=== PATIENT | female | born 1945 | race Caucasian/White ===

== ENCOUNTER 2016-12-02 01:38 | Inpatient (IN) | payer OTHER ==
[2016-12-02] VITALS (12 sets, daily range): BP systolic 99–146; BP diastolic 64–80; PULSE 65–83; TEMP 36.7–36.8; O2SAT 93–99; BMI 38.0
[~2016-12-02] VITALS: Ht 167.6 cm; Wt 106.8 kg
[~2016-12-02 01:38] MED LIST: ALBU0.08 INH; ALBUAER2 INH; AMIT25TA19 PO; CLOT10TR2 MT; CYCL-259 PO; DIGO0.122 PO; MECL1TAB42 PO; OMEP20TA PO; OXGN; OXYC1TAB3 PO; OXYC40TA34 PO; PRED-301 PO; SYN150 PO; VTMD PO; [UNRECOGNIZED DRUG - CODE] PO
[2016-12-02 02:56] LABS: BASO % 0.1 %; BASO ABS # 0.02 K/uL (0-0.2); COMPLETE YES; EOS % 0.9 %; HEMATOCRIT 40.4 % (37-47); IG% 0.3 %; LYMPH % 11.2 %; LYMPH ABS # 1.56 K/uL (1.2-3.4); MEAN CELL VOLUME 89.2 fL (80-100); MEAN CORPUSCULAR HEMOGLOBIN 29.1 pg (25-34); MEAN CORPUSCULAR HGB CONC 32.7 g/dl (32-36); MEAN PLATELET VOLUME 10.1 fL (7.4-10.4); MONO % 10.7 %; NEUT % 76.8 %; PLATELET COUNT 189 K/uL (130-400); RED BLOOD COUNT 4.53 M/uL (4.2-5.4); WHITE BLOOD COUNT 13.96 K/uL (4.8-10.8)
[2016-12-02 03:02] LABS: ALT/SGPT 38 U/L (12-78); AST/SGOT 28 U/L (15-37); BLOOD UREA NITROGEN 19 mg/dl (7-18); BUN/CREATININE RATIO 11.1 (10-20); CALCIUM 9.2 mg/dl (8.5-10.1); CARBON DIOXIDE 31 mmol/L (21-32); CHLORIDE 94 mmol/L (98-107); GLUCOSE 163 mg/dl (70-99); POTASSIUM 4.7 mmol/L (3.5-5.1); SODIUM 134 mmol/L (136-145)
[2016-12-02 03:07] LABS: ALKALINE PHOSPHATASE 76 U/L (45-117)
[2016-12-02 03:37] LABS: MANUAL MICROSCOPIC REQUIRED? YES; URINE APPEARANCE CLEAR (CLEAR); URINE BILIRUBIN NEG (NEG); URINE COLOR YELLOW; URINE NITRITE NEG (NEG); URINE SPECIFIC GRAVITY 1.025 (1.000-1.030); UROBILINOGEN NEG (NEG)
[2016-12-02 03:40] LABS: REVIEW REQ? NO
[2016-12-02 03:52] LABS: URINE WBC >30 /hpf (0-5)
[2016-12-02 03:53] LABS: URINE BACTERIA 4+ (NEG); ZZUR CULT IF INDIC CLEAN CATCH YES
[2016-12-02] MEDS ORDERED: CEFTRIAXONE SOD INJ 1 GM ADDVIAL IV STA (04:12)
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
[2016-12-02] MEDS ORDERED: GLUCOSE 10 TABS/TUBE PO PRN (05:00)
[2016-12-02] MEDS ORDERED: ACETAMINOPHEN 325 MG TAB PO PRN (05:00)
[2016-12-02] MEDS ORDERED: ONDANSETRON INJ 2 MG/ML 2 ML VIAL IV PRN (05:00)
[2016-12-02] MEDS ORDERED: DEXTROSE 50% 50 ML SYR IV PRN (05:00)
[2016-12-02] MEDS ORDERED: GLUCAGON FOR INJ 1 MG VIAL SQ PRN (05:00)
[2016-12-02] MEDS ORDERED: MAGNESIUM HYDROXIDE SUSP 30 ML UDC PO PRN (05:00)
[2016-12-02] MEDS ORDERED: ALUMINUM/MAGNESIUM/SIMETH (MAALOX MAX) 30 ML UDC PO PRN (05:00)
[2016-12-02] MEDS ORDERED: GLUCOSE 40% GEL 15 GM TUBE PO PRN (05:00)
[2016-12-02] MEDS ORDERED: OXYCODONE HCL IR 5 MG TAB (IMMEDIATE RELEASE) PO PRN ×2 (05:15→05:45)
[2016-12-02] MEDS ORDERED: MECLIZINE HCL 12.5 MG TAB PO PRN (05:15)
[2016-12-02] MEDS ORDERED: ALBUTEROL HFA 8 GM INHALER INH PRN (05:15)
[2016-12-02] MEDS: LEVOTHYROXINE 175 MCG TAB PO SCH (06:45)
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
[2016-12-02] MEDS: ALBUTEROL 0.083% NEBU SOLN 3 ML VIAL INH SCH ×4 (07:46→19:50)
[2016-12-02] MEDS: SODIUM CHLORIDE 0.9% 1000ML 1,000 ML IV SCH ×2 (07:52→16:44)
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
[2016-12-02] MEDS: CYCLOBENZAPRINE HCL 10 MG TAB PO SCH ×2 (08:53→20:19)
[2016-12-02] MEDS: PANTOprazole SOD 40 MG TAB PO SCH ×2 (08:53→20:19)
[2016-12-02] MEDS: OXYCODONE HCL 20 MG TABCR (OXYCONTIN) PO SCH ×3 (08:54→20:19)
[2016-12-02] MEDS ORDERED: CHROMIUM PICOLINATE PO SCH (09:00)
[2016-12-02] MEDS ORDERED: LEVOTHYROXINE 150 MCG TAB PO SCH (09:00)
[2016-12-02] MEDS: INSULIN HUMAN REGULAR SC SCH ×4 (09:06→20:31)
[2016-12-02] MEDS: POLYETHYLENE (MIRALAX) 17 GM PACK PO PRN (09:09)
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
[2016-12-02] MEDS: DIGOXIN 0.125 MG TAB PO SCH ×2 (16:46→16:51)
[2016-12-02] MEDS: PHENAZOPYRIDINE HCL 200 MG TAB PO PRN (20:18)
[2016-12-02] MEDS: AMITRIPTYLINE HCL 25 MG TAB PO SCH (20:19)
[2016-12-02] MEDS: CARVEDILOL 3.125 MG TAB PO SCH (20:25)
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
[2016-12-03] VITALS (9 sets, daily range): BP systolic 116–154; BP diastolic 49–82; PULSE 61–78; TEMP 36.6–36.9; O2SAT 93–98
[2016-12-03] MEDS: SODIUM CHLORIDE 0.9% 1000ML 1,000 ML IV SCH ×3 (02:34→22:46)
[2016-12-03] MEDS: PHENAZOPYRIDINE HCL 200 MG TAB PO PRN ×2 (03:10→11:44)
[2016-12-03 03:40] LABS: MANUAL MICROSCOPIC REQUIRED? YES; URINE APPEARANCE CLEAR (CLEAR); URINE BILIRUBIN NEG (NEG); URINE COLOR YELLOW; URINE NITRITE POS (NEG); URINE SPECIFIC GRAVITY <= 1.005 (1.000-1.030); UROBILINOGEN NEG (NEG)
[2016-12-03 03:41] LABS: REVIEW REQ? NO
[2016-12-03 03:50] LABS: URINE BACTERIA 1+ (NEG); URINE RBC 0-4 /hpf (0-4); URINE WBC >30 /hpf (0-5)
[2016-12-03 03:52] LABS: ZZURINE CULT IF INDIC CATH YES
[2016-12-03 05:49] LABS: HEMATOCRIT 32.9 % (37-47); MEAN CELL VOLUME 91.4 fL (80-100); MEAN CORPUSCULAR HEMOGLOBIN 28.9 pg (25-34); MEAN CORPUSCULAR HGB CONC 31.6 g/dl (32-36); MEAN PLATELET VOLUME 9.9 fL (7.4-10.4); PLATELET COUNT 135 K/uL (130-400)
[2016-12-03 06:07] LABS: BUN/CREATININE RATIO 12.1 (10-20); CALCIUM 8.5 mg/dl (8.5-10.1); CREATININE 1.2 mg/dl (0.60-1.20); POTASSIUM 4.4 mmol/L (3.5-5.1)
[2016-12-03] MEDS: CEFTRIAXONE SOD INJ 1 GM in DEXTROSE 5% ADD-VANTAGE 50ML 50 ML IV SCH (06:14)
[2016-12-03] MEDS: LEVOTHYROXINE 175 MCG TAB PO SCH (06:14)
[2016-12-03] MEDS: ALBUTEROL 0.083% NEBU SOLN 3 ML VIAL INH SCH ×4 (07:32→20:29)
[2016-12-03] MEDS: INSULIN HUMAN REGULAR SC SCH ×4 (09:28→20:57)
[2016-12-03] MEDS: PANTOprazole SOD 40 MG TAB PO SCH ×2 (09:29→20:55)
[2016-12-03] MEDS: CYCLOBENZAPRINE HCL 10 MG TAB PO SCH ×2 (09:29→20:57)
[2016-12-03] MEDS: OXYCODONE HCL 20 MG TABCR (OXYCONTIN) PO SCH ×3 (09:34→20:55)
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
[2016-12-03] MEDS: DIGOXIN 0.125 MG TAB PO SCH (16:12)
[2016-12-03] MEDS: POLYETHYLENE (MIRALAX) 17 GM PACK PO PRN (20:54)
[2016-12-03] MEDS: CARVEDILOL 3.125 MG TAB PO SCH (20:56)
[2016-12-03] MEDS: AMITRIPTYLINE HCL 25 MG TAB PO SCH (20:57)
[2016-12-04] VITALS (7 sets, daily range): BP systolic 103–146; BP diastolic 49–75; PULSE 61–76; TEMP 36.5–36.7; O2SAT 93–98; Ht 167.6 cm; Wt 106.8 kg
[2016-12-04 05:43] LABS: HEMATOCRIT 33.2 % (37-47); MEAN CELL VOLUME 92.7 fL (80-100); MEAN CORPUSCULAR HEMOGLOBIN 29.1 pg (25-34); MEAN CORPUSCULAR HGB CONC 31.3 g/dl (32-36); MEAN PLATELET VOLUME 9.9 fL (7.4-10.4); PLATELET COUNT 128 K/uL (130-400); RED BLOOD COUNT 3.58 M/uL (4.2-5.4); WHITE BLOOD COUNT 3.99 K/uL (4.8-10.8)
[2016-12-04] MEDS: CEFTRIAXONE SOD INJ 1 GM in DEXTROSE 5% ADD-VANTAGE 50ML 50 ML IV SCH (05:53)
[2016-12-04] MEDS: LEVOTHYROXINE 175 MCG TAB PO SCH (05:53)
[2016-12-04 06:14] LABS: BUN/CREATININE RATIO 12.5 (10-20); CALCIUM 8.6 mg/dl (8.5-10.1); MAGNESIUM 1.7 mg/dl (1.8-2.4); POTASSIUM 4.5 mmol/L (3.5-5.1)
[2016-12-04] MEDS: ALBUTEROL 0.083% NEBU SOLN 3 ML VIAL INH SCH ×4 (07:18→19:21)
[2016-12-04] MEDS: SODIUM CHLORIDE 0.9% 1000ML 1,000 ML IV SCH (08:42)
[2016-12-04] MEDS: CYCLOBENZAPRINE HCL 10 MG TAB PO SCH ×2 (08:43→21:06)
[2016-12-04] MEDS: OXYCODONE HCL 20 MG TABCR (OXYCONTIN) PO SCH ×3 (08:43→21:06)
[2016-12-04] MEDS: INSULIN HUMAN REGULAR SC SCH ×4 (08:45→21:00)
[2016-12-04] MEDS: PANTOprazole SOD 40 MG TAB PO SCH ×2 (10:27→21:07)
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
[2016-12-04] MEDS ORDERED: MAGNESIUM OXIDE 400 MG TAB PO ONE (14:30)
[2016-12-04] MEDS: LEVOFLOXACIN / D5W 500 MG in PREMIXED IN D5W 100 ML IV SCH (14:32)
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
[2016-12-04] MEDS: DIGOXIN 0.125 MG TAB PO SCH (17:42)
[2016-12-04] MEDS: AMITRIPTYLINE HCL 25 MG TAB PO SCH (21:05)
[2016-12-04] MEDS: CARVEDILOL 3.125 MG TAB PO SCH (21:06)
[2016-12-04] MEDS: MAGNESIUM OXIDE 400 MG TAB PO SCH (21:10)
[2016-12-05] MEDS: LEVOTHYROXINE 175 MCG TAB PO SCH (06:15)
[2016-12-05 06:20] LABS: HEMATOCRIT 34.2 % (37-47); MEAN CELL VOLUME 91.4 fL (80-100); MEAN CORPUSCULAR HEMOGLOBIN 29.1 pg (25-34); MEAN CORPUSCULAR HGB CONC 31.9 g/dl (32-36); MEAN PLATELET VOLUME 10.1 fL (7.4-10.4); PLATELET COUNT 152 K/uL (130-400); RED BLOOD COUNT 3.74 M/uL (4.2-5.4); WHITE BLOOD COUNT 3.66 K/uL (4.8-10.8)
[2016-12-05 07:10] LABS: CALCIUM 8.7 mg/dl (8.5-10.1); CREATININE 0.98 mg/dl (0.60-1.20); MAGNESIUM 1.6 mg/dl (1.8-2.4); POTASSIUM 3.9 mmol/L (3.5-5.1)
[2016-12-05 07:26] VITALS: PULSE 71; O2SAT 94
[2016-12-05] MEDS: ALBUTEROL 0.083% NEBU SOLN 3 ML VIAL INH SCH ×4 (07:26→19:53)
[2016-12-05 08:15] VITALS: BP 125/74; PULSE 76; TEMP 35.3; O2SAT 96
[2016-12-05] MEDS: PANTOprazole SOD 40 MG TAB PO SCH ×2 (08:22→21:04)
[2016-12-05] MEDS: MAGNESIUM OXIDE 400 MG TAB PO SCH ×2 (08:22→21:04)
[2016-12-05] MEDS: CYCLOBENZAPRINE HCL 10 MG TAB PO SCH ×2 (08:22→21:04)
[2016-12-05] MEDS: OXYCODONE HCL 20 MG TABCR (OXYCONTIN) PO SCH ×3 (08:23→21:02)
[2016-12-05] MEDS: INSULIN HUMAN REGULAR SC SCH ×4 (08:25→20:55)
[2016-12-05] MEDS ORDERED: MAGNESIUM SULFATE 1GM / D5W 1 GM in PREMIXED IN D5W 100 ML IV ONE (12:00)
[2016-12-05] MEDS: LEVOFLOXACIN / D5W 500 MG in PREMIXED IN D5W 100 ML IV SCH (14:08)
[2016-12-05 15:46] VITALS: BP 112/66; PULSE 81; TEMP 36.4; O2SAT 91
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
[2016-12-05] MEDS: NYSTATIN SUSP 500,000 U/5 ML UDC PO SCH ×2 (17:31→21:04)
[2016-12-05 19:53] VITALS: PULSE 80; O2SAT 94
[2016-12-05] MEDS: SPIRONOLACTONE 25 MG TAB PO SCH (21:04)
[2016-12-05] MEDS: AMITRIPTYLINE HCL 25 MG TAB PO SCH (21:05)
[2016-12-05] MEDS: CARVEDILOL 3.125 MG TAB PO SCH (21:05)
[2016-12-06 00:07] VITALS: BP 155/85; PULSE 85; TEMP 36.6; O2SAT 95
[2016-12-06] MEDS: LEVOTHYROXINE 175 MCG TAB PO SCH (06:23)
[2016-12-06 07:30] LABS: HEMATOCRIT 34.2 % (37-47); MEAN CELL VOLUME 90.7 fL (80-100); MEAN CORPUSCULAR HEMOGLOBIN 28.9 pg (25-34); MEAN CORPUSCULAR HGB CONC 31.9 g/dl (32-36); MEAN PLATELET VOLUME 9.5 fL (7.4-10.4); PLATELET COUNT 162 K/uL (130-400); RED BLOOD COUNT 3.77 M/uL (4.2-5.4); WHITE BLOOD COUNT 3.54 K/uL (4.8-10.8)
[2016-12-06 07:49] VITALS: BP 111/60; PULSE 72; TEMP 36.6; O2SAT 94
[2016-12-06 07:50] VITALS: PULSE 75; O2SAT 94
[2016-12-06] MEDS: ALBUTEROL 0.083% NEBU SOLN 3 ML VIAL INH SCH ×3 (07:50→15:27)
[2016-12-06 08:02] LABS: BUN/CREATININE RATIO 14.3 (10-20); CREATININE 0.92 mg/dl (0.60-1.20); MAGNESIUM 1.8 mg/dl (1.8-2.4); POTASSIUM 3.9 mmol/L (3.5-5.1)
[2016-12-06] MEDS: CYCLOBENZAPRINE HCL 10 MG TAB PO SCH ×2 (08:38→21:11)
[2016-12-06] MEDS: MAGNESIUM OXIDE 400 MG TAB PO SCH ×2 (08:38→21:11)
[2016-12-06] MEDS: OXYCODONE HCL 20 MG TABCR (OXYCONTIN) PO SCH ×3 (08:38→21:12)
[2016-12-06] MEDS: NYSTATIN SUSP 500,000 U/5 ML UDC PO SCH ×4 (08:39→21:00)
[2016-12-06] MEDS: PANTOprazole SOD 40 MG TAB PO SCH ×2 (08:39→21:11)
[2016-12-06] MEDS: SPIRONOLACTONE 25 MG TAB PO SCH ×2 (08:39→21:11)
[2016-12-06] MEDS: INSULIN HUMAN REGULAR SC SCH ×4 (08:40→21:00)
[2016-12-06] MEDS ORDERED: LEVOFLOXACIN 500 MG TAB PO SCH (11:00)
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
[2016-12-06] MEDS ORDERED: LVQ500 PO ×2 (14:47→15:00)
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
[2016-12-06 16:55] VITALS: BP 111/60; PULSE 75; TEMP 36.6; O2SAT 94
[2016-12-06 20:02] VITALS: BP 116/75; PULSE 68; TEMP 36.7; O2SAT 97
[2016-12-06] MEDS: AMITRIPTYLINE HCL 25 MG TAB PO SCH (21:11)
[2016-12-06] MEDS: CARVEDILOL 3.125 MG TAB PO SCH (21:11)
[2017-02-14] MEDS ORDERED: PRMVC TOP (05:02)
[2017-02-14] MEDS ORDERED: MAGN400T6 PO (05:09)
[2017-02-14] MEDS ORDERED: OXYC60TA8 PO (05:12)
[2017-02-14] MEDS ORDERED: SPIR25TA PO (05:20)
[2017-02-14] MEDS ORDERED: METF500T PO (05:28)
[2017-02-14] MEDS ORDERED: OXYC-164 PO (16:35)
[2017-02-14] MEDS ORDERED: LEVO175T PO (16:35)
[2017-02-14] MEDS ORDERED: CARV3.122 PO (16:35)
[2017-02-14] MEDS ORDERED: FRS/40 PO (16:35)
[2017-02-14] MEDS ORDERED: POTA10CA28 PO (16:35)
== END 2016-12-06 22:00 | disposition home or self-care (01) | DRG 690 ==
LOC: ENRESERVDT → ENRESERVTM → C.EDB 01:39 → C.MED 04:53
PROVIDERS: ADMIT Hospitalist; ATTEND Internal Medicine
DX: N39.0 Urinary tract infection, site not specified (principal); N17.9 Acute kidney failure, unspecified; E87.1 Hypo-osmolality and hyponatremia; B37.0 Candidal stomatitis; J44.9 Chronic obstructive pulmonary disease, unspecified; M19.90 Unspecified osteoarthritis, unspecified site; I12.9 Hypertensive chronic kidney disease with stage 1 through stage 4 chronic kidney disease, or unspecified chronic kidney disease; E03.9 Hypothyroidism, unspecified; D72.829 Elevated white blood cell count, unspecified; Z88.6 Allergy status to analgesic agent; Z91.041 Radiographic dye allergy status; Z88.0 Allergy status to penicillin; Z88.2 Allergy status to sulfonamides; Z91.048 Other nonmedicinal substance allergy status; Z88.5 Allergy status to narcotic agent; Z99.81 Dependence on supplemental oxygen; Z79.84 Long term (current) use of oral hypoglycemic drugs; F41.9 Anxiety disorder, unspecified; R30.0 Dysuria; R35.0 Frequency of micturition; R32 Unspecified urinary incontinence; N81.4 Uterovaginal prolapse, unspecified; E11.9 Type 2 diabetes mellitus without complications; B96.5 Pseudomonas (aeruginosa) (mallei) (pseudomallei) as the cause of diseases classified elsewhere; E11.22 Type 2 diabetes mellitus with diabetic chronic kidney disease; N18.3 Chronic kidney disease, stage 3 (moderate); N81.10 Cystocele, unspecified; S80.11XA Contusion of right lower leg, initial encounter; V47.5XXA Car driver injured in collision with fixed or stationary object in traffic accident, initial encounter; Y92.410 Unspecified street and highway as the place of occurrence of the external cause

== ENCOUNTER 2017-01-04 18:14 | Observation (INO) | payer OTHER ==
[~2017-01-04] VITALS: Ht 167.6 cm; Wt 100.0 kg
[~2017-01-04 18:14] MED LIST changes: -AMIT25TA19 PO; -DIGO0.122 PO; +LVQ500 PO; -OMEP20TA PO; -OXYC1TAB3 PO; -OXYC40TA34 PO; -PRED-301 PO; -SYN150 PO; -[UNRECOGNIZED DRUG - CODE] PO
[2017-01-04] MEDS ORDERED: SODIUM CHLORIDE 0.9% 1000ML 1,000 ML IV STA (19:58)
[2017-01-04] MEDS ORDERED: SODIUM CHLORIDE 0.9% 1000ML 1,000 ML IV ONE (19:58)
[2017-01-04] MEDS ORDERED: ONDANSETRON INJ 2 MG/ML 2 ML VIAL IV STA (19:58)
--- NOTE | 2017-01-04 20:05 | EMERGENCY ROOM VISIT NOTE ---
History Report prepared by Gómez: Naa Ruiz Under the Supervision of: Dr. Joon Rojas M.D. First contact with patient: 19:53 Chief Complaint: VOMITING Stated Complaint: ALLERGRIC REACTION Nursing Triage Summary: Pt placed on keflex on Saturday Pt c/o vomiting and dizzy History of Present Illness The patient is a 71 year old female who presents to the Emergency Room with complaints of worsening vomiting and dizziness with onset six days ago. The patient has a history of a cystocele and has had persistent UTIs. Six days ago, the patient was placed on Keflex. Starting three days ago, she has been vomiting and has been dizzy and incontinent of urine. The patient stopped the antibiotic three days ago. Yesterday, the patient started to feel better. She was prescribed another antibiotic, Macrobid, and started to feel ill again. She has back pain. She denies diarrhea, fevers, a rash, chest pain. Additionally, the patient wears oxygen at all times. Source of History: patient, family Onset: six days ago Position: abdomen Quality: other (vomiting and dizziness) Timing: worsening Associated Symptoms: No chest pain, No diarrhea, No fevers, No rash Note: She has been dizzy and incontinent of urine. Review of Systems See HPI for pertinent positives & negatives. A total of 10 systems reviewed and were otherwise negative. Past Medical & Surgical Medical Problems: (1) Abdominal pain (2) Asthma (3) COPD (chronic obstructive pulmonary disease) Old medical records were reviewed. Nurse's notes were reviewed and I agree with. Family History Diabetes mellitus FH: heart disease FHx: cancer Social History Smoking Status: Never Smoker Drug Use: none Marital Status: Occupation Status: retired Current/Historical Medications Scheduled Albuterol (Ventolin), 2 PUFFS INH QID PRN Albuterol Soln (Proventil 0.083% 2.5MG/3ML), 2.5 MG INH QID Carvedilol (Coreg), 2 TAB PO HS Clotrimazole (Mycelex), 10 MG MT 5XD Cyclobenzaprine Hcl (Flexeril), 10 MG PO BID Ergocalciferol (Vitamin D), 1 TAB PO 2XWK Estrogens, Conjugated (Premarin), 1 APPLN TOP 3XWK Levofloxacin (Levofloxacin), 500 MG PO DAILY@11 Levothyroxine Sodium (Synthroid), 1 TAB PO DAILY Magnesium Oxide (Mag-Ox), 400 MG PO DAILY Meclizine Hcl (Meclizine Hcl), 25 PO TID Metformin Hcl (Glucophage), 500 MG PO BID Ondasetron Odt (Zofran Odt), 4 MG SL Q6H Oxycodone Hcl (Oxycontin), 60 MG PO Q12 Oxygen (Oxygen), 2 LITERS NA CONTINOUS Potassium Chloride (Micro-K Ext Rel), 10 MEQ PO DAILY Spironolactone (Aldactone), 25 MG PO BID Scheduled PRN Furosemide (Lasix), 40 MG PO DAILY PRN for edema Oxycodone Hcl (Oxycodone Hcl), 1 TAB PO Q4H PRN for Pain Allergies Coded Allergies: Aspartame (Verified Allergy, Intermediate, ???, 11/16/15) Ipratropium (Verified Allergy, Mild, SHORTNESS OF BREATH, 11/16/15) Povidone (Verified Allergy, Mild, BLISTER WITH TAPE, 11/16/15) Aspirin (Verified Allergy, Unknown, 11/16/15) Chlorhexidine (Verified Allergy, Unknown, 11/16/15) Iodinated Contrast Media (Verified Allergy, Unknown, -, 11/16/15) Meperidine (Verified Allergy, Unknown, 11/16/15) Morphine (Verified Allergy, Unknown, 11/16/15) NSAIDs (Verified Allergy, Unknown, -, 11/16/15) Penicillins (Verified Allergy, Unknown, 11/16/15) Sulfa Drugs (Verified Allergy, Unknown, 11/16/15) Adhesives (Verified Adverse Reaction, Mild, BLISTERS WITH TAPE, 11/16/15) Physical Exam Vital Signs Date Time Temp Pulse Resp B/P Pulse Ox O2 Delivery O2 Flow Rate FiO2 01/05/17 02:38 77 20 118/57 97 Nasal Cannula 4.0 01/05/17 01:42 71 20 120/51 97 Nasal Cannula 4.0 01/04/17 23:57 72 20 125/70 99 Nasal Cannula 4.0 01/04/17 22:27 74 20 101/57 96 01/04/17 20:55 78 20 117/70 96 01/04/17 18:34 37.4 97 18 119/60 91 Nasal Cannula 3.0 Physical Exam General: Non ill appearing older female in no acute distress. HEENT: Normal cephalic atraumatic. Pupils are equal round and reactive to light. Sclerae anicteric. Extraocular movements are intact. Oropharynx is pink with moist mucous membranes. No swelling of the mouth lips or tongue. Neck: Supple with a midline trachea. No meningeal signs or stiffness, no JVD or bruits. No Stridor. Chest: Clear to auscultation bilaterally. No wheezes or rhonchi. No increased work of breathing. Heart: regular rate and rhythm. Abdomen: Soft nontender, nondistended without rebound guarding or rigidity. Extremities: No cyanosis clubbing or edema. No calf tenderness or assymetry Spine/Back. Non tender to palpation. No CVA tenderness Skin: Good turgor without rashes. Neurologic exam: Cranial nerves two through 12 are intact. Motor and sensation are intact and symmetrical throughout. Medical Decision & Procedures ER Provider Diagnostic Interpretation: X-ray results as stated below per interpretation by me and the radiologist. CT results as stated below per my review and radiologist interpretation: CHEST ONE VIEW PORTABLE CLINICAL HISTORY: CHEST PAIN dyspnea COMPARISON STUDY: 12/02/2016 FINDINGS: Chronic left perihilar fibrotic scarring. Chronic interstitial change medial right base. Baseline emphysematous change. IMPRESSION: Emphysematous and chronic fibrotic change. No acute process. Electronically signed by: Massimo Petit M.D. 01/04/2017 8:25 PM Dictated Date/Time: 01/04/2017 8:[address] Abdomen and Pelvis: Comparison CT a/p 12/02/2016 No evidence of bowel obstruction. No free air. No morphologic evidence of cirrhosis. Circumferential bladder wall thickening, slight asymmetric anteriorly with pericystic fat stranding. Correlate for cystitis. Recommend cystoscopy or imaging follow-up to exclude underlying lesion. Colonic diverticulosis without evidence of diverticulitis. Appendix is not seen. No right lower quadrant inflammatory changes to suggest appendicitis. Hepatic steatosis. Gallbladder is surgically absent. Fatty atrophy of the pancreas. Small hiatal hernia. Radiologist: Gulshan Palmer MD. Laboratory Results 01/04/17 20:30 Red Blood Count 4.38, Mean Corpuscular Volume 86.5, Mean Corpuscular Hemoglobin 28.8, Mean Corpuscular Hemoglobin Concent 33.2, Mean Platelet Volume 10.5, Neutrophils (%) (Auto) 89.3, Lymphocytes (%) (Auto) 1.9, Monocytes (%) (Auto) 8.5, Eosinophils (%) (Auto) 0.1, Basophils (%) (Auto) 0.0, Neutrophils # (Auto) 9.45, Lymphocytes # (Auto) 0.20, Monocytes # (Auto) 0.90, Eosinophils # (Auto) 0.01, Basophils # (Auto) 0.00 01/04/17 20:30 Test 01/04/17 18:38 01/04/17 20:30 01/04/17 20:37 01/04/17 21:53 Bedside Glucose 196 mg/dl (70-90) White Blood Count 10.58 K/uL (4.8-10.8) Red Blood Count 4.38 M/uL (4.2-5.4) Hemoglobin 12.6 g/dL (12.0-16.0) Hematocrit 37.9 % (37-47) Mean Corpuscular Volume 86.5 fL (80-100) Mean Corpuscular Hemoglobin 28.8 pg (25-34) Mean Corpuscular Hemoglobin Concent 33.2 g/dl (32-36) Platelet Count 129 K/uL (130-400) Mean Platelet Volume 10.5 fL (7.4-10.4) Neutrophils (%) (Auto) 89.3 % Lymphocytes (%) (Auto) 1.9 % Monocytes (%) (Auto) 8.5 % Eosinophils (%) (Auto) 0.1 % Basophils (%) (Auto) 0.0 % Neutrophils # (Auto) 9.45 K/uL (1.4-6.5) Lymphocytes # (Auto) 0.20 K/uL (1.2-3.4) Monocytes # (Auto) 0.90 K/uL (0.11-0.59) Eosinophils # (Auto) 0.01 K/uL (0-0.5) Basophils # (Auto) 0.00 K/uL (0-0.2) RDW Standard Deviation 40.9 fL (36.4-46.3) RDW Coefficient of Variation 12.8 % (11.5-14.5) Immature Granulocyte % (Auto) 0.2 % Immature Granulocyte # (Auto) 0.02 K/uL (0.00-0.02) Anion Gap 9.0 mmol/L (3-11) Estimated GFR () 53.4 Estimated GFR (Non- 46.1 BUN/Creatinine Ratio 13.5 (10-20) Calcium Level 9.2 mg/dl (8.5-10.1) Magnesium Level 1.5 mg/dl (1.8-2.4) Total Bilirubin 0.7 mg/dl (0.2-1) Direct Bilirubin 0.2 mg/dl (0-0.2) Aspartate Amino Transf (AST/SGOT) 315 U/L (15-37) Alanine Aminotransferase (ALT/SGPT) 225 U/L (12-78) Alkaline Phosphatase 141 U/L (45-117) Total Creatine Kinase 34 U/L (26-192) Creatine Kinase MB 0.5 ng/ml (0.5-3.6) Creatine Kinase MB Ratio 1.5 (0-3.0) Total Protein 7.0 gm/dl (6.4-8.2) Albumin 3.4 gm/dl (3.4-5.0) Lipase 56 U/L (73-393) Bedside Troponin I 0.000 ng/ml (0-0.045) Urine Color DK YELLOW Urine Appearance CLEAR (CLEAR) Urine pH 5.5 (4.5-7.5) Urine Specific [place] 1.017 (1.000-1.030) Urine Protein NEG (NEG) Urine Glucose (UA) NEG (NEG) Urine Ketones NEG (NEG) Urine Occult Blood NEG (NEG) Urine Nitrite NEG (NEG) Urine Bilirubin NEG (NEG) Urine Urobilinogen NEG (NEG) Urine Leukocyte Esterase NEG (NEG) Laboratory studies as stated above per my review. Medications Administered Medications (Trade) Dose Ordered Sig/John Route Start Time Stop Time Status Last Admin Dose Admin Sodium Chloride 1,000 ml @ 999 mls/hr Q1H1M STAT IV 01/04/17 19:58 01/04/17 20:58 DC 01/04/17 19:58 999 MLS/HR Sodium Chloride (Nss 1000ml) 1,000 ml @ 150 mls/hr Q6H40M ONCE IV 01/04/17 19:58 01/05/17 02:37 DC 01/04/17 19:58 150 MLS/HR Ondansetron HCl (Zofran Inj) 4 mg NOW STAT IV 01/04/17 19:58 01/04/17 20:04 DC 01/04/17 19:58 4 MG ECG Indication: vomiting Rate (beats per minute): 83 Rhythm: normal sinus Findings: no acute ischemic change, left axis deviation, no ectopy Comparison ECG Date: 11/27/2016 Change: no significant change ED Course 1955: Past medical records reviewed. The patient was evaluated in room C7, and a complete history and physical examination were performed. 1957: Zofran 4 mg IV, Sodium Chloride 1000 ml @ 150 mls/hr IV, Sodium Chloride 1000 ml @ 999 mls/hr IV 2306: I reevaluated the patient; her LFTs are mildly elevated. A CT will be obtained. 0003: Zofran 4 mg IV 0010: Upon reevaluation, the patient is doing well. I discussed the results and treatment plan with the patient. She verbalized agreement of the treatment plan. The patient is ready for discharge. 0015: Zofran 1 homepack PO 0044: I reevaluated the patient. She states she feels nauseated when she walks and feels too ill to go home. 0050: I discussed the case with Dr. Strauss ([facility]); he will further evaluate the patient. Medical Decision Differentials include, but are not limited to; dehydration, UTI, medication side effect, pneumonia, electrolyte or metabolic abnormality, acute coronary syndrome. This patient comes in as described above. She was placed room C7. She is here for treatment and evaluation of nausea. She may have some urinary symptoms as well. She's been treated for UTI and they've switched her with antibiotics. She has nausea and vomiting which she relates to the antibiotics. IV access established, EKG was obtained. Chest x-ray multiple blood tests was obtained. Chest x-ray does not suggest congestive heart failure, pneumonia or pneumothorax. EKG does not suggest acute coronary syndrome or arrhythmia. Troponin is not elevated. She's had no white count or fever to suggest infection. She's no significant electrolyte or metabolic abnormalities. Her LFTs are mildly elevated . I did a CT of her abdomen and there is no acute findings to explain her symptoms. She does have some irritation of her bladder potentially although her urinalysis thus far looks negative. She was hydrated with IV normal saline and was given IV Zofran. She was feeling better until she got up she felt nauseated and have some cramps in her bladder. She does not feel she can go home. I have consulted Dr. Richardson who saw the patient ER will admit her for further treatment and evaluation Consults Time Called: 47 Consulting Physician: Dr. Strauss ([facility]) Returned Call: 49 I discussed the case with Dr. Strauss ([facility]); he will further evaluate the patient. Impression Primary Impression: Vomiting Additional Impression: Bladder spasm Scribe Attestation The scribe's documentation has been prepared under my direction and personally reviewed by me in its entirety. I confirm that the note above accurately reflects all work, treatment, procedures, and medical decision making performed by me. Departure Information Dispostion Being Evaluated By Hospitalist Prescriptions Ondasetron Odt (ZOFRAN ODT) 4 Mg Tab 4 MG SL Q6H for Nausea, #14 TAB Prov: Joon Rojas M.D. 01/05/17 Referrals No Doctor, Assigned (PCP) Patient Instructions [facility] Problem Qualifiers
--- NOTE | 2017-01-04 20:26 | DIAGNOSTIC IMAGING REPORT ---
CHEST ONE VIEW PORTABLE CLINICAL HISTORY: CHEST PAIN dyspnea COMPARISON STUDY: 12/02/2016 FINDINGS: Chronic left perihilar fibrotic scarring. Chronic interstitial change medial right base. Baseline emphysematous change. IMPRESSION: Emphysematous and chronic fibrotic change. No acute process. Electronically signed by: Massimo Petit M.D. 01/04/2017 8:25 PM Dictated Date/Time: 01/04/2017 8:23 PM
[2017-01-04 20:43] LABS: COMPLETE YES; EOS % 0.1 %; HEMATOCRIT 37.9 % (37-47); IG% 0.2 %; LYMPH % 1.9 %; MEAN CELL VOLUME 86.5 fL (80-100); MEAN CORPUSCULAR HEMOGLOBIN 28.8 pg (25-34); MEAN CORPUSCULAR HGB CONC 33.2 g/dl (32-36); MEAN PLATELET VOLUME 10.5 fL (7.4-10.4); MONO % 8.5 %; NEUT % 89.3 %; PLATELET COUNT 129 K/uL (130-400); RED BLOOD COUNT 4.38 M/uL (4.2-5.4); WHITE BLOOD COUNT 10.58 K/uL (4.8-10.8)
[2017-01-04 21:11] LABS: ALT/SGPT 225 U/L (12-78); BLOOD UREA NITROGEN 16 mg/dl (7-18); BUN/CREATININE RATIO 13.5 (10-20); CALCIUM 9.2 mg/dl (8.5-10.1); CARBON DIOXIDE 30 mmol/L (21-32); CHLORIDE 96 mmol/L (98-107); GLUCOSE 195 mg/dl (70-99); POTASSIUM 4.1 mmol/L (3.5-5.1); SODIUM 135 mmol/L (136-145)
[2017-01-04 21:16] LABS: ALKALINE PHOSPHATASE 141 U/L (45-117); AST/SGOT 315 U/L (15-37); CKMB/CK RATIO 1.5 (0-3.0)
[2017-01-04 22:11] LABS: URINE APPEARANCE CLEAR (CLEAR); URINE BILIRUBIN NEG (NEG); URINE COLOR DK YELLOW; URINE NITRITE NEG (NEG); URINE PH 5.5 (4.5-7.5); URINE SPECIFIC GRAVITY 1.017 (1.000-1.030); UROBILINOGEN NEG (NEG)
[2017-01-04 22:17] LABS: MANUAL MICROSCOPIC REQUIRED? NO; REVIEW REQ? NO
[2017-01-05] MEDS ORDERED: ONDANSETRON INJ 2 MG/ML 2 ML VIAL IV STA (00:03)
[2017-01-05] MEDS ORDERED: ONDA4TAB10 SL (00:12)
[2017-01-05] MEDS ORDERED: ONDANSETRON HOME PACK 4MG OD TAB PO ONE (00:15)
[2017-01-05] MEDS ORDERED: TRAMADOL HCL 50 MG TAB PO SCH (01:43)
[2017-01-05] MEDS ORDERED: TRAMADOL HCL 50 MG TAB PO PRN (01:45)
[2017-01-05] MEDS ORDERED: IV FLUIDS COMPLETED PRN (02:00)
[2017-01-05] MEDS ORDERED: CARVEDILOL 3.125 MG TAB PO SCH ×2 (02:06→21:00)
[2017-01-05] MEDS ORDERED: HYDROmorphone INJ 0.5 MG/0.5 ML SYR IV PRN (02:15)
[2017-01-05] MEDS ORDERED: DEXTROSE 50% 50 ML SYR IV PRN (02:15)
[2017-01-05] MEDS ORDERED: GLUCAGON FOR INJ 1 MG VIAL SQ PRN (02:15)
[2017-01-05] MEDS ORDERED: SODIUM CHLORIDE 0.9% 1000ML 1,000 ML IV ONE (02:15)
[2017-01-05] MEDS ORDERED: PROMETHAZINE HCL INJ 12.5 MG in SODIUM CHLORIDE 0.9% 50ML 50 ML IV PRN (02:15)
[2017-01-05] MEDS ORDERED: ACETAMINOPHEN 325 MG TAB PO PRN (02:15)
[2017-01-05] MEDS ORDERED: MECLIZINE HCL 12.5 MG TAB PO PRN (02:15)
[2017-01-05] MEDS ORDERED: LORAZEPAM 2 MG/ML 1 ML VIAL IV PRN (02:15)
[2017-01-05] MEDS ORDERED: GLUCOSE 40% GEL 15 GM TUBE PO PRN (02:15)
[2017-01-05] MEDS ORDERED: LEVALBUTEROL/IPRATROPIUM NEB INH PRN (02:15)
[2017-01-05] MEDS ORDERED: ONDANSETRON INJ 2 MG/ML 2 ML VIAL IV PRN (02:15)
[2017-01-05] MEDS ORDERED: OXYCODONE HCL IR 5 MG TAB (IMMEDIATE RELEASE) PO PRN (02:15)
[2017-01-05] MEDS ORDERED: GLUCOSE 10 TABS/TUBE PO PRN (02:15)
[2017-01-05] MEDS ORDERED: POLYETHYLENE (MIRALAX) 17 GM PACK PO PRN (02:30)
[2017-01-05] MEDS ORDERED: MAGNESIUM SULFATE 1GM / D5W 1 GM BAG IV SCH (02:45)
[2017-01-05] MEDS ORDERED: LEVALBUTEROL/IPRATROPIUM NEB INH SCH (03:00)
[2017-01-05 03:13] VITALS: BP 126/76; PULSE 73; TEMP 36.8; O2SAT 100
[2017-01-05] MEDS: LEVALBUTEROL 1.25MG/3ML NEB INH SCH ×3 (03:30→14:04)
[2017-01-05] MEDS ORDERED: POLYETHYLENE (MIRALAX) 17 GM PACK PO SCH (03:37)
[2017-01-05] MEDS ORDERED: DOCUSATE SODIUM/SENNA 50/8.6MG TAB PO ONE (03:37)
[2017-01-05] MEDS ORDERED: LORAZEPAM INJ 0.5 MG in SYRINGE 0.75 ML IV PRN (03:45)
[2017-01-05] MEDS ORDERED: LEVALBUTEROL 1.25MG/3ML NEB INH PRN (03:45)
[2017-01-05] MEDS ORDERED: INSULIN ASPART 100 UNITS/ML 3 ML PEN SC ONE (04:00)
[2017-01-05] MEDS: MAGNESIUM SULFATE 1GM / D5W 1 GM in PREMIXED IN D5W 100 ML IV SCH ×2 (04:44→05:49)
[2017-01-05] MEDS: LEVOTHYROXINE 175 MCG TAB PO SCH (05:52)
--- NOTE | 2017-01-05 06:11 | DIAGNOSTIC IMAGING REPORT ---
ABDOMEN AND PELVIS CT WITHOUT CONTRAST CT DOSE: 867.37 mGy.cm HISTORY: Pain eval for liver disease, bowel obit TECHNIQUE: Multiaxial CT images of the abdomen and pelvis were performed without contrast. COMPARISON STUDY: 12/02/2016 FINDINGS: Lung bases are clear. Fatty infiltration of liver. Prior cholecystectomy. Kidneys negative for calcification or obstruction. Fatty infiltration of pancreas. Nonobstructive bowel pattern. Nonvisualization of the appendix. No evidence for right lower quadrant inflammatory process. Mild bladder wall thickening. No free fluid within the pelvic cul-de-sac. IMPRESSION: Prior cholecystectomy. Fatty infiltration of liver. Mild bladder wall thickening. Nonobstructive bowel pattern. Electronically signed by: Massimo Petit M.D. 01/05/2017 6:09 AM Dictated Date/Time: 01/05/2017 6:07 AM
[2017-01-05] MEDS: INSULIN ASPART 100 UNITS/ML 3 ML PEN SC SCH ×4 (06:30→20:48)
[2017-01-05 07:10] LABS: BASO % 0.2 %; BASO ABS # 0.01 K/uL (0-0.2); COMPLETE YES; EOS % 2.2 %; HEMATOCRIT 33.2 % (37-47); IG% 0.2 %; LYMPH % 10.5 %; LYMPH ABS # 0.58 K/uL (1.2-3.4); MEAN CELL VOLUME 87.4 fL (80-100); MEAN CORPUSCULAR HEMOGLOBIN 28.2 pg (25-34); MEAN CORPUSCULAR HGB CONC 32.2 g/dl (32-36); MONO % 13.4 %; NEUT % 73.5 %; PLATELET COUNT 102 K/uL (130-400); WHITE BLOOD COUNT 5.52 K/uL (4.8-10.8)
[2017-01-05 07:29] VITALS: BP_SYST 111; BP_SYST 126; BP_DIAS 67; BP_DIAS 76; PULSE 59; PULSE 73; TEMP 36.5; TEMP 36.8; O2SAT 98; Ht 167.6 cm; Wt 100.0 kg
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
[2017-01-05 07:41] LABS: ALT/SGPT 158 U/L (12-78); AST/SGOT 155 U/L (15-37); BLOOD UREA NITROGEN 17 mg/dl (7-18); BUN/CREATININE RATIO 18.2 (10-20); CALCIUM 8.3 mg/dl (8.5-10.1); CARBON DIOXIDE 34 mmol/L (21-32); CHLORIDE 98 mmol/L (98-107); CREATININE 0.94 mg/dl (0.60-1.20); GLUCOSE 114 mg/dl (70-99); MAGNESIUM 2.4 mg/dl (1.8-2.4); POTASSIUM 3.7 mmol/L (3.5-5.1); SODIUM 138 mmol/L (136-145)
[2017-01-05 07:44] LABS: ALKALINE PHOSPHATASE 100 U/L (45-117)
[2017-01-05 08:00] VITALS: O2SAT 98
[2017-01-05] MEDS: NITROFURANTOIN MONOHYDRATE 100 MG CAP PO SCH ×2 (08:40→20:52)
[2017-01-05] MEDS: ONDANSETRON INJ 2 MG/ML 2 ML VIAL IV SCH ×2 (08:41→20:57)
[2017-01-05] MEDS: OXYCODONE HCL 20 MG TABCR (OXYCONTIN) PO SCH ×2 (08:46→20:51)
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
[2017-01-05] MEDS: CYCLOBENZAPRINE HCL 10 MG TAB PO PRN (15:54)
[2017-01-05 15:59] VITALS: BP 129/61; PULSE 66; TEMP 36.5; O2SAT 95
[2017-01-05] MEDS ORDERED: ALBUTEROL 0.083% NEBU SOLN 3 ML VIAL INH PRN (18:15)
--- NOTE | 2017-01-05 18:20 | Progress Note ---
Medicine Progress Note Date & Time of Visit: Jan 05, 2017 at 18:17. Subjective patient states she feels improved today compared to yesterday no abdominal pain, nausea, fever/chills no chest pain, dyspnea, palpitations, dizziness no other symptoms Objective Last 8 Hrs Date Time Temp Pulse Resp B/P Pulse Ox O2 Delivery O2 Flow Rate FiO2 01/05/17 15:59 36.5 66 20 129/61 95 Nasal Cannula 2.0 Physical Exam: General- oriented x 3, not in distress Head- atraumatic Eyes- EOMI, anicteric ENT- oropharynx clear Neck- supple, no JVD, no adenopathy Lungs- clear breath sounds bilaterally Heart- normal rate, regular rhythm; no murmurs Abdomen- normal bowel sounds, soft, nontender Extremities- no pretibial edema, no calf tenderness; peripheral pulses intact Neuro- alert, oriented x 3; no gross deficits Skin- warm & dry Laboratory Results: Last 24 Hours Test 01/04/17 18:38 01/04/17 19:58 01/04/17 20:30 01/04/17 20:37 Bedside Glucose 196 mg/dl Creatine Kinase MB Ratio 1.5 White Blood Count 10.58 K/uL Red Blood Count 4.38 M/uL Hemoglobin 12.6 g/dL Hematocrit 37.9 % Mean Corpuscular Volume 86.5 fL Mean Corpuscular Hemoglobin 28.8 pg Mean Corpuscular Hemoglobin Concent 33.2 g/dl Platelet Count 129 K/uL Mean Platelet Volume 10.5 fL Neutrophils (%) (Auto) 89.3 % Lymphocytes (%) (Auto) 1.9 % Monocytes (%) (Auto) 8.5 % Eosinophils (%) (Auto) 0.1 % Basophils (%) (Auto) 0.0 % Neutrophils # (Auto) 9.45 K/uL Lymphocytes # (Auto) 0.20 K/uL Monocytes # (Auto) 0.90 K/uL Eosinophils # (Auto) 0.01 K/uL Basophils # (Auto) 0.00 K/uL RDW Standard Deviation 40.9 fL RDW Coefficient of Variation 12.8 % Immature Granulocyte % (Auto) 0.2 % Immature Granulocyte # (Auto) 0.02 K/uL Sodium Level 135 mmol/L Potassium Level 4.1 mmol/L Chloride Level 96 mmol/L Carbon Dioxide Level 30 mmol/L Anion Gap 9.0 mmol/L Blood Urea Nitrogen 16 mg/dl Creatinine 1.20 mg/dl Estimated GFR () 53.4 Estimated GFR (Non- 46.1 BUN/Creatinine Ratio 13.5 Random Glucose 195 mg/dl Calcium Level 9.2 mg/dl Magnesium Level 1.5 mg/dl Total Bilirubin 0.7 mg/dl Direct Bilirubin 0.2 mg/dl Aspartate Amino Transf (AST/SGOT) 315 U/L Alanine Aminotransferase (ALT/SGPT) 225 U/L Alkaline Phosphatase 141 U/L Total Creatine Kinase 34 U/L Creatine Kinase MB 0.5 ng/ml Total Protein 7.0 gm/dl Albumin 3.4 gm/dl Lipase 56 U/L Bedside Troponin I 0.000 ng/ml Test 01/04/17 21:53 01/05/17 05:06 01/05/17 06:37 01/05/17 12:28 Urine Color DK YELLOW Urine Appearance CLEAR Urine pH 5.5 Urine Specific [place] 1.017 Urine Protein NEG Urine Glucose (UA) NEG Urine Ketones NEG Urine Occult Blood NEG Urine Nitrite NEG Urine Bilirubin NEG Urine Urobilinogen NEG Urine Leukocyte Esterase NEG Bedside Glucose 105 mg/dl 160 mg/dl White Blood Count 5.52 K/uL Red Blood Count 3.80 M/uL Hemoglobin 10.7 g/dL Hematocrit 33.2 % Mean Corpuscular Volume 87.4 fL Mean Corpuscular Hemoglobin 28.2 pg Mean Corpuscular Hemoglobin Concent 32.2 g/dl Platelet Count 102 K/uL Mean Platelet Volume 10.0 fL Neutrophils (%) (Auto) 73.5 % Lymphocytes (%) (Auto) 10.5 % Monocytes (%) (Auto) 13.4 % Eosinophils (%) (Auto) 2.2 % Basophils (%) (Auto) 0.2 % Neutrophils # (Auto) 4.06 K/uL Lymphocytes # (Auto) 0.58 K/uL Monocytes # (Auto) 0.74 K/uL Eosinophils # (Auto) 0.12 K/uL Basophils # (Auto) 0.01 K/uL RDW Standard Deviation 42.2 fL RDW Coefficient of Variation 13.0 % Immature Granulocyte % (Auto) 0.2 % Immature Granulocyte # (Auto) 0.01 K/uL Sodium Level 138 mmol/L Potassium Level 3.7 mmol/L Chloride Level 98 mmol/L Carbon Dioxide Level 34 mmol/L Anion Gap 6.0 mmol/L Blood Urea Nitrogen 17 mg/dl Creatinine 0.94 mg/dl Estimated GFR () 71.7 Estimated GFR (Non- 61.9 BUN/Creatinine Ratio 18.2 Random Glucose 114 mg/dl Calcium Level 8.3 mg/dl Magnesium Level 2.4 mg/dl Total Bilirubin 0.7 mg/dl Aspartate Amino Transf (AST/SGOT) 155 U/L Alanine Aminotransferase (ALT/SGPT) 158 U/L Alkaline Phosphatase 100 U/L Total Protein 5.9 gm/dl Albumin 2.9 gm/dl Globulin 3.0 gm/dl Albumin/Globulin Ratio 1.0 Test 01/05/17 16:27 Bedside Glucose 131 mg/dl Date/Time Source Procedure Growth Status 01/04/17 21:53 Urine,Catheterized Urine Culture - Preliminary NO GROWTH - LESS THAN 1,000 COLONIES/... Resulted Assessment & Plan ASSESSMENT: 1. Right-sided abdominal pain, abn LFTs ? secondary to emesis sx from urinary tract infection - CT abdomen: IMPRESSION: Prior cholecystectomy. Fatty infiltration of liver. Mild bladder wall thickening. Nonobstructive bowel pattern. - improving LFTs - monitor 2. bladder spasms 2 to complicated UTI ongoing treatment (E. coli sensitive to Macrodantin) hx cystocele - Urology consulted appreciate the recommendations - ff up urine cultures continue Macrodantin 3. hypertension, stable - continue medications 4. chronic pain narcotics 5. DM2, on oral meds, well controlled as of recent outpx HgA1c. 6. thrombocytopenia secondary to illness - monitor 7. chronic pain on narcotics 8. narcotic induced constipation DVT prophylaxis SCDS, RE thrombocytopenia. Full code. Disposition possible d/c home tomorrow Current Inpatient Medications: Current Inpatient Medications Medications (Trade) Dose Ordered Sig/John Route Start Time Stop Time Status Last Admin Dose Admin Miscellaneous (Iv Fluids Completed) 1 ea PRN PRN N/A 01/05/17 02:00 01/05/18 01:59 Acetaminophen (Tylenol Tab) 325 mg Q6H PRN PO 01/05/17 02:15 02/04/17 02:14 01/05/17 03:53 325 MG Insulin Aspart (novoLOG ASPART) SLIDING SCALE If C... ACHS SC 01/05/17 06:30 02/04/17 06:59 Glucose (Glucose 40% Gel) 15-30 GRAMS 15 GRAMS... UD PRN PO 01/05/17 02:15 02/04/17 02:14 Glucose (Glucose Chew Tab) 4-8 Tablets 4 Tabl... UD PRN PO 01/05/17 02:15 02/04/17 02:14 Dextrose (Dextrose 50% 50ML Syringe) 25-50ML OF 50% DW IV FOR... UD PRN IV 01/05/17 02:15 02/04/17 02:14 Glucagon (Glucagon Inj) 1 mg UD PRN SQ 01/05/17 02:15 02/04/17 02:14 Carvedilol (Coreg Tab) 6.25 mg HS PO 01/05/17 21:00 02/04/17 20:59 Cyclobenzaprine HCl (Flexeril Tab) 10 mg BID PRN PO 01/05/17 02:15 02/04/17 02:14 01/05/17 15:54 10 MG Levothyroxine Sodium (Synthroid Tab) 175 mcg DAILYBB PO 01/05/17 06:30 02/04/17 08:59 01/05/17 05:52 175 MCG Meclizine HCl (Antivert Tab) 12.5 mg TID PRN PO 01/05/17 02:15 02/04/17 02:14 Oxycodone HCl (Oxycontin Tab) 60 mg Q12 PO 01/05/17 09:00 01/19/17 08:59 01/05/17 08:46 60 MG Hydromorphone HCl (Dilaudid Inj) 0.5 mg Q6H PRN IV 01/05/17 02:15 01/19/17 02:14 Ondansetron HCl (Zofran Inj) 4 mg Q12H IV 01/05/17 09:00 01/06/17 08:59 Ondansetron HCl 4 mg 4 mg Q6H PRN IV 01/05/17 02:15 02/04/17 02:14 Promethazine HCl/ Sodium Chloride (Phenergan Inj/ Nss 50ml) 50.5 ml @ 204 mls/hr Q6H PRN IV 01/05/17 02:15 02/04/17 02:14 Lorazepam (Ativan Inj) 0.5 mg Q4H PRN IV 01/05/17 02:15 02/04/17 02:14 Oxycodone HCl (Roxicodone Immediate Rel Tab) pain not relieved ... Q4H PRN PO 01/05/17 02:15 01/19/17 02:14 Nitrofurantoin Macrocrystals (Macrobid Cap) 100 mg BID PO 01/05/17 09:00 01/15/17 08:59 01/05/17 08:40 100 MG Senna/Docusate Sodium (Senokot S Tab) 1 tab BID PO 01/05/17 21:00 02/04/17 20:59 Polyethylene 17 gm 17 gm DAILY PRN PO 01/05/17 02:30 02/04/17 02:29 Lorazepam/Syringe (Ativan Inj/ Syringe) 1 ml @ 1 mls/min Q4H PRN IV 01/05/17 03:45 02/04/17 03:44 Levalbuterol (Xopenex 1.25MG/ 3ML Neb) 1.25 mg Q6R INH 01/05/17 03:00 02/04/17 02:59 Levalbuterol (Xopenex 1.25MG/ 3ML Neb) 1.25 mg Q4H PRN INH 01/05/17 03:45 02/04/17 03:44
[2017-01-05] MEDS: DOCUSATE SODIUM/SENNA 50/8.6MG TAB PO SCH (20:52)
[2017-01-05 20:54] VITALS: BP 100/51; PULSE 72
[2017-01-05 23:11] VITALS: BP 109/62; PULSE 67; TEMP 36.4; O2SAT 92
[2017-01-06] VITALS: O2SAT 93
[2017-01-06] MEDS: CYCLOBENZAPRINE HCL 10 MG TAB PO PRN (04:15)
[2017-01-06] MEDS: LEVOTHYROXINE 175 MCG TAB PO SCH (06:27)
[2017-01-06] MEDS: INSULIN ASPART 100 UNITS/ML 3 ML PEN SC SCH ×2 (06:30→12:13)
[2017-01-06] MEDS: DOCUSATE SODIUM/SENNA 50/8.6MG TAB PO SCH (08:12)
[2017-01-06] MEDS: OXYCODONE HCL 20 MG TABCR (OXYCONTIN) PO SCH (08:12)
[2017-01-06] MEDS: NITROFURANTOIN MONOHYDRATE 100 MG CAP PO SCH (08:12)
[2017-01-06 08:15] LABS: ALB/GLOB RATIO 0.9 (0.9-2); BUN/CREATININE RATIO 11.6 (10-20); CALCIUM 8.4 mg/dl (8.5-10.1); CREATININE 0.88 mg/dl (0.60-1.20); POTASSIUM 3.7 mmol/L (3.5-5.1)
[2017-01-06 08:17] VITALS: BP 92/50; PULSE 65; TEMP 36.6; O2SAT 95
[2017-01-06 13:31] LABS: HEMATOCRIT 33.9 % (37-47); MEAN CELL VOLUME 89.9 fL (80-100); MEAN CORPUSCULAR HEMOGLOBIN 28.9 pg (25-34); RED BLOOD COUNT 3.77 M/uL (4.2-5.4); WHITE BLOOD COUNT 4.47 K/uL (4.8-10.8)
--- NOTE | 2017-01-06 13:34 | Progress Note ---
Medicine Progress Note Date & Time of Visit: Jan 06, 2017 at 13:27. Subjective states she feels much better today no bladder spasms or abdominal pain no chest pain, dyspnea, palpitations, dizziness no fever/chills states she is ready and would like to be discharged today Objective Last 8 Hrs Date Time Temp Pulse Resp B/P Pulse Ox O2 Delivery O2 Flow Rate FiO2 01/06/17 09:15 Room Air 01/06/17 08:17 36.6 65 20 92/50 95 Physical Exam: General- oriented x 3, not in distress Eyes- anicteric Neck- supple, no JVD Lungs- clear breath sounds bilaterally, no rales/wheezes Heart- normal rate, regular rhythm; no murmurs Abdomen- normal bowel sounds, soft, nontender Extremities- no pretibial edema, no calf tenderness Neuro- alert, oriented x 3; no gross deficits Skin- warm & dry Laboratory Results: Last 24 Hours Test 01/05/17 16:27 01/05/17 20:04 01/06/17 07:10 01/06/17 07:31 Bedside Glucose 131 mg/dl 156 mg/dl 93 mg/dl Sodium Level 138 mmol/L Potassium Level 3.7 mmol/L Chloride Level 100 mmol/L Carbon Dioxide Level 34 mmol/L Anion Gap 4.0 mmol/L Blood Urea Nitrogen 10 mg/dl Creatinine 0.88 mg/dl Est Creatinine Clear Calc Drug Dose 72.0 ml/min Estimated GFR () 77.7 Estimated GFR (Non- 67.0 BUN/Creatinine Ratio 11.6 Random Glucose 100 mg/dl Calcium Level 8.4 mg/dl Total Bilirubin 0.5 mg/dl Aspartate Amino Transf (AST/SGOT) 103 U/L Alanine Aminotransferase (ALT/SGPT) 130 U/L Alkaline Phosphatase 91 U/L Total Protein 5.8 gm/dl Albumin 2.8 gm/dl Globulin 3.0 gm/dl Albumin/Globulin Ratio 0.9 Test 01/06/17 11:26 01/06/17 12:53 Bedside Glucose 184 mg/dl 194 mg/dl Assessment & Plan 1. Right-sided abdominal pain, Abnormal LFTs ? secondary to emesis sx from urinary tract infection - CT abdomen: Prior cholecystectomy. Fatty infiltration of liver. Mild bladder wall thickening. Nonobstructive bowel pattern. - improving LFTs: AST 315--> 103 ALT 225--> 130 - abdominal pain resolved monitor LFTs as outpatient 2. Bladder spasms 2 to complicated UTI ongoing treatment (E. coli sensitive to Macrodantin) history of cystocele - Urology consulted, Dr. Perez bob catheter per patient preference ff up with [facility] Rain for further management of cystocele patient prefers to d/c Bob for now PRN Flexeril - urine culture: negative finish course of Macrodantin as previously prescribed 3. Hypertension, stable - continue medications DM2, on oral meds, well controlled as of recent outpx HgA1c. Thrombocytopenia secondary to illness - monitor. Disposition d/c home ff up with PCP in 3-5 days Current Inpatient Medications: Current Inpatient Medications Medications (Trade) Dose Ordered Sig/John Route Start Time Stop Time Status Last Admin Dose Admin Miscellaneous (Iv Fluids Completed) 1 ea PRN PRN N/A 01/05/17 02:00 01/05/18 01:59 Acetaminophen (Tylenol Tab) 325 mg Q6H PRN PO 01/05/17 02:15 02/04/17 02:14 01/05/17 03:53 325 MG Insulin Aspart (novoLOG ASPART) SLIDING SCALE If C... ACHS SC 01/05/17 06:30 02/04/17 06:59 01/06/17 12:13 1 UNITS Glucose (Glucose 40% Gel) 15-30 GRAMS 15 GRAMS... UD PRN PO 01/05/17 02:15 02/04/17 02:14 Glucose (Glucose Chew Tab) 4-8 Tablets 4 Tabl... UD PRN PO 01/05/17 02:15 02/04/17 02:14 Dextrose (Dextrose 50% 50ML Syringe) 25-50ML OF 50% DW IV FOR... UD PRN IV 01/05/17 02:15 02/04/17 02:14 Glucagon (Glucagon Inj) 1 mg UD PRN SQ 01/05/17 02:15 02/04/17 02:14 Carvedilol (Coreg Tab) 6.25 mg HS PO 01/05/17 21:00 02/04/17 20:59 01/05/17 20:56 6.25 MG Cyclobenzaprine HCl (Flexeril Tab) 10 mg BID PRN PO 01/05/17 02:15 02/04/17 02:14 01/06/17 04:15 10 MG Levothyroxine Sodium (Synthroid Tab) 175 mcg DAILYBB PO 01/05/17 06:30 02/04/17 08:59 01/06/17 06:27 175 MCG Meclizine HCl (Antivert Tab) 12.5 mg TID PRN PO 01/05/17 02:15 02/04/17 02:14 Oxycodone HCl (Oxycontin Tab) 60 mg Q12 PO 01/05/17 09:00 01/19/17 08:59 01/06/17 08:12 60 MG Hydromorphone HCl (Dilaudid Inj) 0.5 mg Q6H PRN IV 01/05/17 02:15 01/19/17 02:14 Ondansetron HCl 4 mg 4 mg Q6H PRN IV 01/05/17 02:15 02/04/17 02:14 Promethazine HCl/ Sodium Chloride (Phenergan Inj/ Nss 50ml) 50.5 ml @ 204 mls/hr Q6H PRN IV 01/05/17 02:15 02/04/17 02:14 Lorazepam (Ativan Inj) 0.5 mg Q4H PRN IV 01/05/17 02:15 02/04/17 02:14 Oxycodone HCl (Roxicodone Immediate Rel Tab) pain not relieved ... Q4H PRN PO 01/05/17 02:15 01/19/17 02:14 Nitrofurantoin Macrocrystals (Macrobid Cap) 100 mg BID PO 01/05/17 09:00 01/15/17 08:59 01/06/17 08:12 100 MG Senna/Docusate Sodium (Senokot S Tab) 1 tab BID PO 01/05/17 21:00 02/04/17 20:59 01/06/17 08:12 1 TAB Polyethylene 17 gm 17 gm DAILY PRN PO 01/05/17 02:30 02/04/17 02:29 Lorazepam/Syringe (Ativan Inj/ Syringe) 1 ml @ 1 mls/min Q4H PRN IV 01/05/17 03:45 02/04/17 03:44 Albuterol Sulfate (Ventolin 0.083% 2.5MG/3ML Neb) 2.5 mg Q4H PRN INH 01/05/17 18:15 02/04/17 18:14
[2017-01-06 13:40] LABS: MEAN CORPUSCULAR HGB CONC 32.2 g/dl (32-36)
[2017-01-06] MEDS ORDERED: CYCL10TA6 PO (13:41)
[2017-01-06] MEDS ORDERED: MECL1TAB42 PO (13:41)
--- NOTE | 2017-01-06 13:44 | Discharge Instructions ---
Discharge Instructions Date of Service Jan 06, 2017. Admission Reason for Admission: Abdominal Pain Discharge Discharge Diagnosis / Problem: ABDOMINAL PAIN FROM BLADDER SPASMS Discharge Goals Goal(s): Diagnostic testing, Therapeutic intervention Activity Recommendations Activity Limitations: resume your previous activity Driving or Machine Use: NO DRIVING WHILE TAKING FLEXERIL, OXYCONTIN, OXYCODONE . Instructions / Follow-Up Instructions / Follow-Up PLEASE REVIEW YOUR NEW MEDICATION LIST AND FOLLOW INSTRUCTIONS CAREFULLY. FINISH COURSE OF ANTIBIOTIC- MACRODANTIN PRESCRIBED PREVIOUSLY. CALL PRIMARY CARE PHYSICIAN OR UROLOGIST WITH RETURN OF SYMPTOMS. FOLLOW UP WITH DR. ROBERTS ON Saturday01/10/17 AT 10:50AM. FOLLOW UP WITH UROLOGIST SCHEDULED. Current Hospital Diet Patient's current hospital diet: Diabetes Type 2 Diet, AHA Diet (Heart Healthy) Discharge Diet Recommended Diet: AHA Diet (Heart Healthy), Diabetes Type 2 Diet Pending Studies Studies pending at discharge: no Medical Emergencies . Who to Call and When: Medical Emergencies: If at any time you feel your situation is an emergency, please call 911 immediately. . Non-Emergent Contact Non-Emergency issues call your: Primary Care Provider Call Non-Emergent contact if: you have a fever, your pain is not controlled, you have any medication questions . Past History Medical & Surgical History: (1) Urinary tract infection (2) Pancreatitis (3) COPD exacerbation (4) Abdominal pain (5) Vomiting (6) Bladder spasm (7) COPD with acute exacerbation (8) COPD (chronic obstructive pulmonary disease) (9) Asthma . "Provider Documentation" section prepared by Masood Rushing. VTE Core Measure Inpt VTE Proph given/why not?: SCD's [place] Drug Monitoring Program Search Results: patient reviewed within database, no issues identified
[2017-01-06 13:57] VITALS: BP 92/50; PULSE 65; TEMP 36.6; O2SAT 95
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
[2017-01-06 14:05] LABS: MEAN PLATELET VOLUME 11.2 fL (7.4-10.4); PLATELET COUNT 91 K/uL (130-400)
[2017-01-06 14:06] LABS: BASO % 0.2 %; BASO ABS # 0.01 K/uL (0-0.2); COMPLETE YES; EOS % 3.8 %; IG% 0.2 %; LYMPH % 8.3 %; LYMPH ABS # 0.37 K/uL (1.2-3.4); MONO % 8.5 %; PLT ESTIMATE DECREASED
[2017-02-14] MEDS ORDERED: PRMVC TOP (05:02)
[2017-02-14] MEDS ORDERED: MAGN400T6 PO (05:09)
[2017-02-14] MEDS ORDERED: OXYC60TA8 PO (05:12)
[2017-02-14] MEDS ORDERED: SPIR25TA PO (05:20)
[2017-02-14] MEDS ORDERED: METF500T PO (05:28)
[2017-02-14] MEDS ORDERED: LEVO175T PO (16:35)
[2017-02-14] MEDS ORDERED: OXYC-164 PO (16:35)
[2017-02-14] MEDS ORDERED: POTA10CA28 PO (16:35)
[2017-02-14] MEDS ORDERED: CARV3.122 PO (16:35)
[2017-02-14] MEDS ORDERED: FRS/40 PO (16:35)
== END 2017-01-06 14:25 | disposition home or self-care (01) ==
LOC: ENRESERVTM → ENRESERVDT → C.EDB 18:15 → C.MS2W 01-05 01:34
PROVIDERS: ADMIT Internal Medicine; ATTEND Internal Medicine
DX: N39.0 Urinary tract infection, site not specified (principal); B96.20 Unspecified Escherichia coli [E. coli] as the cause of diseases classified elsewhere; R33.9 Retention of urine, unspecified; N81.89 Other female genital prolapse; N81.10 Cystocele, unspecified; D69.6 Thrombocytopenia, unspecified; J44.9 Chronic obstructive pulmonary disease, unspecified; K58.9 Irritable bowel syndrome, unspecified; I10 Essential (primary) hypertension; E11.9 Type 2 diabetes mellitus without complications; Z99.81 Dependence on supplemental oxygen; Z88.2 Allergy status to sulfonamides; Z90.49 Acquired absence of other specified parts of digestive tract; Z79.82 Long term (current) use of aspirin; Z83.3 Family history of diabetes mellitus; Z82.49 Family history of ischemic heart disease and other diseases of the circulatory system

== ENCOUNTER 2017-02-14 18:50 | Emergency (ER) | payer OTHER ==
[~2017-02-14 18:50] MED LIST changes: +CARV3.122 PO; -CYCL-259 PO; +CYCL10TA6 PO; +FRS/40 PO; +LEVO175T PO; -LVQ500 PO; +MAGN400T6 PO; +METF500T PO; +ONDA4TAB10 SL; +OXYC-164 PO; +OXYC60TA8 PO; +POTA10CA28 PO; +PRMVC TOP; +SPIR25TA PO
[2017-02-14 18:56] VITALS: TEMP 36.9; Ht 165.1 cm
--- NOTE | 2017-02-14 19:21 | EMERGENCY ROOM VISIT NOTE ---
History Report prepared by Gómez: Kelin Austin Under the Supervision of: Dr. Jack Haywood D.O. First contact with patient: 19:16 Chief Complaint: URINARY SYMPTOMS Stated Complaint: SEVERE BLADDER SPASMS,PAIN,CLOUDY URINE Nursing Triage Summary: Patient reports urinary symptoms, bladder spasms, pain and burning. Patient took oxycodone and spasm pills 1 hour ago. History of Present Illness The patient is a 72 year old female who presents to the Emergency Room with complaints of worsening lower abdominal pain beginning yesterday. The patient states that she has a history of cystitis and says that she has been experiencing frequent bladder and kidney infections as a result. She notes bladder spasms and burning with urination. The patient also states she has been urinating less frequently than normal. She has a history of urinary tract infections. The patient is experiencing nausea. The patient denies fever or vomiting. She wears oxygen at home. Source of History: patient Onset: yesterday Position: abdomen (lower) Timing: worsening Associated Symptoms: + nausea, + urinary symptoms, No fevers Review of Systems See HPI for pertinent positives & negatives. A total of 10 systems reviewed and were otherwise negative. Past Medical & Surgical Medical Problems: (1) Abdominal pain (2) Asthma (3) COPD (chronic obstructive pulmonary disease) Family History Diabetes mellitus FH: heart disease FHx: cancer Social History Smoking Status: Never Smoker Smokeless Tobacco Use: No Alcohol Use: none Drug Use: none Marital Status: Occupation Status: retired Current/Historical Medications Scheduled Carvedilol (Coreg), 2 TAB PO HS Estrogens, Conjugated (Premarin), 1 APPLN TOP 3XWK Levofloxacin (Levaquin), 750 MG PO DAILY Levothyroxine Sodium (Synthroid), 1 TAB PO DAILY Magnesium Oxide (Mag-Ox), 400 MG PO DAILY Metformin Hcl (Glucophage), 500 MG PO BID Ondasetron Odt (Zofran Odt), 4 MG SL Q6H Oxycodone Hcl (Oxycontin), 60 MG PO Q12 Potassium Chloride (Micro-K Ext Rel), 10 MEQ PO DAILY Scheduled PRN Albuterol Hfa (Ventolin Hfa), 2 PUFFS INH Q6H PRN for SOB/Wheezing Albuterol Sulf (Proventil 0.083% 2.5MG/3ML), 2.5 MG INH Q4 PRN for SOB/Wheezing Cyclobenzaprine Hcl (Flexeril), 1 TAB PO BID PRN for back spasms Furosemide (Lasix), 40 MG PO DAILY PRN for edema Hyoscyamine Sulfate (Levsin), 0.125 MG PO Q4 PRN for ABD CRAMPING Meclizine Hcl (Meclizine Hcl), 25 MG PO TID PRN for Dizziness or Vertigo Oxycodone Hcl (Oxycodone Hcl), 1 TAB PO Q4H PRN for Pain Spironolactone (Aldactone), 25 MG PO BID PRN for EDEMA Allergies Coded Allergies: Aspartame (Verified Allergy, Intermediate, ???, 11/16/15) Ipratropium (Verified Allergy, Mild, SHORTNESS OF BREATH, 11/16/15) Povidone (Verified Allergy, Mild, BLISTER WITH TAPE, 11/16/15) Aspirin (Verified Allergy, Unknown, 11/16/15) Chlorhexidine (Verified Allergy, Unknown, 11/16/15) Iodinated Contrast Media (Verified Allergy, Unknown, -, 11/16/15) Meperidine (Verified Allergy, Unknown, 11/16/15) Morphine (Verified Allergy, Unknown, 11/16/15) NSAIDs (Verified Allergy, Unknown, -, 11/16/15) Penicillins (Verified Allergy, Unknown, 11/16/15) Sulfa Drugs (Verified Allergy, Unknown, 11/16/15) Adhesives (Verified Adverse Reaction, Mild, BLISTERS WITH TAPE, 11/16/15) Physical Exam Vital Signs Date Time Temp Pulse Resp B/P Pulse Ox O2 Delivery O2 Flow Rate FiO2 02/14/17 18:56 36.9 83 20 142/86 94 Nasal Cannula 3.0 Physical Exam GENERAL: Patient is awake, alert, and in no acute distress. Patient is resting comfortably and showing no signs of anxiety EYES: The conjunctivae are clear. The pupils are round and reactive. EARS, NOSE, MOUTH AND THROAT: The nose is without any evidence of any deformity. Mucous membranes are moist tongue is midline NECK: The neck is nontender and supple. RESPIRATORY: Normal respiratory effort is noted there is no evidence of wheezing rhonchi or rales CARDIOVASCULAR: Regular rate and rhythm noted there no murmurs rubs or gallops normal S1 normal S2 GASTROINTESTINAL: The abdomen is mildly distended but soft. Suprapubic tenderness to palpation. No guarding or rigidity. BACK: No midline tenderness or or step-off noted range of motion in flexion extension as well as rotation no signs of muscle spasm noted MUSCULOSKELETAL/EXTREMITIES: There is no evidence of gross deformity full range of motion is noted in the hips and shoulders SKIN: There is no obvious evidence of any rash. There are no petechiae, pallor or cyanosis noted. NEUROLOGIC: Patient is awake alert and oriented x3 Medical Decision & Procedures Laboratory Results Test 02/14/17 19:49 Urine Color ORANGE Urine Appearance TURBID (CLEAR) Urine pH 5.5 (4.5-7.5) Urine Specific [place] 1.029 (1.000-1.030) Urine Protein 3+ (NEG) Urine Glucose (UA) NEG (NEG) Urine Ketones NEG (NEG) Urine Occult Blood 3+ (NEG) Urine Nitrite NEG (NEG) Urine Bilirubin NEG (NEG) Urine Urobilinogen NEG (NEG) Urine Leukocyte Esterase LARGE (NEG) Urine WBC (Auto) >30 /hpf (0-5) Urine RBC (Auto) >30 /hpf (0-4) Urine Hyaline Casts (Auto) 10-30 /lpf (0-5) Urine Epithelial Cells (Auto) 10-20 /lpf (0-5) Urine Bacteria (Auto) 4+ (NEG) Urine Pathogenic Casts /lpf (0) Urine Yeast (Auto) PRESENT (NONE PRSENT) Laboratory results per my review. ED Course 1917: The patient was evaluated in room C9. A complete history and physical examination were performed. 2032: Levaquin Tab 750 mg PO. 2103: Upon reevaluation, the patient is hemodynamically stab;e. I discussed the results and treatment plan with the patient. She verbalized agreement of the treatment plan. She was discharged home. Medical Decision Differential diagnosis: Etiologies such as appendicitis, diverticulitis, PUD, biliary pathology, UTI, pancreatitis, obstruction, mesenteric ischemia, aortic pathology, infections, inflammatory bowel disease, renal colic, as well as others were entertained. Nursing notes reviewed. Patient's previous records from [facility] were reviewed. The patient is a 72-year-old female who has a history of prolapsed bladder who presented to the emergency department for an evaluation of dysuria and frequency. The patient states that she's had frequent urinary tract infections in the past. She cannot use a pessary it did not work with her in the past. She has not had any scheduled treatment for this cystocele this time. The patient had a cath specimen which was consistent with urinary tract infection and some hemorrhagic cystitis. She was started on Levaquin in the emergency department. I discussed the patient's laboratory results with her. She was encouraged to continue drinking plenty clear liquids and continue all medications as prescribed. She was also encouraged to follow-up with her primary care physician as soon as possible. The patient was also encouraged to continue using Tylenol as directed for pain and follow-up with her primary care physician. Otherwise she was encouraged to return to the emergency department immediately if symptoms change worsen or the need arises. Impression Primary Impression: Cystitis Additional Impression: UTI (urinary tract infection) Scribe Attestation The scribe's documentation has been prepared under my direction and personally reviewed by me in its entirety. I confirm that the note above accurately reflects all work, treatment, procedures, and medical decision making performed by me. Departure Information Dispostion Home / Self-Care Prescriptions Levofloxacin (Levaquin) 750 Mg Tab 750 MG PO DAILY, #5 TAB Prov: Jack Haywood, DO 02/14/17 Referrals Mendez Swann M.D.(LINDSAY) (PCP) Forms HOME CARE DOCUMENTATION FORM, IMPORTANT VISIT INFORMATION Patient Instructions My [facility], Urinary Tract Infecs Women Additional Instructions Drink plenty of clear liquids. Continue all medications as prescribed. Follow- up with your family this week but return to the emergency department immediately if symptoms change worsen or the need arises. Problem Qualifiers
[2017-02-14] MEDS ORDERED: VNTHFA/IN INH (19:55)
[2017-02-14] MEDS ORDERED: ALBINS/ INH (19:55)
[2017-02-14] MEDS ORDERED: HYOS0.1255 PO (19:55)
[2017-02-14 20:28] LABS: URINE APPEARANCE TURBID (CLEAR); URINE BILIRUBIN NEG (NEG); URINE COLOR ORANGE; URINE NITRITE NEG (NEG); URINE PH 5.5 (4.5-7.5); URINE SPECIFIC GRAVITY 1.029 (1.000-1.030); UROBILINOGEN NEG (NEG); ZZURINE CULT IF INDIC CATH YES
[2017-02-14 20:29] LABS: MANUAL MICROSCOPIC REQUIRED? NO; REVIEW REQ? YES
[2017-02-14] MEDS ORDERED: LEVOFLOXACIN 250 MG TAB PO STA (20:33)
[2017-02-14] MEDS ORDERED: LEVO1TAB35 PO (20:59)
[2017-02-14 22:20] VITALS: BP 138/87; PULSE 88; O2SAT 94
== END 2017-02-14 22:00 | disposition home or self-care (01) ==
LOC: C.EDB 18:51 → C.EDC 22:00
DX: N30.90 Cystitis, unspecified without hematuria (principal); Z87.440 Personal history of urinary (tract) infections; J45.909 Unspecified asthma, uncomplicated; J44.9 Chronic obstructive pulmonary disease, unspecified; Z83.3 Family history of diabetes mellitus; Z82.49 Family history of ischemic heart disease and other diseases of the circulatory system; Z80.9 Family history of malignant neoplasm, unspecified; Z79.899 Other long term (current) drug therapy

== ENCOUNTER 2017-04-26 13:59 | Emergency (ER) | payer OTHER ==
[~2017-04-26 13:59] MED LIST changes: +ALBINS/ INH; -ALBU0.08 INH; -ALBUAER2 INH; -CLOT10TR2 MT; +HYOS0.1255 PO; +LEVO1TAB35 PO; -OXGN; +VNTHFA/IN INH; -VTMD PO
[2017-04-26 14:08] VITALS: Ht 167.6 cm
[2017-04-26 14:54] LABS: BASO % 0.4 %; BASO ABS # 0.02 K/uL (0-0.2); COMPLETE YES; EOS % 3.8 %; HEMATOCRIT 40.2 % (37-47); IG% 0.2 %; LYMPH % 30.8 %; LYMPH ABS # 1.39 K/uL (1.2-3.4); MEAN CELL VOLUME 87.6 fL (80-100); MEAN CORPUSCULAR HEMOGLOBIN 28.5 pg (25-34); MEAN CORPUSCULAR HGB CONC 32.6 g/dl (32-36); MEAN PLATELET VOLUME 9.8 fL (7.4-10.4); MONO % 11.9 %; NEUT % 52.9 %; PLATELET COUNT 166 K/uL (130-400); RED BLOOD COUNT 4.59 M/uL (4.2-5.4); WHITE BLOOD COUNT 4.52 K/uL (4.8-10.8)
--- NOTE | 2017-04-26 14:56 | EMERGENCY ROOM VISIT NOTE ---
History Report prepared by Gómez: Kelin Austin Under the Supervision of: Dr. Joon Rojas M.D. First contact with patient: 14:43 Chief Complaint: CARDIAC ASSESSMENT Stated Complaint: LOW BLOOD PRESSURE,CHEST PAIN Nursing Triage Summary: pt reports she was placed on cardieveil for hypertension after med she was on brovana. pt reports she has been waking at night . today had chest pain at 1145. did not radiate. pt also reports she has been getting more sob . normally can walk from car to house without o2 can no longer do that. 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 pt reports sx are now better History of Present Illness The patient is a 72 year old female who presents to the Emergency Room with complaints of multiple episodes of hypotension beginning a few days ago. The patient states that she has been waking up in the middle of the night with a low blood pressure. She states that by mid morning she begins to feel better. During these episodes the patient is experiencing dizziness, fatigue and weakness. She notes that today the symptoms have not resolved. Today she called [facility] to schedule PCP appointment and while on the phone had an episode of mild chest pain. She notes the pain resolved quickly. The patient denies bloody or black stools. She has COPD and wears oxygen at home. 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 Review of Systems See HPI for pertinent positives & negatives. A total of 10 systems reviewed and were otherwise negative. Past Medical & Surgical Medical Problems: (1) Abdominal pain (2) Asthma (3) COPD (chronic obstructive pulmonary disease) Old medical records were reviewed. Nurse's notes were reviewed and I agree with. Family History Diabetes mellitus FH: heart disease FHx: cancer Social History Smoking Status: Never Smoker Alcohol Use: none Drug Use: none Marital Status: Occupation Status: retired Current/Historical Medications Scheduled Carvedilol (Coreg), 2 TAB PO HS Estrogens, Conjugated (Premarin), 1 APPLN TOP 3XWK Levothyroxine Sodium (Synthroid), 1 TAB PO DAILY Magnesium Oxide (Mag-Ox), 400 MG PO DAILY Metformin Hcl (Glucophage), 500 MG PO BID Ondasetron Odt (Zofran Odt), 4 MG SL Q6H Oxycodone Hcl (Oxycontin), 60 MG PO Q12 Potassium Chloride (Micro-K Ext Rel), 10 MEQ PO DAILY Scheduled PRN Albuterol Hfa (Ventolin Hfa), 2 PUFFS INH Q6H PRN for SOB/Wheezing Albuterol Sulf (Proventil 0.083% 2.5MG/3ML), 2.5 MG INH Q4 PRN for SOB/Wheezing Cyclobenzaprine Hcl (Flexeril), 1 TAB PO BID PRN for back spasms Furosemide (Lasix), 40 MG PO DAILY PRN for edema Hyoscyamine Sulfate (Levsin), 0.125 MG PO Q4 PRN for ABD CRAMPING Meclizine Hcl (Meclizine Hcl), 25 MG PO TID PRN for Dizziness or Vertigo Oxycodone Hcl (Oxycodone Hcl), 1 TAB PO Q4H PRN for Pain Spironolactone (Aldactone), 25 MG PO BID PRN for EDEMA Allergies Coded Allergies: Arformoterol (Unverified Allergy, Severe, TACHYCARDIA, 04/26/17) Aspartame (Verified Allergy, Intermediate, ???, 04/26/17) Ipratropium (Verified Allergy, Mild, SHORTNESS OF BREATH, 04/26/17) Povidone (Verified Allergy, Mild, BLISTER WITH TAPE, 04/26/17) Aspirin (Verified Allergy, Unknown, 04/26/17) Chlorhexidine (Verified Allergy, Unknown, 04/26/17) Iodinated Contrast Media (Verified Allergy, Unknown, -, 04/26/17) Meperidine (Verified Allergy, Unknown, 04/26/17) Morphine (Verified Allergy, Unknown, 04/26/17) NSAIDs (Verified Allergy, Unknown, -, 04/26/17) Penicillins (Verified Allergy, Unknown, 04/26/17) Sulfa Drugs (Verified Allergy, Unknown, 04/26/17) Adhesives (Verified Adverse Reaction, Mild, BLISTERS WITH TAPE, 04/26/17) Physical Exam Vital Signs Date Time Temp Pulse Resp B/P (MAP) Pulse Ox O2 Delivery O2 Flow Rate FiO2 04/26/17 16:41 36.8 59 13 125/65 100 04/26/17 16:09 59 13 100 04/26/17 16:04 59 13 100 04/26/17 16:01 125/65 04/26/17 15:59 63 14 100 04/26/17 15:54 59 12 100 04/26/17 15:49 61 12 98 04/26/17 15:44 63 14 97 04/26/17 15:39 66 15 96 04/26/17 15:34 70 16 95 04/26/17 15:31 123/62 04/26/17 15:29 65 13 96 04/26/17 15:25 122/69 04/26/17 15:25 68 16 122/69 98 Nasal Cannula 3.0 04/26/17 15:24 61 14 98 04/26/17 15:19 69 22 95 04/26/17 15:14 71 15 95 04/26/17 15:09 75 21 04/26/17 15:04 72 15 04/26/17 15:02 96 Nasal Cannula 3.0 04/26/17 15:01 127/65 04/26/17 14:59 72 14 04/26/17 14:54 73 14 04/26/17 14:49 75 19 04/26/17 14:44 73 21 04/26/17 14:39 74 15 04/26/17 14:34 76 16 97 04/26/17 14:31 130/75 04/26/17 14:29 97 Nasal Cannula 3.0 04/26/17 14:29 69 14 97 04/26/17 14:29 73 04/26/17 14:23 133/89 04/26/17 14:08 36.8 79 20 144/88 94 Room Air Physical Exam General: Well developed well nourished non ill in no acute distress older female , wearing baseline oxygen nasal canula. Normal speech HEENT: Normal cephalic atraumatic. Pupils are equal round and reactive to light. Extraocular movements are intact. Oropharynx is pink with moist mucous membranes. No swelling of the mouth lips or tongue. Neck: Supple with a midline trachea. No meningeal signs or stiffness, no JVD or bruits. No Stridor. Chest: Clear to auscultation bilaterally. No wheezes or rhonchi. No increased work of breathing. Heart: regular rate and rhythm. Abdomen: Soft nontender, nondistended without rebound guarding or rigidity. Extremities: No cyanosis clubbing or edema. No calf tenderness or assymetry Spine/Back. Non tender to palpation. No CVA tenderness Skin: Good turgor without rashes. Neurologic exam: Cranial nerves two through 12 are intact. Motor and sensation are intact and symmetrical throughout. Medical Decision & Procedures ER Provider Diagnostic Interpretation: X-ray results as stated below per interpretation by me and the radiologist: CHEST ONE VIEW PORTABLE CLINICAL HISTORY: Atypical chest pain COMPARISON STUDY: 01/04/2017 FINDINGS: The heart is borderline enlarged. There is no failure. There is no lobar consolidation. There is radiographic evidence of emphysema. There are stable areas of chronic interstitial scarring. [ IMPRESSION: Emphysema and chronic interstitial scarring. No acute findings. Electronically signed by: Edwin Licona M.D. 04/26/2017 3:02 PM Dictated Date/Time: 04/26/2017 3:02 PM Laboratory Results 04/26/17 14:25 Red Blood Count 4.59, Mean Corpuscular Volume 87.6, Mean Corpuscular Hemoglobin 28.5, Mean Corpuscular Hemoglobin Concent 32.6, Mean Platelet Volume 9.8, Neutrophils (%) (Auto) 52.9, Lymphocytes (%) (Auto) 30.8, Monocytes (%) (Auto) 11.9, Eosinophils (%) (Auto) 3.8, Basophils (%) (Auto) 0.4, Neutrophils # (Auto ) 2.39, Lymphocytes # (Auto) 1.39, Monocytes # (Auto) 0.54, Eosinophils # (Auto ) 0.17, Basophils # (Auto) 0.02 04/26/17 14:25 Test 04/26/17 14:25 04/26/17 14:58 White Blood Count 4.52 K/uL (4.8-10.8) Red Blood Count 4.59 M/uL (4.2-5.4) Hemoglobin 13.1 g/dL (12.0-16.0) Hematocrit 40.2 % (37-47) Mean Corpuscular Volume 87.6 fL (80-100) Mean Corpuscular Hemoglobin 28.5 pg (25-34) Mean Corpuscular Hemoglobin Concent 32.6 g/dl (32-36) Platelet Count 166 K/uL (130-400) Mean Platelet Volume 9.8 fL (7.4-10.4) Neutrophils (%) (Auto) 52.9 % Lymphocytes (%) (Auto) 30.8 % Monocytes (%) (Auto) 11.9 % Eosinophils (%) (Auto) 3.8 % Basophils (%) (Auto) 0.4 % Neutrophils # (Auto) 2.39 K/uL (1.4-6.5) Lymphocytes # (Auto) 1.39 K/uL (1.2-3.4) Monocytes # (Auto) 0.54 K/uL (0.11-0.59) Eosinophils # (Auto) 0.17 K/uL (0-0.5) Basophils # (Auto) 0.02 K/uL (0-0.2) RDW Standard Deviation 44.9 fL (36.4-46.3) RDW Coefficient of Variation 14.0 % (11.5-14.5) Immature Granulocyte % (Auto) 0.2 % Immature Granulocyte # (Auto) 0.01 K/uL (0.00-0.02) Anion Gap 3.0 mmol/L (3-11) Estimated GFR () 69.4 Estimated GFR (Non- 59.9 BUN/Creatinine Ratio 10.5 (10-20) Calcium Level 9.3 mg/dl (8.5-10.1) Total Bilirubin 0.3 mg/dl (0.2-1) Direct Bilirubin 0.1 mg/dl (0-0.2) Aspartate Amino Transf (AST/SGOT) 20 U/L (15-37) Alanine Aminotransferase (ALT/SGPT) 28 U/L (12-78) Alkaline Phosphatase 71 U/L (45-117) Total Creatine Kinase 52 U/L (26-192) Creatine Kinase MB 1.1 ng/ml (0.5-3.6) Creatine Kinase MB Ratio 2.1 (0-3.0) Total Protein 7.1 gm/dl (6.4-8.2) Albumin 3.5 gm/dl (3.4-5.0) Lipase 63 U/L (73-393) Thyroid Stimulating Hormone (TSH) 0.897 uIu/ml (0.300-4.500) Bedside Troponin I < 0.030 ng/ml (0-0.045) NT-Qll-L-Type Natriuretic Peptide 319 pg/ml (0-900) Laboratory studies as stated above per my review. ECG Indication: other (hypotensive) Rate (beats per minute): 68 Rhythm: normal sinus Findings: no acute ischemic change, left axis deviation, other (poor R wave progression) Change: no significant change (from January 04, 2017) ED Course 1443: Past medical records reviewed. The patient was evaluated in room B11, and a complete history and physical examination were performed. 1629: I spoke with the patient and she is feeling much better. 1645: Upon reevaluation, the patient is hemodynamically stable. I discussed the results and treatment plan with the patient. She verbalized agreement of the treatment plan. The patient was discharged home. Medical Decision Differentials include, but are not limited to; acute coronary syndrome, arrhythmia, GERD, COPD, CHF, electrolyte or metabolic abnormalities. Medication Reconciliation: I attest that I have personally reviewed the patient' s current medication list. Blood pressure Screening: Patient was found to have normal blood pressure on screening and does not require follow-up. This patient comes in as described above. She is asymptomatic at present. She says over the last several weeks she has episodes where she wakes up and feels her blood pressure is low in the low 100 range. She said today she had some vague chest pain that lasted less than a couple minutes. She feels better at present. She has had some stress with her at home and she cares him and and is ill with pneumonia. She's had no fever or chills or cough. IV access established EKG and multiple blood testing was obtained. Chest x-ray does not suggest congestive heart failure, pneumonia, or pneumothorax. EKG does not suggest acute coronary syndrome or significant arrhythmia. She has no acute electrolyte or metabolic abnormalities. Her cardiac enzymes are not elevated. I talked to her at length. I told her we could admit her to rule out cardiac disease, she declines and just wants to go home. She has an appointment with her third rail installer on Saturday. I think this is reasonable. Her symptoms would be atypical for cardiac disease at this point. She may need adjustment on her medications chronically related to her blood pressure. She was happy with the plan will be discharged to home. Impression Primary Impression: Chest pain, precordial Scribe Attestation The scribe's documentation has been prepared under my direction and personally reviewed by me in its entirety. I confirm that the note above accurately reflects all work, treatment, procedures, and medical decision making performed by me. Departure Information Dispostion Home / Self-Care Referrals Mendez Swann M.D.(LINDSAY) (PCP) Forms IMPORTANT VISIT INFORMATION Patient Instructions My [facility] Additional Instructions Rest Drink plenty of fluids Return if: worsening of symptoms, shortness of breath, lightheadedness or dizziness, chest pain, any new problems or concerns Follow-up with your third rail installer on Saturday for recheck.
[2017-04-26 15:02] VITALS: O2SAT 96
--- NOTE | 2017-04-26 15:04 | DIAGNOSTIC IMAGING REPORT ---
CHEST ONE VIEW PORTABLE CLINICAL HISTORY: Atypical chest pain COMPARISON STUDY: 01/04/2017 FINDINGS: The heart is borderline enlarged. There is no failure. There is no lobar consolidation. There is radiographic evidence of emphysema. There are stable areas of chronic interstitial scarring. [ IMPRESSION: Emphysema and chronic interstitial scarring. No acute findings. Electronically signed by: Edwin Licona M.D. 04/26/2017 3:02 PM Dictated Date/Time: 04/26/2017 3:02 PM
[2017-04-26 15:12] LABS: BLOOD UREA NITROGEN 10 mg/dl (7-18); BUN/CREATININE RATIO 10.5 (10-20); CALCIUM 9.3 mg/dl (8.5-10.1); CARBON DIOXIDE 37 mmol/L (21-32); CHLORIDE 97 mmol/L (98-107); CREATININE 0.96 mg/dl (0.60-1.20); GLUCOSE 129 mg/dl (70-99); POTASSIUM 3.6 mmol/L (3.5-5.1); SODIUM 137 mmol/L (136-145)
[2017-04-26 15:17] LABS: POINT OF CARE PRO-BNP 319 pg/ml (0-900); POINT OF CARE TROPONIN I < 0.030 ng/ml (0-0.045)
[2017-04-26 15:28] LABS: CKMB/CK RATIO 2.1 (0-3.0); THYROID STIMULATING HORMONE 0.897 uIu/ml (0.300-4.500)
[2017-04-26 16:41] VITALS: BP 125/65; PULSE 59; TEMP 36.8; O2SAT 100
== END 2017-04-26 16:42 | disposition home or self-care (01) ==
LOC: C.EDB 14:03
DX: R07.2 Precordial pain (principal); I95.9 Hypotension, unspecified; I10 Essential (primary) hypertension; J44.9 Chronic obstructive pulmonary disease, unspecified; J45.909 Unspecified asthma, uncomplicated; Z99.81 Dependence on supplemental oxygen

== ENCOUNTER 2019-07-19 18:08 | Inpatient (IN) ==
[2019-07-19 19:23] LABS: Hematocrit (blood only) 41.6 % (37-47); Hemoglobin 13.9 g/dL (12.0-16.0); Immature Granulocytes # (auto) 0.06 K/uL (0.00-0.02); Immature Granulocytes % (auto) 0.7 %; Lymphocytes # (auto) 1.81 K/uL (1.2-3.4); Lymphocytes % (auto) 22.5 %; Mean Corpuscular Hemoglobin 30.3 pg (25-34); Mean Corpuscular Hgb Conc 33.4 g/dL (32-36); Mean Corpuscular Volume 90.8 fL (80-100); Mean Platelet Volume 10.6 fL (7.4-10.4); Monocytes # (auto) 0.88 K/uL (0.11-0.59); Monocytes % (auto) 10.9 %; Neutrophils % (auto) 65.9 %; Platelet Count 135 K/uL (130-400); RDW Standard Deviation 46.3 fL (36.4-46.3); Red Blood Count 4.58 M/uL (4.2-5.4); White Blood Count 8.05 K/uL (4.8-10.8)
[2019-07-19 19:31] LABS: Alanine Aminotransferase 35 U/L (12-78); Albumin Level 3.3 gm/dl (3.4-5.0); Aspartate Aminotransferase 18 U/L (15-37); BUN Creatinine Ratio 20.1 (10-20); Blood Urea Nitrogen 32 mg/dl (7-18); Calcium 9.3 mg/dl (8.5-10.1); Carbon Dioxide 31 mmol/L (21-32); Chloride 93 mmol/L (98-107); Est GFR (African American) 37.8; Est GFR (Non-African American) 32.6; Glucose 270 mg/dl (70-99); Magnesium 1.9 mg/dl (1.8-2.4); Potassium 3.9 mmol/L (3.5-5.1); Sodium 131 mmol/L (136-145)
[2019-07-19 19:36] LABS: INR 0.9 (0.9-1.1); Prothrombin Time 9.7 Seconds (9.0-12.0)
[2019-07-19 19:42] LABS: Alkaline Phosphatase 60 U/L (45-117); Bilirubin,Total 0.5 mg/dl (0.2-1); Creatine Kinase 36 U/L (26-192); Globulin 3.3 gm/dl (2.5-4.0); Total Protein 6.6 gm/dl (6.4-8.2); Troponin I < 0.015 ng/ml (0-0.045)
[2019-07-19 20:06] LABS: Appearance Urine Clear (Clear); Bacteria Urine Automated Negative (Negative); Blood Urine Negative (Negative); Color Urine Dark Yellow; Epithelial Cell Urine Auto >30 /lpf (0-5); Glucose Urine UA 2+ (Negative); Ketones Urine Trace (Negative); Leukocyte Esterase Urine Negative (Negative); Nitrite Urine Negative (Negative); Protein Urine Trace (Negative); RBC Urine Automated 0-4 /hpf (0-4); Specific Gravity Urine 1.027 (1.000-1.030); Urobilinogen Urine Negative (Negative)
[2019-07-19 20:12] LABS: Bilirubin Urine Negative (Negative); Ictotest Urine Negative (Negative)
--- NOTE | 2019-07-19 20:12 | XRay Report ---
SINGLE VIEW CHEST CLINICAL HISTORY: Generalized weakness. FINDINGS: An AP, portable, upright chest radiograph is compared to study dated 07/09/2019 and correlat ed with chest CT dated 12/02/2016. The examination is degraded by portable technique and apical lordot ic positioning. The heart is top normal for projection. The mediastinal contour is within normal limi ts. The lungs appear hyperinflated. Numerous foci of parenchymal scarring are again seen bilaterally. No airspace consolidation or large pleural effusion is identified. No pneumothorax is seen. The skel etal structures are osteopenic. The bony thorax is grossly intact. IMPRESSION: Chronic parenchymal changes as above with no acute cardiopulmonary abnormality. Electronically signed by: Erick Bourgeois M.D. 07/19/2019 8:10 PM
[2019-07-19 20:21] LABS: Renal Epithelial Cells Urine 0-5 /lpf (0-5)
[2019-07-19] MEDS ORDERED: LEVALBUTEROL HCL 0.63 MG/3 ML NEB NEB STA (21:13)
[2019-07-19] MEDS ORDERED: methylPREDNISolone 125 MG/2 ML VIAL IV STA (21:13)
[2019-07-19] MEDS ORDERED: LACTATED RINGER'S 1,000 ML IV ONE (21:34)
[2019-07-19] MEDS ORDERED: MAGNESIUM SULFATE / D5W 1 GM/100 ML BAG IV ONE (21:35)
[2019-07-19] MEDS ORDERED: methylPREDNISolone 40 MG in SYRINGE 0 ML IV STA (21:36)
[2019-07-19] MEDS ORDERED: SODIUM CHLORIDE 0.9% 1000ML 1,000 ML IV ONE (21:41)
--- NOTE | 2019-07-19 22:27 | History & Physical Report ---
Date of Service July 19, 2019 Assessment & Plan (1) SOB (shortness of breath): w generalized weakness symptoms Anxiety contributory to symptoms transient hypoxemia chronic respiratory failure secondary to COPD on home O2 No signs of COPD exacerbation for now chronic diastolic heart failure, EF 57% TTE 2018, patient on the dry side ARF secondary to clinical dehydration hx cor pulmonale as per records, ZEYAD (CPAP intolerance) HTN, orthostasis noted at home SBP 90s at the ER intermittently PAF, NSR on Xarelto DM2 on oral medications, reasonable control as of recent outpatient hemoglobin A1c of 7.5 last June 2019 PCU Supplemental O2 Baseline ABG Baseline UA, monitor creatinine response to IV fluids, hold spironolactone, Lasix until creatinine at baseline Cardiology consult RE : Orthostasis, palpitations Basal insulin, ISS BG goal 140-180, carb count coverage PT OT eval DVT prophylaxis. Xarelto Full code History of Present Illness Chief Complaint: Generalized weakness, S OB Primary Care Provider: Mendez Swann MD History obtained from patient and records. Medical history significant for chronic respiratory failure secondary to COPD on home O2, chronic diastolic heart failure, EF 57% TTE 2019, cor pulmonale as per records, ZEYAD (CPAP intolerance), HTN, PAF on Xarelto, DM2 on oral medications , chronic pain on narcotics, history of recurrent cystitis/cystocele, history of pancreatitis as per records, IBS, constipation predominant. Recent confinement July 2018 for respiratory failure secondary to COPD exacerbation. Last few weeks patient noted irregular heartbeat symptoms, increased generalized weakness with some shortness of breath on exertion. No fluid retention. BP low on standing up as per patient. Patient denies cough, wheezing symptoms, chest pain. Patient thinks she is dehydrated. Fair appetite, denies depression. O2 sats transiently in the 80s at the ER. Patient received neb treatment. 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 Allergies Allergy/AdvReac Type Severity Reaction Status Date / Time arformoterol Allergy Severe TACHYCARDIA Unverified 07/19/19 19:20 aspirin Allergy Severe HIVES, SOB Verified 07/19/19 19:20 ciprofloxacin Allergy Severe Unknown Verified 07/19/19 19:20 clarithromycin [From Biaxin] Allergy Severe Unknown Verified 07/19/19 19:20 egg Allergy Severe Unknown Verified 07/19/19 19:20 Iodinated Contrast Media Allergy Severe "CAUSED Verified 07/19/19 19:20 ASTHMA ATTACK" metaproterenol [From Alupent] Allergy Severe Unknown Verified 07/19/19 19:20 metformin [From Riomet] Allergy Severe Unknown Verified 07/19/19 19:20 milk Allergy Severe Unknown Verified 07/19/19 19:20 NSAIDS (Non-Steroidal Allergy Severe Hives Verified 07/19/19 19:20 Anti-Inflamma Penicillins Allergy Severe SOB, HIVES Verified 07/19/19 19:20 pioglitazone [From Actos] Allergy Severe Unknown Verified 07/19/19 19:20 Sulfa (Sulfonamide Allergy Severe Anaphylaxis Verified 07/19/19 19:20 Antibiotics) tiotropium Allergy Severe Unknown Verified 07/19/19 19:20 [From Spiriva with HandiHaler] wheat Allergy Severe Unknown Verified 07/19/19 19:20 aspartame Allergy Intermediate HIVES, Verified 07/19/19 19:20 ITCHY chlorhexidine Allergy Intermediate BLISTERY Verified 07/19/19 19:20 RASH ipratropium Allergy Mild SHORTNESS Verified 07/19/19 19:20 OF BREATH povidone Allergy Mild BLISTER Verified 07/19/19 19:20 WITH TAPE fish derived Allergy Unknown Unknown Verified 07/19/19 19:20 meperidine AdvReac Intermediate Gastrointestinal Verified 07/19/19 19:20 Upset morphine AdvReac Intermediate Gastrointestinal Verified 07/19/19 19:20 Upset adhesive AdvReac Mild BLISTERS Verified 07/19/19 19:20 WITH TAPE Home Medications Home Medications Medication Instructions Recorded Confirmed Type Premarin 1 applic TOPICAL MOWEFR 07/24/18 07/19/19 History albuterol sulfate 2.5 mg INHALATION Q4 PRN 07/24/18 07/19/19 History cyclobenzaprine 5 - 10 mg PO BID PRN 07/24/18 07/19/19 History furosemide [Lasix] 20 mg PO DAILY PRN 07/24/18 07/19/19 History meclizine 25 mg PO TID PRN 07/24/18 07/19/19 History oxycodone 10 mg PO Q4 PRN 07/24/18 07/19/19 History oxycodone [OxyContin] 60 mg PO Q12H 07/24/18 07/19/19 History potassium chloride 10 meq PO DAILY PRN 07/24/18 07/19/19 History spironolactone 12.5 - 25 mg PO DAILY PRN 07/24/18 07/19/19 History benzonatate 100 mg capsule 100 mg PO TID #1 cap 06/08/19 07/19/19 History magnesium oxide 400 mg (241.3 mg 400 mg PO BID tab 06/08/19 07/19/19 History magnesium) tablet multivitamin with iron tablet 1 tab PO DAILY 06/08/19 07/19/19 History albuterol sulfate HFA 90 2 puff INHALATION Q6H PRN #3 06/17/19 07/19/19 Rx mcg/actuation aerosol inhaler inhaler levothyroxine 150 mcg capsule 150 mcg PO DAILY 06/17/19 07/19/19 History sotalol 80 mg tablet 80 mg PO BID 07/08/19 07/19/19 History hydrocortisone acetate 1 applic TOPICAL BID PRN 07/19/19 07/19/19 History metformin [Glucophage XR] 500 mg PO DAILY 07/19/19 07/19/19 History nystatin 5 ml PO QID 07/19/19 07/19/19 History rivaroxaban [Xarelto] 20 mg PO DAILY 07/19/19 07/19/19 History Past Med/Surg History Medical History Atrial fibrillation with rapid ventricular response (Acute) COPD (chronic obstructive pulmonary disease) (Chronic) Asthma (Chronic) CKD (chronic kidney disease), stage III (Chronic) Chronic respiratory failure with hypoxia, on home O2 therapy (Chronic) 3 l via NC at baseline Cor pulmonale (Chronic) Diabetes mellitus type 2, controlled (Chronic) Diverticulosis of colon (Chronic) Dyslipidemia (Chronic) Hypothyroidism (Chronic) Irritable bowel syndrome (Chronic) Osteoarthritis (Chronic) Surgical History Status post appendectomy (Chronic) Status post cataract extraction (Chronic) Status post cholecystectomy (Chronic) Status post hysterectomy (Chronic) H/O knee surgery Family History Father Asthma Lung cancer Mother Diabetes Heart disease Brother Colon cancer Daughter Diabetes Brother Stroke Social History Preferred Language: Luxembourger Communication Ability: Effective [employer] Required: No Beliefs That Will Affect Care: None marital status: Current Living Situation: Family Current Living Situation Comment: Lives with son Other Information That Helps Us Care for You: No Feels Safe at Home: Yes Safety Concerns: Feels Safe At This Time Smoking Status: Never smoker Do You Dip or Chew Tobacco: No ; Second Hand Exposure: No ; Tobacco Cessation Education Requested by Patient: No Hx Alcohol Use: No Hx Substance Use: No Review of Systems Review of Systems: As per HPI, all 10 systems reviewed, all other ROS negative Physical Exam Physical Exam: GENERAL: uncomfortable, anxious, obese, no respiratory distress SKIN: Normal color, warm HEENT: [place] palpebral conjunctivae, no ptosis, dry buccal mucosa, nasal cannula in place NECK : Supple, short neck, no tenderness CHEST : Decreased breath sounds, no tenderness HEART : RRR, no obvious murmurs ABDOMEN: Some distention, nontender EXTREMITIES : minimal LE swelling, no LE tenderness, no other conspicuous deformities noted NEUROLOGIC : Coherent, no facial asymmetry, no other gross focality Results & Data Vital Signs (Past 12 Hours) Vital Signs Temp Pulse Pulse Pulse Resp Resp BP 07/19/19 21:32 80 16 07/19/19 20:42 66 28 H 07/19/19 20:31 66 17 07/19/19 20:30 66 17 07/19/19 20:00 66 17 95/63 L 07/19/19 19:32 70 14 112/72 07/19/19 19:30 71 15 07/19/19 19:00 71 16 07/19/19 18:37 07/19/19 18:30 75 24 07/19/19 18:28 70 15 07/19/19 18:26 73 19 101/75 07/19/19 18:13 36.9 C 72 20 94/53 L Pulse Ox Pulse Ox 07/19/19 21:32 98 07/19/19 20:42 87 L 07/19/19 20:31 99 07/19/19 20:30 98 07/19/19 20:00 96 07/19/19 19:32 97 07/19/19 19:30 97 07/19/19 19:00 98 07/19/19 18:37 97 07/19/19 18:30 98 07/19/19 18:28 99 07/19/19 18:26 99 07/19/19 18:13 95 Laboratory Results Laboratory Results WBC 8.05 K/uL (4.8-10.8) 07/19/19 18:52 RBC 4.58 M/uL (4.2-5.4) 07/19/19 18:52 Hgb 13.9 g/dL (12.0-16.0) 07/19/19 18:52 Hct 41.6 % (37-47) 07/19/19 18:52 MCV 90.8 fL (80-100) 07/19/19 18:52 MCH 30.3 pg (25-34) 07/19/19 18:52 MCHC 33.4 g/dL (32-36) 07/19/19 18:52 RDW Std Deviation 46.3 fL (36.4-46.3) 07/19/19 18:52 RDW Coeff of [place] 14.0 % (11.5-14.5) 07/19/19 18:52 Plt Count 135 K/uL (130-400) 07/19/19 18:52 MPV 10.6 fL (7.4-10.4) H 07/19/19 18:52 Immature Gran % (Auto) 0.7 % 07/19/19 18:52 Neut % (Auto) 65.9 % 07/19/19 18:52 Lymph % (Auto) 22.5 % 07/19/19 18:52 [place] % (Auto) 10.9 % 07/19/19 18:52 Eos % (Auto) 0.0 % 07/19/19 18:52 Baso % (Auto) 0.0 % 07/19/19 18:52 Immature Gran # (Auto) 0.06 K/uL (0.00-0.02) H 07/19/19 18:52 Neut # (Auto) 5.30 K/uL (1.4-6.5) 07/19/19 18:52 Lymph # (Auto) 1.81 K/uL (1.2-3.4) 07/19/19 18:52 [place] # (Auto) 0.88 K/uL (0.11-0.59) H 07/19/19 18:52 Eos # (Auto) 0.00 K/uL (0-0.5) 07/19/19 18:52 Baso # (Auto) 0.00 K/uL (0-0.2) 07/19/19 18:52 PT 9.7 Seconds (9.0-12.0) 07/19/19 18:52 INR 0.9 (0.9-1.1) 07/19/19 18:52 Sodium 131 mmol/L (136-145) L 07/19/19 18:52 Potassium 3.9 mmol/L (3.5-5.1) 07/19/19 18:52 Chloride 93 mmol/L (98-107) L 07/19/19 18:52 Carbon Dioxide 31 mmol/L (21-32) 07/19/19 18:52 Anion Gap 7.0 (3-11) 07/19/19 18:52 BUN 32 mg/dl (7-18) H 07/19/19 18:52 Creatinine 1.57 mg/dl (0.6-1.2) H 07/19/19 18:52 Est Cr Clr Drug Dosing Not Reportable 07/19/19 18:52 Est GFR ( Amer) 37.8 07/19/19 18:52 Est GFR (Non-Af Amer) 32.6 07/19/19 18:52 BUN/Creatinine Ratio 20.1 (10-20) H 07/19/19 18:52 Glucose 270 mg/dl (70-99) H 07/19/19 18:52 Calcium 9.3 mg/dl (8.5-10.1) 07/19/19 18:52 Magnesium 1.9 mg/dl (1.8-2.4) 07/19/19 18:52 Total Bilirubin 0.5 mg/dl (0.2-1) 07/19/19 18:52 AST 18 U/L (15-37) 07/19/19 18:52 ALT 35 U/L (12-78) 07/19/19 18:52 Alkaline Phosphatase 60 U/L (45-117) 07/19/19 18:52 Total Creatine Kinase 36 U/L (26-192) 07/19/19 18:52 Troponin I < 0.015 ng/ml (0-0.045) 07/19/19 18:52 Total Protein 6.6 gm/dl (6.4-8.2) 07/19/19 18:52 Albumin 3.3 gm/dl (3.4-5.0) L 07/19/19 18:52 Globulin 3.3 gm/dl (2.5-4.0) 07/19/19 18:52 Albumin/Globulin Ratio 1.0 (0.9-2) 07/19/19 18:52 TSH 1.750 uIu/ml (0.300-4.500) 07/19/19 18:52 Urine Color Dark Yellow 07/19/19 19:40 Urine Appearance Clear (Clear) 07/19/19 19:40 Urine pH 5.0 (4.5-7.5) 07/19/19 19:40 Ur Specific Steen 1.027 (1.000-1.030) 07/19/19 19:40 Urine Protein Trace (Negative) H 07/19/19 19:40 Urine Glucose (UA) 2+ (Negative) H 07/19/19 19:40 Urine Ketones Trace (Negative) H 07/19/19 19:40 Urine Blood Negative (Negative) 07/19/19 19:40 Urine Nitrite Negative (Negative) 07/19/19 19:40 Urine Bilirubin Negative (Negative) 07/19/19 19:40 Urine Urobilinogen Negative (Negative) 07/19/19 19:40 Ur Leukocyte Esterase Negative (Negative) 07/19/19 19:40 Urine WBC (Auto) 1-5 /hpf (0-5) 07/19/19 19:40 Urine RBC (Auto) 0-4 /hpf (0-4) 07/19/19 19:40 U Hyaline Cast (Auto) 10-30 /lpf (0-5) H 07/19/19 19:40 U Epithel Cells (Auto) >30 /lpf (0-5) H 07/19/19 19:40 Urine Bacteria (Auto) Negative (Negative) 07/19/19 19:40 Ur Renal Epithelial Cell 0-5 /lpf (0-5) 07/19/19 19:40 Diagnostic Findings Chest x-ray : Chronic parenchymal changes as above with no acute cardiopulmonary abnormality. EKG as per my interpretation : Rate 80, NSR, normal axis, right bundle branch block, T wave flattening inferior leads, PVCs
[2019-07-19] MEDS ORDERED: POTASSIUM CHLORIDE 20 MEQ TABCR PO STA (22:45)
[2019-07-19] MEDS ORDERED: POTASSIUM CHLORIDE 10 MEQ TABCR PO ONE (22:56)
--- NOTE | 2019-07-19 23:07 | Emergency Department Note ---
Entered by Jeanne Pina acting as a scribe for ED Provider Note CHIEF COMPLAINT: Arrhythmia HISTORY OF PRESENT ILLNESS: The patient is a 74 year old female who presents to the Emergency Room with complaints of arrhythmia that began about 2 weeks ago. The patient states she has been experiencing SOB and generalized muscle weakness. At the patient's last PCP visit on the her D-dimer was normal, creatinine was 1.4, potassium was 5, WBC count was 9.9, and glucose was 313. The patient mentioned that she wears oxygen at home. Pt denies LOC, headache, fevers, chills, diaphoresis, visual changes, neck pain, chest pain, back pain, melena, hematochezia, urinary symptoms, numbness, weakness, lymphadenopathy, rash, or other complaints. REVIEW OF SYSTEMS: See HPI for pertinent positives and negatives. A total of ten systems were reviewed and were otherwise negative. PMHx/PSHx: COPD, Diabetes, Hysterectomy, Oophorectomy, Appendectomy, and Cholecystectomy. SOCIAL HISTORY: Patient lives at home. PHYSICAL EXAM: GENERAL: Awake, alert, well-appearing, in no distress HENT: Normocephalic, atraumatic. Oropharynx unremarkable. EYES: PERRL. Normal conjunctiva. Sclera non-icteric. NECK: Inspection normal. Non-tender. Supple. No nuchal rigidity. FROM. No masses. RESPIRATORY: Clear to auscultation. No wheezes. No rales. Normal respiratory effort. CARDIAC: Normal rate. Normal rhythm. No murmurs. No rubs. Extremities warm and well perfused. Pulses equal. No JVD. GI: Soft, non-distended. No tenderness to palpation. No rebound or guarding. No masses. RECTAL: Deferred. MUSCULOSKELETAL: Atraumatic. Generalized muscle tenderness. The back is symmetrical on inspection without obvious abnormality. No joint edema. LOWER EXTREMITIES: Calves are equal size bilaterally and non-tender. No edema. No discoloration. NEURO: Normal sensorium. No sensory or motor deficits noted. SKIN: No rash or jaundice noted. EMERGENCY DEPARTMENT COURSE: 1834: Past medical records reviewed. The patient was evaluated in room B08, and a complete history and physical examination were performed. 2103: I reevaluated the patient and she failed her ambulatory trial. 2150: I spoke to Dr. Oconer about the alvaro's case and he will accept the p atient for further evaluation. MEDICAL DECISION MAKING: Prior records/ancillary studies reviewed. Triage Nursing notes reviewed and agree them. Additional history obtained from the family. The patient's history was concerning for shortness of breath. Differential diagnosis: Etiologies such as pneumonia, COPD, reactive airway disease, CHF, cardiac is chemia, pulmonary embolism, pneumothorax, musculoskeletal, infections, gastrointestinal, as well as others were entertained. Physical examination: As above. ER treatment provided: Xopenex nebulizer Solu-Medrol IV Supplemental oxygen Diagnostic interpretation by me: The electrocardiogram was negative for pathologic change. The labs revealed an unremarkable CBC and chemistry panel except for hyperglycemia. Troponin negative. Imaging studies: Chest x-ray negative for acute process. Patient's laboratory studies do not show any significant abnormalities however she is very weak and cannot ambulate well. She desaturates very quickly and becomes very dyspneic with very short distances. Nursing ambulated the patient and within 50 feet she was significantly dyspneic, generally weak, could not go on, and was hypoxic. Further management in the hospital will be necessary. Consultation: A consultation was placed with the hospitalist. The case was discussed and diagnostics were reviewed. The patient was evaluated in the ER for further treatment. IMPRESSION: SOB, Weakness, Hypoxia, and COPD PLAN: Admitted to Dr. Strauss The scribe's documentation has been prepared under my direction and personally reviewed by me in its entirety. I confirm that the note above accurately reflects all work, treatment, procedures, and medical decision making performed by me. Impression & Plan SOB (shortness of breath), COPD (chronic obstructive pulmonary disease), Hypoxia, Weakness Past Med/Surg History Medical History Atrial fibrillation with rapid ventricular response (Acute) COPD (chronic obstructive pulmonary disease) (Chronic) Asthma (Chronic) CKD (chronic kidney disease), stage III (Chronic) Chronic respiratory failure with hypoxia, on home O2 therapy (Chronic) 3 l via NC at baseline Cor pulmonale (Chronic) Diabetes mellitus type 2, controlled (Chronic) Diverticulosis of colon (Chronic) Dyslipidemia (Chronic) Hypothyroidism (Chronic) Irritable bowel syndrome (Chronic) Osteoarthritis (Chronic) Surgical History Status post appendectomy (Chronic) Status post cataract extraction (Chronic) Status post cholecystectomy (Chronic) Status post hysterectomy (Chronic) H/O knee surgery Family History Father Asthma Lung cancer Mother Diabetes Heart disease Brother Colon cancer Daughter Diabetes Brother Stroke Social History Preferred Language: [place] Communication Ability: Effective Parcel Wrapper Required: No Beliefs That Will Affect Care: None marital status: Current Living Situation: Spouse Feels Safe at Home: Yes Smoking Status: Never smoker Hx Alcohol Use: No Hx Substance Use: No Results & Data Vital Signs Vital Signs - 24 hr 07/19/19 18:13 07/19/19 18:26 07/19/19 18:28 Temperature 36.9 C Temperature Source Oral Sepsis Recent Fever Within 48 Hours No Sepsis New/Unexplained Change in Mental Status No Sepsis Action Taken by Nursing No Action Required Pulse Rate 72 73 70 Pulse Rate [Exercises] Pulse Rate [Left Apical] Pulse Rate [Right Finger] Pulse Rate from SpO2 Sensor 73 71 Pulse Rhythm [Left Apical] Pulse Strength [Left Apical] Respiratory Rate 20 19 15 Respiratory Rate [Exercises] Respiratory Effort / Characteristics Respiratory Depth Respiratory Pattern Blood Pressure 94/53 L 101/75 Blood Pressure [Left Arm] Blood Pressure Mean 66 83 Blood Pressure Mean [Left Arm] Blood Pressure Position [Left Arm] Pulse Oximetry 95 99 99 Pulse Oximetry [Exercises] Oxygen Delivery Method Nasal Cannula Oxygen Flow Rate 2 07/19/19 18:30 07/19/19 18:37 07/19/19 19:00 Temperature Temperature Source Sepsis Recent Fever Within 48 Hours Sepsis New/Unexplained Change in Mental Status Sepsis Action Taken by Nursing Pulse Rate 75 71 Pulse Rate [Exercises] Pulse Rate [Left Apical] Pulse Rate [Right Finger] Pulse Rate from SpO2 Sensor 71 71 Pulse Rhythm [Left Apical] Pulse Strength [Left Apical] Respiratory Rate 24 16 Respiratory Rate [Exercises] Respiratory Effort / Characteristics Respiratory Depth Respiratory Pattern Blood Pressure Blood Pressure [Left Arm] Blood Pressure Mean Blood Pressure Mean [Left Arm] Blood Pressure Position [Left Arm] Pulse Oximetry 98 97 98 Pulse Oximetry [Exercises] Oxygen Delivery Method Nasal Cannula Oxygen Flow Rate 3 07/19/19 19:30 07/19/19 19:32 07/19/19 20:00 Temperature Temperature Source Sepsis Recent Fever Within 48 Hours Sepsis New/Unexplained Change in Mental Status Sepsis Action Taken by Nursing Pulse Rate 71 70 66 Pulse Rate [Exercises] Pulse Rate [Left Apical] Pulse Rate [Right Finger] Pulse Rate from SpO2 Sensor 70 70 66 Pulse Rhythm [Left Apical] Pulse Strength [Left Apical] Respiratory Rate 15 14 17 Respiratory Rate [Exercises] Respiratory Effort / Characteristics Respiratory Depth Respiratory Pattern Blood Pressure 112/72 95/63 L Blood Pressure [Left Arm] Blood Pressure Mean 85 73 Blood Pressure Mean [Left Arm] Blood Pressure Position [Left Arm] Pulse Oximetry 97 97 96 Pulse Oximetry [Exercises] Oxygen Delivery Method Oxygen Flow Rate 07/19/19 20:30 07/19/19 20:31 07/19/19 20:42 Temperature Temperature Source Sepsis Recent Fever Within 48 Hours Sepsis New/Unexplained Change in Mental Status Sepsis Action Taken by Nursing Pulse Rate 66 66 Pulse Rate [Exercises] 66 Pulse Rate [Left Apical] Pulse Rate [Right Finger] Pulse Rate from SpO2 Sensor 66 67 Pulse Rhythm [Left Apical] Pulse Strength [Left Apical] Respiratory Rate 17 17 Respiratory Rate [Exercises] 28 H Respiratory Effort / Characteristics Respiratory Depth Respiratory Pattern Blood Pressure Blood Pressure [Left Arm] Blood Pressure Mean 72 Blood Pressure Mean [Left Arm] Blood Pressure Position [Left Arm] Pulse Oximetry 98 99 Pulse Oximetry [Exercises] 87 L Oxygen Delivery Method Nasal Cannula Oxygen Flow Rate 3 07/19/19 21:32 07/19/19 22:00 07/19/19 22:55 Temperature Temperature Source Sepsis Recent Fever Within 48 Hours Sepsis New/Unexplained Change in Mental Status Sepsis Action Taken by Nursing Pulse Rate Pulse Rate [Exercises] Pulse Rate [Left Apical] 73 Pulse Rate [Right Finger] 80 Pulse Rate from SpO2 Sensor Pulse Rhythm [Left Apical] Regular Pulse Strength [Left Apical] Normal Respiratory Rate 16 23 Respiratory Rate [Exercises] Respiratory Effort / Characteristics Non-Labored Non-Labored Spontaneous SOB on Exertion Respiratory Depth Normal Respiratory Pattern Regular Blood Pressure Blood Pressure [Left Arm] 132/76 Blood Pressure Mean Blood Pressure Mean [Left Arm] 94 Blood Pressure Position [Left Arm] Lying Pulse Oximetry 98 98 Pulse Oximetry [Exercises] Oxygen Delivery Method Nasal Cannula Nasal Cannula Nasal Cannula Oxygen Flow Rate 3.5 3 3 Home Medications Current Medication List: was personally reviewed by me Laboratory Data Attestation: I reviewed the patient's lab results. Result diagrams: 07/19/19 18:52 09/29/19 18:52 Lab Results 07/19/19 07/19/19 07/19/19 Range/Units 18:52 18:52 18:52 WBC 8.05 (4.8-10.8) K/uL RBC 4.58 (4.2-5.4) M/uL Hgb 13.9 (12.0-16.0) g/dL Hct 41.6 (37-47) % MCV 90.8 (80-100) fL MCH 30.3 (25-34) pg MCHC 33.4 (32-36) g/dL RDW Std Deviation 46.3 (36.4-46.3) fL RDW Coeff of [place] 14.0 (11.5-14.5) % Plt Count 135 (130-400) K/uL MPV 10.6 H (7.4-10.4) fL Immature Gran % (Auto) 0.7 % Neut % (Auto) 65.9 % Lymph % (Auto) 22.5 % Miner % (Auto) 10.9 % Eos % (Auto) 0.0 % Baso % (Auto) 0.0 % Immature Gran # (Auto) 0.06 H (0.00-0.02) K/uL Neut # (Auto) 5.30 (1.4-6.5) K/uL Lymph # (Auto) 1.81 (1.2-3.4) K/uL Miner # (Auto) 0.88 H (0.11-0.59) K/uL Eos # (Auto) 0.00 (0-0.5) K/uL Baso # (Auto) 0.00 (0-0.2) K/uL PT 9.7 (9.0-12.0) Seconds INR 0.9 (0.9-1.1) Sodium 131 L (136-145) mmol/L Potassium 3.9 (3.5-5.1) mmol/L Chloride 93 L (98-107) mmol/L Carbon Dioxide 31 (21-32) mmol/L Anion Gap 7.0 (3-11) BUN 32 H (7-18) mg/dl Creatinine 1.57 H (0.6-1.2) mg/dl Est Cr Clr Drug Dosing Not Reportable Est GFR ( Amer) 37.8 Est GFR (Non-Af Amer) 32.6 BUN/Creatinine Ratio 20.1 H (10-20) Glucose 270 H (70-99) mg/dl Calcium 9.3 (8.5-10.1) mg/dl Magnesium 1.9 (1.8-2.4) mg/dl Total Bilirubin 0.5 (0.2-1) mg/dl AST 18 (15-37) U/L ALT 35 (12-78) U/L Alkaline Phosphatase 60 (45-117) U/L Total Creatine Kinase 36 (26-192) U/L Troponin I < 0.015 (0-0.045) ng/ml Total Protein 6.6 (6.4-8.2) gm/dl Albumin 3.3 L (3.4-5.0) gm/dl Globulin 3.3 (2.5-4.0) gm/dl Albumin/Globulin Ratio 1.0 (0.9-2) TSH 1.750 (0.300-4.500) uIu/ml Urine Color Urine Appearance (Clear) Urine pH (4.5-7.5) Ur Specific [place] (1.000-1.030) Urine Protein (Negative) Urine Glucose (UA) (Negative) Urine Ketones (Negative) Urine Blood (Negative) Urine Nitrite (Negative) Urine Bilirubin (Negative) Urine Urobilinogen (Negative) Ur Leukocyte Esterase (Negative) Urine WBC (Auto) (0-5) /hpf Urine RBC (Auto) (0-4) /hpf U Hyaline Cast (Auto) (0-5) /lpf U Epithel Cells (Auto) (0-5) /lpf Urine Bacteria (Auto) (Negative) Ur Renal Epithelial Cell (0-5) /lpf 07/19/19 Range/Units 19:40 WBC (4.8-10.8) K/uL RBC (4.2-5.4) M/uL Hgb (12.0-16.0) g/dL Hct (37-47) % MCV (80-100) fL MCH (25-34) pg MCHC (32-36) g/dL RDW Std Deviation (36.4-46.3) fL RDW Coeff of Lawrence (11.5-14.5) % Plt Count (130-400) K/uL MPV (7.4-10.4) fL Immature Gran % (Auto) % Neut % (Auto) % Lymph % (Auto) % Miner % (Auto) % Eos % (Auto) % Baso % (Auto) % Immature Gran # (Auto) (0.00-0.02) K/uL Neut # (Auto) (1.4-6.5) K/uL Lymph # (Auto) (1.2-3.4) K/uL Miner # (Auto) (0.11-0.59) K/uL Eos # (Auto) (0-0.5) K/uL Baso # (Auto) (0-0.2) K/uL PT (9.0-12.0) Seconds INR (0.9-1.1) Sodium (136-145) mmol/L Potassium (3.5-5.1) mmol/L Chloride (98-107) mmol/L Carbon Dioxide (21-32) mmol/L Anion Gap (3-11) BUN (7-18) mg/dl Creatinine (0.6-1.2) mg/dl Est Cr Clr Drug Dosing Est GFR ( Amer) Est GFR (Non-Af Amer) BUN/Creatinine Ratio (10-20) Glucose (70-99) mg/dl Calcium (8.5-10.1) mg/dl Magnesium (1.8-2.4) mg/dl Total Bilirubin (0.2-1) mg/dl AST (15-37) U/L ALT (12-78) U/L Alkaline Phosphatase (45-117) U/L Total Creatine Kinase (26-192) U/L Troponin I (0-0.045) ng/ml Total Protein (6.4-8.2) gm/dl Albumin (3.4-5.0) gm/dl Globulin (2.5-4.0) gm/dl Albumin/Globulin Ratio (0.9-2) TSH (0.300-4.500) uIu/ml Urine Color Dark Yellow Urine Appearance Clear (Clear) Urine pH 5.0 (4.5-7.5) Ur Specific [place] 1.027 (1.000-1.030) Urine Protein Trace H (Negative) Urine Glucose (UA) 2+ H (Negative) Urine Ketones Trace H (Negative) Urine Blood Negative (Negative) Urine Nitrite Negative (Negative) Urine Bilirubin Negative (Negative) Urine Urobilinogen Negative (Negative) Ur Leukocyte Esterase Negative (Negative) Urine WBC (Auto) 1-5 (0-5) /hpf Urine RBC (Auto) 0-4 (0-4) /hpf U Hyaline Cast (Auto) 10-30 H (0-5) /lpf U Epithel Cells (Auto) >30 H (0-5) /lpf Urine Bacteria (Auto) Negative (Negative) Ur Renal Epithelial Cell 0-5 (0-5) /lpf Administered Medications Discontinued Medications Lactated Ringer's (Lr) 1,000 mls @ 500 mls/hr IV .Q2H ONE Stop: 07/19/19 23:33 Last Admin: 07/19/19 22:20 Dose: Not Given Documented by: [id number] Magnesium Sulfate/Dextrose (Magnesium Sulfate / D5w) 1 gm in 100 mls @ 100 mls/hr IV ONE ONE Stop: 07/19/19 22:34 Last Admin: 07/19/19 22:18 Dose: 100 mls/hr Documented by: [id number] Sodium Chloride (Nss 1000ml) 1,000 mls @ 999 mls/hr IV .Q1H1M ONE Stop: 07/19/19 22:41 Last Admin: 07/19/19 22:18 Dose: 999 mls/hr Documented by: [id number] Levalbuterol HCl (Xopenex 0.63 Mg/3 Ml Neb) 0.63 mg NEB NOW STA Stop: 07/19/19 21:14 Last Admin: 07/19/19 21:32 Dose: 0.63 mg Documented by: [id number] Methylprednisolone (Solumedrol) 125 mg IV NOW STA Stop: 07/19/19 21:14 Last Admin: 07/19/19 22:19 Dose: Not Given Documented by: [id number] Methylprednisolone (Solumedrol) 40 mg IV NOW STA Stop: 07/19/19 21:45 Last Admin: 07/19/19 22:19 Dose: Not Given Documented by: [id number] Potassium Chloride (Klor-Con M10) Confirm Administered Dose 20 meq PO .STK-MED ONE Stop: 07/19/19 22:57 Last Admin: 07/19/19 22:57 Dose: 20 meq Documented by: [id number] Imaging Data Radiologist's Impression: Radiology results as stated below per my review and the radiologist's interpretation: SINGLE VIEW CHEST CLINICAL HISTORY: Generalized weakness. FINDINGS: An AP, portable, upright chest radiograph is compared to study dated 07/09/2019 and correlated with chest CT dated 12/02/2016. The examination is degraded by portable technique and apical lordotic positioning. The heart is top normal for projection. The mediastinal contour is within normal limits. The lungs appear hyperinflated. Numerous foci of parenchymal scarring are again seen bilaterally. No airspace consolidation or large pleural effusion is identified. No pneumothorax is seen. The skeletal structures are osteopenic. The bony thorax is grossly intact. IMPRESSION: Chronic parenchymal changes as above with no acute cardiopulmonary abnormality. Electronically signed by: Erick Bourgeois M.D. 07/19/2019 8:10 PM ECG Data Attestation: I personally reviewed and interpreted this ECG as follows: Indication: other (Arrhythmia) Rate (beats per minute): 77 Rhythm: sinus rhythm Findings: + other (Normal QRS); no PAC, no ST depression and no ST elevation Blood Pressure Blood Pressure Findings: Low blood pressure Blood Pressure Disposition: Referred to patients primary care provider Discharge Plan Visit Data Chief Complaint: Arrhythmia/Palpitations Stated Complaint: IRREGULAR HEART BEAT, HYPOTENSION, NAUSEA, WEAK ED Provider: Can Reyes Discharge Problem: SOB (shortness of breath), COPD (chronic obstructive pulmonary disease), Hypoxia, Weakness Discharge Instructions Interventions: ED Discharge Assessment Last Done: 07/19/19 22:55 Forms Stand Alone Forms: My [facility] Prescriptions Prescriptions: No Action sotalol [Betapace] 80 mg tablet 80 mg PO BID RF: 0 magnesium oxide [MagOx] 400 mg (241.3 mg magnesium) tablet 400 mg PO BID RF: 0 multivitamin with iron tablet 1 tab PO DAILY RF: 0 benzonatate [Tessalon Perles] 100 mg capsule 100 mg PO TID Qty: 1 RF: 0 levothyroxine 150 mcg capsule 150 mcg PO DAILY RF: 0 albuterol sulfate [Ventolin HFA] 90 mcg/actuation HFA aerosol inhaler 2 puff INHALATION Q6H PRN (Reason: Shortness Of Breath Or Wheezing) Qty: 3 RF: 1 cyclobenzaprine 10 mg Tablet 5 - 10 mg PO BID PRN (Reason: Muscle Spasm) RF: 0 furosemide [Lasix] 40 mg Tablet 20 mg PO DAILY PRN (Reason: Fluid Retention) RF: 0 albuterol sulfate 2.5 mg /3 mL (0.083 %) Solution For Nebulization 2.5 mg INHALATION Q4 PRN (Reason: Shortness Of Breath Or Wheezing) RF: 0 potassium chloride 10 mEq Tablet Extended Release 10 meq PO DAILY PRN (Reason: Other) RF: 0 spironolactone 25 mg Tablet 12.5 - 25 mg PO DAILY PRN (Reason: Fluid Retention) RF: 0 meclizine 25 mg Tablet 25 mg PO TID PRN (Reason: Dizziness) RF: 0 Premarin 0.625 mg/gram Cream 1 applic Topical MOWEFR RF: 0 oxycodone 10 mg Tablet 10 mg PO Q4 PRN (Reason: Pain) RF: 0 oxycodone [OxyContin] 60 mg Tablet Extended Release 12hr 60 mg PO Q12H RF: 0 nystatin 100,000 unit/mL suspension 5 ml PO QID RF: 0 metformin [Glucophage XR] 500 mg tablet extended release 24 hr 500 mg PO DAILY RF: 0 Xarelto 20 mg tablet 20 mg PO DAILY RF: 0 hydrocortisone acetate 1 % Cream 1 applic TOPICAL BID PRN (Reason: HEMMORIODS) RF: 0 Referrals Referrals: Mendez Swann MD [Primary Care Provider] - Discharge Problem: COPD (chronic obstructive pulmonary disease) Qualifiers: COPD type: unspecified COPD Qualified Code(s): J44.9 - Chronic obstructive pulmonary disease, unspecified The scribe's documentation has been prepared under my direction and personally reviewed by me in its entirety. I confirm that the note above accurately reflects all work, treatment, procedures, and medical decision making performed by me.
[2019-07-19 23:16] LABS: Influenza A virus by PCR Neg for Influ A (Neg); Influenza B virus by PCR Neg for Influ B (Neg)
[2019-07-19] MEDS ORDERED: XOPENEX/ATROVENT 1.25mg/0.5MG NEB COMBO NEB PRN (23:40)
[2019-07-19] MEDS ORDERED: DEXTROSE 50% 50 ML SYRINGE IV PRN (23:40)
[2019-07-19] MEDS ORDERED: GLUCOSE 10 TABS/TUBE PO PRN (23:40)
[2019-07-19] MEDS ORDERED: GLUCAGON FOR INJ 1 MG VIAL SQ PRN (23:40)
[2019-07-19] MEDS ORDERED: GLUCOSE 40% GEL 15 GM TUBE PO PRN (23:40)
[2019-07-19] MEDS ORDERED: CARBOHYDRATES FOR HYPOGLYCEMIA PO PRN (23:40)
[2019-07-19] MEDS ORDERED: NITROGLYCERIN SL 0.4 MG/TAB TAB SL PRN (23:40)
[2019-07-19] MEDS ORDERED: MECLIZINE HCL 25 MG TAB PO PRN (23:40)
[2019-07-20] MEDS ORDERED: NSS + 20MEQ KCL 20 MEQ/1,000 ML BAG IV ONE
[2019-07-20 00:14] LABS: iSTAT Allen Test Pass; iSTAT Arterial Blood Gas HCO3 31 meg/L (19-24); iSTAT Arterial Blood Gas pCO2 46 mmHg (35-46); iSTAT Arterial Blood Gas pH 7.43 (7.35-7.45); iSTAT Arterial Blood Gas pO2 116 mmHg (80-95); iSTAT Carbon Dioxide 32 mEq/l (24-31); iSTAT Site R Brachial
[2019-07-20] MEDS: INSULIN GLARGINE SOLOSTAR 100 UNITS/ML 3 ML PEN SQ SCH ×4 (00:44→20:54)
[2019-07-20] MEDS: OXYCODONE HCL 40 MG TABCR (OXYCONTIN) PO SCH ×3 (00:44→20:53)
[2019-07-20] MEDS: OXYCODONE HCL 20 MG TABCR (OXYCONTIN) PO SCH ×4 (00:44→07:51)
[2019-07-20] MEDS: INSULIN ASPART 100 UNITS/ML 3 ML PEN SC SCH ×5 (00:47→20:56)
[2019-07-20] MEDS: LEVOTHYROXINE SODIUM 150 MCG TABLET PO SCH (06:10)
[2019-07-20 07:17] LABS: Eosinophils # (auto) 0.04 K/uL (0-0.5); Eosinophils % (auto) 0.5 %; Hematocrit (blood only) 37.8 % (37-47); Hemoglobin 12.6 g/dL (12.0-16.0); Immature Granulocytes # (auto) 0.06 K/uL (0.00-0.02); Immature Granulocytes % (auto) 0.8 %; Lymphocytes % (auto) 28.1 %; Mean Corpuscular Hemoglobin 30.2 pg (25-34); Mean Corpuscular Hgb Conc 33.3 g/dL (32-36); Mean Corpuscular Volume 90.6 fL (80-100); Mean Platelet Volume 10.5 fL (7.4-10.4); Monocytes # (auto) 0.86 K/uL (0.11-0.59); Monocytes % (auto) 11.5 %; Neutrophils # (auto) 4.41 K/uL (1.4-6.5); Neutrophils % (auto) 59.1 %; Platelet Count 132 K/uL (130-400); RDW Coefficient of Variation 14.2 % (11.5-14.5); RDW Standard Deviation 46.8 fL (36.4-46.3); Red Blood Count 4.17 M/uL (4.2-5.4); White Blood Count 7.47 K/uL (4.8-10.8)
[2019-07-20] MEDS: RIVAROXABAN 20 MG TAB PO SCH (07:45)
[2019-07-20] MEDS: SOTALOL HCL 80 MG TAB PO SCH ×2 (07:45→10:24)
[2019-07-20] MEDS: CEROVITE ADV FORMULA TAB PO SCH (07:45)
[2019-07-20] MEDS: BENZONATATE 100 MG CAPSULE PO SCH ×3 (07:45→20:53)
[2019-07-20 07:52] LABS: BUN Creatinine Ratio 21.8 (10-20); Calcium 8.9 mg/dl (8.5-10.1); Creatinine Clr Calc Pharmacy 54.7 ml/min; Est GFR (African American) 51.8; Est GFR (Non-African American) 44.7; Potassium 4.1 mmol/L (3.5-5.1)
--- NOTE | 2019-07-20 09:54 | Hospitalist Progress Note ---
Date of Service July 20, 2019 Assessment & Plan (1) SOB (shortness of breath): w generalized weakness symptoms Anxiety contributory to symptoms transient hypoxemia chronic respiratory failure secondary to COPD on home O2 No signs of COPD exacerbation for now chronic diastolic heart failure, EF 57% TTE 2018, patient on the dry side ARF secondary to clinical dehydration hx cor pulmonale as per records, ZEYAD (CPAP intolerance) HTN, orthostasis noted at home SBP 90s at the ER intermittently PAF, NSR on Xarelto DM2 on oral medications, reasonable control as of recent outpatient hemoglobin A1c of 7.5 last June 2019 PCU Supplemental O2 Baseline ABG Baseline UA, monitor creatinine response to IV fluids, hold spironolactone, Lasix until creatinine at baseline Cardiology consult RE : Orthostasis, palpitations Basal insulin, ISS BG goal 140-180, carb count coverage PT OT eval DVT prophylaxis. Xarelto Full code (2) Weakness: LIKELY MULTIFACTORIAL SECONDARY TO DEHYDRATION Hold Lasix, gentle IV fluids FROM SOTALOL? Addition to Tikosyn, per cardiology recommendation FROM OXYCODONE? Lower dose from 60 to 40 mg twice daily and then taper ORTHOSTATIC HYPOTENSION Reported in H&P Gentle IV fluids Monitor blood pressure May need cortisol stimulation test if persistent TSH within normal limits ACUTE RENAL FAILURE Baseline creatinine 1.08, presented with 1.5, IV fluids given Creatinine now 1.2, monitor COPD, chronic hypoxic respiratory failure At baseline Obstructive sleep apnea Continue BiPAP Chronic CHF diastolic type Patient on the dry side, Lasix held Paroxysmal atrial fibrillation on Xarelto Sotalol changed to Tikosyn, continue Xarelto Diabetes type 2 Continue insulin sliding scale Hypertension Stable monitor Chronic pain syndrome Oxycodone will be reduced in light of weakness, orthostatic hypotension Monitor DVT prophylaxis Already on Xarelto Disposition Lives with family at home Will need PT and OT evaluation Subjective 74-year-old female with history of chronic respiratory failure and COPD on home O2, Sleep apnea, CHF diastolic type, paroxysmal atrial fibrillation on Xarelto, diabetes, hypertension, chronic pain Presenting with weakness times few days Seen sitting up in bed, comfortable, on 2 L nasal cannula which is her baseline States she feels improved compared to yesterday Main symptom is weakness x2 weeks Denies changes with breathing, no cough, no sputum, no fevers or chills No active chest pain, dizziness, nausea, abdominal pain Denies other symptoms Review of Systems Review of Systems: All systems reviewed & are unremarkable except as noted in HPI & below Physical Exam Physical Exam: General- oriented x 3, not in distress, speaks in sentences with no effort or accessory muscle use Head- atraumatic Eyes- PERRL, EOMI, anicteric ENT- oropharynx clear Neck- supple, no JVD, no adenopathy, no thyromegaly; carotids +2/2, no bruits appreciated Lungs- clear to auscultation bilaterally, no rales/wheezes Heart- normal rate, regular rhythm; no murmur, no gallop, no rub appreciated Abdomen- normal bowel sounds, nondistended, soft, nontender, no masses or hepatosplenomegaly Extremities-trace pretibial edema, no calf tenderness; peripheral pulses intact Neuro- alert, oriented x 3; CN 2-12 grossly intact; motor 5/5 bilaterally;sensation 100% on all extremities; no other gross focal neurologic deficits Skin- warm & dry Results & Data Vital Signs (Past 12 Hours) Vital Signs Temp Pulse Pulse Pulse Resp BP Pulse Ox 07/20/19 07:41 71 07/20/19 07:08 36.9 C 73 18 108/55 L 98 07/20/19 03:50 36.9 C 66 0 L 16 146/70 H 94 07/19/19 23:43 36.7 C 74 74 20 133/80 99 07/19/19 22:00 73 23 132/76 98
[2019-07-20] MEDS: PROMETHAZINE HCL 12.5 MG in SODIUM CHLORIDE 0.9% 50 ML IV PRN (10:19)
--- NOTE | 2019-07-20 10:32 | Cardiology Consultation ---
Date of Consultation July 20, 2019 Assessment & Plan (1) Paroxysmal atrial fibrillation: Patient currently on sotalol though feels multiple exacerbations and complaints may be in part for relationship to the use of this medication. This may well be as patient's pulmonary status is chronically marginal and issues required chronic and intermittent corticosteroids. Plan as patient is currently hospitalized. Will use opportunity to change antiarrhythmic therapy. Will discontinue sotalol, begin Tikosyn in 24 hours. Patient will require 48 to 72 hours monitoring after Tikosyn initiated Agree with current plans holding furosemide and spironolactone given mild orthostasis. Continue anticoagulation with Xarelto May need assessment for adrenal insufficiency if orthostasis persists (2) COPD (chronic obstructive pulmonary disease): Severe, continue bronchodilators oxygen and nocturnal ventilatory supplementation (3) Hypoxia: History of Present Illness Reason for Consultation: Paroxysmal atrial fibrillation palpitations orthostasis Requesting Physician: Dr. Masood Rushing Attending Physician: Masood Rushing MD History of Present Illness Patient is a very complex 74-year-old female with underlying cardiac issues and medical issues as below 1. Paroxysmal atrial fibrillation. Rhythm control with Sotalol. 2. Severe chronic obstructive lung disease, asthmatic lung disease, O2 dependent. 3. Sleep apnea, PAP intolerant. 4. Type 2 diabetes mellitus. 5. Chronic sinus tachycardia. 6. Stage III chronic kidney disease 7. History of past pancreatitis 8. Dyslipidemia. 9. Hypothyroidism Patient presents on referral noting complaints of worsening wheezing and cough has been treated multiple times for COPD exacerbations recently per patient with high-dose corticosteroids. The last several weeks she is noted marked fatigue especially with any type of activity or exertion. Stress testing in March was negative for ischemia. Notes orthostasis on standing occasional sensation of palpitations feel symptoms of progressively worsened sotalol but gone. Denies unexplained fevers or infections. Notes no bleeding difficulties. Notes no signs of fluid retention or edema. Appetite's been fair. Has been taking medications as prescribed. Notes bleeding issues have been improved (easy bruising) since switch from Eliquis to Xarelto. Currently in sinus with atrial and ventricular ectopy no atrial fibrillation observed Allergies Allergy/AdvReac Type Severity Reaction Status Date / Time arformoterol Allergy Severe TACHYCARDIA Unverified 07/19/19 19:20 aspirin Allergy Severe HIVES, SOB Verified 07/19/19 19:20 ciprofloxacin Allergy Severe Unknown Verified 07/19/19 19:20 clarithromycin [From Biaxin] Allergy Severe Unknown Verified 07/19/19 19:20 egg Allergy Severe Unknown Verified 07/19/19 19:20 Iodinated Contrast Media Allergy Severe "CAUSED Verified 07/19/19 19:20 ASTHMA ATTACK" metaproterenol [From Alupent] Allergy Severe Unknown Verified 07/19/19 19:20 metformin [From Riomet] Allergy Severe Unknown Verified 07/19/19 19:20 milk Allergy Severe Unknown Verified 07/19/19 19:20 NSAIDS (Non-Steroidal Allergy Severe Hives Verified 07/19/19 19:20 Anti-Inflamma Penicillins Allergy Severe SOB, HIVES Verified 07/19/19 19:20 pioglitazone [From Actos] Allergy Severe Unknown Verified 07/19/19 19:20 Sulfa (Sulfonamide Allergy Severe Anaphylaxis Verified 07/19/19 19:20 Antibiotics) tiotropium Allergy Severe Unknown Verified 07/19/19 19:20 [From Spiriva with HandiHaler] wheat Allergy Severe Unknown Verified 07/19/19 19:20 aspartame Allergy Intermediate HIVES, Verified 07/19/19 19:20 ITCHY chlorhexidine Allergy Intermediate BLISTERY Verified 07/19/19 19:20 RASH ipratropium Allergy Mild SHORTNESS Verified 07/19/19 19:20 OF BREATH povidone Allergy Mild BLISTER Verified 07/19/19 19:20 WITH TAPE fish derived Allergy Unknown Unknown Verified 07/19/19 19:20 meperidine AdvReac Intermediate Gastrointestinal Verified 07/19/19 19:20 Upset morphine AdvReac Intermediate Gastrointestinal Verified 07/19/19 19:20 Upset adhesive AdvReac Mild BLISTERS Verified 07/19/19 19:20 WITH TAPE Home Medications Home Medications Medication Instructions Recorded Confirmed Type Premarin 1 applic TOPICAL MOWEFR 07/24/18 07/19/19 History albuterol sulfate 2.5 mg INHALATION Q4 PRN 07/24/18 07/19/19 History cyclobenzaprine 5 - 10 mg PO BID PRN 07/24/18 07/19/19 History furosemide [Lasix] 20 mg PO DAILY PRN 07/24/18 07/19/19 History meclizine 25 mg PO TID PRN 07/24/18 07/19/19 History oxycodone 10 mg PO Q4 PRN 07/24/18 07/19/19 History oxycodone [OxyContin] 60 mg PO Q12H 07/24/18 07/19/19 History potassium chloride 10 meq PO DAILY PRN 07/24/18 07/19/19 History spironolactone 12.5 - 25 mg PO DAILY PRN 07/24/18 07/19/19 History benzonatate 100 mg capsule 100 mg PO TID #1 cap 06/08/19 07/19/19 History magnesium oxide 400 mg (241.3 mg 400 mg PO BID tab 06/08/19 07/19/19 History magnesium) tablet multivitamin with iron tablet 1 tab PO DAILY 06/08/19 07/19/19 History albuterol sulfate HFA 90 2 puff INHALATION Q6H PRN #3 06/17/19 07/19/19 Rx mcg/actuation aerosol inhaler inhaler levothyroxine 150 mcg capsule 150 mcg PO DAILY 06/17/19 07/19/19 History sotalol 80 mg tablet 80 mg PO BID 07/08/19 07/19/19 History hydrocortisone acetate 1 applic TOPICAL BID PRN 07/19/19 07/19/19 History metformin [Glucophage XR] 500 mg PO DAILY 07/19/19 07/19/19 History nystatin 5 ml PO QID 07/19/19 07/19/19 History rivaroxaban [Xarelto] 20 mg PO DAILY 07/19/19 07/19/19 History Patient History Medical History Atrial fibrillation with rapid ventricular response (Acute) COPD (chronic obstructive pulmonary disease) (Chronic) Asthma (Chronic) CKD (chronic kidney disease), stage III (Chronic) Chronic respiratory failure with hypoxia, on home O2 therapy (Chronic) 3 l via NC at baseline Cor pulmonale (Chronic) Diabetes mellitus type 2, controlled (Chronic) Diverticulosis of colon (Chronic) Dyslipidemia (Chronic) Hypothyroidism (Chronic) Irritable bowel syndrome (Chronic) Osteoarthritis (Chronic) Surgical History Status post appendectomy (Chronic) Status post cataract extraction (Chronic) Status post cholecystectomy (Chronic) Status post hysterectomy (Chronic) H/O knee surgery Family History Father Asthma Lung cancer Mother Diabetes Heart disease Brother Colon cancer Daughter Diabetes Brother Stroke Social History Preferred Language: Nigerian Communication Ability: Effective Roving Winder Required: No Beliefs That Will Affect Care: None marital status: Current Living Situation: Family Current Living Situation Comment: Lives with son Other Information That Helps Us Care for You: No Feels Safe at Home: Yes Safety Concerns: Feels Safe At This Time Smoking Status: Never smoker Do You Dip or Chew Tobacco: No ; Second Hand Exposure: No ; Tobacco Cessation Education Requested by Patient: No Hx Alcohol Use: No Hx Substance Use: No Review of Systems Review of Systems: All systems reviewed & are unremarkable except as noted in HPI & below Physical Exam Constitutional: + ill appearing, + obese and + cushingoid Eyes: PERRL, conjunctivae normal, anicteric sclerae ENMT: external ear and nose normal, oropharynx normal Neck: trachea midline, no thyromegaly Respiratory: Auscultation: + diminished lung sounds and + wheezes Cardiovascular: Rate/Rhythm: regular rate and regular rhythm Heart Sounds: normal S1 and normal S2; no gallop and no murmur Palpation: normal PMI Vessels: normal carotid upstroke and radial pulses present; no JVD and no carotid bruit Extremities: no edema Gastrointestinal (Abdomen): normal bowel sounds, soft, nontender, no hepatosplenomegaly Musculoskeletal: no cyanosis or clubbing, extremities motor strength 5/5 Skin: no rashes, warm and dry Neurologic: PERRL, EOMI, accommodation nl, no face palsy, no dysarthria Psychiatric: A+Ox3, euthymic affect Results & Data Vital Signs (Past 12 Hours) Vital Signs Temp Pulse Pulse Pulse Resp BP Pulse Ox 07/20/19 07:41 71 07/20/19 07:08 36.9 C 73 18 108/55 L 98 07/20/19 03:50 36.9 C 66 0 L 16 146/70 H 94 07/19/19 23:43 36.7 C 74 74 20 133/80 99 Laboratory Results Laboratory Results - last 24 hr 07/19/19 07/19/19 07/19/19 18:52 18:52 18:52 WBC 8.05 RBC 4.58 Hgb 13.9 Hct 41.6 MCV 90.8 MCH 30.3 MCHC 33.4 RDW Std Deviation 46.3 RDW Coeff of [place] 14.0 Plt Count 135 MPV 10.6 H Immature Gran % (Auto) 0.7 Neut % (Auto) 65.9 Lymph % (Auto) 22.5 [place] % (Auto) 10.9 Eos % (Auto) 0.0 Baso % (Auto) 0.0 Immature Gran # (Auto) 0.06 H Neut # (Auto) 5.30 Lymph # (Auto) 1.81 [place] # (Auto) 0.88 H Eos # (Auto) 0.00 Baso # (Auto) 0.00 PT 9.7 INR 0.9 Sample Site POC pH POC pCO2 POC pO2 POC HCO3 POC Total CO2 POC Base Excess POC ABG O2 Sat Rory Test O2 Delivery Device Sodium 131 L Potassium 3.9 Chloride 93 L Carbon Dioxide 31 Anion Gap 7.0 BUN 32 H Creatinine 1.57 H Est Cr Clr Drug Dosing Not Reportable Est GFR ( Amer) 37.8 Est GFR (Non-Af Amer) 32.6 BUN/Creatinine Ratio 20.1 H Glucose 270 H POC Glucose Lactate Calcium 9.3 Magnesium 1.9 Total Bilirubin 0.5 AST 18 ALT 35 Alkaline Phosphatase 60 Total Creatine Kinase 36 Troponin I < 0.015 Total Protein 6.6 Albumin 3.3 L Globulin 3.3 Albumin/Globulin Ratio 1.0 TSH 1.750 Urine Color Urine Appearance Urine pH Ur Specific [place] Urine Protein Urine Glucose (UA) Urine Ketones Urine Blood Urine Nitrite Urine Bilirubin Urine Urobilinogen Ur Leukocyte Esterase Urine WBC (Auto) Urine RBC (Auto) U Hyaline Cast (Auto) U Epithel Cells (Auto) Urine Bacteria (Auto) Ur Renal Epithelial Cell Influenza Type A (PCR) Influenza Type B (PCR) 07/19/19 07/19/19 07/19/19 19:40 22:00 23:42 WBC RBC Hgb Hct MCV MCH MCHC RDW Std Deviation RDW Coeff of [place] Plt Count MPV Immature Gran % (Auto) Neut % (Auto) Lymph % (Auto) [place] % (Auto) Eos % (Auto) Baso % (Auto) Immature Gran # (Auto) Neut # (Auto) Lymph # (Auto) [place] # (Auto) Eos # (Auto) Baso # (Auto) PT INR Sample Site POC pH POC pCO2 POC pO2 POC HCO3 POC Total CO2 POC Base Excess POC ABG O2 Sat Rory Test O2 Delivery Device Sodium Potassium Chloride Carbon Dioxide Anion Gap BUN Creatinine Est Cr Clr Drug Dosing Est GFR ( Amer) Est GFR (Non-Af Amer) BUN/Creatinine Ratio Glucose POC Glucose Lactate 2.1 H* Calcium Magnesium Total Bilirubin AST ALT Alkaline Phosphatase Total Creatine Kinase Troponin I Total Protein Albumin Globulin Albumin/Globulin Ratio TSH Urine Color Dark Yellow Urine Appearance Clear Urine pH 5.0 Ur Specific [place] 1.027 Urine Protein Trace H Urine Glucose (UA) 2+ H Urine Ketones Trace H Urine Blood Negative Urine Nitrite Negative Urine Bilirubin Negative Urine Urobilinogen Negative Ur Leukocyte Esterase Negative Urine WBC (Auto) 1-5 Urine RBC (Auto) 0-4 U Hyaline Cast (Auto) 10-30 H U Epithel Cells (Auto) >30 H Urine Bacteria (Auto) Negative Ur Renal Epithelial Cell 0-5 Influenza Type A (PCR) Neg for Influ A Influenza Type B (PCR) Neg for Influ B 07/20/19 07/20/19 07/20/19 00:02 00:39 07:03 WBC 7.47 RBC 4.17 L Hgb 12.6 Hct 37.8 MCV 90.6 MCH 30.2 MCHC 33.3 RDW Std Deviation 46.8 H RDW Coeff of [place] 14.2 Plt Count 132 MPV 10.5 H Immature Gran % (Auto) 0.8 Neut % (Auto) 59.1 Lymph % (Auto) 28.1 [place] % (Auto) 11.5 Eos % (Auto) 0.5 Baso % (Auto) 0.0 Immature Gran # (Auto) 0.06 H Neut # (Auto) 4.41 Lymph # (Auto) 2.10 [place] # (Auto) 0.86 H Eos # (Auto) 0.04 Baso # (Auto) 0.00 PT INR Sample Site R Brachial POC pH 7.43 POC pCO2 46 POC pO2 116 H POC HCO3 31 H POC Total CO2 32 H POC Base Excess 6.0 H POC ABG O2 Sat 99.0 H Rory Test Pass O2 Delivery Device Cannula Sodium Potassium Chloride Carbon Dioxide Anion Gap BUN Creatinine Est Cr Clr Drug Dosing Est GFR ( Amer) Est GFR (Non-Af Amer) BUN/Creatinine Ratio Glucose POC Glucose 215 H Lactate Calcium Magnesium Total Bilirubin AST ALT Alkaline Phosphatase Total Creatine Kinase Troponin I Total Protein Albumin Globulin Albumin/Globulin Ratio TSH Urine Color Urine Appearance Urine pH Ur Specific [place] Urine Protein Urine Glucose (UA) Urine Ketones Urine Blood Urine Nitrite Urine Bilirubin Urine Urobilinogen Ur Leukocyte Esterase Urine WBC (Auto) Urine RBC (Auto) U Hyaline Cast (Auto) U Epithel Cells (Auto) Urine Bacteria (Auto) Ur Renal Epithelial Cell Influenza Type A (PCR) Influenza Type B (PCR) 07/20/19 07/20/19 07/20/19 07:03 07:07 07:32 WBC RBC Hgb Hct MCV MCH MCHC RDW Std Deviation RDW Coeff of [place] Plt Count MPV Immature Gran % (Auto) Neut % (Auto) Lymph % (Auto) [place] % (Auto) Eos % (Auto) Baso % (Auto) Immature Gran # (Auto) Neut # (Auto) Lymph # (Auto) [place] # (Auto) Eos # (Auto) Baso # (Auto) PT INR Sample Site POC pH POC pCO2 POC pO2 POC HCO3 POC Total CO2 POC Base Excess POC ABG O2 Sat Rory Test O2 Delivery Device Sodium 134 L Potassium 4.1 Chloride 98 Carbon Dioxide 31 Anion Gap 6.0 BUN 26 H Creatinine 1.21 H D Est Cr Clr Drug Dosing 54.7 Est GFR ( Amer) 51.8 Est GFR (Non-Af Amer) 44.7 BUN/Creatinine Ratio 21.8 H Glucose 145 H POC Glucose 150 H Lactate 1.2 Calcium 8.9 Magnesium Total Bilirubin AST ALT Alkaline Phosphatase Total Creatine Kinase Troponin I Total Protein Albumin Globulin Albumin/Globulin Ratio TSH Urine Color Urine Appearance Urine pH Ur Specific [place] Urine Protein Urine Glucose (UA) Urine Ketones Urine Blood Urine Nitrite Urine Bilirubin Urine Urobilinogen Ur Leukocyte Esterase Urine WBC (Auto) Urine RBC (Auto) U Hyaline Cast (Auto) U Epithel Cells (Auto) Urine Bacteria (Auto) Ur Renal Epithelial Cell Influenza Type A (PCR) Influenza Type B (PCR) Diagnostic Findings Lexiscan stress test 04/09/2019 Gated SPECT imaging reveals normal myocardial thickening and wall motion. The left ventricular ejection fraction was calculated to be 68%. Lexiscan nuclear cardiac stress test negative for ischemia. Echocardiogram 03/08/2019 Compared to last available study, there has been no interval change. Normal LV chamber size with mild concentric LVH. Normal LV systolic function without regional wall motion abnormality. Calculated LV ejection Fraction = 64% (bi-plane method of discs). Grade II diastolic dysfunction. Mild aortic valve sclerosis without stenosis. (1) COPD (chronic obstructive pulmonary disease) COPD type: unspecified COPD Qualified Code(s): J44.9 - Chronic obstructive pulmonary disease, unspecified
[2019-07-20] MEDS: LEVALBUTEROL HCL 1.25 MG/3 ML NEB NEB PRN ×2 (10:48→22:58)
[2019-07-20] MEDS: PHENAZOPYRIDINE HCL 100 MG TAB PO PRN (13:46)
[2019-07-20] MEDS: OXYCODONE HCL IR 5 MG TAB (IMMEDIATE RELEASE) PO PRN (22:45)
[2019-07-21] MEDS: PROMETHAZINE HCL 12.5 MG in SODIUM CHLORIDE 0.9% 50 ML IV PRN (00:07)
[2019-07-21] MEDS: LEVOTHYROXINE SODIUM 150 MCG TABLET PO SCH (06:04)
[2019-07-21] MEDS: CEROVITE ADV FORMULA TAB PO SCH (07:46)
[2019-07-21] MEDS: BENZONATATE 100 MG CAPSULE PO SCH ×2 (07:47→15:19)
[2019-07-21] MEDS: RIVAROXABAN 20 MG TAB PO SCH (07:47)
[2019-07-21] MEDS: OXYCODONE HCL 40 MG TABCR (OXYCONTIN) PO SCH ×2 (07:49→20:59)
[2019-07-21] MEDS: INSULIN GLARGINE SOLOSTAR 100 UNITS/ML 3 ML PEN SQ SCH ×2 (07:52→21:00)
[2019-07-21] MEDS: INSULIN ASPART 100 UNITS/ML 3 ML PEN SC SCH ×4 (07:52→20:59)
[2019-07-21] MEDS ORDERED: METOPROLOL SUCC 50MG EXT REL TAB PO STA (08:51)
--- NOTE | 2019-07-21 08:56 | Cardiology Progress Note ---
Date of Service July 21, 2019 Assessment & Plan (1) Paroxysmal atrial fibrillation: Patient continues to be anticoagulated with Xarelto Heart rates trending higher with short runs of atrial tachycardia now that sotalol is been held Plan: Initiate Tikosyn 500 mcg p.o. twice daily after renal function electrolytes checked this morning. Single dose of metoprolol succinate 12.5 mill grams p.o. to be given this morning to control heart rate, while antiarrhythmic therapy begins. EKG is ordered for 2 hours after each dose of Tikosyn, will follow QTC Patient to be maintained on telemetry at all times (2) COPD (chronic obstructive pulmonary disease): Severe, continue bronchodilators oxygen and nocturnal ventilatory supplementation (3) Hypoxia: Subjective Patient seen and examined, chart, medications, telemetry reviewed. Feels somewhat better this morning less nauseated and weak. No fevers or chills. Telemetry reveals sinus and sinus tachycardia as well as short runs of atrial tachycardia. Denies chest pain or worsening shortness of breath. Physical Exam Constitutional: + ill appearing, + obese and + cushingoid Eyes: PERRL, conjunctivae normal, anicteric sclerae ENMT: external ear and nose normal, oropharynx normal Neck: trachea midline, no thyromegaly Respiratory: Auscultation: + diminished lung sounds and + wheezes Cardiovascular: Rate/Rhythm: regular rate and regular rhythm Heart Sounds: normal S1 and normal S2; no gallop and no murmur Palpation: normal PMI Vessels: normal carotid upstroke and radial pulses present; no JVD and no carotid bruit Extremities: + edema (Trace) Gastrointestinal (Abdomen): normal bowel sounds, soft, nontender, no hepatosplenomegaly Musculoskeletal: no cyanosis or clubbing, extremities motor strength 5/5 Skin: no rashes, warm and dry Neurologic: PERRL, EOMI, accommodation nl, no face palsy, no dysarthria Psychiatric: A+Ox3, euthymic affect Results & Data Vital Signs (Past 12 Hours) Vital Signs Temp Pulse Pulse Pulse Resp BP Pulse Ox 07/21/19 07:48 37.2 C 107 H 18 99/81 L 96 07/21/19 07:42 98 H 07/21/19 03:45 36.7 C 71 22 125/61 95 07/21/19 00:29 36.9 C 72 20 115/62 96 07/20/19 23:40 07/20/19 22:58 78 17 96 Pulse Ox 07/21/19 07:48 07/21/19 07:42 07/21/19 03:45 07/21/19 00:29 07/20/19 23:40 95 07/20/19 22:58 Laboratory Results Laboratory Results - last 24 hr 07/20/19 07/20/19 07/20/19 11:34 16:31 17:51 POC Glucose 185 H 154 H 247 H 07/20/19 07/21/19 20:45 07:27 POC Glucose 200 H 113 H (1) COPD (chronic obstructive pulmonary disease) COPD type: unspecified COPD Qualified Code(s): J44.9 - Chronic obstructive pulmonary disease, unspecified
[2019-07-21] MEDS ORDERED: METOPROLOL SUCC 25MG EXT REL TAB PO STA (09:01)
[2019-07-21] MEDS ORDERED: Nursing to Pharmacy Communication ONE (09:07)
[2019-07-21] MEDS: DOFETILIDE 125 MCG CAPSULE PO SCH ×2 (09:14→21:00)
[2019-07-21] MEDS: ALBUTEROL HFA 8 GM INHALER INH PRN ×2 (09:47→14:08)
[2019-07-21 10:11] LABS: BUN Creatinine Ratio 12.2 (10-20); Calcium 8.4 mg/dl (8.5-10.1); Creatinine Clr Calc Pharmacy 55.8 ml/min; Est GFR (African American) 53.4; Potassium 4.4 mmol/L (3.5-5.1)
--- NOTE | 2019-07-21 12:11 | Hospitalist Progress Note ---
Date of Service July 21, 2019 Assessment & Plan (1) Weakness: LIKELY MULTIFACTORIAL Improving SECONDARY TO DEHYDRATION Gentle IV fluids given, holding Lasix for now FROM SOTALOL? Sotalol discontinued, transitioned to Tikosyn today Monitor closely FROM OXYCODONE? Lower dose from 60 to 40 mg twice daily and then taper ORTHOSTATIC HYPOTENSION Reported in H&P Gentle IV fluids given Monitor blood pressure TSH within normal limits ACUTE RENAL FAILURE Baseline creatinine 1.08, presented with 1.5, IV fluids given Creatinine now 1.2, monitor COPD, chronic hypoxic respiratory failure At baseline Obstructive sleep apnea Continue BiPAP Chronic CHF diastolic type Patient on the dry side, Lasix being held at this time Paroxysmal atrial fibrillation on Xarelto Sotalol changed to Tikosyn, continue Xarelto Diabetes type 2 Continue insulin sliding scale Hypertension Monitor Chronic pain syndrome Oxycodone reduced in light of weakness, orthostatic hypotension Monitor Morbid obesity Counseling DVT prophylaxis Already on Xarelto Disposition Lives with family at home Will need PT and OT evaluation Subjective Follow-up for weakness Seen resting in bed, comfortable, baseline 3 L of nasal cannula, not in distress States she feels improved today compared to yesterday Less weak, ambulated to the commode with no dizziness, chest pain, shortness of breath Denies other symptoms Review of Systems Review of Systems: All systems reviewed & are unremarkable except as noted in HPI & below Physical Exam Physical Exam: General- oriented x 3, not in distress, speaks in sentences with no effort or accessory muscle use Eyes- anicteric Neck- no JVD Lungs-diminished but clear breath sounds bilaterally, no crackles, no wheezing Heart- normal rate, regular rhythm; no murmurs Abdomen- normal bowel sounds, nondistended, soft, nontender Extremities-trace pretibial edema, no calf tenderness Neuro- alert, oriented x 3; no gross focal neurologic deficits Skin- warm & dry Results & Data Vital Signs (Past 12 Hours) Vital Signs Temp Pulse Pulse Pulse Resp BP Pulse Ox 07/21/19 07:48 37.2 C 107 H 18 99/81 L 96 07/21/19 07:42 98 H 07/21/19 03:45 36.7 C 71 22 125/61 95 07/21/19 00:29 36.9 C 72 20 115/62 96
[2019-07-21] MEDS: PHENAZOPYRIDINE HCL 100 MG TAB PO PRN ×2 (16:07→21:01)
[2019-07-21] MEDS ORDERED: BENZONATATE 100 MG CAPSULE PO PRN (17:05)
[2019-07-21] MEDS ORDERED: FUROSEMIDE 20 MG TAB PO ONE (18:12)
[2019-07-22] MEDS: LEVOTHYROXINE SODIUM 150 MCG TABLET PO SCH (05:44)
[2019-07-22] MEDS: INSULIN ASPART 100 UNITS/ML 3 ML PEN SC SCH ×4 (08:20→20:38)
[2019-07-22] MEDS: INSULIN GLARGINE SOLOSTAR 100 UNITS/ML 3 ML PEN SQ SCH ×2 (08:20→20:37)
[2019-07-22] MEDS: OXYCODONE HCL 40 MG TABCR (OXYCONTIN) PO SCH ×2 (09:08→20:42)
[2019-07-22] MEDS: CEROVITE ADV FORMULA TAB PO SCH (09:09)
[2019-07-22] MEDS: RIVAROXABAN 20 MG TAB PO SCH (09:09)
--- NOTE | 2019-07-22 09:58 | Cardiology Progress Note ---
Date of Service July 22, 2019 Assessment & Plan (1) Paroxysmal atrial fibrillation: Patient continues to be anticoagulated with Xarelto Tikosyn initiated however QT corrected has been prolonged in the setting of sinus tachycardia Plan: Hold Tikosyn today add metoprolol succinate 12.5 mill grams twice daily. Consider restart Tikosyn later today or in a.m. at lower dosing Assess renal function in a.m. (2) COPD (chronic obstructive pulmonary disease): Severe, continue bronchodilators oxygen and nocturnal ventilatory supplementation (3) Hypoxia: Subjective Patient seen and examined, chart, medications, telemetry reviewed. Patient feels stronger since hospitalization. Predominant change being discontinuation of sotalol Tikosyn has resulted in some QT prolongation. No dizziness/syncope or near syncope no chest pains Physical Exam Constitutional: + ill appearing, + obese and + cushingoid Eyes: PERRL, conjunctivae normal, anicteric sclerae ENMT: external ear and nose normal, oropharynx normal Neck: trachea midline, no thyromegaly Respiratory: Auscultation: + diminished lung sounds and + wheezes Cardiovascular: Rate/Rhythm: regular rate and regular rhythm Heart Sounds: normal S1 and normal S2; no gallop and no murmur Palpation: normal PMI Vessels: normal carotid upstroke and radial pulses present; no JVD and no carotid bruit Extremities: + edema (Trace) Gastrointestinal (Abdomen): normal bowel sounds, soft, nontender, no hepatosplenomegaly Musculoskeletal: no cyanosis or clubbing, extremities motor strength 5/5 Skin: no rashes, warm and dry Neurologic: PERRL, EOMI, accommodation nl, no face palsy, no dysarthria Psychiatric: A+Ox3, euthymic affect Results & Data Vital Signs (Past 12 Hours) Vital Signs Temp Pulse Pulse Pulse Resp BP Pulse Ox 07/22/19 08:00 89 07/22/19 07:00 36.8 C 88 20 107/42 L 99 07/22/19 03:09 36.8 C 89 20 154/68 H 97 07/21/19 23:44 36.8 C 88 24 149/78 H 97 (1) COPD (chronic obstructive pulmonary disease) COPD type: unspecified COPD Qualified Code(s): J44.9 - Chronic obstructive pulmonary disease, unspecified
[2019-07-22] MEDS ORDERED: METOPROLOL SUCC 25MG EXT REL TAB PO SCH (10:00)
[2019-07-22 11:12] LABS: BUN Creatinine Ratio 7.7 (10-20); Calcium 7.8 mg/dl (8.5-10.1); Creatinine Clr Calc Pharmacy 55.4 ml/min; Est GFR (African American) 51.8; Est GFR (Non-African American) 44.7; Potassium 3.5 mmol/L (3.5-5.1)
[2019-07-22] MEDS: METOPROLOL SUCC 25MG EXT REL TAB PO SCH ×2 (15:19→20:39)
[2019-07-22] MEDS: ACETAMINOPHEN 325 MG TAB PO PRN (15:23)
[2019-07-22] MEDS: MAGNESIUM HYDROXIDE SUSP 30 ML UDC PO PRN (16:48)
--- NOTE | 2019-07-22 18:14 | Hospitalist Progress Note ---
Date of Service July 22, 2019 Assessment & Plan (1) Weakness: LIKELY MULTIFACTORIAL Improving SECONDARY TO DEHYDRATION Gentle IV fluids given, Lasix as needed for now FROM SOTALOL? Sotalol discontinued, transitioned to Tikosyn and metoprolol today QT prolonged, Tikosyn being titrated Monitor closely FROM OXYCODONE? Lower dose from 60 to 40 mg twice daily and then taper ORTHOSTATIC HYPOTENSION Reported in H&P Gentle IV fluids given Monitor blood pressure TSH within normal limits ACUTE RENAL FAILURE Baseline creatinine 1.08, presented with 1.5, IV fluids given Creatinine now 1.2, monitor CONSTIPATION Associated with rectal prolapse Noted to have some bleeding on her pad today Patient currently on Xarelto will order GI evaluation Senokot-S daily, PRN milk of magnesia COPD, chronic hypoxic respiratory failure At baseline Obstructive sleep apnea Continue BiPAP Chronic CHF diastolic type Patient on the dry side, Lasix being held at this time Paroxysmal atrial fibrillation on Xarelto Sotalol changed to Tikosyn, continue Xarelto Diabetes type 2 Continue insulin sliding scale Hypertension Monitor Chronic pain syndrome Oxycodone reduced in light of weakness, orthostatic hypotension Monitor Morbid obesity Counseling DVT prophylaxis Already on Xarelto Disposition Lives with family at home PT and OT evaluation Subjective Follow-up for weakness Seen resting in bed, comfortable, not in distress States this afternoon she felt flushed, associated with palpitations Sinus tachycardia monitor, resolved Denies changes with breathing, denies dyspnea or cough No dizziness with standing today Review of Systems Review of Systems: All systems reviewed & are unremarkable except as noted in HPI & below Physical Exam Physical Exam: General- oriented x 3, not in distress, speaks in sentences with no effort or accessory muscle use Eyes- anicteric Neck- no JVD Lungs- clear breath sounds, no crackles, no wheezing bilaterally Heart- normal rate, regular rhythm; no murmurs Abdomen- normal bowel sounds, nondistended, soft, nontender Extremities- no pretibial edema, no calf tenderness Neuro- alert, oriented x 3; no gross focal neurologic deficits Skin- warm & dry Results & Data Vital Signs (Past 12 Hours) Vital Signs Temp Pulse Pulse Pulse Resp BP Pulse Ox 07/22/19 15:06 36.9 C 100 H 16 127/97 97 07/22/19 11:27 36.8 C 86 18 101/59 L 98 07/22/19 08:00 89 07/22/19 07:00 36.8 C 88 20 107/42 L 99 Laboratory Results Laboratory Results - last 24 hr 07/21/19 07/22/19 07/22/19 20:30 07:17 10:41 Sodium 133 L Potassium 3.5 D Chloride 96 L Carbon Dioxide 30 Anion Gap 7.0 BUN 9 D Creatinine 1.21 H Est Cr Clr Drug Dosing 55.4 Est GFR ( Amer) 51.8 Est GFR (Non-Af Amer) 44.7 BUN/Creatinine Ratio 7.7 L Glucose 207 H POC Glucose 159 H 123 H Calcium 7.8 L 07/22/19 07/22/19 11:25 15:02 Sodium Potassium Chloride Carbon Dioxide Anion Gap BUN Creatinine Est Cr Clr Drug Dosing Est GFR ( Amer) Est GFR (Non-Af Amer) BUN/Creatinine Ratio Glucose POC Glucose 187 H 227 H Calcium
[2019-07-22] MEDS: OXYCODONE HCL IR 5 MG TAB (IMMEDIATE RELEASE) PO PRN (18:18)
[2019-07-22] MEDS: PHENAZOPYRIDINE HCL 100 MG TAB PO PRN (18:40)
[2019-07-23] MEDS: ACETAMINOPHEN 325 MG TAB PO PRN (01:08)
[2019-07-23] MEDS: LEVOTHYROXINE SODIUM 150 MCG TABLET PO SCH (05:43)
[2019-07-23 07:23] LABS: BUN Creatinine Ratio 7.5 (10-20); Calcium 7.9 mg/dl (8.5-10.1); Creatinine Clr Calc Pharmacy 64.5 ml/min; Est GFR (African American) 62.2; Est GFR (Non-African American) 53.6; Potassium 3.5 mmol/L (3.5-5.1)
--- NOTE | 2019-07-23 08:16 | Gastrointestinal Consultation ---
Date of Consultation July 23, 2019 Assessment & Plan (1) Bleeding hemorrhoids: Ms. Lissette Fierro is a 74 yr old female with bleeding internal and external hemorrhoids and rectal prolapse who is managing her symptoms by using Miralax and dulcolax regularly to avoid constipation. She does not have significant anemia from the hemorrhoidal bleeding. I reviewed her OP records and see that she is also overdue for colonoscopy for hx of adenomatous polyps. Plan: 1. I will place OP colorectal surgery referral for hemorrhoids and anorectal prolapse. Will also order OP surveillance colonoscopy for hx of polyps. 2. Continue daily Miralax/Dulcolax to affect one soft stool/day. 3. One dose of Relistor here today as hospitalization seems to have worsened constipation. 4. Regarding LLQ tenderness, this is chronic, functional pain and should improve back to baseline when she returns to regular daily stooling pattern. 5. Will check KUB to r/o impaction and excessively high fecal load. Attg add: I interviewed and examined pt, reviewed chart and labs. Pt with rectal bleeding, rectal prolapse. Hgb stable. Likely perianal bleeding - follow hgb, ok to resume anticoag, rx constipation, outpt cscopy. Present on Admission?: Yes History of Present Illness Reason for Consultation: Rectal Prolapse Requesting Physician: Dr. Rushing Attending Physician: Maeve Robin MD History of Present Illness Ms. Lissette Fierro is a 74 yr old female pt of Dr. Swann with a hx of chronic respiratory failure secondary to COPD on home O2, chronic diastolic heart failure, EF 57%, ZEYAD (CPAP intolerance), HTN, PAF on Xarelto, DM2,chronic pain on narcotics, recurrent cystitis, cystocele, pancreatitis, IBS-C. The pt presented for SOB and was admitted on 07/19 for COPD, ARF, CHF. GI is consulted for rectal prolapse. The pt saw OP GI several yrs ago for this same issue but at that time was not interested in referral to colorectal surgery. Since then, however, symptoms are worse (worse prolapse, more bleeding, more anal discomfort/itching/pressure) and she is interested in pursuing treatment. She has been taking laxatives regularly and usually passes a soft BM every day. She has chronic LLQ cramping discomfort, worse prior to defecation and tender to touch. In the past two days, during this hospitalization, she hasn't passed a BM and has had increased LLQ cramping discomfort. On defecation, she has had some bright red blood in the toilet bowl. I was able to examine her as she stool from toileting and saw blood dripping from large hemorrhoids as well as a moderate rectal prolapse. Allergies Allergy/AdvReac Type Severity Reaction Status Date / Time arformoterol Allergy Severe TACHYCARDIA Unverified 07/19/19 19:20 aspirin Allergy Severe HIVES, SOB Verified 07/19/19 19:20 ciprofloxacin Allergy Severe Unknown Verified 07/19/19 19:20 clarithromycin [From Biaxin] Allergy Severe Unknown Verified 07/19/19 19:20 egg Allergy Severe Unknown Verified 07/19/19 19:20 Iodinated Contrast Media Allergy Severe "CAUSED Verified 07/19/19 19:20 ASTHMA ATTACK" metaproterenol [From Alupent] Allergy Severe Unknown Verified 07/19/19 19:20 metformin [From Riomet] Allergy Severe Unknown Verified 07/19/19 19:20 milk Allergy Severe Unknown Verified 07/19/19 19:20 NSAIDS (Non-Steroidal Allergy Severe Hives Verified 07/19/19 19:20 Anti-Inflamma Penicillins Allergy Severe SOB, HIVES Verified 07/19/19 19:20 pioglitazone [From Actos] Allergy Severe Unknown Verified 07/19/19 19:20 Sulfa (Sulfonamide Allergy Severe Anaphylaxis Verified 07/19/19 19:20 Antibiotics) tiotropium Allergy Severe Unknown Verified 07/19/19 19:20 [From Spiriva with HandiHaler] wheat Allergy Severe Unknown Verified 07/19/19 19:20 aspartame Allergy Intermediate HIVES, Verified 07/19/19 19:20 ITCHY chlorhexidine Allergy Intermediate BLISTERY Verified 07/19/19 19:20 RASH ipratropium Allergy Mild SHORTNESS Verified 07/19/19 19:20 OF BREATH povidone Allergy Mild BLISTER Verified 07/19/19 19:20 WITH TAPE fish derived Allergy Unknown Unknown Verified 07/19/19 19:20 meperidine AdvReac Intermediate Gastrointestinal Verified 07/19/19 19:20 Upset morphine AdvReac Intermediate Gastrointestinal Verified 07/19/19 19:20 Upset adhesive AdvReac Mild BLISTERS Verified 07/19/19 19:20 WITH TAPE Home Medications Home Medications Medication Instructions Recorded Confirmed Type Premarin 1 applic TOPICAL MOWEFR 07/24/18 07/19/19 History albuterol sulfate 2.5 mg INHALATION Q4 PRN 07/24/18 07/19/19 History cyclobenzaprine 5 - 10 mg PO BID PRN 07/24/18 07/19/19 History furosemide [Lasix] 20 mg PO DAILY PRN 07/24/18 07/19/19 History meclizine 25 mg PO TID PRN 07/24/18 07/19/19 History oxycodone 10 mg PO Q4 PRN 07/24/18 07/19/19 History oxycodone [OxyContin] 60 mg PO Q12H 07/24/18 07/19/19 History potassium chloride 10 meq PO DAILY PRN 07/24/18 07/19/19 History spironolactone 12.5 - 25 mg PO DAILY PRN 07/24/18 07/19/19 History benzonatate 100 mg capsule 100 mg PO TID #1 cap 06/08/19 07/19/19 History magnesium oxide 400 mg (241.3 mg 400 mg PO BID tab 06/08/19 07/19/19 History magnesium) tablet multivitamin with iron tablet 1 tab PO DAILY 06/08/19 07/19/19 History albuterol sulfate HFA 90 2 puff INHALATION Q6H PRN #3 06/17/19 07/19/19 Rx mcg/actuation aerosol inhaler inhaler levothyroxine 150 mcg capsule 150 mcg PO DAILY 06/17/19 07/19/19 History sotalol 80 mg tablet 80 mg PO BID 07/08/19 07/19/19 History hydrocortisone acetate 1 applic TOPICAL BID PRN 07/19/19 07/19/19 History metformin [Glucophage XR] 500 mg PO DAILY 07/19/19 07/19/19 History nystatin 5 ml PO QID 07/19/19 07/19/19 History rivaroxaban [Xarelto] 20 mg PO DAILY 07/19/19 07/19/19 History Patient History Medical History Atrial fibrillation with rapid ventricular response (Acute) COPD (chronic obstructive pulmonary disease) (Chronic) Asthma (Chronic) CKD (chronic kidney disease), stage III (Chronic) Chronic respiratory failure with hypoxia, on home O2 therapy (Chronic) 3 l via NC at baseline Cor pulmonale (Chronic) Diabetes mellitus type 2, controlled (Chronic) Diverticulosis of colon (Chronic) Dyslipidemia (Chronic) Hypothyroidism (Chronic) Irritable bowel syndrome (Chronic) Osteoarthritis (Chronic) Surgical History Status post appendectomy (Chronic) Status post cataract extraction (Chronic) Status post cholecystectomy (Chronic) Status post hysterectomy (Chronic) H/O knee surgery Family History Father Asthma Lung cancer Mother Diabetes Heart disease Brother Colon cancer Daughter Diabetes Brother Stroke Social History Preferred Language: Pashto Communication Ability: Effective Arabic Translator Required: No Beliefs That Will Affect Care: None marital status: Current Living Situation: Family Current Living Situation Comment: Lives with son Other Information That Helps Us Care for You: No Feels Safe at Home: Yes Safety Concerns: Feels Safe At This Time Smoking Status: Never smoker Do You Dip or Chew Tobacco: No ; Second Hand Exposure: No ; Tobacco Cessation Education Requested by Patient: No Hx Alcohol Use: No Hx Substance Use: No Review of Systems Review of Systems: ROS: Gen: Denies weakness, fevers, weight loss Eyes: No eye redness, or pain, no recent vision changes Resp: + chronic SOB, improved since hospitalization; no cough Cardio: No palpitations/irregular beats, no chest pain GI: + LLQ cramping and tenderness, no nausea/vomiting : Denies pain on urination Skin: No jaundice, itching or new rashes Physical Exam Constitutional: WD/WN, vitals as above + obese Eyes: PERRL, conjunctivae normal, anicteric sclerae ENMT: external ear and nose normal, oropharynx normal Neck: trachea midline, no thyromegaly Respiratory: normal respiratory effort, lungs clear to auscultation (though diminished at the bases) Pt wearing O2 by NC at 2L/min. Cardiovascular: Rate/Rhythm: regular rate and regular rhythm Extremities: + edema (mild bilat lower leg) Gastrointestinal (Abdomen): Inspection/Auscultation: abdomen normal to inspection and normal bowel sounds; abdomen not distended Percussion/Palpati on: + abdomen tender (mildly tender in the LLQ) and abdomen soft; no guarding Skin: no rashes, warm and dry normal turgor Neurologic: PERRL, EOMI, accommodation nl, no face palsy, no dysarthria Psychiatric: A+Ox3, euthymic affect Lymphatic: no cervical or axillary lymphadenopathy Results & Data Vital Signs (Past 12 Hours) Vital Signs Temp Pulse Pulse Resp BP Pulse Ox 07/23/19 08:02 36.9 C 18 103/60 96 07/23/19 04:15 90 07/23/19 04:08 36.4 C L 120 H 20 94/66 L 98 07/23/19 00:47 113 H 07/23/19 00:37 36.9 C 97 Laboratory Results Na 137, K 3.5, BUN 8, Cr 1.04, Glucose 112 Diagnostic Findings CXR 07/19/19: Chronic parenchymal changes as above with no acute cardiopulmonary abnormality.
[2019-07-23] MEDS: INSULIN ASPART 100 UNITS/ML 3 ML PEN SC SCH ×4 (08:19→20:39)
[2019-07-23] MEDS: INSULIN GLARGINE SOLOSTAR 100 UNITS/ML 3 ML PEN SQ SCH ×2 (08:19→20:37)
[2019-07-23] MEDS: MAGNESIUM HYDROXIDE SUSP 30 ML UDC PO PRN (08:20)
[2019-07-23] MEDS: RIVAROXABAN 20 MG TAB PO SCH (08:20)
[2019-07-23] MEDS: CEROVITE ADV FORMULA TAB PO SCH (08:20)
[2019-07-23] MEDS: DOCUSATE SODIUM/SENNA 50/8.6MG TAB PO SCH (08:20)
[2019-07-23] MEDS: OXYCODONE HCL 40 MG TABCR (OXYCONTIN) PO SCH ×2 (08:23→20:31)
[2019-07-23] MEDS: METOPROLOL SUCC 25MG EXT REL TAB PO SCH ×4 (09:08→20:33)
[2019-07-23] MEDS ORDERED: DOFETILIDE 125 MCG CAPSULE PO SCH (10:30)
[2019-07-23] MEDS ORDERED: METHYLNALTREXONE BROMIDE 12 MG/0.6 ML VIAL SQ ONE (10:45)
[2019-07-23] MEDS ORDERED: POTASSIUM CHLORIDE 20 MEQ TABCR PO STA (11:18)
--- NOTE | 2019-07-23 11:20 | Cardiology Progress Note ---
Date of Service July 23, 2019 Assessment & Plan (1) Paroxysmal atrial fibrillation: Patient continues to be anticoagulated with Xarelto Tikosyn initiated however QT corrected has been prolonged in the setting of sinus tachycardia Plan: Hold Tikosyn today add metoprolol succinate 12.5 mill grams twice daily. Consider restart Tikosyn later today or in a.m. at lower dosing Assess renal function in a.m. (2) COPD (chronic obstructive pulmonary disease): Severe, continue bronchodilators oxygen and nocturnal ventilatory supplementation (3) Hypoxia: Subjective Patient seen and examined, chart, medications, telemetry reviewed. Patient feels stronger since hospitalization. Predominant change being discontinuation of sotalol QT interval's have returned to baseline. Telemetry reveals short runs of atrial tachycardia with patient symptomatic feeling sensed palpitations with events. Physical Exam Constitutional: + ill appearing, + obese and + cushingoid Eyes: PERRL, conjunctivae normal, anicteric sclerae ENMT: external ear and nose normal, oropharynx normal Neck: trachea midline, no thyromegaly Respiratory: Auscultation: + diminished lung sounds and + wheezes Cardiovascular: Rate/Rhythm: regular rate and regular rhythm Heart Sounds: normal S1 and normal S2; no gallop and no murmur Palpation: normal PMI Vessels: normal carotid upstroke and radial pulses present; no JVD and no carotid bruit Extremities: + edema (Trace) Gastrointestinal (Abdomen): normal bowel sounds, soft, nontender, no hepatosplenomegaly Musculoskeletal: no cyanosis or clubbing, extremities motor strength 5/5 Skin: no rashes, warm and dry Neurologic: PERRL, EOMI, accommodation nl, no face palsy, no dysarthria Psychiatric: A+Ox3, euthymic affect Results & Data Vital Signs (Past 12 Hours) Vital Signs Temp Pulse Pulse Resp BP Pulse Ox 07/23/19 10:56 87 07/23/19 08:02 36.9 C 18 103/60 96 07/23/19 04:15 90 07/23/19 04:08 36.4 C L 120 H 20 94/66 L 98 07/23/19 00:47 113 H 07/23/19 00:37 36.9 C 97 Laboratory Results Laboratory Results - last 24 hr 07/22/19 07/22/19 07/22/19 11:25 15:02 20:34 Sodium Potassium Chloride Carbon Dioxide Anion Gap BUN Creatinine Est Cr Clr Drug Dosing Est GFR ( Amer) Est GFR (Non-Af Amer) BUN/Creatinine Ratio Glucose POC Glucose 187 H 227 H 143 H Calcium 07/23/19 07/23/19 06:40 08:01 Sodium 137 Potassium 3.5 Chloride 98 Carbon Dioxide 33 H Anion Gap 6.0 BUN 8 Creatinine 1.04 Est Cr Clr Drug Dosing 64.5 Est GFR ( Amer) 62.2 Est GFR (Non-Af Amer) 53.6 BUN/Creatinine Ratio 7.5 L Glucose 112 H POC Glucose 116 H Calcium 7.9 L (1) COPD (chronic obstructive pulmonary disease) COPD type: unspecified COPD Qualified Code(s): J44.9 - Chronic obstructive pulmonary disease, unspecified
--- NOTE | 2019-07-23 11:24 | Cardiology Progress Note ---
Date of Service July 23, 2019 Assessment & Plan (1) Paroxysmal atrial fibrillation: Patient continues to be anticoagulated with Xarelto Tikosyn initially at higher dosing resolving QT prolongation now returning to baseline after holding dose Telemetry demonstrates increased atrial tachycardia Increase Toprol-XL to 12.5 mill grams 3 times per day with an additional dose now. Supplement potassium with 40 mEQ today given potassium level of 3.5 Restart Tikosyn at 250 mcg twice daily Patient definitely feels improved off sotalol (2) COPD (chronic obstructive pulmonary disease): Severe, continue bronchodilators oxygen and nocturnal ventilatory supplementation (3) Hypoxia: Subjective Patient seen and examined, chart, medications, telemetry reviewed. Patient feels stronger since hospitalization. Predominant change being discontinuation of sotalol QT interval's have returned to baseline. Telemetry reveals short runs of atrial tachycardia with patient symptomatic feeling sensed palpitations with events. Physical Exam Constitutional: + ill appearing, + obese and + cushingoid Eyes: PERRL, conjunctivae normal, anicteric sclerae ENMT: external ear and nose normal, oropharynx normal Neck: trachea midline, no thyromegaly Respiratory: Auscultation: + diminished lung sounds and + wheezes Cardiovascular: Rate/Rhythm: regular rate and regular rhythm Heart Sounds: normal S1 and normal S2; no gallop and no murmur Palpation: normal PMI Vessels: normal carotid upstroke and radial pulses present; no JVD and no carotid bruit Extremities: + edema (Trace) Gastrointestinal (Abdomen): normal bowel sounds, soft, nontender, no hepatosplenomegaly Musculoskeletal: no cyanosis or clubbing, extremities motor strength 5/5 Skin: no rashes, warm and dry Neurologic: PERRL, EOMI, accommodation nl, no face palsy, no dysarthria Psychiatric: A+Ox3, euthymic affect Results & Data Vital Signs (Past 12 Hours) Vital Signs Temp Pulse Pulse Resp BP Pulse Ox 07/23/19 10:56 87 07/23/19 08:02 36.9 C 18 103/60 96 07/23/19 04:15 90 07/23/19 04:08 36.4 C L 120 H 20 94/66 L 98 07/23/19 00:47 113 H 07/23/19 00:37 36.9 C 97 (1) COPD (chronic obstructive pulmonary disease) COPD type: unspecified COPD Qualified Code(s): J44.9 - Chronic obstructive pulmonary disease, unspecified
--- NOTE | 2019-07-23 16:06 | Hospitalist Progress Note ---
Date of Service July 23, 2019 Assessment & Plan (1) Weakness: PAROXYSMAL AFIB appreciate input from cardiology medication changed to Tikosyn 250 mcg BID ( sotatol d/yue ) Toprol XL dose adjusted Patient continues to be anticoagulated with Xarelto ACUTE RENAL FAILURE resolved after IV hydration cont to monitor BMP Baseline creatinine 1.08, CONSTIPATION had bowel movement today ordered Relistor SC by GI team Associated with rectal prolapse appreciate input from GI Senokot-S daily, PRN milk of magnesia COPD, chronic hypoxic respiratory failure At baseline Obstructive sleep apnea Continue BiPAP Chronic CHF diastolic type resume Lasix follow vol status Diabetes type 2 Continue insulin sliding scale Hypertension Monitor Morbid obesity Counseling DVT prophylaxis Already on Xarelto Disposition Lives with family at home PT and OT evaluation Subjective feels much better now does not have any nasal or throat congestion no feeling of palpitation , no SOB or orthopnea feels her leg swellings has improved Physical Exam Constitutional: + obese; no acute distress Eyes: PERRL, conjunctivae normal, anicteric sclerae ENMT: external ear and nose normal, oropharynx normal Neck: normal visual inspection Respiratory: normal respiratory effort; no respiratory distress, no labored breathing and no cough Cardiovascular: Rate/Rhythm: regular rate; + abnormal rhythm Extremities: + edema (+ 1 bilat ) Gastrointestinal (Abdomen): normal bowel sounds, soft, nontender, no hepatospl enomegaly Musculoskeletal: no cyanosis or clubbing, extremities motor strength 5/5 Skin: multiple skin tear Neurologic: PERRL, EOMI, accommodation nl, no face palsy, no dysarthria Psychiatric: A+Ox3, euthymic affect Results & Data Vital Signs (Past 12 Hours) Vital Signs Temp Pulse Pulse Resp BP Pulse Ox 07/23/19 15:00 74 07/23/19 12:00 36.8 C 99 07/23/19 10:56 87 07/23/19 08:02 36.9 C 18 103/60 96 07/23/19 04:15 90 07/23/19 04:08 36.4 C L 120 H 20 94/66 L 98
[2019-07-23] MEDS ORDERED: FUROSEMIDE 40 MG TAB PO PRN (16:38)
[2019-07-23] MEDS ORDERED: POTASSIUM CHLORIDE 10 MEQ TABCR PO PRN (16:38)
[2019-07-23] MEDS ORDERED: FLEXERIL HOME PACK 10 MG VIAL PO PRN (16:38)
[2019-07-23] MEDS ORDERED: CYCLOBENZAPRINE HCL 5 MG TAB PO PRN (17:18)
[2019-07-23] MEDS ORDERED: HYDROCORTISONE 1% CRM 30 GM TUBE EXT PRN (17:24)
[2019-07-23] MEDS: NYSTATIN SUSP 500,000 U/5 ML UDC PO SCH ×2 (17:34→20:33)
[2019-07-23] MEDS: FUROSEMIDE 20 MG TAB PO SCH (18:02)
[2019-07-23] MEDS: MAGNESIUM OXIDE 400 MG TAB PO SCH (20:32)
[2019-07-23] MEDS: DOFETILIDE 125 MCG CAPSULE PO SCH (20:34)
[2019-07-24] MEDS: ACETAMINOPHEN 325 MG TAB PO PRN (00:45)
[2019-07-24] MEDS: LEVOTHYROXINE SODIUM 150 MCG TABLET PO SCH (05:54)
[2019-07-24 06:59] LABS: BUN Creatinine Ratio 7.6 (10-20); Calcium 8.3 mg/dl (8.5-10.1); Creatinine Clr Calc Pharmacy 68.1 ml/min; Est GFR (Non-African American) 56.9; Potassium 4.3 mmol/L (3.5-5.1)
[2019-07-24] MEDS: INSULIN GLARGINE SOLOSTAR 100 UNITS/ML 3 ML PEN SQ SCH ×2 (08:17→22:11)
[2019-07-24] MEDS: INSULIN ASPART 100 UNITS/ML 3 ML PEN SC SCH ×4 (08:17→22:12)
[2019-07-24] MEDS: RIVAROXABAN 20 MG TAB PO SCH (08:24)
[2019-07-24] MEDS: METOPROLOL SUCC 25MG EXT REL TAB PO SCH ×3 (08:25→22:13)
[2019-07-24] MEDS: DOCUSATE SODIUM/SENNA 50/8.6MG TAB PO SCH ×2 (08:26→22:14)
[2019-07-24] MEDS: NYSTATIN SUSP 500,000 U/5 ML UDC PO SCH ×4 (08:26→22:12)
[2019-07-24] MEDS: CEROVITE ADV FORMULA TAB PO SCH (08:26)
[2019-07-24] MEDS: POTASSIUM CHLORIDE 10 MEQ TABCR PO SCH (08:27)
[2019-07-24] MEDS: FUROSEMIDE 20 MG TAB PO SCH (08:27)
[2019-07-24] MEDS: MAGNESIUM OXIDE 400 MG TAB PO SCH ×2 (08:27→22:11)
[2019-07-24] MEDS: OXYCODONE HCL 40 MG TABCR (OXYCONTIN) PO SCH ×2 (08:32→22:18)
[2019-07-24] MEDS: DOFETILIDE 125 MCG CAPSULE PO SCH ×2 (09:07→22:11)
--- NOTE | 2019-07-24 11:01 | Cardiology Progress Note ---
Date of Service July 24, 2019 Assessment & Plan (1) Paroxysmal atrial fibrillation: Patient continues to be anticoagulated with Xarelto Tikosyn restarted at 250 mcg twice per day. Serial EKGs ordered Patient previously intolerant of sotalol. Amiodarone poor choice in this patient with significant underlying reactive airway disease and lung disease. If Tikosyn unable to be tolerated will likely need to proceed to AV junction ablation with pacemaker insertion Discussed with patient (2) COPD (chronic obstructive pulmonary disease): Severe, continue bronchodilators oxygen and nocturnal ventilatory supplementation (3) Hypoxia: Subjective Patient seen and examined, chart, medications, telemetry reviewed. Continues to states she feels better off sotalol. Less tight less respiratory complaints. Telemetry demonstrates short runs of atrial tachycardia. Has tolerated first 2 doses of reduced dose Tikosyn Physical Exam Constitutional: WD/WN, vitals as above + cushingoid Eyes: PERRL, conjunctivae normal, anicteric sclerae ENMT: external ear and nose normal, oropharynx normal Neck: trachea midline, no thyromegaly Respiratory: no respiratory distress Auscultation: + diminished lung sounds; no wheezes and no bronchovesicular breath sounds Cardiovascular: Rate/Rhythm: regular rate and regular rhythm Heart Sounds: normal S1 and normal S2; no gallop and no murmur Palpation: normal PMI Vessels: normal carotid upstroke and radial pulses present; no JVD and no carotid bruit Extremities: no edema Gastrointestinal (Abdomen): normal bowel sounds, soft, nontender, no hepatosplenomegaly Musculoskeletal: no cyanosis or clubbing, extremities motor strength 5/5 Skin: no rashes, warm and dry Neurologic: PERRL, EOMI, accommodation nl, no face palsy, no dysarthria Psychiatric: A+Ox3, euthymic affect Results & Data Vital Signs (Past 12 Hours) Vital Signs Temp Pulse Pulse Pulse Resp BP Pulse Ox 07/24/19 08:00 74 07/24/19 07:39 37.0 C 79 22 129/65 100 07/24/19 04:18 36.5 C 77 16 117/65 99 07/24/19 00:12 37.1 C 98 07/24/19 00:00 70 Laboratory Results Laboratory Results - last 24 hr 07/23/19 07/23/19 07/23/19 11:40 16:29 20:18 Sodium Potassium Chloride Carbon Dioxide Anion Gap BUN Creatinine Est Cr Clr Drug Dosing Est GFR ( Amer) Est GFR (Non-Af Amer) BUN/Creatinine Ratio Glucose POC Glucose 197 H 159 H 147 H Calcium 07/24/19 07/24/19 05:51 07:36 Sodium 136 Potassium 4.3 D Chloride 99 Carbon Dioxide 35 H Anion Gap 2.0 L BUN 8 Creatinine 0.99 Est Cr Clr Drug Dosing 68.1 Est GFR ( Amer) 66.0 Est GFR (Non-Af Amer) 56.9 BUN/Creatinine Ratio 7.6 L Glucose 102 H POC Glucose 103 H Calcium 8.3 L (1) COPD (chronic obstructive pulmonary disease) COPD type: unspecified COPD Qualified Code(s): J44.9 - Chronic obstructive pulmonary disease, unspecified
--- NOTE | 2019-07-24 15:29 | Hospitalist Progress Note ---
Date of Service July 24, 2019 Assessment & Plan (1) Weakness: Lower GI bleed/acute bout blood loss anemia Had multiple episode of painless bright red blood per rectum,(history of chronic hematochezia secondary to internal hemorrhoids, rectal vault prolapse) Patient was evaluated by [facility] surgery in [place], found to be a poor surgical candidate Treatment with pessary did not work in past She did not had any episode of overt bleeding yesterday, H&H showed mild drop of hemoglobin/acute blood loss anemia from 1210 Repeat H&H in a.m. Remains high risk for rectal surgery conservative approach would be appropriate Refer Anusol suppository, Hold anticoagulation /Xarelto Avoid constipation continue bowel regimen PAROXYSMAL AFIB appreciate input from cardiology medication changed to Tikosyn 250 mcg BID ( sotatol d/yue ) Toprol XL dose adjusted anticoagulated with Xarelto kept on hold secondary to lower GI bleed/gross hematochezia ACUTE RENAL FAILURE Resolved, renal function at baseline cont to monitor BMP Baseline creatinine 1.08, CONSTIPATION ordered Relistor SC by GI team Developed bright red blood per rectum, history of internal hemorrhoids associated with rectal prolapse appreciate input from GI Senokot-S daily, PRN milk of magnesia Increase bowel regimen to prevent constipation, ordered MiraLAX twice daily COPD, chronic hypoxic respiratory failure At baseline Obstructive sleep apnea Continue BiPAP Chronic CHF diastolic type resume Lasix follow vol status Diabetes type 2 Continue insulin sliding scale Hypertension Monitor Morbid obesity Counseling DVT prophylaxis SCD and teds, avoid anticoagulation secondary to lower GI bleed Disposition Lives with family at home PT and OT evaluation Subjective Patient developed gross bright red blood per rectum, multiple episodes Having painless large GI bleed, History of rectal prolapse, with internal hemorrhoids, possible bleeding from the hemorrhoids while on anticoagulation with Xarelto Ordered anticoagulation to be kept on hold Patient will need surgical consultation for hemorrhoidectomy, as given paroxysmal A. fib needs long-term anticoagulation General surgery consulted, case discussed with on-call surgery Dr. CARTAGENA Patient needs colorectal surgery evaluation given chronic rectal prolapse Recommends transfer patient to tertiary care at [facility] in [place] under the colorectal surgical service At present patient denies of any pain or discomfort, vitals remained stable, Stat H & H shows mild drop in hemoglobin 1210 With no hemodynamic compromise Remains high risk for any surgical procedure, will continue conservative approach, no plan to transfer for tertiary care for colorectal surgery Ordered for Anusol suppository, Hold Xarelto ~until lower GI bleed is completely resolved Ordered for bowel regimen to prevent constipation Plan of care discussed with Dr. Law-recommendation as above Patient will be continued to monitor in telemetry, Physical Exam Constitutional: + obese; no acute distress Eyes: PERRL, conjunctivae normal, anicteric sclerae ENMT: external ear and nose normal, oropharynx normal Neck: normal visual inspection Respiratory: normal respiratory effort; no respiratory distress, no labored breathing and no cough Cardiovascular: Rate/Rhythm: regular rate; + abnormal rhythm Extremities: + edema (+ 1 bilat ) Gastrointestinal (Abdomen): normal bowel sounds, soft, nontender, no hepatosplenomegaly Musculoskeletal: no cyanosis or clubbing, extremities motor strength 5/5 Neurologic: PERRL, EOMI, accommodation nl, no face palsy, no dysarthria Psychiatric: A+Ox3, euthymic affect Results & Data Vital Signs (Past 12 Hours) Vital Signs Temp Pulse Pulse Pulse Resp BP Pulse Ox 07/24/19 13:10 36.8 C 84 22 136/86 98 07/24/19 08:00 74 07/24/19 07:39 37.0 C 79 22 129/65 100 07/24/19 04:18 36.5 C 77 16 117/65 99
[2019-07-24] MEDS ORDERED: HYDROCORTISONE ACETATE 25 MG SUPP PR SCH (15:38)
[2019-07-24 16:05] LABS: Hematocrit (blood only) 32.6 % (37-47); Hemoglobin 10.8 g/dL (12.0-16.0)
[2019-07-24] MEDS: HYDROCORTISONE 1% CRM 30 GM TUBE EXT SCH (22:09)
[2019-07-24] MEDS: POLYETHYLENE (MIRALAX) 17 GM PACK PO SCH (22:11)
[2019-07-24] MEDS: LEVALBUTEROL HCL 1.25 MG/3 ML NEB NEB PRN (23:38)
[2019-07-25] MEDS: LEVOTHYROXINE SODIUM 150 MCG TABLET PO SCH (05:43)
[2019-07-25 06:28] LABS: Hematocrit (blood only) 31.5 % (37-47); Hemoglobin 10.2 g/dL (12.0-16.0); Mean Corpuscular Hemoglobin 30.2 pg (25-34); Mean Corpuscular Hgb Conc 32.4 g/dL (32-36); Mean Corpuscular Volume 93.2 fL (80-100); Mean Platelet Volume 9.8 fL (7.4-10.4); Platelet Count 124 K/uL (130-400); RDW Coefficient of Variation 14.6 % (11.5-14.5); RDW Standard Deviation 49.8 fL (36.4-46.3); Red Blood Count 3.38 M/uL (4.2-5.4); White Blood Count 3.84 K/uL (4.8-10.8)
[2019-07-25] MEDS: METOPROLOL SUCC 25MG EXT REL TAB PO SCH ×3 (08:48→20:50)
[2019-07-25] MEDS: POTASSIUM CHLORIDE 10 MEQ TABCR PO SCH (08:49)
[2019-07-25] MEDS: CEROVITE ADV FORMULA TAB PO SCH (08:49)
[2019-07-25] MEDS: DOFETILIDE 125 MCG CAPSULE PO SCH ×2 (08:49→20:51)
[2019-07-25] MEDS: NYSTATIN SUSP 500,000 U/5 ML UDC PO SCH ×4 (08:50→20:58)
[2019-07-25] MEDS: FUROSEMIDE 20 MG TAB PO SCH (08:50)
[2019-07-25] MEDS: POLYETHYLENE (MIRALAX) 17 GM PACK PO SCH ×2 (08:50→20:50)
[2019-07-25] MEDS: MAGNESIUM OXIDE 400 MG TAB PO SCH ×2 (08:51→20:50)
[2019-07-25] MEDS: INSULIN GLARGINE SOLOSTAR 100 UNITS/ML 3 ML PEN SQ SCH ×2 (08:52→20:54)
[2019-07-25] MEDS: INSULIN ASPART 100 UNITS/ML 3 ML PEN SC SCH ×4 (08:53→20:55)
[2019-07-25] MEDS: HYDROCORTISONE 1% CRM 30 GM TUBE EXT SCH ×2 (08:54→21:48)
[2019-07-25] MEDS ORDERED: HYDROCORTISONE ACETATE 25 MG SUPP PR SCH (09:00)
[2019-07-25] MEDS: bisacodyL 5 MG TABEC PO SCH (09:02)
[2019-07-25] MEDS: OXYCODONE HCL 40 MG TABCR (OXYCONTIN) PO SCH ×2 (09:02→20:52)
--- NOTE | 2019-07-25 09:16 | Surgery Consultation ---
Date of Consultation July 25, 2019 Reason for Consultation: Rectal Prolapse Requesting Physician: Dr. Rushing Attending Physician: Maeve Robin MD History of Present Illness Ms. Lissette Fierro is a 74 yr old female pt of Dr. Swann with a hx of chronic respiratory failure secondary to COPD on home O2, chronic diastolic heart failure, EF 57%, ZEYAD (CPAP intolerance), HTN, PAF on Xarelto, DM2,chronic pain on narcotics, recurrent cystitis, cystocele, pancreatitis, IBS-C. The pt presented for SOB and was admitted on 07/19 for COPD, ARF, CHF. GI is consulted for rectal prolapse. The pt saw OP GI several yrs ago for this same issue but at that time was not interested in referral to colorectal surgery. Since then, however, symptoms are worse (worse prolapse, more bleeding, more anal discomfort/itching/pressure) and she is interested in pursuing treatment. She has been taking laxatives regularly and usually passes a soft BM every day. She has chronic LLQ cramping discomfort, worse prior to defecation and tender to touch. In the past two days, during this hospitalization, she hasn't passed a BM and has had increased LLQ cramping discomfort. On defecation, she has had some bright red blood in the toilet bowl. I was able to examine her as she stool from toileting and saw blood dripping from large hemorrhoids as well as a moderate rectal prolapse. I got a call for consult rectal prolapse with rectal bleeding, I reviewed pt's chart , labs with pt, now pt has no active rectal bleeding, pt denies abdominal pain, no dizziness, H/H stable, Assessment & Plan (1) Bleeding hemorrhoids: pt is a 74 year-old female who is consulted for bleeding hemorrhoid with rectal prolapse, now pt has no active rectal bleeding, no rectal pain, IMP: rectal prolapse, external hemorrhoid with II degree internal hemorrhoid, no active bleeding, Plan, agree with treatment plan, recommend: pt should follow up [facility] colorectal surgeon at [facility] out-patient base once pt is discharged, . pt agree with the plan, I answered all questions, History of Present Illness Attending Physician: Maeve Robin MD Allergies Allergy/AdvReac Type Severity Reaction Status Date / Time arformoterol Allergy Severe TACHYCARDIA Unverified 07/19/19 19:20 aspirin Allergy Severe HIVES, SOB Verified 07/19/19 19:20 ciprofloxacin Allergy Severe Unknown Verified 07/19/19 19:20 clarithromycin [From Biaxin] Allergy Severe Unknown Verified 07/19/19 19:20 egg Allergy Severe Unknown Verified 07/19/19 19:20 Iodinated Contrast Media Allergy Severe "CAUSED Verified 07/19/19 19:20 ASTHMA ATTACK" metaproterenol [From Alupent] Allergy Severe Unknown Verified 07/19/19 19:20 metformin [From Riomet] Allergy Severe Unknown Verified 07/19/19 19:20 milk Allergy Severe Unknown Verified 07/19/19 19:20 NSAIDS (Non-Steroidal Allergy Severe Hives Verified 07/19/19 19:20 Anti-Inflamma Penicillins Allergy Severe SOB, HIVES Verified 07/19/19 19:20 pioglitazone [From Actos] Allergy Severe Unknown Verified 07/19/19 19:20 Sulfa (Sulfonamide Allergy Severe Anaphylaxis Verified 07/19/19 19:20 Antibiotics) tiotropium Allergy Severe Unknown Verified 07/19/19 19:20 [From Spiriva with HandiHaler] wheat Allergy Severe Unknown Verified 07/19/19 19:20 aspartame Allergy Intermediate HIVES, Verified 07/19/19 19:20 ITCHY chlorhexidine Allergy Intermediate BLISTERY Verified 07/19/19 19:20 RASH ipratropium Allergy Mild SHORTNESS Verified 07/19/19 19:20 OF BREATH povidone Allergy Mild BLISTER Verified 07/19/19 19:20 WITH TAPE fish derived Allergy Unknown Unknown Verified 07/19/19 19:20 meperidine AdvReac Intermediate Gastrointestinal Verified 07/19/19 19:20 Upset morphine AdvReac Intermediate Gastrointestinal Verified 07/19/19 19:20 Upset adhesive AdvReac Mild BLISTERS Verified 07/19/19 19:20 WITH TAPE Home Medications Home Medications Medication Instructions Recorded Confirmed Type Premarin 1 applic TOPICAL MOWEFR 07/24/18 07/19/19 History albuterol sulfate 2.5 mg INHALATION Q4 PRN 07/24/18 07/19/19 History cyclobenzaprine 5 - 10 mg PO BID PRN 07/24/18 07/19/19 History furosemide [Lasix] 20 mg PO DAILY PRN 07/24/18 07/19/19 History meclizine 25 mg PO TID PRN 07/24/18 07/19/19 History oxycodone 10 mg PO Q4 PRN 07/24/18 07/19/19 History oxycodone [OxyContin] 60 mg PO Q12H 07/24/18 07/19/19 History potassium chloride 10 meq PO DAILY PRN 07/24/18 07/19/19 History spironolactone 12.5 - 25 mg PO DAILY PRN 07/24/18 07/19/19 History benzonatate 100 mg capsule 100 mg PO TID #1 cap 06/08/19 07/19/19 History magnesium oxide 400 mg (241.3 mg 400 mg PO BID tab 06/08/19 07/19/19 History magnesium) tablet multivitamin with iron tablet 1 tab PO DAILY 06/08/19 07/19/19 History albuterol sulfate HFA 90 2 puff INHALATION Q6H PRN #3 06/17/19 07/19/19 Rx mcg/actuation aerosol inhaler inhaler levothyroxine 150 mcg capsule 150 mcg PO DAILY 06/17/19 07/19/19 History sotalol 80 mg tablet 80 mg PO BID 07/08/19 07/19/19 History hydrocortisone acetate 1 applic TOPICAL BID PRN 07/19/19 07/19/19 History metformin [Glucophage XR] 500 mg PO DAILY 07/19/19 07/19/19 History nystatin 5 ml PO QID 07/19/19 07/19/19 History rivaroxaban [Xarelto] 20 mg PO DAILY 07/19/19 07/19/19 History Patient History Medical History Atrial fibrillation with rapid ventricular response (Acute) COPD (chronic obstructive pulmonary disease) (Chronic) Asthma (Chronic) CKD (chronic kidney disease), stage III (Chronic) Chronic respiratory failure with hypoxia, on home O2 therapy (Chronic) 3 l via NC at baseline Cor pulmonale (Chronic) Diabetes mellitus type 2, controlled (Chronic) Diverticulosis of colon (Chronic) Dyslipidemia (Chronic) Hypothyroidism (Chronic) Irritable bowel syndrome (Chronic) Osteoarthritis (Chronic) Surgical History Status post appendectomy (Chronic) Status post cataract extraction (Chronic) Status post cholecystectomy (Chronic) Status post hysterectomy (Chronic) H/O knee surgery Family History Father Asthma Lung cancer Mother Diabetes Heart disease Brother Colon cancer Daughter Diabetes Brother Stroke Social History Preferred Language: Lithuanian Communication Ability: Effective Medical Clinic Manager Required: No Beliefs That Will Affect Care: None marital status: Current Living Situation: Family Current Living Situation Comment: Lives with son Other Information That Helps Us Care for You: No Feels Safe at Home: Yes Safety Concerns: Feels Safe At This Time Smoking Status: Never smoker Do You Dip or Chew Tobacco: No ; Second Hand Exposure: No ; Tobacco Cessation Education Requested by Patient: No Hx Alcohol Use: No Hx Substance Use: No Review of Systems Constitutional: as per Subjective / HPI Ear, Nose, Mouth, Throat: as per Subjective / HPI Respiratory: as per Subjective / HPI COPD Cardiovascular: Additional Comments: A-fib Gastrointestinal: as per Subjective / HPI rectal prolapse, hemorrhoid Genitourinary: as per Subjective / HPI Integumentary: as per Subjective / HPI Neurologic: as per Subjective / HPI Psychiatric: as per Subjective / HPI Endocrine: as per Subjective / HPI Hematologic / Lymphatic: as per Subjective / HPI Physical Exam Constitutional: WD/WN, vitals as above well developed and well nourished ENMT: external ear and nose normal, oropharynx normal Neck: trachea midline, no thyromegaly Respiratory: normal respiratory effort, lungs clear to auscultation normal respiratory effort Cardiovascular: RRR, no murmur, no edema Heart Sounds: normal S1 and normal S2 Gastrointestinal (Abdomen): normal bowel sounds, soft, nontender, no hepatosplenomegaly rectal exam: mild rectal prolapse , external hemorrhoid, II degree internal hemorrhoid, no active bleeding now, Musculoskeletal: no cyanosis or clubbing, extremities motor strength 5/5 Skin: no rashes, warm and dry Neurologic: patellar DTR's 2+ bilat, sensation intact Psychiatric: Orientation: alert and oriented x 3 Results & Data Vital Signs (Past 12 Hours) Vital Signs Temp Pulse Pulse Pulse Resp BP Pulse Ox 07/25/19 07:11 36.7 C 80 22 97 07/25/19 04:00 36.7 C 81 108/61 95 07/25/19 00:17 36.9 C 07/25/19 00:00 85 07/24/19 23:38 76 16 99 Laboratory Results Abnormal lab results 07/24/19 07/24/19 07/24/19 Range/Units 11:50 11:53 12:10 WBC (4.8-10.8) K/uL RBC (4.2-5.4) M/uL Hgb (12.0-16.0) g/dL Hct (37-47) % RDW Std Deviation (36.4-46.3) fL RDW Coeff of Lawrence (11.5-14.5) % Plt Count (130-400) K/uL POC Glucose 308 H* 228 H 230 H (70-99) 07/24/19 07/24/19 07/25/19 Range/Units 15:36 16:38 05:39 WBC 3.84 L (4.8-10.8) K/uL RBC 3.38 L (4.2-5.4) M/uL Hgb 10.8 L 10.2 L (12.0-16.0) g/dL Hct 32.6 L 31.5 L (37-47) % RDW Std Deviation 49.8 H (36.4-46.3) fL RDW Coeff of Lawrence 14.6 H (11.5-14.5) % Plt Count 124 L (130-400) K/uL POC Glucose 182 H (70-99) 07/25/19 Range/Units 07:15 WBC (4.8-10.8) K/uL RBC (4.2-5.4) M/uL Hgb (12.0-16.0) g/dL Hct (37-47) % RDW Std Deviation (36.4-46.3) fL RDW Coeff of Lawrence (11.5-14.5) % Plt Count (130-400) K/uL POC Glucose 101 H (70-99)
[2019-07-25] MEDS: ACETAMINOPHEN 325 MG TAB PO PRN (10:14)
--- NOTE | 2019-07-25 10:55 | Cardiology Progress Note ---
Date of Service July 25, 2019 Assessment & Plan (1) Paroxysmal atrial fibrillation: Tolerating Tikosyn and metoprolol succinate so far. Notes symptomatic improvement since discontinuing sotalol. Will require at least an additional 24 hours telemetry and serial EKGs Transient rectal bleeding last night currently better. Will hold Xarelto today resume tomorrow Gradually increase activity (2) COPD (chronic obstructive pulmonary disease): Severe, continue bronchodilators oxygen and nocturnal ventilatory supplementation (3) Hypoxia: Subjective Patient seen and examined, chart, medications, telemetry reviewed. Patient has noted had rectal bleeding last night in association with prior hemorrhoids and rectal prolapse. Patient had similar event with Eliquis in the past symptoms have subsided. Telemetry reveals good control of arrhythmias current EKGs reflect good tolerance of Tikosyn so far Physical Exam Constitutional: WD/WN, vitals as above + ill appearing, + obese and + cushingoid Eyes: PERRL, conjunctivae normal, anicteric sclerae ENMT: external ear and nose normal, oropharynx normal Neck: trachea midline, no thyromegaly Respiratory: no respiratory distress Auscultation: + diminished lung sounds; no wheezes and no bronchovesicular breath sounds Cardiovascular: Rate/Rhythm: regular rate and regular rhythm Heart Sounds: normal S1 and normal S2; no gallop and no murmur Palpation: normal PMI Vessels: normal carotid upstroke and radial pulses present; no JVD and no carotid bruit Extremities: no edema Gastrointestinal (Abdomen): normal bowel sounds, soft, nontender, no hepatosplenomegaly Musculoskeletal: no cyanosis or clubbing, extremities motor strength 5/5 Skin: no rashes, warm and dry Neurologic: PERRL, EOMI, accommodation nl, no face palsy, no dysarthria Psychiatric: A+Ox3, euthymic affect Results & Data Vital Signs (Past 12 Hours) Vital Signs Temp Pulse Pulse Pulse Resp BP Pulse Ox 07/25/19 07:11 36.7 C 80 22 97 07/25/19 04:00 36.7 C 81 108/61 95 07/25/19 00:17 36.9 C 07/25/19 00:00 85 07/24/19 23:38 76 16 99 Laboratory Results Laboratory Results - last 24 hr 07/24/19 07/24/19 07/24/19 11:50 11:53 12:10 WBC RBC Hgb Hct MCV MCH MCHC RDW Std Deviation RDW Coeff of Lawrence Plt Count MPV POC Glucose 308 H* 228 H 230 H 07/24/19 07/24/19 07/24/19 15:36 16:38 20:58 WBC RBC Hgb 10.8 L Hct 32.6 L MCV MCH MCHC RDW Std Deviation RDW Coeff of Lawrence Plt Count MPV POC Glucose 182 H 88 07/25/19 07/25/19 05:39 07:15 WBC 3.84 L RBC 3.38 L Hgb 10.2 L Hct 31.5 L MCV 93.2 MCH 30.2 MCHC 32.4 RDW Std Deviation 49.8 H RDW Coeff of Lawrence 14.6 H Plt Count 124 L MPV 9.8 POC Glucose 101 H (1) COPD (chronic obstructive pulmonary disease) COPD type: unspecified COPD Qualified Code(s): J44.9 - Chronic obstructive pulmonary disease, unspecified
[2019-07-25] MEDS ORDERED: PHARMACY GLYCEMIC MGMT CONSULT PRN (13:25)
[2019-07-25] MEDS: HYDROCORTISONE ACETATE 25 MG SUPP PR SCH ×2 (13:43→21:49)
--- NOTE | 2019-07-25 14:19 | Pharmacy Report ---
Glycemic Control Consultation - Date of Service July 25, 2019 - Scope Scope: Glycemic Pharmacist consulted by Dr Robin on 07/25/19 for glycemic control and to write orders per [facility] inpatient glycemic control protocol - Objective Weight: 119.7 kg Accuchecks BSG (last 24hrs): 07/24/19 07/24/19 07/25/19 16:38 20:58 07:15 POC Glucose 182 H 88 101 H 07/25/19 11:19 POC Glucose 209 H - Recent Pertinent Medications Outpatient Anti-diabetic Regimen: * Metformin The patient is currently receiving: * Basal insulin: Lantus 5 units every 12 hours * Correctional Insulin: Novolog Correction per scale ACHS Goal Range: Low 140 mg/dL - High 180 mg/dL Correction Factor: 25 mg/dL/unit * Prandial insulin: Per carb ratio of 1 unit per 15 grams CHO consumed * Oral Agents: - Assessment & Plan Assessment & Plan: ASSESSMENT: * 74yo T2DM female with unknown degree of outpatient control. No A1c in record. Will order per protocol. Pt did not receive any blood products for GI bleed. However, will have to interpret results cautiously secondary to anemia/blood loss. * Pt is maintained on metformin as an outpatient which was held on admission. Low dose SQ basal bolus insulin regimen initiated per provider. * Pt has been receiving ~24 units of insulin per day with near-adequate control * 10 units of basal insulin * 14 units of bolus insulin * AM fasting BSGs are in goal range indicating adequate basal insulin ordered * Post-prandial BSGs are high only when previous BSG was below 140mg/dl. This is because CHO coverage is being "subtracted" off when BSG below the ordered goal range (140-180mg/dl). Current orders are adequate, however, goal range needs adjusted to prevent rebound hyperglycemia. PLAN FOR INPATIENT GLYCEMIC CONTROL: * Holding outpatient oral diabetes medications * Basal insulin * Lantus 5 units SQ BID * Bolus insulin: lower goal range * NovoLog per scale ACHS or Q6hrs while NPO * Goal Range: Low 100 mg/dL - High 160 mg/dL * Correction Factor: 25 mg/dL/unit * Nutritional / Prandial insulin per carb ratio of 1 unit per 15 grams CHO consumed * Please note that the plan above was derived based on current level of insulin resistance and hospital stress. These recommendations are appropriate for inpatient admission only. Plan of care upon discharge will need to be reassessed to avoid potential outpatient hypo/hyperglycemia. Thank you.
--- NOTE | 2019-07-25 14:36 | Hospitalist Progress Note ---
Date of Service July 25, 2019 Assessment & Plan (1) Weakness: Lower GI bleed/acute bout blood loss anemia Improved, related to internal hemorrhoids, rectal prolapse Had multiple episode of painless bright red blood per rectum,(history of chronic hematochezia secondary to internal hemorrhoids, rectal vault prolapse) Patient was evaluated by [employer] surgery in [place], found to be a poor surgical candidate Treatment with pessary did not work in past Continue Anusol/steroid suppository 3 times daily H&H has been stable Remains high risk for rectal surgery conservative approach would be appropriate Continue Anusol suppository, Improvement of lower GI bleed plan to resume Xarelto possible tomorrow appreciate cardiology eval Avoid constipation continue bowel regimen PAROXYSMAL AFIB appreciate input from cardiology medication changed to Tikosyn 250 mcg BID ( sotatol d/yue ) Toprol XL dose adjusted anticoagulated with Xarelto kept on hold secondary to lower GI bleed/gross hematochezia Plan to resume Xarelto tomorrow ACUTE RENAL FAILURE Resolved, renal function at baseline cont to monitor BMP Baseline creatinine 1.08, CONSTIPATION ordered Relistor SC by GI team Developed bright red blood per rectum, history of internal hemorrhoids associated with rectal prolapse appreciate input from GI Senokot-S daily, PRN milk of magnesia Increase bowel regimen to prevent constipation, ordered MiraLAX twice daily COPD, chronic hypoxic respiratory failure At baseline Obstructive sleep apnea Continue BiPAP Chronic CHF diastolic type Continue Lasix follow vol status Diabetes type 2 Continue insulin sliding scale Hypertension Monitor Morbid obesity Counseling DVT prophylaxis SCD and teds, avoid anticoagulation secondary to lower GI bleed Disposition Lives with family at home PT and OT evaluation Subjective Rectal bleeding has improved, has minimum amount of bright bright red blood per rectum with bowel movement today No spontaneous bleed, Patient appears to be comfortable, no fever or chills, Complaint chest pain discomfort, sitting up on chair Tolerating Tikosyn well Physical Exam Constitutional: + obese; no acute distress Eyes: PERRL, conjunctivae normal, anicteric sclerae ENMT: external ear and nose normal, oropharynx normal Neck: normal visual inspection Respiratory: normal respiratory effort; no respiratory distress, no labored breathing and no cough Cardiovascular: Rate/Rhythm: regular rate; + abnormal rhythm Extremities: + edema (+ 1 bilat ) Gastrointestinal (Abdomen): normal bowel sounds, soft, nontender, no hepatosplenomegaly Musculoskeletal: no cyanosis or clubbing, extremities motor strength 5/5 Neurologic: PERRL, EOMI, accommodation nl, no face palsy, no dysarthria Psychiatric: A+Ox3, euthymic affect Results & Data Vital Signs (Past 12 Hours) Vital Signs Temp Pulse Pulse Pulse Resp BP Pulse Ox 07/25/19 12:12 36.9 C 97 H 19 104/73 98 07/25/19 11:10 87 07/25/19 07:11 36.7 C 80 22 97 07/25/19 04:00 36.7 C 81 108/61 95
[2019-07-25] MEDS: DOCUSATE SODIUM/SENNA 50/8.6MG TAB PO SCH (20:50)
[2019-07-26] MEDS: LEVOTHYROXINE SODIUM 150 MCG TABLET PO SCH (05:54)
[2019-07-26 06:12] LABS: Hemoglobin 9.3 g/dL (12.0-16.0); Mean Corpuscular Hemoglobin 29.9 pg (25-34); Mean Corpuscular Hgb Conc 32.1 g/dL (32-36); Mean Corpuscular Volume 93.2 fL (80-100); Mean Platelet Volume 9.4 fL (7.4-10.4); Platelet Count 113 K/uL (130-400); RDW Coefficient of Variation 14.7 % (11.5-14.5); RDW Standard Deviation 49.6 fL (36.4-46.3); Red Blood Count 3.11 M/uL (4.2-5.4); White Blood Count 2.96 K/uL (4.8-10.8)
--- NOTE | 2019-07-26 08:26 | Surgery Progress Note ---
Date of Service doing better, no rectal bleeding, July 26, 2019 Assessment & Plan (1) Bleeding hemorrhoids: pt is a 74 year-old female who is consulted for bleeding hemorrhoid with rectal prolapse, now pt has no active rectal bleeding, no rectal pain, IMP: rectal prolapse, external hemorrhoid with II degree internal hemorrhoid, no active bleeding, Plan, agree with treatment plan, recommend: pt should follow up [facility] colorectal surgeon at [facility] out-patient base once pt is discharged, . pt agree with the plan, I answered all questions, 07/26/2019 8:25am. doing better, no rectal bleeding, sign off today, please call with questions, Thanks, Subjective Rectal bleeding has improved, has minimum amount of bright bright red blood per rectum with bowel movement today No spontaneous bleed, Patient appears to be comfortable, no fever or chills, Complaint chest pain discomfort, sitting up on chair Tolerating Tikosyn well Physical Exam Constitutional: WD/WN, vitals as above well developed and well nourished Neck: trachea midline, no thyromegaly Respiratory: normal respiratory effort, lungs clear to auscultation Gastrointestinal (Abdomen): Percussion/Palpation: abdomen soft Skin: no rashes, warm and dry Neurologic: awake Psychiatric: Orientation: alert and oriented x 3 Results & Data Vital Signs (Past 12 Hours) Vital Signs Temp Pulse Pulse Resp BP BP Pulse Ox 07/26/19 07:25 82 07/26/19 04:38 36.8 C 97 H 19 97/46 L 99 07/25/19 23:12 37.1 C 84 20 120/98 95 Laboratory Results Abnormal lab results 07/25/19 07/25/19 07/25/19 Range/Units 11:19 16:24 20:17 WBC (4.8-10.8) K/uL RBC (4.2-5.4) M/uL Hgb (12.0-16.0) g/dL Hct (37-47) % RDW Std Deviation (36.4-46.3) fL RDW Coeff of Lawrence (11.5-14.5) % Plt Count (130-400) K/uL POC Glucose 209 H 201 H 191 H (70-99) 07/26/19 07/26/19 Range/Units 05:48 07:33 WBC 2.96 L (4.8-10.8) K/uL RBC 3.11 L (4.2-5.4) M/uL Hgb 9.3 L (12.0-16.0) g/dL Hct 29.0 L (37-47) % RDW Std Deviation 49.6 H (36.4-46.3) fL RDW Coeff of Lawrence 14.7 H (11.5-14.5) % Plt Count 113 L (130-400) K/uL POC Glucose 118 H (70-99)
[2019-07-26] MEDS: INSULIN ASPART 100 UNITS/ML 3 ML PEN SC SCH ×5 (08:33→20:59)
[2019-07-26] MEDS: HYDROCORTISONE 1% CRM 30 GM TUBE EXT SCH ×2 (08:42→20:58)
[2019-07-26] MEDS: METOPROLOL SUCC 25MG EXT REL TAB PO SCH ×2 (08:44→20:55)
[2019-07-26] MEDS ORDERED: PREMARIN VAG CRM 14 APPLN/30 GM TUBE PV ONE (08:45)
[2019-07-26] MEDS: FUROSEMIDE 20 MG TAB PO SCH (08:47)
[2019-07-26] MEDS: MAGNESIUM OXIDE 400 MG TAB PO SCH ×2 (08:48→20:54)
[2019-07-26] MEDS: CEROVITE ADV FORMULA TAB PO SCH (08:48)
[2019-07-26] MEDS: POTASSIUM CHLORIDE 10 MEQ TABCR PO SCH (08:49)
[2019-07-26] MEDS: NYSTATIN SUSP 500,000 U/5 ML UDC PO SCH ×4 (08:50→19:46)
[2019-07-26] MEDS: POLYETHYLENE (MIRALAX) 17 GM PACK PO SCH ×2 (08:50→19:47)
[2019-07-26] MEDS: DOFETILIDE 125 MCG CAPSULE PO SCH ×2 (08:51→20:55)
[2019-07-26] MEDS: bisacodyL 5 MG TABEC PO SCH (08:55)
[2019-07-26] MEDS: OXYCODONE HCL 40 MG TABCR (OXYCONTIN) PO SCH ×2 (08:55→20:57)
[2019-07-26] MEDS ORDERED: INSULIN GLARGINE SOLOSTAR 100 UNITS/ML 3 ML PEN SQ SCH (09:00)
[2019-07-26] MEDS: METHYLNALTREXONE BROMIDE 12 MG/0.6 ML VIAL SQ SCH (09:29)
[2019-07-26] MEDS: HYDROCORTISONE ACETATE 25 MG SUPP PR SCH ×2 (09:29→20:55)
--- NOTE | 2019-07-26 09:39 | Pharmacy Report ---
Pharmacy Glycemic Short Note 2 - Date of Service July 26, 2019 - Glycemic Short BSG Results (Last 24 hours): 07/25/19 07/25/19 07/25/19 11:19 16:24 20:17 POC Glucose 209 H 201 H 191 H 07/26/19 07:33 POC Glucose 118 H Outpatient Anti-diabetic Regimen: * Metformin The patient is currently receiving: * Basal insulin: Lantus 5 units every 12 hours * Correctional Insulin: Novolog Correction per scale ACHS Goal Range: Low 100 mg/dL - High 160 mg/dL Correction Factor: 25 mg/dL/unit * Prandial insulin: Per carb ratio of 1 unit per 15 grams CHO consumed ASSESSMENT: * 74yo T2DM female with unknown degree of outpatient control. No A1c in record. Ordered per protocol. Pt did not receive any blood products for GI bleed. However, will have to interpret results cautiously secondary to anemia/blood loss. * Pt is maintained on metformin as an outpatient which was held on admission. Low dose SQ basal bolus insulin regimen initiated per provider. * Pt has been receiving ~24 units of insulin per day with near-adequate control * 10 units of basal insulin * 14 units of bolus insulin * AM fasting BSGs are in goal range indicating adequate basal insulin ordered * Lowered goal range yesterday to help improve post-prandial BSGs. CHO coverage was being "subtracted" off when BSG below the ordered goal range (140- 180mg/dl). However, BSGs still increase throughout the day. * Will increase AM dose of basal insulin since ~ 4 units of correctional insulin given throughout the day. * Pre-lunch BSG tends to be the highest, therefore will increase AM CHO ratio PLAN FOR INPATIENT GLYCEMIC CONTROL: * Holding outpatient oral diabetes medications * Basal insulin: increase AM dose * Lantus 8 units SQ AM + 5 units SQ PM * Bolus insulin: tighten CHO ratio * NovoLog per scale ACHS or Q6hrs while NPO * Goal Range: Low 100 mg/dL - High 160 mg/dL * Correction Factor: 25 mg/dL/unit * Nutritional / Prandial insulin per carb ratio of 1 unit per 10 grams CHO consumed for breakfast & 1 unit per 12 grams CHO consumed all other meals
--- NOTE | 2019-07-26 11:15 | Cardiology Progress Note ---
Date of Service July 26, 2019 Assessment & Plan (1) Paroxysmal atrial fibrillation: On Tikosyn and Toprol. QT mildly prolonged will need to follow closely Resume Xarelto today (2) COPD (chronic obstructive pulmonary disease): Severe, continue bronchodilators oxygen and nocturnal ventilatory supplementation (3) Hypoxia: Subjective Patient seen and examined, chart, medications, telemetry reviewed. Note chest pains or discomfort no dizziness or lightness continues to express she feels better off sotalol. Transient atrial tachycardia last night but rhythms trending trending towards better control. QT corrected this morning mildly elevated at 503 Physical Exam Constitutional: WD/WN, vitals as above + ill appearing, + obese and + cushingoid Eyes: PERRL, conjunctivae normal, anicteric sclerae ENMT: external ear and nose normal, oropharynx normal Neck: trachea midline, no thyromegaly Respiratory: no respiratory distress Auscultation: + diminished lung soun ds; no wheezes and no bronchovesicular breath sounds Cardiovascular: Rate/Rhythm: regular rate and regular rhythm Heart Sounds: normal S1 and normal S2; no gallop and no murmur Palpation: normal PMI Vessels: normal carotid upstroke and radial pulses present; no JVD and no carotid bruit Extremities: no edema Gastrointestinal (Abdomen): normal bowel sounds, soft, nontender, no hepato splenomegaly Musculoskeletal: no cyanosis or clubbing, extremities motor strength 5/5 Skin: no rashes, warm and dry Neurologic: PERRL, EOMI, accommodation nl, no face palsy, no dysarthria Psychiatric: A+Ox3, euthymic affect Results & Data Vital Signs (Past 12 Hours) Vital Signs Temp Pulse Pulse Pulse Resp BP BP 07/26/19 08:00 37 C 83 22 116/73 07/26/19 07:25 82 07/26/19 04:38 36.8 C 97 H 19 97/46 L Pulse Ox 07/26/19 08:00 96 07/26/19 07:25 07/26/19 04:38 99 Laboratory Results Laboratory Results - last 24 hr 07/25/19 07/25/19 07/25/19 11:19 16:24 20:17 WBC RBC Hgb Hct MCV MCH MCHC RDW Std Deviation RDW Coeff of Lawrence Plt Count MPV POC Glucose 209 H 201 H 191 H Estimat Average Glucose Hemoglobin A1c 07/26/19 07/26/19 07/26/19 05:48 05:48 07:33 WBC 2.96 L RBC 3.11 L Hgb 9.3 L Hct 29.0 L MCV 93.2 MCH 29.9 MCHC 32.1 RDW Std Deviation 49.6 H RDW Coeff of Lawrence 14.7 H Plt Count 113 L MPV 9.4 POC Glucose 118 H Estimat Average Glucose Pending Hemoglobin A1c Pending (1) COPD (chronic obstructive pulmonary disease) COPD type: unspecified COPD Qualified Code(s): J44.9 - Chronic obstructive pulmonary disease, unspecified
[2019-07-26 12:08] LABS: BUN Creatinine Ratio 7.7 (10-20); Calcium 8.7 mg/dl (8.5-10.1); Creatinine Clr Calc Pharmacy 65.9 ml/min; Est GFR (African American) 63.6; Est GFR (Non-African American) 54.9; Potassium 3.8 mmol/L (3.5-5.1)
[2019-07-26] MEDS: ACETAMINOPHEN 325 MG TAB PO PRN ×2 (12:41→23:14)
--- NOTE | 2019-07-26 18:09 | Hospitalist Progress Note ---
Date of Service July 26, 2019 Assessment & Plan (1) Weakness: Lower GI bleed/acute blood loss anemia No further episode of cross platelet blood per rectum for last 24 hours drop in hemoglobin noted: 10.29 .3 Patient remains asymptomatic Lower GI bleed hematochezia related to internal hemorrhoids, rectal prolapse Had multiple episode of painless bright red blood per rectum 2 days back,(history of chronic hematochezia secondary to internal hemorrhoids, rectal vault prolapse) Patient was evaluated by [facility] surgery in [place], found to be a poor surgical candidate Treatment with pessary did not work in past Abdomen improved after Anusol/steroid suppository continue twice daily, Patient input from surgery Recommends outpatient follow-up with colorectal surgery when discharge Continue to monitor H&H Resume Xarelto today Avoid constipation continue bowel regimen PAROXYSMAL AFIB appreciate input from cardiology medication changed to Tikosyn 250 mcg BID ( sotatol d/yue ) Toprol XL dose adjusted QTC noted to be prolonged 503 Continue to monitor on telemetry, daily EKG Cardiology following closely Resume anticoagulation with Xarelto ACUTE RENAL FAILURE Resolved, renal function at baseline cont to monitor BMP Baseline creatinine 1.08, CONSTIPATION Ordered for Relistor subcu-did not had any bowel movement for 2 days Developed bright red blood per rectum, history of internal hemorrhoids associated with rectal prolapse appreciate input from GI /was given 1 dose of subcu Relistor with good result/bowel movement Senokot-S daily, PRN milk of magnesia Increase bowel regimen to prevent constipation, ordered MiraLAX twice daily COPD, chronic hypoxic respiratory failure At baseline Obstructive sleep apnea Continue BiPAP Chronic CHF diastolic type Continue Lasix volume status stable Diabetes type 2 Continue insulin sliding scale Home medications: Metformin/Glucophage Exar 500 mg daily-has been kept on hold, will be resumed on discharge Hypertension BP remains stable Patient is continued with metoprolol succinate 25 mg twice daily, on Lasix 20 mg daily Morbid obesity Counseling DVT prophylaxis Xarelto resumed Disposition Lives with family at home PT and OT evaluation Plan to discharge home when medically stable Subjective No further episode of bleeding per rectum, patient reports she did not had any bowel movement since yesterday No complaint of palpitation, no dizzy spell or lightheadedness, no dyspnea on exertion or shortness of breath Denies of any abdominal pain no nausea vomiting QT corrected this morning mildly elevated at 503 Physical Exam Constitutional: + obese; no acute distress Eyes: PERRL, conjunctivae normal, anicteric sclerae ENMT: external ear and nose normal, oropharynx normal Neck: normal visual inspection Respiratory: normal respiratory effort; no respiratory distress, no labored breathing and no cough Cardiovascular: Rate/Rhythm: regular rate; + abnormal rhythm Extremities: + edema (+ 1 bilat ) Gastrointestinal (Abdomen): normal bowel sounds, soft, nontender, no hepatosplenomegaly Musculoskeletal: no cyanosis or clubbing, extremities motor strength 5/5 Neurologic: PERRL, EOMI, accommodation nl, no face palsy, no dysarthria Psychiatric: A+Ox3, euthymic affect Results & Data Vital Signs (Past 12 Hours) Vital Signs Temp Pulse Pulse Resp BP Pulse Ox 07/26/19 18:00 88 07/26/19 15:43 36.9 C 85 19 116/87 98 07/26/19 11:36 37.0 C 89 22 114/67 97 07/26/19 08:00 37 C 83 22 116/73 96 07/26/19 07:25 82
[2019-07-26] MEDS: DOCUSATE SODIUM/SENNA 50/8.6MG TAB PO SCH (19:47)
[2019-07-26] MEDS: RIVAROXABAN 20 MG TAB PO SCH (20:54)
[2019-07-26] MEDS: INSULIN GLARGINE SOLOSTAR 100 UNITS/ML 3 ML PEN SQ SCH (21:00)
[2019-07-27] MEDS: LEVOTHYROXINE SODIUM 150 MCG TABLET PO SCH (05:52)
[2019-07-27 05:54] LABS: Hematocrit (blood only) 29.1 % (37-47); Hemoglobin 9.6 g/dL (12.0-16.0); Mean Corpuscular Hemoglobin 31.1 pg (25-34); Mean Corpuscular Volume 94.2 fL (80-100); Platelet Count 105 K/uL (130-400); RDW Coefficient of Variation 14.9 % (11.5-14.5); RDW Standard Deviation 50.5 fL (36.4-46.3); Red Blood Count 3.09 M/uL (4.2-5.4); White Blood Count 3.26 K/uL (4.8-10.8)
[2019-07-27] MEDS: ALBUTEROL HFA 8 GM INHALER INH PRN (05:54)
[2019-07-27 06:33] LABS: Estimated Average Glucose 197 mg/dl; Hemoglobin A1C 8.5 % (4.5-5.6)
[2019-07-27] MEDS ORDERED: INSULIN ASPART 100 UNITS/ML 3 ML PEN SC SCH (07:30)
[2019-07-27] MEDS ORDERED: INSULIN GLARGINE SOLOSTAR 100 UNITS/ML 3 ML PEN SQ SCH (09:00)
[2019-07-27] MEDS: INSULIN ASPART 100 UNITS/ML 3 ML PEN SC SCH ×4 (09:49→21:11)
[2019-07-27] MEDS: POTASSIUM CHLORIDE 10 MEQ TABCR PO SCH (09:50)
[2019-07-27] MEDS: CEROVITE ADV FORMULA TAB PO SCH ×2 (09:50→10:00)
[2019-07-27] MEDS: HYDROCORTISONE ACETATE 25 MG SUPP PR SCH ×2 (09:50→20:04)
[2019-07-27] MEDS: FUROSEMIDE 20 MG TAB PO SCH (09:51)
[2019-07-27] MEDS: MAGNESIUM OXIDE 400 MG TAB PO SCH ×2 (09:53→21:03)
[2019-07-27] MEDS: HYDROCORTISONE 1% CRM 30 GM TUBE EXT SCH ×2 (09:54→20:04)
[2019-07-27] MEDS: NYSTATIN SUSP 500,000 U/5 ML UDC PO SCH ×3 (09:54→17:18)
[2019-07-27] MEDS: POLYETHYLENE (MIRALAX) 17 GM PACK PO SCH ×2 (09:55→21:01)
[2019-07-27] MEDS: PREMARIN VAG CRM 14 APPLN/30 GM TUBE PV SCH (09:55)
[2019-07-27] MEDS: OXYCODONE HCL 40 MG TABCR (OXYCONTIN) PO SCH ×2 (09:58→21:06)
[2019-07-27] MEDS: bisacodyL 5 MG TABEC PO SCH (09:58)
[2019-07-27] MEDS: METOPROLOL SUCC 25MG EXT REL TAB PO SCH ×2 (10:05→21:02)
--- NOTE | 2019-07-27 10:15 | Cardiology Progress Note ---
Date of Service July 27, 2019 Assessment & Plan (1) Paroxysmal atrial fibrillation: On Tikosyn and Toprol. QT within reasonable limits at this time we will continue current dosing Tikosyn 250 mcg twice per day and Toprol 25 mill grams twice per day Resume Xarelto Will resume spironolactone 12.5 mill grams p.o. daily Can use furosemide on a as needed basis no current indication (2) COPD (chronic obstructive pulmonary disease): Severe, continue bronchodilators oxygen and nocturnal ventilatory supplementation (3) Hypoxia: Subjective No complaints overnight. No chest pains or discomfort no dizziness or lightheadedness. Mildly wheezy this morning after ambulatory to the bathroom. No edema no further bleeding has resumed Xarelto QT corrected last evening 462 Physical Exam Constitutional: WD/WN, vitals as above + ill appearing, + obese and + cushingoid Eyes: PERRL, conjunctivae normal, anicteric sclerae ENMT: external ear and nose normal, oropharynx normal Neck: trachea midline, no thyromegaly Respiratory: no respiratory distress Auscultation: + diminished lung sounds and + wheezes (Few); no bronchovesicular breath sounds Cardiovascular: Rate/Rhythm: regular rate and regular rhythm Heart Sounds: normal S1 and normal S2; no gallop and no murmur Palpation: normal PMI Vessels: normal carotid upstroke and radial pulses present; no JVD and no carotid bruit Extremities: no edema Gastrointestinal (Abdomen): normal bowel sounds, soft, nontender, no hepatosplenomegaly Musculoskeletal: no cyanosis or clubbing, extremities motor strength 5/5 Skin: no rashes, warm and dry Neurologic: PERRL, EOMI, accommodation nl, no face palsy, no dysarthria Psychiatric: A+Ox3, euthymic affect Results & Data Vital Signs (Past 12 Hours) Vital Signs Temp Pulse Pulse Resp BP BP Pulse Ox 07/27/19 06:30 36.9 C 77 20 164/84 H 99 07/27/19 04:00 36.6 C 74 19 101/63 98 07/27/19 00:00 37.0 C 78 18 110/53 L 99 Laboratory Results Laboratory Results - last 24 hr 07/26/19 07/26/19 07/26/19 05:48 11:25 11:27 WBC RBC Hgb Hct MCV MCH MCHC RDW Std Deviation RDW Coeff of Lawrence Plt Count MPV Sodium 136 Potassium 3.8 Chloride 97 L Carbon Dioxide 34 H Anion Gap 5.0 BUN 8 Creatinine 1.02 Est Cr Clr Drug Dosing 65.9 Est GFR ( Amer) 63.6 Est GFR (Non-Af Amer) 54.9 BUN/Creatinine Ratio 7.7 L Glucose 55 L POC Glucose 67 L* Estimat Average Glucose 197 Hemoglobin A1c 8.5 H Calcium 8.7 07/26/19 07/26/19 07/26/19 11:28 16:10 20:13 WBC RBC Hgb Hct MCV MCH MCHC RDW Std Deviation RDW Coeff of Lawrence Plt Count MPV Sodium Potassium Chloride Carbon Dioxide Anion Gap BUN Creatinine Est Cr Clr Drug Dosing Est GFR ( Amer) Est GFR (Non-Af Amer) BUN/Creatinine Ratio Glucose POC Glucose 70 119 H 74 Estimat Average Glucose Hemoglobin A1c Calcium 07/27/19 07/27/19 05:42 07:21 WBC 3.26 L RBC 3.09 L Hgb 9.6 L Hct 29.1 L MCV 94.2 MCH 31.1 MCHC 33.0 RDW Std Deviation 50.5 H RDW Coeff of Lawrence 14.9 H Plt Count 105 L MPV 9.0 Sodium Potassium Chloride Carbon Dioxide Anion Gap BUN Creatinine Est Cr Clr Drug Dosing Est GFR ( Amer) Est GFR (Non-Af Amer) BUN/Creatinine Ratio Glucose POC Glucose 88 Estimat Average Glucose Hemoglobin A1c Calcium (1) COPD (chronic obstructive pulmonary disease) COPD type: unspecified COPD Qualified Code(s): J44.9 - Chronic obstructive pulmonary disease, unspecified
[2019-07-27] MEDS ORDERED: DOFETILIDE 125 MCG CAPSULE PO ONE (10:30)
[2019-07-27] MEDS: SPIRONOLACTONE 25 MG TAB PO SCH (10:59)
--- NOTE | 2019-07-27 17:47 | Hospitalist Progress Note ---
Date of Service July 27, 2019 Assessment & Plan (1) Weakness: Lower GI bleed/acute blood loss anemia Has no bleeding per rectum for some time Has been stable 9.3/9.6 Patient remains asymptomatic Lower GI bleed hematochezia related to internal hemorrhoids, rectal prolapse , Symptoms improved after per rectal Anusol suppository twice daily Surgery consulted, appreciate input, patient will need outpatient colorectal surgery Recommends outpatient follow-up with colorectal surgery when discharge Continue to monitor H&H Anticoagulation, Xarelto resumed Avoid constipation continue bowel regimen PAROXYSMAL AFIB appreciate input from cardiology medication changed to Tikosyn 250 mcg BID ( sotatol d/yue ) Toprol XL dose adjusted Continue to monitor on telemetry, daily EKG Cardiology following closely Resumed anticoagulation with Xarelto ACUTE RENAL FAILURE Resolved, renal function at baseline cont to monitor BMP Baseline creatinine 1.08, CONSTIPATION Ordered for Relistor subcu-did not had any bowel movement for 2 days Developed bright red blood per rectum, history of internal hemorrhoids associated with rectal prolapse appreciate input from GI /was given 1 dose of subcu Relistor with good result/bowel movement Senokot-S daily, PRN milk of magnesia Increase bowel regimen to prevent constipation, ordered MiraLAX twice daily COPD, chronic hypoxic respiratory failure At baseline Obstructive sleep apnea Continue BiPAP Chronic CHF diastolic type Continue Lasix volume status stable Diabetes type 2 Continue insulin sliding scale Home medications: Metformin/Glucophage Exar 500 mg daily-has been kept on hold, will be resumed on discharge Hypertension BP remains stable Patient is continued with metoprolol succinate 25 mg twice daily, on Lasix 20 mg daily Morbid obesity Counseling DVT prophylaxis Xarelto resumed Disposition Lives with family at home PT and OT evaluation Plan to discharge home when medically stable Subjective No complaint of chest pain, shortness of breath no palpitation no dizzy spell or lightheadedness No further episode of bright red blood per rectum, Fever or chills, Physical Exam Constitutional: + obese; no acute distress Eyes: PERRL, conjunctivae normal, anicteric sclerae ENMT: external ear and nose normal, oropharynx normal Neck: normal visual inspection Respiratory: normal respiratory effort; no respiratory distress, no labored breathing and no cough Cardiovascular: Rate/Rhythm: regular rate; + abnormal rhythm Extremities: + edema (+ 1 bilat ) Gastrointestinal (Abdomen): normal bowel sounds, soft, nontender, no hepatosplenomegaly Musculoskeletal: no cyanosis or clubbing, extremities motor strength 5/5 Neurologic: PERRL, EOMI, accommodation nl, no face palsy, no dysarthria Psychiatric: A+Ox3, euthymic affect Results & Data Vital Signs (Past 12 Hours) Vital Signs Temp Pulse Pulse Pulse Resp BP BP 07/27/19 15:14 36.8 C 88 20 111/74 07/27/19 11:25 36.8 C 77 20 113/59 L 07/27/19 10:39 76 07/27/19 06:30 36.9 C 77 20 164/84 H Pulse Ox 07/27/19 15:14 95 07/27/19 11:25 98 07/27/19 10:39 07/27/19 06:30 99
[2019-07-27] MEDS: DOFETILIDE 125 MCG CAPSULE PO SCH (21:02)
[2019-07-27] MEDS: RIVAROXABAN 20 MG TAB PO SCH (21:02)
[2019-07-27] MEDS: DOCUSATE SODIUM/SENNA 50/8.6MG TAB PO SCH (21:03)
[2019-07-27] MEDS: INSULIN GLARGINE SOLOSTAR 100 UNITS/ML 3 ML PEN SQ SCH (21:10)
[2019-07-27] MEDS ORDERED: bisacodyL 10 MG SUPP PR STA (21:47)
[2019-07-27 22:36] LABS: Appearance Urine Turbid (Clear); Bacteria Urine Automated 2+ (Negative); Bilirubin Urine Negative (Negative); Blood Urine 1+ (Negative); Color Urine Yellow; Epithelial Cell Urine Auto >30 /lpf (0-5); Glucose Urine UA Negative (Negative); Ketones Urine Negative (Negative); Leukocyte Esterase Urine 3+ (Negative); Nitrite Urine Positive (Negative); Specific Gravity Urine 1.014 (1.000-1.030); Urobilinogen Urine Negative (Negative); WBC Urine Automated >30 /hpf (0-5); pH Urine 8.5 (4.5-7.5)
[2019-07-27 22:44] LABS: Protein Urine 1+ (Negative); Sulfosalicylic Acid Urine Positive (Negative)
[2019-07-27 22:46] LABS: Triple Phosphate Crystal Urine Present (None Prsent)
[2019-07-27 22:47] LABS: RBC Urine Automated 0-4 /hpf (0-4)
[2019-07-27] MEDS ORDERED: AZTREONAM CONSULT ACTIVE PRN (23:06)
[2019-07-27] MEDS: AZTREONAM 1,000 MG in DEXTROSE 5% 100 ML IV SCH (23:28)
[2019-07-28] MEDS: ACETAMINOPHEN 325 MG TAB PO PRN (02:29)
[2019-07-28] MEDS: LEVOTHYROXINE SODIUM 150 MCG TABLET PO SCH (05:21)
[2019-07-28] MEDS: SPIRONOLACTONE 25 MG TAB PO SCH (07:49)
[2019-07-28] MEDS: AZTREONAM 1,000 MG in DEXTROSE 5% 100 ML IV SCH ×3 (07:49→23:35)
[2019-07-28] MEDS: HYDROCORTISONE 1% CRM 30 GM TUBE EXT SCH ×2 (07:51→20:51)
[2019-07-28] MEDS: HYDROCORTISONE ACETATE 25 MG SUPP PR SCH ×2 (07:51→20:47)
[2019-07-28] MEDS: POTASSIUM CHLORIDE 10 MEQ TABCR PO SCH (07:51)
[2019-07-28] MEDS: MAGNESIUM OXIDE 400 MG TAB PO SCH ×2 (07:52→20:53)
[2019-07-28] MEDS: FUROSEMIDE 20 MG TAB PO SCH (07:52)
[2019-07-28] MEDS: DOFETILIDE 125 MCG CAPSULE PO SCH ×2 (07:53→20:53)
[2019-07-28] MEDS: POLYETHYLENE (MIRALAX) 17 GM PACK PO SCH (07:53)
[2019-07-28] MEDS: CEROVITE ADV FORMULA TAB PO SCH (07:53)
[2019-07-28] MEDS: METHYLNALTREXONE BROMIDE 12 MG/0.6 ML VIAL SQ SCH (07:54)
[2019-07-28] MEDS: METOPROLOL SUCC 25MG EXT REL TAB PO SCH ×2 (07:54→20:52)
[2019-07-28] MEDS: INSULIN ASPART 100 UNITS/ML 3 ML PEN SC SCH ×4 (07:59→20:48)
[2019-07-28] MEDS: bisacodyL 5 MG TABEC PO SCH (08:12)
[2019-07-28] MEDS: OXYCODONE HCL 40 MG TABCR (OXYCONTIN) PO SCH ×2 (08:12→20:59)
[2019-07-28] MEDS ORDERED: INSULIN GLARGINE SOLOSTAR 100 UNITS/ML 3 ML PEN SQ SCH (09:00)
--- NOTE | 2019-07-28 09:01 | Pharmacy Report ---
Pharmacy Glycemic Short Note 2 - Date of Service July 28, 2019 - Glycemic Short BSG Results (Last 24 hours): 07/27/19 07/27/19 07/27/19 11:25 16:04 20:26 POC Glucose 155 H 179 H 135 H 07/28/19 07:26 POC Glucose 121 H Outpatient Anti-diabetic Regimen: * Metformin The patient is currently receiving: * Basal insulin: Lantus 6 units qam; 5 units qpm * Correctional Insulin: Novolog Correction per scale ACHS Goal Range: Low 100 mg/dL - High 160 mg/dL Correction Factor: 25 mg/dL/unit for breakfast, 35 mg/dL/unit all other meals * Prandial insulin: Per carb ratio of 1 unit per 12 grams CHO consumed for breakfast, 1 unit per 15 grams CHO consumed for all other meals ASSESSMENT: * 74yo T2DM female with unknown degree of outpatient control. A1C 8.5% GI bleed. Will have to interpret results cautiously secondary to anemia/blood loss for GI bleed. * Patient relatively well controlled yesterday. Dinner BSG somewhat elevated. Will adjust novolog scale and morning lantus dose slightly * Patient received 23 units of insulin yesterday. PLAN FOR INPATIENT GLYCEMIC CONTROL: * Holding outpatient oral diabetes medications * Basal insulin: increase AM dose * Lantus 7 units SQ AM + 5 units SQ PM * Bolus insulin: tighten CHO ratio * NovoLog per scale ACHS or Q6hrs while NPO * Goal Range: Low 100 mg/dL - High 160 mg/dL * Correction Factor: 25 mg/dL/unit for breakfast 35 mg/dL/unit all other meals * Nutritional / Prandial insulin per carb ratio of 1 unit per 12 grams CHO consumed for breakfast & 1 unit per 14 grams CHO consumed all other meals
[2019-07-28 10:50] LABS: Creatinine Clr Calc Pharmacy 63.5 ml/min; Est GFR (African American) 60.8; Est GFR (Non-African American) 52.4
--- NOTE | 2019-07-28 11:39 | Cardiology Progress Note ---
Date of Service July 28, 2019 Assessment & Plan (1) Paroxysmal atrial fibrillation: On Tikosyn and Toprol. QT within reasonable limits at this time we will continue current dosing Tikosyn 250 mcg twice per day and Toprol 25 mill grams twice per day Resume Xarelto Will resume spironolactone 12.5 mill grams p.o. daily. Resume furosemide 20 mill grams 3 days/week (2) COPD (chronic obstructive pulmonary disease): Severe, continue bronchodilators oxygen and nocturnal ventilatory supplementation (3) Hypoxia: Subjective Patient seen and examined, chart, medications, telemetry reviewed. No cardiac issues overnight no arrhythmias on telemetry. Dyspneic with exertion as per baseline. Physical Exam Constitutional: WD/WN, vitals as above + obese and + cushingoid Eyes: PERRL, conjunctivae normal, anicteric sclerae ENMT: external ear and nose normal, oropharynx normal Neck: trachea midline, no thyromegaly Respiratory: no respiratory distress Auscultation: + diminished lung sounds and + wheezes (Few); no bronchovesicular breath sounds Cardiovascular: Rate/Rhythm: regular rate and regular rhythm Heart Sounds: normal S1 and normal S2; no gallop and no murmur Palpation: normal PMI Vessels: normal carotid upstroke and radial pulses present; no JVD and no carotid bruit Extremities: no edema Gastrointestinal (Abdomen): normal bowel sounds, soft, nontender, no hepatosplenomegaly Musculoskeletal: no cyanosis or clubbing, extremities motor strength 5/5 Skin: no rashes, warm and dry Neurologic: PERRL, EOMI, accommodation nl, no face palsy, no dysarthria Psychiatric: A+Ox3, euthymic affect Results & Data Vital Signs (Past 12 Hours) Vital Signs Temp Pulse Pulse Pulse Resp BP Pulse Ox 07/28/19 08:00 95 H 07/28/19 07:42 36.7 C 99 H 17 143/82 H 99 07/28/19 03:45 36.9 C 82 20 104/51 L 97 07/28/19 00:00 37.6 C H 86 21 101/56 L 98 (1) COPD (chronic obstructive pulmonary disease) COPD type: unspecified COPD Qualified Code(s): J44.9 - Chronic obstructive pulmonary disease, unspecified
[2019-07-28] MEDS ORDERED: bisacodyL 10 MG SUPP PR PRN (14:06)
[2019-07-28] MEDS ORDERED: DOCUSATE SODIUM/SENNA 50/8.6MG TAB PO PRN (14:07)
[2019-07-28] MEDS ORDERED: bisacodyL 5 MG TABEC PO PRN (14:07)
[2019-07-28 16:11] LABS: Hematocrit (blood only) 30.9 % (37-47)
--- NOTE | 2019-07-28 16:53 | Hospitalist Progress Note ---
Date of Service July 28, 2019 Assessment & Plan (1) Weakness: Lower GI bleed/acute blood loss anemia Intermittent painless bright red bleeding per rectum secondary to rectal prolapse, internal hemorrhoids Repeat H&H ordered for this afternoon: Shows stable hemoglobin 10 Continue per rectal Anusol suppository twice daily Surgery consulted, appreciate input, patient will need outpatient colorectal surgery Recommends outpatient follow-up with colorectal surgery when discharge Anticoagulation, Xarelto resumed Avoid constipation continue bowel regimen UTI Resolved burning sensation with urination/increased frequency Urine noted to be grossly positive, turbid, positive nitrite positive leukocyte esterase, with bacteria Urine culture ordered: Growing Proteus, sensitivity pending Patient is started on IV Azactam(allergy to penicillin/quinolones should be avoided for QTC prolongation/allergy to sulfa) Follow sensitivity Patient has baseline chronic urinary retention secondary to bladder prolapse Need to discuss with ID for recommendation and duration of antibiotic treatment for UTI PAROXYSMAL AFIB appreciate input from cardiology medication changed to Tikosyn 250 mcg BID ( sotatol d/yue ) Toprol XL dose adjusted to 5 mg twice daily Xarelto for stroke prophylaxis Outpatient follow-up with cardiology Dr. Law ACUTE RENAL FAILURE Resolved, renal function at baseline cont to monitor BMP Baseline creatinine 1.08, CONSTIPATION appreciate input from GI /was given 1 dose of subcu Relistor with good result/bowel movement And will be seen by GI team outpatient may need sigmoidoscopy for internal hemorrhoids, referral to colorectal surgery Continue bowel regimen to prevent constipation COPD, chronic hypoxic respiratory failure At baseline Obstructive sleep apnea Continue BiPAP Chronic CHF diastolic type Volume status is stable Resumed Aldactone 12.5 mg daily Lasix 20 mg 3 days a week appreciate input from cardiology Diabetes type 2 Continue insulin sliding scale Home medications: Metformin/Glucophage Exar 500 mg daily-has been kept on hold, will be resumed on discharge Hypertension BP remains stable Patient is continued with metoprolol succinate 25 mg twice daily, Morbid obesity Counseling DVT prophylaxis Xarelto resumed Disposition Lives with family at home PT and OT evaluation Possible discharge home with home health home PT tomorrow Subjective Patient reports of noticing blood with bowel movement, Pain or discomfort, Denies of any shortness of breath, palpitation no dizzy spell or lightheadedness Heart rate has been stable Appreciate input from cardiology Recommends continue Tikosyn to 50 mcg twice daily(sotalol discontinued) Beta-daphne dose adjusted Toprol-XL 25 mg twice daily Commenced to resume Aldactone 12.5 mg daily Lasix dose adjusted to 20 mg 3 days a week Physical Exam Constitutional: + obese; no acute distress Eyes: PERRL, conjunctivae normal, anicteric sclerae ENMT: external ear and nose normal, oropharynx normal Neck: normal visual inspection Respiratory: normal respiratory effort; no respiratory distress, no labored breathing and no cough Cardiovascular: Rate/Rhythm: regular rate; + abnormal rhythm Extremities: + edema (+ 1 bilat ) Gastrointestinal (Abdomen): normal bowel sounds, soft, nontender, no hepatosplenomegaly Musculoskeletal: no cyanosis or clubbing, extremities motor strength 5/5 Neurologic: PERRL, EOMI, accommodation nl, no face palsy, no dysarthria Psychiatric: A+Ox3, euthymic affect Results & Data Vital Signs (Past 12 Hours) Vital Signs Temp Pulse Pulse Pulse Resp BP Pulse Ox 07/28/19 14:44 102 H 07/28/19 11:25 36.8 C 91 H 18 114/60 98 07/28/19 08:00 95 H 07/28/19 07:42 36.7 C 99 H 17 143/82 H 99
[2019-07-28] MEDS: ALBUTEROL HFA 8 GM INHALER INH PRN (20:46)
[2019-07-28] MEDS: INSULIN GLARGINE SOLOSTAR 100 UNITS/ML 3 ML PEN SQ SCH (20:48)
[2019-07-28] MEDS: RIVAROXABAN 20 MG TAB PO SCH (20:52)
[2019-07-29] MEDS: ACETAMINOPHEN 325 MG TAB PO PRN (00:45)
[2019-07-29] MEDS: LEVOTHYROXINE SODIUM 150 MCG TABLET PO SCH (06:00)
[2019-07-29] MEDS: ALBUTEROL HFA 8 GM INHALER INH PRN (06:00)
[2019-07-29] MEDS: SPIRONOLACTONE 25 MG TAB PO SCH (08:50)
[2019-07-29] MEDS: METOPROLOL SUCC 25MG EXT REL TAB PO SCH ×2 (08:50→20:10)
[2019-07-29] MEDS: POTASSIUM CHLORIDE 10 MEQ TABCR PO SCH (08:51)
[2019-07-29] MEDS: MAGNESIUM OXIDE 400 MG TAB PO SCH ×2 (08:51→20:10)
[2019-07-29] MEDS: DOFETILIDE 125 MCG CAPSULE PO SCH ×2 (08:52→20:10)
[2019-07-29] MEDS: HYDROCORTISONE ACETATE 25 MG SUPP PR SCH ×2 (08:53→20:11)
[2019-07-29] MEDS: CEROVITE ADV FORMULA TAB PO SCH (08:53)
[2019-07-29] MEDS: HYDROCORTISONE 1% CRM 30 GM TUBE EXT SCH ×2 (08:53→20:11)
[2019-07-29] MEDS: FUROSEMIDE 20 MG TAB PO SCH (08:54)
[2019-07-29] MEDS: POLYETHYLENE (MIRALAX) 17 GM PACK PO SCH ×2 (08:54→16:29)
[2019-07-29] MEDS: INSULIN ASPART 100 UNITS/ML 3 ML PEN SC SCH ×4 (09:09→20:13)
[2019-07-29] MEDS: AZTREONAM 1,000 MG in DEXTROSE 5% 100 ML IV SCH (09:24)
[2019-07-29] MEDS: PREMARIN VAG CRM 14 APPLN/30 GM TUBE PV SCH (09:26)
[2019-07-29] MEDS: OXYCODONE HCL 40 MG TABCR (OXYCONTIN) PO SCH ×2 (09:36→20:27)
[2019-07-29] MEDS: INSULIN GLARGINE SOLOSTAR 100 UNITS/ML 3 ML PEN SC SCH ×2 (09:44→20:12)
--- NOTE | 2019-07-29 11:15 | Hospitalist Progress Note ---
Date of Service July 29, 2019 Assessment & Plan (1) Weakness: Lower GI bleed/acute blood loss anemia per Dr. Robin notes: Intermittent painless bright red bleeding per rectum secondary to rectal prolapse, internal hemorrhoids stable hemoglobin 10 Continue per rectal Anusol suppository twice daily Surgery consulted, appreciate input, patient will need outpatient colorectal surgery Recommends outpatient follow-up with colorectal surgery when discharge Anticoagulation, Xarelto resumed Avoid constipation continue bowel regimen UTI per Dr. Robin notes: Resolved burning sensation with urination/increased frequency Urine noted to be grossly positive, turbid, positive nitrite positive leukocyte esterase, with bacteria Urine culture ordered: Growing Proteus, pansensitive Transition from Azactam to cefdinir p.o., monitor overnight Will need at least 7 days of antibiotic therapy Patient has baseline chronic urinary retention secondary to bladder prolapse PAROXYSMAL AFIB per Dr. Robin notes: appreciate input from cardiology medication changed to Tikosyn 250 mcg BID ( sotatol d/yue ) Toprol XL dose adjusted to 5 mg twice daily Xarelto for stroke prophylaxis Outpatient follow-up with cardiology Dr. aLw per Dr. Robin notes: ACUTE RENAL FAILURE Resolved, renal function at baseline cont to monitor BMP Baseline creatinine 1.08, CONSTIPATION appreciate input from GI /was given 1 dose of subcu Relistor with good result/bowel movement And will be seen by GI team outpatient may need sigmoidoscopy for internal hemorrhoids, referral to colorectal surgery Continue bowel regimen to prevent constipation COPD, chronic hypoxic respiratory failure At baseline Obstructive sleep apnea Continue BiPAP Chronic CHF diastolic type Volume status is stable Resumed Aldactone 12.5 mg daily Lasix 20 mg 3 days a week appreciate input from cardiology Diabetes type 2 Continue insulin sliding scale Home medications: Metformin/Glucophage Exar 500 mg daily-has been kept on hold, will be resumed on discharge Hypertension BP remains stable Patient is continued with metoprolol succinate 25 mg twice daily, Morbid obesity Counseling DVT prophylaxis Xarelto resumed Disposition Lives with family at home PT and OT evaluation Possible discharge home with home health home PT tomorrow Subjective Follow-up for weakness, UTI Seen resting in bed, watching TV, no distress, comfortable She feels improved overall Denies chest pain, palpitations, shortness of breath, dizziness, nausea vomiting Patient is ambulating no problems Denies urinary symptoms, flank pain, abdominal pain No other symptoms Review of Systems Review of Systems: All systems reviewed & are unremarkable except as noted in HPI & below Physical Exam Physical Exam: General- oriented x 3, not in distress, speaks in sentences with no effort or accessory muscle use Eyes- anicteric Neck- no JVD Lungs- clear breath sounds bilaterally, no rales/wheezes Heart- normal rate, regular rhythm; no murmurs Abdomen- normal bowel sounds, nondistended, soft, nontender Extremities- no pretibial edema, no calf tenderness Neuro- alert, oriented x 3; no gross focal neurologic deficits Skin- warm & dry Results & Data Vital Signs (Past 12 Hours) Vital Signs Temp Pulse Pulse Pulse Resp BP BP 07/29/19 07:30 36.6 C 78 19 132/68 07/29/19 07:23 71 07/29/19 03:08 36.6 C 79 19 127/73 07/29/19 00:00 36.5 C 83 20 125/75 07/28/19 23:46 94 H Pulse Ox 07/29/19 07:30 98 07/29/19 07:23 07/29/19 03:08 99 07/29/19 00:00 97 07/28/19 23:46 Laboratory Results Laboratory Results - last 24 hr 07/28/19 07/29/19 07/29/19 20:46 08:05 11:32 Sodium 135 L Potassium 4.6 Chloride 97 L Carbon Dioxide 34 H Anion Gap 4.0 BUN 10 Creatinine 0.91 Est Cr Clr Drug Dosing 73.8 Est GFR ( Amer) 73.1 Est GFR (Non-Af Amer) 63.0 BUN/Creatinine Ratio 11.0 Glucose 123 H POC Glucose 143 H 101 H Calcium 9.4 Magnesium 2.0 07/29/19 07/29/19 11:55 16:35 Sodium Potassium Chloride Carbon Dioxide Anion Gap BUN Creatinine Est Cr Clr Drug Dosing Est GFR ( Amer) Est GFR (Non-Af Amer) BUN/Creatinine Ratio Glucose POC Glucose 123 H 159 H Calcium Magnesium
[2019-07-29] MEDS: CEFDINIR 300 MG CAP PO SCH ×2 (11:28→20:10)
--- NOTE | 2019-07-29 11:31 | Pharmacy Report ---
Pharmacy Glycemic Short Note 2 - Date of Service July 29, 2019 - Glycemic Short BSG Results (Last 24 hours): 07/28/19 07/28/19 07/29/19 16:17 20:46 08:05 POC Glucose 148 H 143 H 101 H Outpatient Anti-diabetic Regimen: * Metformin The patient is currently receiving: * Basal insulin: Lantus 7 units qam; 5 units qpm * Correctional Insulin: Novolog Correction per scale ACHS Goal Range: Low 100 mg/dL - High 160 mg/dL Correction Factor: 25 mg/dL/unit for breakfast, 35 mg/dL/unit all other meals * Prandial insulin: Per carb ratio of 1 unit per 12 grams CHO consumed for breakfast, 1 unit per 15 grams CHO consumed for all other meals ASSESSMENT: * 74yo T2DM female with unknown degree of outpatient control. A1C 8.5% GI bleed. Will have to interpret results cautiously secondary to anemia/blood loss for GI bleed. * BSG's well controlled yesterday ranging 102-148 mg/dL * Will make a very slight adjustment to Lantus parameters to provide decrease BSG < 100 mg/dL as AM fasting BSG decreased slightly from 121 mg/dL yesterday to 101 mg/dL today. Total of 12 units will still be administered (same as yesterday) assuming AM and HS BSG's are not below 100 mg/dL * OK to adjust goal range down PLAN FOR INPATIENT GLYCEMIC CONTROL: * Hold outpatient metformin * Basal insulin - Lantus BID based on BSG * 4 units for BSG less than 100 mg/dL * 6 units for BSG 100 mg/dL or greater * Bolus insulin: tighten CHO ratio * NovoLog per scale ACHS or Q6hrs while NPO * Goal Range: Low 110 mg/dL - High 150 mg/dL * Correction Factor: 25 mg/dL/unit for breakfast, 35 mg/dL/unit all other meals * Nutritional / Prandial insulin per carb ratio of 1 unit per 12 grams CHO consumed for breakfast & 1 unit per 14 grams CHO consumed all other meals
[2019-07-29 12:12] LABS: Calcium 9.4 mg/dl (8.5-10.1); Creatinine Clr Calc Pharmacy 73.8 ml/min; Est GFR (African American) 73.1; Potassium 4.6 mmol/L (3.5-5.1)
[2019-07-29] MEDS: LEVALBUTEROL HCL 1.25 MG/3 ML NEB NEB PRN (15:39)
[2019-07-29] MEDS: RIVAROXABAN 20 MG TAB PO SCH (20:11)
[2019-07-29] MEDS: OXYCODONE HCL IR 5 MG TAB (IMMEDIATE RELEASE) PO PRN (20:19)
[2019-07-30] MEDS: ACETAMINOPHEN 325 MG TAB PO PRN (03:37)
[2019-07-30] MEDS: ALBUTEROL HFA 8 GM INHALER INH PRN ×2 (03:44→10:52)
[2019-07-30] MEDS: LEVOTHYROXINE SODIUM 150 MCG TABLET PO SCH (06:02)
[2019-07-30 06:49] LABS: BUN Creatinine Ratio 11.6 (10-20); Calcium 8.8 mg/dl (8.5-10.1); Creatinine Clr Calc Pharmacy 64.7 ml/min; Est GFR (African American) 62.2; Est GFR (Non-African American) 53.6; Magnesium 1.9 mg/dl (1.8-2.4)
[2019-07-30] MEDS: OXYCODONE HCL IR 5 MG TAB (IMMEDIATE RELEASE) PO PRN (06:49)
[2019-07-30] MEDS: CEFDINIR 300 MG CAP PO SCH (08:06)
[2019-07-30] MEDS: CEROVITE ADV FORMULA TAB PO SCH (08:06)
[2019-07-30] MEDS: METOPROLOL SUCC 25MG EXT REL TAB PO SCH (08:06)
[2019-07-30] MEDS: POTASSIUM CHLORIDE 10 MEQ TABCR PO SCH (08:07)
[2019-07-30] MEDS: DOFETILIDE 125 MCG CAPSULE PO SCH (08:07)
[2019-07-30] MEDS: HYDROCORTISONE ACETATE 25 MG SUPP PR SCH (08:07)
[2019-07-30] MEDS: HYDROCORTISONE 1% CRM 30 GM TUBE EXT SCH (08:08)
[2019-07-30] MEDS: POLYETHYLENE (MIRALAX) 17 GM PACK PO SCH (08:09)
[2019-07-30] MEDS: MAGNESIUM OXIDE 400 MG TAB PO SCH (08:09)
[2019-07-30] MEDS: SPIRONOLACTONE 25 MG TAB PO SCH (08:09)
[2019-07-30] MEDS: INSULIN ASPART 100 UNITS/ML 3 ML PEN SC SCH ×3 (08:10→17:21)
[2019-07-30] MEDS: INSULIN GLARGINE SOLOSTAR 100 UNITS/ML 3 ML PEN SC SCH (08:11)
[2019-07-30] MEDS: OXYCODONE HCL 40 MG TABCR (OXYCONTIN) PO SCH (08:17)
[2019-07-30] MEDS ORDERED: FUROSEMIDE 20 MG TAB PO SCH (09:00)
[2019-07-30] MEDS: LEVALBUTEROL HCL 1.25 MG/3 ML NEB NEB PRN (10:46)
--- NOTE | 2019-07-30 15:00 | Discharge Summary ---
Date of Service July 30, 2019 Admission HPI Per Admitting Provider History obtained from patient and records. Medical history significant for chronic respiratory failure secondary to COPD on home O2, chronic diastolic heart failure, EF 57% TTE 2018, cor pulmonale as per records, ZEYAD (CPAP intolerance), HTN, PAF on Xarelto, DM2 on oral medications , chronic pain on narcotics, history of recurrent cystitis/cystocele, history of pancreatitis as per records, IBS, constipation predominant. Recent confinement July 2018 for respiratory failure secondary to COPD exacerbation. Last few weeks patient noted irregular heartbeat symptoms, increased generalized weakness with some shortness of breath on exertion. No fluid retention. BP low on standing up as per patient. Patient denies cough, wheezing symptoms, chest pain. Patient thinks she is dehydrated. Fair appetite, denies depression. O2 sats transiently in the 80s at the ER. Patient received neb treatment. 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 Discharge Data Allergies Allergy/AdvReac Type Severity Reaction Status Date / Time arformoterol Allergy Severe TACHYCARDIA Unverified 07/19/19 19:20 aspirin Allergy Severe HIVES, SOB Verified 07/19/19 19:20 ciprofloxacin Allergy Severe Unknown Verified 07/19/19 19:20 clarithromycin [From Biaxin] Allergy Severe Unknown Verified 07/19/19 19:20 egg Allergy Severe Unknown Verified 07/19/19 19:20 Iodinated Contrast Media Allergy Severe "CAUSED Verified 07/19/19 19:20 ASTHMA ATTACK" metaproterenol [From Alupent] Allergy Severe Unknown Verified 07/19/19 19:20 metformin [From Riomet] Allergy Severe Unknown Verified 07/19/19 19:20 milk Allergy Severe Unknown Verified 07/19/19 19:20 NSAIDS (Non-Steroidal Allergy Severe Hives Verified 07/19/19 19:20 Anti-Inflamma Penicillins Allergy Severe SOB, HIVES Verified 07/29/19 10:06 pioglitazone [From Actos] Allergy Severe Unknown Verified 07/19/19 19:20 Sulfa (Sulfonamide Allergy Severe Anaphylaxis Verified 07/19/19 19:20 Antibiotics) tiotropium Allergy Severe Unknown Verified 07/19/19 19:20 [From Spiriva with HandiHaler] wheat Allergy Severe Unknown Verified 07/19/19 19:20 aspartame Allergy Intermediate HIVES, Verified 07/19/19 19:20 ITCHY chlorhexidine Allergy Intermediate BLISTERY Verified 07/19/19 19:20 RASH ipratropium Allergy Mild SHORTNESS Verified 07/19/19 19:20 OF BREATH povidone Allergy Mild BLISTER Verified 07/19/19 19:20 WITH TAPE fish derived Allergy Unknown Unknown Verified 07/19/19 19:20 meperidine AdvReac Intermediate Gastrointestinal Verified 07/19/19 19:20 Upset morphine AdvReac Intermediate Gastrointestinal Verified 07/19/19 19:20 Upset adhesive AdvReac Mild BLISTERS Verified 07/19/19 19:20 WITH TAPE Consultations 07/19/19 21:30 ED Decision to Admit Stat 07/20/19 06:55 Consult Cardiology Routine 07/22/19 18:00 Consult Gastroenterology Routine 07/24/19 14:38 Consult General Surgery Routine Discharge Plan Discharge Items Patient Disposition: Home - Home Health Services Reason For Visit: RESP FAILURE Discharge Diagnosis: WEAKNESS, LIKELY FROM SOTALOL Activity: As commented below Activity Comment: Activity as tolerated, no heavy exertion until reevaluated by primary care physician Lifting: Wait until after follow-up appointment Exercise/Sports: Wait until after follow-up appointment Driving/Machine Use: No driving until re-evaluated and allowed by primary care physician Non-emergency contact: Primary Care Provider Call non-emergency contact if: you have any medication questions, your symptoms worsen and you have a fever Follow-up/Referrals: Kacey Carpenter [Physician] - Zaid Law MD [Physician] - Mendez Swann MD [Primary Care Provider] - 08/03/19 12:55 pm Diet: Heart Healthy Addtl Attending Provider Instructions: Please review your new medication list and follow instructions carefully. Follow-up with Dr. Swann as outlined above. Follow-up with Dr. Law and Dr. Carpenter in 1 to 2 weeks. Call primary care physician or return to the ER immediately if with worsening of symptoms. Call your Primary Care doctor if any of the following symptoms or problems start or get worse: Shortness of breath or difficulty breathing Wake up at night short of breath Chest pain Cough Swelling of your hands, feet, or legs More fatigued or tired with your normal activity Palpitations - sudden fast heart beats WEIGHT Weigh yourself every morning after using the bathroom. Use the same scale. Wear the same amount of clothing. Write your weight down on a chart. Call your Primary Care doctor if you gain more than 2-3 pounds in 1-2 days. MEDICATIONS Use this discharge instruction sheet for medication instructions. Take your medications at the time your doctor ordered. Do not skip a dose of your medicines. If you miss a dose of medicine, take it as soon as possible, but DO NOT DOUBLE A DOSE. Read your medicine information when you get home. Know all of the side effects of your medicine. If in doubt, ask your pharmacist Call your Primary Care doctor's office if you have any side effects. Be sure all of your doctors know what medicine and herbs you take (including cold, flu, and herbal medicine). Take the following with you to your follow-up doctor appointments: Weight Chart Medication List List of questions Do not drink excessive alcohol, beer or wine. Who to Call and When: Call 911 or go to the Emergency Room if: If at any time you feel your situation is an emergency You have tightness or pain in your chest that does not go away with rest or Nitroglycerin You are very short of breath even with rest. Pending Studies at Discharge: No Stand-Alone Forms: [facility] Medications and DC Order Prescriptions: New dofetilide [Tikosyn] 125 mcg Capsule 250 mcg PO BID 30 Days Qty: 120 RF: 0 metoprolol succinate 25 mg Tablet Extended Release 24 Hr 25 mg PO BID 30 Days Qty: 60 RF: 3 hydrocortisone acetate [Anucort-HC] 25 mg Suppository 25 mg VT BID 30 Days Qty: 60 RF: 0 furosemide 20 mg Tablet 20 mg PO TuThSa@0900 30 Days Qty: 12 RF: 2 potassium chloride [Klor-Con M10] 10 mEq Tablet,Er Particles/Crystals 10 meq PO DAILY 30 Days Qty: 30 RF: 2 polyethylene glycol 3350 [Miralax] 17 gram Powder In Packet 17 g PO DAILY 30 Days Qty: 30 RF: 2 metformin [Glucophage XR] 500 mg tablet extended release 24 hr 500 mg PO DAILY 30 Days Qty: 30 RF: 2 sennosides-docusate sodium [Senokot-S] 8.6-50 mg Tablet 2 tab PO HS 30 Days Qty: 0 RF: 0 Continued magnesium oxide [MagOx] 400 mg (241.3 mg magnesium) tablet 400 mg PO BID RF: 0 multivitamin with iron tablet 1 tab PO DAILY RF: 0 benzonatate [Tessalon Perles] 100 mg capsule 100 mg PO TID Qty: 1 RF: 0 levothyroxine 150 mcg capsule 150 mcg PO DAILY RF: 0 albuterol sulfate [Ventolin HFA] 90 mcg/actuation HFA aerosol inhaler 2 puff INHALATION Q6H PRN (Reason: Shortness Of Breath Or Wheezing) Qty: 3 RF: 1 cyclobenzaprine 10 mg Tablet 5 - 10 mg PO BID PRN (Reason: Muscle Spasm) RF: 0 albuterol sulfate 2.5 mg /3 mL (0.083 %) Solution For Nebulization 2.5 mg INHALATION Q4 PRN (Reason: Shortness Of Breath Or Wheezing) RF: 0 meclizine 25 mg Tablet 25 mg PO TID PRN (Reason: Dizziness) RF: 0 Premarin 0.625 mg/gram Cream 1 applic Topical MOWEFR RF: 0 oxycodone 10 mg Tablet 10 mg PO Q4 PRN (Reason: Pain) RF: 0 nystatin 100,000 unit/mL suspension 5 ml PO QID RF: 0 Xarelto 20 mg tablet 20 mg PO DAILY RF: 0 hydrocortisone acetate 1 % Cream 1 applic TOPICAL BID PRN (Reason: HEMMORIODS) RF: 0 Changed spironolactone 25 mg Tablet 12.5 mg PO DAILY Qty: 0 RF: 0 oxycodone [OxyContin] 60 mg Tablet Extended Release 12hr 30 mg PO Q12H Qty: 0 RF: 0 Discontinued sotalol [Betapace] 80 mg tablet 80 mg PO BID RF: 0 furosemide [Lasix] 40 mg Tablet 20 mg PO DAILY PRN (Reason: Fluid Retention) RF: 0 potassium chloride 10 mEq Tablet Extended Release 10 meq PO DAILY PRN (Reason: Other) RF: 0 Discharge Orders: Discharge Order (Routine); Ordered 07/30/19 Ordered By: Masood Rushing Admission Data Admit Date/Time: 07/19/19 22:30 Attending Provider: Masood Rushing Admit Provider: Jose R Strauss Primary Care Provider: Mendez Swann. Other Providers: Masood Rushing ; Jose R Strauss ; Selvin Turner ; Kacey Carpenter ; Massimo Cantu ; Millicent Enamorado ; Selvin Whitten ; Cinthya Ariza ; eNel Garces ; Clarence Car ; Lexi Gonzalez ; Christian Villegas ; Brynn Pavon ; Morgan Cox Jr ; Tawana Pappas ; Syeda Lebron ; Maeve Robin. ; Hospice[facility]Family
--- NOTE | 2019-07-30 19:40 | Hospitalist Progress Note ---
Date of Service delayed entry date of service as noted below July 30, 2019 Assessment & Plan (1) Weakness: Lower GI bleed/acute blood loss anemia per Dr. Robin notes: Intermittent painless bright red bleeding per rectum secondary to rectal prolapse, internal hemorrhoids stable hemoglobin 10 Continue per rectal Anusol suppository twice daily Surgery consulted, appreciate input, patient will need outpatient colorectal surgery Recommends outpatient follow-up with colorectal surgery when discharge Anticoagulation, Xarelto resumed Avoid constipation continue bowel regimen UTI per Dr. Robin notes: Resolved burning sensation with urination/increased frequency Urine noted to be grossly positive, turbid, positive nitrite positive leukocyte esterase, with bacteria Urine culture ordered: Growing Proteus, pansensitive Transitioned from Azactam to cefdinir p.o., reported mild dyspnea patient already received 4 days of antibiotic course which is sufficient for uncomplicated UTI PAROXYSMAL AFIB per Dr. Robin notes: appreciate input from cardiology medication changed to Tikosyn 250 mcg BID ( sotatol d/yue ) Toprol XL dose adjusted to 5 mg twice daily Xarelto for stroke prophylaxis -- patient tolerated medication changes well Outpatient follow-up with cardiology Dr. Law per Dr. Robin notes: ACUTE RENAL FAILURE Resolved, renal function at baseline cont to monitor BMP Baseline creatinine 1.08, CONSTIPATION appreciate input from GI /was given 1 dose of subcu Relistor with good result/bowel movement And will be seen by GI team outpatient may need sigmoidoscopy for internal hemorrhoids, referral to colorectal surgery Continue bowel regimen to prevent constipation COPD, chronic hypoxic respiratory failure At baseline Obstructive sleep apnea Continue BiPAP Chronic CHF diastolic type Volume status is stable Resumed Aldactone 12.5 mg daily Lasix 20 mg 3 days a week appreciate input from cardiology Diabetes type 2 Continue insulin sliding scale Home medications: Metformin/Glucophage Exar 500 mg daily-has been kept on hold, will be resumed on discharge Hypertension BP remains stable Patient is continued with metoprolol succinate 25 mg twice daily, Morbid obesity Counseling DVT prophylaxis Xarelto resumed Disposition Lives with family at home PT and OT evaluation discharge home with [place] health [facility] discussed with patient in detail and at length all questions answered she is agreeable, comfortable, understanding with the plan of care Subjective ff up for weakness seen resting in bed, comfortable watching TV states she feels much better overall reports mild dyspnea after taking Cefdinir, no rashes/pruritus/tongue swelling denies other symptoms states she is ready and would like to be discharged Review of Systems Review of Systems: All systems reviewed & are unremarkable except as noted in HPI & below Physical Exam Physical Exam: General- oriented x 3, not in distress, speaks in sentences with no effort or accessory muscle use Eyes- anicteric Neck- no JVD Lungs- clear breath sounds bilaterally, no rales/wheezes Heart- normal rate, regular rhythm; no murmurs Abdomen- normal bowel sounds, nondistended, soft, nontender Extremities- no pretibial edema, no calf tenderness Neuro- alert, oriented x 3; no gross focal neurologic deficits Skin- warm & dry Results & Data Vital Signs (Past 12 Hours) Vital Signs Temp Pulse Pulse Resp BP BP Pulse Ox 07/30/19 15:11 36.8 C 89 72 18 99/58 L 120/63 94 07/30/19 15:00 36.8 C 89 18 120/63 94 07/30/19 11:00 36.7 C 72 16 115/63 98
--- NOTE | 2019-08-02 19:49 | Discharge Summary ---
Date of Service August 02, 2019 Admission HPI Per Admitting Provider GENERAL: uncomfortable, anxious, obese, no respiratory distress SKIN: Normal color, warm HEENT: Pacific palpebral conjunctivae, no ptosis, dry buccal mucosa, nasal cannula in place NECK : Supple, short neck, no tenderness CHEST : Decreased breath sounds, no tenderness HEART : RRR, no obvious murmurs ABDOMEN: Some distention, nontender EXTREMITIES : minimal LE swelling, no LE tenderness, no other conspicuous de formities noted NEUROLOGIC : Coherent, no facial asymmetry, no other gross focality Admission Exam Per Admitting Provider GENERAL: uncomfortable, anxious, obese, no respiratory distress SKIN: Normal color, warm HEENT: [place] palpebral conjunctivae, no ptosis, dry buccal mucosa, nasal cannula in place NECK : Supple, short neck, no tenderness CHEST : Decreased breath sounds, no tenderness HEART : RRR, no obvious murmurs ABDOMEN: Some distention, nontender EXTREMITIES : minimal LE swelling, no LE tenderness, no other conspicuous deformities noted NEUROLOGIC : Coherent, no facial asymmetry, no other gross focality Principal Diagnosis Weakness, likely secondary to sotalol, UTI Discharge Exam General- oriented x 3, not in distress, speaks in sentences with no effort or accessory muscle use Eyes- anicteric Neck- no JVD Lungs- clear breath sounds bilaterally, no rales/wheezes Heart- normal rate, regular rhythm; no murmurs Abdomen- normal bowel sounds, nondistended, soft, nontender Extremities- no pretibial edema, no calf tenderness Neuro- alert, oriented x 3; no gross focal neurologic deficits Skin- warm & dry Discharge Data Allergies Allergy/AdvReac Type Severity Reaction Status Date / Time arformoterol Allergy Severe TACHYCARDIA Unverified 07/19/19 19:20 aspirin Allergy Severe HIVES, SOB Verified 07/19/19 19:20 ciprofloxacin Allergy Severe Unknown Verified 07/19/19 19:20 clarithromycin [From Biaxin] Allergy Severe Unknown Verified 07/19/19 19:20 egg Allergy Severe Unknown Verified 07/19/19 19:20 Iodinated Contrast Media Allergy Severe "CAUSED Verified 07/19/19 19:20 ASTHMA ATTACK" metaproterenol [From Alupent] Allergy Severe Unknown Verified 07/19/19 19:20 metformin [From Riomet] Allergy Severe Unknown Verified 07/19/19 19:20 milk Allergy Severe Unknown Verified 07/19/19 19:20 NSAIDS (Non-Steroidal Allergy Severe Hives Verified 07/19/19 19:20 Anti-Inflamma Penicillins Allergy Severe SOB, HIVES Verified 07/29/19 10:06 pioglitazone [From Actos] Allergy Severe Unknown Verified 07/19/19 19:20 Sulfa (Sulfonamide Allergy Severe Anaphylaxis Verified 07/19/19 19:20 Antibiotics) tiotropium Allergy Severe Unknown Verified 07/19/19 19:20 [From Spiriva with HandiHaler] wheat Allergy Severe Unknown Verified 07/19/19 19:20 aspartame Allergy Intermediate HIVES, Verified 07/19/19 19:20 ITCHY chlorhexidine Allergy Intermediate BLISTERY Verified 07/19/19 19:20 RASH ipratropium Allergy Mild SHORTNESS Verified 07/19/19 19:20 OF BREATH povidone Allergy Mild BLISTER Verified 07/19/19 19:20 WITH TAPE fish derived Allergy Unknown Unknown Verified 07/19/19 19:20 meperidine AdvReac Intermediate Gastrointestinal Verified 07/19/19 19:20 Upset morphine AdvReac Intermediate Gastrointestinal Verified 07/19/19 19:20 Upset adhesive AdvReac Mild BLISTERS Verified 07/19/19 19:20 WITH TAPE Consultations 07/19/19 21:30 ED Decision to Admit Stat 07/20/19 06:55 Consult Cardiology Routine 07/22/19 18:00 Consult Gastroenterology Routine 07/24/19 14:38 Consult General Surgery Routine SINGLE VIEW CHEST CLINICAL HISTORY: Generalized weakness. FINDINGS: An AP, portable, upright chest radiograph is compared to study dated 07/09/2019 and correlated with chest CT dated 12/02/2016. The examination is degraded by portable technique and apical lordotic positioning. The heart is top normal for projection. The mediastinal contour is within normal limits. The lungs appear hyperinflated. Numerous foci of parenchymal scarring are again seen bilaterally. No airspace consolidation or large pleural effusion is identified. No pneumothorax is seen. The skeletal structures are osteopenic. The bony thorax is grossly intact. IMPRESSION: Chronic parenchymal changes as above with no acute cardiopulmonary abnormality. Hospital Course (1) Weakness: PAROXYSMAL A [facility] Dressing Room Porter consulted, felt this is mainly from sotalol Changed to Tikosyn 250 mg twice a day Also added Toprol XL ,dose adjusted to 25 mg twice daily Continue on Xarelto for stroke prophylaxis -- patient tolerated medication changes well Weakness significantly improved Outpatient follow-up with cardiology Dr. Law Lower GI bleed/Acute blood loss anemia While Admitted, patient had intermittent painless bright red bleeding per rectum secondary to rectal prolapse, internal hemorrhoids Hemoglobin stable around 10 GI consulted Given rectal Anusol suppository twice daily Surgery consulted, patient will need outpatient colorectal surgery referral Recommends outpatient follow-up with colorectal surgery Anticoagulation with Xarelto resumed, no recurrence of hematochezia Avoid constipation UTI While admitted, patient reported burning sensation with urination/increased frequency Urine culture ordered: (+) Proteus, pansensitive Transitioned from Azactam to cefdinir p.o patient already received 4 days of antibiotic course which is sufficient for uncomplicated UTI CONSTIPATION appreciate input from GI /was given 1 dose of subcu Relistor with good result/ bowel movement Follow-up with GI service as an outpatient, may need sigmoidoscopy for internal hemorrhoids, referral to colorectal surgery ACUTE RENAL FAILURE Resolved, renal function at baseline cont to monitor BMP COPD, chronic hypoxic respiratory failure At baseline Obstructive sleep apnea Continue BiPAP Chronic CHF diastolic type Volume status is stable Resumed Aldactone 12.5 mg daily Lasix 20 mg 3 days a week Diabetes type 2 resume Metformin/Glucophage Exar 500 mg daily Hypertension BPstable Continue metoprolol succinate 25 mg twice daily Morbid obesity Counseling Disposition discharge home with home health [facility] Follow-up with PCP as outlined in discharge instructions plan of care discussed with patient in detail and at length all questions answered she is agreeable, comfortable, understanding with the plan of care Total Time Total Time Spent Total Time Spent (In Minutes): 45 minutes Discharge Plan Discharge Items Patient Disposition: Home - Home Health Services Reason For Visit: RESP FAILURE Discharge Diagnosis: WEAKNESS, LIKELY FROM SOTALOL Activity: As commented below Activity Comment: Activity as tolerated, no heavy exertion until reevaluated by primary care physician Lifting: Wait until after follow-up appointment Exercise/Sports: Wait until after follow-up appointment Driving/Machine Use: No driving until re-evaluated and allowed by primary care physician Non-emergency contact: Primary Care Provider Call non-emergency contact if: you have any medication questions, your symptoms worsen and you have a fever Follow-up/Referrals: Kacey Carpenter [Physician] - Zaid Law MD [Physician] - Mendez Swann MD [Primary Care Provider] - 08/03/19 12:55 pm Diet: Heart Healthy Addtl Attending Provider Instructions: Please review your new medication list and follow instructions carefully. Follow-up with Dr. Swann as outlined above. Follow-up with Dr. Law and Dr. Carpenter in 1 to 2 weeks. Call primary care physician or return to the ER immediately if with worsening of symptoms. Call your Primary Care doctor if any of the following symptoms or problems start or get worse: Shortness of breath or difficulty breathing Wake up at night short of breath Chest pain Cough Swelling of your hands, feet, or legs More fatigued or tired with your normal activity Palpitations - sudden fast heart beats WEIGHT Weigh yourself every morning after using the bathroom. Use the same scale. Wear the same amount of clothing. Write your weight down on a chart. Call your Primary Care doctor if you gain more than 2-3 pounds in 1-2 days. MEDICATIONS Use this discharge instruction sheet for medication instructions. Take your medications at the time your doctor ordered. Do not skip a dose of your medicines. If you miss a dose of medicine, take it as soon as possible, but DO NOT DOUBLE A DOSE. Read your medicine information when you get home. Know all of the side effects of your medicine. If in doubt, ask your pharmacist Call your Primary Care doctor's office if you have any side effects. Be sure all of your doctors know what medicine and herbs you take (including cold, flu, and herbal medicine). Take the following with you to your follow-up doctor appointments: Weight Chart Medication List List of questions Do not drink excessive alcohol, beer or wine. Who to Call and When: Call 911 or go to the Emergency Room if: If at any time you feel your situation is an emergency You have tightness or pain in your chest that does not go away with rest or Nitroglycerin You are very short of breath even with rest. Pending Studies at Discharge: No Stand-Alone Forms: My [facility] Medications and DC Order Prescriptions: New dofetilide [Tikosyn] 125 mcg Capsule 250 mcg PO BID 30 Days Qty: 120 RF: 0 metoprolol succinate 25 mg Tablet Extended Release 24 Hr 25 mg PO BID 30 Days Qty: 60 RF: 3 sennosides-docusate sodium [Senokot-S] 8.6-50 mg Tablet 2 tab PO HS 30 Days Qty: 0 RF: 0 hydrocortisone acetate [Anucort-HC] 25 mg Suppository 25 mg WI BID 30 Days Qty: 60 RF: 0 furosemide 20 mg Tablet 20 mg PO TuThSa@0900 30 Days Qty: 12 RF: 2 potassium chloride [Klor-Con M10] 10 mEq Tablet,Er Particles/Crystals 10 meq PO DAILY 30 Days Qty: 30 RF: 2 polyethylene glycol 3350 [Miralax] 17 gram Powder In Packet 17 g PO DAILY 30 Days Qty: 30 RF: 2 metformin [Glucophage XR] 500 mg tablet extended release 24 hr 500 mg PO DAILY 30 Days Qty: 30 RF: 2 Continued magnesium oxide [MagOx] 400 mg (241.3 mg magnesium) tablet 400 mg PO BID RF: 0 multivitamin with iron tablet 1 tab PO DAILY RF: 0 benzonatate [Tessalon Perles] 100 mg capsule 100 mg PO TID Qty: 1 RF: 0 levothyroxine 150 mcg capsule 150 mcg PO DAILY RF: 0 albuterol sulfate [Ventolin HFA] 90 mcg/actuation HFA aerosol inhaler 2 puff INHALATION Q6H PRN (Reason: Shortness Of Breath Or Wheezing) Qty: 3 RF: 1 cyclobenzaprine 10 mg Tablet 5 - 10 mg PO BID PRN (Reason: Muscle Spasm) RF: 0 albuterol sulfate 2.5 mg /3 mL (0.083 %) Solution For Nebulization 2.5 mg INHALATION Q4 PRN (Reason: Shortness Of Breath Or Wheezing) RF: 0 meclizine 25 mg Tablet 25 mg PO TID PRN (Reason: Dizziness) RF: 0 Premarin 0.625 mg/gram Cream 1 applic Topical MOWEFR RF: 0 oxycodone 10 mg Tablet 10 mg PO Q4 PRN (Reason: Pain) RF: 0 nystatin 100,000 unit/mL suspension 5 ml PO QID RF: 0 Xarelto 20 mg tablet 20 mg PO DAILY RF: 0 hydrocortisone acetate 1 % Cream 1 applic TOPICAL BID PRN (Reason: HEMMORIODS) RF: 0 Changed spironolactone 25 mg Tablet 12.5 mg PO DAILY Qty: 0 RF: 0 oxycodone [OxyContin] 60 mg Tablet Extended Release 12hr 30 mg PO Q12H Qty: 0 RF: 0 Discontinued sotalol [Betapace] 80 mg tablet 80 mg PO BID RF: 0 furosemide [Lasix] 40 mg Tablet 20 mg PO DAILY PRN (Reason: Fluid Retention) RF: 0 potassium chloride 10 mEq Tablet Extended Release 10 meq PO DAILY PRN (Reason: Other) RF: 0 Discharge Orders: Discharge Order (Routine); Ordered 07/30/19 Ordered By: Masood Rushing Admission Data Admit Date/Time: 07/19/19 22:30 Attending Provider: Masood Rushing Admit Provider: Jose R Strauss Primary Care Provider: Mendez Swann Other Providers: Masood Rushing ; Jose R Strauss ; Selvin Turner ; Kacey Carpenter ; Massimo Cantu ; Millicent Enamorado ; Selvin Whitten ; Cinthya Ariza ; Neel Garces ; Clarence Car ; Lexi Gonzalez ; Christian Villegas ; Brynn Pavon ; Morgan Cox Jr ; Tawana Pappas ; Syeda Lebron ; Maeve Robin ; Hospice,Family Other Interventions: Discharge Summary Assessment (RN) Last Done: 07/30/19 15:11 DC Date/Time DO NOT enter until pt leaves facility: 07/30/19 17:50
== END 2019-07-30 17:50 | disposition home health service (06) | DRG 683 ==
LOC: ED 18:08 → 2E 22:30 → SUATTDRO 22:30 → 2E 22:55 → 2N 07-28 15:40

== ENCOUNTER 2019-08-04 14:26 | Inpatient (IN) ==
--- NOTE | 2019-08-04 15:40 | XRay Report ---
XR chest 1V portable CLINICAL HISTORY: weakness COMPARISON STUDY: Chest radiograph July 19, 2019. FINDINGS: Lung volumes are normal. There is no pneumothorax or pleural effusion. Cardiomediastinal si lhouette is stable. There is mild enlargement of the cardiac silhouette. Opacity along the left heart border favors epicardial fat pad or atelectasis. There is left upper lobe scarring. No evidence for pulmonary edema. Appearance of the chest is unchanged. IMPRESSION: No acute cardiopulmonary findings. No change in appearance of the chest. Electronically signed by: Pascual Santoro M.D. 08/04/2019 3:39 PM
[2019-08-04 16:19] LABS: Basophils # (auto) 0.01 K/uL (0-0.2); Basophils % (auto) 0.3 %; Eosinophils # (auto) 0.06 K/uL (0-0.5); Eosinophils % (auto) 1.6 %; Hematocrit (blood only) 30.3 % (37-47); Hemoglobin 9.8 g/dL (12.0-16.0); Immature Granulocytes # (auto) 0.01 K/uL (0.00-0.02); Immature Granulocytes % (auto) 0.3 %; Lymphocytes # (auto) 0.77 K/uL (1.2-3.4); Lymphocytes % (auto) 20.6 %; Mean Corpuscular Hemoglobin 30.6 pg (25-34); Mean Corpuscular Hgb Conc 32.3 g/dL (32-36); Mean Corpuscular Volume 94.7 fL (80-100); Mean Platelet Volume 8.7 fL (7.4-10.4); Monocytes # (auto) 0.51 K/uL (0.11-0.59); Monocytes % (auto) 13.7 %; Neutrophils # (auto) 2.37 K/uL (1.4-6.5); Neutrophils % (auto) 63.5 %; Platelet Count 227 K/uL (130-400); White Blood Count 3.73 K/uL (4.8-10.8)
[2019-08-04 16:29] LABS: INR 1.1 (0.9-1.1); Prothrombin Time 11.5 Seconds (9.0-12.0)
[2019-08-04 16:38] LABS: Alanine Aminotransferase 17 U/L (12-78); Albumin Level 2.6 gm/dl (3.4-5.0); Aspartate Aminotransferase 10 U/L (15-37); BUN Creatinine Ratio 10.6 (10-20); Blood Urea Nitrogen 14 mg/dl (7-18); Calcium 8.7 mg/dl (8.5-10.1); Carbon Dioxide 34 mmol/L (21-32); Chloride 96 mmol/L (98-107); Est GFR (African American) 45.8; Est GFR (Non-African American) 39.5; Glucose 124 mg/dl (70-99); Magnesium 1.5 mg/dl (1.8-2.4); Potassium 4.3 mmol/L (3.5-5.1); Sodium 134 mmol/L (136-145)
[2019-08-04 16:48] LABS: Albumin Globulin Ratio 0.7 (0.9-2); Alkaline Phosphatase 61 U/L (45-117); Bilirubin,Total 0.3 mg/dl (0.2-1); Globulin 3.7 gm/dl (2.5-4.0); Phosphorus 3.7 mg/dl (2.5-4.9); Thyroid Stimulating Hormone 0.913 uIu/ml (0.300-4.500); Total Protein 6.3 gm/dl (6.4-8.2); Troponin I < 0.015 ng/ml (0-0.045)
[2019-08-04] MEDS ORDERED: FUROSEMIDE 20 MG in SYRINGE 0 ML IV ONE (17:08)
[2019-08-04] MEDS ORDERED: FUROSEMIDE 40 MG/4 ML VIAL IV ONE (18:11)
--- NOTE | 2019-08-04 19:13 | History & Physical Report ---
Date of Service August 04, 2019 Assessment & Plan (1) Dyspnea on exertion: (2) Palpitations: (3) Paroxysmal atrial fibrillation: -Admit to [facility] with telemetry -Patient presenting with dyspnea on exertion and palpitations; recent admission to [facility] 07/19 through 07/30 for generalized weakness, symptoms felt to be secondary to sotalol and therefore medications were changed to Tikosyn and metoprolol -In the ED, patient has remained in NSR; labs show mild hypomagnesemia but otherwise unremarkable -Continue to monitor in telemetry -Symptoms may be due to deconditioning from recent prolonged admission; rehab was offered however patient declined -Cardiology consult for any possible recommendations; patient was to be seen in cardiology clinic tomorrow -Anticoagulated on Xarelto, will continue -PT/OT, case management evaluations (4) Chronic diastolic CHF (congestive heart failure): (5) Cor pulmonale, chronic: -Patient appears euvolemic on exam however does have mild elevation in creatinine -Diuretics reduced during recent admission due to weakness/dizziness -will hold diuretics for now pending a.m. labs (6) CKD (chronic kidney disease), stage III: -Baseline creatinine ~1.0 -Up to 1.3 today -Hold morning diuretics pending a.m. labs (7) DM type 2 (diabetes mellitus, type 2): -Hgb A1c 8.5 07/2019 -Hold oral agents and utilize NovoLog per protocol while hospitalized (8) COPD (chronic obstructive pulmonary disease): -No signs of acute exacerbation, no wheezing on exam (9) Hypothyroidism: -Continue levothyroxine (10) DVT prophylaxis: -Anticoagulated on Xarelto History of Present Illness Chief Complaint: Palpitations, shortness of breath Primary Care Provider: Mendez Swann MD 74-year-old female who presents the ED for evaluation of palpitations and shortness of breath. Patient recently admitted to [facility] 07/19 through 07/30 for generalized weakness and paroxysmal atrial for ablation. Symptoms were felt to be secondary to sotalol use. Patient was evaluated by cardiology and patient was started on Tikosyn and metoprolol was added. Diuretics were also reduced. Patient reports that since returning home, she is having shortness of breath and palpitations with minimal exertion. She has a home heart rate monitor and pulse ox. Reports occasional readings of oxygen saturations in the 80s and heart rates in the 110s and irregular. Patient denies chest pain. Reports weights have been stable. She denies any lower extremity edema or orthopnea. She reports lightheadedness and dizziness however denies any syncopal event. Reports her appetite has been poor however denies nausea, vomiting, diarrhea, abdominal pain. No fevers or chills. She denies any urinary symptoms. Of note, patient reports that she was not able to participate in therapy while admitted due to medication she was receiving and testing being completed. She was offered rehab at discharge however patient declined. In the ED, patient's work-up is unremarkable. She has remained in NSR. She does not appear to be volume overloaded. When patient was ambulated, she became short of breath unable to speak in full sentences with minimal exertion. She was given Lasix 20 mg IV. Allergies Allergy/AdvReac Type Severity Reaction Status Date / Time arformoterol Allergy Severe TACHYCARDIA Unverified 08/04/19 16:35 aspirin Allergy Severe HIVES, SOB Verified 08/04/19 16:35 ciprofloxacin Allergy Severe Unknown Verified 08/04/19 16:35 clarithromycin [From Biaxin] Allergy Severe Unknown Verified 08/04/19 16:35 egg Allergy Severe Unknown Verified 08/04/19 16:35 Iodinated Contrast Media Allergy Severe "CAUSED Verified 08/04/19 16:35 ASTHMA ATTACK" metaproterenol [From Alupent] Allergy Severe Unknown Verified 08/04/19 16:35 metformin [From Riomet] Allergy Severe Unknown Verified 08/04/19 16:35 milk Allergy Severe Unknown Verified 08/04/19 16:35 NSAIDS (Non-Steroidal Allergy Severe Hives Verified 08/04/19 16:35 Anti-Inflamma Penicillins Allergy Severe SOB, HIVES Verified 08/04/19 16:35 pioglitazone [From Actos] Allergy Severe Unknown Verified 08/04/19 16:35 Sulfa (Sulfonamide Allergy Severe Anaphylaxis Verified 08/04/19 16:35 Antibiotics) tiotropium Allergy Severe Unknown Verified 08/04/19 16:35 [From Spiriva with HandiHaler] wheat Allergy Severe Unknown Verified 08/04/19 16:35 aspartame Allergy Intermediate HIVES, Verified 08/04/19 16:35 ITCHY chlorhexidine Allergy Intermediate BLISTERY Verified 08/04/19 16:35 RASH ipratropium Allergy Mild SHORTNESS Verified 08/04/19 16:35 OF BREATH povidone Allergy Mild BLISTER Verified 08/04/19 16:35 WITH TAPE fish derived Allergy Unknown Unknown Verified 08/04/19 16:35 meperidine AdvReac Intermediate Gastrointestinal Verified 08/04/19 16:35 Upset morphine AdvReac Intermediate Gastrointestinal Verified 08/04/19 16:35 Upset adhesive AdvReac Mild BLISTERS Verified 08/04/19 16:35 WITH TAPE Home Medications Home Medications Medication Instructions Recorded Confirmed Type Premarin 1 applic TOPICAL [id number] 07/24/18 08/04/19 History albuterol sulfate 2.5 mg INHALATION Q4H PRN 07/24/18 08/04/19 History cyclobenzaprine 5 - 10 mg PO BID PRN 07/24/18 08/04/19 History meclizine 25 mg PO TID PRN 07/24/18 08/04/19 History oxycodone 10 mg PO Q4H PRN 07/24/18 08/04/19 History albuterol sulfate HFA 90 2 puff INHALATION Q6H PRN #3 06/17/19 08/04/19 Rx mcg/actuation aerosol inhaler inhaler levothyroxine 150 mcg capsule 150 mcg PO QAM 06/17/19 08/04/19 History Xarelto 20 mg PO QPM 07/19/19 08/04/19 History hydrocortisone acetate 1 applic TOPICAL BID PRN 07/19/19 08/04/19 History dofetilide [Tikosyn] 250 mcg PO BID 30 Days #120 cap 07/28/19 08/04/19 Rx metoprolol succinate 25 mg PO BID 30 Days #60 tab 07/28/19 08/04/19 Rx sennosides-docusate sodium 2 tab PO HS 30 Days #0 tab 07/28/19 08/04/19 Rx [Senokot-S] furosemide 20 mg PO TuThSa@0900 30 Days #12 07/30/19 08/04/19 Rx tab oxycodone [OxyContin] 30 mg PO Q12H #0 tab 07/30/19 08/04/19 Rx docusate sodium [Colace] 100 mg PO DAILY 08/04/19 08/04/19 History hydrocortisone acetate [Anucort-HC] 25 mg IN BID PRN 08/04/19 08/04/19 History magnesium sulfate 200 mg PO BID 08/04/19 08/04/19 History metformin [Glucophage XR] 500 mg PO QAM 08/04/19 08/04/19 History potassium chloride [Klor-Con M10] 10 meq PO QAM 08/04/19 08/04/19 History spironolactone 12.5 mg PO HS 08/04/19 08/04/19 History Past Med/Surg History Medical History Chronic diastolic CHF (congestive heart failure) (Chronic) History of hysterectomy (Chronic) History of TIA (transient ischemic attack) (Chronic) Chronic anticoagulation (Chronic) Cor pulmonale, chronic (Chronic) ZEYAD (obstructive sleep apnea) (Chronic) Dyslipidemia (Chronic) Hypothyroidism (Chronic) CKD (chronic kidney disease), stage III (Chronic) Chronic respiratory failure with hypoxia (Chronic) DM type 2 (diabetes mellitus, type 2) (Chronic) COPD (chronic obstructive pulmonary disease) (Chronic) Paroxysmal atrial fibrillation (Chronic) Asthma (Chronic) Surgical History History of cholecystectomy (Chronic) History of cataract surgery (Chronic) History of appendectomy (Chronic) H/O arthroscopic knee surgery (Chronic) Family History Father Asthma Lung cancer Mother Diabetes Heart disease Brother Colon cancer Daughter Diabetes Brother Stroke Social History Preferred Language: [place] Communication Ability: Effective Musculoskeletal Physiotherapist Required: No Beliefs That Will Affect Care: None marital status: Current Living Situation: Family Current Living Situation Comment: lives with son Feels Safe at Home: Yes Safety Concerns: Feels Safe At This Time Smoking Status: Never smoker Second Hand Exposure: No ; Hx Alcohol Use: No Hx Substance Use: No Review of Systems Review of Systems: ROS per HPI, all other systems reviewed and negative Physical Exam Constitutional: WD/WN, vitals as above + obese Eyes: PERRL, conjunctivae normal, anicteric sclerae ENMT: external ear and nose normal, oropharynx normal Respiratory: normal respiratory effort, lungs clear to auscultation Cardiovascular: Rate/Rhythm: regular rate and regular rhythm Vessels: normal peripheral pulses Extremities: + edema (Trace edema BLE) Gastrointestinal (Abdomen): normal bowel sounds, soft, nontender, no hepatosplenomegaly Musculoskeletal: no cyanosis or clubbing, extremities motor strength 5/5 Skin: no rashes, warm and dry Neurologic: PERRL, EOMI, accommodation nl, no face palsy, no dysarthria Psychiatric: A+Ox3, euthymic affect Results & Data Vital Signs (Past 12 Hours) Vital Signs Temp Pulse Resp BP Pulse Ox 08/04/19 18:30 75 23 99 08/04/19 18:00 73 19 100 08/04/19 17:30 80 19 99 08/04/19 17:01 75 20 99 08/04/19 16:58 75 18 111/73 100 08/04/19 15:19 98 08/04/19 14:32 36.6 C 77 22 130/72 98 Laboratory Results Short CBC 08/04/19 Range/Units 15:59 WBC 3.73 L (4.8-10.8) K/uL Hgb 9.8 L (12.0-16.0) g/dL Hct 30.3 L (37-47) % Plt Count 227 (130-400) K/uL BMP 08/04/19 15:59 Sodium 134 L Potassium 4.3 Chloride 96 L Carbon Dioxide 34 H BUN 14 Creatinine 1.34 H Glucose 124 H Calcium 8.7 Cardiac Enzymes 08/04/19 Range/Units 15:59 Troponin I < 0.015 (0-0.045) ng/ml Liver Function 08/04/19 Range/Units 15:59 Total Bilirubin 0.3 (0.2-1) mg/dl AST 10 L (15-37) U/L ALT 17 (12-78) U/L Alkaline Phosphatase 61 (45-117) U/L Albumin 2.6 L (3.4-5.0) gm/dl Diagnostic Findings CXR IMPRESSION: No acute cardiopulmonary findings. No change in appearance of the chest. Code Status & VTE Plan Code Status Patient is a full code as per my discussion with him. VTE Prophylaxis Plan VTE Prophylaxis will be ordered: Yes Supervising Physician Co-Signing Physician Notes HISTORY: Record reviewed. Patient interviewed and examined. Care coordinated with ESTELA Aguillon. Please refer to her documentation for patient's history. Briefly, 74-year-old female with history of paroxysmal atrial fibrillation, CHF, COPD, CKD, and other problems. Recently hospitalized and cardiovascular medications were adjusted. Discharge to home on dofetilide, metoprolol succinate, and rivaroxaban for atrial fibrillation as well as furosemide 20 mg 3 times a week for CHF. Since returning home, she has been experiencing dyspnea and fatigue with minimal exertion. Experiencing palpitations, but no anginal symptoms. No fever or cough. Weight has been stable. EXAM: General- no distress Lungs- clear to auscultation; no respiratory distress Cardiovascular- RRR; no murmur appreciated; no gallop appreciated; neck veins difficult to assess; 1+ pretibial edema Abdomen- + bowel sounds, soft, nontender Extremities- no cyanosis; no calf tenderness Neuro- alert, oriented Skin- warm & dry DATA: Hemoglobin 9.8, white count 3730, platelet count 227,000. INR 1.1. Sodium 134, potassium 4.3, chloride 96, CO2 34, BUN 14, creatinine 1.34, glucose 124, magnesium 1.5, TSH 0.913. Other lab studies as noted. Chest x-ray reviewed by the undersigned and formally interpreted by Radiology. Cardiomegaly. No infiltrates, effusions, CHF. EKG performed at 1459 reviewed and demonstrated normal sinus rhythm at 80/ minute, incomplete right bundle branch block, no acute ST or T wave abnormalities. QTc = 474 msec. ASSESSMENT AND PLAN: Exertional dyspnea and fatigue. History of paroxysmal atrial fibrillation, CHF, COPD. Recent adjustment of cardiovascular medications. Does not appear to be volume overloaded. Experiencing palpitations with exertion. Monitor for arrhythmias. Consult Cardiology for reassessment of cardiac status and further recommendations. Poor functional status. PT/OT evaluations. Patient is not interested in skilled care or inpatient rehab. 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 Home health services for both should be optimized. Please refer to MIRYAM Dye's documentation for discussion of other issues. (1) COPD (chronic obstructive pulmonary disease) COPD type: unspecified COPD Qualified Code(s): J44.9 - Chronic obstructive pulmonary disease, unspecified
[2019-08-04] MEDS ORDERED: GLUCAGON FOR INJ 1 MG VIAL SQ PRN (20:15)
[2019-08-04] MEDS ORDERED: GLUCOSE 10 TABS/TUBE PO PRN (20:15)
[2019-08-04] MEDS ORDERED: CARBOHYDRATES FOR HYPOGLYCEMIA PO PRN (20:15)
[2019-08-04] MEDS ORDERED: DEXTROSE 50% 50 ML SYRINGE IV PRN (20:15)
[2019-08-04] MEDS ORDERED: GLUCOSE 40% GEL 15 GM TUBE PO PRN (20:15)
[2019-08-04] MEDS ORDERED: PROMETHAZINE HCL 12.5 MG in SODIUM CHLORIDE 0.9% 50 ML IV ONE (20:30)
--- NOTE | 2019-08-04 20:34 | Emergency Department Note ---
Entered by Ximena Flaherty acting as a scribe for Abdoulaye Lockwood MD History of Present Illness General Chief complaint: Arrhythmia/Palpitations Stated complaint: IRREGULAR HEARTBEAT, SOB WITH MOVEMENT Time Seen by Provider: 08/04/19 14:38 Source: patient Limitations: no limitations History of Present Illness Onset (ago): day(s) 5 Location: chest Pain Consistency: + other (worsening) Quality: + other (SOB) Associated symptoms: + loss of appetite and + nausea/vomiting; no cough and no fever/chills The patient is a 74 white female w/ PMHx COPD, SOB, hypoxia, DVT, and asthma who presents to the ED w/ CC of SOB beginning 5 days ago. She reports that she was discharged from this hospital on after admission for breathing difficulties and irregular heartbeat. The patient notes that she saw Dr. Swann today for increasing SOB and dyspnea, and she was referred here. She notes that the SOB has been worsening over the past 5 days. The patient reports that exertion worsens the SOB. The patient complains of nausea and decrease appetite. She denies any weight gain, increase in salt intake, lower extremity swelling, fever/chills, cough, and chest pain. The patient states that she was recently put on metoprolol and Tikosyn. She notes that she wears 3 L of oxygen NC at baseline. The patient denies any tobacco use. Home Medications Home Medications Medication Instructions Recorded Confirmed Type Premarin 1 applic TOPICAL [id number] 07/24/18 08/04/19 History albuterol sulfate 2.5 mg INHALATION Q4H PRN 07/24/18 08/04/19 History cyclobenzaprine 5 - 10 mg PO BID PRN 07/24/18 08/04/19 History meclizine 25 mg PO TID PRN 07/24/18 08/04/19 History oxycodone 10 mg PO Q4H PRN 07/24/18 08/04/19 History albuterol sulfate HFA 90 2 puff INHALATION Q6H PRN #3 06/17/19 08/04/19 Rx mcg/actuation aerosol inhaler inhaler levothyroxine 150 mcg capsule 150 mcg PO QAM 06/17/19 08/04/19 History Xarelto 20 mg PO QPM 07/19/19 08/04/19 History hydrocortisone acetate 1 applic TOPICAL BID PRN 07/19/19 08/04/19 History dofetilide [Tikosyn] 250 mcg PO BID 30 Days #120 cap 07/28/19 08/04/19 Rx metoprolol succinate 25 mg PO BID 30 Days #60 tab 07/28/19 08/04/19 Rx sennosides-docusate sodium 2 tab PO HS 30 Days #0 tab 07/28/19 08/04/19 Rx [Senokot-S] furosemide 20 mg PO TuThSa@0900 30 Days #12 07/30/19 08/04/19 Rx tab oxycodone [OxyContin] 30 mg PO Q12H #0 tab 07/30/19 08/04/19 Rx docusate sodium [Colace] 100 mg PO DAILY 08/04/19 08/04/19 History hydrocortisone acetate [Anucort-HC] 25 mg TX BID PRN 08/04/19 08/04/19 History magnesium sulfate 200 mg PO BID 08/04/19 08/04/19 History metformin [Glucophage XR] 500 mg PO QAM 08/04/19 08/04/19 History potassium chloride [Klor-Con M10] 10 meq PO QAM 08/04/19 08/04/19 History spironolactone 12.5 mg PO HS 08/04/19 08/04/19 History Allergies Allergy/AdvReac Type Severity Reaction Status Date / Time arformoterol Allergy Severe TACHYCARDIA Unverified 08/04/19 16:35 aspirin Allergy Severe HIVES, SOB Verified 08/04/19 16:35 ciprofloxacin Allergy Severe Unknown Verified 08/04/19 16:35 clarithromycin [From Biaxin] Allergy Severe Unknown Verified 08/04/19 16:35 egg Allergy Severe Unknown Verified 08/04/19 16:35 Iodinated Contrast Media Allergy Severe "CAUSED Verified 08/04/19 16:35 ASTHMA ATTACK" metaproterenol [From Alupent] Allergy Severe Unknown Verified 08/04/19 16:35 metformin [From Riomet] Allergy Severe Unknown Verified 08/04/19 16:35 milk Allergy Severe Unknown Verified 08/04/19 16:35 NSAIDS (Non-Steroidal Allergy Severe Hives Verified 08/04/19 16:35 Anti-Inflamma Penicillins Allergy Severe SOB, HIVES Verified 08/04/19 16:35 pioglitazone [From Actos] Allergy Severe Unknown Verified 08/04/19 16:35 Sulfa (Sulfonamide Allergy Severe Anaphylaxis Verified 08/04/19 16:35 Antibiotics) tiotropium Allergy Severe Unknown Verified 08/04/19 16:35 [From Spiriva with HandiHaler] wheat Allergy Severe Unknown Verified 08/04/19 16:35 aspartame Allergy Intermediate HIVES, Verified 08/04/19 16:35 ITCHY chlorhexidine Allergy Intermediate BLISTERY Verified 08/04/19 16:35 RASH ipratropium Allergy Mild SHORTNESS Verified 08/04/19 16:35 OF BREATH povidone Allergy Mild BLISTER Verified 08/04/19 16:35 WITH TAPE fish derived Allergy Unknown Unknown Verified 08/04/19 16:35 meperidine AdvReac Intermediate Gastrointestinal Verified 08/04/19 16:35 Upset morphine AdvReac Intermediate Gastrointestinal Verified 08/04/19 16:35 Upset adhesive AdvReac Mild BLISTERS Verified 08/04/19 16:35 WITH TAPE Past Med/Surg History Medical History Chronic diastolic CHF (congestive heart failure) (Chronic) History of hysterectomy (Chronic) History of TIA (transient ischemic attack) (Chronic) Chronic anticoagulation (Chronic) Cor pulmonale, chronic (Chronic) ZEYAD (obstructive sleep apnea) (Chronic) Dyslipidemia (Chronic) Hypothyroidism (Chronic) CKD (chronic kidney disease), stage III (Chronic) Chronic respiratory failure with hypoxia (Chronic) DM type 2 (diabetes mellitus, type 2) (Chronic) COPD (chronic obstructive pulmonary disease) (Chronic) Paroxysmal atrial fibrillation (Chronic) Asthma (Chronic) Surgical History History of cholecystectomy (Chronic) History of cataract surgery (Chronic) History of appendectomy (Chronic) H/O arthroscopic knee surgery (Chronic) Family History Father Asthma Lung cancer Mother Diabetes Heart disease Brother Colon cancer Daughter Diabetes Brother Stroke Social History Preferred Language: Mongolian Communication Ability: Effective Interactive Video Technician Required: No Beliefs That Will Affect Care: None marital status: Current Living Situation: Family Current Living Situation Comment: Lives with son Feels Safe at Home: Yes Smoking Status: Never smoker Second Hand Exposure: No ; Hx Alcohol Use: No Hx Substance Use: No Review of Systems See HPI for pertinent positives & negatives. and A total of 10 systems reviewed and were otherwise negative Physical Exam Vital Signs Vital Signs - 24 hr 08/04/19 14:32 08/04/19 15:19 08/04/19 16:58 Temperature 36.6 C Temperature Source Oral Sepsis Recent Fever Within 48 Hours No Sepsis New/Unexplained Change in Mental Status No Sepsis Action Taken by Nursing No Action Required Pulse Rate 77 75 Pulse Rate from SpO2 Sensor 76 Respiratory Rate 22 18 Respiratory Effort / Characteristics Non-Labored Respiratory Depth Normal Blood Pressure 130/72 111/73 Blood Pressure Mean 91 85 Pulse Oximetry 98 98 100 Oxygen Delivery Method Nasal Cannula Nasal Cannula Oxygen Flow Rate 3 3 08/04/19 17:01 08/04/19 17:30 08/04/19 18:00 Temperature Temperature Source Sepsis Recent Fever Within 48 Hours Sepsis New/Unexplained Change in Mental Status Sepsis Action Taken by Nursing Pulse Rate 75 80 73 Pulse Rate from SpO2 Sensor 74 81 73 Respiratory Rate 20 19 19 Respiratory Effort / Characteristics Respiratory Depth Blood Pressure Blood Pressure Mean Pulse Oximetry 99 99 100 Oxygen Delivery Method Oxygen Flow Rate GENERAL: Mild distress. NC in place. EYE EXAM: Normal conjunctiva. PERRL, no anisocoria and EOM's grossly intact w/o pain. OROPHARYNX: Moist mucous membranes. Grossly normal dentition. NECK: Supple, no nuchal rigidity, no adenopathy, non-tender. No signs of meningismus. LUNGS: Bibasilar crackles. Mild tachypnea. HEART: NSR, no MRG. ABDOMEN: Abdomen soft, non-tender, normo-active bowel sounds, no masses, no rebound or guarding. BACK: No CVA TTP. SKIN: No rashes and no bruising. UPPER EXTREMITIES: Upper extremities are grossly normal. LOWER EXTREMITIES: No pitting edema. No calf pain. Negative Homans sign. NEURO EXAM: A&O x3, cranial nerves II-XII grossly intact, normal speech, moves all 4 extremities on command w/o issue. Course 1453: The patient was evaluated in room C09. A complete history and physical exam was performed. 1602: I reevaluated the patient. 0: I spoke with SARA Aguillon, about the patients case. She will further evaluate the patient with Dr. Ralph, [facility] hospitalist. Administered Medications Discontinued Medications Furosemide (Lasix) Confirm Administered Dose 40 mg IV .STK-MED ONE Stop: 08/04/19 18:12 Last Admin: 08/04/19 18:13 Dose: Not Given [place]: [id number] Furosemide 20 mg/ Syringe 2 mls @ 4 mls/min IV ONE ONE Stop: 08/04/19 17:09 Last Admin: 08/04/19 18:13 Dose: 4 mls/min Documented by: [id number] Medical Decision Making Differential Diagnosis Etiologies such as infections, reactive airway disease, COPD, pneumonia, pleural effusion, pulmonary edema, ARDS, pneumothorax, CHF, cardiac ischemia, cardiac tamponade, dysrhythmia, anemia, pulmonary embolism, musculoskeletal, gastrointestinal process, as well as others were entertained. Medical Records Attestation: I reviewed the patient's medical records. Home Medications Current Medication List: was personally reviewed by me Laboratory Data Attestation: I reviewed the patient's lab results. Result diagrams: 08/04/19 15:59 08/04/19 15:59 Lab Results 08/04/19 08/04/19 08/04/19 Range/Units 15:59 15:59 15:59 WBC 3.73 L (4.8-10.8) K/uL RBC 3.20 L (4.2-5.4) M/uL Hgb 9.8 L (12.0-16.0) g/dL Hct 30.3 L (37-47) % MCV 94.7 (80-100) fL MCH 30.6 (25-34) pg MCHC 32.3 (32-36) g/dL RDW Std Deviation 52.0 H (36.4-46.3) fL RDW Coeff of Lawrence 15.0 H (11.5-14.5) % Plt Count 227 (130-400) K/uL MPV 8.7 (7.4-10.4) fL Immature Gran % (Auto) 0.3 % Neut % (Auto) 63.5 % Lymph % (Auto) 20.6 % Russell % (Auto) 13.7 % Eos % (Auto) 1.6 % Baso % (Auto) 0.3 % Immature Gran # (Auto) 0.01 (0.00-0.02) K/uL Neut # (Auto) 2.37 (1.4-6.5) K/uL Lymph # (Auto) 0.77 L (1.2-3.4) K/uL Russell # (Auto) 0.51 (0.11-0.59) K/uL Eos # (Auto) 0.06 (0-0.5) K/uL Baso # (Auto) 0.01 (0-0.2) K/uL PT 11.5 (9.0-12.0) Seconds INR 1.1 (0.9-1.1) Sodium 134 L (136-145) mmol/L Potassium 4.3 (3.5-5.1) mmol/L Chloride 96 L (98-107) mmol/L Carbon Dioxide 34 H (21-32) mmol/L Anion Gap 4.0 (3-11) BUN 14 (7-18) mg/dl Creatinine 1.34 H (0.6-1.2) mg/dl Est Cr Clr Drug Dosing Not Reportable Est GFR ( Amer) 45.8 Est GFR (Non-Af Amer) 39.5 BUN/Creatinine Ratio 10.6 (10-20) Glucose 124 H (70-99) mg/dl Calcium 8.7 (8.5-10.1) mg/dl Phosphorus 3.7 (2.5-4.9) mg/dl Magnesium 1.5 L (1.8-2.4) mg/dl Total Bilirubin 0.3 (0.2-1) mg/dl AST 10 L (15-37) U/L ALT 17 (12-78) U/L Alkaline Phosphatase 61 (45-117) U/L Troponin I < 0.015 (0-0.045) ng/ml Total Protein 6.3 L (6.4-8.2) gm/dl Albumin 2.6 L (3.4-5.0) gm/dl Globulin 3.7 (2.5-4.0) gm/dl Albumin/Globulin Ratio 0.7 L (0.9-2) TSH 0.913 (0.300-4.500) uIu/ml Imaging Data Radiologist's Impression: Radiology results as stated below per my review and the radiologist's interpretation: XR chest 1V portable CLINICAL HISTORY: weakness COMPARISON STUDY: Chest radiograph July 19, 2019. FINDINGS: Lung volumes are normal. There is no pneumothorax or pleural effusion. Cardiomediastinal silhouette is stable. There is mild enlargement of the cardiac silhouette. Opacity along the left heart border favors epicardial fat pad or atelectasis. There is left upper lobe scarring. No evidence for pulmonary edema. Appearance of the chest is unchanged. IMPRESSION: No acute cardiopulmonary findings. No change in appearance of the chest. Electronically signed by: Pascual Santoro M.D. 08/04/2019 3:39 PM ECG Data Attestation: I personally reviewed and interpreted this ECG as follows: Indication: SOB/dyspnea Rate (beats per minute): 79 Rhythm: sinus rhythm Findings: + other (normal interval, normal axis, incomplete RBBB, borderline prolonged QT) Blood Pressure Blood Pressure Findings: Elevated blood pressure Blood Pressure Disposition: further management by hospitalist LUZ Narrative The patient is a 74 white female w/ PMHx COPD, SOB, hypoxia, DVT, and asthma who presents to the ED w/ CC of SOB beginning 5 days ago. Patient was seen and evaluated the bedside. The patient was complaining of increasing dyspnea on exertion and associated palpitations. The patient did have a recent admission for which she was taken off of sotalol started on metoprolol anticus and. The patient denies any changes in weights or lower extremity swelling. The patient does have a known history of COPD as well as CHF. The patient denies any increase in salt in the diet. The patient is fairly clear breath sounds and does not appear necessarily to be volume overloaded. The patient does state that her palpitations occur every time that she is walking. Patient states she is been compliant with her medications. Patient did have blood work completed which shows chronic but stable anemia. Patient's chest x-ray appears unchanged from prior. Patient is currently in sinus. The patient is anticoagulated. The patient does have a slightly elevated creatinine. The patient does have a slightly low magnesium. Patient's troponin is undetectable. I did speak the on-call hospitalist and I did discuss with the ed case manager as well as the patient about the possibility of placement in rehab but do not believe the patient would be a good candidate and the patient would not be able to be evaluated by T PT or OT given the time of day. Patient was admitted to the medicine service. Impression & Plan BALBUENA (dyspnea on exertion), COPD (chronic obstructive pulmonary disease), Anemia, Leukopenia, Hypomagnesemia Discharge Plan Visit Data *Final* Discharge Date/Time: 08/04/19 18:54 Chief Complaint: Arrhythmia/Palpitations Stated Complaint: IRREGULAR HEARTBEAT, SOB WITH MOVEMENT ED Provider: Abdoulaye Lockwood Discharge Problem: BALBUENA (dyspnea on exertion), COPD (chronic obstructive pulmonary disease), Anemia, Leukopenia, Hypomagnesemia Patient Disposition: Admitted As Inpatient Discharge Instructions Interventions: ED Discharge Assessment Last Done: 08/04/19 18:54 Discharge Problem: COPD (chronic obstructive pulmonary disease) Qualifiers: COPD type: unspecified COPD Qualified Code(s): J44.9 - Chronic obstructive pulmonary disease, unspecified Anemia Qualifiers: Anemia type: unspecified type Qualified Code(s): D64.9 - Anemia, unspecified Leukopenia Qualifiers: Leukopenia type: unspecified Qualified Code(s): D72.819 - Decreased white blood cell count, unspecified The scribe's documentation has been prepared under my direction and personally reviewed by me in its entirety. I confirm that the note above accurately reflects all work, treatment, procedures, and medical decision making performed by me.
[2019-08-04] MEDS: METOPROLOL SUCC 25MG EXT REL TAB PO SCH (21:04)
[2019-08-04] MEDS: OXYCODONE HCL 15 MG TABCR (OXYCONTIN) PO SCH (21:11)
[2019-08-04] MEDS: DOFETILIDE 125 MCG CAPSULE PO SCH (21:11)
[2019-08-04] MEDS: MAGNESIUM OXIDE 400 MG TAB PO SCH (21:12)
[2019-08-04] MEDS: DOCUSATE SODIUM/SENNA 50/8.6MG TAB PO SCH (21:13)
[2019-08-04] MEDS: RIVAROXABAN 20 MG TAB PO SCH (21:13)
[2019-08-04] MEDS: MAGNESIUM SULFATE / D5W 1 GM/100 ML BAG IV SCH ×2 (21:22→22:42)
[2019-08-04] MEDS: INSULIN ASPART 100 UNITS/ML 3 ML PEN SC SCH (21:26)
[2019-08-05] MEDS: OXYCODONE HCL IR 5 MG TAB (IMMEDIATE RELEASE) PO PRN ×2 (00:37→15:45)
[2019-08-05] MEDS: ALBUTEROL 0.083% NEBU SOLN 3 ML VIAL INH PRN ×2 (02:14→16:01)
[2019-08-05] MEDS ORDERED: FLEXERIL HOME PACK 10 MG VIAL PO PRN (05:11)
[2019-08-05] MEDS: LEVOTHYROXINE SODIUM 150 MCG TABLET PO SCH (05:53)
[2019-08-05 06:14] LABS: Hematocrit (blood only) 28.8 % (37-47); Hemoglobin 9.3 g/dL (12.0-16.0); Mean Corpuscular Hemoglobin 30.3 pg (25-34); Mean Corpuscular Hgb Conc 32.3 g/dL (32-36); Mean Corpuscular Volume 93.8 fL (80-100); Mean Platelet Volume 8.5 fL (7.4-10.4); Platelet Count 213 K/uL (130-400); RDW Standard Deviation 51.3 fL (36.4-46.3); Red Blood Count 3.07 M/uL (4.2-5.4); White Blood Count 3.72 K/uL (4.8-10.8)
[2019-08-05 06:51] LABS: BUN Creatinine Ratio 12.7 (10-20); Calcium 8.9 mg/dl (8.5-10.1); Creatinine Clr Calc Pharmacy 69.2 ml/min; Est GFR (African American) 67.6; Est GFR (Non-African American) 58.3; Magnesium 1.9 mg/dl (1.8-2.4); Potassium 3.5 mmol/L (3.5-5.1)
[2019-08-05] MEDS: DOCUSATE SODIUM 100 MG CAP PO SCH (08:22)
[2019-08-05] MEDS: METOPROLOL SUCC 25MG EXT REL TAB PO SCH ×2 (08:22→19:55)
[2019-08-05] MEDS: MAGNESIUM OXIDE 400 MG TAB PO SCH ×2 (08:22→19:56)
[2019-08-05] MEDS: DOFETILIDE 125 MCG CAPSULE PO SCH ×2 (08:22→19:55)
[2019-08-05] MEDS: INSULIN ASPART 100 UNITS/ML 3 ML PEN SC SCH ×5 (08:25→20:40)
[2019-08-05] MEDS: OXYCODONE HCL 15 MG TABCR (OXYCONTIN) PO SCH ×2 (08:30→19:53)
--- NOTE | 2019-08-05 11:47 | Hospitalist Progress Note ---
Date of Service August 05, 2019 Assessment & Plan (1) Dyspnea on exertion: Presented with dyspnea on exertion, No evidence of cardiac decompensation, volume status stable Chronic advanced COPD on home O2 No evidence of COPD exacerbation, no hypoxia, no wheeze or cough Patient's presenting symptoms possibly likely secondary to deconditioning, recent prolonged hospital stay, Order for PT OT (2) Palpitations: No further symptoms, remains in sinus with rate controlled with Tikosyn Patient input from cardiology No further cardiac work-up needed, Okay to discontinue telemetry (3) Paroxysmal atrial fibrillation: - -Patient presenting with dyspnea on exertion and palpitations; recent admission No evidence of arrhythmia or tachycardia noted cont on Tikosyn and metoprolol -Symptoms may be due to deconditioning from recent prolonged admission; rehab was offered however patient declined -Cardiology consult appreciated, no change in medication needed -Anticoagulated on Xarelto, continued -PT/OT evaluation requested (4) Chronic diastolic CHF (congestive heart failure): Patient remains euvolemic, Continue outpatient diuretic regimen (5) Cor pulmonale, chronic: -Patient appears euvolemic on exam Outpatient diuretics: Aldactone 12.5 mg at bedtime/Lasix 20 mg x3 a week resumed (6) CKD (chronic kidney disease), stage III: -Baseline creatinine ~1.0 -Presented with acute renal failure: Creatinine 1.3 Diuretics was kept on hold on admission Acute renal failure/ATN resolved, creatinine 0.8 with normal volume status Aldactone 12.5 mg at bedtime resumed, Resumed Lasix 20 mg x3 a week - (7) DM type 2 (diabetes mellitus, type 2): -Hgb A1c 8.5 07/2019 -Hold oral agents and utilize NovoLog per protocol while hospitalized (8) COPD (chronic obstructive pulmonary disease): -No signs of acute exacerbation, no wheezing on exam (9) Hypothyroidism: -Continue levothyroxine (10) DVT prophylaxis: -Anticoagulated on Xarelto Disposition: PT OT evaluation requested Social service consulted for discharge planning Patient will benefit with rehab Subjective No complaint of orthopnea, no cough, no chest pain or palpitation No fever or chills Physical Exam Constitutional: + obese; no acute distress Eyes: PERRL, conjunctivae normal, anicteric sclerae ENMT: external ear and nose normal, oropharynx normal Neck: trachea midline, no thyromegaly Respiratory: no cough Auscultation: + diminished lung sounds; no wheezes Cardiovascular: Rate/Rhythm: regular rate and regular rhythm Gastrointestinal (Abdomen): Inspection/Auscultation: + abdomen distended and normal bowel sounds Percussion/Palpation: abdomen soft; abdomen nontender and no ascites Musculoskeletal: Head/Neck/Chest: normocephalic and head atraumatic Extremities: + abnormal strength (Generalized weakness) Neurologic: PERRL, EOMI, accommodation nl, no face palsy, no dysarthria Results & Data Vital Signs (Past 12 Hours) Vital Signs Temp Pulse Pulse Resp BP Pulse Ox 08/05/19 07:55 92 H 08/05/19 07:18 36.7 C 99 H 20 115/69 93 08/05/19 04:21 36.8 C 87 20 107/55 L 97 08/05/19 02:14 98 H 16 95 08/05/19 00:00 83 (1) COPD (chronic obstructive pulmonary disease) COPD type: unspecified COPD Qualified Code(s): J44.9 - Chronic obstructive pulmonary disease, unspecified
[2019-08-05] MEDS ORDERED: HYDROCORTISONE ACETATE 25 MG SUPP PR PRN (11:48)
[2019-08-05] MEDS: ACETAMINOPHEN 325 MG TAB PO PRN (12:29)
--- NOTE | 2019-08-05 12:47 | Cardiology Consultation ---
Date of Consultation August 05, 2019 Assessment & Plan (1) BALBUENA (dyspnea on exertion): The patient has remained in normal sinus rhythm and there are no objective findings of ischemia. I do not see any cardiac component to her dyspnea. She was counseled at great length that this is most likely due to deconditioning, morbid obesity, recent prolonged hospital stay, refusal of physical therapy and baseline in active lifestyle. No further cardiac testing or intervention is necessary at this time. She is to be maintained on her current doses of Tikosyn, metoprolol and Xarelto Okay to discharge the patient to home or to the medical floor from a cardiac standpoint. Would greatly encourage rehab (2) Palpitations: Due to cardiac awareness Rare PACs possibility No further medical treatment is necessary (3) Paroxysmal atrial fibrillation: Has remained in sinus we will continue current medications (4) Chronic diastolic CHF (congestive heart failure): She does not examine his volume overloaded and she will be maintained on her outpatient medical regimen History of Present Illness Reason for Consultation: sob Attending Physician: Maeve Robin MD History of Present Illness Mrs. Fierro is a 74-year-old woman who usually follows with Dr. Zaid Law of her cardiology practice. She presents to [facility] on 08/05/2019 after she was only discharged on 08/02/2019. She presented with complaints of increasing shortness of breath. She notes that since discharge she went home and attempted to take care of her demented as she normally does. She is been pushing him in a wheelchair, cooking and cleaning around the house and she notices with activity she feels more short of breath. She did have some concerns about her outpatient medications specifically citing that metoprolol has given her back spasms in the past. However she did discuss this with her primary community education coordinator and was excepting on continuing the metoprolol. She is been in normal sinus rhythm since discharge and she is been tolerating her Tikosyn and metoprolol well. Prior to discharge she declined outpatient physical therapy which had been deemed medically necessary. Allergies Allergy/AdvReac Type Severity Reaction Status Date / Time arformoterol Allergy Severe TACHYCARDIA Unverified 08/04/19 16:35 aspirin Allergy Severe HIVES, SOB Verified 08/04/19 16:35 ciprofloxacin Allergy Severe Unknown Verified 08/04/19 16:35 clarithromycin [From Biaxin] Allergy Severe Unknown Verified 08/04/19 16:35 egg Allergy Severe Unknown Verified 08/04/19 16:35 Iodinated Contrast Media Allergy Severe "CAUSED Verified 08/04/19 16:35 ASTHMA ATTACK" metaproterenol [From Alupent] Allergy Severe Unknown Verified 08/04/19 16:35 metformin [From Riomet] Allergy Severe Unknown Verified 08/04/19 16:35 milk Allergy Severe Unknown Verified 08/04/19 16:35 NSAIDS (Non-Steroidal Allergy Severe Hives Verified 08/04/19 16:35 Anti-Inflamma Penicillins Allergy Severe SOB, HIVES Verified 08/04/19 16:35 pioglitazone [From Actos] Allergy Severe Unknown Verified 08/04/19 16:35 Sulfa (Sulfonamide Allergy Severe Anaphylaxis Verified 08/04/19 16:35 Antibiotics) tiotropium Allergy Severe Unknown Verified 08/04/19 16:35 [From Spiriva with HandiHaler] wheat Allergy Severe Unknown Verified 08/04/19 16:35 aspartame Allergy Intermediate HIVES, Verified 08/04/19 16:35 ITCHY chlorhexidine Allergy Intermediate BLISTERY Verified 08/04/19 16:35 RASH ipratropium Allergy Mild SHORTNESS Verified 08/04/19 16:35 OF BREATH povidone Allergy Mild BLISTER Verified 08/04/19 16:35 WITH TAPE fish derived Allergy Unknown Unknown Verified 08/04/19 16:35 meperidine AdvReac Intermediate Gastrointestinal Verified 08/04/19 16:35 Upset morphine AdvReac Intermediate Gastrointestinal Verified 08/04/19 16:35 Upset adhesive AdvReac Mild BLISTERS Verified 08/04/19 16:35 WITH TAPE Home Medications Home Medications Medication Instructions Recorded Confirmed Type Premarin 1 applic TOPICAL [id number] 07/24/18 08/04/19 History albuterol sulfate 2.5 mg INHALATION Q4H PRN 07/24/18 08/04/19 History cyclobenzaprine 5 - 10 mg PO BID PRN 07/24/18 08/04/19 History meclizine 25 mg PO TID PRN 07/24/18 08/04/19 History oxycodone 10 mg PO Q4H PRN 07/24/18 08/04/19 History albuterol sulfate HFA 90 2 puff INHALATION Q6H PRN #3 06/17/19 08/04/19 Rx mcg/actuation aerosol inhaler inhaler levothyroxine 150 mcg capsule 150 mcg PO QAM 06/17/19 08/04/19 History Xarelto 20 mg PO QPM 07/19/19 08/04/19 History hydrocortisone acetate 1 applic TOPICAL BID PRN 07/19/19 08/04/19 History dofetilide [Tikosyn] 250 mcg PO BID 30 Days #120 cap 07/28/19 08/04/19 Rx metoprolol succinate 25 mg PO BID 30 Days #60 tab 07/28/19 08/04/19 Rx sennosides-docusate sodium 2 tab PO HS 30 Days #0 tab 07/28/19 08/04/19 Rx [Senokot-S] furosemide 20 mg PO TuThSa@0900 30 Days #12 07/30/19 08/04/19 Rx tab oxycodone [OxyContin] 30 mg PO Q12H #0 tab 07/30/19 08/04/19 Rx docusate sodium [Colace] 100 mg PO DAILY 08/04/19 08/04/19 History hydrocortisone acetate [Anucort-HC] [address] BID PRN 08/04/19 08/04/19 History magnesium sulfate 200 mg PO BID 08/04/19 08/04/19 History metformin [Glucophage XR] 500 mg PO QAM 08/04/19 08/04/19 History potassium chloride [Klor-Con M10] 10 meq PO QAM 08/04/19 08/04/19 History spironolactone 12.5 mg PO HS 08/04/19 08/04/19 History Patient History Medical History Chronic diastolic CHF (congestive heart failure) (Chronic) History of hysterectomy (Chronic) History of TIA (transient ischemic attack) (Chronic) Chronic anticoagulation (Chronic) Cor pulmonale, chronic (Chronic) ZEYAD (obstructive sleep apnea) (Chronic) Dyslipidemia (Chronic) Hypothyroidism (Chronic) CKD (chronic kidney disease), stage III (Chronic) Chronic respiratory failure with hypoxia (Chronic) DM type 2 (diabetes mellitus, type 2) (Chronic) COPD (chronic obstructive pulmonary disease) (Chronic) Paroxysmal atrial fibrillation (Chronic) Asthma (Chronic) Surgical History History of cholecystectomy (Chronic) History of cataract surgery (Chronic) History of appendectomy (Chronic) H/O arthroscopic knee surgery (Chronic) Family History Father Asthma Lung cancer Mother Diabetes Heart disease Brother Colon cancer Daughter Diabetes Brother Stroke Social History Preferred Language: [place] 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 No acute distress. HEENT: Normocephalic, atraumatic. Pupils equal, round and reactive to light and accommodation. Extraocular muscles are intact. Anicteric sclera. Moist mucous membranes. Neck: No JVD. No bruit. Cardiovascular: Regular. Positive S-4. Normal S-1 and S-2. No S-3. No murmurs or rubs. Pulmonary: Poor air movement but clear to auscultation B/L. No rales, rhonchi or wheezing Abdomen: Bowel sounds x 4, soft. No rebound, guarding or tenderness. No organomegaly. Extremities: No clubbing, cyanosis or edema. +2 pedal pulses bilaterally. Skin: Warm and dry. Results & Data Vital Signs (Past 12 Hours) Vital Signs Temp Pulse Pulse Resp BP Pulse Ox 08/05/19 12:13 36.7 C 82 17 120/72 97 08/05/19 07:55 92 H 08/05/19 07:18 36.7 C 99 H 20 115/69 93 08/05/19 04:21 36.8 C 87 20 107/55 L 97 08/05/19 02:14 98 H 16 95
[2019-08-05] MEDS: PREMARIN VAG CRM 14 APPLN/30 GM TUBE PV SCH (14:18)
[2019-08-05] MEDS: SPIRONOLACTONE 25 MG TAB PO SCH (19:53)
[2019-08-05] MEDS: RIVAROXABAN 20 MG TAB PO SCH (19:54)
[2019-08-05] MEDS: DOCUSATE SODIUM/SENNA 50/8.6MG TAB PO SCH (19:56)
[2019-08-06] MEDS: ACETAMINOPHEN 325 MG TAB PO PRN ×2 (01:51→23:46)
[2019-08-06] MEDS: LEVOTHYROXINE SODIUM 150 MCG TABLET PO SCH (06:01)
[2019-08-06] MEDS: ALBUTEROL 0.083% NEBU SOLN 3 ML VIAL INH PRN (07:28)
[2019-08-06] MEDS: MAGNESIUM OXIDE 400 MG TAB PO SCH ×2 (08:19→20:28)
[2019-08-06] MEDS: FUROSEMIDE 20 MG TAB PO SCH (08:20)
[2019-08-06] MEDS: DOFETILIDE 125 MCG CAPSULE PO SCH ×2 (08:20→20:30)
[2019-08-06] MEDS: METOPROLOL SUCC 25MG EXT REL TAB PO SCH ×2 (08:20→20:32)
[2019-08-06] MEDS: DOCUSATE SODIUM 100 MG CAP PO SCH (08:21)
[2019-08-06] MEDS: INSULIN ASPART 100 UNITS/ML 3 ML PEN SC SCH ×4 (08:23→20:33)
[2019-08-06] MEDS: OXYCODONE HCL 15 MG TABCR (OXYCONTIN) PO SCH ×2 (08:27→20:40)
[2019-08-06 10:48] LABS: Hematocrit (blood only) 31.5 % (37-47); Hemoglobin 10.2 g/dL (12.0-16.0)
[2019-08-06] MEDS: OXYCODONE HCL IR 5 MG TAB (IMMEDIATE RELEASE) PO PRN (11:22)
--- NOTE | 2019-08-06 11:39 | Hospitalist Progress Note ---
Date of Service August 06, 2019 Assessment & Plan (1) Dyspnea on exertion: Presented with dyspnea on exertion, No evidence of cardiac decompensation, volume status stable Chronic advanced COPD on home O2 No evidence of COPD exacerbation, no hypoxia, no wheeze or cough Patient's presenting symptoms possibly likely secondary to deconditioning, recent prolonged hospital stay, PT OT evaluation requested, appreciate input During physical therapy patient's overall endurance noted to be very poor resulting in shortness of breath/dyspnea on exertion Recommends short-term rehab Referral made to skilled facility at [facility] (2) Palpitations: She reports of subjective feeling of palpitation, acid with increased dyspnea on exertion, No further symptoms, remains in sinus with rate controlled with Tikosyn/arrhythmia noted in telemetry Patient input from cardiology No further cardiac work-up needed, (3) Paroxysmal atrial fibrillation: - She remains in sinus rhythm with rate controlled with Tikosyn and metoprolol Appreciate cardiology inputs, -Symptoms may be due to deconditioning from recent prolonged admission; rehab was offered however patient declined -Cardiology consult appreciated, no change in medication needed -Anticoagulated on Xarelto, continued -PT/OT evaluation requested: Recommend short-term rehab (4) Chronic diastolic CHF (congestive heart failure): Patient remains euvolemic, Continue outpatient diuretic regimen (5) Cor pulmonale, chronic: -Patient appears euvolemic on exam Outpatient diuretics: Aldactone 12.5 mg at bedtime/Lasix 20 mg x3 a week resumed (6) CKD (chronic kidney disease), stage III: -Baseline creatinine ~1.0 -Presented with acute renal failure: Creatinine 1.3 Diuretics was kept on hold on admission Acute renal failure/ATN resolved, creatinine 0.8 with normal volume status Aldactone 12.5 mg at bedtime resumed, Resumed Lasix 20 mg x3 a week - (7) DM type 2 (diabetes mellitus, type 2): -Hgb A1c 8.5 07/2019 -Hold oral agents and utilize NovoLog per protocol while hospitalized (8) COPD (chronic obstructive pulmonary disease): -No signs of acute exacerbation, no wheezing on exam Anemia History of chronic anemia with intermittent lower GI bleed secondary to internal hemorrhoids, rectal prolapse H&H remained stable Patient will need outpatient follow-up with colorectal surgery (9) Hypothyroidism: -Continue levothyroxine (10) DVT prophylaxis: -Anticoagulated on Xarelto Disposition: PT OT evaluation requested appreciate input Social service consulted for discharge planning Patient will benefit with rehab referral [facility] Subjective Patient reports of feeling a little bit better than before, Walked with physical therapy for approximately 100 feet, had to stop multiple times due to dyspnea on exertion, No palpitation, no chest pain, no cough No fever or chills, Feels energy has improved a little better but still off from baseline Review of Systems Review of Systems: All systems reviewed & are unremarkable except as noted in HPI & below Physical Exam Constitutional: + obese; no acute distress Eyes: PERRL, conjunctivae normal, anicteric sclerae ENMT: external ear and nose normal, oropharynx normal Neck: trachea midline, no thyromegaly Respiratory: no cough Auscultation: + diminished lung sounds; no wheezes Cardiovascular: Rate/Rhythm: regular rate and regular rhythm Gastrointestinal (Abdomen): Inspection/Auscultation: + abdomen distended and normal bowel sounds Percussion/Palpation: abdomen soft; abdomen nontender and no ascites Musculoskeletal: Head/Neck/Chest: normocephalic and head atraumatic Extremities: + abnormal strength (Generalized weakness) Neurologic: PERRL, EOMI, accommodation nl, no face palsy, no dysarthria Results & Data Vital Signs (Past 12 Hours) Vital Signs Pulse Resp BP Pulse Ox 08/06/19 07:28 78 18 98 08/06/19 07:00 78 18 126/78 97 (1) COPD (chronic obstructive pulmonary disease) COPD type: unspecified COPD Qualified Code(s): J44.9 - Chronic obstructive pulmonary disease, unspecified
[2019-08-06] MEDS ORDERED: LEVALBUTEROL TARTRATE 15 GM HFA.AER.AD INH PRN (14:54)
[2019-08-06] MEDS: SPIRONOLACTONE 25 MG TAB PO SCH (20:28)
[2019-08-06] MEDS: RIVAROXABAN 20 MG TAB PO SCH (20:30)
[2019-08-06] MEDS: DOCUSATE SODIUM/SENNA 50/8.6MG TAB PO SCH (20:30)
[2019-08-07] MEDS: LEVOTHYROXINE SODIUM 150 MCG TABLET PO SCH (06:32)
[2019-08-07] MEDS: ACETAMINOPHEN 325 MG TAB PO PRN (06:32)
[2019-08-07] MEDS: OXYCODONE HCL 15 MG TABCR (OXYCONTIN) PO SCH ×2 (07:49→21:21)
[2019-08-07] MEDS: METOPROLOL SUCC 25MG EXT REL TAB PO SCH ×2 (07:50→21:22)
[2019-08-07] MEDS: MAGNESIUM OXIDE 400 MG TAB PO SCH ×2 (07:50→21:24)
[2019-08-07] MEDS: DOFETILIDE 125 MCG CAPSULE PO SCH ×2 (07:53→21:24)
[2019-08-07] MEDS: DOCUSATE SODIUM 100 MG CAP PO SCH (07:54)
[2019-08-07] MEDS: PREMARIN VAG CRM 14 APPLN/30 GM TUBE PV SCH (07:54)
[2019-08-07] MEDS: INSULIN ASPART 100 UNITS/ML 3 ML PEN SC SCH ×4 (08:18→21:26)
[2019-08-07] MEDS: OXYCODONE HCL IR 5 MG TAB (IMMEDIATE RELEASE) PO PRN (16:02)
--- NOTE | 2019-08-07 17:32 | Hospitalist Progress Note ---
Date of Service August 07, 2019 Assessment & Plan (1) Dyspnea on exertion: Symptoms gradually improving Presented with dyspnea on exertion, No evidence of cardiac decompensation, volume status stable Chronic advanced COPD on home O2 No evidence of COPD exacerbation, no hypoxia, no wheeze or cough Patient's presenting symptoms possibly likely secondary to deconditioning, recent prolonged hospital stay, PT OT evaluation requested, appreciate input During physical therapy patient's overall endurance noted to be very poor resulting in shortness of breath/dyspnea on exertion Recommends short-term rehab Referral made to skilled facility at [facility]-does not have any beds available Discussed with patient, very reluctant to go to skilled rehab, feels her overall energy and endurance has improved since admission, prefers to return home with home health home PT (2) Palpitations: She reports of subjective feeling of palpitation, acid with increased dyspnea on exertion, No further symptoms, remains in sinus with rate controlled with Tikosyn/arrhythmia noted in telemetry Patient input from cardiology No further cardiac work-up needed, (3) Paroxysmal atrial fibrillation: - She remains in sinus rhythm with rate controlled with Tikosyn and metoprolol Appreciate cardiology inputs, -Symptoms may be due to deconditioning from recent prolonged admission; rehab was offered however patient declined -Cardiology consult appreciated, no change in medication needed -Anticoagulated on Xarelto, continued -PT/OT evaluation requested: Recommend short-term rehab She is still reluctant to go to short-term rehab, Was to see how she feels over the weekend, Prefers to return back home with home health home PT on early next week (4) Chronic diastolic CHF (congestive heart failure): Patient remains euvolemic, Continue outpatient diuretic regimen (5) Cor pulmonale, chronic: -Patient appears euvolemic on exam Outpatient diuretics: Aldactone 12.5 mg at bedtime/Lasix 20 mg x3 a week resumed (6) CKD (chronic kidney disease), stage III: -Baseline creatinine ~1.0 -Presented with acute renal failure: Creatinine 1.3 Diuretics was kept on hold on admission Acute renal failure/ATN resolved, creatinine 0.8 with normal volume status Aldactone 12.5 mg at bedtime resumed, Resumed Lasix 20 mg x3 a week - (7) DM type 2 (diabetes mellitus, type 2): -Hgb A1c 8.5 07/2019 -Hold oral agents and utilize NovoLog per protocol while hospitalized (8) COPD (chronic obstructive pulmonary disease): -No signs of acute exacerbation, no wheezing on exam Anemia History of chronic anemia with intermittent lower GI bleed secondary to internal hemorrhoids, rectal prolapse H&H remained stable Patient will need outpatient follow-up with colorectal surgery (9) Hypothyroidism: -Continue levothyroxine (10) DVT prophylaxis: -Anticoagulated on Xarelto Disposition: PT OT evaluation requested appreciate input Social service consulted for discharge planning Patient still considering returning home with home health home PT, Continue PT OT while inpatient, patient is encouraged to be out of bed, ambulate as tolerated to increase endurance Subjective Patient found sitting on chair, reports of feeling a little bit better, minimum shortness of breath, dyspnea on exertion Does not have any cough no palpitation no fever chills Physical Exam Constitutional: + obese; no acute distress Eyes: PERRL, conjunctivae normal, anicteric sclerae ENMT: external ear and nose normal, oropharynx normal Neck: trachea midline, no thyromegaly Respiratory: no cough Auscultation: + diminished lung sounds; no wheezes Cardiovascular: Rate/Rhythm: regular rate and regular rhythm Gastrointestinal (Abdomen): Inspection/Auscultation: + abdomen distended and normal bowel sounds Percussion/Palpation: abdomen soft; abdomen nontender and no ascites Musculoskeletal: Head/Neck/Chest: normocephalic and head atraumatic Extremities: + abnormal strength (Generalized weakness) Neurologic: PERRL, EOMI, accommodation nl, no face palsy, no dysarthria Results & Data Vital Signs (Past 12 Hours) Vital Signs Temp Pulse Resp BP Pulse Ox 08/07/19 15:12 36.8 C 80 18 122/78 98 08/07/19 07:35 36.8 C 68 16 98/61 L 99 (1) COPD (chronic obstructive pulmonary disease) COPD type: unspecified COPD Qualified Code(s): J44.9 - Chronic obstructive pulmonary disease, unspecified
[2019-08-07] MEDS: DOCUSATE SODIUM/SENNA 50/8.6MG TAB PO SCH (21:23)
[2019-08-07] MEDS: RIVAROXABAN 20 MG TAB PO SCH (21:24)
[2019-08-07] MEDS: SPIRONOLACTONE 25 MG TAB PO SCH (21:25)
[2019-08-08] MEDS: LEVOTHYROXINE SODIUM 150 MCG TABLET PO SCH (05:45)
[2019-08-08] MEDS: OXYCODONE HCL IR 5 MG TAB (IMMEDIATE RELEASE) PO PRN (06:01)
[2019-08-08] MEDS: INSULIN ASPART 100 UNITS/ML 3 ML PEN SC SCH ×4 (08:33→21:46)
[2019-08-08] MEDS: METOPROLOL SUCC 25MG EXT REL TAB PO SCH ×2 (08:34→21:49)
[2019-08-08] MEDS: DOCUSATE SODIUM 100 MG CAP PO SCH (08:34)
[2019-08-08] MEDS: DOFETILIDE 125 MCG CAPSULE PO SCH ×2 (08:34→21:48)
[2019-08-08] MEDS: MAGNESIUM OXIDE 400 MG TAB PO SCH ×2 (08:34→21:48)
[2019-08-08] MEDS: OXYCODONE HCL 15 MG TABCR (OXYCONTIN) PO SCH ×2 (08:34→21:45)
[2019-08-08] MEDS: FUROSEMIDE 20 MG TAB PO SCH (08:34)
[2019-08-08] MEDS: ALBUTEROL 0.083% NEBU SOLN 3 ML VIAL INH PRN (13:11)
[2019-08-08] MEDS: ACETAMINOPHEN 325 MG TAB PO PRN (14:18)
--- NOTE | 2019-08-08 15:37 | Hospitalist Progress Note ---
Date of Service August 08, 2019 Assessment & Plan (1) Dyspnea on exertion: Symptoms continues to improve Patient does not want to go to rehab, Wants to return back to home possibly early next week as her generalized weakness improves Presented with dyspnea on exertion, No evidence of cardiac decompensation, volume status stable Chronic advanced COPD on home O2 No evidence of COPD exacerbation, no hypoxia, no wheeze or cough Patient's presenting symptoms possibly likely secondary to deconditioning, recent prolonged hospital stay, PT OT evaluation requested, appreciate input During physical therapy patient's overall endurance noted to be very poor resulting in shortness of breath/dyspnea on exertion Recommends short-term rehab Referral made to skilled facility at [facility]-does not have any beds available Discussed with patient, very reluctant to go to skilled rehab, feels her overall energy and endurance has improved since admission, prefers to return home with home health home PT (2) Palpitations: She reports of subjective feeling of palpitation, acid with increased dyspnea on exertion, No further symptoms, remains in sinus with rate controlled with Tikosyn/arrhythmia noted in telemetry Patient input from cardiology No further cardiac work-up needed, (3) Paroxysmal atrial fibrillation: - She remains in sinus rhythm with rate controlled with Tikosyn and metoprolol Appreciate cardiology inputs, -Symptoms may be due to deconditioning from recent prolonged admission; rehab was offered however patient declined -Cardiology consult appreciated, no change in medication needed -Anticoagulated on Xarelto, continued -PT/OT evaluation requested: Recommend short-term rehab She is still reluctant to go to short-term rehab, Was to see how she feels over the weekend, Prefers to return back home with home health home PT on early next week (4) Chronic diastolic CHF (congestive heart failure): Patient remains euvolemic, Continue outpatient diuretic regimen (5) Cor pulmonale, chronic: -Patient appears euvolemic on exam Outpatient diuretics: Aldactone 12.5 mg at bedtime/Lasix 20 mg x3 a week resumed (6) CKD (chronic kidney disease), stage III: -Baseline creatinine ~1.0 -Presented with acute renal failure: Creatinine 1.3 Diuretics was kept on hold on admission Acute renal failure/ATN resolved, creatinine 0.8 with normal volume status Aldactone 12.5 mg at bedtime resumed, Resumed Lasix 20 mg x3 a week - (7) DM type 2 (diabetes mellitus, type 2): -Hgb A1c 8.5 07/2019 -Hold oral agents and utilize NovoLog per protocol while hospitalized (8) COPD (chronic obstructive pulmonary disease): -No signs of acute exacerbation, no wheezing on exam Anemia History of chronic anemia with intermittent lower GI bleed secondary to internal hemorrhoids, rectal prolapse H&H remained stable Patient will need outpatient follow-up with colorectal surgery (9) Hypothyroidism: -Continue levothyroxine (10) DVT prophylaxis: -Anticoagulated on Xarelto Disposition: PT OT evaluation requested appreciate input Social service consulted for discharge planning Patient still considering returning home with home health home PT, Continue PT OT while inpatient, patient is encouraged to be out of bed, ambulate as tolerated to increase endurance Subjective Does not have any new complaint, no cough, no shortness of breath at rest Complains of intermittent dyspnea on exertion, which has been improving grad ually, No cough no fever or chills, no increased lower extremity edema Physical Exam Constitutional: + obese; no acute distress Eyes: PERRL, conjunctivae normal, anicteric sclerae ENMT: external ear and nose normal, oropharynx normal Neck: trachea midline, no thyromegaly Respiratory: no cough Auscultation: + diminished lung sounds; no wheezes Cardiovascular: Rate/Rhythm: regular rate and regular rhythm Gastrointestinal (Abdomen): Inspection/Auscultation: + abdomen distended and normal bowel sounds Percussion/Palpation: abdomen soft; abdomen nontender and no ascites Musculoskeletal: Head/Neck/Chest: normocephalic and head atraumatic Extremities: + abnormal strength (Generalized weakness) Neurologic: PERRL, EOMI, accommodation nl, no face palsy, no dysarthria Results & Data Vital Signs (Past 12 Hours) Vital Signs Temp Pulse Resp BP Pulse Ox 08/08/19 13:13 78 18 98 08/08/19 07:44 36.6 C 84 16 102/61 98 (1) COPD (chronic obstructive pulmonary disease) COPD type: unspecified COPD Qualified Code(s): J44.9 - Chronic obstructive pulmonary disease, unspecified
[2019-08-08] MEDS: POLYETHYLENE (MIRALAX) 17 GM PACK PO PRN (21:45)
[2019-08-08] MEDS: SPIRONOLACTONE 25 MG TAB PO SCH (21:47)
[2019-08-08] MEDS: RIVAROXABAN 20 MG TAB PO SCH (21:47)
[2019-08-08] MEDS: DOCUSATE SODIUM/SENNA 50/8.6MG TAB PO SCH (21:48)
[2019-08-09] MEDS: LEVOTHYROXINE SODIUM 150 MCG TABLET PO SCH (05:49)
[2019-08-09] MEDS: OXYCODONE HCL IR 5 MG TAB (IMMEDIATE RELEASE) PO PRN ×2 (05:51→22:34)
[2019-08-09] MEDS: MAGNESIUM OXIDE 400 MG TAB PO SCH ×2 (08:18→21:04)
[2019-08-09] MEDS: DOFETILIDE 125 MCG CAPSULE PO SCH ×2 (08:18→21:04)
[2019-08-09] MEDS: METOPROLOL SUCC 25MG EXT REL TAB PO SCH ×2 (08:18→21:06)
[2019-08-09] MEDS: DOCUSATE SODIUM 100 MG CAP PO SCH (08:19)
[2019-08-09] MEDS: OXYCODONE HCL 15 MG TABCR (OXYCONTIN) PO SCH ×2 (08:21→21:00)
[2019-08-09] MEDS: INSULIN ASPART 100 UNITS/ML 3 ML PEN SC SCH ×4 (08:22→21:05)
--- NOTE | 2019-08-09 16:17 | Hospitalist Progress Note ---
Date of Service August 09, 2019 Assessment & Plan (1) Dyspnea on exertion: Clinically appears to be much improved over the weekend, has minimum shortness of breath, improvement of the knee, able to do her ADLs, with minimum assistance from the nursing With PT OT evaluation will be done tomorrow If patient's functional status improved to approximate baseline, plan to discharge home with home health home PT Symptoms continues to improve Patient does not want to go to rehab, Wants to return back to home possibly early next week as her generalized weakness improves Presented with dyspnea on exertion, No evidence of cardiac decompensation, volume status stable Chronic advanced COPD on home O2 No evidence of COPD exacerbation, no hypoxia, no wheeze or cough Patient's presenting symptoms possibly likely secondary to deconditioning, recent prolonged hospital stay, PT OT evaluation requested, appreciate input During physical therapy patient's overall endurance noted to be very poor resulting in shortness of breath/dyspnea on exertion Recommends short-term rehab Referral made to skilled facility at [facility]-does not have any beds available Discussed with patient, very reluctant to go to skilled rehab, feels her overall energy and endurance has improved since admission, prefers to return home with home health home PT (2) Palpitations: She reports of subjective feeling of palpitation, acid with increased dyspnea on exertion, No further symptoms, remains in sinus with rate controlled with Tikosyn/arrhythmia noted in telemetry Audiology consulted, appreciate input No further cardiac work-up needed, (3) Paroxysmal atrial fibrillation: - She remains in sinus rhythm with rate controlled with Tikosyn and metoprolol Appreciate cardiology inputs, -Symptoms may be due to deconditioning from recent prolonged admission; rehab was offered however patient declined -Cardiology consult appreciated, no change in medication needed -Anticoagulated on Xarelto, continued -PT/OT evaluation requested: Recommend short-term rehab She is still reluctant to go to short-term rehab, Was to see how she feels over the weekend, Prefers to return back home with home health home PT on early next week (4) Chronic diastolic CHF (congestive heart failure): Patient remains euvolemic, Continue outpatient diuretic regimen (5) Cor pulmonale, chronic: -Patient appears euvolemic on exam Outpatient diuretics: Aldactone 12.5 mg at bedtime/Lasix 20 mg x3 a week resumed (6) CKD (chronic kidney disease), stage III: -Baseline creatinine ~1.0 -Presented with acute renal failure: Creatinine 1.3 Diuretics was kept on hold on admission Acute renal failure/ATN resolved, creatinine 0.8 with normal volume status Aldactone 12.5 mg at bedtime resumed, Resumed Lasix 20 mg x3 a week - (7) DM type 2 (diabetes mellitus, type 2): -Hgb A1c 8.5 07/2019 -Hold oral agents and utilize NovoLog per protocol while hospitalized (8) COPD (chronic obstructive pulmonary disease): -No signs of acute exacerbation, no wheezing on exam Anemia History of chronic anemia with intermittent lower GI bleed secondary to internal hemorrhoids, rectal prolapse H&H remained stable Patient will need outpatient follow-up with colorectal surgery (9) Hypothyroidism: -Continue levothyroxine (10) DVT prophylaxis: -Anticoagulated on Xarelto Disposition: Clinically much improved, with an increased exercise tolerance, able to ambulate today with minimum dyspnea on exertion Patient is the primary caregiver for her , who has profound disability secondary to advanced dementia, CVA Will follow PT OT evaluation tomorrow morning if patient's mobility is back to her baseline, plan to discharge home with home health home PT Patient is already active with [facility] at home Subjective Has minimum shortness of breath, dyspnea on exertion has markedly improved, able to walk to the bathroom without getting short of breath, no cough no fever or chills, no lower extremity edema, looking forward to be discharged home tomorrow Physical Exam Constitutional: + obese; no acute distress Eyes: PERRL, conjunctivae normal, anicteric sclerae ENMT: external ear and nose normal, oropharynx normal Neck: trachea midline, no thyromegaly Respiratory: no cough Auscultation: + diminished lung sounds; no wheezes Cardiovascular: Rate/Rhythm: regular rate and regular rhythm Gastrointestinal (Abdomen): Inspection/Auscultation: + abdomen distended and normal bowel sounds Percussion/Palpation: abdomen soft; abdomen nontender and no ascites Musculoskeletal: Head/Neck/Chest: normocephalic and head atraumatic Extremities: + abnormal strength (Generalized weakness) Neurologic: PERRL, EOMI, accommodation nl, no face palsy, no dysarthria Results & Data Vital Signs (Past 12 Hours) Vital Signs Temp Pulse Resp BP Pulse Ox 08/09/19 15:47 36.7 C 76 18 122/70 95 08/09/19 11:21 36.7 C 74 16 101/56 L 95 (1) COPD (chronic obstructive pulmonary disease) COPD type: unspecified COPD Qualified Code(s): J44.9 - Chronic obstructive pulmonary disease, unspecified
[2019-08-09] MEDS: SPIRONOLACTONE 25 MG TAB PO SCH (21:02)
[2019-08-09] MEDS: RIVAROXABAN 20 MG TAB PO SCH (21:03)
[2019-08-09] MEDS: DOCUSATE SODIUM/SENNA 50/8.6MG TAB PO SCH (21:06)
[2019-08-09] MEDS: CYCLOBENZAPRINE HCL 5 MG TAB PO PRN (21:31)
[2019-08-10] MEDS: OXYCODONE HCL IR 5 MG TAB (IMMEDIATE RELEASE) PO PRN ×2 (06:28→14:09)
[2019-08-10] MEDS: LEVOTHYROXINE SODIUM 150 MCG TABLET PO SCH (06:29)
[2019-08-10] MEDS: OXYCODONE HCL 15 MG TABCR (OXYCONTIN) PO SCH ×2 (08:27→21:01)
[2019-08-10] MEDS: DOCUSATE SODIUM 100 MG CAP PO SCH (08:27)
[2019-08-10] MEDS: MAGNESIUM OXIDE 400 MG TAB PO SCH ×2 (08:28→20:56)
[2019-08-10] MEDS: METOPROLOL SUCC 25MG EXT REL TAB PO SCH ×2 (08:28→20:57)
[2019-08-10] MEDS: DOFETILIDE 125 MCG CAPSULE PO SCH ×2 (08:28→20:56)
[2019-08-10] MEDS: INSULIN ASPART 100 UNITS/ML 3 ML PEN SC SCH ×4 (08:35→21:02)
[2019-08-10] MEDS: PREMARIN VAG CRM 14 APPLN/30 GM TUBE PV SCH (08:35)
[2019-08-10] MEDS: ALBUTEROL 0.083% NEBU SOLN 3 ML VIAL INH PRN ×3 (09:55→22:43)
[2019-08-10] MEDS: CYCLOBENZAPRINE HCL 5 MG TAB PO PRN (11:13)
[2019-08-10] MEDS ORDERED: POTASSIUM CHLORIDE 10 MEQ TABCR PO STA (17:03)
[2019-08-10 17:52] LABS: BUN Creatinine Ratio 9.3 (10-20); Calcium 8.9 mg/dl (8.5-10.1); Creatinine Clr Calc Pharmacy 52.1 ml/min; Est GFR (African American) 47.9; Est GFR (Non-African American) 41.3; Potassium 4.2 mmol/L (3.5-5.1)
[2019-08-10] MEDS: RIVAROXABAN 20 MG TAB PO SCH (20:55)
[2019-08-10] MEDS: DOCUSATE SODIUM/SENNA 50/8.6MG TAB PO SCH (20:57)
[2019-08-11] MEDS: LEVOTHYROXINE SODIUM 150 MCG TABLET PO SCH (06:25)
[2019-08-11 07:54] LABS: BUN Creatinine Ratio 11.2 (10-20); Calcium 8.7 mg/dl (8.5-10.1); Creatinine Clr Calc Pharmacy 69.2 ml/min; Est GFR (African American) 67.6; Est GFR (Non-African American) 58.3; Potassium 4.3 mmol/L (3.5-5.1)
[2019-08-11] MEDS: INSULIN ASPART 100 UNITS/ML 3 ML PEN SC SCH ×4 (08:37→20:26)
[2019-08-11] MEDS: DOCUSATE SODIUM 100 MG CAP PO SCH (08:45)
[2019-08-11] MEDS: OXYCODONE HCL 15 MG TABCR (OXYCONTIN) PO SCH ×2 (08:46→20:09)
[2019-08-11] MEDS: MAGNESIUM OXIDE 400 MG TAB PO SCH ×2 (08:46→20:02)
[2019-08-11] MEDS: POTASSIUM CHLORIDE 10 MEQ TABCR PO SCH (08:46)
[2019-08-11] MEDS: METOPROLOL SUCC 25MG EXT REL TAB PO SCH ×2 (08:47→20:01)
[2019-08-11] MEDS: DOFETILIDE 125 MCG CAPSULE PO SCH ×2 (08:47→20:01)
[2019-08-11] MEDS ORDERED: predniSONE 20 MG TAB PO SCH (10:00)
[2019-08-11] MEDS: OXYCODONE HCL IR 5 MG TAB (IMMEDIATE RELEASE) PO PRN (14:11)
[2019-08-11] MEDS: DOCUSATE SODIUM/SENNA 50/8.6MG TAB PO SCH (20:00)
[2019-08-11] MEDS: RIVAROXABAN 20 MG TAB PO SCH (20:01)
--- NOTE | 2019-08-11 20:16 | Hospitalist Progress Note ---
Date of Service August 10, 2019 Assessment & Plan (1) Dyspnea on exertion: Clinically appears to be much improved over the weekend, has minimum shortness of breath, improvement of the knee, able to do her ADLs, with minimum assistance from the nursing With PT OT evaluation will be done tomorrow If patient's functional status improved to approximate baseline, plan to discharge home with home health home PT Symptoms continues to improve Patient does not want to go to rehab, Wants to return back to home possibly early next week as her generalized weakness improves Presented with dyspnea on exertion, No evidence of cardiac decompensation, volume status stable Chronic advanced COPD on home O2 No evidence of COPD exacerbation, no hypoxia, no wheeze or cough Patient's presenting symptoms possibly likely secondary to deconditioning, recent prolonged hospital stay, PT OT evaluation requested, appreciate input During physical therapy patient's overall endurance noted to be very poor resulting in shortness of breath/dyspnea on exertion Recommends short-term rehab Referral made to skilled facility at [facility]-does not have any beds available Discussed with patient, very reluctant to go to skilled rehab, feels her overall energy and endurance has improved since admission, prefers to return home with home health home PT (2) Palpitations: She reports of subjective feeling of palpitation, acid with increased dyspnea on exertion, No further symptoms, remains in sinus with rate controlled with Tikosyn/arrhythmia noted in telemetry Audiology consulted, appreciate input No further cardiac work-up needed, (3) Paroxysmal atrial fibrillation: - She remains in sinus rhythm with rate controlled with Tikosyn and metoprolol Appreciate cardiology inputs, -Symptoms may be due to deconditioning from recent prolonged admission; rehab was offered however patient declined -Cardiology consult appreciated, no change in medication needed -Anticoagulated on Xarelto, continued -PT/OT evaluation requested: Recommend short-term rehab She is still reluctant to go to short-term rehab, Was to see how she feels over the weekend, Prefers to return back home with home health home PT on early next week (4) Chronic diastolic CHF (congestive heart failure): Patient remains euvolemic, Continue outpatient diuretic regimen (5) Cor pulmonale, chronic: -Patient appears euvolemic on exam Outpatient diuretics: Aldactone 12.5 mg at bedtime/Lasix 20 mg x3 a week resumed (6) CKD (chronic kidney disease), stage III: -Baseline creatinine ~1.0 -Presented with acute renal failure: Creatinine 1.3 Diuretics was kept on hold on admission Acute renal failure/ATN resolved, creatinine 0.8 with normal volume status Aldactone 12.5 mg at bedtime resumed, Resumed Lasix 20 mg x3 a week - (7) DM type 2 (diabetes mellitus, type 2): -Hgb A1c 8.5 07/2019 -Hold oral agents and utilize NovoLog per protocol while hospitalized (8) COPD (chronic obstructive pulmonary disease): -No signs of acute exacerbation, no wheezing on exam Anemia History of chronic anemia with intermittent lower GI bleed secondary to internal hemorrhoids, rectal prolapse H&H remained stable Patient will need outpatient follow-up with colorectal surgery (9) Hypothyroidism: -Continue levothyroxine (10) DVT prophylaxis: -Anticoagulated on Xarelto Disposition: Clinically much improved, with an increased exercise tolerance, able to ambulate today with minimum dyspnea on exertion Patient is the primary caregiver for her , who has profound disability secondary to advanced dementia, CVA PT/OT eval appreciated pt improved enough to return home with Home PT Home Health -arrangeded already Patient is already active with [facility] at home Discharge home tomorrow 08/12/19 Subjective improvement of SOB minimum BALBUENA feels more tired and weak today does not feel well enough to be discharged home willing for early afternoon discharge home tomorrow Physical Exam Constitutional: + obese; no acute distress Eyes: PERRL, conjunctivae normal, anicteric sclerae ENMT: external ear and nose normal, oropharynx normal Neck: trachea midline, no thyromegaly Respiratory: no cough Auscultation: + diminished lung sounds; no wheezes Cardiovascular: Rate/Rhythm: regular rate and regular rhythm Gastrointestinal (Abdomen): Inspection/Auscultation: + abdomen distended and normal bowel sounds Percussion/Palpation: abdomen soft; abdomen nontender and no ascites Musculoskeletal: Head/Neck/Chest: normocephalic and head atraumatic Extremities: + abnormal strength (Generalized weakness) Neurologic: PERRL, EOMI, accommodation nl, no face palsy, no dysarthria Results & Data Vital Signs (Past 12 Hours) Vital Signs Temp Pulse Resp BP Pulse Ox 08/11/19 15:00 36.6 C 78 20 116/79 98 (1) COPD (chronic obstructive pulmonary disease) COPD type: unspecified COPD Qualified Code(s): J44.9 - Chronic obstructive p ulmonary disease, unspecified
[2019-08-12] MEDS: ACETAMINOPHEN 325 MG TAB PO PRN (01:28)
[2019-08-12] MEDS: LEVOTHYROXINE SODIUM 150 MCG TABLET PO SCH (06:16)
[2019-08-12] MEDS: OXYCODONE HCL IR 5 MG TAB (IMMEDIATE RELEASE) PO PRN ×2 (06:30→19:24)
[2019-08-12] MEDS: DOFETILIDE 125 MCG CAPSULE PO SCH ×2 (08:03→21:28)
[2019-08-12] MEDS: METOPROLOL SUCC 25MG EXT REL TAB PO SCH ×2 (08:03→21:29)
[2019-08-12] MEDS: DOCUSATE SODIUM 100 MG CAP PO SCH (08:04)
[2019-08-12] MEDS: MAGNESIUM OXIDE 400 MG TAB PO SCH ×2 (08:04→21:23)
[2019-08-12] MEDS: POTASSIUM CHLORIDE 10 MEQ TABCR PO SCH (08:04)
[2019-08-12] MEDS: PREMARIN VAG CRM 14 APPLN/30 GM TUBE PV SCH (08:04)
[2019-08-12] MEDS: INSULIN ASPART 100 UNITS/ML 3 ML PEN SC SCH ×4 (08:06→21:26)
[2019-08-12] MEDS: OXYCODONE HCL 15 MG TABCR (OXYCONTIN) PO SCH ×2 (08:15→21:27)
--- NOTE | 2019-08-12 09:11 | Hospitalist Progress Note ---
Date of Service August 12, 2019 Assessment & Plan (1) Dyspnea on exertion: per Dr. Robin notes: Clinically appears to be much improved over the weekend, has minimum shortness of breath, improvement of the knee, able to do her ADLs, with minimum assistance from the nursing With PT OT evaluation will be done tomorrow If patient's functional status improved to approximate baseline, plan to discharge home with home health home PT Symptoms continues to improve Patient does not want to go to rehab, Wants to return back to home possibly early next week as her generalized weakness improves Presented with dyspnea on exertion, No evidence of cardiac decompensation, volume status stable Chronic advanced COPD on home O2 No evidence of COPD exacerbation, no hypoxia, no wheeze or cough Patient's presenting symptoms possibly likely secondary to deconditioning, recent prolonged hospital stay, PT OT evaluation requested, appreciate input During physical therapy patient's overall endurance noted to be very poor resulting in shortness of breath/dyspnea on exertion Recommends short-term rehab Referral made to skilled facility at [facility]-does not have any beds available Discussed with patient, very reluctant to go to skilled rehab, feels her overall energy and endurance has improved since admission, prefers to return home with home health home PT -- (+) edema today Lasix 40mg IV ordered monitor response (2) Palpitations: per Dr. Robin notes: She reports of subjective feeling of palpitation, acid with increased dyspnea on exertion, resolved in sinus with rate controlled with Tikosyn/arrhythmia noted in telemetry (3) Paroxysmal atrial fibrillation: per Dr. Robin notes: She remains in sinus rhythm with rate controlled with Tikosyn and metoprolol Appreciate cardiology inputs, -Symptoms may be due to deconditioning from recent prolonged admission; rehab was offered however patient declined -Cardiology consult appreciated, no change in medication needed -Anticoagulated on Xarelto, continued -PT/OT evaluation requested: Recommend short-term rehab Prefers to return back home with home health home PT on early next week (4) Chronic diastolic CHF (congestive heart failure): management per #1 (5) Cor pulmonale, chronic: management per #1 may need to be on Lasix 20mg 4xweek + daily Spironolactone (6) CKD (chronic kidney disease), stage III: -per Dr. Lobito notes: Baseline creatinine ~1.0 -Presented with acute renal failure: Creatinine 1.3 Diuretics was kept on hold on admission Acute renal failure/ATN resolved, creatinine 0.8 with normal volume status Aldactone 12.5 mg at bedtime resumed, Resumed Lasix 20 mg x3 a week - (7) DM type 2 (diabetes mellitus, type 2): -Hgb A1c 8.5 07/2019 -Hold oral agents and utilize NovoLog per protocol while hospitalized (8) COPD (chronic obstructive pulmonary disease): -No signs of acute exacerbation, no wheezing on exam Anemia History of chronic anemia with intermittent lower GI bleed secondary to internal hemorrhoids, rectal prolapse H&H remained stable Patient will need outpatient follow-up with colorectal surgery (9) Hypothyroidism: -Continue levothyroxine (10) DVT prophylaxis: -Anticoagulated on Xarelto Disposition: Clinically much improved, with an increased exercise tolerance, able to ambulate today with minimum dyspnea on exertion Patient is the primary caregiver for her , who has profound disability secondary to advanced dementia, CVA PT/OT eval appreciated pt improved enough to return home with Home PT Home Health -arrangeded already Patient is already active with [facility] at home Discharge home tomorrow 08/12/19 Subjective ff up for weakness seen in AM, states she feels fine overall denies symptoms would like to see how she does after taking a walk at noon, patient reports she feels like she is getting "swollen" weight up to 123kg from 120 Lasix 40mg IV ordered no other symptoms Review of Systems Review of Systems: All systems reviewed & are unremarkable except as noted in HPI & below Physical Exam Physical Exam: General- oriented x 3, not in distress, speaks in sentences with no effort or accessory muscle use Head- atraumatic Eyes- PERRL, EOMI, anicteric ENT- oropharynx clear Neck- supple, no JVD, no adenopathy, no thyromegaly; carotids +2/2, no bruits ap preciated Lungs- clear to auscultation bilaterally, no rales/wheezes Heart- normal rate, regular rhythm; no murmur, no gallop, no rub appreciated Abdomen- normal bowel sounds, nondistended, soft, nontender, no masses or hepatosplenomegaly Extremities-(+) mild lower leg edema Neuro- alert, oriented x 3; CN 2-12 grossly intact; motor 5/5 bilaterally;sensation 100% on all extremities; no other gross focal neurologic deficits Skin- warm & dry Results & Data Vital Signs (Past 12 Hours) Vital Signs Temp Pulse Resp BP Pulse Ox 08/12/19 08:17 36.4 C L 86 20 99/55 L 96 08/12/19 00:00 36.3 C L 84 20 121/74 92 Laboratory Results Laboratory Results - last 24 hr 08/11/19 08/12/19 08/12/19 20:18 08:00 11:38 POC Glucose 151 H 128 H 112 H 08/12/19 17:07 POC Glucose 100 H (1) COPD (chronic obstructive pulmonary disease) COPD type: unspecified COPD Qualified Code(s): J44.9 - Chronic obstructive pulmonary disease, unspecified
[2019-08-12] MEDS ORDERED: FUROSEMIDE 20 MG TAB PO STA (12:59)
[2019-08-12] MEDS ORDERED: FUROSEMIDE 40 MG in SYRINGE 0 ML IV ONE (14:00)
[2019-08-12] MEDS: DOCUSATE SODIUM/SENNA 50/8.6MG TAB PO SCH (21:27)
[2019-08-12] MEDS: RIVAROXABAN 20 MG TAB PO SCH (21:30)
[2019-08-13] MEDS: ACETAMINOPHEN 325 MG TAB PO PRN (02:25)
[2019-08-13] MEDS: LEVOTHYROXINE SODIUM 150 MCG TABLET PO SCH (06:31)
[2019-08-13] MEDS: DOFETILIDE 125 MCG CAPSULE PO SCH ×2 (08:52→21:17)
[2019-08-13] MEDS: METOPROLOL SUCC 25MG EXT REL TAB PO SCH ×2 (08:52→21:18)
[2019-08-13] MEDS: MAGNESIUM OXIDE 400 MG TAB PO SCH ×2 (08:52→21:16)
[2019-08-13] MEDS: FUROSEMIDE 20 MG TAB PO SCH (08:52)
[2019-08-13] MEDS: POTASSIUM CHLORIDE 10 MEQ TABCR PO SCH (08:53)
[2019-08-13] MEDS: DOCUSATE SODIUM 100 MG CAP PO SCH (08:53)
[2019-08-13] MEDS: INSULIN ASPART 100 UNITS/ML 3 ML PEN SC SCH ×4 (09:03→21:38)
--- NOTE | 2019-08-13 09:09 | Hospitalist Progress Note ---
Date of Service August 13, 2019 Assessment & Plan (1) Bleeding hemorrhoids: history of bleeding internal and external hemorrhoids and rectal prolapse on Xarelto not constipated check H&H evaluated by GI last admission, will request for re-evaluation (2) Dyspnea on exertion: per Dr. Robin notes: Clinically appears to be much improved over the weekend, has minimum shortness of breath, improvement of the knee, able to do her ADLs, with minimum assistance from the nursing With PT OT evaluation will be done tomorrow If patient's functional status improved to approximate baseline, plan to discharge home with home health home PT Symptoms continues to improve Patient does not want to go to rehab, Wants to return back to home possibly early next week as her generalized weakness improves Presented with dyspnea on exertion, No evidence of cardiac decompensation, volume status stable Chronic advanced COPD on home O2 No evidence of COPD exacerbation, no hypoxia, no wheeze or cough Patient's presenting symptoms possibly likely secondary to deconditioning, recent prolonged hospital stay, PT OT evaluation requested, appreciate input During physical therapy patient's overall endurance noted to be very poor resulting in shortness of breath/dyspnea on exertion Recommends short-term rehab Referral made to skilled facility at [facility]-does not have any beds available Discussed with patient, very reluctant to go to skilled rehab, feels her overall energy and endurance has improved since admission, prefers to return home with home health home PT 08/12 -- (+) edema today Lasix 40mg IV ordered monitor response 08/13 -- edema improved continue usual Lasix 20mg po monitor (3) Palpitations: per Dr. Robin notes: She reports of subjective feeling of palpitation, acid with increased dyspnea on exertion, resolved in sinus with rate controlled with Tikosyn/arrhythmia noted in telemetry (4) Paroxysmal atrial fibrillation: per Dr. Robin notes: She remains in sinus rhythm with rate controlled with Tikosyn and metoprolol Appreciate cardiology inputs, -Symptoms may be due to deconditioning from recent prolonged admission; rehab was offered however patient declined -Cardiology consult appreciated, no change in medication needed -Anticoagulated on Xarelto, continued -PT/OT evaluation requested: Recommend short-term rehab Prefers to return back home with home health home PT on early next week (5) Chronic diastolic CHF (congestive heart failure): management per #1 (6) Cor pulmonale, chronic: management per #1 may need to be on Lasix 20mg 4xweek + daily Spironolactone (7) CKD (chronic kidney disease), stage III: -per Dr. Robin notes: Baseline creatinine ~1.0 -Presented with acute renal failure: Creatinine 1.3 Diuretics was kept on hold on admission Acute renal failure/ATN resolved, creatinine 0.8 with normal volume status Aldactone 12.5 mg at bedtime resumed, Resumed Lasix 20 mg x3 a week - (8) DM type 2 (diabetes mellitus, type 2): -Hgb A1c 8.5 07/2019 -Hold oral agents and utilize NovoLog per protocol while hospitalized (9) COPD (chronic obstructive pulmonary disease): -No signs of acute exacerbation, no wheezing on exam Anemia History of chronic anemia with intermittent lower GI bleed secondary to internal hemorrhoids, rectal prolapse H&H remained stable Patient will need outpatient follow-up with colorectal surgery (10) Hypothyroidism: -Continue levothyroxine (11) DVT prophylaxis: -Anticoagulated on Xarelto Disposition: patient prefers to go home with home health services Subjective ff up weakness, CHF patient had profuse rectal bleed with BM today seemed to have resolved after placement of pads on the rectal area denies chest pain, dyspnea, dizziness, palpitations no other symptoms Review of Systems Review of Systems: All systems reviewed & are unremarkable except as noted in HPI & below Physical Exam Physical Exam: General- oriented x 3, not in distress, speaks in sentences with no effort or accessory muscle use Eyes- anicteric Neck- no JVD Lungs- clear breath sounds bilaterally, no rales/wheezes Heart- normal rate, regular rhythm; no murmurs Abdomen- normal bowel sounds, nondistended, soft, nontender Rectal- (+)external hemorrhoids, no active bleeding noted Extremities-trace pretibial edema, no calf tenderness Neuro- alert, oriented x 3; no gross focal neurologic deficits Skin- warm & dry Results & Data Vital Signs (Past 12 Hours) Vital Signs Temp Pulse Resp BP Pulse Ox 08/13/19 09:00 36.7 C 70 18 130/79 95 08/13/19 07:51 36.7 C 72 20 103/64 96 08/12/19 23:03 36.8 C 112 H 18 96/57 L 95 (1) COPD (chronic obstructive pulmonary disease) COPD type: unspecified COPD Qualified Code(s): J44.9 - Chronic obstructive pulmonary disease, unspecified
[2019-08-13] MEDS: OXYCODONE HCL 15 MG TABCR (OXYCONTIN) PO SCH ×2 (09:12→21:17)
[2019-08-13 09:28] LABS: Basophils # (auto) 0.05 K/uL (0-0.2); Basophils % (auto) 1.2 %; Eosinophils # (auto) 0.15 K/uL (0-0.5); Eosinophils % (auto) 3.5 %; Hematocrit (blood only) 30.7 % (37-47); Hemoglobin 9.8 g/dL (12.0-16.0); Immature Granulocytes # (auto) 0.02 K/uL (0.00-0.02); Immature Granulocytes % (auto) 0.5 %; Lymphocytes # (auto) 1.32 K/uL (1.2-3.4); Lymphocytes % (auto) 30.4 %; Mean Corpuscular Hemoglobin 30.3 pg (25-34); Mean Platelet Volume 8.9 fL (7.4-10.4); Monocytes # (auto) 0.64 K/uL (0.11-0.59); Monocytes % (auto) 14.7 %; Neutrophils # (auto) 2.16 K/uL (1.4-6.5); Neutrophils % (auto) 49.7 %; Platelet Count 225 K/uL (130-400); RDW Coefficient of Variation 14.8 % (11.5-14.5); RDW Standard Deviation 51.3 fL (36.4-46.3); Red Blood Count 3.23 M/uL (4.2-5.4); White Blood Count 4.34 K/uL (4.8-10.8)
[2019-08-13 09:43] LABS: Mean Corpuscular Hgb Conc 31.9 g/dL (32-36)
[2019-08-13] MEDS ORDERED: HYDROCORTISONE ACETATE 25 MG SUPP PR PRN (13:27)
--- NOTE | 2019-08-13 13:30 | Gastrointestinal Consultation ---
Date of Consultation August 13, 2019 Assessment & Plan (1) Rectal bleeding: (2) Rectal prolapse: Pt is a 74 y/o female seen for BRBPR on setting of Xarelto use for Afib. She had similar episode of rectal bleeding a few weeks back, evaluated by our GI team and suspected bleeding related to ext/int hemorrhoids, rectal prolapse. H/H stable. On my exam today she does have rectal prolapse but no stigmata of bleeding, I cannot appreciate int hemorrhoids or masses on my exam, also no signs of residual blood/clot. There were brown specks of stools. - Monitor H/H - Continue stool softeners/laxatives to prevent constipation - May continue TUCKS wipes, or use soft moist cloth to clean rectal area prn. - Sitz bath if having hemorrhoidal bleeding - May try again Hydrocortisone 25mg IN cream BID prn hemorrhoidal bleed; she cannot retain suppository well - Upon DC she should have f/u colonoscopy (last colonoscopy in 2004, brother w hx of colon ca) and Colorectal Surgery appt - GI to sign off; pls recall prn Supervising Physician Co-Signing Physician Notes Pt seen and examined with ESTELA Martinez. Her note reflects my exam and findings. I agree with her impression and plan. Most c/w outlet bleeding from hemorrhoids. Consider out patient colonoscopy in future once stable from cardiac perspective. Jason Osborn M.D. History of Present Illness Reason for Consultation: Rectal bleeding on Xarelto Requesting Physician: Dr. Masood Rushing Attending Physician: Dr. Jason Osborn History of Present Illness Pt is a 74 y/o female currently seen for rectal bleeding. She is currently admitted for BALBUENA, progressive weakness suspect due to deconditioning given recent prolonged hospitalization. She is on Xarelto for Afib. A few weeks ago had just been seen by our GI group (ESTELA Edmond & Dr. Kacey Carpenter) for rectal bleeding suspected to be secondary to int/ext hemorrhoids & rectal prolapse. She was recommended to avoid constipation and had been on Colace, Senokot and Miralax. She denies straining or having hard stools recently. She did however went to the bathroom this morning to urinate and after reducing her bladder prolapse, she noticed large amt of BRBPR. She denies any rectal pain, itching, abd pain, n/v symptoms. She recalled a few weeks ago when she had similar symptoms, the amount bleeding was less. She was at that time given steroid based suppository and cream which she felt had helped but unfortunately she found it hard to administer and retain suppository. Also she didn't get Rx for steroid cream upon discharge. She was recommended to have f/u colonoscopy as last one was done >10 yrs ago and brother w hx of colon ca. Was also referred to Colorectal surgery to discuss possible hemorrhoid resection. She declined both colonoscopy and Colorectal Surgery appt as she was dealing w cardiopulmonary issues. Blood ct stable w/o significant drop in H/H. No abd imaging in this admission. Allergies Allergy/AdvReac Type Severity Reaction Status Date / Time arformoterol Allergy Severe TACHYCARDIA Unverified 08/04/19 16:35 aspirin Allergy Severe HIVES, SOB Verified 08/04/19 16:35 ciprofloxacin Allergy Severe Unknown Verified 08/04/19 16:35 clarithromycin [From Biaxin] Allergy Severe Unknown Verified 08/04/19 16:35 Iodinated Contrast Media Allergy Severe "CAUSED Verified 08/04/19 16:35 ASTHMA ATTACK" metaproterenol [From Alupent] Allergy Severe Unknown Verified 08/04/19 16:35 metformin [From Riomet] Allergy Severe Unknown Verified 08/04/19 16:35 NSAIDS (Non-Steroidal Allergy Severe Hives Verified 08/04/19 16:35 Anti-Inflamma Penicillins Allergy Severe SOB, HIVES Verified 08/04/19 16:35 pioglitazone [From Actos] Allergy Severe Unknown Verified 08/04/19 16:35 Sulfa (Sulfonamide Allergy Severe Anaphylaxis Verified 08/04/19 16:35 Antibiotics) tiotropium Allergy Severe Unknown Verified 08/04/19 16:35 [From Spiriva with HandiHaler] aspartame Allergy Intermediate HIVES, Verified 08/04/19 16:35 ITCHY chlorhexidine Allergy Intermediate BLISTERY Verified 08/04/19 16:35 RASH ipratropium Allergy Mild SHORTNESS Verified 08/04/19 16:35 OF BREATH povidone Allergy Mild BLISTER Verified 08/04/19 16:35 WITH TAPE fish derived Allergy Unknown Unknown Verified 08/04/19 16:35 meperidine AdvReac Intermediate Gastrointestinal Verified 08/04/19 16:35 Upset morphine AdvReac Intermediate Gastrointestinal Verified 08/04/19 16:35 Upset adhesive AdvReac Mild BLISTERS Verified 08/04/19 16:35 WITH TAPE Home Medications Home Medications Medication Instructions Recorded Confirmed Type Premarin 1 applic TOPICAL [id number] 07/24/18 08/04/19 History albuterol sulfate 2.5 mg INHALATION Q4H PRN 07/24/18 08/04/19 History cyclobenzaprine 5 - 10 mg PO BID PRN 07/24/18 08/04/19 History meclizine 25 mg PO TID PRN 07/24/18 08/04/19 History oxycodone 10 mg PO Q4H PRN 07/24/18 08/04/19 History albuterol sulfate HFA 90 2 puff INHALATION Q6H PRN #3 06/17/19 08/04/19 Rx mcg/actuation aerosol inhaler inhaler levothyroxine 150 mcg capsule 150 mcg PO QAM 06/17/19 08/04/19 History Xarelto 20 mg PO QPM 07/19/19 08/04/19 History hydrocortisone acetate 1 applic TOPICAL BID PRN 07/19/19 08/04/19 History dofetilide [Tikosyn] 250 mcg PO BID 30 Days #120 cap 07/28/19 08/04/19 Rx metoprolol succinate 25 mg PO BID 30 Days #60 tab 07/28/19 08/04/19 Rx sennosides-docusate sodium 2 tab PO HS 30 Days #0 tab 07/28/19 08/04/19 Rx [Senokot-S] furosemide 20 mg PO TuThSa@0900 30 Days #12 07/30/19 08/04/19 Rx tab oxycodone [OxyContin] 30 mg PO Q12H #0 tab 07/30/19 08/04/19 Rx docusate sodium [Colace] 100 mg PO DAILY 08/04/19 08/04/19 History hydrocortisone acetate [Anucort-HC] 25 mg IN BID PRN 08/04/19 08/04/19 History magnesium sulfate 200 mg PO BID 08/04/19 08/04/19 History metformin [Glucophage XR] 500 mg PO QAM 08/04/19 08/04/19 History potassium chloride [Klor-Con M10] 10 meq PO QAM 08/04/19 08/04/19 History spironolactone 12.5 mg PO HS 08/04/19 08/04/19 History Patient History Medical History Chronic diastolic CHF (congestive heart failure) (Chronic) History of hysterectomy (Chronic) History of TIA (transient ischemic attack) (Chronic) Chronic anticoagulation (Chronic) Cor pulmonale, chronic (Chronic) ZEYAD (obstructive sleep apnea) (Chronic) Dyslipidemia (Chronic) Hypothyroidism (Chronic) CKD (chronic kidney disease), stage III (Chronic) Chronic respiratory failure with hypoxia (Chronic) DM type 2 (diabetes mellitus, type 2) (Chronic) COPD (chronic obstructive pulmonary disease) (Chronic) Paroxysmal atrial fibrillation (Chronic) Asthma (Chronic) Surgical History History of cholecystectomy (Chronic) History of cataract surgery (Chronic) History of appendectomy (Chronic) H/O arthroscopic knee surgery (Chronic) Family History Father Asthma Lung cancer Mother Diabetes Heart disease Brother Colon cancer Daughter Diabetes Brother Stroke Social History Preferred Language: Filipino Communication Ability: Effective Sludge Filtration Attendant Required: No Beliefs That Will Affect Care: None marital status: Current Living Situation: Family Current Living Situation Comment: lives with son Feels Safe at Home: Yes Safety Concerns: Feels Safe At This Time Smoking Status: Never smoker Second Hand Exposure: No ; Hx Alcohol Use: No Hx Substance Use: No Review of Systems Review of Systems: All systems reviewed & are unremarkable except as noted in HPI & below Physical Exam Constitutional: + obese, well groomed and cooperative Eyes: PERRL, conjunctivae normal, anicteric sclerae ENMT: external ear and nose normal, oropharynx normal Respiratory: no respiratory distress and does not use accessory muscles Auscultation: + diminished lung sounds Cardiovascular: RRR, no murmur, no edema Gastrointestinal (Abdomen): normal bowel sounds, soft, nontender, no hepatosplenomegaly Rectal prolapse noted. I cannot appreciate rectal masses or int hemorrhoids on exam. Specks of light brown stools on my gloved finger after internal exam done, no signs of blood or clots. Skin: no rashes, warm and dry no jaundice Psychiatric: A+Ox3, euthymic affect Results & Data Vital Signs (Past 12 Hours) Vital Signs Temp Pulse Resp BP Pulse Ox 08/13/19 09:00 36.7 C 70 18 130/79 95 08/13/19 07:51 36.7 C 72 20 103/64 96
[2019-08-13 15:04] LABS: Basophils # (auto) 0.03 K/uL (0-0.2); Basophils % (auto) 0.6 %; Eosinophils # (auto) 0.11 K/uL (0-0.5); Eosinophils % (auto) 2.3 %; Hematocrit (blood only) 34.1 % (37-47); Hemoglobin 10.4 g/dL (12.0-16.0); Immature Granulocytes # (auto) 0.01 K/uL (0.00-0.02); Immature Granulocytes % (auto) 0.2 %; Lymphocytes % (auto) 27.3 %; Mean Corpuscular Hemoglobin 29.2 pg (25-34); Mean Corpuscular Hgb Conc 30.5 g/dL (32-36); Mean Corpuscular Volume 95.8 fL (80-100); Mean Platelet Volume 9.4 fL (7.4-10.4); Monocytes # (auto) 0.61 K/uL (0.11-0.59); Monocytes % (auto) 12.8 %; Neutrophils % (auto) 56.8 %; Platelet Count 264 K/uL (130-400); RDW Coefficient of Variation 14.8 % (11.5-14.5); Red Blood Count 3.56 M/uL (4.2-5.4); White Blood Count 4.76 K/uL (4.8-10.8)
[2019-08-13] MEDS: OXYCODONE HCL IR 5 MG TAB (IMMEDIATE RELEASE) PO PRN (19:01)
[2019-08-13] MEDS: DOCUSATE SODIUM/SENNA 50/8.6MG TAB PO SCH (21:17)
[2019-08-13] MEDS: RIVAROXABAN 20 MG TAB PO SCH (21:22)
--- NOTE | 2019-08-13 21:40 | Hospitalist Progress Note ---
Date of Service August 10, 2019 LATE ENTRY PT WAS SEEN ON 08/10/2019 AT APPROX 5PM Assessment & Plan (1) Dyspnea on exertion: Clinically appears to be much improved over the weekend, has minimum shortness of breath, able to do her ADLs, If patient's functional status improved to approximate baseline, plan to discharge home with home health home PT Patient does not want to go to rehab, Wants to return back to home possibly early next week as her generalized weakness improves Presented with dyspnea on exertion, No evidence of cardiac decompensation, volume status stable Chronic advanced COPD on home O2 No evidence of COPD exacerbation, no hypoxia, no wheeze or cough Patient's presenting symptoms possibly likely secondary to deconditioning, recent prolonged hospital stay, PT OT evaluation requested, appreciate input During physical therapy patient's overall endurance noted to be very poor resulting in shortness of breath/dyspnea on exertion Recommends short-term rehab Referral made to skilled facility at [facility]-does not have any beds available Discussed with patient, very reluctant to go to skilled rehab, feels her overall energy and endurance has improved since admission, prefers to return home with home health home PT (2) Palpitations: on admission She reports of subjective feeling of palpitation, possibly for due to deconditioning symptom has resolved remains in sinus with rate controlled with Tikosyn no arrhythmia noted in telemetry Telemetry D/yue (3) Paroxysmal atrial fibrillation: hx of paroxysmal Afib intolerant of sotalol in past was changed to Tykosin in last admission She remains in sinus rhythm with rate controlled with Tikosyn and metoprolol Appreciate cardiology inputs, -Symptoms may be due to deconditioning from recent prolonged admission; rehab was offered however patient declined -Cardiology consult appreciated, no change in medication needed -Anticoagulated on Xarelto, continued -PT/OT evaluation requested: Recommend short-term rehab Prefers to return back home with home health home PT on early next week (4) Chronic diastolic CHF (congestive heart failure): vol status remains stable cont Lasix and Aldactone (5) Cor pulmonale, chronic: due to severe COPD leading to Pulm HTN on home 02 , respiratory status improved to baseline cont on Lasix 20mg 4xweek + daily Spironolactone (6) CKD (chronic kidney disease), stage III: Baseline creatinine ~1.0 -Presented with acute renal failure: Creatinine 1.3 Diuretics was kept on hold on admission Acute renal failure/ATN resolved, creatinine 0.8 with normal volume status Aldactone 12.5 mg at bedtime resumed, Resumed Lasix 20 mg x3 a week - (7) DM type 2 (diabetes mellitus, type 2): -Hgb A1c 8.5 07/2019 -Hold oral agents and utilize NovoLog per protocol while hospitalized (8) COPD (chronic obstructive pulmonary disease): -No signs of acute exacerbation, no wheezing on exam Anemia History of chronic anemia with intermittent lower GI bleed secondary to internal hemorrhoids, rectal prolapse H&H remained stable Patient will need outpatient follow-up with colorectal surgery( Rectal Prolapse ) (9) Hypothyroidism: -Continue levothyroxine (10) DVT prophylaxis: -Anticoagulated on Xarelto Disposition: patient prefers to go home with home health services Subjective LATE ENTRY ;PATIENT WAS SEEN ON 08/10/19 AT APPROX 5 PM has been sitting on chair most part of the day minimum BALBUENA improvement of SOB , no cough feels that if she continues to do well planning to be discharged home tomorrow Physical Exam Constitutional: + obese; no acute distress Eyes: PERRL, conjunctivae normal, anicteric sclerae ENMT: external ear and nose normal, oropharynx normal Neck: trachea midline, no thyromegaly Respiratory: no cough Auscultation: + diminished lung sounds; no wheezes Cardiovascular: Rate/Rhythm: regular rate and regular rhythm Gastrointestinal (Abdomen): Inspection/Auscultation: + abdomen distended and normal bowel sounds Percussion/Palpation: abdomen soft; abdomen nontender and no ascites Musculoskeletal: Head/Neck/Chest: normocephalic and head atraumatic Extremities: + abnormal strength (Generalized weakness) Neurologic: PERRL, EOMI, accommodation nl, no face palsy, no dysarthria Results & Data Vital Signs (Past 12 Hours) Vital Signs Temp Pulse Resp BP Pulse Ox (1) COPD (chronic obstructive pulmonary disease) COPD type: unspecified COPD Qualified Code(s): J44.9 - Chronic obstructive pulmonary disease, unspecified
[2019-08-14] MEDS: ACETAMINOPHEN 325 MG TAB PO PRN (02:48)
[2019-08-14] MEDS: LEVOTHYROXINE SODIUM 150 MCG TABLET PO SCH (05:44)
[2019-08-14] MEDS: OXYCODONE HCL 15 MG TABCR (OXYCONTIN) PO SCH ×2 (08:25→21:08)
[2019-08-14] MEDS: METOPROLOL SUCC 25MG EXT REL TAB PO SCH ×2 (08:26→21:08)
[2019-08-14] MEDS: DOCUSATE SODIUM 100 MG CAP PO SCH (08:26)
[2019-08-14] MEDS: INSULIN ASPART 100 UNITS/ML 3 ML PEN SC SCH ×4 (08:26→21:08)
[2019-08-14] MEDS: DOFETILIDE 125 MCG CAPSULE PO SCH ×2 (08:27→21:08)
[2019-08-14] MEDS: POLYETHYLENE (MIRALAX) 17 GM PACK PO SCH (08:27)
[2019-08-14] MEDS: MAGNESIUM OXIDE 400 MG TAB PO SCH ×2 (08:27→21:07)
[2019-08-14] MEDS: POTASSIUM CHLORIDE 10 MEQ TABCR PO SCH (08:27)
[2019-08-14] MEDS: PREMARIN VAG CRM 14 APPLN/30 GM TUBE PV SCH (08:28)
[2019-08-14 09:12] LABS: Hematocrit (blood only) 32.8 % (37-47)
--- NOTE | 2019-08-14 15:02 | XRay Report ---
XR chest 1V portable HISTORY: wheezing COMPARISON: Chest 08/04/2019. FINDINGS: A few linear scarlike densities within the left lung remain unchanged. No new focal lung co nsolidations to suggest pneumonia. No evidence for pulmonary edema. The heart remains mildly enlarged . No pleural effusions. No pneumothorax. Slight prominence of the interstitial markings which may be chronic. IMPRESSION: No significant change compared to the prior study. No acute process. Electronically signed by: Ted Mccullough M.D. 08/14/2019 3:01 PM
[2019-08-14 15:05] LABS: BUN Creatinine Ratio 9.1 (10-20); Calcium 9.1 mg/dl (8.5-10.1); Creatinine Clr Calc Pharmacy 56.7 ml/min; Est GFR (African American) 52.3; Est GFR (Non-African American) 45.1; Potassium 3.9 mmol/L (3.5-5.1)
--- NOTE | 2019-08-14 19:35 | Hospitalist Progress Note ---
Date of Service delayed entry date of service as noted below August 14, 2019 Assessment & Plan (1) Dyspnea on exertion: per Dr. Robin notes: Presented with dyspnea on exertion, No evidence of cardiac decompensation, volume status stable Chronic advanced COPD on home O2 No evidence of COPD exacerbation, no hypoxia, no wheeze or cough Patient's presenting symptoms possibly likely secondary to deconditioning, recent prolonged hospital stay, PT OT evaluation requested, appreciate input During physical therapy patient's overall endurance noted to be very poor resulting in shortness of breath/dyspnea on exertion Recommends short-term rehab Referral made to skilled facility at [facility]-does not have any beds available Discussed with patient, very reluctant to go to skilled rehab, feels her overall energy and endurance has improved since admission, prefers to return home with home health home PT -- (+) wheeze, edema, weight gain today management noted below (2) Palpitations: on admission She reports of subjective feeling of palpitation, possibly for due to deconditioning symptom has resolved remains in sinus with rate controlled with Tikosyn no arrhythmia noted in telemetry Telemetry D/yue (3) Paroxysmal atrial fibrillation: hx of paroxysmal Afib intolerant of sotalol in past was changed to Tykosin in last admission She remains in sinus rhythm with rate controlled with Tikosyn and metoprolol Appreciate cardiology inputs, -Symptoms may be due to deconditioning from recent prolonged admission; rehab was offered however patient declined -Cardiology consult appreciated, no change in medication needed -Anticoagulated on Xarelto, continued (4) Chronic diastolic CHF (congestive heart failure): (+) volume overload Lasix 20mg IV Aldactone will need to increase PO Lasix (5) Cor pulmonale, chronic: due to severe COPD leading to Pulm HTN on home 02 , respiratory status improved to baseline management as per #1 (6) CKD (chronic kidney disease), stage III: Baseline creatinine ~1.0 -Presented with acute renal failure: Creatinine 1.3 Diuretics was kept on hold on admission Acute renal failure/ATN resolved, creatinine 0.8 with normal volume status --- monitor while on diuretics (7) DM type 2 (diabetes mellitus, type 2): -Hgb A1c 8.5 07/2019 -Hold oral agents and utilize NovoLog per protocol while hospitalized (8) COPD (chronic obstructive pulmonary disease): -No signs of acute exacerbation, no wheezing on exam Anemia History of chronic anemia with intermittent lower GI bleed secondary to internal hemorrhoids, rectal prolapse H&H remained stable Patient will need outpatient follow-up with colorectal surgery( Rectal Prolapse ) -- (+) rectal bleed recurrence resolved Hg stable -- monitor (9) Hypothyroidism: -Continue levothyroxine (10) DVT prophylaxis: -Anticoagulated on Xarelto Disposition: patient prefers to go home with home health services Subjective ff up for weakness, CHF seen resting in bed, comfortable reports dyspnea on exertion, wheezing after ambulation with PT no chest pain no rectal bleed no other symptoms Review of Systems Review of Systems: All systems reviewed & are unremarkable except as noted in HPI & below Physical Exam Physical Exam: General- oriented x 3, not in distress, speaks in sentences with no effort or accessory muscle use Eyes- anicteric Neck- no JVD Lungs- (+) faint wheeze biltareally Heart- normal rate, regular rhythm; no murmurs Abdomen- normal bowel sounds, nondistended, soft, nontender Extremities-(+) mild pretibial edema, no calf tenderness Neuro- alert, oriented x 3; no gross focal neurologic deficits Skin- warm & dry Results & Data Vital Signs (Past 12 Hours) Vital Signs Temp Pulse Resp BP Pulse Ox 08/14/19 16:02 36.9 C 76 20 121/74 97 08/14/19 08:01 36.8 C 77 16 123/77 99 Laboratory Results noted and reviewed (1) COPD (chronic obstructive pulmonary disease) COPD type: unspecified COPD Qualified Code(s): J44.9 - Chronic obstructive pulmonary disease, unspecified
[2019-08-14] MEDS: FUROSEMIDE 20 MG in SYRINGE 0 ML IV ONE ×2 (19:52→21:00)
[2019-08-14] MEDS: SPIRONOLACTONE 25 MG TAB PO SCH (21:07)
[2019-08-14] MEDS: RIVAROXABAN 20 MG TAB PO SCH (21:08)
[2019-08-14] MEDS: DOCUSATE SODIUM/SENNA 50/8.6MG TAB PO SCH (21:08)
[2019-08-14] MEDS: OXYCODONE HCL IR 5 MG TAB (IMMEDIATE RELEASE) PO PRN (21:37)
[2019-08-15] MEDS: LEVOTHYROXINE SODIUM 150 MCG TABLET PO SCH (06:07)
[2019-08-15] MEDS: OXYCODONE HCL 15 MG TABCR (OXYCONTIN) PO SCH ×2 (07:54→20:47)
[2019-08-15] MEDS: DOCUSATE SODIUM 100 MG CAP PO SCH (07:55)
[2019-08-15] MEDS: MAGNESIUM OXIDE 400 MG TAB PO SCH ×2 (07:55→20:49)
[2019-08-15] MEDS: DOFETILIDE 125 MCG CAPSULE PO SCH ×2 (07:55→20:49)
[2019-08-15] MEDS: POTASSIUM CHLORIDE 10 MEQ TABCR PO SCH (07:55)
[2019-08-15] MEDS: POLYETHYLENE (MIRALAX) 17 GM PACK PO SCH (07:55)
[2019-08-15] MEDS: METOPROLOL SUCC 25MG EXT REL TAB PO SCH ×2 (07:55→20:48)
[2019-08-15] MEDS: FUROSEMIDE 20 MG TAB PO SCH (07:55)
[2019-08-15 08:26] LABS: BUN Creatinine Ratio 10.5 (10-20); Calcium 8.7 mg/dl (8.5-10.1); Creatinine Clr Calc Pharmacy 76.4 ml/min; Est GFR (Non-African American) 64.7; Magnesium 1.6 mg/dl (1.8-2.4); Potassium 3.6 mmol/L (3.5-5.1)
[2019-08-15] MEDS: INSULIN ASPART 100 UNITS/ML 3 ML PEN SC SCH ×4 (08:32→20:50)
[2019-08-15] MEDS: OXYCODONE HCL IR 5 MG TAB (IMMEDIATE RELEASE) PO PRN ×2 (08:35→19:44)
[2019-08-15] MEDS: ACETAMINOPHEN 325 MG TAB PO PRN (13:54)
[2019-08-15] MEDS ORDERED: HYDROCORTISONE HC 2.5% CRM 30GM TUBE EXT PRN ×2 (15:11→15:23)
--- NOTE | 2019-08-15 16:00 | Hospitalist Progress Note ---
Date of Service August 15, 2019 Assessment & Plan (1) Dyspnea on exertion: per Dr. Robin notes: Presented with dyspnea on exertion, No evidence of cardiac decompensation, volume status stable Chronic advanced COPD on home O2 No evidence of COPD exacerbation, no hypoxia, no wheeze or cough Patient's presenting symptoms possibly likely secondary to deconditioning, recent prolonged hospital stay, PT OT evaluation requested, appreciate input During physical therapy patient's overall endurance noted to be very poor resulting in shortness of breath/dyspnea on exertion Recommends short-term rehab Referral made to skilled facility at [facility]-does not have any beds available Discussed with patient, very reluctant to go to skilled rehab, feels her overall energy and endurance has improved since admission, prefers to return home with home health home PT -- (+) wheeze, edema, weight gain today management noted below (2) Chronic diastolic CHF (congestive heart failure): (+) volume overload noted this weekend on Lasix 20mg po 3x/week, continue Lasix 20mg IV Day 2 continue usual daily Aldactone will need to increase PO Lasix 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 consult 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 (3) Palpitations: on admission She reports of subjective feeling of palpitation, possibly for due to deconditioning symptom has resolved remains in sinus with rate controlled with Tikosyn no arrhythmia noted in telemetry Telemetry D/yue (4) Paroxysmal atrial fibrillation: hx of paroxysmal Afib intolerant of sotalol in past was changed to Tykosin in last admission She remains in sinus rhythm with rate controlled with Tikosyn and metoprolol Appreciate cardiology inputs, -Symptoms may be due to deconditioning from recent prolonged admission; rehab was offered however patient declined -Cardiology consult appreciated, no change in medication needed -Anticoagulated on Xarelto, continued (5) Cor pulmonale, chronic: due to severe COPD leading to Pulm HTN on home 02 , respiratory status improved to baseline management as per #1 (6) CKD (chronic kidney disease), stage III: Baseline creatinine ~1.0 -Presented with acute renal failure: Creatinine 1.3 Diuretics was kept on hold on admission Acute renal failure/ATN resolved, creatinine 0.8 with normal volume status --- monitor while on diuretics (7) DM type 2 (diabetes mellitus, type 2): -Hgb A1c 8.5 07/2019 -Hold oral agents and utilize NovoLog per protocol while hospitalized (8) COPD (chronic obstructive pulmonary disease): -No signs of acute exacerbation, no wheezing on exam Anemia History of chronic anemia with intermittent lower GI bleed secondary to internal hemorrhoids, rectal prolapse H&H remained stable Patient will need outpatient follow-up with colorectal surgery( Rectal Prolapse ) -- (+) rectal bleed recurrence resolved Hg stable -- Proctozone ordered (9) Hypothyroidism: -Continue levothyroxine DVT prophylaxis on Xarelot Disposition anticipate d/c home with home health services when medically stable (10) DVT prophylaxis: -Anticoagulated on Xarelto Disposition: patient prefers to go home with home health services Subjective ff up for CHF, rectal bleed seen resting in bed, comfortable still has mild dyspnea on exertion less than yesterday no chest pain (+) mild rectal bleed from hemorrhoids no other symptoms Review of Systems Review of Systems: All systems reviewed & are unremarkable except as noted in HPI & below Physical Exam Physical Exam: General- oriented x 3, not in distress, speaks in sentences wi th no effort or accessory muscle use Eyes- anicteric Neck- no JVD Lungs- (+) very faint wheezing bilaterally Heart- normal rate, regular rhythm; no murmurs Abdomen- normal bowel sounds, nondistended, soft, nontender Extremities- no pretibial edema, no calf tenderness Neuro- alert, oriented x 3; no gross focal neurologic deficits Skin- warm & dry Results & Data Vital Signs (Past 12 Hours) Vital Signs Temp Pulse Resp BP Pulse Ox 08/15/19 14:57 36.9 C 73 20 119/53 L 97 08/15/19 07:10 36.5 C 81 19 101/60 98 (1) COPD (chronic obstructive pulmonary disease) COPD type: unspecified COPD Qualified Code(s): J44.9 - Chronic obstructive pulmonary disease, unspecified
[2019-08-15] MEDS ORDERED: POTASSIUM CHLORIDE 20 MEQ TABCR PO ONE (16:30)
[2019-08-15] MEDS ORDERED: FUROSEMIDE 40 MG in SYRINGE 0 ML IV ONE (16:30)
[2019-08-15] MEDS: DOCUSATE SODIUM/SENNA 50/8.6MG TAB PO SCH (20:49)
[2019-08-15] MEDS: RIVAROXABAN 20 MG TAB PO SCH (20:50)
[2019-08-15] MEDS: SPIRONOLACTONE 25 MG TAB PO SCH (20:50)
[2019-08-16] MEDS: LEVOTHYROXINE SODIUM 150 MCG TABLET PO SCH (06:04)
[2019-08-16] MEDS: POLYETHYLENE (MIRALAX) 17 GM PACK PO SCH (08:21)
[2019-08-16] MEDS: INSULIN ASPART 100 UNITS/ML 3 ML PEN SC SCH ×4 (08:21→20:25)
[2019-08-16] MEDS: DOCUSATE SODIUM 100 MG CAP PO SCH (08:22)
[2019-08-16] MEDS: OXYCODONE HCL 15 MG TABCR (OXYCONTIN) PO SCH ×2 (08:22→20:25)
[2019-08-16] MEDS: METOPROLOL SUCC 25MG EXT REL TAB PO SCH ×2 (08:22→20:31)
[2019-08-16] MEDS: MAGNESIUM OXIDE 400 MG TAB PO SCH ×2 (08:22→20:31)
[2019-08-16] MEDS: POTASSIUM CHLORIDE 10 MEQ TABCR PO SCH (08:22)
[2019-08-16] MEDS: DOFETILIDE 125 MCG CAPSULE PO SCH ×2 (08:22→20:30)
--- NOTE | 2019-08-16 10:32 | Hospitalist Progress Note ---
Date of Service August 16, 2019 Assessment & Plan (1) Dyspnea on exertion: per Dr. Robin notes: Presented with dyspnea on exertion, No evidence of cardiac decompensation, volume status stable Chronic advanced COPD on home O2 No evidence of COPD exacerbation, no hypoxia, no wheeze or cough Patient's presenting symptoms possibly likely secondary to deconditioning, recent prolonged hospital stay, PT OT evaluation requested, appreciate input During physical therapy patient's overall endurance noted to be very poor resulting in shortness of breath/dyspnea on exertion Recommends short-term rehab Referral made to skilled facility at [facility]-does not have any beds available Discussed with patient, very reluctant to go to skilled rehab, feels her overall energy and endurance has improved since admission, prefers to return home with home health home PT --Wheezing resolved management noted below (2) Chronic diastolic CHF (congestive heart failure): (+) volume overload noted this weekend on Lasix 20mg po 3x/week, 2 days of Lasix 20 mg IV --Discussed with Dr. Burgess Recommend to increase Lasix 20 mg p.o. to daily, continue spironolactone 12.5 mg p.o. daily continue usual daily Aldactone Monitor (3) Palpitations: on admission She reports of subjective feeling of palpitation, possibly for due to deconditioning symptom has resolved remains in sinus with rate controlled with Tikosyn no arrhythmia noted in telemetry Telemetry D/yue (4) Paroxysmal atrial fibrillation: hx of paroxysmal Afib intolerant of sotalol in past was changed to Tykosin in last admission She remains in sinus rhythm with rate controlled with Tikosyn and metoprolol Appreciate cardiology inputs, -Symptoms may be due to deconditioning from recent prolonged admission; rehab was offered however patient declined -Cardiology consult appreciated, no change in medication needed -Anticoagulated on Xarelto, continued (5) Cor pulmonale, chronic: due to severe COPD leading to Pulm HTN on home 02 , respiratory status improved to baseline management as per #1 (6) CKD (chronic kidney disease), stage III: Baseline creatinine ~1.0 -Presented with acute renal failure: Creatinine 1.3 Diuretics was kept on hold on admission Acute renal failure/ATN resolved, creatinine 0.8 with normal volume status --- monitor while on diuretics (7) DM type 2 (diabetes mellitus, type 2): -Hgb A1c 8.5 07/2019 -Hold oral agents and utilize NovoLog per protocol while hospitalized (8) COPD (chronic obstructive pulmonary disease): -No signs of acute exacerbation, no wheezing on exam Anemia History of chronic anemia with intermittent lower GI bleed secondary to internal hemorrhoids, rectal prolapse H&H remained stable Patient will need outpatient follow-up with colorectal surgery( Rectal Prolapse ) -- (+) rectal bleed recurrence resolved Hg stable -- Proctozone ordered (9) Hypothyroidism: -Continue levothyroxine DVT prophylaxis on Xarelto Disposition anticipate d/c home with home health services when medically stable Subjective Follow-up for CHF Seen resting in bed, comfortable, not in distress States she feels improved today compared to yesterday, dyspnea resolving No rectal bleeding No other symptoms Review of Systems Review of Systems: All systems reviewed & are unremarkable except as noted in HPI & below Physical Exam Physical Exam: General- oriented x 3, not in distress, speaks in sentences with no effort or accessory muscle use Eyes- anicteric Neck- no JVD Lungs- clear breath sounds bilaterally, no wheezing Heart- normal rate, regular rhythm; no murmurs Abdomen- normal bowel sounds, nondistended, soft, nontender Extremities-trace pretibial edema, no calf tenderness Neuro- alert, oriented x 3; no gross focal neurologic deficits Skin- warm & dry Results & Data Vital Signs (Past 12 Hours) Vital Signs Temp Pulse Resp BP Pulse Ox 08/16/19 07:25 36.8 C 78 20 107/61 96 08/15/19 23:54 36.8 C 74 20 96/51 L 97 (1) COPD (chronic obstructive pulmonary disease) COPD type: unspecified COPD Qualified Code(s): J44.9 - Chronic obstructive pulmonary disease, unspecified
[2019-08-16 11:27] LABS: BUN Creatinine Ratio 9.6 (10-20); Creatinine Clr Calc Pharmacy 68.9 ml/min; Est GFR (African American) 66.8; Est GFR (Non-African American) 57.6
[2019-08-16] MEDS: FUROSEMIDE 20 MG TAB PO SCH (12:04)
[2019-08-16] MEDS: POLYETHYLENE (MIRALAX) 17 GM PACK PO PRN (19:12)
[2019-08-16] MEDS: SPIRONOLACTONE 25 MG TAB PO SCH (20:30)
[2019-08-16] MEDS: RIVAROXABAN 20 MG TAB PO SCH (20:30)
[2019-08-16] MEDS: DOCUSATE SODIUM/SENNA 50/8.6MG TAB PO SCH (20:31)
[2019-08-16] MEDS: OXYCODONE HCL IR 5 MG TAB (IMMEDIATE RELEASE) PO PRN (21:44)
[2019-08-16] MEDS: CYCLOBENZAPRINE HCL 5 MG TAB PO PRN (21:57)
[2019-08-17] MEDS: LEVOTHYROXINE SODIUM 150 MCG TABLET PO SCH (05:42)
[2019-08-17] MEDS: ACETAMINOPHEN 325 MG TAB PO PRN (05:42)
[2019-08-17] MEDS: PREMARIN VAG CRM 14 APPLN/30 GM TUBE PV SCH (08:16)
[2019-08-17] MEDS: INSULIN ASPART 100 UNITS/ML 3 ML PEN SC SCH ×2 (08:16→12:11)
[2019-08-17] MEDS: DOCUSATE SODIUM 100 MG CAP PO SCH (08:17)
[2019-08-17] MEDS: METOPROLOL SUCC 25MG EXT REL TAB PO SCH (08:17)
[2019-08-17] MEDS: MAGNESIUM OXIDE 400 MG TAB PO SCH (08:17)
[2019-08-17] MEDS: DOFETILIDE 125 MCG CAPSULE PO SCH (08:17)
[2019-08-17] MEDS: OXYCODONE HCL 15 MG TABCR (OXYCONTIN) PO SCH (08:17)
[2019-08-17] MEDS: FUROSEMIDE 20 MG TAB PO SCH (08:18)
[2019-08-17] MEDS: POTASSIUM CHLORIDE 10 MEQ TABCR PO SCH (08:20)
[2019-08-17] MEDS: POLYETHYLENE (MIRALAX) 17 GM PACK PO SCH (08:54)
--- NOTE | 2019-08-17 10:09 | Hospitalist Progress Note ---
Date of Service August 17, 2019 Assessment & Plan (1) Dyspnea on exertion: per Dr. Robin notes: Presented with dyspnea on exertion, No evidence of cardiac decompensation, volume status stable Chronic advanced COPD on home O2 No evidence of COPD exacerbation, no hypoxia, no wheeze or cough Patient's presenting symptoms possibly likely secondary to deconditioning, recent prolonged hospital stay, PT OT evaluation requested During physical therapy patient's overall endurance noted to be very poor resulting in shortness of breath/dyspnea on exertion Recommends short-term rehab Referral made to skilled facility at [facility]-does not have any beds available Discussed with patient, very reluctant to go to skilled rehab, feels her overall energy and endurance has improved since admission, prefers to return home with home health home PT -- discharge to home with home health services (2) Chronic diastolic CHF (congestive heart failure): (+) volume overload noted during latter part of patient's admission on Lasix 20mg po 3x/week, Spironolactone daily -- given 2 days of Lasix 20 mg IV --Discussed with Dr. Burgess- Studio Model Recommend to increase Lasix 20 mg p.o. to daily, continue spironolactone 12.5 mg p.o. daily continue usual daily Aldactone -- repeat BMP on ff up with PCP this week Cardiology to arrange early ff up with Cardiology Clinic for re-evaluation (3) Palpitations: on admission She reports of subjective feeling of palpitation, possibly for due to deconditioning symptom has resolved remains in sinus with rate controlled with Tikosyn no arrhythmia noted in telemetry (4) Paroxysmal atrial fibrillation: hx of paroxysmal Afib intolerant of sotalol in past was changed to Tykosin during last admission She remains in sinus rhythm with rate controlled with Tikosyn and metoprolol -Cardiology consult appreciated, no change in medication needed -Anticoagulated on Xarelto, continued (5) Cor pulmonale, chronic: due to severe COPD leading to Pulm HTN on home 02 , respiratory status improved to baseline management as per #1 (6) CKD (chronic kidney disease), stage III: Baseline creatinine ~1.0 -Presented with acute renal failure: Creatinine 1.3 Acute renal failure/ATN resolved, creatinine 0.8 with normal volume status --- monitor while on diuretics Discussed with Dr. Jenifer- Studio Model Recommend to increase Lasix 20 mg p.o. to daily, continue spironolactone 12.5 mg p.o. daily continue usual daily Aldactone -- repeat BMP on ff up with PCP this week (7) DM type 2 (diabetes mellitus, type 2): -Hgb A1c 8.5 07/2019 -continue home regimen for now ff up with PCP closely (8) COPD (chronic obstructive pulmonary disease): -No signs of acute exacerbation, no wheezing on exam Anemia History of chronic anemia with intermittent lower GI bleed secondary to internal hemorrhoids, rectal prolapse H&H remained stable Patient will need outpatient follow-up with colorectal surgery( Rectal Prolapse ) -- (+) rectal bleed recurrence, secondary to hemorrhoids resolved Hg stable -- GI consulted: recommend Proctozone BID PRN (9) Hypothyroidism: -Continue levothyroxine DVT prophylaxis on Xarelto Disposition d/c home with home health services FOLLOW UP WITH PCP OUTLINED IN D/C INSTRUCTION FOLLOW UP WITH RETAIL STOCKER SCHEDULED FOLLOW UP WITH PATIENT CARE REPRESENTATIVE IN 2 WEEKS Subjective ff up for weakness, CHF seen resting in bed, comfortable states she feels better overall denies shortness of breath no rectal bleeding was constipated yesterday, (+) BMs today denies abdominal pain denies other symptoms states she is ready for discharge today Review of Systems Review of Systems: All systems reviewed & are unremarkable except as noted in HPI & below Physical Exam Physical Exam: General- oriented x 3, not in distress, speaks in sentences with no effort or accessory muscle use Eyes- anicteric Neck- no JVD Lungs- clear breath sounds bilaterally, NO WHEEZING, NO RALES Heart- normal rate, regular rhythm; no murmurs Abdomen- normal bowel sounds, nondistended, soft, nontender Extremities- no lower leg/pedal edema, no calf tenderness Neuro- alert, oriented x 3; no gross focal neurologic deficits Skin- warm & dry Results & Data Vital Signs (Past 12 Hours) Vital Signs Temp Pulse Resp BP BP Pulse Ox 08/17/19 07:30 36.7 C 76 20 99/48 L 97 08/16/19 23:45 36.9 C 54 L 18 109/55 L 95 (1) COPD (chronic obstructive pulmonary disease) COPD type: unspecified COPD Qualified Code(s): J44.9 - Chronic obstructive pulmonary disease, unspecified
--- NOTE | 2019-08-17 10:31 | Discharge Summary ---
Date of Service August 17, 2019 Admission HPI Per Admitting Provider 74-year-old female who presents the ED for evaluation of palpitations and shortness of breath. Patient recently admitted to [facility] 07/19 through 07/30 for generalized weakness and paroxysmal atrial for ablation. Symptoms were felt to be secondary to sotalol use. Patient was evaluated by cardiology and patient was started on Tikosyn and metoprolol was added. Diuretics were also reduced. Patient reports that since returning home, she is having shortness of breath and palpitations with minimal exertion. She has a home heart rate monitor and pulse ox. Reports occasional readings of oxygen saturations in the 80s and heart rates in the 110s and irregular. Patient denies chest pain. Reports weights have been stable. She denies any lower extremity edema or orthopnea. She reports lightheadedness and dizziness however denies any syncopal event. Reports her appetite has been poor however denies nausea, vomiting, diarrhea, abdominal pain. No fevers or chills. She denies any urinary symptoms. Of note, patient reports that she was not able to participate in therapy while admitted due to medication she was receiving and testing being completed. She was offered rehab at discharge however patient declined. In the ED, patient's work-up is unremarkable. She has remained in NSR. She does not appear to be volume overloaded. When patient was ambulated, she became short of breath unable to speak in full sentences with minimal exertion. She was given Lasix 20 mg IV. Admission Exam Per Admitting Provider Constitutional: WD/WN, vitals as above + obese Eyes: PERRL, conjunctivae normal, anicteric sclerae ENMT: external ear and nose normal, oropharynx normal Respiratory: normal respiratory effort, lungs clear to auscultation Cardiovascular: Rate/Rhythm: regular rate and regular rhythm Vessels: normal peripheral pulses Extremities: + edema (Trace edema BLE) Gastrointestinal (Abdomen): normal bowel sounds, soft, nontender, no hepatosplenomegaly Musculoskeletal: no cyanosis or clubbing, extremities motor strength 5/5 Skin: no rashes, warm and dry Neurologic: PERRL, EOMI, accommodation nl, no face palsy, no dysarthria Psychiatric: A+Ox3, euthymic affect Principal Diagnosis DECONDITIONING FROM RECENT ADMISSION; CHRONIC DIASTOLIC CONGESTIVE HEART FAILURE; BLEEDING HEMORRHOIDS Discharge Exam General- oriented x 3, not in distress, speaks in sentences with no effort or accessory muscle use Eyes- anicteric Neck- no JVD Lungs- clear breath sounds bilaterally, NO WHEEZING, NO RALES Heart- normal rate, regular rhythm; no murmurs Abdomen- normal bowel sounds, nondistended, soft, nontender Extremities- no lower leg/pedal edema, no calf tenderness Neuro- alert, oriented x 3; no gross focal neurologic deficits Skin- warm & dry Discharge Data Allergies Allergy/AdvReac Type Severity Reaction Status Date / Time arformoterol Allergy Severe TACHYCARDIA Unverified 08/04/19 16:35 aspirin Allergy Severe HIVES, SOB Verified 08/04/19 16:35 ciprofloxacin Allergy Severe Unknown Verified 08/04/19 16:35 clarithromycin [From Biaxin] Allergy Severe Unknown Verified 08/04/19 16:35 Iodinated Contrast Media Allergy Severe "CAUSED Verified 08/04/19 16:35 ASTHMA ATTACK" metaproterenol [From Alupent] Allergy Severe Unknown Verified 08/04/19 16:35 metformin [From Riomet] Allergy Severe Unknown Verified 08/04/19 16:35 NSAIDS (Non-Steroidal Allergy Severe Hives Verified 08/04/19 16:35 Anti-Inflamma Penicillins Allergy Severe SOB, HIVES Verified 08/04/19 16:35 pioglitazone [From Actos] Allergy Severe Unknown Verified 08/04/19 16:35 Sulfa (Sulfonamide Allergy Severe Anaphylaxis Verified 08/04/19 16:35 Antibiotics) tiotropium Allergy Severe Unknown Verified 08/04/19 16:35 [From Spiriva with HandiHaler] aspartame Allergy Intermediate HIVES, Verified 08/04/19 16:35 ITCHY chlorhexidine Allergy Intermediate BLISTERY Verified 08/04/19 16:35 RASH ipratropium Allergy Mild SHORTNESS Verified 08/04/19 16:35 OF BREATH povidone Allergy Mild BLISTER Verified 08/04/19 16:35 WITH TAPE fish derived Allergy Unknown Unknown Verified 08/04/19 16:35 meperidine AdvReac Intermediate Gastrointestinal Verified 08/04/19 16:35 Upset morphine AdvReac Intermediate Gastrointestinal Verified 08/04/19 16:35 Upset adhesive AdvReac Mild BLISTERS Verified 08/04/19 16:35 WITH TAPE Consultations 08/04/19 17:46 ED Decision to Admit Stat 08/04/19 20:15 Consult Cardiology Routine Consult Case Management - Discharge Planning Routine 08/13/19 09:15 Consult Gastroenterology Routine Hospital Course (1) Dyspnea on exertion: SECONDARY TO DECONDITIONING per Dr. Robin notes: Presented with dyspnea on exertion, No evidence of cardiac decompensation, volume status stable Chronic advanced COPD on home O2 No evidence of COPD exacerbation, no hypoxia, no wheeze or cough Patient's presenting symptoms possibly likely secondary to deconditioning, recent prolonged hospital stay, PT OT evaluation requested During physical therapy patient's overall endurance noted to be very poor resulting in shortness of breath/dyspnea on exertion Recommends short-term rehab Referral made to skilled facility at [facility]-does not have any beds available Discussed with patient, very reluctant to go to skilled rehab, feels her overall energy and endurance has improved since admission, prefers to return home with home health home PT -- discharge to home with home health services (2) Chronic diastolic CHF (congestive heart failure): during recent admission earlier this month, diuretics increased to:Lasix 20mg po 3x/week, Spironolactone daily (+) volume overload noted during latter part of patient's admission -- given 2 days of Lasix 20 mg IV --Discussed with Dr. Burgess- Water Purifier Recommend to increase Lasix 20 mg p.o. to daily, continue spironolactone 12.5 mg p.o. daily -- repeat BMP on ff up with PCP this week Cardiology to arrange early ff up with Cardiology Clinic for re-evaluation (3) Bleeding hemorrhoids: Bleeding Hemorrhoids History of chronic anemia with intermittent lower GI bleed secondary to internal hemorrhoids, rectal prolapse -- (+) rectal bleed recurrence, secondary to hemorrhoids resolved Hg stable~10 -- GI consulted: recommend Proctozone BID PRN per GI: - Continue stool softeners/laxatives to prevent constipation - May continue TUCKS wipes, or use soft moist cloth to clean rectal area prn. - Sitz bath if having hemorrhoidal bleeding - May try again Hydrocortisone 25mg ID cream BID prn hemorrhoidal bleed; she cannot retain suppository well - Upon DC she should have f/u colonoscopy (last colonoscopy in 2004, brother w hx of colon ca) and Colorectal Surgery appt (4) Palpitations: reports of subjective feeling of palpitations symptom has resolved remains in sinus with rate controlled with Tikosyn no arrhythmia noted in telemetry (5) Paroxysmal atrial fibrillation: hx of paroxysmal Afib intolerant of sotalol in past was changed to Tykosin during recent admission She remains in sinus rhythm with rate controlled with Tikosyn and metoprolol -Anticoagulated on Xarelto -Cardiology consulted: no change in medication regimen recommended (6) Cor pulmonale, chronic: due to severe COPD leading to Pulm HTN on home 02 , respiratory status improved to baseline management as per #1 (7) CKD (chronic kidney disease), stage III: Baseline creatinine ~1.0 -Presented with acute renal failure: Creatinine 1.3 Acute renal failure/ATN resolved, creatinine 0.8 with normal volume status Discussed with Dr. Burgess- Water Purifier Recommend to increase Lasix 20 mg p.o. to daily, continue spironolactone 12.5 mg p.o. daily continue usual daily Aldactone -- repeat BMP on ff up with PCP this week (8) DM type 2 (diabetes mellitus, type 2): -Hgb A1c 8.5 07/2019 -continue home regimen for now ff up with PCP closely (9) COPD (chronic obstructive pulmonary disease): -No signs of acute exacerbation, no wheezing on exam (10) Hypothyroidism: -Continue levothyroxine Disposition d/c home with home health services FOLLOW UP WITH PCP OUTLINED IN D/C INSTRUCTIONS FOLLOW UP WITH SUPPLY PERSON SCHEDULED FOLLOW UP WITH GLASS CUTTER HELPER IN 2 WEEKS Total Time Total Time Spent Total Time Spent (In Minutes): 60 minutes Discharge Plan Discharge Items Patient Disposition: Home - Home Health Services Reason For Visit: [place],PALPITATIONS Discharge Diagnosis: AMBULATORY DYSFUNCTION CHRONIC CONGESTIVE HEART FAILURE WITH DIASTOLIC DYSFUNCTION BLEEDING HEMORRHOIDS Activity: As commented below Activity Comment: CONTINUE PHYSICAL THERAPY AT HOME, NO HEAVY EXERTION Lifting: Wait until after follow-up appointment Exercise/Sports: Wait until after follow-up appointment Driving/Machine Use: NO DRIVING Non-emergency contact: Primary Care Provider and Water Purifier Call non-emergency contact if: you have any medication questions, your symptoms worsen and you have a fever Diet: Carb Consistent or DM2 and Heart Healthy Addtl Attending Provider Instructions: YOUR MEDICATION CHANGES: INCREASE LASIX 20MG FROM 3X A WEEK TO DAILY PROCTOZONE CREAM TWICE A DAY NEEDED FOR RECTAL BLEEDING - Continue stool softeners/laxatives to prevent constipation - May continue TUCKS wipes, or use soft moist cloth to clean rectal area prn. - Sitz bath if having hemorrhoidal bleeding FOLLOW UP WITH PRIMARY CARE PHYSICIAN DR. GWENDOLYN KRUSE (ASSOCIATE OF DR. ROBERTS) ON TUESDAY AUGUST 20, 2019 AT 11:45AM. FOLLOW UP WITH [facility] IN 1 WEEK. THE CLINIC WILL BE CALLING YOU FOR THE APPOINTMENT. PLEASE CALL THEIR OFFICE IF YOU HAVE NOT RECEIVED A CALL FROM THEM IN 1-2 DAYS. FOLLOW UP WITH [facility] GLASS CUTTER HELPER IN 2-3 WEEKS. YOU WILL NEED TO SCHEDULED FOR A COLONOSCOPY. PLEASE CALL THEIR OFFICE FOR AN APPOINTMENT. INCREASE FIBER IN YOUR DAILY DIET- FRUITS, VEGETABLES. Call your Primary Care doctor if any of the following symptoms or problems start or get worse: Shortness of breath or difficulty breathing Wake up at night short of breath Chest pain Cough Swelling of your hands, feet, or legs More fatigued or tired with your normal activity Palpitations - sudden fast heart beats WEIGHT Weigh yourself every morning after using the bathroom. Use the same scale. Wear the same amount of clothing. Write your weight down on a chart. Call your Primary Care doctor if you gain more than 2-3 pounds in 1-2 days. MEDICATIONS Use this discharge instruction sheet for medication instructions. Take your medications at the time your doctor ordered. Do not skip a dose of your medicines. If you miss a dose of medicine, take it as soon as possible, but DO NOT DOUBLE A DOSE. Read your medicine information when you get home. Know all of the side effects of your medicine. If in doubt, ask your pharmacist Call your Primary Care doctor's office if you have any side effects. Be sure all of your doctors know what medicine and herbs you take (including cold, flu, and herbal medicine). Take the following with you to your follow-up doctor appointments: Weight Chart Medication List List of questions Do not drink excessive alcohol, beer or wine.. Who to Call and When: Call 911 or go to the Emergency Room if: If at any time you feel your situation is an emergency You have tightness or pain in your chest that does not go away with rest or Nitroglycerin You are very short of breath even with rest. CALL PRIMARY CARE PHYSICIAN OR RETURN TO THE ER IMMEDIATELY IF WITH RECURRENCE/WORSENING OF SYMPTOMS. Pending Studies at Discharge: Yes Studies:: YOU NEED TO HAVE REPEAT BLOODWORK- BASIC METABOLIC PROFILE- ON FOLLOW UP WITH YOUR PRIMARY CARE PHYSICIAN THIS WEEK. YOU NEED TO BE SCHEDULED FOR A COLONOSCOPY- PLEASE CALL THE GASTROENTEROLOGY CLINIC (CONTACT INFO NOTED ABOVE). YOU NEED TO BE REFERRED TO A COLORECTAL SURGEON. PRIMARY CARE PHYSICIAN/GI SPECIALIST CAN ARRANGE THIS. Stand-Alone Forms: [facility] Medications and DC Order Prescriptions: New hydrocortisone [Proctosol HC] 2.5 % Cream With Perineal Applicator 1 applic EXT BID PRN (Reason: hemorrhoids) Qty: 30 RF: 2 magnesium oxide 400 mg (241.3 mg magnesium) Tablet 400 mg PO BID 30 Days Qty: 60 RF: 2 furosemide 20 mg Tablet 20 mg PO DAILY 30 Days Qty: 30 RF: 2 Continued levothyroxine 150 mcg capsule 150 mcg PO QAM RF: 0 albuterol sulfate [Ventolin HFA] 90 mcg/actuation HFA aerosol inhaler 2 puff INHALATION Q6H PRN (Reason: Shortness Of Breath Or Wheezing) Qty: 3 RF: 1 docusate sodium [Colace] 100 mg Capsule 100 mg PO DAILY RF: 0 spironolactone 25 mg tablet 12.5 mg PO HS RF: 0 metformin [Glucophage XR] 500 mg tablet extended release 24 hr 500 mg PO QAM RF: 0 potassium chloride [Klor-Con M10] 10 mEq tablet,ER particles/crystals 10 meq PO QAM RF: 0 cyclobenzaprine 10 mg Tablet 5 - 10 mg PO BID PRN (Reason: Muscle Spasm) RF: 0 albuterol sulfate 2.5 mg /3 mL (0.083 %) Solution For Nebulization 2.5 mg INHALATION Q4H PRN (Reason: Shortness Of Breath Or Wheezing) RF: 0 meclizine 25 mg Tablet 25 mg PO TID PRN (Reason: Dizziness) RF: 0 Premarin 0.625 mg/gram Cream 1 applic Topical 3XWK RF: 0 oxycodone 10 mg Tablet 10 mg PO Q4H PRN (Reason: Pain) RF: 0 Xarelto 20 mg tablet 20 mg PO QPM RF: 0 dofetilide [Tikosyn] 125 mcg Capsule 250 mcg PO BID 30 Days Qty: 120 RF: 0 metoprolol succinate 25 mg Tablet Extended Release 24 Hr 25 mg PO BID 30 Days Qty: 60 RF: 3 sennosides-docusate sodium [Senokot-S] 8.6-50 mg Tablet 2 tab PO HS 30 Days Qty: 0 RF: 0 oxycodone [OxyContin] 60 mg Tablet Extended Release 12hr 30 mg PO Q12H Qty: 0 RF: 0 Discontinued magnesium sulfate 100 mg Capsule 200 mg PO BID RF: 0 hydrocortisone acetate [Anucort-HC] 25 mg suppository 25 mg ID BID PRN (Reason: Hemorrhoids) RF: 0 hydrocortisone acetate 1 % Cream 1 applic TOPICAL BID PRN (Reason: Hemorrhoids) RF: 0 Discharge Orders: Discharge Order (Routine); Ordered 08/17/19 Ordered By: Masood Rushing Admission Data Admit Date/Time: 08/05/19 18:15 Attending Provider: Masood Rushing Admit Provider: Can Ralph Primary Care Provider: Mendez Roberts Other Providers: Can Ralph ; Beto Giordano ; Maeve Robin ; [facility] ; Jason Osborn
[2019-08-17] MEDS: OXYCODONE HCL IR 5 MG TAB (IMMEDIATE RELEASE) PO PRN (13:55)
[2019-08-17] MEDS: CYCLOBENZAPRINE HCL 5 MG TAB PO PRN (15:59)
== END 2019-08-17 16:09 | disposition home health service (06) | DRG 204 ==
LOC: 2N 14:26 → ED 14:26 → SUATTDRO 18:25 → 2N 18:54 → SUATTDRO 08-05 18:15

== ENCOUNTER 2020-07-22 11:55 | Observation (INO) ==
[2020-07-22] MEDS ORDERED: SODIUM CHLORIDE 0.9% 1000ML 1,000 ML IV SCH (12:30)
[2020-07-22] MEDS ORDERED: SODIUM CHLORIDE 0.9% 500 ML IV SCH (12:30)
[2020-07-22 13:04] LABS: Eosinophils # (auto) 0.05 K/uL (0-0.5); Eosinophils % (auto) 0.5 %; Hemoglobin 12.9 g/dL (12.0-16.0); Immature Granulocytes # (auto) 0.05 K/uL (0.00-0.02); Immature Granulocytes % (auto) 0.5 %; Lymphocytes # (auto) 1.32 K/uL (1.2-3.4); Mean Corpuscular Hemoglobin 28.4 pg (25-34); Mean Corpuscular Hgb Conc 32.3 g/dL (32-36); Mean Corpuscular Volume 87.9 fL (80-100); Mean Platelet Volume 10.7 fL (7.4-10.4); Monocytes # (auto) 0.88 K/uL (0.11-0.59); Monocytes % (auto) 8.6 %; Neutrophils # (auto) 7.89 K/uL (1.4-6.5); Neutrophils % (auto) 77.4 %; Platelet Count 148 K/uL (130-400); RDW Coefficient of Variation 13.8 % (11.5-14.5); RDW Standard Deviation 44.4 fL (36.4-46.3); Red Blood Count 4.55 M/uL (4.2-5.4); White Blood Count 10.19 K/uL (4.8-10.8)
--- NOTE | 2020-07-22 13:17 | CT Scan Report ---
CT SCAN OF THE ABDOMEN AND PELVIS WITHOUT CONTRAST CLINICAL HISTORY: urinary symptoms, lower abd pain COMPARISON STUDY: 01/04/2017 TECHNIQUE: CT scan of the abdomen and pelvis was performed from the lung bases to the proximal femurs . Images are reviewed in the axial, sagittal, and coronal planes. IV contrast was not administered fo r this examination. A dose lowering technique was utilized adhering to the principles of ALARA. CT DOSE: 1811.32 mGy.cm FINDINGS: Lower chest: There are left lower lobe and lingular atelectatic changes. There is a small hiatal katerina ia Liver: The unenhanced liver is normal in size, contour, and attenuation. There is no intrahepatic brissa iary ductal dilatation. Gallbladder: Surgically absent Spleen: Normal in size and attenuation. Pancreas: There is fatty atrophy the pancreas. No suspicious masses are visualized. There is no ducta l dilatation. Adrenal glands: Unremarkable. Kidneys: No renal, ureteral, or bladder calculi are visualized. Bowel: There are no transition zones to indicate bowel obstruction. There are scattered colonic diver ticula present. There is no evidence of acute diverticulitis. By history the appendix is surgically a bsent. Peritoneum: There is no intraperitoneal free air or abdominal ascites. There is a tiny fat-containing umbilical hernia. Vasculature: The abdominal aorta is normal in course and caliber. Adenopathy: There is no pathologic adenopathy by size criteria. Pelvic viscera: The uterus is surgically absent. There is an indwelling Matos catheter. There is blad delmar wall thickening. Skeletal structures: Degenerative changes are present within the lumbar spine. There is lumbar spinal stenosis. No destructive lesions are visualized. IMPRESSION: 1. No evidence of bowel obstruction. No evidence of free air 2. No renal, ureteral, or bladder calculi identified. 3. Indwelling Maots catheter with bladder wall thickening ACT 112: Negative or not required by law. Electronically signed by: Edwin Licona M.D. 07/22/2020 1:15 PM
[2020-07-22 13:25] LABS: Appearance Urine Turbid (Clear); Bacteria Urine Automated 4+ (Negative); Bilirubin Urine Negative (Negative); Blood Urine 2+ (Negative); Color Urine Dark Yellow; Epithelial Cell Urine Auto >30 /lpf (0-5); Glucose Urine UA Negative (Negative); Ketones Urine Negative (Negative); Leukocyte Esterase Urine 3+ (Negative); Nitrite Urine Negative (Negative); Specific Gravity Urine 1.017 (1.000-1.030); Urobilinogen Urine Negative (Negative); WBC Urine Automated >30 /hpf (0-5)
[2020-07-22 13:31] LABS: Alanine Aminotransferase 24 U/L (12-78); Albumin Globulin Ratio 0.8 (0.9-2); Albumin Level 3.1 gm/dl (3.4-5.0); Alkaline Phosphatase 61 U/L (45-117); Aspartate Aminotransferase 12 U/L (15-37); BUN Creatinine Ratio 16.5 (10-20); Bilirubin,Total 0.7 mg/dl (0.2-1); Blood Urea Nitrogen 26 mg/dl (7-18); Calcium 9.3 mg/dl (8.5-10.1); Carbon Dioxide 33 mmol/L (21-32); Chloride 90 mmol/L (98-107); Creatinine Clr Calc Pharmacy 43.7 ml/min; Est GFR (African American) 37.5; Est GFR (Non-African American) 32.4; Globulin 3.7 gm/dl (2.5-4.0); Magnesium 2.1 mg/dl (1.8-2.4); Potassium 3.7 mmol/L (3.5-5.1); Sodium 130 mmol/L (136-145); Thyroid Stimulating Hormone 0.739 uIu/ml (0.300-4.500); Total Protein 6.8 gm/dl (6.4-8.2); Troponin I < 0.015 ng/ml (0-0.045)
[2020-07-22 13:35] LABS: Glucose 307 mg/dl (70-99)
[2020-07-22 13:40] LABS: Protein Urine 3+ (Negative); Sulfosalicylic Acid Urine Positive (Negative)
[2020-07-22 14:02] LABS: Beta-Hydroxybutyrate 1.27 mg/dl (0.2-2.81)
--- NOTE | 2020-07-22 14:13 | XRay Report ---
XR chest 1V portable CLINICAL HISTORY: weakness COMPARISON STUDY: 08/14/2019 FINDINGS: The heart is mildly enlarged. There is radiographic evidence of emphysema. There is stable left basilar atelectasis/scarring. There is no acute parenchymal consolidation. A left upper lung zon e density is felt to represent a summation with vascular markings and left second costochondral junct ion.[ IMPRESSION: 1. Mild cardiomegaly 2. Emphysema 3. Stable left basilar atelectasis/scarring 4. No acute findings ACT 112: Negative or not required by law. Electronically signed by: Edwin Licona M.D. 07/22/2020 2:11 PM
--- NOTE | 2020-07-22 14:18 | Emergency Department Note ---
Impression & Plan UTI (urinary tract infection), Weakness, STACY (acute kidney injury), Acute hyponatremia, Acute hyperglycemia ED Provider Note INFORMANT: Patient ED PROVIDER(S): Can Reyes MD CHIEF COMPLAINT: Weakness PLAN: Disposition: Admitted Condition: Good MEDICAL DECISION MAKING: Patient presented treatment for complaint of weakness and urinary symptoms. This is concerning for possible UTI. The patient had a Matos catheter placed. Urinalysis and blood work were obtained. The patient was found to have an unr emarkable CBC. She had mild hyponatremia and hyperglycemia on chemistry panel. Her troponin was negative. Her creatinine was mildly elevated at 1.57 but compared to prior this is significantly elevated concerning for acute kidney injury. CT imaging was performed. Her bladder appeared to be thickened. No other acute process was noted. The patient's urinalysis is very concerning for infection. ECG was performed and this showed a normal sinus rhythm at 71 bpm without any evidence of acute ischemia. I discussed the patient's UTI with the ED pharmacist. On record review it indicated that the patient should tolerate cephalosporins but has had a pseudomonal UTI in the past. Cefepime was chosen and this was administered. [facility] and the patient will be admitted by Dr. Garcia. Triage Nursing notes reviewed and agree them. Additional history obtained from family. Prior medical records reviewed regarding prior infections as noted above. Vital Signs: reviewed and remarkable for no significant abnormalities Differential diagnosis: Infection, dehydration, metabolic abnormality, hypo/hyperglycemia, electrolyte disturbance, anemia, hypoxia, cardiac sources, intracerebral event, toxicologic, neurologic, as well as other pathologies. Diagnostics interpreted by me: ECG: Twelve-lead ECG reveals normal sinus rhythm at 71 bpm. There is a nonspecific ST change present. no elevation or depression. Normal axis and QRS. Cardiac Monitoring: Cardiac monitoring ordered by me: The patient was placed on continuous cardiac monitoring and observed. It revealed a normal sinus rhythm at 78 beats per minute without ectopy or evidence of dysrhythmia. Imaging studies: CT scan as noted above. Thickened bladder wall. Matos present. No acute process otherwise. [facility] HPI: The patient is a 75 year old female who presents to the Emergency Room with complaints of weakness. This started over the last several days to approximately 1 week and is worsening. Patient states she cannot get out of bed as she is so weak. She is concerned about UTI. The patient also notes the following associated symptoms, dysuria and frequency. The patient has found no relieving factors. Current pain is rated as 4/10. Pt denies LOC, headache, fevers, chills, diaphoresis, visual changes, neck pain, chest pain, breathing difficulties, nausea, vomiting, back pain, melena, hematochezia, numbness, weakness, lymphadenopathy, rash, or other complaints. ROS: See above HPI for pertinent positives & negatives. A total of 10 systems reviewed and were otherwise negative. PAST MEDICAL HISTORY:See Below, UTI, DJD, TIA, diabetes, COPD PAST SURGICAL HISTORY:See Below, hysterectomy FAMILY HISTORY:See Below SOCIAL HISTORY:See Below, retired, lives with family. HOME MEDICATIONS:See Below ALLERGIES:See Below VITALS:See Below PHYSICAL EXAMINATION: GENERAL: Awake, alert, tired-appearing, in no distress HENT: Normocephalic, atraumatic. Oropharynx unremarkable. EYES: Normal conjunctiva. Sclera non-icteric. NECK: Inspection normal. Non-tender. Supple. No nuchal rigidity. FROM. No masses. RESPIRATORY: Clear to auscultation. No wheezes. No rales. Normal respiratory effort. CARDIAC: Normal rate. Normal rhythm. No murmurs. No rubs. Extremities warm and well perfused. Pulses equal. No JVD. GI: Soft, non-distended. Suprapubic tenderness to palpation. No rebound or guarding. No masses. RECTAL: Deferred. MUSCULOSKELETAL: Atraumatic. Chest examination reveals no tenderness. The back is symmetrical on inspection without obvious abnormality. There is no CVA tenderness to palpation. No joint edema. LOWER EXTREMITIES: Calves are equal size bilaterally and non-tender. 1+ edema. No discoloration. NEURO: Normal sensorium. No sensory or motor deficits noted. SKIN: No rash or jaundice noted. Can Reyes MD Past Med/Surg History Medical History Asthma Chronic anticoagulation Chronic diastolic CHF (congestive heart failure) Chronic respiratory failure with hypoxia CKD (chronic kidney disease), stage III COPD (chronic obstructive pulmonary disease) Cor pulmonale, chronic DM type 2 (diabetes mellitus, type 2) Dyslipidemia History of TIA (transient ischemic attack) Hypothyroidism ZEYAD (obstructive sleep apnea) Paroxysmal atrial fibrillation Surgical History H/O arthroscopic knee surgery History of appendectomy History of cataract surgery History of cholecystectomy History of hysterectomy Family History Father Asthma Lung cancer Mother Diabetes Heart disease Brother Colon cancer Daughter Diabetes Brother Stroke Social History Smoking Status: Former smoker Second Hand Exposure: No; Hx Alcohol Use: No Hx Substance Use: No Preferred Language: Luxembourgish Communication Ability: Effective Egg Buyer Required: No Beliefs That Will Affect Care: None marital status: Current Living Situation: Family Current Living Situation Comment: lives with son Feels Safe at Home: Yes Assistive Devices: Oxygen - Continuous Allergies Allergies Allergy/AdvReac Type Severity Reaction Status Date / Time arformoterol Allergy Severe TACHYCARDIA Verified 07/22/20 15:21 aspirin Allergy Severe HIVES, SOB Verified 07/22/20 15:21 ciprofloxacin Allergy Severe Unknown Verified 07/22/20 15:21 clarithromycin [From Biaxin] Allergy Severe Unknown Verified 07/22/20 15:21 Iodinated Contrast Media Allergy Severe "CAUSED Verified 07/22/20 15:21 ASTHMA ATTACK" metaproterenol [From Alupent] Allergy Severe Unknown Verified 07/22/20 15:21 metformin [From Riomet] Allergy Severe Unknown Verified 07/22/20 15:21 NSAIDS (Non-Steroidal Allergy Severe Hives Verified 07/22/20 15:21 Anti-Inflamma Penicillins Allergy Severe SOB, HIVES Verified 07/22/20 15:21 pioglitazone [From Actos] Allergy Severe Unknown Verified 07/22/20 15:21 sotalol Allergy Severe increased Verified 07/22/20 15:21 breathing problems Sulfa (Sulfonamide Allergy Severe Anaphylaxis Verified 07/22/20 15:21 Antibiotics) tiotropium Allergy Severe Unknown Verified 07/22/20 15:21 [From Spiriva with HandiHaler] aspartame Allergy Intermediate HIVES, Verified 07/22/20 15:21 ITCHY chlorhexidine Allergy Intermediate BLISTERY Verified 07/22/20 15:21 RASH ipratropium Allergy Mild SHORTNESS Verified 07/22/20 15:21 OF BREATH povidone Allergy Mild BLISTER Verified 07/22/20 15:21 WITH TAPE fish derived Allergy Unknown Unknown Verified 07/22/20 15:21 meperidine AdvReac Intermediate Gastrointestinal Verified 07/22/20 15:21 Upset morphine AdvReac Intermediate Gastrointestinal Verified 07/22/20 15:21 Upset adhesive AdvReac Mild BLISTERS Verified 07/22/20 15:21 WITH TAPE Home Meds Home Medications Medication Instructions Recorded Confirmed Premarin 1 applic TOPICAL [id number] 07/24/18 07/22/20 meclizine 25 mg PO TID PRN 07/24/18 07/22/20 oxycodone 10 mg PO Q4H PRN 07/24/18 07/22/20 levothyroxine 150 mcg capsule 150 mcg PO QAM 06/17/19 07/22/20 Xarelto 20 mg PO QPM 07/19/19 07/22/20 metformin [Glucophage XR] 500 mg PO QAM 08/04/19 07/22/20 potassium chloride [Klor-Con M10] 10 meq PO QAM 08/04/19 07/22/20 spironolactone 12.5 mg PO HS 08/04/19 07/22/20 baclofen 10 mg tablet 5 mg PO BID PRN tab 08/28/19 07/22/20 dofetilide 125 mcg capsule 250 mcg PO Q12H cap 08/28/19 07/22/20 sennosides 8.6 mg-docusate sodium 1 tabcap PO BID PRN 08/28/19 07/22/20 50 mg tablet carvedilol 3.125 mg tablet 6.25 mg PO BID 09/16/19 07/22/20 furosemide 20 mg tablet 20 mg PO QAM 07/14/20 07/22/20 Zinc Tablets 1 tab PO QDL 07/22/20 07/22/20 cholecalciferol (vitamin D3) 25 mcg PO QDL 07/22/20 07/22/20 [Vitamin D3] docusate sodium [Colace] 100 mg PO UD 07/22/20 07/22/20 inulin-sorbitol 1 tab PO UD 07/22/20 07/22/20 multivitamin [One A Day Vitamin] 1 tab PO QDL 07/22/20 07/22/20 Previous Rx's Medication Instructions Recorded oxycodone [OxyContin] 30 mg PO Q12H #0 tab 07/30/19 hydrocortisone [Proctosol HC] 1 applic EXT BID PRN #30 gm 08/17/19 albuterol sulfate 90 mcg/actuation 2 puff INHALATION Q6H PRN #3 07/01/20 aerosol inhaler inhaler albuterol sulfate 2.5 mg INHALATION Q4H PRN #180 ml 07/14/20 Results & Data (ED) Vital Signs Vital Signs - 24 hr 07/22/20 11:49 07/22/20 15:05 07/22/20 15:07 Temperature 37.0 C Temperature Source Oral Pulse Rate 78 Pulse Rate [Finger] 81 Pulse Rhythm Regular Pulse Strength Normal Respiratory Rate 15 20 Respiratory Depth Normal Blood Pressure 154/62 H Blood Pressure [Right Arm] 114/76 Blood Pressure Mean 92 Blood Pressure Mean [Right Arm] 88 Blood Pressure Position Lying Pulse Oximetry 98 100 100 Oxygen Delivery Method Nasal Cannula Nasal Cannula Nasal Cannula Oxygen Flow Rate 3 3 3 Sepsis Recent Fever Within 48 Hours No Sepsis New/Unexplained Change in Mental Status N/A Sepsis Action Taken by Nursing No Action Required 07/22/20 15:52 Temperature Temperature Source Pulse Rate Pulse Rate [Finger] 80 Pulse Rhythm Pulse Strength Respiratory Rate 18 Respiratory Depth Blood Pressure Blood Pressure [Right Arm] 105/74 Blood Pressure Mean Blood Pressure Mean [Right Arm] 84 Blood Pressure Position Pulse Oximetry 99 Oxygen Delivery Method Room Air Oxygen Flow Rate Sepsis Recent Fever Within 48 Hours Sepsis New/Unexplained Change in Mental Status Sepsis Action Taken by Nursing Laboratory Data Result diagrams: 07/22/20 12:41 07/22/20 12:41 Lab Results 07/22/20 07/22/20 07/22/20 Range/Units 12:41 12:41 13:12 WBC 10.19 (4.8-10.8) K/uL RBC 4.55 (4.2-5.4) M/uL Hgb 12.9 (12.0-16.0) g/dL Hct 40.0 (37-47) % MCV 87.9 (80-100) fL MCH 28.4 (25-34) pg MCHC 32.3 (32-36) g/dL RDW Std Deviation 44.4 (36.4-46.3) fL RDW Coeff of [place] 13.8 (11.5-14.5) % Plt Count 148 (130-400) K/uL MPV 10.7 H (7.4-10.4) fL Immature Gran % (Auto) 0.5 % Neut % (Auto) 77.4 % Lymph % (Auto) 13.0 % [place] % (Auto) 8.6 % Eos % (Auto) 0.5 % Baso % (Auto) 0.0 % Neut # (Auto) 7.89 H (1.4-6.5) K/uL Lymph # (Auto) 1.32 (1.2-3.4) K/uL [place] # (Auto) 0.88 H (0.11-0.59) K/uL Eos # (Auto) 0.05 (0-0.5) K/uL Baso # (Auto) 0.00 (0-0.2) K/uL Immature Gran # (Auto) 0.05 H (0.00-0.02) K/uL Sodium 130 L (136-145) mmol/L Potassium 3.7 (3.5-5.1) mmol/L Chloride 90 L (98-107) mmol/L Carbon Dioxide 33 H (21-32) mmol/L Anion Gap 7.0 (3-11) BUN 26 H (7-18) mg/dl Creatinine 1.57 H (0.6-1.2) mg/dl Est Cr Clr Drug Dosing 43.7 ml/min Est GFR ( Amer) 37.5 Est GFR (Non-Af Amer) 32.4 BUN/Creatinine Ratio 16.5 (10-20) Glucose 307 H* (70-99) mg/dl POC Glucose (70-99) mg/dl Calcium 9.3 (8.5-10.1) mg/dl Magnesium 2.1 (1.8-2.4) mg/dl Total Bilirubin 0.7 (0.2-1) mg/dl AST 12 L (15-37) U/L ALT 24 (12-78) U/L Alkaline Phosphatase 61 (45-117) U/L Troponin I < 0.015 (0-0.045) ng/ml Total Protein 6.8 (6.4-8.2) gm/dl Albumin 3.1 L (3.4-5.0) gm/dl Globulin 3.7 (2.5-4.0) gm/dl Albumin/Globulin Ratio 0.8 L (0.9-2) Beta-Hydroxybutyric Acd 1.27 (0.2-2.81) mg/dl TSH 0.739 (0.300-4.500) uIu/ml Urine Color Dark Yellow Urine Appearance Turbid A (Clear) Urine pH 8.0 H (4.5-7.5) Ur Specific [place] 1.017 (1.000-1.030) Urine Protein 3+ H (Negative) Urine Glucose (UA) Negative (Negative) Urine Ketones Negative (Negative) Urine Blood 2+ H (Negative) Urine Nitrite Negative (Negative) Urine Bilirubin Negative (Negative) Urine Urobilinogen Negative (Negative) Ur Leukocyte Esterase 3+ H (Negative) Urine WBC (Auto) >30 H (0-5) /hpf Urine RBC (Auto) 10-30 H (0-4) /hpf U Hyaline Cast (Auto) 1-5 (0-5) /lpf U Epithel Cells (Auto) >30 H (0-5) /lpf Urine Bacteria (Auto) 4+ H (Negative) Urine Yeast Not Reportable 07/22/20 Range/Units 14:38 WBC (4.8-10.8) K/uL RBC (4.2-5.4) M/uL Hgb (12.0-16.0) g/dL Hct (37-47) % MCV (80-100) fL MCH (25-34) pg MCHC (32-36) g/dL RDW Std Deviation (36.4-46.3) fL RDW Coeff of [place] (11.5-14.5) % Plt Count (130-400) K/uL MPV (7.4-10.4) fL Immature Gran % (Auto) % Neut % (Auto) % Lymph % (Auto) % [place] % (Auto) % Eos % (Auto) % Baso % (Auto) % Neut # (Auto) (1.4-6.5) K/uL Lymph # (Auto) (1.2-3.4) K/uL [place] # (Auto) (0.11-0.59) K/uL Eos # (Auto) (0-0.5) K/uL Baso # (Auto) (0-0.2) K/uL Immature Gran # (Auto) (0.00-0.02) K/uL Sodium (136-145) mmol/L Potassium (3.5-5.1) mmol/L Chloride (98-107) mmol/L Carbon Dioxide (21-32) mmol/L Anion Gap (3-11) BUN (7-18) mg/dl Creatinine (0.6-1.2) mg/dl Est Cr Clr Drug Dosing ml/min Est GFR ( Amer) Est GFR (Non-Af Amer) BUN/Creatinine Ratio (10-20) Glucose (70-99) mg/dl POC Glucose 286 H (70-99) mg/dl Calcium (8.5-10.1) mg/dl Magnesium (1.8-2.4) mg/dl Total Bilirubin (0.2-1) mg/dl AST (15-37) U/L ALT (12-78) U/L Alkaline Phosphatase (45-117) U/L Troponin I (0-0.045) ng/ml Total Protein (6.4-8.2) gm/dl Albumin (3.4-5.0) gm/dl Globulin (2.5-4.0) gm/dl Albumin/Globulin Ratio (0.9-2) Beta-Hydroxybutyric Acd (0.2-2.81) mg/dl TSH (0.300-4.500) uIu/ml Urine Color Urine Appearance (Clear) Urine pH (4.5-7.5) Ur Specific [place] (1.000-1.030) Urine Protein (Negative) Urine Glucose (UA) (Negative) Urine Ketones (Negative) Urine Blood (Negative) Urine Nitrite (Negative) Urine Bilirubin (Negative) Urine Urobilinogen (Negative) Ur Leukocyte Esterase (Negative) Urine WBC (Auto) (0-5) /hpf Urine RBC (Auto) (0-4) /hpf U Hyaline Cast (Auto) (0-5) /lpf U Epithel Cells (Auto) (0-5) /lpf Urine Bacteria (Auto) (Negative) Urine Yeast Administered Medications Discontinued Medications Sodium Chloride (Nss) 500 mls @ 999 mls/hr IV .[id number] Stop: 07/22/20 13:00 Last Infusion: 07/22/20 13:34 Dose: 0 mls/hr Documented by: [id number] Admin: 07/22/20 13:02 Dose: 999 mls/hr Documented by: [id number] Cefepime HCl (Maxipime) 20 mls @ 5 mls/min IV NOW STA Stop: 07/22/20 14:28 Last Admin: 07/22/20 15:49 Dose: 5 mls/min Documented by: [id number] Insulin Human Regular (Novolin-R Insulin Per Unit Charge) 10 units IV NOW STA Stop: 07/22/20 14:52 Last Admin: 07/22/20 15:49 Dose: 10 units Documented by: [id number] Cosigned by: [id number] Discharge Plan Visit Data Chief Complaint: Illness Stated Complaint: General Illness ED Provider: Can Reyes Discharge Problem: UTI (urinary tract infection), Weakness, STACY (acute kidney injury), Acute hyponatremia, Acute hyperglycemia Discharge Instructions Interventions: ED Discharge Assessment Last Done: 07/22/20 15:57
[2020-07-22] MEDS ORDERED: CEFEPIME 20 ML IV STA (14:25)
[2020-07-22] MEDS ORDERED: NovoLIN-R INSULIN PER UNIT CHARGE IV STA (14:51)
--- NOTE | 2020-07-22 15:11 | History & Physical Report ---
Date of Service July 22, 2020 Assessment & Plan (1) UTI (urinary tract infection): This is a 75-year-old female who has significant past medical history of COPD with chronic respiratory failure on 3 L of O2, cor pulmonale, PAF anticoagulated on Xarelto, morbid obesity, T2DM, CKD stage III, HLD, hypothyroidism, ZEYAD intolerant to CPAP, history of TIA who presents to ED secondary to weakness in her feeling x1 week. Pt w/ complaints of prolapsed bladder, urinary incontinence, and UTI sx Admit to med/tele 2/ to UTI Bob placed in ED - eval daily and remove as soon as able continue IV cefepime, await urine and blood cultures gentled IVF 75cc/hr NSS +20meq KCL x 1 L consult PT/OT (2) Chronic respiratory failure with hypoxia: (3) COPD (chronic obstructive pulmonary disease): Chronic respiratory failure with hypoxia and hypercarbia secondary to COPD, cor pulmonale, CHF and possible OHS Continue O2 supplementation Continue albuterol nebulizer treatment (4) Paroxysmal atrial fibrillation: Rate and rhythm controlled on Tikosyn and Coreg Continue Xarelto, patient admits to not taking every day secondary to bleeding, last dose 07/21/2020 (5) DM type 2 (diabetes mellitus, type 2): With hyperglycemia, admitting glucose 307, repeat 286 Give IV regular insulin 10 units x 1 now Lantus/NovoLog per protocol Consult glycemic pharmacy, appreciate their input (6) CKD (chronic kidney disease), stage III: Baseline creatinine 1.2-1.5 BUN/creatinine 26 and 1.57 She does appear dehydrated and reports poor oral intake received 500 mL IVF in ED, start IVF 75cc/hr NSS +20meq KCL x 1 L re eval renal fxn in a.m., avoid nephrotoxic agents (7) Chronic diastolic CHF (congestive heart failure): Euvolemic, actually on dry side Continue Coreg Hold Lasix and potassium until volume status reevaluate in a.m. Continue cautiously with gentle IVF (8) Hypothyroidism: Continue levothyroxine TSH 0.739 (9) Ambulatory dysfunction: consult PT/OT given multiple chronic comorbidities question pt ability to be cared for at home case management consulted (10) Morbid obesity: BMI 48.2 encourage lifestyle and diet modifications (11) Chronic pain syndrome: 2/2 to Osteoarthritis and morbid obesity on Oxycontin 30mg Q12hr and and oxycodone 10mg q4h prn confirmed via PDMP (12) DVT prophylaxis: Xarelto Disposition: admit to med tele Follow up: PCP Dr. Swann upon discharge Pt was seen and examined in collaboration with Dr. Garcia, please see addendum History of Present Illness Chief Complaint: Weakness and ill feeling x 1 week. Primary Care Provider: Mendez Swann MD This is a 75-year-old female who has significant past medical history of COPD with chronic respiratory failure on 3 L of O2, cor pulmonale, PAF anticoagulated on Xarelto, morbid obesity, T2DM, CKD stage III, HLD, hypothyroidism, ZEYAD intolerant to CPAP, history of TIA who presents to ED secondary to weakness in her feeling x1 week. She elicits approximately 2 weeks ago she was very busy visiting her secondary to him being hospitalized. The ultimate result of her not taking care of herself. For the past week she admits to weakness, fatigue, ill feeling, increased pain, suprapubic abdominal pain, dysuria, increased urgency and frequency with urination. She does suffer from a prolapsed bladder which is been causing her increased incontinence. She is chronically short of breath, but denies any worsening. She complains of feeling chilled but denies any documented fever, sweats, chest pain, cough, hemoptysis, emesis, hematuria, melena, medication. Her last BM was approximately 1 week ago. She does admit to taking docusate. She has not been taking her medications as prescribed due to not feeling well. She lives at home with her who is also not well. He has had difficulty ambulating requiring assist device. She has had poor appetite over the past week and has not been eating or drinking well. In ED she was hemodynamically stable. Her CBC was generally unremarkable. CMP revealed sodium 130, but corrected 135, hyperglycemia 307, BUN 27, creatinine 1.57, CO2 33. UA concerning for infection with +3 leukocyte esterase and +4 bacteria. She did have significant epithelial cells questioning specimen. She received IV cefepime, 500 of IVF. Allergies Allergy/AdvReac Type Severity Reaction Status Date / Time arformoterol Allergy Severe TACHYCARDIA Verified 07/22/20 15:21 aspirin Allergy Severe HIVES, SOB Verified 07/22/20 15:21 ciprofloxacin Allergy Severe Unknown Verified 07/22/20 15:21 clarithromycin [From Biaxin] Allergy Severe Unknown Verified 07/22/20 15:21 Iodinated Contrast Media Allergy Severe "CAUSED Verified 07/22/20 15:21 ASTHMA ATTACK" metaproterenol [From Alupent] Allergy Severe Unknown Verified 07/22/20 15:21 metformin [From Riomet] Allergy Severe Unknown Verified 07/22/20 15:21 NSAIDS (Non-Steroidal Allergy Severe Hives Verified 07/22/20 15:21 Anti-Inflamma Penicillins Allergy Severe SOB, HIVES Verified 07/22/20 15:21 pioglitazone [From Actos] Allergy Severe Unknown Verified 07/22/20 15:21 sotalol Allergy Severe increased Verified 07/22/20 15:21 breathing problems Sulfa (Sulfonamide Allergy Severe Anaphylaxis Verified 07/22/20 15:21 Antibiotics) tiotropium Allergy Severe Unknown Verified 07/22/20 15:21 [From Spiriva with HandiHaler] aspartame Allergy Intermediate HIVES, Verified 07/22/20 15:21 ITCHY chlorhexidine Allergy Intermediate BLISTERY Verified 07/22/20 15:21 RASH ipratropium Allergy Mild SHORTNESS Verified 07/22/20 15:21 OF BREATH povidone Allergy Mild BLISTER Verified 07/22/20 15:21 WITH TAPE fish derived Allergy Unknown Unknown Verified 07/22/20 15:21 meperidine AdvReac Intermediate Gastrointestinal Verified 07/22/20 15:21 Upset morphine AdvReac Intermediate Gastrointestinal Verified 07/22/20 15:21 Upset adhesive AdvReac Mild BLISTERS Verified 07/22/20 15:21 WITH TAPE Home Medications Home Medications Medication Instructions Recorded Confirmed Type Premarin 1 applic TOPICAL [id number] 07/24/18 07/22/20 History meclizine 25 mg PO TID PRN 07/24/18 07/22/20 History oxycodone 10 mg PO Q4H PRN 07/24/18 07/22/20 History levothyroxine 150 mcg capsule 150 mcg PO QAM 06/17/19 07/22/20 History Xarelto 20 mg PO QPM 07/19/19 07/22/20 History oxycodone [OxyContin] 30 mg PO Q12H #0 tab 07/30/19 07/22/20 Rx metformin [Glucophage XR] 500 mg PO QAM 08/04/19 07/22/20 History potassium chloride [Klor-Con M10] 10 meq PO QAM 08/04/19 07/22/20 History spironolactone 12.5 mg PO HS 08/04/19 07/22/20 History hydrocortisone [Proctosol HC] 1 applic EXT BID PRN #30 gm 08/17/19 07/22/20 Rx baclofen 10 mg tablet 5 mg PO BID PRN tab 08/28/19 07/22/20 History dofetilide 125 mcg capsule 250 mcg PO Q12H cap 08/28/19 07/22/20 History sennosides 8.6 mg-docusate sodium 1 tabcap PO BID PRN 08/28/19 07/22/20 History 50 mg tablet carvedilol 3.125 mg tablet 6.25 mg PO BID 09/16/19 07/22/20 History albuterol sulfate 90 mcg/actuation 2 puff INHALATION Q6H PRN #3 07/01/20 07/22/20 Rx aerosol inhaler inhaler albuterol sulfate 2.5 mg INHALATION Q4H PRN #180 ml 07/14/20 07/22/20 Rx furosemide 20 mg tablet 20 mg PO QAM 07/14/20 07/22/20 History Zinc Tablets 1 tab PO QDL 07/22/20 07/22/20 History cholecalciferol (vitamin D3) 25 mcg PO QDL 07/22/20 07/22/20 History [Vitamin D3] docusate sodium [Colace] 100 mg PO UD 07/22/20 07/22/20 History inulin-sorbitol 1 tab PO UD 07/22/20 07/22/20 History multivitamin [One A Day Vitamin] 1 tab PO QDL 07/22/20 07/22/20 History Past Med/Surg History Medical History Asthma Chronic anticoagulation Chronic diastolic CHF (congestive heart failure) Chronic respiratory failure with hypoxia CKD (chronic kidney disease), stage III COPD (chronic obstructive pulmonary disease) Cor pulmonale, chronic DM type 2 (diabetes mellitus, type 2) Dyslipidemia History of TIA (transient ischemic attack) Hypothyroidism ZEYAD (obstructive sleep apnea) Paroxysmal atrial fibrillation Surgical History H/O arthroscopic knee surgery History of appendectomy History of cataract surgery History of cholecystectomy History of hysterectomy Family History Father Asthma Lung cancer Mother Diabetes Heart disease Brother Colon cancer Daughter Diabetes Brother Stroke Social History Smoking Status: Former smoker Second Hand Exposure: No; Hx Alcohol Use: No Hx Substance Use: No Preferred Language: [place]an Communication Ability: Effective Corporate Associate Attorney Required: No Beliefs That Will Affect Care: None marital status: Current Living Situation: Family Current Living Situation Comment: lives with son Feels Safe at Home: Yes Assistive Devices: Oxygen - Continuous Review of Systems Review of Systems: All systems reviewed & are unremarkable except as noted in HPI & below Physical Exam Physical Exam: Constitutional: Morbidly Obese, F, lying in bed, vitals as above, NAD, conversing easily Head: Normocephalic, Atraumatic Eyes: PERRL, conjunctivae normal, anicteric sclerae ENMT: external ear and nose normal, oropharynx normal Neck: trachea midline, no thyromegaly normal visual inspection dry mucous membranes Respiratory: diminished breath sounds 2/2 to body habitus, normal respiratory effort, lungs clear to auscultation, no wheeze, rales, rhonchi. Normal insp/exp effort, no accessory muscle use Cardiovascular: RRR, no murmur, trace edema Vessels: no JVD or carotid bruit Chest: normal inspection of chest Abdomen: obese Abd, normal bowel sounds, soft, nontender, no hepatosplenomegaly appreciated Musculoskeletal: no cyanosis or clubbing, extremities motor strength 5/5 Skin: no rashes, warm and dry normal turgor Neurologic: PERRL, EOMI, accommodation nl, no face palsy, no dysarthria CN's II-XI intact bilaterally and moves all extremities Psychiatric: A+Ox3, flat affect : +bob yellow urine Results & Data Results & Data ([facility]) Vital Signs (Past 12 Hours) Vital Signs Temp Pulse Resp BP Pulse Ox 07/22/20 11:49 37.0 C 78 15 154/62 H 98 Laboratory Results Short CBC 07/22/20 07/22/20 Range/Units 12:41 12:41 WBC 10.19 (4.8-10.8) K/uL Hgb 12.9 (12.0-16.0) g/dL Hct 40.0 (37-47) % Plt Count 148 (130-400) K/uL Carbon Dioxide 33 H (21-32) mmol/L TSH 0.739 (0.300-4.500) uIu/ml BMP 07/22/20 12:41 Sodium 130 L Potassium 3.7 Chloride 90 L Carbon Dioxide 33 H BUN 26 H Creatinine 1.57 H Glucose 307 H* Calcium 9.3 Cardiac Enzymes 07/22/20 Range/Units 12:41 Troponin I < 0.015 (0-0.045) ng/ml Liver Function 07/22/20 Range/Units 12:41 Total Bilirubin 0.7 (0.2-1) mg/dl AST 12 L (15-37) U/L ALT 24 (12-78) U/L Alkaline Phosphatase 61 (45-117) U/L Albumin 3.1 L (3.4-5.0) gm/dl Urine 07/22/20 Range/Units 13:12 Urine Color Dark Yellow Urine Appearance Turbid A (Clear) Urine pH 8.0 H (4.5-7.5) Ur Specific [place] 1.017 (1.000-1.030) Urine Protein 3+ H (Negative) Urine Glucose (UA) Negative (Negative) Diagnostic Findings CXR: IMPRESSION: 1. Mild cardiomegaly 2. Emphysema 3. Stable left basilar atelectasis/scarring 4. No acute findings CT abd/pelvis: IMPRESSION: 1. No evidence of bowel obstruction. No evidence of free air 2. No renal, ureteral, or bladder calculi identified. 3. Indwelling Bob catheter with bladder wall thickening Medications Administered Discontinued Medications Sodium Chloride (Nss) 500 mls @ 999 mls/hr IV .Q31M YELITZA Stop: 07/22/20 13:00 Last Infusion: 07/22/20 13:34 Dose: 0 mls/hr Documented by: [id number] Admin: 07/22/20 13:02 Dose: 999 mls/hr Documented by: [id number] ECG Rate (beats per minute): 71 Rhythm: normal sinus Additional Comments: t wave inversion v3-4 no chest pain Code Status & VTE Plan Code Status Conditional Code She does not want mechanical ventilation VTE Prophylaxis Plan VTE Prophylaxis will be ordered: No Supervising Physician Co-Signing Physician Notes I, Charles Garcia, have seen and examined the MAGEN MARTINEZ and also discussed the plans with physician recruitment assistant On physical exam General: no acute distress Heart: regular rate Lungs: clear to auscultation bilaterally, no wheezing, on nasal cannula oxygen Abdomen: soft, truncal obesity Neuro: no facial droop, speaks in full sentences : has bob Assessment and Plan -patient being admitted for urinary tract infection and urinary incontinence. Continue bob for now. Continue empiric IV cefepime, follow the urine cultures -monitor the renal function -patient also expressed lot of difficulty getting around in her house and transferring to commode. A lot of this is related to chronic respiratory failure and obesity. Will need PT/OT evaluations and case management consult for possible placement if needed base on PT/OT assessments -Other chronic medical problems and plans include continuing supplementary oxygen for chronic respiratory failure with hypoxia. Patient reports not being able to tolerate CPAP at night for obstructive sleep apnea -Hyperglycemia on admission, given IV insulin, hold the home dose metformin, seek pharmacy glycemic control consult -continue the home dose Xarelto and cardiovascular medications for paroxysmal atrial fibrillation, re-assess Lasix use in 07/23/2020 -Conditional Code: Declines intubation. Allows for CPR or Cardiac Defibrillation -agree with other assessment and plans as documented by physician recruitment assistant -My colleague Dr. Obrien will be the hospitalist attending starting on 07/23/2020 (1) COPD (chronic obstructive pulmonary disease) COPD type: unspecified COPD Qualified Code(s): J44.9 - Chronic obstructive pulmonary disease, unspecified
[2020-07-22] MEDS ORDERED: MAGNESIUM HYDROXIDE SUSP 30 ML UDC PO PRN (16:38)
[2020-07-22] MEDS ORDERED: CEFEPIME CONSULT ACTIVE PRN (16:38)
[2020-07-22] MEDS ORDERED: DEXTROSE 50% 50 ML SYRINGE IV PRN (16:38)
[2020-07-22] MEDS ORDERED: GLUCOSE 40% GEL 15 GM TUBE PO PRN (16:38)
[2020-07-22] MEDS ORDERED: GLUCOSE 10 TABS/TUBE PO PRN (16:38)
[2020-07-22] MEDS ORDERED: ALUMINUM/MAGNESIUM SUSP 30 ML UDC PO PRN (16:38)
[2020-07-22] MEDS ORDERED: POLYETHYLENE (MIRALAX) 17 GM PACK PO PRN (16:38)
[2020-07-22] MEDS ORDERED: GLUCAGON FOR INJ 1 MG VIAL SQ PRN (16:38)
[2020-07-22] MEDS ORDERED: CARBOHYDRATES FOR HYPOGLYCEMIA PO PRN (16:38)
[2020-07-22] MEDS ORDERED: PHARMACY GLYCEMIC MGMT CONSULT PRN (16:45)
[2020-07-22] MEDS ORDERED: NSS + 20MEQ KCL 20 MEQ/1,000 ML BAG IV SCH (17:00)
[2020-07-22] MEDS: OXYCODONE HCL IR 5 MG TAB (IMMEDIATE RELEASE) PO PRN (17:10)
[2020-07-22] MEDS: INSULIN ASPART 100 UNITS/ML 3 ML PEN SC SCH ×2 (17:48→21:14)
--- NOTE | 2020-07-22 20:30 | Pharmacy Report ---
Glycemic Control Consultation - Date of Service July 22, 2020 - Scope Scope: Glycemic Pharmacist consulted for glycemic control and to write orders per [facility] inpatient glycemic control protocol. - Objective Weight: 131.5 kg Accuchecks BSG (last 24hrs): 07/22/20 07/22/20 07/22/20 12:41 14:38 16:52 Glucose 307 H* POC Glucose 286 H 87 07/22/20 19:47 Glucose POC Glucose 196 H Laboratory Data (last 24hrs): 07/22/20 12:41 Potassium 3.7 Carbon Dioxide 33 H Anion Gap 7.0 Creatinine 1.57 H Est Cr Clr Drug Dosing 43.7 Beta-Hydroxybutyric Acd 1.27 - Recent Pertinent Medications Outpatient Anti-diabetic Regimen: * Metformin 500 mg PO daily * A1c = 8.5 % (07/26/19) * Reordered for tomorrow - Assessment & Plan Assessment & Plan: ASSESSMENT: * NELSON is a 75 year old female who presents with weakness and urinary symptoms * Currently receiving cefepime for treatment of UTI * BSG on presentation of 307 mg/dL -> received 10 unit IV regular insulin bolus in the ED * BSG rechecks this afternoon/evening of 286, 87, and 196 mg/dL * Will order one-time Lantus with adjusted-body weight-based Novolog * NSS + 20 mEq KCL infusing at 75 mL/hr PLAN FOR INPATIENT GLYCEMIC CONTROL: * Holding outpatient oral diabetes medications * Basal insulin * Lantus 15 units SQ x 1 (~0.11 unit/kg) * Reassess basal insulin in the AM * Bolus insulin * NovoLog per scale ACHS or Q6hrs while NPO * Goal Range: Low 110 mg/dL - High 140 mg/dL * Correction Factor: 25 mg/dL/unit * Nutritional / Prandial insulin per carb ratio of 1 unit per 8 grams CHO consumed * 0200 check overnight with same parameters * Please note that the plan above was derived based on current level of insulin resistance and hospital stress. These recommendations are appropriate for inpatient admission only. Plan of care upon discharge will need to be reassessed to avoid potential outpatient hypo/hyperglycemia. Thank you.
[2020-07-22] MEDS: OXYCODONE HCL 20 MG TABCR (OXYCONTIN) PO SCH (20:58)
[2020-07-22] MEDS: RIVAROXABAN 15 MG TAB PO SCH (20:58)
[2020-07-22] MEDS: OXYCODONE HCL 10 MG TABCR (OXYCONTIN) PO SCH (20:58)
[2020-07-22] MEDS ORDERED: INSULIN GLARGINE SOLOSTAR 100 UNITS/ML 3 ML PEN SC ONE ×2 (21:00)
[2020-07-22] MEDS ORDERED: OXYCODONE HCL 20 MG TABCR (OXYCONTIN) PO SCH (21:00)
[2020-07-22] MEDS: carvediloL 6.25 MG TAB PO SCH ×2 (21:01→21:07)
[2020-07-22] MEDS: SPIRONOLACTONE 12.5 MG TAB PO SCH (21:01)
[2020-07-22] MEDS: DOCUSATE SODIUM/SENNA 50/8.6MG TAB PO SCH (21:03)
[2020-07-22] MEDS: DOFETILIDE 125 MCG CAPSULE PO SCH (21:04)
[2020-07-22] MEDS: ALBUTEROL HFA 8 GM INHALER INH PRN (21:12)
[2020-07-22] MEDS: ONDANSETRON INJ 2 MG/ML 2 ML VIAL IV PRN (21:38)
[2020-07-22] MEDS ORDERED: FAMOTIDINE 20 MG in SYRINGE 3 ML IV STA (21:52)
[2020-07-22] MEDS ORDERED: MICONAZOLE NITRATE POWDER 43 GM EXT PRN (22:48)
--- NOTE | 2020-07-22 23:10 | Electrocardiogram Report ---
Test Reason : Blood Pressure : / mmHG Vent. Rate : 071 BPM Atrial Rate : 071 BPM P-R Int : 164 ms QRS Dur : 082 ms QT Int : 414 ms P-R-T Axes : 092 029 024 degrees QTc Int : 449 ms Normal sinus rhythm Nonspecific T wave abnormality Abnormal ECG When compared with ECG of 04-AUG-2019 14:59, T wave inversion more evident in Anterior leads Confirmed by Yvan Loving ([id number]) on 07/22/2020 11:09:55 PM Referred By: REFERRED SELF Confirmed By:Yvan Loving
[2020-07-23] MEDS ORDERED: PROMETHAZINE HCL 12.5 MG in SODIUM CHLORIDE 0.9% 50 ML IV STA (01:45)
[2020-07-23] MEDS ORDERED: INSULIN ASPART 100 UNITS/ML 3 ML PEN SC SCH (02:00)
[2020-07-23] MEDS: CEFEPIME 2,000 MG in SYRINGE 0 ML IV SCH ×2 (02:25→16:07)
[2020-07-23] MEDS: LEVOTHYROXINE SODIUM 150 MCG TABLET PO SCH (06:07)
[2020-07-23] MEDS: carvediloL 6.25 MG TAB PO SCH ×2 (07:59→20:53)
[2020-07-23] MEDS: OXYCODONE HCL 10 MG TABCR (OXYCONTIN) PO SCH ×2 (07:59→20:52)
[2020-07-23] MEDS: DOFETILIDE 125 MCG CAPSULE PO SCH ×2 (07:59→20:54)
[2020-07-23] MEDS: INSULIN ASPART 100 UNITS/ML 3 ML PEN SC SCH ×4 (07:59→20:56)
[2020-07-23] MEDS: OXYCODONE HCL 20 MG TABCR (OXYCONTIN) PO SCH ×2 (07:59→20:52)
[2020-07-23] MEDS: DOCUSATE SODIUM/SENNA 50/8.6MG TAB PO SCH ×2 (07:59→20:54)
[2020-07-23 08:01] LABS: Hematocrit (blood only) 36.5 % (37-47); Hemoglobin 11.6 g/dL (12.0-16.0); Mean Corpuscular Hgb Conc 31.8 g/dL (32-36); Mean Platelet Volume 10.5 fL (7.4-10.4); Platelet Count 118 K/uL (130-400); RDW Coefficient of Variation 13.9 % (11.5-14.5); RDW Standard Deviation 44.9 fL (36.4-46.3); Red Blood Count 4.15 M/uL (4.2-5.4); White Blood Count 6.68 K/uL (4.8-10.8)
[2020-07-23 08:04] LABS: Estimated Average Glucose 212 mg/dl
[2020-07-23 08:31] LABS: BUN Creatinine Ratio 19.9 (10-20); Calcium 8.6 mg/dl (8.5-10.1); Creatinine Clr Calc Pharmacy 54.7 ml/min; Est GFR (African American) 49.4; Est GFR (Non-African American) 42.6
[2020-07-23] MEDS ORDERED: INSULIN GLARGINE SOLOSTAR 100 UNITS/ML 3 ML PEN SC SCH (09:00)
[2020-07-23] MEDS ORDERED: METHYLNALTREXONE BROMIDE 12 MG/0.6 ML VIAL SQ ONE (09:30)
--- NOTE | 2020-07-23 09:51 | Hospitalist Progress Note ---
Date of Service July 23, 2020 Assessment & Plan (1) UTI (urinary tract infection): 75-year-old female who has significant past medical history of COPD with chronic respiratory failure on 3 L of O2, cor pulmonale, PAF anticoagulated on Xarelto, morbid obesity, T2DM, CKD stage III, HLD, hypothyroidism, ZEYAD intolerant to CPAP, history of TIA who presents to ED secondary to weakness in her feeling x1 week, urinary incontinence, dysuria, frequency, abd pain Urine culture growing GNR Blood cultures in lab Continue iv ceftriaxone and follow sensitivities Plan to remove bob as soon as possible (2) Chronic respiratory failure with hypoxia: (3) COPD (chronic obstructive pulmonary disease): Chronic respiratory failure with hypoxia and hypercarbia secondary to COPD, cor pulmonale, CHF and possible OHS. Reported she is intolerant to CPAP Continue O2 supplementation Continue albuterol nebulizer treatment (4) Paroxysmal atrial fibrillation: Rate and rhythm controlled on Dofetilide and Coreg Xarelto held yesterday due to epistaxis. This has resolved Based on renal function (CrCl), will resume xarelto at 15mg qPM and monitor (5) DM type 2 (diabetes mellitus, type 2): With hyperglycemia, admitting glucose 307, repeat 286 Got IV regular insulin 10 units on admission Blood glucose currently controlled with Lantus/NovoLog per protocol Holding home metformin (6) CKD (chronic kidney disease), stage III: Baseline creatinine 1.2-1.5 BUN/creatinine 26 and 1.57 on admission Was reported to appear dehydrated and reported poor oral intake on admission Got some IVF on admission. Cr is 1.25 today Avoid nephrotoxins and monitor Encourage po intake (7) Chronic diastolic CHF (congestive heart failure): Currently euvolemic Continue Coreg Continue to hold Lasix and potassium for today (8) Hypothyroidism: Continue levothyroxine TSH 0.739 (9) Ambulatory dysfunction: Patient reports she occasionally ambulates with walker PT/OT eval (10) Morbid obesity: BMI 48.2 Encourage lifestyle and diet modifications (11) Chronic pain syndrome: 2/2 to Osteoarthritis and morbid obesity on Oxycontin 30mg Q12hr and and oxycodone 10mg q4h prn Constipation reported since last week and hypoactive bowel sounds on exam Get XR abd This is likely opioid related. Patient reported she had received relistor in the past for constipation Will give one dose Continue bowel regimen (12) DVT prophylaxis: Xarelto Admission and Anticipated Discharge Date Admission Date: July 23, 2020 Subjective Patient seen and examined. Reported nausea and vomiting yesterday. Stated emesis was greenish with some blood tinge which she believed was from nose bleeds she had yesterday. Still complaining of abdominal/suprapubic pain, burning in nature. Denied any fevers, chills Epistaxis has resolved yesterday Reports constipation since last week Denied any cough, chest pain. No change in chronic SOB Still fatigued. Physical Exam Constitutional: + well hydrated and + obese; no acute distress Eyes: PERRL, conjunctivae normal, anicteric sclerae ENMT: external ear and nose normal, oropharynx normal Respiratory: no respiratory distress Auscultation: + diminished lung sounds (Likely due to body habitus); no crackles On nasal oxygen 3l/min Cardiovascular: Rate/Rhythm: regular rate and regular rhythm Extremities: no pedal edema S1 S2 Gastrointestinal (Abdomen): Inspection/Auscultation: abdomen normal to inspection; abdomen not distended Percussion/Palpation: abdomen soft; abdomen nontender and no guarding Hypoactive bowel sounds Musculoskeletal: no cyanosis or clubbing, extremities motor strength 5/5 Neurologic: PERRL, EOMI, accommodation nl, no face palsy, no dysarthria Psychiatric: A+Ox3, euthymic affect Results & Data Results & Data ([facility]) Vital Signs (Past 12 Hours) Vital Signs Temp Pulse Pulse Resp BP Pulse Ox 07/23/20 09:00 72 07/23/20 07:29 36.7 C 77 18 134/79 97 07/23/20 02:44 36.6 C 67 16 134/73 98 07/22/20 23:50 83 07/22/20 23:38 37.0 C 83 18 137/72 97 Laboratory Results Laboratory Results - last 24 hr 07/22/20 07/22/20 07/22/20 12:41 12:41 13:12 WBC 10.19 RBC 4.55 Hgb 12.9 Hct 40.0 MCV 87.9 MCH 28.4 MCHC 32.3 RDW Std Deviation 44.4 RDW Coeff of [place] 13.8 Plt Count 148 MPV 10.7 H Immature Gran % (Auto) 0.5 Neut % (Auto) 77.4 Lymph % (Auto) 13.0 [place] % (Auto) 8.6 Eos % (Auto) 0.5 Baso % (Auto) 0.0 Neut # (Auto) 7.89 H Lymph # (Auto) 1.32 [place] # (Auto) 0.88 H Eos # (Auto) 0.05 Baso # (Auto) 0.00 Immature Gran # (Auto) 0.05 H Sodium 130 L Potassium 3.7 Chloride 90 L Carbon Dioxide 33 H Anion Gap 7.0 BUN 26 H Creatinine 1.57 H Est Cr Clr Drug Dosing 43.7 Est GFR ( Amer) 37.5 Est GFR (Non-Af Amer) 32.4 BUN/Creatinine Ratio 16.5 Glucose 307 H* POC Glucose Estimat Average Glucose Hemoglobin A1c Calcium 9.3 Magnesium 2.1 Total Bilirubin 0.7 AST 12 L ALT 24 Alkaline Phosphatase 61 Troponin I < 0.015 Total Protein 6.8 Albumin 3.1 L Globulin 3.7 Albumin/Globulin Ratio 0.8 L Beta-Hydroxybutyric Acd 1.27 TSH 0.739 Urine Color Dark Yellow Urine Appearance Turbid A Urine pH 8.0 H Ur Specific [place] 1.017 Urine Protein 3+ H Urine Glucose (UA) Negative Urine Ketones Negative Urine Blood 2+ H Urine Nitrite Negative Urine Bilirubin Negative Urine Urobilinogen Negative Ur Leukocyte Esterase 3+ H Urine WBC (Auto) >30 H Urine RBC (Auto) 10-30 H U Hyaline Cast (Auto) 1-5 U Epithel Cells (Auto) >30 H Urine Bacteria (Auto) 4+ H Urine Yeast Not Reportable 07/22/20 07/22/20 07/22/20 14:38 16:52 19:47 WBC RBC Hgb Hct MCV MCH MCHC RDW Std Deviation RDW Coeff of [place] Plt Count MPV Immature Gran % (Auto) Neut % (Auto) Lymph % (Auto) [place] % (Auto) Eos % (Auto) Baso % (Auto) Neut # (Auto) Lymph # (Auto) [place] # (Auto) Eos # (Auto) Baso # (Auto) Immature Gran # (Auto) Sodium Potassium Chloride Carbon Dioxide Anion Gap BUN Creatinine Est Cr Clr Drug Dosing Est GFR ( Amer) Est GFR (Non-Af Amer) BUN/Creatinine Ratio Glucose POC Glucose 286 H 87 196 H Estimat Average Glucose Hemoglobin A1c Calcium Magnesium Total Bilirubin AST ALT Alkaline Phosphatase Troponin I Total Protein Albumin Globulin Albumin/Globulin Ratio Beta-Hydroxybutyric Acd TSH Urine Color Urine Appearance Urine pH Ur Specific [place] Urine Protein Urine Glucose (UA) Urine Ketones Urine Blood Urine Nitrite Urine Bilirubin Urine Urobilinogen Ur Leukocyte Esterase Urine WBC (Auto) Urine RBC (Auto) U Hyaline Cast (Auto) U Epithel Cells (Auto) Urine Bacteria (Auto) Urine Yeast 07/23/20 07/23/20 07/23/20 01:44 07:40 07:40 WBC 6.68 RBC 4.15 L Hgb 11.6 L Hct 36.5 L MCV 88.0 MCH 28.0 MCHC 31.8 L RDW Std Deviation 44.9 RDW Coeff of Lawrence 13.9 Plt Count 118 L MPV 10.5 H Immature Gran % (Auto) Neut % (Auto) Lymph % (Auto) [place] % (Auto) Eos % (Auto) Baso % (Auto) Neut # (Auto) Lymph # (Auto) [place] # (Auto) Eos # (Auto) Baso # (Auto) Immature Gran # (Auto) Sodium 136 Potassium 4.0 Chloride 98 Carbon Dioxide 33 H Anion Gap 5.0 BUN 25 H Creatinine 1.25 H D Est Cr Clr Drug Dosing 54.7 Est GFR ( Amer) 49.4 Est GFR (Non-Af Amer) 42.6 BUN/Creatinine Ratio 19.9 Glucose 119 H POC Glucose 148 H Estimat Average Glucose Hemoglobin A1c Calcium 8.6 Magnesium Total Bilirubin AST ALT Alkaline Phosphatase Troponin I Total Protein Albumin Globulin Albumin/Globulin Ratio Beta-Hydroxybutyric Acd TSH Urine Color Urine Appearance Urine pH Ur Specific [place] Urine Protein Urine Glucose (UA) Urine Ketones Urine Blood Urine Nitrite Urine Bilirubin Urine Urobilinogen Ur Leukocyte Esterase Urine WBC (Auto) Urine RBC (Auto) U Hyaline Cast (Auto) U Epithel Cells (Auto) Urine Bacteria (Auto) Urine Yeast 07/23/20 07/23/20 07:40 07:43 WBC RBC Hgb Hct MCV MCH MCHC RDW Std Deviation RDW Coeff of [place] Plt Count MPV Immature Gran % (Auto) Neut % (Auto) Lymph % (Auto) [place] % (Auto) Eos % (Auto) Baso % (Auto) Neut # (Auto) Lymph # (Auto) [place] # (Auto) Eos # (Auto) Baso # (Auto) Immature Gran # (Auto) Sodium Potassium Chloride Carbon Dioxide Anion Gap BUN Creatinine Est Cr Clr Drug Dosing Est GFR ( Amer) Est GFR (Non-Af Amer) BUN/Creatinine Ratio Glucose POC Glucose 148 H Estimat Average Glucose 212 Hemoglobin A1c 9.0 H Calcium Magnesium Total Bilirubin AST ALT Alkaline Phosphatase Troponin I Total Protein Albumin Globulin Albumin/Globulin Ratio Beta-Hydroxybutyric Acd TSH Urine Color Urine Appearance Urine pH Ur Specific [place] Urine Protein Urine Glucose (UA) Urine Ketones Urine Blood Urine Nitrite Urine Bilirubin Urine Urobilinogen Ur Leukocyte Esterase Urine WBC (Auto) Urine RBC (Auto) U Hyaline Cast (Auto) U Epithel Cells (Auto) Urine Bacteria (Auto) Urine Yeast (1) COPD (chronic obstructive pulmonary disease) COPD type: unspecified COPD Qualified Code(s): J44.9 - Chronic obstructive pulmonary disease, unspecified
--- NOTE | 2020-07-23 10:34 | XRay Report ---
ABDOMEN 2 VIEWS HISTORY: Constipation COMPARISON: Abdomen and pelvis CT 07/22/2020. FINDINGS: There is no pneumoperitoneum or pneumatosis. The bowel gas pattern is unremarkable. No evid ence for bowel obstruction. No renal or ureteral calculi. Prior cholecystectomy. Small to moderate am ount of well-formed stool within the colon. IMPRESSION: 1. No evidence for bowel obstruction. 2. Small to moderate amount of well-formed stool within the colon. ACT 112: Negative or not required by law. Electronically signed by: Ted Mccullough M.D. 07/23/2020 10:33 AM
[2020-07-23] MEDS: MULTIVITAMIN TAB PO SCH (11:24)
[2020-07-23] MEDS: CHOLECALCIFEROL 1,000 UNITS 25 MCG TAB PO SCH (11:25)
[2020-07-23] MEDS: ZINC SULFATE 220 MG CAPSULE PO SCH (11:25)
[2020-07-23] MEDS: ALBUTEROL HFA 8 GM INHALER INH PRN ×2 (11:47→22:16)
[2020-07-23] MEDS: OXYCODONE HCL IR 5 MG TAB (IMMEDIATE RELEASE) PO PRN ×2 (12:32→18:31)
[2020-07-23] MEDS: ONDANSETRON INJ 2 MG/ML 2 ML VIAL IV PRN (12:34)
--- NOTE | 2020-07-23 14:46 | Pharmacy Report ---
Pharmacy Glycemic Short Note 2 - Date of Service July 23, 2020 - Glycemic Short BSG Results (Last 24 hours): 07/22/20 07/22/20 07/22/20 14:38 16:52 19:47 Glucose POC Glucose 286 H 87 196 H 07/23/20 07/23/20 07/23/20 01:44 07:40 07:43 Glucose 119 H POC Glucose 148 H 148 H 07/23/20 11:30 Glucose POC Glucose 164 H OUTPATIENT ANTIDIABETIC REGIMEN: * Metformin 500 mg PO daily * A1c = 9 % 07/23/20 ASSESSMENT: * MH is a 75 year old female who presented with weakness and urinary symptoms * Pt is maintained on oral antidiabetic agents as an outpatient. These were held for admission and patient started on weight based SQ basal + bolus insulin * Fasting BSG of 148 mg/dL is slightly above goal. Continue to titrate basal insulin. Will change to dose per scale. * Novolog parameters seem adequate at this point. Will continue. PLAN FOR INPATIENT GLYCEMIC CONTROL: * Holding outpatient oral diabetes medications * Basal insulin * Lantus 15 units SQ this AM, then 10-15 units per scale BID: * 10 units for BSG 180 mg/dL or less * 15 units for BSG > 180 mg/dL * Bolus insulin - no change * NovoLog per scale ACHS or Q6hrs while NPO * Goal Range: Low 110 mg/dL - High 140 mg/dL * Correction Factor: 25 mg/dL/unit * Nutritional / Prandial insulin per carb ratio of 1 unit per 8 grams CHO consumed Thank you.
[2020-07-23] MEDS: RIVAROXABAN 15 MG TAB PO SCH (14:56)
[2020-07-23] MEDS: SPIRONOLACTONE 12.5 MG TAB PO SCH (20:53)
[2020-07-23] MEDS: INSULIN GLARGINE SOLOSTAR 100 UNITS/ML 3 ML PEN SC SCH (20:56)
[2020-07-24] MEDS: CEFEPIME 2,000 MG in SYRINGE 0 ML IV SCH (02:27)
[2020-07-24] MEDS: ACETAMINOPHEN 325 MG TAB PO PRN (04:43)
[2020-07-24 05:52] LABS: Hematocrit (blood only) 33.4 % (37-47); Hemoglobin 10.9 g/dL (12.0-16.0); Mean Corpuscular Hemoglobin 28.6 pg (25-34); Mean Corpuscular Hgb Conc 32.6 g/dL (32-36); Mean Corpuscular Volume 87.7 fL (80-100); Mean Platelet Volume 10.4 fL (7.4-10.4); Platelet Count 106 K/uL (130-400); RDW Coefficient of Variation 13.8 % (11.5-14.5); RDW Standard Deviation 44.4 fL (36.4-46.3); Red Blood Count 3.81 M/uL (4.2-5.4); White Blood Count 5.97 K/uL (4.8-10.8)
[2020-07-24] MEDS: LEVOTHYROXINE SODIUM 150 MCG TABLET PO SCH (06:07)
[2020-07-24 06:18] LABS: BUN Creatinine Ratio 18.9 (10-20); Calcium 8.2 mg/dl (8.5-10.1); Creatinine Clr Calc Pharmacy 59.9 ml/min; Est GFR (African American) 55.8; Est GFR (Non-African American) 48.2; Potassium 3.6 mmol/L (3.5-5.1)
--- NOTE | 2020-07-24 08:20 | Hospitalist Progress Note ---
Date of Service July 24, 2020 Assessment & Plan (1) UTI (urinary tract infection): 75-year-old female who has significant past medical history of COPD with chronic respiratory failure on 3 L of O2, cor pulmonale, PAF anticoagulated on Xarelto, morbid obesity, T2DM, CKD stage III, HLD, hypothyroidism, ZEYAD intolerant to CPAP, history of TIA who presents to ED secondary to weakness in her feeling x1 week, urinary incontinence, dysuria, frequency, abd pain Urine culture growing Proteus Initial blood culture growing GPC in clusters in 1 bottle. Will repeat. This is likely contaminant Currently on iv cefepime and follow sensitivities. May deescalate to po later today or tomorrow morning depending on sensitivities, clinical response and blood culture results Remove bob (2) Chronic respiratory failure with hypoxia: (3) COPD (chronic obstructive pulmonary disease): Chronic respiratory failure with hypoxia and hypercarbia secondary to COPD, cor pulmonale, CHF and possible OHS. Reported she is intolerant to CPAP Continue O2 supplementation Continue albuterol nebulizer treatment (4) Paroxysmal atrial fibrillation: Rate and rhythm controlled on Dofetilide and Coreg Xarelto held on admission due to epistaxis. This has resolved Based on renal function (CrCl), Resume xarelto at 15mg qPM and monitor (5) DM type 2 (diabetes mellitus, type 2): With hyperglycemia, admitting glucose 307, repeat 286 Got IV regular insulin 10 units on admission Blood glucose currently controlled with Lantus/NovoLog per protocol Holding home metformin (6) CKD (chronic kidney disease), stage III: Baseline creatinine 1.2-1.5 BUN/creatinine 26 and 1.57 on admission Was reported to appear dehydrated and reported poor oral intake on admission Got some IVF on admission. Cr is 1.13 today Avoid nephrotoxins and monitor Encourage po intake (7) Chronic diastolic CHF (congestive heart failure): Currently euvolemic Continue Coreg Resume home Lasix (8) Hypothyroidism: Continue levothyroxine TSH 0.739 (9) Ambulatory dysfunction: Patient reports she occasionally ambulates with walker PT/OT eval (10) Morbid obesity: BMI 48.2 Encourage lifestyle and diet modifications (11) Chronic pain syndrome: 2/2 to Osteoarthritis and morbid obesity on Oxycontin 30mg Q12hr and and oxycodone 10mg q4h prn Constipation Likely opioid related Resolved with relistor Continue bowel regimen (12) DVT prophylaxis: Xarelto Admission and Anticipated Discharge Date Admission Date: July 23, 2020 Subjective Patient seen and examined Reports she is beginning to feel better. Reports abd pain resolved. Stated fatigue is improving Constipation resolved. Started moving her bowels yesterday after relistor Denied any fevers, chills No epistaxis Physical Exam Constitutional: + well hydrated and + obese; no acute distress Eyes: PERRL, conjunctivae normal, anicteric sclerae ENMT: external ear and nose normal, oropharynx normal Respiratory: no respiratory distress Auscultation: + diminished lung sounds (Likely due to body habitus); no crackles Cardiovascular: Rate/Rhythm: regular rate and regular rhythm Extremities: no pedal edema Gastrointestinal (Abdomen): Inspection/Auscultation: abdomen normal to inspection; abdomen not distended Percussion/Palpation: abdomen soft; abdomen nontender and no guarding Musculoskeletal: no cyanosis or clubbing, extremities motor strength 5/5 Neurologic: PERRL, EOMI, accommodation nl, no face palsy, no dysarthria Psychiatric: A+Ox3, euthymic affect Genitourinary: Bob in place Results & Data Results & Data ([facility]) Vital Signs (Past 12 Hours) Vital Signs Temp Pulse Pulse Resp BP Pulse Ox 07/24/20 06:44 36.6 C 63 18 117/68 98 07/24/20 03:33 36.5 C 72 18 150/68 H 100 07/23/20 23:32 78 07/23/20 23:12 36.7 C 74 18 136/70 97 07/23/20 22:17 79 18 99 Laboratory Results Laboratory Results - last 24 hr 07/23/20 07/23/20 07/23/20 11:30 16:29 20:13 WBC RBC Hgb Hct MCV MCH MCHC RDW Std Deviation RDW Coeff of [place] Plt Count MPV Sodium Potassium Chloride Carbon Dioxide Anion Gap BUN Creatinine Est Cr Clr Drug Dosing Est GFR ( Amer) Est GFR (Non-Af Amer) BUN/Creatinine Ratio Glucose POC Glucose 164 H 135 H 186 H Calcium 07/24/20 07/24/20 07/24/20 05:31 05:31 07:18 WBC 5.97 RBC 3.81 L Hgb 10.9 L Hct 33.4 L MCV 87.7 MCH 28.6 MCHC 32.6 RDW Std Deviation 44.4 RDW Coeff of [place] 13.8 Plt Count 106 L MPV 10.4 Sodium 133 L Potassium 3.6 Chloride 97 L Carbon Dioxide 32 Anion Gap 4.0 BUN 21 H Creatinine 1.13 Est Cr Clr Drug Dosing 59.9 Est GFR ( Amer) 55.8 Est GFR (Non-Af Amer) 48.2 BUN/Creatinine Ratio 18.9 Glucose 128 H POC Glucose 123 H Calcium 8.2 L (1) COPD (chronic obstructive pulmonary disease) COPD type: unspecified COPD Qualified Code(s): J44.9 - Chronic obstructive pulmonary disease, unspecified
[2020-07-24] MEDS: DOFETILIDE 125 MCG CAPSULE PO SCH ×2 (08:42→20:52)
[2020-07-24] MEDS: DOCUSATE SODIUM/SENNA 50/8.6MG TAB PO SCH ×2 (08:42→20:52)
[2020-07-24] MEDS: carvediloL 6.25 MG TAB PO SCH ×2 (08:42→20:52)
[2020-07-24] MEDS: OXYCODONE HCL 10 MG TABCR (OXYCONTIN) PO SCH ×3 (08:42→23:18)
[2020-07-24] MEDS: OXYCODONE HCL 20 MG TABCR (OXYCONTIN) PO SCH ×3 (08:42→23:18)
[2020-07-24] MEDS: INSULIN ASPART 100 UNITS/ML 3 ML PEN SC SCH ×4 (08:43→20:52)
[2020-07-24] MEDS: INSULIN GLARGINE SOLOSTAR 100 UNITS/ML 3 ML PEN SC SCH ×2 (08:43→20:56)
[2020-07-24] MEDS: ALBUTEROL 0.083% NEBU SOLN 3 ML VIAL INH PRN ×2 (10:02→14:13)
[2020-07-24] MEDS: CHOLECALCIFEROL 1,000 UNITS 25 MCG TAB PO SCH (11:58)
[2020-07-24] MEDS: ZINC SULFATE 220 MG CAPSULE PO SCH (11:58)
[2020-07-24] MEDS: MULTIVITAMIN TAB PO SCH (11:58)
--- NOTE | 2020-07-24 14:07 | Pharmacy Report ---
Pharmacy Glycemic Short Note 2 - Date of Service July 24, 2020 - Glycemic Short BSG Results (Last 24 hours): 07/23/20 07/23/20 07/24/20 16:29 20:13 05:31 Glucose 128 H POC Glucose 135 H 186 H 07/24/20 07/24/20 07:18 11:44 Glucose POC Glucose 123 H 231 H OUTPATIENT ANTIDIABETIC REGIMEN: * Metformin 500 mg PO daily * A1c = 9 % 07/23/20 ASSESSMENT: 07/24: * Pt received 47 units of insulin yesterday * 30 units of basal * 17 units of bolus * BSGs: 148, 164, 135, 186 mg/dL * Fasting BSG of 123 mg/dL is at goal. Continue current Lantus order. * Post prandial BSGs are acceptable but fluctuating. Will slightly tighten carb coverage. 07/23: * MH is a 75 year old female who presented with weakness and urinary symptoms * Pt is maintained on oral antidiabetic agents as an outpatient. These were held for admission and patient started on weight based SQ basal + bolus insulin * Fasting BSG of 148 mg/dL is slightly above goal. Continue to titrate basal insulin. Will change to dose per scale. * Novolog parameters seem adequate at this point. Will continue. PLAN FOR INPATIENT GLYCEMIC CONTROL: * Holding outpatient oral diabetes medications * Basal insulin * Lantus 10-15 units per scale BID: * 10 units for BSG 140 mg/dL or less * 15 units for BSG > 140 mg/dL * Bolus insulin * NovoLog per scale ACHS or Q6hrs while NPO * Goal Range: Low 110 mg/dL - High 140 mg/dL * Correction Factor: 25 mg/dL/unit * Nutritional / Prandial insulin per carb ratio of 1 unit per 7 grams CHO consumed Thank you.
[2020-07-24] MEDS: RIVAROXABAN 15 MG TAB PO SCH (17:12)
[2020-07-24] MEDS: CEFDINIR 300 MG CAP PO SCH (20:52)
[2020-07-24] MEDS: SPIRONOLACTONE 12.5 MG TAB PO SCH (20:52)
[2020-07-25] MEDS: ALBUTEROL HFA 8 GM INHALER INH PRN (00:18)
[2020-07-25] MEDS: ACETAMINOPHEN 325 MG TAB PO PRN (02:57)
[2020-07-25] MEDS: LEVOTHYROXINE SODIUM 150 MCG TABLET PO SCH (06:09)
[2020-07-25] MEDS: ALBUTEROL 0.083% NEBU SOLN 3 ML VIAL INH PRN ×2 (07:23→19:14)
[2020-07-25 07:33] LABS: Hemoglobin 11.6 g/dL (12.0-16.0); Mean Corpuscular Hemoglobin 28.2 pg (25-34); Mean Corpuscular Hgb Conc 32.2 g/dL (32-36); Mean Corpuscular Volume 87.4 fL (80-100); Mean Platelet Volume 10.3 fL (7.4-10.4); Platelet Count 121 K/uL (130-400); RDW Coefficient of Variation 13.9 % (11.5-14.5); RDW Standard Deviation 44.1 fL (36.4-46.3); Red Blood Count 4.12 M/uL (4.2-5.4); White Blood Count 5.47 K/uL (4.8-10.8)
[2020-07-25 07:59] LABS: Calcium 8.6 mg/dl (8.5-10.1); Creatinine Clr Calc Pharmacy 55.7 ml/min; Est GFR (African American) 50.9; Est GFR (Non-African American) 43.9; Potassium 3.5 mmol/L (3.5-5.1)
[2020-07-25] MEDS: CEFDINIR 300 MG CAP PO SCH ×2 (08:58→20:55)
[2020-07-25] MEDS: carvediloL 6.25 MG TAB PO SCH ×2 (08:58→20:55)
[2020-07-25] MEDS: FUROSEMIDE 20 MG TAB PO SCH (08:59)
[2020-07-25] MEDS: DOFETILIDE 125 MCG CAPSULE PO SCH ×2 (08:59→20:56)
[2020-07-25] MEDS: DOCUSATE SODIUM/SENNA 50/8.6MG TAB PO SCH ×2 (09:00→20:56)
[2020-07-25] MEDS: OXYCODONE HCL 20 MG TABCR (OXYCONTIN) PO SCH ×2 (09:00→20:55)
[2020-07-25] MEDS: OXYCODONE HCL 10 MG TABCR (OXYCONTIN) PO SCH ×2 (09:00→20:55)
[2020-07-25] MEDS: INSULIN ASPART 100 UNITS/ML 3 ML PEN SC SCH ×4 (09:02→20:56)
[2020-07-25] MEDS: INSULIN GLARGINE SOLOSTAR 100 UNITS/ML 3 ML PEN SC SCH ×2 (09:04→20:56)
--- NOTE | 2020-07-25 09:33 | Hospitalist Progress Note ---
Date of Service July 25, 2020 Assessment & Plan (1) UTI (urinary tract infection): 75-year-old female who has significant past medical history of COPD with chronic respiratory failure on 3 L of O2, cor pulmonale, PAF anticoagulated on Xarelto, morbid obesity, T2DM, CKD stage III, HLD, hypothyroidism, ZEYAD intolerant to CPAP, history of TIA who presents to ED secondary to weakness in her feeling x1 week, urinary incontinence, dysuria, frequency, abd pain Urine culture grew Proteus Initial blood culture growing CONS in 1 bottle. Likely contaminant Was initially on cefepime, now deescalated to cefdinir Pyridium for bladder spasm (2) Chronic respiratory failure with hypoxia: (3) COPD (chronic obstructive pulmonary disease): Chronic respiratory failure with hypoxia and hypercarbia secondary to COPD, cor pulmonale, CHF and possible OHS. Reported she is intolerant to CPAP Continue O2 supplementation Continue albuterol nebulizer treatment (4) Paroxysmal atrial fibrillation: Rate and rhythm controlled on Dofetilide and Coreg Xarelto held on admission due to epistaxis. This has resolved Based on renal function (CrCl), xarelto resumed at 15mg qPM (5) DM type 2 (diabetes mellitus, type 2): With hyperglycemia, admitting glucose 307, repeat 286 Got IV regular insulin 10 units on admission Blood glucose currently controlled with Lantus/NovoLog per protocol Holding home metformin A1c is 9 (6) CKD (chronic kidney disease), stage III: Baseline creatinine 1.2-1.5 BUN/creatinine 26 and 1.57 on admission Was reported to appear dehydrated and reported poor oral intake on admission Got some IVF on admission. Cr is 1.22 today Avoid nephrotoxins and monitor Encourage po intake (7) Chronic diastolic CHF (congestive heart failure): Currently euvolemic Continue Coreg Continue Lasix (8) Hypothyroidism: Continue levothyroxine TSH 0.739 (9) Ambulatory dysfunction: Patient reports she occasionally ambulates with walker PT/OT eval (10) Morbid obesity: BMI 48.2 Encourage lifestyle and diet modifications (11) Chronic pain syndrome: 2/2 to Osteoarthritis and morbid obesity on Oxycontin 30mg Q12hr and and oxycodone 10mg q4h prn Constipation Likely opioid related Resolved with relistor Continue bowel regimen (12) DVT prophylaxis: Xarelto Disposition: PT/OT recommend SNF Patient interested in SNF (except for [facility] for personal reasons) Will be discharged as soon as placement is done Admission and Anticipated Discharge Date Admission Date: July 23, 2020 Subjective Patient seen and examined. Reports occasional bladder spasms which she ascribed to her prolapse after urinating. Denied any fevers, chills, nausea, vomiting, abd pain Passing flatus. Had BM two days ago Denied any chest pain, palpitations Physical Exam Constitutional: + well hydrated and + obese; no acute distress Eyes: PERRL, conjunctivae normal, anicteric sclerae ENMT: external ear and nose normal, oropharynx normal Respiratory: no respiratory distress Auscultation: + diminished lung sounds (Likely due to body habitus); no crackles Cardiovascular: Rate/Rhythm: regular rate and regular rhythm Extremities: no pedal edema S1 S2 Gastrointestinal (Abdomen): Inspection/Auscultation: abdomen normal to inspection; abdomen not distended Percussion/Palpation: abdomen soft; abdomen nontender and no guarding Musculoskeletal: no cyanosis or clubbing, extremities motor strength 5/5 Neurologic: PERRL, EOMI, accommodation nl, no face palsy, no dysarthria Psychiatric: A+Ox3, euthymic affect Results & Data Results & Data ([facility]) Vital Signs (Past 12 Hours) Vital Signs Temp Pulse Pulse Resp BP Pulse Ox 07/25/20 07:23 68 18 98 07/25/20 07:16 37.0 C 70 69 18 127/74 97 07/25/20 03:20 36.4 C L 77 18 116/70 97 07/25/20 00:37 67 07/25/20 00:18 69 20 98 07/24/20 22:02 37.2 C 75 18 105/55 L 98 Laboratory Results Laboratory Results - last 24 hr 07/24/20 07/24/20 07/24/20 11:44 15:23 15:41 WBC RBC Hgb Hct MCV MCH MCHC RDW Std Deviation RDW Coeff of [place] Plt Count MPV Sodium Potassium Chloride Carbon Dioxide Anion Gap BUN Creatinine Est Cr Clr Drug Dosing Est GFR ( Amer) Est GFR (Non-Af Amer) BUN/Creatinine Ratio Glucose POC Glucose 231 H 60 L* 92 Calcium 07/24/20 07/24/20 07/25/20 16:41 20:26 00:29 WBC RBC Hgb Hct MCV MCH MCHC RDW Std Deviation RDW Coeff of [place] Plt Count MPV Sodium Potassium Chloride Carbon Dioxide Anion Gap BUN Creatinine Est Cr Clr Drug Dosing Est GFR ( Amer) Est GFR (Non-Af Amer) BUN/Creatinine Ratio Glucose POC Glucose 105 H 180 H 81 Calcium 07/25/20 07/25/20 07/25/20 07:07 07:07 07:28 WBC 5.47 RBC 4.12 L Hgb 11.6 L Hct 36.0 L MCV 87.4 MCH 28.2 MCHC 32.2 RDW Std Deviation 44.1 RDW Coeff of [place] 13.9 Plt Count 121 L MPV 10.3 Sodium 133 L Potassium 3.5 Chloride 96 L Carbon Dioxide 32 Anion Gap 5.0 BUN 17 Creatinine 1.22 H Est Cr Clr Drug Dosing 55.7 Est GFR ( Amer) 50.9 Est GFR (Non-Af Amer) 43.9 BUN/Creatinine Ratio 14.0 Glucose 82 POC Glucose 111 H Calcium 8.6 (1) COPD (chronic obstructive pulmonary disease) COPD type: unspecified COPD Qualified Code(s): J44.9 - Chronic obstructive pulmonary disease, unspecified
--- NOTE | 2020-07-25 11:02 | Pharmacy Report ---
Pharmacy Glycemic Short Note 2 - Date of Service July 25, 2020 - Glycemic Short BSG Results (Last 24 hours): OUTPATIENT ANTIDIABETIC REGIMEN: * Metformin 500 mg PO daily * A1c = 9 % 07/23/20 ASSESSMENT: 07/25: * Lissette received 46 units of insulin yesterday * 25 units of basal * 21 units of bolus * BSGs: 830-747-20-180 mg/dL * Patient had a hypoglycemic event last evening when she reported feeling shakiness and requested her BSG to be checked. It was 60 mg/dL and required treatment with 15 gm of carbohydrates. Repeats were 92 mg/dL and 105 mg/dL. * Fasting BSG of 111 mg/dL is at goal this morning. Given worsening SCr and hypoglycemia, will reduce basal dose today by 20%. * Will reduce carb ratio slightly to prevent further hypoglycemia. 07/24: * Pt received 47 units of insulin yesterday * 30 units of basal * 17 units of bolus * BSGs: 148, 164, 135, 186 mg/dL * Fasting BSG of 123 mg/dL is at goal. Continue current Lantus order. * Post prandial BSGs are acceptable but fluctuating. Will slightly tighten carb coverage. 07/23: * MH is a 75 year old female who presented with weakness and urinary symptoms * Pt is maintained on oral antidiabetic agents as an outpatient. These were held for admission and patient started on weight based SQ basal + bolus insulin * Fasting BSG of 148 mg/dL is slightly above goal. Continue to titrate basal insulin. Will change to dose per scale. * Novolog parameters seem adequate at this point. Will continue. PLAN FOR INPATIENT GLYCEMIC CONTROL: * Holding outpatient oral diabetes medications * Basal insulin - decreased by 20% * Lantus 10 units SC BID * Bolus insulin - loosened CR * NovoLog per scale ACHS or Q6hrs while NPO * Goal Range: Low 110 mg/dL - High 140 mg/dL * Correction Factor: 25 mg/dL/unit * Nutritional / Prandial insulin per carb ratio of 1 unit per 8 grams CHO consumed Thank you.
[2020-07-25] MEDS: ZINC SULFATE 220 MG CAPSULE PO SCH (12:30)
[2020-07-25] MEDS: CHOLECALCIFEROL 1,000 UNITS 25 MCG TAB PO SCH (12:30)
[2020-07-25] MEDS: MULTIVITAMIN TAB PO SCH (12:30)
[2020-07-25] MEDS: RIVAROXABAN 15 MG TAB PO SCH (15:48)
[2020-07-25] MEDS: SPIRONOLACTONE 12.5 MG TAB PO SCH (20:55)
[2020-07-26] MEDS: ALBUTEROL HFA 8 GM INHALER INH PRN (03:13)
[2020-07-26] MEDS: PHENAZOPYRIDINE HCL 100 MG TAB PO PRN ×3 (03:49→15:34)
[2020-07-26] MEDS: LEVOTHYROXINE SODIUM 150 MCG TABLET PO SCH (05:57)
[2020-07-26] MEDS: ALBUTEROL 0.083% NEBU SOLN 3 ML VIAL INH PRN (08:16)
[2020-07-26] MEDS: INSULIN ASPART 100 UNITS/ML 3 ML PEN SC SCH ×4 (08:36→20:46)
[2020-07-26] MEDS: DOCUSATE SODIUM/SENNA 50/8.6MG TAB PO SCH ×2 (08:37→20:41)
[2020-07-26] MEDS: DOFETILIDE 125 MCG CAPSULE PO SCH ×2 (08:37→20:40)
[2020-07-26] MEDS: OXYCODONE HCL 20 MG TABCR (OXYCONTIN) PO SCH ×2 (08:38→20:44)
[2020-07-26] MEDS: OXYCODONE HCL 10 MG TABCR (OXYCONTIN) PO SCH ×2 (08:38→20:44)
[2020-07-26] MEDS: CEFDINIR 300 MG CAP PO SCH ×2 (08:38→20:41)
[2020-07-26] MEDS: carvediloL 6.25 MG TAB PO SCH ×2 (08:39→20:42)
[2020-07-26] MEDS: INSULIN GLARGINE SOLOSTAR 100 UNITS/ML 3 ML PEN SC SCH ×2 (08:40→20:46)
[2020-07-26] MEDS: FUROSEMIDE 20 MG TAB PO SCH (09:04)
[2020-07-26] MEDS ORDERED: FUROSEMIDE 20 MG in SYRINGE 0 ML IV ONE (09:30)
--- NOTE | 2020-07-26 09:33 | XRay Report ---
XR chest 1V portable HISTORY: 75 years-old Female Reassess follow-up study in a patient with emphysema and weakness COMPARISON: Chest radiograph 07/22/2020 TECHNIQUE: Portable AP view of the chest FINDINGS: Cardiac silhouette is again mildly enlarged. Emphysema with chronic residual coarsening. Linear subse gmental bibasilar atelectasis/scarring redemonstrated. No pneumothorax, pleural effusion, airspace co nsolidation or overt pulmonary edema. Bones of the chest appear grossly intact. Degenerative changes of the shoulders and spine. IMPRESSION: 1. Mild cardiomegaly without acute process. 2. Emphysema with chronic interstitial coarsening. ACT 112: Negative or not required by law. The above report was generated using voice recognition software. It may contain grammatical, syntax o r spelling errors. Electronically signed by: Jorge Sommers M.D. 07/26/2020 9:31 AM
--- NOTE | 2020-07-26 09:41 | Hospitalist Progress Note ---
Date of Service July 26, 2020 Assessment & Plan (1) UTI (urinary tract infection): 75-year-old female who has significant past medical history of COPD with chronic respiratory failure on 3 L of O2, cor pulmonale, PAF anticoagulated on Xarelto, morbid obesity, T2DM, CKD stage III, HLD, hypothyroidism, ZEYAD intolerant to CPAP, history of TIA who presents to ED secondary to weakness in her feeling x1 week, urinary incontinence, dysuria, frequency, abd pain Urine culture grew Proteus Initial blood culture growing CONS in 1 bottle. Likely contaminant Was initially on cefepime, now deescalated to cefdinir Continue pyridium for bladder spasm (2) Chronic respiratory failure with hypoxia: (3) COPD (chronic obstructive pulmonary disease): Chronic respiratory failure with hypoxia and hypercarbia secondary to COPD, cor pulmonale, CHF and possible OHS. Reported she is intolerant to CPAP Continue O2 supplementation Give albuterol treatment (4) Paroxysmal atrial fibrillation: Rate and rhythm controlled on Dofetilide and Coreg Xarelto held on admission due to epistaxis. This has resolved Based on renal function (CrCl), continue xarelto at 15mg qPM (5) DM type 2 (diabetes mellitus, type 2): With hyperglycemia, admitting glucose 307, repeat 286 Got IV regular insulin 10 units on admission Blood glucose currently controlled with Lantus/NovoLog per protocol Holding home metformin A1c is 9 (6) CKD (chronic kidney disease), stage III: Baseline creatinine 1.2-1.5 BUN/creatinine 26 and 1.57 on admission Was reported to appear dehydrated and reported poor oral intake on admission Got some IVF on admission. (7) Chronic diastolic CHF (congestive heart failure): Currently euvolemic Continue Coreg Patient does not appear fluid overloaded on exam though this is tough to fully determine due to body habitus Will give today's dose of lasix iv and continue po lasix daily (8) Hypothyroidism: Continue levothyroxine TSH 0.739 (9) Ambulatory dysfunction: Patient reports she occasionally ambulates with walker PT/OT eval (10) Morbid obesity: BMI 48.2 Encourage lifestyle and diet modifications (11) Chronic pain syndrome: 2/2 to Osteoarthritis and morbid obesity on Oxycontin 30mg Q12hr and and oxycodone 10mg q4h prn Constipation Likely opioid related Resolved with relistor Continue bowel regimen (12) DVT prophylaxis: Xarelto Disposition: PT/OT recommend SNF Patient interested in SNF (except for [facility] for personal reasons) CM awaiting SNF authorization Admission and Anticipated Discharge Date Admission Date: July 23, 2020 Subjective Patient seen and examined Reports feeling a little bit fluid overloaded Stated she had some increased shortness of breath overnight, which she stated was triggered by someone's perfume Denied any chest pain Still on baseline oxygen requirement Reports feeling better. States she gets occasional bladder spasm due to her prolapse Denied abd pain, nausea, vomiting,diarrhea Physical Exam Constitutional: + well hydrated and + obese; no acute distress Eyes: PERRL, conjunctivae normal, anicteric sclerae ENMT: external ear and nose normal, oropharynx normal Respiratory: no respiratory distress Auscultation: + diminished lung sounds (Likely due to body habitus); no crackles Mild expiratory wheeze Cardiovascular: Rate/Rhythm: regular rate and regular rhythm Extremities: no pedal edema S1 S2 Gastrointestinal (Abdomen): Inspection/Auscultation: abdomen normal to inspection; abdomen not distended Percussion/Palpation: abdomen soft; abdomen nontender and no guarding Musculoskeletal: no cyanosis or clubbing, extremities motor strength 5/5 Neurologic: PERRL, EOMI, accommodation nl, no face palsy, no dysarthria Psychiatric: A+Ox3, euthymic affect Results & Data Results & Data ([facility]) Vital Signs (Past 12 Hours) Vital Signs Temp Pulse Pulse Resp BP Pulse Ox 07/26/20 08:19 72 18 96 07/26/20 07:27 36.7 C 71 127/79 98 07/26/20 07:25 70 07/26/20 03:39 36.5 C 74 18 145/71 H 99 07/26/20 03:15 68 22 98 07/26/20 00:53 69 07/25/20 23:00 36.7 C 71 18 124/77 98 Laboratory Results Laboratory Results - last 24 hr 07/25/20 07/25/20 07/25/20 11:24 16:54 20:28 POC Glucose 103 H 98 175 H COVID-19 Eval Order SARS-CoV-2, RNA, NAAT 07/25/20 07/25/20 07/26/20 Unknown Unknown 07:50 POC Glucose 124 H COVID-19 Eval Order Cov[facility] SARS-CoV-2, RNA, NAAT NEGATIVE (1) COPD (chronic obstructive pulmonary disease) COPD type: unspecified COPD Qualified Code(s): J44.9 - Chronic obstructive pulmonary disease, unspecified
--- NOTE | 2020-07-26 10:03 | Pharmacy Report ---
Pharmacy Glycemic Short Note 2 - Date of Service July 26, 2020 - Glycemic Short BSG Results (Last 24 hours): OUTPATIENT ANTIDIABETIC REGIMEN: * Metformin 500 mg PO daily * A1c = 9 % 07/23/20 ASSESSMENT: 07/26: * Patient received 33 units of insulin yesterday * 20 units of basal insulin * 13 units of bolus insulin * BSGs ranged 81 - 175 mg/dL - controlled * Fasting BSG is 124 mg/dL this AM - at goal * No changes necessary to insulin regimen today 07/25: * Lissette received 46 units of insulin yesterday * 25 units of basal * 21 units of bolus * BSGs: 615-917-88-180 mg/dL * Patient had a hypoglycemic event last evening when she reported feeling shakiness and requested her BSG to be checked. It was 60 mg/dL and required t reatment with 15 gm of carbohydrates. Repeats were 92 mg/dL and 105 mg/dL. * Fasting BSG of 111 mg/dL is at goal this morning. Given worsening SCr and hypoglycemia, will reduce basal dose today by 20%. * Will reduce carb ratio slightly to prevent further hypoglycemia. PLAN FOR INPATIENT GLYCEMIC CONTROL: * Holding outpatient oral diabetes medications * Basal insulin - no change * Lantus 10 units SC BID * Bolus insulin - no change * NovoLog per scale ACHS or Q6hrs while NPO * Goal Range: Low 110 mg/dL - High 140 mg/dL * Correction Factor: 25 mg/dL/unit * Nutritional / Prandial insulin per carb ratio of 1 unit per 8 grams CHO consumed DISCHARGE RECOMMENDATIONS: * HbA1c is 9.0%. Ideally, goal HbA1c would be less than 8.0% given patient's age and comorbidities. * Elevated HbA1c may be secondary to outpatient prednisone use * Recommend titrating Metformin XR to goal dose of 2000 mg PO daily. * This may be accomplished by increasing her dose by 500 mg per week as tolerated. * Vitamin B12 supplementation may be necessary with senior living Metformin use. * If patient cannot tolerate high doses of XR formulation once daily, then it may be split into twice daily dosing. Thank you.
[2020-07-26] MEDS: CHOLECALCIFEROL 1,000 UNITS 25 MCG TAB PO SCH (12:36)
[2020-07-26] MEDS: ZINC SULFATE 220 MG CAPSULE PO SCH (12:36)
[2020-07-26] MEDS: MULTIVITAMIN TAB PO SCH (12:36)
[2020-07-26] MEDS: RIVAROXABAN 15 MG TAB PO SCH (17:01)
[2020-07-26] MEDS: SPIRONOLACTONE 12.5 MG TAB PO SCH (20:41)
[2020-07-27] MEDS: ALBUTEROL 0.083% NEBU SOLN 3 ML VIAL INH PRN ×2 (01:14→10:39)
[2020-07-27] MEDS: ACETAMINOPHEN 325 MG TAB PO PRN (03:35)
[2020-07-27] MEDS: LEVOTHYROXINE SODIUM 150 MCG TABLET PO SCH (06:03)
[2020-07-27] MEDS: PHENAZOPYRIDINE HCL 100 MG TAB PO PRN ×2 (06:30→17:29)
[2020-07-27 07:35] LABS: Basophils # (auto) 0.01 K/uL (0-0.2); Basophils % (auto) 0.2 %; Eosinophils # (auto) 0.09 K/uL (0-0.5); Eosinophils % (auto) 1.9 %; Hematocrit (blood only) 33.6 % (37-47); Hemoglobin 10.4 g/dL (12.0-16.0); Immature Granulocytes # (auto) 0.03 K/uL (0.00-0.02); Immature Granulocytes % (auto) 0.6 %; Lymphocytes # (auto) 1.42 K/uL (1.2-3.4); Lymphocytes % (auto) 30.5 %; Mean Corpuscular Hemoglobin 27.2 pg (25-34); Mean Platelet Volume 9.7 fL (7.4-10.4); Monocytes # (auto) 0.68 K/uL (0.11-0.59); Monocytes % (auto) 14.6 %; Neutrophils # (auto) 2.42 K/uL (1.4-6.5); Neutrophils % (auto) 52.2 %; Platelet Count 109 K/uL (130-400); RDW Coefficient of Variation 14.4 % (11.5-14.5); RDW Standard Deviation 45.9 fL (36.4-46.3); Red Blood Count 3.82 M/uL (4.2-5.4); White Blood Count 4.65 K/uL (4.8-10.8)
[2020-07-27 08:34] LABS: BUN Creatinine Ratio 9.8 (10-20); Creatinine Clr Calc Pharmacy 58.4 ml/min; Est GFR (African American) 54.1; Est GFR (Non-African American) 46.7; Magnesium 2.1 mg/dl (1.8-2.4); Potassium 3.6 mmol/L (3.5-5.1)
[2020-07-27] MEDS: FUROSEMIDE 20 MG TAB PO SCH (08:50)
[2020-07-27] MEDS: CEFDINIR 300 MG CAP PO SCH (08:51)
[2020-07-27] MEDS: carvediloL 6.25 MG TAB PO SCH (08:51)
[2020-07-27] MEDS: DOCUSATE SODIUM/SENNA 50/8.6MG TAB PO SCH (08:51)
[2020-07-27] MEDS: DOFETILIDE 125 MCG CAPSULE PO SCH (08:52)
[2020-07-27] MEDS: INSULIN GLARGINE SOLOSTAR 100 UNITS/ML 3 ML PEN SC SCH (08:53)
[2020-07-27] MEDS: INSULIN ASPART 100 UNITS/ML 3 ML PEN SC SCH ×3 (08:54→17:31)
[2020-07-27] MEDS: OXYCODONE HCL 20 MG TABCR (OXYCONTIN) PO SCH (09:12)
[2020-07-27] MEDS: OXYCODONE HCL 10 MG TABCR (OXYCONTIN) PO SCH (09:15)
[2020-07-27] MEDS: MULTIVITAMIN TAB PO SCH (12:30)
[2020-07-27] MEDS: CHOLECALCIFEROL 1,000 UNITS 25 MCG TAB PO SCH (12:30)
[2020-07-27] MEDS: ZINC SULFATE 220 MG CAPSULE PO SCH (12:30)
--- NOTE | 2020-07-27 15:29 | Hospitalist Progress Note ---
Date of Service July 27, 2020 Assessment & Plan (1) UTI (urinary tract infection): 75-year-old female who has significant past medical history of COPD with chronic respiratory failure on 3 L of O2, cor pulmonale, PAF anticoagulated on Xarelto, morbid obesity, T2DM, CKD stage III, HLD, hypothyroidism, ZEYAD intolerant to CPAP, history of TIA who presents to ED secondary to weakness in her feeling x1 week, urinary incontinence, dysuria, frequency, abd pain Urine culture grew Proteus Initial blood culture growing CONS in 1 bottle. Likely contaminant Was initially on cefepime, now deescalated to cefdinir- finish 4 more days to complete 10 day course Continue pyridium for bladder spasm (+) mild dysuria on discharge day --> Hg stable, monitor, may need Urology referral if persistent (2) Chronic respiratory failure with hypoxia: (3) COPD (chronic obstructive pulmonary disease): Chronic respiratory failure with hypoxia and hypercarbia secondary to COPD, cor pulmonale, CHF and possible OHS. Reported she is intolerant to CPAP Continue O2 supplementation stable (4) Paroxysmal atrial fibrillation: Rate and rhythm controlled on Dofetilide and Coreg Xarelto held on admission due to epistaxis. This has resolved crea clearance > 50, continue xarelto 20mg qPM (5) DM type 2 (diabetes mellitus, type 2): With hyperglycemia, admitting glucose 307, repeat 286 A1c 9 resume usual regimen ff up as outpatient (6) CKD (chronic kidney disease), stage III: Baseline creatinine 1.2-1.5 BUN/creatinine 26 and 1.57 on admission Was reported to appear dehydrated and reported poor oral intake on admission Got some IVF on admission-->back to baseline (7) Chronic diastolic CHF (congestive heart failure): Currently euvolemic Continue Coreg continue po lasix daily (8) Hypothyroidism: Continue levothyroxine TSH 0.739 (9) Ambulatory dysfunction: Patient reports she occasionally ambulates with walker PT/OT eval: transition to SNF (10) Morbid obesity: BMI 48.2 Encourage lifestyle and diet modifications (11) Chronic pain syndrome: 2/2 to Osteoarthritis and morbid obesity on Oxycontin 30mg Q12hr (discontinued) and oxycodone 10mg q4h prn Constipation Likely opioid related Resolved with relistor Continue bowel regimen (12) DVT prophylaxis: Xarelto Disposition: PT/OT recommend SNF transition to [facility] today ff up with PCP next week per DC instructions Admission and Anticipated Discharge Date Admission Date: July 23, 2020 Subjective ff up for UTI, etc seen resting in bed, comfortable not in distress states she feels fine overall denies abdominal pain ,nausea, fever/chills had some hematuria this morning no chest pain, dyspnea, palpitations, dizziness no other symptoms Review of Systems Review of Systems: All systems reviewed & are unremarkable except as noted in Subjective Physical Exam Physical Exam: General- oriented x 3, not in distress, speaks in sentences with no effort or accessory muscle use Eyes- anicteric Neck- no JVD Lungs- clear breath sounds bilaterally, no rales/wheezes Heart- normal rate, regular rhythm; no murmurs Abdomen- normal bowel sounds, nondistended, soft, nontender Extremities- no pretibial edema, no calf tenderness Neuro- alert, oriented x 3; no gross focal neurologic deficits Skin- warm & dry Results & Data [facility]) Vital Signs (Past 12 Hours) Vital Signs Temp Pulse Pulse Resp BP Pulse Ox 07/27/20 11:55 37 C 66 18 126/68 95 07/27/20 10:40 65 18 98 07/27/20 07:25 36 C L 72 20 114/83 98 07/27/20 07:19 73 07/27/20 03:55 36.7 C 77 18 132/69 100 Laboratory Results Laboratory Results - last 24 hr 07/26/20 07/26/20 07/27/20 16:31 20:27 07:10 WBC 4.65 L RBC 3.82 L Hgb 10.4 L Hct 33.6 L MCV 88.0 MCH 27.2 MCHC 31.0 L RDW Std Deviation 45.9 RDW Coeff of [place] 14.4 Plt Count 109 L MPV 9.7 Immature Gran % (Auto) 0.6 Neut % (Auto) 52.2 Lymph % (Auto) 30.5 [place] % (Auto) 14.6 Eos % (Auto) 1.9 Baso % (Auto) 0.2 Neut # (Auto) 2.42 Lymph # (Auto) 1.42 [place] # (Auto) 0.68 H Eos # (Auto) 0.09 Baso # (Auto) 0.01 Immature Gran # (Auto) 0.03 H Sodium Potassium Chloride Carbon Dioxide Anion Gap BUN Creatinine Est Cr Clr Drug Dosing Est GFR ( Amer) Est GFR (Non-Af Amer) BUN/Creatinine Ratio Glucose POC Glucose 115 H 131 H Calcium Magnesium 07/27/20 07/27/20 07/27/20 07:10 07:29 11:16 WBC RBC Hgb Hct MCV MCH MCHC RDW Std Deviation RDW Coeff of [place] Plt Count MPV Immature Gran % (Auto) Neut % (Auto) Lymph % (Auto) [place] % (Auto) Eos % (Auto) Baso % (Auto) Neut # (Auto) Lymph # (Auto) [place] # (Auto) Eos # (Auto) Baso # (Auto) Immature Gran # (Auto) Sodium 135 L Potassium 3.6 Chloride 97 L Carbon Dioxide 35 H Anion Gap 3.0 BUN 11 Creatinine 1.16 Est Cr Clr Drug Dosing 58.4 Est GFR ( Amer) 54.1 Est GFR (Non-Af Amer) 46.7 BUN/Creatinine Ratio 9.8 L Glucose 118 H POC Glucose 121 H 117 H Calcium 9.0 Magnesium 2.1 07/27/20 11:48 WBC RBC Hgb Hct MCV MCH MCHC RDW Std Deviation RDW Coeff of [place] Plt Count MPV Immature Gran % (Auto) Neut % (Auto) Lymph % (Auto) [place] % (Auto) Eos % (Auto) Baso % (Auto) Neut # (Auto) Lymph # (Auto) [place] # (Auto) Eos # (Auto) Baso # (Auto) Immature Gran # (Auto) Sodium Potassium Chloride Carbon Dioxide Anion Gap BUN Creatinine Est Cr Clr Drug Dosing Est GFR ( Amer) Est GFR (Non-Af Amer) BUN/Creatinine Ratio Glucose POC Glucose 92 Calcium Magnesium (1) COPD (chronic obstructive pulmonary disease) COPD type: unspecified COPD Qualified Code(s): J44.9 - Chronic obstructive pulmonary disease, unspecified
--- NOTE | 2020-07-27 15:32 | Discharge Summary ---
Date of Service July 27, 2020 Admission HPI Per Admitting Provider This is a 75-year-old female who has significant past medical history of COPD with chronic respiratory failure on 3 L of O2, cor pulmonale, PAF anticoagulated on Xarelto, morbid obesity, T2DM, CKD stage III, HLD, hypothyroidism, ZEYAD intolerant to CPAP, history of TIA who presents to ED secondary to weakness in her feeling x1 week. She elicits approximately 2 weeks ago she was very busy visiting her secondary to him being hospitalized. The ultimate result of her not taking care of herself. For the past week she admits to weakness, fatigue, ill feeling, increased pain, suprapubic abdominal pain, dysuria, increased urgency and frequency with urination. She does suffer from a prolapsed bladder which is been causing her increased incontinence. She is chronically short of breath, but denies any worsening. She complains of feeling chilled but denies any documented fever, sweats, chest pain, cough, hemoptysis, emesis, hematuria, melena, medication. Her last BM was approximately 1 week ago. She does admit to taking docusate. She has not been taking her medications as prescribed due to not feeling well. She lives at home with her who is also not well. He has had difficulty ambulating requiring assist device. She has had poor appetite over the past week and has not been eating or drinking well. In ED she was hemodynamically stable. Her CBC was generally unremarkable. CMP revealed sodium 130, but corrected 135, hyperglycemia 307, BUN 27, creatinine 1.57, CO2 33. UA concerning for infection with +3 leukocyte esterase and +4 bacteria. She did have significant epithelial cells questioning specimen. She received IV cefepime, 500 of IVF. Admission Exam Per Admitting Provider Constitutional: Morbidly Obese, F, lying in bed, vitals as above, NAD, conversing easily Head: Normocephalic, Atraumatic Eyes: PERRL, conjunctivae normal, anicteric sclerae ENMT: external ear and nose normal, oropharynx normal Neck: trachea midline, no thyromegaly normal visual inspection dry mucous membranes Respiratory: diminished breath sounds 2/2 to body habitus, normal respiratory effort, lungs clear to auscultation, no wheeze, rales, rhonchi. Normal insp/exp effort, no accessory muscle use Cardiovascular: RRR, no murmur, trace edema Vessels: no JVD or carotid bruit Chest: normal inspection of chest Abdomen: obese Abd, normal bowel sounds, soft, nontender, no hepatosplenomegaly appreciated Musculoskeletal: no cyanosis or clubbing, extremities motor strength 5/5 Skin: no rashes, warm and dry normal turgor Neurologic: PERRL, EOMI, accommodation nl, no face palsy, no dysarthria CN's II-XI intact bilaterally and moves all extremities Psychiatric: A+Ox3, flat affect : +bob yellow urine Principal Diagnosis WEAKNESS, URINARY TRACT INFECTION Discharge Exam General- oriented x 3, not in distress, speaks in sentences with no effort or accessory muscle use Eyes- anicteric Neck- no JVD Lungs- clear breath sounds bilaterally, no rales/wheezes Heart- normal rate, regular rhythm; no murmurs Abdomen- normal bowel sounds, nondistended, soft, nontender Extremities- no pretibial edema, no calf tenderness Neuro- alert, oriented x 3; no gross focal neurologic deficits Skin- warm & dry Discharge Data Allergies Allergy/AdvReac Type Severity Reaction Status Date / Time arformoterol Allergy Severe TACHYCARDIA Verified 07/22/20 15:21 aspirin Allergy Severe HIVES, SOB Verified 07/22/20 15:21 ciprofloxacin Allergy Severe Unknown Verified 07/22/20 15:21 clarithromycin [From Biaxin] Allergy Severe Unknown Verified 07/22/20 15:21 Iodinated Contrast Media Allergy Severe "CAUSED Verified 07/22/20 15:21 ASTHMA ATTACK" metaproterenol [From Alupent] Allergy Severe Unknown Verified 07/22/20 15:21 metformin [From Riomet] Allergy Severe Unknown Verified 07/22/20 15:21 NSAIDS (Non-Steroidal Allergy Severe Hives Verified 07/22/20 15:21 Anti-Inflamma Penicillins Allergy Severe SOB, HIVES Verified 07/22/20 15:21 pioglitazone [From Actos] Allergy Severe Unknown Verified 07/22/20 15:21 sotalol Allergy Severe increased Verified 07/22/20 15:21 breathing problems Sulfa (Sulfonamide Allergy Severe Anaphylaxis Verified 07/22/20 15:21 Antibiotics) tiotropium Allergy Severe Unknown Verified 07/22/20 15:21 [From Spiriva with HandiHaler] aspartame Allergy Intermediate HIVES, Verified 07/22/20 15:21 ITCHY chlorhexidine Allergy Intermediate BLISTERY Verified 07/22/20 15:21 RASH ipratropium Allergy Mild SHORTNESS Verified 07/22/20 15:21 OF BREATH povidone Allergy Mild BLISTER Verified 07/22/20 15:21 WITH TAPE fish derived Allergy Unknown Unknown Verified 07/22/20 15:21 Fish Containing Products Allergy Verified 07/25/20 08:17 shellfish derived Allergy Verified 07/24/20 18:56 stevioside [From Stevia] Allergy Verified 07/25/20 08:19 meperidine AdvReac Intermediate Gastrointestinal Verified 07/22/20 15:21 Upset morphine AdvReac Intermediate Gastrointestinal Verified 07/22/20 15:21 Upset adhesive AdvReac Mild BLISTERS Verified 07/22/20 15:21 WITH TAPE banana AdvReac Verified 07/24/20 18:56 sucralose AdvReac Verified 07/24/20 18:55 [From Splenda (sucralose)] Consultations 07/22/20 14:35 ED Decision to Admit Stat 07/22/20 16:38 Consult Case Management - Discharge Planning Routine Ordered Studies 07/22/20 12:28 CT abd pelvis wo con Stat COMPARISON STUDY: 01/04/2017 TECHNIQUE: CT scan of the abdomen and pelvis was performed from the lung bases to the proximal femurs. Images are reviewed in the axial, sagittal, and coronal planes. IV contrast was not administered for this examination. A dose lowering technique was utilized adhering to the principles of ALARA. CT DOSE: 1811.32 mGy.cm FINDINGS: Lower chest: There are left lower lobe and lingular atelectatic changes. There is a small hiatal hernia Liver: The unenhanced liver is normal in size, contour, and attenuation. There is no intrahepatic biliary ductal dilatation. Gallbladder: Surgically absent Spleen: Normal in size and attenuation. Pancreas: There is fatty atrophy the pancreas. No suspicious masses are visualized. There is no ductal dilatation. Adrenal glands: Unremarkable. Kidneys: No renal, ureteral, or bladder calculi are visualized. Bowel: There are no transition zones to indicate bowel obstruction. There are sc attered colonic diverticula present. There is no evidence of acute diverticulitis. By history the appendix is surgically absent. Peritoneum: There is no intraperitoneal free air or abdominal ascites. There is a tiny fat-containing umbilical hernia. Vasculature: The abdominal aorta is normal in course and caliber. Adenopathy: There is no pathologic adenopathy by size criteria. Pelvic viscera: The uterus is surgically absent. There is an indwelling Bob catheter. There is bladder wall thickening. Skeletal structures: Degenerative changes are present within the lumbar spine. There is lumbar spinal stenosis. No destructive lesions are visualized. IMPRESSION: 1. No evidence of bowel obstruction. No evidence of free air 2. No renal, ureteral, or bladder calculi identified. 3. Indwelling Bob catheter with bladder wall thickening Diabetes Follow up Diabetes Follow-up Needed for HgbA1c >9% Hospital Course (1) UTI (urinary tract infection): 75-year-old female who has significant past medical history of COPD with chronic respiratory failure on 3 L of O2, cor pulmonale, PAF anticoagulated on Xarelto, morbid obesity, T2DM, CKD stage III, HLD, hypothyroidism, ZEYAD intolerant to CPAP, history of TIA who presents to ED secondary to weakness in her feeling x1 week, urinary incontinence, dysuria, frequency, abd pain Urine culture grew Proteus Initial blood culture growing CONS in 1 bottle. Likely contaminant Was initially on cefepime, now deescalated to cefdinir- finish 4 more days to complete 10 day course Continue pyridium for bladder spasm (+) mild dysuria on discharge day --> Hg stable, monitor, may need Urology referral if persistent (2) Chronic respiratory failure with hypoxia: (3) COPD (chronic obstructive pulmonary disease): Chronic respiratory failure with hypoxia and hypercarbia secondary to COPD, cor pulmonale, CHF and possible OHS. Reported she is intolerant to CPAP Continue O2 supplementation stable (4) Paroxysmal atrial fibrillation: Rate and rhythm controlled on Dofetilide and Coreg Xarelto held on admission due to epistaxis. This has resolved crea clearance > 50, continue xarelto 20mg qPM (5) DM type 2 (diabetes mellitus, type 2): With hyperglycemia, admitting glucose 307, repeat 286 A1c 9 resume usual regimen ff up as outpatient (6) CKD (chronic kidney disease), stage III: Baseline creatinine 1.2-1.5 BUN/creatinine 26 and 1.57 on admission Was reported to appear dehydrated and reported poor oral intake on admission Got some IVF on admission-->back to baseline (7) Chronic diastolic CHF (congestive heart failure): Currently euvolemic Continue Coreg continue po lasix daily (8) Hypothyroidism: Continue levothyroxine TSH 0.739 (9) Ambulatory dysfunction: Patient reports she occasionally ambulates with walker PT/OT eval: transition to SNF (10) Morbid obesity: BMI 48.2 Encourage lifestyle and diet modifications (11) Chronic pain syndrome: 2/2 to Osteoarthritis and morbid obesity on Oxycontin 30mg Q12hr (discontinued) and oxycodone 10mg q4h prn Constipation Likely opioid related Resolved with relistor Continue bowel regimen (12) DVT prophylaxis: Xarelto Disposition: PT/OT recommend SNF transition to [facility] today ff up with PCP next week per DC instructions Total Time Total Time Spent Total Time Spent (In Minutes): 50 MINUTES Discharge Plan Discharge Items Patient Disposition: Transfer Nursing Home Fac Reason For Visit: UTI,STACY Discharge Diagnosis: Urinary tract infection Activity: As commented below Activity Comment: Per Physical therapist Driving/Machine Use: NO DRIVING UNTIL RE-EVALUATED AND ALLOWED BY PRIMARY CARE PHYSICIAN Non-emergency contact: Primary Care Provider Call non-emergency contact if: you have any medication questions Follow-up/Referrals: Mendez Swann MD [Primary Care Provider] - 08/01/20 2:00 pm Diet: Carb Consistent or DM2 and Heart Healthy Addtl Attending Provider Instructions: Ms Fierro, You came to the hospital complaining of feeling ill, weak, dysuria. You were evaluated and found to have urinary tract infection. You were treated with antibiotics and your symptoms started to improve. You are being discharged to nursing facility for rehab. Please complete your antibiotics. Please follow up with your Primary Doctor next week as scheduled. It was a pleasure taking care of you. Pending Studies at Discharge: No Stand-Alone Forms: My [facility] Skilled Items Patient informed of condition?: Yes DNR: No (Patient do not want intubation/ventilator) Discharge Level of Care: Skilled Communicable Disease: No Discharge Prognosis: Stable Lines: None Urinary Catheter: No Medications and DC Order Prescriptions: New cefdinir 300 mg Capsule 300 mg PO BID 4 Days Qty: 8 RF: 0 oxycodone 10 mg Tablet 10 mg PO Q4H PRN (Reason: Pain) Qty: 10 RF: 0 Continued albuterol sulfate [Ventolin HFA] 90 mcg/actuation HFA aerosol inhaler 2 puff INHALATION Q6H PRN (Reason: Shortness Of Breath Or Wheezing) Qty: 3 RF: 1 baclofen 10 mg tablet 5 mg PO BID PRN (Reason: Muscle Spasm) RF: 0 sennosides-docusate sodium [Senokot-S] 8.6-50 mg tablet 1 tabcap PO BID PRN (Reason: Constipation) RF: 0 dofetilide [Tikosyn] 125 mcg capsule 250 mcg PO Q12H RF: 0 furosemide [Lasix] 20 mg tablet 20 mg PO QAM RF: 0 albuterol sulfate 2.5 mg /3 mL (0.083 %) solution for nebulization 2.5 mg INHALATION Q4H PRN (Reason: Shortness Of Breath Or Wheezing) Qty: 180 RF: 5 levothyroxine 150 mcg capsule 150 mcg PO QAM RF: 0 carvedilol 3.125 mg tablet 6.25 mg PO BID RF: 0 spironolactone 25 mg tablet 12.5 mg PO HS RF: 0 metformin [Glucophage XR] 500 mg tablet extended release 24 hr 500 mg PO QAM RF: 0 potassium chloride [Klor-Con M10] 10 mEq tablet,ER particles/crystals 10 meq PO QAM RF: 0 hydrocortisone [Proctosol HC] 2.5 % Cream With Perineal Applicator 1 applic EXT BID PRN (Reason: hemorrhoids) Qty: 30 RF: 2 meclizine 25 mg Tablet 25 mg PO TID PRN (Reason: Dizziness) RF: 0 Premarin 0.625 mg/gram Cream 1 applic Topical 3XWK RF: 0 Xarelto 20 mg tablet 20 mg PO QPM RF: 0 multivitamin [One A Day Vitamin] Tablet 1 tab PO QDL RF: 0 docusate sodium [Colace] 100 mg Capsule 100 mg PO UD RF: 0 cholecalciferol (vitamin D3) [Vitamin D3] 25 mcg (1,000 unit) Tablet 25 mcg PO QDL RF: 0 inulin-sorbitol 2 gram Tablet,Chewable 1 tab PO UD RF: 0 Zinc Tablets 1 tab PO QDL RF: 0 oxycodone [OxyContin] 60 mg Tablet Extended Release 12hr 30 mg PO Q12H Qty: 3 RF: 0 Discharge Orders: Discharge Order (Routine); Ordered 07/27/20 Ordered By: Masood Culver/Other Patient Handouts: Managing Type 2 Diabetes, Diabetes: Meal Planning Admission Data Admit Date/Time: 07/23/20 09:23 Attending Provider: Masood Rushing Admit Provider: Charles Garcia Primary Care Provider: Mendez Swann Other Providers: Charles Garcia ; Kemal Larkin ; [place] ; Cherelle Brunner I.
[2020-07-27] MEDS: RIVAROXABAN 15 MG TAB PO SCH (17:29)
== END 2020-07-27 18:17 ==
LOC: 2N 11:55 → ED 11:55 → SUATTDRO 14:38 → 2N 15:57 → SUATTDRO 07-23 09:23

== ENCOUNTER 2020-08-28 13:38 | Inpatient (IN) ==
[2020-08-28] MEDS ORDERED: CLINDAMYCIN 900 MG in DEXTROSE 5% 50 ML IV ONE (14:08)
--- NOTE | 2020-08-28 14:18 | Emergency Department Note ---
Impression & Plan SOB (shortness of breath), Hypomagnesemia, Fluid overload, Cellulitis ED Provider Note NAME: MAGEN MARTINEZ AGE: 75 SEX: F : 1945 ARRIVES VIA: Ambulance INFORMANT: [Patient] ED PROVIDER(S): [Erick Oconnell MD] CHIEF COMPLAINT: Short of breath HISTORY OF PRESENT ILLNESS: The patient is a 75-year-old female who has noticed increasing shortness of breath for the last 2 weeks. She also has noticed some erythema across her abdomen. Patient states that she has a slight cough but the sputum is clear. She does wear oxygen 2 L all the time. The patient states that she is concerned that she is fluid overloaded. They have given some additional Lasix at the halfway but, the patient has not had increased urine output. There has been no fever, she has not had vomiting or diarrhea. The patient states that last week, she had a Covid test and it was negative. REVIEW OF SYSTEMS: See HPI for pertinent positives and negatives. A total of ten systems were reviewed and were otherwise negative. PMHx/PSHx: See Below SOCIAL HISTORY: See Below. PHYSICAL EXAM: GENERAL: Patient is in no acute distress. HEENT: No acute trauma, normocephalic atraumatic, mucous membranes moist, no nasal congestion, no scleral icterus. NECK: No stridor, no adenopathy, no meningismus, trachea is midline. LUNGS: No respiratory distress, scattered wheezes bilaterally, no crackles heard. Breath sounds equal. HEART: Without murmurs gallops or rubs, regular rate and rhythm. ABDOMEN: Soft, nontender, bowel sounds positive, small, nontender umbilical hernia, no peritonitis. She does have erythema across the bilateral lower abdomen, there is some warmth present. EXTREMITIES: No cyanosis, mild bilateral pedal edema, full range of motion of all the joints without pain or difficulty, no signs for acute trauma. NEUROLOGIC: Oriented x 3, no acute motor or sensory deficits, no focal weakness. SKIN: No jaundice, no diaphoresis. Pale. Groin: There is some yeastlike erythema in the right groin crease, no signs of any diffuse redness/cellulitis. DIFFERENTIAL DIAGNOSIS: Reactive airway disease, pneumonia, pneumothorax, COPD, CHF, cellulitis, renal failure, infections, cardiac ischemia, pulmonary embolism, musculoskeletal, gastrointestinal, as well as other pathologies. EMERGENCY DEPARTMENT COURSE/PROCEDURES: ECG: Indication was shortness of breath. The ECG shows a normal sinus rhythm with a rate of 71. There is a baseline artifact making the rhythm interpretation difficult. There are no PVCs, no ST elevation. The QTc is 465. Continuous Cardiac Monitoring: An order was placed for continuous cardiac monitoring. The monitor shows a rate of 75 with normal sinus rhythm. MEDICAL DECISION MAKING: There is no leukocytosis. The patient is somewhat anemic but this appears baseline looking back at previous testing. There is a normal platelet count. INR is slightly elevated, likely consistent with her Xarelto use. Magnesium was quite low at 1.4. No kidney failure. No worrisome liver enzyme elevation. Lactic acid level was not elevated making sepsis less likely. ECG showed a sinus rhythm, no acute ischemia. Cardiac enzyme testing x1 was not consistent with acute cardiac injury. Coronavirus testing was negative. Chest film did not show pneumonia or worrisome CHF. Abdominal CT showed abdominal wall cellulitis, no urinary or bowel obstruction. The patient received albuterol via MDI and spacer. She was given IV clindamycin as antibiotic coverage. She received IV Lasix and IV magnesium. She was given her typical dose of nighttime oral oxycodone for her chronic pain. The patient meets criteria for a hospital stay. She is fluid overloaded. She is not doing well at her halfway. She has a low magnesium and appears to have an abdominal wall cellulitis. I do think hospitalization would be in her best interest. I spoke to the patient and case management. The on-call hospitalist has been consulted. Past Med/Surg History Medical History (Updated 08/28/20 @ 17:54 by Erick Oconnell MD) Asthma Chronic anticoagulation Chronic diastolic CHF (congestive heart failure) Chronic respiratory failure with hypoxia CKD (chronic kidney disease), stage III COPD (chronic obstructive pulmonary disease) Cor pulmonale, chronic DM type 2 (diabetes mellitus, type 2) Dyslipidemia History of TIA (transient ischemic attack) Hypothyroidism ZEYAD (obstructive sleep apnea) Paroxysmal atrial fibrillation Surgical History H/O arthroscopic knee surgery History of appendectomy History of cataract surgery History of cholecystectomy History of hysterectomy Family History Father Asthma Lung cancer Mother Diabetes Heart disease Brother Colon cancer Daughter Diabetes Brother Stroke Social History Smoking Status: Never smoker Second Hand Exposure: No; Hx Alcohol Use: No Hx Substance Use: No Preferred Language: Israeli Communication Ability: Effective Car Designer Required: No Beliefs That Will Affect Care: None marital status: Current Living Situation: Alone Current Living Situation Comment: lives with son Feels Safe at Home: Yes Assistive Devices: Walker Allergies Allergies Allergy/AdvReac Type Severity Reaction Status Date / Time arformoterol Allergy Severe TACHYCARDIA Verified 08/28/20 15:14 aspirin Allergy Severe HIVES, SOB Verified 08/28/20 15:14 ciprofloxacin Allergy Severe Unknown Verified 08/28/20 15:14 clarithromycin [From Biaxin] Allergy Severe Unknown Verified 08/28/20 15:14 Iodinated Contrast Media Allergy Severe "CAUSED Verified 08/28/20 15:14 ASTHMA ATTACK" metaproterenol [From Alupent] Allergy Severe Unknown Verified 08/28/20 15:14 metformin [From Riomet] Allergy Severe Unknown Verified 08/28/20 15:14 NSAIDS (Non-Steroidal Allergy Severe Hives Verified 08/28/20 15:14 Anti-Inflamma Penicillins Allergy Severe SOB, HIVES Verified 08/28/20 15:14 pioglitazone [From Actos] Allergy Severe Unknown Verified 08/28/20 15:14 sotalol Allergy Severe increased Verified 08/28/20 15:14 breathing problems Sulfa (Sulfonamide Allergy Severe Anaphylaxis Verified 08/28/20 15:14 Antibiotics) tiotropium Allergy Severe Unknown Verified 08/28/20 15:14 [From Spiriva with HandiHaler] aspartame Allergy Intermediate HIVES, Verified 08/28/20 15:14 ITCHY chlorhexidine Allergy Intermediate BLISTERY Verified 08/28/20 15:14 RASH ipratropium Allergy Mild SHORTNESS Verified 08/28/20 15:14 OF BREATH povidone Allergy Mild BLISTER Verified 08/28/20 15:14 WITH TAPE fish derived Allergy Unknown Unknown Verified 08/28/20 15:14 Fish Containing Products Allergy Verified 08/28/20 15:14 shellfish derived Allergy Verified 08/28/20 15:14 stevioside [From Stevia] Allergy Verified 08/28/20 15:14 meperidine AdvReac Intermediate Gastrointestinal Verified 08/28/20 15:14 Upset morphine AdvReac Intermediate Gastrointestinal Verified 08/28/20 15:14 Upset adhesive AdvReac Mild BLISTERS Verified 08/28/20 15:14 WITH TAPE banana AdvReac Verified 08/28/20 15:14 sucralose AdvReac Verified 08/28/20 15:14 [From Splenda (sucralose)] Home Meds Home Medications Medication Instructions Recorded Confirmed Premarin 1 applic TOPICAL [id number] 07/24/18 08/28/20 meclizine 25 mg PO Q8H PRN 07/24/18 08/28/20 levothyroxine 150 mcg capsule 150 mcg PO QAM 06/17/19 08/28/20 metformin [Glucophage XR] 1,000 mg PO PM 08/04/19 08/28/20 potassium chloride [Klor-Con M10] 10 meq PO QAM 08/04/19 08/28/20 baclofen 10 mg tablet 5 mg PO BID PRN tab 08/28/19 08/28/20 dofetilide 125 mcg capsule 250 mcg PO Q12H cap 08/28/19 08/28/20 sennosides 8.6 mg-docusate sodium 1 tabcap PO BID PRN 08/28/19 08/28/20 50 mg tablet carvedilol 3.125 mg tablet 6.25 mg PO BID 09/16/19 08/28/20 furosemide 20 mg tablet 40 mg PO QAM 07/14/20 08/28/20 Zinc Tablets 1 tab PO QAM 07/22/20 08/28/20 cholecalciferol (vitamin D3) 25 mcg PO QAM 07/22/20 08/28/20 [Vitamin D3] docusate sodium [Colace] 100 mg PO QAM 07/22/20 08/28/20 multivitamin 1 tab PO QAM 07/22/20 08/28/20 acetaminophen [Tylenol] 650 mg PO Q6H PRN 08/28/20 08/28/20 cyanocobalamin (vitamin B-12) 500 mcg PO QAM 08/28/20 08/28/20 [Vitamin B-12] ondansetron HCl 4 mg PO Q6H PRN 08/28/20 08/28/20 pantoprazole [Protonix] 40 mg PO QAM 08/28/20 08/28/20 psyllium husk [Metamucil] 1 tbsp PO QAM 08/28/20 08/28/20 rivaroxaban 15 mg PO PM 08/28/20 08/28/20 Previous Rx's Medication Instructions Recorded hydrocortisone [Proctosol HC] 1 applic EXT BID PRN #30 gm 08/17/19 albuterol sulfate 90 mcg/actuation 2 puff INHALATION Q6H PRN #3 07/01/20 aerosol inhaler inhaler albuterol sulfate 2.5 mg INHALATION Q4H PRN #180 ml 07/14/20 oxycodone [OxyContin] 30 mg PO Q12H #3 tab 07/26/20 oxycodone 10 mg PO Q4H PRN #10 tab 07/27/20 Results & Data (ED) Vital Signs Vital Signs - 24 hr 08/28/20 13:45 08/28/20 13:50 08/28/20 14:00 Pulse Rate 70 71 71 Pulse Rate from SpO2 Sensor 69 70 71 Pulse Rhythm Respiratory Rate 21 34 H 20 Respiratory Effort / Characteristics Respiratory Depth Respiratory Pattern Blood Pressure 139/75 Blood Pressure Mean 99 Pulse Oximetry 100 100 98 Oxygen Delivery Method Oxygen Flow Rate Sepsis Recent Fever Within 48 Hours Sepsis New/Unexplained Change in Mental Status Sepsis Action Taken by Nursing 08/28/20 14:08 08/28/20 14:09 08/28/20 14:10 Pulse Rate 74 70 Pulse Rate from SpO2 Sensor 70 Pulse Rhythm Regular Respiratory Rate 16 22 Respiratory Effort / Characteristics Non-Labored Respiratory Depth Normal Respiratory Pattern Regular Blood Pressure Blood Pressure Mean Pulse Oximetry 100 99 Oxygen Delivery Method Nasal Cannula Oxygen Flow Rate 4 Sepsis Recent Fever Within 48 Hours No Sepsis New/Unexplained Change in Mental Status No Sepsis Action Taken by Nursing No Action Required 08/28/20 14:20 08/28/20 14:30 08/28/20 14:40 Pulse Rate 69 Pulse Rate from SpO2 Sensor 69 74 71 Pulse Rhythm Respiratory Rate 16 15 23 Respiratory Effort / Characteristics Respiratory Depth Respiratory Pattern Blood Pressure Blood Pressure Mean Pulse Oximetry 99 100 100 Oxygen Delivery Method Oxygen Flow Rate Sepsis Recent Fever Within 48 Hours Sepsis New/Unexplained Change in Mental Status Sepsis Action Taken by Nursing 08/28/20 14:50 08/28/20 14:55 08/28/20 15:00 Pulse Rate 73 68 68 Pulse Rate from SpO2 Sensor 70 68 68 Pulse Rhythm Respiratory Rate 18 19 19 Respiratory Effort / Characteristics Respiratory Depth Respiratory Pattern Blood Pressure 125/38 L 107/46 L Blood Pressure Mean 71 72 Pulse Oximetry 100 100 100 Oxygen Delivery Method Oxygen Flow Rate Sepsis Recent Fever Within 48 Hours Sepsis New/Unexplained Change in Mental Status Sepsis Action Taken by Nursing 08/28/20 15:10 08/28/20 15:20 08/28/20 15:30 Pulse Rate 68 70 72 Pulse Rate from SpO2 Sensor 69 68 71 Pulse Rhythm Respiratory Rate 15 15 18 Respiratory Effort / Characteristics Respiratory Depth Respiratory Pattern Blood Pressure 106/47 L Blood Pressure Mean 69 Pulse Oximetry 100 100 97 Oxygen Delivery Method Oxygen Flow Rate Sepsis Recent Fever Within 48 Hours Sepsis New/Unexplained Change in Mental Status Sepsis Action Taken by Nursing 08/28/20 15:40 08/28/20 15:50 08/28/20 16:00 Pulse Rate 69 69 70 Pulse Rate from SpO2 Sensor 70 69 70 Pulse Rhythm Respiratory Rate 17 17 20 Respiratory Effort / Characteristics Respiratory Depth Respiratory Pattern Blood Pressure Blood Pressure Mean Pulse Oximetry 99 98 100 Oxygen Delivery Method Oxygen Flow Rate Sepsis Recent Fever Within 48 Hours Sepsis New/Unexplained Change in Mental Status Sepsis Action Taken by Nursing 08/28/20 16:10 08/28/20 16:20 08/28/20 16:30 Pulse Rate 73 73 72 Pulse Rate from SpO2 Sensor 71 72 73 Pulse Rhythm Respiratory Rate 16 16 16 Respiratory Effort / Characteristics Respiratory Depth Respiratory Pattern Blood Pressure Blood Pressure Mean Pulse Oximetry 100 100 100 Oxygen Delivery Method Oxygen Flow Rate Sepsis Recent Fever Within 48 Hours Sepsis New/Unexplained Change in Mental Status Sepsis Action Taken by Nursing 08/28/20 16:31 08/28/20 16:40 08/28/20 16:50 Pulse Rate 73 74 65 Pulse Rate from SpO2 Sensor 73 66 Pulse Rhythm Respiratory Rate 19 23 15 Respiratory Effort / Characteristics Respiratory Depth Respiratory Pattern Blood Pressure 122/78 Blood Pressure Mean 86 Pulse Oximetry 99 97 Oxygen Delivery Method Oxygen Flow Rate Sepsis Recent Fever Within 48 Hours Sepsis New/Unexplained Change in Mental Status Sepsis Action Taken by Nursing 08/28/20 17:00 08/28/20 17:01 08/28/20 17:23 Pulse Rate 67 69 88 Pulse Rate from SpO2 Sensor 67 71 Pulse Rhythm Respiratory Rate 19 13 17 Respiratory Effort / Characteristics Respiratory Depth Respiratory Pattern Blood Pressure 75/49 L Blood Pressure Mean 55 Pulse Oximetry 97 98 Oxygen Delivery Method Oxygen Flow Rate Sepsis Recent Fever Within 48 Hours Sepsis New/Unexplained Change in Mental Status Sepsis Action Taken by Nursing 08/28/20 17:29 08/28/20 17:31 08/28/20 17:32 Pulse Rate 77 79 76 Pulse Rate from SpO2 Sensor 76 78 77 Pulse Rhythm Respiratory Rate 19 20 18 Respiratory Effort / Characteristics Respiratory Depth Respiratory Pattern Blood Pressure 101/59 L 130/71 Blood Pressure Mean 68 93 Pulse Oximetry 100 99 99 Oxygen Delivery Method Oxygen Flow Rate Sepsis Recent Fever Within 48 Hours Sepsis New/Unexplained Change in Mental Status Sepsis Action Taken by [facility] Medications Current Medication List: was personally reviewed by me Laboratory Data Attestation: I reviewed the patient's lab results. Result diagrams: 08/28/20 14:46 08/28/20 14:46 Lab Results 08/28/20 08/28/20 08/28/20 Range/Units 14:40 14:40 14:46 WBC 6.78 (4.8-10.8) K/uL RBC 3.72 L (4.2-5.4) M/uL Hgb 10.1 L (12.0-16.0) g/dL Hct 33.9 L (37-47) % MCV 91.1 (80-100) fL MCH 27.2 (25-34) pg MCHC 29.8 L (32-36) g/dL RDW Std Deviation 50.8 H (36.4-46.3) fL RDW Coeff of Lawrence 15.2 H (11.5-14.5) % Plt Count 195 (130-400) K/uL MPV 10.2 (7.4-10.4) fL Immature Gran % (Auto) 0.3 % Neut % (Auto) 62.9 % Lymph % (Auto) 20.8 % Ashley % (Auto) 11.5 % Eos % (Auto) 4.4 % Baso % (Auto) 0.1 % Neut # (Auto) 4.26 (1.4-6.5) K/uL Lymph # (Auto) 1.41 (1.2-3.4) K/uL Ashley # (Auto) 0.78 H (0.11-0.59) K/uL Eos # (Auto) 0.30 (0-0.5) K/uL Baso # (Auto) 0.01 (0-0.2) K/uL Immature Gran # (Auto) 0.02 (0.00-0.02) K/uL PT (9.0-12.0) Seconds INR (0.9-1.1) APTT (21.0-31.0) Seconds PTT Ratio Sodium (136-145) mmol/L Potassium (3.5-5.1) mmol/L Chloride (98-107) mmol/L Carbon Dioxide (21-32) mmol/L Anion Gap (3-11) BUN (7-18) mg/dl Creatinine (0.6-1.2) mg/dl Est Cr Clr Drug Dosing ml/min Est GFR ( Amer) Est GFR (Non-Af Amer) BUN/Creatinine Ratio (10-20) Glucose (70-99) mg/dl Lactate (0.4-2.0) mmol/L Calcium (8.5-10.1) mg/dl Magnesium (1.8-2.4) mg/dl Total Bilirubin (0.2-1) mg/dl AST (15-37) U/L ALT (12-78) U/L Alkaline Phosphatase (45-117) U/L Troponin I (0-0.045) ng/ml NT-Pro-B Natriuret Pep (0-900) pg/ml Total Protein (6.4-8.2) gm/dl Albumin (3.4-5.0) gm/dl Globulin (2.5-4.0) gm/dl Albumin/Globulin Ratio (0.9-2) COVID-19 Eval Order Covid19 Done at [facility] COVID-19 PCR NEGATIVE (Negative) 08/28/20 08/28/20 08/28/20 Range/Units 14:46 14:46 14:46 WBC (4.8-10.8) K/uL RBC (4.2-5.4) M/uL Hgb (12.0-16.0) g/dL Hct (37-47) % MCV (80-100) fL MCH (25-34) pg MCHC (32-36) g/dL RDW Std Deviation (36.4-46.3) fL RDW Coeff of Lawrence (11.5-14.5) % Plt Count (130-400) K/uL MPV (7.4-10.4) fL Immature Gran % (Auto) % Neut % (Auto) % Lymph % (Auto) % Ashley % (Auto) % Eos % (Auto) % Baso % (Auto) % Neut # (Auto) (1.4-6.5) K/uL Lymph # (Auto) (1.2-3.4) K/uL Ashley # (Auto) (0.11-0.59) K/uL Eos # (Auto) (0-0.5) K/uL Baso # (Auto) (0-0.2) K/uL Immature Gran # (Auto) (0.00-0.02) K/uL PT 12.1 H (9.0-12.0) Seconds INR 1.2 H (0.9-1.1) APTT 33.1 H (21.0-31.0) Seconds PTT Ratio 1.2 Sodium 137 (136-145) mmol/L Potassium 3.7 (3.5-5.1) mmol/L Chloride 94 L (98-107) mmol/L Carbon Dioxide 39 H (21-32) mmol/L Anion Gap 4.0 (3-11) BUN 8 (7-18) mg/dl Creatinine 1.17 (0.6-1.2) mg/dl Est Cr Clr Drug Dosing 58.3 ml/min Est GFR ( Amer) 53.5 Est GFR (Non-Af Amer) 46.2 BUN/Creatinine Ratio 7.1 L (10-20) Glucose 132 H (70-99) mg/dl Lactate 0.8 (0.4-2.0) mmol/L Calcium 8.2 L (8.5-10.1) mg/dl Magnesium 1.4 L (1.8-2.4) mg/dl Total Bilirubin 0.3 (0.2-1) mg/dl AST 16 (15-37) U/L ALT 10 L (12-78) U/L Alkaline Phosphatase 75 (45-117) U/L Troponin I < 0.015 (0-0.045) ng/ml NT-Pro-B Natriuret Pep 417 (0-900) pg/ml Total Protein 6.8 (6.4-8.2) gm/dl Albumin 2.9 L (3.4-5.0) gm/dl Globulin 3.9 (2.5-4.0) gm/dl Albumin/Globulin Ratio 0.7 L (0.9-2) COVID-19 Eval Order COVID-19 PCR (Negative) Administered Medications Discontinued Medications Furosemide (Furosemide 40 Mg/4 Ml Vial) 40 mg IV NOW STA Stop: 08/28/20 17:18 Last Admin: 08/28/20 17:29 Dose: 40 mg Documented by: [id number] Clindamycin Phosphate 900 mg/ (Dextrose) 56 mls @ 112 mls/hr IV ONE ONE Stop: 08/28/20 14:37 Last Infusion: 08/28/20 16:10 Dose: 0 mls/hr Documented by: [id number] Admin: 08/28/20 15:45 Dose: 112 mls/hr Documented by: [id number] Magnesium Sulfate/Dextrose (Magnesium Sulfate / D5w) 1 gm in 100 mls @ 100 mls/hr IV Q1H YELITZA Stop: 08/28/20 17:31 Last Admin: 08/28/20 17:34 Dose: 100 mls/hr Documented by: [id number] Infusion: 08/28/20 17:26 Dose: 0 mls/hr Documented by: [id number] Admin: 08/28/20 16:26 Dose: 100 mls/hr Documented by: [id number] Imaging Data Radiologist's Impression: XR chest 1V portable CLINICAL HISTORY: Shortness of breath. COMPARISON STUDY: Chest radiograph July 26, 2020. FINDINGS: Enlargement of the cardiac silhouette is unchanged. There is no pneumothorax or pleural effusion. Linear left basilar opacity favors atelectasis or scarring. No consolidation is identified. Is no evidence for pulmonary edema. IMPRESSION: No acute cardiopulmonary findings. No significant change in appearance of the chest. CT OF THE ABDOMEN AND PELVIS WITHOUT CONTRAST CLINICAL HISTORY: poss urinary obstruction, hydro COMPARISON STUDY: CT of the abdomen and pelvis July 22, 2020. Abdominal series July 23, 2020 TECHNIQUE: Axial images of the abdomen and pelvis were obtained without IV contrast. Images were reviewed in the axial, sagittal, and coronal planes. Automated exposure control was utilized for the study. A dose lowering te chnique was utilized adhering to the principles of ALARA. FINDINGS: Bronchial wall thickening is noted within visualized portions of the lower lungs. There is a small hiatal hernia. No pneumatosis, free air or portal venous gas is present. There is no significant biliary ductal dilatation status post cholecystectomy. There is pancreatic glandular atrophy. Evaluation of the abdomen and pelvis is suboptimal on this unenhanced examination. The liver, spleen, adrenal glands and kidneys are unremarkable. There are no renal, ureteral or bladder calculi. There is no hydronephrosis or hydroureter. The appendix is not visualized. There is colonic diverticulosis without evidence for acute diverticulitis. A Matos balloon is present within the bladder which is collapsed. There is evidence for pelvic floor relaxation. No acute fracture or suspicious lesion is identified within visualized skeletal structures. No lymphadenopathy is present. Body wall edema is most evident anteriorly. There is skin thickening of the anterior abdominal wall. No fluid collection is present. Small fat-containing umbilical hernia is noted. IMPRESSION: 1. No urinary calculi or hydronephrosis. 2. No evidence for a bowel obstruction. 3. Colonic diverticulosis without evidence for acute diverticulitis. 4. Interval development of body wall edema with skin thickening of the anterior abdominal wall. This could reflect edema or cellulitis. No fluid collection. 5. Evidence for pelvic floor relaxation. Discharge Plan Visit Data Chief Complaint: Shortness of Breath/Dyspnea Stated Complaint: SOB,[facility] ED Provider: Erick Oconnell Discharge Problem: SOB (shortness of breath), Hypomagnesemia, Fluid overload, Cellulitis Patient Disposition: Admitted As Inpatient Condition: Fair Forms Stand Alone Forms: [facility] [place] [employer] Prescriptions Prescriptions: No Action albuterol sulfate [Ventolin HFA] 90 mcg/actuation HFA aerosol inhaler 2 puff INHALATION Q6H PRN (Reason: Shortness Of Breath Or Wheezing) Qty: 3 RF: 1 baclofen 10 mg tablet 5 mg PO BID PRN (Reason: Muscle Spasm) RF: 0 sennosides-docusate sodium [Senokot-S] 8.6-50 mg tablet 1 tabcap PO BID PRN (Reason: Constipation) RF: 0 dofetilide [Tikosyn] 125 mcg capsule 250 mcg PO Q12H RF: 0 furosemide [Lasix] 20 mg tablet 40 mg PO QAM RF: 0 albuterol sulfate 2.5 mg /3 mL (0.083 %) solution for nebulization 2.5 mg INHALATION Q4H PRN (Reason: Shortness Of Breath Or Wheezing) Qty: 180 RF: 5 levothyroxine 150 mcg capsule 150 mcg PO QAM RF: 0 carvedilol 3.125 mg tablet 6.25 mg PO BID RF: 0 metformin [Glucophage XR] 500 mg tablet extended release 24 hr 1,000 mg PO PM RF: 0 potassium chloride [Klor-Con M10] 10 mEq tablet,ER particles/crystals 10 meq PO QAM RF: 0 hydrocortisone [Proctosol HC] 2.5 % Cream With Perineal Applicator 1 applic EXT BID PRN (Reason: hemorrhoids) Qty: 30 RF: 2 acetaminophen [Tylenol] 325 mg Tablet 650 mg PO Q6H PRN (Reason: Pain) RF: 0 ondansetron HCl 4 mg tablet 4 mg PO Q6H PRN (Reason: Nausea) RF: 0 cyanocobalamin (vitamin B-12) [Vitamin B-12] 500 mcg Tablet 500 mcg PO QAM RF: 0 pantoprazole [Protonix] 40 mg Tablet,Delayed Release (Dr/Ec) 40 mg PO QAM RF: 0 rivaroxaban 15 mg Tablet 15 mg PO PM RF: 0 Metamucil 3.4 gram/5.4 gram Powder 1 tbsp PO QAM RF: 0 meclizine 25 mg Tablet 25 mg PO Q8H PRN (Reason: Dizziness) RF: 0 Premarin 0.625 mg/gram Cream 1 applic Topical 3XWK RF: 0 multivitamin Tablet 1 tab PO QAM RF: 0 docusate sodium [Colace] 100 mg Capsule 100 mg PO QAM RF: 0 cholecalciferol (vitamin D3) [Vitamin D3] 25 mcg (1,000 unit) Tablet 25 mcg PO QAM RF: 0 Zinc Tablets 1 tab PO QAM RF: 0 oxycodone [OxyContin] 60 mg Tablet Extended Release 12hr 30 mg PO Q12H Qty: 3 RF: 0 oxycodone 10 mg Tablet 10 mg PO Q4H PRN (Reason: Pain) Qty: 10 RF: 0 Referrals Referrals: Hester,Tori [Primary Care Provider] - Discharge Problem: Fluid overload Qualifiers: Hypervolemia type: unspecified Qualified Code(s): E87.70 - Fluid overload, unspecified Cellulitis Qualifiers: Site of cellulitis: trunk Site of cellulitis of trunk: abdominal wall Qualified Code(s): L03.311 - Cellulitis of abdominal wall
[2020-08-28 15:03] LABS: Basophils # (auto) 0.01 K/uL (0-0.2); Basophils % (auto) 0.1 %; Eosinophils % (auto) 4.4 %; Hematocrit (blood only) 33.9 % (37-47); Hemoglobin 10.1 g/dL (12.0-16.0); Immature Granulocytes # (auto) 0.02 K/uL (0.00-0.02); Immature Granulocytes % (auto) 0.3 %; Lymphocytes # (auto) 1.41 K/uL (1.2-3.4); Lymphocytes % (auto) 20.8 %; Mean Corpuscular Hemoglobin 27.2 pg (25-34); Mean Corpuscular Hgb Conc 29.8 g/dL (32-36); Mean Corpuscular Volume 91.1 fL (80-100); Mean Platelet Volume 10.2 fL (7.4-10.4); Monocytes # (auto) 0.78 K/uL (0.11-0.59); Monocytes % (auto) 11.5 %; Neutrophils # (auto) 4.26 K/uL (1.4-6.5); Neutrophils % (auto) 62.9 %; Platelet Count 195 K/uL (130-400); RDW Coefficient of Variation 15.2 % (11.5-14.5); RDW Standard Deviation 50.8 fL (36.4-46.3); Red Blood Count 3.72 M/uL (4.2-5.4); White Blood Count 6.78 K/uL (4.8-10.8)
[2020-08-28 15:13] LABS: INR 1.2 (0.9-1.1); Partial Thromboplastin Ratio 1.2; Partial Thromboplastin Time 33.1 Seconds (21.0-31.0); Prothrombin Time 12.1 Seconds (9.0-12.0)
[2020-08-28 15:21] LABS: Alanine Aminotransferase 10 U/L (12-78); Albumin Level 2.9 gm/dl (3.4-5.0); Aspartate Aminotransferase 16 U/L (15-37); BUN Creatinine Ratio 7.1 (10-20); Blood Urea Nitrogen 8 mg/dl (7-18); Calcium 8.2 mg/dl (8.5-10.1); Carbon Dioxide 39 mmol/L (21-32); Chloride 94 mmol/L (98-107); Creatinine Clr Calc Pharmacy 58.3 ml/min; Est GFR (African American) 53.5; Est GFR (Non-African American) 46.2; Glucose 132 mg/dl (70-99); Magnesium 1.4 mg/dl (1.8-2.4); Potassium 3.7 mmol/L (3.5-5.1); Sodium 137 mmol/L (136-145)
[2020-08-28 15:26] LABS: Albumin Globulin Ratio 0.7 (0.9-2); Alkaline Phosphatase 75 U/L (45-117); Bilirubin,Total 0.3 mg/dl (0.2-1); Globulin 3.9 gm/dl (2.5-4.0); NT Pro B Type Natriuretic Pept 417 pg/ml (0-900); Total Protein 6.8 gm/dl (6.4-8.2); Troponin I < 0.015 ng/ml (0-0.045)
--- NOTE | 2020-08-28 16:18 | XRay Report ---
XR chest 1V portable CLINICAL HISTORY: Shortness of breath. COMPARISON STUDY: Chest radiograph July 26, 2020. FINDINGS: Enlargement of the cardiac silhouette is unchanged. There is no pneumothorax or pleural eff usion. Linear left basilar opacity favors atelectasis or scarring. No consolidation is identified. Is no evidence for pulmonary edema. IMPRESSION: No acute cardiopulmonary findings. No significant change in appearance of the chest. ACT 112: Negative or not required by law. Electronically signed by: Pascual Santoro M.D. 08/28/2020 4:17 PM
[2020-08-28] MEDS: MAGNESIUM SULFATE / D5W 1 GM/100 ML BAG IV SCH ×2 (16:26→17:34)
[2020-08-28] MEDS ORDERED: FUROSEMIDE 40 MG/4 ML VIAL IV STA (17:17)
--- NOTE | 2020-08-28 17:42 | CT Scan Report ---
CT OF THE ABDOMEN AND PELVIS WITHOUT CONTRAST CLINICAL HISTORY: poss urinary obstruction, hydro COMPARISON STUDY: CT of the abdomen and pelvis July 22, 2020. Abdominal series July 23, 2020 TECHNIQUE: Axial images of the abdomen and pelvis were obtained without IV contrast. Images were revi ewed in the axial, sagittal, and coronal planes. Automated exposure control was utilized for the betina dy. A dose lowering technique was utilized adhering to the principles of ALARA. FINDINGS: Bronchial wall thickening is noted within visualized portions of the lower lungs. There is a small hiatal hernia. No pneumatosis, free air or portal venous gas is present. There is no signific ant biliary ductal dilatation status post cholecystectomy. There is pancreatic glandular atrophy. Fagn luation of the abdomen and pelvis is suboptimal on this unenhanced examination. The liver, spleen, ad renal glands and kidneys are unremarkable. There are no renal, ureteral or bladder calculi. There is no hydronephrosis or hydroureter. The appendix is not visualized. There is colonic diverticulosis wit hout evidence for acute diverticulitis. A Matos balloon is present within the bladder which is collap sed. There is evidence for pelvic floor relaxation. No acute fracture or suspicious lesion is identif ied within visualized skeletal structures. No lymphadenopathy is present. Body wall edema is most cici dent anteriorly. There is skin thickening of the anterior abdominal wall. No fluid collection is pres ent. Small fat-containing umbilical hernia is noted. IMPRESSION: 1. No urinary calculi or hydronephrosis. 2. No evidence for a bowel obstruction. 3. Colonic diverticulosis without evidence for acute diverticulitis. 4. Interval development of body wall edema with skin thickening of the anterior abdominal wall. This could reflect edema or cellulitis. No fluid collection. 5. Evidence for pelvic floor relaxation. ACT 112: Negative or not required by law. Electronically signed by: Pascual Santoro M.D. 08/28/2020 5:40 PM
[2020-08-28] MEDS ORDERED: ALBUTEROL HFA 8 GM INHALER INH ONE (17:46)
[2020-08-28] MEDS ORDERED: oxyCODONE HCL IR 5 MG TAB (IMMEDIATE RELEASE) PO STA (17:46)
--- NOTE | 2020-08-28 19:04 | History & Physical Report ---
Date of Service August 28, 2020 Assessment & Plan (1) SOB (shortness of breath): CXR: neg for acute Hx of CHF Recent increased lasix at SNF, however pt states there was mininmal UOP response and she continued to have worsening SOB Lasix IV in ED and pt with large urine response as well as feeling much better Feels she does not respond well to generic lasix and better to brand name ECHO pending Trop neg x1, serials pending EKG NSR CXR neg BNP WNL CHF exacerbation is not noted on current workup, however pt feels improved s/p lasix COVID neg Lyme pending (2) Hypomagnesemia: Replaced in the ED Monitor States she generally take PO supplementation (3) Cellulitis: Started on clinda in the ED due to multiple abx allergies, will continue CTAP Noted for likely cellulitis vs edema Blood cx pending (4) Dyslipidemia: continue home meds (5) Paroxysmal atrial fibrillation: continue home meds, xarelto (6) COPD (chronic obstructive pulmonary disease): continue home meds (7) DM type 2 (diabetes mellitus, type 2): continue home meds A1c pending SSI PRN (8) ZEYAD (obstructive sleep apnea): noncompliant with CPAP (9) Hypothyroidism: continue home meds (10) Hypokalemia: WNL on admission Continue home K dosing, 10meq daily (11) DVT prophylaxis: Xarelto as at home History of Present Illness Primary Care Provider: [facility] 75 y/o F c/o SOB and abd pain. Pt states that she has been having worsening SOB over the last 1.5-2 weeks. She has hx of CHF and lasix use, so SNF was attempting increased lasix during this time without improvement. Pt states that she was SOB at rest or with ambulation. Occasional L sided chest pain under her breast that would come on with SOB but resolve "by the time I called and nursing got to me". She states abd redness and warmth with increased bloating. She has been constipated lately and was taking metamucil and a stool softener, but without help. No internal abd pain, only the pain related to the external skin. She has had intermittent n/v recently, last emesis yesterday AM. She has not attempted PO today due to feeling unwell and then being in the ED, but is hungry now. She has no prior hx of abd wall cellulitis. She does have hx of pancreatitis, but this feels different to her. Pt states she has been measuring her urine herself and it has not been much until getting lasix in the ED. She states that she responds better to brand name lasix over furosemide in the past. Pt states that she has not been OOB, but her SOB at rest is much better. No further chest pain. 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 Still feels hot to her. Allergies Allergy/AdvReac Type Severity Reaction Status Date / Time arformoterol Allergy Severe TACHYCARDIA Verified 08/28/20 15:14 aspirin Allergy Severe HIVES, SOB Verified 08/28/20 15:14 ciprofloxacin Allergy Severe Unknown Verified 08/28/20 15:14 clarithromycin [From Biaxin] Allergy Severe Unknown Verified 08/28/20 15:14 Iodinated Contrast Media Allergy Severe "CAUSED Verified 08/28/20 15:14 ASTHMA ATTACK" metaproterenol [From Alupent] Allergy Severe Unknown Verified 08/28/20 15:14 metformin [From Riomet] Allergy Severe Unknown Verified 08/28/20 15:14 NSAIDS (Non-Steroidal Allergy Severe Hives Verified 08/28/20 15:14 Anti-Inflamma Penicillins Allergy Severe SOB, HIVES Verified 08/28/20 15:14 pioglitazone [From Actos] Allergy Severe Unknown Verified 08/28/20 15:14 sotalol Allergy Severe increased Verified 08/28/20 15:14 breathing problems Sulfa (Sulfonamide Allergy Severe Anaphylaxis Verified 08/28/20 15:14 Antibiotics) tiotropium Allergy Severe Unknown Verified 08/28/20 15:14 [From Spiriva with HandiHaler] aspartame Allergy Intermediate HIVES, Verified 08/28/20 15:14 ITCHY chlorhexidine Allergy Intermediate BLISTERY Verified 08/28/20 15:14 RASH ipratropium Allergy Mild SHORTNESS Verified 08/28/20 15:14 OF BREATH povidone Allergy Mild BLISTER Verified 08/28/20 15:14 WITH TAPE fish derived Allergy Unknown Unknown Verified 08/28/20 15:14 Fish Containing Products Allergy Verified 08/28/20 15:14 shellfish derived Allergy Verified 08/28/20 15:14 stevioside [From Stevia] Allergy Verified 08/28/20 15:14 meperidine AdvReac Intermediate Gastrointestinal Verified 08/28/20 15:14 Upset morphine AdvReac Intermediate Gastrointestinal Verified 08/28/20 15:14 Upset adhesive AdvReac Mild BLISTERS Verified 08/28/20 15:14 WITH TAPE banana AdvReac Verified 08/28/20 15:14 sucralose AdvReac Verified 08/28/20 15:14 [From Splenda (sucralose)] Home Medications Home Medications Medication Instructions Recorded Confirmed Type Premarin 1 applic TOPICAL [id number] 07/24/18 08/28/20 History meclizine 25 mg PO Q8H PRN 07/24/18 08/28/20 History levothyroxine 150 mcg capsule 150 mcg PO QAM 06/17/19 08/28/20 History metformin [Glucophage XR] 1,000 mg PO PM 08/04/19 08/28/20 History potassium chloride [Klor-Con M10] 10 meq PO QAM 08/04/19 08/28/20 History hydrocortisone [Proctosol HC] 1 applic EXT BID PRN #30 gm 08/17/19 08/28/20 Rx baclofen 10 mg tablet 5 mg PO BID PRN tab 08/28/19 08/28/20 History dofetilide 125 mcg capsule 250 mcg PO Q12H cap 08/28/19 08/28/20 History sennosides 8.6 mg-docusate sodium 1 tabcap PO BID PRN 08/28/19 08/28/20 History 50 mg tablet carvedilol 3.125 mg tablet 6.25 mg PO BID 09/16/19 08/28/20 History albuterol sulfate 90 mcg/actuation 2 puff INHALATION Q6H PRN #3 07/01/20 08/28/20 Rx aerosol inhaler inhaler albuterol sulfate 2.5 mg INHALATION Q4H PRN #180 ml 07/14/20 08/28/20 Rx furosemide 20 mg tablet 40 mg PO QAM 07/14/20 08/28/20 History Zinc Tablets 1 tab PO QAM 07/22/20 08/28/20 History cholecalciferol (vitamin D3) 25 mcg PO QAM 07/22/20 08/28/20 History [Vitamin D3] docusate sodium [Colace] 100 mg PO QAM 07/22/20 08/28/20 History multivitamin 1 tab PO QAM 07/22/20 08/28/20 History oxycodone [OxyContin] 30 mg PO Q12H #3 tab 07/26/20 08/28/20 Rx oxycodone 10 mg PO Q4H PRN #10 tab 07/27/20 08/28/20 Rx acetaminophen [Tylenol] 650 mg PO Q6H PRN 08/28/20 08/28/20 History cyanocobalamin (vitamin B-12) 500 mcg PO QAM 08/28/20 08/28/20 History [Vitamin B-12] ondansetron HCl 4 mg PO Q6H PRN 08/28/20 08/28/20 History pantoprazole [Protonix] 40 mg PO QAM 08/28/20 08/28/20 History psyllium husk [Metamucil] 1 tbsp PO QAM 08/28/20 08/28/20 History rivaroxaban 15 mg PO PM 08/28/20 08/28/20 History Past Med/Surg History Medical History (Updated 08/28/20 @ 19:13 by Brynn Beverly DO) Asthma Chronic anticoagulation Chronic diastolic CHF (congestive heart failure) Chronic respiratory failure with hypoxia CKD (chronic kidney disease), stage III COPD (chronic obstructive pulmonary disease) Cor pulmonale, chronic DM type 2 (diabetes mellitus, type 2) Dyslipidemia History of TIA (transient ischemic attack) Hypothyroidism ZEYAD (obstructive sleep apnea) Paroxysmal atrial fibrillation Surgical History H/O arthroscopic knee surgery History of appendectomy History of cataract surgery History of cholecystectomy History of hysterectomy Family History Father Asthma Lung cancer Mother Diabetes Heart disease Brother Colon cancer Daughter Diabetes Brother Stroke Social History Smoking Status: Never smoker Second Hand Exposure: No; Hx Alcohol Use: No Hx Substance Use: No Preferred Language: Maori Communication Ability: Effective Geriatric Assistant Required: No Beliefs That Will Affect Care: None marital status: Current Living Situation: Alone Current Living Situation Comment: lives with son Feels Safe at Home: Yes Assistive Devices: Walker Review of Systems Review of Systems: Pertinent positives and negatives reviewed in HPI--all others negative Physical Exam Constitutional: WD/WN, vitals as above + morbidly obese Eyes: normal visual solorzano by confrontation and + anicteric sclerae Neck: normal visual inspection and trachea midline Respiratory: normal respiratory effort; no respiratory distress Auscultation: no crackles and no wheezes Cardiovascular: Rate/Rhythm: regular rate and regular rhythm Gastrointestinal (Abdomen): Inspection/Auscultation: abdomen not distended Percussion/Palpation: abdomen soft; abdomen nontender Musculoskeletal: Head/Neck/Chest: normocephalic and head atraumatic negative for edema, peripheral pulses intact Skin: hot to the touch on the abd, no open lesions Redness along entire abd that fades under the breasts Neurologic: awake; not confused Speech / Cognition: normal speech Psychiatric: A+Ox3, euthymic affect Results & Data Results & Data ([facility]) Vital Signs (Past 12 Hours) Vital Signs Pulse Resp BP Pulse Ox 08/28/20 18:50 76 12 95 08/28/20 18:40 76 17 99 08/28/20 18:31 74 16 117/66 96 08/28/20 18:30 73 19 97 08/28/20 18:20 74 18 97 08/28/20 18:10 74 22 97 08/28/20 18:01 74 20 130/56 L 98 08/28/20 18:00 73 19 98 08/28/20 17:50 75 19 98 08/28/20 17:40 75 13 99 08/28/20 17:32 76 18 130/71 99 08/28/20 17:31 79 20 99 08/28/20 17:29 77 19 101/59 L 100 08/28/20 17:23 88 17 08/28/20 17:01 69 13 75/49 L 98 08/28/20 17:00 67 19 97 08/28/20 16:50 65 15 97 08/28/20 16:40 74 23 08/28/20 16:31 73 19 122/78 99 08/28/20 16:30 72 16 100 08/28/20 16:20 73 16 100 08/28/20 16:10 73 16 100 08/28/20 16:00 70 20 100 08/28/20 15:50 69 17 98 08/28/20 15:40 69 17 99 08/28/20 15:30 72 18 106/47 L 97 08/28/20 15:20 70 15 100 08/28/20 15:10 68 15 100 08/28/20 15:00 68 19 107/46 L 100 08/28/20 14:55 68 19 125/38 L 100 08/28/20 14:50 73 18 100 08/28/20 14:40 23 100 08/28/20 14:30 15 100 08/28/20 14:20 69 16 99 08/28/20 14:10 70 22 99 08/28/20 14:08 74 16 100 08/28/20 14:00 71 20 98 08/28/20 13:50 71 34 H 100 08/28/20 13:45 70 21 139/75 100 Diagnostic Findings CXR: neg for acute CTAP: abd wall cellulitis vs edema ECG Rhythm: normal sinus Code Status & VTE Plan Code Status Full code, although pt states no prolonged mechanical life support, feeding tubes, etc. She states she watched her 's cousin go through repeated intubations and does not want that VTE Prophylaxis Plan VTE Prophylaxis will be ordered: Yes PG Care Time/CCT Total # of Minutes Spent Total Time Spent with Patient: Total time spent is greater than 50% in coordination of care (as documented) at patient's floor/unit and/or counseling patient: Coding Level of Care Code 71769 Initial Inpt Care Lvl 3 Diagnoses SOB (shortness of breath) R06.02 Hypomagnesemia E83.42 Cellulitis L03.311 Site of cellulitis: trunk Site of cellulitis of trunk: abdominal wall Dyslipidemia E78.5 Paroxysmal atrial fibrillation I48.0 COPD (chronic obstructive pulmonary disease) J44.9 COPD type: unspecified COPD DM type 2 (diabetes mellitus, type 2) E11.9 ZEYAD (obstructive sleep apnea) G47.33 Hypothyroidism E03.9 Hypokalemia E87.6 DVT prophylaxis Z29.9 (1) Cellulitis Site of cellulitis: trunk Site of cellulitis of trunk: abdominal wall Qu alified Code(s): L03.311 - Cellulitis of abdominal wall (2) COPD (chronic obstructive pulmonary disease) COPD type: unspecified COPD Qualified Code(s): J44.9 - Chronic obstructive pulmonary disease, unspecified
[2020-08-28] MEDS ORDERED: ALBUTEROL HFA 8 GM INHALER INH PRN (21:09)
[2020-08-28] MEDS ORDERED: BACLOFEN 10 MG TAB PO PRN (21:09)
[2020-08-28] MEDS ORDERED: DEXTROSE 50% 50 ML SYRINGE IV PRN (21:09)
[2020-08-28] MEDS ORDERED: GLUCOSE 40% GEL 15 GM TUBE PO PRN (21:09)
[2020-08-28] MEDS ORDERED: ACETAMINOPHEN 325 MG TAB PO PRN (21:09)
[2020-08-28] MEDS ORDERED: MAGNESIUM HYDROXIDE SUSP 30 ML UDC PO ONE (21:09)
[2020-08-28] MEDS ORDERED: GLUCAGON FOR INJ 1 MG VIAL SQ PRN (21:09)
[2020-08-28] MEDS ORDERED: MECLIZINE HCL 25 MG TAB PO PRN (21:09)
[2020-08-28] MEDS ORDERED: ONDANSETRON 4 MG OD TAB PO PRN (21:09)
[2020-08-28] MEDS ORDERED: FUROSEMIDE 40 MG/4 ML VIAL IV ONE (21:09)
[2020-08-28] MEDS ORDERED: MAGNESIUM HYDROXIDE SUSP 30 ML UDC PO PRN (21:09)
[2020-08-28] MEDS ORDERED: GLUCOSE 10 TABS/TUBE PO PRN (21:09)
[2020-08-28] MEDS ORDERED: ALBUTEROL 0.083% NEBU SOLN 3 ML VIAL INH PRN (21:09)
[2020-08-28 21:49] LABS: Lyme Ab IgG w/WB Rflx Negative (Negative); Lyme Ab IgM w/WB Rflx Negative (Negative)
[2020-08-28] MEDS: DOFETILIDE 125 MCG CAPSULE PO SCH (22:34)
[2020-08-28] MEDS: carvediloL 6.25 MG TAB PO SCH (22:34)
[2020-08-28] MEDS: RIVAROXABAN 15 MG TAB PO SCH (22:35)
[2020-08-28] MEDS: oxyCODONE HCL 10 MG TABCR (OxyCONTIN) PO SCH (22:35)
[2020-08-28] MEDS: INSULIN ASPART 100 UNITS/ML 3 ML PEN SC SCH (22:36)
[2020-08-28] MEDS: SENNA 8.6 MG TAB PO SCH (22:36)
[2020-08-28] MEDS: metFORMIN HCL ER 500 MG TABCR PO SCH (22:36)
[2020-08-28] MEDS: CLINDAMYCIN 600 MG in DEXTROSE 5% 50 ML IV SCH (23:53)
[2020-08-29] MEDS: ACETAMINOPHEN 325 MG TAB PO PRN (00:55)
[2020-08-29 03:49] LABS: Basophils # (auto) 0.02 K/uL (0-0.2); Basophils % (auto) 0.3 %; Eosinophils # (auto) 0.33 K/uL (0-0.5); Eosinophils % (auto) 4.6 %; Hematocrit (blood only) 30.9 % (37-47); Hemoglobin 9.4 g/dL (12.0-16.0); Immature Granulocytes # (auto) 0.02 K/uL (0.00-0.02); Immature Granulocytes % (auto) 0.3 %; Lymphocytes # (auto) 1.34 K/uL (1.2-3.4); Lymphocytes % (auto) 18.6 %; Mean Corpuscular Hemoglobin 27.5 pg (25-34); Mean Corpuscular Hgb Conc 30.4 g/dL (32-36); Mean Corpuscular Volume 90.4 fL (80-100); Mean Platelet Volume 10.3 fL (7.4-10.4); Monocytes % (auto) 12.5 %; Neutrophils % (auto) 63.7 %; Platelet Count 186 K/uL (130-400); RDW Coefficient of Variation 15.1 % (11.5-14.5); RDW Standard Deviation 49.9 fL (36.4-46.3); Red Blood Count 3.42 M/uL (4.2-5.4); White Blood Count 7.21 K/uL (4.8-10.8)
[2020-08-29] MEDS: oxyCODONE HCL IR 5 MG TAB (IMMEDIATE RELEASE) PO PRN ×2 (04:12→15:59)
[2020-08-29 04:23] LABS: BUN Creatinine Ratio 6.7 (10-20); Blood Urea Nitrogen 8 mg/dl (7-18); Carbon Dioxide 44 mmol/L (21-32); Chloride 92 mmol/L (98-107); Creatinine Clr Calc Pharmacy 57.1 ml/min; Est GFR (African American) 51.4; Est GFR (Non-African American) 44.4; Glucose 119 mg/dl (70-99); Magnesium 1.7 mg/dl (1.8-2.4); Potassium 3.6 mmol/L (3.5-5.1); Sodium 137 mmol/L (136-145); Troponin I < 0.015 ng/ml (0-0.045)
[2020-08-29] MEDS: LEVOTHYROXINE SODIUM 150 MCG TABLET PO SCH (06:20)
[2020-08-29 06:47] LABS: Estimated Average Glucose 171 mg/dl; Hemoglobin A1C 7.6 % (4.5-5.6)
[2020-08-29] MEDS: CHOLECALCIFEROL 1,000 UNITS 25 MCG TAB PO SCH (08:59)
[2020-08-29] MEDS: CYANOCOBALAMIN 500 MCG TABLET (VITAMIN B-12) PO SCH (08:59)
[2020-08-29] MEDS: SENNA 8.6 MG TAB PO SCH (08:59)
[2020-08-29] MEDS: DOFETILIDE 125 MCG CAPSULE PO SCH ×2 (08:59→21:45)
[2020-08-29] MEDS: oxyCODONE HCL 10 MG TABCR (OxyCONTIN) PO SCH ×2 (08:59→20:51)
[2020-08-29] MEDS: ZINC SULFATE 220 MG CAPSULE PO SCH (08:59)
[2020-08-29] MEDS: PANTOprazole 40 MG TAB PO SCH (08:59)
[2020-08-29] MEDS: DOCUSATE SODIUM 100 MG CAP PO SCH (09:00)
[2020-08-29] MEDS: carvediloL 6.25 MG TAB PO SCH ×2 (09:00→21:44)
[2020-08-29] MEDS: MULTIVITAMIN TAB PO SCH (09:00)
[2020-08-29] MEDS ORDERED: FUROSEMIDE 40 MG TAB PO SCH (09:00)
[2020-08-29] MEDS: PSYLLIUM 58.6% POWDER PACKET PO SCH (09:00)
[2020-08-29] MEDS ORDERED: POTASSIUM CHLORIDE 10 MEQ TABCR PO SCH (09:00)
[2020-08-29] MEDS: MAGNESIUM HYDROXIDE SUSP 30 ML UDC PO SCH (09:04)
[2020-08-29] MEDS: CLINDAMYCIN 600 MG in DEXTROSE 5% 50 ML IV SCH ×2 (09:08→16:02)
[2020-08-29] MEDS: INSULIN ASPART 100 UNITS/ML 3 ML PEN SC SCH ×4 (09:09→20:52)
[2020-08-29] MEDS: PREMARIN VAG CRM 14 APPLN/30 GM TUBE PV SCH (09:09)
[2020-08-29] MEDS: ONDANSETRON INJ 2 MG/ML 2 ML VIAL IV PRN (10:04)
--- NOTE | 2020-08-29 10:07 | Electrocardiogram Report ---
Test Reason : Blood Pressure : / mmHG Vent. Rate : 071 BPM Atrial Rate : 071 BPM P-R Int : 182 ms QRS Dur : 072 ms QT Int : 428 ms P-R-T Axes : 065 047 057 degrees QTc Int : 465 ms Poor data quality, interpretation may be adversely affected Normal sinus rhythm Low voltage QRS Cannot rule out Anterior infarct , age undetermined Abnormal ECG When compared with ECG of 22-JUL-2020 12:36, QRS voltage has decreased ST now depressed in Lateral leads Nonspecific T wave abnormality no longer evident in Inferior leads Confirmed by Jin Headley ([id number]) on 08/29/2020 10:07:07 AM Referred By: [facility] Confirmed By:Jin Headley
--- NOTE | 2020-08-29 10:27 | History & Physical Bridge Note ---
Date of Service August 29, 2020 History & Physical Bridge Note Pt admitted from [facility], however upon further review it appears she is there for rehab and not as a permanent placement with plans for f/u with Dr. Swann. [facility] transferred to their service.
--- NOTE | 2020-08-29 12:03 | XCELERA ---
[id number]
[2020-08-29] MEDS ORDERED: ARTIFICIAL TEARS OPB PRN (13:54)
[2020-08-29] MEDS ORDERED: SODIUM CHLORIDE 0.65% NA SOLN 45 ML (OCEAN) ONE (13:54)
[2020-08-29] MEDS ORDERED: SODIUM CHLORIDE 0.65% NA SOLN 45 ML (OCEAN) PRN (13:54)
--- NOTE | 2020-08-29 14:00 | Hospitalist Progress Note ---
Date of Service August 29, 2020 Assessment & Plan (1) Acute on chronic respiratory failure with hypoxemia: (2) Acute diastolic heart failure: She is describing progressive weight gain and dyspnea on exertion over the last couple of weeks and feels somewhat better after diuretics. Holding further diuresis in the setting of renal insufficiency. Low salt intake. Daily standing weight. She has underlying COPD, however, there is no wheezing on exam. Requiring 4L NC continuously and she is typically on 2LPM continuoulsy. There has also not been any coughing or sputum production and no wheezing on exam. Cont to diureses as able and monitor clinical progress. PT/OT, cont CPAP QHS (3) ZEYAD (obstructive sleep apnea): Pt with an elevated bicarb this morning, and has risk factors for ZEYAD. I don't see this mentioned in the last two pulm notes, so will look further. Sleep study recommended as outpatient if she doesn't already carry this diagnosis. (4) Acute kidney failure: Acute kidney insufficiency 2/2 recent diuretics. Holding diuretics now. REeeat BMP in am. (5) COPD (chronic obstructive pulmonary disease): appears stable, cont home inhaler therapy and PRN bronchodilators (6) DM type 2 (diabetes mellitus, type 2): Oral agents held and she is on basal bolus insulin therapy while admitted. Around goal sugar. (7) Paroxysmal atrial fibrillation: Rhythm controlled with Dofetilide, continues on Xarelto for AC. (8) Chronic anticoagulation: Xarelto (9) DJD (degenerative joint disease) of knee: chronic oxycodone use (10) Morbid obesity: (11) Chronic pain syndrome: Cont chronic oxycodone use. This is causing her itching but warm against too much benadryl in combination with this out of concern for respiratory depression (12) DVT prophylaxis: Xarelto Full Code Dispo-uncertain at this time. Carli Meek DO [facility] Hospitalist Admission and Anticipated Discharge Date Admission Date: August 28, 2020 Subjective Pt states that she feels slightly better today with respect to her breathing She still feels fluid overloaded She has some baseline [place] where she can only walk about 10 ft or so at baseline when feeling her best. She has no orthopnea reported She is obese at baseline and lives at [facility]. She is uncertain how much fluid she has gained over the past month since being in the hospital. She feels as though her dry weight is somewhere around 260-275 She received Lasix 40 IV yesterday and diuresed approximately 1L but now has some renal insufficiency so further diuretics are being held. Review of Systems Review of Systems: All systems reviewed & are unremarkable except as noted in Subjective Physical Exam Physical Exam: CONSTITUTIONAL: obese, vitals as above, generally well- appearing EYES: EOMI bilaterally, PERRL, normal conjunctivae, no scleral icterus, no fundoscopic abnormality ENT: external ear and nose normal, oropharynx clear, no TM abnormality, no maxillary or ethmoid sinus tenderness NECK: trachea midline, no lymphadenopathy, normal thyroid RESPIRATORY: clear to auscultation bilaterally, no crackles, rales or wheezes, normal respiratory effort CARDIOVASCULAR: regular rate and rhythm, S1 and 2 heard without murmurs, gallops or rubs, no JVD, no peripheral edema, no carotid bruits CHEST: inspection of chest was normal (+pacemaker, +port) GASTROINTESTINAL: normal bowel sounds, soft, nontender, no hepatomegaly, no guarding MUSCULOSKELETAL: strength 5/5 throughout, head is normocephalic and atraumatic, neck supple, normal palpation of chest wall without tenderness SKIN: warm and dry, no rashes NEUROLOGIC: patellar DTRs 2+ bilat. PERRL, EOMI, no facial palsy, no dysarthria. Touch, pain and proprioception normal. CN 2-12 grossly intact, no sensory deficit, normal cognition, normal speech, no tremor PSYCHIATRIC: alert cooperative and oriented to person, place and time. Euthymic mood, makes good eye contact, language grossly intact, recent and remote memory grossly intact. LYMPHATIC: no LAD Results & Data Results & Data ([facility]) Vital Signs (Past 12 Hours) Vital Signs Temp Pulse Pulse Pulse Resp BP Pulse Ox 08/29/20 11:43 36.8 C 65 19 100/55 L 95 08/29/20 08:10 73 08/29/20 07:24 36.7 C 77 20 117/59 L 97 08/29/20 04:06 36.9 C 71 18 112/49 L 95 Laboratory Results Short CBC 08/28/20 08/29/20 Range/Units 14:46 03:28 WBC 6.78 7.21 (4.8-10.8) K/uL Hgb 10.1 L 9.4 L (12.0-16.0) g/dL Hct 33.9 L 30.9 L (37-47) % Plt Count 195 186 (130-400) K/uL BMP 08/28/20 08/29/20 14:46 03:28 Sodium 137 137 Potassium 3.7 3.6 Chloride 94 L 92 L Carbon Dioxide 39 H 44 H* BUN 8 8 Creatinine 1.17 1.21 H Glucose 132 H 119 H Calcium 8.2 L 8.0 L Cardiac Enzymes 08/28/20 08/28/20 08/29/20 Range/Units 14:46 21:47 03:28 Troponin I < 0.015 < 0.015 < 0.015 (0-0.045) ng/ml Liver Function 08/28/20 Range/Units 14:46 Total Bilirubin 0.3 (0.2-1) mg/dl AST 16 (15-37) U/L ALT 10 L (12-78) U/L Alkaline Phosphatase 75 (45-117) U/L Albumin 2.9 L (3.4-5.0) gm/dl Medications Administered Current Inpatient Medications Acetaminophen (Acetaminophen 325 Mg Tab) 650 mg PO Q4H PRN PRN Reason: Pain or Fever Stop: 09/27/20 21:08 Last Admin: 08/29/20 00:55 Dose: 650 mg Documented by: Albuterol (Albuterol 0.083% Nebu Soln 3 Ml Vial) 2.5 mg INH Q4H PRN PRN Reason: Shortness Of Breath Or Wheezing Stop: 09/27/20 21:08 Albuterol (Albuterol Hfa 8 Gm Inhaler) 2 puffs INH Q6H PRN PRN Reason: Shortness Of Breath Or Wheezin Stop: 09/27/20 21:08 Artificial Tears (Artificial Tears) 2 drops OPB Q4H PRN PRN Reason: dry eyes Stop: 09/28/20 13:53 Baclofen (Baclofen 10 Mg Tab) 5 mg PO BID PRN PRN Reason: Muscle Spasm Stop: 09/27/20 21:08 Carvedilol (Carvedilol 6.25 Mg Tab) 6.25 mg PO BID YELITZA Stop: 09/27/20 21:08 Last Admin: 08/29/20 09:00 Dose: 6.25 mg Documented by: Cyanocobalamin (Cyanocobalamin 500 Mcg Tablet (Vitamin B-12)) 500 mcg PO QAM YELITZA Stop: 09/28/20 08:59 Last Admin: 08/29/20 08:59 Dose: 500 mcg Documented by: Dextrose (Dextrose 50% 50 Ml Syringe) 25 - 50 ml IV UD PRN; Protocol PRN Reason: Hypoglycemia Protocol Stop: 09/27/20 21:08 Diphenhydramine HCl (Diphenhydramine Capsule 25 Mg Cap) 12.5 mg PO Q6H PRN PRN Reason: itching Stop: 09/28/20 13:56 Docusate Sodium (Docusate Sodium 100 Mg Cap) 100 mg PO QAM [facility] Stop: 09/28/20 08:59 Last Admin: 08/29/20 09:00 Dose: 100 mg Documented by: Dofetilide (Dofetilide 125 Mcg Capsule) 250 mcg PO Q12 YELITZA Stop: 09/27/20 21:08 Last Admin: 08/29/20 08:59 Dose: 250 mcg Documented by: Estrogens Conjugated (Premarin Vag Crm 14 Appln/30 Gm Tube) 1 appln PV MoWeFr@0900 [facility] Stop: 09/28/20 08:59 Last Admin: 08/29/20 09:09 Dose: 1 appln Documented by: Furosemide (Furosemide 40 Mg Tab) 40 mg PO QAM [facility] Stop: 09/28/20 08:59 Last Admin: 08/29/20 11:03 Dose: 40 mg Documented by: Glucagon (Glucagon For Inj 1 Mg Vial) 1 mg SQ UD PRN; Protocol PRN Reason: Hypoglycemia Protocol Stop: 09/27/20 21:08 Glucose (Glucose 10 Tabs/Tube) 4 - 8 tabs PO UD PRN; Protocol PRN Reason: Hypoglycemia Protocol Stop: 09/27/20 21:08 Glucose (Glucose 40% Gel 15 Gm Tube) 15 - 30 gm PO UD PRN; Protocol PRN Reason: Hypoglycemia Protocol Stop: 09/27/20 21:08 Hydrocortisone (Hydrocortisone Hc 2.5% Crm 30gm Tube) 1 appln EXT BID PRN PRN Reason: hemorrhoids Stop: 09/27/20 21:08 Clindamycin Phosphate 600 mg/ (Dextrose) 54 mls @ 100 mls/hr IV Q8H YELITZA Stop: 09/05/20 00:00 Last Infusion: 08/29/20 09:45 Dose: Infused Documented by: Insulin Aspart (Insulin Aspart 100 Units/Ml 3 Ml Pen) 0 units SC ACHS [facility] Stop: 09/27/20 21:08 Last Admin: 08/29/20 12:28 Dose: 2 units Documented by: Levothyroxine Sodium (Levothyroxine Sodium 150 Mcg Tablet) 150 mcg PO DAILYBB [facility] Stop: 09/28/20 06:29 Last Admin: 08/29/20 06:20 Dose: 150 mcg Documented by: Magnesium Hydroxide (Magnesium Hydroxide Susp 30 Ml Udc) 30 ml PO Q12H PRN PRN Reason: Constipation Stop: 09/27/20 21:08 Magnesium Hydroxide (Magnesium Hydroxide Susp 30 Ml Udc) 30 ml PO DAILY [facility] Stop: 09/28/20 08:59 Last Admin: 08/29/20 09:04 Dose: Not Given Documented by: Meclizine HCl (Meclizine Hcl 25 Mg Tab) 25 mg PO Q8H PRN PRN Reason: Dizziness Stop: 09/27/20 21:08 Metformin HCl (Metformin Hcl Er 500 Mg Tabcr) 1,000 mg PO QDD [facility] Stop: 09/27/20 21:08 Last Admin: 08/28/20 22:36 Dose: 1,000 mg Documented by: Miscellaneous (Carbohydrates For Hypoglycemia ) 15 - 30 gm PO UD PRN PRN Reason: Hypoglycemia Protocol Stop: 09/27/20 21:08 Multivitamins (Multivitamin Tab) 1 tab PO QAM [facility] Stop: 09/28/20 08:59 Last Admin: 08/29/20 09:00 Dose: 1 tab Documented by: Ondansetron HCl (Ondansetron 4 Mg Od Tab) 4 mg PO Q6H PRN PRN Reason: Nausea Stop: 09/27/20 21:08 Ondansetron HCl (Ondansetron Inj 2 Mg/Ml 2 Ml Vial) 4 mg IV Q6H PRN PRN Reason: Nausea Stop: 09/27/20 21:08 Last Admin: 08/29/20 10:04 Dose: 4 mg Documented by: Oxycodone HCl (Oxycodone Hcl Ir 5 Mg Tab (Immediate Release)) 10 mg PO Q4H PRN PRN Reason: Pain Stop: 09/11/20 21:08 Last Admin: 08/29/20 04:12 Dose: 10 mg Documented by: Oxycodone HCl (Oxycodone Hcl 10 Mg Tabcr (Oxycontin)) 30 mg PO Q12H [facility] Stop: 09/27/20 21:08 Last Admin: 08/29/20 08:59 Dose: 30 mg Documented by: Pantoprazole Sodium (Pantoprazole 40 Mg Tab) 40 mg PO [facility] Stop: 09/28/20 08:59 Last Admin: 08/29/20 08:59 Dose: 40 mg Documented by: Potassium Chloride (Potassium Chloride 10 Meq Tabcr) 10 meq PO [facility] Stop: 09/28/20 08:59 Last Admin: 08/29/20 09:00 Dose: 10 meq Documented by: Psyllium Hydrophilic Mucilloid (Psyllium 58.6% Powder Packet) 1 pkt PO [facility] Stop: 09/28/20 08:59 Last Admin: 08/29/20 09:00 Dose: 1 pkt Documented by: Rivaroxaban (Rivaroxaban 15 Mg Tab) 15 mg PO QDD [facility] Stop: 09/27/20 21:08 Last Admin: 08/28/20 22:35 Dose: 15 mg Documented by: Senna/Docusate Sodium (Docusate Sodium/Senna 50/8.6mg Tab) 1 tab PO BID PRN PRN Reason: Constipation Stop: 09/27/20 21:08 Sennosides (Senna 8.6 Mg Tab) 8.6 mg PO [facility] Stop: 09/27/20 21:08 Last Admin: 08/29/20 08:59 Dose: 8.6 mg Documented by: Sodium Chloride (Sodium Chloride 0.65% Na Soln 45 Ml ([place])) 2 sprays NA NOW ONE Stop: 08/29/20 13:55 Sodium Chloride (Sodium Chloride 0.65% Na Soln 45 Ml ([place])) 2 sprays NA Q4H PRN PRN Reason: dry nose Stop: 09/28/20 13:53 Vitamin D (Cholecalciferol 1,000 Units 25 Mcg Tab) 1,000 units PO [facility] Stop: 09/28/20 08:59 Last Admin: 08/29/20 08:59 Dose: 1,000 units Documented by: Zinc Sulfate (Zinc Sulfate 220 Mg Capsule) 220 mg PO [facility] Stop: 09/28/20 08:59 Last Admin: 08/29/20 08:59 Dose: 220 mg Documented by: (1) COPD (chronic obstructive pulmonary disease) COPD type: unspecified COPD Qualified Code(s): J44.9 - Chronic obstructive pulmonary disease, unspecified
[2020-08-29] MEDS ORDERED: diphenhydrAMINE HCl 12.5 MG/5 ML UDC PO PRN (14:01)
[2020-08-29 14:49] LABS: BUN Creatinine Ratio 5.5 (10-20); Calcium 8.4 mg/dl (8.5-10.1); Creatinine Clr Calc Pharmacy 51.5 ml/min; Est GFR (African American) 45.4; Est GFR (Non-African American) 39.2; Magnesium 1.6 mg/dl (1.8-2.4); Potassium 3.5 mmol/L (3.5-5.1)
[2020-08-29] MEDS: RIVAROXABAN 15 MG TAB PO SCH (17:28)
[2020-08-29] MEDS: metFORMIN HCL ER 500 MG TABCR PO SCH (18:20)
[2020-08-29] MEDS: INSULIN GLARGINE SOLOSTAR 100 UNITS/ML 3 ML PEN SC SCH (20:54)
[2020-08-30] MEDS: CLINDAMYCIN 600 MG in DEXTROSE 5% 50 ML IV SCH ×2 (00:06→08:52)
[2020-08-30] MEDS: oxyCODONE HCL IR 5 MG TAB (IMMEDIATE RELEASE) PO PRN (03:07)
[2020-08-30] MEDS: LEVOTHYROXINE SODIUM 150 MCG TABLET PO SCH (04:54)
[2020-08-30 07:39] LABS: Hematocrit (blood only) 32.1 % (37-47); Hemoglobin 9.6 g/dL (12.0-16.0); Mean Corpuscular Hgb Conc 29.9 g/dL (32-36); Mean Corpuscular Volume 90.4 fL (80-100); Mean Platelet Volume 10.1 fL (7.4-10.4); Platelet Count 185 K/uL (130-400); RDW Coefficient of Variation 14.9 % (11.5-14.5); RDW Standard Deviation 50.1 fL (36.4-46.3); Red Blood Count 3.55 M/uL (4.2-5.4); White Blood Count 6.39 K/uL (4.8-10.8)
--- NOTE | 2020-08-30 08:21 | Hospitalist Progress Note ---
Date of Service August 30, 2020 Assessment & Plan (1) Acute on chronic respiratory failure with hypoxemia: She has been 97% on 4LPM-discussed with nurse and ordered titration of oxygen for goal saturation 88-92%. She is on 2LPM continuously at home. (2) COPD (chronic obstructive pulmonary disease): Initially she appeared stable and still doesn't have audible wheezing, however, she is still short of breath now with sputum changes. There is a possible exacerbation that is contributing to her dyspnea, so will add prednisone and scheduled bronchodilator therapy and will switch abx to doxycycline. Cont to wean oxygen to goal 88-92%. Baseline chronic oxygen needs are 2LPM continuously. (3) Acute diastolic heart failure: The patient is morbidly obese, and volume assessments are difficult in ob tolu patients. She is also physically deconditioned at baseline. When she came in she was treated with diuretics for acute diastolic heart failure, and stated she felt as though she was full of fluid. However, since yesterday afternoon she has had a bump in her creatinine causing a hold on any further diuretics. Her urine is concentrated, her lungs are clear, she has no evidence of JVD or peripheral edema on exam, and BMP is 200. Regarding her standing weight this was not assessed until today and she is 132kg. Although this is higher than her "dry weight," it isn't too far from where she was last month. She is euvolemic to hypervolemic, and would continue to diurese her as her kidneys will allow. (4) Cellulitis of abdominal wall: Changing clindamycin to oral doxycycline which will cover both lungs and skin. This appears improved today. (5) ZEYAD (obstructive sleep apnea): Pt with an elevated bicarb this morning, and has risk factors for ZEYAD. Outpatient discussion with PCP regarding alternative therapies for treatment of ZEYAD. Pt reports claustrophobia with any type of mask. She may be a candidate for UPPP surgery. (6) Acute kidney failure: Acute kidney insufficiency 2/2 recent diuretics. Holding diuretics now. Repeat BMP in am. (7) DM type 2 (diabetes mellitus, type 2): Oral agents held and she is on basal bolus insulin therapy while admitted. Around goal sugar. Tightening control since adding prednisone. Keep Lantus at same dose. (8) Paroxysmal atrial fibrillation: Rhythm controlled with Dofetilide, continues on Xarelto for AC. (9) Chronic anticoagulation: Xarelto (10) DJD (degenerative joint disease) of knee: chronic oxycodone use (11) Morbid obesity: (12) Chronic pain syndrome: Cont chronic oxycodone use. Our formulary version is causing her to itch so she is declining it. Benadryl PRN and hydrocodone offered to prevent withdrawal. Patient's son will be bringing her supply tomorrow. (13) DVT prophylaxis: Xarelto Full Code Dispo-uncertain at this time. DO [facility] Admission and Anticipated Discharge Date Admission Date: August 28, 2020 Subjective Pt feeling full of fluid still reports having no BM since (now ) and had success with Relistor in the past some itching kept her up overnight reports yellow tinge to sputum overnight breathing slightly improved but not much no new coughing renal insufficiency so diuretic held son cannot bring her oxycodone, so she declined it this am--out of concern for withdrawal we decided to try hydrocodone as tolerated. Review of Systems Review of Systems: All systems reviewed & are unremarkable except as noted in Subjective Physical Exam Physical Exam: CONSTITUTIONAL: obese, vitals as above, generally well- appearing EYES: normal conjunctivae, no scleral icterus ENT: external ear and nose normal, oropharynx clear, MMM RESPIRATORY: clear to auscultation bilaterally, no crackles, rales or wheezes, normal respiratory effort. Patient is not really taking deep breaths, and there is poor air movement at the bases. CARDIOVASCULAR: regular rate and rhythm, S1 and 2 heard without murmurs, gallops or rubs, no JVD, no peripheral edema GASTROINTESTINAL: soft, +generalized tenderness, nondistended, soft, protuberant MUSCULOSKELETAL: strength 5/5 throughout, head is normocephalic and atraumatic SKIN: warm and dry, erythema on abdominal wall has improved by about 50% today. No drainage noted anywhere. NEUROLOGIC: CN 2-12 grossly intact, no sensory deficit, normal cognition, normal speech, no tremor. No gross focal deficits. PSYCHIATRIC: alert cooperative and oriented to person, place and time. Results & Data Results & Data ([facility]) Vital Signs (Past 12 Hours) Vital Signs Temp Pulse Pulse Resp BP Pulse Ox 08/30/20 07:45 36.8 C 80 18 135/71 97 08/30/20 07:00 77 08/30/20 04:56 36.7 C 73 18 95/46 L 96 08/30/20 01:26 67 08/29/20 23:48 36.9 C 70 19 117/56 L 97 Laboratory Results Short CBC 08/30/20 Range/Units 07:16 WBC 6.39 (4.8-10.8) K/uL Hgb 9.6 L (12.0-16.0) g/dL Hct 32.1 L (37-47) % Plt Count 185 (130-400) K/uL BMP 08/29/20 08/30/20 14:05 07:16 Sodium 135 L 135 L Potassium 3.5 3.3 L Chloride 92 L 92 L Carbon Dioxide 39 H 41 H* BUN 7 8 Creatinine 1.34 H 1.25 H Glucose 132 H 99 Calcium 8.4 L 8.3 L Medications Administered Current Inpatient Medications Acetaminophen (Acetaminophen 325 Mg Tab) 650 mg PO Q4H PRN PRN Reason: Pain or Fever Stop: 09/27/20 21:08 Last Admin: 08/29/20 00:55 Dose: 650 mg Documented by: Hydrocodone Bitart/Acetaminophen (Hydrocodone/Acetaminophen 10/325 Tab) 1 tab PO Q4H PRN PRN Reason: Breakthrough Pain Stop: 09/13/20 13:06 Albuterol (Albuterol 0.083% Nebu Soln 3 Ml Vial) 2.5 mg INH Q6R YELITZA Stop: 09/29/20 18:59 Artificial Tears (Artificial Tears) 2 drops OPB Q4H PRN PRN Reason: dry eyes Stop: 09/28/20 13:53 Baclofen (Baclofen 10 Mg Tab) 5 mg PO BID PRN PRN Reason: Muscle Spasm Stop: 09/27/20 21:08 Carvedilol (Carvedilol 6.25 Mg Tab) 6.25 mg PO BID YELITZA Stop: 09/27/20 21:08 Last Admin: 08/30/20 08:41 Dose: 6.25 mg Documented by: Cyanocobalamin (Cyanocobalamin 500 Mcg Tablet (Vitamin B-12)) 500 mcg PO QAM YELITZA Stop: 09/28/20 08:59 Last Admin: 08/30/20 08:41 Dose: Not Given Documented by: Dextrose (Dextrose 50% 50 Ml Syringe) 25 - 50 ml IV UD PRN; Protocol PRN Reason: Hypoglycemia Protocol Stop: 09/27/20 21:08 Diphenhydramine HCl (Diphenhydramine Hcl 12.5 Mg/5 Ml Udc) 25 mg PO Q6H PRN PRN Reason: itching Stop: 09/28/20 14:00 Docusate Sodium (Docusate Sodium 100 Mg Cap) 100 mg PO QAM [facility] Stop: 09/28/20 08:59 Last Admin: 08/30/20 08:46 Dose: 100 mg Documented by: Dofetilide (Dofetilide 125 Mcg Capsule) 250 mcg PO Q12 [facility] Stop: 09/27/20 21:08 Last Admin: 08/30/20 08:40 Dose: 250 mcg Documented by: Doxycycline Hyclate (Doxycycline Hyclate 100 Mg Cap) 100 mg PO BID YELITZA; Protocol Stop: 09/06/20 20:59 Estrogens Conjugated (Premarin Vag Crm 14 Appln/30 Gm Tube) 1 appln PV MoWeFr@0900 [facility] Stop: 09/28/20 08:59 Last Admin: 08/29/20 09:09 Dose: 1 appln Documented by: Furosemide (Furosemide 40 Mg Tab) 40 mg PO QAM [facility] Stop: 09/28/20 08:59 Last Admin: 08/29/20 11:03 Dose: 40 mg Documented by: Glucagon (Glucagon For Inj 1 Mg Vial) 1 mg SQ UD PRN; Protocol PRN Reason: Hypoglycemia Protocol Stop: 09/27/20 21:08 Glucose (Glucose 10 Tabs/Tube) 4 - 8 tabs PO UD PRN; Protocol PRN Reason: Hypoglycemia Protocol Stop: 09/27/20 21:08 Glucose (Glucose 40% Gel 15 Gm Tube) 15 - 30 gm PO UD PRN; Protocol PRN Reason: Hypoglycemia Protocol Stop: 09/27/20 21:08 Hydrocortisone (Hydrocortisone Hc 2.5% Crm 30gm Tube) 1 appln EXT BID PRN PRN Reason: hemorrhoids Stop: 09/27/20 21:08 Insulin Aspart (Insulin Aspart 100 Units/Ml 3 Ml Pen) 0 units SC ACHS [facility] Stop: 09/27/20 21:08 Last Admin: 08/30/20 11:55 Dose: 8 units Documented by: Insulin Glargine (Insulin Glargine Solostar 100 Units/Ml 3 Ml Pen) 15 units SC BID [facility] Stop: 09/28/20 20:59 Last Admin: 08/30/20 08:42 Dose: 15 units Documented by: Levothyroxine Sodium (Levothyroxine Sodium 150 Mcg Tablet) 150 mcg PO DAILYBB [facility] Stop: 09/28/20 06:29 Last Admin: 08/30/20 04:54 Dose: 150 mcg Documented by: Meclizine HCl (Meclizine Hcl 25 Mg Tab) 25 mg PO Q8H PRN PRN Reason: Dizziness Stop: 09/27/20 21:08 Miscellaneous (Carbohydrates For Hypoglycemia ) 15 - 30 gm PO UD PRN PRN Reason: Hypoglycemia Protocol Stop: 09/27/20 21:08 Multivitamins (Multivitamin Tab) [facility] Stop: 09/28/20 08:59 Last Admin: 08/30/20 08:41 Dose: Not Given Documented by: Ondansetron HCl (Ondansetron 4 Mg Od Tab) 4 mg PO Q6H PRN PRN Reason: Nausea Stop: 09/27/20 21:08 Ondansetron HCl (Ondansetron Inj 2 Mg/Ml 2 Ml Vial) 4 mg IV Q6H PRN PRN Reason: Nausea Stop: 09/27/20 21:08 Last Admin: 08/29/20 10:04 Dose: 4 mg Documented by: Oxycodone HCl (Oxycodone Hcl Ir 5 Mg Tab (Immediate Release)) 10 mg PO Q4H PRN PRN Reason: Pain Stop: 09/11/20 21:08 Last Admin: 08/30/20 03:07 Dose: 10 mg Documented by: Oxycodone HCl (Oxycodone Hcl 10 Mg Tabcr (Oxycontin)) 30 mg PO Q12H [facility] Stop: 09/27/20 21:08 Last Admin: 08/30/20 08:41 Dose: Not Given Documented by: Pantoprazole Sodium (Pantoprazole 40 Mg Tab) [facility] Stop: 09/28/20 08:59 Last Admin: 08/30/20 11:53 Dose: 40 mg Documented by: Potassium Chloride (Potassium Chloride 10 Meq Tabcr) 10 meq [facility] Stop: 09/28/20 08:59 Last Admin: 08/29/20 09:00 Dose: 10 meq Documented by: Prednisone (Prednisone 20 Mg Tab) 40 mg PO DAILY [facility] Stop: 09/04/20 08:59 Rivaroxaban (Rivaroxaban 15 Mg Tab) 15 mg PO QDD [facility] Stop: 09/27/20 21:08 Last Admin: 08/29/20 17:28 Dose: 15 mg Documented by: Senna/Docusate Sodium (Docusate Sodium/Senna 50/8.6mg Tab) 1 tab PO BID PRN PRN Reason: Constipation Stop: 09/27/20 21:08 Sennosides (Senna 8.6 Mg Tab) 8.6 mg PO QAM [facility] Stop: 09/27/20 21:08 Last Admin: 08/30/20 08:41 Dose: 8.6 mg Documented by: Sodium Chloride (Sodium Chloride 0.65% Na Soln 45 Ml ([place])) 2 sprays NA Q4H PRN PRN Reason: dry nose Stop: 09/28/20 13:53 Vitamin D (Cholecalciferol 1,000 Units 25 Mcg Tab) 1,000 [facility] [place] Stop: 09/28/20 08:59 Last Admin: 08/30/20 08:41 Dose: Not Given Documented by: Zinc Sulfate (Zinc Sulfate 220 Mg Capsule) 220 mg PO QAM [facility] Stop: 09/28/20 08:59 Last Admin: 08/30/20 11:54 Dose: 220 mg Documented by: (1) COPD (chronic obstructive pulmonary disease) COPD type: unspecified COPD Qualified Code(s): J44.9 - Chronic obstructive pulmonary disease, unspecified
[2020-08-30 08:33] LABS: BUN Creatinine Ratio 6.6 (10-20); Calcium 8.3 mg/dl (8.5-10.1); Creatinine Clr Calc Pharmacy 55.2 ml/min; Est GFR (African American) 49.4; Est GFR (Non-African American) 42.6; Magnesium 1.6 mg/dl (1.8-2.4); Potassium 3.3 mmol/L (3.5-5.1)
[2020-08-30] MEDS: INSULIN ASPART 100 UNITS/ML 3 ML PEN SC SCH ×4 (08:37→21:12)
[2020-08-30] MEDS: DOFETILIDE 125 MCG CAPSULE PO SCH ×2 (08:40→21:12)
[2020-08-30] MEDS: MAGNESIUM HYDROXIDE SUSP 30 ML UDC PO SCH (08:40)
[2020-08-30] MEDS: CHOLECALCIFEROL 1,000 UNITS 25 MCG TAB PO SCH (08:41)
[2020-08-30] MEDS: SENNA 8.6 MG TAB PO SCH (08:41)
[2020-08-30] MEDS: carvediloL 6.25 MG TAB PO SCH ×2 (08:41→21:12)
[2020-08-30] MEDS: MULTIVITAMIN TAB PO SCH (08:41)
[2020-08-30] MEDS: PSYLLIUM 58.6% POWDER PACKET PO SCH (08:41)
[2020-08-30] MEDS: oxyCODONE HCL 10 MG TABCR (OxyCONTIN) PO SCH ×2 (08:41→21:11)
[2020-08-30] MEDS: CYANOCOBALAMIN 500 MCG TABLET (VITAMIN B-12) PO SCH (08:41)
[2020-08-30] MEDS: INSULIN GLARGINE SOLOSTAR 100 UNITS/ML 3 ML PEN SC SCH ×2 (08:42→21:13)
[2020-08-30] MEDS: DOCUSATE SODIUM 100 MG CAP PO SCH (08:46)
[2020-08-30] MEDS ORDERED: POTASSIUM CHLORIDE CRTAB 20 MEQ TABCR PO STA (10:49)
[2020-08-30] MEDS: PANTOprazole 40 MG TAB PO SCH (11:53)
[2020-08-30] MEDS: ZINC SULFATE 220 MG CAPSULE PO SCH (11:54)
[2020-08-30] MEDS: MAGNESIUM SULFATE / D5W 1 GM/100 ML BAG IV SCH ×2 (11:54→13:20)
[2020-08-30] MEDS ORDERED: METHYLNALTREXONE BROMIDE 12 MG/0.6 ML VIAL SQ ONE (12:56)
[2020-08-30] MEDS ORDERED: diphenhydrAMINE HCl 12.5 MG/5 ML UDC PO PRN (13:10)
[2020-08-30] MEDS ORDERED: predniSONE 20 MG TAB PO ONE (14:15)
[2020-08-30] MEDS: HYDROcodone/ACETAMINOPHEN 10/325 TAB PO PRN (16:20)
[2020-08-30] MEDS: RIVAROXABAN 15 MG TAB PO SCH (17:14)
[2020-08-30] MEDS: ALBUTEROL 0.083% NEBU SOLN 3 ML VIAL INH SCH (19:53)
[2020-08-30] MEDS: DOXYCYCLINE HYCLATE 100 MG CAP PO SCH (21:11)
[2020-08-31] MEDS: ALBUTEROL 0.083% NEBU SOLN 3 ML VIAL INH SCH ×2 (00:32→07:12)
[2020-08-31] MEDS: LEVOTHYROXINE SODIUM 150 MCG TABLET PO SCH (05:34)
[2020-08-31] MEDS: ACETAMINOPHEN 325 MG TAB PO PRN (05:34)
[2020-08-31 07:06] LABS: BUN Creatinine Ratio 9.8 (10-20); Calcium 8.6 mg/dl (8.5-10.1); Creatinine Clr Calc Pharmacy 53.8 ml/min; Est GFR (Non-African American) 41.4; Magnesium 2.2 mg/dl (1.8-2.4); Potassium 3.7 mmol/L (3.5-5.1)
[2020-08-31] MEDS: INSULIN ASPART 100 UNITS/ML 3 ML PEN SC SCH ×4 (08:52→22:02)
[2020-08-31] MEDS: DOCUSATE SODIUM 100 MG CAP PO SCH (08:56)
[2020-08-31] MEDS: DOXYCYCLINE HYCLATE 100 MG CAP PO SCH ×2 (08:58→22:09)
[2020-08-31] MEDS: DOFETILIDE 125 MCG CAPSULE PO SCH ×2 (08:58→21:56)
[2020-08-31] MEDS: SENNA 8.6 MG TAB PO SCH (08:59)
[2020-08-31] MEDS: PANTOprazole 40 MG TAB PO SCH (08:59)
[2020-08-31] MEDS: CYANOCOBALAMIN 500 MCG TABLET (VITAMIN B-12) PO SCH (08:59)
[2020-08-31] MEDS: predniSONE 20 MG TAB PO SCH (08:59)
[2020-08-31] MEDS: MULTIVITAMIN TAB PO SCH (08:59)
[2020-08-31] MEDS: PREMARIN VAG CRM 14 APPLN/30 GM TUBE PV SCH (08:59)
[2020-08-31] MEDS: INSULIN GLARGINE SOLOSTAR 100 UNITS/ML 3 ML PEN SC SCH ×2 (08:59→21:57)
[2020-08-31] MEDS: carvediloL 6.25 MG TAB PO SCH ×2 (08:59→21:57)
[2020-08-31] MEDS: CHOLECALCIFEROL 1,000 UNITS 25 MCG TAB PO SCH (09:00)
[2020-08-31] MEDS: ZINC SULFATE 220 MG CAPSULE PO SCH (09:00)
[2020-08-31] MEDS: oxyCODONE HCL 10 MG TABCR (OxyCONTIN) PO SCH (09:04)
[2020-08-31] MEDS ORDERED: ALBUTEROL 0.5% NEB SOLN 2.5 MG/0.5 ML VIAL NEB STA (14:24)
--- NOTE | 2020-08-31 15:25 | Hospitalist Progress Note ---
Date of Service August 31, 2020 Assessment & Plan (1) Acute on chronic respiratory failure with hypoxemia: -She is on 2LPM continuously at home -initial ED oxygen use around 4 liters/min -currently around 3 liters/min (2) COPD (chronic obstructive pulmonary disease): -as per previous hospitalist Dr. Meek: "she appeared stable and still doesn't have audible wheezing, however, she is still short of breath now with sputum changes. There is a possible exacerbation that is contributing to her dyspnea, so will add prednisone and scheduled bronchodilator therapy and will switch abx to doxycycline. Cont to wean oxygen to goal 88-92%. Baseline chronic oxygen needs are 2LPM continuously." -08/31/2020; Patient breathing on nasal cannula oxygen around 3 liters/min. Patient denies acute distress. No chest pain. no abdomen pain. she denies other symptoms. on lung exam, patient has no audible wheezing but she has requested intermittent nebulizer treatment (3) Acute diastolic heart failure: -as per previous hospitalist Dr. Meek on 08/30/2020 "The patient is morbidly obese, and volume assessments are difficult in obese patients. She is also physically deconditioned at baseline. When she came in she was treated with diuretics for acute diastolic heart failure, and stated she felt as though she was full of fluid. However, since yesterday afternoon she has had a bump in her creatinine causing a hold on any further diuretics. Her urine is concentrated, her lungs are clear, she has no evidence of JVD or peripheral edema on exam, and BMP is 200. Regarding her standing weight this was not assessed until today and she is 132kg. Although this is higher than her "dry weight," it isn't too far from where she was last month. She is euvolemic to hypervolemic, and would continue to diurese her as her kidneys will allow." (4) ZEYAD (obstructive sleep apnea): -Pt with an elevated bicarb this morning, and has risk factors for ZEYAD. Outpatient discussion with PCP regarding alternative therapies for treatment of ZEYAD. Pt reports claustrophobia with any type of mask. -any Uvulopalatopharyngoplasty will require outpatient surgical assessments as outpatient (5) Acute kidney failure: Acute kidney insufficiency secondary to diuretics -her old records show creatinine around the 1 to 1.17 ranges -Lasix has been held when creatinine above 1.25 (6) Cellulitis of abdominal wall: -initially on clindamycin -currently on oral doxycycline (7) Morbid obesity: with BMI of 48.4 (8) DJD (degenerative joint disease) of knee: -likely from morbid obesity -on chronic oxycodone use when at home (9) Chronic pain syndrome: -chronic oxycodone use. Our formulary version is causing her to itch so she is declining it as per previous hospitalist Dr. Meek -Gianlucaadryl PRN and hydrocodone offered to prevent withdrawal (10) DM type 2 (diabetes mellitus, type 2): -Oral agents held and she is on basal bolus insulin therapy while admitted -on Lantus and sliding scale insulin (11) Paroxysmal atrial fibrillation: -Rhythm controlled with Dofetilide, continues on Xarelto for AC. (12) Chronic anticoagulation: -Xarelto (13) DVT prophylaxis: -on Xarelto Full Code Disposition: patient is unsatisfied with recent [facility] physical rehabilitation, geriatric case manager is looking at other physical therapy centers. Admission and Anticipated Discharge Date Admission Date: August 28, 2020 Subjective Patient breathing on nasal cannula oxygen around 3 liters/min. Patient denies acute distress. No chest pain. no abdomen pain. she denies other symptoms. on lung exam, patient has no audible wheezing but she has requested intermittent nebulizer treatment Review of Systems Review of Systems: All systems reviewed & are unremarkable except as noted in Subjective Physical Exam Constitutional: + obese and cooperative Eyes: PERRL, conjunctivae normal, anicteric sclerae EOM intact bilaterally ENMT: external ear and nose normal, oropharynx normal Neck: normal visual inspection Respiratory: normal respiratory effort, lungs clear to auscultation Cardiovascular: Rate/Rhythm: regular rate Gastrointestinal (Abdomen): normal bowel sounds, soft, nontender, no hepatosplenomegaly Musculoskeletal: Head/Neck/Chest: normocephalic and head atraumatic Neurologic: PERRL, EOMI, accommodation nl, no face palsy, no dysarthria Psychiatric: A+Ox3, euthymic affect Results & Data Results & Data ([facility]) Vital Signs (Past 12 Hours) Vital Signs Temp Pulse Pulse Pulse Resp BP BP 08/31/20 11:06 36.8 C 67 17 112/58 L 08/31/20 07:32 36.5 C 71 18 106/55 L 08/31/20 07:20 72 08/31/20 07:13 75 16 08/31/20 04:06 36.6 C 68 18 122/63 Pulse Ox 08/31/20 11:06 96 08/31/20 07:32 94 08/31/20 07:20 08/31/20 07:13 96 08/31/20 04:06 93 (1) COPD (chronic obstructive pulmonary disease) COPD type: unspecified COPD Qualified Code(s): J44.9 - Chronic obstructive pulmonary disease, unspecified
[2020-08-31] MEDS ORDERED: FUROSEMIDE 40 MG in SYRINGE 0 ML IV ONE (16:15)
[2020-08-31] MEDS: HYDROcodone/ACETAMINOPHEN 10/325 TAB PO PRN ×2 (16:48→21:54)
[2020-08-31] MEDS: RIVAROXABAN 15 MG TAB PO SCH (16:50)
[2020-08-31] MEDS ORDERED: OXYCONTIN PO SCH (22:30)
[2020-09-01] MEDS: LEVOTHYROXINE SODIUM 150 MCG TABLET PO SCH (05:39)
[2020-09-01] MEDS: ACETAMINOPHEN 325 MG TAB PO PRN ×2 (05:39→16:42)
[2020-09-01 06:28] LABS: Albumin Level 2.8 gm/dl (3.4-5.0); BUN Creatinine Ratio 15.9 (10-20); Calcium 8.4 mg/dl (8.5-10.1); Creatinine Clr Calc Pharmacy 58.5 ml/min; Est GFR (Non-African American) 45.7; Potassium 3.4 mmol/L (3.5-5.1)
[2020-09-01 06:31] LABS: Albumin Globulin Ratio 0.8 (0.9-2); Bilirubin,Total 0.3 mg/dl (0.2-1); Globulin 3.7 gm/dl (2.5-4.0); Total Protein 6.5 gm/dl (6.4-8.2)
[2020-09-01] MEDS ORDERED: POTASSIUM CHLORIDE CRTAB 20 MEQ TABCR PO STA (07:12)
[2020-09-01] MEDS ORDERED: OXYCODONE PO SCH (09:00)
[2020-09-01] MEDS: DOCUSATE SODIUM 100 MG CAP PO SCH (09:01)
[2020-09-01] MEDS: carvediloL 6.25 MG TAB PO SCH ×2 (09:01→19:43)
[2020-09-01] MEDS: MULTIVITAMIN TAB PO SCH (09:01)
[2020-09-01] MEDS: DOFETILIDE 125 MCG CAPSULE PO SCH ×2 (09:01→19:44)
[2020-09-01] MEDS: SENNA 8.6 MG TAB PO SCH (09:01)
[2020-09-01] MEDS: OXYCODONE 30 MG PO SCH ×2 (09:01→21:00)
[2020-09-01] MEDS: DOXYCYCLINE HYCLATE 100 MG CAP PO SCH ×2 (09:01→19:44)
[2020-09-01] MEDS: ZINC SULFATE 220 MG CAPSULE PO SCH (09:01)
[2020-09-01] MEDS: predniSONE 20 MG TAB PO SCH (09:01)
[2020-09-01] MEDS: PANTOprazole 40 MG TAB PO SCH (09:01)
[2020-09-01] MEDS: CYANOCOBALAMIN 500 MCG TABLET (VITAMIN B-12) PO SCH (09:02)
[2020-09-01] MEDS: CHOLECALCIFEROL 1,000 UNITS 25 MCG TAB PO SCH (09:02)
[2020-09-01] MEDS: INSULIN GLARGINE SOLOSTAR 100 UNITS/ML 3 ML PEN SC SCH ×2 (09:02→21:04)
[2020-09-01] MEDS: INSULIN ASPART 100 UNITS/ML 3 ML PEN SC SCH ×4 (09:04→21:04)
[2020-09-01] MEDS: oxyCODONE HCL 10 MG TABCR (OxyCONTIN) PO SCH (10:01)
--- NOTE | 2020-09-01 11:07 | Hospitalist Progress Note ---
Date of Service September 01, 2020 Assessment & Plan (1) Acute on chronic respiratory failure with hypoxemia: -She is on 2LPM continuously at home -initial ED oxygen use around 4 liters/min -currently around 3 liters/min (2) COPD (chronic obstructive pulmonary disease): -as per previous hospitalist Dr. Meek: "she appeared stable and still doesn't have audible wheezing, however, she is still short of breath now with sputum changes. There is a possible exacerbation that is contributing to her dyspnea, so will add prednisone and scheduled bronchodilator therapy and will switch abx to doxycycline. Cont to wean oxygen to goal 88-92%. Baseline chronic oxygen needs are 2LPM continuously." -08/31/2020; Patient breathing on nasal cannula oxygen around 3 liters/min. Patient denies acute distress. No chest pain. no abdomen pain. she denies other symptoms. on lung exam, patient has no audible wheezing but she has requested intermittent nebulizer treatment -09/01/2020: Patient on 2 liters/min nasal cannula (3) ZEYAD (obstructive sleep apnea): -Pt with an elevated bicarb this morning, and has risk factors for ZEYAD. Outpatient discussion with PCP regarding alternative therapies for treatment of ZEYAD. Pt reports claustrophobia with any type of mask. -any Uvulopalatopharyngoplasty will require outpatient surgical assessments as outpatient (4) Acute diastolic heart failure: -as per previous hospitalist Dr. Meek on 08/30/2020 "The patient is morbidly obese, and volume assessments are difficult in obese patients. She is also physically deconditioned at baseline. When she came in she was treated with diuretics for acute diastolic heart failure, and stated she felt as though she was full of fluid. However, since yesterday afternoon she has had a bump in her creatinine causing a hold on any further diuretics. Her urine is concentrated, her lungs are clear, she has no evidence of JVD or peripheral edema on exam, and BMP is 200. Regarding her standing weight this was not assessed until today and she is 132kg. Although this is higher than her "dry weight," it isn't too far from where she was last month. She is euvolemic to hypervolemic, and would continue to diurese her as her kidneys will allow." -08/31/2020: IV lasix 40 mg x 1 given -09/01/2020: stop empiric prednisone to prevent any contribution of steroids to fluid retention. IV Lasix as 40 mg q12 hours. fluid restriction of the diet to 1800 ml (5) Acute kidney failure: Acute kidney insufficiency secondary to diuretics -her old records show creatinine around the 1 to 1.17 ranges -creatinine better as 1.18 on 09/01/2020 -will be acceptable to allow increase of creatinine to 1.5 if needed while on IV diuresis (6) Cellulitis of abdominal wall: -initially on clindamycin -currently on oral doxycycline, continue for now (7) Morbid obesity: with BMI of 48.4 (8) DJD (degenerative joint disease) of knee: -likely from morbid obesity -on chronic oxycodone use when at home (9) Chronic pain syndrome: -chronic oxycodone use (10) DM type 2 (diabetes mellitus, type 2): -Oral agents held and she is on basal bolus insulin therapy while admitted -on Lantus and sliding scale insulin (11) Paroxysmal atrial fibrillation: -Rhythm controlled with Dofetilide, continues on Xarelto for AC. (12) Chronic anticoagulation: -Xarelto (13) DVT prophylaxis: -on Xarelto Full Code Disposition: patient is unsatisfied with recent [facility] physical rehabilitation. patient and her son are planning on her to be discharged to home when hospital stay is completed Admission and Anticipated Discharge Date Admission Date: August 28, 2020 Subjective Discussed with patient in presence of manager neonatal about weight management, diuretic management, fluid restriction no acute distress. breathing on nasal cannula 2 liters/min. no wheezing. no crackles. overall fluid weights as still not optimal. patient denies acute pain. patient denies other symptoms on review of systems Review of Systems Review of Systems: All systems reviewed & are unremarkable except as noted in Subjective Physical Exam Constitutional: + obese and cooperative Eyes: PERRL, conjunctivae normal, anicteric sclerae EOM intact bilaterally ENMT: external ear and nose normal, oropharynx normal Neck: normal visual inspection Respiratory: normal respiratory effort, lungs clear to auscultation Cardiovascular: Rate/Rhythm: regular rate Gastrointestinal (Abdomen): normal bowel sounds, soft, nontender, no hepatosplenomegaly Musculoskeletal: Head/Neck/Chest: normocephalic and head atraumatic Skin: + erythema (around belly area/pannus) Neurologic: PERRL, EOMI, accommodation nl, no face palsy, no dysarthria Psychiatric: A+Ox3, euthymic affect Results & Data Results & Data ([facility]) Vital Signs (Past 12 Hours) Vital Signs Temp Pulse Pulse Pulse Resp BP Pulse Ox 09/01/20 09:40 70 09/01/20 07:30 36.8 C 73 19 101/53 L 97 09/01/20 02:35 36.8 C 74 19 122/57 L 97 08/31/20 23:44 36.8 C 80 19 139/61 95 (1) COPD (chronic obstructive pulmonary disease) COPD type: unspecified COPD Qualified Code(s): J44.9 - Chronic obstructive pulmonary disease, unspecified
[2020-09-01] MEDS: CARBOHYDRATES FOR HYPOGLYCEMIA PO PRN (11:15)
[2020-09-01] MEDS: FUROSEMIDE 40 MG in SYRINGE 0 ML IV SCH ×2 (11:52→17:38)
[2020-09-01] MEDS: RIVAROXABAN 15 MG TAB PO SCH (16:38)
[2020-09-01] MEDS: ALBUTEROL 0.5% NEB SOLN 2.5 MG/0.5 ML VIAL NEB PRN (16:59)
[2020-09-02] MEDS: FUROSEMIDE 40 MG in SYRINGE 0 ML IV SCH ×2 (05:14→17:28)
[2020-09-02] MEDS: LEVOTHYROXINE SODIUM 150 MCG TABLET PO SCH (05:14)
[2020-09-02 06:29] LABS: Albumin Level 2.9 gm/dl (3.4-5.0); BUN Creatinine Ratio 18.3 (10-20); Calcium 8.4 mg/dl (8.5-10.1); Creatinine Clr Calc Pharmacy 55.9 ml/min; Est GFR (African American) 50.4; Est GFR (Non-African American) 43.5; Magnesium 1.9 mg/dl (1.8-2.4); Potassium 3.4 mmol/L (3.5-5.1)
[2020-09-02 06:32] LABS: Albumin Globulin Ratio 0.8 (0.9-2); Bilirubin,Total 0.4 mg/dl (0.2-1); Globulin 3.6 gm/dl (2.5-4.0); Total Protein 6.5 gm/dl (6.4-8.2)
[2020-09-02] MEDS ORDERED: POTASSIUM CHLORIDE CRTAB 20 MEQ TABCR PO ONE (07:30)
--- NOTE | 2020-09-02 08:21 | Hospitalist Progress Note ---
Date of Service September 02, 2020 Assessment & Plan (1) Acute on chronic respiratory failure with hypoxemia: -She is on 2LPM continuously at home -initial ED oxygen use around 4 liters/min -currently around 3 liters/min (2) COPD (chronic obstructive pulmonary disease): -as per previous hospitalist Dr. Meek: "she appeared stable and still doesn't have audible wheezing, however, she is still short of breath now with sputum changes. There is a possible exacerbation that is contributing to her dyspnea, so will add prednisone and scheduled bronchodilator therapy and will switch abx to doxycycline. Cont to wean oxygen to goal 88-92%. Baseline chronic oxygen needs are 2LPM continuously." -08/31/2020; Patient breathing on nasal cannula oxygen around 3 liters/min. Patient denies acute distress. No chest pain. no abdomen pain. she denies other symptoms. on lung exam, patient has no audible wheezing but she has requested intermittent nebulizer treatment -09/01/2020: Patient on 2 liters/min nasal cannula, appears to be base line oxygen use (3) ZEYAD (obstructive sleep apnea): -Pt with an elevated bicarb this morning, and has risk factors for ZEYAD. Outpatient discussion with PCP regarding alternative therapies for treatment of ZEYAD. Pt reports claustrophobia with any type of mask. -any Uvulopalatopharyngoplasty will require outpatient surgical assessments as outpatient (4) Acute diastolic heart failure: -as per previous hospitalist Dr. Meek on 08/30/2020 "The patient is morbidly obese, and volume assessments are difficult in obese patients. She is also physically deconditioned at baseline. When she came in she was treated with diuretics for acute diastolic heart failure, and stated she felt as though she was full of fluid. However, since yesterday afternoon she has had a bump in her creatinine causing a hold on any further diuretics. Her urine is concentrated, her lungs are clear, she has no evidence of JVD or peripheral edema on exam, and BMP is 200. Regarding her standing weight this was not assessed until today and she is 132kg. Although this is higher than her "dry weight," it isn't too far from where she was last month. She is euvolemic to hypervolemic, and would continue to diurese her as her kidneys will allow." -08/31/2020: IV lasix 40 mg x 1 given -09/01/2020: stop empiric prednisone to prevent any contribution of steroids to fluid retention. -09/02/2020: creatinine remains reasonably stable as 1.23, continue same IV Lasix as 40 mg q12 hours. fluid restriction of the diet to 1800 ml (5) Acute kidney failure: Acute kidney insufficiency secondary to diuretics -her old records show creatinine around the 1 to 1.17 ranges -creatinine better as 1.18 on 09/01/2020 -will be acceptable to allow increase of creatinine to 1.5 if needed while on IV diuresis (6) Cellulitis of abdominal wall: -initially on clindamycin -currently on oral doxycycline, continue for now -09/02/2020: exam of belly with resolving erythema (7) Morbid obesity: with BMI of 48.4 (8) DJD (degenerative joint disease) of knee: -likely from morbid obesity -on chronic oxycodone use when at home (9) Chronic pain syndrome: -chronic oxycodone use (10) DM type 2 (diabetes mellitus, type 2): -Oral agents held and she is on basal bolus insulin therapy while admitted -on Lantus and sliding scale insulin (11) Paroxysmal atrial fibrillation: -Rhythm controlled with Dofetilide, continues on Xarelto for AC. (12) Chronic anticoagulation: -Xarelto (13) DVT prophylaxis: -on Xarelto Full Code Disposition: patient is unsatisfied with recent [facility] physical rehabilitation. patient and her son are planning on her to be discharged to home when hospital stay is completed Admission and Anticipated Discharge Date Admission Date: August 28, 2020 Subjective exam of belly with resolving erythema. creatinine remains reasonably stable as 1.23, continue same IV Lasix as 40 mg q12 hours. fluid restriction of the diet to 1800 ml. nasal cannula 2 liters/min. no acute shortness of breath. weights have not changed significantly. patient denies any other new symptoms on review of systems. not in acute pain. not in acute distress. she reports she has been making the urine with the IV Lasix. Review of Systems Review of Systems: All systems reviewed & are unremarkable except as noted in Subjective Physical Exam Constitutional: + obese and cooperative Eyes: PERRL, conjunctivae normal, anicteric sclerae EOM intact bilaterally ENMT: external ear and nose normal, oropharynx normal Neck: normal visual inspection Respiratory: normal respiratory effort, lungs clear to auscultation Cardiovascular: Rate/Rhythm: regular rate Gastrointestinal (Abdomen): normal bowel sounds, soft, nontender, no hepatosplenomegaly Musculoskeletal: Head/Neck/Chest: normocephalic and head atraumatic Neurologic: PERRL, EOMI, accommodation nl, no face palsy, no dysarthria Psychiatric: A+Ox3, euthymic affect Results & Data Results & Data ([facility]) Vital Signs (Past 12 Hours) Vital Signs Temp Pulse Resp BP Pulse Ox 09/02/20 07:37 36.4 C L 73 16 124/73 98 09/01/20 23:09 36.7 C 68 18 112/65 98 (1) COPD (chronic obstructive pulmonary disease) COPD type: unspecified COPD Qualified Code(s): J44.9 - Chronic obstructive pulmonary disease, unspecified
[2020-09-02] MEDS: DOFETILIDE 125 MCG CAPSULE PO SCH ×2 (08:24→20:07)
[2020-09-02] MEDS: SENNA 8.6 MG TAB PO SCH (08:24)
[2020-09-02] MEDS: carvediloL 6.25 MG TAB PO SCH ×2 (08:24→20:07)
[2020-09-02] MEDS: DOXYCYCLINE HYCLATE 100 MG CAP PO SCH ×2 (08:24→20:07)
[2020-09-02] MEDS: PANTOprazole 40 MG TAB PO SCH (08:24)
[2020-09-02] MEDS: DOCUSATE SODIUM 100 MG CAP PO SCH (08:24)
[2020-09-02] MEDS: ZINC SULFATE 220 MG CAPSULE PO SCH (08:25)
[2020-09-02] MEDS: CHOLECALCIFEROL 1,000 UNITS 25 MCG TAB PO SCH (08:25)
[2020-09-02] MEDS: CYANOCOBALAMIN 500 MCG TABLET (VITAMIN B-12) PO SCH (08:25)
[2020-09-02] MEDS: MULTIVITAMIN TAB PO SCH (08:25)
[2020-09-02] MEDS: OXYCODONE 30 MG PO SCH ×2 (08:25→20:21)
[2020-09-02] MEDS: INSULIN GLARGINE SOLOSTAR 100 UNITS/ML 3 ML PEN SC SCH (08:27)
[2020-09-02] MEDS: INSULIN ASPART 100 UNITS/ML 3 ML PEN SC SCH ×4 (08:37→22:04)
[2020-09-02] MEDS: PREMARIN VAG CRM 14 APPLN/30 GM TUBE PV SCH (09:56)
[2020-09-02] MEDS: HYDROCORTISONE HC 2.5% CRM 30GM TUBE EXT PRN ×2 (09:56→19:47)
[2020-09-02] MEDS: ALBUTEROL 0.5% NEB SOLN 2.5 MG/0.5 ML VIAL NEB PRN ×2 (10:39→20:44)
[2020-09-02] MEDS: MAGNESIUM OXIDE 400 MG TAB PO SCH ×2 (12:35→17:28)
[2020-09-02] MEDS: RIVAROXABAN 15 MG TAB PO SCH (17:28)
[2020-09-02] MEDS: OXYCODONE PO SCH (20:26)
[2020-09-03] MEDS: ACETAMINOPHEN 325 MG TAB PO PRN ×3 (01:05→14:42)
[2020-09-03] MEDS: FUROSEMIDE 40 MG in SYRINGE 0 ML IV SCH (05:52)
[2020-09-03] MEDS: LEVOTHYROXINE SODIUM 150 MCG TABLET PO SCH (05:53)
[2020-09-03 06:23] LABS: BUN Creatinine Ratio 17.5 (10-20); Creatinine Clr Calc Pharmacy 55.5 ml/min; Est GFR (African American) 50.4; Est GFR (Non-African American) 43.5; Magnesium 1.8 mg/dl (1.8-2.4); Potassium 3.3 mmol/L (3.5-5.1)
[2020-09-03] MEDS ORDERED: POTASSIUM CHLORIDE CRTAB 20 MEQ TABCR PO STA (07:18)
--- NOTE | 2020-09-03 08:15 | Hospitalist Progress Note ---
Date of Service September 03, 2020 Assessment & Plan (1) Acute on chronic respiratory failure with hypoxemia: -She is on 2LPM continuously at home -initial ED oxygen use around 4 liters/min -currently around 3 liters/min (2) COPD (chronic obstructive pulmonary disease): -as per previous hospitalist Dr. Meek: "she appeared stable and still doesn't have audible wheezing, however, she is still short of breath now with sputum changes. There is a possible exacerbation that is contributing to her dyspnea, so will add prednisone and scheduled bronchodilator therapy and will switch abx to doxycycline. Cont to wean oxygen to goal 88-92%. Baseline chronic oxygen needs are 2LPM continuously." -08/31/2020; Patient breathing on nasal cannula oxygen around 3 liters/min. Patient denies acute distress. No chest pain. no abdomen pain. she denies other symptoms. on lung exam, patient has no audible wheezing but she has requested intermittent nebulizer treatment -09/01/2020: Patient on 2 liters/min nasal cannula, appears to be base line oxygen use -09/03/2020: discussed with patient her use of albuterol. apparently she has been using her own inhaler while in the hospital even though there are hospital orders for prn nebulizer treatments if needed. in addition, patient's exams on this hospital stay has been without much wheezing and hospitalist expressed to patient about albuterol overuse. She reports she is following the previous directions of her [facility] doctor and also has the albuterol a ready in case any strong odors such as scented perfumes trigger shortness of breath (3) ZEYAD (obstructive sleep apnea): -Pt with an elevated bicarb this morning, and has risk factors for ZEYAD. Outpatient discussion with PCP regarding alternative therapies for treatment of ZEYAD. Pt reports claustrophobia with any type of mask. -any Uvulopalatopharyngoplasty will require outpatient surgical assessments as outpatient. Patient's usual pulmonary group is [facility] (4) Acute diastolic heart failure: -as per previous hospitalist Dr. Meek on 08/30/2020 "The patient is morbidly obese, and volume assessments are difficult in obese patients. She is also physically deconditioned at baseline. When she came in she was treated with diuretics for acute diastolic heart failure, and stated she felt as though she was full of fluid. However, since yesterday afternoon she has had a bump in her creatinine causing a hold on any further diuretics. Her urine is concentrated, her lungs are clear, she has no evidence of JVD or peripheral edema on exam, and BMP is 200. Regarding her standing weight this was not assessed until today and she is 132kg. Although this is higher than her "dry weight," it isn't too far from where she was last month. She is euvolemic to hypervolemic, and would continue to diurese her as her kidneys will allow." -08/31/2020: IV lasix 40 mg x 1 given -09/01/2020: stop empiric prednisone to prevent any contribution of steroids to fluid retention. -09/02/2020: creatinine remains reasonably stable as 1.23, continue same IV Lasix as 40 mg q12 hours. fluid restriction of the diet to 1800 ml -09/03/2020: patient continues to be having stable renal function. Continue the IV Lasix as 40 mg q12 hours while on fluid restriction. she also has been getting potassium and magnesium supplements.continue daily weights patient requests inpatient [facility] cardiology service to see her while she is in hospital (5) Acute kidney failure: Acute kidney insufficiency secondary to diuretics -her old records show creatinine around the 1 to 1.17 ranges -creatinine better as 1.18 on 09/01/2020; around 1.23 in recent labs (6) Cellulitis of abdominal wall: -initially on clindamycin -currently on oral doxycycline, continue for now -09/02/2020: exam of belly with resolving erythema (7) Morbid obesity: with BMI of 48.4 (8) DJD (degenerative joint disease) of knee: -likely from morbid obesity -on chronic oxycodone when at home (9) Chronic pain syndrome: -chronic oxycodone use (10) DM type 2 (diabetes mellitus, type 2): -Oral agents held and she is on basal bolus insulin therapy while admitted -on Lantus and sliding scale insulin (11) Paroxysmal atrial fibrillation: -Rhythm controlled with Dofetilide -has been on Xarelto (12) Chronic anticoagulation: -has been on Xarelto (13) DVT prophylaxis: -Xarelto dose held for 09/03/2020 because of concerns of patient for hemorrhoid bleed, will check CBC on 09/03/2020 noon time -start SCDs in place of Xarelto for DVT prophylaxis Full Code Disposition: patient is unsatisfied with recent [facility] physical rehabilitation. patient and her son are planning on her to be discharged to home when hospital stay is completed Admission and Anticipated Discharge Date Admission Date: August 28, 2020 Subjective discussed with patient her use of albuterol. apparently she has been using her own inhaler while in the hospital even though there are hospital orders for prn nebulizer treatments if needed. in addition, patient's exams on this hospital stay has been without much wheezing and hospitalist expressed to patient about albuterol overuse. She reports she is following the previous directions of her [facility] pulmonary doctor and also has the albuterol a ready in case any strong odors such as scented perfumes trigger shortness of breath patient continues to be having stable renal function. Continue the IV Lasix as 40 mg q12 hours while on fluid restriction. she also has been getting potassium and magnesium supplements.continue daily weights patient requests inpatient [facility] cardiology service to see her while she is in hospital Xarelto dose held for 09/03/2020 because of concerns of patient for hemorrhoid bleed, will check CBC on 09/03/2020 noon time otherwise, patient denies other symptoms on review of systems Review of Systems Review of Systems: All systems reviewed & are unremarkable except as noted in Subjective Physical Exam Constitutional: + obese and cooperative Eyes: PERRL, conjunctivae normal, anicteric sclerae EOM intact bilaterally ENMT: external ear and nose normal, oropharynx normal Neck: normal visual inspection Respiratory: normal respiratory effort, lungs clear to auscultation Cardiovascular: Rate/Rhythm: regular rate Gastrointestinal (Abdomen): normal bowel sounds, soft, nontender, no hepatosplenomegaly Musculoskeletal: Head/Neck/Chest: normocephalic and head atraumatic Neurologic: PERRL, EOMI, accommodation nl, no face palsy, no dysarthria Psychiatric: A+Ox3, euthymic affect Results & Data Results & Data ([facility]) Vital Signs (Past 12 Hours) Vital Signs Temp Pulse Resp BP BP Pulse Ox 09/03/20 07:23 36.3 C L 82 19 123/64 98 09/03/20 01:23 97 09/02/20 23:20 36.5 C 93 H 18 101/54 L 96 09/02/20 20:47 90 18 98 (1) COPD (chronic obstructive pulmonary disease) COPD type: unspecified COPD Qualified Code(s): J44.9 - Chronic obstructive pulmonary disease, unspecified
[2020-09-03] MEDS: OXYCODONE PO SCH ×2 (08:26→21:34)
[2020-09-03] MEDS: DOFETILIDE 125 MCG CAPSULE PO SCH ×2 (08:27→21:30)
[2020-09-03] MEDS: carvediloL 6.25 MG TAB PO SCH ×2 (08:27→21:27)
[2020-09-03] MEDS: DOXYCYCLINE HYCLATE 100 MG CAP PO SCH ×2 (08:27→21:29)
[2020-09-03] MEDS: DOCUSATE SODIUM 100 MG CAP PO SCH (08:27)
[2020-09-03] MEDS: OXYCODONE 30 MG PO SCH ×2 (08:27→21:31)
[2020-09-03] MEDS: PANTOprazole 40 MG TAB PO SCH (08:27)
[2020-09-03] MEDS: SENNA 8.6 MG TAB PO SCH (08:27)
[2020-09-03] MEDS: INSULIN ASPART 100 UNITS/ML 3 ML PEN SC SCH ×4 (08:33→21:13)
[2020-09-03] MEDS: INSULIN GLARGINE SOLOSTAR 100 UNITS/ML 3 ML PEN SC SCH (08:34)
[2020-09-03] MEDS: ALBUTEROL 0.5% NEB SOLN 2.5 MG/0.5 ML VIAL NEB PRN (10:42)
--- NOTE | 2020-09-03 11:27 | Cardiology Consultation ---
Date of Consultation September 03, 2020 Assessment & Plan (1) Acute on chronic respiratory failure with hypoxemia: (2) Chronic diastolic heart failure: (3) COPD (chronic obstructive pulmonary disease): (4) ZEYAD (obstructive sleep apnea): (5) Morbid obesity: (6) Cellulitis of abdominal wall: (7) Paroxysmal atrial fibrillation: (8) STACY (acute kidney injury): 75-year-old female appears compensated/euvolemic per examination. Oxygen requirements near baseline. Recommend discontinuation of intravenous diuretic therapy. Due to intermittent ineffectiveness of oral furosemide, recommend transition to torsemide 10 mg daily. She may take an additional 10 mg (total 20 mg daily) as needed weight gain/worsening edema. Restart spironolactone 12.5mg on Saturday, Saturday, and Fridays. Follow GFR and electrolytes while hospitalized. Repeat basic metabolic panel 1 weeks post discharge. Estimated creatinine clearance > 50 since admission. Increase Xarelto to 20 mg daily. History of Present Illness Reason for Consultation: Diastolic heart failure Requesting Physician: Dr. Garcia Attending Physician: Charles Garcia MD History of Present Illness Complex 75-year-old female presented to the emergency room 08/28/2020 with shortness of breath. Carries history of severe oxygen dependent COPD/asthma. Echocardiogram performed 08/29/2020 demonstrates normal left ventricular systolic function with normal wall thickness. Grade 2 diastolic dysfunction with out e vidence of pulmonary hypertension. Patient treated with diuretic therapy since admission. Carries a history of symptomatic paroxysmal atrial fibrillation maintained in sinus rhythm with dofetilide. ECG on admission demonstrates sinus rhythm, however, she has not been maintained on telemetry during hospitalization. Weight is down approximately 2 kg since admission. Treated with 40 mg p.o. Lasix daily in the outpatient setting. Receiving IV Lasix, furosemide 40 mg twice daily since admission. Diuretics held 09/02/2020 due to mild bump in creatinine. Creatinine ranging from 1.11- 1.34 during admission. Today, patient feeling well from a cardiovascular perspective. She does not feel fluid overloaded currently, however, reports fluid seems to accumulate in the afternoon. Voices concern regarding her care at [facility]. Denies orthopnea or paroxysmal nocturnal dyspnea. No lower extremity edema currently. Supplemental oxygen requirements at baseline. No cough, fever, chills, or active wheeze. She is lying supine without dyspnea. No chest discomfort, palpitations, lightheadedness, or dizziness. Tolerating diet and medications. Offers no other concerns/complaints at this time. Allergies Allergy/AdvReac Type Severity Reaction Status Date / Time arformoterol Allergy Severe TACHYCARDIA Verified 08/28/20 15:14 aspirin Allergy Severe HIVES, SOB Verified 08/28/20 15:14 ciprofloxacin Allergy Severe Unknown Verified 08/28/20 15:14 clarithromycin [From Biaxin] Allergy Severe Unknown Verified 08/28/20 15:14 Iodinated Contrast Media Allergy Severe "CAUSED Verified 08/28/20 15:14 ASTHMA ATTACK" metaproterenol [From Alupent] Allergy Severe Unknown Verified 08/28/20 15:14 metformin [From Riomet] Allergy Severe Unknown Verified 08/28/20 15:14 NSAIDS (Non-Steroidal Allergy Severe Hives Verified 08/28/20 15:14 Anti-Inflamma Penicillins Allergy Severe SOB, HIVES Verified 08/28/20 15:14 pioglitazone [From Actos] Allergy Severe Unknown Verified 08/28/20 15:14 sotalol Allergy Severe increased Verified 08/28/20 15:14 breathing problems Sulfa (Sulfonamide Allergy Severe Anaphylaxis Verified 08/28/20 15:14 Antibiotics) tiotropium Allergy Severe Unknown Verified 08/28/20 15:14 [From Spiriva with HandiHaler] aspartame Allergy Intermediate HIVES, Verified 08/28/20 15:14 ITCHY chlorhexidine Allergy Intermediate BLISTERY Verified 08/28/20 15:14 RASH ipratropium Allergy Mild SHORTNESS Verified 08/28/20 15:14 OF BREATH povidone Allergy Mild BLISTER Verified 08/28/20 15:14 WITH TAPE fish derived Allergy Unknown Unknown Verified 08/28/20 15:14 Fish Containing Products Allergy Verified 08/28/20 15:14 shellfish derived Allergy Verified 08/28/20 15:14 stevioside [From Stevia] Allergy Verified 08/28/20 15:14 meperidine AdvReac Intermediate Gastrointestinal Verified 08/28/20 15:14 Upset morphine AdvReac Intermediate Gastrointestinal Verified 08/28/20 15:14 Upset adhesive AdvReac Mild BLISTERS Verified 08/28/20 15:14 WITH TAPE banana AdvReac Verified 08/28/20 15:14 sucralose AdvReac Verified 08/28/20 15:14 [From Splenda (sucralose)] Home Medications Home Medications Medication Instructions Recorded Confirmed Type Premarin 1 applic TOPICAL [id number] 07/24/18 08/28/20 History meclizine 25 mg PO Q8H PRN 07/24/18 08/28/20 History levothyroxine 150 mcg capsule 150 mcg PO QAM 06/17/19 08/28/20 History metformin [Glucophage XR] 1,000 mg PO PM 08/04/19 08/28/20 History potassium chloride [Klor-Con M10] 10 meq PO QAM 08/04/19 08/28/20 History hydrocortisone [Proctosol HC] 1 applic EXT BID PRN #30 gm 08/17/19 08/28/20 Rx baclofen 10 mg tablet 5 mg PO BID PRN tab 08/28/19 08/28/20 History dofetilide 125 mcg capsule 250 mcg PO Q12H cap 08/28/19 08/28/20 History sennosides 8.6 mg-docusate sodium 1 tabcap PO BID PRN 08/28/19 08/28/20 History 50 mg tablet carvedilol 3.125 mg tablet 6.25 mg PO BID 09/16/19 08/28/20 History albuterol sulfate 90 mcg/actuation 2 puff INHALATION Q6H PRN #3 07/01/20 08/28/20 Rx aerosol inhaler inhaler albuterol sulfate 2.5 mg INHALATION Q4H PRN #180 ml 07/14/20 08/28/20 Rx furosemide 20 mg tablet 40 mg PO QAM 07/14/20 08/28/20 History Zinc Tablets 1 tab PO QAM 07/22/20 08/28/20 History cholecalciferol (vitamin D3) 25 mcg PO QAM 07/22/20 08/28/20 History [Vitamin D3] docusate sodium [Colace] 100 mg PO QAM 07/22/20 08/28/20 History multivitamin 1 tab PO QAM 07/22/20 08/28/20 History oxycodone [OxyContin] 30 mg PO Q12H #3 tab 07/26/20 08/28/20 Rx oxycodone 10 mg PO Q4H PRN #10 tab 07/27/20 08/28/20 Rx acetaminophen [Tylenol] 650 mg PO Q6H PRN 08/28/20 08/28/20 History cyanocobalamin (vitamin B-12) 500 mcg PO QAM 08/28/20 08/28/20 History [Vitamin B-12] ondansetron HCl 4 mg PO Q6H PRN 08/28/20 08/28/20 History pantoprazole [Protonix] 40 mg PO QAM 08/28/20 08/28/20 History psyllium husk [Metamucil] 1 tbsp PO QAM 08/28/20 08/28/20 History rivaroxaban 15 mg PO PM 08/28/20 08/28/20 History Patient History Medical History (Updated 09/03/20 @ 12:10 by Selvin Turner DO) Asthma Chronic anticoagulation Chronic diastolic CHF (congestive heart failure) Chronic respiratory failure with hypoxia CKD (chronic kidney disease), stage III COPD (chronic obstructive pulmonary disease) Cor pulmonale, chronic DM type 2 (diabetes mellitus, type 2) Dyslipidemia History of TIA (transient ischemic attack) Hypothyroidism ZEYAD (obstructive sleep apnea) Paroxysmal atrial fibrillation Surgical History H/O arthroscopic knee surgery History of appendectomy History of cataract surgery History of cholecystectomy History of hysterectomy Family History Father Asthma Lung cancer Mother Diabetes Heart disease Brother Colon cancer Daughter Diabetes Brother Stroke Social History Smoking Status: Never smoker Second Hand Exposure: No; Do You Dip or Chew Tobacco: No; Tobacco Cessation Education Requested by Patient: No Hx Alcohol Use: No Hx Substance Use: No Preferred Language: Guyanese Communication Ability: Effective Metallurgical Tester Required: No Beliefs That Will Affect Care: None marital status: Current Living Situation: Rehab Current Living Situation Comment: lives with son Feels Safe at Home: Yes Safety Concerns: Feels Safe At This Time Assistive Devices: Oxygen - Continuous and Walker Review of Systems Review of Systems: All systems reviewed & are unremarkable except as noted in HPI & below Physical Exam Constitutional: + obese; no acute distress Respiratory: normal respiratory effort, lungs clear to auscultation Auscultation: no crackles, no rales, no rhonchi and no wheezes Cardiovascular: Rate/Rhythm: regular rate and regular rhythm Heart Sounds: normal S1 and normal S2; no murmur Vessels: no JVD and no carotid bruit Extremities: no edema Gastrointestinal (Abdomen): Inspection/Auscultation: abdomen normal to inspection and normal bowel sounds; abdomen not distended Percussion/Palpa tion: abdomen soft; abdomen nontender, no guarding and abdomen not rigid Skin: no rashes, warm and dry Neurologic: PERRL, EOMI, accommodation nl, no face palsy, no dysarthria Psychiatric: A+Ox3, euthymic affect Results & Data ([facility]) Vital Signs (Past 12 Hours) Vital Signs Temp Pulse Resp BP Pulse Ox 09/03/20 10:44 68 18 97 09/03/20 07:23 36.3 C L 82 19 123/64 98 09/03/20 01:23 97 (1) COPD (chronic obstructive pulmonary disease) COPD type: unspecified COPD Qualified Code(s): J44.9 - Chronic obstructive pulmonary disease, unspecified
[2020-09-03 12:08] LABS: Basophils # (auto) 0.02 K/uL (0-0.2); Basophils % (auto) 0.3 %; Eosinophils # (auto) 0.28 K/uL (0-0.5); Eosinophils % (auto) 3.7 %; Hematocrit (blood only) 31.1 % (37-47); Hemoglobin 9.5 g/dL (12.0-16.0); Immature Granulocytes # (auto) 0.01 K/uL (0.00-0.02); Immature Granulocytes % (auto) 0.1 %; Lymphocytes # (auto) 1.81 K/uL (1.2-3.4); Mean Corpuscular Hgb Conc 30.5 g/dL (32-36); Mean Corpuscular Volume 88.4 fL (80-100); Mean Platelet Volume 9.6 fL (7.4-10.4); Monocytes # (auto) 0.93 K/uL (0.11-0.59); Monocytes % (auto) 12.3 %; Neutrophils # (auto) 4.49 K/uL (1.4-6.5); Neutrophils % (auto) 59.6 %; Platelet Count 200 K/uL (130-400); RDW Coefficient of Variation 15.2 % (11.5-14.5); RDW Standard Deviation 49.2 fL (36.4-46.3); Red Blood Count 3.52 M/uL (4.2-5.4); White Blood Count 7.54 K/uL (4.8-10.8)
[2020-09-03] MEDS: ZINC SULFATE 220 MG CAPSULE PO SCH (12:44)
[2020-09-03] MEDS: CHOLECALCIFEROL 1,000 UNITS 25 MCG TAB PO SCH (12:44)
[2020-09-03] MEDS: MAGNESIUM OXIDE 400 MG TAB PO SCH ×2 (12:44→17:39)
[2020-09-03] MEDS: MULTIVITAMIN TAB PO SCH (12:45)
[2020-09-03] MEDS: CYANOCOBALAMIN 500 MCG TABLET (VITAMIN B-12) PO SCH (12:45)
[2020-09-03] MEDS: ONDANSETRON INJ 2 MG/ML 2 ML VIAL IV PRN (13:28)
[2020-09-03] MEDS ORDERED: RIVAROXABAN 20 MG TAB PO SCH (16:30)
[2020-09-03] MEDS: POTASSIUM CHLORIDE CRTAB 20 MEQ TABCR PO SCH (21:28)
[2020-09-04] MEDS: ALBUTEROL 0.5% NEB SOLN 2.5 MG/0.5 ML VIAL NEB PRN ×2 (01:58→10:04)
[2020-09-04] MEDS: ACETAMINOPHEN 325 MG TAB PO PRN ×2 (05:05→22:08)
[2020-09-04] MEDS: LEVOTHYROXINE SODIUM 150 MCG TABLET PO SCH (05:06)
[2020-09-04 07:11] LABS: Basophils # (auto) 0.02 K/uL (0-0.2); Basophils % (auto) 0.3 %; Eosinophils # (auto) 0.43 K/uL (0-0.5); Eosinophils % (auto) 6.1 %; Hematocrit (blood only) 29.7 % (37-47); Immature Granulocytes # (auto) 0.01 K/uL (0.00-0.02); Immature Granulocytes % (auto) 0.1 %; Lymphocytes % (auto) 28.2 %; Mean Corpuscular Hemoglobin 27.1 pg (25-34); Mean Corpuscular Hgb Conc 30.3 g/dL (32-36); Mean Corpuscular Volume 89.5 fL (80-100); Mean Platelet Volume 9.8 fL (7.4-10.4); Monocytes # (auto) 0.86 K/uL (0.11-0.59); Monocytes % (auto) 12.1 %; Neutrophils # (auto) 3.76 K/uL (1.4-6.5); Neutrophils % (auto) 53.2 %; Platelet Count 179 K/uL (130-400); RDW Coefficient of Variation 15.2 % (11.5-14.5); RDW Standard Deviation 49.7 fL (36.4-46.3); Red Blood Count 3.32 M/uL (4.2-5.4); White Blood Count 7.08 K/uL (4.8-10.8)
[2020-09-04 07:48] LABS: BUN Creatinine Ratio 16.3 (10-20); Calcium 8.1 mg/dl (8.5-10.1); Creatinine Clr Calc Pharmacy 63.7 ml/min; Est GFR (African American) 59.6; Est GFR (Non-African American) 51.5; Phosphorus 3.9 mg/dl (2.5-4.9); Potassium 3.5 mmol/L (3.5-5.1)
[2020-09-04] MEDS: TORSEMIDE 10 MG TAB PO SCH (07:59)
[2020-09-04] MEDS: carvediloL 6.25 MG TAB PO SCH ×2 (07:59→20:29)
[2020-09-04] MEDS: DOFETILIDE 125 MCG CAPSULE PO SCH ×2 (07:59→20:29)
[2020-09-04] MEDS: OXYCODONE PO SCH ×3 (08:00→20:28)
[2020-09-04] MEDS: OXYCODONE 30 MG PO SCH ×3 (08:01→23:51)
--- NOTE | 2020-09-04 08:21 | Hospitalist Progress Note ---
Date of Service September 04, 2020 Assessment & Plan (1) Acute on chronic respiratory failure with hypoxemia: -She is on 2LPM continuously at home -initial ED oxygen use around 4 liters/min -currently around 3 liters/min (2) COPD (chronic obstructive pulmonary disease): -as per previous hospitalist Dr. Meek: "she appeared stable and still doesn't have audible wheezing, however, she is still short of breath now with sputum changes. There is a possible exacerbation that is contributing to her dyspnea, so will add prednisone and scheduled bronchodilator therapy and will switch abx to doxycycline. Cont to wean oxygen to goal 88-92%. Baseline chronic oxygen needs are 2LPM continuously." -08/31/2020; Patient breathing on nasal cannula oxygen around 3 liters/min. Patient denies acute distress. No chest pain. no abdomen pain. she denies other symptoms. on lung exam, patient has no audible wheezing but she has requested intermittent nebulizer treatment -09/01/2020: Patient on 2 liters/min nasal cannula, appears to be base line oxygen use -09/03/2020: discussed with patient her use of albuterol. apparently she has been using her own inhaler while in the hospital even though there are hospital orders for prn nebulizer treatments if needed. in addition, patient's exams on this hospital stay has been without much wheezing and hospitalist expressed to patient about albuterol overuse. She reports she is following the previous directions of her [facility] doctor and also has the albuterol a ready in case any strong odors such as scented perfumes trigger shortness of breath (3) ZEYAD (obstructive sleep apnea): -Pt with an elevated bicarb this morning, and has risk factors for ZEYAD. Outpatient discussion with PCP regarding alternative therapies for treatment of ZEYAD. Pt reports claustrophobia with any type of mask. -any Uvulopalatopharyngoplasty will require outpatient surgical assessments as outpatient. Patient's usual pulmonary group is [facility] (4) Acute diastolic heart failure: -as per previous hospitalist Dr. Meek on 08/30/2020 "The patient is morbidly obese, and volume assessments are difficult in obese patients. She is also physically deconditioned at baseline. When she came in she was treated with diuretics for acute diastolic heart failure, and stated she felt as though she was full of fluid. However, since yesterday afternoon she has had a bump in her creatinine causing a hold on any further diuretics. Her urine is concentrated, her lungs are clear, she has no evidence of JVD or peripheral edema on exam, and BMP is 200. Regarding her standing weight this was not assessed until today and she is 132kg. Although this is higher than her "dry weight," it isn't too far from where she was last month. She is euvolemic to hypervolemic, and would continue to diurese her as her kidneys will allow." -08/31/2020: IV lasix 40 mg x 1 given -09/01/2020: stop empiric prednisone to prevent any contribution of steroids to fluid retention. -09/02/2020: creatinine remains reasonably stable as 1.23, continue same IV Lasix as 40 mg q12 hours. fluid restriction of the diet to 1800 ml -09/03/2020: patient continues to be having stable renal function. Continue the IV Lasix as 40 mg q12 hours while on fluid restriction. [facility] cardiology transitioned patient to torsemide and spironolactone -09/04/2020: daily weight of 129.9 kg has shown some improvement of body weight overall, continue oral diuretics for now. continue hospital evaluations for now while on oral diuretic transition. patient prefers to be discharged to home with home health services when she is discharge (5) Acute kidney failure: Acute kidney insufficiency secondary to diuretics -her old records show creatinine around the 1 to 1.17 ranges -creatinine better as 1.18 on 09/01/2020; around 1.23 in recent labs on 09/02/2020 and 09/03/2020 -creatinine 1.07 on 09/04/2020 (6) Cellulitis of abdominal wall: -initially on clindamycin -currently on oral doxycycline, continue for now -09/02/2020: exam of belly with resolving erythema -can stop antibiotics on 09/04/2020 (7) Morbid obesity: with BMI of 48.4 (8) DJD (degenerative joint disease) of knee: -likely from morbid obesity -on chronic oxycodone when at home (9) Chronic pain syndrome: -chronic oxycodone use (10) DM type 2 (diabetes mellitus, type 2): -Oral agents held and she is on basal bolus insulin therapy while admitted -on Lantus and sliding scale insulin (11) Paroxysmal atrial fibrillation: -Rhythm controlled with Dofetilide -has been on chronic termite helper anticogulation with Xarelto (12) Chronic anticoagulation: -as above -Xarelto dose held for 09/03/2020 because of concerns of patient for hemorrhoid bleed, started SCDs on 09/03/[address] Xarelto for DVT prophylaxis -continue to hold Xarelto for now (13) DVT prophylaxis: -SCDs Full Code Disposition: patient is unsatisfied with recent [facility] physical rehabilitation. patient and her son are planning on her to be discharged to home when hospital stay is completed Admission and Anticipated Discharge Date Admission Date: August 28, 2020 Subjective -patient eating the meal. no acute distress when eating food on room air. no acute chest pain or abdomen pain. no nausea. no vomiting. no dizziness. no acute respiratory distress. patient has not had bowel movement since 2 days ago and no blood loss per rectum since that time as per patient because no other bowel movement yet no other symptoms on review of systems Review of Systems Review of Systems: All systems reviewed & are unremarkable except as noted in Subjective Physical Exam Constitutional: + obese and cooperative Eyes: PERRL, conjunctivae normal, anicteric sclerae EOM intact bilaterally ENMT: external ear and nose normal, oropharynx normal Neck: normal visual inspection Respiratory: normal respiratory effort, lungs clear to auscultation Cardiovascular: Rate/Rhythm: regular rate Gastrointestinal (Abdomen): normal bowel sounds, soft, nontender, no hepatosplenomegaly Musculoskeletal: Head/Neck/Chest: normocephalic and head atraumatic Neurologic: PERRL, EOMI, accommodation nl, no face palsy, no dysarthria Psychiatric: A+Ox3, euthymic affect Results & Data Results & Data ([facility]) Vital Signs (Past 12 Hours) Vital Signs Temp Pulse Pulse Resp BP BP Pulse Ox 09/04/20 07:13 36.5 C 73 18 111/59 L 98 09/04/20 02:00 70 16 97 09/04/20 01:19 96 09/03/20 23:46 36.7 C 71 18 102/63 97 (1) COPD (chronic obstructive pulmonary disease) COPD type: unspecified COPD Qualified Code(s): J44.9 - Chronic obstructive pulmonary disease, unspecified
[2020-09-04] MEDS ORDERED: POLYETHYLENE (MIRALAX) 17 GM PACK PO PRN (08:27)
[2020-09-04] MEDS ORDERED: DOCUSATE SODIUM 100 MG CAP PO STA (08:38)
[2020-09-04] MEDS: PANTOprazole 40 MG TAB PO SCH (08:54)
[2020-09-04] MEDS: SENNA 8.6 MG TAB PO SCH ×2 (08:54→20:30)
[2020-09-04] MEDS: POTASSIUM CHLORIDE CRTAB 20 MEQ TABCR PO SCH ×2 (08:55→20:29)
[2020-09-04] MEDS: INSULIN GLARGINE SOLOSTAR 100 UNITS/ML 3 ML PEN SC SCH (08:56)
[2020-09-04] MEDS: INSULIN ASPART 100 UNITS/ML 3 ML PEN SC SCH ×4 (08:56→21:28)
--- NOTE | 2020-09-04 11:14 | Cardiology Progress Note ---
Date of Service September 04, 2020 Assessment & Plan (1) Acute on chronic respiratory failure with hypoxemia: (2) Chronic diastolic heart failure: (3) COPD (chronic obstructive pulmonary disease): (4) ZEYAD (obstructive sleep apnea): (5) Morbid obesity: (6) Cellulitis of abdominal wall: (7) Paroxysmal atrial fibrillation: (8) STACY (acute kidney injury): Continue torsemide 10 mg daily and Aldactone 12.5 mg on Saturday, Saturday, and Saturday. Repeat basic metabolic panel 5 to 7 days post discharge. Outpatient diuretic protocol: Take additional 10 mg of torsemide if weight increases more than 2 pounds in a 24-hour period, 5 pounds in 1 week. Continue Xarelto 20 mg daily. Cardiology will sign off. Please call with questions. Admission and Anticipated Discharge Date Admission Date: August 28, 2020 Subjective Patient seen and examined at the bedside. Feeling well today. No edema, orthopnea, or PND. Transition to torsemide today. No palpitations, lightheadedness, or dizziness. Offers no concerns/complaints. Review of Systems Review of Systems: All systems reviewed & are unremarkable except as noted in HPI & below Physical Exam Constitutional: + obese; no acute distress Respiratory: normal respiratory effort, lungs clear to auscultation Auscultation: no crackles, no rales, no rhonchi and no wheezes Cardiovascular: Rate/Rhythm: regular rate and regular rhythm Heart Sounds: normal S1 and normal S2; no murmur Vessels: no JVD and no carotid bruit Extremities: no edema Gastrointestinal (Abdomen): Inspection/Auscultation: abdomen normal to inspection and normal bowel sounds; abdomen not distended Percussion/Palpation: abdomen soft; abdomen nontender, no guarding and abdomen not rigid Skin: no rashes, warm and dry Neurologic: PERRL, EOMI, accommodation nl, no face palsy, no dysarthria Psychiatric: A+Ox3, euthymic affect Results & Data ([facility]) Vital Signs (Past 12 Hours) Vital Signs Temp Pulse Pulse Resp BP BP Pulse Ox 09/04/20 10:05 71 18 98 09/04/20 07:13 36.5 C 73 18 111/59 L 98 09/04/20 02:00 70 16 97 09/04/20 01:19 96 09/03/20 23:46 36.7 C 71 18 102/63 97 (1) COPD (chronic obstructive pulmonary disease) COPD type: unspecified COPD Qualified Code(s): J44.9 - Chronic obstructive pulmonary disease, unspecified
[2020-09-04] MEDS: CHOLECALCIFEROL 1,000 UNITS 25 MCG TAB PO SCH (12:37)
[2020-09-04] MEDS: CYANOCOBALAMIN 500 MCG TABLET (VITAMIN B-12) PO SCH (12:38)
[2020-09-04] MEDS: ZINC SULFATE 220 MG CAPSULE PO SCH (12:38)
[2020-09-04] MEDS: MULTIVITAMIN TAB PO SCH (12:38)
[2020-09-04] MEDS: CARBOHYDRATES FOR HYPOGLYCEMIA PO PRN (16:52)
[2020-09-04] MEDS: DOCUSATE SODIUM 100 MG CAP PO SCH (20:29)
[2020-09-05] MEDS ORDERED: FUROSEMIDE 20 MG in SYRINGE 0 ML IV ONE (00:06)
[2020-09-05] MEDS: ALBUTEROL 0.5% NEB SOLN 2.5 MG/0.5 ML VIAL NEB PRN ×3 (00:47→22:45)
[2020-09-05] MEDS ORDERED: diphenhydrAMINE Capsule 25 MG CAP PO ONE (02:15)
[2020-09-05] MEDS: LEVOTHYROXINE SODIUM 150 MCG TABLET PO SCH (05:33)
[2020-09-05] MEDS: ACETAMINOPHEN 325 MG TAB PO PRN ×2 (05:35→15:31)
[2020-09-05 07:38] LABS: Basophils # (auto) 0.03 K/uL (0-0.2); Basophils % (auto) 0.4 %; Eosinophils # (auto) 0.45 K/uL (0-0.5); Eosinophils % (auto) 6.6 %; Hemoglobin 9.1 g/dL (12.0-16.0); Immature Granulocytes # (auto) 0.02 K/uL (0.00-0.02); Immature Granulocytes % (auto) 0.3 %; Lymphocytes # (auto) 1.62 K/uL (1.2-3.4); Lymphocytes % (auto) 23.8 %; Mean Corpuscular Hgb Conc 30.3 g/dL (32-36); Mean Platelet Volume 9.8 fL (7.4-10.4); Monocytes # (auto) 0.79 K/uL (0.11-0.59); Monocytes % (auto) 11.6 %; Neutrophils # (auto) 3.89 K/uL (1.4-6.5); Neutrophils % (auto) 57.3 %; Platelet Count 178 K/uL (130-400); RDW Standard Deviation 49.5 fL (36.4-46.3); Red Blood Count 3.37 M/uL (4.2-5.4)
[2020-09-05] MEDS: DOFETILIDE 125 MCG CAPSULE PO SCH ×2 (08:23→21:58)
[2020-09-05] MEDS: TORSEMIDE 10 MG TAB PO SCH (08:23)
[2020-09-05] MEDS: OXYCODONE PO SCH ×2 (08:24→21:57)
[2020-09-05] MEDS: SENNA 8.6 MG TAB PO SCH ×2 (08:24→22:00)
[2020-09-05] MEDS: PANTOprazole 40 MG TAB PO SCH (08:24)
[2020-09-05] MEDS: POTASSIUM CHLORIDE CRTAB 20 MEQ TABCR PO SCH ×2 (08:24→21:58)
[2020-09-05] MEDS: DOCUSATE SODIUM 100 MG CAP PO SCH ×2 (08:24→21:59)
[2020-09-05] MEDS: OXYCODONE 30 MG PO SCH ×2 (08:25→21:56)
[2020-09-05] MEDS: MULTIVITAMIN TAB PO SCH (08:25)
[2020-09-05] MEDS: carvediloL 6.25 MG TAB PO SCH ×2 (08:25→22:00)
[2020-09-05] MEDS: CHOLECALCIFEROL 1,000 UNITS 25 MCG TAB PO SCH (08:26)
[2020-09-05] MEDS: PREMARIN VAG CRM 14 APPLN/30 GM TUBE PV SCH (08:26)
[2020-09-05] MEDS: ZINC SULFATE 220 MG CAPSULE PO SCH (08:26)
[2020-09-05] MEDS: CYANOCOBALAMIN 500 MCG TABLET (VITAMIN B-12) PO SCH (08:26)
[2020-09-05] MEDS: INSULIN GLARGINE SOLOSTAR 100 UNITS/ML 3 ML PEN SC SCH (08:30)
[2020-09-05] MEDS: INSULIN ASPART 100 UNITS/ML 3 ML PEN SC SCH ×4 (08:32→21:55)
[2020-09-05] MEDS ORDERED: SPIRONOLACTONE 12.5 MG TAB PO SCH (09:00)
[2020-09-05 09:28] LABS: Albumin Level 2.7 gm/dl (3.4-5.0); BUN Creatinine Ratio 13.5 (10-20); Calcium 8.5 mg/dl (8.5-10.1); Creatinine Clr Calc Pharmacy 59.3 ml/min; Est GFR (African American) 54.7; Est GFR (Non-African American) 47.2; Potassium 3.9 mmol/L (3.5-5.1)
[2020-09-05 09:31] LABS: Albumin Globulin Ratio 0.8 (0.9-2); Bilirubin,Total 0.4 mg/dl (0.2-1); Globulin 3.5 gm/dl (2.5-4.0); Magnesium 1.9 mg/dl (1.8-2.4); Total Protein 6.2 gm/dl (6.4-8.2)
--- NOTE | 2020-09-05 12:24 | Hospitalist Progress Note ---
Date of Service September 05, 2020 Assessment & Plan (1) Acute on chronic respiratory failure with hypoxemia: -She is on 2LPM continuously at home -initial ED oxygen use around 4 liters/min -currently around 3 liters/min (2) COPD (chronic obstructive pulmonary disease): -as per previous hospitalist Dr. Meek: "she appeared stable and still doesn't have audible wheezing, however, she is still short of breath now with sputum changes. There is a possible exacerbation that is contributing to her dyspnea, so will add prednisone and scheduled bronchodilator therapy and will switch abx to doxycycline. Cont to wean oxygen to goal 88-92%. Baseline chronic oxygen needs are 2LPM continuously." -08/31/2020; Patient breathing on nasal cannula oxygen around 3 liters/min. Patient denies acute distress. No chest pain. no abdomen pain. she denies other symptoms. on lung exam, patient has no audible wheezing but she has requested intermittent nebulizer treatment -09/01/2020: Patient on 2 liters/min nasal cannula, appears to be base line oxygen use -09/03/2020: discussed with patient her use of albuterol. apparently she has been using her own inhaler while in the hospital even though there are hospital orders for prn nebulizer treatments if needed. in addition, patient's exams on this hospital stay has been without much wheezing and hospitalist expressed to patient about albuterol overuse. She reports she is following the previous directions of her [facility] doctor and also has the albuterol a ready in case any strong odors such as scented perfumes trigger shortness of breath (3) ZEYAD (obstructive sleep apnea): -Pt with an elevated bicarb this morning, and has risk factors for ZEYAD. Outpatient discussion with PCP regarding alternative therapies for treatment of ZEYAD. Pt reports claustrophobia with any type of mask. -any Uvulopalatopharyngoplasty will require outpatient surgical assessments as outpatient. Patient's usual pulmonary group is [facility] (4) Acute diastolic heart failure: -as per previous hospitalist Dr. Meek on 08/30/2020 "The patient is morbidly obese, and volume assessments are difficult in obese patients. She is also physically deconditioned at baseline. When she came in she was treated with diuretics for acute diastolic heart failure, and stated she felt as though she was full of fluid. However, since yesterday afternoon she has had a bump in her creatinine causing a hold on any further diuretics. Her urine is concentrated, her lungs are clear, she has no evidence of JVD or peripheral edema on exam, and BMP is 200. Regarding her standing weight this was not assessed until today and she is 132kg. Although this is higher than her "dry weight," it isn't too far from where she was last month. She is euvolemic to hypervolemic, and would continue to diurese her as her kidneys will allow." -08/31/2020: IV lasix 40 mg x 1 given -09/01/2020: stop empiric prednisone to prevent any contribution of steroids to fluid retention. -09/02/2020: creatinine remains reasonably stable as 1.23, continue same IV Lasix as 40 mg q12 hours. fluid restriction of the diet to 1800 ml -09/03/2020: patient continues to be having stable renal function. Continue the IV Lasix as 40 mg q12 hours while on fluid restriction. [facility] cardiology transitioned patient to torsemide and spironolactone -09/04/2020: daily weight of 129.9 kg has shown some improvement of body weight overall, continue oral diuretics for now. continue hospital evaluations for now while on oral diuretic transition. patient prefers to be discharged to home with home health services when she is discharge 09/05/2020: Patient requested additional Lasix from night time doctor, but no evidence for acute fluid overload. discussed with patient that plan remains to continue oral torsemide and Spironolactone. Patient performed well with physical therapy okay. However, patient reports that her family are not able to transport her home or care for her on Saturday09/05/2020. production service manager updated to help with coordination of discharge for 09/06/2020 (5) Acute kidney failure: Acute kidney insufficiency secondary to diuretics -her old records show creatinine around the 1 to 1.17 ranges -creatinine better as 1.18 on 09/01/2020; around 1.23 in recent labs on 09/02/2020 and 09/03/2020 -creatinine 1.07 on 09/04/2020, 1.15 on 09/05/2020 (6) Cellulitis of abdominal wall: -initially on clindamycin -currently on oral doxycycline, continue for now -09/02/2020: exam of belly with resolving erythema -stopped the antibiotics on 09/04/2020 (7) Morbid obesity: with BMI of 48.4 (8) DJD (degenerative joint disease) of knee: -likely from morbid obesity -on chronic oxycodone when at home (9) Chronic pain syndrome: -chronic oxycodone use (10) DM type 2 (diabetes mellitus, type 2): -Oral agents held and she is on basal bolus insulin therapy while admitted -on Lantus and sliding scale insulin (11) Paroxysmal atrial fibrillation: -Rhythm controlled with Dofetilide -has been on chronic nursing home anticogulation with Xarelto (12) Chronic anticoagulation: -as above -Xarelto dose held for 09/03/2020 because of concerns of patient for hemorrhoid bleed, started SCDs on 09/03/[address] Xarelto for DVT prophylaxis -continue to hold Xarelto for now but the blood counts are stable (13) DVT prophylaxis: -SCDs Full Code Disposition: patient is unsatisfied with recent [facility] physical rehabilitation. patient and her son are planning on her to be discharged to home when hospital stay is completed Admission and Anticipated Discharge Date Admission Date: August 28, 2020 Subjective Patient requested additional Lasix from night time doctor, but no evidence for acute fluid overload. discussed with patient that plan remains to continue oral torsemide and Spironolactone. Patient performed well with physical therapy okay. However, patient reports that her family are not able to transport her home or care for her on Saturday09/05/2020. production service manager updated to help with coordination of discharge for 09/06/2020 patient breathing comfortably. no acute pain. no dizziness. patient denies other symptoms including any problems with urination or with bowel movements. no other symptoms on review of systems Review of Systems Review of Systems: All systems reviewed & are unremarkable except as noted in Subjective Physical Exam Constitutional: + obese and cooperative Eyes: PERRL, conjunctivae normal, anicteric sclerae EOM intact bilaterally ENMT: external ear and nose normal, oropharynx normal Neck: normal visual inspection Respiratory: normal respiratory effort, lungs clear to auscultation Cardiovascular: Rate/Rhythm: regular rate Gastrointestinal (Abdomen): normal bowel sounds, soft, nontender, no hepatosplenomegaly Musculoskeletal: Head/Neck/Chest: normocephalic and head atraumatic Neurologic: PERRL, EOMI, accommodation nl, no face palsy, no dysarthria Psychiatric: A+Ox3, euthymic affect Results & Data Results & Data ([facility]) Vital Signs (Past 12 Hours) Vital Signs Temp Pulse Pulse Resp BP Pulse Ox 09/05/20 10:04 79 18 97 09/05/20 07:23 36.6 C 70 16 113/64 96 09/05/20 00:52 79 14 97 (1) COPD (chronic obstructive pulmonary disease) COPD type: unspecified COPD Qualified Code(s): J44.9 - Chronic obstructive pulmonary disease, unspecified
[2020-09-05] MEDS: MAGNESIUM OXIDE 400 MG TAB PO SCH (15:31)
[2020-09-05] MEDS: DOCUSATE SODIUM/SENNA 50/8.6MG TAB PO PRN (23:04)
[2020-09-06] MEDS ORDERED: diphenhydrAMINE Capsule 25 MG CAP PO ONE (00:22)
[2020-09-06] MEDS: ACETAMINOPHEN 325 MG TAB PO PRN (04:51)
[2020-09-06] MEDS: LEVOTHYROXINE SODIUM 150 MCG TABLET PO SCH (04:52)
[2020-09-06] MEDS ORDERED: POLYETHYLENE (MIRALAX) 17 GM PACK PO ONE (08:27)
--- NOTE | 2020-09-06 08:39 | Hospitalist Progress Note ---
Date of Service September 06, 2020 Assessment & Plan (1) Acute on chronic respiratory failure with hypoxemia: -She is on 2LPM continuously at home -initial ED oxygen use around 4 liters/min -currently around 3 liters/min (2) COPD (chronic obstructive pulmonary disease): -as per previous hospitalist Dr. Meek: "she appeared stable and still doesn't have audible wheezing, however, she is still short of breath now with sputum changes. There is a possible exacerbation that is contributing to her dyspnea, so will add prednisone and scheduled bronchodilator therapy and will switch abx to doxycycline. Cont to wean oxygen to goal 88-92%. Baseline chronic oxygen needs are 2LPM continuously." -08/31/2020; Patient breathing on nasal cannula oxygen around 3 liters/min. Patient denies acute distress. No chest pain. no abdomen pain. she denies other symptoms. on lung exam, patient has no audible wheezing but she has requested intermittent nebulizer treatment -09/01/2020: Patient on 2 liters/min nasal cannula, appears to be base line oxygen use -09/03/2020: discussed with patient her use of albuterol. apparently she has been using her own inhaler while in the hospital even though there are hospital orders for prn nebulizer treatments if needed. in addition, patient's exams on this hospital stay has been without much wheezing and hospitalist expressed to patient about albuterol overuse. She reports she is following the previous directions of her [facility] doctor and also has the albuterol a ready in case any strong odors such as scented perfumes trigger shortness of breath (3) ZEYAD (obstructive sleep apnea): -Pt with an elevated bicarb this morning, and has risk factors for ZEYAD. Outpatient discussion with PCP regarding alternative therapies for treatment of ZEYAD. Pt reports claustrophobia with any type of mask. -any Uvulopalatopharyngoplasty will require outpatient surgical assessments as outpatient. Patient's usual pulmonary group is [facility] (4) Acute diastolic heart failure: -as per previous hospitalist Dr. Meek on 08/30/2020 "The patient is morbidly obese, and volume assessments are difficult in obese patients. She is also physically deconditioned at baseline. When she came in she was treated with diuretics for acute diastolic heart failure, and stated she felt as though she was full of fluid. However, since yesterday afternoon she has had a bump in her creatinine causing a hold on any further diuretics. Her urine is concentrated, her lungs are clear, she has no evidence of JVD or peripheral edema on exam, and BMP is 200. Regarding her standing weight this was not assessed until today and she is 132kg. Although this is higher than her "dry weight," it isn't too far from where she was last month. She is euvolemic to hypervolemic, and would continue to diurese her as her kidneys will allow." -08/31/2020: IV lasix 40 mg x 1 given -09/01/2020: stop empiric prednisone to prevent any contribution of steroids to fluid retention. -09/02/2020: creatinine remains reasonably stable as 1.23, continue same IV Lasix as 40 mg q12 hours. fluid restriction of the diet to 1800 ml -09/03/2020: patient continues to be having stable renal function. Continue the IV Lasix as 40 mg q12 hours while on fluid restriction. [facility] cardiology transitioned patient to torsemide and spironolactone -09/04/2020: daily weight of 129.9 kg has shown some improvement of body weight overall, continue oral diuretics for now. continue hospital evaluations for now while on oral diuretic transition. patient prefers to be discharged to home with home health services when she is discharge 09/05/2020: Patient requested additional Lasix from night time doctor, but no evidence for acute fluid overload. discussed with patient that plan remains to continue oral torsemide and Spironolactone. Patient performed well with physical therapy okay. However, patient reports that her family are not able to transport her home or care for her on Saturday09/05/2020. watershed manager updated to help with coordination of discharge for 09/06/2020 09/06/2020: discharge to home with home health services discharge pharmacy [facility], [place], [place] patient should follow up with family medical doctor for follow of comprehensive metabolic panel due to being on different discharge medications of diuretics of torsemide 10 mg daily and spironolactone 12.5 mg daily every Saturday/Saturday/ Saturday ( instead of previous furosemide at home) from the hospitalization. Patient did well while on 1800 ml fluid restriction, as she is requesting a more liberal fluid intake when at home and because of outpatient follow up of labs, patient is allowed to have daily 3000 ml fluid intake Xarelto 15 mg daily to be resumed. patient's renally dosed. patient should follow with primary care doctor on repeat comprehensive metabolic panel before any adjustments to dosing of [id number] 09/09/2020 2:00 PM Provider Mendez Swann MD Department Family Practice [facility] 09/26/2020 3:00 PM Provider Massimo Pino PA-C Department Cardiology, [facility] 11/04/2020 2:00 PM Provider Massimo Pino PA-C Department Cardiology, [facility] Patient should continue followup with pulmonary clinic (5) Acute kidney failure: Acute kidney insufficiency secondary to diuretics -her old records show creatinine around the 1 to 1.17 ranges -creatinine better as 1.18 on 09/01/2020; around 1.23 in recent labs on 09/02/2020 and 09/03/2020 -creatinine 1.07 on 09/04/2020, 1.15 on 09/05/2020 (6) Cellulitis of abdominal wall: -initially on clindamycin -currently on oral doxycycline, continue for now -09/02/2020: exam of belly with resolving erythema -stopped the antibiotics on 09/04/2020 (7) Morbid obesity: with BMI of 48.4 (8) DJD (degenerative joint disease) of knee: -likely from morbid obesity -on chronic oxycodone when at home (9) Chronic pain syndrome: -chronic oxycodone use (10) DM type 2 (diabetes mellitus, type 2): -Oral agents held and she is on basal bolus insulin therapy while admitted -on Lantus and sliding scale insulin (11) Paroxysmal atrial fibrillation: -Rhythm controlled with Dofetilide -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 patient's renally dosed. patient should follow with primary care doctor on repeat comprehensive metabolic panel before any adjustments to dosing of Xarelto (13) DVT prophylaxis: -SCDs Full Code Disposition: patient is unsatisfied with recent [facility] physical rehabilitation. patient and her son are planning on her to be discharged to home when hospital stay is completed Admission and Anticipated Discharge Date Admission Date: August 28, 2020 Subjective Patient reports recent good performance with physical therapy. she denies acute dyspnea. no chets pain. no abdomen pain. no bowel movement today. no noticing recent blood from hemorrhoids. no nausea. eating food. no vomiting Review of Systems Review of Systems: All systems reviewed & are unremarkable except as noted in Subjective Physical Exam Constitutional: + obese and cooperative Eyes: PERRL, conjunctivae normal, anicteric sclerae EOM intact bilaterally ENMT: external ear and nose normal, oropharynx normal Neck: normal visual inspection Respiratory: normal respiratory effort, lungs clear to auscultation Cardiovascular: Rate/Rhythm: regular rate Gastrointestinal (Abdomen): normal bowel sounds, soft, nontender, no hepatosplenomegaly Musculoskeletal: Head/Neck/Chest: normocephalic and head atraumatic Skin: + erythema (around belly area/pannus) Neurologic: PERRL, EOMI, accommodation nl, no face palsy, no dysarthria Psychiatric: A+Ox3, euthymic affect Results & Data Results & Data ([facility]) Vital Signs (Past 12 Hours) Vital Signs Temp Pulse Resp BP Pulse Ox 09/06/20 07:54 36.9 C 81 20 136/56 L 96 09/05/20 23:10 36.5 C 62 18 147/78 H 94 09/05/20 22:45 78 20 98 (1) COPD (chronic obstructive pulmonary disease) COPD type: unspecified COPD Qualified Code(s): J44.9 - Chronic obstructive pulmonary disease, unspecified
[2020-09-06] MEDS: OXYCODONE 30 MG PO SCH (08:44)
[2020-09-06] MEDS: OXYCODONE PO SCH (08:44)
[2020-09-06] MEDS: carvediloL 6.25 MG TAB PO SCH (08:45)
[2020-09-06] MEDS: INSULIN ASPART 100 UNITS/ML 3 ML PEN SC SCH ×2 (08:45→12:18)
[2020-09-06] MEDS: SENNA 8.6 MG TAB PO SCH (08:45)
--- NOTE | 2020-09-06 08:47 | Discharge Summary ---
Date of Service September 06, 2020 Admission HPI Per Admitting Provider 75 y/o F c/o SOB and abd pain. Pt states that she has been having worsening SOB over the last 1.5-2 weeks. She has hx of CHF and lasix use, so SNF was attempting increased lasix during this time without improvement. Pt states that she was SOB at rest or with ambulation. Occasional L sided chest pain under her breast that would come on with SOB but resolve "by the time I called and nursing got to me". She states abd redness and warmth with increased bloating. She has been constipated lately and was taking metamucil and a stool softener, but without help. No internal abd pain, only the pain related to the external skin. She has had intermittent n/v recently, last emesis yesterday AM. She has not attempted PO today due to feeling unwell and then being in the ED, but is hungry now. She has no prior hx of abd wall cellulitis. She does have hx of pancreatitis, but this feels different to her. Pt states she has been measuring her urine herself and it has not been much until getting lasix in the ED. She states that she responds better to brand name lasix over furosemide in the past. Pt states that she has not been OOB, but her SOB at rest is much better. No further chest pain. 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 Still feels hot to her. Principal Diagnosis Acute on chronic respiratory failure with hypoxemia: COPD (chronic obstructive pulmonary disease) with exacerbation Acute diastolic heart failure ZEYAD (obstructive sleep apnea) Morbid obesity with BMI of 48.4 Cellulitis of abdominal wall DM type 2 (diabetes mellitus, type 2) Paroxysmal atrial fibrillation and on Chronic anticoagulation: Discharge Exam Constitutional + obese and cooperative Eyes PERRL, conjunctivae normal, anicteric sclerae EOM intact bilaterally ENMT external ear and nose normal, oropharynx normal Neck normal visual inspection Respiratory normal respiratory effort, lungs clear to auscultation Cardiovascular Rate/Rhythm: regular rate Gastrointestinal (Abdomen) normal bowel sounds, soft, nontender, no hepatosplenomegaly Musculoskeletal Head/Neck/Chest: normocephalic and head atraumatic Skin + erythema (around belly area/pannus) Neurologic PERRL, EOMI, accommodation nl, no face palsy, no dysarthria Psychiatric A+Ox3, euthymic affect Discharge Data Allergies Allergy/AdvReac Type Severity Reaction Status Date / Time arformoterol Allergy Severe TACHYCARDIA Verified 08/28/20 15:14 aspirin Allergy Severe HIVES, SOB Verified 08/28/20 15:14 ciprofloxacin Allergy Severe Unknown Verified 08/28/20 15:14 clarithromycin [From Biaxin] Allergy Severe Unknown Verified 08/28/20 15:14 Iodinated Contrast Media Allergy Severe "CAUSED Verified 08/28/20 15:14 ASTHMA ATTACK" metaproterenol [From Alupent] Allergy Severe Unknown Verified 08/28/20 15:14 metformin [From Riomet] Allergy Severe Unknown Verified 08/28/20 15:14 NSAIDS (Non-Steroidal Allergy Severe Hives Verified 08/28/20 15:14 Anti-Inflamma Penicillins Allergy Severe SOB, HIVES Verified 08/28/20 15:14 pioglitazone [From Actos] Allergy Severe Unknown Verified 08/28/20 15:14 sotalol Allergy Severe increased Verified 08/28/20 15:14 breathing problems Sulfa (Sulfonamide Allergy Severe Anaphylaxis Verified 08/28/20 15:14 Antibiotics) tiotropium Allergy Severe Unknown Verified 08/28/20 15:14 [From Spiriva with HandiHaler] aspartame Allergy Intermediate HIVES, Verified 08/28/20 15:14 ITCHY chlorhexidine Allergy Intermediate BLISTERY Verified 08/28/20 15:14 RASH ipratropium Allergy Mild SHORTNESS Verified 08/28/20 15:14 OF BREATH povidone Allergy Mild BLISTER Verified 08/28/20 15:14 WITH TAPE fish derived Allergy Unknown Unknown Verified 08/28/20 15:14 Fish Containing Products Allergy Verified 08/28/20 15:14 shellfish derived Allergy Verified 08/28/20 15:14 stevioside [From Stevia] Allergy Verified 08/28/20 15:14 meperidine AdvReac Intermediate Gastrointestinal Verified 08/28/20 15:14 Upset morphine AdvReac Intermediate Gastrointestinal Verified 08/28/20 15:14 Upset adhesive AdvReac Mild BLISTERS Verified 08/28/20 15:14 WITH TAPE banana AdvReac Verified 08/28/20 15:14 sucralose AdvReac Verified 08/28/20 15:14 [From Splenda (sucralose)] Consultations 08/28/20 17:49 ED Decision to Admit Stat 08/28/20 21:09 Consult Case Management - Discharge Planning Routine 09/03/20 08:05 Consult Cardiology Routine Ordered Studies 08/28/20 14:18 CT abd pelvis wo con Stat Hospital Course (1) Acute on chronic respiratory failure with hypoxemia: -She is on 2LPM continuously at home -initial ED oxygen use around 4 liters/min -currently around 3 liters/min (2) COPD (chronic obstructive pulmonary disease): -as per previous hospitalist Dr. Meek: "she appeared stable and still doesn't have audible wheezing, however, she is still short of breath now with sputum changes. There is a possible exacerbation that is contributing to her dyspnea, so will add prednisone and scheduled bronchodilator therapy and will switch abx to doxycycline. Cont to wean oxygen to goal 88-92%. Baseline chronic oxygen needs are 2LPM continuously." -08/31/2020; Patient breathing on nasal cannula oxygen around 3 liters/min. Patient denies acute distress. No chest pain. no abdomen pain. she denies other symptoms. on lung exam, patient has no audible wheezing but she has requested intermittent nebulizer treatment -09/01/2020: Patient on 2 liters/min nasal cannula, appears to be base line oxygen use -09/03/2020: discussed with patient her use of albuterol. apparently she has been using her own inhaler while in the hospital even though there are hospital orders for prn nebulizer treatments if needed. in addition, patient's exams on this hospital stay has been without much wheezing and hospitalist expressed to patient about albuterol overuse. She reports she is following the previous directions of her [facility] and also has the albuterol a ready in case any strong odors such as scented perfumes trigger shortness of breath (3) ZEYAD (obstructive sleep apnea): -Pt with an elevated bicarb this morning, and has risk factors for ZEYAD. Outpatient discussion with PCP regarding alternative therapies for treatment of ZEYAD. Pt reports claustrophobia with any type of mask. -any Uvulopalatopharyngoplasty will require outpatient surgical assessments as outpatient. Patient's usual pulmonary group is [facility] (4) Acute diastolic heart failure: -as per previous hospitalist Dr. Meek on 08/30/2020 "The patient is morbidly obese, and volume assessments are difficult in obese patients. She is also physically deconditioned at baseline. When she came in she was treated with diuretics for acute diastolic heart failure, and stated she felt as though she was full of fluid. However, since yesterday afternoon she has had a bump in her creatinine causing a hold on any further diuretics. Her urine is concentrated, her lungs are clear, she has no evidence of JVD or peripheral edema on exam, and BMP is 200. Regarding her standing weight this was not assessed until today and she is 132kg. Although this is higher than her "dry weight," it isn't too far from where she was last month. She is euvolemic to hypervolemic, and would continue to diurese her as her kidneys will allow." -08/31/2020: IV lasix 40 mg x 1 given -09/01/2020: stop empiric prednisone to prevent any contribution of steroids to fluid retention. -09/02/2020: creatinine remains reasonably stable as 1.23, continue same IV Lasix as 40 mg q12 hours. fluid restriction of the diet to 1800 ml -09/03/2020: patient continues to be having stable renal function. Continue the IV Lasix as 40 mg q12 hours while on fluid restriction. [facility] cardiology transitioned patient to torsemide and spironolactone -09/04/2020: daily weight of 129.9 kg has shown some improvement of body weight overall, continue oral diuretics for now. continue hospital evaluations for now while on oral diuretic transition. patient prefers to be discharged to home with home health services when she is discharge 09/05/2020: Patient requested additional Lasix from night time doctor, but no evidence for acute fluid overload. discussed with patient that plan remains to continue oral torsemide and Spironolactone. Patient performed well with physical therapy okay. However, patient reports that her family are not able to transport her home or care for her on Saturday09/05/2020. network account manager updated to help with coordination of discharge for 09/06/2020 09/06/2020: discharge to home with home health services discharge pharmacy [facility], [place], [place] patient should follow up with family medical doctor for follow of comprehensive metabolic panel due to being on different discharge medications of diuretics of torsemide 10 mg daily and spironolactone 12.5 mg daily every Saturday/Saturday/ Saturday ( instead of previous furosemide at home) from the hospitalization. Patient did well while on 1800 ml fluid restriction, as she is requesting a more liberal fluid intake when at home and because of outpatient follow up of labs, patient is allowed to have daily 3000 ml fluid intake Xarelto 15 mg daily to be resumed. patient's renally dosed. patient should follow with primary care doctor on repeat comprehensive metabolic panel before any adjustments to dosing of [id number] 09/09/2020 2:00 PM Provider Mendez Swann MD Department Family Practice [facility] 09/26/2020 3:00 PM Provider Massimo Pino PA-C Department Cardiology, [facility] 11/04/2020 2:00 PM Provider Massimo Pino PA-C Department Cardiology, [facility] Patient should continue followup with pulmonary clinic (5) Acute kidney failure: Acute kidney insufficiency secondary to diuretics -her old records show creatinine around the 1 to 1.17 ranges -creatinine better as 1.18 on 09/01/2020; around 1.23 in recent labs on 09/02/2020 and 09/03/2020 -creatinine 1.07 on 09/04/2020, 1.15 on 09/05/2020 (6) Cellulitis of abdominal wall: -initially on clindamycin -currently on oral doxycycline, continue for now -09/02/2020: exam of belly with resolving erythema -stopped the antibiotics on 09/04/2020 (7) Morbid obesity: with BMI of 48.4 (8) DJD (degenerative joint disease) of knee: -likely from morbid obesity -on chronic oxycodone when at home (9) Chronic pain syndrome: -chronic oxycodone use (10) DM type 2 (diabetes mellitus, type 2): -Oral agents held and she is on basal bolus insulin therapy while admitted -on Lantus and sliding scale insulin (11) Paroxysmal atrial fibrillation: -Rhythm controlled with Dofetilide -has been on chronic half-way anticogulation with Xarelto (12) Chronic anticoagulation: -as above -Xarelto dose held for 09/03/2020 because of concerns of patient for hemorrhoid bleed, started SCDs on 09/03/[address] Xarelto for DVT prophylaxis -Xarelto 15 mg daily to be resumed. patient's renally dosed. patient should follow with primary care doctor on repeat comprehensive metabolic panel before any adjustments to dosing of Xarelto (13) DVT prophylaxis: -SCDs Full Code Disposition: patient is unsatisfied with recent [facility] physical rehabilitation. patient and her son are planning on her to be discharged to home when hospital stay is completed Total Time Total Time Spent Total Time Spent (In Minutes): 40 minutes Total Time Includes: Examination of the Patient, Discharge Planning, Medication Reconciliation and Communication With Other Providers Discharge Plan Discharge Items Patient Disposition: Home - Home Health Services Reason For Visit: SOB CELLULITIS Discharge Diagnosis: Acute on chronic respiratory failure with hypoxemia: COPD (chronic obstructive pulmonary disease) with exacerbation Acute diastolic heart failure ZEYAD (obstructive sleep apnea) Morbid obesity with BMI of 48.4 Cellulitis of abdominal wall DM type 2 (diabetes mellitus, type 2) Paroxysmal atrial fibrillation and on Chronic anticoagulation: Condition on Discharge: Good Activity: Per Instructions section Non-emergency contact: Primary Care Provider and [employer] Call non-emergency contact if: you have any medication questions Follow-up/Referrals: Mendez Swann MD [Staff Physician] - 09/09/20 2:00 pm (Date & Time 09/09/2020 2:00 PM Provider Mendez Swann MD Department Family [facility] ) Diet: Carb Consistent or DM2 and Heart Healthy Diet Comment: fluid restriction to 3000 ml at home Addtl Attending Provider Instructions: discharge pharmacy [facility] [place], [place] patient should follow up with family medical doctor for follow of comprehensive metabolic panel due to being on different discharge medications of diuretics of torsemide 10 mg daily and spironolactone 12.5 mg daily every Saturday/Saturday/ Saturday ( instead of previous furosemide at home) from the hospitalization. Patient did well while on 1800 ml fluid restriction, as she is requesting a more liberal fluid intake when at home and because of outpatient follow up of labs, patient is allowed to have daily 3000 ml fluid intake 09/09/2020 2:00 PM Provider Mendez Swann MD Department Family Practice [facility] 09/26/2020 3:00 PM Provider Massimo Pino PA-C Department Cardiology, [facility] 11/04/2020 2:00 PM Provider Massimo Pino PA-C Department Cardiology, [facility] patient should continue followup with pulmonary clinic Pending Studies at Discharge: No Stand-Alone Forms: My [facility], Smoking Cessation Medications and DC Order Prescriptions: New docusate sodium 100 mg Capsule 100 mg PO BID 30 Days Qty: 60 RF: 0 acetaminophen 325 mg Tablet 325 mg PO Q6H PRN (Reason: pain) 5 Days Qty: 20 RF: 0 torsemide 10 mg Tablet 10 mg PO QAM 30 Days Qty: 30 RF: 0 spironolactone 25 mg Tablet 12.5 mg PO MoWeFr@0900 30 Days Qty: 7 RF: 0 Continued albuterol sulfate [Ventolin HFA] 90 mcg/actuation HFA aerosol inhaler 2 puff INHALATION Q6H PRN (Reason: Shortness Of Breath Or Wheezing) Qty: 3 RF: 1 baclofen 10 mg tablet 5 mg PO BID PRN (Reason: Muscle Spasm) RF: 0 sennosides-docusate sodium [Senokot-S] 8.6-50 mg tablet 1 tabcap PO BID PRN (Reason: Constipation) RF: 0 dofetilide [Tikosyn] 125 mcg capsule 250 mcg PO Q12H RF: 0 albuterol sulfate 2.5 mg /3 mL (0.083 %) solution for nebulization 2.5 mg INHALATION Q4H PRN (Reason: Shortness Of Breath Or Wheezing) Qty: 180 RF: 5 levothyroxine 150 mcg capsule 150 mcg PO QAM RF: 0 carvedilol 3.125 mg tablet 6.25 mg PO BID RF: 0 metformin [Glucophage XR] 500 mg tablet extended release 24 hr 1,000 mg PO PM RF: 0 potassium chloride [Klor-Con M10] 10 mEq tablet,ER particles/crystals 10 meq PO QAM RF: 0 hydrocortisone [Proctosol HC] 2.5 % Cream With Perineal Applicator 1 applic EXT BID PRN (Reason: hemorrhoids) Qty: 30 RF: 2 ondansetron HCl 4 mg tablet 4 mg PO Q6H PRN (Reason: Nausea) RF: 0 cyanocobalamin (vitamin B-12) [Vitamin B-12] 500 mcg Tablet 500 mcg PO QAM RF: 0 pantoprazole [Protonix] 40 mg Tablet,Delayed Release (Dr/Ec) 40 mg PO QAM RF: 0 rivaroxaban 15 mg Tablet 15 mg PO PM RF: 0 Metamucil 3.4 gram/5.4 gram Powder 1 tbsp PO QAM RF: 0 meclizine 25 mg Tablet 25 mg PO Q8H PRN (Reason: Dizziness) RF: 0 Premarin 0.625 mg/gram Cream 1 applic Topical 3XWK RF: 0 multivitamin Tablet 1 tab PO QAM RF: 0 cholecalciferol (vitamin D3) [Vitamin D3] 25 mcg (1,000 unit) Tablet 25 mcg PO QAM RF: 0 Zinc Tablets 1 tab PO QAM RF: 0 oxycodone [OxyContin] 60 mg Tablet Extended Release 12hr 30 mg PO Q12H Qty: 3 RF: 0 oxycodone 10 mg Tablet 10 mg PO Q4H PRN (Reason: Pain) Qty: 10 RF: 0 Discontinued furosemide [Lasix] 20 mg tablet 40 mg PO QAM RF: 0 acetaminophen [Tylenol] 325 mg Tablet 650 mg PO Q6H PRN (Reason: Pain) RF: 0 docusate sodium [Colace] 100 mg Capsule 100 mg PO QAM RF: 0 Discharge Orders: Discharge Order (Routine); Ordered 09/06/20 Ordered By: Charles Garcia Admission Data Admit Date/Time: 08/28/20 19:03 Attending Provider: Charles Garcia Admit Provider: Brynn Beverly Primary Care Provider: Tori Jiang Other Providers: Kemal Larkin ; [facility] ; Brynn Beverly ; [facility],Home Healthcare ; Selvin Turner
[2020-09-06] MEDS: MULTIVITAMIN TAB PO SCH (08:48)
[2020-09-06] MEDS: DOFETILIDE 125 MCG CAPSULE PO SCH (08:48)
[2020-09-06] MEDS: CHOLECALCIFEROL 1,000 UNITS 25 MCG TAB PO SCH (08:48)
[2020-09-06] MEDS: DOCUSATE SODIUM 100 MG CAP PO SCH (08:48)
[2020-09-06] MEDS: INSULIN GLARGINE SOLOSTAR 100 UNITS/ML 3 ML PEN SC SCH (08:48)
[2020-09-06] MEDS: ZINC SULFATE 220 MG CAPSULE PO SCH (08:48)
[2020-09-06] MEDS: PANTOprazole 40 MG TAB PO SCH (08:48)
[2020-09-06] MEDS: CYANOCOBALAMIN 500 MCG TABLET (VITAMIN B-12) PO SCH (08:48)
[2020-09-06] MEDS: TORSEMIDE 10 MG TAB PO SCH (08:48)
[2020-09-06] MEDS: POTASSIUM CHLORIDE CRTAB 20 MEQ TABCR PO SCH (08:48)
[2020-09-06] MEDS: MAGNESIUM OXIDE 400 MG TAB PO SCH (08:49)
[2020-09-06] MEDS: RIVAROXABAN 15 MG TAB PO STA ×2 (09:06→09:53)
[2020-09-06] MEDS: ONDANSETRON INJ 2 MG/ML 2 ML VIAL IV PRN (09:18)
[2020-09-06] MEDS: ALBUTEROL 0.5% NEB SOLN 2.5 MG/0.5 ML VIAL NEB PRN (09:26)
[2020-09-06] MEDS: DOCUSATE SODIUM/SENNA 50/8.6MG TAB PO PRN (11:17)
[2020-09-07] MEDS ORDERED: RIVAROXABAN 15 MG TAB PO SCH (11:30)
== END 2020-09-06 16:50 | disposition home health service (06) | DRG 291 ==
LOC: ED 13:38 → 2E 19:03 → SUATTDRO 19:03 → 2E 20:29 → 3E 09-01 10:58

== ENCOUNTER 2020-09-09 13:28 | Observation (INO) ==
--- NOTE | 2020-09-09 14:11 | Emergency Department Note ---
Impression & Plan Weakness, Acute dehydration, Fall, SOB (shortness of breath) ED Provider Note NAME: MAGEN MARTINEZ AGE: 75 SEX: F : 1945 ARRIVES VIA: Ambulance INFORMANT: [Patient] ED PROVIDER(S): [Erick Oconnell MD] CHIEF COMPLAINT: Weakness HISTORY OF PRESENT ILLNESS: The patient is a 75-year-old female who is weak and had a controlled fall today. He did not lose consciousness or strike her head. The patient was in our hospital for heart failure and an exacerbation of COPD. She was discharged 3 days ago. The patient states that she thinks her urine outputs are not high enough. She was switched from Lasix to a new diuretic while in the hospital this past week. She is not convinced the new diuretic is working as well. Patient denies any current shortness of breath although, when she walks around, she feels somewhat short of breath. She wears O2 at 3 L all the time. There has been no chest pain. No fever. No real increased cough. No abdominal pain. She states that both her legs and arms feel weak. Almost like Jell-O. She was unable to get herself off the floor today and had to have help from family. She denies any injury from this fall. The patient was seen by care workers that come to her home. They felt that with the her weakness, she deserved an evaluation in the ED. REVIEW OF SYSTEMS: See HPI for pertinent positives and negatives. A total of ten systems were reviewed and were otherwise negative. PMHx/PSHx: See Below SOCIAL HISTORY: See Below. PHYSICAL EXAM: GENERAL: Patient is in no acute distress. HEENT: No acute trauma, normocephalic atraumatic, mucous membranes moist, no nasal congestion, no scleral icterus. NECK: No stridor, no adenopathy, no meningismus, trachea is midline. LUNGS: Clear to auscultation bilaterally, no wheeze, no rhonchi, breath sounds equal. HEART: Without murmurs gallops or rubs, regular rate and rhythm. ABDOMEN: Soft, nontender, bowel sounds positive, no hernias, no peritonitis. EXTREMITIES: No cyanosis or edema, full range of motion of all the joints without pain or difficulty, no signs for acute trauma. NEUROLOGIC: Oriented x 3, no acute motor or sensory deficits, no focal weakness. SKIN: No rash, no jaundice, no diaphoresis. DIFFERENTIAL DIAGNOSIS: Infection, dehydration, metabolic abnormality, hypo/hyperglycemia, CHF, UTI, electrolyte disturbance, anemia, hypoxia, cardiac sources, intracerebral event, toxicologic, neurologic, as well as other pathologies. EMERGENCY DEPARTMENT COURSE/PROCEDURES: ECG: Indication was weakness. The ECG shows a normal sinus rhythm with a poor baseline. The rate is 63. There is no ST elevation, no PVCs. The QTc is 474. Continuous Cardiac Monitoring: An order was placed for continuous cardiac monitoring. The monitor shows a rate of 64 with normal sinus rhythm. MEDICAL DECISION MAKING: There is no leukocytosis. The patient is anemic but this is baseline looking back at previous testing. There is a normal platelet count. No significant electrolyte abnormality. The patient's creatinine is slightly higher today at 1.48. This is above baseline and consistent with some dehydration. No worrisome liver enzyme elevation. BNP was not elevated making CHF less likely. The patient's TSH was slightly high however, the T4 was normal. ECG shows a sinus rhythm, no acute ischemia. Cardiac enzyme testing x1 is not consistent with acute cardiac injury. Chest film shows some cardiomegaly, no concerning CHF, no pneumonia. The film looks actually slightly improved compared to a recent chest film. Urinalysis does not show evidence for infection. On exam, the patient was not febrile or toxic. She had no focal neurologic deficits. The patient received 2/500 cc saline boluses. She has been resting comfortably. Her vital signs have remained stable. She is saturating well on her typical 3 L of nasal cannula oxygen. Patient underwent an ambulation trial. She was very weak and very short of breath. She could not walk but a few steps. She was quite unsteady. Patient does not feel safe with discharge home. She feels too weak to be safe to care for herself. I talked to case management about having the patient sent to rehab. Unfortunately, she requires a hospital stay before rehab placement. I spoke to the patient about the need for hospital stay and then possibly an inpatient rehab stay. She did consent to this plan. The on-call hospitalist was consulted. Of note, I have ordered for a brain CT to rule out any chance of intracranial bleeding. The patient is on Xarelto. She did fall. Despite denying head injury, with her increasing weakness, I felt the CT was necessary. The results are pending. Past Med/Surg History Medical History (Updated 09/09/20 @ 18:18 by Erick Oconnell MD) Asthma Chronic anticoagulation Chronic diastolic CHF (congestive heart failure) Chronic respiratory failure with hypoxia CKD (chronic kidney disease), stage III COPD (chronic obstructive pulmonary disease) Cor pulmonale, chronic DM type 2 (diabetes mellitus, type 2) Dyslipidemia History of TIA (transient ischemic attack) Hypothyroidism ZEYAD (obstructive sleep apnea) Paroxysmal atrial fibrillation Surgical History H/O arthroscopic knee surgery History of appendectomy History of cataract surgery History of cholecystectomy History of hysterectomy Family History Father Asthma Lung cancer Mother Diabetes Heart disease Brother Colon cancer Daughter Diabetes Brother Stroke Social History Smoking Status: Never smoker Second Hand Exposure: No; Hx Alcohol Use: No Hx Substance Use: No Preferred Language: Panamanian Communication Ability: Effective 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 Beliefs That Will Affect Care: None marital status: Current Living Situation: Rehab Current Living Situation Comment: lives with son Feels Safe at Home: Yes Assistive Devices: Walker Allergies Allergies Allergy/AdvReac Type Severity Reaction Status Date / Time arformoterol Allergy Severe TACHYCARDIA Verified 08/28/20 15:14 aspirin Allergy Severe HIVES, SOB Verified 08/28/20 15:14 ciprofloxacin Allergy Severe Unknown Verified 08/28/20 15:14 clarithromycin [From Biaxin] Allergy Severe Unknown Verified 08/28/20 15:14 Iodinated Contrast Media Allergy Severe "CAUSED Verified 08/28/20 15:14 ASTHMA ATTACK" metaproterenol [From Alupent] Allergy Severe Unknown Verified 08/28/20 15:14 metformin [From Riomet] Allergy Severe Unknown Verified 08/28/20 15:14 NSAIDS (Non-Steroidal Allergy Severe Hives Verified 08/28/20 15:14 Anti-Inflamma Penicillins Allergy Severe SOB, HIVES Verified 08/28/20 15:14 pioglitazone [From Actos] Allergy Severe Unknown Verified 08/28/20 15:14 sotalol Allergy Severe increased Verified 08/28/20 15:14 breathing problems Sulfa (Sulfonamide Allergy Severe Anaphylaxis Verified 08/28/20 15:14 Antibiotics) tiotropium Allergy Severe Unknown Verified 08/28/20 15:14 [From Spiriva with HandiHaler] aspartame Allergy Intermediate HIVES, Verified 08/28/20 15:14 ITCHY chlorhexidine Allergy Intermediate BLISTERY Verified 08/28/20 15:14 RASH ipratropium Allergy Mild SHORTNESS Verified 08/28/20 15:14 OF BREATH povidone Allergy Mild BLISTER Verified 08/28/20 15:14 WITH TAPE fish derived Allergy Unknown Unknown Verified 08/28/20 15:14 Fish Containing Products Allergy Verified 08/28/20 15:14 shellfish derived Allergy Verified 08/28/20 15:14 stevioside [From Stevia] Allergy Verified 08/28/20 15:14 meperidine AdvReac Intermediate Gastrointestinal Verified 08/28/20 15:14 Upset morphine AdvReac Intermediate Gastrointestinal Verified 08/28/20 15:14 Upset adhesive AdvReac Mild BLISTERS Verified 08/28/20 15:14 WITH TAPE banana AdvReac Verified 08/28/20 15:14 sucralose AdvReac Verified 08/28/20 15:14 [From Splenda (sucralose)] Home Meds Home Medications Medication Instructions Recorded Confirmed Premarin 1 applic TOPICAL [id number] 07/24/18 08/28/20 meclizine 25 mg PO Q8H PRN 07/24/18 08/28/20 levothyroxine 150 mcg capsule 150 mcg PO QAM 06/17/19 08/28/20 metformin [Glucophage XR] 1,000 mg PO PM 08/04/19 08/28/20 potassium chloride [Klor-Con M10] 10 meq PO QAM 08/04/19 08/28/20 baclofen 10 mg tablet 5 mg PO BID PRN tab 08/28/19 08/28/20 dofetilide 125 mcg capsule 250 mcg PO Q12H cap 08/28/19 08/28/20 sennosides 8.6 mg-docusate sodium 1 tabcap PO BID PRN 08/28/19 08/28/20 50 mg tablet carvedilol 3.125 mg tablet 6.25 mg PO BID 09/16/19 08/28/20 Zinc Tablets 1 tab PO QAM 07/22/20 08/28/20 cholecalciferol (vitamin D3) 25 mcg PO QAM 07/22/20 08/28/20 [Vitamin D3] multivitamin 1 tab PO QAM 07/22/20 08/28/20 Metamucil 1 tbsp PO QAM 08/28/20 08/28/20 cyanocobalamin (vitamin B-12) 500 mcg PO QAM 08/28/20 08/28/20 [Vitamin B-12] ondansetron HCl 4 mg PO Q6H PRN 08/28/20 08/28/20 pantoprazole [Protonix] 40 mg PO QAM 08/28/20 08/28/20 rivaroxaban 15 mg PO PM 08/28/20 08/28/20 Previous Rx's Medication Instructions Recorded hydrocortisone [Proctosol HC] 1 applic EXT BID PRN #30 gm 08/17/19 albuterol sulfate 90 mcg/actuation 2 puff INHALATION Q6H PRN #3 07/01/20 aerosol inhaler inhaler albuterol sulfate 2.5 mg INHALATION Q4H PRN #180 ml 07/14/20 oxycodone [OxyContin] 30 mg PO Q12H #3 tab 07/26/20 oxycodone 10 mg PO Q4H PRN #10 tab 07/27/20 acetaminophen 325 mg PO Q6H PRN 5 Days #20 tab 09/06/20 docusate sodium 100 mg PO BID 30 Days #60 cap 09/06/20 spironolactone 12.5 mg PO MoWeFr@0900 30 Days #7 09/06/20 tab torsemide 10 mg PO QAM 30 Days #30 tab 09/06/20 Results & Data (ED) Vital Signs Vital Signs - 24 hr 09/09/20 13:53 09/09/20 14:00 09/09/20 14:08 Temperature 36.7 C Temperature Source Oral Pulse Rate 64 67 Pulse Rate from SpO2 Sensor 69 Respiratory Rate 18 14 Respiratory Effort / Characteristics Non-Labored Spontaneous Respiratory Depth Normal Blood Pressure 119/64 110/59 L Blood Pressure Mean 82 69 Pulse Oximetry 100 100 Oxygen Delivery Method Nasal Cannula Nasal Cannula Nasal Cannula Oxygen Flow Rate 3 3 3 Sepsis Recent Fever Within 48 Hours No Sepsis New/Unexplained Change in Mental Status No Sepsis Action Taken by Nursing No Action Required 09/09/20 14:38 09/09/20 15:00 09/09/20 15:30 Temperature Temperature Source Pulse Rate 66 66 64 Pulse Rate from SpO2 Sensor 65 63 Respiratory Rate 18 17 14 Respiratory Effort / Characteristics Respiratory Depth Blood Pressure 110/53 L 122/55 L 140/87 Blood Pressure Mean 67 82 107 Pulse Oximetry 100 100 Oxygen Delivery Method Nasal Cannula Nasal Cannula Oxygen Flow Rate 3 3 Sepsis Recent Fever Within 48 Hours Sepsis New/Unexplained Change in Mental Status Sepsis Action Taken by Nursing 09/09/20 16:00 09/09/20 16:01 09/09/20 16:30 Temperature Temperature Source Pulse Rate 63 65 63 Pulse Rate from SpO2 Sensor 61 65 62 Respiratory Rate 16 14 15 Respiratory Effort / Characteristics Respiratory Depth Blood Pressure 127/55 L 120/69 Blood Pressure Mean 89 80 Pulse Oximetry 100 100 100 Oxygen Delivery Method Nasal Cannula Nasal Cannula Oxygen Flow Rate 3 3 3 Sepsis Recent Fever Within 48 Hours Sepsis New/Unexplained Change in Mental Status Sepsis Action Taken by Nursing 09/09/20 17:00 09/09/20 17:30 09/09/20 18:00 Temperature Temperature Source Pulse Rate 66 64 Pulse Rate from SpO2 Sensor 69 64 72 Respiratory Rate 17 16 23 Respiratory Effort / Characteristics Respiratory Depth Blood Pressure 122/69 123/66 Blood Pressure Mean 83 83 Pulse Oximetry 100 100 100 Oxygen Delivery Method Nasal Cannula Nasal Cannula Oxygen Flow Rate 3 3 Sepsis Recent Fever Within 48 Hours Sepsis New/Unexplained Change in Mental Status Sepsis Action Taken by Nursing 09/09/20 18:01 Temperature Temperature Source Pulse Rate Pulse Rate from SpO2 Sensor 70 Respiratory Rate 25 H Respiratory Effort / Characteristics Respiratory Depth Blood Pressure 119/83 Blood Pressure Mean 88 Pulse Oximetry 100 Oxygen Delivery Method Nasal Cannula Oxygen Flow Rate 3 Sepsis Recent Fever Within 48 Hours Sepsis New/Unexplained Change in Mental Status Sepsis Action Taken by [facility] Medications Current Medication List: was personally reviewed by me Laboratory Data Attestation: I reviewed the patient's lab results. Result diagrams: 09/09/20 15:13 09/09/20 15:13 Lab Results 09/09/20 09/09/20 09/09/20 Range/Units 14:53 15:13 15:13 WBC 6.78 (4.8-10.8) K/uL RBC 3.40 L (4.2-5.4) M/uL Hgb 9.1 L (12.0-16.0) g/dL Hct 30.5 L (37-47) % MCV 89.7 (80-100) fL MCH 26.8 (25-34) pg MCHC 29.8 L (32-36) g/dL RDW Std Deviation 49.3 H (36.4-46.3) fL RDW Coeff of [place] 15.1 H (11.5-14.5) % Plt Count 217 (130-400) K/uL MPV 9.6 (7.4-10.4) fL Immature Gran % (Auto) 0.3 % Neut % (Auto) 55.9 % Lymph % (Auto) 22.9 % [place] % (Auto) 15.6 % Eos % (Auto) 4.9 % Baso % (Auto) 0.4 % Neut # (Auto) 3.79 (1.4-6.5) K/uL Lymph # (Auto) 1.55 (1.2-3.4) K/uL [place] # (Auto) 1.06 H (0.11-0.59) K/uL Eos # (Auto) 0.33 (0-0.5) K/uL Baso # (Auto) 0.03 (0-0.2) K/uL Immature Gran # (Auto) 0.02 (0.00-0.02) K/uL Sodium 134 L (136-145) mmol/L Potassium 3.7 (3.5-5.1) mmol/L Chloride 94 L (98-107) mmol/L Carbon Dioxide 37 H (21-32) mmol/L Anion Gap 4.0 (3-11) BUN 13 (7-18) mg/dl Creatinine 1.48 H (0.6-1.2) mg/dl Est Cr Clr Drug Dosing 46.4 ml/min Est GFR ( Amer) 40.3 Est GFR (Non-Af Amer) 34.8 BUN/Creatinine Ratio 8.7 L (10-20) Glucose 132 H (70-99) mg/dl Calcium 9.3 (8.5-10.1) mg/dl Magnesium 1.8 (1.8-2.4) mg/dl Total Bilirubin 0.4 (0.2-1) mg/dl AST 15 (15-37) U/L ALT 14 (12-78) U/L Alkaline Phosphatase 61 (45-117) U/L Troponin I < 0.015 (0-0.045) ng/ml NT-Pro-B Natriuret Pep 850 (0-900) pg/ml Total Protein 7.0 (6.4-8.2) gm/dl Albumin 3.2 L (3.4-5.0) gm/dl Globulin 3.8 (2.5-4.0) gm/dl Albumin/Globulin Ratio 0.8 L (0.9-2) TSH 4.810 H (0.300-4.500) uIu/ml Free T4 1.15 (0.8-1.6) ng/dl Urine Color Yellow Urine Appearance Clear (Clear) Urine pH 5.0 (4.5-7.5) Ur Specific [place] 1.012 (1.000-1.030) Urine Protein Negative (Negative) Urine Glucose (UA) Negative (Negative) Urine Ketones Negative (Negative) Urine Blood Negative (Negative) Urine Nitrite Negative (Negative) Urine Bilirubin Negative (Negative) Urine Urobilinogen Negative (Negative) Ur Leukocyte Esterase Negative (Negative) Administered Medications Discontinued Medications Sodium Chloride (Nss) 500 mls @ 999 mls/hr IV .Q31M [id number] Stop: 09/09/20 14:45 Last Infusion: 09/09/20 15:08 Dose: 0 mls/hr Documented by: [id number] Admin: 09/09/20 14:37 Dose: 999 mls/hr Documented by: [id number] Sodium Chloride (Nss 1000ml) 500 mls @ 999 mls/hr IV .Q31M ONE Stop: 09/09/20 16:22 Last Infusion: 09/09/20 17:09 Dose: 0 mls/hr Documented by: [id number] Admin: 09/09/20 16:38 Dose: 999 mls/hr Documented by: [id number] Imaging Data Radiologist's Impression: XR chest 1V portable CLINICAL HISTORY: weakness COMPARISON STUDY: Chest radiograph August 28, 2020. FINDINGS: Cardiomegaly is unchanged. There is no evidence for pulmonary edema. No consolidation is identified. The appearance of the chest is unchanged. No pneumothorax or pleural effusion is noted. IMPRESSION: No acute cardiopulmonary findings. No significant change in appearance of the chest. Discharge Plan Visit Data Chief Complaint: Shortness of Breath/Dyspnea ED Provider: Erick Oconnell Discharge Problem: Weakness, Acute dehydration, Fall, SOB (shortness of breath) Patient Disposition: Admitted As Inpatient Condition: Fair Forms Stand Alone Forms: [facility] Prescriptions Prescriptions: No Action albuterol sulfate [Ventolin HFA] 90 mcg/actuation HFA aerosol inhaler 2 puff INHALATION Q6H PRN (Reason: Shortness Of Breath Or Wheezing) Qty: 3 RF: 1 baclofen 10 mg tablet 5 mg PO BID PRN (Reason: Muscle Spasm) RF: 0 sennosides-docusate sodium [Senokot-S] 8.6-50 mg tablet 1 tabcap PO BID PRN (Reason: Constipation) RF: 0 dofetilide [Tikosyn] 125 mcg capsule 250 mcg PO Q12H RF: 0 albuterol sulfate 2.5 mg /3 mL (0.083 %) solution for nebulization 2.5 mg INHALATION Q4H PRN (Reason: Shortness Of Breath Or Wheezing) Qty: 180 RF: 5 levothyroxine 150 mcg capsule 150 mcg PO QAM RF: 0 carvedilol 3.125 mg tablet 6.25 mg PO BID RF: 0 metformin [Glucophage XR] 500 mg tablet extended release 24 hr 1,000 mg PO PM RF: 0 potassium chloride [Klor-Con M10] 10 mEq tablet,ER particles/crystals 10 meq PO QAM RF: 0 hydrocortisone [Proctosol HC] 2.5 % Cream With Perineal Applicator 1 applic EXT BID PRN (Reason: hemorrhoids) Qty: 30 RF: 2 ondansetron HCl 4 mg tablet 4 mg PO Q6H PRN (Reason: Nausea) RF: 0 cyanocobalamin (vitamin B-12) [Vitamin B-12] 500 mcg Tablet 500 mcg PO QAM RF: 0 pantoprazole [Protonix] 40 mg Tablet,Delayed Release (Dr/Ec) 40 mg PO QAM RF: 0 rivaroxaban 15 mg Tablet 15 mg PO PM RF: 0 Metamucil 3.4 gram/5.4 gram Powder 1 tbsp PO QAM RF: 0 docusate sodium 100 mg Capsule 100 mg PO BID 30 Days Qty: 60 RF: 0 acetaminophen 325 mg Tablet 325 mg PO Q6H PRN (Reason: pain) 5 Days Qty: 20 RF: 0 torsemide 10 mg Tablet 10 mg PO QAM 30 Days Qty: 30 RF: 0 spironolactone 25 mg Tablet 12.5 mg PO MoWeFr@0900 30 Days Qty: 7 RF: 0 meclizine 25 mg Tablet 25 mg PO Q8H PRN (Reason: Dizziness) RF: 0 Premarin 0.625 mg/gram Cream 1 applic Topical 3XWK RF: 0 multivitamin Tablet 1 tab PO QAM RF: 0 cholecalciferol (vitamin D3) [Vitamin D3] 25 mcg (1,000 unit) Tablet 25 mcg PO QAM RF: 0 Zinc Tablets 1 tab PO QAM RF: 0 oxycodone [OxyContin] 60 mg Tablet Extended Release 12hr 30 mg PO Q12H Qty: 3 RF: 0 oxycodone 10 mg Tablet 10 mg PO Q4H PRN (Reason: Pain) Qty: 10 RF: 0 Referrals Referrals: Mendez Swann MD [Primary Care Provider] - Discharge Problem: Fall Qualifiers: Encounter type: initial encounter Qualified Code(s): W19.XXXA - Unspecified fall, initial encounter
[2020-09-09] MEDS ORDERED: SODIUM CHLORIDE 0.9% 500 ML IV SCH (14:15)
--- NOTE | 2020-09-09 14:27 | XRay Report ---
XR chest 1V portable CLINICAL HISTORY: weakness COMPARISON STUDY: Chest radiograph August 28, 2020. FINDINGS: Cardiomegaly is unchanged. There is no evidence for pulmonary edema. No consolidation is id entified. The appearance of the chest is unchanged. No pneumothorax or pleural effusion is noted. IMPRESSION: No acute cardiopulmonary findings. No significant change in appearance of the chest. ACT 112: Negative or not required by law. Electronically signed by: Pascual Santoro M.D. 09/09/2020 2:25 PM
[2020-09-09 15:04] LABS: Appearance Urine Clear (Clear); Bilirubin Urine Negative (Negative); Blood Urine Negative (Negative); Color Urine Yellow; Glucose Urine UA Negative (Negative); Ketones Urine Negative (Negative); Leukocyte Esterase Urine Negative (Negative); Nitrite Urine Negative (Negative); Protein Urine Negative (Negative); Specific Gravity Urine 1.012 (1.000-1.030); Urobilinogen Urine Negative (Negative)
[2020-09-09 15:22] LABS: Basophils # (auto) 0.03 K/uL (0-0.2); Basophils % (auto) 0.4 %; Eosinophils # (auto) 0.33 K/uL (0-0.5); Eosinophils % (auto) 4.9 %; Hematocrit (blood only) 30.5 % (37-47); Hemoglobin 9.1 g/dL (12.0-16.0); Immature Granulocytes # (auto) 0.02 K/uL (0.00-0.02); Immature Granulocytes % (auto) 0.3 %; Lymphocytes # (auto) 1.55 K/uL (1.2-3.4); Lymphocytes % (auto) 22.9 %; Mean Corpuscular Hemoglobin 26.8 pg (25-34); Mean Corpuscular Hgb Conc 29.8 g/dL (32-36); Mean Corpuscular Volume 89.7 fL (80-100); Mean Platelet Volume 9.6 fL (7.4-10.4); Monocytes # (auto) 1.06 K/uL (0.11-0.59); Monocytes % (auto) 15.6 %; Neutrophils # (auto) 3.79 K/uL (1.4-6.5); Neutrophils % (auto) 55.9 %; Platelet Count 217 K/uL (130-400); RDW Coefficient of Variation 15.1 % (11.5-14.5); RDW Standard Deviation 49.3 fL (36.4-46.3); White Blood Count 6.78 K/uL (4.8-10.8)
[2020-09-09 15:39] LABS: Alanine Aminotransferase 14 U/L (12-78); Albumin Level 3.2 gm/dl (3.4-5.0); Aspartate Aminotransferase 15 U/L (15-37); BUN Creatinine Ratio 8.7 (10-20); Blood Urea Nitrogen 13 mg/dl (7-18); Calcium 9.3 mg/dl (8.5-10.1); Carbon Dioxide 37 mmol/L (21-32); Chloride 94 mmol/L (98-107); Creatinine Clr Calc Pharmacy 46.4 ml/min; Est GFR (African American) 40.3; Est GFR (Non-African American) 34.8; Glucose 132 mg/dl (70-99); Magnesium 1.8 mg/dl (1.8-2.4); Potassium 3.7 mmol/L (3.5-5.1); Sodium 134 mmol/L (136-145)
[2020-09-09 15:50] LABS: Albumin Globulin Ratio 0.8 (0.9-2); Alkaline Phosphatase 61 U/L (45-117); Bilirubin,Total 0.4 mg/dl (0.2-1); Globulin 3.8 gm/dl (2.5-4.0); NT Pro B Type Natriuretic Pept 850 pg/ml (0-900); Troponin I < 0.015 ng/ml (0-0.045)
[2020-09-09] MEDS ORDERED: SODIUM CHLORIDE 0.9% 1000ML 500 ML IV ONE (15:52)
--- NOTE | 2020-09-09 15:54 | Electrocardiogram Report ---
Test Reason : Blood Pressure : / mmHG Vent. Rate : 063 BPM Atrial Rate : 063 BPM P-R Int : 192 ms QRS Dur : 084 ms QT Int : 464 ms P-R-T Axes : 082 034 047 degrees QTc Int : 474 ms Normal sinus rhythm Low voltage QRS Borderline ECG When compared with ECG of 28-AUG-2020 14:37, Nonspecific T wave abnormality no longer evident in Anterior leads Confirmed by Jack Fong ([id number]) on 09/09/2020 3:53:25 PM Referred By: Mendez Swann Confirmed By:Jack Fong
[2020-09-09 16:02] LABS: T4 Free Thyroxine 1.15 ng/dl (0.8-1.6)
--- NOTE | 2020-09-09 18:44 | History & Physical Report ---
Date of Service September 09, 2020 Assessment & Plan (1) Weakness: (2) Fall: (3) Ambulatory dysfunction: This is a 75-year-old female who has significant past medical history of chronic hypoxemic respiratory failure, chronic diastolic CHF, COPD, T2DM, HTN, HLD, ZEYAD, PAF anticoagulated on Xarelto, anemia of chronic disease, chronic cor pulmonale morbid obesity, CKD stage III, history of TIA who presents to ED secondary to weakness x2 days. admit to med tele consult PT/OT - pt may benefit from rehab given multiple comorbidities pt received gentle hydration in ED 1L - monitor response will not put on any more fluid given CHF hx (4) Cellulitis of abdominal wall: tx with IV antibiotics most recent admission states redness never went away still warm, mildly pink treat with doxy 100mg bid and monitor (5) Chronic diastolic heart failure: Daily weights, strict I's and O Currently euvolemic continue coreg hold aldactone, torsemide for this evening until renal fxn reassessed in a.m. (6) Chronic respiratory failure with hypoxia: (7) COPD (chronic obstructive pulmonary disease): (8) Cor pulmonale, chronic: No acute exacerbation Chronic respiratory failure with hypoxia and hypercarbia secondary to COPD, cor pulmonale, CHF and possible OHS Continue O2 supplementation Continue albuterol nebulizer treatment (9) DM type 2 (diabetes mellitus, type 2): Last A1c 7.6 08/29/2020 Hold Metformin Lantus/NovoLog per protocol (10) CKD (chronic kidney disease), stage III: Mild acute on chronic renal insufficiency Baseline creatinine ~1.2 BUN/creatinine 13/1.48 Received total of 1 L of IVF in ED Hold torsemide and Aldactone for tomorrow until renal function reassessed Avoid nephrotoxic agents (11) Paroxysmal atrial fibrillation: Rate and rhythm controlled Continue Tikosyn, Coreg and Xarelto (12) Anemia: like 2/2 to multiple co morbidities including renal disease, chf, copd, chronic anticoagulation H&H stable at 9.1 and 30.5 (13) Chronic pain syndrome: 2/2 to Osteoarthritis and morbid obesity on Oxycontin 30mg Q12hr and and oxycodone 10mg q4h prn confirmed via PDMP (14) Morbid obesity: BMI 48.3 encourage lifestyle and diet modifications (15) DVT prophylaxis: Xarelto Disposition: admit to med tele Follow up: PCP Dr. Swann upon discharge Pt was seen and examined in collaboration with Dr. Garcia, please see addendum History of Present Illness Chief Complaint: Weakness x 2 days. Primary Care Provider: Mendez Swann MD This is a 75-year-old female who has significant past medical history of chronic hypoxemic respiratory failure, chronic diastolic CHF, COPD, T2DM, HTN, HLD, ZEYAD, PAF anticoagulated on Xarelto, anemia of chronic disease, chronic cor pulmonale morbid obesity, CKD stage III, history of TIA who presents to ED secondary to weakness x2 days. Of significance patient hospitalized 08/28-09/06 secondary to acute on chronic respiratory failure due to acute on chronic diastolic CHF. She also had abdominal wall cellulitis at that time. She was treated with IV diuresis and transition to oral torsemide and Aldactone. Abdominal cellulitis treated with antibiotics. She was initially admitted from [facility], but was discharged to home. She presents from home secondary to feeling weak for the past 2 days and inability to ambulate. She states today she fell forward onto abdomen after her legs gave out. She is felt weak with walking since discharge. She chronically has BALBUENA but feels it is worse. She is unsure if her legs are more swollen. She has been taking her diuretics as prescribed, but has not been following fluid restriction. She denies any fever, chills, sweats, lightheadedness, dizziness or presyncope symptoms, chest pain, palpitations, shortness with at rest, cough, hemoptysis, current nausea/current vomiting, diarrhea, dysuria or hematuria. She states her last bowel movement was 3 days ago. She has been having intermittent episodes of constipation. During her last hospitalization she required subcu injection of medication to help stimulate bowels. She also required enema. She states she does not move her bowels regularly. She offers suffers from prolapsed bladder and had difficulty urinating yesterday. When she bent over to reduce her prolapse she became more short of breath. She feels she is been eating and drinking less since discharge. Overall less mobile. In ED patient remained hemodynamically stable. She was saturating 99% on 3 L, which is normal for her Lab work notable for H&H 9.1 and 30.5, platelet 217, sodium 134, chloride 94, CO2 37, BUN 13, creatinine 1.48, glucose 132, proBNP 850, TSH 4.8, free T4 1.15. Urinalysis negative. Covid screening negative. She received 500 mL IVF bolus and additional 500 of IVF. It was felt patient may have been over diuresed during previous admission and mild acute renal insufficiency could be contributing to weakness. Allergies Allergy/AdvReac Type Severity Reaction Status Date / Time arformoterol Allergy Severe TACHYCARDIA Verified 09/09/20 18:27 aspirin Allergy Severe HIVES, SOB Verified 09/09/20 18:27 ciprofloxacin Allergy Severe Unknown Verified 09/09/20 18:27 clarithromycin [From Biaxin] Allergy Severe Unknown Verified 09/09/20 18:27 Iodinated Contrast Media Allergy Severe "CAUSED Verified 09/09/20 18:27 ASTHMA ATTACK" metaproterenol [From Alupent] Allergy Severe Unknown Verified 09/09/20 18:27 metformin [From Riomet] Allergy Severe Unknown Verified 09/09/20 18:27 NSAIDS (Non-Steroidal Allergy Severe Hives Verified 09/09/20 18:27 Anti-Inflamma Penicillins Allergy Severe SOB, HIVES Verified 09/09/20 18:27 pioglitazone [From Actos] Allergy Severe Unknown Verified 09/09/20 18:27 sotalol Allergy Severe increased Verified 09/09/20 18:27 breathing problems Sulfa (Sulfonamide Allergy Severe Anaphylaxis Verified 09/09/20 18:27 Antibiotics) tiotropium Allergy Severe Unknown Verified 09/09/20 18:27 [From Spiriva with HandiHaler] aspartame Allergy Intermediate HIVES, Verified 09/09/20 18:27 ITCHY chlorhexidine Allergy Intermediate BLISTERY Verified 09/09/20 18:27 RASH ipratropium Allergy Mild SHORTNESS Verified 09/09/20 18:27 OF BREATH povidone Allergy Mild BLISTER Verified 09/09/20 18:27 WITH TAPE fish derived Allergy Unknown Unknown Verified 09/09/20 18:27 Fish Containing Products Allergy Verified 09/09/20 18:27 psyllium [From Metamucil] Allergy bloating Unverified 09/09/20 18:27 shellfish derived Allergy Verified 09/09/20 18:27 stevioside [From Stevia] Allergy Verified 09/09/20 18:27 meperidine AdvReac Intermediate Gastrointestinal Verified 09/09/20 18:27 Upset morphine AdvReac Intermediate Gastrointestinal Verified 09/09/20 18:27 Upset adhesive AdvReac Mild BLISTERS Verified 09/09/20 18:27 WITH TAPE banana AdvReac Verified 09/09/20 18:27 sucralose AdvReac Verified 09/09/20 18:27 [From Splenda (sucralose)] Home Medications Medication Instructions Recorded Confirmed Type Premarin 1 applic TOPICAL [id number] 07/24/18 09/09/20 History meclizine 25 mg PO Q8H PRN 07/24/18 09/09/20 History levothyroxine 150 mcg capsule 150 mcg PO QAM 06/17/19 09/09/20 History metformin [Glucophage XR] 1,000 mg PO PM 08/04/19 09/09/20 History potassium chloride [Klor-Con M10] 10 meq PO QAM 08/04/19 09/09/20 History hydrocortisone [Proctosol HC] 1 applic EXT BID PRN #30 gm 08/17/19 09/09/20 Rx baclofen 10 mg tablet 5 mg PO BID PRN tab 08/28/19 09/09/20 History sennosides 8.6 mg-docusate sodium 1 tabcap PO BID PRN 08/28/19 09/09/20 History 50 mg tablet albuterol sulfate 90 mcg/actuation 2 puff INHALATION Q6H PRN #3 07/01/20 09/09/20 Rx aerosol inhaler inhaler albuterol sulfate 2.5 mg INHALATION Q4H PRN #180 ml 07/14/20 09/09/20 Rx Zinc Tablets 1 tab PO QAM 07/22/20 09/09/20 History cholecalciferol (vitamin D3) 25 mcg PO QAM 07/22/20 09/09/20 History [Vitamin D3] multivitamin 1 tab PO QAM 07/22/20 09/09/20 History oxycodone [OxyContin] 30 mg PO Q12H #3 tab 07/26/20 09/09/20 Rx oxycodone 10 mg PO Q4H PRN #10 tab 07/27/20 09/09/20 Rx cyanocobalamin (vitamin B-12) 500 mcg PO QAM 08/28/20 09/09/20 History [Vitamin B-12] pantoprazole [Protonix] 40 mg PO QAM 08/28/20 09/09/20 History rivaroxaban 15 mg PO PM 08/28/20 09/09/20 History docusate sodium 100 mg PO BID 30 Days #60 cap 09/06/20 09/09/20 Rx spironolactone 12.5 mg PO MoWeFr@0900 30 Days #7 09/06/20 09/09/20 Rx tab torsemide 10 mg PO QAM 30 Days #30 tab 09/06/20 09/09/20 Rx carvedilol 6.25 mg PO BID 09/09/20 09/09/20 History dofetilide 250 mcg PO Q12 09/09/20 09/09/20 History Past Med/Surg History Medical History (Updated 09/09/20 @ 20:02 by Norah Beebe PA-C) Asthma Chronic anticoagulation Chronic diastolic CHF (congestive heart failure) Chronic respiratory failure with hypoxia CKD (chronic kidney disease), stage III COPD (chronic obstructive pulmonary disease) Cor pulmonale, chronic DM type 2 (diabetes mellitus, type 2) Dyslipidemia History of TIA (transient ischemic attack) Hypothyroidism ZEYAD (obstructive sleep apnea) Paroxysmal atrial fibrillation Surgical History H/O arthroscopic knee surgery History of appendectomy History of cataract surgery History of cholecystectomy History of hysterectomy Family History Father Asthma Lung cancer Mother Diabetes Heart disease Brother Colon cancer Daughter Diabetes Brother Stroke Social History (Updated 09/09/20 @ 18:42 by Norah Beebe PA-C) Smoking Status: Never smoker Second Hand Exposure: No; Hx Alcohol Use: No Hx Substance Use: No Preferred Language: Hebrew Communication Ability: Effective Sap Security Consultant Required: No Beliefs That Will Affect Care: None marital status: Current Living Situation Comment: lives with son Feels Safe at Home: Yes Assistive Devices: Walker Review of Systems Review of Systems: All systems reviewed & are unremarkable except as noted in HPI & below Physical Exam Physical Exam: Constitutional: Morbidly obese, female, vitals as above, NAD, sitting up in bed, pleasant, conversing easily Head: Normocephalic, Atraumatic Eyes: PERRL, conjunctivae normal, anicteric sclerae ENMT: external ear and nose normal, oropharynx normal Neck: trachea midline, no thyromegaly normal visual inspection Respiratory: Distant lung heart sounds secondary to body habitus, on O2 via NC, normal respiratory effort, lungs clear to auscultation, no wheeze, rales, rhonchi. Normal insp/exp effort, no accessory muscle use Cardiovascular: RRR, no murmur, no edema Vessels: no JVD or carotid bruit Chest: normal inspection of chest Abdomen: Obese abdomen, superficial erythema from the umbilicus distally to suprapubic region, warm to touch, blanchable, normal bowel sounds, soft, nontender, given body habitus unable to appreciate any hepatosplenomegaly Musculoskeletal: no cyanosis or clubbing, extremities motor strength 5/5 Skin: no rashes, warm and dry normal turgor Neurologic: PERRL, EOMI, accommodation nl, no face palsy, no dysarthria CN's II-XI intact bilaterally and moves all extremities Psychiatric: A+Ox3, euthymic affect : Normal per inspection Results & Data Results & Data ([facility]) Vital Signs (Past 12 Hours) Vital Signs Temp Pulse Resp BP Pulse Ox 09/09/20 18:30 65 19 125/76 99 09/09/20 18:01 25 H 119/83 100 09/09/20 18:00 23 100 09/09/20 17:30 64 16 123/66 100 09/09/20 17:00 66 17 122/69 100 09/09/20 16:30 63 15 120/69 100 09/09/20 16:01 65 14 127/55 L 100 09/09/20 16:00 63 16 100 09/09/20 15:30 64 14 140/87 100 09/09/20 15:00 66 17 122/55 L 100 09/09/20 14:38 66 18 110/53 L 09/09/20 14:00 67 14 110/59 L 100 09/09/20 13:53 36.7 C 64 18 119/64 100 Laboratory Results Short CBC 09/09/20 09/09/20 Range/Units 15:13 15:13 WBC 6.78 (4.8-10.8) K/uL Hgb 9.1 L (12.0-16.0) g/dL Hct 30.5 L (37-47) % Plt Count 217 (130-400) K/uL Creatinine 1.48 H (0.6-1.2) mg/dl Est GFR (Non-Af Amer) 34.8 BMP 09/09/20 15:13 Sodium 134 L Potassium 3.7 Chloride 94 L Carbon Dioxide 37 H BUN 13 Creatinine 1.48 H Glucose 132 H Calcium 9.3 Cardiac Enzymes 09/09/20 Range/Units 15:13 Troponin I < 0.015 (0-0.045) ng/ml Liver Function 09/09/20 Range/Units 15:13 Total Bilirubin 0.4 (0.2-1) mg/dl AST 15 (15-37) U/L ALT 14 (12-78) U/L Alkaline Phosphatase 61 (45-117) U/L Albumin 3.2 L (3.4-5.0) gm/dl Urine 09/09/20 Range/Units 14:53 Urine Color Yellow Urine Appearance Clear (Clear) Urine pH 5.0 (4.5-7.5) Ur Specific [place] 1.012 (1.000-1.030) Urine Protein Negative (Negative) Urine Glucose (UA) Negative (Negative) Diagnostic Findings CXR: IMPRESSION: No acute cardiopulmonary findings. No significant change in appearance of the chest. Head CT: IMPRESSION: There is no hemorrhage, mass effect, or evidence of acute territorial ischemia by CT criteria. Medications Administered Discontinued Medications Sodium Chloride (Nss) 500 mls @ 999 mls/hr IV .Q31M [id number] Stop: 09/09/20 14:45 Last Infusion: 09/09/20 15:08 Dose: 0 mls/hr Documented by: [id number] Admin: 09/09/20 14:37 Dose: 999 mls/hr Documented by: [id number] Sodium Chloride (Nss 1000ml) 500 mls @ 999 mls/hr IV .Q31M ONE Stop: 09/09/20 16:22 Last Infusion: 09/09/20 17:09 Dose: 0 mls/hr Documented by: [id number] Admin: 09/09/20 16:38 Dose: 999 mls/hr Documented by: [id number] ECG Rate (beats per minute): 63 Findings: + prolonged QT (474ms) Code Status & VTE Plan Code Status Full Code VTE Prophylaxis Plan VTE Prophylaxis will be ordered: No Supervising Physician Co-Signing Physician Notes Patient is a 75-year-old female with multiple comorbidities who was recently treated and discharged from [facility] for acute CHF, COPD exacerbation and abdominal cellulitis presents with history of generalized weakness and ambulatory dysfunction since 2 days duration. Patient also states having constipation. Complains of multiple problems but mostly chronic. Please review HPI for complete details of presentation. On exam patient is morbidly obese, no apparent distress, normocephalic atraumatic, lungs decreased breath sounds, clear to auscultation, S1-S2, no murmur, trace pedal edema, abdomen soft, erythema noted diffusely, nontender, grossly no focal neurologic deficits, alert, awake, oriented. Patient is admitted for management of generalized weakness, ambulatory dysfunction and ongoing abdominal wall cellulitis. Agree with starting doxycycline for now. No signs of sepsis. No signs of COPD exacerbation or CHF decompensation noted. Will hold diuretics for now given euvolemic state and slightly worsened renal function. Will resume diuretics as able. PT OT consulted. Will likely need SNF placement. Agree with holding metformin and utilize insulin therapy while hospitalized. Chronic anemia noted. Hemoglobin at baseline. Elevated serum TSH but normal free T4. Will likely need repeat thyroid function test done as outpatient. Monitor renal function. I personally reviewed the record. Patient is interviewed and examined at bedside. Patient's care is coordinated with Norah Beebe PA-C. Please refer to the documentation above for details of patient's presentation and for discussion of other issues. (1) Anemia Anemia type: unspecified type Qualified Code(s): D64.9 - Anemia, unspecified (2) COPD (chronic obstructive pulmonary disease) COPD type: unspecified COPD Qualified Code(s): J44.9 - Chronic obstructive pulmonary disease, unspecified (3) Fall Encounter type: initial encounter Qualified Code(s): W19.XXXA - Unspecified fall, initial encounter
--- NOTE | 2020-09-09 19:17 | CT Scan Report ---
CT SCAN OF THE BRAIN WITHOUT IV CONTRAST CLINICAL HISTORY: Fall. COMPARISON STUDY: CT of the brain dated 04/22/2014. TECHNIQUE: Unenhanced axial CT scan of the brain is performed from the vertex to the skull base. A do se lowering technique was utilized adhering to the principles of ALARA. Evaluation of the skull base is modestly degraded by motion artifact. CT DOSE: 2591.28 mGy.cm FINDINGS: Brain parenchyma: There are age-related involutional changes noting mild subcortical and periventric ular microangiopathic change. There is no hemorrhage, mass effect, or evidence of acute territorial i schemia by CT criteria. Calero-white matter differentiation is preserved. No extra-axial fluid collecti on is seen. Ventricles, sulci, cisterns: Prominent secondary to involutional change. Intracranial vasculature: There is mild atherosclerotic calcification of the cavernous carotid arteri es. Calvarium: The skeletal structures are osteopenic. No depressed calvarial fracture is identified. Sinuses and mastoids: There is evidence of previous paranasal sinus surgery. The visualized paranasal sinuses are clear. There are moderate bilateral mastoid effusions, left larger than right. Orbits: The bony orbits are grossly intact. There are bilateral ocular lens implants. IMPRESSION: There is no hemorrhage, mass effect, or evidence of acute territorial ischemia by CT shaynat kaylyn. ACT 112: Negative or not required by law. Electronically signed by: Erick Bourgeois M.D. 09/09/2020 7:16 PM
[2020-09-09] MEDS ORDERED: CARBOHYDRATES FOR HYPOGLYCEMIA PO PRN (20:28)
[2020-09-09] MEDS ORDERED: oxyCODONE HCL IR 5 MG TAB (IMMEDIATE RELEASE) PO PRN (20:28)
[2020-09-09] MEDS ORDERED: POLYETHYLENE (MIRALAX) 17 GM PACK PO PRN (20:28)
[2020-09-09] MEDS ORDERED: GLUCOSE 10 TABS/TUBE PO PRN (20:28)
[2020-09-09] MEDS ORDERED: ALBUTEROL 0.083% NEBU SOLN 3 ML VIAL INH PRN (20:28)
[2020-09-09] MEDS ORDERED: ALUMINUM/MAGNESIUM SUSP 30 ML UDC PO PRN (20:28)
[2020-09-09] MEDS ORDERED: DEXTROSE 50% 50 ML SYRINGE IV PRN (20:28)
[2020-09-09] MEDS ORDERED: BACLOFEN 10 MG TAB PO PRN (20:28)
[2020-09-09] MEDS ORDERED: GLUCAGON FOR INJ 1 MG VIAL SQ PRN (20:28)
[2020-09-09] MEDS ORDERED: GLUCOSE 40% GEL 15 GM TUBE PO PRN (20:28)
[2020-09-09] MEDS ORDERED: HYDROCORTISONE HC 2.5% CRM 30GM TUBE EXT PRN (20:28)
[2020-09-09] MEDS ORDERED: DOCUSATE SODIUM/SENNA 50/8.6MG TAB PO PRN (20:28)
[2020-09-09] MEDS ORDERED: MAGNESIUM HYDROXIDE SUSP 30 ML UDC PO PRN (20:28)
[2020-09-09] MEDS ORDERED: MECLIZINE HCL 25 MG TAB PO PRN (20:58)
[2020-09-09] MEDS ORDERED: RIVAROXABAN 15 MG TAB PO SCH (21:00)
[2020-09-09] MEDS: DOCUSATE SODIUM 100 MG CAP PO SCH (21:52)
[2020-09-09] MEDS: DOXYCYCLINE HYCLATE 100 MG CAP PO SCH (21:53)
[2020-09-09] MEDS: DOFETILIDE 125 MCG CAPSULE PO SCH (21:54)
[2020-09-09] MEDS: DOCUSATE SODIUM/SENNA 50/8.6MG TAB PO SCH (21:55)
[2020-09-09] MEDS: carvediloL 6.25 MG TAB PO SCH (21:55)
[2020-09-09] MEDS: INSULIN ASPART 100 UNITS/ML 3 ML PEN SC SCH (21:57)
[2020-09-09] MEDS: INSULIN GLARGINE SOLOSTAR 100 UNITS/ML 3 ML PEN SC SCH (21:58)
[2020-09-09] MEDS ORDERED: oxyCODONE HCL 15 MG TABCR (OxyCONTIN) PO SCH (22:00)
[2020-09-09] MEDS: OXYCONTIN 30 MG PO SCH (22:51)
[2020-09-10] MEDS: OXYCODONE 30 MG PO SCH ×2 (00:27→08:26)
[2020-09-10] MEDS: ACETAMINOPHEN 325 MG TAB PO PRN (01:23)
[2020-09-10] MEDS: LEVOTHYROXINE SODIUM 150 MCG TABLET PO SCH (06:22)
[2020-09-10] MEDS: ZINC SULFATE 220 MG CAPSULE PO SCH (06:23)
[2020-09-10 07:51] LABS: Basophils # (auto) 0.01 K/uL (0-0.2); Basophils % (auto) 0.2 %; Eosinophils # (auto) 0.31 K/uL (0-0.5); Eosinophils % (auto) 5.7 %; Hemoglobin 8.6 g/dL (12.0-16.0); Immature Granulocytes # (auto) 0.01 K/uL (0.00-0.02); Immature Granulocytes % (auto) 0.2 %; Lymphocytes # (auto) 1.66 K/uL (1.2-3.4); Lymphocytes % (auto) 30.6 %; Mean Corpuscular Hemoglobin 26.6 pg (25-34); Mean Corpuscular Hgb Conc 29.7 g/dL (32-36); Mean Corpuscular Volume 89.8 fL (80-100); Mean Platelet Volume 9.5 fL (7.4-10.4); Monocytes # (auto) 0.59 K/uL (0.11-0.59); Monocytes % (auto) 10.9 %; Neutrophils # (auto) 2.85 K/uL (1.4-6.5); Neutrophils % (auto) 52.4 %; Platelet Count 192 K/uL (130-400); RDW Coefficient of Variation 15.1 % (11.5-14.5); RDW Standard Deviation 49.5 fL (36.4-46.3); Red Blood Count 3.23 M/uL (4.2-5.4); White Blood Count 5.43 K/uL (4.8-10.8)
[2020-09-10] MEDS: ONDANSETRON INJ 2 MG/ML 2 ML VIAL IV PRN ×2 (08:02→17:17)
[2020-09-10] MEDS: PANTOprazole 40 MG TAB PO SCH (08:06)
[2020-09-10] MEDS: carvediloL 6.25 MG TAB PO SCH ×2 (08:06→20:17)
[2020-09-10] MEDS: DOCUSATE SODIUM 100 MG CAP PO SCH (08:06)
[2020-09-10] MEDS: MULTIVITAMIN TAB PO SCH (08:06)
[2020-09-10] MEDS: DOCUSATE SODIUM/SENNA 50/8.6MG TAB PO SCH ×2 (08:06→20:19)
[2020-09-10] MEDS: CYANOCOBALAMIN 500 MCG TABLET (VITAMIN B-12) PO SCH (08:06)
[2020-09-10] MEDS: DOXYCYCLINE HYCLATE 100 MG CAP PO SCH (08:07)
[2020-09-10] MEDS: CHOLECALCIFEROL 1,000 UNITS 25 MCG TAB PO SCH (08:07)
[2020-09-10] MEDS: POTASSIUM CHLORIDE 10 MEQ TABCR PO SCH (08:07)
[2020-09-10] MEDS: DOFETILIDE 125 MCG CAPSULE PO SCH ×2 (08:07→20:20)
[2020-09-10] MEDS: INSULIN GLARGINE SOLOSTAR 100 UNITS/ML 3 ML PEN SC SCH ×2 (08:08→20:28)
[2020-09-10] MEDS: INSULIN ASPART 100 UNITS/ML 3 ML PEN SC SCH ×4 (08:09→20:28)
[2020-09-10 08:17] LABS: Albumin Level 2.9 gm/dl (3.4-5.0); BUN Creatinine Ratio 9.3 (10-20); Calcium 9.2 mg/dl (8.5-10.1); Creatinine Clr Calc Pharmacy 51.3 ml/min; Est GFR (African American) 45.4; Est GFR (Non-African American) 39.2; Magnesium 1.9 mg/dl (1.8-2.4); Potassium 3.6 mmol/L (3.5-5.1)
[2020-09-10 08:21] LABS: Albumin Globulin Ratio 0.9 (0.9-2); Bilirubin,Total 0.4 mg/dl (0.2-1); Globulin 3.4 gm/dl (2.5-4.0); Total Protein 6.3 gm/dl (6.4-8.2)
[2020-09-10] MEDS: OXYCONTIN 30 MG PO SCH (08:25)
--- NOTE | 2020-09-10 09:02 | XRay Report ---
KUB HISTORY: constipation COMPARISON: Abdomen and pelvis CT 08/28/2020. FINDINGS: The bowel gas pattern is unremarkable. There are no dilated loops of small bowel to suggest an obstruction. No renal calculi. No ureteral calculi. Calcifications in the deep pelvis likely rep resent phleboliths. Prior cholecystectomy. Moderate well-formed stool seen within the distal colon. N o pneumoperitoneum or pneumatosis. IMPRESSION: Moderate well-formed stool seen within the distal colon. No evidence for bowel obstruction. ACT 112: Negative or not required by law. Electronically signed by: Ted Mccullough M.D. 09/10/2020 9:00 AM
--- NOTE | 2020-09-10 16:37 | Hospitalist Progress Note ---
Date of Service September 10, 2020 Assessment & Plan (1) Weakness: generalized 2/2 physical deconditioning and obesity. Possibly polypharmacy contributing. PT/OT evaluations pending. Disposition based on their recommendations. (2) Fall: No apparent sequelae of fall. (3) Ambulatory dysfunction: per PT/OT as above. (4) Cellulitis of abdominal wall: recently completed abx course and I do not agree that she needs abx at this time. Doxycycline was stopped. (5) Chronic diastolic heart failure: Chronic, stable. Euvolemic on exam. (6) Chronic respiratory failure with hypoxia: She is at her baseline oxyen needs. (7) COPD (chronic obstructive pulmonary disease): chronic, stable. No evidence of acute exacerbation. (8) DM type 2 (diabetes mellitus, type 2): uncontrolled as outpatient. Hold Metformin, utilize insulin while hospitalized. (9) CKD (chronic kidney disease), stage III: At baseline. Cont current medications. (10) Paroxysmal atrial fibrillation: Chronic, stable, Rate and rhythm controlled, Continue Tikosyn, Coreg and Xarelto (11) Anemia: chronic, around her baseline. Likely 2/2 to multiple co morbidities including renal disease, chf, copd, chronic anticoagulation (12) Chronic pain syndrome: 2/2 to Osteoarthritis and morbid obesity on Oxycontin 30mg Q12hr and and oxycodone 10mg q4h prn confirmed via PDMP She has significant constipation so as interested in switching to Nucynta. (13) Morbid obesity: BMI 48.3 encourage lifestyle and diet modifications (14) DVT prophylaxis: Xarelto Full Dispo-awaiting PT/OT evaluations and recs. Carli Meek DO [facility] Hospitalist Admission and Anticipated Discharge Date Admission Date: September 09, 2020 Subjective cc: weakness and ambulatory dysfunction at home Pt was recently admitted and went home but was subsequently too weak to remain there alone She is here for a repeat PT/OT evaluation and consideration for rehab placement However, she reports to me that she is not interested in going to rehab at all She is constipated x 3 days We discussed Nucynta as an option to control her pain and she agreed. She reports that her abdominal skin doesn't look worse just never looked better. Review of Systems Review of Systems: All systems reviewed & are unremarkable except as noted in Subjective Physical Exam Physical Exam: CONSTITUTIONAL: obese, vitals as above, generally well- appearing EYES: normal conjunctivae, no scleral icterus ENT: external ear and nose normal, oropharynx clear, MMM RESPIRATORY: clear to auscultation bilaterally, no crackles, rales or wheezes, normal respiratory effort CARDIOVASCULAR: regular rate and rhythm, S1 and 2 heard without murmurs, gallops or rubs, no JVD, no peripheral edema GASTROINTESTINAL: soft, protuberant, nontender, no guarding MUSCULOSKELETAL: strength 5/5 throughout, head is normocephalic and atraumatic SKIN: warm and dry NEUROLOGIC: CN 2-12 grossly intact, normal cognition, normal speech, no gross focal deficits. PSYCHIATRIC: alert cooperative and oriented to person, place and time. Results & Data Results & Data ([facility]) Vital Signs (Past 12 Hours) Vital Signs Temp Pulse Pulse Resp BP Pulse Ox 09/10/20 15:09 36.4 C L 64 18 152/55 H 99 09/10/20 07:29 36.7 C 62 20 115/63 90 09/10/20 07:23 67 Laboratory Results Short CBC 09/10/20 Range/Units 07:32 WBC 5.43 (4.8-10.8) K/uL Hgb 8.6 L (12.0-16.0) g/dL Hct 29.0 L (37-47) % Plt Count 192 (130-400) K/uL BMP 09/10/20 07:32 Sodium 136 Potassium 3.6 Chloride 95 L Carbon Dioxide 38 H BUN 13 Creatinine 1.34 H Glucose 113 H Calcium 9.2 Liver Function 09/10/20 Range/Units 07:32 Total Bilirubin 0.4 (0.2-1) mg/dl AST 14 L (15-37) U/L ALT 12 (12-78) U/L Alkaline Phosphatase 56 (45-117) U/L Albumin 2.9 L (3.4-5.0) gm/dl Medications Administered Current Inpatient Medications Acetaminophen (Acetaminophen 325 Mg Tab) 650 mg PO Q4H PRN PRN Reason: Pain or Fever Stop: 10/09/20 20:27 Last Admin: 09/10/20 01:23 Dose: 650 mg Documented by: Al Hydrox/Mg Hydrox/Simethicone (Aluminum/Magnesium Susp 30 Ml Udc) 15 ml PO Q4H PRN PRN Reason: Dyspepsia Stop: 12/20/20 20:27 Albuterol (Albuterol 0.083% Nebu Soln 3 Ml Vial) 2.5 mg INH Q4R PRN PRN Reason: Shortness Of Breath Or Wheezing Stop: 10/09/20 20:27 Albuterol (Albuterol Hfa 8 Gm Inhaler) 2 puffs INH Q6R PRN PRN Reason: Shortness Of Breath Or Wheezin Stop: 10/09/20 20:27 Baclofen (Baclofen 10 Mg Tab) 5 mg PO BID PRN PRN Reason: Muscle Spasm Stop: 10/09/20 20:27 Carvedilol (Carvedilol 6.25 Mg Tab) 6.25 mg PO BID [facility] Stop: 10/09/20 20:59 Last Admin: 09/10/20 08:06 Dose: 6.25 mg Documented by: Cyanocobalamin (Cyanocobalamin 500 Mcg Tablet (Vitamin B-12)) 500 mcg PO QAM [facility] Stop: 10/10/20 08:59 Last Admin: 09/10/20 08:06 Dose: 500 mcg Documented by: Dextrose (Dextrose 50% 50 Ml Syringe) 25 - 50 ml IV UD PRN; Protocol PRN Reason: Hypoglycemia Protocol Stop: 10/09/20 20:27 Docusate Sodium (Docusate Sodium 100 Mg Cap) 100 mg PO BID [facility] Stop: 10/09/20 20:59 Last Admin: 09/10/20 08:06 Dose: 100 mg Documented by: Dofetilide (Dofetilide 125 Mcg Capsule) 250 mcg PO Q12 [facility] Stop: 10/09/20 20:59 Last Admin: 09/10/20 08:07 Dose: 250 mcg Documented by: Doxycycline Hyclate (Doxycycline Hyclate 100 Mg Cap) 100 mg PO BID [facility] Stop: 09/16/20 20:59 Last Admin: 09/10/20 08:07 Dose: 100 mg Documented by: Estrogens Conjugated (Premarin Vag Crm 14 Appln/30 Gm Tube) 1 appln PV MoWeFr@0900 [facility] Stop: 10/12/20 08:59 Glucagon (Glucagon For Inj 1 Mg Vial) 1 mg SQ UD PRN; Protocol PRN Reason: Hypoglycemia Protocol Stop: 10/09/20 20:27 Glucose (Glucose 10 Tabs/Tube) 4 - 8 tabs PO UD PRN; Protocol PRN Reason: Hypoglycemia Protocol Stop: 10/09/20 20:27 Glucose (Glucose 40% Gel 15 Gm Tube) 15 - 30 gm PO UD PRN; Protocol PRN Reason: Hypoglycemia Protocol Stop: 10/09/20 20:27 Hydrocortisone (Hydrocortisone Hc 2.5% Crm 30gm Tube) 1 appln EXT BID PRN PRN Reason: hemorrhoids Stop: 10/09/20 20:27 Insulin Aspart (Insulin Aspart 100 Units/Ml 3 Ml Pen) 0 units SC ACHS [facility] Stop: 10/09/20 20:59 Last Admin: 09/10/20 12:19 Dose: 5 units Documented by: Insulin Glargine (Insulin Glargine Solostar 100 Units/Ml 3 Ml Pen) 0 - 8 units SC BID [facility]; Protocol Stop: 10/09/20 20:59 Last Admin: 09/10/20 08:08 Dose: 4 units Documented by: Levothyroxine Sodium (Levothyroxine Sodium 150 Mcg Tablet) 150 mcg PO DAILYBB [facility] Stop: 10/10/20 06:29 Last Admin: 09/10/20 06:22 Dose: 150 mcg Documented by: Magnesium Hydroxide (Magnesium Hydroxide Susp 30 Ml Udc) 30 ml PO Q12H PRN PRN Reason: Constipation Stop: 10/09/20 20:27 Meclizine HCl (Meclizine Hcl 25 Mg Tab) 25 mg PO Q8H PRN PRN Reason: DIZZINESS Stop: 10/09/20 20:57 Miscellaneous (Carbohydrates For Hypoglycemia ) 15 - 30 gm PO UD PRN PRN Reason: Hypoglycemia Protocol Stop: 10/09/20 20:27 Multivitamins (Multivitamin Tab) 1 tab PO QAM [facility] Stop: 10/10/20 08:59 Last Admin: 09/10/20 08:06 Dose: 1 tab Documented by: *Oxycontin 30 Mg* Patient's Own Controlled Med 1 ea PO Q12 [facility] Stop: 09/23/20 21:59 Last Admin: 09/10/20 08:26 Dose: Not Given Documented by: *Oxycontin 30 Mg*Non -Formulary Patient's Own Med 1 ea PO Q12 [facility] Stop: 09/23/20 21:59 Last Admin: 09/10/20 08:25 Dose: 30 mg Documented by: Ondansetron HCl (Ondansetron Inj 2 Mg/Ml 2 Ml Vial) 4 mg IV Q6H PRN PRN Reason: Nausea Stop: 10/09/20 20:27 Last Admin: 09/10/20 08:02 Dose: 4 mg Documented by: Oxycodone HCl (Oxycodone Hcl Ir 5 Mg Tab (Immediate Release)) 10 mg PO Q4H PRN PRN Reason: Pain Stop: 09/23/20 20:27 Pantoprazole Sodium (Pantoprazole 40 Mg Tab) 40 mg PO [facility] Stop: 10/10/20 08:59 Last Admin: 09/10/20 08:06 Dose: 40 mg Documented by: Polyethylene Glycol (Polyethylene (Miralax) 17 Gm Pack) 17 gm PO DAILY PRN PRN Reason: Constipation Stop: 10/09/20 20:27 Potassium Chloride (Potassium Chloride 10 Meq Tabcr) 10 meq PO [facility] Stop: 10/10/20 08:59 Last Admin: 09/10/20 08:07 Dose: 10 meq Documented by: Rivaroxaban (Rivaroxaban 20 Mg Tab) 20 mg PO PM [facility] Stop: 10/10/20 20:59 Senna/Docusate Sodium (Docusate Sodium/Senna 50/8.6mg Tab) 1 tab PO BID PRN PRN Reason: Constipation Stop: 10/09/20 20:27 Senna/Docusate Sodium (Docusate Sodium/Senna 50/8.6mg Tab) 1 tab PO BID [facility] Stop: 10/09/20 20:59 Last Admin: 09/10/20 08:06 Dose: 1 tab Documented by: Spironolactone (Spironolactone 12.5 Mg Tab) 12.5 mg PO MoWeFr@0900 [facility] Stop: 10/12/20 08:59 Vitamin D (Cholecalciferol 1,000 Units 25 Mcg Tab) 1,000 units PO [facility] Stop: 10/10/20 08:59 Last Admin: 09/10/20 08:07 Dose: 1,000 units Documented by: Zinc Sulfate (Zinc Sulfate 220 Mg Capsule) 220 mg PO DAILY@0700 [facility] Stop: 10/10/20 06:59 Last Admin: 09/10/20 06:23 Dose: 220 mg Documented by: (1) Anemia Anemia type: unspecified type Qualified Code(s): D64.9 - Anemia, unspecified (2) COPD (chronic obstructive pulmonary disease) COPD type: unspecified COPD Qualified Code(s): J44.9 - Chronic obstructive pulmonary disease, unspecified (3) Fall Encounter type: initial encounter Qualified Code(s): W19.XXXA - Unspecified fall, initial encounter
[2020-09-10] MEDS ORDERED: hydrOXYzine HCl 10 MG TAB PO PRN (18:59)
[2020-09-10] MEDS: TAPENTADOL HCL 50 MG TAB PO PRN (20:18)
[2020-09-10] MEDS: RIVAROXABAN 20 MG TAB PO SCH (20:26)
[2020-09-10] MEDS: TAPENTADOL HCL ER 50 MG TABCR PO SCH (22:13)
[2020-09-11] MEDS: ZINC SULFATE 220 MG CAPSULE PO SCH (05:26)
[2020-09-11] MEDS: LEVOTHYROXINE SODIUM 150 MCG TABLET PO SCH (05:27)
[2020-09-11] MEDS: ONDANSETRON INJ 2 MG/ML 2 ML VIAL IV PRN ×2 (07:48→17:06)
[2020-09-11] MEDS: PANTOprazole 40 MG TAB PO SCH (08:58)
[2020-09-11] MEDS: CHOLECALCIFEROL 1,000 UNITS 25 MCG TAB PO SCH (08:58)
[2020-09-11] MEDS: carvediloL 6.25 MG TAB PO SCH ×2 (08:58→20:29)
[2020-09-11] MEDS: DOFETILIDE 125 MCG CAPSULE PO SCH ×2 (08:59→20:32)
[2020-09-11] MEDS: CYANOCOBALAMIN 500 MCG TABLET (VITAMIN B-12) PO SCH (08:59)
[2020-09-11] MEDS: DOCUSATE SODIUM/SENNA 50/8.6MG TAB PO SCH ×2 (08:59→20:32)
[2020-09-11] MEDS: MULTIVITAMIN TAB PO SCH (08:59)
[2020-09-11] MEDS: POTASSIUM CHLORIDE 10 MEQ TABCR PO SCH (08:59)
[2020-09-11] MEDS: INSULIN GLARGINE SOLOSTAR 100 UNITS/ML 3 ML PEN SC SCH ×2 (08:59→21:08)
[2020-09-11] MEDS: INSULIN ASPART 100 UNITS/ML 3 ML PEN SC SCH ×4 (09:00→21:09)
[2020-09-11] MEDS: TAPENTADOL HCL 50 MG TAB PO PRN (09:01)
[2020-09-11] MEDS: TAPENTADOL HCL ER 50 MG TABCR PO SCH ×2 (09:04→20:31)
[2020-09-11] MEDS: POLYETHYLENE (MIRALAX) 17 GM PACK PO SCH ×2 (11:31→17:06)
--- NOTE | 2020-09-11 15:01 | Hospitalist Progress Note ---
Date of Service September 11, 2020 Assessment & Plan (1) Weakness: generalized 2/2 physical deconditioning and obesity. Possibly polypharmacy contributing. PT/OT evals performed and she was able to return home with someone who can be there with her. She is uncomfortable going home at this time for her reasons and son is currently working per her report. Will work with family and CM on disposition tomorrow. (2) Fall: No apparent sequelae of fall. Plan as above. (3) Ambulatory dysfunction: per PT/OT as above. (4) Chronic diastolic heart failure: Chronic, stable. Euvolemic on exam. (5) Chronic respiratory failure with hypoxia: She is at her baseline oxyen needs. (6) COPD (chronic obstructive pulmonary disease): chronic, stable. No evidence of acute exacerbation. (7) DM type 2 (diabetes mellitus, type 2): uncontrolled as outpatient. Hold Metformin, utilize insulin while hospitalized. (8) CKD (chronic kidney disease), stage III: At baseline. Cont current medications. (9) Paroxysmal atrial fibrillation: Chronic, stable, Rate and rhythm controlled, Continue Tikosyn, Coreg and Xarelto (10) Anemia: chronic, around her baseline. Likely 2/2 to multiple co morbidities including renal disease, chf, copd, chronic anticoagulation (11) Chronic pain syndrome: 2/2 OA in setting of morbid obesity. Switched oxycodone to Nucynta without issue overnight. (12) Morbid obesity: BMI 48.3 encourage lifestyle and diet modifications (13) DVT prophylaxis: Xarelto Full Dispo-awaiting PT/OT evaluations and recs. Carli Meek DO [facility] Hospitalist Admission and Anticipated Discharge Date Admission Date: September 10, 2020 Subjective cc: weakness and fall at home +nausea and one episode of vomiting patient notably ate almost entire tray for 3 meals today including recently at dinner and drank a soda with 2 empty coffee cups on the tray she reports some abdominal pain she just ate dinner she is lying flat in bed on her back KUB was normal Nucynta was successful in controlling her pain overnight and she didn't react to it she used 1 breakthrough pill today PT said OK to go home but she doesn't feel well enought to and said something about her son not being able to get her from the hospital she went on to start talking about some other issues that were not acute reasons to be in the hospital, but states that she feels better today from a weakness standpoint. Review of Systems Review of Systems: All systems reviewed & are unremarkable except as noted in Subjective Physical Exam Physical Exam: CONSTITUTIONAL: obese, vitals as above, generally well- appearing EYES: normal conjunctivae, no scleral icterus ENT: external ear and nose normal, oropharynx clear, MMM RESPIRATORY: clear to auscultation bilaterally, no crackles, rales or wheezes, normal respiratory effort CARDIOVASCULAR: regular rate and rhythm, S1 and 2 heard without murmurs, gal lops or rubs, no JVD, no peripheral edema GASTROINTESTINAL: soft, protuberant, nontender, no guarding MUSCULOSKELETAL: strength 5/5 throughout, head is normocephalic and atraumatic SKIN: warm and dry NEUROLOGIC: CN 2-12 grossly intact, normal cognition, normal speech, no gross focal deficits. PSYCHIATRIC: alert cooperative and oriented to person, place and time. Results & Data Results & Data ([facility]) Vital Signs (Past 12 Hours) Vital Signs Temp Pulse Pulse Resp BP Pulse Ox 09/11/20 12:36 36.8 C 60 20 110/66 97 09/11/20 07:47 36.8 C 69 18 114/66 98 09/11/20 07:31 63 09/11/20 04:00 36.4 C L 80 18 177/73 H 100 Medications Administered Current Inpatient Medications Acetaminophen (Acetaminophen 325 Mg Tab) 650 mg PO Q4H PRN PRN Reason: Pain or Fever Stop: 10/09/20 20:27 Last Admin: 09/10/20 01:23 Dose: 650 mg Documented by: Al Hydrox/Mg Hydrox/Simethicone (Aluminum/Magnesium Susp 30 Ml Udc) 15 ml PO Q4H PRN PRN Reason: Dyspepsia Stop: 10/09/20 20:27 Albuterol (Albuterol 0.083% Nebu Soln 3 Ml Vial) 2.5 mg INH Q4R PRN PRN Reason: Shortness Of Breath Or Wheezing Stop: 10/09/20 20:27 Albuterol (Albuterol Hfa 8 Gm Inhaler) 2 puffs INH Q6R PRN PRN Reason: Shortness Of Breath Or Wheezin Stop: 10/09/20 20:27 Baclofen (Baclofen 10 Mg Tab) 5 mg PO BID PRN PRN Reason: Muscle Spasm Stop: 10/09/20 20:27 Carvedilol (Carvedilol 6.25 Mg Tab) 6.25 mg PO BID [facility] Stop: 10/09/20 20:59 Last Admin: 09/11/20 08:58 Dose: 6.25 mg Documented by: Cyanocobalamin (Cyanocobalamin 500 Mcg Tablet (Vitamin B-12)) 500 mcg PO QAM [facility] Stop: 10/10/20 08:59 Last Admin: 09/11/20 08:59 Dose: 500 mcg Documented by: Dextrose (Dextrose 50% 50 Ml Syringe) 25 - 50 ml IV UD PRN; Protocol PRN Reason: Hypoglycemia Protocol Stop: 10/09/20 20:27 Dofetilide (Dofetilide 125 Mcg Capsule) 250 mcg PO Q12 [facility] Stop: 10/09/20 20:59 Last Admin: 09/11/20 08:59 Dose: 250 mcg Documented by: Estrogens Conjugated (Premarin Vag Crm 14 Appln/30 Gm Tube) 1 appln PV MoWeFr@0900 [facility] Stop: 10/12/20 08:59 Glucagon (Glucagon For Inj 1 Mg Vial) 1 mg SQ UD PRN; Protocol PRN Reason: Hypoglycemia Protocol Stop: 10/09/20 20:27 Glucose (Glucose 10 Tabs/Tube) 4 - 8 tabs PO UD PRN; Protocol PRN Reason: Hypoglycemia Protocol Stop: 10/09/20 20:27 Glucose (Glucose 40% Gel 15 Gm Tube) 15 - 30 gm PO UD PRN; Protocol PRN Reason: Hypoglycemia Protocol Stop: 10/09/20 20:27 Hydrocortisone (Hydrocortisone Hc 2.5% Crm 30gm Tube) 1 appln EXT BID PRN PRN Reason: hemorrhoids Stop: 10/09/20 20:27 Hydroxyzine HCl (Hydroxyzine Hcl 10 Mg Tab) 10 mg PO Q12H PRN PRN Reason: Itching Stop: 10/10/20 18:58 Insulin Aspart (Insulin Aspart 100 Units/Ml 3 Ml Pen) 0 units SC ACHS [facility] Stop: 10/09/20 20:59 Last Admin: 09/11/20 12:19 Dose: 3 units Documented by: Insulin Glargine (Insulin Glargine Solostar 100 Units/Ml 3 Ml Pen) 0 - 8 units SC BID [facility]; Protocol Stop: 12/20/20 20:59 Last Admin: 09/11/20 08:59 Dose: 4 units Documented by: Levothyroxine Sodium (Levothyroxine Sodium 150 Mcg Tablet) 150 mcg PO DAILYBB [facility] Stop: 10/10/20 06:29 Last Admin: 09/11/20 05:27 Dose: 150 mcg Documented by: Magnesium Hydroxide (Magnesium Hydroxide Susp 30 Ml Udc) 30 ml PO Q12H PRN PRN Reason: Constipation Stop: 10/09/20 20:27 Meclizine HCl (Meclizine Hcl 25 Mg Tab) 25 mg PO Q8H PRN PRN Reason: DIZZINESS Stop: 10/09/20 20:57 Miscellaneous (Carbohydrates For Hypoglycemia ) 15 - 30 gm PO UD PRN PRN Reason: Hypoglycemia Protocol Stop: 10/09/20 20:27 [facility]ivitamins ([facility]amin Tab) [facility] Stop: 10/10/20 08:59 Last Admin: 09/11/20 08:59 Dose: 1 tab Documented by: Ondansetron HCl (Ondansetron Inj 2 Mg/Ml 2 Ml Vial) 4 mg IV Q6H PRN PRN Reason: Nausea Stop: 10/09/20 20:27 Last Admin: 09/11/20 07:48 Dose: 4 mg Documented by: Pantoprazole Sodium (Pantoprazole 40 Mg Tab) 40 mg PO QAM [facility] Stop: 10/10/20 08:59 Last Admin: 09/11/20 08:58 Dose: 40 mg Documented by: Polyethylene Glycol (Polyethylene (Miralax) 17 Gm Pack) 17 gm PO Q6H [facility] Stop: 10/11/20 11:29 Last Admin: 09/11/20 11:31 Dose: 17 gm Documented by: Potassium Chloride (Potassium Chloride 10 Meq Tabcr) 10 meq PO QAM [facility] Stop: 10/10/20 08:59 Last Admin: 09/11/20 08:59 Dose: 10 meq Documented by: Rivaroxaban (Rivaroxaban 20 Mg Tab) 20 mg PO PM [facility] Stop: 10/10/20 20:59 Last Admin: 09/10/20 20:26 Dose: 20 mg Documented by: Senna/Docusate Sodium (Docusate Sodium/Senna 50/8.6mg Tab) 1 tab PO BID [facility] Stop: 10/09/20 20:59 Last Admin: 09/11/20 08:59 Dose: 1 tab Documented by: Spironolactone (Spironolactone 12.5 Mg Tab) 12.5 mg PO MoWeFr@0900 [facility] Stop: 10/12/20 08:59 Tapentadol (Tapentadol Hcl Er 50 Mg Tabcr) 50 mg PO Q12 [facility] Stop: 09/24/20 20:59 Last Admin: 09/11/20 09:04 Dose: 50 mg Documented by: Tapentadol (Tapentadol Hcl 50 Mg Tab) 50 mg PO Q6H PRN PRN Reason: breakthrough pain Stop: 09/24/20 18:58 Last Admin: 09/11/20 09:01 Dose: 50 mg Documented by: Vitamin D (Cholecalciferol 1,000 Units 25 Mcg Tab) 1,000 units PO QAM [facility] Stop: 10/10/20 08:59 Last Admin: 09/11/20 08:58 Dose: 1,000 units Documented by: Zinc Sulfate (Zinc Sulfate 220 Mg Capsule) 220 mg PO DAILY@0700 [facility] Stop: 10/10/20 06:59 Last Admin: 09/11/20 05:26 Dose: 220 mg Documented by: (1) Anemia Anemia type: unspecified type Qualified Code(s): D64.9 - Anemia, unspecified (2) COPD (chronic obstructive pulmonary disease) COPD type: unspecified COPD Qualified Code(s): J44.9 - Chronic obstructive pulmonary disease, unspecified (3) Fall Encounter type: initial encounter Qualified Code(s): W19.XXXA - Unspecified fall, initial encounter
--- NOTE | 2020-09-11 18:55 | XRay Report ---
XR KUB/Abdomen 1 view CLINICAL HISTORY: nausea +opiate use, r/o ileus COMPARISON STUDY: 09/09/2020 FINDINGS: There is gas present within nondilated small bowel and colonic loops. There are no transiti on zones indicate bowel obstruction. There are surgical clips in the right upper quadrant consistent with a prior cholecystectomy. IMPRESSION: Nonobstructive bowel gas pattern. ACT 112: Negative or not required by law. Electronically signed by: Edwin Licona M.D. 09/11/2020 6:53 PM
[2020-09-11] MEDS: RIVAROXABAN 20 MG TAB PO SCH (20:32)
[2020-09-11] MEDS: ALBUTEROL HFA 8 GM INHALER INH PRN (20:55)
[2020-09-11] MEDS: ACETAMINOPHEN 325 MG TAB PO PRN (21:55)
[2020-09-12] MEDS: POLYETHYLENE (MIRALAX) 17 GM PACK PO SCH ×4 (00:04→18:16)
[2020-09-12] MEDS: ALBUTEROL HFA 8 GM INHALER INH PRN ×2 (06:11→12:15)
[2020-09-12] MEDS: ZINC SULFATE 220 MG CAPSULE PO SCH (06:28)
[2020-09-12] MEDS: LEVOTHYROXINE SODIUM 150 MCG TABLET PO SCH (06:28)
[2020-09-12] MEDS: TAPENTADOL HCL ER 50 MG TABCR PO SCH (08:42)
[2020-09-12] MEDS: carvediloL 6.25 MG TAB PO SCH (08:43)
[2020-09-12] MEDS: MULTIVITAMIN TAB PO SCH (08:44)
[2020-09-12] MEDS: POTASSIUM CHLORIDE 10 MEQ TABCR PO SCH (08:44)
[2020-09-12] MEDS: CYANOCOBALAMIN 500 MCG TABLET (VITAMIN B-12) PO SCH (08:45)
[2020-09-12] MEDS: PANTOprazole 40 MG TAB PO SCH (08:45)
[2020-09-12] MEDS: CHOLECALCIFEROL 1,000 UNITS 25 MCG TAB PO SCH (08:45)
[2020-09-12] MEDS: DOCUSATE SODIUM/SENNA 50/8.6MG TAB PO SCH (08:45)
[2020-09-12] MEDS: DOFETILIDE 125 MCG CAPSULE PO SCH (08:45)
[2020-09-12] MEDS: INSULIN ASPART 100 UNITS/ML 3 ML PEN SC SCH ×3 (08:49→18:09)
[2020-09-12] MEDS: INSULIN GLARGINE SOLOSTAR 100 UNITS/ML 3 ML PEN SC SCH (08:49)
[2020-09-12] MEDS ORDERED: TORSEMIDE 10 MG TAB PO SCH (09:00)
[2020-09-12] MEDS ORDERED: PREMARIN VAG CRM 14 APPLN/30 GM TUBE PV SCH (09:00)
[2020-09-12] MEDS ORDERED: SPIRONOLACTONE 12.5 MG TAB PO SCH ×3 (09:00)
[2020-09-12] MEDS: ONDANSETRON INJ 2 MG/ML 2 ML VIAL IV PRN (12:10)
--- NOTE | 2020-09-12 16:08 | Discharge Summary ---
Date of Service September 12, 2020 Admission HPI Per Admitting Provider This is a 75-year-old female who has significant past medical history of chronic hypoxemic respiratory failure, chronic diastolic CHF, COPD, T2DM, HTN, HLD, ZEYAD, PAF anticoagulated on Xarelto, anemia of chronic disease, chronic cor pulmonale morbid obesity, CKD stage III, history of TIA who presents to ED secondary to weakness x2 days. Of significance patient hospitalized 08/28-09/06 secondary to acute on chronic respiratory failure due to acute on chronic diastolic CHF. She also had abdominal wall cellulitis at that time. She was treated with IV diuresis and transition to oral torsemide and Aldactone. Abdominal cellulitis treated with antibiotics. She was initially admitted from [facility], but was discharged to home. She presents from home secondary to feeling weak for the past 2 days and inability to ambulate. She states today she fell forward onto abdomen after her legs gave out. She is felt weak with walking since discharge. She chronically has BALBUENA but feels it is worse. She is unsure if her legs are more swollen. She has been taking her diuretics as prescribed, but has not been following fluid restriction. She denies any fever, chills, sweats, lightheadedness, dizziness or presyncope symptoms, chest pain, palpitations, shortness with at rest, cough, hemoptysis, current nausea/current vomiting, diarrhea, dysuria or hematuria. She states her last bowel movement was 3 days ago. She has been having intermittent episodes of constipation. During her last hospitalization she required subcu injection of medication to help stimulate bowels. She also required enema. She states she does not move her bowels regularly. She offers suffers from prolapsed bladder and had difficulty urinating yesterday. When she bent over to reduce her prolapse she became more short of breath. She feels she is been eating and drinking less since discharge. Overall less mobile. In ED patient remained hemodynamically stable. She was saturating 99% on 3 L, which is normal for her Lab work notable for H&H 9.1 and 30.5, platelet 217, sodium 134, chloride 94, CO2 37, BUN 13, creatinine 1.48, glucose 132, proBNP 850, TSH 4.8, free T4 1.15. Urinalysis negative. Covid screening negative. She received 500 mL IVF bolus and additional 500 of IVF. It was felt patient may have been over diuresed during previous admission and mild acute renal insufficiency could be contributing to weakness. Admission Exam Per Admitting Provider Constitutional: Morbidly obese, female, vitals as above, NAD, sitting up in bed, pleasant, conversing easily Head: Normocephalic, Atraumatic Eyes: PERRL, conjunctivae normal, anicteric sclerae ENMT: external ear and nose normal, oropharynx normal Neck: trachea midline, no thyromegaly normal visual inspection Respiratory: Distant lung heart sounds secondary to body habitus, on O2 via NC, normal respiratory effort, lungs clear to auscultation, no wheeze, rales, rhonchi. Normal insp/exp effort, no accessory muscle use Cardiovascular: RRR, no murmur, no edema Vessels: no JVD or carotid bruit Chest: normal inspection of chest Abdomen: Obese abdomen, superficial erythema from the umbilicus distally to suprapubic region, warm to touch, blanchable, normal bowel sounds, soft, nontender, given body habitus unable to appreciate any hepatosplenomegaly Musculoskeletal: no cyanosis or clubbing, extremities motor strength 5/5 Skin: no rashes, warm and dry normal turgor Neurologic: PERRL, EOMI, accommodation nl, no face palsy, no dysarthria CN's II-XI intact bilaterally and moves all extremities Psychiatric: A+Ox3, euthymic affect : Normal per inspection Principal Diagnosis generalized weakness Ambulatory dysfunction Discharge Exam CONSTITUTIONAL: obese, vitals as above, generally well-appearing EYES: normal conjunctivae, no scleral icterus ENT: external ear and nose normal, oropharynx clear, MMM RESPIRATORY: clear to auscultation bilaterally, no crackles, rales or wheezes, normal respiratory effort CARDIOVASCULAR: regular rate and rhythm, S1 and 2 heard without murmurs, gallops or rubs, no JVD, no peripheral edema GASTROINTESTINAL: soft, protuberant, nontender, no guarding MUSCULOSKELETAL: strength 5/5 throughout, head is normocephalic and atraumatic SKIN: warm and dry NEUROLOGIC: CN 2-12 grossly intact, normal cognition, normal speech, no gross focal deficits. PSYCHIATRIC: alert cooperative and oriented to person, place and time. Discharge Data Allergies Allergy/AdvReac Type Severity Reaction Status Date / Time arformoterol Allergy Severe TACHYCARDIA Verified 09/09/20 18:27 aspirin Allergy Severe HIVES, SOB Verified 09/09/20 18:27 ciprofloxacin Allergy Severe Unknown Verified 09/09/20 18:27 clarithromycin [From Biaxin] Allergy Severe Unknown Verified 09/09/20 18:27 Iodinated Contrast Media Allergy Severe "CAUSED Verified 09/09/20 18:27 ASTHMA ATTACK" metaproterenol [From Alupent] Allergy Severe Unknown Verified 09/09/20 18:27 metformin [From Riomet] Allergy Severe Unknown Verified 09/09/20 18:27 NSAIDS (Non-Steroidal Allergy Severe Hives Verified 09/09/20 18:27 Anti-Inflamma Penicillins Allergy Severe SOB, HIVES Verified 09/09/20 18:27 pioglitazone [From Actos] Allergy Severe Unknown Verified 09/09/20 18:27 sotalol Allergy Severe increased Verified 09/09/20 18:27 breathing problems Sulfa (Sulfonamide Allergy Severe Anaphylaxis Verified 09/09/20 18:27 Antibiotics) tiotropium Allergy Severe Unknown Verified 09/09/20 18:27 [From Spiriva with HandiHaler] aspartame Allergy Intermediate HIVES, Verified 09/09/20 18:27 ITCHY chlorhexidine Allergy Intermediate BLISTERY Verified 09/09/20 18:27 RASH ipratropium Allergy Mild SHORTNESS Verified 09/09/20 18:27 OF BREATH povidone Allergy Mild BLISTER Verified 09/09/20 18:27 WITH TAPE fish derived Allergy Unknown Unknown Verified 09/09/20 18:27 Fish Containing Products Allergy Verified 09/09/20 18:27 psyllium [From Metamucil] Allergy bloating Unverified 09/09/20 18:27 shellfish derived Allergy Verified 09/09/20 18:27 stevioside [From Stevia] Allergy Verified 09/09/20 18:27 meperidine AdvReac Intermediate Gastrointestinal Verified 09/09/20 18:27 Upset morphine AdvReac Intermediate Gastrointestinal Verified 09/09/20 18:27 Upset adhesive AdvReac Mild BLISTERS Verified 09/09/20 18:27 WITH TAPE banana AdvReac Verified 09/09/20 18:27 sucralose AdvReac Verified 09/09/20 18:27 [From Splenda (sucralose)] Consultations 09/09/20 18:24 ED Decision to Admit Stat 09/09/20 20:28 Consult Case Management - Discharge Planning Routine Ordered Studies 09/09/20 18:16 CT head/brain wo con Stat Hospital Course (1) Weakness: generalized 2/2 physical deconditioning and obesity. Possibly polypharmacy contributing and also having recent prolonged hospitalization. PT/OT evals performed and she was able to return home with someone who can be there with her. She has her son living locally and was able to retunr home after a couple of days. (2) Constipation: Reported constipation and Oxycodone regimen was switched to Nucynta to see if this improved effect on her gut. She did report some slow gut activity in the past, ?diabetic gastroparesis. GI followup as outpatient was requested. (3) Nausea: Pt reports this as chronic but more severe, although she was able to eat and hold onto 75% of each meal served. [place] in this situation outpatient GI follow-up was safe and she agreed with this. (4) Fall: No apparent sequelae of fall. Plan as above. (5) Ambulatory dysfunction: (6) Chronic diastolic heart failure: Chronic, stable. Euvolemic on exam. (7) Chronic respiratory failure with hypoxia: She is at her baseline oxyen needs. (8) COPD (chronic obstructive pulmonary disease): chronic, stable. No evidence of acute exacerbation. (9) Paroxysmal atrial fibrillation: Chronic, stable, Rate and rhythm controlled, Continue Tikosyn, Coreg and Xarelto (10) Anemia: chronic, around her baseline. Likely 2/2 to multiple co morbidities including renal disease, chf, copd, chronic anticoagulation (11) Chronic pain syndrome: 2/2 OA in setting of morbid obesity. Switched oxycodone to Nucynta without issue overnight. (12) Morbid obesity: BMI 48.3 encourage lifestyle and diet modifications Total Time Total Time Spent Total Time Spent (In Minutes): 60 Total Time Includes: Examination of the Patient, Discharge Planning, Medication Reconciliation and Communication With Other Providers Discharge Plan Discharge Items Patient Disposition: Home - Home Health Services Reason For Visit: AMBULATORY DYSFUNCTION, ACUTE ON CHRONIC RENAL Discharge Diagnosis: generalized weakness Ambulatory dysfunction Condition on Discharge: Good Activity: Resume your previous activity Non-emergency contact: Primary Care Provider Call non-emergency contact if: you have any medication questions, your symptoms worsen, your pain is not controlled, your pain is worsening, you have a fever, your wound has increased redness and your wound pain has increased Follow-up/Referrals: Mendez Swann MD [Primary Care Provider] - (Date & Time 09/16/2020 10:00 AM Provider Mendez Swann MD Department [facility] ) Diet: Carb Consistent or DM2 and Low Sodium (2gm) Addtl Attending Provider Instructions: Please take all medications as instructed on discharge list below. Please follow-up in 1 week with your primary care physician to address the mutliple additional issues we discussed while you were admitted, and to ensure you are still doing well after going home. Regarding your nausea, I have contacted ESTELA Martinez from [facility] who will be contacting you to set up a visit regarding your persistent nausea. You should continue Home Health for PT and OT as well as nursing for med review and reconciliation and vitals checks with weight assessments on a standing scale. Blood sugar checks should also be performed with diabetic counseling and nutritional counseling as available. It was a pleasure taking care of you! Please call if you have any questions or problems. You can reach a [facility] hospitalist on duty at [facility] 24 hours a day by calling [phone]. Take care of yourself. Carli Meek DO [facility] Pending Studies at Discharge: No Stand-Alone Forms: My [facility] Medications and DC Order Prescriptions: New Nucynta 50 mg Tablet 50 mg PO Q6H PRN (Reason: pain) Qty: 20 RF: 0 Nucynta ER 50 mg Tablet Extended Release 12 Hr 50 mg PO Q12 Qty: 30 RF: 0 Continued multivitamin Tablet 1 tab PO QAM RF: 0 carvedilol 6.25 mg tablet 6.25 mg PO BID RF: 0 albuterol sulfate 2.5 mg /3 mL (0.083 %) solution for nebulization 2.5 mg inhalation Q4H PRN (Reason: sob) RF: 0 dofetilide 250 mcg capsule 250 mcg PO Q12H RF: 0 torsemide 10 mg Tablet 10 mg PO QAM RF: 0 potassium chloride 10 mEq Tablet Extended Release 10 meq PO QAM RF: 0 spironolactone 25 mg Tablet 12.5 mg PO MOWEFR@0900 RF: 0 hydrocortisone [Proctosol HC] 2.5 % Cream With Perineal Applicator 1 applic IN BID PRN (Reason: hemorrhoid) RF: 0 cyanocobalamin (vitamin B-12) 500 mcg Tablet 500 mcg PO QAM RF: 0 meclizine 25 mg Tablet 25 mg PO Q8H PRN (Reason: dizziness) RF: 0 baclofen 10 mg Tablet 5 mg PO BID RF: 0 pantoprazole 40 mg Tablet,Delayed Release (Dr/Ec) 40 mg PO DAILY RF: 0 Premarin 0.625 mg/gram Cream 0.625 mg VAGINAL 3XWK RF: 0 albuterol sulfate 90 mcg/actuation HFA aerosol inhaler 2 inh INHALATION Q6H PRN (Reason: SOB) RF: 0 metformin 500 mg Tablet Extended Release 24 Hr 1,000 mg PO PM RF: 0 cholecalciferol (vitamin D3) 25 mcg (1,000 unit) Capsule 25 mcg PO DAILY RF: 0 rivaroxaban 15 mg Tablet 15 mg PO PM RF: 0 Discharge Orders: Discharge Order (Routine); Ordered 09/12/20 Ordered By: Carli Culver/Other Patient Handouts: Tapentadol extended-release tablets Admission Data Admit Date/Time: 09/09/20 18:38 Attending Provider: Carli Meek Admit Provider: Alex El Primary Care Provider: Mendez Swann Other Providers: Alex El ; [facility] Other Interventions: Discharge Summary Assessment (RN) Last Done: 09/12/20 16:47
[2020-09-12] MEDS: TAPENTADOL HCL 50 MG TAB PO PRN (17:22)
== END 2020-09-12 18:59 | disposition home health service (06) ==
LOC: ED 13:28 → 2N 13:28 → SUATTDRO 18:38 → 2N 19:54 → 3W 09-11 23:50

== ENCOUNTER 2021-11-08 15:26 | Inpatient (IN) ==
[2021-11-08] MEDS ORDERED: SODIUM CHLORIDE 0.9% 1000ML 1,000 ML IV SCH (16:00)
--- NOTE | 2021-11-08 16:17 | XRay Report ---
XR chest 1V portable CLINICAL HISTORY: sob. COMPARISON STUDY: 09/09/2020 TECHNIQUE: 1 view of the chest FINDINGS: Single frontal view of the chest demonstrates the heart to be mildly enlarged. Extensive patchy inter stitial and alveolar opacities are present bilaterally. The findings are most characteristic of a vir al type pneumonitis. Covid 19 pneumonia should be excluded. There is no evidence for pleural effusion . There is no evidence for vascular congestion. There is no acute osseous pathology. IMPRESSION: Extensive patchy interstitial and alveolar opacities bilaterally characteristic of a vivian l type pneumonitis and probable Covid 19 pneumonia. ACT 112: Negative or not required by law. Electronically signed by: Nam Knight M.D. 11/08/2021 4:15 PM
--- NOTE | 2021-11-08 16:27 | Emergency Department Note ---
History of Present Illness General Chief complaint: Respiratory Problems Time Seen by Provider: 11/08/21 15:39 Source: patient Mode of arrival: EMS Limitations: no limitations History of Present Illness Provider complaint: Increased shortness of breath, recently COVID-positive Onset (ago): week(s) 2 Associated symptoms: + cough, + fever/chills, + loss of appetite, + malaise, + n ausea/vomiting and + shortness of breath; no chest pain or no headaches Treatments prior to arrival: none This is a 76-year-old female who presents to the emergency department complaining of worsening shortness of breath. She states she began noticing increased cough, nasal congestion, fatigue, and fevers 2 weeks ago. She states she took a home test and was positive for COVID. She states since that time she has been needing to intermittently turn up her home oxygen that she wears chronically at 3 L. Patient states she has continued using her breathing treatm ents although still feels her breathing is getting worse. She states she has had decreased appetite and poor oral intake. She states she is concerned about this that she has a history of electrolyte and kidney problems. She denies any overt vomiting or diarrhea. Patient states she is uncertain whom she came in contact with who was also COVID-positive. Patient with a history of COPD. 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 Patient states she did finish a 10-day course of antibiotics and is still finishing her steroid taper patient states she also has a history of heart problems. EMS reports she was in the low 80s on her usual 3 L so she was transitioned to a nonrebreather at 10 L/min with improvement in her oxygen saturation. Pt seen during a time of high acuity and national emergency pandemic while wearing PPE. Home Medications Medication Instructions Recorded Confirmed Type baclofen 10 mg tablet 5 mg PO BID 09/12/20 11/08/21 History carvedilol 6.25 mg tablet 6.25 mg PO BID 09/12/20 11/08/21 History cholecalciferol (vitamin D3) 25 25 mcg PO DAILY 09/12/20 11/08/21 History mcg (1,000 unit) capsule conjugated estrogens 0.625 mg/gram 0.625 mg VAGINAL MOWEFR@0900 09/12/20 11/08/21 History vaginal cream (Premarin) cyanocobalamin (vitamin B-12) 500 500 mcg PO DAILY 09/12/20 11/08/21 History mcg tablet dofetilide 250 mcg capsule 250 mcg PO BID 09/12/20 11/08/21 History hydrocortisone 2.5 % topical cream 1 applic VA BID PRN 09/12/20 11/08/21 History with perineal applicator (Proctosol HC) meclizine 25 mg tablet 25 mg PO Q8H PRN 09/12/20 11/08/21 History metformin 500 mg tablet,extended 500 mg PO QPM 09/12/20 11/08/21 History release 24 hr multivitamin 1 tab PO DAILY 09/12/20 11/08/21 History pantoprazole 40 mg tablet,delayed 40 mg PO DAILY PRN 09/12/20 11/08/21 History release potassium chloride 10 mEq 10 meq PO QAM 09/12/20 11/08/21 History tablet,extended release spironolactone 25 mg tablet 12.5 mg PO MOWEFR@0900 09/12/20 11/08/21 History torsemide 10 mg tablet 10 mg PO QAM 09/12/20 11/08/21 History acetaminophen 650 mg 650 mg PO UD PRN 09/28/20 11/08/21 History tablet,extended release (Tylenol 8 Hour) diclofenac sodium 2 % topical 1 packet TOPICAL UD PRN 09/28/20 11/08/21 History solution in packet levothyroxine 150 mcg tablet 150 mcg PO QAM 09/28/20 11/08/21 History magnesium 200 mg tablet 600 mg PO DAILY 09/28/20 11/08/21 History ondansetron HCl 4 mg tablet 4 mg PO Q8H PRN 09/28/20 11/08/21 History polyethylene glycol 3350 17 gram 17 g PO QAM PRN 09/28/20 11/08/21 History oral powder packet (Miralax) albuterol sulfate 90 mcg/actuation 2 inh INHALATION Q6H PRN #3 inhaler 11/11/20 11/08/21 Rx aerosol inhaler mupirocin 2 % topical ointment 1 applic TOPICAL BID #22 g 01/11/21 11/08/21 Rx ferrous fumarate-vitamin C 200 mg 1 tab PO DAILY 03/01/21 11/08/21 History (66 mg iron)-125 mg tablet folic acid 1 mg tablet 1 mg PO DAILY 03/01/21 11/08/21 History nebulizers #1 ea 05/11/21 11/08/21 Rx albuterol sulfate 2.5 mg INHALATION Q4H PRN #180 ml 09/27/21 11/08/21 Rx prednisone 10 mg tablet See Rx Instructions PO DAILY #36 10/31/21 11/08/21 Rx tab benzonatate 100 mg capsule 100 mg PO TID PRN 11/08/21 11/08/21 History oxycodone 10 mg tablet 10 mg PO Q6H PRN 11/08/21 11/08/21 History oxycodone 20 mg tablet,crush 20 mg PO BID PRN 11/08/21 11/08/21 History resistant,extended release 12 hr (OxyContin) Allergies Allergy/AdvReac Type Severity Reaction Status Date / Time aspirin Allergy Severe HIVES, SOB Verified 11/08/21 18:35 Iodinated Contrast Media Allergy Severe "CAUSED Verified 11/08/21 18:35 ASTHMA ATTACK" & HIVES ipratropium Allergy Severe SHORTNESS Verified 11/08/21 18:35 OF BREATH metaproterenol [From Alupent] Allergy Severe EYES AND Verified 11/08/21 18:35 FACE SWELLING, SEVERE WHEEZING NSAIDS (Non-Steroidal Allergy Severe Hives Verified 11/08/21 18:35 Anti-Inflamma Penicillins Allergy Severe SOB, HIVES Verified 11/08/21 18:35 sotalol Allergy Severe increased Verified 11/08/21 18:35 breathing problems Sulfa (Sulfonamide Allergy Severe Anaphylaxis Verified 11/08/21 18:35 Antibiotics) tiotropium Allergy Severe SYMPTOMS Verified 11/08/21 18:35 [From Spiriva with GOT WORSE HandiHaler] INSTEAD OF BETTER WITH BREATHING arformoterol Allergy Intermediate TACHYCARDIA Verified 11/08/21 18:35 aspartame Allergy Intermediate HIVES, Verified 11/08/21 18:35 ITCHY ciprofloxacin Allergy Intermediate WHEEZING, Verified 11/08/21 18:35 NAUSEA clarithromycin [From Biaxin] Allergy Intermediate Unknown, ? Verified 11/08/21 18:35 WHEEZING , OR NAUSEA ? Fish Containing Products Allergy Intermediate BODY CAN'T Verified 11/08/21 18:35 ABSORB fish derived Allergy Intermediate Unknown Verified 11/08/21 18:35 latex Allergy Intermediate ITCHY/RASH Verified 11/08/21 18:35 nickel Allergy Intermediate RASH & Verified 11/08/21 18:35 BLISTERS pioglitazone [From Actos] Allergy Intermediate RETAINED Verified 11/08/21 18:35 FLUID povidone Allergy Intermediate BLISTER Verified 11/08/21 18:35 WITH TAPE shellfish derived Allergy Intermediate BODY CAN'T Verified 11/08/21 18:35 ABSORB, "SMELL LIKE A FISH" stevioside [From Stevia] Allergy Intermediate Wheezing Verified 11/08/21 18:35 sucralose Allergy Intermediate Wheezing Verified 11/08/21 18:35 [From Splenda (sucralose)] adhesive Allergy Mild BLISTERS Verified 11/08/21 18:35 WITH TAPE apixaban [From Eliquis] Allergy Mild SEE NOTES Verified 11/08/21 18:35 BELOW banana Allergy Mild "FEELS Verified 11/08/21 18:35 LIKE PEACH FUZZ IN MOUTH" chlorhexidine Allergy Mild BLISTERY Verified 11/08/21 18:36 RASH psyllium [From Metamucil] AdvReac Intermediate bloating Verified 11/08/21 18:36 meperidine AdvReac Mild Gastrointestinal Verified 11/08/21 18:36 Upset, N/V metformin [From Riomet] AdvReac Mild DIARRHEA Verified 11/08/21 18:36 WITH MORE THAN 1 A DAY morphine AdvReac Mild Gastrointestinal Verified 11/08/21 18:36 Upset,N/V tapentadol [From Nucynta] AdvReac Mild Nausea and Verified 11/08/21 18:36 vomiting Past Med/Surg History Medical History Asthma USED RESCUE INHALER LAST WEEKEND Back problem 3 DISCS PUSHING ON SCIATIC NERVE PER PT>CAUSES R LEG NUMBNESS AT TIMES LYING FLAT FOR EXTENDED TIME WILL CAUSE LEGS TO JUMP Chronic anticoagulation Chronic diastolic CHF (congestive heart failure) Chronic low blood pressure Chronic respiratory failure with hypoxia CKD (chronic kidney disease), stage III COPD (chronic obstructive pulmonary disease) Cor pulmonale, chronic DM type 2 (diabetes mellitus, type 2) Dyslipidemia History of Meniere's disease History of TIA (transient ischemic attack) ? NEVER CONFIRMED (PT DOES NOT THINK SHE HAD TIA) Hx of vertigo Hypothyroidism Impingement syndrome of both shoulders ZEYAD (obstructive sleep apnea) WEARS 3-4L CONT. Osteoarthritis Oxygen dependent 3-4L CONT. 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 Beliefs That Will Affect Care: None marital status: Current Living Situation: Family Current Living Situation Comment: WITH SON Feels Safe at Home: No Is there a partner from a previous relationship who is making you feel unsafe now?: No Assistive Devices: Denture - Upper, Denture - Lower, Oxygen - Continuous, Walker and Wheelchair Review of Systems A total of 10 systems reviewed and were otherwise negative All systems reviewed & are unremarkable except as noted in HPI & below Physical Exam Vital Signs Vital Signs - 24 hr 11/08/21 15:18 11/08/21 15:48 11/08/21 16:00 Pulse Rate 102 H 103 H 79 Pulse Rate [Apical] Pulse Rate from SpO2 Sensor 103 H 77 Respiratory Rate 26 H 22 22 Respiratory Effort / Characteristics Non-Labored Blood Pressure 166/101 H Blood Pressure [Right Arm] Blood Pressure Mean 122 Blood Pressure Mean [Right Arm] Pulse Oximetry 97 97 99 Oxygen Delivery Method Non-rebreather Oxygen Flow Rate 10 Sepsis Recent Fever Within 48 Hours No Sepsis New/Unexplained Change in Mental Status No Sepsis Action Taken by Nursing Physician Notified 11/08/21 16:30 11/08/21 16:41 11/08/21 17:00 Pulse Rate 79 72 Pulse Rate [Apical] Pulse Rate from SpO2 Sensor 80 73 Respiratory Rate 25 H 21 Respiratory Effort / Characteristics Blood Pressure 168/88 H Blood Pressure [Right Arm] Blood Pressure Mean 114 Blood Pressure Mean [Right Arm] Pulse Oximetry 99 95 96 Oxygen Delivery Method Oxymask Oxygen Flow Rate 10 Sepsis Recent Fever Within 48 Hours Sepsis New/Unexplained Change in Mental Status Sepsis Action Taken by Nursing 11/08/21 17:18 11/08/21 17:30 Pulse Rate 70 Pulse Rate [Apical] 79 Pulse Rate from SpO2 Sensor 76 Respiratory Rate 16 18 Respiratory Effort / Characteristics Blood Pressure Blood Pressure [Right Arm] 168/88 H Blood Pressure Mean Blood Pressure Mean [Right Arm] 114 Pulse Oximetry 96 96 Oxygen Delivery Method Oxymask Oxygen Flow Rate 10 Sepsis Recent Fever Within 48 Hours Sepsis New/Unexplained Change in Mental Status Sepsis Action Taken by Nursing GENERAL: alert, unwell appearing, well nourished, no distress, non-toxic, BMI>43 EYE EXAM: normal conjunctiva, PERRL and EOM's grossly intact OROPHARYNX: no exudate, no erythema, lips, buccal mucosa, and tongue normal and mucous membranes are moist NECK: supple, no nuchal rigidity, no adenopathy, non-tender LUNGS: Decreased bilaterally to auscultation. Normal chest wall mechanics, no wheezes, scattered rhonchi and rales HEART: no murmurs, S1 normal and S2 normal ABDOMEN: abdomen soft, non-tender, normo-active bowel sounds, no masses, no rebound or guarding. BACK: Back is symmetrical on inspection and there is no deformity, no midline tenderness, no CVA tenderness. SKIN: no rashes and no bruising UPPER EXTREMITIES: upper extremities are grossly normal. FROM, nml pulses b/l. LOWER EXTREMITIES: No pitting edema. FROM, nml pulses b/l. NEURO EXAM: Normal sensorium, cranial nerves II-XII grossly intact, normal speech, no gross weakness of arms, no gross weakness of legs. Gross sensation intact. Course Course 1739: Discussed with [facility] team. Administered Medications Baclofen (Baclofen 10 Mg Tab) 5 mg PO BID [facility] Stop: 12/08/21 21:29 Last Admin: 11/08/21 21:47 Dose: 5 mg Documented by: [id number] Benzonatate (Benzonatate 100 Mg Capsule) 100 mg PO TID YELITZA Stop: 12/08/21 21:29 Last Admin: 11/08/21 21:47 Dose: 100 mg Documented by: [id number] Carvedilol (Carvedilol 6.25 Mg Tab) 6.25 mg PO BID [facility] Stop: 12/08/21 21:29 Last Admin: 11/08/21 21:51 Dose: 6.25 mg Documented by: [id number] Dofetilide (Dofetilide 125 Mcg Capsule) 250 mcg PO BID [facility] Stop: 12/08/21 21:29 Last Admin: 11/08/21 21:50 Dose: 250 mcg Documented by: [id number] Enoxaparin Sodium (Enoxaparin Inj 40 Mg/0.4 Ml Syr) 40 mg SQ HS [facility] Stop: 12/08/21 21:29 Last Admin: 11/08/21 21:52 Dose: 40 mg Documented by: [id number] Dexamethasone 6 mg/ Syringe 1.5 mls @ 1 mls/min IV Q24H [facility] Stop: 12/08/21 17:59 Last Admin: 11/08/21 19:19 Dose: 1 mls/min Documented by: [id number] Insulin Aspart (Insulin Aspart Per Unit) 0 units SC [facility]; Protocol Stop: 12/08/21 21:29 Last Admin: 11/08/21 22:19 Dose: 24 units Documented by: [id number] Cosigned by: [id number] Discontinued Medications Sodium Chloride (Nss 1000ml) 1,000 mls @ 125 mls/hr IV .Q8H [facility] Stop: 12/08/21 15:59 Last Admin: 11/08/21 16:24 Dose: 125 mls/hr Documented by: [id number] Insulin Glargine (Insulin Glargine Solostar 100 Units/Ml 3 Ml Pen) 20 units SC [facility]; Protocol Stop: 11/08/21 21:46 Last Admin: 11/08/21 22:19 Dose: 20 units Documented by: [id number] Cosigned by: [id number] Insulin Human Regular (Novolin-R Insulin Per Unit Charge) 10 units SC NOW [facility] Stop: 11/08/21 17:31 Last Admin: 11/08/21 17:52 Dose: 10 units Documented by: [id number] Cosigned by: [id number] Medical Decision Making Differential Diagnosis Differential diagnoses includes but is not limited to pneumonia, bronchitis, COPD/Asthma exacerbation, pneumothorax, pulmonary embolism, congestive heart failure, acute coronary syndrome Medical Records Attestation: I reviewed the patient's medical records. Home Medications Current Medication List: was personally reviewed by me Laboratory Data Attestation: I reviewed the patient's lab results. Result diagrams: 11/08/21 16:04 11/08/21 16:04 Lab Results 11/08/21 11/08/21 11/08/21 Range/Units 16:04 16:04 16:04 WBC 11.58 H (4.8-10.8) K/uL RBC 3.97 L (4.2-5.4) M/uL Hgb 9.3 L (12.0-16.0) g/dL Hct 31.7 L (37-47) % MCV 79.8 L (80-100) fL MCH 23.4 L (25-34) pg MCHC 29.3 L (32-36) g/dL RDW Std Deviation 48.7 H (36.4-46.3) fL RDW Coeff of [place] 16.6 H (11.5-14.5) % Plt Count 300 (130-400) K/uL MPV 9.5 (7.4-10.4) fL Immature Gran % (Auto) 0.8 % Neut % (Auto) 85.8 % Lymph % (Auto) 4.7 % [place] % (Auto) 8.5 % Eos % (Auto) 0.0 % Baso % (Auto) 0.2 % Neut # (Auto) 9.93 H (1.4-6.5) K/uL Lymph # (Auto) 0.55 L (1.2-3.4) K/uL [place] # (Auto) 0.99 H (0.11-0.59) K/uL Eos # (Auto) 0.00 (0-0.5) K/uL Baso # (Auto) 0.02 (0-0.2) K/uL Immature Gran # (Auto) 0.09 H (0.00-0.02) K/uL Absolute Nucleated RBC 0.05 H (0-0) K/uL Nucleated RBC % (auto) 0.4 % Sodium 132 L (136-145) mmol/L Potassium 4.5 (3.5-5.1) mmol/L Chloride 88 L (98-107) mmol/L Carbon Dioxide 33 H (21-32) mmol/L Anion Gap 11 (3-11) BUN 25 H (6-23) mg/dl Creatinine 1.28 H (0.6-1.2) mg/dl Est Cr Clr Drug Dosing 51.7 ml/min Est GFR ( Amer) 47.7 ml/min Est GFR (Non-Af Amer) 41.1 ml/min BUN/Creatinine Ratio 19.5 (10-20) Glucose 430 H* (70-99(Fasting)) mg/dl Calcium 9.1 (8.5-10.1) mg/dl Magnesium 1.8 (1.7-2.4) mg/dl Total Bilirubin 0.5 (0.2-1.0) mg/dl AST 10 L (13-39) U/L ALT 11 (7-52) U/L Alkaline Phosphatase 57 (34-104) U/L Troponin I < 0.03 (0-0.04) ng/ml C-Reactive Protein (0-0.5) mg/dl B-Natriuretic Peptide (0-100) pg/ml Total Protein 6.9 (6.0-8.3) gm/dl Albumin 3.2 L (3.4-5.0) gm/dl Globulin 3.7 (2.5-4.0) gm/dl Albumin/Globulin Ratio 0.9 (0.9-2) Procalcitonin (0-0.5) ng/ml TSH 0.221 L (0.300-4.500) uIu/ml Free T4 1.96 H (0.61-1.60) ng/dl SARS-CoV-2 (PCR) (Negative) Influenza Type A (PCR) (Neg) Influenza Type B (PCR) (Neg) RSV (RT-PCR) (Neg) 11/08/21 11/08/21 11/08/21 Range/Units 16:04 16:04 16:23 WBC (4.8-10.8) K/uL RBC (4.2-5.4) M/uL Hgb (12.0-16.0) g/dL Hct (37-47) % MCV (80-100) fL MCH (25-34) pg MCHC (32-36) g/dL RDW Std Deviation (36.4-46.3) fL RDW Coeff of Lawrence (11.5-14.5) % Plt Count (130-400) K/uL MPV (7.4-10.4) fL Immature Gran % (Auto) % Neut % (Auto) % Lymph % (Auto) % [place] % (Auto) % Eos % (Auto) % Baso % (Auto) % Neut # (Auto) (1.4-6.5) K/uL Lymph # (Auto) (1.2-3.4) K/uL [place] # (Auto) (0.11-0.59) K/uL Eos # (Auto) (0-0.5) K/uL Baso # (Auto) (0-0.2) K/uL Immature Gran # (Auto) (0.00-0.02) K/uL Absolute Nucleated RBC (0-0) K/uL Nucleated RBC % (auto) % Sodium (136-145) mmol/L Potassium (3.5-5.1) mmol/L Chloride (98-107) mmol/L Carbon Dioxide (21-32) mmol/L Anion Gap (3-11) BUN (6-23) mg/dl Creatinine (0.6-1.2) mg/dl Est Cr Clr Drug Dosing ml/min Est GFR ( Amer) ml/min Est GFR (Non-Af Amer) ml/min BUN/Creatinine Ratio (10-20) Glucose (70-99(Fasting)) mg/dl Calcium (8.5-10.1) mg/dl Magnesium (1.7-2.4) mg/dl Total Bilirubin (0.2-1.0) mg/dl AST (13-39) U/L ALT (7-52) U/L Alkaline Phosphatase (34-104) U/L Troponin I (0-0.04) ng/ml C-Reactive Protein 5.61 H (0-0.5) mg/dl B-Natriuretic Peptide 260 H (0-100) pg/ml Total Protein (6.0-8.3) gm/dl Albumin (3.4-5.0) gm/dl Globulin (2.5-4.0) gm/dl Albumin/Globulin Ratio (0.9-2) Procalcitonin 0.12 (0-0.5) ng/ml TSH (0.300-4.500) uIu/ml Free T4 (0.61-1.60) ng/dl SARS-CoV-2 (PCR) (Negative) Influenza Type A (PCR) (Neg) Influenza Type B (PCR) (Neg) RSV (RT-PCR) (Neg) 11/08/21 Range/Units 16:23 WBC (4.8-10.8) K/uL RBC (4.2-5.4) M/uL Hgb (12.0-16.0) g/dL Hct (37-47) % MCV (80-100) fL MCH (25-34) pg MCHC (32-36) g/dL RDW Std Deviation (36.4-46.3) fL RDW Coeff of Lawrence (11.5-14.5) % Plt Count (130-400) K/uL MPV (7.4-10.4) fL Immature Gran % (Auto) % Neut % (Auto) % Lymph % (Auto) % [place] % (Auto) % Eos % (Auto) % Baso % (Auto) % Neut # (Auto) (1.4-6.5) K/uL Lymph # (Auto) (1.2-3.4) K/uL [place] # (Auto) (0.11-0.59) K/uL Eos # (Auto) (0-0.5) K/uL Baso # (Auto) (0-0.2) K/uL Immature Gran # (Auto) (0.00-0.02) K/uL Absolute Nucleated RBC (0-0) K/uL Nucleated RBC % (auto) % Sodium (136-145) mmol/L Potassium (3.5-5.1) mmol/L Chloride (98-107) mmol/L Carbon Dioxide (21-32) mmol/L Anion Gap (3-11) BUN (6-23) mg/dl Creatinine (0.6-1.2) mg/dl Est Cr Clr Drug Dosing ml/min Est GFR ( Amer) ml/min Est GFR (Non-Af Amer) ml/min BUN/Creatinine Ratio (10-20) Glucose (70-99(Fasting)) mg/dl Calcium (8.5-10.1) mg/dl Magnesium (1.7-2.4) mg/dl Total Bilirubin (0.2-1.0) mg/dl AST (13-39) U/L ALT (7-52) U/L Alkaline Phosphatase (34-104) U/L Troponin I (0-0.04) ng/ml C-Reactive Protein (0-0.5) mg/dl B-Natriuretic Peptide (0-100) pg/ml Total Protein (6.0-8.3) gm/dl Albumin (3.4-5.0) gm/dl Globulin (2.5-4.0) gm/dl Albumin/Globulin Ratio (0.9-2) Procalcitonin (0-0.5) ng/ml TSH (0.300-4.500) uIu/ml Free T4 (0.61-1.60) ng/dl SARS-CoV-2 (PCR) POSITIVE A* (Negative) Influenza Type A (PCR) Negative (Neg) Influenza Type B (PCR) Negative (Neg) RSV (RT-PCR) Negative (Neg) Imaging Data Radiologist's Impression: Chest X-Ray 11/08/21 15:58 XR chest 1V portable CLINICAL HISTORY: sob. COMPARISON STUDY: 09/09/2020 TECHNIQUE: 1 view of the chest FINDINGS: Single frontal view of the chest demonstrates the heart to be mildly enlarged. Extensive patchy interstitial and alveolar opacities are present bilaterally. The findings are most characteristic of a viral type pneumonitis. Covid 19 pneumonia should be excluded. There is no evidence for pleural effusion. There is no evidence for vascular congestion. There is no acute osseous pathology. IMPRESSION: Extensive patchy interstitial and alveolar opacities bilaterally characteristic of a viral type pneumonitis and probable Covid 19 pneumonia. ACT 112: Negative or not required by law. Electronically signed by: Nam Knight M.D. 11/08/2021 4:15 PM ECG Data Attestation: I personally reviewed and interpreted this ECG as follows: Indication: + SOB/dyspnea Rate (beats per minute): 100 Rhythm: + normal sinus ECG Intervals/blocks: + First degree AV block, + Normal QRS and + Prolonged QT ECG [place]: + Left axis deviation ECG ST segments: + Nonspecific ST abnormalities MDM Narrative This is a 76 female who presents via EMS due to concern for increased shortness of breath and known COVID infection. Patient with a history of COPD on chronic home oxygen, prior cardiac history in addition, with worsening generalized weakness, fatigue, and decreased oral intake as her acute COVID infection progressed. Patient did require increased oxygen support via nonrebreather however was able to be decreased to 7 to 8 L/min on an oxy mask. Labs drawn and sent, chest x-ray performed and consistent with acute COVID infection. Discussed with hospitalist for additional evaluation and management. Patient was started on gentle IV fluid rehydration due to decreased oral intake recently, however patient does have history of congestive heart failure, and chronic kidney disease. This will need to be monitored closely. I suspect the infection and dehydration are contributing to her weakness. An order was placed for continuous cardiac monitoring. The monitor shows a rate of _80_ with _normal sinus___ rhythm. Impression & Plan Dyspnea, Generalized weakness, Acute dehydration, Acute on chronic respiratory failure with hypoxia, COPD (chronic obstructive pulmonary disease), Hypoxia, Anemia Discharge Plan Visit Data Chief Complaint: Respiratory Problems ED Provider: Caridad Freire Discharge Problem: Dyspnea, Generalized weakness, Acute dehydration, Acute on chronic respiratory failure with hypoxia, COPD (chronic obstructive pulmonary disease), Hypoxia, Anemia Patient Disposition: Admitted As Inpatient Discharge Instructions Interventions: ED Discharge Assessment Last Done: 11/08/21 19:29 Discharge Problem: Dyspnea Qualifiers: Dyspnea type: shortness of breath Qualified Code(s): R06.02 - Shortness of pebbles th COPD (chronic obstructive pulmonary disease) Qualifiers: COPD type: unspecified COPD Qualified Code(s): J44.9 - Chronic obstructive pulmonary disease, unspecified Anemia Qualifiers: Anemia type: unspecified type Qualified Code(s): D64.9 - Anemia, unspecified
[2021-11-08 16:35] LABS: Basophils # (auto) 0.02 K/uL (0-0.2); Basophils % (auto) 0.2 %; Hematocrit (blood only) 31.7 % (37-47); Hemoglobin 9.3 g/dL (12.0-16.0); Immature Granulocytes # (auto) 0.09 K/uL (0.00-0.02); Immature Granulocytes % (auto) 0.8 %; Lymphocytes # (auto) 0.55 K/uL (1.2-3.4); Lymphocytes % (auto) 4.7 %; Mean Corpuscular Hemoglobin 23.4 pg (25-34); Mean Corpuscular Hgb Conc 29.3 g/dL (32-36); Mean Corpuscular Volume 79.8 fL (80-100); Mean Platelet Volume 9.5 fL (7.4-10.4); Monocytes # (auto) 0.99 K/uL (0.11-0.59); Monocytes % (auto) 8.5 %; Neutrophils # (auto) 9.93 K/uL (1.4-6.5); Neutrophils % (auto) 85.8 %; Nucleated RBC # (auto) 0.05 K/uL (0-0); Nucleated RBC % (auto) 0.4 %; Platelet Count 300 K/uL (130-400); RDW Coefficient of Variation 16.6 % (11.5-14.5); RDW Standard Deviation 48.7 fL (36.4-46.3); Red Blood Count 3.97 M/uL (4.2-5.4); White Blood Count 11.58 K/uL (4.8-10.8)
[2021-11-08 16:53] LABS: Troponin I < 0.03 ng/ml (0-0.04)
[2021-11-08 17:25] LABS: Influenza A virus by PCR Negative (Neg); Influenza B virus by PCR Negative (Neg); RSV by PCR Negative (Neg)
[2021-11-08 17:28] LABS: Alanine Aminotransferase 11 U/L (7-52); Albumin Globulin Ratio 0.9 (0.9-2); Albumin Level 3.2 gm/dl (3.4-5.0); Alkaline Phosphatase 57 U/L (34-104); Anion Gap 11 (3-11); Aspartate Aminotransferase 10 U/L (13-39); BUN Creatinine Ratio 19.5 (10-20); Bilirubin,Total 0.5 mg/dl (0.2-1.0); Blood Urea Nitrogen 25 mg/dl (6-23); Calcium 9.1 mg/dl (8.5-10.1); Carbon Dioxide 33 mmol/L (21-32); Chloride 88 mmol/L (98-107); Creatinine Clr Calc Pharmacy 51.7 ml/min; Est GFR (African American) 47.7 ml/min; Est GFR (Non-African American) 41.1 ml/min; Globulin 3.7 gm/dl (2.5-4.0); Glucose 430 mg/dl (70-99(Fasting)); Magnesium 1.8 mg/dl (1.7-2.4); Potassium 4.5 mmol/L (3.5-5.1); Sodium 132 mmol/L (136-145); Thyroid Stimulating Hormone 0.221 uIu/ml (0.300-4.500); Total Protein 6.9 gm/dl (6.0-8.3)
[2021-11-08] MEDS ORDERED: NovoLIN-R INSULIN PER UNIT CHARGE SC STA (17:30)
[2021-11-08 17:35] LABS: SARS CoV2 RNA(COVID-19) InHosp POSITIVE (Negative)
[2021-11-08] MEDS ORDERED: PHARMACY GLYCEMIC MGMT CONSULT PRN (17:53)
--- NOTE | 2021-11-08 17:55 | History & Physical Report ---
Date of Service November 08, 2021 Assessment & Plan (1) Acute on chronic respiratory failure with hypoxia: (2) Pneumonia due to COVID-19 virus: (3) COPD (chronic obstructive pulmonary disease): Plan: This is a 76yo F with PMH of COPD and chronic hypoxemic respiratory failure on 3L NC O2, chronic diastolic CHF, DM II, HTN, HLD, ZEYAD, paroxysmal A Fib anticoagulated on Xarelto, anemia of chronic disease, chronic cor pulmonale, morbid obesity, CKD stage III, chronic pain syndrome on narcotics and other medical problems listed below who presents with worsening SOB and cough in setting of known covid. Took a home test 10 days ago that was positive. Has increased from baseline 3L NC O2 to 5L over the past few days in setting of worsening SOB and productive cough Follows with [facility] pulm and was prescribed prednisone taper (down to 10mg daily) and Cefdinir course (completed) CXR with extensive patchy interstitial and alveolar opacities bilaterally characteristic of a viral type pneumonitis and probable Covid 19 pneumonia Currently 96% saturation on 8L Oxymask, appears comfortable IV dexamethasone 6mg daily, out of window for remdesivir Continue scheduled duonebs, flutter valve, incentive spirometry, Tessalon pearles, home inhalers as needed (4) Acute hyperglycemia: Plan: In setting of outpatient prednisone taper. Initial BSG >400, give IV insulin in ED. Consulting glycemic mgmt in setting of ongoing steroids (5) Paroxysmal atrial fibrillation: Plan: Continue Carvedilol, Tikosyn. HR currently 78. Previously on Xarelto but discontinued 9 months ago due to hematuria, hematochezia (6) DM type 2 (diabetes mellitus, type 2): Plan: Hold home agents SSI while in-patient Glycemic consult placed while receiving IV steroids, presented with BSG >400 BSG AC HS (7) Hypothyroidism: Plan: TSH 0.221, Free T4 high at 1.96. Reduced levothyroxine dose from 150 to 125 mcg (8) Chronic diastolic CHF (congestive heart failure): Plan: Continue torsemide, carvedilol. Watching volume status closely (9) CKD (chronic kidney disease), stage III: Plan: Kidney function appears to be at baseline at 1.28 (bl ~1.2-1.4) (10) Chronic pain syndrome: Plan: Arthritis of multiple joints. Home regimen includes Oxycontin 20mg BID PRN and IR oxycodone 10mg Q6H PRN Continue, monitor closely (11) ZEYAD (obstructive sleep apnea): Plan: On 3L NC continuously at home DVT Ppx: SQ lovenox Code status: FULL PCP: [facility] Dispo: Admitted to PCU Patient seen in collaboration with Dr. El. Please see addendum. History of Present Illness Chief Complaint: SOB Primary Care Provider: Flex Barr MD This is a 76yo F with PMH of COPD and chronic hypoxemic respiratory failure on 3L NC O2, chronic diastolic CHF, DM II, HTN, HLD, ZEYAD, paroxysmal A Fib ant icoagulated on Xarelto, anemia of chronic disease, chronic cor pulmonale, morbid obesity, CKD stage III, chronic pain syndrome on narcotics and other medical problems listed below who presents with worsening SOB and cough in setting of known covid. Took a home test 10 days ago that was positive. Is on 3L NC O2 at baseline for COPD but has had to increase to 5L over the past few days in setting of worsening SOB and productive cough. Follows with [facility] and was prescribed prednisone taper and Cefdinir course when initially diagnosed with covid that she has completed. Endorses chills, nausea, decreased appetite and pleuritic chest pain. No fever, chest pain, palpitations, vomiting or abdominal pain. Ongoing issues with urinary incontinence. No diarrhea or constipation. Allergies Allergy/AdvReac Type Severity Reaction Status Date / Time aspirin Allergy Severe HIVES, SOB Verified 11/08/21 18:35 Iodinated Contrast Media Allergy Severe "CAUSED Verified 11/08/21 18:35 ASTHMA ATTACK" & HIVES ipratropium Allergy Severe SHORTNESS Verified 11/08/21 18:35 OF BREATH metaproterenol [From Alupent] Allergy Severe EYES AND Verified 11/08/21 18:35 FACE SWELLING, SEVERE WHEEZING NSAIDS (Non-Steroidal Allergy Severe Hives Verified 11/08/21 18:35 Anti-Inflamma Penicillins Allergy Severe SOB, HIVES Verified 11/08/21 18:35 sotalol Allergy Severe increased Verified 11/08/21 18:35 breathing problems Sulfa (Sulfonamide Allergy Severe Anaphylaxis Verified 11/08/21 18:35 Antibiotics) tiotropium Allergy Severe SYMPTOMS Verified 11/08/21 18:35 [From Spiriva with [employer]] INSTEAD OF BETTER WITH BREATHING arformoterol Allergy Intermediate TACHYCARDIA Verified 11/08/21 18:35 aspartame Allergy Intermediate HIVES, Verified 11/08/21 18:35 ITCHY ciprofloxacin Allergy Intermediate WHEEZING, Verified 11/08/21 18:35 NAUSEA clarithromycin [From Biaxin] Allergy Intermediate Unknown, ? Verified 11/08/21 18:35 WHEEZING , OR NAUSEA ? Fish Containing Products Allergy Intermediate BODY CAN'T Verified 11/08/21 18:35 ABSORB fish derived Allergy Intermediate Unknown Verified 11/08/21 18:35 latex Allergy Intermediate ITCHY/RASH Verified 11/08/21 18:35 nickel Allergy Intermediate RASH & Verified 11/08/21 18:35 BLISTERS pioglitazone [From Actos] Allergy Intermediate RETAINED Verified 11/08/21 18:35 FLUID povidone Allergy Intermediate BLISTER Verified 11/08/21 18:35 WITH TAPE shellfish derived Allergy Intermediate BODY CAN'T Verified 11/08/21 18:35 ABSORB, "SMELL LIKE A FISH" stevioside [From Stevia] Allergy Intermediate Wheezing Verified 11/08/21 18:35 sucralose Allergy Intermediate Wheezing Verified 11/08/21 18:35 [From Splenda (sucralose)] adhesive Allergy Mild BLISTERS Verified 11/08/21 18:35 WITH TAPE apixaban [From Eliquis] Allergy Mild SEE NOTES Verified 11/08/21 18:35 BELOW banana Allergy Mild "FEELS Verified 11/08/21 18:35 LIKE PEACH FUZZ IN MOUTH" chlorhexidine Allergy Mild BLISTERY Verified 11/08/21 18:36 RASH psyllium [From Metamucil] AdvReac Intermediate bloating Verified 11/08/21 18:36 meperidine AdvReac Mild Gastrointestinal Verified 11/08/21 18:36 Upset, N/V metformin [From Riomet] AdvReac Mild DIARRHEA Verified 11/08/21 18:36 WITH MORE THAN 1 A DAY morphine AdvReac Mild Gastrointestinal Verified 11/08/21 18:36 Upset,N/V tapentadol [From Nucynta] AdvReac Mild Nausea and Verified 11/08/21 18:36 vomiting Home Medications Medication Instructions Recorded Confirmed Type baclofen 10 mg tablet 5 mg PO BID 09/12/20 11/08/21 History carvedilol 6.25 mg tablet 6.25 mg PO BID 09/12/20 11/08/21 History cholecalciferol (vitamin D3) 25 25 mcg PO DAILY 09/12/20 11/08/21 History mcg (1,000 unit) capsule conjugated estrogens 0.625 mg/gram 0.625 mg VAGINAL MOWEFR@0900 09/12/20 11/08/21 History vaginal cream (Premarin) cyanocobalamin (vitamin B-12) 500 500 mcg PO DAILY 09/12/20 11/08/21 History mcg tablet dofetilide 250 mcg capsule 250 mcg PO BID 09/12/20 11/08/21 History hydrocortisone 2.5 % topical cream 1 applic AL BID PRN 09/12/20 11/08/21 History with perineal applicator (Proctosol HC) meclizine 25 mg tablet 25 mg PO Q8H PRN 09/12/20 11/08/21 History metformin 500 mg tablet,extended 500 mg PO QPM 09/12/20 11/08/21 History release 24 hr multivitamin 1 tab PO DAILY 09/12/20 11/08/21 History pantoprazole 40 mg tablet,delayed 40 mg PO DAILY PRN 09/12/20 11/08/21 History release potassium chloride 10 mEq 10 meq PO QAM 09/12/20 11/08/21 History tablet,extended release spironolactone 25 mg tablet 12.5 mg PO MOWEFR@0900 09/12/20 11/08/21 History torsemide 10 mg tablet 10 mg PO QAM 09/12/20 11/08/21 History acetaminophen 650 mg 650 mg PO UD PRN 09/28/20 11/08/21 History tablet,extended release (Tylenol 8 Hour) diclofenac sodium 2 % topical 1 packet TOPICAL UD PRN 09/28/20 11/08/21 History solution in packet levothyroxine 150 mcg tablet 150 mcg PO QAM 09/28/20 11/08/21 History magnesium 200 mg tablet 600 mg PO DAILY 09/28/20 11/08/21 History ondansetron HCl 4 mg tablet 4 mg PO Q8H PRN 09/28/20 11/08/21 History polyethylene glycol 3350 17 gram 17 g PO QAM PRN 09/28/20 11/08/21 History oral powder packet (Miralax) albuterol sulfate 90 mcg/actuation 2 inh INHALATION Q6H PRN #3 inhaler 11/11/20 11/08/21 Rx aerosol inhaler mupirocin 2 % topical ointment 1 applic TOPICAL BID #22 g 01/11/21 11/08/21 Rx ferrous fumarate-vitamin C 200 mg 1 tab PO DAILY 03/01/21 11/08/21 History (66 mg iron)-125 mg tablet folic acid 1 mg tablet 1 mg PO DAILY 03/01/21 11/08/21 History nebulizers #1 ea 05/11/21 11/08/21 Rx albuterol sulfate 2.5 mg INHALATION Q4H PRN #180 ml 09/27/21 11/08/21 Rx prednisone 10 mg tablet See Rx Instructions PO DAILY #36 10/31/21 11/08/21 Rx tab benzonatate 100 mg capsule 100 mg PO TID PRN 11/08/21 11/08/21 History oxycodone 10 mg tablet 10 mg PO Q6H PRN 11/08/21 11/08/21 History oxycodone 20 mg tablet,crush 20 mg PO BID PRN 11/08/21 11/08/21 History resistant,extended release 12 hr (OxyContin) Past Med/Surg History Medical History Asthma USED RESCUE INHALER LAST WEEKEND Back problem 3 DISCS PUSHING ON SCIATIC NERVE PER PT>CAUSES R LEG NUMBNESS AT TIMES LYING FLAT FOR EXTENDED TIME WILL CAUSE LEGS TO JUMP Chronic anticoagulation Chronic diastolic CHF (congestive heart failure) Chronic low blood pressure Chronic respiratory failure with hypoxia CKD (chronic kidney disease), stage III COPD (chronic obstructive pulmonary disease) Cor pulmonale, chronic DM type 2 (diabetes mellitus, type 2) Dyslipidemia History of Meniere's disease History of TIA (transient ischemic attack) ? NEVER CONFIRMED (PT DOES NOT THINK SHE HAD TIA) Hx of vertigo Hypothyroidism Impingement syndrome of both shoulders ZEYAD (obstructive sleep apnea) WEARS 3-4L CONT. Osteoarthritis Oxygen dependent 3-4L CONT. 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 Brother Stroke Sister Diabetes Sister Diabetes Son Diabetes Social History Smoking Status: Never smoker Second Hand Exposure: No; Hx Alcohol Use: No Hx Substance Use: No Preferred Language: Hebrew Communication Ability: Effective Channel Marketing Coordinator Required: No Beliefs That Will Affect Care: None marital status: Current Living Situation: Family Current Living Situation Comment: WITH SON Feels Safe at Home: No Is there a partner from a previous relationship who is making you feel unsafe now?: No Assistive Devices: Denture - Upper, Denture - Lower, Oxygen - Continuous, Walker and Wheelchair Review of Systems Review of Systems: At least ten systems reviewed and negative except as noted in the HPI. Physical Exam Physical Exam: Please see Dr. El's addendum for physical exam. Results & Data Results & Data ([facility]) Vital Signs (Past 12 Hours) Vital Signs Pulse Pulse Resp BP BP Pulse Ox 11/08/21 17:18 79 16 168/88 H 96 11/08/21 16:41 95 11/08/21 15:18 102 H 26 H 166/101 H 97 Laboratory Results Short CBC 11/08/21 Range/Units 16:04 WBC 11.58 H (4.8-10.8) K/uL Hgb 9.3 L (12.0-16.0) g/dL Hct 31.7 L (37-47) % Plt Count 300 (130-400) K/uL BMP 11/08/21 16:04 Sodium 132 L Potassium 4.5 Chloride 88 L Carbon Dioxide 33 H BUN 25 H Creatinine 1.28 H Glucose 430 H* Calcium 9.1 Cardiac Enzymes 11/08/21 Range/Units 16:04 Troponin I < 0.03 (0-0.04) ng/ml Liver Function 11/08/21 Range/Units 16:04 Total Bilirubin 0.5 (0.2-1.0) mg/dl AST 10 L (13-39) U/L ALT 11 (7-52) U/L Alkaline Phosphatase 57 (34-104) U/L Albumin 3.2 L (3.4-5.0) gm/dl Diagnostic Findings Chest X-Ray 11/08/21 15:58 XR chest 1V portable CLINICAL HISTORY: sob. COMPARISON STUDY: 09/09/2020 TECHNIQUE: 1 view of the chest FINDINGS: Single frontal view of the chest demonstrates the heart to be mildly enlarged. Extensive patchy interstitial and alveolar opacities are present bilaterally. The findings are most characteristic of a viral type pneumonitis. Covid 19 pneumonia should be excluded. There is no evidence for pleural effusion. There is no evidence for vascular congestion. There is no acute osseous pathology. IMPRESSION: Extensive patchy interstitial and alveolar opacities bilaterally characteristic of a viral type pneumonitis and probable Covid 19 pneumonia. ACT 112: Negative or not required by law. Electronically signed by: Nam Knight M.D. 11/08/2021 4:15 PM Code Status & VTE Plan VTE Prophylaxis Plan VTE Prophylaxis will be ordered: Yes Supervising Physician Co-Signing Physician Notes Patient is a 76-year-old female with history of COPD on chronic oxygen dependency 3 L, CHF, diabetes mellitus and other medical problems presents with history of worsening shortness of breath, cough with occasional expectoration associated with chest discomfort secondary to cough since about 10 days duration. 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 Patient admits to increasing supplemental oxygen to 5 L for the past few days given worsening symptoms. Please review HPI for complete details of presentation. Patient is unvaccinated for COVID. Blood work suggestive of leukocytosis 11.58, chronic anemia 9.3 at baseline, sodium 132, chloride 88, creatinine 1.28, hyperglycemia 430, CRP 5.61, procalcitonin normal. Also noted abnormal thyroid function test TSH 0.22, free T4 1.96. CXR showed extensive patchy interstitial and alveolar opacities suggestive of pneumonitis. Physical Exam: Vitals signs as noted above General Appearance:Morbidly Obese, no apparent distress Head: normocephalic, Atraumatic Eyes: normal inspection, EOMI Neck: supple, Trachea midline Respiratory/Chest: Decreased breath sounds, CTA, No accessory muscle use Cardiovascular: S1, S2, No murmur Abdomen/GI:Soft, Non tender, Bowel sounds present Extremities/Musculoskeletal:normal inspection, no edema Neurologic/Psych:AAOX3, grossly no focal neurological deficits Skin: normal color, warm Acute on chronic respiratory failure with hypoxia Multifocal COVID pneumonia COVID Screen:Positive CXR: Resolution of multifocal pneumonia Procalcitonin normal CRP: 5.61 Started on Dexamethasone Currently may not benefit from remdesivir given onset of symptoms about 10 days ago Isolation precautions--Airborne/Contact Consult Pulmonology if improvement Encourage frequent Proning Lasix, Nebs PRN Continue Supplemental Oxygen DVT prophylaxis-Lovenox Hyponatremia Hypochloremia Likely secondary to home diuretics Monitor Prolonged QTC Avoid QTC prolonging meds I personally reviewed the record. Patient is interviewed and examined at bedside. Patient's care is coordinated with Lissa Rai PA-C. Please refer to the documentation above for details of patient's presentation and for discussion of other issues. (1) COPD (chronic obstructive pulmonary disease) COPD type: unspecified COPD Qualified Code(s): J44.9 - Chronic obstructive pulmonary disease, unspecified
[2021-11-08 18:01] LABS: T4 Free Thyroxine 1.96 ng/dl (0.61-1.60)
[2021-11-08] MEDS ORDERED: oxyCODONE HCL IR 5 MG TAB (IMMEDIATE RELEASE) PO PRN (18:48)
[2021-11-08] MEDS: dexAMETHasone 6 MG in SYRINGE 0 ML IV SCH (19:19)
[2021-11-08] MEDS ORDERED: ACETAMINOPHEN 325 MG TAB PO PRN (20:20)
[2021-11-08] MEDS ORDERED: DEXTROMETHORPHAN POLYMR COMPLX 30 MG/5 ML UDP PO PRN (20:20)
[2021-11-08] MEDS ORDERED: HYDROCORTISONE HC 2.5% CRM 30GM TUBE EXT PRN (20:20)
[2021-11-08] MEDS ORDERED: POLYETHYLENE (MIRALAX) 17 GM PACK PO PRN (20:20)
[2021-11-08] MEDS ORDERED: PANTOprazole 40 MG TAB PO PRN (20:20)
[2021-11-08] MEDS ORDERED: MECLIZINE HCL 25 MG TAB PO PRN (21:15)
[2021-11-08] MEDS ORDERED: ALBUTEROL HFA 8 GM INHALER INH PRN (21:15)
--- NOTE | 2021-11-08 21:29 | Electrocardiogram Report ---
Test Reason : Blood Pressure : / mmHG Vent. Rate : 100 BPM Atrial Rate : 100 BPM P-R Int : 160 ms QRS Dur : 074 ms QT Int : 368 ms P-R-T Axes : 075 -51 032 degrees QTc Int : 475 ms Poor data quality, interpretation may be adversely affected Sinus rhythm Left axis deviation Abnormal ECG When compared with ECG of 06-MAR-2021 14:47, No significant change Confirmed by Yvan Loving ([id number]) on 11/08/2021 9:29:49 PM Referred By: Confirmed By:Yvan Loving
[2021-11-08] MEDS ORDERED: INSULIN GLARGINE SOLOSTAR 100 UNITS/ML 3 ML PEN SC ONE (21:45)
[2021-11-08] MEDS ORDERED: GLUCOSE 40% GEL 15 GM TUBE PO PRN (21:45)
[2021-11-08] MEDS ORDERED: GLUCOSE 10 TABS/TUBE PO PRN (21:45)
[2021-11-08] MEDS ORDERED: DEXTROSE 50% 50 ML SYRINGE IV PRN (21:45)
[2021-11-08] MEDS ORDERED: GLUCAGON FOR INJ 1 MG VIAL IM PRN (21:45)
[2021-11-08] MEDS: BACLOFEN 10 MG TAB PO SCH (21:47)
[2021-11-08] MEDS: BENZONATATE 100 MG CAPSULE PO SCH (21:47)
[2021-11-08] MEDS: DOFETILIDE 125 MCG CAPSULE PO SCH (21:50)
[2021-11-08] MEDS: carvediloL 6.25 MG TAB PO SCH (21:51)
[2021-11-08] MEDS: ENOXAPARIN INJ 40 MG/0.4 ML SYR SQ SCH (21:52)
[2021-11-08] MEDS: INSULIN ASPART PER UNIT SC SCH (22:19)
[2021-11-08] MEDS: ALBUT/IPRATROP 3MG/0.5MG NEB 3 ML VIAL NEB SCH (23:55)
[2021-11-09 00:20] LABS: Appearance Urine Turbid (Clear); Bacteria Urine Automated 4+ (Negative); Bilirubin Urine Negative (Negative); Blood Urine 1+ (Negative); Color Urine Dark Yellow; Epithelial Cell Urine Auto >30 /lpf (0-5); Glucose Urine UA 3+ (Negative); Ketones Urine Trace (Negative); Leukocyte Esterase Urine 2+ (Negative); Nitrite Urine Negative (Negative); Protein Urine 1+ (Negative); RBC Urine Automated 0-4 /hpf (0-4); Specific Gravity Urine 1.022 (1.000-1.030); Urobilinogen Urine Negative (Negative); WBC Urine Automated >30 /hpf (0-5)
[2021-11-09] MEDS: INSULIN ASPART PER UNIT SC SCH ×6 (00:58→21:15)
[2021-11-09] MEDS: CARBOHYDRATES FOR HYPOGLYCEMIA PO PRN (04:21)
[2021-11-09] MEDS: LEVOTHYROXINE SODIUM 125 MCG TABLET PO SCH (04:24)
[2021-11-09 07:24] LABS: Hematocrit (blood only) 28.8 % (37-47); Hemoglobin 8.4 g/dL (12.0-16.0); Mean Corpuscular Hemoglobin 23.5 pg (25-34); Mean Corpuscular Hgb Conc 29.2 g/dL (32-36); Mean Corpuscular Volume 80.7 fL (80-100); Mean Platelet Volume 9.3 fL (7.4-10.4); Nucleated RBC # (auto) 0.02 K/uL (0-0); Nucleated RBC % (auto) 0.2 %; Platelet Count 203 K/uL (130-400); RDW Coefficient of Variation 16.7 % (11.5-14.5); RDW Standard Deviation 49.1 fL (36.4-46.3); Red Blood Count 3.57 M/uL (4.2-5.4); White Blood Count 9.82 K/uL (4.8-10.8)
[2021-11-09 07:48] LABS: BUN Creatinine Ratio 23.4 (10-20); Calcium 8.6 mg/dl (8.5-10.1); Creatinine Clr Calc Pharmacy 58.3 ml/min; Est GFR (African American) 56.7 ml/min; Est GFR (Non-African American) 48.9 ml/min; Potassium 4.3 mmol/L (3.5-5.1)
[2021-11-09 08:09] LABS: Estimated Average Glucose 209 mg/dl; Hemoglobin A1C 8.9 % (4.5-5.6)
[2021-11-09] MEDS: ASCORBIC ACID 500 MG TAB PO SCH (08:28)
[2021-11-09] MEDS: FERROUS SULFATE 325 MG TAB PO SCH (08:29)
[2021-11-09] MEDS: CHOLECALCIFEROL 1,000 UNITS 25 MCG TAB PO SCH (08:29)
[2021-11-09] MEDS: CYANOCOBALAMIN (B-12) 500 MCG TABLET PO SCH (08:29)
[2021-11-09] MEDS: MULTIVITAMIN TAB PO SCH (08:30)
[2021-11-09] MEDS: FOLIC ACID 1 MG TAB PO SCH (08:30)
[2021-11-09] MEDS: MAGNESIUM OXIDE 400 MG TAB PO SCH (08:30)
[2021-11-09] MEDS: ALBUT/IPRATROP 3MG/0.5MG NEB 3 ML VIAL NEB SCH (08:30)
[2021-11-09] MEDS: TORSEMIDE 10 MG TAB PO SCH (08:31)
[2021-11-09] MEDS: DOFETILIDE 125 MCG CAPSULE PO SCH ×2 (08:31→20:03)
[2021-11-09] MEDS: BENZONATATE 100 MG CAPSULE PO SCH ×3 (08:31→20:02)
[2021-11-09] MEDS: dexAMETHasone 6 MG in SYRINGE 0 ML IV SCH (08:32)
[2021-11-09] MEDS: BACLOFEN 10 MG TAB PO SCH ×2 (08:32→20:02)
[2021-11-09] MEDS: carvediloL 6.25 MG TAB PO SCH ×2 (08:32→20:02)
[2021-11-09] MEDS: POTASSIUM CHLORIDE 10 MEQ TABCR PO SCH (08:33)
[2021-11-09] MEDS: OXYCODONE IR 10 MG PO PRN ×2 (08:59→17:56)
[2021-11-09] MEDS ORDERED: NON-FORMULARY MEDICATION (Ferrous Fumarate-Vitamin C 200 mg (66 mg iron)-125 mg Tablet) PO SCH (09:00)
[2021-11-09] MEDS ORDERED: INSULIN HUMAN NPH SC SCH (09:00)
--- NOTE | 2021-11-09 09:49 | Pharmacy Report ---
Pharmacy Glycemic Short Note 2 - Date of Service November 09, 2021 - Glycemic Short BSG Results (Last 24 hours): 11/08/21 11/08/21 11/08/21 16:04 19:21 20:35 Glucose 430 H* POC Glucose 316 H* 247 H 11/09/21 11/09/21 11/09/21 00:42 04:00 04:02 Glucose POC Glucose 214 H 68 L* 65 L* 11/09/21 11/09/21 11/09/21 04:36 06:49 08:08 Glucose 97 POC Glucose 107 H 150 H OUTPATIENT ANTIDIABETIC REGIMEN: * Metformin 500 mg PO qpm * Recently started on prednisone taper * HbA1c: 8.9% (11/09/21) ASSESSMENT: * is a 76 year old female who presented to ED on 11/08/21 with increased shortness of breath with positive COVID test ~10 days ago * Prednisone taper started ~10 days ago * Pertinent PMH includes CKD, COPD, CHF, T2DM, and morbid obesity * BSGs elevated on presentation (430 mg/dL), patient also started on IV dexamethasone 6 mg daily * Lantus ordered last evening with aggressive Novolog parameters resulting in asymptomatic hypoglycemic episode this morning (68 mg/dL) * Will plan to switch to NPH insulin to be given with IV dexamethasone in AM * will be slightly conservative with initial dosing in light of hypoglycemia this morning and based on age/comorbidities PLAN FOR INPATIENT GLYCEMIC CONTROL: * Hold outpatient oral diabetes medications * Basal insulin * NPH 25 units (~0.3 unit/kg adjusted body weight) SC daily with IV d examethasone * Bolus insulin * NovoLog per scale ACHS or Q6hrs while NPO * Goal Range: Low 110 mg/dL - High 140 mg/dL * Correction Factor: 15 mg/dL/unit * Nutritional / Prandial insulin per carb ratio of 1 unit per 5 grams CHO consumed PLAN FOR DISCHARGE: * HbA1c of 8.9% suggests poor outpatient glycemic control, but may also be in part due to recent outpatient prednisone usage * Reasonable goal for this patient would be HbA1c less than 8% in light of age and comorbidities * eGFR ~40-50 mL/min/1.73 m2 * Given CKD (w/ eGFR > 30) and CHF, patient would likely benefit from addition of SGLT-2 inhibitor, i.e. empagliflozin 10 mg PO daily * Also, reasonable to increase metformin to 500 mg PO BIDM with careful monitoring of renal function thereafter
[2021-11-09] MEDS: oxyCODONE HCL 20 MG TABCR (OxyCONTIN) PO PRN ×2 (10:46→21:13)
[2021-11-09] MEDS ORDERED: FUROSEMIDE 40 MG/4 ML VIAL IV ONE (12:20)
--- NOTE | 2021-11-09 14:36 | Hospitalist Progress Note ---
Date of Service November 09, 2021 Assessment & Plan (1) Acute on chronic respiratory failure with hypoxia: Plan: This is a 76yo F with PMH of COPD and chronic hypoxemic respiratory failure on 3L NC O2, chronic diastolic CHF, DM II, HTN, HLD, ZEYAD, paroxysmal A Fib anti coagulated on Xarelto, anemia of chronic disease, chronic cor pulmonale, morbid obesity, CKD stage III, chronic pain syndrome on narcotics and other medical problems listed below who presents with worsening SOB and cough in setting of known covid. Took a home test 10 days ago that was positive. Has increased from baseline 3L NC O2 to 5L over the past few days in setting of worsening SOB and productive cough Follows with [facility] pulm and was prescribed prednisone taper (down to 10mg daily) and Cefdinir course (completed) CXR with extensive patchy interstitial and alveolar opacities bilaterally c haracteristic of a viral type pneumonitis and probable Covid 19 pneumonia Currently 96% saturation on 8L Oxymask, appears comfortable IV dexamethasone 6mg daily, out of window for remdesivir Continue scheduled duonebs, flutter valve, incentive spirometry, Tessalon pearles, home inhalers as needed She has been feeling better Will give her 60 of Lasix IV today and continue current management (2) Pneumonia due to COVID-19 virus: Plan: Management as above (3) COPD (chronic obstructive pulmonary disease): (4) Acute hyperglycemia: Plan: In setting of outpatient prednisone taper. Initial BSG >400, give IV insulin in ED. Consulting glycemic mgmt in setting of ongoing steroids Hemoglobin A1c is high at 8.9 (5) Paroxysmal atrial fibrillation: Plan: Continue Carvedilol, Tikosyn. HR currently 78. Previously on Xarelto but discontinued 9 months ago due to hematuria, hematochezia Heart rate remains controlled (6) DM type 2 (diabetes mellitus, type 2): Plan: Hold home agents SSI while in-patient Glycemic consult placed while receiving IV steroids, presented with BSG >400 BSG AC HS Hemoglobin A1c is high at 8.9 (7) Hypothyroidism: Plan: TSH 0.221, Free T4 high at 1.96. Reduced levothyroxine dose from 150 to 125 mcg (8) Chronic diastolic CHF (congestive heart failure): Plan: Continue torsemide, carvedilol. Watching volume status closely We will hold torsemide and give Lasix for the time being intravenous (9) CKD (chronic kidney disease), stage III: Plan: Kidney function appears to be at baseline at 1.28 (bl ~1.2-1.4) Monitor PRP (10) Chronic pain syndrome: Plan: Arthritis of multiple joints. Home regimen includes Oxycontin 20mg BID PRN and IR oxycodone 10mg Q6H PRN Continue, monitor closely (11) ZEYAD (obstructive sleep apnea): Plan: On 3L NC continuously at home DVT Ppx: SQ lovenox Code status: FULL PCP: [facility] Dispo: Admitted to PCU Patient seen in collaboration with Dr. El. Please see addendum. Admission and Anticipated Discharge Date Admission Date: November 08, 2021 Subjective 11/09/2021 The patient was seen and examined in telemetry unit and in the COVID room She has been feeling a little better Still complains cough with chest pain and shortness of breath Review of Systems Review of Systems: All systems reviewed and are unremarkable except as noted below Respiratory: Mild shortness of breath at rest Physical Exam Physical Exam: Lying in bed with minimal distress due to shortness of breath Constitutional: well developed, well nourished, + ill appearing and + morbidly obese Eyes: PERRL, conjunctivae normal, anicteric sclerae ENMT: external ear and nose normal, oropharynx normal Neck: trachea midline, no thyromegaly Respiratory: + respiratory distress (Mild shortness of breath at rest); no retractions Auscultation: + diminished lung sounds and + crackles (Minimal bibasilar crackles) Gastrointestinal (Abdomen): Inspection/Auscultation: normal bowel sounds; abdomen not distended Percussion/Palpation: abdomen soft; abdomen nontender Musculoskeletal: No acute arthritis in any joint Neurologic: Alert, awake and oriented x3 Results & Data Results & Data ([facility]) Vital Signs (Past 12 Hours) Vital Signs Temp Pulse Pulse Resp BP Pulse Ox 11/09/21 11:00 37.0 C 68 20 122/63 93 11/09/21 08:00 62 11/09/21 07:24 36.9 C 68 21 152/82 H 92 11/09/21 04:07 36.6 C 106 H 24 126/70 90 Laboratory Results Short CBC 11/08/21 11/09/21 Range/Units 16:04 06:49 WBC 11.58 H 9.82 (4.8-10.8) K/uL Hgb 9.3 L 8.4 L (12.0-16.0) g/dL Hct 31.7 L 28.8 L (37-47) % Plt Count 300 203 (130-400) K/uL BMP 11/08/21 11/09/21 16:04 06:49 Sodium 132 L 136 Potassium 4.5 4.3 Chloride 88 L 96 L Carbon Dioxide 33 H 33 H BUN 25 H 26 H Creatinine 1.28 H 1.11 Glucose 430 H* 97 Calcium 9.1 8.6 Cardiac Enzymes 11/08/21 Range/Units 16:04 Troponin I < 0.03 (0-0.04) ng/ml Liver Function 11/08/21 Range/Units 16:04 Total Bilirubin 0.5 (0.2-1.0) mg/dl AST 10 L (13-39) U/L ALT 11 (7-52) U/L Alkaline Phosphatase 57 (34-104) U/L Albumin 3.2 L (3.4-5.0) gm/dl Urine 11/09/21 Range/Units 00:10 Urine Color Dark Yellow Urine Appearance Turbid A (Clear) Urine pH 5.0 (4.5-7.5) Ur Specific [place] 1.022 (1.000-1.030) Urine Protein 1+ H (Negative) Urine Glucose (UA) 3+ H (Negative) Medications Administered Current Inpatient Medications Acetaminophen (Acetaminophen 325 Mg Tab) 650 mg PO Q4H PRN PRN Reason: Pain or Fever Stop: 12/08/21 20:19 Albuterol (Albuterol Hfa 8 Gm Inhaler) 2 puffs INH Q6R PRN PRN Reason: Shortness Of Breath Stop: 12/08/21 21:14 Albuterol (Albut/Ipratrop 3mg/0.5mg Neb 3 Ml Vial) 3 ml NEB Q4R PRN; Protocol PRN Reason: Shortness Of Breath Or Wheezing Stop: 12/09/21 08:24 Ascorbic Acid (Ascorbic Acid 500 Mg Tab) 250 mg PO DAILY [facility] Stop: 12/09/21 08:59 Last Admin: 11/09/21 08:28 Dose: 250 mg Documented by: Baclofen (Baclofen 10 Mg Tab) 5 mg PO BID YELITZA Stop: 12/08/21 21:29 Last Admin: 11/09/21 08:32 Dose: 5 mg Documented by: Benzonatate (Benzonatate 100 Mg Capsule) 100 mg PO TID YELITZA Stop: 12/08/21 21:29 Last Admin: 11/09/21 08:31 Dose: 100 mg Documented by: Carvedilol (Carvedilol 6.25 Mg Tab) 6.25 mg PO BID YELITZA Stop: 12/08/21 21:29 Last Admin: 11/09/21 08:32 Dose: 6.25 mg Documented by: Cyanocobalamin (Cyanocobalamin 500 Mcg Tablet (Vitamin B-12)) 500 mcg PO DAILY YELITZA Stop: 12/09/21 08:59 Last Admin: 11/09/21 08:29 Dose: 500 mcg Documented by: Dextromethorphan Polymer Complex (Dextromethorphan Polymr Complx 30 Mg/5 Ml Udp) 30 mg PO Q6H PRN PRN Reason: Cough Stop: 12/08/21 20:19 Dextrose (Dextrose 50% 50 Ml Syringe) 25 - 50 ml IV UD PRN; Protocol PRN Reason: Hypoglycemia Protocol Stop: 12/08/21 21:44 Dofetilide (Dofetilide 125 Mcg Capsule) 250 mcg PO BID [facility] Stop: 12/08/21 21:29 Last Admin: 11/09/21 08:31 Dose: 250 mcg Documented by: Enoxaparin Sodium (Enoxaparin Inj 40 Mg/0.4 Ml Syr) 40 mg SQ HS YELITZA Stop: 12/08/21 21:29 Last Admin: 11/08/21 21:52 Dose: 40 mg Documented by: Estrogens Conjugated (Premarin Vag Crm 14 Appln/30 Gm Tube) 1 appln PV MoWeFr@0900 YELITZA Stop: 12/10/21 08:59 Ferrous Sulfate (Ferrous Sulfate 325 Mg Tab) 325 mg PO DAILY YELITZA Stop: 12/09/21 08:59 Last Admin: 11/09/21 08:29 Dose: 325 mg Documented by: Folic Acid (Folic Acid 1 Mg Tab) 1 mg PO DAILY YELITZA Stop: 12/09/21 08:59 Last Admin: 11/09/21 08:30 Dose: 1 mg Documented by: Glucagon (Glucagon For Inj 1 Mg Vial) 1 mg IM UD PRN; Protocol PRN Reason: Hypoglycemia Protocol Stop: 12/08/21 21:44 Glucose (Glucose 40% Gel 15 Gm Tube) 15 - 30 gm PO UD PRN; Protocol PRN Reason: Hypoglycemia Protocol Stop: 12/08/21 21:44 Glucose (Glucose 10 Tabs/Tube) 4 - 8 tabs PO UD PRN; Protocol PRN Reason: Hypoglycemia Protocol Stop: 12/08/21 21:44 Hydrocortisone (Hydrocortisone Hc 2.5% Crm 30gm Tube) 1 appln EXT BID PRN PRN Reason: hemorrhoid Stop: 12/08/21 20:19 Dexamethasone 6 mg/ Syringe 1.5 mls @ 1 mls/min IV Q24H [facility] Stop: 12/08/21 17:59 Last Admin: 11/09/21 08:32 Dose: 1 mls/min Documented by: Insulin Aspart (Insulin Aspart Per Unit) 0 units SC ACHS [facility]; Protocol Stop: 12/08/21 21:29 Last Admin: 11/09/21 12:41 Dose: 20 units Documented by: Insulin Aspart (Insulin Aspart Per Unit) 0 units SC 0000,0400 [facility]; Protocol Stop: 11/10/21 04:01 Insulin Human NPH (Insulin Human Nph) 25 units SC DAILY [facility] Stop: 12/09/21 08:59 Last Admin: 11/09/21 11:43 Dose: 25 units Documented by: Levothyroxine Sodium (Levothyroxine Sodium 125 Mcg Tablet) 125 mcg PO DAILYBB [facility] Stop: 12/09/21 06:29 Last Admin: 11/09/21 04:24 Dose: 125 mcg Documented by: Magnesium Oxide (Magnesium Oxide 400 Mg Tab) 400 mg PO DAILY [facility]; Protocol Stop: 12/09/21 08:59 Last Admin: 11/09/21 08:30 Dose: 400 mg Documented by: Meclizine HCl (Meclizine Hcl 25 Mg Tab) 25 mg PO Q8H PRN PRN Reason: dizziness Stop: 12/08/21 21:14 Miscellaneous (Carbohydrates For Hypoglycemia ) 15 - 30 gm PO UD PRN PRN Reason: Hypoglycemia Treatment Stop: 12/08/21 21:44 Last Admin: 11/09/21 04:21 Dose: 27 gm Documented by: Miscellaneous Information (Pharmacy Glycemic Mgmt Consult) 1 ea N/A UD PRN PRN Reason: Consult Stop: 12/08/21 17:52 Multivitamins (Multivitamin Tab) 1 tab PO DAILY [facility] Stop: 12/09/21 08:59 Last Admin: 11/09/21 08:30 Dose: 1 tab Documented by: *Oxycodone Ir 10 Mg* Patient's Own Controlled Med 1 1 ea PO Q6H PRN PRN Reason: Pain Stop: 11/22/21 22:44 *Oxycodone Ir 10 Mg* Non-Formulary Patient's Own Med 1 ea PO Q6H PRN PRN Reason: Pain Stop: 12/08/21 22:44 Last Admin: 11/09/21 08:59 Dose: 10 mg Documented by: Oxycodone HCl (Oxycodone Hcl 20 Mg Tabcr (Oxycontin)) 20 mg PO BID PRN PRN Reason: Pain Stop: 11/22/21 20:19 Last Admin: 11/09/21 10:46 Dose: 20 mg Documented by: Pantoprazole Sodium (Pantoprazole 40 Mg Tab) 40 mg PO DAILY PRN PRN Reason: Abdominal Pain Stop: 12/08/21 20:19 Polyethylene Glycol (Polyethylene (Miralax) 17 Gm Pack) 17 gm PO DAILY PRN PRN Reason: Constipation Stop: 12/08/21 20:19 Potassium Chloride (Potassium Chloride 10 Meq Tabcr) 10 meq PO QAM [facility] Stop: 12/09/21 08:59 Last Admin: 11/09/21 08:33 Dose: 10 meq Documented by: Spironolactone (Spironolactone 12.5 Mg Tab) 12.5 mg PO MoWeFr@0900 [facility] Stop: 12/10/21 08:59 Torsemide (Torsemide 10 Mg Tab) 10 mg PO QAM [facility] Stop: 12/09/21 08:59 Last Admin: 11/09/21 08:31 Dose: 10 mg Documented by: Vitamin D (Cholecalciferol 1,000 Units 25 Mcg Tab) 1,000 units PO DAILY [facility] Stop: 12/09/21 08:59 Last Admin: 11/09/21 08:29 Dose: 1,000 units Documented by: (1) COPD (chronic obstructive pulmonary disease) COPD type: unspecified COPD Qualified Code(s): J44.9 - Chronic obstructive pulmonary disease, unspecified
[2021-11-09] MEDS: ENOXAPARIN INJ 40 MG/0.4 ML SYR SQ SCH (20:05)
[2021-11-09] MEDS ORDERED: LEVALBUTEROL HCL 1.25 MG/3 ML NEB NEB PRN (20:19)
[2021-11-09] MEDS ORDERED: dilTIAZem HCl 5 MG/ML 5 ML VIAL IV STA (22:26)
[2021-11-09] MEDS ORDERED: dilTIAZem HCl 5 MG/ML 5 ML VIAL IV ONE (22:28)
[2021-11-10] MEDS: INSULIN ASPART PER UNIT SC SCH ×6 (00:12→21:19)
[2021-11-10] MEDS: LEVOTHYROXINE SODIUM 125 MCG TABLET PO SCH (05:03)
[2021-11-10] MEDS: OXYCODONE IR 10 MG PO PRN ×2 (05:03→16:04)
[2021-11-10] MEDS: oxyCODONE HCL 20 MG TABCR (OxyCONTIN) PO PRN ×2 (06:29→21:14)
[2021-11-10 07:30] LABS: Hemoglobin 8.5 g/dL (12.0-16.0); Mean Corpuscular Hemoglobin 23.6 pg (25-34); Mean Corpuscular Hgb Conc 29.3 g/dL (32-36); Mean Corpuscular Volume 80.6 fL (80-100); Mean Platelet Volume 9.6 fL (7.4-10.4); Platelet Count 292 K/uL (130-400); RDW Coefficient of Variation 16.7 % (11.5-14.5); RDW Standard Deviation 48.7 fL (36.4-46.3)
[2021-11-10 07:56] LABS: BUN Creatinine Ratio 22.9 (10-20); Calcium 8.3 mg/dl (8.5-10.1); Creatinine Clr Calc Pharmacy 38.8 ml/min; Est GFR (African American) 34.8 ml/min; Potassium 4.3 mmol/L (3.5-5.1)
[2021-11-10] MEDS: CHOLECALCIFEROL 1,000 UNITS 25 MCG TAB PO SCH (08:47)
[2021-11-10] MEDS: DOFETILIDE 125 MCG CAPSULE PO SCH ×2 (08:47→21:19)
[2021-11-10] MEDS: carvediloL 6.25 MG TAB PO SCH ×2 (08:47→21:19)
[2021-11-10] MEDS: POTASSIUM CHLORIDE 10 MEQ TABCR PO SCH ×2 (08:48→08:57)
[2021-11-10] MEDS: MULTIVITAMIN TAB PO SCH (08:48)
[2021-11-10] MEDS: BACLOFEN 10 MG TAB PO SCH ×2 (08:48→21:19)
[2021-11-10] MEDS: ASCORBIC ACID 500 MG TAB PO SCH (08:48)
[2021-11-10] MEDS: FERROUS SULFATE 325 MG TAB PO SCH (08:48)
[2021-11-10] MEDS: FOLIC ACID 1 MG TAB PO SCH (08:49)
[2021-11-10] MEDS: CYANOCOBALAMIN (B-12) 500 MCG TABLET PO SCH (08:49)
[2021-11-10] MEDS: BENZONATATE 100 MG CAPSULE PO SCH ×3 (08:49→21:19)
[2021-11-10] MEDS: MAGNESIUM OXIDE 400 MG TAB PO SCH (08:50)
[2021-11-10] MEDS: SPIRONOLACTONE 12.5 MG TAB PO SCH (08:50)
[2021-11-10] MEDS: dexAMETHasone 6 MG in SYRINGE 0 ML IV SCH (08:50)
[2021-11-10] MEDS ORDERED: INSULIN HUMAN NPH SC SCH (09:00)
[2021-11-10] MEDS: INSULIN HUMAN NPH SC SCH (09:07)
[2021-11-10] MEDS: PREMARIN VAG CRM 14 APPLN/30 GM TUBE PV SCH (12:41)
[2021-11-10] MEDS: ALBUT/IPRATROP 3MG/0.5MG NEB 3 ML VIAL NEB PRN ×2 (12:59→22:32)
--- NOTE | 2021-11-10 13:10 | Pharmacy Report ---
Pharmacy Glycemic Short Note 2 - Date of Service November 10, 2021 - Glycemic Short BSG Results (Last 24 hours): 11/09/21 11/09/21 11/09/21 16:01 16:51 20:20 Glucose POC Glucose 204 H 147 H 123 H 11/10/21 11/10/21 11/10/21 00:05 03:34 06:44 Glucose 201 H POC Glucose 133 H 126 H 11/10/21 11/10/21 07:57 12:00 Glucose POC Glucose 202 H 235 H OUTPATIENT ANTIDIABETIC REGIMEN: * Metformin 500 mg PO qpm * Recently started on prednisone taper * HbA1c: 8.9% (11/09/21) ASSESSMENT: 11/10 * BSGs reasonably well-controlled yesterday, sans one outlier BSG elevation at lunch (279 mg/dL) * Received 64 units of insulin (25 units of NPH and 39 units of prandial/correctional bolus) * Continues on dexamethasone 6 mg IV daily - will increase NPH today and tighten AM Novolog * Lunch BSG elevated again today, plan to further tighten AM Novolog tomorrow * STACY noted today, SCr 1.11 -> 1.66 mg/dL 11/09 * is a 76 year old female who presented to ED on 11/08/21 with increased shortness of breath with positive COVID test ~10 days ago * Prednisone taper started ~10 days ago * Pertinent PMH includes CKD, COPD, CHF, T2DM, and morbid obesity * BSGs elevated on presentation (430 mg/dL), patient also started on IV dexamethasone 6 mg daily * Lantus ordered last evening with aggressive Novolog parameters resulting in asymptomatic hypoglycemic episode this morning (68 mg/dL) * Will plan to switch to NPH insulin to be given with IV dexamethasone in AM * will be slightly conservative with initial dosing in light of hypoglycemia this morning and based on age/comorbidities PLAN FOR INPATIENT GLYCEMIC CONTROL: * Hold outpatient oral diabetes medications * Basal insulin * NPH 30 units SC daily with IV dexamethasone * Bolus insulin * NovoLog per scale ACHS or Q6hrs while NPO * Goal Range: Low 110 mg/dL - High 140 mg/dL * Correction Factor: 15 mg/dL/unit * Nutritional / Prandial insulin per carb ratio of 1 unit per 3 grams CHO consumed with breakfast, 1 unit per 5 grams CHO consumed with lunch, dinner, HS PLAN FOR DISCHARGE: * HbA1c of 8.9% suggests poor outpatient glycemic control, but may also be in part due to recent outpatient prednisone usage * Reasonable goal for this patient would be HbA1c less than 8% in light of age and comorbidities * baseline eGFR ~40-50 mL/min/1.73 m2 - assuming return to this baseline at time of discharge * Patient would likely benefit from addition of SGLT-2 inhibitor, i.e. empagliflozin 10 mg PO daily in light of CKD (w/ eGFR > 30) and CHF * Okay to continue metformin
--- NOTE | 2021-11-10 16:07 | Hospitalist Progress Note ---
Date of Service November 10, 2021 Assessment & Plan (1) Acute on chronic respiratory failure with hypoxia: Plan: This is a 76yo F with PMH of COPD and chronic hypoxemic respiratory failure on 3L NC O2, chronic diastolic CHF, DM II, HTN, HLD, ZEYAD, paroxysmal A Fib anti coagulated on Xarelto, anemia of chronic disease, chronic cor pulmonale, morbid obesity, CKD stage III, chronic pain syndrome on narcotics and other medical problems listed below who presents with worsening SOB and cough in setting of known covid. Took a home test 10 days ago that was positive. Has increased from baseline 3L NC O2 to 5L over the past few days in setting of worsening SOB and productive cough Follows with [facility] pulm and was prescribed prednisone taper (down to 10mg daily) and Cefdinir course (completed) CXR with extensive patchy interstitial and alveolar opacities bilaterally c haracteristic of a viral type pneumonitis and probable Covid 19 pneumonia Currently 96% saturation on 8L Oxymask, appears comfortable IV dexamethasone 6mg daily, out of window for remdesivir Continue scheduled duonebs, flutter valve, incentive spirometry, Tessalon pearles, home inhalers as needed Will give her 60 of Lasix IV today and continue current management Creatinine is a little bit high today so will not give any more Lasix We will try Hycodan to suppress cough Continue current management (2) Pneumonia due to COVID-19 virus: Plan: Management as above (3) COPD (chronic obstructive pulmonary disease): Plan: Complicating COVID-pneumonia Doubt any COPD exacerbation (4) Acute hyperglycemia: Plan: In setting of outpatient prednisone taper. Initial BSG >400, give IV insulin in ED. Consulting glycemic mgmt in setting of ongoing steroids Hemoglobin A1c is high at 8.9 (5) Paroxysmal atrial fibrillation: Plan: Continue Carvedilol, Tikosyn. HR currently 78. Previously on Xarelto but discontinued 9 months ago due to hematuria, hematochezia Heart rate remains controlled Has had tachycardia last night and received 10 mg intravenous Cardizem She has been having occasional tachycardia at home for the last few weeks or so and waiting to see a smelter operator as an outpatient Heart rate remains stable as of today (6) DM type 2 (diabetes mellitus, type 2): Plan: Hold home agents SSI while in-patient Glycemic consult placed while receiving IV steroids, presented with BSG >400 BSG AC HS Hemoglobin A1c is high at 8.9 (7) Hypothyroidism: Plan: TSH 0.221, Free T4 high at 1.96. Reduced levothyroxine dose from 150 to 125 mcg (8) Chronic diastolic CHF (congestive heart failure): Plan: Continue torsemide, carvedilol. Watching volume status closely We will hold torsemide and give Lasix for the time being intravenous (9) CKD (chronic kidney disease), stage III: Plan: Kidney function appears to be at baseline at 1.28 (bl ~1.2-1.4) Monitor PRP (10) Chronic pain syndrome: Plan: Arthritis of multiple joints. Home regimen includes Oxycontin 20mg BID PRN and IR oxycodone 10mg Q6H PRN Continue, monitor closely (11) ZEYAD (obstructive sleep apnea): Plan: On 3L NC continuously at home DVT Ppx: SQ lovenox Code status: FULL PCP: Cortney Dispo: Admitted to PCU Patient seen in collaboration with Dr. El. Please see addendum. Admission and Anticipated Discharge Date Admission Date: November 08, 2021 Subjective 11/09/2021 The patient was seen and examined in telemetry unit and in the COVID room She has been feeling a little better Still complains cough with chest pain and shortness of breath 11/10/2021 The patient was seen and examined in telemetry unit and in the COVID room She has been feeling better and complains to have more cough and some abdominal discomfort She denies any chest pain and/or palpitation Has been requiring about 4 L of oxygen to maintain saturation Review of Systems Review of Systems: All systems reviewed and are unremarkable except as noted below Respiratory: Mild shortness of breath at rest Physical Exam Physical Exam: Lying in bed with minimal distress due to shortness of breath Constitutional: well developed, well nourished, + ill appearing and + morbidly obese Eyes: PERRL, conjunctivae normal, anicteric sclerae ENMT: external ear and nose normal, oropharynx normal Neck: trachea midline, no thyromegaly Respiratory: + respiratory distress (Mild shortness of breath at rest); no retractions Auscultation: + diminished lung sounds and + crackles (Minimal bibasilar crackles) Cardiovascular: Rate/Rhythm: regular rate and regular rhythm; not tachycardic Heart Sounds: normal S1 and normal S2; no murmur Extremities: + edema (Trace edema bilaterally) Gastrointestinal (Abdomen): Inspection/Auscultation: normal bowel sounds; abdomen not distended Percussion/Palpation: abdomen soft; abdomen nontender Musculoskeletal: No acute arthritis in any joint Neurologic: Alert, awake and oriented x3 Results & Data Results & Data ([facility]) Vital Signs (Past 12 Hours) Vital Signs Temp Pulse Pulse Resp BP Pulse Ox 11/10/21 15:06 36.9 C 75 20 123/63 95 11/10/21 13:01 72 18 94 11/10/21 11:12 36.9 C 77 18 146/84 H 95 11/10/21 07:55 36.9 C 79 20 120/57 L 93 11/10/21 07:19 80 Laboratory Results Short CBC 11/10/21 Range/Units 06:44 WBC 11.60 H (4.8-10.8) K/uL Hgb 8.5 L (12.0-16.0) g/dL Hct 29.0 L (37-47) % Plt Count 292 (130-400) K/uL BMP 11/10/21 06:44 Sodium 132 L Potassium 4.3 Chloride 92 L Carbon Dioxide 35 H BUN 38 H Creatinine 1.66 H D Glucose 201 H Calcium 8.3 L Medications Administered Current Inpatient Medications Acetaminophen (Acetaminophen 325 Mg Tab) 650 mg PO Q4H PRN PRN Reason: Pain or Fever Stop: 12/08/21 20:19 Albuterol (Albuterol Hfa 8 Gm Inhaler) 2 puffs INH Q6R PRN PRN Reason: Shortness Of Breath Stop: 12/08/21 21:14 Albuterol (Albut/Ipratrop 3mg/0.5mg Neb 3 Ml Vial) 3 ml NEB Q4R PRN; Protocol PRN Reason: Shortness Of Breath Or Wheezing Stop: 12/09/21 08:24 Last Admin: 11/10/21 12:59 Dose: 3 ml Documented by: Ascorbic Acid (Ascorbic Acid 500 Mg Tab) 250 mg PO DAILY [facility] Stop: 12/09/21 08:59 Last Admin: 11/10/21 08:48 Dose: 250 mg Documented by: Baclofen (Baclofen 10 Mg Tab) 5 mg PO BID [facility] Stop: 12/08/21 21:29 Last Admin: 11/10/21 08:48 Dose: 5 mg Documented by: Benzonatate (Benzonatate 100 Mg Capsule) 100 mg PO TID [facility] Stop: 12/08/21 21:29 Last Admin: 11/10/21 13:04 Dose: 100 mg Documented by: Carvedilol (Carvedilol 6.25 Mg Tab) 6.25 mg PO BID [facility] Stop: 12/08/21 21:29 Last Admin: 11/10/21 08:47 Dose: 6.25 mg Documented by: Cyanocobalamin (Cyanocobalamin 500 Mcg Tablet (Vitamin B-12)) 500 mcg PO DAILY [facility] Stop: 12/09/21 08:59 Last Admin: 11/10/21 08:49 Dose: 500 mcg Documented by: Dextrose (Dextrose 50% 50 Ml Syringe) 25 - 50 ml IV UD PRN; Protocol PRN Reason: Hypoglycemia Protocol Stop: 12/08/21 21:44 Dofetilide (Dofetilide 125 Mcg Capsule) 250 mcg PO BID [facility] Stop: 12/08/21 21:29 Last Admin: 11/10/21 08:47 Dose: 250 mcg Documented by: Enoxaparin Sodium (Enoxaparin Inj 40 Mg/0.4 Ml Syr) 40 mg SQ HS [facility] Stop: 12/08/21 21:29 Last Admin: 11/09/21 20:05 Dose: 40 mg Documented by: Estrogens Conjugated (Premarin Vag Crm 14 Appln/30 Gm Tube) 1 appln PV MoWeFr@0900 [facility] Stop: 12/10/21 08:59 Last Admin: 11/10/21 12:41 Dose: Not Given Documented by: Ferrous Sulfate (Ferrous Sulfate 325 Mg Tab) 325 mg PO DAILY [facility] Stop: 12/09/21 08:59 Last Admin: 11/10/21 08:48 Dose: 325 mg Documented by: Folic Acid (Folic Acid 1 Mg Tab) 1 mg PO DAILY [facility] Stop: 12/09/21 08:59 Last Admin: 11/10/21 08:49 Dose: 1 mg Documented by: Glucagon (Glucagon For Inj 1 Mg Vial) 1 mg IM UD PRN; Protocol PRN Reason: Hypoglycemia Protocol Stop: 12/08/21 21:44 Glucose (Glucose 40% Gel 15 Gm Tube) 15 - 30 gm PO UD PRN; Protocol PRN Reason: Hypoglycemia Protocol Stop: 12/08/21 21:44 Glucose (Glucose 10 Tabs/Tube) 4 - 8 tabs PO UD PRN; Protocol PRN Reason: Hypoglycemia Protocol Stop: 12/08/21 21:44 Hydrocodone Bit/Homatropine Methylb (Hydrocodone/Homatropine Syrup 5mg/1.5mg 5ml Udp) 5 ml PO Q6H PRN PRN Reason: Cough Stop: 11/24/21 15:37 Hydrocortisone (Hydrocortisone Hc 2.5% Crm 30gm Tube) 1 appln EXT BID PRN PRN Reason: hemorrhoid Stop: 12/08/21 20:19 Dexamethasone 6 mg/ Syringe 1.5 mls @ 1 mls/min IV Q24H [facility] Stop: 12/08/21 17:59 Last Admin: 11/10/21 08:50 Dose: 1 mls/min Documented by: Insulin Aspart (Insulin Aspart Per Unit) 0 units SC 0730 [facility]; Protocol Stop: 12/08/21 21:29 Insulin Aspart (Insulin Aspart Per Unit) 0 units SC 1130,1630,2100 [facility]; Protocol Stop: 12/10/21 11:29 Last Admin: 11/10/21 12:58 Dose: 13 units Documented by: Insulin Human NPH (Insulin Human Nph) 30 units SC DAILY [facility] Stop: 12/09/21 08:59 Last Admin: 11/10/21 09:07 Dose: 30 units Documented by: Levalbuterol HCl (Levalbuterol Hcl 1.25 Mg/3 Ml Neb) 1.25 mg NEB Q4H PRN; Protocol PRN Reason: Shortness Of Breath Or Wheezing Stop: 12/09/21 20:29 Levothyroxine Sodium (Levothyroxine Sodium 125 Mcg Tablet) 125 mcg PO DAILYBB [facility] Stop: 12/09/21 06:29 Last Admin: 11/10/21 05:03 Dose: 125 mcg Documented by: Magnesium Oxide (Magnesium Oxide 400 Mg Tab) 400 mg PO DAILY [facility]; Protocol Stop: 12/09/21 08:59 Last Admin: 11/10/21 08:50 Dose: 400 mg Documented by: Meclizine HCl (Meclizine Hcl 25 Mg Tab) 25 mg PO Q8H PRN PRN Reason: dizziness Stop: 12/08/21 21:14 Miscellaneous (Carbohydrates For Hypoglycemia ) 15 - 30 gm PO UD PRN PRN Reason: Hypoglycemia Treatment Stop: 12/08/21 21:44 Last Admin: 11/09/21 04:21 Dose: 27 gm Documented by: Miscellaneous Information (Pharmacy Glycemic Mgmt Consult) 1 ea N/A UD PRN PRN Reason: Consult Stop: 12/08/21 17:52 Multivitamins (Multivitamin Tab) 1 tab PO DAILY [facility] Stop: 12/09/21 08:59 Last Admin: 11/10/21 08:48 Dose: 1 tab Documented by: *Oxycodone Ir 10 Mg* Patient's Own Controlled Med 1 1 ea PO Q6H PRN PRN Reason: Pain Stop: 11/22/21 22:44 *Oxycodone Ir 10 Mg* Non-Formulary Patient's Own Med 1 ea PO Q6H PRN PRN Reason: Pain Stop: 12/08/21 22:44 Last Admin: 11/10/21 16:04 Dose: 10 mg Documented by: Oxycodone HCl (Oxycodone Hcl 20 Mg Tabcr (Oxycontin)) 20 mg PO BID PRN PRN Reason: Pain Stop: 11/22/21 20:19 Last Admin: 11/10/21 06:29 Dose: 20 mg Documented by: Pantoprazole Sodium (Pantoprazole 40 Mg Tab) 40 mg PO DAILY PRN PRN Reason: Abdominal Pain Stop: 12/08/21 20:19 Last Admin: 11/10/21 02:35 Dose: 40 mg Documented by: Polyethylene Glycol (Polyethylene (Miralax) 17 Gm Pack) 17 gm PO DAILY PRN PRN Reason: Constipation Stop: 12/08/21 20:19 Potassium Chloride (Potassium Chloride 10 Meq Tabcr) 10 meq PO QAM [facility] Stop: 12/09/21 08:59 Last Admin: 11/10/21 08:57 Dose: Not Given Documented by: Spironolactone (Spironolactone 12.5 Mg Tab) 12.5 mg PO MoWeFr@0900 [facility] Stop: 12/10/21 08:59 Last Admin: 11/10/21 08:50 Dose: 12.5 mg Documented by: Torsemide (Torsemide 10 Mg Tab) 10 mg PO QAM [facility] Stop: 12/09/21 08:59 Last Admin: 11/09/21 08:31 Dose: 10 mg Documented by: Vitamin D (Cholecalciferol 1,000 Units 25 Mcg Tab) 1,000 units PO DAILY [facility] Stop: 12/09/21 08:59 Last Admin: 11/10/21 08:47 Dose: 1,000 units Documented by: (1) COPD (chronic obstructive pulmonary disease) COPD type: unspecified COPD Qualified Code(s): J44.9 - Chronic obstructive pulmonary disease, unspecified
[2021-11-10] MEDS: ENOXAPARIN INJ 40 MG/0.4 ML SYR SQ SCH (21:20)
[2021-11-11] MEDS: LEVOTHYROXINE SODIUM 125 MCG TABLET PO SCH (06:18)
[2021-11-11] MEDS: BACLOFEN 10 MG TAB PO SCH ×2 (08:00→20:42)
[2021-11-11] MEDS: FOLIC ACID 1 MG TAB PO SCH (08:00)
[2021-11-11] MEDS: CYANOCOBALAMIN (B-12) 500 MCG TABLET PO SCH (08:00)
[2021-11-11] MEDS: MULTIVITAMIN TAB PO SCH (08:00)
[2021-11-11] MEDS: MAGNESIUM OXIDE 400 MG TAB PO SCH (08:02)
[2021-11-11] MEDS: FERROUS SULFATE 325 MG TAB PO SCH (08:02)
[2021-11-11] MEDS: DOFETILIDE 125 MCG CAPSULE PO SCH ×2 (08:02→20:41)
[2021-11-11] MEDS: BENZONATATE 100 MG CAPSULE PO SCH ×3 (08:03→20:41)
[2021-11-11] MEDS: ASCORBIC ACID 500 MG TAB PO SCH (08:04)
[2021-11-11] MEDS: POTASSIUM CHLORIDE 10 MEQ TABCR PO SCH (08:04)
[2021-11-11] MEDS: CHOLECALCIFEROL 1,000 UNITS 25 MCG TAB PO SCH (08:04)
[2021-11-11] MEDS: dexAMETHasone 6 MG in SYRINGE 0 ML IV SCH (08:06)
[2021-11-11] MEDS: carvediloL 6.25 MG TAB PO SCH ×2 (08:06→20:43)
[2021-11-11] MEDS: INSULIN ASPART PER UNIT SC SCH ×4 (08:52→21:30)
[2021-11-11] MEDS: INSULIN HUMAN NPH SC SCH (08:53)
[2021-11-11] MEDS: ALBUT/IPRATROP 3MG/0.5MG NEB 3 ML VIAL NEB PRN (12:31)
[2021-11-11] MEDS: HYDROcodone/HOMATROPINE SYRUP 5MG/1.5MG 5ML UDP PO PRN (12:44)
[2021-11-11] MEDS ORDERED: METHYLNALTREXONE BROMIDE 12 MG/0.6 ML VIAL SQ ONE (12:53)
--- NOTE | 2021-11-11 13:40 | Hospitalist Progress Note ---
Date of Service November 11, 2021 Assessment & Plan (1) Acute on chronic respiratory failure with hypoxia: Plan: This is a 76yo F with PMH of COPD and chronic hypoxemic respiratory failure on 3L NC O2, chronic diastolic CHF, DM II, HTN, HLD, ZEYAD, paroxysmal A Fib anti coagulated on Xarelto, anemia of chronic disease, chronic cor pulmonale, morbid obesity, CKD stage III, chronic pain syndrome on narcotics and other medical problems listed below who presents with worsening SOB and cough in setting of known covid. Took a home test 10 days ago that was positive. Has increased from baseline 3L NC O2 to 5L over the past few days in setting of worsening SOB and productive cough Follows with [facility] pulm and was prescribed prednisone taper (down to 10mg daily) and Cefdinir course (completed) CXR with extensive patchy interstitial and alveolar opacities bilaterally c haracteristic of a viral type pneumonitis and probable Covid 19 pneumonia Currently 96% saturation on 8L Oxymask, appears comfortable IV dexamethasone 6mg daily, out of window for remdesivir Continue scheduled duonebs, flutter valve, incentive spirometry, Tessalon pearles, home inhalers as needed Will give her 60 of Lasix IV today and continue current management Creatinine is a little bit high today so will not give any more Lasix We will try Hycodan to suppress cough Clinically much better and has been requiring 3 L to maintain saturation Will check PRP tomorrow and give Lasix if creatinine is fine Complains to have constipation Usual laxatives do not work as she is on narcotic pain medication She will be given 1 dose of Relistor (2) Pneumonia due to COVID-19 virus: Plan: Management as above (3) COPD (chronic obstructive pulmonary disease): Plan: Complicating COVID-pneumonia Doubt any COPD exacerbation (4) Acute hyperglycemia: Plan: In setting of outpatient prednisone taper. Initial BSG >400, give IV insulin in ED. Consulting glycemic mgmt in setting of ongoing steroids Hemoglobin A1c is high at 8.9 (5) Paroxysmal atrial fibrillation: Plan: Continue Carvedilol, Tikosyn. HR currently 78. Previously on Xarelto but discontinued 9 months ago due to hematuria, hematochezia Heart rate remains controlled Has had tachycardia last night and received 10 mg intravenous Cardizem She has been having occasional tachycardia at home for the last few weeks or so and waiting to see a competitive intelligence manager as an outpatient Heart rate remains stable as of today (6) DM type 2 (diabetes mellitus, type 2): Plan: Hold home agents SSI while in-patient Glycemic consult placed while receiving IV steroids, presented with BSG >400 BSG AC HS Hemoglobin A1c is high at 8.9 (7) Hypothyroidism: Plan: TSH 0.221, Free T4 high at 1.96. Reduced levothyroxine dose from 150 to 125 mcg (8) Chronic diastolic CHF (congestive heart failure): Plan: Continue torsemide, carvedilol. Watching volume status closely We will hold torsemide and give Lasix for the time being intravenous We will give her usual dose of Demadex today and continue (9) CKD (chronic kidney disease), stage III: Plan: Kidney function appears to be at baseline at 1.28 (bl ~1.2-1.4) Monitor PRP (10) Chronic pain syndrome: Plan: Arthritis of multiple joints. Home regimen includes Oxycontin 20mg BID PRN and IR oxycodone 10mg Q6H PRN Continue, monitor closely (11) ZEYAD (obstructive sleep apnea): Plan: On 3L NC continuously at home DVT Ppx: SQ lovenox Code status: FULL PCP: Cortney Dispo: Admitted to PCU Patient seen in collaboration with Dr. El. Please see addendum. Admission and Anticipated Discharge Date Admission Date: November 08, 2021 Subjective 11/09/2021 The patient was seen and examined in telemetry unit and in the COVID room She has been feeling a little better Still complains cough with chest pain and shortness of breath 11/10/2021 The patient was seen and examined in telemetry unit and in the COVID room She has been feeling better and complains to have more cough and some abdominal discomfort She denies any chest pain and/or palpitation Has been requiring about 4 L of oxygen to maintain saturation 11/11/2021 The patient was seen and examined in telemetry unit and in the COVID room She has been feeling a little better but complains to have constipation She wants to try Relistor as she is on narcotic pain medications Her cough is better and shortness of breath is better Review of Systems Review of Systems: All systems reviewed and are unremarkable except as noted below Respiratory: Mild shortness of breath at rest Physical Exam Physical Exam: Lying in bed with minimal distress due to shortness of breath Constitutional: well developed, well nourished, + ill appearing and + morbidly obese Eyes: PERRL, conjunctivae normal, anicteric sclerae ENMT: external ear and nose normal, oropharynx normal Neck: trachea midline, no thyromegaly Respiratory: + respiratory distress (Mild shortness of breath at rest); no retractions Auscultation: + diminished lung sounds and + crackles (Minimal bibasilar crackles) Cardiovascular: Rate/Rhythm: regular rate and regular rhythm; not tachycardic Heart Sounds: normal S1 and normal S2; no murmur Extremities: + edema (Trace edema bilaterally) Gastrointestinal (Abdomen): Inspection/Auscultation: normal bowel sounds; abdomen not distended Percussion/Palpation: abdomen soft; abdomen nontender Musculoskeletal: No acute arthritis in any joint Neurologic: Alert, awake and oriented x3. No focal sensory or motor deficit appreciated Results & Data Results & Data ([facility]) Vital Signs (Past 12 Hours) Vital Signs Temp Pulse Pulse Resp BP Pulse Ox 11/11/21 12:31 77 23 90 11/11/21 10:59 36.8 C 70 18 123/59 L 96 11/11/21 10:24 72 11/11/21 07:16 36.9 C 70 22 123/69 96 11/11/21 02:54 36.4 C L 68 18 147/64 H 96 Medications Administered Current Inpatient Medications Acetaminophen (Acetaminophen 325 Mg Tab) 650 mg PO Q4H PRN PRN Reason: Pain or Fever Stop: 12/08/21 20:19 Albuterol (Albuterol Hfa 8 Gm Inhaler) 2 puffs INH Q6R PRN PRN Reason: Shortness Of Breath Stop: 12/08/21 21:14 Albuterol (Albut/Ipratrop 3mg/0.5mg Neb 3 Ml Vial) 3 ml NEB Q4R PRN; Protocol PRN Reason: Shortness Of Breath Or Wheezing Stop: 12/09/21 08:24 Last Admin: 11/11/21 12:31 Dose: 3 ml Documented by: Ascorbic Acid (Ascorbic Acid 500 Mg Tab) 250 mg PO DAILY [facility] Stop: 12/09/21 08:59 Last Admin: 11/11/21 08:04 Dose: 250 mg Documented by: Baclofen (Baclofen 10 Mg Tab) 5 mg PO BID [facility] Stop: 12/08/21 21:29 Last Admin: 11/11/21 08:00 Dose: 5 mg Documented by: Benzonatate (Benzonatate 100 Mg Capsule) 100 mg PO TID [facility] Stop: 12/08/21 21:29 Last Admin: 11/11/21 13:16 Dose: 100 mg Documented by: Carvedilol (Carvedilol 6.25 Mg Tab) 6.25 mg PO BID [facility] Stop: 12/08/21 21:29 Last Admin: 11/11/21 08:06 Dose: 6.25 mg Documented by: Cyanocobalamin (Cyanocobalamin 500 Mcg Tablet (Vitamin B-12)) 500 mcg PO DAILY [facility] Stop: 12/09/21 08:59 Last Admin: 11/11/21 08:00 Dose: 500 mcg Documented by: Dextrose (Dextrose 50% 50 Ml Syringe) 25 - 50 ml IV UD PRN; Protocol PRN Reason: Hypoglycemia Protocol Stop: 12/08/21 21:44 Dofetilide (Dofetilide 125 Mcg Capsule) 250 mcg PO BID [facility] Stop: 12/08/21 21:29 Last Admin: 11/11/21 08:02 Dose: 250 mcg Documented by: Enoxaparin Sodium (Enoxaparin Inj 40 Mg/0.4 Ml Syr) 40 mg SQ HS [facility] Stop: 12/08/21 21:29 Last Admin: 11/10/21 21:20 Dose: 40 mg Documented by: Estrogens Conjugated (Premarin Vag Crm 14 Appln/30 Gm Tube) 1 appln PV MoWeFr@0900 [facility] Stop: 12/10/21 08:59 Last Admin: 11/10/21 12:41 Dose: Not Given Documented by: Ferrous Sulfate (Ferrous Sulfate 325 Mg Tab) 325 mg PO DAILY [facility] Stop: 12/09/21 08:59 Last Admin: 11/11/21 08:02 Dose: 325 mg Documented by: Folic Acid (Folic Acid 1 Mg Tab) 1 mg PO DAILY [facility] Stop: 12/09/21 08:59 Last Admin: 11/11/21 08:00 Dose: 1 mg Documented by: Glucagon (Glucagon For Inj 1 Mg Vial) 1 mg IM UD PRN; Protocol PRN Reason: Hypoglycemia Protocol Stop: 12/08/21 21:44 Glucose (Glucose 40% Gel 15 Gm Tube) 15 - 30 gm PO UD PRN; Protocol PRN Reason: Hypoglycemia Protocol Stop: 12/08/21 21:44 Glucose (Glucose 10 Tabs/Tube) 4 - 8 tabs PO UD PRN; Protocol PRN Reason: Hypoglycemia Protocol Stop: 12/08/21 21:44 Hydrocodone Bit/Homatropine Methylb (Hydrocodone/Homatropine Syrup 5mg/1.5mg 5ml Udp) 5 ml PO Q6H PRN PRN Reason: Cough Stop: 11/24/21 15:37 Last Admin: 11/11/21 12:44 Dose: 5 ml Documented by: Hydrocortisone (Hydrocortisone Hc 2.5% Crm 30gm Tube) 1 appln EXT BID PRN PRN Reason: hemorrhoid Stop: 12/08/21 20:19 Dexamethasone 6 mg/ Syringe 1.5 mls @ 1 mls/min IV Q24H [facility] Stop: 12/08/21 17:59 Last Admin: 11/11/21 08:06 Dose: 1 mls/min Documented by: Insulin Aspart (Insulin Aspart Per Unit) 0 units SC 0730 [facility]; Protocol Stop: 12/08/21 21:29 Last Admin: 11/11/21 08:52 Dose: 19 units Documented by: Insulin Aspart (Insulin Aspart Per Unit) 0 units SC 1130,1630,2100 [facility]; Protocol Stop: 12/10/21 11:29 Last Admin: 11/11/21 12:54 Dose: 14 units Documented by: Insulin Human NPH (Insulin Human Nph) 30 units SC DAILY [facility] Stop: 12/09/21 08:59 Last Admin: 11/11/21 08:53 Dose: 30 units Documented by: Levalbuterol HCl (Levalbuterol Hcl 1.25 Mg/3 Ml Neb) 1.25 mg NEB Q4H PRN; Protocol PRN Reason: Shortness Of Breath Or Wheezing Stop: 12/09/21 20:29 Levothyroxine Sodium ([facility]roxine Sodium 125 Mcg Tablet) [facility]: 12/09/21 06:29 Last Admin: 11/11/21 06:18 Dose: 125 mcg Documented by: Magnesium Oxide (Magnesium Oxide 400 Mg Tab) 400 mg PO DAILY [facility]; Protocol Stop: 12/09/21 08:59 Last Admin: 11/11/21 08:02 Dose: 400 mg Documented by: Meclizine HCl (Meclizine Hcl 25 Mg Tab) 25 mg PO Q8H PRN PRN Reason: dizziness Stop: 12/08/21 21:14 Miscellaneous (Carbohydrates For Hypoglycemia ) 15 - 30 gm PO UD PRN PRN Reason: Hypoglycemia Treatment Stop: 12/08/21 21:44 Last Admin: 11/09/21 04:21 Dose: 27 gm Documented by: Miscellaneous Information (Pharmacy Glycemic Mgmt Consult) 1 ea N/A UD PRN PRN Reason: Consult Stop: 12/08/21 17:52 Multivitamins (Multivitamin Tab) 1 tab PO DAILY [facility] Stop: 12/09/21 08:59 Last Admin: 11/11/21 08:00 Dose: 1 tab Documented by: *Oxycodone Ir 10 Mg* Patient's Own Controlled Med 1 1 ea PO Q6H PRN PRN Reason: Pain Stop: 11/22/21 22:44 *Oxycodone Ir 10 Mg* Non-Formulary Patient's Own Med 1 ea PO Q6H PRN PRN Reason: Pain Stop: 12/08/21 22:44 Last Admin: 11/10/21 16:04 Dose: 10 mg Documented by: Oxycodone HCl (Oxycodone Hcl 20 Mg Tabcr (Oxycontin)) 20 mg PO BID PRN PRN Reason: Pain Stop: 11/22/21 20:19 Last Admin: 11/10/21 21:14 Dose: 20 mg Documented by: Pantoprazole Sodium (Pantoprazole 40 Mg Tab) 40 mg PO DAILY PRN PRN Reason: Abdominal Pain Stop: 12/08/21 20:19 Last Admin: 11/10/21 02:35 Dose: 40 mg Documented by: Polyethylene Glycol (Polyethylene (Miralax) 17 Gm Pack) 17 gm PO DAILY PRN PRN Reason: Constipation Stop: 12/08/21 20:19 Potassium Chloride (Potassium Chloride 10 Meq Tabcr) 10 meq PO QAM [facility] Stop: 12/09/21 08:59 Last Admin: 11/11/21 08:04 Dose: 10 meq Documented by: Spironolactone (Spironolactone 12.5 Mg Tab) 12.5 mg PO MoWeFr@0900 [facility] Stop: 12/10/21 08:59 Last Admin: 11/10/21 08:50 Dose: 12.5 mg Documented by: Torsemide (Torsemide 10 Mg Tab) 10 mg PO QAM [facility] Stop: 12/09/21 08:59 Last Admin: 11/09/21 08:31 Dose: 10 mg Documented by: Vitamin D (Cholecalciferol 1,000 Units 25 Mcg Tab) 1,000 units PO DAILY [facility] Stop: 12/09/21 08:59 Last Admin: 11/11/21 08:04 Dose: 1,000 units Documented by: (1) COPD (chronic obstructive pulmonary disease) COPD type: unspecified COPD Qualified Code(s): J44.9 - Chronic obstructive pulmonary disease, unspecified
[2021-11-11] MEDS ORDERED: TORSEMIDE 10 MG TAB PO ONE (14:00)
[2021-11-11] MEDS: CARBOHYDRATES FOR HYPOGLYCEMIA PO PRN (15:31)
[2021-11-11] MEDS ORDERED: dilTIAZem HCl 5 MG/ML 5 ML VIAL IV STA (17:20)
[2021-11-11] MEDS: ENOXAPARIN INJ 40 MG/0.4 ML SYR SQ SCH (20:43)
[2021-11-12] MEDS: LEVOTHYROXINE SODIUM 125 MCG TABLET PO SCH (06:21)
[2021-11-12 07:19] LABS: Calcium 8.6 mg/dl (8.5-10.1); Creatinine Clr Calc Pharmacy 56.2 ml/min; Est GFR (African American) 53.7 ml/min; Est GFR (Non-African American) 46.3 ml/min; Potassium 4.3 mmol/L (3.5-5.1)
[2021-11-12] MEDS: BACLOFEN 10 MG TAB PO SCH ×2 (08:41→20:20)
[2021-11-12] MEDS: carvediloL 6.25 MG TAB PO SCH ×2 (08:41→20:21)
[2021-11-12] MEDS: FOLIC ACID 1 MG TAB PO SCH (08:41)
[2021-11-12] MEDS: CHOLECALCIFEROL 1,000 UNITS 25 MCG TAB PO SCH (08:42)
[2021-11-12] MEDS: DOFETILIDE 125 MCG CAPSULE PO SCH ×2 (08:42→20:20)
[2021-11-12] MEDS: FERROUS SULFATE 325 MG TAB PO SCH (08:42)
[2021-11-12] MEDS: CYANOCOBALAMIN (B-12) 500 MCG TABLET PO SCH (08:42)
[2021-11-12] MEDS: MAGNESIUM OXIDE 400 MG TAB PO SCH (08:42)
[2021-11-12] MEDS: MULTIVITAMIN TAB PO SCH (08:43)
[2021-11-12] MEDS: BENZONATATE 100 MG CAPSULE PO SCH ×3 (08:43→20:20)
[2021-11-12] MEDS: POTASSIUM CHLORIDE 10 MEQ TABCR PO SCH (08:43)
[2021-11-12] MEDS: dexAMETHasone 6 MG in SYRINGE 0 ML IV SCH (08:44)
[2021-11-12] MEDS: TORSEMIDE 10 MG TAB PO SCH (08:44)
[2021-11-12] MEDS: ASCORBIC ACID 500 MG TAB PO SCH (08:45)
--- NOTE | 2021-11-12 09:44 | Pharmacy Report ---
Pharmacy Glycemic Short Note 2 - Date of Service November 12, 2021 - Glycemic Short BSG Results (Last 24 hours): 11/11/21 11/11/21 11/11/21 11:46 15:24 15:50 Glucose POC Glucose 170 H 52 L* 72 11/11/21 11/11/21 11/11/21 16:34 17:15 18:04 Glucose POC Glucose 144 H 202 H 294 H 11/11/21 11/12/21 11/12/21 20:12 01:44 04:32 Glucose POC Glucose 284 H 148 H 124 H 11/12/21 11/12/21 05:38 07:41 Glucose 140 H POC Glucose 163 H OUTPATIENT ANTIDIABETIC REGIMEN: * Metformin 500 mg PO qpm * Recently started on prednisone taper * HbA1c: 8.9% (11/09/21) ASSESSMENT: 11/12/21: * BSGs have been relatively well-controlled with the exception of a hypoglycemic event yesterday evening. Pt was then hyperglycemic at bedtime, presumably d/t lack of carb coverage with dinner d/t low BSG. * NPH dose reduced this morning in an effort to prevent repeat hypoglycemia this afternoon/evening. * Patient continues to receive IV dexamethasone daily. Pt appears to be tolerating diabetic diet. 11/10 * BSGs reasonably well-controlled yesterday, sans one outlier BSG elevation at lunch (279 mg/dL) * Received 64 units of insulin (25 units of NPH and 39 units of prand ial/correctional bolus) * Continues on dexamethasone 6 mg IV daily - will increase NPH today and tighten AM Novolog * Lunch BSG elevated again today, plan to further tighten AM Novolog tomorrow * STACY noted today, SCr 1.11 -> 1.66 mg/dL 11/09 * MH is a 76 year old female who presented to ED on 11/08/21 with increased shortness of breath with positive COVID test ~10 days ago * Prednisone taper started ~10 days ago * Pertinent PMH includes CKD, COPD, CHF, T2DM, and morbid obesity * BSGs elevated on presentation (430 mg/dL), patient also started on IV dexamethasone 6 mg daily * Lantus ordered last evening with aggressive Novolog parameters resulting in asymptomatic hypoglycemic episode this morning (68 mg/dL) * Will plan to switch to NPH insulin to be given with IV dexamethasone in AM * will be slightly conservative with initial dosing in light of hypoglycemia this morning and based on age/comorbidities PLAN FOR INPATIENT GLYCEMIC CONTROL: * Hold outpatient oral diabetes medications * Basal insulin * NPH 20 units SC daily with IV dexamethasone * Bolus insulin * NovoLog per scale ACHS or Q6hrs while NPO * Goal Range: Low 110 mg/dL - High 140 mg/dL * Correction Factor: 15 mg/dL/unit * Nutritional / Prandial insulin per carb ratio of 1 unit per 3 grams CHO consumed with breakfast, 1 unit per 5 grams CHO consumed with lunch, dinner, HS PLAN FOR DISCHARGE: * HbA1c of 8.9% suggests poor outpatient glycemic control, but may also be in part due to recent outpatient prednisone usage * Reasonable goal for this patient would be HbA1c less than 8% in light of age and comorbidities * baseline eGFR ~40-50 mL/min/1.73 m2 - assuming return to this baseline at time of discharge * Patient would likely benefit from addition of SGLT-2 inhibitor, i.e. empagliflozin 10 mg PO daily in light of CKD (w/ eGFR > 30) and CHF * Okay to continue metformin
[2021-11-12] MEDS: oxyCODONE HCL 20 MG TABCR (OxyCONTIN) PO PRN ×2 (10:16→20:43)
[2021-11-12] MEDS: INSULIN HUMAN NPH SC SCH (10:38)
[2021-11-12] MEDS: INSULIN ASPART PER UNIT SC SCH ×3 (10:38→18:15)
--- NOTE | 2021-11-12 13:01 | Hospitalist Progress Note ---
Date of Service November 12, 2021 Assessment & Plan (1) Acute on chronic respiratory failure with hypoxia: Plan: This is a 76yo F with PMH of COPD and chronic hypoxemic respiratory failure on 3L NC O2, chronic diastolic CHF, DM II, HTN, HLD, ZEYAD, paroxysmal A Fib anti coagulated on Xarelto, anemia of chronic disease, chronic cor pulmonale, morbid obesity, CKD stage III, chronic pain syndrome on narcotics and other medical problems listed below who presents with worsening SOB and cough in setting of known covid. Took a home test 10 days ago that was positive. Has increased from baseline 3L NC O2 to 5L over the past few days in setting of worsening SOB and productive cough Follows with [facility] pulm and was prescribed prednisone taper (down to 10mg daily) and Cefdinir course (completed) CXR with extensive patchy interstitial and alveolar opacities bilaterally c haracteristic of a viral type pneumonitis and probable Covid 19 pneumonia Currently 96% saturation on 8L Oxymask, appears comfortable IV dexamethasone 6mg daily, out of window for remdesivir Continue scheduled duonebs, flutter valve, incentive spirometry, Tessalon pearles, home inhalers as needed Will give her 60 of Lasix IV today and continue current management Creatinine is a little bit high today so will not give any more Lasix We will try Hycodan to suppress cough Clinically much better and has been requiring 3 L to maintain saturation Her creatinine is normal and will give another dose of Lasix today Complains to have constipation Usual laxatives do not work as she is on narcotic pain medication She will be given 1 dose of Relistor Bowel movement Abdominal discomfort Has been on Protonix We will add sucralfate (2) Pneumonia due to COVID-19 virus: Plan: Management as above (3) COPD (chronic obstructive pulmonary disease): Plan: Complicating COVID-pneumonia Doubt any COPD exacerbation (4) Acute hyperglycemia: Plan: In setting of outpatient prednisone taper. Initial BSG >400, give IV insulin in ED. Consulting glycemic mgmt in setting of ongoing steroids Hemoglobin A1c is high at 8.9 (5) Paroxysmal atrial fibrillation: Plan: Continue Carvedilol, Tikosyn. HR currently 78. Previously on Xarelto but discontinued 9 months ago due to hematuria, hematochezia Heart rate remains controlled Has had tachycardia last night and received 10 mg intravenous Cardizem She has been having occasional tachycardia at home for the last few weeks or so and waiting to see a bead trimmer as an outpatient Received another dose of 10 mg Cardizem IV last evening due to tachycardia more than 120 Heart rate remains normal today (6) DM type 2 (diabetes mellitus, type 2): Plan: Hold home agents SSI while in-patient Glycemic consult placed while receiving IV steroids, presented with BSG >400 BSG AC HS Hemoglobin A1c is high at 8.9 (7) Hypothyroidism: Plan: TSH 0.221, Free T4 high at 1.96. Reduced levothyroxine dose from 150 to 125 mcg (8) Chronic diastolic CHF (congestive heart failure): Plan: Continue torsemide, carvedilol. Watching volume status closely We will hold torsemide and give Lasix for the time being intravenous We will give her usual dose of Demadex today and continue (9) CKD (chronic kidney disease), stage III: Plan: Kidney function appears to be at baseline at 1.28 (bl ~1.2-1.4) Monitor PRP (10) Chronic pain syndrome: Plan: Arthritis of multiple joints. Home regimen includes Oxycontin 20mg BID PRN and IR oxycodone 10mg Q6H PRN Continue, monitor closely (11) ZEYAD (obstructive sleep apnea): Plan: On 3L NC continuously at home DVT Ppx: SQ lovenox Code status: FULL PCP: Cortney Dispo: Admitted to PCU Patient seen in collaboration with Dr. El. Please see addendum. Admission and Anticipated Discharge Date Admission Date: November 08, 2021 Subjective 11/09/2021 The patient was seen and examined in telemetry unit and in the COVID room She has been feeling a little better Still complains cough with chest pain and shortness of breath 11/10/2021 The patient was seen and examined in telemetry unit and in the COVID room She has been feeling better and complains to have more cough and some abdominal discomfort She denies any chest pain and/or palpitation Has been requiring about 4 L of oxygen to maintain saturation 11/11/2021 The patient was seen and examined in telemetry unit and in the COVID room She has been feeling a little better but complains to have constipation She wants to try Relistor as she is on narcotic pain medications Her cough is better and shortness of breath is better 11/12/2021 The patient was seen and examined in telemetry unit and in the COVID room She has had episode of tachycardia last evening and received another dose of Cardizem 10 mg IV She has had a large bowel movement and is still complains of abdominal discomfort Breathing seems to be stable Review of Systems Review of Systems: All systems reviewed and are unremarkable except as noted below Respiratory: Mild shortness of breath at rest Gastrointestinal: Abdominal discomfort without distention Physical Exam Physical Exam: Lying in bed with minimal distress due to shortness of breath Constitutional: well developed, well nourished, + ill appearing and + morbidly obese Eyes: PERRL, conjunctivae normal, anicteric sclerae ENMT: external ear and nose normal, oropharynx normal Neck: trachea midline, no thyromegaly Respiratory: + respiratory distress (Mild shortness of breath at rest); no retractions Auscultation: + diminished lung sounds and + crackles (Minimal bibasilar crackles) Cardiovascular: Rate/Rhythm: regular rate and regular rhythm; not tachycardic Heart Sounds: normal S1 and normal S2; no murmur Extremities: + edema (Trace edema bilaterally) Gastrointestinal (Abdomen): Inspection/Auscultation: normal bowel sounds; abdomen not distended Percussion/Palpation: abdomen soft; abdomen nontender Musculoskeletal: No acute arthritis in any joint Neurologic: Alert, awake and oriented x3 Results & Data Results & Data ([facility]) Vital Signs (Past 12 Hours) Vital Signs Temp Pulse Resp BP Pulse Ox 11/12/21 11:07 37.1 C 69 22 140/82 95 11/12/21 07:52 152/68 H 11/12/21 07:45 36.7 C 99 H 22 121/102 H 91 11/12/21 04:10 37.0 C 69 22 132/64 97 Laboratory Results BMP 11/12/21 05:38 Sodium 134 L Potassium 4.3 Chloride 94 L Carbon Dioxide 35 H BUN 36 H Creatinine 1.16 D Glucose 140 H Calcium 8.6 Medications Administered Current Inpatient Medications Acetaminophen (Acetaminophen 325 Mg Tab) 650 mg PO Q4H PRN PRN Reason: Pain or Fever Stop: 12/08/21 20:19 Albuterol (Albuterol Hfa 8 Gm Inhaler) 2 puffs INH Q6R PRN PRN Reason: Shortness Of Breath Stop: 12/08/21 21:14 Albuterol (Albut/Ipratrop 3mg/0.5mg Neb 3 Ml Vial) 3 ml NEB Q4R PRN; Protocol PRN Reason: Shortness Of Breath Or Wheezing Stop: 12/09/21 08:24 Last Admin: 11/11/21 12:31 Dose: 3 ml Documented by: Ascorbic Acid (Ascorbic Acid 500 Mg Tab) 250 mg PO DAILY YELITZA Stop: 12/09/21 08:59 Last Admin: 11/12/21 08:45 Dose: 250 mg Documented by: Baclofen (Baclofen 10 Mg Tab) 5 mg PO BID YELITZA Stop: 12/08/21 21:29 Last Admin: 11/12/21 08:41 Dose: 5 mg Documented by: Benzonatate (Benzonatate 100 Mg Capsule) 100 mg PO TID YELITZA Stop: 12/08/21 21:29 Last Admin: 11/12/21 08:43 Dose: 100 mg Documented by: Carvedilol (Carvedilol 6.25 Mg Tab) 6.25 mg PO BID YELITZA Stop: 12/08/21 21:29 Last Admin: 11/12/21 08:41 Dose: 6.25 mg Documented by: Cyanocobalamin (Cyanocobalamin 500 Mcg Tablet (Vitamin B-12)) 500 mcg PO DAILY [facility] Stop: 12/09/21 08:59 Last Admin: 11/12/21 08:42 Dose: 500 mcg Documented by: Dextrose (Dextrose 50% 50 Ml Syringe) 25 - 50 ml IV UD PRN; Protocol PRN Reason: Hypoglycemia Protocol Stop: 12/08/21 21:44 Dofetilide (Dofetilide 125 Mcg Capsule) 250 mcg PO BID YELITZA Stop: 12/08/21 21:29 Last Admin: 11/12/21 08:42 Dose: 250 mcg Documented by: Enoxaparin Sodium (Enoxaparin Inj 40 Mg/0.4 Ml Syr) 40 mg SQ HS [facility] Stop: 12/08/21 21:29 Last Admin: 11/11/21 20:43 Dose: 40 mg Documented by: Estrogens Conjugated (Premarin Vag Crm 14 Appln/30 Gm Tube) 1 appln PV MoWeFr@0900 YELITZA Stop: 12/10/21 08:59 Last Admin: 11/10/21 12:41 Dose: Not Given Documented by: Ferrous Sulfate (Ferrous Sulfate 325 Mg Tab) 325 mg PO DAILY [facility] Stop: 12/09/21 08:59 Last Admin: 11/12/21 08:42 Dose: 325 mg Documented by: Folic Acid (Folic Acid 1 Mg Tab) 1 mg PO DAILY YELITZA Stop: 12/09/21 08:59 Last Admin: 11/12/21 08:41 Dose: 1 mg Documented by: Glucagon (Glucagon For Inj 1 Mg Vial) 1 mg IM UD PRN; Protocol PRN Reason: Hypoglycemia Protocol Stop: 12/08/21 21:44 Glucose (Glucose 40% Gel 15 Gm Tube) 15 - 30 gm PO UD PRN; Protocol PRN Reason: Hypoglycemia Protocol Stop: 12/08/21 21:44 Glucose (Glucose 10 Tabs/Tube) 4 - 8 tabs PO UD PRN; Protocol PRN Reason: Hypoglycemia Protocol Stop: 12/08/21 21:44 Hydrocodone Bit/Homatropine Methylb (Hydrocodone/Homatropine Syrup 5mg/1.5mg 5ml Udp) 5 ml PO Q6H PRN PRN Reason: Cough Stop: 11/24/21 15:37 Last Admin: 11/11/21 12:44 Dose: 5 ml Documented by: Hydrocortisone (Hydrocortisone Hc 2.5% Crm 30gm Tube) 1 appln EXT BID PRN PRN Reason: hemorrhoid Stop: 12/08/21 20:19 Dexamethasone 6 mg/ Syringe 1.5 mls @ 1 mls/min IV Q24H YELITZA Stop: 12/08/21 17:59 Last Admin: 11/12/21 08:44 Dose: 1 mls/min Documented by: Insulin Aspart (Insulin Aspart Per Unit) 0 units SC 0730 [facility]; Protocol Stop: 12/08/21 21:29 Last Admin: 11/12/21 10:38 Dose: 2 units Documented by: Insulin Aspart (Insulin Aspart Per Unit) 0 units SC 1130,1630,2100 [facility]; Protocol Stop: 12/10/21 11:29 Last Admin: 11/11/21 21:30 Dose: 10 units Documented by: Insulin Human NPH (Insulin Human Nph) 20 units SC DAILY [facility] Stop: 12/12/21 08:59 Last Admin: 11/12/21 10:38 Dose: 20 units Documented by: Levalbuterol HCl (Levalbuterol Hcl 1.25 Mg/3 Ml Neb) 1.25 mg NEB Q4H PRN; Protocol PRN Reason: Shortness Of Breath Or Wheezing Stop: 12/09/21 20:29 Levothyroxine Sodium (Levothyroxine Sodium 125 Mcg Tablet) 125 mcg PO DAILYBB [facility] Stop: 12/09/21 06:29 Last Admin: 11/12/21 06:21 Dose: 125 mcg Documented by: Magnesium Oxide (Magnesium Oxide 400 Mg Tab) 400 mg PO DAILY YELITZA; Protocol Stop: 12/09/21 08:59 Last Admin: 11/12/21 08:42 Dose: 400 mg Documented by: Meclizine HCl (Meclizine Hcl 25 Mg Tab) 25 mg PO Q8H PRN PRN Reason: dizziness Stop: 12/08/21 21:14 Miscellaneous (Carbohydrates For Hypoglycemia ) 15 - 30 gm PO UD PRN PRN Reason: Hypoglycemia Treatment Stop: 12/08/21 21:44 Last Admin: 11/11/21 15:31 Dose: 30 gm Documented by: Miscellaneous Information (Pharmacy Glycemic Mgmt Consult) 1 ea N/A UD PRN PRN Reason: Consult Stop: 12/08/21 17:52 Multivitamins (Multivitamin Tab) 1 tab PO DAILY YELITZA Stop: 12/09/21 08:59 Last Admin: 11/12/21 08:43 Dose: 1 tab Documented by: *Oxycodone Ir 10 Mg* Patient's Own Controlled Med 1 1 ea PO Q6H PRN PRN Reason: Pain Stop: 11/22/21 22:44 *Oxycodone Ir 10 Mg* Non-Formulary Patient's Own Med 1 ea PO Q6H PRN PRN Reason: Pain Stop: 12/08/21 22:44 Last Admin: 11/10/21 16:04 Dose: 10 mg Documented by: Oxycodone HCl (Oxycodone Hcl 20 Mg Tabcr (Oxycontin)) 20 mg PO BID PRN PRN Reason: Pain Stop: 11/22/21 20:19 Last Admin: 11/12/21 10:16 Dose: 20 mg Documented by: Pantoprazole Sodium (Pantoprazole 40 Mg Tab) 40 mg PO DAILY PRN PRN Reason: Abdominal Pain Stop: 12/08/21 20:19 Last Admin: 11/10/21 02:35 Dose: 40 mg Documented by: Polyethylene Glycol (Polyethylene (Miralax) 17 Gm Pack) 17 gm PO DAILY PRN PRN Reason: Constipation Stop: 12/08/21 20:19 Potassium Chloride (Potassium Chloride 10 Meq Tabcr) 10 meq PO QAM [facility] Stop: 12/09/21 08:59 Last Admin: 11/12/21 08:43 Dose: 10 meq Documented by: Spironolactone (Spironolactone 12.5 Mg Tab) 12.5 mg PO MoWeFr@0900 [facility] Stop: 12/10/21 08:59 Last Admin: 11/10/21 08:50 Dose: 12.5 mg Documented by: Torsemide (Torsemide 10 Mg Tab) 10 mg PO QAM [facility] Stop: 12/09/21 08:59 Last Admin: 11/12/21 08:44 Dose: 10 mg Documented by: Vitamin D (Cholecalciferol 1,000 Units 25 Mcg Tab) 1,000 units PO DAILY [facility] Stop: 12/09/21 08:59 Last Admin: 11/12/21 08:42 Dose: 1,000 units Documented by: (1) COPD (chronic obstructive pulmonary disease) COPD type: unspecified COPD Qualified Code(s): J44.9 - Chronic obstructive pulmonary disease, unspecified
[2021-11-12] MEDS ORDERED: FUROSEMIDE 40 MG/4 ML VIAL IV ONE (13:06)
[2021-11-12 17:15] LABS: Basophils # (auto) 0.01 K/uL (0-0.2); Basophils % (auto) 0.1 %; Hematocrit (blood only) 31.7 % (37-47); Hemoglobin 9.4 g/dL (12.0-16.0); Immature Granulocytes % (auto) 0.8 %; Lymphocytes # (auto) 0.59 K/uL (1.2-3.4); Lymphocytes % (auto) 4.7 %; Mean Corpuscular Hemoglobin 24.2 pg (25-34); Mean Corpuscular Hgb Conc 29.7 g/dL (32-36); Mean Corpuscular Volume 81.5 fL (80-100); Mean Platelet Volume 9.3 fL (7.4-10.4); Monocytes # (auto) 0.65 K/uL (0.11-0.59); Monocytes % (auto) 5.2 %; Neutrophils % (auto) 89.2 %; Platelet Count 334 K/uL (130-400); RDW Coefficient of Variation 17.3 % (11.5-14.5); RDW Standard Deviation 50.9 fL (36.4-46.3); Red Blood Count 3.89 M/uL (4.2-5.4); White Blood Count 12.45 K/uL (4.8-10.8)
[2021-11-12] MEDS: SUCRALFATE 1 GM/10 ML UDC PO SCH ×2 (17:30→20:20)
[2021-11-12 17:33] LABS: Albumin Globulin Ratio 0.9 (0.9-2); Albumin Level 3.2 gm/dl (3.4-5.0); BUN Creatinine Ratio 27.6 (10-20); Bilirubin,Total 0.4 mg/dl (0.2-1.0); Creatinine Clr Calc Pharmacy 51.4 ml/min; Est GFR (African American) 48.1 ml/min; Est GFR (Non-African American) 41.5 ml/min; Globulin 3.4 gm/dl (2.5-4.0); Potassium 4.8 mmol/L (3.5-5.1); Total Protein 6.6 gm/dl (6.0-8.3)
--- NOTE | 2021-11-12 18:03 | XRay Report ---
XR KUB/Abdomen 1 view CLINICAL HISTORY: R/O obstruction TECHNIQUE: 1 view of the abdomen was obtained. Comparison: None available at the time of this dictation. FINDINGS: Lung bases are unremarkable. The osseous structures are grossly unremarkable. The bowel gas pattern i s nonobstructive. A moderate amount of stool is noted within the large bowel. A gas distended loop of large bowel is noted. IMPRESSION: Nonobstructive bowel gas pattern. ACT 112: Negative or not required by law. Electronically signed by: Chris Nugent M.D. 11/12/2021 6:02 PM
[2021-11-12] MEDS: NYSTATIN SUSP 500,000 U/5 ML UDC PO SCH (20:20)
[2021-11-12] MEDS: ENOXAPARIN INJ 40 MG/0.4 ML SYR SQ SCH (20:21)
[2021-11-13] MEDS: INSULIN ASPART PER UNIT SC SCH ×5 (00:15→23:03)
[2021-11-13] MEDS: CARBOHYDRATES FOR HYPOGLYCEMIA PO PRN ×2 (01:20→12:05)
[2021-11-13] MEDS: LEVOTHYROXINE SODIUM 125 MCG TABLET PO SCH (06:14)
[2021-11-13 07:19] LABS: BUN Creatinine Ratio 27.9 (10-20); Calcium 8.8 mg/dl (8.5-10.1); Creatinine Clr Calc Pharmacy 53.5 ml/min; Est GFR (African American) 50.5 ml/min; Est GFR (Non-African American) 43.6 ml/min; Magnesium 2.1 mg/dl (1.7-2.4); Potassium 4.1 mmol/L (3.5-5.1)
[2021-11-13] MEDS: CYANOCOBALAMIN (B-12) 500 MCG TABLET PO SCH (08:33)
[2021-11-13] MEDS: MAGNESIUM OXIDE 400 MG TAB PO SCH (08:34)
[2021-11-13] MEDS: FERROUS SULFATE 325 MG TAB PO SCH (08:34)
[2021-11-13] MEDS: FOLIC ACID 1 MG TAB PO SCH (08:34)
[2021-11-13] MEDS: TORSEMIDE 10 MG TAB PO SCH (08:34)
[2021-11-13] MEDS: CHOLECALCIFEROL 1,000 UNITS 25 MCG TAB PO SCH (08:34)
[2021-11-13] MEDS: BACLOFEN 10 MG TAB PO SCH ×2 (08:35→20:38)
[2021-11-13] MEDS: POTASSIUM CHLORIDE 10 MEQ TABCR PO SCH (08:35)
[2021-11-13] MEDS: NYSTATIN SUSP 500,000 U/5 ML UDC PO SCH ×3 (08:35→20:37)
[2021-11-13] MEDS: BENZONATATE 100 MG CAPSULE PO SCH ×3 (08:36→20:38)
[2021-11-13] MEDS: MULTIVITAMIN TAB PO SCH (08:37)
[2021-11-13] MEDS: SUCRALFATE 1 GM/10 ML UDC PO SCH ×4 (08:37→20:38)
[2021-11-13] MEDS: carvediloL 6.25 MG TAB PO SCH ×2 (08:38→20:38)
[2021-11-13] MEDS: ASCORBIC ACID 500 MG TAB PO SCH (08:38)
[2021-11-13] MEDS: DOFETILIDE 125 MCG CAPSULE PO SCH ×2 (08:39→20:38)
[2021-11-13] MEDS: INSULIN HUMAN NPH SC SCH (08:59)
[2021-11-13] MEDS: dexAMETHasone 6 MG in SYRINGE 0 ML IV SCH (09:00)
[2021-11-13] MEDS: SPIRONOLACTONE 12.5 MG TAB PO SCH ×2 (09:37→20:38)
[2021-11-13] MEDS ORDERED: Nursing to Pharmacy Communication SCH ×2 (09:45→14:00)
--- NOTE | 2021-11-13 10:23 | Pharmacy Report ---
Pharmacy Glycemic Short Note 2 - Date of Service November 13, 2021 - Glycemic Short BSG Results (Last 24 hours): 11/12/21 11/12/21 11/12/21 11:03 16:03 17:01 Glucose 139 H POC Glucose 175 H 212 H 11/12/21 11/13/21 11/13/21 20:11 01:10 01:44 Glucose POC Glucose 172 H 49 L* 80 11/13/21 11/13/21 11/13/21 02:23 05:40 06:12 Glucose 150 H POC Glucose 139 H 157 H 11/13/21 07:44 Glucose POC Glucose 187 H OUTPATIENT ANTIDIABETIC REGIMEN: * Metformin 500 mg PO qpm * Recently started on prednisone taper * HbA1c: 8.9% (11/09/21) ASSESSMENT: 11/13/21: * Ms Fierro had a hypoglycemic episode overnight. Suspect that this was due to pt vomiting yesterday afternoon/evening. It also looks as though pt received Novolog 10 units at HS instead of 7 units per insulin calculator. * Fasting BSG was reasonable this morning. Unfortunately, pt was hypoglycemic at lunchtime. * Novolog parameters loosened, particularly at HS. Pt will get less carb coverage with all meals moving forward. NPH reduced for tomorrow. 11/12 * BSGs have been relatively well-controlled with the exception of a hypoglycemic event yesterday evening. Pt was then hyperglycemic at bedtime, presumably d/t lack of carb coverage with dinner d/t low BSG. * NPH dose reduced this morning in an effort to prevent repeat hypoglycemia this afternoon/evening. * Patient continues to receive IV dexamethasone daily. Pt appears to be tolerating diabetic diet. 11/10 * BSGs reasonably well-controlled yesterday, sans one outlier BSG elevation at lunch (279 mg/dL) * Received 64 units of insulin (25 units of NPH and 39 units of prandial/correctional bolus) * Continues on dexamethasone 6 mg IV daily - will increase NPH today and tighten AM Novolog * Lunch BSG elevated again today, plan to further tighten AM Novolog tomorrow * STACY noted today, SCr 1.11 -> 1.66 mg/dL 11/09 * NELSON is a 76 year old female who presented to ED on 11/08/21 with increased shortness of breath with positive COVID test ~10 days ago * Prednisone taper started ~10 days ago * Pertinent PMH includes CKD, COPD, CHF, T2DM, and morbid obesity * BSGs elevated on presentation (430 mg/dL), patient also started on IV dexamethasone 6 mg daily * Lantus ordered last evening with aggressive Novolog parameters resulting in asymptomatic hypoglycemic episode this morning (68 mg/dL) * Will plan to switch to NPH insulin to be given with IV dexamethasone in AM * will be slightly conservative with initial dosing in light of hypoglycemia this morning and based on age/comorbidities PLAN FOR INPATIENT GLYCEMIC CONTROL: * Hold outpatient oral diabetes medications * Basal insulin * NPH 15 units SC daily with IV dexamethasone (starting 11/14) * Bolus insulin * NovoLog per scale ACHS or Q6hrs while NPO * Goal Range: Low 110 mg/dL - High 140 mg/dL * Correction Factor: 15 mg/dL/unit (20 mg/dL/unit at HS) * Nutritional / Prandial insulin per carb ratio of 1 unit per 6 grams CHO consumed with meals. No carb coverage at HS. PLAN FOR DISCHARGE: * HbA1c of 8.9% suggests poor outpatient glycemic control, but may also be in part due to recent outpatient prednisone usage * Reasonable goal for this patient would be HbA1c less than 8% in light of age and comorbidities * baseline eGFR ~40-50 mL/min/1.73 m2 - assuming return to this baseline at time of discharge * Patient would likely benefit from addition of SGLT-2 inhibitor, i.e. empagliflozin 10 mg PO daily in light of CKD (w/ eGFR > 30) and CHF * Okay to continue metformin
[2021-11-13] MEDS ORDERED: INSULIN ASPART PER UNIT SC SCH (11:30)
[2021-11-13] MEDS ORDERED: PROMETHAZINE HCL 12.5 MG in SODIUM CHLORIDE 0.9% 50 ML IV PRN (11:39)
[2021-11-13] MEDS ORDERED: METHYLNALTREXONE BROMIDE 12 MG/0.6 ML VIAL SQ ONE (13:00)
[2021-11-13] MEDS: DICLOFENAC SOD 1% GEL 100 GM TUBE EXT SCH ×2 (13:43→20:38)
--- NOTE | 2021-11-13 13:51 | Hospitalist Progress Note ---
Date of Service November 13, 2021 Assessment & Plan (1) Acute on chronic respiratory failure with hypoxia: Plan: This is a 76yo F with PMH of COPD and chronic hypoxemic respiratory failure on 3L NC O2, chronic diastolic CHF, DM II, HTN, HLD, ZEYAD, paroxysmal A Fib anti coagulated on Xarelto, anemia of chronic disease, chronic cor pulmonale, morbid obesity, CKD stage III, chronic pain syndrome on narcotics and other medical problems listed below who presents with worsening SOB and cough in setting of known covid. Took a home test 10 days ago that was positive. Has increased from baseline 3L NC O2 to 5L over the past few days in setting of worsening SOB and productive cough Follows with [facility] pulm and was prescribed prednisone taper (down to 10mg daily) and Cefdinir course (completed) CXR with extensive patchy interstitial and alveolar opacities bilaterally c haracteristic of a viral type pneumonitis and probable Covid 19 pneumonia Currently 96% saturation on 8L Oxymask, appears comfortable IV dexamethasone 6mg daily, out of window for remdesivir Continue scheduled duonebs, flutter valve, incentive spirometry, Tessalon pearles, home inhalers as needed Will give her 60 of Lasix IV today and continue current management Creatinine is a little bit high today so will not give any more Lasix We will try Hycodan to suppress cough Clinically much better and has been requiring 3 L to maintain saturation Her creatinine is normal and will give another dose of Lasix today Clinically better with less cough and less shortness of breath at rest We will get PT and OT evaluation Complains to have constipation Usual laxatives do not work as she is on narcotic pain medication She will be given 1 dose of Relistor Bowel movement following Relistor administration yesterday She still has constipation Will give another dose of Relistor today Abdominal discomfort Has been on Protonix We will add sucralfate KUB did not show any obstruction and her relevant blood test including hemoglobin and lipase remain normal Reassured (2) Pneumonia due to COVID-19 virus: Plan: Management as above (3) COPD (chronic obstructive pulmonary disease): Plan: Complicating COVID-pneumonia Doubt any COPD exacerbation (4) Acute hyperglycemia: Plan: In setting of outpatient prednisone taper. Initial BSG >400, give IV insulin in ED. Consulting glycemic mgmt in setting of ongoing steroids Hemoglobin A1c is high at 8.9 (5) Paroxysmal atrial fibrillation: Plan: Continue Carvedilol, Tikosyn. HR currently 78. Previously on Xarelto but discontinued 9 months ago due to hematuria, hematochezia Heart rate remains controlled Has had tachycardia last night and received 10 mg intravenous Cardizem She has been having occasional tachycardia at home for the last few weeks or so and waiting to see a back shoe cutter as an outpatient Received another dose of 10 mg Cardizem IV last evening due to tachycardia more than 120 Heart rate remains normal today We will discussed with back shoe cutter about Tikosyn as she was told that this medicine will be taken off sometime later (6) DM type 2 (diabetes mellitus, type 2): Plan: Hold home agents SSI while in-patient Glycemic consult placed while receiving IV steroids, presented with BSG >400 BSG AC HS Hemoglobin A1c is high at 8.9 Has been getting hypoglycemic episode and will decrease insulin (7) Hypothyroidism: Plan: TSH 0.221, Free T4 high at 1.96. Reduced levothyroxine dose from 150 to 125 mcg (8) Chronic diastolic CHF (congestive heart failure): Plan: Continue torsemide, carvedilol. Watching volume status closely We will hold torsemide and give Lasix for the time being intravenous We will give her usual dose of Demadex today and continue Has been taking spironolactone at night (9) CKD (chronic kidney disease), stage III: Plan: Kidney function appears to be at baseline at 1.28 (bl ~1.2-1.4) Monitor PRP (10) Chronic pain syndrome: Plan: Arthritis of multiple joints. Home regimen includes Oxycontin 20mg BID PRN and IR oxycodone 10mg Q6H PRN Continue, monitor closely (11) ZEYAD (obstructive sleep apnea): Plan: On 3L NC continuously at home DVT Ppx: SQ lovenox Code status: FULL PCP: [facility] Dispo: Admitted to PCU Patient seen in collaboration with Dr. El. Please see addendum. Admission and Anticipated Discharge Date Admission Date: November 08, 2021 Subjective 11/09/2021 The patient was seen and examined in telemetry unit and in the COVID room She has been feeling a little better Still complains cough with chest pain and shortness of breath 11/10/2021 The patient was seen and examined in telemetry unit and in the COVID room She has been feeling better and complains to have more cough and some abdominal discomfort She denies any chest pain and/or palpitation Has been requiring about 4 L of oxygen to maintain saturation 11/11/2021 The patient was seen and examined in telemetry unit and in the COVID room She has been feeling a little better but complains to have constipation She wants to try Relistor as she is on narcotic pain medications Her cough is better and shortness of breath is better 11/12/2021 The patient was seen and examined in telemetry unit and in the COVID room She has had episode of tachycardia last evening and received another dose of Cardizem 10 mg IV She has had a large bowel movement and is still complains of abdominal discomfort Breathing seems to be stable 11/13/2021 The patient was seen and examined in telemetry unit and in the Covid room She has been complaining of abdominal discomfort with nausea and constipation She has had bowel movement yesterday with Relistor Her breathing is a little better and cough is improved Review of Systems Review of Systems: All systems reviewed and are unremarkable except as noted below Respiratory: Mild shortness of breath at rest Gastrointestinal: Abdominal discomfort without distention Physical Exam Physical Exam: Lying in bed with minimal distress due to shortness of breath Constitutional: well developed, well nourished, + ill appearing and + morbidly obese Eyes: PERRL, conjunctivae normal, anicteric sclerae ENMT: external ear and nose normal, oropharynx normal Neck: trachea midline, no thyromegaly Respiratory: + respiratory distress (Mild shortness of breath at rest); no retractions Auscultation: + diminished lung sounds and + crackles (Minimal bibasilar crackles) Cardiovascular: Rate/Rhythm: regular rate and regular rhythm; not tachycardic Heart Sounds: normal S1 and normal S2; no murmur Extremities: + edema (Trace edema bilaterally) Gastrointestinal (Abdomen): Inspection/Auscultation: normal bowel sounds; abdomen not distended Percussion/Palpation: + abdomen tender (Minimally tender in the epigastrium without any guarding and no rigidity) and abdomen soft Musculoskeletal: No acute arthritis in any joint Neurologic: Alert, awake and oriented x3. No focal sensory and motor deficit appreciated Results & Data Results & Data ([facility]) Vital Signs (Past 12 Hours) Vital Signs Temp Pulse Resp BP Pulse Ox 11/13/21 11:09 36.7 C 81 18 129/70 96 11/13/21 07:41 36.7 C 87 16 123/77 97 11/13/21 04:00 37.2 C 81 20 127/84 93 Laboratory Results Short CBC 11/12/21 Range/Units 17:01 WBC 12.45 H (4.8-10.8) K/uL Hgb 9.4 L (12.0-16.0) g/dL Hct 31.7 L (37-47) % Plt Count 334 (130-400) K/uL BMP 11/12/21 11/13/21 17:01 06:12 Sodium 134 L 135 L Potassium 4.8 4.1 Chloride 91 L 92 L Carbon Dioxide 37 H 37 H BUN 35 H 34 H Creatinine 1.27 H 1.22 H Glucose 139 H 150 H Calcium 9.0 8.8 Liver Function 11/12/21 Range/Units 17:01 Total Bilirubin 0.4 (0.2-1.0) mg/dl AST 10 L (13-39) U/L ALT 12 (7-52) U/L Alkaline Phosphatase 50 (34-104) U/L Albumin 3.2 L (3.4-5.0) gm/dl Medications Administered Current Inpatient Medications Acetaminophen (Acetaminophen 325 Mg Tab) 650 mg PO Q4H PRN PRN Reason: Pain or Fever Stop: 12/08/21 20:19 Albuterol (Albuterol Hfa 8 Gm Inhaler) 2 puffs INH Q6R PRN PRN Reason: Shortness Of Breath Stop: 12/08/21 21:14 Albuterol (Albut/Ipratrop 3mg/0.5mg Neb 3 Ml Vial) 3 ml NEB Q4R PRN; Protocol PRN Reason: Shortness Of Breath Or Wheezing Stop: 12/09/21 08:24 Last Admin: 11/11/21 12:31 Dose: 3 ml Documented by: Ascorbic Acid (Ascorbic Acid 500 Mg Tab) 250 mg PO DAILY [facility] Stop: 12/09/21 08:59 Last Admin: 11/13/21 08:38 Dose: 250 mg Documented by: Baclofen (Baclofen 10 Mg Tab) 5 mg PO BID [facility] Stop: 12/08/21 21:29 Last Admin: 11/13/21 08:35 Dose: 5 mg Documented by: Benzonatate (Benzonatate 100 Mg Capsule) 100 mg PO TID YELITZA Stop: 12/08/21 21:29 Last Admin: 11/13/21 13:44 Dose: 100 mg Documented by: Carvedilol (Carvedilol 6.25 Mg Tab) 6.25 mg PO BID YELITZA Stop: 12/08/21 21:29 Last Admin: 11/13/21 08:38 Dose: 6.25 mg Documented by: Cyanocobalamin (Cyanocobalamin 500 Mcg Tablet (Vitamin B-12)) 500 mcg PO DAILY YELITZA Stop: 12/09/21 08:59 Last Admin: 11/13/21 08:33 Dose: 500 mcg Documented by: Dextrose (Dextrose 50% 50 Ml Syringe) 25 - 50 ml IV UD PRN; Protocol PRN Reason: Hypoglycemia Protocol Stop: 12/08/21 21:44 Diclofenac Sodium (Diclofenac Sod 1% Gel 100 Gm Tube) 2 gm EXT BID YELITZA Stop: 12/13/21 12:59 Last Admin: 11/13/21 13:43 Dose: 2 gm Documented by: Dofetilide (Dofetilide 125 Mcg Capsule) 250 mcg PO BID YELITZA Stop: 12/08/21 21:29 Last Admin: 11/13/21 08:39 Dose: 250 mcg Documented by: Enoxaparin Sodium (Enoxaparin Inj 40 Mg/0.4 Ml Syr) 40 mg SQ HS YELITZA Stop: 12/08/21 21:29 Last Admin: 11/12/21 20:21 Dose: 40 mg Documented by: Estrogens Conjugated (Premarin Vag Crm 14 Appln/30 Gm Tube) 1 appln PV MoWeFr@0900 YELITZA Stop: 12/10/21 08:59 Last Admin: 11/10/21 12:41 Dose: Not Given Documented by: Ferrous Sulfate (Ferrous Sulfate 325 Mg Tab) 325 mg PO DAILY YELITZA Stop: 12/09/21 08:59 Last Admin: 11/13/21 08:34 Dose: 325 mg Documented by: Folic Acid (Folic Acid 1 Mg Tab) 1 mg PO DAILY YELITZA Stop: 12/09/21 08:59 Last Admin: 11/13/21 08:34 Dose: 1 mg Documented by: Glucagon (Glucagon For Inj 1 Mg Vial) 1 mg IM UD PRN; Protocol PRN Reason: Hypoglycemia Protocol Stop: 12/08/21 21:44 Glucose (Glucose 40% Gel 15 Gm Tube) 15 - 30 gm PO UD PRN; Protocol PRN Reason: Hypoglycemia Protocol Stop: 12/08/21 21:44 Glucose (Glucose 10 Tabs/Tube) 4 - 8 tabs PO UD PRN; Protocol PRN Reason: Hypoglycemia Protocol Stop: 12/08/21 21:44 Hydrocodone Bit/Homatropine Methylb (Hydrocodone/Homatropine Syrup 5mg/1.5mg 5ml Udp) 5 ml PO Q6H PRN PRN Reason: Cough Stop: 11/24/21 15:37 Last Admin: 11/11/21 12:44 Dose: 5 ml Documented by: Hydrocortisone (Hydrocortisone Hc 2.5% Crm 30gm Tube) 1 appln EXT BID PRN PRN Reason: hemorrhoid Stop: 12/08/21 20:19 Dexamethasone 6 mg/ Syringe 1.5 mls @ 1 mls/min IV Q24H [facility] Stop: 12/08/21 17:59 Last Admin: 11/13/21 09:00 Dose: 1 mls/min Documented by: Promethazine HCl 12.5 mg/ (Sodium Chloride) 50.5 mls @ 202 mls/hr IV Q6H PRN PRN Reason: Nausea And Vomiting Stop: 12/13/21 11:38 Insulin Aspart (Insulin Aspart Per Unit) 0 units SC HS [facility]; Protocol Stop: 12/13/21 20:59 Insulin Aspart (Insulin Aspart Per Unit) 0 units SC AC [facility]; Protocol Stop: 12/13/21 11:29 Last Admin: 11/13/21 13:34 Dose: 5 units Documented by: Insulin Human NPH (Insulin Human Nph) 15 units SC DAILY [facility] Stop: 12/14/21 08:59 Levalbuterol HCl (Levalbuterol Hcl 1.25 Mg/3 Ml Neb) 1.25 mg NEB Q4H PRN; Protocol PRN Reason: Shortness Of Breath Or Wheezing Stop: 12/09/21 20:29 Levothyroxine Sodium (Levothyroxine Sodium 125 Mcg Tablet) [facility] Stop: 12/09/21 06:29 Last Admin: 11/13/21 06:14 Dose: 125 mcg Documented by: Magnesium Oxide (Magnesium Oxide 400 Mg Tab) 400 mg PO DAILY [facility]; Protocol Stop: 12/09/21 08:59 Last Admin: 11/13/21 08:34 Dose: 400 mg Documented by: Meclizine HCl (Meclizine Hcl 25 Mg Tab) 25 mg PO Q8H PRN PRN Reason: dizziness Stop: 12/08/21 21:14 Miscellaneous (Carbohydrates For Hypoglycemia ) 15 - 30 gm PO UD PRN PRN Reason: Hypoglycemia Treatment Stop: 12/08/21 21:44 Last Admin: 11/13/21 12:05 Dose: 30 gm Documented by: Miscellaneous Information (Pharmacy Glycemic Mgmt Consult) 1 ea N/A UD PRN PRN Reason: Consult Stop: 12/08/21 17:52 Multivitamins (Multivitamin Tab) 1 tab PO DAILY [facility] Stop: 12/09/21 08:59 Last Admin: 11/13/21 08:37 Dose: 1 tab Documented by: *Oxycodone Ir 10 Mg* Patient's Own Controlled Med 1 1 ea PO Q6H PRN PRN Reason: Pain Stop: 11/22/21 22:44 *Oxycodone Ir 10 Mg* Non-Formulary Patient's Own Med 1 ea PO Q6H PRN PRN Reason: Pain Stop: 12/08/21 22:44 Last Admin: 11/10/21 16:04 Dose: 10 mg Documented by: Nystatin (Nystatin Susp 500,000 U/5 Ml [facility] [place]) 10 ml PO TID [facility] Stop: 11/22/21 20:59 Last Admin: 11/13/21 13:44 Dose: 10 ml Documented by: Oxycodone HCl (Oxycodone Hcl 20 Mg Tabcr (Oxycontin)) 20 mg PO BID PRN PRN Reason: Pain Stop: 11/22/21 20:19 Last Admin: 11/12/21 20:43 Dose: 20 mg Documented by: Pantoprazole Sodium (Pantoprazole 40 Mg Tab) 40 mg PO DAILY PRN PRN Reason: Abdominal Pain Stop: 12/08/21 20:19 Last Admin: 11/10/21 02:35 Dose: 40 mg Documented by: Polyethylene Glycol (Polyethylene (Miralax) 17 Gm Pack) 17 gm PO DAILY PRN PRN Reason: Constipation Stop: 12/08/21 20:19 Potassium Chloride (Potassium Chloride 10 Meq Tabcr) 10 meq PO QAM [facility] Stop: 12/09/21 08:59 Last Admin: 11/13/21 08:35 Dose: 10 meq Documented by: Spironolactone (Spironolactone 12.5 Mg Tab) 12.5 mg PO MoWeFr@2100 [facility] Stop: 12/13/21 20:59 Sucralfate (Sucralfate 1 Gm/10 Ml Udc) 1 gm PO QID YELITZA Stop: 12/12/21 16:59 Last Admin: 11/13/21 13:44 Dose: 1 gm Documented by: Torsemide (Torsemide 10 Mg Tab) 10 mg PO QAM [facility] Stop: 12/09/21 08:59 Last Admin: 11/13/21 08:34 Dose: 10 mg Documented by: Vitamin D (Cholecalciferol 1,000 Units 25 Mcg Tab) 1,000 units PO DAILY [facility] Stop: 12/09/21 08:59 Last Admin: 11/13/21 08:34 Dose: 1,000 units Documented by: (1) COPD (chronic obstructive pulmonary disease) COPD type: unspecified COPD Qualified Code(s): J44.9 - Chronic obstructive pulmonary disease, unspecified
[2021-11-13] MEDS: PREMARIN VAG CRM 14 APPLN/30 GM TUBE PV SCH ×2 (13:56→20:39)
[2021-11-13] MEDS: OXYCODONE IR 10 MG PO PRN (18:00)
[2021-11-13] MEDS: ENOXAPARIN INJ 40 MG/0.4 ML SYR SQ SCH (20:38)
[2021-11-13] MEDS: oxyCODONE HCL 20 MG TABCR (OxyCONTIN) PO PRN (20:38)
[2021-11-14] MEDS: LEVOTHYROXINE SODIUM 125 MCG TABLET PO SCH (05:23)
[2021-11-14] MEDS: FERROUS SULFATE 325 MG TAB PO SCH (09:57)
[2021-11-14] MEDS: TORSEMIDE 10 MG TAB PO SCH (09:57)
[2021-11-14] MEDS: carvediloL 6.25 MG TAB PO SCH (09:57)
[2021-11-14] MEDS: NYSTATIN SUSP 500,000 U/5 ML UDC PO SCH ×3 (09:57→20:54)
[2021-11-14] MEDS: BACLOFEN 10 MG TAB PO SCH ×2 (09:58→20:53)
[2021-11-14] MEDS: dexAMETHasone 6 MG in SYRINGE 0 ML IV SCH (09:58)
[2021-11-14] MEDS: FOLIC ACID 1 MG TAB PO SCH (09:58)
[2021-11-14] MEDS: MAGNESIUM OXIDE 400 MG TAB PO SCH (09:59)
[2021-11-14] MEDS: SUCRALFATE 1 GM/10 ML UDC PO SCH ×4 (09:59→20:53)
[2021-11-14] MEDS: POTASSIUM CHLORIDE 10 MEQ TABCR PO SCH (10:00)
[2021-11-14] MEDS: BENZONATATE 100 MG CAPSULE PO SCH ×3 (10:00→20:53)
[2021-11-14] MEDS: CHOLECALCIFEROL 1,000 UNITS 25 MCG TAB PO SCH (10:01)
[2021-11-14] MEDS: MULTIVITAMIN TAB PO SCH (10:01)
[2021-11-14] MEDS: INSULIN HUMAN NPH SC SCH (10:02)
[2021-11-14] MEDS: DOFETILIDE 125 MCG CAPSULE PO SCH ×2 (10:03→20:54)
[2021-11-14] MEDS: DICLOFENAC SOD 1% GEL 100 GM TUBE EXT SCH ×2 (10:04→20:54)
[2021-11-14] MEDS: CYANOCOBALAMIN (B-12) 500 MCG TABLET PO SCH (10:06)
[2021-11-14] MEDS: ASCORBIC ACID 500 MG TAB PO SCH (10:06)
[2021-11-14] MEDS: INSULIN ASPART PER UNIT SC SCH ×4 (10:30→23:53)
--- NOTE | 2021-11-14 12:24 | Electrocardiogram Report ---
Test Reason : Blood Pressure : / mmHG Vent. Rate : 136 BPM Atrial Rate : 144 BPM P-R Int : 000 ms QRS Dur : 084 ms QT Int : 346 ms P-R-T Axes : 000 -47 056 degrees QTc Int : 520 ms Supraventricular tachycardia Left anterior fascicular block Abnormal ECG When compared with ECG of 08-NOV-2021 15:47, Supraventricular tachycardia has replaced sinus rhythm Confirmed by Nick Epperson [id number]) on 11/14/2021 12:24:19 PM Referred By: REFERRED SELF Confirmed By:Primitivo Epperson
--- NOTE | 2021-11-14 14:39 | Pharmacy Report ---
Pharmacy Glycemic Short Note 2 - Date of Service November 14, 2021 - Glycemic Short BSG Results (Last 24 hours): 11/13/21 11/13/21 11/14/21 16:53 20:32 07:51 POC Glucose 121 H 177 H 139 H 11/14/21 11:49 POC Glucose 221 H OUTPATIENT ANTIDIABETIC REGIMEN: * Metformin 500 mg PO qpm * Recently started on prednisone taper * HbA1c: 8.9% (11/09/21) ASSESSMENT: 11/14/21: * Lissette received 42 units of insulin yesterday (20 units of NPH + 22 units of Novolog) * Both basal and bolus insulin doses were decreased for today. She has had no episodes of hypoglycemia thus far. * She was hyperglycemic at lunchtime. Of note, there was only 1.5 hours between AM novolog administration and lunch BSG check therefore I will not react to this value. 11/13/21: * Ms Fierro had a hypoglycemic episode overnight. Suspect that this was due to pt vomiting yesterday afternoon/evening. It also looks as though pt received Novolog 10 units at HS instead of 7 units per insulin calculator. * Fasting BSG was reasonable this morning. Unfortunately, pt was hypoglycemic at lunchtime. * Novolog parameters loosened, particularly at HS. Pt will get less carb coverage with all meals moving forward. NPH reduced for tomorrow. 11/12 * BSGs have been relatively well-controlled with the exception of a hypoglycemic event yesterday evening. Pt was then hyperglycemic at bedtime, presumably d/t lack of carb coverage with dinner d/t low BSG. * NPH dose reduced this morning in an effort to prevent repeat hypoglycemia this afternoon/evening. * Patient continues to receive IV dexamethasone daily. Pt appears to be tolerating diabetic diet. 11/10 * BSGs reasonably well-controlled yesterday, sans one outlier BSG elevation at lunch (279 mg/dL) * Received 64 units of insulin (25 units of NPH and 39 units of prandial/correctional bolus) * Continues on dexamethasone 6 mg IV daily - will increase NPH today and tighten AM Novolog * Lunch BSG elevated again today, plan to further tighten AM Novolog tomorrow * STACY noted today, SCr 1.11 -> 1.66 mg/dL 11/09 * NELSON is a 76 year old female who presented to ED on 11/08/21 with increased shortness of breath with positive COVID test ~10 days ago * Prednisone taper started ~10 days ago * Pertinent PMH includes CKD, COPD, CHF, T2DM, and morbid obesity * BSGs elevated on presentation (430 mg/dL), patient also started on IV dexameth asone 6 mg daily * Lantus ordered last evening with aggressive Novolog parameters resulting in asymptomatic hypoglycemic episode this morning (68 mg/dL) * Will plan to switch to NPH insulin to be given with IV dexamethasone in AM * will be slightly conservative with initial dosing in light of hypoglycemia this morning and based on age/comorbidities PLAN FOR INPATIENT GLYCEMIC CONTROL: * Hold outpatient oral diabetes medications * Basal insulin * NPH 15 units SC daily with IV dexamethasone * Bolus insulin * NovoLog per scale ACHS or Q6hrs while NPO * Goal Range: Low 110 mg/dL - High 140 mg/dL * Correction Factor: 15 mg/dL/unit (20 mg/dL/unit at HS) * Nutritional / Prandial insulin per carb ratio of 1 unit per 6 grams CHO consumed with meals. No carb coverage at HS. PLAN FOR DISCHARGE: * HbA1c of 8.9% suggests poor outpatient glycemic control, but may also be in part due to recent outpatient prednisone usage * Reasonable goal for this patient would be HbA1c less than 8% in light of age and comorbidities * baseline eGFR ~40-50 mL/min/1.73 m2 - assuming return to this baseline at time of discharge * Patient would likely benefit from addition of SGLT-2 inhibitor, i.e. empagliflozin 10 mg PO daily in light of CKD (w/ eGFR > 30) and CHF * Okay to continue metformin
[2021-11-14] MEDS: OXYCODONE 10 MG PO PRN (14:42)
--- NOTE | 2021-11-14 16:20 | Cardiology Consultation ---
Date of Consultation November 14, 2021 Assessment & Plan (1) Paroxysmal atrial fibrillation: (2) Pneumonia due to COVID-19 virus: (3) COPD (chronic obstructive pulmonary disease): (4) ZEYAD (obstructive sleep apnea): Patient is a 76-year-old female with very complex issues as outlined including severe chronic obstructive lung disease/sleep apnea admitted with Covid related pneumonia. Since admission she has manifested episodes of paroxysmal atrial fibrillation/atrial tachycardia minimally symptomatic. She has been aware of these for several months especially mid afternoon. No associated syncope chest pain or worsening shortness of breath. Plan: Lab work today BMP and magnesium level We will increase carvedilol to 9.375 mg p.o. twice daily cautiously given underlying wheezing. Continue Tikosyn at current dosing. Review of records reveals higher dosings on initial treatment resulted in QT prolongation Avoid QT prolonging medications in hospital and post discharge History of Present Illness Reason for Consultation: Paroxysmal atrial fibrillation/atrial tachycardia Requesting Physician: Dr. Coffey Attending Physician: Lencho Coffey MD History of Present Illness Patient is a 76-year-old female currently admitted with COVID-19 associated pneumonia her ongoing medical issues include 1. Symptomatic paroxysmal atrial fibrillation, on Tikosyn not on anticoagulation due to past bleeding issues 2. Severe chronic obstructive lung disease, asthmatic lung disease, O2 dependent 3-4 L 3. Sleep apnea, CPAP intolerant. 4. Type 2 diabetes mellitus. 5. Chronic sinus tachycardia. 6. Stage III chronic kidney disease 7. History of past pancreatitis 8. Dyslipidemia. 9. Hypothyroidism 10. Chronic diastolic CHF, NYHA class 3 Patient is referred now after been hospitalized since 11/08/2021 with acute on chronic hypoxic respiratory failure secondary to COVID-19 associated pneumonia. Patient notes she has been gradually improving but still dyspneic with moderately productive cough. Telemetry has demonstrated multiple salvos of paro xysmal atrial tachycardia/SVT rates as high as 150. She has been treated with intermittent doses of IV diltiazem. Currently notes tachypalpitations but no other acute symptoms when occurring. She is in sinus rhythm at time of exam. She denies chest pains dizziness lightheadedness syncope or near syncope. Had projectile vomiting 2 days ago but able to take medications today. No current fevers but significantly weak No bleeding difficulty melena hematochezia Patient no longer on anticoagulation due to past bleeding issues Allergies Allergy/AdvReac Type Severity Reaction Status Date / Time aspirin Allergy Severe HIVES, SOB Verified 11/08/21 18:35 Iodinated Contrast Media Allergy Severe "CAUSED Verified 11/08/21 18:35 ASTHMA ATTACK" & HIVES ipratropium Allergy Severe SHORTNESS Verified 11/08/21 18:35 OF BREATH metaproterenol [From Alupent] Allergy Severe EYES AND Verified 11/08/21 18:35 FACE SWELLING, SEVERE WHEEZING NSAIDS (Non-Steroidal Allergy Severe Hives Verified 11/08/21 18:35 Anti-Inflamma Penicillins Allergy Severe SOB, HIVES Verified 11/08/21 18:35 sotalol Allergy Severe increased Verified 11/08/21 18:35 breathing problems Sulfa (Sulfonamide Allergy Severe Anaphylaxis Verified 11/08/21 18:35 Antibiotics) tiotropium Allergy Severe SYMPTOMS Verified 11/08/21 18:35 [From Spiriva with [employer]] INSTEAD OF BETTER WITH BREATHING arformoterol Allergy Intermediate TACHYCARDIA Verified 11/08/21 18:35 aspartame Allergy Intermediate HIVES, Verified 11/08/21 18:35 ITCHY ciprofloxacin Allergy Intermediate WHEEZING, Verified 11/08/21 18:35 NAUSEA clarithromycin [From Biaxin] Allergy Intermediate Unknown, ? Verified 11/08/21 18:35 WHEEZING , OR NAUSEA ? Fish Containing Products Allergy Intermediate BODY CAN'T Verified 11/08/21 18:35 ABSORB fish derived Allergy Intermediate Unknown Verified 11/08/21 18:35 latex Allergy Intermediate ITCHY/RASH Verified 11/08/21 18:35 nickel Allergy Intermediate RASH & Verified 11/08/21 18:35 BLISTERS pioglitazone [From Actos] Allergy Intermediate RETAINED Verified 11/08/21 18:35 FLUID povidone Allergy Intermediate BLISTER Verified 11/08/21 18:35 WITH TAPE shellfish derived Allergy Intermediate BODY CAN'T Verified 11/08/21 18:35 ABSORB, "SMELL LIKE A FISH" stevioside [From Stevia] Allergy Intermediate Wheezing Verified 11/08/21 18:35 sucralose Allergy Intermediate Wheezing Verified 11/08/21 18:35 [From Splenda (sucralose)] adhesive Allergy Mild BLISTERS Verified 11/08/21 18:35 WITH TAPE apixaban [From Eliquis] Allergy Mild SEE NOTES Verified 11/08/21 18:35 BELOW banana Allergy Mild "FEELS Verified 11/08/21 18:35 LIKE PEACH FUZZ IN MOUTH" chlorhexidine Allergy Mild BLISTERY Verified 11/08/21 18:36 RASH psyllium [From Metamucil] AdvReac Intermediate bloating Verified 11/08/21 18:36 meperidine AdvReac Mild Gastrointestinal Verified 11/08/21 18:36 Upset, N/V metformin [From Riomet] AdvReac Mild DIARRHEA Verified 11/08/21 18:36 WITH MORE THAN 1 A DAY morphine AdvReac Mild Gastrointestinal Verified 11/08/21 18:36 Upset,N/V tapentadol [From Nucynta] AdvReac Mild Nausea and Verified 11/08/21 18:36 vomiting Home Medications Medication Instructions Recorded Confirmed Type baclofen 10 mg tablet 5 mg PO BID 09/12/20 11/08/21 History carvedilol 6.25 mg tablet 6.25 mg PO BID 09/12/20 11/08/21 History cholecalciferol (vitamin D3) 25 25 mcg PO DAILY 09/12/20 11/08/21 History mcg (1,000 unit) capsule conjugated estrogens 0.625 mg/gram 0.625 mg VAGINAL MOWEFR@0900 09/12/20 11/08/21 History vaginal cream (Premarin) cyanocobalamin (vitamin B-12) 500 500 mcg PO DAILY 09/12/20 11/08/21 History mcg tablet dofetilide 250 mcg capsule 250 mcg PO BID 09/12/20 11/08/21 History hydrocortisone 2.5 % topical cream 1 applic UT BID PRN 09/12/20 11/08/21 History with perineal applicator (Proctosol HC) meclizine 25 mg tablet 25 mg PO Q8H PRN 09/12/20 11/08/21 History metformin 500 mg tablet,extended 500 mg PO QPM 09/12/20 11/08/21 History release 24 hr multivitamin 1 tab PO DAILY 09/12/20 11/08/21 History pantoprazole 40 mg tablet,delayed 40 mg PO DAILY PRN 09/12/20 11/08/21 History release potassium chloride 10 mEq 10 meq PO QAM 09/12/20 11/08/21 History tablet,extended release spironolactone 25 mg tablet 12.5 mg PO MOWEFR@0900 09/12/20 11/08/21 History torsemide 10 mg tablet 10 mg PO QAM 09/12/20 11/08/21 History acetaminophen 650 mg 650 mg PO UD PRN 09/28/20 11/08/21 History tablet,extended release (Tylenol 8 Hour) diclofenac sodium 2 % topical 1 packet TOPICAL UD PRN 09/28/20 11/08/21 History solution in packet levothyroxine 150 mcg tablet 150 mcg PO QAM 09/28/20 11/08/21 History magnesium 200 mg tablet 600 mg PO DAILY 09/28/20 11/08/21 History ondansetron HCl 4 mg tablet 4 mg PO Q8H PRN 09/28/20 11/08/21 History polyethylene glycol 3350 17 gram 17 g PO QAM PRN 09/28/20 11/08/21 History oral powder packet (Miralax) albuterol sulfate 90 mcg/actuation 2 inh INHALATION Q6H PRN #3 inhaler 11/11/20 11/08/21 Rx aerosol inhaler mupirocin 2 % topical ointment 1 applic TOPICAL BID #22 g 01/11/21 11/08/21 Rx ferrous fumarate-vitamin C 200 mg 1 tab PO DAILY 03/01/21 11/08/21 History (66 mg iron)-125 mg tablet folic acid 1 mg tablet 1 mg PO DAILY 03/01/21 11/08/21 History nebulizers #1 ea 05/11/21 11/08/21 Rx albuterol sulfate 2.5 mg INHALATION Q4H PRN #180 ml 09/27/21 11/08/21 Rx prednisone 10 mg tablet See Rx Instructions PO DAILY #36 10/31/21 11/08/21 Rx tab benzonatate 100 mg capsule 100 mg PO TID PRN 11/08/21 11/08/21 History oxycodone 10 mg tablet 10 mg PO Q6H PRN 11/08/21 11/08/21 History oxycodone 20 mg tablet,crush 20 mg PO BID PRN 11/08/21 11/08/21 History resistant,extended release 12 hr (OxyContin) Patient History Medical History Asthma USED RESCUE INHALER LAST WEEKEND Back problem 3 DISCS PUSHING ON SCIATIC NERVE PER PT>CAUSES R LEG NUMBNESS AT TIMES LYING FLAT FOR EXTENDED TIME WILL CAUSE LEGS TO JUMP Chronic anticoagulation Chronic diastolic CHF (congestive heart failure) Chronic low blood pressure Chronic respiratory failure with hypoxia CKD (chronic kidney disease), stage III COPD (chronic obstructive pulmonary disease) Cor pulmonale, chronic DM type 2 (diabetes mellitus, type 2) Dyslipidemia History of Meniere's disease History of TIA (transient ischemic attack) ? NEVER CONFIRMED (PT DOES NOT THINK SHE HAD TIA) Hx of vertigo Hypothyroidism Impingement syndrome of both shoulders ZEYAD (obstructive sleep apnea) WEARS 3-4L CONT. Osteoarthritis Oxygen dependent 3-4L CONT. 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 Brother Stroke Sister Diabetes Sister Diabetes Son Diabetes Social History Smoking Status: Never smoker Second Hand Exposure: No; Hx Alcohol Use: No Hx Substance Use: No Preferred Language: Faroese Communication Ability: Effective Fur Farmer Required: No Beliefs That Will Affect Care: None marital status: Current Living Situation: Family Current Living Situation Comment: lives with son How many Children do You have: 2 Other Information That Helps Us Care for You: No Feels Safe at Home: Yes Safety Concerns: Feels Safe At This Time Assistive Devices: Oxygen - Continuous Review of Systems Review of Systems: All systems reviewed & are unremarkable except as noted in HPI & below Physical Exam Constitutional: + obese; no acute distress Eyes: PERRL, conjunctivae normal, anicteric sclerae ENMT: Cushingoid facies Neck: trachea midline, no thyromegaly Respiratory: + audible wheezes (Few scattered) Auscultation: + rhonchi (W ith forced cough) Cardiovascular: Rate/Rhythm: regular rate and regular rhythm Heart Sounds: normal S1 and normal S2 Vessels: no JVD Extremities: no edema Gastrointestinal (Abdomen): normal bowel sounds, soft, nontender, no hepatosplenomegaly Musculoskeletal: no cyanosis or clubbing, extremities motor strength 5/5 Neurologic: PERRL, EOMI, accommodation nl, no face palsy, no dysarthria Psychiatric: A+Ox3, euthymic affect Results & Data ([facility]) Vital Signs (Past 12 Hours) Vital Signs Temp Pulse Resp BP BP Pulse Ox 11/14/21 15:08 37.0 C 102 H 16 122/72 93 11/14/21 11:20 36.6 C 114 H 20 120/63 96 11/14/21 07:23 36.8 C 69 18 135/67 96 Laboratory Results Laboratory Results - last 24 hr 11/13/21 11/13/21 11/14/21 16:53 20:32 07:51 POC Glucose 121 H 177 H 139 H 11/14/21 11/14/21 11:49 15:00 POC Glucose 221 H 73 Diagnostic Findings Echocardiogram 03/06/2021 Study performed in atrial fibrillation. Mild left ventricular hypertrophy with hyperdynamic left ventricular systolic function EF 65 to 70% Medications Administered Current Medications Acetaminophen (Acetaminophen 325 Mg Tab) 650 mg PO Q4H PRN PRN Reason: Pain or Fever Stop: 12/08/21 20:19 Albuterol (Albuterol Hfa 8 Gm Inhaler) 2 puffs INH Q6R PRN PRN Reason: Shortness Of Breath Stop: 12/08/21 21:14 Albuterol (Albut/Ipratrop 3mg/0.5mg Neb 3 Ml Vial) 3 ml NEB Q4R PRN; Protocol PRN Reason: Shortness Of Breath Or Wheezing Stop: 12/09/21 08:24 Last Admin: 11/11/21 12:31 Dose: 3 ml Documented by: Ascorbic Acid (Ascorbic Acid 500 Mg Tab) 250 mg PO DAILY [facility] Stop: 12/09/21 08:59 Last Admin: 11/14/21 10:06 Dose: 250 mg Documented by: Baclofen (Baclofen 10 Mg Tab) 5 mg PO BID [facility] Stop: 12/08/21 21:29 Last Admin: 11/14/21 09:58 Dose: 5 mg Documented by: Benzonatate (Benzonatate 100 Mg Capsule) 100 mg PO TID [facility] Stop: 12/08/21 21:29 Last Admin: 11/14/21 14:01 Dose: 100 mg Documented by: Carvedilol (Carvedilol 3.125 Mg Tab) 9.375 mg PO BID [facility] Stop: 12/14/21 20:59 Cyanocobalamin (Cyanocobalamin 500 Mcg Tablet (Vitamin B-12)) 500 mcg PO DAILY [facility] Stop: 12/09/21 08:59 Last Admin: 11/14/21 10:06 Dose: 500 mcg Documented by: Dextrose (Dextrose 50% 50 Ml Syringe) 25 - 50 ml IV UD PRN; Protocol PRN Reason: Hypoglycemia Protocol Stop: 12/08/21 21:44 Diclofenac Sodium (Diclofenac Sod 1% Gel 100 Gm Tube) 2 gm EXT BID [facility] Stop: 12/13/21 12:59 Last Admin: 11/14/21 10:04 Dose: 2 gm Documented by: Dofetilide (Dofetilide 125 Mcg Capsule) 250 mcg PO BID [facility] Stop: 12/08/21 21:29 Last Admin: 11/14/21 10:03 Dose: 250 mcg Documented by: Enoxaparin Sodium (Enoxaparin Inj 40 Mg/0.4 Ml Syr) 40 mg SQ HS [facility] Stop: 12/08/21 21:29 Last Admin: 11/13/21 20:38 Dose: 40 mg Documented by: Estrogens Conjugated (Premarin Vag Crm 14 Appln/30 Gm Tube) 1 appln PV MoWeFr@2100 [facility] Stop: 12/13/21 20:59 Last Admin: 11/13/21 20:39 Dose: 1 appln Documented by: Ferrous Sulfate (Ferrous Sulfate 325 Mg Tab) 325 mg PO DAILY [facility] Stop: 12/09/21 08:59 Last Admin: 11/14/21 09:57 Dose: 325 mg Documented by: Folic Acid (Folic Acid 1 Mg Tab) 1 mg PO DAILY [facility] Stop: 12/09/21 08:59 Last Admin: 11/14/21 09:58 Dose: 1 mg Documented by: Glucagon (Glucagon For Inj 1 Mg Vial) 1 mg IM UD PRN; Protocol PRN Reason: Hypoglycemia Protocol Stop: 12/08/21 21:44 Glucose (Glucose 40% Gel 15 Gm Tube) 15 - 30 gm PO UD PRN; Protocol PRN Reason: Hypoglycemia Protocol Stop: 12/08/21 21:44 Glucose (Glucose 10 Tabs/Tube) 4 - 8 tabs PO UD PRN; Protocol PRN Reason: Hypoglycemia Protocol Stop: 12/08/21 21:44 Hydrocodone Bit/Homatropine Methylb (Hydrocodone/Homatropine Syrup 5mg/1.5mg 5ml Udp) 5 ml PO Q6H PRN PRN Reason: Cough Stop: 11/24/21 15:37 Last Admin: 11/11/21 12:44 Dose: 5 ml Documented by: Hydrocortisone (Hydrocortisone Hc 2.5% Crm 30gm Tube) 1 appln EXT BID PRN PRN Reason: hemorrhoid Stop: 12/08/21 20:19 Dexamethasone 6 mg/ Syringe 1.5 mls @ 1 mls/min IV Q24H [facility] Stop: 12/08/21 17:59 Last Admin: 11/14/21 09:58 Dose: 1 mls/min Documented by: Promethazine HCl 12.5 mg/ (Sodium Chloride) 50.5 mls @ 202 mls/hr IV Q6H PRN PRN Reason: Nausea And Vomiting Stop: 12/13/21 11:38 Last Infusion: 11/14/21 09:11 Dose: Infused Documented by: Insulin Aspart (Insulin Aspart Per Unit) [address] [facility]; Protocol Stop: 12/13/21 20:59 Last Admin: 11/13/21 23:03 Dose: Not Given Documented by: Insulin Aspart (Insulin Aspart Per Unit) 0 units SC [facility]; Protocol Stop: 12/13/21 11:29 Last Admin: 11/14/21 12:16 Dose: 11 units Documented by: Insulin Human NPH (Insulin Human Nph) 15 units SC DAILY [facility] Stop: 12/14/21 08:59 Last Admin: 11/14/21 10:02 Dose: 15 units Documented by: Levalbuterol HCl (Levalbuterol Hcl 1.25 Mg/3 Ml Neb) 1.25 mg NEB Q4H PRN; Protocol PRN Reason: Shortness Of Breath Or Wheezing Stop: 12/09/21 20:29 Levothyroxine Sodium ([facility] 125 [facility]g [facility]: 12/09/21 06:29 Last Admin: 11/14/21 05:23 Dose: 125 mcg Documented by: Magnesium Oxide (Magnesium Oxide 400 Mg Tab) 400 mg PO DAILY [facility]; Protocol Stop: 12/09/21 08:59 Last Admin: 11/14/21 09:59 Dose: 400 mg Documented by: Meclizine HCl (Meclizine Hcl 25 Mg Tab) 25 mg PO Q8H PRN PRN Reason: dizziness Stop: 12/08/21 21:14 Miscellaneous (Carbohydrates For Hypoglycemia ) 15 - 30 gm PO UD PRN PRN Reason: Hypoglycemia Treatment Stop: 12/08/21 21:44 Last Admin: 11/13/21 12:05 Dose: 30 gm Documented by: Miscellaneous Information (Pharmacy Glycemic Mgmt Consult) 1 ea N/A UD PRN PRN Reason: Consult Stop: 12/08/21 17:52 Multivitamins (Multivitamin Tab) 1 tab PO DAILY [facility] Stop: 12/09/21 08:59 Last Admin: 11/14/21 10:01 Dose: 1 tab Documented by: *Oxycodone Ir 10 Mg* Patient's Own Controlled Med 1 1 ea PO Q6H PRN PRN Reason: Pain Stop: 11/22/21 22:44 Last Admin: 11/14/21 14:42 Dose: 10 mg Documented by: *Oxycodone Ir 10 Mg* Non-Formulary Patient's Own Med 1 ea PO Q6H PRN PRN Reason: Pain Stop: 12/08/21 22:44 Last Admin: 11/13/21 18:00 Dose: 10 mg Documented by: Nystatin (Nystatin Susp 500,000 U/5 Ml Udc) 10 ml PO TID [facility] Stop: 11/22/21 20:59 Last Admin: 11/14/21 14:47 Dose: Not Given Documented by: Oxycodone HCl (Oxycodone Hcl 20 Mg Tabcr (Oxycontin)) 20 mg PO BID PRN PRN Reason: Pain Stop: 11/22/21 20:19 Last Admin: 11/13/21 20:38 Dose: 20 mg Documented by: Pantoprazole Sodium (Pantoprazole 40 Mg Tab) 40 mg PO DAILY PRN PRN Reason: Abdominal Pain Stop: 12/08/21 20:19 Last Admin: 11/10/21 02:35 Dose: 40 mg Documented by: Polyethylene Glycol (Polyethylene (Miralax) 17 Gm Pack) 17 gm PO DAILY PRN PRN Reason: Constipation Stop: 12/08/21 20:19 Potassium Chloride (Potassium Chloride 10 Meq Tabcr) 10 meq PO QAM [facility] Stop: 12/09/21 08:59 Last Admin: 11/14/21 10:00 Dose: 10 meq Documented by: Spironolactone (Spironolactone 12.5 Mg Tab) 12.5 mg PO MoWeFr@2100 [facility] Stop: 12/13/21 20:59 Last Admin: 11/13/21 20:38 Dose: 12.5 mg Documented by: Sucralfate (Sucralfate 1 Gm/10 Ml Udc) 1 gm PO QID [facility] Stop: 12/12/21 16:59 Last Admin: 11/14/21 14:01 Dose: 1 gm Documented by: Torsemide (Torsemide 10 Mg Tab) 10 mg PO QAM [facility] Stop: 12/09/21 08:59 Last Admin: 11/14/21 09:57 Dose: 10 mg Documented by: Vitamin D (Cholecalciferol 1,000 Units 25 Mcg Tab) 1,000 units PO DAILY [facility] Stop: 12/09/21 08:59 Last Admin: 11/14/21 10:01 Dose: 1,000 units Documented by: ECG Additional Comments: EKG 11/14/2021, 1138 18 Narrow complex tachycardia/supraventricular tachycardia rate 136 bpm Left anterior fascicular block EKG 11/14/2021 1352 Sinus rhythm with PACs, rate 67 bpm QT corrected 429 (1) COPD (chronic obstructive pulmonary disease) COPD type: unspecified COPD Qualified Code(s): J44.9 - Chronic obstructive pulmonary disease, unspecified
[2021-11-14] MEDS ORDERED: carvediloL 3.125 MG TAB PO ONE (16:22)
--- NOTE | 2021-11-14 16:23 | Hospitalist Progress Note ---
Date of Service November 14, 2021 Assessment & Plan (1) Acute on chronic respiratory failure with hypoxia: Plan: This is a 76yo F with PMH of COPD and chronic hypoxemic respiratory failure on 3L NC O2, chronic diastolic CHF, DM II, HTN, HLD, ZEYAD, paroxysmal A Fib anti coagulated on Xarelto, anemia of chronic disease, chronic cor pulmonale, morbid obesity, CKD stage III, chronic pain syndrome on narcotics and other medical problems listed below who presents with worsening SOB and cough in setting of known covid. Took a home test 10 days ago that was positive. Has increased from baseline 3L NC O2 to 5L over the past few days in setting of worsening SOB and productive cough Follows with [facility] pulm and was prescribed prednisone taper (down to 10mg daily) and Cefdinir course (completed) CXR with extensive patchy interstitial and alveolar opacities bilaterally c haracteristic of a viral type pneumonitis and probable Covid 19 pneumonia Currently 96% saturation on 8L Oxymask, appears comfortable IV dexamethasone 6mg daily, out of window for remdesivir Continue scheduled duonebs, flutter valve, incentive spirometry, Tessalon pearles, home inhalers as needed Will give her 60 of Lasix IV today and continue current management Creatinine is a little bit high today so will not give any more Lasix We will try Hycodan to suppress cough Clinically much better and has been requiring 3 L to maintain saturation Her creatinine is normal and will give another dose of Lasix today Clinically better with less cough and less shortness of breath at rest We will get PT and OT evaluation-has not been done yet She has been stable and requiring 4 L/min via nasal cannula to maintain saturation Paroxysmal tachycardia/atrial fibrillation Has been complaining of paroxysmal tachycardia which have been controlled with single short of intravenous Cardizem 10 mg Her EKG did show-SVT at 136 bpm Cardiology consulted as she has been on Tikosyn and has been having frequent attacks of A. fib/SVT Complains to have constipation Usual laxatives do not work as she is on narcotic pain medication She will be given 1 dose of Relistor Bowel movement following Relistor administration yesterday She still has constipation She will get her Relistor today Abdominal discomfort Has been on Protonix We will add sucralfate KUB did not show any obstruction and her relevant blood test including hemoglobin and lipase remain normal Reassured-we will increase Protonix to twice daily She may need GI evaluation if hemoglobin drops and has evidence of GI bleed We will get stool for occult blood (2) Pneumonia due to COVID-19 virus: Plan: Management as above (3) COPD (chronic obstructive pulmonary disease): Plan: Complicating COVID-pneumonia Doubt any COPD exacerbation (4) Acute hyperglycemia: Plan: In setting of outpatient prednisone taper. Initial BSG >400, give IV insulin in ED. Consulting glycemic mgmt in setting of ongoing steroids Hemoglobin A1c is high at 8.9 (5) Paroxysmal atrial fibrillation: Plan: Continue Carvedilol, Tikosyn. HR currently 78. Previously on Xarelto but discontinued 9 months ago due to hematuria, hematochezia Heart rate remains controlled Has had tachycardia last night and received 10 mg intravenous Cardizem She has been having occasional tachycardia at home for the last few weeks or so and waiting to see a tank driver as an outpatient Received another dose of 10 mg Cardizem IV last evening due to tachycardia more than 120 Heart rate remains normal today We will discussed with tank driver about Tikosyn as she was told that this medicine will be taken off sometime later Cardiology has been consulted (6) DM type 2 (diabetes mellitus, type 2): Plan: Hold home agents SSI while in-patient Glycemic consult placed while receiving IV steroids, presented with BSG >400 BSG AC HS Hemoglobin A1c is high at 8.9 Has been getting hypoglycemic episode and will decrease insulin (7) Hypothyroidism: Plan: TSH 0.221, Free T4 high at 1.96. Reduced levothyroxine dose from 150 to 125 mcg (8) Chronic diastolic CHF (congestive heart failure): Plan: Continue torsemide, carvedilol. Watching volume status closely We will hold torsemide and give Lasix for the time being intravenous We will give her usual dose of Demadex today and continue Has been taking spironolactone at night (9) CKD (chronic kidney disease), stage III: Plan: Kidney function appears to be at baseline at 1.28 (bl ~1.2-1.4) Monitor PRP (10) Chronic pain syndrome: Plan: Arthritis of multiple joints. Home regimen includes Oxycontin 20mg BID PRN and IR oxycodone 10mg Q6H PRN Continue, monitor closely (11) ZEYAD (obstructive sleep apnea): Plan: On 3L NC continuously at home DVT Ppx: SQ lovenox Code status: FULL PCP: [facility] Dispo: Admitted to PCU Admission and Anticipated Discharge Date Admission Date: November 08, 2021 Subjective 11/09/2021 The patient was seen and examined in telemetry unit and in the COVID room She has been feeling a little better Still complains cough with chest pain and shortness of breath 11/10/2021 The patient was seen and examined in telemetry unit and in the COVID room She has been feeling better and complains to have more cough and some abdominal discomfort She denies any chest pain and/or palpitation Has been requiring about 4 L of oxygen to maintain saturation 11/11/2021 The patient was seen and examined in telemetry unit and in the COVID room She has been feeling a little better but complains to have constipation She wants to try Relistor as she is on narcotic pain medications Her cough is better and shortness of breath is better 11/12/2021 The patient was seen and examined in telemetry unit and in the COVID room She has had episode of tachycardia last evening and received another dose of Cardizem 10 mg IV She has had a large bowel movement and is still complains of abdominal discomfort Breathing seems to be stable 11/13/2021 The patient was seen and examined in telemetry unit and in the Covid room She has been complaining of abdominal discomfort with nausea and constipation She has had bowel movement yesterday with Relistor Her breathing is a little better and cough is improved 11/14/2021 The patient was seen and examined in telemetry unit and in the Covid room She has been having episodic palpitation and the heart rate has been going of around 1 30-1 40 without significant symptoms Her respiratory symptoms have been improving She still complains to have epigastric discomfort Review of Systems Review of Systems: All systems reviewed and are unremarkable except as noted below Respiratory: Mild shortness of breath at rest Cardiovascular: Additional Comments: Occasional palpitation with the heart rate going up more than 130 Gastrointestinal: Abdominal discomfort without distention Physical Exam Physical Exam: Lying in bed with minimal distress due to shortness of breath Constitutional: well developed, well nourished, + ill appearing and + morbidly obese Eyes: PERRL, conjunctivae normal, anicteric sclerae ENMT: external ear and nose normal, oropharynx normal Neck: trachea midline, no thyromegaly Respiratory: + respiratory distress (Mild shortness of breath at rest); no retractions Auscultation: + diminished lung sounds and + crackles (Minimal bibasilar crackles) Cardiovascular: Rate/Rhythm: regular rate and regular rhythm; not tachycardic Heart Sounds: normal S1 and normal S2; no murmur Extremities: + edema ( Trace edema bilaterally) Gastrointestinal (Abdomen): Inspection/Auscultation: normal bowel sounds; abdomen not distended Percussion/Palpation: + abdomen tender (Minimally tender in the epigastrium without any guarding and no rigidity) and abdomen soft Musculoskeletal: No acute arthritis in any joint Neurologic: Alert, awake and oriented x3. No focal sensory or no motor deficit appreciated Results & Data Results & Data ([facility]) Vital Signs (Past 12 Hours) Vital Signs Temp Pulse Resp BP BP Pulse Ox 11/14/21 15:08 37.0 C 102 H 16 122/72 93 11/14/21 11:20 36.6 C 114 H 20 120/63 96 11/14/21 07:23 36.8 C 69 18 135/67 96 Medications Administered Current Inpatient Medications Acetaminophen (Acetaminophen 325 Mg Tab) 650 mg PO Q4H PRN PRN Reason: Pain or Fever Stop: 12/08/21 20:19 Albuterol (Albuterol Hfa 8 Gm Inhaler) 2 puffs INH Q6R PRN PRN Reason: Shortness Of Breath Stop: 12/08/21 21:14 Albuterol (Albut/Ipratrop 3mg/0.5mg Neb 3 Ml Vial) 3 ml NEB Q4R PRN; Protocol PRN Reason: Shortness Of Breath Or Wheezing Stop: 12/09/21 08:24 Last Admin: 11/11/21 12:31 Dose: 3 ml Documented by: Ascorbic Acid (Ascorbic Acid 500 Mg Tab) 250 mg PO DAILY [facility] Stop: 12/09/21 08:59 Last Admin: 11/14/21 10:06 Dose: 250 mg Documented by: Baclofen (Baclofen 10 Mg Tab) 5 mg PO BID [facility] Stop: 12/08/21 21:29 Last Admin: 11/14/21 09:58 Dose: 5 mg Documented by: Benzonatate (Benzonatate 100 Mg Capsule) 100 mg PO TID [facility] Stop: 12/08/21 21:29 Last Admin: 11/14/21 14:01 Dose: 100 mg Documented by: Carvedilol (Carvedilol 6.25 Mg Tab) 6.25 mg PO BID [facility] Stop: 12/08/21 21:29 Last Admin: 11/14/21 09:57 Dose: 6.25 mg Documented by: Cyanocobalamin (Cyanocobalamin 500 Mcg Tablet (Vitamin B-12)) 500 mcg PO DAILY [facility] Stop: 12/09/21 08:59 Last Admin: 11/14/21 10:06 Dose: 500 mcg Documented by: Dextrose (Dextrose 50% 50 Ml Syringe) 25 - 50 ml IV UD PRN; Protocol PRN Reason: Hypoglycemia Protocol Stop: 12/08/21 21:44 Diclofenac Sodium (Diclofenac Sod 1% Gel 100 Gm Tube) 2 gm EXT BID [facility] Stop: 12/13/21 12:59 Last Admin: 11/14/21 10:04 Dose: 2 gm Documented by: Dofetilide (Dofetilide 125 Mcg Capsule) 250 mcg PO BID [facility] Stop: 12/08/21 21:29 Last Admin: 11/14/21 10:03 Dose: 250 mcg Documented by: Enoxaparin Sodium (Enoxaparin Inj 40 Mg/0.4 Ml Syr) 40 mg SQ HS [facility] Stop: 12/08/21 21:29 Last Admin: 11/13/21 20:38 Dose: 40 mg Documented by: Estrogens Conjugated (Premarin Vag Crm 14 Appln/30 Gm Tube) 1 appln PV MoWeFr@2100 [facility] Stop: 12/13/21 20:59 Last Admin: 11/13/21 20:39 Dose: 1 appln Documented by: Ferrous Sulfate (Ferrous Sulfate 325 Mg Tab) 325 mg PO DAILY [facility] Stop: 12/09/21 08:59 Last Admin: 11/14/21 09:57 Dose: 325 mg Documented by: Folic Acid (Folic Acid 1 Mg Tab) 1 mg PO DAILY [facility] Stop: 12/09/21 08:59 Last Admin: 11/14/21 09:58 Dose: 1 mg Documented by: Glucagon (Glucagon For Inj 1 Mg Vial) 1 mg IM UD PRN; Protocol PRN Reason: Hypoglycemia Protocol Stop: 12/08/21 21:44 Glucose (Glucose 40% Gel 15 Gm Tube) 15 - 30 gm PO UD PRN; Protocol PRN Reason: Hypoglycemia Protocol Stop: 12/08/21 21:44 Glucose (Glucose 10 Tabs/Tube) 4 - 8 tabs PO UD PRN; Protocol PRN Reason: Hypoglycemia Protocol Stop: 12/08/21 21:44 Hydrocodone Bit/Homatropine Methylb (Hydrocodone/Homatropine Syrup 5mg/1.5mg 5ml Udp) 5 ml PO Q6H PRN PRN Reason: Cough Stop: 11/24/21 15:37 Last Admin: 11/11/21 12:44 Dose: 5 ml Documented by: Hydrocortisone (Hydrocortisone Hc 2.5% Crm 30gm Tube) 1 appln EXT BID PRN PRN Reason: hemorrhoid Stop: 12/08/21 20:19 Dexamethasone 6 mg/ Syringe 1.5 mls @ 1 mls/min IV Q24H [facility] Stop: 12/08/21 17:59 Last Admin: 11/14/21 09:58 Dose: 1 mls/min Documented by: Promethazine HCl 12.5 mg/ (Sodium Chloride) 50.5 mls @ 202 mls/hr IV Q6H PRN PRN Reason: Nausea And Vomiting Stop: 12/13/21 11:38 Last Infusion: 11/14/21 09:11 Dose: Infused Documented by: Insulin Aspart (Insulin Aspart Per Unit) 0 units SC [facility]; Protocol Stop: 12/13/21 20:59 Last Admin: 11/13/21 23:03 Dose: Not Given Documented by: Insulin Aspart (Insulin Aspart Per Unit) [address] [facility]; Protocol Stop: 12/13/21 11:29 Last Admin: 11/14/21 12:16 Dose: 11 units Documented by: Insulin Human NPH (Insulin Human Nph) 15 units SC DAILY [facility] Stop: 12/14/21 08:59 Last Admin: 11/14/21 10:02 Dose: 15 units Documented by: Levalbuterol HCl (Levalbuterol Hcl 1.25 Mg/3 Ml Neb) 1.25 mg NEB Q4H PRN; Protocol PRN Reason: Shortness Of Breath Or Wheezing Stop: 12/09/21 20:29 Levothyroxine Sodium (Levothyroxine Sodium 125 Mcg Tablet) [facility] Stop: 12/09/21 06:29 Last Admin: 11/14/21 05:23 Dose: 125 mcg Documented by: Magnesium Oxide (Magnesium Oxide 400 Mg Tab) 400 mg PO DAILY [facility]; Protocol Stop: 12/09/21 08:59 Last Admin: 11/14/21 09:59 Dose: 400 mg Documented by: Meclizine HCl (Meclizine Hcl 25 Mg Tab) 25 mg PO Q8H PRN PRN Reason: dizziness Stop: 12/08/21 21:14 Miscellaneous (Carbohydrates For Hypoglycemia ) 15 - 30 gm PO UD PRN PRN Reason: Hypoglycemia Treatment Stop: 12/08/21 21:44 Last Admin: 11/13/21 12:05 Dose: 30 gm Documented by: Miscellaneous Information (Pharmacy Glycemic Mgmt Consult) 1 ea N/A UD PRN PRN Reason: Consult Stop: 12/08/21 17:52 Multivitamins (Multivitamin Tab) 1 tab PO DAILY [facility] Stop: 12/09/21 08:59 Last Admin: 11/14/21 10:01 Dose: 1 tab Documented by: *Oxycodone Ir 10 Mg* Patient's Own Controlled Med 1 1 ea PO Q6H PRN PRN Reason: Pain Stop: 11/22/21 22:44 Last Admin: 11/14/21 14:42 Dose: 10 mg Documented by: *Oxycodone Ir 10 Mg* Non-Formulary Patient's Own Med 1 ea PO Q6H PRN PRN Reason: Pain Stop: 12/08/21 22:44 Last Admin: 11/13/21 18:00 Dose: 10 mg Documented by: Nystatin (Nystatin Susp 500,000 U/5 Ml Ud) 10 ml PO TID [facility] Stop: 11/22/21 20:59 Last Admin: 11/14/21 14:47 Dose: Not Given Documented by: Oxycodone HCl (Oxycodone Hcl 20 Mg Tabcr (Oxycontin)) 20 mg PO BID PRN PRN Reason: Pain Stop: 11/22/21 20:19 Last Admin: 11/13/21 20:38 Dose: 20 mg Documented by: Pantoprazole Sodium (Pantoprazole 40 Mg Tab) 40 mg PO DAILY PRN PRN Reason: Abdominal Pain Stop: 12/08/21 20:19 Last Admin: 11/10/21 02:35 Dose: 40 mg Documented by: Polyethylene Glycol (Polyethylene (Miralax) 17 Gm Pack) 17 gm PO DAILY PRN PRN Reason: Constipation Stop: 12/08/21 20:19 Potassium Chloride (Potassium Chloride 10 Meq Tabcr) 10 meq PO QAM [facility] Stop: 12/09/21 08:59 Last Admin: 11/14/21 10:00 Dose: 10 meq Documented by: Spironolactone (Spironolactone 12.5 Mg Tab) 12.5 mg PO MoWeFr@2100 [facility] Stop: 12/13/21 20:59 Last Admin: 11/13/21 20:38 Dose: 12.5 mg Documented by: Sucralfate (Sucralfate 1 Gm/10 Ml Udc) 1 gm PO QID [facility] Stop: 12/12/21 16:59 Last Admin: 11/14/21 14:01 Dose: 1 gm Documented by: Torsemide (Torsemide 10 Mg Tab) 10 mg PO QAM [facility] Stop: 12/09/21 08:59 Last Admin: 11/14/21 09:57 Dose: 10 mg Documented by: Vitamin D (Cholecalciferol 1,000 Units 25 Mcg Tab) 1,000 units PO DAILY [facility] Stop: 12/09/21 08:59 Last Admin: 11/14/21 10:01 Dose: 1,000 units Documented by: (1) COPD (chronic obstructive pulmonary disease) COPD type: unspecified COPD Qualified Code(s): J44.9 - Chronic obstructive pulmonary disease, unspecified
[2021-11-14 17:09] LABS: Calcium 8.5 mg/dl (8.5-10.1); Est GFR (African American) 47.7 ml/min; Est GFR (Non-African American) 41.1 ml/min; Magnesium 2.1 mg/dl (1.7-2.4); Potassium 4.3 mmol/L (3.5-5.1)
--- NOTE | 2021-11-14 17:58 | Electrocardiogram Report ---
Test Reason : Blood Pressure : / mmHG Vent. Rate : 067 BPM Atrial Rate : 067 BPM P-R Int : 170 ms QRS Dur : 086 ms QT Int : 406 ms P-R-T Axes : 058 -28 042 degrees QTc Int : 429 ms Sinus rhythm with Premature atrial complexes Incomplete right bundle branch block Abnormal ECG When compared with ECG of 14-NOV-2021 13:50, (unconfirmed) Premature atrial complexes are now Present ST no longer elevated in Lateral leads Nonspecific T wave abnormality has replaced inverted T waves in Lateral leads Confirmed by Nick Epperson ([id number]) on 11/14/2021 5:58:23 PM Referred By: REFERRED SELF Confirmed By:Primitivo Epperson
[2021-11-14] MEDS: carvediloL 3.125 MG TAB PO SCH (20:53)
[2021-11-14] MEDS: ENOXAPARIN INJ 40 MG/0.4 ML SYR SQ SCH (20:54)
[2021-11-14] MEDS: oxyCODONE HCL 20 MG TABCR (OxyCONTIN) PO PRN (21:08)
[2021-11-15] MEDS: LEVOTHYROXINE SODIUM 125 MCG TABLET PO SCH (05:58)
[2021-11-15 07:53] LABS: BUN Creatinine Ratio 25.7 (10-20); Calcium 8.3 mg/dl (8.5-10.1); Creatinine Clr Calc Pharmacy 56.2 ml/min; Est GFR (African American) 55.4 ml/min; Est GFR (Non-African American) 47.8 ml/min; Potassium 4.1 mmol/L (3.5-5.1)
[2021-11-15] MEDS: OXYCODONE 10 MG PO PRN ×2 (07:53→13:55)
--- NOTE | 2021-11-15 08:42 | Hospitalist Progress Note ---
Date of Service November 15, 2021 Assessment & Plan (1) Acute on chronic respiratory failure with hypoxia: Plan: This is a 76yo F with PMH of COPD and chronic hypoxemic respiratory failure on 3L NC O2, chronic diastolic CHF, DM II, HTN, HLD, ZEYAD, paroxysmal A Fib anti coagulated on Xarelto, anemia of chronic disease, chronic cor pulmonale, morbid obesity, CKD stage III, chronic pain syndrome on narcotics and other medical problems listed below who presents with worsening SOB and cough in setting of known covid. Home covid test was positive. Presented with increased oxygen needs from baseline, and worsening SOB and productive cough [facility] and was prescribed prednisone taper (down to 10mg daily) and Cefdinir course (completed) CXR with extensive patchy interstitial and alveolar opacities bilaterally characteristic of a viral type pneumonitis and probable Covid 19 pneumonia Initially required 8L Oxymask IV dexamethasone 6mg daily, out of window for remdesivir Continue scheduled duonebs, flutter valve, incentive spirometry, Tessalon Per les, home inhalers as needed Intermittent Lasix was given. Cont Hycodan to suppress cough which is working for her. Improved with oxygen supplementation back to her baseline. We will get PT and OT evaluation-has not been done yet She has been stable and requiring 4 L/min via nasal cannula to maintain saturation (2) Pneumonia due to COVID-19 virus: Plan: Management as above (3) Abdominal discomfort: Plan: Patient reported diarrhea followed by constipation; loose stool suspected 2/2 covid infection. She has had constipation unresolved with Relistor; start Colace and Miralax now. Also patient is coughing and notes some TTP from coughing; helped with Hycodan cough syrup. Patient reports vomiting overnight. Will review GI history in outpatient records as she has an extensive history of issues in the past. For now her abdomen is soft and nondistended and she is tolerating PO. Another thought is a relative withdrawal from oxycodone, which she hasn't been getting consistently as an inpatient. Will schedule her Oxy ER now and cont with Oxy IR per home regimen. Cont supportive measures. Sucralfate was started this admission and protonix was increased to twice daily with no success in improving her symptoms. will stop sucralfate now. Cont BID PPI. (4) COPD exacerbation: Plan: chronic, wheezing present with presence of pneumonia suggestive of an exacerbation of COPD. Recently completed an outpatient regimen of antibiotics. Cont steroids and nebulized bronchodilators PRN. (5) Paroxysmal atrial fibrillation: Plan: Continue Carvedilol-inceased by cardiology to 9.375mg PO BID (cautious increase given underlying wheezing), cont Tikosyn. Previously on Xarelto but discontinued 9 months ago due to hematuria, hematochezia Heart rate remains controlled. Cont to avoid QTc prolonging medications. (6) DM type 2 (diabetes mellitus, type 2): Plan: In setting of outpatient prednisone taper presented with hyperglycemia. Initial BSG >400, give IV insulin in ED. Consulting glycemic mgmt in setting of ongoing steroids Hemoglobin A1c is high at 8.9 Around goal on insulin, cont inpatient management of insulin per glycemic pharmacist consult (7) Oral thrush: Plan: cont nystatin swish regimen. (8) Hypothyroidism: Plan: TSH 0.221, Free T4 high at 1.96. Reduced levothyroxine dose from 150 to 125 mcg. Repeat TFTs as outpatient. (9) Chronic diastolic CHF (congestive heart failure): Plan: Appears euvolemic, Continue torsemide 10mg daily, carvedilol dosed as above. (10) CKD (chronic kidney disease), stage III: Plan: Around her baseline, cont to monitor with BMP periodically. (11) Chronic pain syndrome: Plan: Arthritis of multiple joints. Home regimen includes Oxycontin 20mg BID and IR o xycodone 10mg Q6H PRN Continue dosing per home regimen, monitor closely --Notably scheduled her Oxy ER 20mg BID which was PRN. She is dependent on this and should take it consistently. Monitor mental status and vitals with additional narcotic cough syrup. (12) ZEYAD (obstructive sleep apnea): Plan: On 3L NC continuously at home (13) Constipation due to opioid therapy: Plan: Given relistor this admission. Not on stool softeners or laxatives. Will add both now. Encourage movement as needed. (14) DVT prophylaxis: Plan: DVT Ppx: SQ lovenox Code status: FULL PCP: [facility] Dispo: Cont PCU pending cardiac stability and improvement in abdominal symptoms/cough. Carli Meek DO [facility] Hospitalist Admission and Anticipated Discharge Date Admission Date: November 08, 2021 Subjective 76 yo F presents admitted for covid pneumonia She reports some burning abdominal discomfort and intermittent vomiting over the last couple of days Diarrhea is no longer present and she is tolerating PO afebrile and denies SOB or CP still requiring oxygen supplementation, but no escalation in needs overnight. +palpitations overnight--noted cardiology evaluation in last 24 hours Patient appears comfortable with the plan. +coughing, productive of green phlegm, feels this may be contributing to her generalized abdominal soreness. denies any UTI symptoms-reports a prolapsed bladder and had one night where she had excessive urination without urgency or dysuria. Review of Systems Review of Systems: All systems were reviewed and negative except as indicated in subjective above. Physical Exam Physical Exam: CONSTITUTIONAL: obese, vitals as above, generally well- appearing, NAD EYES: normal conjunctivae, no scleral icterus ENT: external ear and nose normal, oropharynx clear NECK: trachea midline RESPIRATORY: diffuse wheezing throughout all lung solorzano, normal respiratory ef fort, no conversational dyspnea. CARDIOVASCULAR: regular rate and rhythm, S1 and 2 heard without murmurs, gallops or rubs, no JVD, no peripheral edema CHEST: inspection of chest was normal GASTROINTESTINAL: soft, generalized tenderness to palpation without guarding, nondistended, multiple areas of ecchymosis present from DVT prophylaxis MUSCULOSKELETAL: strength 5/5 throughout, head is normocephalic and atraumatic SKIN: warm and dry NEUROLOGIC: CN 2-12 grossly intact, no sensory deficit, normal cognition, normal speech, no tremor, no gross focal deficits. PSYCHIATRIC: alert cooperative and oriented to person, place and time. Results & Data Results & Data ([facility]) Vital Signs (Past 12 Hours) Vital Signs Temp Pulse Resp BP Pulse Ox 11/15/21 07:16 36.6 C 68 18 123/47 L 97 11/15/21 02:55 36.6 C 67 20 118/62 96 11/14/21 22:28 36.6 C 81 20 116/62 92 Laboratory Results BMP 11/14/21 11/15/21 16:30 07:05 Sodium 133 L 133 L Potassium 4.3 4.1 Chloride 93 L 94 L Carbon Dioxide 34 H 35 H BUN 32 H 29 H Creatinine 1.28 H 1.13 Glucose 171 H 138 H Calcium 8.5 8.3 L Medications Administered Current Inpatient Medications Acetaminophen (Acetaminophen 325 Mg Tab) 650 mg PO Q4H PRN PRN Reason: Pain or Fever Stop: 12/08/21 20:19 Albuterol (Albuterol Hfa 8 Gm Inhaler) 2 puffs INH Q6R PRN PRN Reason: Shortness Of Breath Stop: 12/08/21 21:14 Albuterol (Albut/Ipratrop 3mg/0.5mg Neb 3 Ml Vial) 3 ml NEB Q4R PRN; Protocol PRN Reason: Shortness Of Breath Or Wheezing Stop: 12/09/21 08:24 Last Admin: 11/11/21 12:31 Dose: 3 ml Documented by: Ascorbic Acid (Ascorbic Acid 500 Mg Tab) 250 mg PO DAILY [facility] Stop: 12/09/21 08:59 Last Admin: 11/14/21 10:06 Dose: 250 mg Documented by: Baclofen (Baclofen 10 Mg Tab) 5 mg PO BID [facility] Stop: 12/08/21 21:29 Last Admin: 11/14/21 20:53 Dose: 5 mg Documented by: Benzonatate (Benzonatate 100 Mg Capsule) 100 mg PO TID [facility] Stop: 12/08/21 21:29 Last Admin: 11/14/21 20:53 Dose: 100 mg Documented by: Carvedilol (Carvedilol 3.125 Mg Tab) 9.375 mg PO BID [facility] Stop: 12/14/21 20:59 Last Admin: 11/14/21 20:53 Dose: 9.375 mg Documented by: Cyanocobalamin (Cyanocobalamin 500 Mcg Tablet (Vitamin B-12)) 500 mcg PO DAILY [facility] Stop: 12/09/21 08:59 Last Admin: 11/14/21 10:06 Dose: 500 mcg Documented by: Dextrose (Dextrose 50% 50 Ml Syringe) 25 - 50 ml IV UD PRN; Protocol PRN Reason: Hypoglycemia Protocol Stop: 12/08/21 21:44 Diclofenac Sodium (Diclofenac Sod 1% Gel 100 Gm Tube) 2 gm EXT BID [facility] Stop: 12/13/21 12:59 Last Admin: 11/14/21 20:54 Dose: 2 gm Documented by: Dofetilide (Dofetilide 125 Mcg Capsule) 250 mcg PO BID [facility] Stop: 12/08/21 21:29 Last Admin: 11/14/21 20:54 Dose: 250 mcg Documented by: Enoxaparin Sodium (Enoxaparin Inj 40 Mg/0.4 Ml Syr) 40 mg SQ HS [facility] Stop: 12/08/21 21:29 Last Admin: 11/14/21 20:54 Dose: 40 mg Documented by: Estrogens Conjugated (Premarin Vag Crm 14 Appln/30 Gm Tube) 1 appln PV MoWeFr@2100 [facility] Stop: 12/13/21 20:59 Last Admin: 11/13/21 20:39 Dose: 1 appln Documented by: Ferrous Sulfate (Ferrous Sulfate 325 Mg Tab) 325 mg PO DAILY Y[facility] Stop: 12/09/21 08:59 Last Admin: 11/14/21 09:57 Dose: 325 mg Documented by: Folic Acid (Folic Acid 1 Mg Tab) 1 mg PO DAILY [facility] Stop: 12/09/21 08:59 Last Admin: 11/14/21 09:58 Dose: 1 mg Documented by: Glucagon (Glucagon For Inj 1 Mg Vial) 1 mg IM UD PRN; Protocol PRN Reason: Hypoglycemia Protocol Stop: 12/08/21 21:44 Glucose (Glucose 40% Gel 15 Gm Tube) 15 - 30 gm PO UD PRN; Protocol PRN Reason: Hypoglycemia Protocol Stop: 12/08/21 21:44 Glucose (Glucose 10 Tabs/Tube) 4 - 8 tabs PO UD PRN; Protocol PRN Reason: Hypoglycemia Protocol Stop: 12/08/21 21:44 Hydrocodone Bit/Homatropine Methylb (Hydrocodone/Homatropine Syrup 5mg/1.5mg 5ml Udp) 5 ml PO Q6H PRN PRN Reason: Cough Stop: 11/24/21 15:37 Last Admin: 11/11/21 12:44 Dose: 5 ml Documented by: Hydrocortisone (Hydrocortisone Hc 2.5% Crm 30gm Tube) 1 appln EXT BID PRN PRN Reason: hemorrhoid Stop: 12/08/21 20:19 Dexamethasone 6 mg/ Syringe 1.5 mls @ 1 mls/min IV Q24H [facility] Stop: 12/08/21 17:59 Last Admin: 11/14/21 09:58 Dose: 1 mls/min Documented by: Promethazine HCl 12.5 mg/ (Sodium Chloride) 50.5 mls @ 202 mls/hr IV Q6H PRN PRN Reason: Nausea And Vomiting Stop: 12/13/21 11:38 Last Infusion: 11/14/21 09:11 Dose: Infused Documented by: Insulin Aspart (Insulin Aspart Per Unit) 0 units SC [facility]; Protocol Stop: 12/13/21 20:59 Last Admin: 11/14/21 23:53 Dose: Not Given Documented by: Insulin Aspart (Insulin Aspart Per Unit) 0 units SC [facility]; Protocol Stop: 12/13/21 11:29 Last Admin: 11/14/21 17:33 Dose: 9 units Documented by: Insulin Human NPH (Insulin Human Nph) 15 units SC DAILY [facility] Stop: 12/14/21 08:59 Last Admin: 11/14/21 10:02 Dose: 15 units Documented by: Levalbuterol HCl (Levalbuterol Hcl 1.25 Mg/3 Ml Neb) 1.25 mg NEB Q4H PRN; Protocol PRN Reason: Shortness Of Breath Or Wheezing Stop: 12/09/21 20:29 Levothyroxine Sodium ([facility]roxine Sodium 125 Mcg Tablet) [facility] Stop: 12/09/21 06:29 Last Admin: 11/15/21 05:58 Dose: 125 mcg Documented by: Magnesium Oxide (Magnesium Oxide 400 Mg Tab) 400 mg PO DAILY [facility]; Protocol Stop: 12/09/21 08:59 Last Admin: 11/14/21 09:59 Dose: 400 mg Documented by: Meclizine HCl (Meclizine Hcl 25 Mg Tab) 25 mg PO Q8H PRN PRN Reason: dizziness Stop: 12/08/21 21:14 Miscellaneous (Carbohydrates For Hypoglycemia ) 15 - 30 gm PO UD PRN PRN Reason: Hypoglycemia Treatment Stop: 12/08/21 21:44 Last Admin: 11/13/21 12:05 Dose: 30 gm Documented by: Miscellaneous Information (Pharmacy Glycemic Mgmt Consult) 1 ea N/A UD PRN PRN Reason: Consult Stop: 12/08/21 17:52 Multivitamins (Multivitamin Tab) 1 tab PO DAILY [facility] Stop: 12/09/21 08:59 Last Admin: 11/14/21 10:01 Dose: 1 tab Documented by: *Oxycodone Ir 10 Mg* Patient's Own Controlled Med 1 1 ea PO Q6H PRN PRN Reason: Pain Stop: 11/22/21 22:44 Last Admin: 11/15/21 07:53 Dose: 10 mg Documented by: *Oxycodone Ir 10 Mg* Non-Formulary Patient's Own Med 1 ea PO Q6H PRN PRN Reason: Pain Stop: 12/08/21 22:44 Last Admin: 11/13/21 18:00 Dose: 10 mg Documented by: Nystatin (Nystatin Susp 500,000 U/5 Ml Udc) 10 ml PO TID [facility] Stop: 11/22/21 20:59 Last Admin: 11/14/21 20:54 Dose: 10 ml Documented by: Oxycodone HCl (Oxycodone Hcl 20 Mg Tabcr (Oxycontin)) 20 mg PO BID PRN PRN Reason: Pain Stop: 11/22/21 20:19 Last Admin: 11/14/21 21:08 Dose: 20 mg Documented by: Pantoprazole Sodium (Pantoprazole 40 Mg Tab) 40 mg PO DAILY PRN PRN Reason: Abdominal Pain Stop: 12/08/21 20:19 Last Admin: 11/10/21 02:35 Dose: 40 mg Documented by: Polyethylene Glycol (Polyethylene (Miralax) 17 Gm Pack) 17 gm PO DAILY PRN PRN Reason: Constipation Stop: 12/08/21 20:19 Potassium Chloride (Potassium Chloride 10 Meq Tabcr) 10 meq PO QAM [facility] Stop: 12/09/21 08:59 Last Admin: 11/14/21 10:00 Dose: 10 meq Documented by: Spironolactone (Spironolactone 12.5 Mg Tab) 12.5 mg PO MoWeFr@2100 [facility] Stop: 12/13/21 20:59 Last Admin: 11/13/21 20:38 Dose: 12.5 mg Documented by: Sucralfate (Sucralfate 1 Gm/10 Ml Udc) 1 gm PO QID [facility] Stop: 12/12/21 16:59 Last Admin: 11/14/21 20:53 Dose: 1 gm Documented by: Torsemide (Torsemide 10 Mg Tab) 10 mg PO QAM [facility] Stop: 12/09/21 08:59 Last Admin: 11/14/21 09:57 Dose: 10 mg Documented by: Vitamin D (Cholecalciferol 1,000 Units 25 Mcg Tab) 1,000 units PO DAILY [facility] Stop: 12/09/21 08:59 Last Admin: 11/14/21 10:01 Dose: 1,000 units Documented by:
[2021-11-15 09:06] LABS: Basophils # (auto) 0.01 K/uL (0-0.2); Basophils % (auto) 0.1 %; Eosinophils # (auto) 0.07 K/uL (0-0.5); Eosinophils % (auto) 0.7 %; Hematocrit (blood only) 29.6 % (37-47); Hemoglobin 8.5 g/dL (12.0-16.0); Immature Granulocytes # (auto) 0.07 K/uL (0.00-0.02); Immature Granulocytes % (auto) 0.7 %; Lymphocytes # (auto) 0.97 K/uL (1.2-3.4); Lymphocytes % (auto) 9.3 %; Mean Corpuscular Hemoglobin 23.7 pg (25-34); Mean Corpuscular Hgb Conc 28.7 g/dL (32-36); Mean Corpuscular Volume 82.5 fL (80-100); Mean Platelet Volume 9.8 fL (7.4-10.4); Monocytes # (auto) 1.01 K/uL (0.11-0.59); Monocytes % (auto) 9.7 %; Neutrophils # (auto) 8.31 K/uL (1.4-6.5); Neutrophils % (auto) 79.5 %; Platelet Count 249 K/uL (130-400); RDW Coefficient of Variation 17.4 % (11.5-14.5); RDW Standard Deviation 52.1 fL (36.4-46.3); Red Blood Count 3.59 M/uL (4.2-5.4); White Blood Count 10.44 K/uL (4.8-10.8)
[2021-11-15] MEDS: INSULIN ASPART PER UNIT SC SCH ×4 (09:06→21:44)
[2021-11-15] MEDS: INSULIN HUMAN NPH SC SCH (09:07)
[2021-11-15] MEDS: dexAMETHasone 6 MG in SYRINGE 0 ML IV SCH (09:18)
[2021-11-15] MEDS: BENZONATATE 100 MG CAPSULE PO SCH ×3 (09:21→21:14)
[2021-11-15] MEDS: DICLOFENAC SOD 1% GEL 100 GM TUBE EXT SCH ×2 (09:21→21:12)
[2021-11-15] MEDS: MULTIVITAMIN TAB PO SCH (09:21)
[2021-11-15] MEDS: CHOLECALCIFEROL 1,000 UNITS 25 MCG TAB PO SCH (09:22)
[2021-11-15] MEDS: FOLIC ACID 1 MG TAB PO SCH (09:22)
[2021-11-15] MEDS: FERROUS SULFATE 325 MG TAB PO SCH (09:22)
[2021-11-15] MEDS: carvediloL 3.125 MG TAB PO SCH ×2 (09:23→21:13)
[2021-11-15] MEDS: TORSEMIDE 10 MG TAB PO SCH (09:24)
[2021-11-15] MEDS: ASCORBIC ACID 500 MG TAB PO SCH (09:24)
[2021-11-15] MEDS: DOFETILIDE 125 MCG CAPSULE PO SCH ×2 (09:25→21:13)
[2021-11-15] MEDS: NYSTATIN SUSP 500,000 U/5 ML UDC PO SCH ×3 (09:26→21:13)
[2021-11-15] MEDS: SUCRALFATE 1 GM/10 ML UDC PO SCH ×2 (09:26→14:05)
[2021-11-15] MEDS: CYANOCOBALAMIN (B-12) 500 MCG TABLET PO SCH (09:26)
[2021-11-15] MEDS: BACLOFEN 10 MG TAB PO SCH ×2 (09:27→21:14)
[2021-11-15] MEDS: POTASSIUM CHLORIDE 10 MEQ TABCR PO SCH (09:27)
[2021-11-15] MEDS: MAGNESIUM OXIDE 400 MG TAB PO SCH (09:27)
[2021-11-15] MEDS ORDERED: POLYETHYLENE (MIRALAX) 17 GM PACK PO SCH (13:15)
--- NOTE | 2021-11-15 13:53 | Cardiology Progress Note ---
Date of Service November 15, 2021 Assessment & Plan (1) Paroxysmal atrial fibrillation: (2) Pneumonia due to COVID-19 virus: (3) COPD (chronic obstructive pulmonary disease): (4) ZEYAD (obstructive sleep apnea): Plan: Patient is a 76-year-old female with very complex issues as outlined including severe chronic obstructive lung disease/sleep apnea admitted with Covid related pneumonia. Since admission she has manifested episodes of paroxysmal atrial fibrillation/atrial tachycardia minimally symptomatic. She has been aware of these for several months especially mid afternoon. No associated syncope chest pain or worsening shortness of breath. Episodes being more frequent during current hospitalization likely being driven by underlying pulmonary issues Plan: Continue current dosing of Tikosyn and increased dose of carvedilol Add diltiazem 30 mg 3 times daily. If this becomes persistent may need to once again trial increasing Tikosyn but at risk. Future considerations may warrant AV junction ablation with pacemaker but pulmonary status currently not to allow Admission and Anticipated Discharge Date Admission Date: November 08, 2021 Subjective Patient's chart medications and current care discussed with caregivers. Patient not personally examined Minimally symptomatic but still having atrial fibrillation more persistent this afternoon. No dizziness or lightheadedness no worsening respiratory status. Review of Systems Review of Systems: All systems reviewed & are unremarkable except as noted in Subjective Results & Data ([facility]) Vital Signs (Past 12 Hours) Vital Signs Temp Pulse Resp BP BP Pulse Ox Pulse Ox 11/15/21 13:27 91 11/15/21 11:08 36.6 C 131 H 19 106/82 96 11/15/21 07:16 36.6 C 68 18 123/47 L 97 11/15/21 02:55 36.6 C 67 20 118/62 96 Pulse Ox Pulse Ox 11/15/21 13:27 94 90 11/15/21 11:08 11/15/21 07:16 11/15/21 02:55 Laboratory Results Laboratory Results - last 24 hr 11/14/21 11/14/21 11/14/21 15:00 16:30 16:49 WBC RBC Hgb Hct MCV MCH MCHC RDW Std Deviation RDW Coeff of Lawrence Plt Count MPV Immature Gran % (Auto) Neut % (Auto) Lymph % (Auto) [place] % (Auto) Eos % (Auto) Baso % (Auto) Neut # (Auto) Lymph # (Auto) [place] # (Auto) Eos # (Auto) Baso # (Auto) Immature Gran # (Auto) Sodium 133 L Potassium 4.3 Chloride 93 L Carbon Dioxide 34 H Anion Gap 6 BUN 32 H Creatinine 1.28 H Est Cr Clr Drug Dosing 51.0 Est GFR ( Amer) 47.7 Est GFR (Non-Af Amer) 41.1 BUN/Creatinine Ratio 25.0 H Glucose 171 H POC Glucose 73 163 H Calcium 8.5 Magnesium 2.1 11/14/21 11/15/21 11/15/21 20:19 07:05 07:05 WBC 10.44 RBC 3.59 L Hgb 8.5 L Hct 29.6 L MCV 82.5 MCH 23.7 L MCHC 28.7 L RDW Std Deviation 52.1 H RDW Coeff of Lawrence 17.4 H Plt Count 249 MPV 9.8 Immature Gran % (Auto) 0.7 Neut % (Auto) 79.5 Lymph % (Auto) 9.3 [place] % (Auto) 9.7 Eos % (Auto) 0.7 Baso % (Auto) 0.1 Neut # (Auto) 8.31 H Lymph # (Auto) 0.97 L [place] # (Auto) 1.01 H Eos # (Auto) 0.07 Baso # (Auto) 0.01 Immature Gran # (Auto) 0.07 H Sodium 133 L Potassium 4.1 Chloride 94 L Carbon Dioxide 35 H Anion Gap 4 BUN 29 H Creatinine 1.13 Est Cr Clr Drug Dosing 56.2 Est GFR ( Amer) 55.4 Est GFR (Non-Af Amer) 47.8 BUN/Creatinine Ratio 25.7 H Glucose 138 H POC Glucose 168 H Calcium 8.3 L Magnesium 11/15/21 11/15/21 07:48 11:52 WBC RBC Hgb Hct MCV MCH MCHC RDW Std Deviation RDW Coeff of Lawrence Plt Count MPV Immature Gran % (Auto) Neut % (Auto) Lymph % (Auto) [place] % (Auto) Eos % (Auto) Baso % (Auto) Neut # (Auto) Lymph # (Auto) [place] # (Auto) Eos # (Auto) Baso # (Auto) Immature Gran # (Auto) Sodium Potassium Chloride Carbon Dioxide Anion Gap BUN Creatinine Est Cr Clr Drug Dosing Est GFR ( Amer) Est GFR (Non-Af Amer) BUN/Creatinine Ratio Glucose POC Glucose 171 H 140 H Calcium Magnesium (1) COPD (chronic obstructive pulmonary disease) COPD type: unspecified COPD Qualified Code(s): J44.9 - Chronic obstructive pulmonary disease, unspecified
[2021-11-15] MEDS: dilTIAZem HCL 30 MG TAB PO SCH ×2 (16:33→21:14)
[2021-11-15] MEDS: PANTOprazole 40 MG TAB PO SCH (21:13)
[2021-11-15] MEDS: ENOXAPARIN INJ 40 MG/0.4 ML SYR SQ SCH (21:14)
[2021-11-15] MEDS: SPIRONOLACTONE 12.5 MG TAB PO SCH (21:14)
[2021-11-15] MEDS: PREMARIN VAG CRM 14 APPLN/30 GM TUBE PV SCH (21:15)
[2021-11-15] MEDS: ALBUT/IPRATROP 3MG/0.5MG NEB 3 ML VIAL NEB PRN (21:17)
[2021-11-15] MEDS: oxyCODONE HCL 20 MG TABCR (OxyCONTIN) PO SCH (21:35)
[2021-11-15] MEDS: DOCUSATE SODIUM 100 MG CAP PO SCH (21:35)
[2021-11-16] MEDS: LEVOTHYROXINE SODIUM 125 MCG TABLET PO SCH (05:44)
[2021-11-16] MEDS: OXYCODONE 10 MG PO PRN (08:25)
[2021-11-16 08:26] LABS: Hematocrit (blood only) 29.3 % (37-47); Hemoglobin 8.4 g/dL (12.0-16.0); Mean Corpuscular Hemoglobin 23.3 pg (25-34); Mean Corpuscular Hgb Conc 28.7 g/dL (32-36); Mean Corpuscular Volume 81.2 fL (80-100); Mean Platelet Volume 9.3 fL (7.4-10.4); Platelet Count 261 K/uL (130-400); RDW Coefficient of Variation 17.3 % (11.5-14.5); RDW Standard Deviation 51.5 fL (36.4-46.3); Red Blood Count 3.61 M/uL (4.2-5.4); White Blood Count 9.06 K/uL (4.8-10.8)
[2021-11-16] MEDS: carvediloL 3.125 MG TAB PO SCH ×2 (08:26→20:50)
[2021-11-16] MEDS: dilTIAZem HCL 30 MG TAB PO SCH ×3 (08:27→20:47)
[2021-11-16] MEDS: PANTOprazole 40 MG TAB PO SCH ×2 (08:28→20:51)
[2021-11-16] MEDS: MAGNESIUM OXIDE 400 MG TAB PO SCH (08:29)
[2021-11-16] MEDS: POTASSIUM CHLORIDE 10 MEQ TABCR PO SCH (08:30)
[2021-11-16] MEDS: TORSEMIDE 10 MG TAB PO SCH (08:30)
[2021-11-16] MEDS: INSULIN ASPART PER UNIT SC SCH ×4 (08:48→21:04)
[2021-11-16] MEDS: INSULIN HUMAN NPH SC SCH (08:49)
[2021-11-16 08:52] LABS: BUN Creatinine Ratio 23.3 (10-20); C Reactive Protein 0.62 mg/dl (0-0.5); Calcium 8.2 mg/dl (8.5-10.1); Creatinine Clr Calc Pharmacy 53.1 ml/min; Est GFR (African American) 51.6 ml/min; Est GFR (Non-African American) 44.5 ml/min; Potassium 4.3 mmol/L (3.5-5.1)
[2021-11-16] MEDS: dexAMETHasone 4 MG TAB PO SCH (09:01)
[2021-11-16] MEDS: NYSTATIN SUSP 500,000 U/5 ML UDC PO SCH ×3 (09:02→20:51)
[2021-11-16] MEDS: CYANOCOBALAMIN (B-12) 500 MCG TABLET PO SCH (09:03)
[2021-11-16] MEDS: DOFETILIDE 125 MCG CAPSULE PO SCH ×2 (09:03→20:50)
[2021-11-16] MEDS: ASCORBIC ACID 500 MG TAB PO SCH (09:04)
[2021-11-16] MEDS: MULTIVITAMIN TAB PO SCH (09:04)
[2021-11-16] MEDS: FERROUS SULFATE 325 MG TAB PO SCH (09:05)
[2021-11-16] MEDS: FOLIC ACID 1 MG TAB PO SCH (09:06)
[2021-11-16] MEDS: CHOLECALCIFEROL 1,000 UNITS 25 MCG TAB PO SCH (09:06)
[2021-11-16] MEDS: BENZONATATE 100 MG CAPSULE PO SCH ×3 (09:08→20:47)
[2021-11-16] MEDS: POLYETHYLENE (MIRALAX) 17 GM PACK PO SCH (09:08)
[2021-11-16] MEDS: BACLOFEN 10 MG TAB PO SCH ×2 (09:09→20:48)
[2021-11-16] MEDS: DICLOFENAC SOD 1% GEL 100 GM TUBE EXT SCH ×2 (09:11→20:52)
[2021-11-16] MEDS: DOCUSATE SODIUM 100 MG CAP PO SCH ×2 (09:20→20:51)
[2021-11-16] MEDS: oxyCODONE HCL 20 MG TABCR (OxyCONTIN) PO SCH ×2 (10:29→21:16)
--- NOTE | 2021-11-16 14:25 | Pharmacy Report ---
Pharmacy Glycemic Short Note 2 - Date of Service November 16, 2021 - Glycemic Short BSG Results (Last 24 hours): 11/15/21 11/15/21 11/16/21 16:55 20:24 07:56 Glucose 127 H POC Glucose 118 H 217 H 11/16/21 11/16/21 07:59 11:47 Glucose POC Glucose 130 H 141 H OUTPATIENT ANTIDIABETIC REGIMEN: * Metformin 500 mg PO qpm * Recently started on prednisone taper * HbA1c: 8.9% (11/09/21) ASSESSMENT: 11/16/21 * Patient's BSGs yesterday were [phone] mg/dL. Today's BSGs are 130-141 mg/dL. * Dexamethasone changed to 6 mg PO from IV. * Decrease NPH to 10 units daily due to change in route of dexamethasone. * Continue Novolog. 11/14/21: * Lissette received 42 units of insulin yesterday (20 units of NPH + 22 units of Novolog) * Both basal and bolus insulin doses were decreased for today. She has had no episodes of hypoglycemia thus far. * She was hyperglycemic at lunchtime. Of note, there was only 1.5 hours between AM novolog administration and lunch BSG check therefore I will not react to this value. 11/13/21: * Ms Fierro had a hypoglycemic episode overnight. Suspect that this was due to pt vomiting yesterday afternoon/evening. It also looks as though pt received Novolog 10 units at HS instead of 7 units per insulin calculator. * Fasting BSG was reasonable this morning. Unfortunately, pt was hypoglycemic at lunchtime. * Novolog parameters loosened, particularly at HS. Pt will get less carb coverage with all meals moving forward. NPH reduced for tomorrow. 11/12 * BSGs have been relatively well-controlled with the exception of a hypoglycemic event yesterday evening. Pt was then hyperglycemic at bedtime, presumably d/t lack of carb coverage with dinner d/t low BSG. * NPH dose reduced this morning in an effort to prevent repeat hypoglycemia this afternoon/evening. * Patient continues to receive IV dexamethasone daily. Pt appears to be tolerating diabetic diet. 11/10 * BSGs reasonably well-controlled yesterday, sans one outlier BSG elevation at lunch (279 mg/dL) * Received 64 units of insulin (25 units of NPH and 39 units of prandial/correctional bolus) * Continues on dexamethasone 6 mg IV daily - will increase NPH today and tighten AM Novolog * Lunch BSG elevated again today, plan to further tighten AM Novolog tomorrow * STACY noted today, SCr 1.11 -> 1.66 mg/dL 11/09 * MH is a 76 year old female who presented to ED on 11/08/21 with increased shortness of breath with positive COVID test ~10 days ago * Prednisone taper started ~10 days ago * Pertinent PMH includes CKD, COPD, CHF, T2DM, and morbid obesity * BSGs elevated on presentation (430 mg/dL), patient also started on IV dexamethasone 6 mg daily * Lantus ordered last evening with aggressive Novolog parameters resulting in asymptomatic hypoglycemic episode this morning (68 mg/dL) * Will plan to switch to NPH insulin to be given with IV dexamethasone in AM * will be slightly conservative with initial dosing in light of hypoglycemia this morning and based on age/comorbidities PLAN FOR INPATIENT GLYCEMIC CONTROL: * Hold outpatient oral diabetes medications * Basal insulin * NPH 10 units SC daily with PO dexamethasone * Bolus insulin * NovoLog per scale ACHS or Q6hrs while NPO * Goal Range: Low 110 mg/dL - High 140 mg/dL * Correction Factor: 15 mg/dL/unit (20 mg/dL/unit at HS) * Nutritional / Prandial insulin per carb ratio of 1 unit per 6 grams CHO consumed with meals. No carb coverage at HS. PLAN FOR DISCHARGE: * HbA1c of 8.9% suggests poor outpatient glycemic control, but may also be in part due to recent outpatient prednisone usage * Reasonable goal for this patient would be HbA1c less than 8% in light of age and comorbidities * baseline eGFR ~40-50 mL/min/1.73 m2 - assuming return to this baseline at time of discharge * Patient would likely benefit from addition of SGLT-2 inhibitor, i.e. empagliflozin 10 mg PO daily in light of CKD (w/ eGFR > 30) and CHF * Okay to continue metformin
--- NOTE | 2021-11-16 17:25 | Cardiology Progress Note ---
Date of Service November 16, 2021 Assessment & Plan (1) Paroxysmal atrial fibrillation: (2) Pneumonia due to COVID-19 virus: (3) COPD (chronic obstructive pulmonary disease): (4) ZEYAD (obstructive sleep apnea): Plan: Patient is a 76-year-old female with very complex issues as outlined including severe chronic obstructive lung disease/sleep apnea admitted with Covid related pneumonia. Since admission she has manifested episodes of paroxysmal atrial fibrillation/atrial tachycardia minimally symptomatic. She has been aware of these for several months especially mid afternoon. No associated syncope chest pain or worsening shortness of breath. Episodes being more frequent during current hospitalization likely being driven by underlying pulmonary issues Currently remaining in sinus rhythm without recurrence of arrhythmias since adding low-dose diltiazem Plan: Continue current dosing of Tikosyn carvedilol and diltiazem. If low blood pressure becomes more of an issue would reduce carvedilol back to 6.25 mg twice per day. Admission and Anticipated Discharge Date Admission Date: November 08, 2021 Subjective Patient's chart and medications were reviewed care discussed with caregiver On telemetry no further atrial arrhythmias since initiating diltiazem. Physical Exam Respiratory: Auscultation: + rhonchi (With forced cough) Results & Data ([facility]) Vital Signs (Past 12 Hours) Vital Signs Temp Pulse Resp BP BP Pulse Ox 11/16/21 13:47 86 106/75 11/16/21 11:12 36.8 C 58 L 20 98/47 L 97 11/16/21 06:55 36.8 C 72 18 107/67 96 Laboratory Results Laboratory Results - last 24 hr 11/15/21 11/16/21 11/16/21 20:24 07:56 07:56 WBC 9.06 RBC 3.61 L Hgb 8.4 L Hct 29.3 L MCV 81.2 MCH 23.3 L MCHC 28.7 L RDW Std Deviation 51.5 H RDW Coeff of [place] 17.3 H Plt Count 261 MPV 9.3 Sodium 134 L Potassium 4.3 Chloride 95 L Carbon Dioxide 34 H Anion Gap 5 BUN 28 H Creatinine 1.20 Est Cr Clr Drug Dosing 53.1 Est GFR ( Amer) 51.6 Est GFR (Non-Af Amer) 44.5 BUN/Creatinine Ratio 23.3 H Glucose 127 H POC Glucose 217 H Calcium 8.2 L C-Reactive Protein 0.62 H 01/27/22 01/27/22 01/27/22 07:59 11:47 14:56 WBC RBC Hgb Hct MCV MCH MCHC RDW Std Deviation RDW Coeff of [place] Plt Count MPV Sodium Potassium Chloride Carbon Dioxide Anion Gap BUN Creatinine Est Cr Clr Drug Dosing Est GFR ( Amer) Est GFR (Non-Af Amer) BUN/Creatinine Ratio Glucose POC Glucose 130 H 141 H 122 H Calcium C-Reactive Protein 11/16/21 17:02 WBC RBC Hgb Hct MCV MCH MCHC RDW Std Deviation RDW Coeff of [place] Plt Count MPV Sodium Potassium Chloride Carbon Dioxide Anion Gap BUN Creatinine Est Cr Clr Drug Dosing Est GFR ( Amer) Est GFR (Non-Af Amer) BUN/Creatinine Ratio Glucose POC Glucose 144 H Calcium C-Reactive Protein (1) COPD (chronic obstructive pulmonary disease) COPD type: unspecified COPD Qualified Code(s): J44.9 - Chronic obstructive pulmonary disease, unspecified
--- NOTE | 2021-11-16 19:20 | Hospitalist Progress Note ---
Date of Service November 16, 2021 Assessment & Plan (1) Acute on chronic respiratory failure with hypoxia: Plan: This is a 76yo F with PMH of COPD and chronic hypoxemic respiratory failure on 3L NC O2, chronic diastolic CHF, DM II, HTN, HLD, ZEYAD, paroxysmal A Fib anti coagulated on Xarelto, anemia of chronic disease, chronic cor pulmonale, morbid obesity, CKD stage III, chronic pain syndrome on narcotics and other medical problems listed below who presents with worsening SOB and cough in setting of known covid. Home covid test was positive. Presented with increased oxygen needs from baseline, and worsening SOB and productive cough [facility] and was prescribed prednisone taper (down to 10mg daily) and Cefdinir course (completed) CXR with extensive patchy interstitial and alveolar opacities bilaterally characteristic of a viral type pneumonitis and probable Covid 19 pneumonia Initially required 8L Oxymask IV dexamethasone 6mg daily, out of window for remdesivir Continue scheduled duonebs, flutter valve, incentive spirometry, Tessalon Per les, home inhalers as needed Intermittent Lasix was given. Cont Hycodan to suppress cough which is working for her. Improved with oxygen supplementation back to her baseline. We will get PT and OT evaluation-has not been done yet She has been stable and requiring 4 L/min via nasal cannula to maintain saturation (2) Pneumonia due to COVID-19 virus: Plan: Management as above (3) Abdominal discomfort: Plan: Patient reported diarrhea followed by constipation; loose stool suspected 2/2 covid infection. She has had constipation unresolved with Relistor; start Colace and Miralax now. Also patient is coughing and notes some TTP from coughing; helped with Hycodan cough syrup. Patient reports vomiting overnight. Will review GI history in outpatient records as she has an extensive history of issues in the past. For now her abdomen is soft and nondistended and she is tolerating PO. Another thought is a relative withdrawal from oxycodone, which she hasn't been getting consistently as an inpatient. Will schedule her Oxy ER now and cont with Oxy IR per home regimen. Cont supportive measures. Sucralfate was started this admission and protonix was increased to twice daily with no success in improving her symptoms. will stop sucralfate now. Cont BID PPI. 11/16-this is improved and she is consistently tolerating PO (4) COPD exacerbation: Plan: chronic, wheezing present with presence of pneumonia suggestive of an exacerbation of COPD. Recently completed an outpatient regimen of antibiotics. Cont steroids and nebulized bronchodilators PRN. (5) Paroxysmal atrial fibrillation: Plan: Continue Carvedilol-inceased by cardiology to 9.375mg PO BID (cautious increase given underlying wheezing), cont Tikosyn. Previously on Xarelto but discontinued 9 months ago due to hematuria, hematochezia Heart rate remains controlled. Cont to avoid QTc prolonging medications. (6) DM type 2 (diabetes mellitus, type 2): Plan: In setting of outpatient prednisone taper presented with hyperglycemia. Initial BSG >400, give IV insulin in ED. Consulting glycemic mgmt in setting of ongoing steroids Hemoglobin A1c is high at 8.9 Around goal on insulin, cont inpatient management of insulin per glycemic pharmacist consult (7) Oral thrush: Plan: cont nystatin swish regimen. (8) Hypothyroidism: Plan: TSH 0.221, Free T4 high at 1.96. Reduced levothyroxine dose from 150 to 125 mcg. Repeat TFTs as outpatient. (9) Chronic diastolic CHF (congestive heart failure): Plan: Appears euvolemic, Continue torsemide 10mg daily, carvedilol dosed as above. (10) CKD (chronic kidney disease), stage III: Plan: Around her baseline, cont to monitor with BMP periodically. (11) Chronic pain syndrome: Plan: Arthritis of multiple joints. Home regimen includes Oxycontin 20mg BID and IR oxycodone 10mg Q6H PRN Continue dosing per home regimen, monitor closely --Notably scheduled her Oxy ER 20mg BID which was PRN. She is dependent on this and should take it consistently. Monitor mental status and vitals with additional narcotic cough syrup. (12) ZEYAD (obstructive sleep apnea): Plan: On 3L NC continuously at home (13) Constipation due to opioid therapy: Plan: Given relistor this admission. Not on stool softeners or laxatives. Both added and she had some miralax this am. Encourage movement as needed. (14) DVT prophylaxis: Plan: DVT Ppx: SQ lovenox Code status: FULL PCP: Cortney Dispo: to [employer]. Carli Meek DO [facility] Hospitalist Admission and Anticipated Discharge Date Admission Date: November 08, 2021 Subjective 76 yo F presents admitted for covid pneumonia She reports some burning abdominal discomfort and intermittent vomiting over the last couple of days consistently she is not vomiting and is tolerating PO took miralax this am to have a BM cough improved with hycodan and treatment declined obb removal because of large prolapsed bladder and she feels she is took weak to manage this right now Review of Systems Review of Systems: All systems reviewed & are unremarkable except as noted in Subjective Physical Exam Physical Exam: CONSTITUTIONAL: obese, vitals as above, generally well- appearing, NAD EYES: normal conjunctivae, no scleral icterus ENT: external ear and nose normal, oropharynx clear NECK: trachea midline RESPIRATORY: no wheezing, rales heard throughout, no rhonchi. normal respiratory effort, no conversational dyspnea. CARDIOVASCULAR: regular rate and rhythm, S1 and 2 heard without murmurs, gallops or rubs, no JVD, no peripheral edema CHEST: inspection of chest was normal GASTROINTESTINAL: soft, generalized tenderness to palpation without guarding, nondistended, multiple areas of ecchymosis present from DVT prophylaxis MUSCULOSKELETAL: strength 5/5 throughout, head is normocephalic and atraumatic SKIN: warm and dry NEUROLOGIC: CN 2-12 grossly intact, no sensory deficit, normal cognition, normal speech, no tremor, no gross focal deficits. PSYCHIATRIC: alert cooperative and oriented to person, place and time. Results & Data Results & Data ([facility]) Vital Signs (Past 12 Hours) Vital Signs Temp Pulse Resp BP BP Pulse Ox 11/16/21 13:47 86 106/75 11/16/21 11:12 36.8 C 58 L 20 98/47 L 97 Laboratory Results Short CBC 11/16/21 Range/Units 07:56 WBC 9.06 (4.8-10.8) K/uL Hgb 8.4 L (12.0-16.0) g/dL Hct 29.3 L (37-47) % Plt Count 261 (130-400) K/uL BMP 11/16/21 07:56 Sodium 134 L Potassium 4.3 Chloride 95 L Carbon Dioxide 34 H BUN 28 H Creatinine 1.20 Glucose 127 H Calcium 8.2 L Medications Administered Current Inpatient Medications Acetaminophen (Acetaminophen 325 Mg Tab) 650 mg PO Q4H PRN PRN Reason: Pain or Fever Stop: 12/08/21 20:19 Albuterol (Albuterol Hfa 8 Gm Inhaler) 2 puffs INH Q6R PRN PRN Reason: Shortness Of Breath Stop: 12/08/21 21:14 Albuterol (Albut/Ipratrop 3mg/0.5mg Neb 3 Ml Vial) 3 ml NEB Q4R PRN; Protocol PRN Reason: Shortness Of Breath Or Wheezing Stop: 12/09/21 08:24 Last Admin: 11/15/21 21:17 Dose: 3 ml Documented by: Ascorbic Acid (Ascorbic Acid 500 Mg Tab) 250 mg PO DAILY [facility] Stop: 12/09/21 08:59 Last Admin: 11/16/21 09:04 Dose: 250 mg Documented by: Baclofen (Baclofen 10 Mg Tab) 5 mg PO BID [facility] Stop: 12/08/21 21:29 Last Admin: 11/16/21 09:09 Dose: 5 mg Documented by: Benzonatate (Benzonatate 100 Mg Capsule) 100 mg PO TID YELITZA Stop: 12/08/21 21:29 Last Admin: 11/16/21 13:48 Dose: 100 mg Documented by: Carvedilol (Carvedilol 3.125 Mg Tab) 9.375 mg PO BID [facility] Stop: 12/14/21 20:59 Last Admin: 11/16/21 08:26 Dose: 9.375 mg Documented by: Cyanocobalamin (Cyanocobalamin 500 Mcg Tablet (Vitamin B-12)) 500 mcg PO DAILY [facility] Stop: 12/09/21 08:59 Last Admin: 11/16/21 09:03 Dose: 500 mcg Documented by: Dexamethasone (Dexamethasone 4 Mg Tab) 6 mg PO DAILY [facility] Stop: 12/16/21 08:59 Last Admin: 11/16/21 09:01 Dose: 6 mg Documented by: Dextrose (Dextrose 50% 50 Ml Syringe) 25 - 50 ml IV UD PRN; Protocol PRN Reason: Hypoglycemia Protocol Stop: 12/08/21 21:44 Diclofenac Sodium (Diclofenac Sod 1% Gel 100 Gm Tube) 2 gm EXT BID [facility] Stop: 12/13/21 12:59 Last Admin: 11/16/21 09:11 Dose: 2 gm Documented by: Diltiazem HCl (Diltiazem Hcl 30 Mg Tab) 30 mg PO TID [facility] Stop: 12/15/21 13:59 Last Admin: 11/16/21 13:50 Dose: 30 mg Documented by: Docusate Sodium (Docusate Sodium 100 Mg Cap) 100 mg PO BID [facility] Stop: 12/15/21 20:59 Last Admin: 11/16/21 09:20 Dose: 100 mg Documented by: Dofetilide (Dofetilide 125 Mcg Capsule) 250 mcg PO BID [facility] Stop: 12/08/21 21:29 Last Admin: 11/16/21 09:03 Dose: 250 mcg Documented by: Enoxaparin Sodium (Enoxaparin Inj 40 Mg/0.4 Ml Syr) 40 mg SQ HS [facility] Stop: 12/08/21 21:29 Last Admin: 11/15/21 21:14 Dose: 40 mg Documented by: Estrogens Conjugated (Premarin Vag Crm 14 Appln/30 Gm Tube) 1 appln PV [id number]@2100 [facility] Stop: 12/13/21 20:59 Last Admin: 11/15/21 21:15 Dose: 1 appln Documented by: Ferrous Sulfate (Ferrous Sulfate 325 Mg Tab) 325 mg PO DAILY [facility] Stop: 12/09/21 08:59 Last Admin: 11/16/21 09:05 Dose: 325 mg Documented by: Folic Acid (Folic Acid 1 Mg Tab) 1 mg PO DAILY [facility] Stop: 12/09/21 08:59 Last Admin: 11/16/21 09:06 Dose: 1 mg Documented by: Glucagon (Glucagon For Inj 1 Mg Vial) 1 mg IM UD PRN; Protocol PRN Reason: Hypoglycemia Protocol Stop: 12/08/21 21:44 Glucose (Glucose 40% Gel 15 Gm Tube) 15 - 30 gm PO UD PRN; Protocol PRN Reason: Hypoglycemia Protocol Stop: 12/08/21 21:44 Glucose (Glucose 10 Tabs/Tube) 4 - 8 tabs PO UD PRN; Protocol PRN Reason: Hypoglycemia Protocol Stop: 12/08/21 21:44 Hydrocodone Bit/Homatropine Methylb (Hydrocodone/Homatropine Syrup 5mg/1.5mg 5ml Udp) 5 ml PO Q6H PRN PRN Reason: Cough Stop: 11/24/21 15:37 Last Admin: 11/11/21 12:44 Dose: 5 ml Documented by: Hydrocortisone (Hydrocortisone Hc 2.5% Crm 30gm Tube) 1 appln EXT BID PRN PRN Reason: hemorrhoid Stop: 12/08/21 20:19 Promethazine HCl 12.5 mg/ (Sodium Chloride) 50.5 mls @ 202 mls/hr IV Q6H PRN PRN Reason: Nausea And Vomiting Stop: 12/13/21 11:38 Last Infusion: 11/14/21 09:11 Dose: Infused Documented by: Insulin Aspart (Insulin Aspart Per Unit) 0 units SC HS [facility]; Protocol Stop: 12/13/21 20:59 Last Admin: 11/15/21 21:44 Dose: 4 units Documented by: Insulin Aspart (Insulin Aspart Per Unit) 0 units SC AC [facility]; Protocol Stop: 12/13/21 11:29 Last Admin: 11/16/21 17:19 Dose: 13 units Documented by: Insulin Human NPH (Insulin Human Nph) 10 units SC DAILY [facility] Stop: 12/16/21 08:59 Last Admin: 11/16/21 08:49 Dose: 10 units Documented by: Levalbuterol HCl (Levalbuterol Hcl 1.25 Mg/3 Ml Neb) 1.25 mg NEB Q4H PRN; Protocol PRN Reason: Shortness Of Breath Or Wheezing Stop: 12/09/21 20:29 [facility]othyroxine Sodium ([facility]othy[facility]ine Sodium 125 Mcg Tablet) [facility] Stop: 12/09/21 06:29 Last Admin: 11/16/21 05:44 Dose: 125 mcg Documented by: Magnesium Oxide (Magnesium Oxide 400 Mg Tab) 400 mg PO DAILY [facility]; Protocol Stop: 12/09/21 08:59 Last Admin: 11/16/21 08:29 Dose: 400 mg Documented by: Meclizine HCl (Meclizine Hcl 25 Mg Tab) 25 mg PO Q8H PRN PRN Reason: dizziness Stop: 12/08/21 21:14 Miscellaneous (Carbohydrates For Hypoglycemia ) 15 - 30 gm PO UD PRN PRN Reason: Hypoglycemia Treatment Stop: 12/08/21 21:44 Last Admin: 11/13/21 12:05 Dose: 30 gm Documented by: Miscellaneous Information (Pharmacy Glycemic Mgmt Consult) 1 ea N/A UD PRN PRN Reason: Consult Stop: 12/08/21 17:52 Multivitamins (Multivitamin Tab) 1 tab PO DAILY [facility] Stop: 12/09/21 08:59 Last Admin: 11/16/21 09:04 Dose: 1 tab Documented by: *Oxycodone Ir 10 Mg* Patient's Own Controlled Med 1 1 ea PO Q6H PRN PRN Reason: Pain Stop: 11/22/21 22:44 Last Admin: 11/16/21 08:25 Dose: 10 mg Documented by: *Oxycodone Ir 10 Mg* Non-Formulary Patient's Own Med 1 ea PO Q6H PRN PRN Reason: Pain Stop: 12/08/21 22:44 Last Admin: 11/13/21 18:00 Dose: 10 mg Documented by: Nystatin (Nystatin Susp 500,000 U/5 Ml Udc) 10 ml PO TID YELITZA Stop: 11/22/21 20:59 Last Admin: 11/16/21 13:50 Dose: Not Given Documented by: Oxycodone HCl (Oxycodone Hcl 20 Mg Tabcr (Oxycontin)) 20 mg PO BID [facility]ELIT[facility] Stop: 11/29/21 20:59 Last Admin: 11/16/21 10:29 Dose: 20 mg Documented by: Pantoprazole Sodium (Pantoprazole 40 Mg Tab) 40 mg PO BID [facility] Stop: 12/15/21 20:59 Last Admin: 11/16/21 08:28 Dose: 40 mg Documented by: Polyethylene Glycol (Polyethylene (Miralax) 17 Gm Pack) 17 gm PO DAILY [facility] Stop: 12/16/21 08:59 Last Admin: 11/16/21 09:08 Dose: 17 gm Documented by: Potassium Chloride (Potassium Chloride 10 Meq Tabcr) 10 meq PO QAM [facility]ELIT[facility] Stop: 12/09/21 08:59 Last Admin: 11/16/21 08:30 Dose: 10 meq Documented by: Spironolactone (Spironolactone 12.5 Mg Tab) 12.5 mg PO [id number]@2100 [facility] Stop: 12/13/21 20:59 Last Admin: 11/15/21 21:14 Dose: 12.5 mg Documented by: Torsemide (Torsemide 10 Mg Tab) 10 mg PO QAM [facility]EL[facility] Stop: 12/09/21 08:59 Last Admin: 11/16/21 08:30 Dose: 10 mg Documented by: Vitamin D (Cholecalciferol 1,000 Units 25 Mcg Tab) 1,000 units PO DAILY [facility] Stop: 12/09/21 08:59 Last Admin: 11/16/21 09:06 Dose: 1,000 units Documented by:
[2021-11-16] MEDS: ENOXAPARIN INJ 40 MG/0.4 ML SYR SQ SCH (20:52)
[2021-11-16] MEDS: HYDROcodone/HOMATROPINE SYRUP 5MG/1.5MG 5ML UDP PO PRN (21:16)
[2021-11-17] MEDS: LEVOTHYROXINE SODIUM 125 MCG TABLET PO SCH (05:58)
[2021-11-17] MEDS: FERROUS SULFATE 325 MG TAB PO SCH (08:13)
[2021-11-17] MEDS: dexAMETHasone 4 MG TAB PO SCH (08:13)
[2021-11-17] MEDS: BENZONATATE 100 MG CAPSULE PO SCH ×3 (08:14→20:37)
[2021-11-17] MEDS: MULTIVITAMIN TAB PO SCH (08:14)
[2021-11-17] MEDS: ASCORBIC ACID 500 MG TAB PO SCH (08:14)
[2021-11-17] MEDS: CYANOCOBALAMIN (B-12) 500 MCG TABLET PO SCH (08:15)
[2021-11-17] MEDS: NYSTATIN SUSP 500,000 U/5 ML UDC PO SCH ×3 (08:15→20:37)
[2021-11-17] MEDS: POTASSIUM CHLORIDE 10 MEQ TABCR PO SCH (08:15)
[2021-11-17] MEDS: CHOLECALCIFEROL 1,000 UNITS 25 MCG TAB PO SCH (08:15)
[2021-11-17] MEDS: FOLIC ACID 1 MG TAB PO SCH (08:15)
[2021-11-17] MEDS: TORSEMIDE 10 MG TAB PO SCH (08:15)
[2021-11-17] MEDS: dilTIAZem HCL 30 MG TAB PO SCH ×3 (08:16→20:37)
[2021-11-17] MEDS: DOFETILIDE 125 MCG CAPSULE PO SCH ×2 (08:17→20:35)
[2021-11-17] MEDS: DOCUSATE SODIUM 100 MG CAP PO SCH ×2 (08:17→20:44)
[2021-11-17] MEDS: BACLOFEN 10 MG TAB PO SCH ×2 (08:17→20:36)
[2021-11-17] MEDS: PANTOprazole 40 MG TAB PO SCH ×2 (08:17→20:36)
[2021-11-17] MEDS: MAGNESIUM OXIDE 400 MG TAB PO SCH (08:18)
[2021-11-17] MEDS: carvediloL 3.125 MG TAB PO SCH ×2 (08:19→20:35)
[2021-11-17] MEDS: DICLOFENAC SOD 1% GEL 100 GM TUBE EXT SCH ×2 (08:19→20:37)
[2021-11-17] MEDS: POLYETHYLENE (MIRALAX) 17 GM PACK PO SCH (08:19)
[2021-11-17] MEDS: oxyCODONE HCL 20 MG TABCR (OxyCONTIN) PO SCH ×2 (08:31→20:34)
[2021-11-17] MEDS: INSULIN HUMAN NPH SC SCH (10:31)
[2021-11-17] MEDS: INSULIN ASPART PER UNIT SC SCH ×4 (10:31→20:14)
[2021-11-17] MEDS: OXYCODONE 10 MG PO PRN (15:38)
[2021-11-17] MEDS: OXYCODONE IR 10 MG PO PRN (15:39)
--- NOTE | 2021-11-17 18:02 | Hospitalist Progress Note ---
Date of Service November 17, 2021 Assessment & Plan (1) Acute on chronic respiratory failure with hypoxia: Plan: This is a 76yo F with PMH of COPD and chronic hypoxemic respiratory failure on 3L NC O2, chronic diastolic CHF, DM II, HTN, HLD, ZEYAD, paroxysmal A Fib anti coagulated on Xarelto, anemia of chronic disease, chronic cor pulmonale, morbid obesity, CKD stage III, chronic pain syndrome on narcotics and other medical problems listed below who presents with worsening SOB and cough in setting of known covid. Home covid test was positive. Presented with increased oxygen needs from baseline, and worsening SOB and productive cough Follows with [facility] pulm and was prescribed prednisone taper (down to 10mg daily) and Cefdinir course (completed) CXR with extensive patchy interstitial and alveolar opacities bilaterally characteristic of a viral type pneumonitis and probable Covid 19 pneumonia Initially required 8L Oxymask IV dexamethasone 6mg daily, out of window for remdesivir, continues dexamethasone Continue scheduled duonebs, flutter valve, incentive spirometry, Tessalon Perles, home inhalers as needed Intermittent Lasix was given. Cont Hycodan to suppress cough which is working for her. Improved with oxygen supplementation back to her baseline. We will get PT and OT evaluation-has not been done yet Oxygenating at her baseline oxygen needs. (2) Pneumonia due to COVID-19 virus: Plan: Management as above (3) Abdominal discomfort: Plan: Patient reported diarrhea followed by constipation; loose stool suspected 2/2 covid infection. She has had constipation unresolved with Relistor; start Colace and Miralax now. Also patient is coughing and notes some TTP from coughing; helped with Hycodan cough syrup. Patient reports vomiting overnight. Will review GI history in outpatient records as she has an extensive history of issues in the past. Abdomen remains soft, nontender and nondistended and she is tolerating PO. Cont home oxycodone and regular bowel regimen. Sulcralfate was stopped. (4) COPD exacerbation: Plan: chronic, wheezing present with presence of pneumonia suggestive of an exacerbation of COPD. Recently completed an outpatient regimen of antibiotics. Cont steroids and nebulized bronchodilators PRN. (5) Paroxysmal atrial fibrillation: Plan: Continue Carvedilol-inceased by cardiology to 9.375mg PO BID (cautious increase given underlying wheezing), cont Tikosyn. Previously on Xarelto but discontinued 9 months ago due to hematuria, hematochezia Heart rate remains controlled. Cont to avoid QTc prolonging medications. (6) DM type 2 (diabetes mellitus, type 2): Plan: In setting of outpatient prednisone taper presented with hyperglycemia. Initial BSG >400, give IV insulin in ED. Consulting glycemic mgmt in setting of ongoing steroids Hemoglobin A1c is high at 8.9 Around goal on insulin, cont inpatient management of insulin per glycemic pharmacist consult (7) Oral thrush: Plan: cont nystatin swish regimen. (8) Hypothyroidism: Plan: TSH 0.221, Free T4 high at 1.96. Reduced levothyroxine dose from 150 to 125 mcg. Repeat TFTs as outpatient. (9) Chronic diastolic CHF (congestive heart failure): Plan: Appears euvolemic, Continue torsemide 10mg daily, carvedilol dosed as above. (10) CKD (chronic kidney disease), stage III: Plan: Around her baseline, cont to monitor with BMP periodically. (11) Chronic pain syndrome: Plan: Arthritis of multiple joints. Home regimen includes Oxycontin 20mg BID and IR oxycodone 10mg Q6H PRN Continue dosing per home regimen, monitor closely --Notably scheduled her Oxy ER 20mg BID which was PRN. She is dependent on this and should take it consistently. Monitor mental status and vitals with additional narcotic cough syrup. (12) ZEYAD (obstructive sleep apnea): Plan: On 3L NC continuously at home (13) Constipation due to opioid therapy: Plan: Given relistor this admission. Not on stool softeners or laxatives. Both added and she had some miralax this am. Encourage movement as needed. (14) DVT prophylaxis: Plan: DVT Ppx: SQ lovenox Code status: FULL PCP: [facility] Dispo: med surg, stable for discharge. Awaiting SNF placement. [facility] and Anticipated Discharge Date Admission Date: November 08, 2021 Subjective 76 yo F presents admitted for covid pneumonia Min abdominal discomfort reported today and not vomiting, tolerating PO Denies chest pain, SOB Improved overall. Review of Systems Review of Systems: All systems reviewed & are unremarkable except as noted in Subjective Physical Exam Physical Exam: CONSTITUTIONAL: obese, vitals as above, generally well- appearing, NAD EYES: normal conjunctivae, no scleral icterus ENT: external ear and nose normal, oropharynx clear NECK: trachea midline RESPIRATORY: no wheezing, rales heard at bases, no rhonchi. normal respiratory effort, no conversational dyspnea. CARDIOVASCULAR: regular rate and rhythm, S1 and 2 heard without murmurs, gallops or rubs, no JVD, no peripheral edema CHEST: inspection of chest was normal GASTROINTESTINAL: soft, generalized tenderness to palpation without guarding, nondistended, multiple areas of ecchymosis present from DVT prophylaxis MUSCULOSKELETAL: strength 5/5 throughout, head is normocephalic and atraumatic SKIN: warm and dry NEUROLOGIC: CN 2-12 grossly intact, no sensory deficit, normal cognition, normal speech, no tremor, no gross focal deficits. PSYCHIATRIC: alert cooperative and oriented to person, place and time. Results & Data Results & Data ([facility]) Vital Signs (Past 12 Hours) Vital Signs Temp Pulse Pulse Resp BP BP Pulse Ox 11/17/21 15:13 67 11/17/21 15:06 36.8 C 62 19 114/56 L 98 11/17/21 13:41 56 L 11/17/21 11:10 36.8 C 87 22 96/53 L 97 11/17/21 08:38 74 11/17/21 07:48 36.8 C 73 22 131/62 98 Medications Administered Current Inpatient Medications Acetaminophen (Acetaminophen 325 Mg Tab) 650 mg PO Q4H PRN PRN Reason: Pain or Fever Stop: 12/08/21 20:19 Albuterol (Albuterol Hfa 8 Gm Inhaler) 2 puffs INH Q6R PRN PRN Reason: Shortness Of Breath Stop: 12/08/21 21:14 Albuterol (Albut/Ipratrop 3mg/0.5mg Neb 3 Ml Vial) 3 ml NEB Q4R PRN; Protocol PRN Reason: Shortness Of Breath Or Wheezing Stop: 12/09/21 08:24 Last Admin: 11/15/21 21:17 Dose: 3 ml Documented by: Ascorbic Acid (Ascorbic Acid 500 Mg Tab) 250 mg PO DAILY [facility] Stop: 12/09/21 08:59 Last Admin: 11/17/21 08:14 Dose: 250 mg Documented by: Baclofen (Baclofen 10 Mg Tab) 5 mg PO BID [facility] Stop: 12/08/21 21:29 Last Admin: 11/17/21 08:17 Dose: 5 mg Documented by: Benzonatate (Benzonatate 100 Mg Capsule) 100 mg PO TID [facility] Stop: 12/08/21 21:29 Last Admin: 11/17/21 14:00 Dose: 100 mg Documented by: Carvedilol (Carvedilol 3.125 Mg Tab) 9.375 mg PO BID [facility] Stop: 12/14/21 20:59 Last Admin: 11/17/21 08:19 Dose: 9.375 mg Documented by: Cyanocobalamin (Cyanocobalamin 500 Mcg Tablet (Vitamin B-12)) 500 mcg PO DAILY [facility] Stop: 12/09/21 08:59 Last Admin: 11/17/21 08:15 Dose: 500 mcg Documented by: Dexamethasone (Dexamethasone 4 Mg Tab) 6 mg PO DAILY [facility] Stop: 12/16/21 08:59 Last Admin: 11/17/21 08:13 Dose: 6 mg Documented by: Dextrose (Dextrose 50% 50 Ml Syringe) 25 - 50 ml IV UD PRN; Protocol PRN Reason: Hypoglycemia Protocol Stop: 12/08/21 21:44 Diclofenac Sodium (Diclofenac Sod 1% Gel 100 Gm Tube) 2 gm EXT BID [facility] Stop: 12/13/21 12:59 Last Admin: 11/17/21 08:19 Dose: 2 gm Documented by: Diltiazem HCl (Diltiazem Hcl 30 Mg Tab) 30 mg PO TID [facility] Stop: 12/15/21 13:59 Last Admin: 11/17/21 14:00 Dose: 30 mg Documented by: Docusate Sodium (Docusate Sodium 100 Mg Cap) 100 mg PO BID [facility] Stop: 12/15/21 20:59 Last Admin: 11/17/21 08:17 Dose: 100 mg Documented by: Dofetilide (Dofetilide 125 Mcg Capsule) 250 mcg PO BID [facility] Stop: 12/08/21 21:29 Last Admin: 11/17/21 08:17 Dose: 250 mcg Documented by: Enoxaparin Sodium (Enoxaparin Inj 40 Mg/0.4 Ml Syr) 40 mg SQ HS [facility] Stop: 12/08/21 21:29 Last Admin: 11/16/21 20:52 Dose: 40 mg Documented by: Estrogens Conjugated (Premarin Vag Crm 14 Appln/30 Gm Tube) 1 appln PV MoWeFr@2100 [facility] Stop: 12/13/21 20:59 Last Admin: 11/15/21 21:15 Dose: 1 appln Documented by: Ferrous Sulfate (Ferrous Sulfate 325 Mg Tab) 325 mg PO DAILY [facility] Stop: 12/09/21 08:59 Last Admin: 11/17/21 08:13 Dose: 325 mg Documented by: Folic Acid (Folic Acid 1 Mg Tab) 1 mg PO DAILY [facility] Stop: 12/09/21 08:59 Last Admin: 11/17/21 08:15 Dose: 1 mg Documented by: Glucagon (Glucagon For Inj 1 Mg Vial) 1 mg IM UD PRN; Protocol PRN Reason: Hypoglycemia Protocol Stop: 12/08/21 21:44 Glucose (Glucose 40% Gel 15 Gm Tube) 15 - 30 gm PO UD PRN; Protocol PRN Reason: Hypoglycemia Protocol Stop: 12/08/21 21:44 Glucose (Glucose 10 Tabs/Tube) 4 - 8 tabs PO UD PRN; Protocol PRN Reason: Hypoglycemia Protocol Stop: 12/08/21 21:44 Hydrocodone Bit/Homatropine Methylb (Hydrocodone/Homatropine Syrup 5mg/1.5mg 5ml Udp) 5 ml PO Q6H PRN PRN Reason: Cough Stop: 11/24/21 15:37 Last Admin: 11/16/21 21:16 Dose: 5 ml Documented by: Hydrocortisone (Hydrocortisone Hc 2.5% Crm 30gm Tube) 1 appln EXT BID PRN PRN Reason: hemorrhoid Stop: 12/08/21 20:19 Promethazine HCl 12.5 mg/ (Sodium Chloride) 50.5 mls @ 202 mls/hr IV Q6H PRN PRN Reason: Nausea And Vomiting Stop: 12/13/21 11:38 Last Infusion: 11/14/21 09:11 Dose: Infused Documented by: Insulin Aspart (Insulin Aspart Per Unit) 0 units SC HS [facility]; Protocol Stop: 12/13/21 20:59 Last Admin: 11/16/21 21:04 Dose: 2 units Documented by: Insulin Aspart (Insulin Aspart Per Unit) 0 units SC AC [facility]; Protocol Stop: 12/13/21 11:29 Last Admin: 11/17/21 12:49 Dose: Not Given Documented by: Insulin Human NPH (Insulin Human Nph) 10 units SC DAILY [facility] Stop: 12/16/21 08:59 Last Admin: 11/17/21 10:31 Dose: 10 units Documented by: Levalbuterol HCl (Levalbuterol Hcl 1.25 Mg/3 Ml Neb) 1.25 mg NEB Q4H PRN; Protocol PRN Reason: Shortness Of Breath Or Wheezing Stop: 12/09/21 20:29 Levothyroxine Sodium ([facility] 125 Mcg [facility]t) [facility]: 12/09/21 06:29 Last Admin: 11/17/21 05:58 Dose: 125 mcg Documented by: Magnesium Oxide (Magnesium Oxide 400 Mg Tab) 400 mg PO DAILY [facility]; Protocol Stop: 12/09/21 08:59 Last Admin: 11/17/21 08:18 Dose: 400 mg Documented by: Meclizine HCl (Meclizine Hcl 25 Mg Tab) 25 mg PO Q8H PRN PRN Reason: dizziness Stop: 12/08/21 21:14 Miscellaneous (Carbohydrates For Hypoglycemia ) 15 - 30 gm PO UD PRN PRN Reason: Hypoglycemia Treatment Stop: 12/08/21 21:44 Last Admin: 11/13/21 12:05 Dose: 30 gm Documented by: Miscellaneous Information (Pharmacy Glycemic Mgmt Consult) 1 ea N/A UD PRN PRN Reason: Consult Stop: 12/08/21 17:52 Multivitamins (Multivitamin Tab) 1 tab PO DAILY [facility] Stop: 12/09/21 08:59 Last Admin: 11/17/21 08:14 Dose: 1 tab Documented by: *Oxycodone Ir 10 Mg* Patient's Own Controlled Med 1 1 ea PO Q6H PRN PRN Reason: Pain Stop: 11/22/21 22:44 Last Admin: 11/17/21 15:38 Dose: 1 dose Documented by: *Oxycodone Ir 10 Mg* Non-Formulary Patient's Own Med 1 ea PO Q6H PRN PRN Reason: Pain Stop: 12/08/21 22:44 Last Admin: 11/17/21 15:39 Dose: 10 mg Documented by: Nystatin (Nystatin Susp 500,000 U/5 Ml Udc) 10 ml PO TID [facility] Stop: 11/22/21 20:59 Last Admin: 11/17/21 14:00 Dose: 10 ml Documented by: Oxycodone HCl (Oxycodone Hcl 20 Mg Tabcr (Oxycontin)) 20 mg PO BID [facility] Stop: 11/29/21 20:59 Last Admin: 11/17/21 08:31 Dose: 20 mg Documented by: Pantoprazole Sodium (Pantoprazole 40 Mg Tab) 40 mg PO BID [facility] Stop: 12/15/21 20:59 Last Admin: 11/17/21 08:17 Dose: 40 mg Documented by: Polyethylene Glycol (Polyethylene (Miralax) 17 Gm Pack) 17 gm PO DAILY [facility] Stop: 12/16/21 08:59 Last Admin: 11/17/21 08:19 Dose: 17 gm Documented by: Potassium Chloride (Potassium Chloride 10 Meq Tabcr) 10 meq PO QAM [facility] Stop: 12/09/21 08:59 Last Admin: 11/17/21 08:15 Dose: 10 meq Documented by: Spironolactone (Spironolactone 12.5 Mg Tab) 12.5 mg PO MoWeFr@2100 [facility] Stop: 12/13/21 20:59 Last Admin: 11/15/21 21:14 Dose: 12.5 mg Documented by: Torsemide (Torsemide 10 Mg Tab) 10 mg PO QAM [facility] Stop: 12/09/21 08:59 Last Admin: 11/17/21 08:15 Dose: 10 mg Documented by: Trolamine Salicylate (Trolamine Salicylate 10% Crm 255 Appln/85 Gm Tube) 1 appln EXT BID [facility] Stop: 12/17/21 20:59 Vitamin D (Cholecalciferol 1,000 Units 25 Mcg Tab) 1,000 units PO DAILY [facility] Stop: 12/09/21 08:59 Last Admin: 11/17/21 08:15 Dose: 1,000 units Documented by:
[2021-11-17] MEDS: SPIRONOLACTONE 12.5 MG TAB PO SCH (20:35)
[2021-11-17] MEDS: PREMARIN VAG CRM 14 APPLN/30 GM TUBE PV SCH (20:39)
[2021-11-17] MEDS: TROLAMINE SALICYLATE 10% CRM 255 APPLN/85 GM TUBE EXT SCH (20:39)
[2021-11-17] MEDS: ENOXAPARIN INJ 40 MG/0.4 ML SYR SQ SCH (22:01)
[2021-11-18] MEDS: LEVOTHYROXINE SODIUM 125 MCG TABLET PO SCH (05:39)
[2021-11-18] MEDS: INSULIN HUMAN NPH SC SCH (08:36)
[2021-11-18] MEDS: INSULIN ASPART PER UNIT SC SCH ×4 (08:36→20:30)
[2021-11-18] MEDS: dilTIAZem HCL 30 MG TAB PO SCH ×3 (09:16→20:45)
[2021-11-18] MEDS: TORSEMIDE 10 MG TAB PO SCH (09:16)
[2021-11-18] MEDS: BACLOFEN 10 MG TAB PO SCH ×2 (09:17→20:42)
[2021-11-18] MEDS: ASCORBIC ACID 500 MG TAB PO SCH (09:17)
[2021-11-18] MEDS: BENZONATATE 100 MG CAPSULE PO SCH ×3 (09:17→20:41)
[2021-11-18] MEDS: DOCUSATE SODIUM 100 MG CAP PO SCH ×2 (09:18→20:45)
[2021-11-18] MEDS: NYSTATIN SUSP 500,000 U/5 ML UDC PO SCH ×3 (09:18→20:46)
[2021-11-18] MEDS: POLYETHYLENE (MIRALAX) 17 GM PACK PO SCH (09:18)
[2021-11-18] MEDS: CYANOCOBALAMIN (B-12) 500 MCG TABLET PO SCH (09:20)
[2021-11-18] MEDS: MAGNESIUM OXIDE 400 MG TAB PO SCH (09:20)
[2021-11-18] MEDS: DOFETILIDE 125 MCG CAPSULE PO SCH ×2 (09:20→20:41)
[2021-11-18] MEDS: FOLIC ACID 1 MG TAB PO SCH (09:20)
[2021-11-18] MEDS: carvediloL 3.125 MG TAB PO SCH ×2 (09:20→20:46)
[2021-11-18] MEDS: dexAMETHasone 4 MG TAB PO SCH (09:20)
[2021-11-18] MEDS: FERROUS SULFATE 325 MG TAB PO SCH (09:21)
[2021-11-18] MEDS: DICLOFENAC SOD 1% GEL 100 GM TUBE EXT SCH ×2 (09:21→20:38)
[2021-11-18] MEDS: PANTOprazole 40 MG TAB PO SCH ×2 (09:21→20:41)
[2021-11-18] MEDS: CHOLECALCIFEROL 1,000 UNITS 25 MCG TAB PO SCH (09:21)
[2021-11-18] MEDS: MULTIVITAMIN TAB PO SCH (09:21)
[2021-11-18] MEDS: POTASSIUM CHLORIDE 10 MEQ TABCR PO SCH (09:28)
[2021-11-18] MEDS: TROLAMINE SALICYLATE 10% CRM 255 APPLN/85 GM TUBE EXT SCH ×2 (09:28→20:38)
[2021-11-18] MEDS: oxyCODONE HCL 20 MG TABCR (OxyCONTIN) PO SCH ×2 (11:15→20:39)
[2021-11-18] MEDS: CARBOHYDRATES FOR HYPOGLYCEMIA PO PRN (15:49)
--- NOTE | 2021-11-18 15:58 | Hospitalist Progress Note ---
Date of Service November 18, 2021 Assessment & Plan (1) Acute on chronic respiratory failure with hypoxia: Plan: This is a 76yo F with PMH of COPD and chronic hypoxemic respiratory failure on 3L NC O2, chronic diastolic CHF, DM II, HTN, HLD, ZEYAD, paroxysmal A Fib anti coagulated on Xarelto, anemia of chronic disease, chronic cor pulmonale, morbid obesity, CKD stage III, chronic pain syndrome on narcotics and other medical problems listed below who presents with worsening SOB and cough in setting of known covid. Home covid test was positive. Presented with increased oxygen needs from baseline, and worsening SOB and productive cough [facility] and was prescribed prednisone taper (down to 10mg daily) and Cefdinir course (completed) CXR with extensive patchy interstitial and alveolar opacities bilaterally characteristic of a viral type pneumonitis and probable Covid 19 pneumonia Initially required 8L Oxymask IV dexamethasone 6mg daily, out of window for remdesivir duonebs, flutter valve, incentive spirometry, Tessalon Perles, home inhalers as needed Intermittent Lasix was given. Cont Hycodan to suppress cough which is working for he-cough is improved/minimal. oxygen supplementation needs are back to her baseline. She has been stable and requiring 4 L/min via nasal cannula to maintain saturation (2) Pneumonia due to COVID-19 virus: Plan: Management as above (3) Abdominal discomfort: Plan: Patient reported diarrhea followed by constipation; loose stool suspected 2/2 covid infection. She has had constipation unresolved with Relistor; start Colace and Miralax now. Also patient is coughing and notes some TTP from coughing; helped with Hycodan cough syrup. Patient reports vomiting overnight. Will review GI history in outpatient records as she has an extensive history of issues in the past. For now her abdomen is soft and nondistended and she is tolerating PO. Another thought is a relative withdrawal from oxycodone, which she hasn't been getting consistently as an inpatient. Will schedule her Oxy ER now and cont with Oxy IR per home regimen. Cont supportive measures. Sucralfate was started this admission and protonix was increased to twice daily with no success in improving her symptoms. will stop sucralfate now. Cont BID PPI. 11/16-this is improved and she is consistently tolerating PO (4) COPD exacerbation: Plan: chronic, wheezing present with presence of pneumonia suggestive of an exacerbation of COPD. Recently completed an outpatient regimen of antibiotics. Cont steroids and nebulized bronchodilators PRN. (5) Paroxysmal atrial fibrillation: Plan: Continue Carvedilol-inceased by cardiology to 9.375mg PO BID (cautious increase given underlying wheezing), cont Tikosyn. Previously on Xarelto but discontinued 9 months ago due to hematuria, hematochezia Heart rate remains controlled. Cont to avoid QTc prolonging medications. (6) DM type 2 (diabetes mellitus, type 2): Plan: In setting of outpatient prednisone taper presented with hyperglycemia. Initial BSG >400, give IV insulin in ED. Consulting glycemic mgmt in setting of ongoing steroids Hemoglobin A1c is high at 8.9 Around goal on insulin, cont inpatient management of insulin per glycemic pharmacist consult (7) Oral thrush: Plan: cont nystatin swish regimen. (8) Hypothyroidism: Plan: TSH 0.221, Free T4 high at 1.96. Reduced levothyroxine dose from 150 to 125 mcg. Repeat TFTs as outpatient. (9) Chronic diastolic CHF (congestive heart failure): Plan: Appears euvolemic, Continue torsemide 10mg daily, carvedilol dosed as above. (10) CKD (chronic kidney disease), stage III: Plan: Around her baseline, cont to monitor with BMP periodically. (11) Chronic pain syndrome: Plan: Arthritis of multiple joints. Home regimen includes Oxycontin 20mg BID and IR oxycodone 10mg Q6H PRN Continue dosing per home regimen, monitor closely --Notably scheduled her Oxy ER 20mg BID which was PRN. She is dependent on this and should take it consistently. Monitor mental status and vitals with additional narcotic cough syrup. (12) ZEYAD (obstructive sleep apnea): Plan: On 3L NC continuously at home (13) Constipation due to opioid therapy: Plan: Given relistor this admission. Not on stool softeners or laxatives. Both added and she had some miralax this am. Encourage physical movement as tolerated. She is having BM now (14) Noncompliance: Plan: Patient has declined several treatments and recommendations including Nystatin for thrush on occasion, declined bob removal despite education that this will increase her likelihood of obtaining a hospital-acquired infection and will not fix her bladder prolapse. She is declining rehab and now is declining discharge. (15) DVT prophylaxis: Plan: DVT Ppx: SQ lovenox Code status: FULL PCP: Cortney Dispo: patient has been stable for the last couple of days. Initially SNF recommended, however, patient is refusing rehab. She is amenable to home health, but states she will need to stay in the hospital until next before she can go home so that her weakness will be better. Will work with case management and PT/OT to reassess her abilities as she is able to sit up on the bedside independently and no longer needs the hospital. Carli Meek DO [facility] and Anticipated Discharge Date Admission Date: November 08, 2021 Subjective 76 yo F presents admitted for covid pneumonia doing well overall cough is minimal denies SOB and has been breathing at her baseline oxygen needs for a few days now denies n/v or abdominal pain denies chest pain asks for muscle cream that she can rub onto her achy areas Review of Systems Review of Systems: All systems reviewed & are unremarkable except as noted in Subjective Physical Exam Physical Exam: CONSTITUTIONAL: obese, vitals as above, generally well-appearing, NAD EYES: normal conjunctivae, no scleral icterus ENT: external ear and nose normal, oropharynx clear NECK: trachea midline RESPIRATORY: no wheezing, rales heard throughout, no rhonchi. normal respiratory effort, no conversational dyspnea. CARDIOVASCULAR: regular rate and rhythm, S1 and 2 heard without murmurs, gallops or rubs, no JVD, no peripheral edema CHEST: inspection of chest was normal GASTROINTESTINAL: soft, generalized tenderness to palpation without guarding, nondistended, multiple areas of ecchymosis present from DVT prophylaxis MUSCULOSKELETAL: strength 5/5 throughout, head is normocephalic and atraumatic SKIN: warm and dry NEUROLOGIC: CN 2-12 grossly intact, no sensory deficit, normal cognition, normal speech, no tremor, no gross focal deficits. PSYCHIATRIC: alert cooperative and oriented to person, place and time. Results & Data Results & Data ([facility]) Vital Signs (Past 12 Hours) Vital Signs Temp Pulse Resp BP Pulse Ox 11/18/21 15:31 36.3 C L 51 L 24 133/63 92 11/18/21 07:04 36.6 C 67 18 120/61 96 Medications Administered Current Inpatient Medications Acetaminophen (Acetaminophen 325 Mg Tab) 650 mg PO Q4H PRN PRN Reason: Pain or Fever Stop: 12/08/21 20:19 Albuterol (Albuterol Hfa 8 Gm Inhaler) 2 puffs INH Q6R PRN PRN Reason: Shortness Of Breath Stop: 12/08/21 21:14 Albuterol (Albut/Ipratrop 3mg/0.5mg Neb 3 Ml Vial) 3 ml NEB Q4R PRN; Protocol PRN Reason: Shortness Of Breath Or Wheezing Stop: 12/09/21 08:24 Last Admin: 11/15/21 21:17 Dose: 3 ml Documented by: Ascorbic Acid (Ascorbic Acid 500 Mg Tab) 250 mg PO DAILY [facility] Stop: 12/09/21 08:59 Last Admin: 11/18/21 09:17 Dose: 250 mg Documented by: Baclofen (Baclofen 10 Mg Tab) 5 mg PO BID [facility] Stop: 12/08/21 21:29 Last Admin: 11/18/21 09:17 Dose: 5 mg Documented by: Benzonatate (Benzonatate 100 Mg Capsule) 100 mg PO TID [facility] Stop: 12/08/21 21:29 Last Admin: 11/18/21 12:57 Dose: 100 mg Documented by: Carvedilol (Carvedilol 3.125 Mg Tab) 9.375 mg PO BID [facility] Stop: 12/14/21 20:59 Last Admin: 11/18/21 09:20 Dose: 9.375 mg Documented by: Cyanocobalamin (Cyanocobalamin 500 Mcg Tablet (Vitamin B-12)) 500 mcg PO DAILY [facility] Stop: 12/09/21 08:59 Last Admin: 11/18/21 09:20 Dose: 500 mcg Documented by: Dexamethasone (Dexamethasone 4 Mg Tab) 6 mg PO DAILY [facility] Stop: 12/16/21 08:59 Last Admin: 11/18/21 09:20 Dose: 6 mg Documented by: Dextrose (Dextrose 50% 50 Ml Syringe) 25 - 50 ml IV UD PRN; Protocol PRN Reason: Hypoglycemia Protocol Stop: 12/08/21 21:44 Diclofenac Sodium (Diclofenac Sod 1% Gel 100 Gm Tube) 2 gm EXT BID [facility]EL[facility] Stop: 12/13/21 12:59 Last Admin: 11/18/21 09:21 Dose: 2 gm Documented by: Diltiazem HCl (Diltiazem Hcl 30 Mg Tab) 30 mg PO TID [facility] Stop: 12/15/21 13:59 Last Admin: 11/18/21 12:57 Dose: 30 mg Documented by: Docusate Sodium (Docusate Sodium 100 Mg Cap) 100 mg PO BID [facility] Stop: 12/15/21 20:59 Last Admin: 11/18/21 09:18 Dose: 100 mg Documented by: Dofetilide (Dofetilide 125 Mcg Capsule) 250 mcg PO BID [facility] Stop: 12/08/21 21:29 Last Admin: 11/18/21 09:20 Dose: 250 mcg Documented by: Enoxaparin Sodium (Enoxaparin Inj 40 Mg/0.4 Ml Syr) 40 mg SQ HS [facility] Stop: 12/08/21 21:29 Last Admin: 11/17/21 22:01 Dose: 40 mg Documented by: Estrogens Conjugated (Premarin Vag Crm 14 Appln/30 Gm Tube) 1 appln PV MoWeFr@2100 [facility] Stop: 12/13/21 20:59 Last Admin: 11/17/21 20:39 Dose: 1 appln Documented by: Ferrous Sulfate (Ferrous Sulfate 325 Mg Tab) 325 mg PO DAILY [facility] Stop: 12/09/21 08:59 Last Admin: 11/18/21 09:21 Dose: 325 mg Documented by: Folic Acid (Folic Acid 1 Mg Tab) 1 mg PO DAILY [facility] Stop: 12/09/21 08:59 Last Admin: 11/18/21 09:20 Dose: 1 mg Documented by: Glucagon (Glucagon For Inj 1 Mg Vial) 1 mg IM UD PRN; Protocol PRN Reason: Hypoglycemia Protocol Stop: 12/08/21 21:44 Glucose (Glucose 40% Gel 15 Gm Tube) 15 - 30 gm PO UD PRN; Protocol PRN Reason: Hypoglycemia Protocol Stop: 12/08/21 21:44 Glucose (Glucose 10 Tabs/Tube) 4 - 8 tabs PO UD PRN; Protocol PRN Reason: Hypoglycemia Protocol Stop: 12/08/21 21:44 Hydrocodone Bit/Homatropine Methylb (Hydrocodone/Homatropine Syrup 5mg/1.5mg 5ml Udp) 5 ml PO Q6H PRN PRN Reason: Cough Stop: 11/24/21 15:37 Last Admin: 11/16/21 21:16 Dose: 5 ml Documented by: Hydrocortisone (Hydrocortisone Hc 2.5% Crm 30gm Tube) 1 appln EXT BID PRN PRN Reason: hemorrhoid Stop: 12/08/21 20:19 Promethazine HCl 12.5 mg/ (Sodium Chloride) 50.5 mls @ 202 mls/hr IV Q6H PRN PRN Reason: Nausea And Vomiting Stop: 12/13/21 11:38 Last Infusion: 11/14/21 09:11 Dose: Infused Documented by: Insulin Aspart (Insulin Aspart Per Unit) 0 units SC HS [facility]; Protocol Stop: 12/13/21 20:59 Last Admin: 11/17/21 20:14 Dose: 8 units Documented by: Insulin Aspart (Insulin Aspart Per Unit) 0 units SC AC [facility]; Protocol Stop: 12/13/21 11:29 Last Admin: 11/18/21 12:49 Dose: 8 units Documented by: Insulin Human NPH (Insulin Human Nph) 10 units SC DAILY [facility] Stop: 12/16/21 08:59 Last Admin: 11/18/21 08:36 Dose: 10 units Documented by: Levalbuterol HCl (Levalbuterol Hcl 1.25 Mg/3 Ml Neb) 1.25 mg NEB Q4H PRN; Protocol PRN Reason: Shortness Of Breath Or Wheezing Stop: 12/09/21 20:29 Levothyroxine Sodium ([facility]othyroxine Sodium 125 Mcg Tablet) [facility] Stop: 12/09/21 06:29 Last Admin: 11/18/21 05:39 Dose: 125 mcg Documented by: Magnesium Oxide (Magnesium Oxide 400 Mg Tab) 400 mg PO DAILY [facility]; Protocol Stop: 12/09/21 08:59 Last Admin: 11/18/21 09:20 Dose: 400 mg Documented by: Meclizine HCl (Meclizine Hcl 25 Mg Tab) 25 mg PO Q8H PRN PRN Reason: dizziness Stop: 12/08/21 21:14 Last Admin: 11/18/21 09:16 Dose: 25 mg Documented by: Miscellaneous (Carbohydrates For Hypoglycemia ) 15 - 30 gm PO UD PRN PRN Reason: Hypoglycemia Treatment Stop: 12/08/21 21:44 Last Admin: 11/18/21 15:49 Dose: 15 gm Documented by: Miscellaneous Information (Pharmacy Glycemic Mgmt Consult) 1 ea N/A UD PRN PRN Reason: Consult Stop: 12/08/21 17:52 Multivitamins (Multivitamin Tab) 1 tab PO DAILY [facility] Stop: 12/09/21 08:59 Last Admin: 11/18/21 09:21 Dose: 1 tab Documented by: *Oxycodone Ir 10 Mg* Patient's Own Controlled Med 1 1 ea PO Q6H PRN PRN Reason: Pain Stop: 11/22/21 22:44 Last Admin: 11/17/21 15:38 Dose: 1 dose Documented by: *Oxycodone Ir 10 Mg* Non-Formulary Patient's Own Med 1 ea PO Q6H PRN PRN Reason: Pain Stop: 12/08/21 22:44 Last Admin: 11/17/21 15:39 Dose: 10 mg Documented by: Nystatin (Nystatin Susp 500,000 U/5 Ml Udc) 10 ml PO TID [facility] Stop: 11/22/21 20:59 Last Admin: 11/18/21 12:57 Dose: 10 ml Documented by: Oxycodone HCl (Oxycodone Hcl 20 Mg Tabcr (Oxycontin)) 20 mg PO BID [facility] Stop: 11/29/21 20:59 Last Admin: 11/18/21 11:15 Dose: 20 mg Documented by: Pantoprazole Sodium (Pantoprazole 40 Mg Tab) 40 mg PO BID [facility] Stop: 12/15/21 20:59 Last Admin: 11/18/21 09:21 Dose: 40 mg Documented by: Polyethylene Glycol (Polyethylene (Miralax) 17 Gm Pack) 17 gm PO DAILY [facility] Stop: 12/16/21 08:59 Last Admin: 11/18/21 09:18 Dose: 17 gm Documented by: Potassium Chloride (Potassium Chloride 10 Meq Tabcr) 10 meq PO QAM [facility] Stop: 12/09/21 08:59 Last Admin: 11/18/21 09:28 Dose: 10 meq Documented by: Spironolactone (Spironolactone 12.5 Mg Tab) 12.5 mg PO MoWeFr@2100 [facility] Stop: 12/13/21 20:59 Last Admin: 11/17/21 20:35 Dose: 12.5 mg Documented by: Torsemide (Torsemide 10 Mg Tab) 10 mg PO QAM [facility] Stop: 12/09/21 08:59 Last Admin: 11/18/21 09:16 Dose: 10 mg Documented by: Trolamine Salicylate (Trolamine Salicylate 10% Crm 255 Appln/85 Gm Tube) 1 appln EXT BID [facility] Stop: 12/17/21 20:59 Last Admin: 11/18/21 09:28 Dose: 1 appln Documented by: Vitamin D (Cholecalciferol 1,000 Units 25 Mcg Tab) 1,000 units PO DAILY [facility] Stop: 12/09/21 08:59 Last Admin: 11/18/21 09:21 Dose: 1,000 units Documented by:
[2021-11-18] MEDS: ENOXAPARIN INJ 40 MG/0.4 ML SYR SQ SCH (20:41)
[2021-11-18] MEDS: HYDROcodone/HOMATROPINE SYRUP 5MG/1.5MG 5ML UDP PO PRN (20:56)
[2021-11-19] MEDS: OXYCODONE IR 10 MG PO PRN (03:26)
[2021-11-19] MEDS: LEVOTHYROXINE SODIUM 125 MCG TABLET PO SCH (06:04)
[2021-11-19] MEDS: POLYETHYLENE (MIRALAX) 17 GM PACK PO SCH (08:27)
[2021-11-19] MEDS: oxyCODONE HCL 20 MG TABCR (OxyCONTIN) PO SCH ×2 (08:27→21:07)
[2021-11-19] MEDS: dilTIAZem HCL 30 MG TAB PO SCH ×3 (08:28→20:24)
[2021-11-19] MEDS: carvediloL 3.125 MG TAB PO SCH ×2 (08:28→20:22)
[2021-11-19] MEDS: BENZONATATE 100 MG CAPSULE PO SCH ×3 (08:29→20:22)
[2021-11-19] MEDS: PANTOprazole 40 MG TAB PO SCH ×2 (08:29→20:27)
[2021-11-19] MEDS: DOFETILIDE 125 MCG CAPSULE PO SCH ×2 (08:29→20:25)
[2021-11-19] MEDS: BACLOFEN 10 MG TAB PO SCH ×2 (08:29→20:21)
[2021-11-19] MEDS: FERROUS SULFATE 325 MG TAB PO SCH (08:30)
[2021-11-19] MEDS: FOLIC ACID 1 MG TAB PO SCH (08:30)
[2021-11-19] MEDS: TORSEMIDE 10 MG TAB PO SCH (08:30)
[2021-11-19] MEDS: CYANOCOBALAMIN (B-12) 500 MCG TABLET PO SCH (08:30)
[2021-11-19] MEDS: DOCUSATE SODIUM 100 MG CAP PO SCH ×2 (08:30→20:24)
[2021-11-19] MEDS: POTASSIUM CHLORIDE 10 MEQ TABCR PO SCH (08:30)
[2021-11-19] MEDS: MULTIVITAMIN TAB PO SCH (08:30)
[2021-11-19] MEDS: ASCORBIC ACID 500 MG TAB PO SCH (08:31)
[2021-11-19] MEDS: MAGNESIUM OXIDE 400 MG TAB PO SCH (08:31)
[2021-11-19] MEDS: CHOLECALCIFEROL 1,000 UNITS 25 MCG TAB PO SCH (08:31)
[2021-11-19] MEDS: NYSTATIN SUSP 500,000 U/5 ML UDC PO SCH ×3 (08:31→20:26)
[2021-11-19] MEDS: TROLAMINE SALICYLATE 10% CRM 255 APPLN/85 GM TUBE EXT SCH ×2 (08:32→20:28)
[2021-11-19] MEDS: DICLOFENAC SOD 1% GEL 100 GM TUBE EXT SCH ×2 (08:32→20:23)
[2021-11-19] MEDS: INSULIN ASPART PER UNIT SC SCH ×4 (09:10→20:55)
--- NOTE | 2021-11-19 12:49 | Hospitalist Progress Note ---
Date of Service November 19, 2021 Assessment & Plan (1) Acute on chronic respiratory failure with hypoxia: Plan: This is a 76yo F with PMH of COPD and chronic hypoxemic respiratory failure on 3L NC O2, chronic diastolic CHF, DM II, HTN, HLD, ZEYAD, paroxysmal A Fib anti coagulated on Xarelto, anemia of chronic disease, chronic cor pulmonale, morbid obesity, CKD stage III, chronic pain syndrome on narcotics and other medical problems listed below who presents with worsening SOB and cough in setting of known covid. Home covid test was positive. Presented with increased oxygen needs from baseline, and worsening SOB and productive cough Follows with [facility] pulm and was prescribed prednisone taper (down to 10mg daily) and Cefdinir course (completed) CXR with extensive patchy interstitial and alveolar opacities bilaterally characteristic of a viral type pneumonitis and probable Covid 19 pneumonia Initially required 8L Oxymask IV dexamethasone 6mg daily, out of window for remdesivir, completed 10 days of steroid and is now off. Continue scheduled duonebs, flutter valve, incentive spirometry, Tessalon Perles, home inhalers as needed Intermittent Lasix was given this admisison. Improved with oxygen supplementation back to her baseline for several days now. Cont to move around and ambulate as tolerated. There appears to be little motivation for this, however. (2) Pneumonia due to COVID-19 virus: Plan: Management as above (3) Abdominal discomfort: Plan: Appears resolved, she is eating and having BMs. No reports of pain today. Cont current therapy (4) COPD exacerbation: Plan: chronic, baseline wheezing present. Slight wheezing today but exacerbation has resolved and she is breathing at her baseline. No conversational dyspnea. Bronchodilators PRN. (5) Paroxysmal atrial fibrillation: Plan: Continue Carvedilol-inceased by cardiology to 9.375mg PO BID (cautious increase given underlying wheezing), cont Tikosyn. Previously on Xarelto but discontinued 9 months ago due to hematuria, hematochezia Heart rate remains controlled. Cont to avoid QTc prolonging medications. (6) DM type 2 (diabetes mellitus, type 2): Plan: In setting of outpatient prednisone taper presented with hyperglycemia. Initial BSG >400, give IV insulin in ED. Consulting glycemic mgmt in setting of ongoing steroids Hemoglobin A1c is high at 8.9 Around goal on insulin, cont inpatient management of insulin per glycemic pharmacist consult Patient had an episode of hypoglycemia yesterday Dexamethasone stopped today (11/19). She reports being a "brittle diabetic just like my mother." (7) Oral thrush: Plan: cont nystatin swish regimen. (8) Hypothyroidism: Plan: TSH 0.221, Free T4 high at 1.96. Reduced levothyroxine dose from 150 to 125 mcg. Repeat TFTs as outpatient. (9) Chronic diastolic CHF (congestive heart failure): Plan: Appears euvolemic, Continue torsemide 10mg daily, carvedilol dosed as above. (10) CKD (chronic kidney disease), stage III: Plan: Around her baseline, cont to monitor with BMP periodically. (11) Chronic pain syndrome: Plan: Arthritis of multiple joints. Home regimen includes Oxycontin 20mg BID and IR oxycodone 10mg Q6H PRN Continue dosing per home regimen, monitor closely --Notably scheduled her Oxy ER 20mg BID which was PRN. She is dependent on this and should take it consistently. (12) ZEYAD (obstructive sleep apnea): Plan: On 3L NC continuously at home (13) Constipation due to opioid therapy: Plan: Given relistor this admission. Not on stool softeners or laxatives. Both added and she had some miralax this am. Encourage movement as needed. (14) DVT prophylaxis: Plan: DVT Ppx: SQ lovenox Code status: FULL PCP: [facility] Dispo: med surg, stable for discharge. Off covid isolation. Per case management, son can come and pick her up tomorrow. Set up for [facility]. Carli Meek DO [facility] Hospitalist Admission and Anticipated Discharge Date Admission Date: November 08, 2021 Subjective 76 yo F presents admitted for covid pneumonia Denies CP, SOB, abdominal pain Sitting up in bedside chair-per nurse, patient is moving very well on her own Although her blood sugar was 266 around lunch, she feels like it may fall again like yesterday and wants a Sprite next to her. She verbalized understanding that we won't be able to fix her bladder while here and that covid infections leave people fatigued and tired Review of Systems Review of Systems: All systems reviewed & are unremarkable except as noted in Subjective Physical Exam Physical Exam: CONSTITUTIONAL: obese, vitals as above, generally well- appearing, NAD, sitting comfortably in bedside chair. EYES: normal conjunctivae, no scleral icterus ENT: external ear and nose normal, oropharynx clear NECK: trachea midline RESPIRATORY: no wheezing, rales heard at bases, no rhonchi. normal respiratory effort, no conversational dyspnea. CARDIOVASCULAR: regular rate and rhythm, S1 and 2 heard without murmurs, gallops or rubs, no JVD, no peripheral edema CHEST: inspection of chest was normal GASTROINTESTINAL: soft, generalized tenderness to palpation without guarding, nondistended, multiple areas of ecchymosis present from DVT prophylaxis MUSCULOSKELETAL: strength 5/5 throughout, head is normocephalic and atraumatic SKIN: warm and dry NEUROLOGIC: CN 2-12 grossly intact, no sensory deficit, normal cognition, normal speech, no tremor, no gross focal deficits. PSYCHIATRIC: alert cooperative and oriented to person, place and time. Results & Data Results & Data ([facility]) Vital Signs (Past 12 Hours) Vital Signs Temp Pulse Resp BP Pulse Ox 11/19/21 07:22 36.6 C 56 L 18 144/88 H 96 Medications Administered Current Inpatient Medications Acetaminophen (Acetaminophen 325 Mg Tab) 650 mg PO Q4H PRN PRN Reason: Pain or Fever Stop: 12/08/21 20:19 Albuterol (Albuterol Hfa 8 Gm Inhaler) 2 puffs INH Q6R PRN PRN Reason: Shortness Of Breath Stop: 12/08/21 21:14 Albuterol (Albut/Ipratrop 3mg/0.5mg Neb 3 Ml Vial) 3 ml NEB Q4R PRN; Protocol PRN Reason: Shortness Of Breath Or Wheezing Stop: 12/09/21 08:24 Last Admin: 11/15/21 21:17 Dose: 3 ml Documented by: Ascorbic Acid (Ascorbic Acid 500 Mg Tab) 250 mg PO DAILY [facility] Stop: 12/09/21 08:59 Last Admin: 11/19/21 08:31 Dose: 250 mg Documented by: Baclofen (Baclofen 10 Mg Tab) 5 mg PO BID [facility] Stop: 12/08/21 21:29 Last Admin: 11/19/21 08:29 Dose: 5 mg Documented by: Benzonatate (Benzonatate 100 Mg Capsule) 100 mg PO TID [facility] Stop: 12/08/21 21:29 Last Admin: 11/19/21 08:29 Dose: 100 mg Documented by: Carvedilol (Carvedilol 3.125 Mg Tab) 9.375 mg PO BID [facility] Stop: 12/14/21 20:59 Last Admin: 11/19/21 08:28 Dose: 9.375 mg Documented by: Cyanocobalamin (Cyanocobalamin 500 Mcg Tablet (Vitamin B-12)) 500 mcg PO DAILY [facility] Stop: 12/09/21 08:59 Last Admin: 11/19/21 08:30 Dose: 500 mcg Documented by: Dextrose (Dextrose 50% 50 Ml Syringe) 25 - 50 ml IV UD PRN; Protocol PRN Reason: Hypoglycemia Protocol Stop: 12/08/21 21:44 Diclofenac Sodium (Diclofenac Sod 1% Gel 100 Gm Tube) 2 gm EXT BID [facility] Stop: 12/13/21 12:59 Last Admin: 11/19/21 08:32 Dose: 2 gm Documented by: Diltiazem HCl (Diltiazem Hcl 30 Mg Tab) 30 mg PO TID [facility] Stop: 12/15/21 13:59 Last Admin: 11/19/21 08:28 Dose: 30 mg Documented by: Docusate Sodium (Docusate Sodium 100 Mg Cap) 100 mg PO BID [facility] Stop: 12/15/21 20:59 Last Admin: 11/19/21 08:30 Dose: 100 mg Documented by: Dofetilide (Dofetilide 125 Mcg Capsule) 250 mcg PO BID [facility] Stop: 12/08/21 21:29 Last Admin: 11/19/21 08:29 Dose: 250 mcg Documented by: Enoxaparin Sodium (Enoxaparin Inj 40 Mg/0.4 Ml Syr) 40 mg SQ HS [facility] Stop: 12/08/21 21:29 Last Admin: 11/18/21 20:41 Dose: 40 mg Documented by: Estrogens Conjugated (Premarin Vag Crm 14 Appln/30 Gm Tube) 1 appln PV MoWeFr@2100 [facility] Stop: 12/13/21 20:59 Last Admin: 11/17/21 20:39 Dose: 1 appln Documented by: Ferrous Sulfate (Ferrous Sulfate 325 Mg Tab) 325 mg PO DAILY [facility] Stop: 12/09/21 08:59 Last Admin: 11/19/21 08:30 Dose: 325 mg Documented by: Folic Acid (Folic Acid 1 Mg Tab) 1 mg PO DAILY [facility] Stop: 12/09/21 08:59 Last Admin: 11/19/21 08:30 Dose: 1 mg Documented by: Glucagon (Glucagon For Inj 1 Mg Vial) 1 mg IM UD PRN; Protocol PRN Reason: Hypoglycemia Protocol Stop: 12/08/21 21:44 Glucose (Glucose 40% Gel 15 Gm Tube) 15 - 30 gm PO UD PRN; Protocol PRN Reason: Hypoglycemia Protocol Stop: 12/08/21 21:44 Glucose (Glucose 10 Tabs/Tube) 4 - 8 tabs PO UD PRN; Protocol PRN Reason: Hypoglycemia Protocol Stop: 12/08/21 21:44 Hydrocortisone (Hydrocortisone Hc 2.5% Crm 30gm Tube) 1 appln EXT BID PRN PRN Reason: hemorrhoid Stop: 12/08/21 20:19 Promethazine HCl 12.5 mg/ (Sodium Chloride) 50.5 mls @ 202 mls/hr IV Q6H PRN PRN Reason: Nausea And Vomiting Stop: 12/13/21 11:38 Last Infusion: 11/14/21 09:11 Dose: Infused Documented by: Insulin Aspart (Insulin Aspart Per Unit) 0 units [facility]; Protocol Stop: 12/13/21 20:59 Last Admin: 11/18/21 20:30 Dose: 2 units Documented by: Insulin Aspart (Insulin Aspart Per Unit) 0 units SC [facility]; Protocol Stop: 12/13/21 11:29 Last Admin: 11/19/21 12:26 Dose: 13 units Documented by: Levalbuterol HCl (Levalbuterol Hcl 1.25 Mg/3 Ml Neb) 1.25 mg NEB Q4H PRN; Protocol PRN Reason: Shortness Of Breath Or Wheezing Stop: 12/09/21 20:29 Levothyroxine Sodium ([facility]othy[facility]ine S[facility] 125 Mcg Tablet) [facility]: 12/09/21 06:29 Last Admin: 11/19/21 06:04 Dose: 125 mcg Documented by: Magnesium Oxide (Magnesium Oxide 400 Mg Tab) 400 mg PO DAILY [facility]; Protocol Stop: 12/09/21 08:59 Last Admin: 11/19/21 08:31 Dose: 400 mg Documented by: Meclizine HCl (Meclizine Hcl 25 Mg Tab) 25 mg PO Q8H PRN PRN Reason: dizziness Stop: 12/08/21 21:14 Last Admin: 11/18/21 09:16 Dose: 25 mg Documented by: Miscellaneous (Carbohydrates For Hypoglycemia ) 15 - 30 gm PO UD PRN PRN Reason: Hypoglycemia Treatment Stop: 12/08/21 21:44 Last Admin: 11/18/21 15:49 Dose: 15 gm Documented by: Miscellaneous Information (Pharmacy Glycemic Mgmt Consult) 1 ea N/A UD PRN PRN Reason: Consult Stop: 12/08/21 17:52 Multivitamins (Multivitamin Tab) 1 tab PO DAILY [facility] Stop: 12/09/21 08:59 Last Admin: 11/19/21 08:30 Dose: 1 tab Documented by: *Oxycodone Ir 10 Mg* Patient's Own Controlled Med 1 1 ea PO Q6H PRN PRN Reason: Pain Stop: 11/22/21 22:44 Last Admin: 11/17/21 15:38 Dose: 1 dose Documented by: *Oxycodone Ir 10 Mg* Non-Formulary Patient's Own Med 1 ea PO Q6H PRN PRN Reason: Pain Stop: 12/08/21 22:44 Last Admin: 11/19/21 03:26 Dose: 10 mg Documented by: Nystatin (Nystatin Susp 500,000 U/5 Ml [facility]) 10 ml PO TID [facility] Stop: 11/22/21 20:59 Last Admin: 11/19/21 08:31 Dose: 10 ml Documented by: Oxycodone HCl (Oxycodone Hcl 20 Mg Tabcr (Oxycontin)) 20 mg PO BID [facility] Stop: 11/29/21 20:59 Last Admin: 11/19/21 08:27 Dose: 20 mg Documented by: Pantoprazole Sodium (Pantoprazole 40 Mg Tab) 40 mg PO BID [facility] Stop: 12/15/21 20:59 Last Admin: 11/19/21 08:29 Dose: 40 mg Documented by: Polyethylene Glycol (Polyethylene (Miralax) 17 Gm Pack) 17 gm PO DAILY [facility] Stop: 12/16/21 08:59 Last Admin: 11/19/21 08:27 Dose: 17 gm Documented by: Potassium Chloride (Potassium Chloride 10 Meq Tabcr) 10 meq PO QAM [facility] Stop: 12/09/21 08:59 Last Admin: 11/19/21 08:30 Dose: 10 meq Documented by: Spironolactone (Spironolactone 12.5 Mg Tab) 12.5 mg PO MoWeFr@2100 [facility] Stop: 12/13/21 20:59 Last Admin: 11/17/21 20:35 Dose: 12.5 mg Documented by: Torsemide (Torsemide 10 Mg Tab) 10 mg PO QAM [facility] Stop: 12/09/21 08:59 Last Admin: 11/19/21 08:30 Dose: 10 mg Documented by: Trolamine Salicylate (Trolamine Salicylate 10% Crm 255 Appln/85 Gm Tube) 1 appln EXT BID [facility] Stop: 12/17/21 20:59 Last Admin: 11/19/21 08:32 Dose: 1 appln Documented by: Vitamin D (Cholecalciferol 1,000 Units 25 Mcg Tab) 1,000 units PO DAILY [facility] Stop: 12/09/21 08:59 Last Admin: 11/19/21 08:31 Dose: 1,000 units Documented by:
[2021-11-19] MEDS: ENOXAPARIN INJ 40 MG/0.4 ML SYR SQ SCH (20:25)
[2021-11-19] MEDS: ALBUT/IPRATROP 3MG/0.5MG NEB 3 ML VIAL NEB PRN (21:56)
[2021-11-20] MEDS: LEVOTHYROXINE SODIUM 125 MCG TABLET PO SCH (06:37)
[2021-11-20] MEDS: PANTOprazole 40 MG TAB PO SCH (08:03)
[2021-11-20] MEDS: BENZONATATE 100 MG CAPSULE PO SCH ×2 (08:04→13:42)
[2021-11-20] MEDS: CHOLECALCIFEROL 1,000 UNITS 25 MCG TAB PO SCH (08:04)
[2021-11-20] MEDS: MAGNESIUM OXIDE 400 MG TAB PO SCH (08:04)
[2021-11-20] MEDS: CYANOCOBALAMIN (B-12) 500 MCG TABLET PO SCH (08:05)
[2021-11-20] MEDS: FOLIC ACID 1 MG TAB PO SCH (08:05)
[2021-11-20] MEDS: POTASSIUM CHLORIDE 10 MEQ TABCR PO SCH (08:05)
[2021-11-20] MEDS: TORSEMIDE 10 MG TAB PO SCH (08:05)
[2021-11-20] MEDS: ASCORBIC ACID 500 MG TAB PO SCH (08:05)
[2021-11-20] MEDS: MULTIVITAMIN TAB PO SCH (08:06)
[2021-11-20] MEDS: BACLOFEN 10 MG TAB PO SCH (08:06)
[2021-11-20] MEDS: FERROUS SULFATE 325 MG TAB PO SCH (08:07)
[2021-11-20] MEDS: DOCUSATE SODIUM 100 MG CAP PO SCH (08:07)
[2021-11-20] MEDS: DOFETILIDE 125 MCG CAPSULE PO SCH (08:08)
[2021-11-20] MEDS: dilTIAZem HCL 30 MG TAB PO SCH ×2 (08:08→13:42)
[2021-11-20] MEDS: carvediloL 3.125 MG TAB PO SCH (08:08)
[2021-11-20] MEDS: DICLOFENAC SOD 1% GEL 100 GM TUBE EXT SCH (08:09)
[2021-11-20] MEDS: NYSTATIN SUSP 500,000 U/5 ML UDC PO SCH ×2 (08:10→13:42)
[2021-11-20] MEDS: POLYETHYLENE (MIRALAX) 17 GM PACK PO SCH (08:10)
[2021-11-20] MEDS: TROLAMINE SALICYLATE 10% CRM 255 APPLN/85 GM TUBE EXT SCH (08:10)
[2021-11-20] MEDS: oxyCODONE HCL 20 MG TABCR (OxyCONTIN) PO SCH (08:15)
[2021-11-20] MEDS: INSULIN ASPART PER UNIT SC SCH ×2 (08:44→11:57)
[2021-11-20] MEDS: ALBUT/IPRATROP 3MG/0.5MG NEB 3 ML VIAL NEB PRN (09:49)
--- NOTE | 2021-11-20 10:52 | Pharmacy Report ---
Pharmacy Glycemic Short Note 2 - Date of Service November 20, 2021 - Glycemic Short BSG Results (Last 24 hours): 11/19/21 11/19/21 11/19/21 11:51 16:09 16:59 POC Glucose 216 H 115 H 120 H 11/19/21 11/19/21 11/20/21 20:02 20:35 04:32 POC Glucose 52 L* 125 H 140 H 11/20/21 07:28 POC Glucose 135 H OUTPATIENT ANTIDIABETIC REGIMEN: * Metformin 500 mg PO PM * Recently started on prednisone taper * HbA1c: 8.9% (11/09/21) ASSESSMENT: 11/20: * Patient received 33 units of insulin yesterday, all Novolog. BSGs were labile: [phone] mg/dL. * Last dose of Dexamethasone was 11/18/21 so NPH was discontinued yesterday. * Possible stacking of Novolog causing hypoglycemic last evening. BSG improved with HS snack. * Fasting BSG of 135 mg/dL this AM is at goal. Continue without basal insulin. * Continue with Novolog dosing as is for today. Believe some steroids still in system yesterday and BSGs should improve today as we get further away from steroid use. 11/16: * Patient's BSGs yesterday were [phone] mg/dL. Today's BSGs are 130-141 mg/dL. * Dexamethasone changed to 6 mg PO from IV. * Decrease NPH to 10 units daily due to change in route of dexamethasone. * Continue Novolog. PLAN FOR INPATIENT GLYCEMIC CONTROL: * Hold outpatient oral diabetes medications * Basal insulin * None * Bolus insulin * NovoLog per scale ACHS or Q6hrs while NPO * Goal Range: Low 110 mg/dL - High 140 mg/dL * Breakfast, Lunch, Dinner: Correction Factor: 20 mg/dL/unit; Nutritional/Prandial insulin per carb ratio of 1 unit per 7 grams CHO consumed * Bedtime: Correction Factor: 20 mg/dL/unit; No carb coverage at HS PLAN FOR DISCHARGE: * HbA1c of 8.9% suggests poor outpatient glycemic control, but may also be in part due to recent outpatient prednisone usage * Reasonable goal for this patient would be HbA1c less than 8% in light of age and comorbidities * Baseline eGFR ~40-50 mL/min/1.73 m2 - assuming return to this baseline at time of discharge * Patient would likely benefit from addition of SGLT-2 inhibitor, i.e. empagliflozin 10 mg PO daily in light of CKD (w/ eGFR > 30) and CHF * Okay to continue metformin
--- NOTE | 2021-11-20 12:12 | Discharge Summary ---
Date of Service November 20, 2021 Admission HPI Per Admitting Provider This is a 76yo F with PMH of COPD and chronic hypoxemic respiratory failure on 3L NC O2, chronic diastolic CHF, DM II, HTN, HLD, ZEYAD, paroxysmal A Fib anticoagulated on Xarelto, anemia of chronic disease, chronic cor pulmonale, morbid obesity, CKD stage III, chronic pain syndrome on narcotics and other medical problems listed below who presents with worsening SOB and cough in setting of known covid. Took a home test 10 days ago that was positive. Is on 3L NC O2 at baseline for COPD but has had to increase to 5L over the past few days in setting of worsening SOB and productive cough. Follows with [facility] pulm and was prescribed prednisone taper and Cefdinir course when initially diagnosed with covid that she has completed. Endorses chills, nausea, decreased appetite and pleuritic chest pain. No fever, chest pain, palpitations, vomiting or abdominal pain. Ongoing issues with urinary incontinence. No diarrhea or constipation. 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 chronic bladder prolapse Discharge Data Allergies Allergy/AdvReac Type Severity Reaction Status Date / Time aspirin Allergy Severe HIVES, SOB Verified 11/08/21 18:35 Iodinated Contrast Media Allergy Severe "CAUSED Verified 11/08/21 18:35 ASTHMA ATTACK" & HIVES ipratropium Allergy Severe SHORTNESS Verified 11/08/21 18:35 OF BREATH metaproterenol [From Alupent] Allergy Severe EYES AND Verified 11/08/21 18:35 FACE SWELLING, SEVERE WHEEZING NSAIDS (Non-Steroidal Allergy Severe Hives Verified 11/08/21 18:35 Anti-Inflamma Penicillins Allergy Severe SOB, HIVES Verified 11/08/21 18:35 sotalol Allergy Severe increased Verified 11/08/21 18:35 breathing problems Sulfa (Sulfonamide Allergy Severe Anaphylaxis Verified 11/08/21 18:35 Antibiotics) tiotropium Allergy Severe SYMPTOMS Verified 11/08/21 18:35 [From Spiriva with GOT WORSE [employer]] INSTEAD OF BETTER WITH BREATHING arformoterol Allergy Intermediate TACHYCARDIA Verified 11/08/21 18:35 aspartame Allergy Intermediate HIVES, Verified 11/08/21 18:35 ITCHY ciprofloxacin Allergy Intermediate WHEEZING, Verified 11/08/21 18:35 NAUSEA clarithromycin [From Biaxin] Allergy Intermediate Unknown, ? Verified 11/08/21 18:35 WHEEZING , OR NAUSEA ? Fish Containing Products Allergy Intermediate BODY CAN'T Verified 11/08/21 18:35 ABSORB fish derived Allergy Intermediate Unknown Verified 11/08/21 18:35 latex Allergy Intermediate ITCHY/RASH Verified 11/08/21 18:35 nickel Allergy Intermediate RASH & Verified 11/08/21 18:35 BLISTERS pioglitazone [From Actos] Allergy Intermediate RETAINED Verified 11/08/21 18:35 FLUID povidone Allergy Intermediate BLISTER Verified 11/08/21 18:35 WITH TAPE shellfish derived Allergy Intermediate BODY CAN'T Verified 11/08/21 18:35 ABSORB, "SMELL LIKE A FISH" stevioside [From Stevia] Allergy Intermediate Wheezing Verified 11/08/21 18:35 sucralose Allergy Intermediate Wheezing Verified 11/08/21 18:35 [From Splenda (sucralose)] adhesive Allergy Mild BLISTERS Verified 11/08/21 18:35 WITH TAPE apixaban [From Eliquis] Allergy Mild SEE NOTES Verified 11/08/21 18:35 BELOW banana Allergy Mild "FEELS Verified 11/08/21 18:35 LIKE PEACH FUZZ IN MOUTH" chlorhexidine Allergy Mild BLISTERY Verified 11/08/21 18:36 RASH psyllium [From Metamucil] AdvReac Intermediate bloating Verified 11/08/21 18:36 meperidine AdvReac Mild Gastrointestinal Verified 11/08/21 18:36 Upset, N/V metformin [From Riomet] AdvReac Mild DIARRHEA Verified 11/08/21 18:36 WITH MORE THAN 1 A DAY morphine AdvReac Mild Gastrointestinal Verified 11/08/21 18:36 Upset,N/V tapentadol [From Nucynta] AdvReac Mild Nausea and Verified 11/08/21 18:36 vomiting Consultations 11/08/21 17:42 ED Decision to Admit Stat 11/14/21 12:04 Consult Cardiology Routine 11/15/21 08:42 Consult Infectious Diseases Routine Hospital Course (1) Acute on chronic respiratory failure with hypoxia: (2) Pneumonia due to COVID-19 virus: (3) COPD exacerbation: (4) Paroxysmal atrial fibrillation: (5) DM type 2 (diabetes mellitus, type 2): (6) Oral thrush: (7) Hypothyroidism: (8) Chronic diastolic CHF (congestive heart failure): (9) Chronic pain syndrome: 76 yo F on chronic oxygen for underlying COPD and dependent on high dose oxycodone for chronic pain presented with acute respiratory failure 2/2 covid pneumonia.She had recently been prescribed a course of cefdinir and prednisone prior to admission.She was initially requiring 10LPM of supplemental oxygen but was able to wean down to her baseline needs with treatment.She was treated with 10 days of dexamethasone and was not given remdesivir as she was outside of the beneficial treatment window.She was continued on carvedilol and tikosyn per her home regimen but was off Xarelto which was stopped 9 months prior because of hematochezia.During her stay she was manifesting episodes of PAF and was minimally symptomatic.Her carvedilol was increased to 9.375 PO BID and Tikosyn was continued at her current dosing.She was found to have >100K CFU of ESBL E coli in her urine and infectious disease was consulted.As she was asymptomatic, treatment was not recommended and bob catheter was recommended to be removed.She refused removal of this, however, stating she was more comfortable with it in because of her chronic bladder prolapse.She was advised on the development of CAUTI and verbalized understanding of this.She reluctantly allowed the removal of this on day of discharge.She was back to baseline oxygen needs on Sat prior to discharge but remained in the hospital as therapy recommended SNF.She declined SNF and opted for Home Health which was set up over the weekend.She was discharged in stable condition, with complete resolution of initial dyspnea, and on baseline oxygen needs.Close primary care follow-up was recommended.During her stay TFTs revealed TSH 0.221, Free T4 high at 1.96. Reduced levothyroxine dose from 150 to 125 mcg. Repeat TFTs as outpatient. Total Time Total Time Spent Total Time Spent (In Minutes): 60 Discharge Plan Discharge Items Patient Disposition: Home - Home Health Services Reason For Visit: ACUTE ON CHRONIC RESP FAILURE, COVID Discharge Diagnosis: covid pneumonia Condition on Discharge: Good Activity: Resume your previous activity Non-emergency contact: Primary Care Provider and Mash Tub [employer]er Call non-emergency contact if: you have any medication questions and your symptoms worsen Follow-up/Referrals: Flex Barr MD [Primary Care Provider] - (Date & Time 11/22/2021 11:00 AM Provider Flex Barr MD Department [facility] ) Diet: Carb Consistent or DM2 Addtl Attending Provider Instructions: Please take all medications as instructed on discharge list below. Please note several changes. It is recommended that you followup with your primary care provider within one week of discharge from the hospital. This will be to ensure that you are still doing well since returning home, recheck your blood sugar and ensure you are doing well from the transition off insulin and steroids back to metformin, and to ensure no medication side effects are present with any of the medication changes that were made. Notably you had pneumonia and a repeat chest xray is recommended in 4 weeks to ensure complete resolution of this. Also, your thyroid supplementation dosing was changed based on your thyroid function studies and clinical presentation to the hospital. You will need repeat thyroid function tests in 6-8 weeks. Please follow-up with cardiology as instructed. It was a pleasure taking care of you! Please call if you have any questions or problems. You can reach a [facility] hospitalist on duty at [facility] 24 hours a day by calling [phone]. Take care of yourself. Carli Meek, DO [facility] P[facility] Studies at Discharge: No Stand-Alone Forms: My [facility] Medications and DC Order Prescriptions: New carvedilol 3.125 mg Tablet 9.375 mg PO BID Qty: 180 RF: 0 diltiazem HCl 30 mg Tablet 30 mg PO TID Qty: 90 RF: 0 levothyroxine [Synthroid] 125 mcg Tablet 125 mcg PO DAILYBB Qty: 30 RF: 0 Continued albuterol sulfate 90 mcg/actuation HFA aerosol inhaler 2 inh INHALATION Q6H PRN (Reason: SOB) Qty: 3 RF: 5 albuterol sulfate 2.5 mg /3 mL (0.083 %) solution for nebulization 2.5 mg inhalation Q4H PRN (Reason: sob) Qty: 180 RF: 5 prednisone 10 mg tablet See Rx Instructions PO DAILY Qty: 36 RF: 0 mupirocin 2 % ointment 1 applic topical BID Qty: 22 RF: 1 (DME) nebulizers Misc See Rx Instructions miscellaneous .MEDSUPPLY Qty: 1 RF: 0 polyethylene glycol 3350 [Miralax] 17 gram Powder In Packet 17 g PO QAM PRN (Reason: Constipation) RF: 0 ondansetron HCl 4 mg Tablet 4 mg PO Q8H PRN (Reason: Nausea) RF: 0 acetaminophen [Tylenol 8 Hour] 650 mg Tablet Extended Release 650 mg PO UD PRN (Reason: Pain) RF: 0 magnesium 200 mg Tablet 600 mg PO DAILY RF: 0 diclofenac sodium 2 % Solution In Packet 1 packet TOPICAL UD PRN (Reason: Pain) RF: 0 multivitamin Tablet 1 tab PO DAILY RF: 0 dofetilide 250 mcg capsule 250 mcg PO BID RF: 0 torsemide 10 mg Tablet 10 mg PO QAM RF: 0 potassium chloride 10 mEq Tablet Extended Release 10 meq PO QAM RF: 0 spironolactone 25 mg Tablet 12.5 mg PO MOWEFR@0900 RF: 0 hydrocortisone [Proctosol HC] 2.5 % Cream With Perineal Applicator 1 applic [place] BID PRN (Reason: hemorrhoid) RF: 0 cyanocobalamin (vitamin B-12) 500 mcg Tablet 500 mcg PO DAILY RF: 0 meclizine 25 mg Tablet 25 mg PO Q8H PRN (Reason: dizziness) RF: 0 baclofen 10 mg Tablet 5 mg PO BID RF: 0 pantoprazole 40 mg Tablet,Delayed Release (Dr/Ec) 40 mg PO DAILY PRN (Reason: Abdominal Pain) RF: 0 Premarin 0.625 mg/gram Cream 0.625 mg VAGINAL MOWEFR@0900 RF: 0 metformin 500 mg Tablet Extended Release 24 Hr 500 mg PO QPM RF: 0 cholecalciferol (vitamin D3) 25 mcg (1,000 unit) Capsule 25 mcg PO DAILY RF: 0 ferrous fumarate-vitamin C 200 mg (66 mg iron)-125 mg Tablet 1 tab PO DAILY RF: 0 folic acid 1 mg Tablet 1 mg PO DAILY RF: 0 benzonatate 100 mg capsule 100 mg PO TID PRN (Reason: Cough) RF: 0 oxycodone 10 mg tablet 10 mg PO Q6H PRN (Reason: Pain) RF: 0 oxycodone [OxyContin] 20 mg tablet,oral only,ext.rel.12 hr 20 mg PO BID PRN (Reason: Pain) RF: 0 Discontinued levothyroxine 150 mcg Tablet 150 mcg PO QAM RF: 0 carvedilol 6.25 mg tablet 6.25 mg PO BID RF: 0 Discharge Orders: Discharge Order (Routine); Ordered 11/20/21 Ordered By: Carli Culver/Other Patient Handouts: High Blood Sugar (Hyperglycemia), Managing Type 2 Diabetes Admission Data Admit Date/Time: 11/08/21 17:53 Attending Provider: Carli Meek Admit Provider: Alex El Primary Care Provider: Flex Barr Other Providers: [facility],Home Healthcare ; Alex El ; Beto Giordano ; Hema Yoder ; Zaid Law ; Selvin Tunrer ; Clarence Burgess ; Massimo Pino ; Cherry Sarabia ; Meredith Martin ; Rashida Ahumada ; Pardeep Kaur ; Edward Negrete ; Jackson Garcia ; Patric Rai I. ; Gaurav Macario II ; Soraida Polk ; Massimo Quinteros ; Morgan Conklin Other Interventions: Discharge Summary Assessment (RN) Last Done: 11/20/21 12:15 Home Health Attestation I certify that this patient is under my care and that I, or a physicians assistant professor in family studies working with me, had a face to-face encounter that meets the home health [id number] encounter requirements with this patient. The encounter with the patient was in whole, or in part, for the following medical condition, which is the primary reason for home health care (list medical condition): Covid I certify that, based on my findings, the following services are medically necessary home health services: My clinical findings support the need for the above services because: OT Assess ADL Status and Restore Function w ADLs PT Assessment for Endurance / Balance / Strength PT Eval for Safety and Mobility PT Eval for Safety, Gait Training, Assistive Devices PT Gait and Balance Training, Strengthening and Safety Skilled Nsg Assessment Further, I certify that my clinical findings support that this patient is homebound (i.e. absences from home require considerable and taxing effort and ar e for medical reasons or yazidi services or infrequently or of short duration when for other reasons) because: Transportation Assistance/Unable to Leave Home Unassisted Certification for Home Health Services: Based on the above findings, I certify that this patient is confined to the home and needs intermittent correction care, physical therapy and/or speech therapy or continues to need occupational therapy. The patient is under my care, and I have initiated the establishment of the plan of care. This patient will be followed by a physician who will periodically review the plan of care.
[2021-11-20] MEDS: OXYCODONE IR 10 MG PO PRN (13:24)
== END 2021-11-20 16:36 | disposition home health service (06) | DRG 177 ==
LOC: ED 15:26 → 2S 17:53 → SUATTDRO 17:53 → 2S 19:29

== ENCOUNTER 2021-11-28 22:43 | Inpatient (IN) ==
--- NOTE | 2021-11-28 23:26 | Emergency Department Note ---
Impression & Plan Hypoxia ADMIT ED Provider Note HPI: The patient is a 76-year-old female with history of morbid obesity, diastolic CHF, chronic hypoxemic respiratory failure on nasal cannula oxygen, 3 L at baseline, COPD, presents the emergency department the chief complaint of worseni ng shortness of breath. Patient states that she was taking her pulse ox at home and her oxygen was "low". Patient arrives via EMS on increased oxygen at 6 L nasal cannula, she is saturating appropriately on the increased oxygen level. Patient denies any chest pain, on arrival she is otherwise hemodynamically stable, no acute distress on my initial assessment. ROS: -Pulmonary: Shortness of breath *10 point review systems was conducted and is otherwise negative unless stated above *Outpatient medications and allergy history reviewed PE: General: Alert, NAD, morbidly obese HEENT: Normocephalic, atraumatic Eyes: Extraocular eye movement is intact, no scleral erythema Pulmonary: Diminished air movement bilaterally Cardio: Regular rate and rhythm GI: Abdomen is soft, nontender : No suprapubic tenderness MSK: No evidence of trauma or malformation of the extremities, no edema Skin: No evidence of rash Neuro: Alert, no focal deficits Psychiatric: Cooperative front desk monitor: - An order was placed for continuous cardiac monitoring - Patient was noted to be in atrial fibrillation rhythm with rate of 90 EKG: Rate: 93 Rhythm: Atrial fibrillation Intervals: QTC 517, otherwise within normal limits ST changes: No ST elevation Time: 2255 Medical Decision Making: Patient presented to the emergency department the chief complaint worsening shortness of breath over the past several days. She recently did have an inpatient stay for hypoxemic respiratory failure and Covid pneumonia. She was discharged about a week ago. On arrival here to the ED she is on increased nasal cannula oxygen at 6 L, she is otherwise in no acute distress on my initial assessment. Chest x-ray shows what appears to be a worsening multifocal pneumonia, likely COVID-19 given her recent admission, this does appear somewhat worse than her previous per my interpretation. Lab work was obtained and shows evidence of stable anemia with a hemoglobin of 8.1, this is near the patient's baseline, troponin is also elevated at 0.05, patient does not have any chest pain currently, suspect this is demand given her increased work of breathing and increased oxygen requirement. Venous blood gas is compensated. Patient was given a dose of IV Decadron for hypoxia and suspected COVID-19 pneumonia, COVID-19 test is pending at this time. I discussed the above findings with the on-call hospitalist for [facility], Dr. Cueva, who accepted the patient to a monitored bed for further management. * CRITICAL CARE TIME: ( 31 ) minutes -Stabilization of hypoxia with oxygen saturations less than 90% on 3 L nasal cannula oxygen requiring increased oxygen to be delivered at 6 L, time spent at the bedside, interpretation of diagnostic studies, arrangement of admission Diagnosis: 1. Hypoxic respiratory failure 2. Multifocal pneumonia, viral 3. Elevated troponin Disposition: Admission Massimo Pérez DO Emergency Medicine Past Med/Surg History Medical History Asthma USED RESCUE INHALER LAST WEEKEND Back problem 3 DISCS PUSHING ON SCIATIC NERVE PER PT>CAUSES R LEG NUMBNESS AT TIMES LYING FLAT FOR EXTENDED TIME WILL CAUSE LEGS TO JUMP Chronic anticoagulation Chronic diastolic CHF (congestive heart failure) Chronic low blood pressure Chronic respiratory failure with hypoxia CKD (chronic kidney disease), stage III COPD (chronic obstructive pulmonary disease) Cor pulmonale, chronic DM type 2 (diabetes mellitus, type 2) Dyslipidemia History of Meniere's disease History of TIA (transient ischemic attack) ? NEVER CONFIRMED (PT DOES NOT THINK SHE HAD TIA) Hx of vertigo Hypothyroidism Impingement syndrome of both shoulders ZEYAD (obstructive sleep apnea) WEARS 3-4L CONT. Osteoarthritis Oxygen dependent 3-4L CONT. 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: No Beliefs That Will Affect Care: None marital status: Current Living Situation: Family Current Living Situation Comment: lives with son How many Children do You have: 2 Feels Safe at Home: Yes Assistive Devices: Oxygen - Continuous and Walker Allergies Allergies Allergy/AdvReac Type Severity Reaction Status Date / Time aspirin Allergy Severe HIVES, SOB Verified 11/28/21 23:31 Iodinated Contrast Media Allergy Severe "CAUSED Verified 11/28/21 23:31 ASTHMA ATTACK" & HIVES ipratropium Allergy Severe SHORTNESS Verified 11/28/21 23:31 OF BREATH metaproterenol [From Alupent] Allergy Severe EYES AND Verified 11/28/21 23:31 FACE SWELLING, SEVERE WHEEZING NSAIDS (Non-Steroidal Allergy Severe Hives Verified 11/28/21 23:31 Anti-Inflamma Penicillins Allergy Severe SOB, HIVES Verified 11/28/21 23:31 sotalol Allergy Severe increased Verified 11/28/21 23:31 breathing problems Sulfa (Sulfonamide Allergy Severe Anaphylaxis Verified 11/28/21 23:31 Antibiotics) tiotropium Allergy Severe SYMPTOMS Verified 11/28/21 23:31 [From Spiriva with GOT [employer]SE [employer]] INSTEAD OF BETTER WITH BREATHING arformoterol Allergy Intermediate TACHYCARDIA Verified 11/28/21 23:31 aspartame Allergy Intermediate HIVES, Verified 11/28/21 23:31 ITCHY ciprofloxacin Allergy Intermediate WHEEZING, Verified 11/28/21 23:31 NAUSEA clarithromycin [From Biaxin] Allergy Intermediate Unknown, ? Verified 11/28/21 23:31 WHEEZING , OR NAUSEA ? Fish Containing Products Allergy Intermediate BODY CAN'T Verified 11/28/21 23:31 ABSORB fish derived Allergy Intermediate Unknown Verified 11/28/21 23:31 latex Allergy Intermediate ITCHY/RASH Verified 11/28/21 23:31 nickel Allergy Intermediate RASH & Verified 11/28/21 23:31 BLISTERS pioglitazone [From Actos] Allergy Intermediate RETAINED Verified 11/28/21 23:31 FLUID povidone Allergy Intermediate BLISTER Verified 11/28/21 23:31 WITH TAPE shellfish derived Allergy Intermediate BODY CAN'T Verified 11/28/21 23:31 ABSORB, "SMELL LIKE A FISH" stevioside [From Stevia] Allergy Intermediate Wheezing Verified 11/28/21 23:31 sucralose Allergy Intermediate Wheezing Verified 11/28/21 23:31 [From Splenda (sucralose)] adhesive Allergy Mild BLISTERS Verified 11/28/21 23:31 WITH TAPE apixaban [From Eliquis] Allergy Mild SEE NOTES Verified 11/28/21 23:31 BELOW banana Allergy Mild "FEELS Verified 11/28/21 23:31 LIKE PEACH FUZZ IN MOUTH" chlorhexidine Allergy Mild BLISTERY Verified 11/28/21 23:31 RASH psyllium [From Metamucil] AdvReac Intermediate bloating Verified 11/28/21 23:31 meperidine AdvReac Mild Gastrointestinal Verified 11/28/21 23:31 Upset, N/V metformin [From Riomet] AdvReac Mild DIARRHEA Verified 11/28/21 23:31 WITH MORE THAN 1 A DAY morphine AdvReac Mild Gastrointestinal Verified 11/28/21 23:31 Upset,N/V tapentadol [From Nucynta] AdvReac Mild Nausea and Verified 11/28/21 23:31 vomiting Home Meds Home Medications Medication Instructions Recorded Confirmed baclofen 10 mg tablet 5 mg PO BID 09/12/20 11/28/21 cholecalciferol (vitamin D3) 25 25 mcg PO DAILY 09/12/20 11/28/21 mcg (1,000 unit) capsule conjugated estrogens 0.625 mg/gram 0.625 mg VAGINAL 3XWK 09/12/20 11/28/21 vaginal cream (Premarin) cyanocobalamin (vitamin B-12) 500 500 mcg PO DAILY 09/12/20 11/28/21 mcg tablet dofetilide 250 mcg capsule 250 mcg PO BID 09/12/20 11/28/21 hydrocortisone 2.5 % topical cream 1 applic OH BID PRN 09/12/20 11/28/21 with perineal applicator (Proctosol HC) meclizine 25 mg tablet 25 mg PO Q8H PRN 09/12/20 11/28/21 metformin 500 mg tablet,extended 500 mg PO QPM 09/12/20 11/28/21 release 24 hr multivitamin 1 tab PO DAILY 09/12/20 11/28/21 pantoprazole 40 mg tablet,delayed 40 mg PO DAILY PRN 09/12/20 11/28/21 release potassium chloride 10 mEq 10 meq PO QAM 09/12/20 11/28/21 tablet,extended release spironolactone 25 mg tablet 12.5 mg PO 3XWK 09/12/20 11/28/21 torsemide 10 mg tablet 10 mg PO QAM 09/12/20 11/28/21 acetaminophen 650 mg 650 mg PO UD PRN 09/28/20 11/28/21 tablet,extended release (Tylenol 8 Hour) diclofenac sodium 2 % topical 1 packet TOPICAL UD PRN 09/28/20 11/28/21 solution in packet magnesium 200 mg tablet 600 mg PO DAILY 09/28/20 11/28/21 ondansetron HCl 4 mg tablet 4 mg PO Q8H PRN 09/28/20 11/28/21 polyethylene glycol 3350 17 gram 17 g PO QAM PRN 09/28/20 11/28/21 oral powder packet (Miralax) ferrous fumarate-vitamin C 200 mg 1 tab PO DAILY 03/01/21 11/28/21 (66 mg iron)-125 mg tablet folic acid 1 mg tablet 1 mg PO DAILY 03/01/21 11/28/21 benzonatate 100 mg capsule 100 mg PO TID PRN 11/08/21 11/28/21 oxycodone 10 mg tablet 10 mg PO Q6H PRN 11/08/21 11/28/21 oxycodone 20 mg tablet,crush 20 mg PO BID PRN 11/08/21 11/28/21 resistant,extended release 12 hr (OxyContin) mupirocin 2 % topical ointment 1 applic TOPICAL BID PRN 11/28/21 11/28/21 Previous Rx's Medication Instructions Recorded albuterol sulfate 90 mcg/actuation 2 inh INHALATION Q6H PRN #3 inhaler 11/11/20 aerosol inhaler nebulizers #1 ea 05/11/21 albuterol sulfate 2.5 mg INHALATION Q4H PRN #180 ml 09/27/21 carvedilol 3.125 mg tablet 9.375 mg PO BID #180 tab 11/20/21 diltiazem HCl 30 mg tablet 30 mg PO TID #90 tab 11/20/21 levothyroxine 125 mcg tablet 125 mcg PO DAILYBB #30 tab 11/20/21 (Synthroid) Results & Data (ED) Vital Signs Vital Signs - 24 hr 11/28/21 22:58 11/28/21 23:33 11/28/21 23:36 Temperature 37.7 C H Temperature Source Oral Pulse Rate 60 59 L Pulse Rate [Apical] 59 L Pulse Rhythm Regular Pulse Strength Normal Respiratory Rate 20 18 18 Respiratory Effort / Characteristics Non-Labored Short of Breath Short of Breath Respiratory Depth Normal Respiratory Pattern Regular Regular Blood Pressure 104/52 L Blood Pressure [Right Arm] 104/52 L Blood Pressure Mean 69 Blood Pressure Mean [Right Arm] 69 Blood Pressure Position Lying Blood Pressure Position [Right Arm] Sitting Pulse Oximetry 98 98 98 Oxygen Delivery Method Nasal Cannula Nasal Cannula Nasal Cannula Oxygen Flow Rate 6 6 6 Sepsis Recent Fever Within 48 Hours No Sepsis New/Unexplained Change in Mental Status No Sepsis Action Taken by Nursing No Action Required Oxygen Flow Rate - Titration 6 Pulse Oximetry Post Tiitration 98 Laboratory Data Result diagrams: 11/28/21 23:07 11/28/21 23:07 Lab Results 11/28/21 11/28/21 11/28/21 Range/Units 23:07 23:07 23:07 WBC 6.13 (4.8-10.8) K/uL RBC 3.38 L (4.2-5.4) M/uL Hgb 8.1 L (12.0-16.0) g/dL Hct 28.8 L (37-47) % MCV 85.2 (80-100) fL MCH 24.0 L (25-34) pg MCHC 28.1 L (32-36) g/dL RDW Std Deviation 54.1 H (36.4-46.3) fL RDW Coeff of [place] 17.3 H (11.5-14.5) % Plt Count 124 L (130-400) K/uL MPV 9.2 (7.4-10.4) fL Immature Gran % (Auto) 0.2 % Neut % (Auto) 75.8 % Lymph % (Auto) 11.6 % [place] % (Auto) 10.6 % Eos % (Auto) 1.6 % Baso % (Auto) 0.2 % Neut # (Auto) 4.65 (1.4-6.5) K/uL Lymph # (Auto) 0.71 L (1.2-3.4) K/uL [place] # (Auto) 0.65 H (0.11-0.59) K/uL Eos # (Auto) 0.10 (0-0.5) K/uL Baso # (Auto) 0.01 (0-0.2) K/uL Immature Gran # (Auto) 0.01 (0.00-0.02) K/uL PT 9.8 (9.0-12.0) Seconds INR 1.0 (0.9-1.1) APTT 25.2 (21.0-31.0) Seconds PTT Ratio 1.0 Sodium 135 L (136-145) mmol/L Potassium 4.0 (3.5-5.1) mmol/L Chloride 96 L (98-107) mmol/L Carbon Dioxide 32 (21-32) mmol/L Anion Gap 7 (3-11) BUN 18 (6-23) mg/dl Creatinine 1.24 H (0.6-1.2) mg/dl Est Cr Clr Drug Dosing Not Reportable Est GFR ( Amer) 49.6 ml/min Est GFR (Non-Af Amer) 42.8 ml/min BUN/Creatinine Ratio 14.5 (10-20) Glucose 171 H (70-99(Fasting)) mg/dl Calcium 8.6 (8.5-10.1) mg/dl Magnesium 1.6 L (1.7-2.4) mg/dl Total Bilirubin 0.6 (0.2-1.0) mg/dl AST 11 L (13-39) U/L ALT 17 (7-52) U/L Alkaline Phosphatase 65 (34-104) U/L Troponin I 0.05 H* (0-0.04) ng/ml Total Protein 6.5 (6.0-8.3) gm/dl Albumin 3.3 L (3.4-5.0) gm/dl Globulin 3.2 (2.5-4.0) gm/dl Albumin/Globulin Ratio 1.0 (0.9-2) Discharge Plan Visit Data Chief Complaint: Shortness of Breath/Dyspnea ED Provider: Massimo Pérez Discharge Problem: Hypoxia Forms Stand Alone Forms: My [facility] Prescriptions Prescriptions: No Action albuterol sulfate 90 mcg/actuation HFA aerosol inhaler 2 inh INHALATION Q6H PRN (Reason: SOB) Qty: 3 RF: 5 albuterol sulfate 2.5 mg /3 mL (0.083 %) solution for nebulization 2.5 mg inhalation Q4H PRN (Reason: sob) Qty: 180 RF: 5 (DME) nebulizers Misc See Rx Instructions miscellaneous .MEDSUPPLY Qty: 1 RF: 0 polyethylene glycol 3350 [Miralax] 17 gram Powder In Packet 17 g PO QAM PRN (Reason: Constipation) RF: 0 ondansetron HCl 4 mg Tablet 4 mg PO Q8H PRN (Reason: Nausea) RF: 0 acetaminophen [Tylenol 8 Hour] 650 mg Tablet Extended Release 650 mg PO UD PRN (Reason: Pain) RF: 0 magnesium 200 mg Tablet 600 mg PO DAILY RF: 0 diclofenac sodium 2 % Solution In Packet 1 packet TOPICAL UD PRN (Reason: Pain) RF: 0 multivitamin Tablet 1 tab PO DAILY RF: 0 dofetilide 250 mcg capsule 250 mcg PO BID RF: 0 torsemide 10 mg Tablet 10 mg PO QAM RF: 0 potassium chloride 10 mEq Tablet Extended Release 10 meq PO QAM RF: 0 spironolactone 25 mg Tablet 12.5 mg PO 3XWK RF: 0 hydrocortisone [Proctosol HC] 2.5 % Cream With Perineal Applicator 1 applic OH BID PRN (Reason: hemorrhoid) RF: 0 cyanocobalamin (vitamin B-12) 500 mcg Tablet 500 mcg PO DAILY RF: 0 meclizine 25 mg Tablet 25 mg PO Q8H PRN (Reason: dizziness) RF: 0 baclofen 10 mg Tablet 5 mg PO BID RF: 0 pantoprazole 40 mg Tablet,Delayed Release (Dr/Ec) 40 mg PO DAILY PRN (Reason: Abdominal Pain) RF: 0 Premarin 0.625 mg/gram Cream 0.625 mg VAGINAL 3XWK RF: 0 metformin 500 mg Tablet Extended Release 24 Hr 500 mg PO QPM RF: 0 cholecalciferol (vitamin D3) 25 mcg (1,000 unit) Capsule 25 mcg PO DAILY RF: 0 ferrous fumarate-vitamin C 200 mg (66 mg iron)-125 mg Tablet 1 tab PO DAILY RF: 0 folic acid 1 mg Tablet 1 mg PO DAILY RF: 0 benzonatate 100 mg capsule 100 mg PO TID PRN (Reason: Cough) RF: 0 oxycodone 10 mg tablet 10 mg PO Q6H PRN (Reason: Pain) RF: 0 oxycodone [OxyContin] 20 mg tablet,oral only,ext.rel.12 hr 20 mg PO BID PRN (Reason: Pain) RF: 0 carvedilol 3.125 mg Tablet 9.375 mg PO BID Qty: 180 RF: 0 diltiazem HCl 30 mg Tablet 30 mg PO TID Qty: 90 RF: 0 levothyroxine [Synthroid] 125 mcg Tablet 125 mcg PO DAILYBB Qty: 30 RF: 0 mupirocin 2 % ointment 1 applic topical BID PRN (Reason: FOR NASAL SORES) RF: 0 Referrals Referrals: Flex Barr MD [Primary Care Provider] -
[2021-11-28 23:47] LABS: Partial Thromboplastin Time 25.2 Seconds (21.0-31.0); Prothrombin Time 9.8 Seconds (9.0-12.0)
[2021-11-29 00:01] LABS: Alanine Aminotransferase 17 U/L (7-52); Albumin Level 3.3 gm/dl (3.4-5.0); Alkaline Phosphatase 65 U/L (34-104); Anion Gap 7 (3-11); Aspartate Aminotransferase 11 U/L (13-39); BUN Creatinine Ratio 14.5 (10-20); Bilirubin,Total 0.6 mg/dl (0.2-1.0); Blood Urea Nitrogen 18 mg/dl (6-23); Calcium 8.6 mg/dl (8.5-10.1); Carbon Dioxide 32 mmol/L (21-32); Chloride 96 mmol/L (98-107); Est GFR (African American) 49.6 ml/min; Est GFR (Non-African American) 42.8 ml/min; Globulin 3.2 gm/dl (2.5-4.0); Glucose 171 mg/dl (70-99(Fasting)); Magnesium 1.6 mg/dl (1.7-2.4); Sodium 135 mmol/L (136-145); Total Protein 6.5 gm/dl (6.0-8.3)
[2021-11-29 00:08] LABS: Troponin I 0.05 ng/ml (0-0.04)
[2021-11-29 00:46] LABS: Basophils # (auto) 0.01 K/uL (0-0.2); Basophils % (auto) 0.2 %; Eosinophils % (auto) 1.6 %; Hematocrit (blood only) 28.8 % (37-47); Hemoglobin 8.1 g/dL (12.0-16.0); Immature Granulocytes # (auto) 0.01 K/uL (0.00-0.02); Immature Granulocytes % (auto) 0.2 %; Lymphocytes # (auto) 0.71 K/uL (1.2-3.4); Lymphocytes % (auto) 11.6 %; Mean Corpuscular Hgb Conc 28.1 g/dL (32-36); Mean Corpuscular Volume 85.2 fL (80-100); Mean Platelet Volume 9.2 fL (7.4-10.4); Monocytes # (auto) 0.65 K/uL (0.11-0.59); Monocytes % (auto) 10.6 %; Neutrophils # (auto) 4.65 K/uL (1.4-6.5); Neutrophils % (auto) 75.8 %; Platelet Count 124 K/uL (130-400); RDW Coefficient of Variation 17.3 % (11.5-14.5); RDW Standard Deviation 54.1 fL (36.4-46.3); Red Blood Count 3.38 M/uL (4.2-5.4); White Blood Count 6.13 K/uL (4.8-10.8)
[2021-11-29] MEDS ORDERED: FUROSEMIDE 40 MG/4 ML VIAL IV ONE ×2 (03:40→04:22)
[2021-11-29] MEDS ORDERED: dexAMETHasone 8 MG in SYRINGE 0 ML IV ONE (04:07)
[2021-11-29] MEDS ORDERED: FUROSEMIDE INJ 20 MG/2 ML VIAL IV ONE (04:14)
[2021-11-29] MEDS ORDERED: NITROGLYCERIN SL 0.4 MG/TAB TAB SL PRN (04:42)
[2021-11-29] MEDS ORDERED: ONDANSETRON INJ 2 MG/ML 2 ML VIAL IV PRN (04:42)
[2021-11-29] MEDS ORDERED: ACETAMINOPHEN 325 MG TAB PO PRN (04:42)
[2021-11-29] MEDS ORDERED: PANTOprazole 40 MG TAB PO PRN (04:42)
[2021-11-29] MEDS ORDERED: POLYETHYLENE (MIRALAX) 17 GM PACK PO PRN (04:42)
[2021-11-29] MEDS ORDERED: BENZONATATE 100 MG CAPSULE PO PRN (04:42)
[2021-11-29] MEDS ORDERED: HYDROCORTISONE HC 2.5% CRM 30GM TUBE EXT PRN (04:42)
[2021-11-29] MEDS ORDERED: NON-FORMULARY MEDICATION (Acetaminophen [Tylenol 8 Hour] 650 mg Tablet Extended Release) PO PRN (04:42)
[2021-11-29] MEDS ORDERED: MECLIZINE HCL 25 MG TAB PO PRN (05:10)
[2021-11-29] MEDS: ENOXAPARIN INJ 40 MG/0.4 ML SYR SQ SCH ×2 (05:23→17:54)
[2021-11-29] MEDS: LEVOTHYROXINE SODIUM 125 MCG TABLET PO SCH (05:23)
[2021-11-29] MEDS ORDERED: CARBOHYDRATES FOR HYPOGLYCEMIA PO PRN (05:45)
[2021-11-29] MEDS ORDERED: GLUCAGON FOR INJ 1 MG VIAL IM PRN (05:45)
[2021-11-29] MEDS ORDERED: DEXTROSE 50% 50 ML SYRINGE IV PRN (05:45)
[2021-11-29] MEDS ORDERED: GLUCOSE 10 TABS/TUBE PO PRN (05:45)
[2021-11-29] MEDS ORDERED: GLUCOSE 40% GEL 15 GM TUBE PO PRN (05:45)
[2021-11-29] MEDS: CLINDAMYCIN 600 MG in DEXTROSE 5% 50 ML IV SCH ×3 (06:37→21:22)
--- NOTE | 2021-11-29 07:06 | XRay Report ---
XR chest 1V portable CLINICAL HISTORY: SOB. COMPARISON STUDY: 11/08/2021 TECHNIQUE: 1 view of the chest FINDINGS: Single frontal view of the chest demonstrates the heart to again be mildly enlarged. Compared to the previous examination, there has been partial interval resolution of patchy interstitial and alveolar opacities particularly involving the right midlung. No new alveolar opacities or air bronchograms are seen. There is no evidence for pleural effusion. There is no evidence for vascular congestion. There is no acute osseous pathology. IMPRESSION: Partial interval resolution of interstitial and alveolar opacities bilaterally. No new al veolar opacities are identified. ACT 112: Negative or not required by law. Electronically signed by: Nam Knight M.D. 11/29/2021 7:04 AM
--- NOTE | 2021-11-29 07:40 | CT Scan Report ---
CT chest diagnostic wo con CLINICAL HISTORY: Severe shortness of breath. Evaluate for pulmonary edema and alveolar opacities. COMPARISON STUDY: Portable chest from 11/28/2021 CT DOSE: 1461.34 mGy.cm TECHNIQUE: Standard CT of the Chest was performed without IV contrast. A dose lowering technique was utilized adhering to the principles of ALARA. FINDINGS: Airway: The airway is clear. No endobronchial lesion is identified. Lungs: Compared to the portable chest radiograph, patchy interstitial and alveolar opacities are pres ent bilaterally, right greater than left. No large confluent alveolar opacity or bronchograms are see n. The pulmonary vasculature are sharply defined with no evidence for vascular congestion or pulmonar y edema. Pleura: There is pleural thickening seen at the right lung base posteriorly with no definite pleural effusion. There is no evidence for pneumothorax. Mediastinum: There is no evidence for pathologic adenopathy on these limited noncontrast images. The heart size is within normal limits. There is prominent mitral annular calcification versus valve repa ir. The thoracic aorta is within normal limits. There is no evidence for pericardial effusion. Upper abdomen: The adrenal glands are normal bilaterally. Osseous structures: There is no acute osseous pathology. Degenerative changes are seen involving the spine and shoulders. IMPRESSION: 1. CT confirms patchy interstitial and alveolar opacities bilaterally most characteristic of a inflam matory process. Covid pneumonia should be excluded. 2. There is no evidence for interstitial edema or pulmonary edema. 3. Pleural thickening at the right lung base posteriorly with no definite effusion present. 4. Mitral annular calcification/valve replacement. ACT 112: Negative or not required by law. Electronically signed by: Nam Knight M.D. 11/29/2021 7:38 AM
[2021-11-29 07:41] LABS: Hematocrit (blood only) 26.8 % (37-47); Hemoglobin 7.4 g/dL (12.0-16.0); Mean Corpuscular Hemoglobin 23.6 pg (25-34); Mean Corpuscular Hgb Conc 27.6 g/dL (32-36); Mean Corpuscular Volume 85.6 fL (80-100); Mean Platelet Volume 9.2 fL (7.4-10.4); Platelet Count 110 K/uL (130-400); RDW Coefficient of Variation 17.5 % (11.5-14.5); Red Blood Count 3.13 M/uL (4.2-5.4); White Blood Count 5.91 K/uL (4.8-10.8)
[2021-11-29] MEDS: DOXYCYCLINE HYCLATE 100 MG in DEXTROSE 5% 100 ML IV SCH ×2 (07:44→19:14)
[2021-11-29 07:56] LABS: Eosinophils # (auto) 0.03 K/uL (0-0.5); Eosinophils % (auto) 0.5 %; Hypochromasia Present; Immature Granulocytes # (auto) 0.01 K/uL (0.00-0.02); Immature Granulocytes % (auto) 0.2 %; Lymphocytes # (auto) 0.31 K/uL (1.2-3.4); Lymphocytes % (auto) 5.2 %; Monocytes # (auto) 0.19 K/uL (0.11-0.59); Monocytes % (auto) 3.2 %; Neutrophils # (auto) 5.37 K/uL (1.4-6.5); Neutrophils % (auto) 90.9 %
[2021-11-29 07:57] LABS: Anion Gap 4 (3-11); BUN Creatinine Ratio 15.1 (10-20); Blood Urea Nitrogen 19 mg/dl (6-23); Calcium 8.2 mg/dl (8.5-10.1); Carbon Dioxide 34 mmol/L (21-32); Chloride 96 mmol/L (98-107); Creatinine Clr Calc Pharmacy 51.4 ml/min; Est GFR (African American) 48.6 ml/min; Est GFR (Non-African American) 41.9 ml/min; Glucose 188 mg/dl (70-99(Fasting)); Magnesium 1.6 mg/dl (1.7-2.4); Potassium 4.3 mmol/L (3.5-5.1); Sodium 134 mmol/L (136-145)
[2021-11-29 07:59] LABS: Troponin I < 0.03 ng/ml (0-0.04)
[2021-11-29] MEDS ORDERED: NON-FORMULARY MEDICATION (Ferrous Fumarate-Vitamin C 200 mg (66 mg iron)-125 mg Tablet) PO SCH (09:00)
[2021-11-29] MEDS: carvediloL 3.125 MG TAB PO SCH ×2 (09:00→20:09)
[2021-11-29] MEDS: SPIRONOLACTONE 12.5 MG TAB PO SCH (09:00)
[2021-11-29] MEDS: FOLIC ACID 1 MG TAB PO SCH (09:00)
[2021-11-29] MEDS: dilTIAZem HCL 30 MG TAB PO SCH ×3 (09:00→20:08)
[2021-11-29] MEDS: MULTIVITAMIN TAB PO SCH (09:00)
[2021-11-29] MEDS: DOFETILIDE 125 MCG CAPSULE PO SCH ×2 (09:00→20:07)
[2021-11-29] MEDS: CHOLECALCIFEROL 1,000 UNITS 25 MCG TAB PO SCH (09:00)
[2021-11-29] MEDS: TORSEMIDE 10 MG TAB PO SCH (09:01)
[2021-11-29] MEDS: POTASSIUM CHLORIDE 10 MEQ TABCR PO SCH (09:01)
[2021-11-29] MEDS: BACLOFEN 10 MG TAB PO SCH ×2 (09:01→20:06)
[2021-11-29] MEDS: CYANOCOBALAMIN (B-12) 500 MCG TABLET PO SCH (09:01)
[2021-11-29] MEDS: MAGNESIUM OXIDE 400 MG TAB PO SCH (09:02)
[2021-11-29] MEDS: PREMARIN VAG CRM 14 APPLN/30 GM TUBE PV SCH (09:02)
[2021-11-29] MEDS: dexAMETHasone 6 MG in SYRINGE 0 ML IV SCH (09:02)
--- NOTE | 2021-11-29 09:03 | Ultrasound Report ---
US venous doppler LE BI CLINICAL HISTORY: edema. pain. dvt? COMPARISON: None available at the time of this dictation. TECHNIQUE: Bilateral lower extremity real-time compression venous ultrasound with Color Doppler imagi ng. Utilizing real-time ultrasonic imaging multiple real time high-resolution ultrasonic images with comp ression and noncompression maneuvers of the deep venous system in addition to color doppler imaging w ere performed from the common femoral vein through the proximal calf veins. FINDINGS: Currently there is normal compressibility of the deep venous system from the common femoral vein thro ugh the proximal calf veins. No current evidence of acute thrombosis is identified. Of note, the calf veins were not well visualized due to patient body habitus. Impression: No evidence of deep venous thrombus. ACT 112: Negative or not required by law. Electronically signed by: Chris Nugent M.D. 11/29/2021 9:02 AM
[2021-11-29] MEDS: oxyCODONE HCL 20 MG TABCR (OxyCONTIN) PO SCH ×2 (09:23→20:30)
[2021-11-29] MEDS: MAGNESIUM SULFATE / D5W 1 GM/100 ML BAG IV SCH ×2 (09:33→11:38)
[2021-11-29 09:39] LABS: Estimated Average Glucose 180 mg/dl; Hemoglobin A1C 7.9 % (4.5-5.6)
[2021-11-29] MEDS: INSULIN ASPART PER UNIT SC SCH ×4 (10:21→20:44)
--- NOTE | 2021-11-29 10:29 | History and Physical Report ---
DATE OF ADMISSION: 11/29/2021. CHIEF COMPLAINT: Shortness of breath. HISTORY OF PRESENT ILLNESS: A 76-year-old female with past medical history significant for type 2 diabetes, hypothyroidism, hyperlipidemia, COPD, on chronic oxygen baseline 3 liters oxygen, sleep apnea not on CPAP as per the patient, paroxysmal atrial fibrillation, cor pulmonale, chronic essential hypertension, morbid obesity, irritable bowel syndrome, stage III chronic kidney disease, mixed stress and urge incontinence, chronic pain syndrome, history of TIA. Patient presents with shortness of breath. The patient was here in the hospital and was admitted on 11/08/2021 with COVID pneumonia, acute on chronic respiratory failure with hypoxia, at that time she was requiring 10L oxygen. She was out of the window for remdesivir and she was given dexamethasone 6 mg and was discharged on 11/20/2021 on her home oxygen. . For AFib she was on Coreg and Tikosyn per home regimen, her Xarelto, was stopped 9 months ago because of hematochezia. During hospitalization, she had some episodes of paroxysmal atrial fibrillation, Coreg was increased to 9.375 mg p.o. b.i.d. and Tikosyn was continued at discharge she was also placed on po cardizem.. She also showed ESBL in the urine. Infectious Disease was consulted. As she was asymptomatic, it was not treated. During hospitalization her chronic Matos was removed. She was recommended SNF but the patient went home and opted for home with home health. She was discharged in stable condition at baseline oxygen needs. The patient says since last couple of days, she was getting short of breath and cough bringing some whitish phlegm and some of it was yellow. She complained that when she was admitted to hospital last time, she was 266 pounds, at the time of discharge, she gained about 15 pounds and after going home, she is not able to put weight on her right leg and not able to ambulate even though Home health helped her. Her oxygen requireents increased Currently in ER she is requiring 6 liters of oxygen, baseline oxygen was 3 liters. She does have mild temperature spike. Chest x-ray showing pneumonia, multifocal. The patient denies any chest pain, denies any subjective fevers. No headache, no blurred visions, no runny nose, no sore throat. Appetite is okay. No nausea, no vomiting, no abdominal pain. Normal bowel and bladder movements. ALLERGIES: MULTIPLE DRUG ALLERGIES WITH ASPIRIN, IODINATED CONTRAST MEDIA, IPRATROPIUM, METAPROTERENOL, NSAID, PENICILLIN, SOTALOL, SULFA ANTIBIOTICS, SPIRIVA, ARFORMOTEROL, ASPARTAME, CIPROFLOXACIN, CLARITHROMYCIN, FISH-CONTAINING PRODUCTS, FISH DERIVED, LATEX, NICKEL, ACTOS, POVIDONE, SHELLFISH DERIVED, SUCRALOSE, ADHESIVES, ELIQUIS, BANANA, CHLORHEXIDINE, METAMUCIL, MEPERIDINE, METFORMIN, MORPHINE, NUCYNTA. PAST MEDICAL HISTORY: As mentioned above. PAST SURGICAL HISTORY: Colonoscopy, right knee meniscus repair, appendectomy, cataract surgery, cholecystectomy, total hysterectomy. MEDICATIONS: The patient is on Tylenol 650 mg p.o. p.r.n., albuterol 2.5 mg inhalation q. 4 hours p.r.n., baclofen 5 mg p.o. b.i.d., benzonatate 100 mg p.o. t.i.d. p.r.n., Coreg 9.375 mg p.o. b.i.d., vitamin D 25 mcg p.o. daily, vitamin B12 500 mcg p.o. daily, diclofenac sodium 1 topical p.r.n., diltiazem 30 mg p.o. t.i.d., dofetilide 250 mg p.o. b.i.d., ferrous sulfate 1 tablet p.o. daily, folic acid 1 mg p.o. daily, hydrocortisone topical application b.i.d. p.r.n., levothyroxine 125 mcg p.o. daily, magnesium 60 mg p.o. daily, meclizine 25 mg p.o. at bedtime p.r.n., metformin 500 mg p.o. a.m., multivitamin 1 tablet p.o. a.m., Zofran 4 mg p.o. q. 8 hours p.r.n., oxycodone 10 mg p.o. q. 6 hours p.r.n., OxyContin 20 mg p.o. b.i.d. p.r.n., Protonix 40 mg p.o. daily, MiraLax 17 mg p.o. a.m. p.r.n., potassium chloride 10 mEq p.o. daily, Premarin 0.625 mg vaginally 3 times a week, spironolactone 12.5 mg p.o. 3 times a week, terazosin 10 mg p.o. a.m. FAMILY HISTORY: Significant for father has eczema. Son has allergies. Father has asthma, lung cancer, mother has heart disorder, glaucoma, diabetes, brother has colon cancer, sister has squamous cell cancer. Sister has diabetes. SOCIAL HISTORY: No smoking. Alcohol daily. No drug use. REVIEW OF SYSTEMS: As per HPI. Rest of the review of systems is negative. PHYSICAL EXAMINATION: GENERAL: The patient is morbidly obese, not in acute distress. VITAL SIGNS: Temperature 37.7, T-max 37.7, pulse 61, respiratory rate 18, blood pressure 137/67, oximetry on room air 100% on 6 liters. HEENT: Pupils equal, round and reactive to light. Oral mucosa moist. NECK: No JVD, no neck masses. CARDIOVASCULAR: S1 and S2 heard. Regular rate and rhythm. No murmur, no gallop. RESPIRATORY SYSTEM: Normal AP diameter. No accessory muscle use. No wheezing, no crackles. ABDOMEN: Soft, bowel sounds present, nontender, no distention. CENTRAL NERVOUS SYSTEM: Cranial nerves II through XII are grossly intact, nonfocal. EXTREMITIES: Mild edema present. LABORATORY DATA: WBC 6.1, hemoglobin 8.1, hematocrit 28.8, platelets 124. PT 9.8, INR 1, APTT 25.2. Sodium 135, potassium 4, chloride 96, bicarbonate 32, BUN 18, creatinine 1.2, serum glucose 171, calcium 8.6, magnesium 1.6, total bilirubin 0.6, AST is 11, ALT 17, alkaline phosphatase 65. Troponin-I 0.05. SARS-CoV-2 positive. IMAGING DATA: CT of the chest, preliminary report shows diffuse multifocal airspace and ground-glass opacities in the lungs with interlobar septal thickening. Findings may be infectious in etiology. Pulmonary edema also possible and small right pleural effusions. Sequelia of COVID-19 pneumonia, not entirely excluded, dependent airspace disease, which may relate to atelectatic changes. EKG: Undetermined rhythm at a rate of 93. Prolonged QTc ASSESSMENT AND PLAN: This 76-year-old female recently hospitalized with COVID pneumonia, who presents with shortness of breath. 1. Shortness of breath, acute on chronic respiratory failure, baseline oxygen is 3 liters, currently requiring [address] chest preliminary report showing possible pneumonia versus possible sequelae of COVID versus pulmonary edema, possible acute on chronic diastolic congestive heart failure, . The patient has multiple drug allergies, placed on IV doxycycline and clindamycin.. We will continue home spironolactone, torsemide. We will give one dose of IV Lasix 20 mg. Follow the response. Follow the echocardiogram. Consult pulmonary for possible reinfection with COVID. We will continue with IV Decadron 6 mg daily for now. Closely monitor in the tele floor, closely monitor for the response.Cardio consult. 2. Mild elevation of troponin, mostly demand ischemia follow serial enzymes. Follow echocardiogram. 3. Chronic kidney disease stage III, creatinine 1.2, seems to be baseline. We will follow the labs. 4. Hypomagnesia, we will replace. 5. History of sleep apnea, on oxygen in the nighttime. 6. History of diabetes: Holding home p.o. medication, placing on insulin sliding scale with blood sugars. 7. Hypothyroidism on Synthroid. 8. History of atrial fibrillation, on Cardizem, Tikosyn and Coreg. Last admission Cardizem was added and Coreg dose was adjusted. Not on anticoagulation. Xarelto was stopped because of history of hematochezia. We will monitor. 9. Lower extremity pain. We will follow the Doppler. 10. History of chronic obstructive pulmonary disease. Continue home inhalers. We will place on nebs around the clock and p.r.n. 11. Chronic pain. Continue home pain medications. 12. Deep venous thrombosis prophylaxis: Placed on Lovenox. 13. Thrombocytopenia, platelets of 124, seems to be new. We will follow the repeat labs, could be from ongoing infection. 14 Anemia of chronic disease. Hemoglobin 8.1. Seems to be at baseline. Hemoccult. We will follow the labs. DISPOSITION: Closely monitor in tele floor. Level 1 full code. PT/OT prior to discharge. Social service to help with discharge planning. Job ID: [id number] MTDD
--- NOTE | 2021-11-29 19:20 | Hospitalist Progress Note ---
Date of Service November 29, 2021 Assessment & Plan (1) Acute on chronic respiratory failure with hypoxia: Plan: 76-year-old female w/ PMH of type 2 diabetes, hypothyroidism, hyperlipidemia, COPD, on chronic oxygen baseline 3 liters oxygen, sleep apnea not on CPAP as per the patient, paroxysmal atrial fibrillation, cor pulmonale, chronic essential hypertension, morbid obesity, irritable bowel syndrome, stage III chronic kidney disease, mixed stress and urge incontinence, chronic pain syndrome, TIA.Pt presented 11/28 with c/o SOB. Of note, patient was admitted in October with Covid pneumonia with acute on chronic respiratory failure with hypoxia at that time requiring up to 10 L oxygen. She was discharged on 11/20 on her home oxygen. She is being managed for the following: #. Acute on chronic respiratory failure likely 2/2 ongoing COVID infection #. REcent COVID infection - see above Baseline oxygen is 3 L at rest and 4 L with activity Patient requiring 6 L oxygen at presentation. Per recent hospitalization see above. Admitting CXR: Partial interval resolution of interstitial and alveolar opacities bilaterally. No new alveolar opacities. Admitting CT chest: Patchy interstitial and alveolar opacities bilaterally most characteristic of an inflammatory process. No evidence of interstitial edema or pulmonary edema. US venous Doppler left: No evidence of DVT. Could be long Covid, patient started on dexamethasone 11/29, no concerns of bacterial infection given normal WBC and afebrile, patient started on clindamycin and doxycycline [patient has multiple drug allergies], await procalcitonin and CBC tomorrow, likely DC antibiotic tomorrow. Discussed with pulmonology over the phone, does not think reinfection of Covid, will call pulm if needed. #. Mild elevation of troponin #. CHF - f/u BNP Troponin elevated at 0.25, following trends negative. Likely demand ischemia. EKG reviewed, no acute ST or T changes. QTC prolonged at 517. 11/29 echo reviewed: Ejection fraction greater than 70%, hyperdynamic left ve ntricle with normal left ventricle size and normal left ventricular wall thickness. Continue with home cardiac medications including spironolactone and torsemide 3. Chronic kidney disease stage III, creatinine 1.2, seems to be baseline. We will follow the labs. 4. Hypomagnesia, monitor and replete. 5. History of sleep apnea, on oxygen in the nighttime. 6. History of diabetes: Holding home p.o. medication, continue with insulin sliding scale with blood sugars. 7. Hypothyroidism on Synthroid. 8. History of atrial fibrillation, on Cardizem, Tikosyn and Coreg. Last admission Cardizem was added and Coreg dose was adjusted. Not on anticoagulation. Xarelto was stopped because of history of hematochezia. We will monitor. 9. Lower extremity pain.US Doppler negative for DVT.. 10. History of chronic obstructive pulmonary disease. Continue home inhalers.Continue with nebs around the clock and p.r.n. 11. Chronic pain. Continue home pain medications. 12. Deep venous thrombosis prophylaxis: Placed on Lovenox. 13. Thrombocytopenia, platelets of 124, seems to be new. We will follow the repeat labs, could be from ongoing infection. 14 Anemia of chronic disease. Hemoglobin 8.1. Seems to be at baseline. Hemoccult. We will follow the labs. DISPOSITION: Closely monitor in tele floor. Level 1 full code. PT/OT prior to discharge. Social service to help with discharge planning. Admission and Anticipated Discharge Date Admission Date: November 29, 2021 Subjective Patient was lying in bed, on 6 L nasal cannula oxygen, NAD, reports eating and moving bowels okay. Patient complains of cough with light yellow sputum. Patient denies any fever/chills/chest pain/palpitations/belly pain/other review of symptoms. Physical Exam Physical Exam: GENERAL: Alert and oriented x3. NAD, on 6L. HEENT: No pallor, no icterus. Pupils equal, round and reactive to light. Oral mucosa moist. NECK: No JVD, no neck masses. HEART: S1 and S2 heard. Regular rate and rhythm. No murmur, no gallop. RESPIRATORY SYSTEM: Normal AP diameter. No accessory muscle use. No wheezing, crackles diffuse and bilateral. ABDOMEN: Soft, bowel sounds present, nontender, no distention. CENTRAL NERVOUS SYSTEM: No facial droop. Speech is clear. Obeys simple commands. Moves extremities. EXTREMITIES: Trace BLE edema, no erythema seen. Urinary catheter with light yellow urine collection noted. Results & Data Results & Data ([facility]) Vital Signs (Past 12 Hours) Vital Signs Temp Pulse Pulse Resp BP Pulse Ox 11/29/21 16:27 36.4 C L 57 L 18 100/58 L 96 11/29/21 15:41 55 L 11/29/21 11:50 36.8 C 60 18 95/54 L 95 11/29/21 07:52 65 11/29/21 07:40 37.2 C 70 18 115/73 98
[2021-11-30] MEDS: ALBUTEROL 0.083% NEBU SOLN 3 ML VIAL INH PRN ×2 (03:29→11:37)
[2021-11-30] MEDS: LEVOTHYROXINE SODIUM 125 MCG TABLET PO SCH (05:57)
[2021-11-30] MEDS: ENOXAPARIN INJ 40 MG/0.4 ML SYR SQ SCH (05:57)
[2021-11-30] MEDS: CLINDAMYCIN 600 MG in DEXTROSE 5% 50 ML IV SCH ×3 (06:43→22:49)
[2021-11-30 08:03] LABS: Hematocrit (blood only) 24.6 % (37-47); Hemoglobin 7.1 g/dL (12.0-16.0); Mean Corpuscular Hemoglobin 24.2 pg (25-34); Mean Corpuscular Hgb Conc 28.9 g/dL (32-36); Mean Platelet Volume 9.7 fL (7.4-10.4); Platelet Count 136 K/uL (130-400); RDW Coefficient of Variation 17.8 % (11.5-14.5); RDW Standard Deviation 54.8 fL (36.4-46.3); Red Blood Count 2.93 M/uL (4.2-5.4)
[2021-11-30] MEDS: dexAMETHasone 6 MG in SYRINGE 0 ML IV SCH (08:11)
[2021-11-30] MEDS: carvediloL 3.125 MG TAB PO SCH ×2 (08:12→20:45)
[2021-11-30] MEDS: TORSEMIDE 10 MG TAB PO SCH (08:12)
[2021-11-30] MEDS: dilTIAZem HCL 30 MG TAB PO SCH ×2 (08:12→13:44)
[2021-11-30] MEDS: CHOLECALCIFEROL 1,000 UNITS 25 MCG TAB PO SCH (08:12)
[2021-11-30] MEDS: POTASSIUM CHLORIDE 10 MEQ TABCR PO SCH (08:13)
[2021-11-30] MEDS: MAGNESIUM OXIDE 400 MG TAB PO SCH (08:13)
[2021-11-30] MEDS: FOLIC ACID 1 MG TAB PO SCH (08:13)
[2021-11-30] MEDS: MULTIVITAMIN TAB PO SCH (08:14)
[2021-11-30] MEDS: BACLOFEN 10 MG TAB PO SCH ×2 (08:14→20:48)
[2021-11-30] MEDS: DOFETILIDE 125 MCG CAPSULE PO SCH ×2 (08:14→20:45)
[2021-11-30] MEDS: CYANOCOBALAMIN (B-12) 500 MCG TABLET PO SCH (08:14)
[2021-11-30] MEDS: oxyCODONE HCL 20 MG TABCR (OxyCONTIN) PO SCH ×2 (08:23→20:46)
[2021-11-30] MEDS: DOXYCYCLINE HYCLATE 100 MG in DEXTROSE 5% 100 ML IV SCH ×2 (08:24→20:47)
[2021-11-30 08:42] LABS: BUN Creatinine Ratio 15.8 (10-20); Calcium 7.9 mg/dl (8.5-10.1); Creatinine Clr Calc Pharmacy 42.7 ml/min; Est GFR (African American) 38.7 ml/min; Est GFR (Non-African American) 33.4 ml/min; Potassium 4.2 mmol/L (3.5-5.1)
[2021-11-30] MEDS: INSULIN ASPART PER UNIT SC SCH ×4 (09:14→21:51)
[2021-11-30] MEDS: PANTOprazole 40 MG in SYRINGE 0 ML IV SCH ×2 (09:40→20:46)
[2021-11-30] MEDS: POLYETHYLENE (MIRALAX) 17 GM PACK PO PRN (09:44)
[2021-11-30] MEDS ORDERED: PHARMACY GLYCEMIC MGMT CONSULT PRN (11:38)
[2021-11-30] MEDS ORDERED: INSULIN HUMAN NPH SC SCH (11:45)
--- NOTE | 2021-11-30 14:59 | Pharmacy Report ---
Pharmacy Glycemic Short Note 2 - Date of Service November 30, 2021 - Glycemic Short BSG Results (Last 24 hours): 11/29/21 11/29/21 11/29/21 16:45 20:04 20:05 Glucose POC Glucose 242 H 318 H* 312 H* 11/30/21 11/30/21 11/30/21 03:44 07:02 07:26 Glucose 210 H POC Glucose 241 H 225 H 11/30/21 11/30/21 11/30/21 11:29 11:30 13:22 Glucose POC Glucose 465 H* 424 H* 370 H* OUTPATIENT ANTIDIABETIC REGIMEN: * Metformin 500mg PO HS * A1c 7.9% 11/29/21 ASSESSMENT: * 76 year old female known to pharmacy glycemic service from admission last month, with hyperglycemia d/t IV steroids and only on correctional insulin * Start NPH with Dexamethasone, begin now, tighten CF and add CR * PMH significant for morbid obesity, T2DM, COPD on O2, Hypothyroid, CKD III, IBS PLAN FOR INPATIENT GLYCEMIC CONTROL: * Hold outpatient oral diabetes medications * Basal insulin * NPH 20 units SQ daily with IV Dexamethasone, start now * Bolus insulin * NovoLog per scale ACHS or Q6hrs while NPO * Goal Range: Low 110 mg/dL - High 140 mg/dL * Correction Factor: 15 mg/dL/unit * Nutritional / Prandial insulin per carb ratio of 1 unit per 5 grams CHO consumed
[2021-11-30 15:43] LABS: Hematocrit (blood only) 26.3 % (37-47); Hemoglobin 7.6 g/dL (12.0-16.0)
--- NOTE | 2021-11-30 16:36 | Cardiology Consultation ---
Date of Consultation November 30, 2021 Assessment & Plan (1) Hypoxia: (2) Noncompliance: (3) COPD (chronic obstructive pulmonary disease): (4) Paroxysmal atrial fibrillation: (5) DM type 2 (diabetes mellitus, type 2): (6) Cor pulmonale, chronic: (7) CKD (chronic kidney disease), stage III: (8) Chronic diastolic CHF (congestive heart failure): (9) Pneumonia due to COVID-19 virus: The patient is clinically stable and seems to be getting better as compared to when she was admitted. I tried to explain to her that she had been on the diltiazem for 4 weeks without sequela but she insists that it makes her tired so we will stop it today and see how she does on telemetry. Otherwise I have no additional suggestions. History of Present Illness Attending Physician: Chris Mcnally MD History of Present Illness This is a 76-year-old female with the medical problems as listed below. She was here at the beginning of November with Covid. Eventually she was well enough to be discharged to and an SNL but refused and wanted to go home with home health. She returned with weakness and progressive hypoxia. She had gained quite a bit of weight after returning home most likely fluid overload. She also was having atrial fibrillation however, in the past 24 to 48 hours she has returned to normal sinus rhythm. Her biggest complaint today is related to diltiazem which she states makes her weak. Past medical history: 1.Symptomatic paroxysmal atrial fibrillation, on Tikosyn not on anticoagulation due to past bleeding issues 2.Severe chronic obstructive lung disease, asthmatic lung disease, O2 dependent 3-4 L 3.Sleep apnea, CPAP intolerant. 4.Type 2 diabetes mellitus. 5.Chronic sinus tachycardia. 6.Stage III chronic kidney disease 7.History of past pancreatitis 8.Dyslipidemia. 9.Hypothyroidism 10.Chronic diastolic CHF, NYHA class 3 Allergies Allergy/AdvReac Type Severity Reaction Status Date / Time aspirin Allergy Severe HIVES, SOB Verified 11/28/21 23:31 Iodinated Contrast Media Allergy Severe "CAUSED Verified 11/28/21 23:31 ASTHMA ATTACK" & HIVES ipratropium Allergy Severe SHORTNESS Verified 11/28/21 23:31 OF BREATH metaproterenol [From Alupent] Allergy Severe EYES AND Verified 11/28/21 23:31 FACE SWELLING, SEVERE WHEEZING NSAIDS (Non-Steroidal Allergy Severe Hives Verified 11/28/21 23:31 Anti-Inflamma Penicillins Allergy Severe SOB, HIVES Verified 11/28/21 23:31 sotalol Allergy Severe increased Verified 11/28/21 23:31 breathing problems Sulfa (Sulfonamide Allergy Severe Anaphylaxis Verified 11/28/21 23:31 Antibiotics) tiotropium Allergy Severe SYMPTOMS Verified 11/28/21 23:31 [From Spiriva with [employer]] INSTEAD OF BETTER WITH BREATHING arformoterol Allergy Intermediate TACHYCARDIA Verified 11/28/21 23:31 aspartame Allergy Intermediate HIVES, Verified 11/28/21 23:31 ITCHY ciprofloxacin Allergy Intermediate WHEEZING, Verified 11/28/21 23:31 NAUSEA clarithromycin [From Biaxin] Allergy Intermediate Unknown, ? Verified 11/28/21 23:31 WHEEZING , OR NAUSEA ? Fish Containing Products Allergy Intermediate BODY CAN'T Verified 11/28/21 23:31 ABSORB fish derived Allergy Intermediate Unknown Verified 11/28/21 23:31 latex Allergy Intermediate ITCHY/RASH Verified 11/28/21 23:31 nickel Allergy Intermediate RASH & Verified 11/28/21 23:31 BLISTERS pioglitazone [From Actos] Allergy Intermediate RETAINED Verified 11/28/21 23:31 FLUID povidone Allergy Intermediate BLISTER Verified 11/28/21 23:31 WITH TAPE shellfish derived Allergy Intermediate BODY CAN'T Verified 11/28/21 23:31 ABSORB, "SMELL LIKE A FISH" stevioside [From Stevia] Allergy Intermediate Wheezing Verified 11/28/21 23:31 sucralose Allergy Intermediate Wheezing Verified 11/28/21 23:31 [From Splenda (sucralose)] adhesive Allergy Mild BLISTERS Verified 11/28/21 23:31 WITH TAPE apixaban [From Eliquis] Allergy Mild SEE NOTES Verified 11/28/21 23:31 BELOW banana Allergy Mild "FEELS Verified 11/28/21 23:31 LIKE PEACH FUZZ IN MOUTH" chlorhexidine Allergy Mild BLISTERY Verified 11/28/21 23:31 RASH psyllium [From Metamucil] AdvReac Intermediate bloating Verified 11/28/21 23:31 meperidine AdvReac Mild Gastrointestinal Verified 11/28/21 23:31 Upset, N/V metformin [From Riomet] AdvReac Mild DIARRHEA Verified 11/28/21 23:31 WITH MORE THAN 1 A DAY morphine AdvReac Mild Gastrointestinal Verified 11/28/21 23:31 Upset,N/V tapentadol [From Nucynta] AdvReac Mild Nausea and Verified 11/28/21 23:31 vomiting Home Medications Medication Instructions Recorded Confirmed Type baclofen 10 mg tablet 5 mg PO BID 09/12/20 11/28/21 History cholecalciferol (vitamin D3) 25 25 mcg PO DAILY 09/12/20 11/28/21 History mcg (1,000 unit) capsule conjugated estrogens 0.625 mg/gram 0.625 mg VAGINAL 3XWK 09/12/20 11/28/21 History vaginal cream (Premarin) cyanocobalamin (vitamin B-12) 500 500 mcg PO DAILY 09/12/20 11/28/21 History mcg tablet dofetilide 250 mcg capsule 250 mcg PO BID 09/12/20 11/28/21 History hydrocortisone 2.5 % topical cream 1 applic WI BID PRN 09/12/20 11/28/21 History with perineal applicator (Proctosol HC) meclizine 25 mg tablet 25 mg PO Q8H PRN 09/12/20 11/28/21 History metformin 500 mg tablet,extended 500 mg PO QPM 09/12/20 11/28/21 History release 24 hr multivitamin 1 tab PO DAILY 09/12/20 11/28/21 History pantoprazole 40 mg tablet,delayed 40 mg PO DAILY PRN 09/12/20 11/28/21 History release potassium chloride 10 mEq 10 meq PO QAM 09/12/20 11/28/21 History tablet,extended release spironolactone 25 mg tablet 12.5 mg PO 3XWK 09/12/20 11/28/21 History torsemide 10 mg tablet 10 mg PO QAM 09/12/20 11/28/21 History acetaminophen 650 mg 650 mg PO UD PRN 09/28/20 11/28/21 History tablet,extended release (Tylenol 8 Hour) diclofenac sodium 2 % topical 1 packet TOPICAL UD PRN 09/28/20 11/28/21 History solution in packet magnesium 200 mg tablet 600 mg PO DAILY 09/28/20 11/28/21 History ondansetron HCl 4 mg tablet 4 mg PO Q8H PRN 09/28/20 11/28/21 History polyethylene glycol 3350 17 gram 17 g PO QAM PRN 09/28/20 11/28/21 History oral powder packet (Miralax) albuterol sulfate 90 mcg/actuation 2 inh INHALATION Q6H PRN #3 inhaler 11/11/20 11/28/21 Rx aerosol inhaler ferrous fumarate-vitamin C 200 mg 1 tab PO DAILY 03/01/21 11/28/21 History (66 mg iron)-125 mg tablet folic acid 1 mg tablet 1 mg PO DAILY 03/01/21 11/28/21 History nebulizers #1 ea 05/11/21 11/08/21 Rx albuterol sulfate 2.5 mg INHALATION Q4H PRN #180 ml 09/27/21 11/28/21 Rx benzonatate 100 mg capsule 100 mg PO TID PRN 11/08/21 11/28/21 History oxycodone 10 mg tablet 10 mg PO Q6H PRN 11/08/21 11/28/21 History oxycodone 20 mg tablet,crush 20 mg PO BID PRN 11/08/21 11/28/21 History resistant,extended release 12 hr (OxyContin) carvedilol 3.125 mg tablet 9.375 mg PO BID #180 tab 11/20/21 11/28/21 Rx diltiazem HCl 30 mg tablet 30 mg PO TID #90 tab 11/20/21 11/28/21 Rx levothyroxine 125 mcg tablet 125 mcg PO DAILYBB #30 tab 11/20/21 11/28/21 Rx (Synthroid) mupirocin 2 % topical ointment 1 applic TOPICAL BID PRN 11/28/21 11/28/21 History Patient History Medical History Asthma USED RESCUE INHALER LAST WEEKEND Back problem 3 DISCS PUSHING ON SCIATIC NERVE PER PT>CAUSES R LEG NUMBNESS AT TIMES LYING FLAT FOR EXTENDED TIME WILL CAUSE LEGS TO JUMP Chronic anticoagulation Chronic diastolic CHF (congestive heart failure) Chronic low blood pressure Chronic respiratory failure with hypoxia CKD (chronic kidney disease), stage III COPD (chronic obstructive pulmonary disease) Cor pulmonale, chronic DM type 2 (diabetes mellitus, type 2) Dyslipidemia History of Meniere's disease History of TIA (transient ischemic attack) ? NEVER CONFIRMED (PT DOES NOT THINK SHE HAD TIA) Hx of vertigo Hypothyroidism Impingement syndrome of both shoulders ZEYAD (obstructive sleep apnea) WEARS 3-4L CONT. Osteoarthritis Oxygen dependent 3-4L CONT. 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 All other 10 point review of systems are negative. Physical Exam Physical Exam: General: no acute distress and stated age Head: normocephalic, no masses, lesions, tenderness or abnormalities Eyes: conjunctiva are pink and non-injected, sclera clear Neck: supple, no adenopathy, no bruits, normal jugular venous pulse, no hepatojugular reflux Chest: normal shape and normal respiratory effort Lungs: clear to auscultation and percussion Cardiac Exam: - regular rate & rhythm, no murmurs gallops or rubs - normal S1, normal S2 Pulses: 2(+) throughout Abdomen: abdomen soft, non-tender, no abnormal masses and no hepatosplenomegaly Musculoskeletal: no gait disturbance, no joint inflammation, no deforming arthritis Extremities: no edema and no cyanosis Neuro: grossly normal exam Results & Data ([facility]) Vital Signs (Past 12 Hours) Vital Signs Temp Pulse Pulse Resp BP Pulse Ox 11/30/21 15:37 58 L 11/30/21 11:49 36.5 C 56 L 22 107/56 L 97 11/30/21 11:37 87 20 96 11/30/21 09:49 64 11/30/21 07:16 36.5 C 66 16 103/52 L 96 Laboratory Results Laboratory Results - last 24 hr 11/29/21 11/29/21 11/29/21 07:24 16:45 18:48 WBC RBC Hgb Hct MCV MCH MCHC RDW Std Deviation RDW Coeff of Lawrence Plt Count MPV Sodium Potassium Chloride Carbon Dioxide Anion Gap BUN Creatinine Est Cr Clr Drug Dosing Est GFR ( Amer) Est GFR (Non-Af Amer) BUN/Creatinine Ratio Glucose POC Glucose 242 H Calcium Troponin I < 0.03 B-Natriuretic Peptide Procalcitonin < 0.05 11/29/21 11/29/21 11/29/21 19:49 20:04 20:05 WBC RBC Hgb Hct MCV MCH MCHC RDW Std Deviation RDW Coeff of Lawrence Plt Count MPV Sodium Potassium Chloride Carbon Dioxide Anion Gap BUN Creatinine Est Cr Clr Drug Dosing Est GFR ( Amer) Est GFR (Non-Af Amer) BUN/Creatinine Ratio Glucose POC Glucose 318 H* 312 H* Calcium Troponin I B-Natriuretic Peptide 252 H Procalcitonin 11/30/21 11/30/21 11/30/21 03:44 07:02 07:02 WBC 5.20 RBC 2.93 L Hgb 7.1 L Hct 24.6 L MCV 84.0 MCH 24.2 L MCHC 28.9 L RDW Std Deviation 54.8 H RDW Coeff of Lawrence 17.8 H Plt Count 136 MPV 9.7 Sodium 132 L Potassium 4.2 Chloride 94 L Carbon Dioxide 34 H Anion Gap 4 BUN 24 H Creatinine 1.52 H Est Cr Clr Drug Dosing 42.7 Est GFR ( Amer) 38.7 Est GFR (Non-Af Amer) 33.4 BUN/Creatinine Ratio 15.8 Glucose 210 H POC Glucose 241 H Calcium 7.9 L Troponin I B-Natriuretic Peptide Procalcitonin 11/30/21 11/30/21 11/30/21 07:26 11:29 11:30 WBC RBC Hgb Hct MCV MCH MCHC RDW Std Deviation RDW Coeff of Lawrence Plt Count MPV Sodium Potassium Chloride Carbon Dioxide Anion Gap BUN Creatinine Est Cr Clr Drug Dosing Est GFR ( Amer) Est GFR (Non-Af Amer) BUN/Creatinine Ratio Glucose POC Glucose 225 H 465 H* 424 H* Calcium Troponin I B-Natriuretic Peptide Procalcitonin 11/30/21 11/30/21 11/30/21 13:22 14:57 15:02 WBC RBC Hgb 7.6 L Hct 26.3 L MCV MCH MCHC RDW Std Deviation RDW Coeff of Lawrence Plt Count MPV Sodium Potassium Chloride Carbon Dioxide Anion Gap BUN Creatinine Est Cr Clr Drug Dosing Est GFR ( Amer) Est GFR (Non-Af Amer) BUN/Creatinine Ratio Glucose POC Glucose 370 H* 160 H Calcium Troponin I B-Natriuretic Peptide Procalcitonin Medications Administered Current Inpatient Medications Acetaminophen (Acetaminophen 325 Mg Tab) 650 mg PO Q4H PRN PRN Reason: Pain or Fever Stop: 12/29/21 04:41 Albuterol (Albuterol 0.083% Nebu Soln 3 Ml Vial) 2.5 mg INH Q4H PRN; Protocol PRN Reason: sob Stop: 12/29/21 04:41 Last Admin: 11/30/21 11:37 Dose: 2.5 mg Documented by: Albuterol (Albuterol Hfa 8 Gm Inhaler) 2 puffs INH Q6H PRN PRN Reason: Shortness Of Breath Stop: 12/29/21 04:41 Baclofen (Baclofen 10 Mg Tab) 5 mg PO BID YELITZA Stop: 12/29/21 08:59 Last Admin: 11/30/21 08:14 Dose: 5 mg Documented by: Benzonatate (Benzonatate 100 Mg Capsule) 100 mg PO TID PRN PRN Reason: Cough Stop: 12/29/21 04:41 Carvedilol (Carvedilol 3.125 Mg Tab) 9.375 mg PO BID YELITZA Stop: 12/29/21 08:59 Last Admin: 11/30/21 08:12 Dose: 9.375 mg Documented by: Cyanocobalamin (Cyanocobalamin 500 Mcg Tablet (Vitamin B-12)) 500 mcg PO DAILY YELITZA Stop: 12/29/21 08:59 Last Admin: 11/30/21 08:14 Dose: 500 mcg Documented by: Dextrose (Dextrose 50% 50 Ml Syringe) 25 - 50 ml IV UD PRN; Protocol PRN Reason: Hypoglycemia Protocol Stop: 12/29/21 05:44 Diltiazem HCl (Diltiazem Hcl 30 Mg Tab) 30 mg PO TID YELITZA Stop: 12/29/21 08:59 Last Admin: 11/30/21 13:44 Dose: Not Given Documented by: Dofetilide (Dofetilide 125 Mcg Capsule) 250 mcg PO BID YELITZA Stop: 12/29/21 08:59 Last Admin: 11/30/21 08:14 Dose: 250 mcg Documented by: Enoxaparin Sodium (Enoxaparin Inj 40 Mg/0.4 Ml Syr) 40 mg SQ Q12H YELITZA Stop: 12/29/21 05:59 Last Admin: 11/30/21 05:57 Dose: 40 mg Documented by: Estrogens Conjugated (Premarin Vag Crm 14 Appln/30 Gm Tube) 1 appln PV MoWeFr [facility] Stop: 12/29/21 08:59 Last Admin: 11/29/21 09:02 Dose: 1 appln Documented by: Folic Acid (Folic Acid 1 Mg Tab) 1 mg PO DAILY YELITZA Stop: 12/29/21 08:59 Last Admin: 11/30/21 08:13 Dose: 1 mg Documented by: Glucagon (Glucagon For Inj 1 Mg Vial) 1 mg IM UD PRN; Protocol PRN Reason: Hypoglycemia Protocol Stop: 12/29/21 05:44 Glucose (Glucose 40% Gel 15 Gm Tube) 15 - 30 gm PO UD PRN; Protocol PRN Reason: Hypoglycemia Protocol Stop: 12/29/21 05:44 Glucose (Glucose 10 Tabs/Tube) 4 - 8 tabs PO UD PRN; Protocol PRN Reason: Hypoglycemia Protocol Stop: 12/29/21 05:44 Hydrocortisone (Hydrocortisone Hc 2.5% Crm 30gm Tube) 1 appln EXT BID PRN PRN Reason: hemorrhoid Stop: 12/29/21 04:41 Last Admin: 11/30/21 08:11 Dose: 1 appln Documented by: Dexamethasone 6 mg/ Syringe 1.5 mls @ 1 mls/min IV DAILY YELITZA Stop: 12/09/21 08:59 Last Admin: 11/30/21 08:11 Dose: 1 mls/min Documented by: Doxycycline Hyclate 100 mg/ (Dextrose) 110 mls @ 50 mls/hr IV Q12H [facility] Stop: 12/06/21 07:59 Last Infusion: 11/30/21 10:39 Dose: Infused Documented by: Clindamycin Phosphate 600 mg/ (Dextrose) 54 mls @ 100 mls/hr IV Q8H [facility] Stop: 12/06/21 05:59 Last Infusion: 11/30/21 15:48 Dose: Infused Documented by: Pantoprazole Sodium 40 mg/ (Syringe) 10 mls @ 5 mls/min IV BID [facility] Stop: 12/30/21 08:59 Last Admin: 11/30/21 09:40 Dose: 5 mls/min Documented by: Insulin Aspart (Insulin Aspart Per Unit) 0 units SC ACHS [facility] Stop: 12/29/21 07:29 Last Admin: 11/30/21 12:46 Dose: 25 units Documented by: Insulin Human NPH (Insulin Human Nph) 20 units SC DAILY [facility]; Protocol Stop: 12/30/21 11:44 Last Admin: 11/30/21 12:47 Dose: 20 units Documented by: Levothyroxine Sodium (Levothyroxine Sodium 125 Mcg Tablet) 125 mcg PO DAILYBB [facility] Stop: 12/29/21 06:29 Last Admin: 11/30/21 05:57 Dose: 125 mcg Documented by: Magnesium Oxide (Magnesium Oxide 400 Mg Tab) 400 mg PO DAILY [facility] Stop: 12/29/21 08:59 Last Admin: 11/30/21 08:13 Dose: 400 mg Documented by: Meclizine HCl (Meclizine Hcl 25 Mg Tab) 25 mg PO Q8H PRN PRN Reason: dizziness Stop: 12/29/21 05:09 Miscellaneous (Diclofenac~Order Awaiting Action) 1 ea N/A QS [facility] Stop: 12/29/21 07:59 Last Admin: 11/30/21 15:14 Dose: Not Given Documented by: Miscellaneous (Carbohydrates For Hypoglycemia ) 15 - 30 gm PO UD PRN PRN Reason: Hypoglycemia Treatment Stop: 12/29/21 05:44 Miscellaneous Information (Pharmacy Glycemic Mgmt Consult) 1 ea N/A UD PRN PRN Reason: Consult Stop: 12/30/21 11:37 Multivitamins (Multivitamin Tab) 1 tab PO DAILY [facility] Stop: 12/29/21 08:59 Last Admin: 11/30/21 08:14 Dose: 1 tab Documented by: Nitroglycerin (Nitroglycerin Sl 0.4 Mg/Tab Tab) 0.4 mg SL UD PRN PRN Reason: Chest Pain Stop: 12/29/21 04:41 Oxycodone HCl (Oxycodone Hcl Ir 5 Mg Tab (Immediate Release)) 10 mg PO Q6H PRN PRN Reason: Pain Stop: 12/13/21 04:41 Oxycodone HCl (Oxycodone Hcl 20 Mg Tabcr (Oxycontin)) 20 mg PO BID YELITZA Stop: 12/13/21 08:59 Last Admin: 11/30/21 08:23 Dose: 20 mg Documented by: Pantoprazole Sodium (Pantoprazole 40 Mg Tab) 40 mg PO DAILY PRN PRN Reason: Abdominal Pain Stop: 12/29/21 04:41 Last Admin: 11/29/21 08:59 Dose: 40 mg Documented by: Polyethylene Glycol (Polyethylene (Miralax) 17 Gm Pack) 17 gm PO DAILY PRN PRN Reason: Constipation Stop: 12/29/21 04:41 Last Admin: 11/30/21 09:44 Dose: 17 gm Documented by: Potassium Chloride (Potassium Chloride 10 Meq Tabcr) 10 meq PO QAM YELITZA Stop: 12/29/21 08:59 Last Admin: 11/30/21 08:13 Dose: 10 meq Documented by: Spironolactone (Spironolactone 12.5 Mg Tab) 12.5 mg PO MoWeFr YELITZA Stop: 12/29/21 08:59 Last Admin: 11/29/21 09:00 Dose: 12.5 mg Documented by: Torsemide (Torsemide 10 Mg Tab) 10 mg PO QAM YELITZA Stop: 12/29/21 08:59 Last Admin: 11/30/21 08:12 Dose: 10 mg Documented by: Vitamin D (Cholecalciferol 1,000 Units 25 Mcg Tab) 1,000 units PO DAILY YELITZA Stop: 12/29/21 08:59 Last Admin: 11/30/21 08:12 Dose: 1,000 units Documented by: (1) COPD (chronic obstructive pulmonary disease) COPD type: unspecified COPD Qualified Code(s): J44.9 - Chronic obstructive pulmonary disease, unspecified
--- NOTE | 2021-11-30 18:39 | Hospitalist Progress Note ---
Date of Service November 30, 2021 Assessment & Plan (1) Acute on chronic respiratory failure with hypoxia: Plan: 76-year-old female w/ PMH of type 2 diabetes, hypothyroidism, hyperlipidemia, COPD, on chronic oxygen baseline 3 liters oxygen, sleep apnea not on CPAP as per the patient, paroxysmal atrial fibrillation, cor pulmonale, chronic essential hypertension, morbid obesity, irritable bowel syndrome, stage III chronic kidney disease, mixed stress and urge incontinence, chronic pain syndrome, TIA.Pt presented 11/28 with c/o SOB. Of note, patient was admitted in October with Covid pneumonia with acute on chronic respiratory failure with hypoxia at that time requiring up to 10 L oxygen. She was discharged on 11/20 on her home oxygen. She is being managed for the following: #. Acute on chronic respiratory failure likely 2/2 ongoing COVID infection #. REcent COVID infection - see above Baseline oxygen is 3 L at rest and 4 L with activity Patient requiring 6 L oxygen at presentation. Per recent hospitalization see above. Admitting CXR: Partial interval resolution of interstitial and alveolar opacities bilaterally. No new alveolar opacities. Admitting CT chest: Patchy interstitial and alveolar opacities bilaterally most characteristic of an inflammatory process. No evidence of interstitial edema or pulmonary edema. US venous Doppler left: No evidence of DVT. Could be long Covid, patient started on dexamethasone 11/29, patient started on clindamycin and doxycycline [patient has multiple drug allergies], patient does complain of cough with yellow sputum which is getting better after starting antibiotic, will continue antibiotic for 5 to 7 days. Discussed with pulmonology over the phone, does not think reinfection of Covid, will call pulm if needed. #. Mild elevation of troponin #. CHF - f/u BNP Troponin elevated at 0.25, following trends negative. Likely demand ischemia. EKG reviewed, no acute ST or T changes. QTC prolonged at 517. 11/29 echo reviewed: Ejection fraction greater than 70%, hyperdynamic left ventricle with normal left ventricle size and normal left ventricular wall thickness. Continue with home cardiac medications including spironolactone and torsemide 3. Chronic kidney disease stage III, creatinine 1.2, seems to be baseline. We will follow the labs. 4. Hypomagnesia, monitor and replete. 5. History of sleep apnea, on oxygen in the nighttime. 6. History of diabetes: Holding home p.o. medication, continue with insulin sliding scale with blood sugars. 7. Hypothyroidism on Synthroid. 8. History of atrial fibrillation, on Cardizem, Tikosyn and Coreg. Last admission Cardizem was added and Coreg dose was adjusted. Not on anticoagulation. Xarelto was stopped because of history of hematochezia. We will monitor. Patient reports that she gets weak with Cardizem, cardiology updated, appreciate cardiology recommendation 9. Lower extremity pain.US Doppler negative for DVT.. 10. History of chronic obstructive pulmonary disease. Continue home inhalers.Continue with nebs around the clock and p.r.n. 11. Chronic pain. Continue home pain medications. 12. Deep venous thrombosis prophylaxis: Placed on Lovenox. 13. Thrombocytopenia, platelets of 124, seems to be new. We will follow the repeat labs, could be from ongoing infection. 14 Anemia of chronic disease. Hemoglobin 8.1. Seems to be at baseline. Hemoccult. We will follow the labs. DISPOSITION: Closely monitor in tele floor. Level 1 full code. PT/OT prior to discharge. Social service to help with discharge planning. Admission and Anticipated Discharge Date Admission Date: November 29, 2021 Subjective Patient was lying in bed, on 4 L nasal cannula oxygen, NAD, reports eating and moving bowels okay. Patient reports improving cough and has improving oxygen requirement. Patient denies any fever/chills/chest pain/palpitations/belly pain/other review of symptoms. Physical Exam Physical Exam: GENERAL: Alert and oriented x3. NAD, on 4L. HEENT: No pallor, no icterus. Pupils equal, round and reactive to light. Oral mucosa moist. NECK: No JVD, no neck masses. HEART: S1 and S2 heard. Regular rate and rhythm. No murmur, no gallop. RESPIRATORY SYSTEM: Normal AP diameter. No accessory muscle use. No wheezing, crackles diffuse and bilateral -->improving ABDOMEN: Soft, bowel sounds present, nontender, no distention. CENTRAL NERVOUS SYSTEM: No facial droop. Speech is clear. Obeys simple commands. Moves extremities. EXTREMITIES: Trace BLE edema, no erythema seen. Urinary catheter with light yellow urine collection noted. Results & Data Results & Data ([facility]) Vital Signs (Past 12 Hours) Vital Signs Temp Pulse Pulse Resp BP Pulse Ox 11/30/21 16:33 36.4 C L 60 19 103/54 L 98 11/30/21 15:37 58 L 11/30/21 11:49 36.5 C 56 L 22 107/56 L 97 11/30/21 11:37 87 20 96 11/30/21 09:49 64 11/30/21 07:16 36.5 C 66 16 103/52 L 96
[2021-12-01] MEDS: CLINDAMYCIN 600 MG in DEXTROSE 5% 50 ML IV SCH ×3 (06:01→22:04)
[2021-12-01] MEDS: LEVOTHYROXINE SODIUM 125 MCG TABLET PO SCH (06:01)
[2021-12-01] MEDS: oxyCODONE HCL IR 5 MG TAB (IMMEDIATE RELEASE) PO PRN (06:19)
--- NOTE | 2021-12-01 06:20 | Electrocardiogram Report ---
Test Reason : Blood Pressure : / mmHG Vent. Rate : 093 BPM Atrial Rate : 051 BPM P-R Int : 000 ms QRS Dur : 080 ms QT Int : 408 ms P-R-T Axes : 000 -27 018 degrees QTc Int : 508 ms Probable Atrial fibrillation Prolonged QT Low voltage QRS When compared with ECG of 14-NOV-2021 13:52, Atrial fibrillation has replaced Sinus rhythm QT has lengthened Confirmed by Yvan Loving ([id number]) on 12/01/2021 6:19:49 AM Referred By: REFERRED SELF Confirmed By:Yvan Loving
[2021-12-01 08:41] LABS: Hematocrit (blood only) 25.9 % (37-47); Hemoglobin 7.4 g/dL (12.0-16.0); Mean Corpuscular Hemoglobin 23.9 pg (25-34); Mean Corpuscular Hgb Conc 28.6 g/dL (32-36); Mean Corpuscular Volume 83.5 fL (80-100); Mean Platelet Volume 9.6 fL (7.4-10.4); Platelet Count 146 K/uL (130-400); RDW Coefficient of Variation 17.9 % (11.5-14.5); RDW Standard Deviation 54.9 fL (36.4-46.3); White Blood Count 5.46 K/uL (4.8-10.8)
[2021-12-01 08:55] LABS: BUN Creatinine Ratio 19.9 (10-20); Calcium 7.9 mg/dl (8.5-10.1); Creatinine Clr Calc Pharmacy 41.6 ml/min; Est GFR (African American) 37.5 ml/min; Est GFR (Non-African American) 32.4 ml/min; Potassium 4.8 mmol/L (3.5-5.1)
[2021-12-01] MEDS ORDERED: INSULIN HUMAN NPH SC SCH (09:00)
[2021-12-01] MEDS: POTASSIUM CHLORIDE 10 MEQ TABCR PO SCH (09:01)
[2021-12-01] MEDS: PANTOprazole 40 MG in SYRINGE 0 ML IV SCH ×2 (09:01→22:05)
[2021-12-01] MEDS: BACLOFEN 10 MG TAB PO SCH ×2 (09:01→22:19)
[2021-12-01] MEDS: MAGNESIUM OXIDE 400 MG TAB PO SCH (09:01)
[2021-12-01] MEDS: dexAMETHasone 6 MG in SYRINGE 0 ML IV SCH (09:02)
[2021-12-01] MEDS: FOLIC ACID 1 MG TAB PO SCH (09:02)
[2021-12-01] MEDS: DOXYCYCLINE HYCLATE 100 MG in DEXTROSE 5% 100 ML IV SCH ×2 (09:02→22:04)
[2021-12-01] MEDS: SPIRONOLACTONE 12.5 MG TAB PO SCH (09:02)
[2021-12-01] MEDS: CHOLECALCIFEROL 1,000 UNITS 25 MCG TAB PO SCH (09:03)
[2021-12-01] MEDS: TORSEMIDE 10 MG TAB PO SCH (09:03)
[2021-12-01] MEDS: carvediloL 3.125 MG TAB PO SCH ×2 (09:03→22:20)
[2021-12-01] MEDS: CYANOCOBALAMIN (B-12) 500 MCG TABLET PO SCH (09:03)
[2021-12-01] MEDS: MULTIVITAMIN TAB PO SCH (09:03)
[2021-12-01] MEDS: DOFETILIDE 125 MCG CAPSULE PO SCH ×2 (09:04→22:21)
[2021-12-01] MEDS: PREMARIN VAG CRM 14 APPLN/30 GM TUBE PV SCH (09:05)
[2021-12-01] MEDS: INSULIN ASPART PER UNIT SC SCH ×4 (09:27→21:45)
[2021-12-01 10:20] LABS: Folate (Folic Acid) 16.51 ng/ml (>5.38)
[2021-12-01 10:21] LABS: Vitamin B12 > 1500 pg/ml (211-911)
--- NOTE | 2021-12-01 10:26 | Pharmacy Report ---
Pharmacy Glycemic Short Note 2 - Date of Service December 01, 2021 - Glycemic Short BSG Results (Last 24 hours): 11/30/21 11/30/21 11/30/21 11:29 11:30 13:22 Glucose POC Glucose 465 H* 424 H* 370 H* 11/30/21 11/30/21 11/30/21 15:02 17:12 17:13 Glucose POC Glucose 160 H 51 L* 50 L* 11/30/21 11/30/21 12/01/21 17:47 20:35 02:41 Glucose POC Glucose 107 H 147 H 179 H 12/01/21 12/01/21 07:42 07:42 Glucose 153 H POC Glucose 184 H OUTPATIENT ANTIDIABETIC REGIMEN: * Metformin 500mg PO HS * A1c 7.9% 11/29/21 ASSESSMENT: 12/01/21 * Patient's BSGs yesterday were [phone] mg/dL. Fasting today is 184 mg/dL. * During previous hospitalization, patient's BSGs widely fluctuated. * Doses higher than 15 units of NPH correlated with mild hypoglycemia. Therefore will start NPH 15 units. * In terms of Novolog, patient appears to require tight CR but looser CF. When higher, she tends to "overcorrect" Will trial CF 15 and CR 5 which appeared okay later in the hospital stay. CF may require loosening. * Only use CF at bedtime. Remove CR. BASELINE * 76 year old female known to pharmacy glycemic service from admission last month, with hyperglycemia d/t IV steroids and only on correctional insulin * Start NPH with Dexamethasone, begin now, tighten CF and add CR * PMH significant for morbid obesity, T2DM, COPD on O2, Hypothyroid, CKD III, IBS PLAN FOR INPATIENT GLYCEMIC CONTROL: * Hold outpatient oral diabetes medications * Basal insulin * NPH 15 units SQ daily with IV Dexamethasone * Bolus insulin * NovoLog per scale ACHS or Q6hrs while NPO * Goal Range: Low 110 mg/dL - High 140 mg/dL * Correction Factor: 20 mg/dL/unit * Nutritional / Prandial insulin per carb ratio of 1 unit per 5 grams CHO consumed (none at bedtime) Recommendations for Discharge * HbA1C appears improved compared to October. Caution in interpreting due to extensive use of steroids. * Recommend monitoring BSGs at home and following-up with outpatient provider to determine true glycemic control.
[2021-12-01] MEDS: FERROUS SULFATE 325 MG TAB PO SCH (10:33)
[2021-12-01] MEDS: oxyCODONE HCL 20 MG TABCR (OxyCONTIN) PO SCH ×2 (11:57→22:21)
[2021-12-01 16:16] LABS: Hematocrit (blood only) 25.9 % (37-47); Hemoglobin 7.5 g/dL (12.0-16.0)
--- NOTE | 2021-12-01 18:52 | Hospitalist Progress Note ---
Date of Service December 01, 2021 Assessment & Plan (1) Acute on chronic respiratory failure with hypoxia: Plan: 76-year-old female w/ PMH of type 2 diabetes, hypothyroidism, hyperlipidemia, COPD, on chronic oxygen baseline 3 liters oxygen, sleep apnea not on CPAP as per the patient, paroxysmal atrial fibrillation, cor pulmonale, chronic essential hypertension, morbid obesity, irritable bowel syndrome, stage III chronic kidney disease, mixed stress and urge incontinence, chronic pain syndrome, TIA.Pt presented 11/28 with c/o SOB. Of note, patient was admitted in October with Covid pneumonia with acute on chronic respiratory failure with hypoxia at that time requiring up to 10 L oxygen. She was discharged on 11/20 on her home oxygen. She is being managed for the following: #. Acute on chronic respiratory failure likely 2/2 ongoing COVID infection #. REcent COVID infection - see above Baseline oxygen is 3 L at rest and 4 L with activity Patient requiring 6 L oxygen at presentation. Per recent hospitalization see above. Admitting CXR: Partial interval resolution of interstitial and alveolar opacities bilaterally. No new alveolar opacities. Admitting CT chest: Patchy interstitial and alveolar opacities bilaterally most characteristic of an inflammatory process. No evidence of interstitial edema or pulmonary edema. US venous Doppler left: No evidence of DVT. Could be long Covid, patient started on dexamethasone 11/29, patient started on clindamycin and doxycycline [patient has multiple drug allergies], patient does complain of cough with yellow sputum which is getting better after starting antibiotic, will continue antibiotic for 5 to 7 days. #. Mild elevation of troponin #. CHF - f/u BNP Troponin elevated at 0.25, following trends negative. Likely demand ischemia. EKG reviewed, no acute ST or T changes. QTC prolonged at 517. 11/29 echo reviewed: Ejection fraction greater than 70%, hyperdynamic left ventricle with normal left ventricle size and normal left ventricular wall thickness. Continue with home cardiac medications including spironolactone and torsemide 3. Chronic kidney disease stage III, creatinine 1.2, seems to be baseline. We will follow the labs. 4. Hypomagnesia, monitor and replete. 5. History of sleep apnea, on oxygen in the nighttime. 6. History of diabetes: Holding home p.o. medication, continue with insulin sliding scale with blood sugars. 7. Hypothyroidism on Synthroid. 8. History of atrial fibrillation, on Cardizem, Tikosyn and Coreg. Last admission Cardizem was added and Coreg dose was adjusted. Not on anticoagulation. Xarelto was stopped because of history of hematochezia. We will monitor. Patient reports that she gets weak with Cardizem, cardiology updated, appreciate cardiology recommendation --> Cardizem was stopped and patient was in sinus in the 60s to 70s per telemetry. 9. Lower extremity pain.US Doppler negative for DVT.. 10. History of chronic obstructive pulmonary disease. Continue home inhalers.Continue with nebs around the clock and p.r.n. 11. Chronic pain. Continue home pain medications. 12. Deep venous thrombosis prophylaxis: Placed on Lovenox. 13. Thrombocytopenia, platelets of 124, seems to be new. We will follow the repeat labs, could be from ongoing infection. 14 Anemia of chronic disease. Admitting hemoglobin 8.1, hemoglobin dropping to 7.5, FOBT sent, still on collected, iron profile done and iron was low, patient started on iron supplementation, follow-up with H&H daily. DISPOSITION: Closely monitor in tele floor. Level 1 full code. PT/OT prior to discharge. Social service to help with discharge planning. Awaiting placement. Admission and Anticipated Discharge Date Admission Date: November 29, 2021 Subjective Patient seen and examined at bedside for acute on chronic respiratory failure likely secondary to long Covid. Patient sitting up in chair, on 2 L nasal cannula oxygen, NAD, reports eating okay, has not had bowel movement since yesterday. Patient reports improving cough and has improving oxygen requirement. Patient denies any fever/chills/chest pain/palpitations/belly pain/other review of symptoms. Patient wanted to discuss her inhalation medications with lung doctor and hence demanded lung doctor see her. I tried to explain her the mechanics of inhalation and made it clear that her lung sounds were sounding better and there was no wheezing, patient insisted that there is wheezing. Physical Exam Physical Exam: GENERAL: Alert and oriented x3. NAD, on 2L. HEENT: No pallor, no icterus. Pupils equal, round and reactive to light. Oral mucosa moist. NECK: No JVD, no neck masses. HEART: S1 and S2 heard. Regular rate and rhythm. No murmur, no gallop. RESPIRATORY SYSTEM: Normal AP diameter. No accessory muscle use. No wheezing, b/b crackles, decreased breath sounds ABDOMEN: Soft, bowel sounds present, nontender, no distention. CENTRAL NERVOUS SYSTEM: No facial droop. Speech is clear. Obeys simple commands. Moves extremities. EXTREMITIES: Trace BLE edema, no erythema seen. Urinary catheter with light yellow urine collection noted. Results & Data Results & Data ([facility]) Vital Signs (Past 12 Hours) Vital Signs Temp Pulse Pulse Resp BP Pulse Ox Pulse Ox 12/01/21 17:58 37 C 73 20 119/62 98 12/01/21 17:54 75 12/01/21 15:59 92 12/01/21 15:27 36.7 C 68 17 95/64 L 96 12/01/21 14:19 93 12/01/21 12:56 69 12/01/21 11:57 36.7 C 64 20 125/57 L 94 12/01/21 09:16 70 12/01/21 09:14 17 92 12/01/21 08:03 36.9 C 72 18 94/69 L 100 Pulse Ox Pulse Ox 12/01/21 17:58 12/01/21 17:54 12/01/21 15:59 12/01/21 15:27 12/01/21 14:19 93 77 L 12/01/21 12:56 12/01/21 11:57 12/01/21 09:16 12/01/21 09:14 12/01/21 08:03
--- NOTE | 2021-12-01 19:43 | Pulmonary Consultation ---
Date of Consultation December 01, 2021 Assessment & Plan (1) Cushingoid side effect of steroids: (2) COPD (chronic obstructive pulmonary disease): COPD type: unspecified COPD Qualified Code(s): J44.9 - Chronic obstructive pulmonary disease, unspecified (3) Long COVID: The patient is severely debilitated at baseline by numerous comorbid conditions which is unfortunately limited by her poor compliance with recommended therapies. I would strongly encourage weaning her off steroids given her morbid obesity and cushingoid features. I have no evidence on exam to suggest that she is in a COPD exacerbation. I would recommend the addition of Incruse Ellipta. I would avoid overuse of albuterol given her history of AF. Recommend avoiding hyperoxia with aiming for goal O2 sats of 88-92%, but nursing has mentioned that the patient desires to have higher flow rates of oxygen for comfort. Recommend aggresive pulmonary toilet with IS and flutter valve. PT/OT is strongly recommended and it was noted in the past that she would benefit from SNF, but the patient has refused. Thank you for the consultation. Pulmonary will sign off at this time. Please call with questions. History of Present Illness Reason for Consultation: Patient request Attending Physician: Chris Mcnally MD History of Present Illness 76 yo female with a pmhx of morbid obesity, COPD oxygen dependent, PAF, CKD3, diastolic CHF and COVID 19 currently hospitalized for shortness of breath. Patient was diagnosed with COVID last month and finished several courses of steroids and abx. She endorses chronic severe shortness of breath and requests that she have her albuterol inhaler available at all times. Nursing notes that she has been using her albuterol inhaler repeatedly on her own. Patient's mobility is very limited at baseline. Patient appears to be preoccupied with the notion that she is wheezing despite being told that there are no audible wheezes heard on exam by multiple providers. She relates a chronic cough and sinus congestion. She describes numerous allergies to multiple inhalers and is reluctant to try maintenance inhalers. I reviewed her prior PFTs which indicate a mixed obstructive and restrictive ventilatory defect. CT chest imaging also reviewed which demonstrated post inflammatory COVID 19 illness. Allergies Allergy/AdvReac Type Severity Reaction Status Date / Time aspirin Allergy Severe HIVES, SOB Verified 11/28/21 23:31 Iodinated Contrast Media Allergy Severe "CAUSED Verified 11/28/21 23:31 ASTHMA ATTACK" & HIVES ipratropium Allergy Severe SHORTNESS Verified 11/28/21 23:31 OF BREATH metaproterenol [From Alupent] Allergy Severe EYES AND Verified 11/28/21 23:31 FACE SWELLING, SEVERE WHEEZING NSAIDS (Non-Steroidal Allergy Severe Hives Verified 11/28/21 23:31 Anti-Inflamma Penicillins Allergy Severe SOB, HIVES Verified 11/28/21 23:31 sotalol Allergy Severe increased Verified 11/28/21 23:31 breathing problems Sulfa (Sulfonamide Allergy Severe Anaphylaxis Verified 11/28/21 23:31 Antibiotics) tiotropium Allergy Severe SYMPTOMS Verified 11/28/21 23:31 [From Spiriva with [employer]] INSTEAD OF BETTER WITH BREATHING arformoterol Allergy Intermediate TACHYCARDIA Verified 11/28/21 23:31 aspartame Allergy Intermediate HIVES, Verified 11/28/21 23:31 ITCHY ciprofloxacin Allergy Intermediate WHEEZING, Verified 11/28/21 23:31 NAUSEA clarithromycin [From Biaxin] Allergy Intermediate Unknown, ? Verified 11/28/21 23:31 WHEEZING , OR NAUSEA ? Fish Containing Products Allergy Intermediate BODY CAN'T Verified 11/28/21 23:31 ABSORB fish derived Allergy Intermediate Unknown Verified 11/28/21 23:31 latex Allergy Intermediate ITCHY/RASH Verified 11/28/21 23:31 nickel Allergy Intermediate RASH & Verified 11/28/21 23:31 BLISTERS pioglitazone [From Actos] Allergy Intermediate RETAINED Verified 11/28/21 23:31 FLUID povidone Allergy Intermediate BLISTER Verified 11/28/21 23:31 WITH TAPE shellfish derived Allergy Intermediate BODY CAN'T Verified 11/28/21 23:31 ABSORB, "SMELL LIKE A FISH" stevioside [From Stevia] Allergy Intermediate Wheezing Verified 11/28/21 23:31 sucralose Allergy Intermediate Wheezing Verified 11/28/21 23:31 [From Splenda (sucralose)] adhesive Allergy Mild BLISTERS Verified 11/28/21 23:31 WITH TAPE apixaban [From Eliquis] Allergy Mild SEE NOTES Verified 11/28/21 23:31 BELOW banana Allergy Mild "FEELS Verified 11/28/21 23:31 LIKE PEACH FUZZ IN MOUTH" chlorhexidine Allergy Mild BLISTERY Verified 11/28/21 23:31 RASH psyllium [From Metamucil] AdvReac Intermediate bloating Verified 11/28/21 23:31 meperidine AdvReac Mild Gastrointestinal Verified 11/28/21 23:31 Upset, N/V metformin [From Riomet] AdvReac Mild DIARRHEA Verified 11/28/21 23:31 WITH MORE THAN 1 A DAY morphine AdvReac Mild Gastrointestinal Verified 11/28/21 23:31 Upset,N/V tapentadol [From Nucynta] AdvReac Mild Nausea and Verified 11/28/21 23:31 vomiting Home Medications Medication Instructions Recorded Confirmed Type baclofen 10 mg tablet 5 mg PO BID 09/12/20 11/28/21 History cholecalciferol (vitamin D3) 25 25 mcg PO DAILY 09/12/20 11/28/21 History mcg (1,000 unit) capsule conjugated estrogens 0.625 mg/gram 0.625 mg VAGINAL 3XWK 09/12/20 11/28/21 History vaginal cream (Premarin) cyanocobalamin (vitamin B-12) 500 500 mcg PO DAILY 09/12/20 11/28/21 History mcg tablet dofetilide 250 mcg capsule 250 mcg PO BID 09/12/20 11/28/21 History hydrocortisone 2.5 % topical cream 1 applic OR BID PRN 09/12/20 11/28/21 History with perineal applicator (Proctosol HC) meclizine 25 mg tablet 25 mg PO Q8H PRN 09/12/20 11/28/21 History metformin 500 mg tablet,extended 500 mg PO QPM 09/12/20 11/28/21 History release 24 hr multivitamin 1 tab PO DAILY 09/12/20 11/28/21 History pantoprazole 40 mg tablet,delayed 40 mg PO DAILY PRN 09/12/20 11/28/21 History release potassium chloride 10 mEq 10 meq PO QAM 09/12/20 11/28/21 History tablet,extended release spironolactone 25 mg tablet 12.5 mg PO 3XWK 09/12/20 11/28/21 History torsemide 10 mg tablet 10 mg PO QAM 09/12/20 11/28/21 History acetaminophen 650 mg 650 mg PO UD PRN 09/28/20 11/28/21 History tablet,extended release (Tylenol 8 Hour) diclofenac sodium 2 % topical 1 packet TOPICAL UD PRN 09/28/20 11/28/21 History solution in packet magnesium 200 mg tablet 600 mg PO DAILY 09/28/20 11/28/21 History ondansetron HCl 4 mg tablet 4 mg PO Q8H PRN 09/28/20 11/28/21 History polyethylene glycol 3350 17 gram 17 g PO QAM PRN 09/28/20 11/28/21 History oral powder packet (Miralax) albuterol sulfate 90 mcg/actuation 2 inh INHALATION Q6H PRN #3 inhaler 11/11/20 11/28/21 Rx aerosol inhaler ferrous fumarate-vitamin C 200 mg 1 tab PO DAILY 03/01/21 11/28/21 History (66 mg iron)-125 mg tablet folic acid 1 mg tablet 1 mg PO DAILY 03/01/21 11/28/21 History nebulizers #1 ea 05/11/21 11/08/21 Rx albuterol sulfate 2.5 mg INHALATION Q4H PRN #180 ml 09/27/21 11/28/21 Rx benzonatate 100 mg capsule 100 mg PO TID PRN 11/08/21 11/28/21 History oxycodone 10 mg tablet 10 mg PO Q6H PRN 11/08/21 11/28/21 History oxycodone 20 mg tablet,crush 20 mg PO BID PRN 11/08/21 11/28/21 History resistant,extended release 12 hr (OxyContin) carvedilol 3.125 mg tablet 9.375 mg PO BID #180 tab 11/20/21 11/28/21 Rx diltiazem HCl 30 mg tablet 30 mg PO TID #90 tab 11/20/21 11/28/21 Rx levothyroxine 125 mcg tablet 125 mcg PO DAILYBB #30 tab 11/20/21 11/28/21 Rx (Synthroid) mupirocin 2 % topical ointment 1 applic TOPICAL BID PRN 11/28/21 11/28/21 History Patient History Medical History (Updated 12/01/21 @ 19:59 by Jesus Manuel Wright MD) Asthma USED RESCUE INHALER LAST WEEKEND Back problem 3 DISCS PUSHING ON SCIATIC NERVE PER PT>CAUSES R LEG NUMBNESS AT TIMES LYING FLAT FOR EXTENDED TIME WILL CAUSE LEGS TO JUMP Chronic anticoagulation Chronic diastolic CHF (congestive heart failure) Chronic low blood pressure Chronic respiratory failure with hypoxia CKD (chronic kidney disease), stage III COPD (chronic obstructive pulmonary disease) Cor pulmonale, chronic Cushingoid side effect of steroids DM type 2 (diabetes mellitus, type 2) Dyslipidemia History of Meniere's disease History of TIA (transient ischemic attack) ? NEVER CONFIRMED (PT DOES NOT THINK SHE HAD TIA) Hx of vertigo Hypothyroidism Impingement syndrome of both shoulders Long COVID ZEYAD (obstructive sleep apnea) WEARS 3-4L CONT. Osteoarthritis Oxygen dependent 3-4L CONT. 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 Brother Stroke Sister Diabetes Sister Diabetes Son Diabetes Social History Smoking Status: Never smoker Second Hand Exposure: No; Hx Alcohol Use: No Hx Substance Use: No Preferred Language: Lithuanian Communication Ability: Effective Security Shift Manager Required: No Beliefs That Will Affect Care: None marital status: Current Living Situation: Family Current Living Situation Comment: lives with son How many Children do You have: 2 Feels Safe at Home: Yes Safety Concerns: Feels Safe At This Time Assistive Devices: Oxygen - Continuous Review of Systems Review of Systems: All systems reviewed & are unremarkable except as noted in HPI & below Physical Exam Constitutional: Chronically ill appearing female laying in bed. NAD Eyes: PERRL, conjunctivae normal, anicteric sclerae ENMT: external ear and nose normal, oropharynx normal Neck: trachea midline, no thyromegaly Respiratory: Prolonged phase of exhalation. Diminished b/l Cardiovascular: RRR, no murmur, no edema Gastrointestinal (Abdomen): normal bowel sounds, soft, nontender, no hepatosplenomegaly Musculoskeletal: buffalo hump, ROM limited diffusely Skin: oliver facies Neurologic: patellar DTR's 2+ bilat, sensation intact Psychiatric: Orientation: alert and oriented x 3 Thought Process: goal directed thought process Thought Content: + preoccupation Results & Data Results & Data ([facility]) Vital Signs (Past 12 Hours) Vital Signs Temp Pulse Pulse Resp BP Pulse Ox Pulse Ox 12/01/21 15:59 92 12/01/21 15:27 36.7 C 68 17 95/64 L 96 12/01/21 14:19 93 12/01/21 12:56 69 12/01/21 11:57 36.7 C 64 20 125/57 L 94 12/01/21 09:16 70 12/01/21 09:14 17 92 12/01/21 08:03 36.9 C 72 18 94/69 L 100 Pulse Ox Pulse Ox 12/01/21 15:59 12/01/21 15:27 12/01/21 14:19 93 77 L 12/01/21 12:56 12/01/21 11:57 12/01/21 09:16 12/01/21 09:14 12/01/21 08:03 PG Care Time/CCT Total # of Minutes Spent Total Time Spent with Patient: Total time spent is greater than 50% in coordination of care (as documented) at patient's floor/unit and/or counseling patient: Coding Level of Care Code 72114 Initial Inpt Care Lvl 3 Diagnoses Cushingoid side effect of steroids E24.2 COPD (chronic obstructive pulmonary disease) J44.9 COPD type: unspecified COPD Long COVID U09.9
[2021-12-01] MEDS: ALBUTEROL HFA 8 GM INHALER INH PRN (23:33)
[2021-12-02] MEDS: oxyCODONE HCL IR 5 MG TAB (IMMEDIATE RELEASE) PO PRN ×2 (04:53→12:27)
[2021-12-02] MEDS: ALBUTEROL 0.083% NEBU SOLN 3 ML VIAL INH PRN (05:11)
[2021-12-02] MEDS: CLINDAMYCIN 600 MG in DEXTROSE 5% 50 ML IV SCH ×3 (06:47→21:43)
[2021-12-02] MEDS: LEVOTHYROXINE SODIUM 125 MCG TABLET PO SCH (06:48)
[2021-12-02] MEDS: INSULIN ASPART PER UNIT SC SCH ×4 (08:04→21:29)
[2021-12-02] MEDS ORDERED: UMECLIDINIUM BROMIDE 62.5MCG/BLISTER 7 PUFFS/INHALER INH SCH (09:00)
[2021-12-02] MEDS: DOXYCYCLINE HYCLATE 100 MG in DEXTROSE 5% 100 ML IV SCH ×2 (09:05→21:41)
[2021-12-02] MEDS: oxyCODONE HCL 20 MG TABCR (OxyCONTIN) PO SCH ×2 (09:05→21:43)
[2021-12-02] MEDS: PANTOprazole 40 MG in SYRINGE 0 ML IV SCH ×2 (09:08→21:43)
[2021-12-02] MEDS: MAGNESIUM OXIDE 400 MG TAB PO SCH (09:21)
[2021-12-02] MEDS: BACLOFEN 10 MG TAB PO SCH ×2 (09:21→21:41)
[2021-12-02] MEDS: CYANOCOBALAMIN (B-12) 500 MCG TABLET PO SCH (09:21)
[2021-12-02] MEDS: CHOLECALCIFEROL 1,000 UNITS 25 MCG TAB PO SCH (09:23)
[2021-12-02] MEDS: DOFETILIDE 125 MCG CAPSULE PO SCH ×2 (09:23→21:42)
[2021-12-02] MEDS: MULTIVITAMIN TAB PO SCH (09:23)
[2021-12-02] MEDS: carvediloL 3.125 MG TAB PO SCH ×2 (09:24→21:41)
[2021-12-02] MEDS: FOLIC ACID 1 MG TAB PO SCH (09:24)
[2021-12-02] MEDS: TORSEMIDE 10 MG TAB PO SCH (09:25)
[2021-12-02] MEDS: POTASSIUM CHLORIDE 10 MEQ TABCR PO SCH (09:25)
[2021-12-02 09:45] LABS: Hematocrit (blood only) 27.8 % (37-47); Hemoglobin 7.8 g/dL (12.0-16.0)
[2021-12-02 09:55] LABS: BUN Creatinine Ratio 23.5 (10-20); Calcium 7.9 mg/dl (8.5-10.1); Creatinine Clr Calc Pharmacy 47.7 ml/min; Est GFR (African American) 44.3 ml/min; Est GFR (Non-African American) 38.2 ml/min; Potassium 4.3 mmol/L (3.5-5.1)
--- NOTE | 2021-12-02 10:39 | Pharmacy Report ---
Pharmacy Glycemic Short Note 2 - Date of Service December 02, 2021 - Glycemic Short BSG Results (Last 24 hours): 12/01/21 12/01/21 12/01/21 11:43 13:40 16:52 Glucose POC Glucose 110 H 143 H 56 L* 12/01/21 12/01/21 12/01/21 16:54 17:27 18:22 Glucose POC Glucose 56 L* 137 H 139 H 12/01/21 12/01/21 12/02/21 20:29 20:30 04:54 Glucose POC Glucose 373 H* 137 H 161 H 12/02/21 12/02/21 07:21 08:19 Glucose 164 H POC Glucose 130 H OUTPATIENT ANTIDIABETIC REGIMEN: * Metformin 500mg PO HS * A1c 7.9% 11/29/21 ASSESSMENT: 12/02/21 * Patient's BSGs yesterday were [phone] and overnight was 161 mg/dL. Fasting is 130 mg/dL. * Patient received 33 units of insulin (15 units of NPH and 18 units of bolus). * Dexamethasone d/c'ed today so d/c NPH. * Loosen Novolog. 12/01/21 * Patient's BSGs yesterday were [phone] mg/dL. Fasting today is 184 mg/dL. * During previous hospitalization, patient's BSGs widely fluctuated. * Doses higher than 15 units of NPH correlated with mild hypoglycemia. Therefore will start NPH 15 units. * In terms of Novolog, patient appears to require tight CR but looser CF. When higher, she tends to "overcorrect" Will trial CF 15 and CR 5 which appeared okay later in the hospital stay. CF may require loosening. * Only use CF at bedtime. Remove CR. BASELINE * 76 year old female known to pharmacy glycemic service from admission last month, with hyperglycemia d/t IV steroids and only on correctional insulin * Start NPH with Dexamethasone, begin now, tighten CF and add CR * PMH significant for morbid obesity, T2DM, COPD on O2, Hypothyroid, CKD III, IBS PLAN FOR INPATIENT GLYCEMIC CONTROL: * Hold outpatient oral diabetes medications * Basal insulin * hold * Bolus insulin- loosened * NovoLog per scale ACHS or Q6hrs while NPO * Goal Range: Low 110 mg/dL - High 140 mg/dL * Correction Factor: 25 mg/dL/unit * Nutritional / Prandial insulin per carb ratio of 1 unit per 8 grams CHO consumed (none at bedtime) Recommendations for Discharge * HbA1C appears improved compared to October. Caution in interpreting due to extensive use of steroids. * Recommend monitoring BSGs at home and following-up with outpatient provider to determine true glycemic control.
[2021-12-02] MEDS: FERROUS SULFATE 325 MG TAB PO SCH (11:05)
[2021-12-02] MEDS: POLYETHYLENE (MIRALAX) 17 GM PACK PO PRN (11:05)
[2021-12-02] MEDS: ALBUTEROL HFA 8 GM INHALER INH PRN ×2 (11:18→18:04)
--- NOTE | 2021-12-02 16:23 | Communication Note ---
Date of Service: December 02, 2021 Telemetry reviewed. SR in the 60s noted. Continue Dofetilide 250 mcg BID and coreg 9.375 PO BID EKG on 11/28/21 , technically limited. Repeat tomorrow to reassess QTc.
--- NOTE | 2021-12-02 16:26 | Hospitalist Progress Note ---
Date of Service December 02, 2021 Assessment & Plan (1) Acute on chronic respiratory failure with hypoxia: Plan: 76-year-old female w/ PMH of type 2 diabetes, hypothyroidism, hyperlipidemia, COPD, on chronic oxygen baseline 3 liters oxygen, sleep apnea not on CPAP as per the patient, paroxysmal atrial fibrillation, cor pulmonale, chronic essential hypertension, morbid obesity, irritable bowel syndrome, stage III chronic kidney disease, mixed stress and urge incontinence, chronic pain syndrome, TIA.Pt presented 11/28 with c/o SOB. Of note, patient was admitted in October with Covid pneumonia with acute on chronic respiratory failure with hypoxia at that time requiring up to 10 L oxygen. She was discharged on 11/20 on her home oxygen. She is being managed for the following: #. Acute on chronic respiratory failure likely 2/2 ongoing COVID infection #. REcent COVID infection - see above Baseline oxygen is 3 L at rest and 4 L with activity Patient requiring 6 L oxygen at presentation. Per recent hospitalization see above. Admitting CXR: Partial interval resolution of interstitial and alveolar opacities bilaterally. No new alveolar opacities. Admitting CT chest: Patchy interstitial and alveolar opacities bilaterally most characteristic of an inflammatory process. No evidence of interstitial edema or pulmonary edema. US venous Doppler left: No evidence of DVT. Could be long Covid, dexamethasone 11/29 - 12/02, patient started on clindamycin and doxycycline [patient has multiple drug allergies], patient does complain of cough with yellow sputum which is getting better after starting antibiotic, will continue antibiotic for 5 to 7 days. Pulmonology evaluated the patient: Recommends discontinuing steroid, recommends addition of Incruse Ellipta and avoid overuse of albuterol given her history of A. fib and patient not willing to take Cardizem and cardiology having hard time controlling her heart rate. 12/02---> discussed with pulmonology and cardiology regarding review of heart rate control medications and need for inhalation medications for her COPD. Cardiology to review her medication again today. Pulmonology recommended Incruse Ellipta but patient denied based on the fact that she had adverse reaction to tiotropium and ipratropium in the past. Pulmonology made aware. Since she has multiple complaints with multiple medications including Cardizem, anticholinergics and limitation to use beta agonist inhalation due to tricky heart rate control, hence discussed with cardiology and pulmonology. Appreciate their recommendations. #. Mild elevation of troponin #. CHF - f/u BNP Troponin elevated at 0.25, following trends negative. Likely demand ischemia. EKG reviewed, no acute ST or T changes. QTC prolonged at 517. 11/29 echo reviewed: Ejection fraction greater than 70%, hyperdynamic left v entricle with normal left ventricle size and normal left ventricular wall thickness. Continue with home cardiac medications including spironolactone and torsemide 3. Chronic kidney disease stage III, creatinine 1.2, seems to be baseline. We will follow the labs. 4. Hypomagnesia, monitor and replete. 5. History of sleep apnea, on oxygen in the nighttime. 6. History of diabetes: Holding home p.o. medication, continue with insulin sliding scale with blood sugars. 7. Hypothyroidism on Synthroid. 8. History of atrial fibrillation, on Cardizem, Tikosyn and Coreg. Last admission Cardizem was added and Coreg dose was adjusted. Not on anticoagulation. Xarelto was stopped because of history of hematochezia. We will monitor. Patient reports that she gets weak with Cardizem, cardiology updated, appreciate cardiology recommendation --> Cardizem was stopped and patient was in sinus in the 60s to 70s until 12/01, but had a brief run of atrial tachycardia on 12/02. 9. Lower extremity pain.US Doppler negative for DVT.. 10. History of chronic obstructive pulmonary disease. Continue home inhalers.Continue with nebs around the clock and p.r.n. 11. Chronic pain. Continue home pain medications. 12. Deep venous thrombosis prophylaxis: Placed on Lovenox. 13. Thrombocytopenia, platelets of 124, seems to be new. We will follow the repeat labs, could be from ongoing infection. 14 Anemia of chronic disease. Admitting hemoglobin 8.1, hemoglobin dropping to 7.5, FOBT sent, still on collected, iron profile done and iron was low, patient started on iron supplementation, follow-up with H&H daily. DISPOSITION: Closely monitor in tele floor. Level 1 full code. PT/OT prior to discharge. Social service to help with discharge planning. Awaiting placement. PT/OT recommending SNF, but looks like patient is not willing to go to SNF. CM to assist with DC planning. Patient stable for discharge. Patient complains of having incomplete sleep studies 3-4 times in the past, last one being 4 years ago and wants to do another sleep study upon discharge. Will need sleep study set up upon discharge. Admission and Anticipated Discharge Date Admission Date: November 29, 2021 Subjective Patient seen and examined at bedside for acute on chronic respiratory failure likely secondary to long Covid. Patient lying in bed, on 3 L nasal cannula oxygen, NAD, reports eating okay. Patient reports improving cough and has improving oxygen requirement. Patient denies acute events overnight. Patient denies any fever/chills/chest pain/palpitations/belly pain/other review of symptoms. Patient reports " she was wheezing but the lung doctor yesterday said that she is not wheezing". Of note, she was not wheezing on my examination yesterday and she insisted that she was wheezing. Physical Exam Physical Exam: GENERAL: Alert and oriented x3. NAD, on 3L. HEENT: No pallor, no icterus. Pupils equal, round and reactive to light. Oral mucosa moist. NECK: No JVD, no neck masses. HEART: S1 and S2 heard. Regular rate and rhythm. No murmur, no gallop. RESPIRATORY SYSTEM: Normal AP diameter. No accessory muscle use. No wheezing, b/b crackles, decreased breath sounds ABDOMEN: Soft, bowel sounds present, nontender, no distention. CENTRAL NERVOUS SYSTEM: No facial droop. Speech is clear. Obeys simple commands. Moves extremities. EXTREMITIES: Trace BLE edema, no erythema seen. Urinary catheter with light yellow urine collection noted. Results & Data Results & Data ([facility]) Vital Signs (Past 12 Hours) Vital Signs Temp Pulse Pulse Resp BP BP Pulse Ox 12/02/21 16:03 57 L 154/79 H 97 12/02/21 11:18 66 18 96 12/02/21 10:27 36.5 C 67 20 123/70 97 12/02/21 07:52 58 L 12/02/21 06:55 36.7 C 77 20 128/73 96 12/02/21 05:11 75 22 96
[2021-12-02] MEDS: HEPARIN SOD 5,000 UNIT/0.5 ML VIAL SQ SCH (21:42)
[2021-12-02] MEDS ORDERED: LORATADINE 10 MG TAB PO ONE (23:16)
--- NOTE | 2021-12-02 23:19 | Communication Note ---
Date of Service: December 02, 2021 Patient complained right forearm burning the last few hours while clindamycin and doxycycline infusing as per RN. Red rash later noted by RN on exam. AP Antibiotic hypersensitivity (Clindamycin versus doxycycline) Loratadine now Hold both antibiotics until patient seen by a.m. provider.
[2021-12-03] MEDS: ALBUTEROL HFA 8 GM INHALER INH PRN ×4 (00:45→20:39)
[2021-12-03 06:03] LABS: Hematocrit (blood only) 27.1 % (37-47); Hemoglobin 7.9 g/dL (12.0-16.0)
[2021-12-03] MEDS: LEVOTHYROXINE SODIUM 125 MCG TABLET PO SCH (06:11)
[2021-12-03] MEDS: DOFETILIDE 125 MCG CAPSULE PO SCH ×2 (07:39→21:12)
[2021-12-03] MEDS: CHOLECALCIFEROL 1,000 UNITS 25 MCG TAB PO SCH (07:40)
[2021-12-03] MEDS: CYANOCOBALAMIN (B-12) 500 MCG TABLET PO SCH (07:40)
[2021-12-03] MEDS: carvediloL 3.125 MG TAB PO SCH ×2 (07:40→21:12)
[2021-12-03] MEDS: FOLIC ACID 1 MG TAB PO SCH (07:42)
[2021-12-03] MEDS: MULTIVITAMIN TAB PO SCH (07:42)
[2021-12-03] MEDS: MAGNESIUM OXIDE 400 MG TAB PO SCH (07:42)
[2021-12-03] MEDS: HEPARIN SOD 5,000 UNIT/0.5 ML VIAL SQ SCH ×2 (07:42→21:13)
[2021-12-03] MEDS: FERROUS SULFATE 325 MG TAB PO SCH (07:42)
[2021-12-03] MEDS: BACLOFEN 10 MG TAB PO SCH ×2 (07:42→22:13)
[2021-12-03] MEDS: TORSEMIDE 10 MG TAB PO SCH (07:43)
[2021-12-03] MEDS: oxyCODONE HCL 20 MG TABCR (OxyCONTIN) PO SCH ×2 (07:43→21:11)
[2021-12-03] MEDS: PANTOprazole 40 MG in SYRINGE 0 ML IV SCH (07:46)
[2021-12-03] MEDS: POTASSIUM CHLORIDE 10 MEQ TABCR PO SCH (07:47)
[2021-12-03] MEDS: INSULIN ASPART PER UNIT SC SCH ×4 (08:43→21:10)
--- NOTE | 2021-12-03 09:37 | Pharmacy Report ---
Pharmacy Glycemic Short Note 2 - Date of Service December 03, 2021 - Glycemic Short BSG Results (Last 24 hours): 12/02/21 12/02/21 12/02/21 08:19 11:10 16:06 Glucose 164 H POC Glucose 174 H 37 L* 12/02/21 12/02/21 12/02/21 16:29 16:29 16:42 Glucose POC Glucose 192 H 208 H 156 H 12/02/21 12/02/21 12/02/21 17:29 18:19 19:13 Glucose POC Glucose 135 H 169 H 170 H 12/02/21 12/03/21 12/03/21 20:52 03:31 07:28 Glucose POC Glucose 164 H 130 H 122 H OUTPATIENT ANTIDIABETIC REGIMEN: * Metformin 500mg PO HS * A1c 7.9% 11/29/21 ASSESSMENT: 12/03/21 * Patient's BSGs yesterday were [phone] mg/dL and fasting today is 122 mg/dL. * NPH held since steroids d/c'ed. * Due to hypoglycemia yesterday, loosen Novolog significant and raise goal range. 12/02/21 * Patient's BSGs yesterday were [phone] and overnight was 161 mg/dL. Fasting is 130 mg/dL. * Patient received 33 units of insulin (15 units of NPH and 18 units of bolus). * Dexamethasone d/c'ed today so d/c NPH. * Loosen Novolog. 12/01/21 * Patient's BSGs yesterday were [phone] mg/dL. Fasting today is 184 mg/dL. * During previous hospitalization, patient's BSGs widely fluctuated. * Doses higher than 15 units of NPH correlated with mild hypoglycemia. Therefore will start NPH 15 units. * In terms of Novolog, patient appears to require tight CR but looser CF. When higher, she tends to "overcorrect" Will trial CF 15 and CR 5 which appeared okay later in the hospital stay. CF may require loosening. * Only use CF at bedtime. Remove CR. BASELINE * 76 year old female known to pharmacy glycemic service from admission last month, with hyperglycemia d/t IV steroids and only on correctional insulin * Start NPH with Dexamethasone, begin now, tighten CF and add CR * PMH significant for morbid obesity, T2DM, COPD on O2, Hypothyroid, CKD III, IBS PLAN FOR INPATIENT GLYCEMIC CONTROL: * Hold outpatient oral diabetes medications * Basal insulin * hold * Bolus insulin- loosened * NovoLog per scale ACHS or Q6hrs while NPO * Goal Range: Low 120 mg/dL - High 150 mg/dL * Correction Factor: 35 mg/dL/unit * Nutritional / Prandial insulin per carb ratio of 1 unit per 15 grams CHO consumed (none at bedtime) Recommendations for Discharge * HbA1C appears improved compared to October. Caution in interpreting due to extensive use of steroids. * Recommend monitoring BSGs at home and following-up with outpatient provider to determine true glycemic control.
[2021-12-03] MEDS: DOXYCYCLINE HYCLATE 100 MG CAP PO SCH ×2 (11:43→21:11)
[2021-12-03] MEDS: CLINDAMYCIN HCL 150 MG CAP PO SCH ×2 (11:58→18:11)
[2021-12-03] MEDS: BREO INH SCH (14:44)
--- NOTE | 2021-12-03 16:15 | Hospitalist Progress Note ---
Date of Service December 03, 2021 Assessment & Plan (1) Acute on chronic respiratory failure with hypoxia: Plan: 76-year-old female w/ PMH of type 2 diabetes, hypothyroidism, hyperlipidemia, COPD, on chronic oxygen baseline 3 liters oxygen, sleep apnea not on CPAP as per the patient, paroxysmal atrial fibrillation, cor pulmonale, chronic essential hypertension, morbid obesity, irritable bowel syndrome, stage III chronic kidney disease, mixed stress and urge incontinence, chronic pain syndrome, TIA.Pt presented 11/28 with c/o SOB. Of note, patient was admitted in October with Covid pneumonia with acute on chronic respiratory failure with hypoxia at that time requiring up to 10 L oxygen. She was discharged on 11/20 on her home oxygen. She is being managed for the following: #. Acute on chronic respiratory failure likely 2/2 ongoing COVID infection -- resolved #. REcent COVID infection - see above Baseline oxygen is 3 L at rest and 4 L with activity Patient requiring 6 L oxygen at presentation. For recent hospitalization see above. Admitting CXR: Partial interval resolution of interstitial and alveolar opacities bilaterally. No new alveolar opacities. Admitting CT chest: Patchy interstitial and alveolar opacities bilaterally most characteristic of an inflammatory process. No evidence of interstitial edema or pulmonary edema. US venous Doppler left: No evidence of DVT. Could be long Covid, dexamethasone 11/29 - 12/02, patient started on clindamycin and doxycycline [patient has multiple drug allergies], patient does complain of cough with yellow sputum which is getting better after starting antibiotic --> patient had rash at infusion site likely infiltration rather than reaction---> antibiotics changed to p.o. form to complete 5 days. Pulmonology evaluated the patient: Recommends discontinuing PO steroid, recommends addition of Incruse Ellipta and avoid overuse of albuterol given her history of A. fib and patient not willing to take Cardizem and cardiology having hard time controlling her heart rate. 12/02---> discussed with pulmonology and cardiology regarding review of heart rate control medications and need for inhalation medications for her COPD. Cardiology to review her medication again today. Pulmonology recommended Incruse Ellipta but patient denied based on the fact that she had adverse reaction to tiotropium and ipratropium in the past. Pulmonology made aware. Since she has multiple complaints with multiple medications including Cardizem, anticholinergics and limitation to use beta agonist inhalation due to tricky heart rate control, hence discussed with cardiology and pulmonology. Appreciate their recommendations. 12/03---> discussed with patient and her son Baltazar regarding starting her on long-acting inhalation medications Symbicort rather than using albuterol. Explained the mechanism of action of each constituent and likely side effects of its constituents to both of them. In fact spent 27:44 minutes with her son Baltazar over the phone outside of time spent on explaining the same thing to the patient. Baltazar would want her mom to get albuterol whenever she needs, explained him that albuterol is supposed to be rescue inhaler and there should be a long-term medication in place to be used regularly. Explained him that there will be suboptimal control of her COPD with albuterol only, and she needs a close follow-up with lung doctor as OP which he has not been able to maintain in the last couple of months per him. They are in agreement with initiating Symbicort while in hospital. Also Baltazar was wondering why the patient is weak, between her comorbidities and desire to work with physical therapy it is hard to point to any specific medical condition that is responsible for this. She recently had COVID. She will need to continuously work with physical therapy as an outpatient and likely will benefit from SNF placement, same was communicated to him. It seems that patient and her son Baltazar would like to take her to home despite PT/OT recommending SNF placement. #. Mild elevation of troponin #. CHF - f/u BNP Troponin elevated at 0.25, following trends negative. Likely demand ischemia. EKG reviewed, no acute ST or T changes. QTC prolonged at 517. 11/29 echo reviewed: Ejection fraction greater than 70%, hyperdynamic left ventricle with normal left ventricle size and normal left ventricular wall thickness. Continue with home cardiac medications including spironolactone and torsemide 3. Chronic kidney disease stage III, creatinine 1.2, seems to be baseline. We will follow the labs. 4. Hypomagnesia, monitor and replete. 5. History of sleep apnea, on oxygen in the nighttime. 6. History of diabetes: Holding home p.o. medication, continue with insulin sliding scale with blood sugars. 7. Hypothyroidism on Synthroid. 8. History of atrial fibrillation, on Cardizem, Tikosyn and Coreg. Last admission Cardizem was added and Coreg dose was adjusted. Not on anticoagulation. Xarelto was stopped because of history of hematochezia. We will monitor. Patient reports that she gets weak with Cardizem, cardiology updated, appreciate cardiology recommendation --> Cardizem was stopped and patient was in sinus in the 60s to 70s until 12/01, but had a brief run of atrial tachycardia on 12/02. 9. Lower extremity pain.US Doppler negative for DVT.. 10. History of chronic obstructive pulmonary disease. Continue home inhalers.Continue with nebs around the clock and p.r.n. 11. Chronic pain. Continue home pain medications. 12. Deep venous thrombosis prophylaxis: Placed on Lovenox. 13. Thrombocytopenia, platelets of 124 at admission, seems to be new. Resolved, could be from ongoing infection. 14 Anemia of chronic disease. Admitting hemoglobin 8.1, hemoglobin dropping to 7.5, FOBT sent, still on collected, iron profile done and iron was low, patient started on iron supplementation, follow-up with H&H daily. DISPOSITION: Closely monitor in tele floor. Level 1 full code. PT/OT prior to discharge. Social service to help with discharge planning. Awaiting placement. PT/OT recommending SNF, but looks like patient is not willing to go to SNF. CM to assist with DC planning. Patient stable for discharge. 12/02 -->Patient complains of having incomplete sleep studies 3-4 times in the past, last one being 4 years ago and wants to do another sleep study upon discharge. Will need sleep study set up upon discharge. 12/04 --> discussed about Symbicort with patient and her son [see above]. Patient denies Incruse Ellipta. Updated her son about her current status in detail, answered all his questions, he voiced understanding and was agreeable to the plan of care. Admission and Anticipated Discharge Date Admission Date: November 29, 2021 Subjective Patient seen and examined at bedside for acute on chronic respiratory failure likely secondary to long Covid. Patient lying in bed, on 3 L nasal cannula oxygen, NAD, reports eating okay. Patient reports minimal cough. Patient denies acute events overnight. Late ev ening yesterday, patient developed rash around the infusion site of antibiotic, hence antibiotic was held, likely due to infiltration rather than reaction. Patient denies any fever/chills/chest pain/palpitations/belly pain/other review of symptoms. Physical Exam Physical Exam: GENERAL: Alert and oriented x3. NAD, on 3L. HEENT: No pallor, no icterus. Pupils equal, round and reactive to light. Oral mucosa moist. NECK: No JVD, no neck masses. HEART: S1 and S2 heard. Regular rate and rhythm. No murmur, no gallop. RESPIRATORY SYSTEM: Normal AP diameter. No accessory muscle use. No wheezing, b/b crackles, decreased breath sounds ABDOMEN: Soft, bowel sounds present, nontender, no distention. CENTRAL NERVOUS SYSTEM: No facial droop. Speech is clear. Obeys simple commands. Moves extremities. EXTREMITIES: Trace BLE edema, no erythema seen. Urinary catheter with light yellow urine collection noted. Results & Data Results & Data ([facility]) Vital Signs (Past 12 Hours) Vital Signs Temp Pulse Resp BP Pulse Ox 12/03/21 15:29 36.7 C 65 20 123/64 98 12/03/21 11:14 64 20 98 12/03/21 10:58 36.4 C L 61 20 116/60 99 12/03/21 08:00 36.4 C L 63 18 121/74 98 12/03/21 06:08 64 26 H 94
[2021-12-03] MEDS: oxyCODONE HCL IR 5 MG TAB (IMMEDIATE RELEASE) PO PRN (18:11)
[2021-12-03] MEDS ORDERED: PANTOprazole 40 MG TAB PO SCH (21:00)
[2021-12-04] MEDS: oxyCODONE HCL IR 5 MG TAB (IMMEDIATE RELEASE) PO PRN ×2 (00:19→15:05)
[2021-12-04] MEDS: CLINDAMYCIN HCL 150 MG CAP PO SCH ×4 (00:19→18:23)
[2021-12-04] MEDS: ALBUTEROL HFA 8 GM INHALER INH PRN (05:46)
[2021-12-04] MEDS: LEVOTHYROXINE SODIUM 125 MCG TABLET PO SCH (05:47)
[2021-12-04 07:20] LABS: Hematocrit (blood only) 26.2 % (37-47); Hemoglobin 7.4 g/dL (12.0-16.0)
[2021-12-04] MEDS: FOLIC ACID 1 MG TAB PO SCH (08:36)
[2021-12-04] MEDS: FERROUS SULFATE 325 MG TAB PO SCH (08:36)
[2021-12-04] MEDS: carvediloL 3.125 MG TAB PO SCH (08:37)
[2021-12-04] MEDS: DOFETILIDE 125 MCG CAPSULE PO SCH ×2 (08:37→22:03)
[2021-12-04] MEDS: MULTIVITAMIN TAB PO SCH (08:37)
[2021-12-04] MEDS: CYANOCOBALAMIN (B-12) 500 MCG TABLET PO SCH (08:37)
[2021-12-04] MEDS: DOXYCYCLINE HYCLATE 100 MG CAP PO SCH ×2 (08:38→22:01)
[2021-12-04] MEDS: CHOLECALCIFEROL 1,000 UNITS 25 MCG TAB PO SCH (08:38)
[2021-12-04] MEDS: MAGNESIUM OXIDE 400 MG TAB PO SCH (08:38)
[2021-12-04] MEDS: TORSEMIDE 10 MG TAB PO SCH (08:38)
[2021-12-04] MEDS: HEPARIN SOD 5,000 UNIT/0.5 ML VIAL SQ SCH ×2 (08:40→20:44)
[2021-12-04] MEDS: PREMARIN VAG CRM 14 APPLN/30 GM TUBE PV SCH (08:40)
[2021-12-04] MEDS: BREO INH SCH (08:40)
[2021-12-04] MEDS: SPIRONOLACTONE 12.5 MG TAB PO SCH (08:41)
[2021-12-04] MEDS: BACLOFEN 10 MG TAB PO SCH ×2 (08:47→21:12)
[2021-12-04] MEDS: POTASSIUM CHLORIDE 10 MEQ TABCR PO SCH (08:47)
[2021-12-04] MEDS: oxyCODONE HCL 20 MG TABCR (OxyCONTIN) PO SCH ×2 (08:47→20:43)
[2021-12-04] MEDS: INSULIN ASPART PER UNIT SC SCH ×4 (08:58→22:16)
--- NOTE | 2021-12-04 10:07 | Pharmacy Report ---
Pharmacy Glycemic Sign Off Nt - Date of Service December 04, 2021 - Assessment & Plan ASSESSMENT: * Pharmacy consulted for glycemic management on 11/30 steroid-induced hyperglycemia. Steroids have been stopped. * BSG's have ranged 112-193 mg/dL over the last 24 hours (except for one elevated BSG at lunch yesterday due to refused AM Novolog). * Home metformin monotherapy scheduled to resume with dinner today. A1c is 7.9% on this regimen. * Carb ratio will be eliminated tomorrow when metformin on board. * Dr. Mcnally aware of above and that pharmacy is signing off PLAN FOR INPATIENT GLYCEMIC CONTROL: * No basal insulin * Metformin 500 mg po QDD to start today * Continue NovoLog per scale ACHS/Q6hrs while NPO * Goal range = 110 140 mg/dl * CF = 35 mg/dl/unit for now, then 30 mg/dL/unit tomorrow AM * CR = 1 unit for ever 15 g CHO consumed for now, then eliminate tomorrow AM * Pharmacy is signing off of glycemic consult and will no longer be making adjustments to inpatient regimen. Please feel free to re-consult if needed. Thank you.
[2021-12-04] MEDS: metFORMIN HCL 500 MG TAB PO SCH (17:20)
--- NOTE | 2021-12-04 19:04 | Hospitalist Progress Note ---
Date of Service December 04, 2021 Assessment & Plan (1) Acute on chronic respiratory failure with hypoxia: Plan: 76-year-old female w/ PMH of type 2 diabetes, hypothyroidism, hyperlipidemia, COPD, on chronic oxygen baseline 3 liters oxygen, sleep apnea not on CPAP as per the patient, paroxysmal atrial fibrillation, cor pulmonale, chronic essential hypertension, morbid obesity, irritable bowel syndrome, stage III chronic kidney disease, mixed stress and urge incontinence, chronic pain syndrome, TIA.Pt presented 11/28 with c/o SOB. Of note, patient was admitted in October with Covid pneumonia with acute on chronic respiratory failure with hypoxia at that time requiring up to 10 L oxygen. She was discharged on 11/20 on her home oxygen. She is being managed for the following: #. Acute on chronic respiratory failure likely 2/2 ongoing COVID infection -- resolved #. REcent COVID infection - see above Baseline oxygen is 3 L at rest and 4 L with activity Patient requiring 6 L oxygen at presentation. For recent hospitalization see above. Admitting CXR: Partial interval resolution of interstitial and alveolar opacities bilaterally. No new alveolar opacities. Admitting CT chest: Patchy interstitial and alveolar opacities bilaterally most characteristic of an inflammatory process. No evidence of interstitial edema or pulmonary edema. US venous Doppler left: No evidence of DVT. Could be long Covid, dexamethasone 11/29 - 12/02, patient started on clindamycin and doxycycline [patient has multiple drug allergies], patient does complain of cough with yellow sputum which is getting better after starting antibiotic --> patient had rash at infusion site likely infiltration rather than reaction---> antibiotics changed to p.o. form to complete 5 days. Pulmonology evaluated the patient: Recommends discontinuing PO steroid, recommends addition of Incruse Ellipta and avoid overuse of albuterol given her history of A. fib and patient not willing to take Cardizem and cardiology having hard time controlling her heart rate. 12/02---> discussed with pulmonology and cardiology regarding review of heart rate control medications and need for inhalation medications for her COPD. Cardiology to review her medication again today. Pulmonology recommended Incruse Ellipta but patient denied based on the fact that she had adverse reaction to tiotropium and ipratropium in the past. Pulmonology made aware. Since she has multiple complaints with multiple medications including Cardizem, anticholinergics and limitation to use beta agonist inhalation due to tricky heart rate control, hence discussed with cardiology and pulmonology. Appreciate their recommendations. 12/03---> discussed with patient and her son Baltazar regarding starting her on long-acting inhalation medications Symbicort rather than using albuterol. Explained the mechanism of action of each constituent and likely side effects of its constituents to both of them. In fact spent 27:44 minutes with her son Baltazar over the phone outside of time spent on explaining the same thing to the patient. Baltazar would want her mom to get albuterol whenever she needs, explained him that albuterol is supposed to be rescue inhaler and there should be a long-term medication in place to be used regularly. Explained him that there will be suboptimal control of her COPD with albuterol only, and she needs a close follow-up with lung doctor as OP which he has not been able to maintain in the last couple of months per him. They are in agreement with initiating Symbicort while in hospital. Also Baltazar was wondering why the patient is weak, between her comorbidities and desire to work with physical therapy it is hard to point to any specific medical condition that is responsible for this. She recently had COVID. She will need to continuously work with physical therapy as an outpatient and likely will benefit from SNF placement, same was communicated to him. It seems that patient and her son Baltazar would like to take her to home despite PT/OT recommending SNF placement. 12/04 --> patient had several runs of PATs in the morning, patient's Symbicort has already been stopped after one-time dose yesterday evening. #. CHF EKG reviewed, no acute ST or T changes. QTC prolonged at 517. 11/29 echo reviewed: Ejection fraction greater than 70%, hyperdynamic left ventricle with normal left ventricle size and normal left ventricular wall thickness. Continue with home cardiac medications including spironolactone and torsemide 3. Chronic kidney disease stage III, creatinine 1.2, seems to be baseline. We will follow the labs. 4. Hypomagnesia, monitor and replete. 5. History of sleep apnea, on oxygen in the nighttime. 6. History of diabetes: Holding home p.o. medication, continue with insulin sliding scale with blood sugars. 7. Hypothyroidism on Synthroid. 8. History of atrial fibrillation, on Cardizem, Tikosyn and Coreg. Last admission Cardizem was added and Coreg dose was adjusted. Not on anticoagulation. Xarelto was stopped because of history of hematochezia. We will monitor. Patient reports that she gets weak with Cardizem, cardiology updated, appreciate cardiology recommendation --> Cardizem was stopped and patient was in sinus in the 60s to 70s until 12/01, but had a brief runs of atrial tachycardia on multiple occasions afterwards. . 9. Lower extremity pain.US Doppler negative for DVT.. 10. History of chronic obstructive pulmonary disease. Continue home inhalers.Continue with nebs around the clock and p.r.n. 11. Chronic pain. Continue home pain medications. 12. Deep venous thrombosis prophylaxis: Placed on Lovenox. 13. Thrombocytopenia, platelets of 124 at admission, seems to be new. Resolved, could be from ongoing infection. 14 Anemia of chronic disease. Admitting hemoglobin 8.1, hemoglobin dropping to 7.5, FOBT sent, still on collected, iron profile done and iron was low, patient started on iron supplementation, follow-up with H&H daily. DISPOSITION: Closely monitor in tele floor. Level 1 full code. PT/OT prior to discharge. Social service to help with discharge planning. Awaiting placement. PT/OT recommending SNF, but looks like patient is not willing to go to SNF. CM to assist with DC planning. Patient stable for discharge. 12/02 -->Patient complains of having incomplete sleep studies 3-4 times in the past, last one being 4 years ago and wants to do another sleep study upon discharge. Will need sleep study set up upon discharge. 12/04 --> discussed about Symbicort with patient and her son [see above]. Saravanan nunez denies Incruse Ellipta. Updated her son about her current status in detail, answered all his questions, he voiced understanding and was agreeable to the plan of care. Admission and Anticipated Discharge Date Admission Date: November 29, 2021 Subjective Patient seen and examined at bedside for acute on chronic respiratory failure likely secondary to long Covid. Patient lying in bed, on 3 L nasal cannula oxygen, NAD, reports eating okay. Patient reports minimal cough. Pt had diarrhea overnight, c diff came back neg. Pt felt overall better. Per telemetry review, patient has multiple runs of PATs ranging 5 to 10 seconds, will stop her Symbicort. Patient denies any fever/chills/chest pain/palpitations/belly pain/other review of symptoms. Physical Exam Physical Exam: GENERAL: Alert and oriented x3. NAD, on 3L. HEENT: No pallor, no icterus. Pupils equal, round and reactive to light. Oral mucosa moist. NECK: No JVD, no neck masses. HEART: S1 and S2 heard. Regular rate and rhythm. No murmur, no gallop. RESPIRATORY SYSTEM: Normal AP diameter. No accessory muscle use. No wheezing, b/b crackles, decreased breath sounds ABDOMEN: Soft, bowel sounds present, nontender, no distention. CENTRAL NERVOUS SYSTEM: No facial droop. Speech is clear. Obeys simple commands. Moves extremities. EXTREMITIES: Trace BLE edema, no erythema seen. Urinary catheter with light yellow urine collection noted. Results & Data Results & Data ([facility]) Vital Signs (Past 12 Hours) Vital Signs Temp Pulse Pulse Resp BP Pulse Ox 12/04/21 15:23 88 12/04/21 15:18 36.6 C 74 20 119/64 100 12/04/21 12:00 36.8 C 65 18 107/54 L 98 12/04/21 08:00 36.4 C L 69 18 129/66 98 12/04/21 07:07 70
[2021-12-04] MEDS ORDERED: METOPROLOL TARTRATE 1 MG/ML VIAL IV PRN (20:03)
[2021-12-04 20:04] LABS: Magnesium 1.6 mg/dl (1.7-2.4); Troponin I < 0.03 ng/ml (0-0.04)
[2021-12-04] MEDS ORDERED: ALBUMIN 25% 100 mL 25 GM/100 ML VIAL IV ONE (20:15)
[2021-12-04 20:53] LABS: BUN Creatinine Ratio 16.2 (10-20); Calcium 7.6 mg/dl (8.5-10.1); Est GFR (African American) 46.8 ml/min; Est GFR (Non-African American) 40.4 ml/min; Potassium 3.9 mmol/L (3.5-5.1)
[2021-12-04 21:07] LABS: Basophils # (auto) 0.01 K/uL (0-0.2); Basophils % (auto) 0.2 %; Eosinophils # (auto) 0.05 K/uL (0-0.5); Hematocrit (blood only) 28.7 % (37-47); Hemoglobin 8.3 g/dL (12.0-16.0); Immature Granulocytes # (auto) 0.02 K/uL (0.00-0.02); Immature Granulocytes % (auto) 0.4 %; Lymphocytes # (auto) 0.95 K/uL (1.2-3.4); Lymphocytes % (auto) 18.7 %; Mean Corpuscular Hemoglobin 24.1 pg (25-34); Mean Corpuscular Hgb Conc 28.9 g/dL (32-36); Mean Corpuscular Volume 83.2 fL (80-100); Mean Platelet Volume 9.4 fL (7.4-10.4); Monocytes # (auto) 0.46 K/uL (0.11-0.59); Monocytes % (auto) 9.1 %; Neutrophils # (auto) 3.59 K/uL (1.4-6.5); Neutrophils % (auto) 70.6 %; Platelet Count 174 K/uL (130-400); RDW Standard Deviation 55.5 fL (36.4-46.3); Red Blood Count 3.45 M/uL (4.2-5.4); White Blood Count 5.08 K/uL (4.8-10.8)
[2021-12-04] MEDS: MAGNESIUM SULFATE / D5W 1 GM/100 ML BAG IV SCH ×3 (21:22→23:36)
[2021-12-04] MEDS ORDERED: POTASSIUM CHLORIDE CRTAB 20 MEQ TABCR PO STA (21:43)
[2021-12-04] MEDS ORDERED: DIGOXIN 250 MCG in SYRINGE 9 ML IV STA (22:08)
--- NOTE | 2021-12-04 22:28 | Electrocardiogram Report ---
Test Reason : Blood Pressure : / mmHG Vent. Rate : 082 BPM Atrial Rate : 082 BPM P-R Int : 292 ms QRS Dur : 068 ms QT Int : 390 ms P-R-T Axes : 038 -01 057 degrees QTc Int : 455 ms Poor data quality, interpretation may be adversely affected Atrial fibrillation Low voltage QRS Nonspecific ST abnormality Abnormal ECG When compared with ECG of 28-NOV-2021 22:55, Nonspecific T wave abnormality no longer evident in Inferior leads QT has shortened Confirmed by Jin Headley ([id number]) on 12/04/2021 10:27:32 PM Referred By: REFERRED SELF Confirmed By:Jin Headley
[2021-12-04 22:51] LABS: Albumin Level 2.8 gm/dl (3.4-5.0); Bilirubin,Total 0.3 mg/dl (0.2-1.0); Total Protein 5.4 gm/dl (6.0-8.3)
[2021-12-05] MEDS: CLINDAMYCIN HCL 150 MG CAP PO SCH ×4 (00:37→17:04)
[2021-12-05] MEDS ORDERED: DIGOXIN 250 MCG in SYRINGE 9 ML IV STA (00:41)
[2021-12-05 02:06] LABS: Appearance Urine Turbid (Clear); Bacteria Urine Automated 4+ (Negative); Bilirubin Urine Negative (Negative); Blood Urine Negative (Negative); Color Urine Yellow; Epithelial Cell Urine Auto >30 /lpf (0-5); Glucose Urine UA Negative (Negative); Ketones Urine Negative (Negative); Leukocyte Esterase Urine 3+ (Negative); Nitrite Urine Positive (Negative); RBC Urine Automated 0-4 /hpf (0-4); Specific Gravity Urine 1.016 (1.000-1.030); Urobilinogen Urine Negative (Negative); pH Urine >= 9.0 (4.5-7.5)
[2021-12-05 02:08] LABS: Protein Urine Trace (Negative)
[2021-12-05 02:14] LABS: Triple Phosphate Crystal Urine Present (None Prsent)
[2021-12-05] MEDS: oxyCODONE HCL IR 5 MG TAB (IMMEDIATE RELEASE) PO PRN ×2 (03:22→11:04)
[2021-12-05] MEDS: LEVOTHYROXINE SODIUM 125 MCG TABLET PO SCH (05:45)
[2021-12-05] MEDS ORDERED: ONDANSETRON INJ 2 MG/ML 2 ML VIAL IV ONE (07:27)
[2021-12-05 08:00] LABS: Hematocrit (blood only) 27.1 % (37-47); Hemoglobin 7.5 g/dL (12.0-16.0)
[2021-12-05] MEDS: carvediloL 3.125 MG TAB PO SCH ×2 (08:20→20:35)
[2021-12-05] MEDS: FERROUS SULFATE 325 MG TAB PO SCH (08:20)
[2021-12-05] MEDS: MULTIVITAMIN TAB PO SCH (08:21)
[2021-12-05] MEDS: TORSEMIDE 10 MG TAB PO SCH (08:21)
[2021-12-05] MEDS: BACLOFEN 10 MG TAB PO SCH ×2 (08:21→21:45)
[2021-12-05] MEDS: CHOLECALCIFEROL 1,000 UNITS 25 MCG TAB PO SCH (08:21)
[2021-12-05] MEDS: DOXYCYCLINE HYCLATE 100 MG CAP PO SCH (08:22)
[2021-12-05] MEDS: FOLIC ACID 1 MG TAB PO SCH (08:22)
[2021-12-05] MEDS: MAGNESIUM OXIDE 400 MG TAB PO SCH (08:22)
[2021-12-05] MEDS: CYANOCOBALAMIN (B-12) 500 MCG TABLET PO SCH (08:22)
[2021-12-05] MEDS: DOFETILIDE 125 MCG CAPSULE PO SCH ×2 (08:22→20:34)
--- NOTE | 2021-12-05 08:27 | CT Scan Report ---
CT SCAN OF THE ABDOMEN AND PELVIS WITHOUT IV CONTRAST CLINICAL HISTORY: Generalized abdominal pain. COMPARISON STUDY: Abdominal CT dated 08/28/2020. Chest CT dated 11/29/2021. TECHNIQUE: CT scan of the abdomen and pelvis is performed from the lung bases to the proximal femora. Images are reviewed in the axial, sagittal, and coronal planes. IV contrast was not administered for this examination due to a reported history of contrast allergy. A dose lowering technique was utiliz ed adhering to the principles of ALARA. CT DOSE: 1803.96 mGy.cm FINDINGS: Lung bases: The heart is normal in size and without pericardial effusion. The mitral annulus is dense ly calcified. Parenchymal scarring and airspace opacities are present at both lung bases. There is tr andressa right pleural effusion. There is a small hiatal hernia. Liver: The unenhanced liver is normal in size, contour, and attenuation. There is no intrahepatic brissa iary ductal dilatation. Gallbladder: Surgically absent noting clips in the gallbladder fossa. Spleen: Normal in size and attenuation. Pancreas: Atrophic and grossly unremarkable. Adrenal glands: Unremarkable. Kidneys: The unenhanced kidneys are atrophic and without hydronephrosis. There are no renal calculi i dentified. There is no evidence of contour deforming renal mass lesion. Abdominal vasculature: The abdominal aorta is normal in course and caliber noting mild atheroscleroti c calcification. Bowel: There is moderate colonic diverticulosis without CT evidence of acute diverticulitis. No bowel obstruction is identified. The appendix is not visualized. Peritoneum: There is no intraperitoneal free air or abdominal ascites. There is a fat-containing umbi lical hernia. Lymphadenopathy: None. Pelvic viscera: The bladder is decompressed around a Matos catheter and not well evaluated. There are nonspecific foci of intraluminal gas. There is mild pericystic infiltration. The uterus is surgicall y absent. No adnexal lesion is seen. Skeletal structures: The skeletal structures are osteopenic. There is [id number] lumbosacral sp ondylosis. No lytic or blastic lesions are seen. IMPRESSION: 1. Parenchymal scarring and airspace opacities are present both lung bases with a trace right pleural effusion. This is similar to 11/29/[address] 2. The bladder is decompressed around a Matos catheter and there is mild pericystic infiltration. Cor relate with urinalysis. 3. Moderate colonic diverticulosis without CT evidence of acute diverticulitis. 4. Additional findings as above. ACT 112: Negative or not required by law. Electronically signed by: Erick Bourgeois M.D. 12/05/2021 8:25 AM
[2021-12-05] MEDS: oxyCODONE HCL 20 MG TABCR (OxyCONTIN) PO SCH ×2 (08:30→20:36)
[2021-12-05] MEDS: INSULIN ASPART PER UNIT SC SCH ×4 (08:30→20:44)
[2021-12-05] MEDS: POTASSIUM CHLORIDE 10 MEQ TABCR PO SCH (08:30)
[2021-12-05] MEDS: HEPARIN SOD 5,000 UNIT/0.5 ML VIAL SQ SCH ×2 (08:32→20:33)
--- NOTE | 2021-12-05 10:28 | Electrocardiogram Report ---
Test Reason : Blood Pressure : / mmHG Vent. Rate : 134 BPM Atrial Rate : 051 BPM P-R Int : 000 ms QRS Dur : 080 ms QT Int : 300 ms P-R-T Axes : 000 -17 058 degrees QTc Int : 448 ms Atrial fibrillation with rapid ventricular response Low voltage QRS Borderline ECG When compared with ECG of 03-DEC-2021 18:45, Vent. rate has increased BY 52 BPM Confirmed by Flex Eason ([id number]) on 12/05/2021 10:28:21 AM Referred By: REFERRED SELF Confirmed By:Flex Eason
[2021-12-05] MEDS ORDERED: DICLOFENAC SOD 1% GEL 100 GM TUBE EXT PRN (13:30)
[2021-12-05] MEDS: metFORMIN HCL 500 MG TAB PO SCH (17:02)
--- NOTE | 2021-12-05 18:08 | Hospitalist Progress Note ---
Date of Service December 05, 2021 Assessment & Plan (1) Acute on chronic respiratory failure with hypoxia: Plan: 76-year-old female w/ PMH of type 2 diabetes, hypothyroidism, hyperlipidemia, COPD, on chronic oxygen baseline 3 liters oxygen, sleep apnea not on CPAP as per the patient, paroxysmal atrial fibrillation, cor pulmonale, chronic essential hypertension, morbid obesity, irritable bowel syndrome, stage III chronic kidney disease, mixed stress and urge incontinence, chronic pain syndrome, TIA.Pt presented 11/28 with c/o SOB. Of note, patient was admitted in October with Covid pneumonia with acute on chronic respiratory failure with hypoxia at that time requiring up to 10 L oxygen. She was discharged on 11/20 on her home oxygen. She is being managed for the following: #. Acute on chronic respiratory failure likely 2/2 ongoing COVID infection -- resolved #. REcent COVID infection - see above Baseline oxygen is 3 L at rest and 4 L with activity Patient requiring 6 L oxygen at presentation. For recent hospitalization see above. Admitting CXR: Partial interval resolution of interstitial and alveolar opacities bilaterally. No new alveolar opacities. Admitting CT chest: Patchy interstitial and alveolar opacities bilaterally most characteristic of an inflammatory process. No evidence of interstitial edema or pulmonary edema. US venous Doppler left: No evidence of DVT. Could be long Covid, dexamethasone 11/29 - 12/02, patient started on clindamycin and doxycycline [patient has multiple drug allergies], patient does complain of cough with yellow sputum which is getting better after starting antibiotic --> patient had rash at infusion site likely infiltration rather than reaction---> antibiotics changed to p.o. form to complete 5 days --> patient complained of stomach upset on 12/04 evening after the PO antibiotic doses, attributed it to allergic reaction, refused further antibiotic. Patient has completed 5 days of antibiotic. We will monitor her off antibiotic at this point. Patient made aware/educated that this is more of a side effect rather than an allergic reaction but patient was adamant on not taking the antibiotic in future. Pulmonology evaluated the patient: Recommends discontinuing PO steroid, recommen ds addition of Incruse Ellipta and avoid overuse of albuterol given her history of A. fib and patient not willing to take Cardizem and cardiology having hard time controlling her heart rate. Patient refused Incruse Ellipta Patient refused Incruse Ellipta. 12/03---> discussed with patient and her son Baltazar regarding starting her on long-acting inhalation medications Symbicort rather than using albuterol. Explained the mechanism of action of each constituent and likely side effects of its constituents to both of them. In fact spent 27:44 minutes with her son Baltazar over the phone outside of time spent on explaining the same thing to the patient. Baltazar would want her mom to get albuterol whenever she needs, explained him that albuterol is supposed to be rescue inhaler and there should be a long-term medication in place to be used regularly. Explained him that there will be suboptimal control of her COPD with albuterol only, and she needs a close follow-up with lung doctor as OP which he has not been able to maintain in the last couple of months per him. They are in agreement with initiating Symbicort while in hospital. Also Baltazar was wondering why the patient is weak, between her comorbidities and desire to work with physical therapy it is hard to point to any specific medical condition that is responsible for this. She recently had COVID. She will need to continuously work with physical therapy as an outpatient and likely will benefit from SNF placement, same was communicated to him. It seems that patient and her son Baltazar would like to take her to home despite PT/OT recommending SNF placement. 12/04 --> patient had several runs of PATs in the morning, patient's Symbicort has already been stopped after one-time dose yesterday evening. Pt had afib rvr in the eveneing requiring iv digoxin doses, currently rate controlled. #. CHF EKG reviewed, no acute ST or T changes. QTC prolonged at 517. 11/29 echo reviewed: Ejection fraction greater than 70%, hyperdynamic left ventricle with normal left ventricle size and normal left ventricular wall thickness. Continue with home cardiac medications including spironolactone and torsemide 3. Chronic kidney disease stage III, creatinine 1.2, seems to be baseline. We will follow the labs. 4. Hypomagnesia, monitor and replete. 5. History of sleep apnea, on oxygen in the nighttime. 6. History of diabetes: Holding home p.o. medication, continue with insulin sliding scale with blood sugars. 7. Hypothyroidism on Synthroid. 8. History of atrial fibrillation, on Cardizem, Tikosyn and Coreg. Last admission Cardizem was added and Coreg dose was adjusted. Not on anticoagulation. Xarelto was stopped because of history of hematochezia. We will monitor. Patient reports that she gets weak with Cardizem, cardiology updated, appreciate cardiology recommendation --> Cardizem was stopped and patient was in sinus in the 60s to 70s until 12/01, but had a brief runs of atrial tachycardia on multiple occasions afterwards and afib rvr in the evening of 12/05. Pt not willing to be back on cardizem. 9. Lower extremity pain.US Doppler negative for DVT.. 10. History of chronic obstructive pulmonary disease. Continue home inhalers.Continue with nebs around the clock and p.r.n. 11. Chronic pain. Continue home pain medications. 12. Deep venous thrombosis prophylaxis: Placed on Lovenox. 13. Thrombocytopenia, platelets of 124 at admission, seems to be new. Resolved, could be from ongoing infection. 14 Anemia of chronic disease. Admitting hemoglobin 8.1, hemoglobin dropped to low sevens. 12/03FOBT negative., iron profile done and iron was low, patient started on iron supplementation, follow-up with H&H daily. DISPOSITION: Closely monitor in tele floor. Level 1 full code. PT/OT prior to discharge. Social service to help with discharge planning. Awaiting placement. 12/02 -->Patient complains of having incomplete sleep studies 3-4 times in the past, last one being 4 years ago and wants to do another sleep study upon discharge. Will need sleep study set up upon discharge. 12/04 --> discussed about Symbicort with patient and her son [see above]. Patient denies Incruse Ellipta. Updated her son about her current status in detail, answered all his questions, he voiced understanding and was agreeable to the plan of care. Admission and Anticipated Discharge Date Admission Date: November 29, 2021 Subjective Patient seen and examined at bedside for acute on chronic respiratory failure likely secondary to long Covid. Patient lying in bed, on 3 L nasal cannula oxygen, NAD, reports eating okay. Overnight patient had A. fib RVR requiring IV digoxin. Patient also had a stomach upset after getting her antibiotic yesterday evening and she attributes it to allergic reaction, patient is already on antibiotic for multiple days, she reports her stomach upset was immediately relieved by taking yogurt. She refuses any further antibiotics. Patient denies any fever/chills/chest pain/palpitations/belly pain/other review of symptoms. Physical Exam Physical Exam: GENERAL: Alert and oriented x3. NAD, on 3L. HEENT: No pallor, no icterus. Pupils equal, round and reactive to light. Oral mucosa moist. NECK: No JVD, no neck masses. HEART: S1 and S2 heard. Regular rate and rhythm. No murmur, no gallop. RESPIRATORY SYSTEM: Normal AP diameter. No accessory muscle use. No wheezing, b/b crackles, decreased breath sounds ABDOMEN: Soft, bowel sounds present, nontender, no distention. CENTRAL NERVOUS SYSTEM: No facial droop. Speech is clear. Obeys simple commands. Moves extremities. EXTREMITIES: Trace BLE edema, no erythema seen. Urinary catheter with light yellow urine collection noted. Results & Data Results & Data ([facility]) Vital Signs (Past 12 Hours) Vital Signs Temp Pulse Pulse Resp BP Pulse Ox 12/05/21 16:00 36.1 C L 61 18 96/53 L 97 12/05/21 15:56 60 12/05/21 11:43 36.7 C 58 L 18 100/55 L 98 12/05/21 08:08 36.5 C 73 20 115/61 98 12/05/21 07:13 69
[2021-12-06] MEDS: LEVOTHYROXINE SODIUM 125 MCG TABLET PO SCH (05:46)
[2021-12-06 07:24] LABS: Hematocrit (blood only) 27.9 % (37-47); Hemoglobin 7.7 g/dL (12.0-16.0)
[2021-12-06 07:33] LABS: BUN Creatinine Ratio 16.3 (10-20); Calcium 8.1 mg/dl (8.5-10.1); Creatinine Clr Calc Pharmacy 50.7 ml/min; Est GFR (African American) 47.2 ml/min; Est GFR (Non-African American) 40.8 ml/min; Potassium 4.3 mmol/L (3.5-5.1)
[2021-12-06] MEDS: oxyCODONE HCL 20 MG TABCR (OxyCONTIN) PO SCH ×2 (08:10→21:50)
[2021-12-06] MEDS: INSULIN ASPART PER UNIT SC SCH ×4 (08:10→23:10)
[2021-12-06] MEDS: BACLOFEN 10 MG TAB PO SCH ×2 (08:15→21:51)
[2021-12-06] MEDS: TORSEMIDE 10 MG TAB PO SCH (08:16)
[2021-12-06] MEDS: FERROUS SULFATE 325 MG TAB PO SCH (08:16)
[2021-12-06] MEDS: carvediloL 3.125 MG TAB PO SCH ×2 (08:16→21:50)
[2021-12-06] MEDS: MULTIVITAMIN TAB PO SCH (08:17)
[2021-12-06] MEDS: CYANOCOBALAMIN (B-12) 500 MCG TABLET PO SCH (08:17)
[2021-12-06] MEDS: CHOLECALCIFEROL 1,000 UNITS 25 MCG TAB PO SCH (08:17)
[2021-12-06] MEDS: MAGNESIUM OXIDE 400 MG TAB PO SCH (08:17)
[2021-12-06] MEDS: FOLIC ACID 1 MG TAB PO SCH (08:17)
[2021-12-06] MEDS: DOFETILIDE 125 MCG CAPSULE PO SCH ×2 (08:17→21:49)
[2021-12-06] MEDS: SPIRONOLACTONE 12.5 MG TAB PO SCH (08:17)
[2021-12-06] MEDS: HEPARIN SOD 5,000 UNIT/0.5 ML VIAL SQ SCH ×2 (08:18→21:56)
[2021-12-06] MEDS: POTASSIUM CHLORIDE 10 MEQ TABCR PO SCH (08:26)
[2021-12-06] MEDS: PREMARIN VAG CRM 14 APPLN/30 GM TUBE PV SCH (08:27)
[2021-12-06] MEDS ORDERED: PROMETHAZINE HCL 12.5 MG in SODIUM CHLORIDE 0.9% 50 ML IV PRN (09:27)
[2021-12-06] MEDS: PANTOprazole 40 MG TAB PO SCH (12:16)
[2021-12-06] MEDS: oxyCODONE HCL IR 5 MG TAB (IMMEDIATE RELEASE) PO PRN (13:04)
--- NOTE | 2021-12-06 14:25 | Hospitalist Progress Note ---
Date of Service December 06, 2021 Assessment & Plan (1) Acute on chronic respiratory failure with hypoxia: Plan: 76-year-old female w/ PMH of type 2 diabetes, hypothyroidism, hyperlipidemia, COPD, on chronic oxygen baseline 3 liters oxygen, sleep apnea not on CPAP as per the patient, paroxysmal atrial fibrillation, cor pulmonale, chronic essential hypertension, morbid obesity, irritable bowel syndrome, stage III chronic kidney disease, mixed stress and urge incontinence, chronic pain syndrome, TIA.Pt presented 11/28 with c/o SOB. Of note, patient was admitted in October with Covid pneumonia with acute on chronic respiratory failure with hypoxia at that time requiring up to 10 L oxygen. She was discharged on 11/20 on her home oxygen. She is being managed for the following: Acute on chronic respiratory failure likely 2/2 ongoing COVID infection -- re solved Complicated by COPD and sleep apnea Baseline oxygen is 3 L at rest and 4 L with activity Patient requiring 6 L oxygen at presentation. Admitting CXR: Partial interval resolution of interstitial and alveolar opacities bilaterally. No new alveolar opacities. Admitting CT chest: Patchy interstitial and alveolar opacities bilaterally most characteristic of an inflammatory process. No evidence of interstitial edema or pulmonary edema. Has had full treatment of COVID-19 infection during her recent admission to the hospital Received intravenous antibiotic with clindamycin and doxycycline to cover possible superinfection and completed the course of 5 days Appreciate pulmonary input and recommendation Ambulatory dysfunction Has had PT and OT evaluation Recommended SNF She does not want to go-we will try to persuade (2) Cushingoid side effect of steroids: Plan: Pulmonology evaluated the patient: Recommends discontinuing PO steroid, recommends addition of Incruse Ellipta and avoid overuse of albuterol given her history of A. fib and patient not willing to take Cardizem and cardiology having hard time controlling her heart rate. Patient refused Incruse Ellipta Patient refused Incruse Ellipta. (3) COPD (chronic obstructive pulmonary disease): Plan: No evidence of any exacerbation Continue current management (4) ZEYAD (obstructive sleep apnea): Plan: Has been noncompliant (5) Paroxysmal atrial fibrillation: Plan: History of atrial fibrillation, on Cardizem, Tikosyn and Coreg. Last admission Cardizem was added and Coreg dose was adjusted. Not on anticoagulation. Xarelto was stopped because of history of hematochezia. We will monitor. Patient reports that she gets weak with Cardizem, cardiology updated, appreciate cardiology recommendation --> Cardizem was stopped and patient was in sinus in the 60s to 70s until 12/01, but had a brief runs of atrial tachycardia on multiple occasions afterwards and afib rvr in the evening of 12/05. Pt not willing to be back on cardizem. Denies any cardiac symptoms and the heart rate is controlled (6) DM type 2 (diabetes mellitus, type 2): Plan: SSI Blood sugar remains stable (7) Chronic diastolic CHF (congestive heart failure): Plan: EKG reviewed, no acute ST or T changes. QTC prolonged at 517. 11/29 echo reviewed: Ejection fraction greater than 70%, hyperdynamic left ventricle with normal left ventricle size and normal left ventricular wall thickness. Continue with home cardiac medications including spironolactone and torsemide Does not have any signs and or symptoms of fluid overload (8) CKD (chronic kidney disease), stage III: Plan: Remains stable (9) Morbid obesity: Plan: Other significant medical conditions remained stabl Hypothyroidism on Synthroid. Lower extremity pain.US Doppler negative for DVT.. Chronic pain. Continue home pain medications. Deep venous thrombosis prophylaxis: Placed on Lovenox. Thrombocytopenia, platelets of 124 at admission, seems to be new. Resolved, could be from ongoing infection. Anemia of chronic disease. Admitting hemoglobin 8.1, hemoglobin dropped to low sevens. 12/03FOBT negative., iron profile done and iron was low, patient started on iron supplementation, follow-up with H&H daily. CODE STATUS Level 1 full code. We will update her son this afternoon Admission and Anticipated Discharge Date Admission Date: November 29, 2021 Subjective 12/06/2021 The patient was seen and examined in medical telemetry unit She remains stable and complains to have generalized weakness She wants to go home but the physical therapy recommended rehab Denies any increasing shortness of breath, palpitation or chest pain She does have some nausea which is controlled with intravenous Phenergan Review of Systems Review of Systems: All systems reviewed and are unremarkable except as noted below Gastrointestinal: Nausea without any vomiting Physical Exam Physical Exam: Lying in bed comfortably Constitutional: well developed, well nourished and + morbidly obese; not ill appearing Eyes: PERRL, conjunctivae normal, anicteric sclerae ENMT: external ear and nose normal, oropharynx normal Neck: trachea midline, no thyromegaly Respiratory: no respiratory distress Auscultation: + diminished lung sounds; no crackles Cardiovascular: Rate/Rhythm: regular rate and regular rhythm; not tachycardic Heart Sounds: normal S1 and normal S2; no murmur Extremities: + edema (Trace to 1+ edema bilaterally) Gastrointestinal (Abdomen): Inspection/Auscultation: normal bowel sounds; abdomen not distended Percussion/Palpation: abdomen soft; abdomen nontender Musculoskeletal: No acute arthritis in any joint Neurologic: Alert, awake and oriented x3. Generally weak but no focal neuro deficit Psychiatric: A+Ox3, euthymic affect Results & Data Results & Data ([facility]) Vital Signs (Past 12 Hours) Vital Signs Temp Pulse Pulse Resp BP BP Pulse Ox 12/06/21 11:14 36.4 C L 80 12 104/60 97 12/06/21 07:29 36.7 C 67 24 132/71 100 12/06/21 07:06 72 12/06/21 04:20 60 12/06/21 03:00 36.6 C 62 18 116/65 99 Laboratory Results Short CBC 12/06/21 Range/Units 06:46 Hgb 7.7 L (12.0-16.0) g/dL Hct 27.9 L (37-47) % BMP 12/06/21 06:46 Sodium 136 Potassium 4.3 Chloride 98 Carbon Dioxide 37 H BUN 21 Creatinine 1.29 H Glucose 164 H Calcium 8.1 L Medications Administered Current Inpatient Medications Acetaminophen (Acetaminophen 325 Mg Tab) 650 mg PO Q4H PRN PRN Reason: Pain or Fever Stop: 12/29/21 04:41 Last Admin: 12/03/21 22:14 Dose: 650 mg Documented by: Albuterol (Albuterol 0.083% Nebu Soln 3 Ml Vial) 2.5 mg INH Q4H PRN; Protocol PRN Reason: sob Stop: 12/29/21 04:41 Last Admin: 12/02/21 05:11 Dose: 2.5 mg Documented by: Albuterol (Albuterol Hfa 8 Gm Inhaler) 2 puffs INH Q6H PRN PRN Reason: Shortness Of Breath Stop: 12/29/21 04:41 Last Admin: 12/04/21 05:46 Dose: 2 puffs Documented by: Baclofen (Baclofen 10 Mg Tab) 5 mg PO BID [facility]EL[facility]ZA Stop: 12/29/21 08:59 Last Admin: 12/06/21 08:15 Dose: 5 mg Documented by: Benzonatate (Benzonatate 100 Mg Capsule) 100 mg PO TID PRN PRN Reason: Cough Stop: 12/29/21 04:41 Last Admin: 12/01/21 09:01 Dose: 100 mg Documented by: Carvedilol (Carvedilol 3.125 Mg Tab) 9.375 mg PO BID YELITZA Stop: 12/29/21 08:59 Last Admin: 12/06/21 08:16 Dose: 9.375 mg Documented by: Cyanocobalamin (Cyanocobalamin 500 Mcg Tablet (Vitamin B-12)) 500 mcg PO DAILY [facility]ELITZA Stop: 12/29/21 08:59 Last Admin: 12/06/21 08:17 Dose: 500 mcg Documented by: Dextrose (Dextrose 50% 50 Ml Syringe) 25 - 50 ml IV UD PRN; Protocol PRN Reason: Hypoglycemia Protocol Stop: 12/29/21 05:44 Last Admin: 12/02/21 16:13 Dose: 50 ml Documented by: Diclofenac Sodium (Diclofenac Sod 1% Gel 100 Gm Tube) 2 gm EXT TID PRN PRN Reason: Pain Stop: 01/04/22 13:59 Dofetilide (Dofetilide 125 Mcg Capsule) 250 mcg PO BID YELITZA Stop: 01/03/22 20:19 Last Admin: 12/06/21 08:17 Dose: 250 mcg Documented by: Estrogens Conjugated (Premarin Vag Crm 14 Appln/30 Gm Tube) 1 appln PV MoWeFr YELITZA Stop: 12/29/21 08:59 Last Admin: 12/06/21 08:27 Dose: 1 appln Documented by: Ferrous Sulfate (Ferrous Sulfate 325 Mg Tab) 325 mg PO QAM YELITZA Stop: 12/31/21 09:29 Last Admin: 12/06/21 08:16 Dose: 325 mg Documented by: Folic Acid (Folic Acid 1 Mg Tab) 1 mg PO DAILY YELITZA Stop: 12/29/21 08:59 Last Admin: 12/06/21 08:17 Dose: 1 mg Documented by: Glucagon (Glucagon For Inj 1 Mg Vial) 1 mg IM UD PRN; Protocol PRN Reason: Hypoglycemia Protocol Stop: 12/29/21 05:44 Glucose (Glucose 40% Gel 15 Gm Tube) 15 - 30 gm PO UD PRN; Protocol PRN Reason: Hypoglycemia Protocol Stop: 12/29/21 05:44 Glucose (Glucose 10 Tabs/Tube) 4 - 8 tabs PO UD PRN; Protocol PRN Reason: Hypoglycemia Protocol Stop: 12/29/21 05:44 Heparin Sodium (Porcine) (Heparin Sod 5,000 Unit/0.5 Ml Vial) 5,000 units SQ Q12 [facility] Stop: 01/01/22 20:59 Last Admin: 12/06/21 08:18 Dose: 5,000 units Documented by: Hydrocortisone (Hydrocortisone Hc 2.5% Crm 30gm Tube) 1 appln EXT BID PRN PRN Reason: hemorrhoid Stop: 12/29/21 04:41 Last Admin: 11/30/21 08:11 Dose: 1 appln Documented by: Promethazine HCl 12.5 mg/ (Sodium Chloride) 50.5 mls @ 202 mls/hr IV Q6H PRN PRN Reason: Nausea And Vomiting Stop: 01/05/22 09:26 Last Infusion: 12/06/21 10:19 Dose: Infused Documented by: Insulin Aspart (Insulin Aspart Per Unit) 0 units SC ACHS [facility] Stop: 01/04/22 07:29 Last Admin: 12/06/21 12:17 Dose: 3 units Documented by: Levothyroxine Sodium (Levothyroxine Sodium 125 Mcg Tablet) 125 mcg PO DAILYBB [facility] Stop: 12/29/21 06:29 Last Admin: 12/06/21 05:46 Dose: 125 mcg Documented by: Magnesium Oxide (Magnesium Oxide 400 Mg Tab) 400 mg PO DAILY [facility]ZA Stop: 12/29/21 08:59 Last Admin: 12/06/21 08:17 Dose: 400 mg Documented by: Meclizine HCl (Meclizine Hcl 25 Mg Tab) 25 mg PO Q8H PRN PRN Reason: dizziness Stop: 12/29/21 05:09 Metformin HCl (Metformin Hcl 500 Mg Tab) 500 mg PO QDD [facility] Stop: 01/03/22 16:29 Last Admin: 12/05/21 17:02 Dose: 500 mg Documented by: Miscellaneous (Carbohydrates For Hypoglycemia ) 15 - 30 gm PO UD PRN PRN Reason: Hypoglycemia Treatment Stop: 12/29/21 05:44 Last Admin: 11/30/21 17:21 Dose: 30 gm Documented by: Multivitamins (Multivitamin Tab) 1 tab PO DAILY [facility]ZA Stop: 12/29/21 08:59 Last Admin: 12/06/21 08:17 Dose: 1 tab Documented by: Nitroglycerin (Nitroglycerin Sl 0.4 Mg/Tab Tab) 0.4 mg SL UD PRN PRN Reason: Chest Pain Stop: 12/29/21 04:41 Oxycodone HCl (Oxycodone Hcl Ir 5 Mg Tab (Immediate Release)) 10 mg PO Q6H PRN PRN Reason: Pain Stop: 12/13/21 04:41 Last Admin: 12/06/21 13:04 Dose: 10 mg Documented by: Oxycodone HCl (Oxycodone Hcl 20 Mg Tabcr (Oxycontin)) 20 mg PO BID [facility]ZA Stop: 12/13/21 08:59 Last Admin: 12/06/21 08:10 Dose: 20 mg Documented by: Pantoprazole Sodium (Pantoprazole 40 Mg Tab) 40 mg PO DAILY YELITZA Stop: 01/05/22 10:29 Last Admin: 12/06/21 12:16 Dose: 40 mg Documented by: Polyethylene Glycol (Polyethylene (Miralax) 17 Gm Pack) 17 gm PO DAILY PRN PRN Reason: Constipation Stop: 12/29/21 04:41 Last Admin: 12/02/21 11:05 Dose: 17 gm Documented by: Potassium Chloride (Potassium Chloride 10 Meq Tabcr) 10 meq PO QAM [facility] Stop: 12/29/21 08:59 Last Admin: 12/06/21 08:26 Dose: 10 meq Documented by: Spironolactone (Spironolactone 12.5 Mg Tab) 12.5 mg PO MoWeFr [facility] Stop: 12/29/21 08:59 Last Admin: 12/06/21 08:17 Dose: 12.5 mg Documented by: Torsemide (Torsemide 10 Mg Tab) 10 mg PO QAM [facility] Stop: 12/29/21 08:59 Last Admin: 12/06/21 08:16 Dose: 10 mg Documented by: Vitamin D (Cholecalciferol 1,000 Units 25 Mcg Tab) 1,000 units PO DAILY [facility] Stop: 12/29/21 08:59 Last Admin: 12/06/21 08:17 Dose: 1,000 units Documented by: (1) COPD (chronic obstructive pulmonary disease) COPD type: unspecified COPD Qualified Code(s): J44.9 - Chronic obstructive pulmonary disease, unspecified
[2021-12-06] MEDS: metFORMIN HCL 500 MG TAB PO SCH (17:19)
[2021-12-07] MEDS: oxyCODONE HCL IR 5 MG TAB (IMMEDIATE RELEASE) PO PRN (03:21)
[2021-12-07] MEDS: ALBUTEROL HFA 8 GM INHALER INH PRN (03:22)
[2021-12-07] MEDS: LEVOTHYROXINE SODIUM 125 MCG TABLET PO SCH (07:00)
[2021-12-07] MEDS: MAGNESIUM OXIDE 400 MG TAB PO SCH (08:38)
[2021-12-07] MEDS: BACLOFEN 10 MG TAB PO SCH (08:38)
[2021-12-07] MEDS: FOLIC ACID 1 MG TAB PO SCH (08:38)
[2021-12-07] MEDS: MULTIVITAMIN TAB PO SCH (08:38)
[2021-12-07] MEDS: CHOLECALCIFEROL 1,000 UNITS 25 MCG TAB PO SCH (08:38)
[2021-12-07] MEDS: PANTOprazole 40 MG TAB PO SCH (08:38)
[2021-12-07] MEDS: carvediloL 3.125 MG TAB PO SCH (08:39)
[2021-12-07] MEDS: HEPARIN SOD 5,000 UNIT/0.5 ML VIAL SQ SCH (08:40)
[2021-12-07] MEDS: DOFETILIDE 125 MCG CAPSULE PO SCH (08:41)
[2021-12-07] MEDS: TORSEMIDE 10 MG TAB PO SCH (08:41)
[2021-12-07] MEDS: CYANOCOBALAMIN (B-12) 500 MCG TABLET PO SCH (08:41)
[2021-12-07] MEDS: FERROUS SULFATE 325 MG TAB PO SCH (08:41)
[2021-12-07] MEDS: INSULIN ASPART PER UNIT SC SCH ×2 (08:48→13:19)
[2021-12-07] MEDS: POTASSIUM CHLORIDE 10 MEQ TABCR PO SCH (08:49)
[2021-12-07] MEDS: oxyCODONE HCL 20 MG TABCR (OxyCONTIN) PO SCH (08:49)
--- NOTE | 2021-12-07 11:00 | Hospitalist Progress Note ---
Date of Service December 07, 2021 Assessment & Plan (1) Acute on chronic respiratory failure with hypoxia: Plan: 76-year-old female w/ PMH of type 2 diabetes, hypothyroidism, hyperlipidemia, COPD, on chronic oxygen baseline 3 liters oxygen, sleep apnea not on CPAP as per the patient, paroxysmal atrial fibrillation, cor pulmonale, chronic essential hypertension, morbid obesity, irritable bowel syndrome, stage III chronic kidney disease, mixed stress and urge incontinence, chronic pain syndrome, TIA.Pt presented 11/28 with c/o SOB. Of note, patient was admitted in October with Covid pneumonia with acute on chronic respiratory failure with hypoxia at that time requiring up to 10 L oxygen. She was discharged on 11/20 on her home oxygen. She is being managed for the following: Acute on chronic respiratory failure likely 2/2 ongoing COVID infection -- re solved Complicated by COPD and sleep apnea Baseline oxygen is 3 L at rest and 4 L with activity Patient requiring 6 L oxygen at presentation. Admitting CXR: Partial interval resolution of interstitial and alveolar opacities bilaterally. No new alveolar opacities. Admitting CT chest: Patchy interstitial and alveolar opacities bilaterally most characteristic of an inflammatory process. No evidence of interstitial edema or pulmonary edema. Has had full treatment of COVID-19 infection during her recent admission to the hospital Received intravenous antibiotic with clindamycin and doxycycline to cover possible superinfection and completed the course of 5 days Appreciate pulmonary input and recommendation Remains medically stable and saturating normally on 2 L of oxygen via nasal cannula-back to her baseline Ambulatory dysfunction Has had PT and OT evaluation Recommended SNF Discussed with the son and the patient herself She is agreeable to go to rehab for short-term She will be discharged this afternoon (2) Cushingoid side effect of steroids: Plan: Pulmonology evaluated the patient: Recommends discontinuing PO steroid, recommends addition of Incruse Ellipta and avoid overuse of albuterol given her history of A. fib and patient not willing to take Cardizem and cardiology having hard time controlling her heart rate. Patient refused Incruse Ellipta Patient refused Incruse Ellipta. (3) COPD (chronic obstructive pulmonary disease): Plan: No evidence of any exacerbation Continue current management (4) ZEYAD (obstructive sleep apnea): Plan: Has been noncompliant (5) Paroxysmal atrial fibrillation: Plan: History of atrial fibrillation, on Cardizem, Tikosyn and Coreg. Last admission Cardizem was added and Coreg dose was adjusted. Not on anticoagulation. Xarelto was stopped because of history of hematochezia. We will monitor. Patient reports that she gets weak with Cardizem, cardiology updated, appreciate cardiology recommendation --> Cardizem was stopped and patient was in sinus in the 60s to 70s until 12/01, but had a brief runs of atrial tachycardia on multiple occasions afterwards and afib rvr in the evening of 12/05. Pt not willing to be back on cardizem. Denies any cardiac symptoms and the heart rate is controlled (6) DM type 2 (diabetes mellitus, type 2): Plan: SSI Blood sugar remains stable (7) Chronic diastolic CHF (congestive heart failure): Plan: EKG reviewed, no acute ST or T changes. QTC prolonged at 517. 11/29 echo reviewed: Ejection fraction greater than 70%, hyperdynamic left ventricle with normal left ventricle size and normal left ventricular wall thickness. Continue with home cardiac medications including spironolactone and torsemide Does not have any signs and or symptoms of fluid overload (8) CKD (chronic kidney disease), stage III: Plan: Remains stable (9) Morbid obesity: Plan: Other significant medical conditions remained stabl Hypothyroidism on Synthroid. Lower extremity pain.US Doppler negative for DVT.. Chronic pain. Continue home pain medications. Deep venous thrombosis prophylaxis: Placed on Lovenox. Thrombocytopenia, platelets of 124 at admission, seems to be new. Resolved, could be from ongoing infection. Anemia of chronic disease. Admitting hemoglobin 8.1, hemoglobin dropped to low sevens. 12/03FOBT negative., iron profile done and iron was low, patient started on iron supplementation, follow-up with H&H daily. CODE STATUS Level 1 full code. She will be discharged to SNF this afternoon Admission and Anticipated Discharge Date Admission Date: November 29, 2021 Subjective 12/06/2021 The patient was seen and examined in medical telemetry unit She remains stable and complains to have generalized weakness She wants to go home but the physical therapy recommended rehab Denies any increasing shortness of breath, palpitation or chest pain She does have some nausea which is controlled with intravenous Phenergan 12/07/2021 Patient was seen and examined in medical telemetry unit She remains stable without any significant symptoms Has generalized weakness as before and has been getting PT and OT Review of Systems Review of Systems: All systems reviewed and are unremarkable except as noted below Gastrointestinal: Nausea without any vomiting Physical Exam Physical Exam: Lying in bed comfortably Constitutional: well developed, well nourished and + morbidly obese; not ill appearing Eyes: PERRL, conjunctivae normal, anicteric sclerae ENMT: external ear and nose normal, oropharynx normal Neck: trachea midline, no thyromegaly Respiratory: no respiratory distress Auscultation: + diminished lung sounds; no crackles Cardiovascular: Rate/Rhythm: regular rate and regular rhythm; not tachycardic Heart Sounds: normal S1 and normal S2; no murmur Extremities: + edema (Trace to 1+ edema bilaterally) Gastrointestinal (Abdomen): Inspection/Auscultation: normal bowel sounds; abdomen not distended Percussion/Palpation: abdomen soft; abdomen nontender Musculoskeletal: No acute arthritis in any joint Neurologic: Alert, awake and oriented x3. Generally weak but no focal neuro deficit Psychiatric: A+Ox3, euthymic affect Results & Data Results & Data ([facility]) Vital Signs (Past 12 Hours) Vital Signs Temp Pulse Pulse Resp BP Pulse Ox 12/07/21 07:45 72 12/07/21 07:02 36.5 C 74 20 116/45 L 98 12/07/21 03:10 36.6 C 66 20 107/58 L 98 Medications Administered Current Inpatient Medications Acetaminophen (Acetaminophen 325 Mg Tab) 650 mg PO Q4H PRN PRN Reason: Pain or Fever Stop: 12/29/21 04:41 Last Admin: 12/03/21 22:14 Dose: 650 mg Documented by: Albuterol (Albuterol 0.083% Nebu Soln 3 Ml Vial) 2.5 mg INH Q4H PRN; Protocol PRN Reason: sob Stop: 12/29/21 04:41 Last Admin: 12/02/21 05:11 Dose: 2.5 mg Documented by: Albuterol (Albuterol Hfa 8 Gm Inhaler) 2 puffs INH Q6H PRN PRN Reason: Shortness Of Breath Stop: 12/29/21 04:41 Last Admin: 12/07/21 03:22 Dose: 2 puffs Documented by: Baclofen (Baclofen 10 Mg Tab) 5 mg PO BID YELITZA Stop: 12/29/21 08:59 Last Admin: 12/07/21 08:38 Dose: 5 mg Documented by: Benzonatate (Benzonatate 100 Mg Capsule) 100 mg PO TID PRN PRN Reason: Cough Stop: 12/29/21 04:41 Last Admin: 12/01/21 09:01 Dose: 100 mg Documented by: Carvedilol (Carvedilol 3.125 Mg Tab) 9.375 mg PO BID YELITZA Stop: 12/29/21 08:59 Last Admin: 12/07/21 08:39 Dose: 9.375 mg Documented by: Cyanocobalamin (Cyanocobalamin 500 Mcg Tablet (Vitamin B-12)) 500 mcg PO DAILY YELITZA Stop: 12/29/21 08:59 Last Admin: 12/07/21 08:41 Dose: 500 mcg Documented by: Dextrose (Dextrose 50% 50 Ml Syringe) 25 - 50 ml IV UD PRN; Protocol PRN Reason: Hypoglycemia Protocol Stop: 12/29/21 05:44 Last Admin: 12/02/21 16:13 Dose: 50 ml Documented by: Diclofenac Sodium (Diclofenac Sod 1% Gel 100 Gm Tube) 2 gm EXT TID PRN PRN Reason: Pain Stop: 01/04/22 13:59 Dofetilide (Dofetilide 125 Mcg Capsule) 250 mcg PO BID [facility] Stop: 01/03/22 20:19 Last Admin: 12/07/21 08:41 Dose: 250 mcg Documented by: Estrogens Conjugated (Premarin Vag Crm 14 Appln/30 Gm Tube) 1 appln PV MoWeFr [facility] Stop: 12/29/21 08:59 Last Admin: 12/06/21 08:27 Dose: 1 appln Documented by: Ferrous Sulfate (Ferrous Sulfate 325 Mg Tab) 325 mg PO QAM [facility]ELITZA Stop: 12/31/21 09:29 Last Admin: 12/07/21 08:41 Dose: 325 mg Documented by: Folic Acid (Folic Acid 1 Mg Tab) 1 mg PO DAILY [facility] Stop: 12/29/21 08:59 Last Admin: 12/07/21 08:38 Dose: 1 mg Documented by: Glucagon (Glucagon For Inj 1 Mg Vial) 1 mg IM UD PRN; Protocol PRN Reason: Hypoglycemia Protocol Stop: 12/29/21 05:44 Glucose (Glucose 40% Gel 15 Gm Tube) 15 - 30 gm PO UD PRN; Protocol PRN Reason: Hypoglycemia Protocol Stop: 12/29/21 05:44 Glucose (Glucose 10 Tabs/Tube) 4 - 8 tabs PO UD PRN; Protocol PRN Reason: Hypoglycemia Protocol Stop: 12/29/21 05:44 Heparin Sodium (Porcine) (Heparin Sod 5,000 Unit/0.5 Ml Vial) 5,000 units SQ Q12 [facility] Stop: 01/01/22 20:59 Last Admin: 12/07/21 08:40 Dose: 5,000 units Documented by: Hydrocortisone (Hydrocortisone Hc 2.5% Crm 30gm Tube) 1 appln EXT BID PRN PRN Reason: hemorrhoid Stop: 12/29/21 04:41 Last Admin: 11/30/21 08:11 Dose: 1 appln Documented by: Promethazine HCl 12.5 mg/ (Sodium Chloride) 50.5 mls @ 202 mls/hr IV Q6H PRN PRN Reason: Nausea And Vomiting Stop: 01/05/22 09:26 Last Infusion: 12/06/21 10:19 Dose: Infused Documented by: Insulin Aspart (Insulin Aspart Per Unit) 0 units SC ACHS [facility] Stop: 01/04/22 07:29 Last Admin: 12/07/21 08:48 Dose: 1 units Documented by: Levothyroxine Sodium (Levothyroxine Sodium 125 Mcg Tablet) 125 mcg PO DAILYBB [facility] Stop: 12/29/21 06:29 Last Admin: 12/07/21 07:00 Dose: 125 mcg Documented by: Magnesium Oxide (Magnesium Oxide 400 Mg Tab) 400 mg PO DAILY [facility]EL[facility] Stop: 12/29/21 08:59 Last Admin: 12/07/21 08:38 Dose: 400 mg Documented by: Meclizine HCl (Meclizine Hcl 25 Mg Tab) 25 mg PO Q8H PRN PRN Reason: dizziness Stop: 12/29/21 05:09 Metformin HCl (Metformin Hcl 500 Mg Tab) 500 mg PO QDD [facility]EL[facility] Stop: 01/03/22 16:29 Last Admin: 12/06/21 17:19 Dose: 500 mg Documented by: Miscellaneous (Carbohydrates For Hypoglycemia ) 15 - 30 gm PO UD PRN PRN Reason: Hypoglycemia Treatment Stop: 12/29/21 05:44 Last Admin: 11/30/21 17:21 Dose: 30 gm Documented by: Multivitamins (Multivitamin Tab) 1 tab PO DAILY [facility]ELITZA Stop: 12/29/21 08:59 Last Admin: 12/07/21 08:38 Dose: 1 tab Documented by: Nitroglycerin (Nitroglycerin Sl 0.4 Mg/Tab Tab) 0.4 mg SL UD PRN PRN Reason: Chest Pain Stop: 12/29/21 04:41 Oxycodone HCl (Oxycodone Hcl Ir 5 Mg Tab (Immediate Release)) 10 mg PO Q6H PRN PRN Reason: Pain Stop: 12/13/21 04:41 Last Admin: 12/07/21 03:21 Dose: 10 mg Documented by: Oxycodone HCl (Oxycodone Hcl 20 Mg Tabcr (Oxycontin)) 20 mg PO BID [facility] Stop: 12/13/21 08:59 Last Admin: 12/07/21 08:49 Dose: 20 mg Documented by: Pantoprazole Sodium (Pantoprazole 40 Mg Tab) 40 mg PO DAILY [facility] Stop: 01/05/22 10:29 Last Admin: 12/07/21 08:38 Dose: 40 mg Documented by: Polyethylene Glycol (Polyethylene (Miralax) 17 Gm Pack) 17 gm PO DAILY PRN PRN Reason: Constipation Stop: 12/29/21 04:41 Last Admin: 12/02/21 11:05 Dose: 17 gm Documented by: Potassium Chloride (Potassium Chloride 10 Meq Tabcr) 10 meq PO QAM [facility] Stop: 12/29/21 08:59 Last Admin: 12/07/21 08:49 Dose: 10 meq Documented by: Spironolactone (Spironolactone 12.5 Mg Tab) 12.5 mg PO MoWeFr [facility] Stop: 12/29/21 08:59 Last Admin: 12/06/21 08:17 Dose: 12.5 mg Documented by: Torsemide (Torsemide 10 Mg Tab) 10 mg PO QAM [facility] Stop: 12/29/21 08:59 Last Admin: 12/07/21 08:41 Dose: 10 mg Documented by: Vitamin D (Cholecalciferol 1,000 Units 25 Mcg Tab) 1,000 units PO DAILY [facility] Stop: 12/29/21 08:59 Last Admin: 12/07/21 08:38 Dose: 1,000 units Documented by: (1) COPD (chronic obstructive pulmonary disease) COPD type: unspecified COPD Qualified Code(s): J44.9 - Chronic obstructive pulmonary disease, unspecified
--- NOTE | 2021-12-08 08:07 | Discharge Summary ---
Date of Service December 08, 2021 Admission HPI Per Admitting Provider DICTATED BY:Niko Cueva MD DATE OF ADMISSION: 11/29/2021. CHIEF COMPLAINT: Shortness of breath. HISTORY OF PRESENT ILLNESS: A 76-year-old female with past medical history significant for type 2 diabetes, hypothyroidism, hyperlipidemia, COPD, on chronic oxygen baseline 3 liters oxygen, sleep apnea not on CPAP as per the patient, paroxysmal atrial fibrillation, cor pulmonale, chronic essential hypertension, morbid obesity, irritable bowel syndrome, stage III chronic kidney disease, mixed stress and urge incontinence, chronic pain syndrome, history of TIA. Patient presents with shortness of breath. The patient was here in the hospital and was admitted on 11/08/2021 with COVID pneumonia, acute on chronic respiratory failure with hypoxia, at that time she was requiring 10L oxygen. She was out of the window for remdesivir and she was given dexamethasone 6 mg and was discharged on 11/20/2021 on her home oxygen. . For AFib she was on Coreg and Tikosyn per home regimen, her Xarelto, was stopped 9 months ago because of hematochezia. During hospitalization, she had some episodes of paroxysmal atrial fibrillation, Coreg was increased to 9.375 mg p.o. b.i.d. and Tikosyn was continued at discharge she was also placed on po cardizem.. She also showed ESBL in the urine. Infectious Disease was consulted. As she was asymptomatic, it was not treated. During hospitalization her chronic Matos was removed. She was recommended SNF but the patient went home and opted for home with home health. She was discharged in stable condition at baseline oxygen needs. The patient says since last couple of days, she was getting short of breath and cough bringing some whitish phlegm and some of it was yellow. She complained that when she was admitted to hospital last time, she was 266 pounds, at the time of discharge, she gained about 15 pounds and after going home, she is not able to put weight on her right leg and not able to ambulate even though Home health helped her. Her oxygen requireents increased Currently in ER she is requiring 6 liters of oxygen, baseline oxygen was 3 liters. She does have mild temperature spike. Chest x-ray showing pneumonia, multifocal. The patient denies any chest pain, denies any subjective fevers. No headache, no blurred visions, no runny nose, no sore throat. Appetite is okay. No nausea, no vomiting, no abdominal pain. Normal bowel and bladder movements. Admission Exam Per Admitting Provider GENERAL: The patient is morbidly obese, not in acute distress. VITAL SIGNS: Temperature 37.7, T-max 37.7, pulse 61, respiratory rate 18, blood pressure 137/67, oximetry on room air 100% on 6 liters. HEENT: Pupils equal, round and reactive to light. Oral mucosa moist. NECK: No JVD, no neck masses. CARDIOVASCULAR: S1 and S2 heard. Regular rate and rhythm. No murmur, no gallop. RESPIRATORY SYSTEM: Normal AP diameter. No accessory muscle use. No wheezing, no crackles. ABDOMEN: Soft, bowel sounds present, nontender, no distention. CENTRAL NERVOUS SYSTEM: Cranial nerves II through XII are grossly intact, nonfocal. EXTREMITIES: Mild edema present. Principal Diagnosis Acute on chronic respiratory failure with hypoxia, status post COVID-19 infection, COPD, ZEYAD, type 2 diabetes mellitus, chronic diastolic CHF, CKD, morbid obesity, ambulatory dysfunction, paroxysmal atrial fibrillation Discharge Exam Lying in bed comfortably Constitutional well developed, well nourished and + morbidly obese; not ill appearing Eyes PERRL, conjunctivae normal, anicteric sclerae ENMT external ear and nose normal, oropharynx normal Neck trachea midline, no thyromegaly Respiratory no respiratory distress Auscultation: + diminished lung sounds; no crackles Cardiovascular Rate/Rhythm: regular rate and regular rhythm; not tachycardic Heart Sounds: normal S1 and normal S2; no murmur Extremities: + edema (Trace to 1+ edema bilaterally) Gastrointestinal (Abdomen) Inspection/Auscultation: normal bowel sounds; abdomen not distended Percussion/Palpation: abdomen soft; abdomen nontender Psychiatric A+Ox3, euthymic affect Discharge Data Allergies Allergy/AdvReac Type Severity Reaction Status Date / Time aspirin Allergy Severe HIVES, SOB Verified 11/28/21 23:31 Iodinated Contrast Media Allergy Severe "CAUSED Verified 11/28/21 23:31 ASTHMA ATTACK" & HIVES ipratropium Allergy Severe SHORTNESS Verified 11/28/21 23:31 OF BREATH metaproterenol [From Alupent] Allergy Severe EYES AND Verified 11/28/21 23:31 FACE SWELLING, SEVERE WHEEZING NSAIDS (Non-Steroidal Allergy Severe Hives Verified 11/28/21 23:31 Anti-Inflamma Penicillins Allergy Severe SOB, HIVES Verified 11/28/21 23:31 sotalol Allergy Severe increased Verified 11/28/21 23:31 breathing problems Sulfa (Sulfonamide Allergy Severe Anaphylaxis Verified 11/28/21 23:31 Antibiotics) tiotropium Allergy Severe SYMPTOMS Verified 11/28/21 23:31 [From Spiriva with GOT [employer]SE [employer]] INSTEAD OF BETTER WITH BREATHING arformoterol Allergy Intermediate TACHYCARDIA Verified 11/28/21 23:31 aspartame Allergy Intermediate HIVES, Verified 11/28/21 23:31 ITCHY ciprofloxacin Allergy Intermediate WHEEZING, Verified 11/28/21 23:31 NAUSEA clarithromycin [From Biaxin] Allergy Intermediate Unknown, ? Verified 11/28/21 23:31 WHEEZING , OR NAUSEA ? Fish Containing Products Allergy Intermediate BODY CAN'T Verified 11/28/21 23:31 ABSORB fish derived Allergy Intermediate Unknown Verified 11/28/21 23:31 latex Allergy Intermediate ITCHY/RASH Verified 11/28/21 23:31 nickel Allergy Intermediate RASH & Verified 11/28/21 23:31 BLISTERS pioglitazone [From Actos] Allergy Intermediate RETAINED Verified 11/28/21 23:31 FLUID povidone Allergy Intermediate BLISTER Verified 11/28/21 23:31 WITH TAPE shellfish derived Allergy Intermediate BODY CAN'T Verified 11/28/21 23:31 ABSORB, "SMELL LIKE A FISH" stevioside [From Stevia] Allergy Intermediate Wheezing Verified 11/28/21 23:31 sucralose Allergy Intermediate Wheezing Verified 11/28/21 23:31 [From Splenda (sucralose)] adhesive Allergy Mild BLISTERS Verified 11/28/21 23:31 WITH TAPE apixaban [From Eliquis] Allergy Mild SEE NOTES Verified 11/28/21 23:31 BELOW banana Allergy Mild "FEELS Verified 11/28/21 23:31 LIKE PEACH FUZZ IN MOUTH" chlorhexidine Allergy Mild BLISTERY Verified 11/28/21 23:31 RASH clindamycin Allergy Mild rash Verified 12/02/21 23:20 doxycycline Allergy Mild rash Verified 12/02/21 23:17 psyllium [From Metamucil] AdvReac Intermediate bloating Verified 11/28/21 23:31 meperidine AdvReac Mild Gastrointestinal Verified 11/28/21 23:31 Upset, N/V metformin [From Riomet] AdvReac Mild DIARRHEA Verified 11/28/21 23:31 WITH MORE THAN 1 A DAY morphine AdvReac Mild Gastrointestinal Verified 11/28/21 23:31 Upset,N/V tapentadol [From Nucynta] AdvReac Mild Nausea and Verified 11/28/21 23:31 vomiting egg AdvReac Verified 12/06/21 11:34 Egg Derived AdvReac Verified 12/06/21 11:34 Consultations 11/29/21 01:08 ED Decision to Admit Stat 11/29/21 07:21 Consult Cardiology Routine 12/01/21 15:40 Consult Pulmonology Routine Ordered Studies 11/29/21 04:14 CT chest diagnostic wo con [facility] 11/29/21 05:54 US venous doppler LE BI [facility] 12/05/21 00:13 CT abd pelvis wo con [facility] Hospital Course (1) Acute on chronic respiratory failure with hypoxia: 76-year-old female w/ PMH of type 2 diabetes, hypothyroidism, hyperlipidemia, COPD, on chronic oxygen baseline 3 liters oxygen, sleep apnea not on CPAP as per the patient, paroxysmal atrial fibrillation, cor pulmonale, chronic essential hypertension, morbid obesity, irritable bowel syndrome, stage III chronic kidney disease, mixed stress and urge incontinence, chronic pain syndrome, TIA.Pt presented 11/28 with c/o SOB. Of note, patient was admitted in October with Covid pneumonia with acute on chronic respiratory failure with hypoxia at that time requiring up to 10 L oxygen. She was discharged on 11/20 on her home oxygen. She is being managed for the following: Acute on chronic respiratory failure likely 2/2 ongoing COVID infection -- resolved Complicated by COPD and sleep apnea Baseline oxygen is 3 L at rest and 4 L with activity Patient requiring 6 L oxygen at presentation. Admitting CXR: Partial interval resolution of interstitial and alveolar opacities bilaterally. No new alveolar opacities. Admitting CT chest: Patchy interstitial and alveolar opacities bilaterally most characteristic of an inflammatory process. No evidence of interstitial edema or pulmonary edema. Has had full treatment of COVID-19 infection during her recent admission to the hospital Received intravenous antibiotic with clindamycin and doxycycline to cover possible superinfection and completed the course of 5 days Appreciate pulmonary input and recommendation Remains medically stable and saturating normally on 2 L of oxygen via nasal cannula-back to her baseline Ambulatory dysfunction Has had PT and OT evaluation Recommended SNF Discussed with the son and the patient herself She is agreeable to go to rehab for short-term She will be discharged this afternoon (2) Cushingoid side effect of steroids: Pulmonology evaluated the patient: Recommends discontinuing PO steroid, recommends addition of Incruse Ellipta and avoid overuse of albuterol given her history of A. fib and patient not willing to take Cardizem and cardiology having hard time controlling her heart rate. Patient refused Incruse Ellipta Patient refused Incruse Ellipta. (3) COPD (chronic obstructive pulmonary disease): No evidence of any exacerbation Continue current management (4) ZEYAD (obstructive sleep apnea): Has been noncompliant (5) Paroxysmal atrial fibrillation: History of atrial fibrillation, on Cardizem, Tikosyn and Coreg. Last admission Cardizem was added and Coreg dose was adjusted. Not on anticoagulation. Xarelto was stopped because of history of hematochezia. We will monitor. Patient reports that she gets weak with Cardizem, cardiology updated, appreciate cardiology recommendation --> Cardizem was stopped and patient was in sinus in the 60s to 70s until 12/01, but had a brief runs of atrial tachycardia on multiple occasions afterwards and afib rvr in the evening of 12/05. Pt not willing to be back on cardizem. Denies any cardiac symptoms and the heart rate is controlled (6) DM type 2 (diabetes mellitus, type 2): SSI Blood sugar remains stable (7) Chronic diastolic CHF (congestive heart failure): EKG reviewed, no acute ST or T changes. QTC prolonged at 517. 11/29 echo reviewed: Ejection fraction greater than 70%, hyperdynamic left ventricle with normal left ventricle size and normal left ventricular wall thickness. Continue with home cardiac medications including spironolactone and torsemide Does not have any signs and or symptoms of fluid overload (8) CKD (chronic kidney disease), stage III: Remains stable (9) Morbid obesity: Other significant medical conditions remained stabl Hypothyroidism on Synthroid. Lower extremity pain.US Doppler negative for DVT.. Chronic pain. Continue home pain medications. Deep venous thrombosis prophylaxis: Placed on Lovenox. Thrombocytopenia, platelets of 124 at admission, seems to be new. Resolved, could be from ongoing infection. Anemia of chronic disease. Admitting hemoglobin 8.1, hemoglobin dropped to low sevens. 12/03FOBT negative., iron profile done and iron was low, patient started on iron supplementation, follow-up with H&H daily. CODE STATUS Level 1 full code. She will be discharged to SNF this afternoon Total Time Total Time Spent Total Time Spent (In Minutes): 40 minutes Discharge Plan Discharge Items Patient Disposition: Transfer [facility] Reason For Visit: SOB Discharge Diagnosis: Acute on chronic respiratory failure with hypoxia, status post COVID-19 infection, COPD, ZEYAD, type 2 diabetes mellitus, chronic diastolic CHF, CKD, morbid obesity, ambulatory dysfunction, paroxysmal atrial fibrillation Condition on Discharge: Fair Activity: Resume your previous activity Activity Comment: Continue PT and OT Non-emergency contact: Primary Care Provider Call non-emergency contact if: you have any medication questions and your symptoms worsen Follow-up/Referrals: Flex Barr MD [Primary Care Provider] - (Please make an appointment with your primary care provider within 7 days following discharge from the facility) Diet: Carb Consistent or DM2 and Heart Healthy Addtl Attending Provider Instructions: Please take precautions to avoid falls Continue PT and OT as advised Take your medications as advised Pending Studies at Discharge: No Stand-Alone Forms: My [facility] Skilled Items Patient informed of condition?: Yes DNR: No Discharge Level of Care: Skilled Communicable Disease: No Discharge Prognosis: Stable Lines: None Urinary Catheter: Yes Medications and DC Order Prescriptions: Continued albuterol sulfate 90 mcg/actuation HFA aerosol inhaler 2 inh INHALATION Q6H PRN (Reason: SOB) Qty: 3 RF: 5 albuterol sulfate 2.5 mg /3 mL (0.083 %) solution for nebulization 2.5 mg inhalation Q4H PRN (Reason: sob) Qty: 180 RF: 5 (DME) nebulizers Misc See Rx Instructions miscellaneous .MEDSUPPLY Qty: 1 RF: 0 polyethylene glycol 3350 [Miralax] 17 gram Powder In Packet 17 g PO QAM PRN (Reason: Constipation) RF: 0 ondansetron HCl 4 mg Tablet 4 mg PO Q8H PRN (Reason: Nausea) RF: 0 acetaminophen [Tylenol 8 Hour] 650 mg Tablet Extended Release 650 mg PO UD PRN (Reason: Pain) RF: 0 magnesium 200 mg Tablet 600 mg PO DAILY RF: 0 diclofenac sodium 2 % Solution In Packet 1 packet TOPICAL UD PRN (Reason: Pain) RF: 0 multivitamin Tablet 1 tab PO DAILY RF: 0 dofetilide 250 mcg capsule 250 mcg PO BID RF: 0 torsemide 10 mg Tablet 10 mg PO QAM RF: 0 potassium chloride 10 mEq Tablet Extended Release 10 meq PO QAM RF: 0 spironolactone 25 mg Tablet 12.5 mg PO 3XWK RF: 0 hydrocortisone [Proctosol HC] 2.5 % Cream With Perineal Applicator 1 applic [place] BID PRN (Reason: hemorrhoid) RF: 0 cyanocobalamin (vitamin B-12) 500 mcg Tablet 500 mcg PO DAILY RF: 0 meclizine 25 mg Tablet 25 mg PO Q8H PRN (Reason: dizziness) RF: 0 baclofen 10 mg Tablet 5 mg PO BID RF: 0 Premarin 0.625 mg/gram Cream 0.625 mg VAGINAL 3XWK RF: 0 metformin 500 mg Tablet Extended Release 24 Hr 500 mg PO QPM RF: 0 cholecalciferol (vitamin D3) 25 mcg (1,000 unit) Capsule 25 mcg PO DAILY RF: 0 ferrous fumarate-vitamin C 200 mg (66 mg iron)-125 mg Tablet 1 tab PO DAILY RF: 0 folic acid 1 mg Tablet 1 mg PO DAILY RF: 0 benzonatate 100 mg capsule 100 mg PO TID PRN (Reason: Cough) RF: 0 carvedilol 3.125 mg Tablet 9.375 mg PO BID Qty: 180 RF: 0 levothyroxine [Synthroid] 125 mcg Tablet 125 mcg PO DAILYBB Qty: 30 RF: 0 mupirocin 2 % ointment 1 applic topical BID PRN (Reason: FOR NASAL SORES) RF: 0 oxycodone 10 mg tablet 10 mg PO Q6H PRN (Reason: Pain) 3 Days Qty: 10 RF: 0 oxycodone [OxyContin] 20 mg tablet,oral only,ext.rel.12 hr 20 mg PO BID PRN (Reason: Pain) 4 Days Qty: 7 RF: 0 Changed pantoprazole 40 mg Tablet,Delayed Release (Dr/Ec) 40 mg PO DAILY Qty: 0 RF: 0 Discontinued diltiazem HCl 30 mg Tablet 30 mg PO TID Qty: 90 RF: 0 Discharge Orders: Discharge Order (Routine); Ordered 12/07/21 Ordered By: Lencho Coffey Admission Data Admit Date/Time: 11/29/21 03:39 Attending Provider: Lencho Coffey Admit Provider: Niko Cueva Primary Care Provider: Flex Barr Other Providers: [facility] ; Niko Cueva ; Clarence Burgess ; Jesus Manuel Wright ; Chris Mcnally Other Interventions: Discharge Summary Assessment (RN) Last Done: 12/07/21 13:05
== END 2021-12-07 13:54 | DRG 177 ==
LOC: ED 22:43 → SUATTDRO 11-29 03:39 → 2S 11-29 03:39 → 2N 12-02 22:47

== ENCOUNTER 2022-01-01 21:47 | Inpatient (IN) ==
[2022-01-01 22:58] LABS: Basophils # (auto) 0.02 K/uL (0-0.2); Basophils % (auto) 0.3 %; Eosinophils # (auto) 0.45 K/uL (0-0.5); Eosinophils % (auto) 6.1 %; Hematocrit (blood only) 29.8 % (37-47); Hemoglobin 8.8 g/dL (12.0-16.0); Immature Granulocytes # (auto) 0.02 K/uL (0.00-0.02); Immature Granulocytes % (auto) 0.3 %; Lymphocytes # (auto) 2.12 K/uL (1.2-3.4); Lymphocytes % (auto) 28.7 %; Mean Corpuscular Hemoglobin 25.6 pg (25-34); Mean Corpuscular Hgb Conc 29.5 g/dL (32-36); Mean Corpuscular Volume 86.6 fL (80-100); Mean Platelet Volume 9.3 fL (7.4-10.4); Monocytes # (auto) 0.93 K/uL (0.11-0.59); Monocytes % (auto) 12.6 %; Neutrophils # (auto) 3.84 K/uL (1.4-6.5); Platelet Count 185 K/uL (130-400); RDW Coefficient of Variation 20.8 % (11.5-14.5); RDW Standard Deviation 65.9 fL (36.4-46.3); Red Blood Count 3.44 M/uL (4.2-5.4); White Blood Count 7.38 K/uL (4.8-10.8)
[2022-01-01 23:04] LABS: Partial Thromboplastin Ratio 0.9; Partial Thromboplastin Time 24.2 Seconds (21.0-31.0); Prothrombin Time 10.6 Seconds (9.0-12.0)
--- NOTE | 2022-01-01 23:13 | Emergency Department Note ---
History of Present Illness General Chief complaint: Shortness of Breath/Dyspnea Time Seen by Provider: 01/01/22 22:50 History of Present Illness Maximum Pain Intensity: 7 76-year-old female presents emergency department with increased bilateral lower extremity edema over the past month. Patient was recently discharged at her. Patient states that she has been home and continues to have increased swelling of the bilateral lower extremities. Patient denies any significant shortness of breath. She takes torsemide and spironolactone. Patient denies chest pain denies nausea vomiting denies abdominal pain. There are no other mitigating or alleviating factors Home Medications Medication Instructions Recorded Confirmed Type baclofen 10 mg tablet 5 mg PO BID 09/12/20 01/02/22 History cholecalciferol (vitamin D3) 25 25 mcg PO DAILY 09/12/20 01/02/22 History mcg (1,000 unit) capsule conjugated estrogens 0.625 mg/gram 0.625 mg VAGINAL 3XWK 09/12/20 01/02/22 History vaginal cream (Premarin) cyanocobalamin (vitamin B-12) 500 500 mcg PO DAILY 09/12/20 01/02/22 History mcg tablet dofetilide 250 mcg capsule 250 mcg PO BID 09/12/20 01/02/22 History hydrocortisone 2.5 % topical cream 1 applic [place] BID PRN 09/12/20 01/02/22 History with perineal applicator (Proctosol HC) meclizine 25 mg tablet 25 mg PO Q8H PRN 09/12/20 01/02/22 History metformin 500 mg tablet,extended 500 mg PO QPM 09/12/20 01/02/22 History release 24 hr multivitamin 1 tab PO DAILY 09/12/20 01/02/22 History potassium chloride 10 mEq 10 meq PO QAM 09/12/20 01/02/22 History tablet,extended release spironolactone 25 mg tablet 12.5 mg PO 3XWK 09/12/20 01/02/22 History torsemide 10 mg tablet 10 mg PO QAM 09/12/20 01/02/22 History acetaminophen 650 mg 650 mg PO UD PRN 09/28/20 01/02/22 History tablet,extended release (Tylenol 8 Hour) diclofenac sodium 2 % topical 1 packet TOPICAL UD PRN 09/28/20 01/02/22 History solution in packet magnesium 200 mg tablet 600 mg PO DAILY 09/28/20 01/02/22 History ondansetron HCl 4 mg tablet 4 mg PO Q8H PRN 09/28/20 01/02/22 History polyethylene glycol 3350 17 gram 17 g PO QAM PRN 09/28/20 01/02/22 History oral powder packet (Miralax) albuterol sulfate 90 mcg/actuation 2 inh INHALATION Q6H PRN #3 inhaler 11/11/20 01/02/22 Rx aerosol inhaler ferrous fumarate-vitamin C 200 mg 1 tab PO DAILY 03/01/21 01/02/22 History (66 mg iron)-125 mg tablet folic acid 1 mg tablet 1 mg PO DAILY 03/01/21 11/28/21 History nebulizers #1 ea 05/11/21 11/08/21 Rx albuterol sulfate 2.5 mg INHALATION Q4H PRN #180 ml 09/27/21 11/28/21 Rx benzonatate 100 mg capsule 100 mg PO TID PRN 11/08/21 11/28/21 History carvedilol 3.125 mg tablet 9.375 mg PO BID #180 tab 11/20/21 01/02/22 Rx levothyroxine 125 mcg tablet 125 mcg PO DAILYBB #30 tab 11/20/21 01/02/22 Rx (Synthroid) mupirocin 2 % topical ointment 1 applic TOPICAL BID PRN 11/28/21 01/02/22 History oxycodone 10 mg tablet 10 mg PO Q6H PRN 3 Days #10 tab 12/07/21 Rx oxycodone 20 mg tablet,crush 20 mg PO BID PRN 4 Days #7 tab 12/07/21 Rx resistant,extended release 12 hr (OxyContin) pantoprazole 40 mg tablet,delayed 40 mg PO DAILY PRN 01/02/22 01/02/22 History release Allergies Allergy/AdvReac Type Severity Reaction Status Date / Time aspirin Allergy Severe HIVES, SOB Verified 11/28/21 23:31 Iodinated Contrast Media Allergy Severe "CAUSED Verified 11/28/21 23:31 ASTHMA ATTACK" & HIVES ipratropium Allergy Severe SHORTNESS Verified 11/28/21 23:31 OF BREATH metaproterenol [From Alupent] Allergy Severe EYES AND Verified 11/28/21 23:31 FACE SWELLING, SEVERE WHEEZING NSAIDS (Non-Steroidal Allergy Severe Hives Verified 11/28/21 23:31 Anti-Inflamma Penicillins Allergy Severe SOB, HIVES Verified 11/28/21 23:31 sotalol Allergy Severe increased Verified 11/28/21 23:31 breathing problems Sulfa (Sulfonamide Allergy Severe Anaphylaxis Verified 11/28/21 23:31 Antibiotics) tiotropium Allergy Severe SYMPTOMS Verified 11/28/21 23:31 [From Spiriva with GOT WORSE [employer]] INSTEAD OF BETTER WITH BREATHING arformoterol Allergy Intermediate TACHYCARDIA Verified 11/28/21 23:31 aspartame Allergy Intermediate HIVES, Verified 11/28/21 23:31 ITCHY ciprofloxacin Allergy Intermediate WHEEZING, Verified 11/28/21 23:31 NAUSEA clarithromycin [From Biaxin] Allergy Intermediate Unknown, ? Verified 11/28/21 23:31 WHEEZING , OR NAUSEA ? Fish Containing Products Allergy Intermediate BODY CAN'T Verified 11/28/21 23:31 ABSORB fish derived Allergy Intermediate Unknown Verified 11/28/21 23:31 latex Allergy Intermediate ITCHY/RASH Verified 11/28/21 23:31 nickel Allergy Intermediate RASH & Verified 11/28/21 23:31 BLISTERS pioglitazone [From Actos] Allergy Intermediate RETAINED Verified 11/28/21 23:31 FLUID povidone Allergy Intermediate BLISTER Verified 11/28/21 23:31 WITH TAPE shellfish derived Allergy Intermediate BODY CAN'T Verified 11/28/21 23:31 ABSORB, "SMELL LIKE A FISH" stevioside [From Stevia] Allergy Intermediate Wheezing Verified 11/28/21 23:31 sucralose Allergy Intermediate Wheezing Verified 11/28/21 23:31 [From Splenda (sucralose)] adhesive Allergy Mild BLISTERS Verified 11/28/21 23:31 WITH TAPE apixaban [From Eliquis] Allergy Mild SEE NOTES Verified 11/28/21 23:31 BELOW banana Allergy Mild "FEELS Verified 11/28/21 23:31 LIKE PEACH FUZZ IN MOUTH" chlorhexidine Allergy Mild BLISTERY Verified 11/28/21 23:31 RASH clindamycin Allergy Mild rash Verified 12/02/21 23:20 doxycycline Allergy Mild rash Verified 12/02/21 23:17 psyllium [From Metamucil] AdvReac Intermediate bloating Verified 11/28/21 23:31 meperidine AdvReac Mild Gastrointestinal Verified 11/28/21 23:31 Upset, N/V metformin [From Riomet] AdvReac Mild DIARRHEA Verified 11/28/21 23:31 WITH MORE THAN 1 A DAY morphine AdvReac Mild Gastrointestinal Verified 11/28/21 23:31 Upset,N/V tapentadol [From Nucynta] AdvReac Mild Nausea and Verified 11/28/21 23:31 vomiting egg AdvReac Verified 12/06/21 11:34 Egg Derived AdvReac Verified 12/06/21 11:34 Past Med/Surg History Medical History Asthma USED RESCUE INHALER LAST WEEKEND Back problem 3 DISCS PUSHING ON SCIATIC NERVE PER PT>CAUSES R LEG NUMBNESS AT TIMES LYING FLAT FOR EXTENDED TIME WILL CAUSE LEGS TO JUMP Chronic anticoagulation Chronic diastolic CHF (congestive heart failure) Chronic low blood pressure Chronic respiratory failure with hypoxia CKD (chronic kidney disease), stage III COPD (chronic obstructive pulmonary disease) Cor pulmonale, chronic Cushingoid side effect of steroids DM type 2 (diabetes mellitus, type 2) Dyslipidemia History of Meniere's disease History of TIA (transient ischemic attack) ? NEVER CONFIRMED (PT DOES NOT THINK SHE HAD TIA) Hx of vertigo Hypothyroidism Impingement syndrome of both shoulders Long COVID ZEYAD (obstructive sleep apnea) WEARS 3-4L CONT. Osteoarthritis Oxygen dependent 3-4L CONT. 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 Beliefs That Will Affect Care: None marital status: Current Living Situation: Family Current Living Situation Comment: lives with son How many Children do You have: 2 Feels Safe at Home: Yes Assistive Devices: Glasses Review of Systems A total of 10 systems reviewed and were otherwise negative Constitutional: no fever Respiratory: no cough and no dyspnea on exertion Integumentary: no lesions Endocrine: no fatigue Physical Exam Vital Signs Vital Signs - 24 hr 01/01/22 22:03 01/01/22 23:43 Temperature 36.7 C Temperature Source Oral Pulse Rate 144 H 66 Pulse Rhythm Irregular Respiratory Rate 20 24 Respiratory Effort / Characteristics Non-Labored Spontaneous Respiratory Depth Normal Respiratory Pattern Regular Blood Pressure 87/51 L 108/55 L Blood Pressure Mean 63 72 Blood Pressure Position Lying Pulse Oximetry 98 98 Oxygen Delivery Method Nasal Cannula Oxygen Flow Rate 4 Sepsis Recent Fever Within 48 Hours No Sepsis New/Unexplained Change in Mental Status No Sepsis Action Taken by Nursing No Action Required VITAL SIGNS - Vital signs and nursing notes were reviewed. GENERAL -76-year-old female appearing her stated age who is in no acute distress. Communicates well with provider and answers questions appropriately. SKIN - Without rashes. HEAD - NC/AT. EYES - PERRL with EOMI bilaterally. Sclera anicteric. Palpebral conjunctiva pink and moist with no injection noted. EARS - No deformities of external structures noted on gross examination bilaterally. NOSE - Midline and without cyanosis. No epistaxis or purulent drainage noted. MOUTH/OROPHARYNX - Without perioral cyanosis. Buccal mucosa pink and moist NECK - Neck with FROM. Supple to palpation. LUNGS - Chest wall symmetric without accessory muscle use, intercostals retractions, or central cyanosis. Normal vesicular breath sounds CTA B/L. No wheezes, rales, or rhonchi appreciated. CARDIAC -irregularly irregular with S1/S2. No murmur, rubs, or gallops apprec iated. ABDOMEN - Abdominal contoursoft without pulsations or visible masses. BS normoactive all four quadrants. No tenderness, palpable masses, hepatosplenomegaly, or ascites noted. Morbidly obese EXTREMITIES - No clubbing or peripheral cyanosis. B/l LE pitting edema to the knees. . +5/5 strength noted in UE/LE bilaterally. NEUROLOGIC - Cranial nerves II through XII grossly intact. Sensory intact to light touch throughout. Patellar reflexes +2/4. PSYCH - A&Ox3 and cooperates fully with examiner. Pt is very pleasant and interacts well with examiner. Course Reevaluation(s) Reevaluation #1: Patient is resting in no distress, was given IV Lasix, patient is in CHF, the case was discussed with the [facility] hospitalist at 12:35 AM for admission Administered Medications Discontinued Medications Furosemide (Furosemide 40 Mg/4 Ml Vial) 80 mg IV ONE ONE Stop: 01/01/22 23:41 Last Admin: 01/01/22 23:52 Dose: 80 mg Documented by: [id number] Medical Decision Making Medical Records Attestation: I reviewed the patient's medical records. Laboratory Data Attestation: I reviewed the patient's lab results. Result diagrams: 01/01/22 22:01/01/22 23:19 Lab Results 01/01/22 01/01/22 01/01/22 Range/Units 22:02 22: 22:22 WBC 7.38 (4.8-10.8) K/uL RBC 3.44 L (4.2-5.4) M/uL Hgb 8.8 L (12.0-16.0) g/dL Hct 29.8 L (37-47) % MCV 86.6 (80-100) fL MCH 25.6 (25-34) pg MCHC 29.5 L (32-36) g/dL RDW Std Deviation 65.9 H (36.4-46.3) fL RDW Coeff of Lawrence 20.8 H (11.5-14.5) % Plt Count 185 (130-400) K/uL MPV 9.3 (7.4-10.4) fL Immature Gran % (Auto) 0.3 % Neut % (Auto) 52.0 % Lymph % (Auto) 28.7 % Harper % (Auto) 12.6 % Eos % (Auto) 6.1 % Baso % (Auto) 0.3 % Neut # (Auto) 3.84 (1.4-6.5) K/uL Lymph # (Auto) 2.12 (1.2-3.4) K/uL Harper # (Auto) 0.93 H (0.11-0.59) K/uL Eos # (Auto) 0.45 (0-0.5) K/uL Baso # (Auto) 0.02 (0-0.2) K/uL Immature Gran # (Auto) 0.02 (0.00-0.02) K/uL Polychromasia 1+ Anisocytosis Present PT 10.6 (9.0-12.0) Seconds INR 1.0 (0.9-1.1) APTT 24.2 (21.0-31.0) Seconds PTT Ratio 0.9 Sodium Potassium Chloride Carbon Dioxide Anion Gap BUN Creatinine Est Cr Clr Drug Dosing Est GFR ( Amer) Est GFR (Non-Af Amer) BUN/Creatinine Ratio Glucose POC Glucose 93 (70-99) mg/dl Calcium Magnesium Total Bilirubin AST ALT Alkaline Phosphatase Troponin I B-Natriuretic Peptide (0-100) pg/ml Total Protein Albumin Globulin Albumin/Globulin Ratio SARS-CoV-2, RNA, NAAT (NEGATIVE) 01/01/22 01/01/22 01/01/22 Range/Units 22:22 23:05 23:19 WBC (4.8-10.8) K/uL RBC (4.2-5.4) M/uL Hgb (12.0-16.0) g/dL Hct (37-47) % MCV (80-100) fL MCH (25-34) pg MCHC (32-36) g/dL RDW Std Deviation (36.4-46.3) fL RDW Coeff of Lawrence (11.5-14.5) % Plt Count (130-400) K/uL MPV (7.4-10.4) fL Immature Gran % (Auto) % Neut % (Auto) % Lymph % (Auto) % Harper % (Auto) % Eos % (Auto) % Baso % (Auto) % Neut # (Auto) (1.4-6.5) K/uL Lymph # (Auto) (1.2-3.4) K/uL Harper # (Auto) (0.11-0.59) K/uL Eos # (Auto) (0-0.5) K/uL Baso # (Auto) (0-0.2) K/uL Immature Gran # (Auto) (0.00-0.02) K/uL Polychromasia Anisocytosis PT (9.0-12.0) Seconds INR (0.9-1.1) APTT (21.0-31.0) Seconds PTT Ratio Sodium Cancelled 131 L Potassium Cancelled 4.5 Chloride Cancelled 89 L Carbon Dioxide Cancelled 36 H Anion Gap Cancelled 6 BUN Cancelled 34 H Creatinine Cancelled 1.99 H Est Cr Clr Drug Dosing Cancelled 33.9 Est GFR ( Amer) Cancelled 28.0 Est GFR (Non-Af Amer) Cancelled 24.1 BUN/Creatinine Ratio Cancelled 17.1 Glucose Cancelled 86 POC Glucose (70-99) mg/dl Calcium Cancelled 7.9 L Magnesium Cancelled 2.4 Total Bilirubin Cancelled 0.3 AST Cancelled 25 ALT Cancelled 14 Alkaline Phosphatase Cancelled 104 Troponin I Cancelled < 0.03 B-Natriuretic Peptide 232 H (0-100) pg/ml Total Protein Cancelled 6.2 Albumin Cancelled 2.7 L Globulin Cancelled 3.5 Albumin/Globulin Ratio Cancelled 0.8 L SARS-CoV-2, RNA, NAAT (NEGATIVE) 01/01/22 Range/Units 23:56 WBC (4.8-10.8) K/uL RBC (4.2-5.4) M/uL Hgb (12.0-16.0) g/dL Hct (37-47) % MCV (80-100) fL MCH (25-34) pg MCHC (32-36) g/dL RDW Std Deviation (36.4-46.3) fL RDW Coeff of Lawrence (11.5-14.5) % Plt Count (130-400) K/uL MPV (7.4-10.4) fL Immature Gran % (Auto) % Neut % (Auto) % Lymph % (Auto) % Harper % (Auto) % Eos % (Auto) % Baso % (Auto) % Neut # (Auto) (1.4-6.5) K/uL Lymph # (Auto) (1.2-3.4) K/uL Harper # (Auto) (0.11-0.59) K/uL Eos # (Auto) (0-0.5) K/uL Baso # (Auto) (0-0.2) K/uL Immature Gran # (Auto) (0.00-0.02) K/uL Polychromasia Anisocytosis PT (9.0-12.0) Seconds INR (0.9-1.1) APTT (21.0-31.0) Seconds PTT Ratio Sodium Potassium Chloride Carbon Dioxide Anion Gap BUN Creatinine Est Cr Clr Drug Dosing Est GFR ( Amer) Est GFR (Non-Af Amer) BUN/Creatinine Ratio Glucose POC Glucose (70-99) mg/dl Calcium Magnesium Total Bilirubin AST ALT Alkaline Phosphatase Troponin I B-Natriuretic Peptide (0-100) pg/ml Total Protein Albumin Globulin Albumin/Globulin Ratio SARS-CoV-2, RNA, NAAT NEGATIVE (NEGATIVE) Imaging Data Attestation: I personally reviewed and interpreted this imaging study as follows: My Impression: Chest x-ray interpreted by me CHF, cardiomegaly ECG Data Attestation: I personally reviewed and interpreted this ECG as follows: Additional Comments: EKG interpreted by me atrial fibrillation [address]-T changes poor R wave progression the precordium, no obvious ST segment elevation or depression, normal axis MDM Narrative Decision making differential diagnosis includes CHF, bilateral extremity edema, renal insufficiency, metabolic derangement; plan is to check labs EKG chest x- ray Impression & Plan Congestive heart failure, Leg edema Discharge Plan Visit Data Chief Complaint: Shortness of Breath/Dyspnea ED Provider: Beto Galvin Discharge Problem: Congestive heart failure, Leg edema Patient Disposition: Being Evaluated by Hospitalist Forms Stand Alone Forms: My [facility] Prescriptions Prescriptions: No Action albuterol sulfate 90 mcg/actuation HFA aerosol inhaler 2 inh INHALATION Q6H PRN (Reason: SOB) Qty: 3 RF: 5 albuterol sulfate 2.5 mg /3 mL (0.083 %) solution for nebulization 2.5 mg inhalation Q4H PRN (Reason: sob) Qty: 180 RF: 5 (DME) nebulizers Misc See Rx Instructions miscellaneous .MEDSUPPLY Qty: 1 RF: 0 polyethylene glycol 3350 [Miralax] 17 gram Powder In Packet 17 g PO QAM PRN (Reason: Constipation) RF: 0 ondansetron HCl 4 mg Tablet 4 mg PO Q8H PRN (Reason: Nausea) RF: 0 acetaminophen [Tylenol 8 Hour] 650 mg Tablet Extended Release 650 mg PO UD PRN (Reason: Pain) RF: 0 magnesium 200 mg Tablet 600 mg PO DAILY RF: 0 diclofenac sodium 2 % Solution In Packet 1 packet TOPICAL UD PRN (Reason: Pain) RF: 0 multivitamin Tablet 1 tab PO DAILY RF: 0 dofetilide 250 mcg capsule 250 mcg PO BID RF: 0 torsemide 10 mg Tablet 10 mg PO QAM RF: 0 potassium chloride 10 mEq Tablet Extended Release 10 meq PO QAM RF: 0 spironolactone 25 mg Tablet 12.5 mg PO 3XWK RF: 0 hydrocortisone [Proctosol HC] 2.5 % Cream With Perineal Applicator 1 applic WA BID PRN (Reason: hemorrhoid) RF: 0 cyanocobalamin (vitamin B-12) 500 mcg Tablet 500 mcg PO DAILY RF: 0 meclizine 25 mg Tablet 25 mg PO Q8H PRN (Reason: dizziness) RF: 0 baclofen 10 mg Tablet 5 mg PO BID RF: 0 Premarin 0.625 mg/gram Cream 0.625 mg VAGINAL 3XWK RF: 0 metformin 500 mg Tablet Extended Release 24 Hr 500 mg PO QPM RF: 0 cholecalciferol (vitamin D3) 25 mcg (1,000 unit) Capsule 25 mcg PO DAILY RF: 0 ferrous fumarate-vitamin C 200 mg (66 mg iron)-125 mg Tablet 1 tab PO DAILY RF: 0 folic acid 1 mg Tablet 1 mg PO DAILY RF: 0 benzonatate 100 mg capsule 100 mg PO TID PRN (Reason: Cough) RF: 0 carvedilol 3.125 mg Tablet 9.375 mg PO BID Qty: 180 RF: 0 levothyroxine [Synthroid] 125 mcg Tablet 125 mcg PO DAILYBB Qty: 30 RF: 0 mupirocin 2 % ointment 1 applic topical BID PRN (Reason: FOR NASAL SORES) RF: 0 oxycodone 10 mg tablet 10 mg PO Q6H PRN (Reason: Pain) 3 Days Qty: 10 RF: 0 oxycodone [OxyContin] 20 mg tablet,oral only,ext.rel.12 hr 20 mg PO BID PRN (Reason: Pain) 4 Days Qty: 7 RF: 0 pantoprazole 40 mg tablet,delayed release (DR/EC) 40 mg PO DAILY PRN (Reason: Abdominal Pain) RF: 0 Referrals Referrals: [facility] [Non-Staff] - Discharge Problem: Congestive heart failure Qualifiers: Heart failure type: combined systolic and diastolic Heart failure chronicity: acute Qualified Code(s): I50.41 - Acute combined systolic (congestive) and diastolic (congestive) heart failure
[2022-01-01] MEDS ORDERED: FUROSEMIDE 40 MG/4 ML VIAL IV ONE (23:40)
[2022-01-01 23:41] LABS: Anisocytosis Present; Polychromasia 1+
[2022-01-01 23:57] LABS: Troponin I < 0.03 ng/ml (0-0.04)
[2022-01-02 00:23] LABS: Alanine Aminotransferase 14 U/L (7-52); Albumin Globulin Ratio 0.8 (0.9-2); Albumin Level 2.7 gm/dl (3.4-5.0); Alkaline Phosphatase 104 U/L (34-104); Anion Gap 6 (3-11); Aspartate Aminotransferase 25 U/L (13-39); BUN Creatinine Ratio 17.1 (10-20); Bilirubin,Total 0.3 mg/dl (0.2-1.0); Blood Urea Nitrogen 34 mg/dl (6-23); Calcium 7.9 mg/dl (8.5-10.1); Carbon Dioxide 36 mmol/L (21-32); Chloride 89 mmol/L (98-107); Creatinine Clr Calc Pharmacy 33.9 ml/min; Est GFR (Non-African American) 24.1 ml/min; Globulin 3.5 gm/dl (2.5-4.0); Glucose 86 mg/dl (70-99(Fasting)); Magnesium 2.4 mg/dl (1.7-2.4); Potassium 4.5 mmol/L (3.5-5.1); Sodium 131 mmol/L (136-145); Total Protein 6.2 gm/dl (6.0-8.3)
[2022-01-02] MEDS ORDERED: ALBUMIN 25% 100 mL 25 GM/100 ML VIAL IV ONE (00:50)
--- NOTE | 2022-01-02 01:26 | History & Physical Report ---
Date of Service January 02, 2022 Assessment & Plan (1) SOB (shortness of breath): Plan: Multifactorial: Decompensated heart failure, possible cardiorenal syndrome given ARF on CKD (underlying cor pulmonale secondary to COPD/ZEYAD/CPAP intolerance) HCAP, no sepsis for now chronic respiratory failure secondary to COPD on home O2 HTN, BP on the lower side Recurrent AF, heart rate uncontrolled upon arrival at the ER, currently within normal limits, patient not on any anticoagulation secondary to L GIB history TIA as per records DM2 on oral medications , suboptimal control as of recent hemoglobin A1c of 7.29 November 2021 chronic pain on narcotics chronic anemia, hemoglobin at baseline recurrent cystitis/cystocele, hx ESBL UTI hypothyroidism, euthyroid as of today's TSH Possible functional disability given recurrent admissions PCU Supplemental O2 Lasix albumin given low BP and kidney dysfunction Strict I/Os, daily weights, CHF education, fluid restriction Cardiology and Nephrology consultations for possible cardiorenal syndrome Decrease maintenance Coreg dose Ertapenem for HCAP Baseline UA, follow kidney function Basal insulin, ISS BG goal 1 10-1 40, carb count coverage PT OT eval DVT prophylaxis. SCDs Re: hx of GIB Full code Text document was generated using One[employer] voice recognition software. It may contain grammatical or spelling errors. Kindly contact undersigned for clarification of any documentation item in question. History of Present Illness Chief Complaint: Worsening shortness of breath Primary Care Provider: Flex Barr MD History obtained from patient and records. Medical history significant for chronic respiratory failure secondary to COPD on home O2, chronic diastolic heart failure, EF 70% 2021, cor pulmonale as per records, ZEYAD (CPAP intolerance), HTN, PAF not on anticoagulation secondary to L GIB, TIA, DM2 on oral medications , chronic pain on narcotics, CRI (baseline creatinine 1.3-1.5 ), chronic anemia (baseline hemoglobin 7-8), recurrent cystitis/cystocele, hx ESBL UTI, history of pancreatitis as per records, Hypothyroidism, IBS, constipation predominant. Monthly admissions since October 2021. Recent confinement last month for respiratory failure secondary to COPD exacerbation secondary to COVID-19 infection. Patient discharged to rehab facility and transitioned to home last week. As per patient, she was not fully well following discharge from the hospital last month. Still with shortness of breath, abdominal distention and leg swelling. Achy abdominal pain going to the back. At home, patient noted progressive fluid retention along with worsening shortness of breath. Junky cough symptoms, denies aspiration. No fever, no chills. No chest pain. Patient compliant with home medications. No OTC NSAID intake. IV Lasix administered at the ER. 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 Allergies Allergy/AdvReac Type Severity Reaction Status Date / Time aspirin Allergy Severe HIVES, SOB Verified 01/02/22 00:45 Iodinated Contrast Media Allergy Severe "CAUSED Verified 01/02/22 00:45 ASTHMA ATTACK" & HIVES ipratropium Allergy Severe SHORTNESS Verified 01/02/22 00:45 OF BREATH metaproterenol [From Alupent] Allergy Severe EYES AND Verified 01/02/22 00:45 FACE SWELLING, SEVERE WHEEZING NSAIDS (Non-Steroidal Allergy Severe Hives Verified 01/02/22 00:45 Anti-Inflamma Penicillins Allergy Severe SOB, HIVES Verified 01/02/22 00:45 sotalol Allergy Severe increased Verified 01/02/22 00:45 breathing problems Sulfa (Sulfonamide Allergy Severe Anaphylaxis Verified 01/02/22 00:45 Antibiotics) tiotropium Allergy Severe SYMPTOMS Verified 01/02/22 00:45 [From Spiriva with [employer]] INSTEAD OF BETTER WITH BREATHING arformoterol Allergy Intermediate TACHYCARDIA Verified 01/02/22 00:45 aspartame Allergy Intermediate HIVES, Verified 01/02/22 00:45 ITCHY ciprofloxacin Allergy Intermediate WHEEZING, Verified 01/02/22 00:45 NAUSEA clarithromycin [From Biaxin] Allergy Intermediate Unknown, ? Verified 01/02/22 00:45 WHEEZING , OR NAUSEA ? Fish Containing Products Allergy Intermediate BODY CAN'T Verified 01/02/22 00:45 ABSORB fish derived Allergy Intermediate Unknown Verified 01/02/22 00:45 latex Allergy Intermediate ITCHY/RASH Verified 01/02/22 00:45 nickel Allergy Intermediate RASH & Verified 01/02/22 00:46 BLISTERS pioglitazone [From Actos] Allergy Intermediate RETAINED Verified 01/02/22 00:46 FLUID povidone Allergy Intermediate BLISTER Verified 01/02/22 00:46 WITH TAPE shellfish derived Allergy Intermediate BODY CAN'T Verified 01/02/22 00:46 ABSORB, "SMELL LIKE A FISH" stevioside [From Stevia] Allergy Intermediate Wheezing Verified 01/02/22 00:46 sucralose Allergy Intermediate Wheezing Verified 01/02/22 00:46 [From Splenda (sucralose)] adhesive Allergy Mild BLISTERS Verified 01/02/22 00:46 WITH TAPE apixaban [From Eliquis] Allergy Mild SEE NOTES Verified 01/02/22 00:46 BELOW banana Allergy Mild "FEELS Verified 01/02/22 00:46 LIKE PEACH FUZZ IN MOUTH" chlorhexidine Allergy Mild BLISTERY Verified 01/02/22 00:46 RASH clindamycin Allergy Mild rash Verified 01/02/22 00:46 doxycycline Allergy Mild rash Verified 01/02/22 00:46 psyllium [From Metamucil] AdvReac Intermediate bloating Verified 01/02/22 00:46 meperidine AdvReac Mild Gastrointestinal Verified 01/02/22 00:46 Upset, N/V metformin [From Riomet] AdvReac Mild DIARRHEA Verified 01/02/22 00:46 WITH MORE THAN 1 A DAY morphine AdvReac Mild Gastrointestinal Verified 01/02/22 00:46 Upset,N/V tapentadol [From Nucynta] AdvReac Mild Nausea and Verified 01/02/22 00:46 vomiting egg AdvReac Verified 01/02/22 00:46 Egg Derived AdvReac Verified 01/02/22 00:46 Home Medications Medication Instructions Recorded Confirmed Type baclofen 10 mg tablet 5 mg PO BID 09/12/20 01/02/22 History cholecalciferol (vitamin D3) 25 25 mcg PO DAILY 09/12/20 01/02/22 History mcg (1,000 unit) capsule conjugated estrogens 0.625 mg/gram 0.625 mg VAGINAL 3XWK 09/12/20 01/02/22 History vaginal cream (Premarin) cyanocobalamin (vitamin B-12) 500 500 mcg PO DAILY 09/12/20 01/02/22 History mcg tablet dofetilide 250 mcg capsule 250 mcg PO BID 09/12/20 01/02/22 History hydrocortisone 2.5 % topical cream 1 applic HI BID PRN 09/12/20 01/02/22 History with perineal applicator (Proctosol HC) meclizine 25 mg tablet 25 mg PO Q8H PRN 09/12/20 01/02/22 History metformin 500 mg tablet,extended 500 mg PO QPM 09/12/20 01/02/22 History release 24 hr multivitamin 1 tab PO DAILY 09/12/20 01/02/22 History potassium chloride 10 mEq 10 meq PO QAM 09/12/20 01/02/22 History tablet,extended release spironolactone 25 mg tablet 12.5 mg PO 3XWK 09/12/20 01/02/22 History torsemide 10 mg tablet 10 mg PO QAM 09/12/20 01/02/22 History acetaminophen 650 mg 650 mg PO UD PRN 09/28/20 01/02/22 History tablet,extended release (Tylenol 8 Hour) diclofenac sodium 2 % topical 1 packet TOPICAL UD PRN 09/28/20 01/02/22 History solution in packet magnesium 200 mg tablet 600 mg PO DAILY 09/28/20 01/02/22 History ondansetron HCl 4 mg tablet 4 mg PO Q8H PRN 09/28/20 01/02/22 History polyethylene glycol 3350 17 gram 17 g PO QAM PRN 09/28/20 01/02/22 History oral powder packet (Miralax) albuterol sulfate 90 mcg/actuation 2 inh INHALATION Q6H PRN #3 inhaler 11/11/20 01/02/22 Rx aerosol inhaler ferrous fumarate-vitamin C 200 mg 1 tab PO DAILY 03/01/21 01/02/22 History (66 mg iron)-125 mg tablet folic acid 1 mg tablet 1 mg PO DAILY 03/01/21 01/02/22 History nebulizers #1 ea 05/11/21 11/08/21 Rx albuterol sulfate 2.5 mg INHALATION Q4H PRN #180 ml 09/27/21 01/02/22 Rx benzonatate 100 mg capsule 100 mg PO TID PRN 11/08/21 01/02/22 History carvedilol 3.125 mg tablet 9.375 mg PO BID #180 tab 11/20/21 01/02/22 Rx levothyroxine 125 mcg tablet 125 mcg PO DAILYBB #30 tab 11/20/21 01/02/22 Rx (Synthroid) mupirocin 2 % topical ointment 1 applic TOPICAL BID PRN 11/28/21 01/02/22 History oxycodone 10 mg tablet 10 mg PO Q6H PRN 3 Days #10 tab 12/07/21 01/02/22 Rx oxycodone 20 mg tablet,crush 20 mg PO BID 01/02/22 01/02/22 History resistant,extended release 12 hr (OxyContin) pantoprazole 40 mg tablet,delayed 40 mg PO DAILY PRN 01/02/22 01/02/22 History release Past Med/Surg History Medical History Asthma USED RESCUE INHALER LAST WEEKEND Back problem 3 DISCS PUSHING ON SCIATIC NERVE PER PT>CAUSES R LEG NUMBNESS AT TIMES LYING FLAT FOR EXTENDED TIME WILL CAUSE LEGS TO JUMP Chronic anticoagulation Chronic diastolic CHF (congestive heart failure) Chronic low blood pressure Chronic respiratory failure with hypoxia CKD (chronic kidney disease), stage III COPD (chronic obstructive pulmonary disease) Cor pulmonale, chronic Cushingoid side effect of steroids DM type 2 (diabetes mellitus, type 2) Dyslipidemia History of Meniere's disease History of TIA (transient ischemic attack) ? NEVER CONFIRMED (PT DOES NOT THINK SHE HAD TIA) Hx of vertigo Hypothyroidism Impingement syndrome of both shoulders Long COVID ZEYAD (obstructive sleep apnea) WEARS 3-4L CONT. Osteoarthritis Oxygen dependent 3-4L CONT. 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 Beliefs That Will Affect Care: None marital status: Current Living Situation: Family Current Living Situation Comment: lives with son How many Children do You have: 2 Other Information That Helps Us Care for You: No Feels Safe at Home: Yes Safety Concerns: Feels Safe At This Time Assistive Devices: Oxygen - Continuous Review of Systems Review of Systems: As per HPI, all 10 systems reviewed, all other ROS negative Physical Exam Physical Exam: GENERAL: Morbidly obese, cushingoid, no respiratory distress SKIN: Pallor, warm HEENT: Pale palpebral conjunctivae, no ptosis, dry buccal mucosa, nasal cannula in place NECK : Supple, short neck, no tenderness CHEST : Decreased breath sounds, no tenderness HEART : Irregular, no obvious murmurs ABDOMEN: Marked distention, nontender EXTREMITIES : Bilateral LE swelling, no LE tenderness, no other conspicuous deformities noted NEUROLOGIC : Coherent, no facial asymmetry, no other gross focality Results & Data Results & Data ([facility]) Vital Signs (Past 12 Hours) Vital Signs Temp Pulse Resp BP Pulse Ox 01/02/22 00:30 66 18 88/48 L 96 01/01/22 23:43 66 24 108/55 L 98 01/01/22 22:03 36.7 C 144 H 20 87/51 L 98 Laboratory Results Laboratory Results WBC 7.38 K/uL (4.8-10.8) 01/01/22 22: RBC 3.44 M/uL (4.2-5.4) L 01/01/22 22:22 Hgb 8.8 g/dL (12.0-16.0) L 01/01/22 22:22 Hct 29.8 % (37-47) L 01/01/22 22:22 MCV 86.6 fL (80-100) 01/01/22 22:22 MCH 25.6 pg (25-34) 01/01/22 22: MCHC 29.5 g/dL (32-36) L 01/01/22 22:22 RDW Std Deviation 65.9 fL (36.4-46.3) H 01/01/22 22:22 RDW Coeff of [place] 20.8 % (11.5-14.5) H 01/01/22 22:22 Plt Count 185 K/uL (130-400) 01/01/22 22:22 MPV 9.3 fL (7.4-10.4) 01/01/22 22: Immature Gran % (Auto) 0.3 % 01/01/22 22: Neut % (Auto) 52.0 % 01/01/22 22: Lymph % (Auto) 28.7 % 01/01/22 22: [place] % (Auto) 12.6 % 01/01/22 22: Eos % (Auto) 6.1 % 01/01/22: Baso % (Auto) 0.3 % 01/01/22: Neut # (Auto) 3.84 K/uL (1.4-6.5) 01/01/22 22: Lymph # (Auto) 2.12 K/uL (1.2-3.4) 01/01/22: [place] # (Auto) 0.93 K/uL (0.11-0.59) H 01/01/22 22: Eos # (Auto) 0.45 K/uL (0-0.5) 01/01/22: Baso # (Auto) 0.02 K/uL (0-0.2) 01/01/22: Immature Gran # (Auto) 0.02 K/uL (0.00-0.02) 01/01/22: Polychromasia 1+ 01/01/22:22 Anisocytosis Present 01/01/22 22: PT 10.6 Seconds (9.0-12.0) 01/01/22 22: INR 1.0 (0.9-1.1) 01/01/22 22: APTT 24.2 Seconds (21.0-31.0) 01/01/22 22: PTT Ratio 0.9 01/01/22 22:22 Sodium 131 mmol/L (136-145) L 01/01/22 23:19 Potassium 4.5 mmol/L (3.5-5.1) 01/01/22 23:19 Chloride 89 mmol/L (98-107) L 01/01/22 23:19 Carbon Dioxide 36 mmol/L (21-32) H 01/01/22 23:19 Anion Gap 6 (3-11) 01/01/22 23:19 BUN 34 mg/dl (6-23) H 01/01/22 23:19 Creatinine 1.99 mg/dl (0.6-1.2) H 01/01/22 23:19 Est Cr Clr Drug Dosing 33.9 ml/min 01/01/22 23:19 Est GFR ( Amer) 28.0 ml/min 01/01/22 23:19 Est GFR (Non-Af Amer) 24.1 ml/min 01/01/22 23:19 BUN/Creatinine Ratio 17.1 (10-20) 01/01/22 23:19 Glucose 86 mg/dl (70-99(Fasting)) 01/01/22 23:19 POC Glucose 93 mg/dl (70-99) 01/01/22 22:02 Calcium 7.9 mg/dl (8.5-10.1) L 01/01/22 23:19 Magnesium 2.4 mg/dl (1.7-2.4) 01/01/22 23:19 Total Bilirubin 0.3 mg/dl (0.2-1.0) 01/01/22 23:19 AST 25 U/L (13-39) 01/01/22 23:19 ALT 14 U/L (7-52) 01/01/22 23:19 Alkaline Phosphatase 104 U/L (34-104) 01/01/22 23:19 Troponin I < 0.03 ng/ml (0-0.04) 01/01/22 23:19 B-Natriuretic Peptide 232 pg/ml (0-100) H 01/01/22 23:05 Total Protein 6.2 gm/dl (6.0-8.3) 01/01/22 23:19 Albumin 2.7 gm/dl (3.4-5.0) L 01/01/22 23:19 Globulin 3.5 gm/dl (2.5-4.0) 01/01/22 23:19 Albumin/Globulin Ratio 0.8 (0.9-2) L 01/01/22 23:19 SARS-CoV-2, RNA, NAAT NEGATIVE (NEGATIVE) 01/01/22 23:[address] chest initial read: Limited examination in the absence of contrast. Multifocal linear airspace opacities in the lungswith additional ground glass opacities and mild consolidation, most affecting the dependent right lower lobe. Findings maybe due to multifocal infection with scarring. Additional mild dependent bronchiectasis noted which mayrelate to chronic aspiration changes. Please note this is similar compared to prior CT chest 11-29-21. No gross evidence of pulmonaryedema. Mitral valve replacement. Hepatic steatosis. Partiallyvisualized cholecystectomychanges. Advanced pancreatic atrophy, incompletelyvisualized. Hiatal hernia. CT abdomen pelvis initial read: Limited examination in the absence of contrast. Additional limited examination due to the right abdominal wall having contact with the CT gantry. No evidence of radiopaque renal calculi or signs of collecting systemdilatation. Bladder wall thickening which appears to be out of proportion for degree of under distention which can be seen with cystitis. Foleyin bladder. Colonic diverticulosiswithout evidence of diverticulitis. Cholecystectomychanges. Hepatic steatosis. Right lower lobe dependent airspace disease which mayrelate to atelectasis. Infection also possible. Small hiatal hernia. EKG as per my interpretation: Rate 60, A. fib, LAD, LAFB, T wave abnormalities inferior leads, low voltage
[2022-01-02] MEDS ORDERED: CARBOHYDRATES FOR HYPOGLYCEMIA PO PRN (03:18)
[2022-01-02] MEDS ORDERED: GLUCOSE 10 TABS/TUBE PO PRN (03:18)
[2022-01-02] MEDS ORDERED: DEXTROSE 50% 50 ML SYRINGE IV PRN (03:18)
[2022-01-02] MEDS ORDERED: GLUCAGON FOR INJ 1 MG VIAL SQ PRN (03:18)
[2022-01-02] MEDS ORDERED: GLUCOSE 40% GEL 15 GM TUBE PO PRN (03:18)
[2022-01-02] MEDS: INSULIN ASPART PER UNIT SC SCH ×5 (03:45→20:41)
[2022-01-02] MEDS: oxyCODONE HCL IR 5 MG TAB (IMMEDIATE RELEASE) PO PRN ×2 (04:24→17:19)
[2022-01-02] MEDS: LEVOTHYROXINE SODIUM 125 MCG TABLET PO SCH (05:31)
[2022-01-02] MEDS ORDERED: CEFEPIME 2,000 MG in SYRINGE 0 ML IV SCH (06:00)
[2022-01-02] MEDS ORDERED: ERTAPENEM SODIUM 10 ML IV STA (06:06)
[2022-01-02] MEDS ORDERED: ERTAPENEM CONSULT ACTIVE PRN (06:20)
[2022-01-02 06:29] LABS: Basophils # (auto) 0.02 K/uL (0-0.2); Basophils % (auto) 0.3 %; Eosinophils # (auto) 0.42 K/uL (0-0.5); Eosinophils % (auto) 6.1 %; Hemoglobin 7.9 g/dL (12.0-16.0); Immature Granulocytes # (auto) 0.02 K/uL (0.00-0.02); Immature Granulocytes % (auto) 0.3 %; Lymphocytes # (auto) 1.78 K/uL (1.2-3.4); Mean Corpuscular Hemoglobin 25.6 pg (25-34); Mean Corpuscular Hgb Conc 29.3 g/dL (32-36); Mean Corpuscular Volume 87.4 fL (80-100); Mean Platelet Volume 9.1 fL (7.4-10.4); Monocytes # (auto) 1.01 K/uL (0.11-0.59); Monocytes % (auto) 14.8 %; Neutrophils # (auto) 3.59 K/uL (1.4-6.5); Neutrophils % (auto) 52.5 %; Platelet Count 181 K/uL (130-400); RDW Coefficient of Variation 20.9 % (11.5-14.5); RDW Standard Deviation 66.6 fL (36.4-46.3); Red Blood Count 3.09 M/uL (4.2-5.4); White Blood Count 6.84 K/uL (4.8-10.8)
[2022-01-02 06:51] LABS: BUN Creatinine Ratio 18.3 (10-20); Calcium 7.8 mg/dl (8.5-10.1); Creatinine Clr Calc Pharmacy 37.4 ml/min; Est GFR (African American) 31.6 ml/min; Est GFR (Non-African American) 27.2 ml/min
[2022-01-02 07:03] LABS: Anisocytosis Present; Polychromasia 1+
[2022-01-02 07:36] LABS: Appearance Urine Clear (Clear); Bacteria Urine Automated 3+ (Negative); Bilirubin Urine Negative (Negative); Blood Urine Negative (Negative); Color Urine Yellow; Epithelial Cell Urine Auto 0-5 /lpf (0-5); Glucose Urine UA Negative (Negative); Ketones Urine Negative (Negative); Leukocyte Esterase Urine 1+ (Negative); Nitrite Urine Positive (Negative); Protein Urine Negative (Negative); RBC Urine Automated 0-4 /hpf (0-4); Specific Gravity Urine 1.006 (1.000-1.030); Urobilinogen Urine Negative (Negative)
--- NOTE | 2022-01-02 07:37 | XRay Report ---
XR chest 1V portable CLINICAL HISTORY: Shortness of breath. COMPARISON STUDY: Chest radiograph November 2021. Chest CT November 29, 2021. FINDINGS: No pneumothorax or pleural effusion is present. Cardiomegaly is unchanged. Multifocal bilat eral airspace opacities are similar to prior exam of November 29, 2021. There is no evidence for pulmo nary edema. IMPRESSION: No significant change in multifocal bilateral airspace opacities since prior exam. The a ppearance favors an infectious process. However, developing fibrosis cannot be excluded given relativ e stability. ACT 112: Negative or not required by law. Electronically signed by: Pascual Santoro M.D. 01/02/2022 7:35 AM
[2022-01-02] MEDS: ASCORBIC ACID 500 MG TAB PO SCH (07:57)
[2022-01-02] MEDS: carvediloL 6.25 MG TAB PO SCH ×2 (07:57→20:12)
[2022-01-02] MEDS: DOFETILIDE 125 MCG CAPSULE PO SCH ×2 (07:57→20:13)
[2022-01-02] MEDS ORDERED: FUROSEMIDE 40 MG/4 ML VIAL IV ONE (08:00)
[2022-01-02] MEDS ORDERED: ALBUMIN 25% 12.5 GM/50 ML VIAL IV ONE (08:00)
[2022-01-02] MEDS: BACLOFEN 10 MG TAB PO SCH ×2 (08:00→20:12)
[2022-01-02] MEDS: ERTAPENEM SODIUM 1,000 MG in SODIUM CHLORIDE 0.9% 50 ML IV SCH (08:00)
[2022-01-02] MEDS: MULTIVITAMIN TAB PO SCH (08:02)
[2022-01-02] MEDS: FOLIC ACID 1 MG TAB PO SCH (08:02)
[2022-01-02] MEDS: CYANOCOBALAMIN (B-12) 500 MCG TABLET PO SCH (08:02)
[2022-01-02] MEDS: FERROUS SULFATE 325 MG TAB PO SCH (08:02)
--- NOTE | 2022-01-02 08:12 | CT Scan Report ---
CT chest diagnostic wo con, CT abd pelvis wo con CT DOSE: 2368.91 mGy.cm CLINICAL HISTORY: 76 years-old Female with cough, sob. Acute cough with shortness of breath TECHNIQUE: Multiaxial CT images of the chest, abdomen and pelvis were performed without contrast. A dose lowering technique was utilized adhering to the principles of ALARA. COMPARISON: Chest radiograph 07/05/2021. CT abdomen and pelvis 12/05/2021, chest CT 11/29/2021 and 021 FINDINGS: CT CHEST: No thyroid nodule identified. Subcentimeter paratracheal and subcarinal lymph nodes. The heart is upp er limits of normal in size. No pericardial effusion. Mitral and aortic annular calcifications. No th oracic aortic aneurysm. Mild dilation of the main pulmonary artery measuring up to 3.7 cm. Trace right pleural effusion has decreased in size from prior. No pneumothorax or overt pulmonary leandra ma. Bronchial wall thickening with mild right lung base mucous plugging. Subcentimeter calcified gran uloma of the basal left lower lobe. Irregular right greater than left reticular interstitial and mixe d groundglass and consolidative opacities are mildly improved from the 11/29/2019 study. No significant honeycombing. Suggested mild pulmonary emphysema. Mild bilateral intralobular septal thickening. The central airways are patent. Degenerative changes of the spine and shoulders. No acute fracture notified. CT ABDOMEN/PELVIS: No pneumatosis or pneumoperitoneum. The unenhanced spleen measures within the upper limits of normal in size. Marked pancreatic atrophy. Unremarkable adrenal glands. Cholecystectomy. Hepatic steatosis. Unremarkable kidneys. No urolith or hydronephrosis. Decompressed urinary bladder with Matos catheter in place. Urinary bladder wall thickening with perivesicular stranding. Uterus appears surgically abs ent. No adnexal mass lesion. No abdominal aortic aneurysm or adenopathy. Small hiatal hernia. No bowel obstruction or bowel wall thickening. Mild fecal retention. Colonic div erticulosis. The appendix is not visualized. Mild asymmetric subcutaneous edema of the right lateral abdominal wall. Probable injection granuloma of the subcutaneous anterior abdominal wall, 1.3 cm. Deg enerative changes of the spine, pelvis and hips. No acute fracture or destructive bone lesion identif ied. Severe L2-L3 intervertebral disc space narrowing. IMPRESSION: 1. Mildly improved aeration of the lungs compared to the 11/29/2021 study with persistent right greater than left reticular interstitial with multilobar patchy groundglass and consolidative opacities. 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 Residual or recurrent pneumonia would be difficult to exclude. 2. Mild emphysema with bronchitis and mild bibasilar mucous plugging. 3. Trace right pleural effusion has decreased in size from prior. 4. No bowel obstruction or bowel wall thickening. 5. Urinary bladder wall thickening with perivesicular stranding. Correlate with urinalysis. 6. Additional findings as above. ACT 112: Negative or not required by law. Electronically signed by: Jong Sommers M.D. 01/02/2022 8:10 AM
[2022-01-02] MEDS: INSULIN GLARGINE SOLOSTAR 100 UNITS/ML 3 ML PEN SC SCH (08:55)
[2022-01-02] MEDS: oxyCODONE HCL 20 MG TABCR (OxyCONTIN) PO SCH ×2 (08:58→20:13)
--- NOTE | 2022-01-02 09:40 | Cardiology Consultation ---
Date of Consultation January 02, 2022 Assessment & Plan (1) COPD (chronic obstructive pulmonary disease): (2) ZEYAD (obstructive sleep apnea): (3) Paroxysmal atrial fibrillation: (4) DM type 2 (diabetes mellitus, type 2): (5) CKD (chronic kidney disease), stage III: (6) Chronic diastolic CHF (congestive heart failure): (7) Leg edema: (8) Congestive heart failure: (9) History of noncompliance with medical treatment: During this patient's hospital admission consideration should be given for the short-term treatment of her problems as well as aftercare when she leaves the hospital. At least short-term placement may be helpful. I restarted her torsemide and reviewed her other medications. We will follow along with you during her hospital stay. History of Present Illness Attending Physician: Chris Mcnally MD History of Present Illness This is a 76-year-old female who has had multiple hospital admissions this year. In October she had Covid and it was recommended that she go to a rehab center before returning home. She refused and went home only to return in about 1 to 2 weeks with volume overload and heart failure. After that admission she did go to rehab hospital for short time and returned home and had the same problems. This is an unfortunate situation medically complex woman with severe COPD, obesity, diabetes, sleep apnea with intolerance to CPAP, paroxysmal atrial fibrillation and HFpEF. She also has difficulty thriving at home with resultant medical noncompliance and noncompliance with diet. She has an indwelling Matos catheter due to incontinence from a prolapsed bladder. Unfortunately, when the catheter is not in place she will become noncompliant with her diuretics due to having to get up and go to the bathroom frequently as well as incontinence. She once again presents with progressive shortness of breath volume overload and failure to thrive at home. Past medical history: 1.Symptomatic paroxysmal atrial fibrillation, on Tikosyn not on anticoagulation due to past bleeding issues 2.Severe chronic obstructive lung disease, asthmatic lung disease, O2 dependent 3-4 L 3.Sleep apnea, CPAP intolerant. 4.Type 2 diabetes mellitus. 5.Chronic sinus tachycardia. 6.Stage III chronic kidney disease 7.History of past pancreatitis 8.Dyslipidemia. 9.Hypothyroidism 10.Chronic diastolic CHF, NYHA class 3 Allergies Allergy/AdvReac Type Severity Reaction Status Date / Time aspirin Allergy Severe HIVES, SOB Verified 03/15/22 00:45 Iodinated Contrast Media Allergy Severe "CAUSED Verified 01/02/22 00:45 ASTHMA ATTACK" & HIVES ipratropium Allergy Severe SHORTNESS Verified 01/02/22 00:45 OF BREATH metaproterenol [From Alupent] Allergy Severe EYES AND Verified 01/02/22 00:45 FACE SWELLING, SEVERE WHEEZING NSAIDS (Non-Steroidal Allergy Severe Hives Verified 01/02/22 00:45 Anti-Inflamma Penicillins Allergy Severe SOB, HIVES Verified 01/02/22 00:45 sotalol Allergy Severe increased Verified 01/02/22 00:45 breathing problems Sulfa (Sulfonamide Allergy Severe Anaphylaxis Verified 01/02/22 00:45 Antibiotics) tiotropium Allergy Severe SYMPTOMS Verified 01/02/22 00:45 [From Spiriva with GOT WORSE HandiHaler] INSTEAD OF BETTER WITH BREATHING arformoterol Allergy Intermediate TACHYCARDIA Verified 01/02/22 00:45 aspartame Allergy Intermediate HIVES, Verified 01/02/22 00:45 ITCHY ciprofloxacin Allergy Intermediate WHEEZING, Verified 01/02/22 00:45 NAUSEA clarithromycin [From Biaxin] Allergy Intermediate Unknown, ? Verified 01/02/22 00:45 WHEEZING , OR NAUSEA ? Fish Containing Products Allergy Intermediate BODY CAN'T Verified 01/02/22 00:45 ABSORB fish derived Allergy Intermediate Unknown Verified 01/02/22 00:45 latex Allergy Intermediate ITCHY/RASH Verified 01/02/22 00:45 nickel Allergy Intermediate RASH & Verified 01/02/22 00:46 BLISTERS pioglitazone [From Actos] Allergy Intermediate RETAINED Verified 01/02/22 00:46 FLUID povidone Allergy Intermediate BLISTER Verified 01/02/22 00:46 WITH TAPE shellfish derived Allergy Intermediate BODY CAN'T Verified 01/02/22 00:46 ABSORB, "SMELL LIKE A FISH" stevioside [From Stevia] Allergy Intermediate Wheezing Verified 01/02/22 00:46 sucralose Allergy Intermediate Wheezing Verified 01/02/22 00:46 [From Splenda (sucralose)] adhesive Allergy Mild BLISTERS Verified 01/02/22 00:46 WITH TAPE apixaban [From Eliquis] Allergy Mild SEE NOTES Verified 01/02/22 00:46 BELOW banana Allergy Mild "FEELS Verified 01/02/22 00:46 LIKE PEACH FUZZ IN MOUTH" chlorhexidine Allergy Mild BLISTERY Verified 01/02/22 00:46 RASH clindamycin Allergy Mild rash Verified 01/02/22 00:46 doxycycline Allergy Mild rash Verified 01/02/22 00:46 psyllium [From Metamucil] AdvReac Intermediate bloating Verified 01/02/22 00:46 meperidine AdvReac Mild Gastrointestinal Verified 01/02/22 00:46 Upset, N/V metformin [From Riomet] AdvReac Mild DIARRHEA Verified 01/02/22 00:46 WITH MORE THAN 1 A DAY morphine AdvReac Mild Gastrointestinal Verified 01/02/22 00:46 Upset,N/V tapentadol [From Nucynta] AdvReac Mild Nausea and Verified 01/02/22 00:46 vomiting egg AdvReac Verified 01/02/22 00:46 Egg Derived AdvReac Verified 01/02/22 00:46 Home Medications Medication Instructions Recorded Confirmed Type baclofen 10 mg tablet 5 mg PO BID 09/12/20 01/02/22 History cholecalciferol (vitamin D3) 25 25 mcg PO DAILY 09/12/20 01/02/22 History mcg (1,000 unit) capsule conjugated estrogens 0.625 mg/gram 0.625 mg VAGINAL 3XWK 09/12/20 01/02/22 History vaginal cream (Premarin) cyanocobalamin (vitamin B-12) 500 500 mcg PO DAILY 09/12/20 01/02/22 History mcg tablet dofetilide 250 mcg capsule 250 mcg PO BID 09/12/20 01/02/22 History hydrocortisone 2.5 % topical cream 1 applic [place] BID PRN 09/12/20 01/02/22 History with perineal applicator (Proctosol HC) meclizine 25 mg tablet 25 mg PO Q8H PRN 09/12/20 01/02/22 History metformin 500 mg tablet,extended 500 mg PO QPM 09/12/20 01/02/22 History release 24 hr multivitamin 1 tab PO DAILY 09/12/20 01/02/22 History potassium chloride 10 mEq 10 meq PO QAM 09/12/20 01/02/22 History tablet,extended release spironolactone 25 mg tablet 12.5 mg PO 3XWK 09/12/20 01/02/22 History torsemide 10 mg tablet 10 mg PO QAM 09/12/20 01/02/22 History acetaminophen 650 mg 650 mg PO UD PRN 09/28/20 01/02/22 History tablet,extended release (Tylenol 8 Hour) diclofenac sodium 2 % topical 1 packet TOPICAL UD PRN 09/28/20 01/02/22 History solution in packet magnesium 200 mg tablet 600 mg PO DAILY 09/28/20 01/02/22 History ondansetron HCl 4 mg tablet 4 mg PO Q8H PRN 09/28/20 01/02/22 History polyethylene glycol 3350 17 gram 17 g PO QAM PRN 09/28/20 01/02/22 History oral powder packet (Miralax) albuterol sulfate 90 mcg/actuation 2 inh INHALATION Q6H PRN #3 inhaler 11/11/20 01/02/22 Rx aerosol inhaler ferrous fumarate-vitamin C 200 mg 1 tab PO DAILY 03/01/21 01/02/22 History (66 mg iron)-125 mg tablet folic acid 1 mg tablet 1 mg PO DAILY 03/01/21 01/02/22 History nebulizers #1 ea 05/11/21 11/08/21 Rx albuterol sulfate 2.5 mg INHALATION Q4H PRN #180 ml 09/27/21 01/02/22 Rx benzonatate 100 mg capsule 100 mg PO TID PRN 11/08/21 01/02/22 History carvedilol 3.125 mg tablet 9.375 mg PO BID #180 tab 11/20/21 01/02/22 Rx levothyroxine 125 mcg tablet 125 mcg PO DAILYBB #30 tab 11/20/21 01/02/22 Rx (Synthroid) mupirocin 2 % topical ointment 1 applic TOPICAL BID PRN 11/28/21 01/02/22 History oxycodone 10 mg tablet 10 mg PO Q6H PRN 3 Days #10 tab 12/07/21 01/02/22 Rx oxycodone 20 mg tablet,crush 20 mg PO BID 01/02/22 01/02/22 History resistant,extended release 12 hr (OxyContin) pantoprazole 40 mg tablet,delayed 40 mg PO DAILY PRN 01/02/22 01/02/22 History release Patient History Medical History Asthma USED RESCUE INHALER LAST WEEKEND Back problem 3 DISCS PUSHING ON SCIATIC NERVE PER PT>CAUSES R LEG NUMBNESS AT TIMES LYING FLAT FOR EXTENDED TIME WILL CAUSE LEGS TO JUMP Chronic anticoagulation Chronic diastolic CHF (congestive heart failure) Chronic low blood pressure Chronic respiratory failure with hypoxia CKD (chronic kidney disease), stage III COPD (chronic obstructive pulmonary disease) Cor pulmonale, chronic Cushingoid side effect of steroids DM type 2 (diabetes mellitus, type 2) Dyslipidemia History of Meniere's disease History of TIA (transient ischemic attack) ? NEVER CONFIRMED (PT DOES NOT THINK SHE HAD TIA) Hx of vertigo Hypothyroidism Impingement syndrome of both shoulders Long COVID ZEYAD (obstructive sleep apnea) WEARS 3-4L CONT. Osteoarthritis Oxygen dependent 3-4L CONT. 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 All other 10 point review of systems are negative. Physical Exam Physical Exam: General: no acute distress and stated age Head: normocephalic, no masses, lesions, tenderness or abnormalities Eyes: conjunctiva are pink and non-injected, sclera clear Neck: supple, no adenopathy, no bruits, normal jugular venous pulse, no hepatojugular reflux Chest: normal shape and normal respiratory effort Lungs: clear to auscultation and percussion Cardiac Exam: - regular rate & rhythm, no murmurs gallops or rubs - normal S1, n ormal S2 Pulses: 2(+) throughout Abdomen: abdomen soft, non-tender, no abnormal masses and no hepatosplenomegaly Musculoskeletal: no gait disturbance, no joint inflammation, no deforming arthritis Extremities: Bilateral lower extremity edema Neuro: grossly normal exam Results & Data ([facility]) Vital Signs (Past 12 Hours) Vital Signs Temp Pulse Pulse Resp BP BP Pulse Ox 01/02/22 08:19 36.9 C 75 19 108/59 L 95 01/02/22 04:21 36.8 C 83 16 122/60 95 01/02/22 03:08 70 01/02/22 02:00 68 18 106/54 L 98 01/02/22 01:30 67 17 114/56 L 98 01/02/22 00:30 66 18 88/48 L 96 01/01/22 23:43 66 24 108/55 L 98 01/01/22 22:03 36.7 C 144 H 20 87/51 L 98 Laboratory Results Laboratory Results - last 24 hr 01/01/22 01/01/22 01/01/22 22:02 22:22 22:22 WBC 7.38 RBC 3.44 L Hgb 8.8 L Hct 29.8 L MCV 86.6 MCH 25.6 MCHC 29.5 L RDW Std Deviation 65.9 H RDW Coeff of [place] 20.8 H Plt Count 185 MPV 9.3 Immature Gran % (Auto) 0.3 Neut % (Auto) 52.0 Lymph % (Auto) 28.7 [place] % (Auto) 12.6 Eos % (Auto) 6.1 Baso % (Auto) 0.3 Neut # (Auto) 3.84 Lymph # (Auto) 2.12 [place] # (Auto) 0.93 H Eos # (Auto) 0.45 Baso # (Auto) 0.02 Immature Gran # (Auto) 0.02 Polychromasia 1+ Anisocytosis Present PT 10.6 INR 1.0 APTT 24.2 PTT Ratio 0.9 Sodium Potassium Chloride Carbon Dioxide Anion Gap BUN Creatinine Est Cr Clr Drug Dosing Est GFR ( Amer) Est GFR (Non-Af Amer) BUN/Creatinine Ratio Glucose POC Glucose 93 Osmolality Calcium Magnesium Total Bilirubin AST ALT Alkaline Phosphatase Troponin I B-Natriuretic Peptide Total Protein Albumin Globulin Albumin/Globulin Ratio Lipase TSH Urine Color Urine Appearance Urine pH Ur Specific Radiant Urine Protein Urine Glucose (UA) Urine Ketones Urine Blood Urine Nitrite Urine Bilirubin Urine Urobilinogen Ur Leukocyte Esterase Urine WBC (Auto) Urine RBC (Auto) U Hyaline Cast (Auto) U Epithel Cells (Auto) Urine Bacteria (Auto) Urine Osmolality Ur Random Sodium SARS-CoV-2, RNA, NAAT 01/01/22 01/01/22 01/01/22 22:22 22:22 23:05 WBC RBC Hgb Hct MCV MCH MCHC RDW Std Deviation RDW Coeff of [place] Plt Count MPV Immature Gran % (Auto) Neut % (Auto) Lymph % (Auto) [place] % (Auto) Eos % (Auto) Baso % (Auto) Neut # (Auto) Lymph # (Auto) [place] # (Auto) Eos # (Auto) Baso # (Auto) Immature Gran # (Auto) Polychromasia Anisocytosis PT INR APTT PTT Ratio Sodium Cancelled Potassium Cancelled Chloride Cancelled Carbon Dioxide Cancelled Anion Gap Cancelled BUN Cancelled Creatinine Cancelled Est Cr Clr Drug Dosing Cancelled Est GFR ( Amer) Cancelled Est GFR (Non-Af Amer) Cancelled BUN/Creatinine Ratio Cancelled Glucose Cancelled POC Glucose Osmolality Calcium Cancelled Magnesium Cancelled Total Bilirubin Cancelled AST Cancelled ALT Cancelled Alkaline Phosphatase Cancelled Troponin I Cancelled B-Natriuretic Peptide 232 H Total Protein Cancelled Albumin Cancelled Globulin Cancelled Albumin/Globulin Ratio Cancelled Lipase TSH Cancelled Urine Color Urine Appearance Urine pH Ur Specific Radiant Urine Protein Urine Glucose (UA) Urine Ketones Urine Blood Urine Nitrite Urine Bilirubin Urine Urobilinogen Ur Leukocyte Esterase Urine WBC (Auto) Urine RBC (Auto) U Hyaline Cast (Auto) U Epithel Cells (Auto) Urine Bacteria (Auto) Urine Osmolality Ur Random Sodium SARS-CoV-2, RNA, NAAT 01/01/22 01/01/22 01/01/22 23:19 23:19 23:56 WBC RBC Hgb Hct MCV MCH MCHC RDW Std Deviation RDW Coeff of [place] Plt Count MPV Immature Gran % (Auto) Neut % (Auto) Lymph % (Auto) [place] % (Auto) Eos % (Auto) Baso % (Auto) Neut # (Auto) Lymph # (Auto) [place] # (Auto) Eos # (Auto) Baso # (Auto) Immature Gran # (Auto) Polychromasia Anisocytosis PT INR APTT PTT Ratio Sodium 131 L Potassium 4.5 Chloride 89 L Carbon Dioxide 36 H Anion Gap 6 BUN 34 H Creatinine 1.99 H Est Cr Clr Drug Dosing 33.9 Est GFR ( Amer) 28.0 Est GFR (Non-Af Amer) 24.1 BUN/Creatinine Ratio 17.1 Glucose 86 POC Glucose Osmolality Calcium 7.9 L Magnesium 2.4 Total Bilirubin 0.3 AST 25 ALT 14 Alkaline Phosphatase 104 Troponin I < 0.03 B-Natriuretic Peptide Total Protein 6.2 Albumin 2.7 L Globulin 3.5 Albumin/Globulin Ratio 0.8 L Lipase TSH 3.181 Urine Color Urine Appearance Urine pH Ur Specific Radiant Urine Protein Urine Glucose (UA) Urine Ketones Urine Blood Urine Nitrite Urine Bilirubin Urine Urobilinogen Ur Leukocyte Esterase Urine WBC (Auto) Urine RBC (Auto) U Hyaline Cast (Auto) U Epithel Cells (Auto) Urine Bacteria (Auto) Urine Osmolality Ur Random Sodium SARS-CoV-2, RNA, NAAT NEGATIVE 01/02/22 01/02/22 01/02/22 02:17 03:34 04:29 WBC RBC Hgb Hct MCV MCH MCHC RDW Std Deviation RDW Coeff of [place] Plt Count MPV Immature Gran % (Auto) Neut % (Auto) Lymph % (Auto) [place] % (Auto) Eos % (Auto) Baso % (Auto) Neut # (Auto) Lymph # (Auto) [place] # (Auto) Eos # (Auto) Baso # (Auto) Immature Gran # (Auto) Polychromasia Anisocytosis PT INR APTT PTT Ratio Sodium Potassium Chloride Carbon Dioxide Anion Gap BUN Creatinine Est Cr Clr Drug Dosing Est GFR ( Amer) Est GFR (Non-Af Amer) BUN/Creatinine Ratio Glucose POC Glucose 71 Osmolality 289 Calcium Magnesium Total Bilirubin AST ALT Alkaline Phosphatase Troponin I B-Natriuretic Peptide Total Protein Albumin Globulin Albumin/Globulin Ratio Lipase TSH Urine Color Yellow Urine Appearance Clear Urine pH 5.0 Ur Specific Radiant 1.006 Urine Protein Negative Urine Glucose (UA) Negative Urine Ketones Negative Urine Blood Negative Urine Nitrite Positive A Urine Bilirubin Negative Urine Urobilinogen Negative Ur Leukocyte Esterase 1+ H Urine WBC (Auto) 10-30 H Urine RBC (Auto) 0-4 U Hyaline Cast (Auto) 1-5 U Epithel Cells (Auto) 0-5 Urine Bacteria (Auto) 3+ H Urine Osmolality Ur Random Sodium SARS-CoV-2, RNA, NAAT 01/02/22 01/02/22 01/02/22 04:29 04:29 05:37 WBC RBC Hgb Hct MCV MCH MCHC RDW Std Deviation RDW Coeff of [place] Plt Count MPV Immature Gran % (Auto) Neut % (Auto) Lymph % (Auto) [place] % (Auto) Eos % (Auto) Baso % (Auto) Neut # (Auto) Lymph # (Auto) [place] # (Auto) Eos # (Auto) Baso # (Auto) Immature Gran # (Auto) Polychromasia Anisocytosis PT INR APTT PTT Ratio Sodium Potassium Chloride Carbon Dioxide Anion Gap BUN Creatinine Est Cr Clr Drug Dosing Est GFR ( Amer) Est GFR (Non-Af Amer) BUN/Creatinine Ratio Glucose POC Glucose 92 Osmolality Calcium Magnesium Total Bilirubin AST ALT Alkaline Phosphatase Troponin I B-Natriuretic Peptide Total Protein Albumin Globulin Albumin/Globulin Ratio Lipase TSH Urine Color Urine Appearance Urine pH Ur Specific Radiant Urine Protein Urine Glucose (UA) Urine Ketones Urine Blood Urine Nitrite Urine Bilirubin Urine Urobilinogen Ur Leukocyte Esterase Urine WBC (Auto) Urine RBC (Auto) U Hyaline Cast (Auto) U Epithel Cells (Auto) Urine Bacteria (Auto) Urine Osmolality 199 L Ur Random Sodium 50 SARS-CoV-2, RNA, NAAT 01/02/22 01/02/22 01/02/22 05:51 05:51 07:27 WBC 6.84 RBC 3.09 L Hgb 7.9 L Hct 27.0 L MCV 87.4 MCH 25.6 MCHC 29.3 L RDW Std Deviation 66.6 H RDW Coeff of [place] 20.9 H Plt Count 181 MPV 9.1 Immature Gran % (Auto) 0.3 Neut % (Auto) 52.5 Lymph % (Auto) 26.0 [place] % (Auto) 14.8 Eos % (Auto) 6.1 Baso % (Auto) 0.3 Neut # (Auto) 3.59 Lymph # (Auto) 1.78 [place] # (Auto) 1.01 H Eos # (Auto) 0.42 Baso # (Auto) 0.02 Immature Gran # (Auto) 0.02 Polychromasia 1+ Anisocytosis Present PT INR APTT PTT Ratio Sodium 133 L Potassium 4.0 Chloride 90 L Carbon Dioxide 40 H Anion Gap 3 BUN 33 H Creatinine 1.80 H Est Cr Clr Drug Dosing 37.4 Est GFR ( Amer) 31.6 Est GFR (Non-Af Amer) 27.2 BUN/Creatinine Ratio 18.3 Glucose 76 POC Glucose 91 Osmolality Calcium 7.8 L Magnesium Total Bilirubin AST ALT Alkaline Phosphatase Troponin I B-Natriuretic Peptide Total Protein Albumin Globulin Albumin/Globulin Ratio Lipase 6 L TSH Urine Color Urine Appearance Urine pH Ur Specific Radiant Urine Protein Urine Glucose (UA) Urine Ketones Urine Blood Urine Nitrite Urine Bilirubin Urine Urobilinogen Ur Leukocyte Esterase Urine WBC (Auto) Urine RBC (Auto) U Hyaline Cast (Auto) U Epithel Cells (Auto) Urine Bacteria (Auto) Urine Osmolality Ur Random Sodium SARS-CoV-2, RNA, NAAT Medications Administered Current Inpatient Medications Acetaminophen (Acetaminophen 325 Mg Tab) 650 mg PO Q4H PRN PRN Reason: Pain or Fever Stop: 02/01/22 03:17 Albuterol (Albuterol Hfa 8 Gm Inhaler) 2 puffs INH Q6R YELITZA Stop: 02/01/22 12:59 Ascorbic Acid (Ascorbic Acid 500 Mg Tab) 250 mg PO DAILY YELITZA Stop: 02/01/22 08:59 Last Admin: 01/02/22 07:57 Dose: 250 mg Documented by: Baclofen (Baclofen 10 Mg Tab) 5 mg PO BID YELITZA Stop: 02/01/22 08:59 Last Admin: 01/02/22 08:00 Dose: 5 mg Documented by: Carvedilol (Carvedilol 6.25 Mg Tab) 6.25 mg PO BID YELITZA Stop: 02/01/22 08:59 Last Admin: 01/02/22 07:57 Dose: 6.25 mg Documented by: Cyanocobalamin (Cyanocobalamin (B-12) 500 Mcg Tablet) 500 mcg PO DAILY YELITZA Stop: 02/01/22 08:59 Last Admin: 01/02/22 08:02 Dose: 500 mcg Documented by: Dextrose (Dextrose 50% 50 Ml Syringe) 25 - 50 ml IV UD PRN; Protocol PRN Reason: Hypoglycemia Protocol Stop: 02/01/22 03:17 Dofetilide (Dofetilide 125 Mcg Capsule) 250 mcg PO BID [facility] Stop: 02/01/22 08:59 Last Admin: 01/02/22 07:57 Dose: 250 mcg Documented by: Ertapenem (Ertapenem Consult Active) 1 ea N/A UD PRN PRN Reason: Consult Stop: 02/01/22 06:19 Ferrous Sulfate (Ferrous Sulfate 325 Mg Tab) 325 mg PO DAILY YELITZA Stop: 02/01/22 08:59 Last Admin: 01/02/22 08:02 Dose: 325 mg Documented by: Folic Acid (Folic Acid 1 Mg Tab) 1 mg PO DAILY YELITZA Stop: 02/01/22 08:59 Last Admin: 01/02/22 08:02 Dose: 1 mg Documented by: Glucagon (Glucagon For Inj 1 Mg Vial) 1 mg SQ UD PRN; Protocol PRN Reason: Hypoglycemia Protocol Stop: 02/01/22 03:17 Glucose (Glucose 10 Tabs/Tube) 4 - 8 tabs PO UD PRN; Protocol PRN Reason: Hypoglycemia Protocol Stop: 02/01/22 03:17 Glucose (Glucose 40% Gel 15 Gm Tube) 15 - 30 gm PO UD PRN; Protocol PRN Reason: Hypoglycemia Protocol Stop: 02/01/22 03:17 Promethazine HCl 12.5 mg/ (Sodium Chloride) 50.5 mls @ 202 mls/hr IV Q6H PRN PRN Reason: Nausea And Vomiting Stop: 02/01/22 03:17 Ertapenem 1,000 mg/ Sodium (Chloride) 60 mls @ 100 mls/hr IV Q24H YELITZA; Protocol Stop: 01/09/22 06:59 Last Infusion: 01/02/22 08:40 Dose: Infused Documented by: Insulin Aspart (Insulin Aspart Per Unit) 0 units SC ACHS [facility] Stop: 02/01/22 03:17 Last Admin: 01/02/22 08:57 Dose: Not Given Documented by: Insulin Glargine (Insulin Glargine Solostar 100 Units/Ml 3 Ml Pen) 5 units SC DAILY [facility] Stop: 02/01/22 08:59 Last Admin: 01/02/22 08:55 Dose: 5 units Documented by: Levothyroxine Sodium (Levothyroxine Sodium 125 Mcg Tablet) 125 mcg PO DAILYBB [facility] Stop: 02/01/22 06:29 Last Admin: 01/02/22 05:31 Dose: 125 mcg Documented by: Miscellaneous (Carbohydrates For Hypoglycemia ) 15 - 30 gm PO UD PRN PRN Reason: Hypoglycemia Protocol Stop: 02/01/22 03:17 Multivitamins (Multivitamin Tab) 1 tab PO DAILY [facility] Stop: 02/01/22 08:59 Last Admin: 01/02/22 08:02 Dose: 1 tab Documented by: Oxycodone HCl (Oxycodone Hcl 20 Mg Tabcr (Oxycontin)) 20 mg PO BID YELITZA Stop: 01/16/22 08:59 Last Admin: 01/02/22 08:58 Dose: 20 mg Documented by: Oxycodone HCl (Oxycodone Hcl Ir 5 Mg Tab (Immediate Release)) 10 mg PO Q6H PRN PRN Reason: Pain Stop: 01/16/22 03:17 Last Admin: 01/02/22 04:24 Dose: 10 mg Documented by: Pantoprazole Sodium (Pantoprazole 40 Mg Tab) 40 mg PO DAILY PRN PRN Reason: Abdominal Pain Stop: 02/01/22 03:17 Torsemide (Torsemide 10 Mg Tab) 10 mg PO BID17 [facility] Stop: 02/01/22 16:59 (1) Congestive heart failure Heart failure chronicity: acute Heart failure type: combined systolic and diastolic Qualified Code(s): I50.41 - Acute combined systolic (congestive) and diastolic (congestive) heart failure (2) COPD (chronic obstructive pulmonary disease) COPD type: unspecified COPD Qualified Code(s): J44.9 - Chronic obstructive pulmonary disease, unspecified
--- NOTE | 2022-01-02 12:13 | Nephrology Consultation ---
Date of Consultation January 02, 2022 Assessment & Plan (1) Electrolyte and fluid disorder: Profound volume overload in the setting of labile blood pressures, improving though overall from 80s systolic on presentation to 100s and 120s since. Chronically elevated carbon dioxide levels in the blood. Are stable. Chemistries acceptable for now. Agree with resuming outpatient torsemide customary dose Daily basic metabolic panel Added low sodium to diet orders and tighten fluid limit to 1.8 L daily Strict intake and output (2) Worsening renal function: Baseline creatinine is somewhat labile but runs generally to high ones. Her creatinine at d/c on 12/25 was 1.4; was 2 on admission last evening and 1.8 today. Her kidney function is worse than it was at hospital discharge recently, not so far from baseline. We will certainly continue to monitor. Possible causes of worsening include medication nonadherence and cardiorenal syndrome Daily basic metabolic panel No indication for dialysis at this time History of Present Illness Reason for Consultation: STACY on CKD Requesting Physician: Dr Strauss Attending Physician: Chris Mcnally MD History of Present Illness 76 y/o F whom I'm asked to see for STACY on CKD was admitted overnight with multifactorial dyspnea. PMH includes chronic respiratory failure on 3-4L 13/05, cor pulmonale/chronic heart failure pEF, class 3 obesity, sleep apnea intolerant of CPAP, chronic and recently worsened ambulatory dysfunction, chronic volume overload, chronic bob, bladder prolapse; DM on po meds, TIA, symptomatic pAF not on AC d/t LGIB, chronic pain on narcotics. her creatinine runs mid to high ones historically as OP (last labs in [facility] 05/2021); in similar range or better since October. Also hx of noncompliance when bladder removed. Admitted here Oct 2021 2 wks for Covid PNA; admitted 11/29-12/08 again for acute on chronic respiratory failure; SNF was recommended at d/c but pt declined and went to rehab then home. at last d/c, diltiazem was stopped. c/o ongoing fluid overload with seeping edema particularly at her L hip; feels her breathing is ok currently; no cough; no issues w/ bob; no digestive concerns. no f/c or decreased po. Her creatinine at d/c on 12/25 was 1.4; was 2 on admission last evening and 1.8 today. her BUN was doubled from 17 > 34; HC03 has been about 40; sodium has been consistently low 130s, K hovering in low to mid 4s. She was discharged from here on torsemide 10 milligrams daily, potassium chloride 10 mEq daily, spironolactone 12.5 mg daily. These medications were unchanged when she presented for readmission yesterday. Her allergy list is extensive as below. Allergies Allergy/AdvReac Type Severity Reaction Status Date / Time aspirin Allergy Severe HIVES, SOB Verified 01/02/22 00:45 Iodinated Contrast Media Allergy Severe "CAUSED Verified 01/02/22 00:45 ASTHMA ATTACK" & HIVES ipratropium Allergy Severe SHORTNESS Verified 01/02/22 00:45 OF BREATH metaproterenol [From Alupent] Allergy Severe EYES AND Verified 01/02/22 00:45 FACE SWELLING, SEVERE WHEEZING NSAIDS (Non-Steroidal Allergy Severe Hives Verified 01/02/22 00:45 Anti-Inflamma Penicillins Allergy Severe SOB, HIVES Verified 01/02/22 00:45 sotalol Allergy Severe increased Verified 01/02/22 00:45 breathing problems Sulfa (Sulfonamide Allergy Severe Anaphylaxis Verified 01/02/22 00:45 Antibiotics) tiotropium Allergy Severe SYMPTOMS Verified 01/02/22 00:45 [From Spiriva with GOT [employer]SE [employer]] INSTEAD OF BETTER WITH BREATHING arformoterol Allergy Intermediate TACHYCARDIA Verified 01/02/22 00:45 aspartame Allergy Intermediate HIVES, Verified 01/02/22 00:45 ITCHY ciprofloxacin Allergy Intermediate WHEEZING, Verified 01/02/22 00:45 NAUSEA clarithromycin [From Biaxin] Allergy Intermediate Unknown, ? Verified 01/02/22 00:45 WHEEZING , OR NAUSEA ? Fish Containing Products Allergy Intermediate BODY CAN'T Verified 01/02/22 00:45 ABSORB fish derived Allergy Intermediate Unknown Verified 01/02/22 00:45 latex Allergy Intermediate ITCHY/RASH Verified 01/02/22 00:45 nickel Allergy Intermediate RASH & Verified 01/02/22 00:46 BLISTERS pioglitazone [From Actos] Allergy Intermediate RETAINED Verified 01/02/22 00:46 FLUID povidone Allergy Intermediate BLISTER Verified 01/02/22 00:46 WITH TAPE shellfish derived Allergy Intermediate BODY CAN'T Verified 01/02/22 00:46 ABSORB, "SMELL LIKE A FISH" stevioside [From Stevia] Allergy Intermediate Wheezing Verified 01/02/22 00:46 sucralose Allergy Intermediate Wheezing Verified 01/02/22 00:46 [From Splenda (sucralose)] adhesive Allergy Mild BLISTERS Verified 01/02/22 00:46 WITH TAPE apixaban [From Eliquis] Allergy Mild SEE NOTES Verified 01/02/22 00:46 BELOW banana Allergy Mild "FEELS Verified 01/02/22 00:46 LIKE PEACH FUZZ IN MOUTH" chlorhexidine Allergy Mild BLISTERY Verified 01/02/22 00:46 RASH clindamycin Allergy Mild rash Verified 01/02/22 00:46 doxycycline Allergy Mild rash Verified 01/02/22 00:46 psyllium [From Metamucil] AdvReac Intermediate bloating Verified 01/02/22 00:46 meperidine AdvReac Mild Gastrointestinal Verified 01/02/22 00:46 Upset, N/V metformin [From Riomet] AdvReac Mild DIARRHEA Verified 01/02/22 00:46 WITH MORE THAN 1 A DAY morphine AdvReac Mild Gastrointestinal Verified 01/02/22 00:46 Upset,N/V tapentadol [From Nucynta] AdvReac Mild Nausea and Verified 01/02/22 00:46 vomiting egg AdvReac Verified 01/02/22 00:46 Egg Derived AdvReac Verified 01/02/22 00:46 Home Medications Medication Instructions Recorded Confirmed Type baclofen 10 mg tablet 5 mg PO BID 09/12/20 01/02/22 History cholecalciferol (vitamin D3) 25 25 mcg PO DAILY 09/12/20 01/02/22 History mcg (1,000 unit) capsule conjugated estrogens 0.625 mg/gram 0.625 mg VAGINAL 3XWK 09/12/20 01/02/22 History vaginal cream (Premarin) cyanocobalamin (vitamin B-12) 500 500 mcg PO DAILY 09/12/20 01/02/22 History mcg tablet dofetilide 250 mcg capsule 250 mcg PO BID 09/12/20 01/02/22 History hydrocortisone 2.5 % topical cream 1 applic [place] BID PRN 09/12/20 01/02/22 History with perineal applicator (Proctosol HC) meclizine 25 mg tablet 25 mg PO Q8H PRN 09/12/20 01/02/22 History metformin 500 mg tablet,extended 500 mg PO QPM 09/12/20 01/02/22 History release 24 hr multivitamin 1 tab PO DAILY 09/12/20 01/02/22 History potassium chloride 10 mEq 10 meq PO QAM 09/12/20 01/02/22 History tablet,extended release spironolactone 25 mg tablet 12.5 mg PO 3XWK 09/12/20 01/02/22 History torsemide 10 mg tablet 10 mg PO QAM 09/12/20 01/02/22 History acetaminophen 650 mg 650 mg PO UD PRN 09/28/20 01/02/22 History tablet,extended release (Tylenol 8 Hour) diclofenac sodium 2 % topical 1 packet TOPICAL UD PRN 09/28/20 01/02/22 History solution in packet magnesium 200 mg tablet 600 mg PO DAILY 09/28/20 01/02/22 History ondansetron HCl 4 mg tablet 4 mg PO Q8H PRN 09/28/20 01/02/22 History polyethylene glycol 3350 17 gram 17 g PO QAM PRN 09/28/20 01/02/22 History oral powder packet (Miralax) albuterol sulfate 90 mcg/actuation 2 inh INHALATION Q6H PRN #3 inhaler 11/11/20 01/02/22 Rx aerosol inhaler ferrous fumarate-vitamin C 200 mg 1 tab PO DAILY 03/01/21 01/02/22 History (66 mg iron)-125 mg tablet folic acid 1 mg tablet 1 mg PO DAILY 03/01/21 01/02/22 History nebulizers #1 ea 05/11/21 11/08/21 Rx albuterol sulfate 2.5 mg INHALATION Q4H PRN #180 ml 09/27/21 01/02/22 Rx benzonatate 100 mg capsule 100 mg PO TID PRN 11/08/21 01/02/22 History carvedilol 3.125 mg tablet 9.375 mg PO BID #180 tab 11/20/21 01/02/22 Rx levothyroxine 125 mcg tablet 125 mcg PO DAILYBB #30 tab 11/20/21 01/02/22 Rx (Synthroid) mupirocin 2 % topical ointment 1 applic TOPICAL BID PRN 11/28/21 01/02/22 History oxycodone 10 mg tablet 10 mg PO Q6H PRN 3 Days #10 tab 12/07/21 01/02/22 Rx oxycodone 20 mg tablet,crush 20 mg PO BID 01/02/22 01/02/22 History resistant,extended release 12 hr (OxyContin) pantoprazole 40 mg tablet,delayed 40 mg PO DAILY PRN 01/02/22 01/02/22 History release Patient History Medical History Asthma USED RESCUE INHALER LAST WEEKEND Back problem 3 DISCS PUSHING ON SCIATIC NERVE PER PT>CAUSES R LEG NUMBNESS AT TIMES LYING FLAT FOR EXTENDED TIME WILL CAUSE LEGS TO JUMP Chronic anticoagulation Chronic diastolic CHF (congestive heart failure) Chronic low blood pressure Chronic respiratory failure with hypoxia CKD (chronic kidney disease), stage III COPD (chronic obstructive pulmonary disease) Cor pulmonale, chronic Cushingoid side effect of steroids DM type 2 (diabetes mellitus, type 2) Dyslipidemia History of Meniere's disease History of TIA (transient ischemic attack) ? NEVER CONFIRMED (PT DOES NOT THINK SHE HAD TIA) Hx of vertigo Hypothyroidism Impingement syndrome of both shoulders Long COVID ZEYAD (obstructive sleep apnea) WEARS 3-4L CONT. Osteoarthritis Oxygen dependent 3-4L CONT. 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 Beliefs That Will Affect Care: None marital status: Current Living Situation: Family Current Living Situation Comment: lives with son How many Children do You have: 3 Other Information That Helps Us Care for You: No Feels Safe at Home: Yes Safety Concerns: Feels Safe At This Time Assistive Devices: Oxygen - Continuous and Wheelchair Review of Systems Review of Systems: All systems reviewed & are unremarkable except as noted in HPI & below Physical Exam Constitutional: well developed, well nourished, + obese and cooperative; no acute distress on 3LNC Eyes: EOM intact bilaterally ENMT: Ears: no external ear abnormality Nose: no external nose abnormality Mouth: + dry oral mucous membranes Neck: no nuchal rigidity Respiratory: normal respiratory effort Auscultation: + diminished lung sounds Cardiovascular: Rate/Rhythm: regular rate and regular rhythm Extremities: + edema (3+ BLE) Gastrointestinal (Abdomen): Inspection/Auscultation: normal bowel sounds Percussion/Palpation: abdomen soft; abdomen nontender marked anterior abdominal wall edema Musculoskeletal: Extremities: strength 5/5 throughout Skin: no rashes, warm and dry pallor Neurologic: miranda, fluent speech, no tremor Psychiatric: Orientation: oriented x 3 Genitourinary: bob w/ ample urine Results & Data ([facility]) Vital Signs (Past 12 Hours) Vital Signs Temp Pulse Pulse Resp BP BP Pulse Ox 01/02/22 11:35 36.9 C 68 19 95/58 L 96 01/02/22 08:19 36.9 C 75 19 108/59 L 95 01/02/22 06:20 69 01/02/22 04:21 36.8 C 83 16 122/60 95 01/02/22 03:08 70 01/02/22 02:00 68 18 106/54 L 98 01/02/22 01:30 67 17 114/56 L 98 01/02/22 00:30 66 18 88/48 L 96 Laboratory Results 01/02/22 05:51 01/02/22 05:[address] c-a-p non con No thyroid nodule identified. Subcentimeter paratracheal and subcarinal lymph no jazmín. The heart is upper limits of normal in size. No pericardial effusion. Mitral and aortic annular calcifications. No thoracic aortic aneurysm. Mild dilation of the main pulmonary artery measuring up to 3.7 cm. Trace right pleural effusion has decreased in size from prior. No pneumothorax or overt pulmonary edema. Bronchial wall thickening with mild right lung base mucous plugging. Subcentimeter calcified granuloma of the basal left lower lobe. Irregular right greater than left reticular interstitial and mixed groundglass and consolidative opacities are mildly improved from the 11/29/2019 study. No significant honeycombing. Suggested mild pulmonary emphysema. Mild bilateral intralobular septal thickening. The central airways are patent. Degenerative changes of the spine and shoulders. No acute fracture notified. CT ABDOMEN/PELVIS: No pneumatosis or pneumoperitoneum. The unenhanced spleen measures within the upper limits of normal in size. Marked pancreatic atrophy. Unremarkable adrenal glands. Cholecystectomy. Hepatic steatosis. Unremarkable kidneys. No urolith or hydronephrosis. Decompressed urinary bladder with Bob catheter in place. Urinary bladder wall thickening with perivesicular stranding. Uterus appears surgically absent. No adnexal mass lesion. No abdominal aortic aneurysm or adenopathy. Small hiatal hernia.No bowel obstruction or bowel wall thickening. Mild fecal re tention. Colonic diverticulosis. The appendix is not visualized. Mild asymmetric subcutaneous edema of the right lateral abdominal wall. Probable injection granuloma of the subcutaneous anterior abdominal wall, 1.3 cm. Degenerative changes of the spine, pelvis and hips. No acute fracture or destructive bone lesion identified. Severe L2-L3 intervertebral disc space narrowing. IMPRESSION: 1. Mildly improved aeration of the lungs compared to the 11/29/2021 study with persistent right greater than left reticular interstitial with multilobar patchy groundglass and consolidative opacities. 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 Residual or recurrent pneumonia would be difficult to exclude. 2. Mild emphysema with bronchitis and mild bibasilar mucous plugging. 3. Trace right pleural effusion has decreased in size from prior. 4. No bowel obstruction or bowel wall thickening. 5. Urinary bladder wall thickening with perivesicular stranding. Correlate with urinalysis. 6. Additional findings as above.
--- NOTE | 2022-01-02 12:45 | Hospitalist Progress Note ---
Date of Service January 02, 2022 Assessment & Plan (1) History of noncompliance with medical treatment: (2) Congestive heart failure: (3) Leg edema: Plan: 76-year-old female w/ PMH of type 2 diabetes, hypothyroidism, hyperlipidemia, COPD, on chronic oxygen baseline 3 liters oxygen, sleep apnea not on CPAP - intolerant as per the patient, paroxysmal atrial fibrillation, cor pulmonale, chronic essential hypertension, morbid obesity, irritable bowel syndrome, stage III chronic kidney disease, mixed stress and urge incontinence, chronic pain syndrome, TIA. Patient presented 01/01 to our ED with complaint of progressive fluid retention along with worsening shortness of breath, denies fever and aspiration, reports compliance with home medication. 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 She is being managed for the following: #. Acute on chronic heart failure with preserved ejection fraction #. Possible cardiorenal syndrome Baseline oxygen 3 L with rest and 4 L with activity --> patient has not required more than 4 L in the ED. Patient reports increasing bilateral lower extremity swelling prior to arrival Admitting CXR: Concern for developing fibrosis versus infectious process Admitting CTAP and CT chest: Suggestive of post inflammatory fibrosis, urinary bladder wall thickening with perivesicular stranding/correlate with urinalysis. Admitting: WBC WNL, afebrile, no urinary complaints per patient, BNP 232 (around her baseline) 11/29 echo reviewed: Ejection fraction greater than 70%, hyperdynamic left ventricle with normal left ventricle size and normal left ventricular wall thickness. Possible cardiorenal syndrome versus dietary noncompliance; Patient reports medication compliance. Pt does have history noncompliance with meds. Cardiology evaluated the patient, appreciate recommendation. Continue with strict I's and O's, daily weights, fluid restriction #. Concern for HCAP Patient reports increased cough but denies aspiration Admitting imaging suspicious for infectious process in the lungs Patient started on ertapenem 01/02, continue with the same Continue to monitor. #. STACY with CKD Baseline creatinine around 1.3-1.5 Admitting Cr 1.99, slowly improving Monitor BMP daily, continue with diuresis, appreciate nephrology recommendation #. Other chronic medical conditions: Sleep apnea CPAP intolerant, diabetes, hypothyroidism, electrolyte disturbances Continue with/resume home medications as and when appropriate. Patient was to get sleep study as an outpatient. On insulin sliding scale #. History of A. fib Continue with home meds, Coreg dose has been decreased at admission Not on anticoagulation, Xarelto was stopped because of history of hematochezia Patient has historically denied Cardizem vehemently multiple times. Continue to monitor over telemetry, currently heart rate under control. #. COPD Patient has declined Incruse Ellipta in the past, continue with home inhalers #. Chronic pain Patient points to multiple joint pains in the body which per her are at baseline Continue with home medications. #. Anemia of chronic disease: Baseline hemoglobin 7-8 Continue to monitor hemoglobin daily and as needed. Continue with iron supplementation DVT prophylaxis. SCDs Re: hx of GIB Full code Disposition: PT/OT, CM to assist with DC planning. Admission and Anticipated Discharge Date Admission Date: January 02, 2022 Subjective Patient seen and examined at bedside as a follow-up of acute on chronic heart failure with preserved ejection fraction, likely HCAP and STACY over CKD. Patient lying in bed, on 4 L nasal cannula oxygen, NAD, no new acute events overnight. Patient reports pain in multiple joints all over the body which per her are at baseline, patient reports increasing shortness of breath with minimal movement, denies fever/chills/changes in bowel or bladder habits lately/headache/dizziness/other review of symptoms. Physical Exam Physical Exam: GENERAL: Alert and oriented x3. NAD, on 4L, morbidly obese HEENT: No pallor, no icterus. Pupils equal, round and reactive to light. Oral mucosa moist. NECK: No JVD, no neck masses. HEART: S1 and S2 heard. Regular rate and rhythm. No murmur, no gallop. RESPIRATORY SYSTEM: Normal AP diameter. No accessory muscle use. + minimal wheezing, b/l crackles. ABDOMEN: Soft, bowel sounds present, nontender, no distention. CENTRAL NERVOUS SYSTEM: No facial droop. Speech is clear. Obeys simple commands. Moves extremities. EXTREMITIES: BLE 2+ edema, no erythema seen. Results & Data Results & Data ([facility]) Vital Signs (Past 12 Hours) Vital Signs Temp Pulse Pulse Resp BP BP Pulse Ox 01/02/22 11:35 36.9 C 68 19 95/58 L 96 01/02/22 08:19 36.9 C 75 19 108/59 L 95 01/02/22 06:20 69 01/02/22 04:21 36.8 C 83 16 122/60 95 01/02/22 03:08 70 01/02/22 02:00 68 18 106/54 L 98 01/02/22 01:30 67 17 114/56 L 98 01/02/22 00:30 66 18 88/48 L 96 (1) Congestive heart failure Heart failure chronicity: acute Heart failure type: combined systolic and diastolic Qualified Code(s): I50.41 - Acute combined systolic (congestive) and diastolic (congestive) heart failure
[2022-01-02] MEDS ORDERED: ALBUTEROL HFA 8 GM INHALER INH SCH (13:00)
[2022-01-02] MEDS: TORSEMIDE 10 MG TAB PO SCH (18:11)
[2022-01-03] MEDS: LEVOTHYROXINE SODIUM 125 MCG TABLET PO SCH (06:01)
[2022-01-03] MEDS: oxyCODONE HCL IR 5 MG TAB (IMMEDIATE RELEASE) PO PRN ×2 (06:05→13:59)
--- NOTE | 2022-01-03 06:09 | Electrocardiogram Report ---
Test Reason : Blood Pressure : / mmHG Vent. Rate : 061 BPM Atrial Rate : 060 BPM P-R Int : 200 ms QRS Dur : 086 ms QT Int : 434 ms P-R-T Axes : 063 -58 033 degrees QTc Int : 436 ms Sinus rhythm with sinus arrhythmia Left axis deviation Low voltage QRS Abnormal ECG When compared with ECG of 04-DEC-2021 19:32, Sinus rhythm has replaced Atrial fibrillation HR has decreased by 73 bpm Confirmed by Yvan Loving ([id number]) on 01/03/2022 6:09:10 AM Referred By: REFERRED SELF Confirmed By:Yvan Loving
[2022-01-03 08:01] LABS: Hematocrit (blood only) 30.1 % (37-47); Hemoglobin 8.7 g/dL (12.0-16.0); Mean Corpuscular Hemoglobin 25.8 pg (25-34); Mean Corpuscular Hgb Conc 28.9 g/dL (32-36); Mean Corpuscular Volume 89.3 fL (80-100); Platelet Count 213 K/uL (130-400); RDW Coefficient of Variation 21.4 % (11.5-14.5); Red Blood Count 3.37 M/uL (4.2-5.4); White Blood Count 6.45 K/uL (4.8-10.8)
[2022-01-03 08:14] LABS: BUN Creatinine Ratio 16.5 (10-20); Calcium 8.6 mg/dl (8.5-10.1); Creatinine Clr Calc Pharmacy 38.2 ml/min; Est GFR (African American) 32.4 ml/min; Magnesium 2.1 mg/dl (1.7-2.4); Phosphorus 4.1 mg/dl (2.5-4.9); Potassium 3.9 mmol/L (3.5-5.1)
[2022-01-03] MEDS: ERTAPENEM SODIUM 1,000 MG in SODIUM CHLORIDE 0.9% 50 ML IV SCH (08:37)
[2022-01-03] MEDS: CYANOCOBALAMIN (B-12) 500 MCG TABLET PO SCH (08:37)
[2022-01-03] MEDS: MULTIVITAMIN TAB PO SCH (08:37)
[2022-01-03] MEDS: FERROUS SULFATE 325 MG TAB PO SCH (08:37)
[2022-01-03] MEDS: ASCORBIC ACID 500 MG TAB PO SCH (08:37)
[2022-01-03] MEDS: carvediloL 6.25 MG TAB PO SCH ×3 (08:38→15:22)
[2022-01-03] MEDS: BACLOFEN 10 MG TAB PO SCH ×2 (08:38→21:08)
[2022-01-03] MEDS: DOFETILIDE 125 MCG CAPSULE PO SCH ×2 (08:38→21:08)
[2022-01-03] MEDS: TORSEMIDE 10 MG TAB PO SCH ×2 (08:38→17:11)
[2022-01-03] MEDS: FOLIC ACID 1 MG TAB PO SCH (08:38)
[2022-01-03] MEDS: oxyCODONE HCL 20 MG TABCR (OxyCONTIN) PO SCH ×2 (08:45→21:08)
[2022-01-03] MEDS: INSULIN ASPART PER UNIT SC SCH ×4 (09:20→21:04)
[2022-01-03] MEDS: INSULIN GLARGINE SOLOSTAR 100 UNITS/ML 3 ML PEN SC SCH (09:20)
--- NOTE | 2022-01-03 10:47 | Nephrology Progress Note ---
Date of Service January 03, 2022 Assessment & Plan (1) Electrolyte and fluid disorder: Plan: Profound volume overload in the setting of labile blood pressures, improving though overall in 100s systolic. Chronically elevated carbon dioxide levels in the blood d/t her obligate diuretics, worsening and borderline too high but for today ok. Chemistries acceptable for now, though bicarb level high. added hold parameter to bid torsemide 10 mg dose; this is her OP dose Daily basic metabolic panel cont low sodium to diet orders and tightened further fluid limit to 1.5 L daily Strict intake and output to continue >volume status will only worsen if HR and rhythm uncontrolled (2) Worsening renal function: Plan: Baseline creatinine is somewhat labile but runs generally to high ones. Her creatinine at d/c on 12/25 was 1.4; was 2 on admission last evening and since 01/02 plateau'd at 1.8. Her kidney function is worse than it was at hospital discharge recently, though not so far from baseline. We will certainly continue to monitor. Possible causes of worsening include medication nonadherence and cardiorenal syndrome Daily basic metabolic panel No indication for dialysis at this time -diuretics as above Admission and Anticipated Discharge Date Admission Date: January 02, 2022 Subjective refused some meds this am and now in AF w/ HR 110-130s while I was in room at about 1530. no worsening sob or CP or edema but minimal improvement in edema. Review of Systems Review of Systems: All systems reviewed & are unremarkable except as noted in Subjective Physical Exam Constitutional: well developed, well nourished, + obese and cooperative; no acute distress Eyes: EOM intact bilaterally ENMT: Ears: no external ear abnormality Nose: no external nose abnormality Mouth: + dry oral mucous membranes Neck: no nuchal rigidity Respiratory: normal respiratory effort Auscultation: + diminished lung sounds Cardiovascular: Rate/Rhythm: + tachycardic and + irregularly irregular Extremities: + edema (3+ BLE) Gastrointestinal (Abdomen): Inspection/Auscultation: normal bowel sounds Percussion/Palpation: abdomen soft; abdomen nontender Musculoskeletal: Extremities: strength 5/5 throughout Skin: no rashes, warm and dry Neurologic: miranda, fluent speech Psychiatric: Orientation: oriented x 3 Genitourinary: bob + Results & Data ([facility]) Vital Signs (Past 12 Hours) Vital Signs Temp Pulse Pulse Resp BP Pulse Ox 01/03/22 07:15 36.5 C 72 19 109/45 L 95 01/03/22 03:50 36.6 C 69 20 101/50 L 95 01/03/22 00:53 68 01/02/22 23:07 36.8 C 67 16 102/48 L 99 Laboratory Results 01/03/22 07:17 01/03/22 07:17
--- NOTE | 2022-01-03 12:21 | Hospitalist Progress Note ---
Date of Service January 03, 2022 Assessment & Plan (1) History of noncompliance with medical treatment: (2) Congestive heart failure: (3) Leg edema: Plan: 76-year-old female w/ PMH of type 2 diabetes, hypothyroidism, hyperlipidemia, COPD, on chronic oxygen baseline 3 liters oxygen, sleep apnea not on CPAP - intolerant as per the patient, paroxysmal atrial fibrillation, cor pulmonale, chronic essential hypertension, morbid obesity, irritable bowel syndrome, stage III chronic kidney disease, mixed stress and urge incontinence, chronic pain syndrome, TIA. Patient presented 01/01 to our ED with complaint of progressive fluid retention along with worsening shortness of breath, denies fever and aspiration, reports compliance with home medication. Of note, patient was recently discharged from hospital after being treated for respiratory failure secondary to COPD exacerbation secondary to COVID-19 infection to rehab and then transitioned to home 1 week ago [employer]. She is being managed for the following: #. Acute on chronic heart failure with preserved ejection fraction #. Possible cardiorenal syndrome Baseline oxygen 3 L with rest and 4 L with activity --> patient has not required more than 4 L in the ED. Patient reports increasing bilateral lower extremity swelling prior to arrival Admitting CXR: Concern for developing fibrosis versus infectious process Admitting CTAP and CT chest: Suggestive of post inflammatory fibrosis, urinary bladder wall thickening with perivesicular stranding/correlate with urinalysis. Admitting: WBC WNL, afebrile, no urinary complaints per patient, BNP 232 (around her baseline) 11/29 echo reviewed: Ejection fraction greater than 70%, hyperdynamic left ventricle with normal left ventricle size and normal left ventricular wall thickness. Possible cardiorenal syndrome versus dietary noncompliance; Patient reports medication compliance. Pt does have history of noncompliance with meds. Cardiology evaluated the patient, appreciate recommendation. Pt on Torsemide continue to monitor volume status. Continue with strict I's and O's, daily weights, fluid restriction #. Concern for HCAP Patient reports increased cough but denies aspiration Admitting imaging suspicious for infectious process in the lungs Patient started on ertapenem 01/02, continue with the same Continue to monitor. #. STACY with CKD Baseline creatinine around 1.3-1.5 Admitting Cr 1.99, sluggishly improving Monitor BMP daily, continue with diuresis, appreciate nephrology recommendation #. Other chronic medical conditions: Sleep apnea CPAP intolerant, diabetes, hypothyroidism, electrolyte disturbances Continue with/resume home medications as and when appropriate. Patient was to get sleep study as an outpatient. On insulin sliding scale #. History of A. fib Continue with home meds, Coreg dose has been decreased at admission Not on anticoagulation, Xarelto was stopped because of history of hematochezia Patient has historically denied Cardizem vehemently multiple times. Continue to monitor over telemetry, currently heart rate under control. #. COPD Patient has declined Incruse Ellipta in the past, continue with home inhalers #. Chronic pain Patient points to multiple joint pains in the body which per her are at baseline Continue with home medications. #. Anemia of chronic disease: Baseline hemoglobin 7-8 Continue to monitor hemoglobin daily and as needed. Continue with iron supplementation DVT prophylaxis. SCDs Re: hx of GIB Full code Disposition: PT/OT, CM to assist with DC planning. Admission and Anticipated Discharge Date Admission Date: January 02, 2022 Subjective Patient seen and examined at bedside as a follow-up of acute on chronic heart failure with preserved ejection fraction, likely HCAP and STACY over CKD. Patient lying in bed, on 4 L nasal cannula oxygen, NAD, no new acute events overnight. Patient reports chronic symptoms at baseline, reports no increased SOB, denies fever/chills/changes in bowel or bladder habits lately/headache/dizziness/other review of symptoms. She reports eating OK. Telemetry reviewed, sinus rhythm in 60-70s overnight and in AM. Physical Exam Physical Exam: GENERAL: Alert and oriented x3. NAD, on 4L, morbidly obese HEENT: No pallor, no icterus. Pupils equal, round and reactive to light. Oral mucosa moist. NECK: No JVD, no neck masses. HEART: S1 and S2 heard. Regular rate and rhythm. No murmur, no gallop. RESPIRATORY SYSTEM: Normal AP diameter. No accessory muscle use. + minimal wheezing, b/l crackles --> improving ABDOMEN: Soft, bowel sounds present, nontender, no distention. CENTRAL NERVOUS SYSTEM: No facial droop. Speech is clear. Obeys simple commands. Moves extremities. EXTREMITIES: BLE 2+ edema, no erythema seen. UC w/ light yellow collection in situ Results & Data Results & Data ([place]) Vital Signs (Past 12 Hours) Vital Signs Temp Pulse Pulse Resp BP Pulse Ox 01/03/22 07:15 36.5 C 72 19 109/45 L 95 01/03/22 03:50 36.6 C 69 20 101/50 L 95 01/03/22 00:53 68 (1) Congestive heart failure Heart failure chronicity: acute Heart failure type: combined systolic and diastolic Qualified Code(s): I50.41 - Acute combined systolic (congestive) and diastolic (congestive) heart failure
--- NOTE | 2022-01-03 13:24 | Cardiology Progress Note ---
Date of Service January 03, 2022 Assessment & Plan (1) COPD (chronic obstructive pulmonary disease): (2) ZEYAD (obstructive sleep apnea): (3) Paroxysmal atrial fibrillation: (4) DM type 2 (diabetes mellitus, type 2): (5) CKD (chronic kidney disease), stage III: (6) Chronic diastolic CHF (congestive heart failure): (7) Leg edema: (8) Congestive heart failure: (9) History of noncompliance with medical treatment: Plan: I spoke to the patient today regarding her need to be compliant with medications. She is agreeable to resume the carvedilol and hopefully she will return back to normal sinus rhythm. Nephrology's note appreciated. Admission and Anticipated Discharge Date Admission Date: January 02, 2022 Subjective The patient is refusing medications specifically carvedilol which she says makes her leg hurt. She is now in atrial fibrillation with RVR but asymptomatic. Review of Systems Review of Systems: Review of Systems: See HPI for pertinent positives. All other 10 point review of systems are negative. Physical Exam Physical Exam: General: no acute distress and stated age Head: normocephalic, no masses, lesions, tenderness or abnormalities Eyes: conjunctiva are pink and non-injected, sclera clear Neck: supple, no adenopathy, no bruits, normal jugular venous pulse, no hepatojugular reflux Chest: normal shape and normal respiratory effort Lungs: clear to auscultation and percussion Cardiac Exam: - irregular rate & rhythm, no murmurs gallops or rubs - normal S1, normal S2 Pulses: 2(+) throughout Abdomen: abdomen soft, non-tender, no abnormal masses and no hepatosplenomegaly Musculoskeletal: no gait disturbance, no joint inflammation, no deforming arthritis Extremities: Bilateral lower extremity edema Neuro: grossly normal exam Results & Data ([facility]) Vital Signs (Past 12 Hours) Vital Signs Temp Pulse Pulse Resp BP Pulse Ox 01/03/22 08:00 75 01/03/22 07:15 36.5 C 72 19 109/45 L 95 01/03/22 03:50 36.6 C 69 20 101/50 L 95 Laboratory Results Laboratory Results - last 24 hr 01/02/22 01/02/22 01/03/22 16:18 20:40 07:17 WBC 6.45 RBC 3.37 L Hgb 8.7 L Hct 30.1 L MCV 89.3 MCH 25.8 MCHC 28.9 L RDW Std Deviation 70.0 H RDW Coeff of [place] 21.4 H Plt Count 213 MPV 9.0 Sodium Potassium Chloride Carbon Dioxide Anion Gap BUN Creatinine Est Cr Clr Drug Dosing Est GFR ( Amer) Est GFR (Non-Af Amer) BUN/Creatinine Ratio Glucose POC Glucose 115 H 111 H Calcium Phosphorus Magnesium 01/03/22 01/03/22 01/03/22 07:17 07:17 10:58 WBC RBC Hgb Hct MCV MCH MCHC RDW Std Deviation RDW Coeff of [place] Plt Count MPV Sodium 137 Potassium 3.9 Chloride 91 L Carbon Dioxide 44 H* Anion Gap 2 L BUN 29 H Creatinine 1.76 H Est Cr Clr Drug Dosing 38.2 Est GFR ( Amer) 32.4 Est GFR (Non-Af Amer) 28.0 BUN/Creatinine Ratio 16.5 Glucose 85 POC Glucose 86 66 L* Calcium 8.6 Phosphorus 4.1 Magnesium 2.1 01/03/22 01/03/22 11:00 11:19 WBC RBC Hgb Hct MCV MCH MCHC RDW Std Deviation RDW Coeff of [place] Plt Count MPV Sodium Potassium Chloride Carbon Dioxide Anion Gap BUN Creatinine Est Cr Clr Drug Dosing Est GFR ( Amer) Est GFR (Non-Af Amer) BUN/Creatinine Ratio Glucose POC Glucose 65 L* 76 Calcium Phosphorus Magnesium Medications Administered Current Inpatient Medications Acetaminophen (Acetaminophen 325 Mg Tab) 650 mg PO Q4H PRN PRN Reason: Pain or Fever Stop: 02/01/22 03:17 Albuterol (Albuterol Hfa 8 Gm Inhaler) 2 puffs INH Q4 PRN PRN Reason: Wheezing Stop: 02/01/22 11:59 Ascorbic Acid (Ascorbic Acid 500 Mg Tab) 250 mg PO DAILY [facility] Stop: 02/01/22 08:59 Last Admin: 01/03/22 08:37 Dose: 250 mg Documented by: Baclofen (Baclofen 10 Mg Tab) 5 mg PO BID YELITZA Stop: 02/01/22 08:59 Last Admin: 01/03/22 08:38 Dose: 5 mg Documented by: Carvedilol (Carvedilol 6.25 Mg Tab) 6.25 mg PO BID [facility] Stop: 02/01/22 08:59 Last Admin: 01/03/22 13:16 Dose: 6.25 mg Documented by: Cyanocobalamin (Cyanocobalamin (B-12) 500 Mcg Tablet) 500 mcg PO DAILY [facility] Stop: 02/01/22 08:59 Last Admin: 01/03/22 08:37 Dose: 500 mcg Documented by: Dextrose (Dextrose 50% 50 Ml Syringe) 25 - 50 ml IV UD PRN; Protocol PRN Reason: Hypoglycemia Protocol Stop: 02/01/22 03:17 Dofetilide (Dofetilide 125 Mcg Capsule) 250 mcg PO BID YELITZA Stop: 02/01/22 08:59 Last Admin: 01/03/22 08:38 Dose: 250 mcg Documented by: Ertapenem (Ertapenem Consult Active) 1 ea N/A UD PRN PRN Reason: Consult Stop: 02/01/22 06:19 Ferrous Sulfate (Ferrous Sulfate 325 Mg Tab) 325 mg PO DAILY [facility] Stop: 02/01/22 08:59 Last Admin: 01/03/22 08:37 Dose: 325 mg Documented by: Folic Acid (Folic Acid 1 Mg Tab) 1 mg PO DAILY [facility] Stop: 02/01/22 08:59 Last Admin: 01/03/22 08:38 Dose: 1 mg Documented by: Glucagon (Glucagon For Inj 1 Mg Vial) 1 mg SQ UD PRN; Protocol PRN Reason: Hypoglycemia Protocol Stop: 02/01/22 03:17 Glucose (Glucose 10 Tabs/Tube) 4 - 8 tabs PO UD PRN; Protocol PRN Reason: Hypoglycemia Protocol Stop: 02/01/22 03:17 Glucose (Glucose 40% Gel 15 Gm Tube) 15 - 30 gm PO UD PRN; Protocol PRN Reason: Hypoglycemia Protocol Stop: 02/01/22 03:17 Promethazine HCl 12.5 mg/ (Sodium Chloride) 50.5 mls @ 202 mls/hr IV Q6H PRN PRN Reason: Nausea And Vomiting Stop: 02/01/22 03:17 Ertapenem 1,000 mg/ Sodium (Chloride) 60 mls @ 100 mls/hr IV Q24H [facility]; Protocol Stop: 01/09/22 06:59 Last Infusion: 01/03/22 09:21 Dose: Infused Documented by: Insulin Aspart (Insulin Aspart Per Unit) 0 units SC ACHS [facility] Stop: 02/01/22 03:17 Last Admin: 01/03/22 12:02 Dose: Not Given Documented by: Levothyroxine Sodium (Levothyroxine Sodium 125 Mcg Tablet) 125 mcg PO DAILYBB YELITZA Stop: 02/01/22 06:29 Last Admin: 01/03/22 06:01 Dose: 125 mcg Documented by: Miscellaneous (Carbohydrates For Hypoglycemia ) 15 - 30 gm PO UD PRN PRN Reason: Hypoglycemia Protocol Stop: 02/01/22 03:17 Last Admin: 01/03/22 11:08 Dose: 15 gm Documented by: Multivitamins (Multivitamin Tab) 1 tab PO DAILY YELITZA Stop: 02/01/22 08:59 Last Admin: 01/03/22 08:37 Dose: 1 tab Documented by: Oxycodone HCl (Oxycodone Hcl 20 Mg Tabcr (Oxycontin)) 20 mg PO BID YELITZA Stop: 01/16/22 08:59 Last Admin: 01/03/22 08:45 Dose: 20 mg Documented by: Oxycodone HCl (Oxycodone Hcl Ir 5 Mg Tab (Immediate Release)) 10 mg PO Q6H PRN PRN Reason: Pain Stop: 01/16/22 03:17 Last Admin: 01/03/22 06:05 Dose: 10 mg Documented by: Pantoprazole Sodium (Pantoprazole 40 Mg Tab) 40 mg PO DAILY PRN PRN Reason: Abdominal Pain Stop: 02/01/22 03:17 Polyethylene Glycol (Polyethylene (Miralax) 17 Gm Pack) 17 gm PO DAILY PRN PRN Reason: Constipation Stop: 02/02/22 10:56 Torsemide (Torsemide 10 Mg Tab) 10 mg PO BID17 [facility] Stop: 02/01/22 16:59 Last Admin: 01/03/22 08:38 Dose: 10 mg Documented by: (1) Congestive heart failure Heart failure chronicity: acute Heart failure type: combined systolic and diastolic Qualified Code(s): I50.41 - Acute combined systolic (congestive) and diastolic (congestive) heart failure (2) COPD (chronic obstructive pulmonary disease) COPD type: unspecified COPD Qualified Code(s): J44.9 - Chronic obstructive pulmonary disease, unspecified
[2022-01-03] MEDS: POLYETHYLENE (MIRALAX) 17 GM PACK PO PRN (13:30)
[2022-01-03] MEDS ORDERED: Nursing to Pharmacy Communication SCH (15:30)
[2022-01-04] MEDS: LEVOTHYROXINE SODIUM 125 MCG TABLET PO SCH (06:08)
[2022-01-04 06:50] LABS: Hematocrit (blood only) 31.6 % (37-47); Hemoglobin 8.9 g/dL (12.0-16.0); Mean Corpuscular Hemoglobin 24.9 pg (25-34); Mean Corpuscular Hgb Conc 28.2 g/dL (32-36); Mean Corpuscular Volume 88.5 fL (80-100); Mean Platelet Volume 8.9 fL (7.4-10.4); Platelet Count 219 K/uL (130-400); RDW Coefficient of Variation 21.3 % (11.5-14.5); RDW Standard Deviation 69.8 fL (36.4-46.3); Red Blood Count 3.57 M/uL (4.2-5.4); White Blood Count 6.46 K/uL (4.8-10.8)
[2022-01-04 07:20] LABS: BUN Creatinine Ratio 15.1 (10-20); Calcium 8.5 mg/dl (8.5-10.1); Creatinine Clr Calc Pharmacy 34.3 ml/min; Est GFR (African American) 29.2 ml/min; Est GFR (Non-African American) 25.2 ml/min; Phosphorus 3.8 mg/dl (2.5-4.9); Potassium 3.9 mmol/L (3.5-5.1)
[2022-01-04] MEDS: ERTAPENEM SODIUM 1,000 MG in SODIUM CHLORIDE 0.9% 50 ML IV SCH (07:28)
[2022-01-04] MEDS: INSULIN ASPART PER UNIT SC SCH ×4 (08:46→21:28)
[2022-01-04] MEDS: CYANOCOBALAMIN (B-12) 500 MCG TABLET PO SCH (09:06)
[2022-01-04] MEDS: FERROUS SULFATE 325 MG TAB PO SCH (09:06)
[2022-01-04] MEDS: oxyCODONE HCL 20 MG TABCR (OxyCONTIN) PO SCH ×2 (09:06→21:28)
[2022-01-04] MEDS: FOLIC ACID 1 MG TAB PO SCH (09:06)
[2022-01-04] MEDS: BACLOFEN 10 MG TAB PO SCH ×2 (09:07→21:27)
[2022-01-04] MEDS: ASCORBIC ACID 500 MG TAB PO SCH (09:08)
[2022-01-04] MEDS: TORSEMIDE 10 MG TAB PO SCH ×2 (09:10→16:55)
[2022-01-04] MEDS: carvediloL 6.25 MG TAB PO SCH (09:11)
[2022-01-04] MEDS: DOFETILIDE 125 MCG CAPSULE PO SCH ×2 (09:11→21:27)
[2022-01-04] MEDS ORDERED: METOPROLOL TARTRATE 1 MG/ML VIAL IV STA (09:22)
[2022-01-04] MEDS: MULTIVITAMIN TAB PO SCH (09:44)
[2022-01-04] MEDS ORDERED: MEROPENEM CONSULT ACTIVE PRN (12:21)
[2022-01-04] MEDS: MEROPENEM 500 MG in SYRINGE 0 ML IV SCH ×2 (12:39→21:28)
--- NOTE | 2022-01-04 13:32 | Cardiology Progress Note ---
Date of Service January 04, 2022 Assessment & Plan (1) COPD (chronic obstructive pulmonary disease): (2) ZEYAD (obstructive sleep apnea): (3) Paroxysmal atrial fibrillation: (4) DM type 2 (diabetes mellitus, type 2): (5) CKD (chronic kidney disease), stage III: (6) Chronic diastolic CHF (congestive heart failure): (7) Leg edema: (8) Congestive heart failure: (9) History of noncompliance with medical treatment: Plan: The patient remains in atrial fibrillation with heart rates in the 1 teens. We will increase her carvedilol. The patient is not on anticoagulation due to history of GI bleeding. Admission and Anticipated Discharge Date Admission Date: January 02, 2022 Subjective The patient appears to be resting comfortably. Review of Systems Review of Systems: Review of Systems: See HPI for pertinent positives. All other 10 point review of systems are negative. Physical Exam Physical Exam: General: no acute distress and stated age Head: normocephalic, no masses, lesions, tenderness or abnormalities Eyes: conjunctiva are pink and non-injected, sclera clear Neck: supple, no adenopathy, no bruits, normal jugular venous pulse, no hepatojugular reflux Chest: normal shape and normal respiratory effort Lungs: clear to auscultation and percussion Cardiac Exam: - irregular rate & rhythm, no murmurs gallops or rubs - normal S1, normal S2 Pulses: 2(+) throughout Abdomen: abdomen soft, non-tender, no abnormal masses and no hepatosplenomegaly Musculoskeletal: no gait disturbance, no joint inflammation, no deforming arthritis Extremities: Bilateral lower extremity edema Neuro: grossly normal exam Results & Data ([facility]) Vital Signs (Past 12 Hours) Vital Signs Temp Pulse Pulse Resp BP BP Pulse Ox 01/04/22 11:43 36.5 C 114 H 18 79/50 L 97 01/04/22 11:41 124 H 01/04/22 10:44 120 H 88/58 L 01/04/22 07:50 36.6 C 118 H 21 88/64 L 95 01/04/22 03:53 36.8 C 139 H 20 106/68 94 Laboratory Results Laboratory Results - last 24 hr 01/03/22 01/03/22 01/04/22 16:07 20:49 06:04 WBC 6.46 RBC 3.57 L Hgb 8.9 L Hct 31.6 L MCV 88.5 MCH 24.9 L MCHC 28.2 L RDW Std Deviation 69.8 H RDW Coeff of [place] 21.3 H Plt Count 219 MPV 8.9 Sodium Potassium Chloride Carbon Dioxide Anion Gap BUN Creatinine Est Cr Clr Drug Dosing Est GFR ( Amer) Est GFR (Non-Af Amer) BUN/Creatinine Ratio Glucose POC Glucose 192 H 94 Calcium Phosphorus Magnesium Nasal Screen MRSA (PCR) 01/04/22 01/04/22 01/04/22 06:04 07:38 11:14 WBC RBC Hgb Hct MCV MCH MCHC RDW Std Deviation RDW Coeff of [place] Plt Count MPV Sodium 135 L Potassium 3.9 Chloride 90 L Carbon Dioxide 41 H* Anion Gap 4 BUN 29 H Creatinine 1.92 H Est Cr Clr Drug Dosing 34.3 Est GFR ( Amer) 29.2 Est GFR (Non-Af Amer) 25.2 BUN/Creatinine Ratio 15.1 Glucose 81 POC Glucose 89 181 H Calcium 8.5 Phosphorus 3.8 Magnesium 2.0 Nasal Screen MRSA (PCR) 01/04/22 12:46 WBC RBC Hgb Hct MCV MCH MCHC RDW Std Deviation RDW Coeff of Lawrence Plt Count MPV Sodium Potassium Chloride Carbon Dioxide Anion Gap BUN Creatinine Est Cr Clr Drug Dosing Est GFR ( Amer) Est GFR (Non-Af Amer) BUN/Creatinine Ratio Glucose POC Glucose Calcium Phosphorus Magnesium Nasal Screen MRSA (PCR) Pending Medications Administered Current Inpatient Medications Acetaminophen (Acetaminophen 325 Mg Tab) 650 mg PO Q4H PRN PRN Reason: Pain or Fever Stop: 02/01/22 03:17 Albuterol (Albuterol Hfa 8 Gm Inhaler) 2 puffs INH Q4 PRN PRN Reason: Wheezing Stop: 02/01/22 11:59 Ascorbic Acid (Ascorbic Acid 500 Mg Tab) 250 mg PO DAILY [facility] Stop: 02/01/22 08:59 Last Admin: 01/04/22 09:08 Dose: 250 mg Documented by: Baclofen (Baclofen 10 Mg Tab) 5 mg PO BID YELITZA Stop: 02/01/22 08:59 Last Admin: 01/04/22 09:07 Dose: 5 mg Documented by: Carvedilol (Carvedilol 6.25 Mg Tab) 6.25 mg PO BID [facility] Stop: 02/01/22 08:59 Last Admin: 01/04/22 09:11 Dose: Not Given Documented by: Cyanocobalamin (Cyanocobalamin (B-12) 500 Mcg Tablet) 500 mcg PO DAILY [facility] Stop: 02/01/22 08:59 Last Admin: 01/04/22 09:06 Dose: 500 mcg Documented by: Dextrose (Dextrose 50% 50 Ml Syringe) 25 - 50 ml IV UD PRN; Protocol PRN Reason: Hypoglycemia Protocol Stop: 02/01/22 03:17 Dofetilide (Dofetilide 125 Mcg Capsule) 250 mcg PO BID [facility] Stop: 02/01/22 08:59 Last Admin: 01/04/22 09:11 Dose: 250 mcg Documented by: Ferrous Sulfate (Ferrous Sulfate 325 Mg Tab) 325 mg PO DAILY [facility] Stop: 02/01/22 08:59 Last Admin: 01/04/22 09:06 Dose: 325 mg Documented by: Folic Acid (Folic Acid 1 Mg Tab) 1 mg PO DAILY [facility] Stop: 02/01/22 08:59 Last Admin: 01/04/22 09:06 Dose: 1 mg Documented by: Glucagon (Glucagon For Inj 1 Mg Vial) 1 mg SQ UD PRN; Protocol PRN Reason: Hypoglycemia Protocol Stop: 02/01/22 03:17 Glucose (Glucose 10 Tabs/Tube) 4 - 8 tabs PO UD PRN; Protocol PRN Reason: Hypoglycemia Protocol Stop: 02/01/22 03:17 Glucose (Glucose 40% Gel 15 Gm Tube) 15 - 30 gm PO UD PRN; Protocol PRN Reason: Hypoglycemia Protocol Stop: 02/01/22 03:17 Promethazine HCl 12.5 mg/ (Sodium Chloride) 50.5 mls @ 202 mls/hr IV Q6H PRN PRN Reason: Nausea And Vomiting Stop: 02/01/22 03:17 Meropenem 500 mg/ Syringe 10 mls @ 2 mls/min IV Q8H [facility]; Protocol Stop: 01/11/22 12:59 Last Admin: 01/04/22 12:39 Dose: 2 mls/min Documented by: Insulin Aspart (Insulin Aspart Per Unit) 0 units SC ACHS [facility] Stop: 02/01/22 03:17 Last Admin: 01/04/22 12:11 Dose: 5 units Documented by: Levothyroxine Sodium (Levothyroxine Sodium 125 Mcg Tablet) [facility]: 02/01/22 06:29 Last Admin: 01/04/22 06:08 Dose: 125 mcg Documented by: Miscellaneous (Carbohydrates For Hypoglycemia ) 15 - 30 gm PO UD PRN PRN Reason: Hypoglycemia Protocol Stop: 02/01/22 03:17 Last Admin: 01/03/22 11:08 Dose: 15 gm Documented by: Miscellaneous Information (Meropenem Consult Active) 1 ea N/A UD PRN PRN Reason: Consult Stop: 02/03/22 12:20 Multivitamins (Multivitamin Tab) 1 tab PO DAILY [facility] Stop: 02/01/22 08:59 Last Admin: 01/04/22 09:44 Dose: 1 tab Documented by: Oxycodone HCl (Oxycodone Hcl 20 Mg Tabcr (Oxycontin)) 20 mg PO BID [facility] Stop: 01/16/22 08:59 Last Admin: 01/04/22 09:06 Dose: 20 mg Documented by: Oxycodone HCl (Oxycodone Hcl Ir 5 Mg Tab (Immediate Release)) 10 mg PO Q6H PRN PRN Reason: Pain Stop: 01/16/22 03:17 Last Admin: 01/03/22 13:59 Dose: 10 mg Documented by: Pantoprazole Sodium (Pantoprazole 40 Mg Tab) 40 mg PO DAILY PRN PRN Reason: Abdominal Pain Stop: 02/01/22 03:17 Polyethylene Glycol (Polyethylene (Miralax) 17 Gm Pack) 17 gm PO DAILY PRN PRN Reason: Constipation Stop: 02/02/22 10:56 Last Admin: 01/03/22 13:30 Dose: 17 gm Documented by: Torsemide (Torsemide 10 Mg Tab) 10 mg PO BID17 [facility] Stop: 02/01/22 16:59 Last Admin: 01/04/22 09:10 Dose: Not Given Documented by: (1) Congestive heart failure Heart failure chronicity: acute Heart failure type: combined systolic and diastolic Qualified Code(s): I50.41 - Acute combined systolic (congestive) and diastolic (congestive) heart failure (2) COPD (chronic obstructive pulmonary disease) COPD type: unspecified COPD Qualified Code(s): J44.9 - Chronic obstructive pulmonary disease, unspecified
[2022-01-04] MEDS: oxyCODONE HCL IR 5 MG TAB (IMMEDIATE RELEASE) PO PRN (15:56)
[2022-01-04] MEDS: diphenhydrAMINE Capsule 25 MG CAP PO PRN (15:56)
[2022-01-04] MEDS: METOPROLOL TARTRATE 1 MG/ML VIAL IV PRN (15:57)
--- NOTE | 2022-01-04 17:33 | Hospitalist Progress Note ---
Date of Service January 04, 2022 Assessment & Plan (1) History of noncompliance with medical treatment: (2) Congestive heart failure: (3) Leg edema: Plan: 76-year-old female w/ PMH of type 2 diabetes, hypothyroidism, hyperlipidemia, COPD, on chronic oxygen baseline 3 liters oxygen, sleep apnea not on CPAP - intolerant as per the patient, paroxysmal atrial fibrillation, cor pulmonale, chronic essential hypertension, morbid obesity, irritable bowel syndrome, stage III chronic kidney disease, mixed stress and urge incontinence, chronic pain syndrome, TIA. Patient presented 01/01 to our ED with complaint of progressive fluid retention along with worsening shortness of breath, denies fever and aspiration, reports compliance with home medication. Of note, patient was recently discharged from hospital after being treated for respiratory failure secondary to COPD exacerbation secondary to COVID-19 infection to rehab and then transitioned to home 1 week ago [facility]. She is being managed for the following: #. Acute on chronic heart failure with preserved ejection fraction #. Possible cardiorenal syndrome Baseline oxygen 3 L with rest and 4 L with activity --> patient has not required more than 4 L in the ED. Patient reports increasing bilateral lower extremity swelling prior to arrival Admitting CXR: Concern for developing fibrosis versus infectious process Admitting CTAP and CT chest: Suggestive of post inflammatory fibrosis, urinary bladder wall thickening with perivesicular stranding/correlate with urinalysis. Admitting: WBC WNL, afebrile, no urinary complaints per patient, BNP 232 (around her baseline) 11/29 echo reviewed: Ejection fraction greater than 70%, hyperdynamic left ventricle with normal left ventricle size and normal left ventricular wall thickness. Possible cardiorenal syndrome versus dietary noncompliance; Patient reports medication compliance. Pt does have history of noncompliance with meds. Cardiology evaluated the patient, appreciate recommendation. Pt on Torsemide continue to monitor volume status. Continue with strict I's and O's, daily weights, fluid restriction #. Concern for HCAP #. ESBL UTI / CAUTI : Pt w/ bob at home (per patient after her last discharge), urine Cx +ve for ESBL UTI Patient reports increased cough but denies aspiration Admitting imaging suspicious for infectious process in the lungs Patient started on ertapenem 01/02-->Meropenem 01/04. 01/04 MRSA negative. Continue to monitor. #. STACY with CKD Baseline creatinine around 1.3-1.5 Admitting Cr 1.99, again uptrending. Monitor BMP daily, continue with diuresis, appreciate nephrology recommendation #. Other chronic medical conditions: Sleep apnea CPAP intolerant, diabetes, hypothyroidism, electrolyte disturbances Continue with/resume home medications as and when appropriate. Patient was to get sleep study as an outpatient. On insulin sliding scale #. History of A. fib #. Afib RVR: Continue with home meds, Coreg dose has been decreased at admission Not on anticoagulation, Xarelto was stopped because of history of hematochezia Patient has historically denied Cardizem vehemently multiple times. Continue to monitor over telemetry Pt currently in Afib rvr, coreg dose has been increased. appreciate cardio recs. BP except to improve with rate control. #. COPD Patient has declined Incruse Ellipta in the past, continue with home inhalers #. Chronic pain Patient points to multiple joint pains in the body which per her are at baseline Continue with home medications. #. Anemia of chronic disease: Baseline hemoglobin 7-8 Continue to monitor hemoglobin daily and as needed. Continue with iron supplementation DVT prophylaxis. SCDs Re: hx of GIB Full code Disposition: PT/OT, CM to assist with DC planning. Admission and Anticipated Discharge Date Admission Date: January 02, 2022 Subjective Patient seen and examined at bedside as a follow-up of acute on chronic heart failure with preserved ejection fraction, likely HCAP and STACY over CKD. Patient lying in bed, on 4 L nasal cannula oxygen, NAD, no new acute events overnight. Patient reports chronic symptoms at baseline, reports no increased SOB, reports cough with yellow sputum, denies fever/chills/changes in bowel or bladder habits lately/headache/dizziness/other review of symptoms. She reports eating OK. Her BP has been running on lower side today AM, likely 2/2 Afib RVR, cardiology has increased her coreg dose. Telemetry reviewed, Afib w/ rvr in 110s to 130s overnight and AM. Physical Exam Physical Exam: GENERAL: Alert and oriented x3. NAD, on 4L, morbidly obese HEENT: No pallor, no icterus. Pupils equal, round and reactive to light. Oral mucosa moist. NECK: No JVD, no neck masses. HEART: S1 and S2 heard. Regular rate and rhythm. No murmur, no gallop. RESPIRATORY SYSTEM: Normal AP diameter. No accessory muscle use. no wheezing, b/l crackles ABDOMEN: Soft, bowel sounds present, nontender, no distention. CENTRAL NERVOUS SYSTEM: No facial droop. Speech is clear. Obeys simple commands. Moves extremities. EXTREMITIES: BLE 2+ edema, no erythema seen. UC w/ light yellow collection in situ Results & Data Results & Data ([facility]) Vital Signs (Past 12 Hours) Vital Signs Temp Pulse Pulse Resp BP BP Pulse Ox 01/04/22 16:47 107 H 92/61 L 01/04/22 15:57 115 H 84/61 L 01/04/22 15:46 106 H 01/04/22 15:17 36.4 C L 115 H 18 83/60 L 97 01/04/22 11:43 36.5 C 114 H 18 79/50 L 97 01/04/22 11:41 124 H 01/04/22 10:44 120 H 88/58 L 01/04/22 07:50 36.6 C 118 H 21 88/64 L 95 (1) Congestive heart failure Heart failure chronicity: acute Heart failure type: combined systolic and diastolic Qualified Code(s): I50.41 - Acute combined systolic (congestive) and diastolic (congestive) heart failure
--- NOTE | 2022-01-04 19:17 | Nephrology Progress Note ---
Date of Service January 04, 2022 Assessment & Plan (1) Electrolyte and fluid disorder: Plan: Profound volume overload in the setting of lower blood pressures today generally in the 80s to 90s systolic. Chronically elevated carbon dioxide levels in the blood d/t her obligate diuretics. Chemistries acceptable for now, though bicarb level high. added hold parameter to bid torsemide 10 mg dose; this is her OP dose Daily basic metabolic panel cont low sodium to diet orders and tightened further fluid limit to 1.5 L daily Strict intake and output to continue >volume status will only worsen if HR and rhythm uncontrolled (2) Worsening renal function: Plan: Baseline creatinine is somewhat labile but runs generally to high ones. Her creatinine at d/c on 12/25 was 1.4; was 2 on admission last evening and since 01/02 plateau'd at 1.8. Her kidney function is worse than it was at hospital discharg e recently, though not so far from baseline. We will certainly continue to monitor. Possible causes of worsening include medication nonadherence and cardiorenal syndrome Daily basic metabolic panel No indication for dialysis at this time -diuretics as above Admission and Anticipated Discharge Date Admission Date: January 02, 2022 Subjective Ongoing clinical management challenges due to atrial fibrillation with rates in the 1 teens to 120s. She frequently refuses rate control meds and other times has hypotension precluding medication dose. Complains of exertional dyspnea including with exam maneuvers. Denies palpitations. Denies worsening edema Review of Systems Review of Systems: All systems reviewed & are unremarkable except as noted in Subjective Physical Exam Constitutional: well developed, well nourished, + obese and cooperative; no acute distress Eyes: EOM intact bilaterally ENMT: Ears: no external ear abnormality Nose: no external nose abnormality Mouth: + dry oral mucous membranes Neck: no nuchal rigidity Respiratory: normal respiratory effort Auscultation: + diminished lung sounds Cardiovascular: Rate/Rhythm: + tachycardic and + irregularly irregular Extremities: + edema (3+ BLE) Gastrointestinal (Abdomen): Inspection/Auscultation: normal bowel sounds Percussion/Palpation: abdomen soft; abdomen nontender Musculoskeletal: Extremities: strength 5/5 throughout Skin: no rashes, warm and dry Neurologic: Moves all extremities, fluent speech, no tremor Psychiatric: Orientation: oriented x 3 Results & Data ([facility]) Vital Signs (Past 12 Hours) Vital Signs Temp Pulse Pulse Resp BP BP Pulse Ox 01/04/22 16:47 107 H 92/61 L 01/04/22 15:57 115 H 84/61 L 01/04/22 15:46 106 H 01/04/22 15:17 36.4 C L 115 H 18 83/60 L 97 01/04/22 11:43 36.5 C 114 H 18 79/50 L 97 01/04/22 11:41 124 H 01/04/22 10:44 120 H 88/58 L 01/04/22 07:50 36.6 C 118 H 21 88/64 L 95 Laboratory Results 01/04/22 06:04 01/04/22 06:04
[2022-01-04] MEDS: carvediloL 12.5 MG TAB PO SCH (21:28)
[2022-01-05] MEDS: diphenhydrAMINE Capsule 25 MG CAP PO PRN (01:12)
[2022-01-05] MEDS: ACETAMINOPHEN 325 MG TAB PO PRN (01:12)
[2022-01-05] MEDS: oxyCODONE HCL IR 5 MG TAB (IMMEDIATE RELEASE) PO PRN ×3 (03:11→20:40)
[2022-01-05] MEDS: ALBUTEROL HFA 8 GM INHALER INH PRN ×2 (03:13→08:15)
[2022-01-05] MEDS: LEVOTHYROXINE SODIUM 125 MCG TABLET PO SCH (05:31)
[2022-01-05] MEDS: MEROPENEM 500 MG in SYRINGE 0 ML IV SCH ×3 (05:31→21:50)
--- NOTE | 2022-01-05 05:51 | Electrocardiogram Report ---
Test Reason : Blood Pressure : / mmHG Vent. Rate : 131 BPM Atrial Rate : 113 BPM P-R Int : 000 ms QRS Dur : 086 ms QT Int : 270 ms P-R-T Axes : 000 -09 003 degrees QTc Int : 398 ms Atrial fibrillation with rapid ventricular response with premature ventricular or aberrantly conducte d complexes Low voltage QRS Nonspecific ST and T wave abnormality Abnormal ECG When compared with ECG of 01-JAN-2022 21:57, Atrial fibrillation has replaced Sinus rhythm Vent. rate has increased BY 70 BPM Non-specific change in ST segment in Lateral leads Nonspecific T wave abnormality, worse in Anterolateral leads Confirmed by Yvan Loving ([id number]) on 01/05/2022 5:50:43 AM Referred By: REFERRED SELF Confirmed By:Yvan Loving
[2022-01-05 07:24] LABS: BUN Creatinine Ratio 13.4 (10-20); Calcium 8.3 mg/dl (8.5-10.1); Creatinine Clr Calc Pharmacy 28.3 ml/min; Est GFR (African American) 22.5 ml/min; Est GFR (Non-African American) 19.4 ml/min; Magnesium 2.1 mg/dl (1.7-2.4); Potassium 4.2 mmol/L (3.5-5.1)
--- NOTE | 2022-01-05 08:02 | Nephrology Progress Note ---
Date of Service January 05, 2022 Assessment & Plan (1) Acute on chronic renal failure: Plan: after several days of AF w/ RVR and hypotension now w/ ischemic ATN d/t this and cardiorenal syndrome w/ obligate holding diuretics. Baseline creatinine is somewhat labile but runs generally to high ones. Her creatinine at d/c on 12/25 was 1.4; was 2 on admission and remains approximately in this range until today w/ bump to 2.4. AF w/ RVR driven in part per discussion w/ hospitalist and nursing by patient refusing beta-blockers and insisting on treatments with albuterol Daily basic metabolic panel No indication for dialysis at this time -Last diuretic dose was January 03 in the morning: Unable to diurese at this time unless can support her blood pressure and control HR; she needs diuresis > defer to hospitalist and cardiology colleagues on this; HR has been better controlled today but no improvement in BP > trial of midodrine if cardiology agrees; double down on correctly performed BP readings (today appropriately sized/positioned cuff but have seen other days w/ cuff on forearm per pt preference; cannot rule out need for pressors if albumin infusion she's receiving does not suffice (2) Electrolyte and fluid disorder: Plan: Profound volume overload in the setting of lower blood pressures past 48 hours generally in the 80s to 90s systolic. Chronically elevated carbon dioxide levels in the blood d/t her obligate diuretics. Chemistries acceptable for now, though bicarb level high. added hold parameter to bid torsemide 10 mg dose; this is her OP dose Daily basic metabolic panel cont low sodium to diet orders and tightened further fluid limit 1.5 L daily Strict intake and output to continue >volume status will only worsen if HR and rhythm, BP uncontrolled Admission and Anticipated Discharge Date Admission Date: January 02, 2022 Subjective HR to 60s this am but SBP in 80s for most of day; trouble getting accurate bp readings; bob out this pm per hospitalist. pt endorses hip and knee pain; no worse breathing; hungry Review of Systems Review of Systems: All systems reviewed & are unremarkable except as noted in Subjective Physical Exam Constitutional: well developed, well nourished, + obese, cooperative (but dosing off periodically) and + lethargic; no acute distress Eyes: EOM intact bilaterally ENMT: Ears: no external ear abnormality Nose: no external nose abnormality Mouth: + dry oral mucous membranes Neck: no nuchal rigidity Respiratory: normal respiratory effort and + paradoxical thoraco-abdominal movement Auscultation: + diminished lung sounds, + crackles (R base) and + wheezes (R insp) Cardiovascular: Rate/Rhythm: regular rate and + irregularly irregular Extremities: + edema (3+ BLE pretibial and hips/ abd wall) Gastrointestinal (Abdomen): Inspection/Auscultation: normal bowel sounds Percussion/Palpation: abdomen soft; abdomen nontender Musculoskeletal: Extremities: + abnormal strength (needs help to roll) Skin: no rashes, warm and dry Neurologic: frequent myoclonic jerks; fluent speech; drops off to sleep fast Psychiatric: Orientation: oriented x 3 Results & Data ([facility]) Vital Signs (Past 12 Hours) Vital Signs Temp Pulse Pulse Resp BP Pulse Ox 01/05/22 07:40 36.6 C 68 19 81/53 L 97 01/05/22 07:33 60 01/05/22 03:18 36.9 C 124 H 20 95/72 L 96 01/04/22 23:55 128 H 01/04/22 23:21 37.1 C 125 H 19 96/53 L 96 Laboratory Results 01/04/22 06:04 01/05/22 05:37
[2022-01-05] MEDS: INSULIN ASPART PER UNIT SC SCH ×5 (08:09→20:31)
[2022-01-05] MEDS: oxyCODONE HCL 20 MG TABCR (OxyCONTIN) PO SCH ×2 (08:13→20:40)
[2022-01-05] MEDS: FERROUS SULFATE 325 MG TAB PO SCH (08:14)
[2022-01-05] MEDS: MULTIVITAMIN TAB PO SCH (08:14)
[2022-01-05] MEDS: BACLOFEN 10 MG TAB PO SCH ×2 (08:15→20:34)
[2022-01-05] MEDS: ASCORBIC ACID 500 MG TAB PO SCH (08:16)
[2022-01-05] MEDS: DOFETILIDE 125 MCG CAPSULE PO SCH ×2 (08:17→20:33)
[2022-01-05] MEDS: FOLIC ACID 1 MG TAB PO SCH (08:18)
[2022-01-05] MEDS: CYANOCOBALAMIN (B-12) 500 MCG TABLET PO SCH (08:18)
[2022-01-05] MEDS: TORSEMIDE 10 MG TAB PO SCH (08:26)
[2022-01-05] MEDS: carvediloL 12.5 MG TAB PO SCH ×2 (08:26→20:34)
--- NOTE | 2022-01-05 09:35 | Cardiology Progress Note ---
Date of Service January 05, 2022 Assessment & Plan (1) COPD (chronic obstructive pulmonary disease): (2) ZEYAD (obstructive sleep apnea): (3) Paroxysmal atrial fibrillation: (4) DM type 2 (diabetes mellitus, type 2): (5) CKD (chronic kidney disease), stage III: (6) Chronic diastolic CHF (congestive heart failure): (7) Leg edema: (8) Congestive heart failure: (9) History of noncompliance with medical treatment: Plan: The patient converted to sinus rhythm early this morning. Unfortunately, her blood pressure is now low. I will put her torsemide on hold. Her creatinine has increased significantly since the previous study. The carvedilol was held this morning per parameters. Admission and Anticipated Discharge Date Admission Date: January 02, 2022 Subjective The patient is resting comfortably. Review of Systems Review of Systems: Review of Systems: See HPI for pertinent positives. All other 10 point review of systems are negative. Physical Exam Physical Exam: General: no acute distress and stated age Head: normocephalic, no masses, lesions, tenderness or abnormalities Eyes: conjunctiva are pink and non-injected, sclera clear Neck: supple, no adenopathy, no bruits, normal jugular venous pulse, no hepatojugular reflux Chest: normal shape and normal respiratory effort Lungs: clear to auscultation and percussion Cardiac Exam: - regular rate & rhythm, no murmurs gallops or rubs - normal S1, normal S2 Pulses: 2(+) throughout Abdomen: abdomen soft, non-tender, no abnormal masses and no hepatosplenomegaly Musculoskeletal: no gait disturbance, no joint inflammation, no deforming arthritis Extremities: Bilateral lower extremity edema Neuro: grossly normal exam Results & Data ([facility]) Vital Signs (Past 12 Hours) Vital Signs Temp Pulse Pulse Resp BP Pulse Ox 01/05/22 07:40 36.6 C 68 19 81/53 L 97 01/05/22 07:33 60 01/05/22 03:18 36.9 C 124 H 20 95/72 L 96 01/04/22 23:55 128 H 01/04/22 23:21 37.1 C 125 H 19 96/53 L 96 Laboratory Results Laboratory Results - last 24 hr 01/04/22 01/04/22 01/04/22 11:14 12:46 16:25 Sodium Potassium Chloride Carbon Dioxide Anion Gap BUN Creatinine Est Cr Clr Drug Dosing Est GFR ( Amer) Est GFR (Non-Af Amer) BUN/Creatinine Ratio Glucose POC Glucose 181 H 92 Calcium Magnesium Nasal Screen MRSA (PCR) Negative 01/04/22 01/05/22 01/05/22 20:05 05:37 07:29 Sodium 133 L Potassium 4.2 Chloride 90 L Carbon Dioxide 40 H Anion Gap 3 BUN 32 H Creatinine 2.38 H D Est Cr Clr Drug Dosing 28.3 Est GFR ( Amer) 22.5 Est GFR (Non-Af Amer) 19.4 BUN/Creatinine Ratio 13.4 Glucose 93 POC Glucose 106 H 115 H Calcium 8.3 L Magnesium 2.1 Nasal Screen MRSA (PCR) Medications Administered Current Inpatient Medications Acetaminophen (Acetaminophen 325 Mg Tab) 650 mg PO Q4H PRN PRN Reason: Pain or Fever Stop: 02/01/22 03:17 Last Admin: 01/05/22 01:12 Dose: 650 mg Documented by: Albuterol (Albuterol Hfa 8 Gm Inhaler) 2 puffs INH Q4 PRN PRN Reason: Wheezing Stop: 02/01/22 11:59 Last Admin: 01/05/22 08:15 Dose: 2 puffs Documented by: Ascorbic Acid (Ascorbic Acid 500 Mg Tab) 250 mg PO DAILY YELITZA Stop: 02/01/22 08:59 Last Admin: 01/05/22 08:16 Dose: 250 mg Documented by: Baclofen (Baclofen 10 Mg Tab) 5 mg PO BID YELITZA Stop: 02/01/22 08:59 Last Admin: 01/05/22 08:15 Dose: 5 mg Documented by: Carvedilol (Carvedilol 12.5 Mg Tab) 12.5 mg PO BID YELITZA Stop: 02/03/22 20:59 Last Admin: 01/05/22 08:26 Dose: Not Given Documented by: Cyanocobalamin (Cyanocobalamin (B-12) 500 Mcg Tablet) 500 mcg PO DAILY [facility] Stop: 02/01/22 08:59 Last Admin: 01/05/22 08:18 Dose: 500 mcg Documented by: Dextrose (Dextrose 50% 50 Ml Syringe) 25 - 50 ml IV UD PRN; Protocol PRN Reason: Hypoglycemia Protocol Stop: 02/01/22 03:17 Diphenhydramine HCl (Diphenhydramine Capsule 25 Mg Cap) 25 mg PO DAILY PRN PRN Reason: Itching Stop: 02/03/22 15:29 Last Admin: 01/05/22 01:12 Dose: 25 mg Documented by: Dofetilide (Dofetilide 125 Mcg Capsule) 250 mcg PO BID [facility] Stop: 02/01/22 08:59 Last Admin: 01/05/22 08:17 Dose: 250 mcg Documented by: Ferrous Sulfate (Ferrous Sulfate 325 Mg Tab) 325 mg PO DAILY YELITZA Stop: 02/01/22 08:59 Last Admin: 01/05/22 08:14 Dose: 325 mg Documented by: Folic Acid (Folic Acid 1 Mg Tab) 1 mg PO DAILY YELITZA Stop: 02/01/22 08:59 Last Admin: 01/05/22 08:18 Dose: 1 mg Documented by: Glucagon (Glucagon For Inj 1 Mg Vial) 1 mg SQ UD PRN; Protocol PRN Reason: Hypoglycemia Protocol Stop: 02/01/22 03:17 Glucose (Glucose 10 Tabs/Tube) 4 - 8 tabs PO UD PRN; Protocol PRN Reason: Hypoglycemia Protocol Stop: 02/01/22 03:17 Glucose (Glucose 40% Gel 15 Gm Tube) 15 - 30 gm PO UD PRN; Protocol PRN Reason: Hypoglycemia Protocol Stop: 02/01/22 03:17 Promethazine HCl 12.5 mg/ (Sodium Chloride) 50.5 mls @ 202 mls/hr IV Q6H PRN PRN Reason: Nausea And Vomiting Stop: 02/01/22 03:17 Meropenem 500 mg/ Syringe 10 mls @ 2 mls/min IV Q8H YELITZA; Protocol Stop: 01/11/22 12:59 Last Admin: 01/05/22 05:31 Dose: 2 mls/min Documented by: Insulin Aspart (Insulin Aspart Per Unit) 0 units SC ACHS [facility] Stop: 02/01/22 03:17 Last Admin: 01/05/22 08:09 Dose: 4 units Documented by: Levothyroxine Sodium (Levothyroxine Sodium 125 Mcg Tablet) 125 mcg PO DAILYBB [facility] Stop: 02/01/22 06:29 Last Admin: 01/05/22 05:31 Dose: 125 mcg Documented by: Metoprolol Tartrate (Metoprolol Tartrate 1 Mg/Ml Vial) 5 mg IV Q6 PRN; Protocol PRN Reason: tachycardia Stop: 02/03/22 17:59 Last Admin: 01/04/22 15:57 Dose: 5 mg Documented by: Miscellaneous (Carbohydrates For Hypoglycemia ) 15 - 30 gm PO UD PRN PRN Reason: Hypoglycemia Protocol Stop: 02/01/22 03:17 Last Admin: 01/03/22 11:08 Dose: 15 gm Documented by: Miscellaneous Information (Meropenem Consult Active) 1 ea N/A UD PRN PRN Reason: Consult Stop: 02/03/22 12:20 Multivitamins (Multivitamin Tab) 1 tab PO DAILY YELITZA Stop: 02/01/22 08:59 Last Admin: 01/05/22 08:14 Dose: 1 tab Documented by: Oxycodone HCl (Oxycodone Hcl 20 Mg Tabcr (Oxycontin)) 20 mg PO BID [facility] Stop: 01/16/22 08:59 Last Admin: 01/05/22 08:13 Dose: 20 mg Documented by: Oxycodone HCl (Oxycodone Hcl Ir 5 Mg Tab (Immediate Release)) 10 mg PO Q6H PRN PRN Reason: Pain Stop: 01/16/22 03:17 Last Admin: 01/05/22 03:11 Dose: 10 mg Documented by: Pantoprazole Sodium (Pantoprazole 40 Mg Tab) 40 mg PO DAILY PRN PRN Reason: Abdominal Pain Stop: 02/01/22 03:17 Polyethylene Glycol (Polyethylene (Miralax) 17 Gm Pack) 17 gm PO DAILY PRN PRN Reason: Constipation Stop: 02/02/22 10:56 Last Admin: 01/03/22 13:30 Dose: 17 gm Documented by: Torsemide (Torsemide 10 Mg Tab) 10 mg PO BID17 [facility] Stop: 02/01/22 16:59 Last Admin: 01/05/22 08:26 Dose: Not Given Documented by: (1) Congestive heart failure Heart failure chronicity: acute Heart failure type: combined systolic and diastolic Qualified Code(s): I50.41 - Acute combined systolic (congestive) and diastolic (congestive) heart failure (2) COPD (chronic obstructive pulmonary disease) COPD type: unspecified COPD Qualified Code(s): J44.9 - Chronic obstructive pulmonary disease, unspecified
--- NOTE | 2022-01-05 15:51 | Hospitalist Progress Note ---
Date of Service January 05, 2022 Assessment & Plan (1) History of noncompliance with medical treatment: (2) Congestive heart failure: (3) Leg edema: Plan: 76-year-old female w/ PMH of type 2 diabetes, hypothyroidism, hyperlipidemia, COPD, on chronic oxygen baseline 3 liters oxygen, sleep apnea not on CPAP - intolerant as per the patient, paroxysmal atrial fibrillation, cor pulmonale, chronic essential hypertension, morbid obesity, irritable bowel syndrome, stage III chronic kidney disease, mixed stress and urge incontinence, chronic pain syndrome, TIA. Patient presented 01/01 to our ED with complaint of progressive fluid retention along with worsening shortness of breath, denies fever and aspiration, reports compliance with home medication. 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 She is being managed for the following: #. Acute on chronic heart failure with preserved ejection fraction #. Possible cardiorenal syndrome Baseline oxygen 3 L with rest and 4 L with activity --> patient has not required more than 4 L in the ED. Patient reports increasing bilateral lower extremity swelling prior to arrival Admitting CXR: Concern for developing fibrosis versus infectious process Admitting CTAP and CT chest: Suggestive of post inflammatory fibrosis, urinary bladder wall thickening with perivesicular stranding/correlate with urinalysis. Admitting: WBC WNL, afebrile, no urinary complaints per patient, BNP 232 (around her baseline) 11/29 echo reviewed: Ejection fraction greater than 70%, hyperdynamic left ventricle with normal left ventricle size and normal left ventricular wall thickness. Possible cardiorenal syndrome versus dietary noncompliance; Patient reports medication compliance. Pt does have history of noncompliance with meds. Cardiology evaluated the patient, appreciate recommendation. Carvedilol dose increased and pt on torsemide, both are on hold due to patient's low BP. WBC normal, Pt afebrile and is on broad spectrum antibiotic; hence concern for sepsis w/ shock is low. Will send blood culture, lactate and random cortisol; will give one time dose of hydrocortisone. Consider using albumin; if no improvement, will need pressor support/ICU - low threshold. Pt not getting diuresis d/t low BP, continue to monitor volume status. Continue with strict I's and O's, daily weights, fluid restriction #. Concern for HCAP #. ESBL UTI / CAUTI : Pt w/ bob at home (per patient after her last discharge), urine Cx +ve for ESBL UTI Patient reports increased cough but denies aspiration at presentation Admitting imaging suspicious for infectious process in the lungs Patient started on ertapenem 01/02-->Meropenem 01/04. 01/04 MRSA negative. Continue to monitor. Remove Bob. #. STACY with CKD Baseline creatinine around 1.3-1.5 Admitting Cr 1.99, Cr worsening Monitor BMP daily, appreciate nephrology recommendation #. Other chronic medical conditions: Sleep apnea CPAP intolerant, diabetes, hypothyroidism, electrolyte disturbances Continue with/resume home medications as and when appropriate. Patient was to get sleep study as an outpatient, which patient said never got a chance. On insulin sliding scale #. History of A. fib #. Afib RVR: Continue with home meds, Coreg dose adjusted Not on anticoagulation, Xarelto was stopped in past because of history of hematochezia Patient has historically denied Cardizem vehemently multiple times. Continue to monitor over telemetry Pt currently in sinus, has not been able to get coreg d/t low BP. appreciate cardio recs. #. COPD Patient has declined Incruse Ellipta in the past, continue with home inhalers #. Chronic pain Patient points to multiple joint pains in the body which per her are at baseline Continue with home medications. #. Anemia of chronic disease: Baseline hemoglobin 7-8 Continue to monitor hemoglobin daily and as needed. Continue with iron supplementation DVT prophylaxis. SCDs Re: hx of GIB Full code Disposition: PT/OT, CM to assist with DC planning. Admission and Anticipated Discharge Date Admission Date: January 02, 2022 Subjective Patient seen and examined at bedside as a follow-up of acute on chronic heart failure with preserved ejection fraction, likely HCAP and STACY over CKD. Patient lying in bed, on 4 L nasal cannula oxygen, NAD, no new acute events overnight. Patient reports chronic symptoms at baseline, reports no increased SOB, reports cough with yellow sputum, denies fever/chills/changes in bowel or bladder habits lately/headache/dizziness/other review of symptoms. She reports eating OK. Her BP has been running on lower side today AM, pt is in sinus rhythm, it is difficult to diurese her d/t low BP. Telemetry reviewed, converted to sinus at 3:47 AM. Physical Exam Physical Exam: GENERAL: Alert and oriented x3. NAD, on 4L, morbidly obese HEENT: No pallor, no icterus. Pupils equal, round and reactive to light. Oral mucosa moist. NECK: No JVD, no neck masses. HEART: S1 and S2 heard. Regular rate and rhythm. No murmur, no gallop. RESPIRATORY SYSTEM: Normal AP diameter. No accessory muscle use. no wheezing, b/l crackles ABDOMEN: Soft, bowel sounds present, nontender, no distention. CENTRAL NERVOUS SYSTEM: No facial droop. Speech is clear. Obeys simple commands. Moves extremities. EXTREMITIES: BLE 2+ edema, no erythema seen. UC w/ light yellow collection in situ Results & Data Results & Data ([facility]) Vital Signs (Past 12 Hours) Vital Signs Temp Pulse Pulse Resp BP Pulse Ox 01/05/22 14:47 72 01/05/22 12:45 36.5 C 66 17 82/61 L 94 01/05/22 07:40 36.6 C 68 19 81/53 L 97 01/05/22 07:33 60 (1) Congestive heart failure Heart failure chronicity: acute Heart failure type: combined systolic and diastolic Qualified Code(s): I50.41 - Acute combined systolic (congestive) and diastolic (congestive) heart failure
[2022-01-05] MEDS ORDERED: ALBUMIN 25% 100 mL 25 GM/100 ML VIAL IV ONE (16:12)
[2022-01-05] MEDS ORDERED: HYDROCORTISONE SOD 50 MG in SYRINGE 0 ML IV ONE (16:15)
[2022-01-05] MEDS ORDERED: SODIUM CHLORIDE 0.9% 500 ML IV SCH (18:15)
[2022-01-06] MEDS: ALBUTEROL HFA 8 GM INHALER INH PRN (00:23)
[2022-01-06] MEDS: oxyCODONE HCL IR 5 MG TAB (IMMEDIATE RELEASE) PO PRN (05:59)
[2022-01-06] MEDS: LEVOTHYROXINE SODIUM 125 MCG TABLET PO SCH (05:59)
[2022-01-06] MEDS: MEROPENEM 500 MG in SYRINGE 0 ML IV SCH ×2 (05:59→17:08)
[2022-01-06 06:33] LABS: Hematocrit (blood only) 31.5 % (37-47); Hemoglobin 8.8 g/dL (12.0-16.0); Mean Corpuscular Hemoglobin 24.6 pg (25-34); Mean Corpuscular Hgb Conc 27.9 g/dL (32-36); Mean Corpuscular Volume 88.2 fL (80-100); Mean Platelet Volume 9.4 fL (7.4-10.4); Platelet Count 194 K/uL (130-400); RDW Coefficient of Variation 21.1 % (11.5-14.5); RDW Standard Deviation 68.5 fL (36.4-46.3); Red Blood Count 3.57 M/uL (4.2-5.4); White Blood Count 7.87 K/uL (4.8-10.8)
[2022-01-06 06:48] LABS: Calcium 8.8 mg/dl (8.5-10.1); Creatinine Clr Calc Pharmacy 22.1 ml/min; Est GFR (Non-African American) 14.6 ml/min; Potassium 4.5 mmol/L (3.5-5.1)
[2022-01-06] MEDS: DOFETILIDE 125 MCG CAPSULE PO SCH ×2 (08:49→20:03)
[2022-01-06] MEDS: BACLOFEN 10 MG TAB PO SCH ×2 (08:50→20:03)
[2022-01-06] MEDS: CYANOCOBALAMIN (B-12) 500 MCG TABLET PO SCH (08:50)
[2022-01-06] MEDS: PANTOprazole 40 MG TAB PO PRN (08:51)
[2022-01-06] MEDS: carvediloL 12.5 MG TAB PO SCH ×2 (08:51→20:03)
[2022-01-06] MEDS: FOLIC ACID 1 MG TAB PO SCH (08:51)
[2022-01-06] MEDS: MULTIVITAMIN TAB PO SCH (08:51)
[2022-01-06] MEDS: ASCORBIC ACID 500 MG TAB PO SCH (08:52)
[2022-01-06] MEDS: FERROUS SULFATE 325 MG TAB PO SCH (08:53)
[2022-01-06] MEDS: oxyCODONE HCL 20 MG TABCR (OxyCONTIN) PO SCH ×2 (08:54→20:09)
[2022-01-06] MEDS: INSULIN ASPART PER UNIT SC SCH ×4 (08:55→20:02)
--- NOTE | 2022-01-06 09:08 | Nephrology Progress Note ---
Date of Service January 06, 2022 Assessment & Plan Admission and Anticipated Discharge Date Admission Date: January 02, 2022 Subjective Assessment & Plan (1) Acute on chronic renal failure: Plan: after several days of AF w/ RVR and hypotension now w/ ischemic ATN d/t this and cardiorenal syndrome . Creat getting worse and fluid retention getting worse. holding diuretics since 01/03. almost impossible to asess true fluid status in her case. Also BP low But ?? accuracy. Baseline creatinine is somewhat labile but runs generally to high ones. Her creatinine at d/c on 12/25 was 1.4; was 2 on admission and now > 3 today. urine output??? Daily basic metabolic panel No indication for dialysis at this time but she may need it Rec: 1 Bob and accurate urine needed. 2 Accurate BP needed if possible. 3 Will have to give her some lasix ( dose to be decided after bob and residual urine) and midodrine for BP support. Subjective HR to 60s this am but SBP in 80s for most of day---Trouble getting accurate bp readings. Now c/o urine issues given bladder prolapse and wants her bob back. Urine ??? Review of Systems Review of Systems: All systems reviewed & are unremarkable except as noted in Subjective Physical Exam Constitutional: well developed, well nourished, + obese, cooperative (but dosing off periodically) and + lethargic; no acute distress Eyes: EOM intact bilaterally ENMT: Ears: no external ear abnormality Nose: no external nose abnormality Mouth: + dry oral mucous membranes Neck:L no nuchal rigidity Respiratory: normal respiratory effort and + paradoxical thoraco-abdominal movement Auscultation: + diminished lung sounds, + crackles (R base) and + wheezes (R insp) Cardiovascular: Rate/Rhythm: regular rate and + irregularly irregular Extremities: + edema (3+ BLE pretibial and hips/ abd wall) Gastrointestinal (Abdomen): Inspection/Auscultation: normal bowel sounds Percussion/Palpation: abdomen soft; abdomen nontender Musculoskeletal: Extremities: + abnormal strength (needs help to roll) Skin: no rashes, warm and dry Neurologic: frequent myoclonic jerks; fluent speech; drops off to sleep fast Psychiatric: Orientation: oriented x 3 Results & Data ([facility]) Vital Signs (Past 12 Hours) Vital Signs Temp Pulse Pulse Resp BP Pulse Ox 01/06/22 07:09 36.5 C 73 16 89/46 L 94 01/06/22 05:16 36.4 C L 68 20 87/55 L 100 01/06/22 00:55 69 01/05/22 23:43 36.7 C 78 20 99/55 L 94
[2022-01-06] MEDS: MIDODRINE HCL 2.5 MG TAB PO SCH ×2 (12:02→17:08)
--- NOTE | 2022-01-06 14:53 | Hospitalist Progress Note ---
Date of Service January 06, 2022 Assessment & Plan (1) History of noncompliance with medical treatment: (2) Congestive heart failure: (3) Leg edema: Plan: 76-year-old female w/ PMH of type 2 diabetes, hypothyroidism, hyperlipidemia, COPD, on chronic oxygen baseline 3 liters oxygen, sleep apnea not on CPAP - intolerant as per the patient, paroxysmal atrial fibrillation, cor pulmonale, chronic essential hypertension, morbid obesity, irritable bowel syndrome, stage III chronic kidney disease, mixed stress and urge incontinence, chronic pain syndrome, TIA. Patient presented 01/01 to our ED with complaint of progressive fluid retention along with worsening shortness of breath, denies fever and aspiration, reports compliance with home medication. 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 She is being managed for the following: Acute on chronic heart failure with preserved ejection fraction Possible cardiorenal syndrome Patient reports increasing bilateral lower extremity swelling prior to arrival 11/29 echo reviewed: Ejection fraction greater than 70%, hyperdynamic left ventricle with normal left ventricle size and normal left ventricular wall thickness. Possible cardiorenal syndrome versus dietary noncompliance; Patient reports medication compliance. Pt does have history of noncompliance with meds. Cardiology evaluated the patient, appreciate recommendation. Carvedilol dose increased and pt on torsemide, both are on hold due to patient's low BP. . Pt not getting diuresis d/t low BP, continue to monitor volume status. Continue with strict I's and O's, daily weights, fluid restriction Appreciate cardiology and nephrology input and recommendation Discussion with the art therapist for possible transfer to ICU to monitor blood pressure-has not been finalized yet Midodrine has been added to improve blood pressure and Lasix will be continued as per instructions from perforator typist Carlo to maintain intake output chart Concern for HCAP UTI / CAUTI : Pt w/ bob at home (per patient after her last discharge), urine Cx +ve for ESBL UTI Baseline oxygen 3 L with rest and 4 L with activity --> patient has not required more than 4 L in the ED. Patient reports increased cough but denies aspiration at presentation Admitting CXR: Concern for developing fibrosis versus infectious process Admitting CTAP and CT chest: Suggestive of post inflammatory fibrosis, urinary bladder wall thickening with perivesicular stranding/correlate with urinalysis. Patient started on ertapenem 01/02-->Meropenem 01/04. 01/04 MRSA negative. We will continue current antibiotic STACY with CKD Baseline creatinine around 1.3-1.5 Admitting Cr 1.99, Cr worsening Monitor BMP daily, appreciate nephrology recommendation Other chronic medical conditions: Sleep apnea CPAP intolerant, diabetes, hypothyroidism, electrolyte disturbances Continue with/resume home medications as and when appropriate. Patient was to get sleep study as an outpatient, which patient said never got a chance. History of A. fib Afib RVR: Continue with home meds, Coreg dose adjusted Not on anticoagulation, Xarelto was stopped in past because of history of hematochezia Patient has historically denied Cardizem vehemently multiple times. Continue to monitor over telemetry Appreciate cardiology input and recommendation COPD Sleep apnea Does not use any CPAP COPD remains stable Patient has declined Incruse Ellipta in the past, continue with home inhalers Chronic pain Patient points to multiple joint pains in the body which per her are at baseline Continue with home medications. Anemia of chronic disease: Baseline hemoglobin 7-8 Continue to monitor hemoglobin daily and as needed. Continue with iron supplementation DVT prophylaxis. SCDs Re: hx of GIB Full code Disposition: PT/OT, CM to assist with DC planning. Admission and Anticipated Discharge Date Admission Date: January 02, 2022 Subjective 01/06/2022 The patient was seen and examined in telemetry unit She remains generally weak but denies any significant symptoms She has been running low around systolic 80s without any symptoms Review of Systems Review of Systems: All systems reviewed and are unremarkable except as noted below Physical Exam Physical Exam: Lying in bed comfortably Constitutional: well developed, well nourished, + ill appearing and + morbidly obese Eyes: PERRL, conjunctivae normal, anicteric sclerae ENMT: external ear and nose normal, oropharynx normal Neck: trachea midline, no thyromegaly Respiratory: no respiratory distress Auscultation: + diminished lung sounds and + crackles (Bibasilar crackles) Cardiovascular: Rate/Rhythm: regular rate, regular rhythm and + bradycardic Heart Sounds: normal S1 and normal S2; no murmur Extremities: + edema (1-2+ edema bilaterally) Gastrointestinal (Abdomen): Inspection/Auscultation: normal bowel sounds; abdomen not distended Percussion/Palpation: abdomen soft; abdomen nontender Musculoskeletal: No acute arthritis in any joint Neurologic: Alert, awake and oriented x3. Generally very weak and lethargic Results & Data [facility]) Vital Signs (Past 12 Hours) Vital Signs Temp Pulse Resp BP BP Pulse Ox 01/06/22 11:19 36.4 C L 59 L 16 90/48 L 99 01/06/22 07:09 36.5 C 73 16 89/46 L 94 01/06/22 05:16 36.4 C L 68 20 87/55 L 100 Laboratory Results Short CBC 01/06/22 Range/Units 05:37 WBC 7.87 (4.8-10.8) K/uL Hgb 8.8 L (12.0-16.0) g/dL Hct 31.5 L (37-47) % Plt Count 194 (130-400) K/uL BMP 01/06/22 05:37 Sodium 133 L Potassium 4.5 Chloride 89 L Carbon Dioxide 37 H BUN 36 H Creatinine 3.01 H D Glucose 104 H Calcium 8.8 Medications Administered Current Inpatient Medications Acetaminophen (Acetaminophen 325 Mg Tab) 650 mg PO Q4H PRN PRN Reason: Pain or Fever Stop: 02/01/22 03:17 Last Admin: 01/05/22 01:12 Dose: 650 mg Documented by: Albuterol (Albuterol Hfa 8 Gm Inhaler) 2 puffs INH Q4 PRN PRN Reason: Wheezing Stop: 02/01/22 11:59 Last Admin: 01/06/22 00:23 Dose: 2 puffs Documented by: Ascorbic Acid (Ascorbic Acid 500 Mg Tab) 250 mg PO DAILY YELITZA Stop: 02/01/22 08:59 Last Admin: 01/06/22 08:52 Dose: 250 mg Documented by: Baclofen (Baclofen 10 Mg Tab) 5 mg PO BID YELITZA Stop: 02/01/22 08:59 Last Admin: 01/06/22 08:50 Dose: 5 mg Documented by: Carvedilol (Carvedilol 12.5 Mg Tab) 12.5 mg PO BID YELITZA Stop: 02/03/22 20:59 Last Admin: 01/06/22 08:51 Dose: 12.5 mg Documented by: Cyanocobalamin (Cyanocobalamin (B-12) 500 Mcg Tablet) 500 mcg PO DAILY YELITZA Stop: 02/01/22 08:59 Last Admin: 01/06/22 08:50 Dose: 500 mcg Documented by: Dextrose (Dextrose 50% 50 Ml Syringe) 25 - 50 ml IV UD PRN; Protocol PRN Reason: Hypoglycemia Protocol Stop: 02/01/22 03:17 Diphenhydramine HCl (Diphenhydramine Capsule 25 Mg Cap) 25 mg PO DAILY PRN PRN Reason: Itching Stop: 02/03/22 15:29 Last Admin: 01/05/22 01:12 Dose: 25 mg Documented by: Dofetilide (Dofetilide 125 Mcg Capsule) 250 mcg PO BID YELITZA Stop: 02/01/22 08:59 Last Admin: 01/06/22 08:49 Dose: 250 mcg Documented by: Ferrous Sulfate (Ferrous Sulfate 325 Mg Tab) 325 mg PO DAILY YELITZA Stop: 02/01/22 08:59 Last Admin: 01/06/22 08:53 Dose: 325 mg Documented by: Folic Acid (Folic Acid 1 Mg Tab) 1 mg PO DAILY YELITZA Stop: 02/01/22 08:59 Last Admin: 01/06/22 08:51 Dose: 1 mg Documented by: Glucagon (Glucagon For Inj 1 Mg Vial) 1 mg SQ UD PRN; Protocol PRN Reason: Hypoglycemia Protocol Stop: 02/01/22 03:17 Glucose (Glucose 10 Tabs/Tube) 4 - 8 tabs PO UD PRN; Protocol PRN Reason: Hypoglycemia Protocol Stop: 02/01/22 03:17 Glucose (Glucose 40% Gel 15 Gm Tube) 15 - 30 gm PO UD PRN; Protocol PRN Reason: Hypoglycemia Protocol Stop: 02/01/22 03:17 Promethazine HCl 12.5 mg/ (Sodium Chloride) 50.5 mls @ 202 mls/hr IV Q6H PRN PRN Reason: Nausea And Vomiting Stop: 02/01/22 03:17 Meropenem 500 mg/ Syringe 10 mls @ 2 mls/min IV Q12H YELITZA; Protocol Stop: 01/11/22 05:59 Insulin Aspart (Insulin Aspart Per Unit) 0 units SC ACHS [facility] Stop: 02/01/22 03:17 Last Admin: 01/06/22 12:01 Dose: Not Given Documented by: Levothyroxine Sodium (Levothyroxine Sodium 125 Mcg Tablet) 125 mcg PO DAILYBB YELITZA Stop: 02/01/22 06:29 Last Admin: 01/06/22 05:59 Dose: 125 mcg Documented by: Metoprolol Tartrate (Metoprolol Tartrate 1 Mg/Ml Vial) 5 mg IV Q6 PRN; Protocol PRN Reason: tachycardia Stop: 02/03/22 17:59 Last Admin: 01/04/22 15:57 Dose: 5 mg Documented by: Midodrine (Midodrine Hcl 2.5 Mg Tab) 2.5 mg PO TID@0800,1200,1700 YELITZA Stop: 02/05/22 11:59 Last Admin: 01/06/22 12:02 Dose: 2.5 mg Documented by: Miscellaneous (Carbohydrates For Hypoglycemia ) 15 - 30 gm PO UD PRN PRN Reason: Hypoglycemia Protocol Stop: 02/01/22 03:17 Last Admin: 01/03/22 11:08 Dose: 15 gm Documented by: Miscellaneous Information (Meropenem Consult Active) 1 ea N/A UD PRN PRN Reason: Consult Stop: 02/03/22 12:20 Multivitamins (Multivitamin Tab) 1 tab PO DAILY YELITZA Stop: 02/01/22 08:59 Last Admin: 01/06/22 08:51 Dose: 1 tab Documented by: Oxycodone HCl (Oxycodone Hcl 20 Mg Tabcr (Oxycontin)) 20 mg PO BID [facility] Stop: 01/16/22 08:59 Last Admin: 01/06/22 08:54 Dose: 20 mg Documented by: Oxycodone HCl (Oxycodone Hcl Ir 5 Mg Tab (Immediate Release)) 10 mg PO Q6H PRN PRN Reason: Pain Stop: 01/16/22 03:17 Last Admin: 01/06/22 05:59 Dose: 10 mg Documented by: Pantoprazole Sodium (Pantoprazole 40 Mg Tab) 40 mg PO DAILY PRN PRN Reason: Abdominal Pain Stop: 02/01/22 03:17 Last Admin: 01/06/22 08:51 Dose: 40 mg Documented by: Polyethylene Glycol (Polyethylene (Miralax) 17 Gm Pack) 17 gm PO DAILY PRN PRN Reason: Constipation Stop: 02/02/22 10:56 Last Admin: 01/03/22 13:30 Dose: 17 gm Documented by: Torsemide (Torsemide 10 Mg Tab) 10 mg PO BID17 YELITZA Stop: 02/01/22 16:59 Last Admin: 01/05/22 08:26 Dose: Not Given Documented by: (1) Congestive heart failure Heart failure chronicity: acute Heart failure type: combined systolic and diastolic Qualified Code(s): I50.41 - Acute combined systolic (congestive) and diastolic (congestive) heart failure
--- NOTE | 2022-01-06 15:39 | Cardiology Progress Note ---
Date of Service January 06, 2022 Assessment & Plan (1) Congestive heart failure: (2) Worsening renal function: Plan: In SR today , since early am of 01/05/22. Torsemide and coreg on hold due to STACY and low BP. Creatinine 1.41 on 12/25, 3.01 on 01/06/22. Body habitus make measurement of BP challenging. Admission and Anticipated Discharge Date Admission Date: January 02, 2022 Subjective Pt seen in follow up of shortness of breath, low BP, pAF. No complaints. Physical Exam Constitutional: + morbidly obese Respiratory: normal respiratory effort, lungs clear to auscultation Cardiovascular: Rate/Rhythm: regular rhythm Heart Sounds: no murmur Extremities: + edema (1+ LE edema ) Neurologic: PERRL, EOMI, accommodation nl, no face palsy, no dysarthria Results & Data ([facility]) Vital Signs (Past 12 Hours) Vital Signs Temp Pulse Resp BP BP Pulse Ox 01/06/22 15:14 36.4 C L 63 19 82/46 L 100 01/06/22 11:19 36.4 C L 59 L 16 90/48 L 99 01/06/22 07:09 36.5 C 73 16 89/46 L 94 01/06/22 05:16 36.4 C L 68 20 87/55 L 100 (1) Congestive heart failure Heart failure chronicity: acute Heart failure type: combined systolic and diastolic Qualified Code(s): I50.41 - Acute combined systolic (congestive) and diastolic (congestive) heart failure
[2022-01-06] MEDS: POLYETHYLENE (MIRALAX) 17 GM PACK PO PRN (19:16)
[2022-01-07] MEDS: oxyCODONE HCL IR 5 MG TAB (IMMEDIATE RELEASE) PO PRN ×2 (02:58→20:54)
[2022-01-07] MEDS: LEVOTHYROXINE SODIUM 125 MCG TABLET PO SCH (05:48)
[2022-01-07] MEDS: MEROPENEM 500 MG in SYRINGE 0 ML IV SCH ×2 (05:48→17:58)
[2022-01-07 06:34] LABS: Calcium 8.6 mg/dl (8.5-10.1); Creatinine Clr Calc Pharmacy 17.7 ml/min; Est GFR (Non-African American) 11.3 ml/min; Magnesium 2.4 mg/dl (1.7-2.4); Phosphorus 5.7 mg/dl (2.5-4.9); Potassium 4.3 mmol/L (3.5-5.1)
[2022-01-07] MEDS: carvediloL 12.5 MG TAB PO SCH ×2 (08:11→20:48)
[2022-01-07] MEDS: BACLOFEN 10 MG TAB PO SCH ×2 (08:21→20:06)
[2022-01-07] MEDS: FOLIC ACID 1 MG TAB PO SCH (08:22)
[2022-01-07] MEDS: oxyCODONE HCL 20 MG TABCR (OxyCONTIN) PO SCH ×2 (08:22→20:07)
[2022-01-07] MEDS: DOFETILIDE 125 MCG CAPSULE PO SCH ×2 (08:23→20:50)
[2022-01-07] MEDS: ASCORBIC ACID 500 MG TAB PO SCH (08:23)
[2022-01-07] MEDS: MULTIVITAMIN TAB PO SCH (08:24)
[2022-01-07] MEDS: FERROUS SULFATE 325 MG TAB PO SCH (08:25)
[2022-01-07] MEDS: CYANOCOBALAMIN (B-12) 500 MCG TABLET PO SCH (09:27)
[2022-01-07] MEDS: MIDODRINE HCL 2.5 MG TAB PO SCH ×3 (09:27→16:42)
[2022-01-07] MEDS: INSULIN ASPART PER UNIT SC SCH ×4 (09:30→20:49)
[2022-01-07 11:23] LABS: Base Excess ABG 7.8 mEq/L (-9-1.8); HCO3 ABG 36 mmol/L (19-24); Oxygen Saturation ABG 94.9 % (90-95); PCO2 ABG 79 mmHg (35-46); PO2 ABG 84 mmHg (80-95); pH ABG 7.28 (7.35-7.45)
[2022-01-07 11:26] LABS: Allen Test Pos (Pos)
[2022-01-07] MEDS ORDERED: FUROSEMIDE 40 MG/4 ML VIAL IV ONE (11:45)
--- NOTE | 2022-01-07 11:49 | Nephrology Progress Note ---
Date of Service January 07, 2022 Assessment & Plan Admission and Anticipated Discharge Date Admission Date: January 02, 2022 Subjective Assessment & Plan (1) Acute on chronic renal failure: Plan: after several days of AF w/ RVR and hypotension now w/ ischemic ATN d/t this and cardiorenal syndrome . Creat getting worse and fluid retention getting worse. holding diuretics since 01/03. almost impossible to assess true fluid status in her case. Also BP low But ?? accuracy. Baseline creatinine is somewhat labile but runs generally to high ones. Her creatinine at d/c on 12/25 was 1.4; was 2 on admission and now > 3.74 today. urine output very low now for many days. With such low urine output days she will get into major trouble. Give lasix 40 iv x 1 today to see the response. Quite possible she may even need dialysis Daily basic metabolic panel No indication for dialysis at this time but she may need it Rec: 1 Bob and accurate urine needed. 2 Accurate BP needed if possible. 3 Will have to give her some lasix-40 iv x 1 today and midodrine for BP support. Subjective HR to 60s this am but SBP in 80s for most of day---Trouble getting accurate bp readings. Now c/o urine issues given bladder prolapse and bob back. Urine --olguric Review of Systems Review of Systems: All systems reviewed & are unremarkable except as noted in Subjective Physical Exam Constitutional: well developed, well nourished, + obese, cooperative (but dosing off periodically) and + lethargic; no acute distress Eyes: EOM intact bilaterally ENMT: Ears: no external ear abnormality Nose: no external nose abnormality Mouth: + dry oral mucous membranes Neck: no nuchal rigidity Respiratory: normal respiratory effort and + paradoxical thoraco-abdominal movement Auscultation: + diminished lung sounds, + crackles (R base) and + wheezes (R insp) Cardiovascular: Rate/Rhythm: regular rate and + irregularly irregular Extremities: + edema (3+ BLE pretibial and hips/ abd wall) Gastrointestinal (Abdomen): Inspection/Auscultation: normal bowel sounds Percussion/Palpation: abdomen soft; abdomen nontender Musculoskeletal: Extremities: + abnormal strength (needs help to roll) Skin: no rashes, warm and dry Neurologic: frequent myoclonic jerks; fluent speech; drops off to sleep fast Psychiatric: Orientation: oriented x 3 Results & Data ([facility]) Vital Signs (Past 12 Hours) Vital Signs Temp Pulse Pulse Resp BP BP Pulse Ox 01/07/22 11:17 36.5 C 72 27 H 99/75 L 95 01/07/22 07:01 36.3 C L 59 L 19 95/53 L 99 01/07/22 03:59 36.4 C L 61 18 80/54 L 98 01/07/22 00:49 58 L
--- NOTE | 2022-01-07 12:35 | Hospitalist Progress Note ---
Date of Service January 07, 2022 Assessment & Plan (1) History of noncompliance with medical treatment: (2) Congestive heart failure: (3) Leg edema: Plan: 76-year-old female w/ PMH of type 2 diabetes, hypothyroidism, hyperlipidemia, COPD, on chronic oxygen baseline 3 liters oxygen, sleep apnea not on CPAP - intolerant as per the patient, paroxysmal atrial fibrillation, cor pulmonale, chronic essential hypertension, morbid obesity, irritable bowel syndrome, stage III chronic kidney disease, mixed stress and urge incontinence, chronic pain syndrome, TIA. Patient presented 01/01 to our ED with complaint of progressive fluid retention along with worsening shortness of breath, denies fever and aspiration, reports compliance with home medication. Of note, patient was recently discharged from hospital after being treated for respiratory failure secondary to COPD exacerbation secondary to COVID-19 infection to rehab and then transitioned to home 1 week ago [employer]. She is being managed for the following: Drowsiness Going back to sleep immediately after short conversation, minimal shortness of breath at rest ABG showed high CO2 of 79 History of COPD and sleep apnea and intolerance to CPAP and/or BiPAP Will apply BiPAP as much as she can tolerate Try to call her son x2 without any response Acute on chronic heart failure with preserved ejection fraction Possible cardiorenal syndrome Patient reports increasing bilateral lower extremity swelling prior to arrival 11/29 echo reviewed: Ejection fraction greater than 70%, hyperdynamic left ventricle with normal left ventricle size and normal left ventricular wall t hickness. Possible cardiorenal syndrome versus dietary noncompliance; Patient reports medication compliance. Pt does have history of noncompliance with meds. Cardiology evaluated the patient, appreciate recommendation. Carvedilol dose increased and pt on torsemide, both are on hold due to patient's low BP. . Pt not getting diuresis d/t low BP, continue to monitor volume status. Continue with strict I's and O's, daily weights, fluid restriction Appreciate cardiology and nephrology input and recommendation Discussion with the emt for possible transfer to ICU to monitor blood pressure-has not been finalized yet Midodrine has been added to improve blood pressure and Lasix will be continued as per instructions from crm manager Carlo to maintain intake output chart-urine output remains low We will get Lasix 40 mg x 1 today Concern for HCAP UTI / CAUTI : Pt w/ bob at home (per patient after her last discharge), urine Cx +ve for ESBL UTI Baseline oxygen 3 L with rest and 4 L with activity --> patient has not required more than 4 L in the ED. Patient reports increased cough but denies aspiration at presentation Admitting CXR: Concern for developing fibrosis versus infectious process Admitting CTAP and CT chest: Suggestive of post inflammatory fibrosis, urinary bladder wall thickening with perivesicular stranding/correlate with urinalysis. Patient started on ertapenem 01/02-->Meropenem 01/04. 01/04 MRSA negative. We will continue current antibiotic STACY with CKD Baseline creatinine around 1.3-1.5 Admitting Cr 1.99, Cr worsening Monitor BMP daily, appreciate nephrology recommendation Creatinine has not been improving and the patient may end up with dialysis Other chronic medical conditions: Sleep apnea CPAP intolerant, diabetes, hypothyroidism, electrolyte disturbances Continue with/resume home medications as and when appropriate. Patient was to get sleep study as an outpatient, which patient said never got a chance. History of A. fib Afib RVR: Continue with home meds, Coreg dose adjusted Not on anticoagulation, Xarelto was stopped in past because of history of hematochezia Patient has historically denied Cardizem vehemently multiple times. Continue to monitor over telemetry Appreciate cardiology input and recommendation COPD Sleep apnea Does not use any CPAP COPD remains stable Patient has declined Incruse Ellipta in the past, continue with home inhalers Will advise BiPAP for now for increasing CO2 Chronic pain Patient points to multiple joint pains in the body which per her are at baseline Continue with home medications. Anemia of chronic disease: Baseline hemoglobin 7-8 Continue to monitor hemoglobin daily and as needed. Continue with iron supplementation DVT prophylaxis. SCDs Re: hx of GIB Full code Disposition: PT/OT, CM to assist with DC planning. Prognosis is guarded Admission and Anticipated Discharge Date Admission Date: January 02, 2022 Subjective 01/06/2022 The patient was seen and examined in telemetry unit She remains generally weak but denies any significant symptoms She has been running low around systolic 80s without any symptoms 01/07/2022 The patient was seen and examined in telemetry unit She has been a little worse today and goes back to sign hydralazine conversation More drowsy with a little short of breath at rest Denies any significant pain Urine output remains low at around 200 last 8 hours Review of Systems Review of Systems: Unobtainable due to cognitive status Physical Exam Physical Exam: Lying in bed with drowsiness and minimal shortness of breath at rest Constitutional: well developed, well nourished, + ill appearing, + morbidly obese, + obese, cooperative (but dosing off periodically) and + lethargic; no acute distress Eyes: PERRL, conjunctivae normal, anicteric sclerae EOM intact bilaterally ENMT: external ear and nose normal, oropharynx normal Ears: no external ear abnormality Nose: no external nose abnormality Mouth: + dry oral mucous membranes Neck: trachea midline, no thyromegaly no nuchal rigidity Respiratory: normal respiratory effort, lungs clear to auscultation normal respiratory effort and + paradoxical thoraco-abdominal movement; no respiratory distress Auscultation: + diminished lung sounds, + crackles (Bibasilar crackles) and + wheezes (R insp) Cardiovascular: Rate/Rhythm: regular rate, regular rhythm, + bradycardic, + tachycardic and + irregularly irregular Heart Sounds: normal S1 and normal S2; no murmur Extremities: + edema (1+ LE edema ) Gastrointestinal (Abdomen): Inspection/Auscultation: normal bowel sounds; abdomen not distended Percussion/Palpation: abdomen soft; abdomen nontender Musculoskeletal: Extremities: strength 5/5 throughout and + abnormal strength (needs help to roll) Skin: no rashes, warm and dry Neurologic: PERRL, EOMI, accommodation nl, no face palsy, no dysarthria Psychiatric: Orientation: oriented x 3 Results & Data Results & Data ([facility]) Vital Signs (Past 12 Hours) Vital Signs Temp Pulse Pulse Resp BP BP Pulse Ox 01/07/22 11:17 36.5 C 72 27 H 99/75 L 95 01/07/22 07:01 36.3 C L 59 L 19 95/53 L 99 01/07/22 03:59 36.4 C L 61 18 80/54 L 98 01/07/22 00:49 58 L Laboratory Results [facility] 01/07/22 05:20 Sodium 131 L Potassium 4.3 Chloride 88 L Carbon Dioxide 37 H BUN 41 H Creatinine 3.74 H D Glucose 104 H Calcium 8.6 Medications Administered Current Inpatient Medications Acetaminophen (Acetaminophen 325 Mg Tab) 650 mg PO Q4H PRN PRN Reason: Pain or Fever Stop: 02/01/22 03:17 Last Admin: 01/05/22 01:12 Dose: 650 mg Documented by: Albuterol (Albuterol Hfa 8 Gm Inhaler) 2 puffs INH Q4 PRN PRN Reason: Wheezing Stop: 02/01/22 11:59 Last Admin: 01/06/22 00:23 Dose: 2 puffs Documented by: Ascorbic Acid (Ascorbic Acid 500 Mg Tab) 250 mg PO DAILY YELITZA Stop: 02/01/22 08:59 Last Admin: 01/07/22 08:23 Dose: 250 mg Documented by: Baclofen (Baclofen 10 Mg Tab) 5 mg PO BID YELITZA Stop: 02/01/22 08:59 Last Admin: 01/07/22 08:21 Dose: Not Given Documented by: Carvedilol (Carvedilol 12.5 Mg Tab) 12.5 mg PO BID [facility] Stop: 02/03/22 20:59 Last Admin: 01/07/22 08:11 Dose: Not Given Documented by: Cyanocobalamin (Cyanocobalamin (B-12) 500 Mcg Tablet) 500 mcg PO DAILY [facility] Stop: 02/01/22 08:59 Last Admin: 01/07/22 09:27 Dose: 500 mcg Documented by: Dextrose (Dextrose 50% 50 Ml Syringe) 25 - 50 ml IV UD PRN; Protocol PRN Reason: Hypoglycemia Protocol Stop: 02/01/22 03:17 Diphenhydramine HCl (Diphenhydramine Capsule 25 Mg Cap) 25 mg PO DAILY PRN PRN Reason: Itching Stop: 02/03/22 15:29 Last Admin: 01/05/22 01:12 Dose: 25 mg Documented by: Dofetilide (Dofetilide 125 Mcg Capsule) 250 mcg PO BID YELITZA Stop: 02/01/22 08:59 Last Admin: 01/07/22 08:23 Dose: 250 mcg Documented by: Ferrous Sulfate (Ferrous Sulfate 325 Mg Tab) 325 mg PO DAILY YELITZA Stop: 02/01/22 08:59 Last Admin: 01/07/22 08:25 Dose: 325 mg Documented by: Folic Acid (Folic Acid 1 Mg Tab) 1 mg PO DAILY YELITZA Stop: 02/01/22 08:59 Last Admin: 01/07/22 08:22 Dose: 1 mg Documented by: Glucagon (Glucagon For Inj 1 Mg Vial) 1 mg SQ UD PRN; Protocol PRN Reason: Hypoglycemia Protocol Stop: 02/01/22 03:17 Glucose (Glucose 10 Tabs/Tube) 4 - 8 tabs PO UD PRN; Protocol PRN Reason: Hypoglycemia Protocol Stop: 02/01/22 03:17 Glucose (Glucose 40% Gel 15 Gm Tube) 15 - 30 gm PO UD PRN; Protocol PRN Reason: Hypoglycemia Protocol Stop: 02/01/22 03:17 Promethazine HCl 12.5 mg/ (Sodium Chloride) 50.5 mls @ 202 mls/hr IV Q6H PRN PRN Reason: Nausea And Vomiting Stop: 02/01/22 03:17 Meropenem 500 mg/ Syringe 10 mls @ 2 mls/min IV Q12H YELITZA; Protocol Stop: 01/11/22 05:59 Last Admin: 01/07/22 05:48 Dose: 2 mls/min Documented by: Insulin Aspart (Insulin Aspart Per Unit) 0 units SC ACHS [facility] Stop: 02/01/22 03:17 Last Admin: 01/07/22 09:30 Dose: 1 units Documented by: Levothyroxine Sodium (Levothyroxine Sodium 125 Mcg Tablet) 125 mcg PO DAILYBB [facility] Stop: 02/01/22 06:29 Last Admin: 01/07/22 05:48 Dose: 125 mcg Documented by: Metoprolol Tartrate (Metoprolol Tartrate 1 Mg/Ml Vial) 5 mg IV Q6 PRN; Protocol PRN Reason: tachycardia Stop: 02/03/22 17:59 Last Admin: 01/04/22 15:57 Dose: 5 mg Documented by: Midodrine (Midodrine Hcl 2.5 Mg Tab) 2.5 mg PO TID@0800,1200,1700 [facility] Stop: 02/05/22 11:59 Last Admin: 01/07/22 09:27 Dose: 2.5 mg Documented by: Miscellaneous (Carbohydrates For Hypoglycemia ) 15 - 30 gm PO UD PRN PRN Reason: Hypoglycemia Protocol Stop: 02/01/22 03:17 Last Admin: 01/03/22 11:08 Dose: 15 gm Documented by: Miscellaneous Information (Meropenem Consult Active) 1 ea N/A UD PRN PRN Reason: Consult Stop: 02/03/22 12:20 Multivitamins (Multivitamin Tab) 1 tab PO DAILY YELITZA Stop: 02/01/22 08:59 Last Admin: 01/07/22 08:24 Dose: 1 tab Documented by: Oxycodone HCl (Oxycodone Hcl 20 Mg Tabcr (Oxycontin)) 20 mg PO BID YELITZA Stop: 01/16/22 08:59 Last Admin: 01/07/22 08:22 Dose: 10 mg Documented by: Oxycodone HCl (Oxycodone Hcl Ir 5 Mg Tab (Immediate Release)) 10 mg PO Q6H PRN PRN Reason: Pain Stop: 01/16/22 03:17 Last Admin: 01/07/22 02:58 Dose: 10 mg Documented by: Pantoprazole Sodium (Pantoprazole 40 Mg Tab) 40 mg PO DAILY PRN PRN Reason: Abdominal Pain Stop: 02/01/22 03:17 Last Admin: 01/06/22 08:51 Dose: 40 mg Documented by: Polyethylene Glycol (Polyethylene (Miralax) 17 Gm Pack) 17 gm PO DAILY PRN PRN Reason: Constipation Stop: 02/02/22 10:56 Last Admin: 01/06/22 19:16 Dose: 17 gm Documented by: Torsemide (Torsemide 10 Mg Tab) 10 mg PO BID17 YELITZA Stop: 02/01/22 16:59 Last Admin: 01/05/22 08:26 Dose: Not Given Documented by: (1) Congestive heart failure Heart failure chronicity: acute Heart failure type: combined systolic and diastolic Qualified Code(s): I50.41 - Acute combined systolic (congestive) and diastolic (congestive) heart failure
[2022-01-07] MEDS: PROMETHAZINE HCL 12.5 MG in SODIUM CHLORIDE 0.9% 50 ML IV PRN (16:36)
[2022-01-07 21:06] LABS: Base Excess ABG 7.5 mEq/L (-9-1.8); HCO3 ABG 35 mmol/L (19-24); PCO2 ABG 65 mmHg (35-46); PO2 ABG 69 mmHg (80-95); pH ABG 7.34 (7.35-7.45)
[2022-01-07 21:07] LABS: Allen Test Pos (Pos)
[2022-01-08] MEDS: oxyCODONE HCL IR 5 MG TAB (IMMEDIATE RELEASE) PO PRN ×2 (05:14→21:00)
[2022-01-08] MEDS: MEROPENEM 500 MG in SYRINGE 0 ML IV SCH (05:15)
[2022-01-08] MEDS: LEVOTHYROXINE SODIUM 125 MCG TABLET PO SCH (05:20)
[2022-01-08 07:37] LABS: Basophils # (auto) 0.02 K/uL (0-0.2); Basophils % (auto) 0.3 %; Eosinophils # (auto) 0.53 K/uL (0-0.5); Eosinophils % (auto) 6.9 %; Hematocrit (blood only) 27.7 % (37-47); Hemoglobin 8.4 g/dL (12.0-16.0); Immature Granulocytes # (auto) 0.03 K/uL (0.00-0.02); Immature Granulocytes % (auto) 0.4 %; Lymphocytes # (auto) 2.03 K/uL (1.2-3.4); Lymphocytes % (auto) 26.6 %; Mean Corpuscular Hemoglobin 25.6 pg (25-34); Mean Corpuscular Hgb Conc 30.3 g/dL (32-36); Mean Corpuscular Volume 84.5 fL (80-100); Mean Platelet Volume 9.3 fL (7.4-10.4); Monocytes % (auto) 9.2 %; Neutrophils # (auto) 4.33 K/uL (1.4-6.5); Neutrophils % (auto) 56.6 %; Platelet Count 221 K/uL (130-400); RDW Coefficient of Variation 21.6 % (11.5-14.5); RDW Standard Deviation 67.2 fL (36.4-46.3); Red Blood Count 3.28 M/uL (4.2-5.4); White Blood Count 7.64 K/uL (4.8-10.8)
[2022-01-08 08:03] LABS: BUN Creatinine Ratio 11.1 (10-20); Calcium 8.7 mg/dl (8.5-10.1); Creatinine Clr Calc Pharmacy 15.6 ml/min; Est GFR (African American) 10.9 ml/min; Est GFR (Non-African American) 9.4 ml/min; Magnesium 2.5 mg/dl (1.7-2.4); Phosphorus 5.3 mg/dl (2.5-4.9); Potassium 4.7 mmol/L (3.5-5.1)
[2022-01-08] MEDS: INSULIN ASPART PER UNIT SC SCH ×4 (08:31→20:05)
[2022-01-08] MEDS: BACLOFEN 10 MG TAB PO SCH ×2 (08:31→20:49)
[2022-01-08] MEDS: DOFETILIDE 125 MCG CAPSULE PO SCH ×2 (08:31→21:00)
[2022-01-08 08:32] LABS: Anisocytosis Present; Target Cells 1+
[2022-01-08] MEDS: ASCORBIC ACID 500 MG TAB PO SCH (08:32)
[2022-01-08] MEDS: FOLIC ACID 1 MG TAB PO SCH (08:32)
[2022-01-08] MEDS: PANTOprazole 40 MG TAB PO PRN (08:32)
[2022-01-08] MEDS: MULTIVITAMIN TAB PO SCH (08:33)
[2022-01-08] MEDS: carvediloL 12.5 MG TAB PO SCH ×2 (08:33→20:48)
[2022-01-08] MEDS: FERROUS SULFATE 325 MG TAB PO SCH (08:33)
[2022-01-08] MEDS: CYANOCOBALAMIN (B-12) 500 MCG TABLET PO SCH (08:34)
[2022-01-08] MEDS: MIDODRINE HCL 2.5 MG TAB PO SCH ×3 (08:37→17:39)
[2022-01-08] MEDS: oxyCODONE HCL 20 MG TABCR (OxyCONTIN) PO SCH ×2 (08:37→20:49)
--- NOTE | 2022-01-08 09:20 | Hospitalist Progress Note ---
Date of Service January 08, 2022 Assessment & Plan (1) History of noncompliance with medical treatment: (2) Congestive heart failure: (3) Leg edema: Plan: 76-year-old female w/ PMH of type 2 diabetes, hypothyroidism, hyperlipidemia, COPD, on chronic oxygen baseline 3 liters oxygen, sleep apnea not on CPAP - intolerant as per the patient, paroxysmal atrial fibrillation, cor pulmonale, chronic essential hypertension, morbid obesity, irritable bowel syndrome, stage III chronic kidney disease, mixed stress and urge incontinence, chronic pain syndrome, TIA. Patient presented 01/01 to our ED with complaint of progressive fluid retention along with worsening shortness of breath, denies fever and aspiration, reports compliance with home medication. Of note, patient was recently discharged from hospital after being treated for respiratory failure secondary to COPD exacerbation secondary to COVID-19 infection to rehab and then transitioned to home 1 week ago [employer]. She is being managed for the following: Drowsiness Going back to sleep immediately after short conversation, minimal shortness of breath at rest ABG showed high CO2 of 79 History of COPD and sleep apnea and intolerance to CPAP and/or BiPAP Condition has not changed, she has been conversing normally and followed by that still has brief episode of drowsiness and semiresponsiveness We will continue with them BiPAP as long as she can tolerate She did not want to have any mechanical ventilator if treatment needs to be on it and what she is quite clear about She wants to continue with dialysis if she needs that Prior to call her son again this morning without any reply-left a message Acute on chronic heart failure with preserved ejection fraction Possible cardiorenal syndrome Patient reports increasing bilateral lower extremity swelling prior to arrival 11/29 echo reviewed: Ejection fraction greater than 70%, hyperdynamic left ventricle with normal left ventricle size and normal left ventricular wall thickness. Possible cardiorenal syndrome versus dietary noncompliance; Patient reports medication compliance. Pt does have history of noncompliance with meds. Cardiology evaluated the patient, appreciate recommendation. Carvedilol dose increased and pt on torsemide, both are on hold due to patient's low BP. . Pt not getting diuresis d/t low BP, continue to monitor volume status. Continue with strict I's and O's, daily weights, fluid restriction Appreciate cardiology and nephrology input and recommendation Discussion with the straddle bug for possible transfer to ICU to monitor blood pressure-has not been finalized yet Midodrine has been added to improve blood pressure and Lasix will be continued as per instructions from clinical quality rn Carlo to maintain intake output chart-urine output remains low Got 40 mg Lasix yesterday without much improvement in urine output and the creatinine has been going up Will likely need dialysis Concern for HCAP UTI / CAUTI : Pt w/ bob at home (per patient after her last discharge), urine Cx +ve for ESBL UTI Baseline oxygen 3 L with rest and 4 L with activity --> patient has not required more than 4 L in the ED. Patient reports increased cough but denies aspiration at presentation Admitting CXR: Concern for developing fibrosis versus infectious process Admitting CTAP and CT chest: Suggestive of post inflammatory fibrosis, urinary bladder wall thickening with perivesicular stranding/correlate with urinalysis. Patient started on ertapenem 01/02-->Meropenem 01/04. 01/04 MRSA negative. We will continue current antibiotic for now STACY with CKD Baseline creatinine around 1.3-1.5 Admitting Cr 1.99, Cr worsening Monitor BMP daily, appreciate nephrology recommendation Creatinine has not been improving and the patient may end up with dialysis Creatinine has been going up and 80s 48/4.33 as of 01/08/2022 Patient is agreeable for dialysis but not for intubation Other chronic medical conditions: Sleep apnea CPAP intolerant, diabetes, hypothyroidism, electrolyte disturbances Continue with/resume home medications as and when appropriate. Patient was to get sleep study as an outpatient, which patient said never got a chance. History of A. fib Afib RVR: Continue with home meds, Coreg dose adjusted Not on anticoagulation, Xarelto was stopped in past because of history of hematochezia Patient has historically denied Cardizem vehemently multiple times. Continue to monitor over telemetry Appreciate cardiology input and recommendation COPD Sleep apnea Does not use any CPAP COPD remains stable Patient has declined Incruse Ellipta in the past, continue with home inhalers Will advise BiPAP for now for increasing CO2 Chronic pain Patient points to multiple joint pains in the body which per her are at baseline Continue with home medications. Anemia of chronic disease: Baseline hemoglobin 7-8 Continue to monitor hemoglobin daily and as needed. Continue with iron supplementation DVT prophylaxis. SCDs Re: hx of GIB Full code Disposition: PT/OT, CM to assist with DC planning. Prognosis is guarded Discussed with the son in detail in presence of the patient Admission and Anticipated Discharge Date Admission Date: January 02, 2022 Subjective 01/06/2022 The patient was seen and examined in telemetry unit She remains generally weak but denies any significant symptoms She has been running low around systolic 80s without any symptoms 01/07/2022 The patient was seen and examined in telemetry unit She has been a little worse today and goes back to sign hydralazine conversation More drowsy with a little short of breath at rest Denies any significant pain Urine output remains low at around 200 last 8 hours 01/08/2022 Patient is seen and examined in telemetry unit She has been going great since this morning, she has been talking normally then suddenly goes into transient drowsiness Has moderate shortness of breath at rest Has not been making out much urine only about 100 mL last shift Review of Systems Review of Systems: Unobtainable due to cognitive status Physical Exam Physical Exam: Lying in bed with drowsiness and moderate shortness of breath at rest Constitutional: well developed, well nourished, + ill appearing, + morbidly obese, + obese, cooperative (but dosing off periodically) and + lethargic; no acute distress Eyes: PERRL, conjunctivae normal, anicteric sclerae EOM intact bilaterally ENMT: external ear and nose normal, oropharynx normal Ears: no external ear abnormality Nose: no external nose abnormality Mouth: + dry oral mucous membranes Neck: trachea midline, no thyromegaly no nuchal rigidity Respiratory: normal respiratory effort, lungs clear to auscultation normal respiratory effort and + paradoxical thoraco-abdominal movement; no respiratory distress Auscultation: + diminished lung sounds, + crackles (Bibasilar crackles) and + wheezes (R insp) Cardiovascular: Rate/Rhythm: regular rate, regular rhythm, + bradycardic, + tachycardic and + irregularly irregular Heart Sounds: normal S1 and normal S2; no murmur Extremities: + edema (1+ LE edema ) Gastrointestinal (Abdomen): Inspection/Auscultation: normal bowel sounds; abdomen not distended Percussion/Palpation: abdomen soft; abdomen nontender Musculoskeletal: Extremities: strength 5/5 throughout and + abnormal strength (needs help to roll) Skin: no rashes, warm and dry Neurologic: PERRL, EOMI, accommodation nl, no face palsy, no dysarthria Psychiatric: Orientation: oriented x 3 Results & Data Results & Data ([facility]) Vital Signs (Past 12 Hours) Vital Signs Temp Pulse Pulse Resp BP BP Pulse Ox 01/08/22 07:55 36.8 C 62 18 99/53 L 96 01/08/22 03:00 36.8 C 62 17 92/46 L 96 01/08/22 02:50 58 L 14 97 01/08/22 00:24 59 L 01/07/22 22:54 36.4 C L 62 18 84/44 L 96 01/07/22 21:57 57 L 17 93 Laboratory Results Short CBC 01/08/22 Range/Units 06:56 WBC 7.64 (4.8-10.8) K/uL Hgb 8.4 L (12.0-16.0) g/dL Hct 27.7 L (37-47) % Plt Count 221 (130-400) K/uL BMP 01/08/22 06:56 Sodium 128 L Potassium 4.7 Chloride 87 L Carbon Dioxide 35 H BUN 48 H Creatinine 4.33 H D Glucose 80 Calcium 8.7 Medications Administered Current Inpatient Medications Acetaminophen (Acetaminophen 325 Mg Tab) 650 mg PO Q4H PRN PRN Reason: Pain or Fever Stop: 02/01/22 03:17 Last Admin: 01/05/22 01:12 Dose: 650 mg Documented by: Albuterol (Albuterol Hfa 8 Gm Inhaler) 2 puffs INH Q4 PRN PRN Reason: Wheezing Stop: 02/01/22 11:59 Last Admin: 01/06/22 00:23 Dose: 2 puffs Documented by: Ascorbic Acid (Ascorbic Acid 500 Mg Tab) 250 mg PO DAILY [facility] Stop: 02/01/22 08:59 Last Admin: 01/08/22 08:32 Dose: 250 mg Documented by: Baclofen (Baclofen 10 Mg Tab) 5 mg PO BID YELITZA Stop: 02/01/22 08:59 Last Admin: 01/08/22 08:31 Dose: 5 mg Documented by: Carvedilol (Carvedilol 12.5 Mg Tab) 12.5 mg PO BID [facility] Stop: 02/03/22 20:59 Last Admin: 01/08/22 08:33 Dose: Not Given Documented by: Cyanocobalamin (Cyanocobalamin (B-12) 500 Mcg Tablet) 500 mcg PO DAILY YELITZA Stop: 02/01/22 08:59 Last Admin: 01/08/22 08:34 Dose: 500 mcg Documented by: Dextrose (Dextrose 50% 50 Ml Syringe) 25 - 50 ml IV UD PRN; Protocol PRN Reason: Hypoglycemia Protocol Stop: 02/01/22 03:17 Diphenhydramine HCl (Diphenhydramine Capsule 25 Mg Cap) 25 mg PO DAILY PRN PRN Reason: Itching Stop: 02/03/22 15:29 Last Admin: 01/05/22 01:12 Dose: 25 mg Documented by: Dofetilide (Dofetilide 125 Mcg Capsule) 250 mcg PO BID YELITZA Stop: 02/01/22 08:59 Last Admin: 01/08/22 08:31 Dose: 250 mcg Documented by: Ferrous Sulfate (Ferrous Sulfate 325 Mg Tab) 325 mg PO DAILY YELITZA Stop: 02/01/22 08:59 Last Admin: 01/08/22 08:33 Dose: 325 mg Documented by: Folic Acid (Folic Acid 1 Mg Tab) 1 mg PO DAILY YELITZA Stop: 02/01/22 08:59 Last Admin: 01/08/22 08:32 Dose: 1 mg Documented by: Glucagon (Glucagon For Inj 1 Mg Vial) 1 mg SQ UD PRN; Protocol PRN Reason: Hypoglycemia Protocol Stop: 02/01/22 03:17 Glucose (Glucose 10 Tabs/Tube) 4 - 8 tabs PO UD PRN; Protocol PRN Reason: Hypoglycemia Protocol Stop: 02/01/22 03:17 Glucose (Glucose 40% Gel 15 Gm Tube) 15 - 30 gm PO UD PRN; Protocol PRN Reason: Hypoglycemia Protocol Stop: 02/01/22 03:17 Promethazine HCl 12.5 mg/ (Sodium Chloride) 50.5 mls @ 202 mls/hr IV Q6H PRN PRN Reason: Nausea And Vomiting Stop: 02/01/22 03:17 Last Infusion: 01/07/22 17:27 Dose: Infused Documented by: Meropenem 500 mg/ Syringe 10 mls @ 2 mls/min IV Q12H YELITZA; Protocol Stop: 01/11/22 05:59 Last Admin: 01/08/22 05:15 Dose: 2 mls/min Documented by: Insulin Aspart (Insulin Aspart Per Unit) 0 units SC ACHS YELITZA Stop: 02/01/22 03:17 Last Admin: 01/08/22 08:31 Dose: Not Given Documented by: Levothyroxine Sodium (Levothyroxine Sodium 125 Mcg Tablet) 125 mcg PO DAILYBB YELITZA Stop: 02/01/22 06:29 Last Admin: 01/08/22 05:20 Dose: 125 mcg Documented by: Metoprolol Tartrate (Metoprolol Tartrate 1 Mg/Ml Vial) 5 mg IV Q6 PRN; Protocol PRN Reason: tachycardia Stop: 02/03/22 17:59 Last Admin: 01/04/22 15:57 Dose: 5 mg Documented by: Midodrine (Midodrine Hcl 2.5 Mg Tab) 2.5 mg PO TID@0800,1200,1700 YELITZA Stop: 02/05/22 11:59 Last Admin: 01/08/22 08:37 Dose: 2.5 mg Documented by: Miscellaneous (Carbohydrates For Hypoglycemia ) 15 - 30 gm PO UD PRN PRN Reason: Hypoglycemia Protocol Stop: 02/01/22 03:17 Last Admin: 01/03/22 11:08 Dose: 15 gm Documented by: Miscellaneous Information (Meropenem Consult Active) 1 ea N/A UD PRN PRN Reason: Consult Stop: 02/03/22 12:20 Multivitamins (Multivitamin Tab) 1 tab PO DAILY YELITZA Stop: 02/01/22 08:59 Last Admin: 01/08/22 08:33 Dose: 1 tab Documented by: Oxycodone HCl (Oxycodone Hcl 20 Mg Tabcr (Oxycontin)) 20 mg PO BID YELITZA Stop: 01/16/22 08:59 Last Admin: 01/08/22 08:37 Dose: 20 mg Documented by: Oxycodone HCl (Oxycodone Hcl Ir 5 Mg Tab (Immediate Release)) 10 mg PO Q6H PRN PRN Reason: Pain Stop: 01/16/22 03:17 Last Admin: 01/08/22 05:14 Dose: 10 mg Documented by: Pantoprazole Sodium (Pantoprazole 40 Mg Tab) 40 mg PO DAILY PRN PRN Reason: Abdominal Pain Stop: 02/01/22 03:17 Last Admin: 01/08/22 08:32 Dose: 40 mg Documented by: Polyethylene Glycol (Polyethylene (Miralax) 17 Gm Pack) 17 gm PO DAILY PRN PRN Reason: Constipation Stop: 02/02/22 10:56 Last Admin: 01/06/22 19:16 Dose: 17 gm Documented by: Torsemide (Torsemide 10 Mg Tab) 10 mg PO BID17 YELITZA Stop: 02/01/22 16:59 Last Admin: 01/05/22 08:26 Dose: Not Given Documented by: (1) Congestive heart failure Heart failure chronicity: acute Heart failure type: combined systolic and diastolic Qualified Code(s): I50.41 - Acute combined systolic (congestive) and diastolic (congestive) heart failure
[2022-01-08] MEDS ORDERED: FUROSEMIDE 10 MG/ML 10 ML VIAL IV ONE (10:01)
--- NOTE | 2022-01-08 10:03 | Nephrology Progress Note ---
Date of Service January 08, 2022 Assessment & Plan Admission and Anticipated Discharge Date Admission Date: January 02, 2022 Subjective Subjective Assessment & Plan (1) Acute on chronic renal failure: Plan: after several days of AF w/ RVR and hypotension now w/ ischemic ATN d/t this and cardiorenal syndrome . Creat getting worse and fluid retention getting worse. holding diuretics since 01/03. almost impossible to assess true fluid status in her case. Also BP low But ?? accuracy. Baseline creatinine is somewhat labile but runs generally to high ones. Her creatinine at d/c on 12/25 was 1.4; was 2 on admission and now > 3.74 today. urine output very low now for many days. With such low urine output days she will get into major trouble. Give lasix 40 iv x 1 today to see the response. Quite possible she need dialysis Rec: 1 Bob and accurate urine --Did bladder scan also and she has 134 ml. 2 Accurate BP needed if possible. 3 NO urine with lasix 40 iv. Give 100 iv x 1 as a challenge. lack of urine means very high chance she will need Dialysis. I discused and she said she will do dialysis if needed. If no urine will plan for tunnelled cath. she can only go maybe 2 days max without renal recovery or dialysis Subjective Now c/o urine issues given bladder prolapse and bob back. Urine --oliguric. On Bipap for AMS and also high Co2 Review of Systems Review of Systems: All systems reviewed & are unremarkable except as noted in Subjective Physical Exam Constitutional: well developed, well nourished, + obese, cooperative (but dosing off periodically) and + lethargic; no acute distress Eyes: EOM intact bilaterally ENMT: Ears: no external ear abnormality Nose: no external nose abnormality Mouth: + dry oral mucous membranes Neck: no nuchal rigidity Respiratory: normal respiratory effort and + paradoxical thoraco-abdominal movement Auscultation: + diminished lung sounds, + crackles (R base) and + wheezes (R insp) Cardiovascular: Rate/Rhythm: regular rate and + irregularly irregular Extremities: + edema (4+ BLE pretibial and hips/ abd wall) Gastrointestinal (Abdomen): Inspection/Auscultation: normal bowel sounds Percussion/Palpation: abdomen soft; abdomen nontender Musculoskeletal: Extremities: + abnormal strength (needs help to roll) Skin: no rashes, warm and dry Neurologic: frequent myoclonic jerks; fluent speech; drops off to sleep fast Psychiatric: Orientation: oriented x 3 Results & Data ([facility]) Vital Signs (Past 12 Hours) Vital Signs Temp Pulse Pulse Resp BP BP Pulse Ox 01/08/22 09:34 78 18 94 01/08/22 07:55 36.8 C 62 18 99/53 L 96 01/08/22 03:00 36.8 C 62 17 92/46 L 96 01/08/22 02:50 58 L 14 97 01/08/22 00:24 59 L 01/07/22 22:54 36.4 C L 62 18 84/44 L 96
[2022-01-09] MEDS: LEVOTHYROXINE SODIUM 125 MCG TABLET PO SCH (05:20)
[2022-01-09] MEDS: MEROPENEM 500 MG in SYRINGE 0 ML IV SCH (05:20)
[2022-01-09 09:17] LABS: BUN Creatinine Ratio 10.9 (10-20); Calcium 8.7 mg/dl (8.5-10.1); Creatinine Clr Calc Pharmacy 13.9 ml/min; Est GFR (African American) 9.5 ml/min; Est GFR (Non-African American) 8.2 ml/min; Potassium 4.8 mmol/L (3.5-5.1)
[2022-01-09] MEDS: INSULIN ASPART PER UNIT SC SCH ×4 (09:23→21:20)
[2022-01-09] MEDS: FOLIC ACID 1 MG TAB PO SCH (09:27)
[2022-01-09] MEDS: PANTOprazole 40 MG TAB PO PRN (09:27)
[2022-01-09] MEDS: MULTIVITAMIN TAB PO SCH (09:27)
[2022-01-09] MEDS: DOFETILIDE 125 MCG CAPSULE PO SCH (09:27)
[2022-01-09] MEDS: MIDODRINE HCL 2.5 MG TAB PO SCH ×3 (09:28→18:07)
[2022-01-09] MEDS: ASCORBIC ACID 500 MG TAB PO SCH (09:28)
[2022-01-09] MEDS: CYANOCOBALAMIN (B-12) 500 MCG TABLET PO SCH (09:28)
--- NOTE | 2022-01-09 09:28 | Nephrology Progress Note ---
Date of Service January 09, 2022 Assessment & Plan Admission and Anticipated Discharge Date Admission Date: January 02, 2022 Subjective Assessment & Plan (1) Acute on chronic renal failure: Plan: after several days of AF w/ RVR and hypotension now w/ ischemic ATN d/t this and cardiorenal syndrome . Creat getting worse and fluid retention getting worse. holding diuretics since 01/03. almost impossible to assess true fluid status in her case. Also BP low But ?? accuracy. Baseline creatinine is somewhat labile but runs generally to high ones. Her creatinine at d/c on 12/25 was 1.4; was 2 on admission and now > 3.74 today. urine output very low now for many days. With such low urine output days she will get into major trouble. Give lasix 40 iv x 1 today to see the response. Quite possible she need dialysis Rec: 1 Matos and accurate urine --Severe oliguria- UO 75 ml. Despite 100 iv lasix 2 Accurate BP needed if possible. 3 NO urine with lasix 100 iv.I discussed and she said she will do dialysis. will plan for tunnelled cath. Even though creat dont seem that high in the 4's but with uo less than 100 ml for many days she does have lot of fluid retention. Subjective Seems more somnolent. On Bipap also at times. Urine low. Review of Systems Review of Systems: All systems reviewed & are unremarkable except as noted in Subjective Physical Exam Constitutional: well developed, well nourished, + obese, cooperative (but dosing off periodically) and + lethargic; no acute distress Eyes: EOM intact bilaterally ENMT: Ears: no external ear abnormality Nose: no external nose abnormality Mouth: + dry oral mucous membranes Neck: no nuchal rigidity Respiratory: normal respiratory effort and + paradoxical thoraco-abdominal movement Auscultation: + diminished lung sounds, + crackles (R base) and + wheezes (R insp) Cardiovascular: Rate/Rhythm: regular rate and + irregularly irregular Extremities: + edema (4+ BLE pretibial and hips/ abd wall) Gastrointestinal (Abdomen): Inspection/Auscultation: normal bowel sounds Percussion/Palpation: abdomen soft; abdomen nontender Musculoskeletal: Extremities: + abnormal strength (needs help to roll) Skin: no rashes, warm and dry Neurologic: frequent myoclonic jerks; fluent speech; drops off to sleep fast Psychiatric: Orientation: oriented x 3 Results & Data ([facility]) Vital Signs (Past 12 Hours) Vital Signs Temp Pulse Pulse Resp BP Pulse Ox 01/09/22 08:15 36.5 C 67 16 108/68 97 01/09/22 07:15 60 01/09/22 03:36 36.5 C 84 24 100/54 L 100 01/09/22 00:08 36.6 C 66 22 121/70 92 01/08/22 23:03 58 L
[2022-01-09] MEDS: BACLOFEN 10 MG TAB PO SCH ×2 (09:31→21:18)
[2022-01-09] MEDS: carvediloL 12.5 MG TAB PO SCH ×2 (09:32→21:19)
[2022-01-09] MEDS: FERROUS SULFATE 325 MG TAB PO SCH (09:32)
[2022-01-09] MEDS: oxyCODONE HCL 20 MG TABCR (OxyCONTIN) PO SCH ×2 (09:35→21:18)
--- NOTE | 2022-01-09 15:56 | Cardiology Progress Note ---
Date of Service January 09, 2022 Assessment & Plan (1) Acute on chronic renal failure: (2) Congestive heart failure: (3) Long COVID: (4) Paroxysmal atrial fibrillation: Plan: 76 year old morbidly obese female, BMI 48 kg/m2 with history of multiple recent admission dating back to presentation on 11/08/21 with COVID-19 pneumonia, with progressively worse symptoms 10 days after initial diagnosis at home. Discharged 11/20/21. Readmitted 11/29/21 to 12/08/21, and admitted again of 01/01/22. Patient longstanding history of heart failure with preserved systolic function, pAF, and intolerance to multiple medications. Now with progressive renal insufficiency, creatinine 1.25 of 12/14/21, 4.86 today with minimal urine output despite high dose diuretic therapy. Currently in sinus rhythm. Dofetilide contraindicated for GFR < 20 ml/min/m2. No dose defined for patients receiving HD or PD. Reverting to amiodarone likely the only reasonable option, however dofetilide will need to wash out for 72 hours. Update EKG. Discussed with nephrology, dialysis access planned. Anticoagulation on hold. Admission and Anticipated Discharge Date Admission Date: January 02, 2022 Subjective Pt seen in cardiology follow up. Pt without acute subjective complaint. She fell asleep mid sentence on two occasions during my interview, snored a few times, and then continued speaking , maintaining her train of though. SR in the 60s noted on telemetry. Physical Exam Constitutional: + ill appearing and + morbidly obese Respiratory: decreased BS at the bases Cardiovascular: Rate/Rhythm: regular rate and regular rhythm Heart Sounds: no murmur Extremities: + edema (2+ edema ) Gastrointestinal (Abdomen): normal bowel sounds, soft, nontender, no hepatosplenomegaly Neurologic: follows commands. Results & Data ([facility]) Vital Signs (Past 12 Hours) Vital Signs Temp Pulse Pulse Resp BP Pulse Ox 01/09/22 15:19 36.7 C 63 15 121/57 L 96 01/09/22 14:52 57 L 01/09/22 12:00 36.6 C 66 19 125/88 95 01/09/22 08:15 36.5 C 67 16 108/68 97 01/09/22 07:15 60 Diagnostic Findings EKG performed 01/03/22 , reveals AF at 131 bpm, with subsequent conversion back to SR. Most recent echocardiogram 11/29/21: Technically limited study Hyperdynamic LV function , LVEF > 70% (1) Congestive heart failure Heart failure chronicity: acute Heart failure type: combined systolic and diastolic Qualified Code(s): I50.41 - Acute combined systolic (congestive) and diastolic (congestive) heart failure
--- NOTE | 2022-01-09 17:14 | Hospitalist Progress Note ---
Date of Service January 09, 2022 Assessment & Plan (1) History of noncompliance with medical treatment: (2) Congestive heart failure: (3) Leg edema: Plan: 76-year-old female w/ PMH of type 2 diabetes, hypothyroidism, hyperlipidemia, COPD, on chronic oxygen baseline 3 liters oxygen, sleep apnea not on CPAP - intolerant as per the patient, paroxysmal atrial fibrillation, cor pulmonale, chronic essential hypertension, morbid obesity, irritable bowel syndrome, stage III chronic kidney disease, mixed stress and urge incontinence, chronic pain syndrome, TIA. Patient presented 01/01 to our ED with complaint of progressive fluid retention along with worsening shortness of breath, denies fever and aspiration, reports compliance with home medication. Of note, patient was recently discharged from hospital after being treated for respiratory failure secondary to COPD exacerbation secondary to COVID-19 infection to rehab and then transitioned to home 1 week ago [employer]. She is being managed for the following: Drowsiness Going back to sleep immediately after short conversation, minimal shortness of breath at rest ABG showed high CO2 of 79 History of COPD and sleep apnea and intolerance to CPAP and/or BiPAP Condition has not changed, she has been conversing normally and followed by that still has brief episode of drowsiness and semiresponsiveness We will continue with them BiPAP as long as she can tolerate She did not want to have any mechanical ventilator if treatment needs to be on it and what she is quite clear about She wants to continue with dialysis if she needs that Prior to call her son again this morning without any reply-left a message Still having episodic transient loss of consciousness likely secondary to uremia We will continue BiPAP as tolerated to improve CO2 level Acute on chronic heart failure with preserved ejection fraction Possible cardiorenal syndrome Patient reports increasing bilateral lower extremity swelling prior to arrival 11/29 echo reviewed: Ejection fraction greater than 70%, hyperdynamic left ventricle with normal left ventricle size and normal left ventricular wall thickness. Possible cardiorenal syndrome versus dietary noncompliance; Patient reports medication compliance. Pt does have history of noncompliance with meds. Cardiology evaluated the patient, appreciate recommendation. Carvedilol dose increased and pt on torsemide, both are on hold due to patient's low BP. . Pt not getting diuresis d/t low BP, continue to monitor volume status. Continue with strict I's and O's, daily weights, fluid restriction Appreciate cardiology and nephrology input and recommendation Discussion with the cardiology nurse practitioner for possible transfer to ICU to monitor blood pressure-has not been finalized yet Midodrine has been added to improve blood pressure and Lasix will be continued as per instructions from provider engagement executive Carlo to maintain intake output chart-urine output remains low Got 40 mg Lasix yesterday without much improvement in urine output and the creatinine has been going up Almost no urine output as of last 24 hours and she will need dialysis Concern for HCAP UTI / CAUTI : Pt w/ bob at home (per patient after her last discharge), urine Cx +ve for ESBL UTI Baseline oxygen 3 L with rest and 4 L with activity --> patient has not required more than 4 L in the ED. Patient reports increased cough but denies aspiration at presentation Admitting CXR: Concern for developing fibrosis versus infectious process Admitting CTAP and CT chest: Suggestive of post inflammatory fibrosis, urinary bladder wall thickening with perivesicular stranding/correlate with urinalysis. Patient started on ertapenem 01/02-->Meropenem 01/04. 01/04 MRSA negative. We will continue current antibiotic for now-we will continue for about 10 days in total STACY with CKD Baseline creatinine around 1.3-1.5 Admitting Cr 1.99, Cr worsening Monitor BMP daily, appreciate nephrology recommendation Creatinine has not been improving and the patient may end up with dialysis Creatinine has been going up and 80s 48/4.33 as of 01/08/2022 Patient is agreeable for dialysis but not for intubation Will need hemodialysis Other chronic medical conditions: Sleep apnea CPAP intolerant, diabetes, hypothyroidism, electrolyte disturbances Continue with/resume home medications as and when appropriate. Patient was to get sleep study as an outpatient, which patient said never got a chance. History of A. fib Afib RVR: Continue with home meds, Coreg dose adjusted Not on anticoagulation, Xarelto was stopped in past because of history of hematochezia Patient has historically denied Cardizem vehemently multiple times. Continue to monitor over telemetry Appreciate cardiology input and recommendation COPD Sleep apnea Does not use any CPAP COPD remains stable Patient has declined Incruse Ellipta in the past, continue with home inhalers Will advise BiPAP for now for increasing CO2 Chronic pain Patient points to multiple joint pains in the body which per her are at baseline Continue with home medications. Anemia of chronic disease: Baseline hemoglobin 7-8 Continue to monitor hemoglobin daily and as needed. Continue with iron supplementation DVT prophylaxis. SCDs Re: hx of GIB Full code Disposition: PT/OT, CM to assist with DC planning. Prognosis is guarded Discussed with the son in detail in presence of the patient Admission and Anticipated Discharge Date Admission Date: January 02, 2022 Subjective 01/06/2022 The patient was seen and examined in telemetry unit She remains generally weak but denies any significant symptoms She has been running low around systolic 80s without any symptoms 01/07/2022 The patient was seen and examined in telemetry unit She has been a little worse today and goes back to sign hydralazine conversation More drowsy with a little short of breath at rest Denies any significant pain Urine output remains low at around 200 last 8 hours 01/08/2022 Patient is seen and examined in telemetry unit She has been going great since this morning, she has been talking normally then suddenly goes into transient drowsiness Has moderate shortness of breath at rest Has not been making out much urine only about 100 mL last shift 01/09/2022 The patient was seen and examined in telemetry unit She is worse this morning with frequent attacks of brief period of f unresponsiveness Denies any significant pain and/or shortness of breath Has been making out any urine Review of Systems Review of Systems: Unobtainable due to cognitive status Physical Exam Physical Exam: Lying in bed with drowsiness and moderate shortness of breath at rest Constitutional: well developed, well nourished, + ill appearing, + morbidly obese, + obese, cooperative (but dosing off periodically) and + lethargic; no acute distress Eyes: PERRL, conjunctivae normal, anicteric sclerae EOM intact bilaterally ENMT: external ear and nose normal, oropharynx normal Ears: no external ear abnormality Nose: no external nose abnormality Mouth: + dry oral mucous membranes Neck: trachea midline, no thyromegaly no nuchal rigidity Respiratory: normal respiratory effort, lungs clear to auscultation normal respiratory effort and + paradoxical thoraco-abdominal movement; no respiratory distress Auscultation: + diminished lung sounds, + crackles (Bibasilar crackles) and + wheezes (R insp) Cardiovascular: Rate/Rhythm: regular rate, regular rhythm, + bradycardic, + tachycardic and + irregularly irregular Heart Sounds: normal S1 and normal S2; no murmur Extremities: + edema (1+ LE edema ) Gastrointestinal (Abdomen): Inspection/Auscultation: normal bowel sounds; abdomen not distended Percussion/Palpation: abdomen soft; abdomen nontender Musculoskeletal: Extremities: strength 5/5 throughout and + abnormal strength (needs help to roll) Skin: no rashes, warm and dry Neurologic: PERRL, EOMI, accommodation nl, no face palsy, no dysarthria Results & Data Results & Data ([facility]) Vital Signs (Past 12 Hours) Vital Signs Temp Pulse Pulse Resp BP Pulse Ox 01/09/22 15:19 36.7 C 63 15 121/57 L 96 01/09/22 14:52 57 L 01/09/22 12:00 36.6 C 66 19 125/88 95 01/09/22 08:15 36.5 C 67 16 108/68 97 01/09/22 07:15 60 Laboratory Results BMP 01/09/22 08:10 Sodium 128 L Potassium 4.8 Chloride 86 L Carbon Dioxide 34 H BUN 53 H Creatinine 4.86 H* D Glucose 84 Calcium 8.7 Medications Administered Current Inpatient Medications Acetaminophen (Acetaminophen 325 Mg Tab) 650 mg PO Q4H PRN PRN Reason: Pain or Fever Stop: 02/01/22 03:17 Last Admin: 01/05/22 01:12 Dose: 650 mg Documented by: Albuterol (Albuterol Hfa 8 Gm Inhaler) 2 puffs INH Q4 PRN PRN Reason: Wheezing Stop: 02/01/22 11:59 Last Admin: 01/06/22 00:23 Dose: 2 puffs Documented by: Ascorbic Acid (Ascorbic Acid 500 Mg Tab) 250 mg PO DAILY [facility] Stop: 02/01/22 08:59 Last Admin: 01/09/22 09:28 Dose: 250 mg Documented by: Baclofen (Baclofen 10 Mg Tab) 5 mg PO BID YELITZA Stop: 02/01/22 08:59 Last Admin: 01/09/22 09:31 Dose: Not Given Documented by: Carvedilol (Carvedilol 12.5 Mg Tab) 12.5 mg PO BID [facility] Stop: 02/03/22 20:59 Last Admin: 01/09/22 09:32 Dose: 12.5 mg Documented by: Cyanocobalamin (Cyanocobalamin (B-12) 500 Mcg Tablet) 500 mcg PO DAILY YELITZA Stop: 02/01/22 08:59 Last Admin: 01/09/22 09:28 Dose: 500 mcg Documented by: Dextrose (Dextrose 50% 50 Ml Syringe) 25 - 50 ml IV UD PRN; Protocol PRN Reason: Hypoglycemia Protocol Stop: 02/01/22 03:17 Diphenhydramine HCl (Diphenhydramine Capsule 25 Mg Cap) 25 mg PO DAILY PRN PRN Reason: Itching Stop: 02/03/22 15:29 Last Admin: 01/05/22 01:12 Dose: 25 mg Documented by: Ferrous Sulfate (Ferrous Sulfate 325 Mg Tab) 325 mg PO DAILY YELITZA Stop: 02/01/22 08:59 Last Admin: 01/09/22 09:32 Dose: 325 mg Documented by: Folic Acid (Folic Acid 1 Mg Tab) 1 mg PO DAILY [facility] Stop: 02/01/22 08:59 Last Admin: 01/09/22 09:27 Dose: 1 mg Documented by: Glucagon (Glucagon For Inj 1 Mg Vial) 1 mg SQ UD PRN; Protocol PRN Reason: Hypoglycemia Protocol Stop: 02/01/22 03:17 Glucose (Glucose 10 Tabs/Tube) 4 - 8 tabs PO UD PRN; Protocol PRN Reason: Hypoglycemia Protocol Stop: 02/01/22 03:17 Glucose (Glucose 40% Gel 15 Gm Tube) 15 - 30 gm PO UD PRN; Protocol PRN Reason: Hypoglycemia Protocol Stop: 02/01/22 03:17 Promethazine HCl 12.5 mg/ (Sodium Chloride) 50.5 mls @ 202 mls/hr IV Q6H PRN PRN Reason: Nausea And Vomiting Stop: 02/01/22 03:17 Last Infusion: 01/07/22 17:27 Dose: Infused Documented by: Meropenem 500 mg/ Syringe 10 mls @ 2 mls/min IV Q24H YELITZA; Protocol Stop: 01/16/22 04:59 Last Admin: 01/09/22 05:20 Dose: 2 mls/min Documented by: Insulin Aspart (Insulin Aspart Per Unit) 0 units SC ACHS [facility] Stop: 02/01/22 03:17 Last Admin: 01/09/22 12:03 Dose: Not Given Documented by: Levothyroxine Sodium (Levothyroxine Sodium 125 Mcg Tablet) 125 mcg PO DAILYBB YELITZA Stop: 02/01/22 06:29 Last Admin: 01/09/22 05:20 Dose: 125 mcg Documented by: Metoprolol Tartrate (Metoprolol Tartrate 1 Mg/Ml Vial) 5 mg IV Q6 PRN; Protocol PRN Reason: tachycardia Stop: 02/03/22 17:59 Last Admin: 01/04/22 15:57 Dose: 5 mg Documented by: Midodrine (Midodrine Hcl 2.5 Mg Tab) 2.5 mg PO TID@0800,1200,1700 YELITZA Stop: 02/05/22 11:59 Last Admin: 01/09/22 12:06 Dose: 2.5 mg Documented by: Miscellaneous (Carbohydrates For Hypoglycemia ) 15 - 30 gm PO UD PRN PRN Reason: Hypoglycemia Protocol Stop: 02/01/22 03:17 Last Admin: 01/03/22 11:08 Dose: 15 gm Documented by: Miscellaneous Information (Meropenem Consult Active) 1 ea N/A UD PRN PRN Reason: Consult Stop: 02/03/22 12:20 Multivitamins (Multivitamin Tab) 1 tab PO DAILY YELITZA Stop: 02/01/22 08:59 Last Admin: 01/09/22 09:27 Dose: 1 tab Documented by: Oxycodone HCl (Oxycodone Hcl 20 Mg Tabcr (Oxycontin)) 20 mg PO BID [facility] Stop: 01/16/22 08:59 Last Admin: 01/09/22 09:35 Dose: 20 mg Documented by: Oxycodone HCl (Oxycodone Hcl Ir 5 Mg Tab (Immediate Release)) 10 mg PO Q6H PRN PRN Reason: Pain Stop: 01/16/22 03:17 Last Admin: 01/08/22 21:00 Dose: 10 mg Documented by: Pantoprazole Sodium (Pantoprazole 40 Mg Tab) 40 mg PO DAILY PRN PRN Reason: Abdominal Pain Stop: 02/01/22 03:17 Last Admin: 01/09/22 09:27 Dose: 40 mg Documented by: Polyethylene Glycol (Polyethylene (Miralax) 17 Gm Pack) 17 gm PO DAILY PRN PRN Reason: Constipation Stop: 02/02/22 10:56 Last Admin: 01/06/22 19:16 Dose: 17 gm Documented by: Torsemide (Torsemide 10 Mg Tab) 10 mg PO BID17 YELITZA Stop: 02/01/22 16:59 Last Admin: 01/05/22 08:26 Dose: Not Given Documented by: (1) Congestive heart failure Heart failure chronicity: acute Heart failure type: combined systolic and diastolic Qualified Code(s): I50.41 - Acute combined systolic (congestive) and diastolic (congestive) heart failure
[2022-01-10] MEDS: MEROPENEM 500 MG in SYRINGE 0 ML IV SCH (05:43)
[2022-01-10] MEDS: LEVOTHYROXINE SODIUM 125 MCG TABLET PO SCH (05:43)
[2022-01-10 06:53] LABS: Basophils # (auto) 0.03 K/uL (0-0.2); Basophils % (auto) 0.4 %; Eosinophils # (auto) 0.56 K/uL (0-0.5); Eosinophils % (auto) 6.9 %; Hematocrit (blood only) 30.2 % (37-47); Hemoglobin 8.9 g/dL (12.0-16.0); Immature Granulocytes # (auto) 0.03 K/uL (0.00-0.02); Immature Granulocytes % (auto) 0.4 %; Lymphocytes % (auto) 28.2 %; Mean Corpuscular Hemoglobin 25.3 pg (25-34); Mean Corpuscular Hgb Conc 29.5 g/dL (32-36); Mean Corpuscular Volume 85.8 fL (80-100); Mean Platelet Volume 8.9 fL (7.4-10.4); Monocytes # (auto) 0.92 K/uL (0.11-0.59); Monocytes % (auto) 11.3 %; Neutrophils # (auto) 4.32 K/uL (1.4-6.5); Neutrophils % (auto) 52.8 %; Platelet Count 231 K/uL (130-400); RDW Coefficient of Variation 21.4 % (11.5-14.5); RDW Standard Deviation 67.6 fL (36.4-46.3); Red Blood Count 3.52 M/uL (4.2-5.4); White Blood Count 8.16 K/uL (4.8-10.8)
[2022-01-10 07:20] LABS: BUN Creatinine Ratio 10.5 (10-20); Calcium 8.7 mg/dl (8.5-10.1); Est GFR (African American) 8.6 ml/min; Est GFR (Non-African American) 7.5 ml/min; Potassium 4.9 mmol/L (3.5-5.1)
[2022-01-10 07:28] LABS: Anisocytosis Present; Hypochromasia Present
--- NOTE | 2022-01-10 08:06 | Consultation ---
Date of Consultation January 10, 2022 Assessment & Plan (1) Acute on chronic renal failure: Pt scheduled for permcath insertion later this AM. Procedure, risks, benefits, and alternatives discussed with pt at Dr Irby's request. Pt expresses understanding and agreement. Patient was seen, examined, and chart reviewed. Agree with exam and treatment plan of the Vascular PA. I have discussed the risks options and benefits of the procedure with the patient. The patient understands the risks options and benefits and agrees to the procedure. History of Present Illness Reason for Consultation: STACY, need permcath Attending Physician: Alex El MD History of Present Illness 76 yo f with multiple medical problems, including CKD, CHF, COPD, ZEYAD, PAF, DMII, hypothyroidism, cor pulmonale, seen in consultation today for insertion of tunnelled HD catheter for HD initiation. Pt with COVID 19 infection 2 months ago. Pt very sleepy, but responds when asked questions. Pt admits [place], fatigue, edema, generalized weakness. Denies fever, chest pain, SOB at rest, abd pain, N/V, rest pain, other complaints. Allergies Allergy/AdvReac Type Severity Reaction Status Date / Time aspirin Allergy Severe HIVES, SOB Verified 01/02/22 00:45 Iodinated Contrast Media Allergy Severe "CAUSED Verified 01/02/22 00:45 ASTHMA ATTACK" & HIVES ipratropium Allergy Severe SHORTNESS Verified 01/02/22 00:45 OF BREATH metaproterenol [From Alupent] Allergy Severe EYES AND Verified 01/02/22 00:45 FACE SWELLING, SEVERE WHEEZING NSAIDS (Non-Steroidal Allergy Severe Hives Verified 01/02/22 00:45 Anti-Inflamma Penicillins Allergy Severe SOB, HIVES Verified 01/02/22 00:45 sotalol Allergy Severe increased Verified 01/02/22 00:45 breathing problems Sulfa (Sulfonamide Allergy Severe Anaphylaxis Verified 01/02/22 00:45 Antibiotics) tiotropium Allergy Severe SYMPTOMS Verified 01/02/22 00:45 [From Spiriva with GOT [employer]SE [employer]] INSTEAD OF BETTER WITH BREATHING arformoterol Allergy Intermediate TACHYCARDIA Verified 01/02/22 00:45 aspartame Allergy Intermediate HIVES, Verified 01/02/22 00:45 ITCHY ciprofloxacin Allergy Intermediate WHEEZING, Verified 01/02/22 00:45 NAUSEA clarithromycin [From Biaxin] Allergy Intermediate Unknown, ? Verified 01/02/22 00:45 WHEEZING , OR NAUSEA ? Fish Containing Products Allergy Intermediate BODY CAN'T Verified 01/02/22 00:45 ABSORB fish derived Allergy Intermediate Unknown Verified 01/02/22 00:45 latex Allergy Intermediate ITCHY/RASH Verified 01/02/22 00:45 nickel Allergy Intermediate RASH & Verified 01/02/22 00:46 BLISTERS pioglitazone [From Actos] Allergy Intermediate RETAINED Verified 01/02/22 00:46 FLUID povidone Allergy Intermediate BLISTER Verified 01/02/22 00:46 WITH TAPE shellfish derived Allergy Intermediate BODY CAN'T Verified 01/02/22 00:46 ABSORB, "SMELL LIKE A FISH" stevioside [From Stevia] Allergy Intermediate Wheezing Verified 01/02/22 00:46 sucralose Allergy Intermediate Wheezing Verified 01/02/22 00:46 [From Splenda (sucralose)] adhesive Allergy Mild BLISTERS Verified 01/02/22 00:46 WITH TAPE apixaban [From Eliquis] Allergy Mild SEE NOTES Verified 01/02/22 00:46 BELOW banana Allergy Mild "FEELS Verified 01/02/22 00:46 LIKE PEACH FUZZ IN MOUTH" chlorhexidine Allergy Mild BLISTERY Verified 01/02/22 00:46 RASH clindamycin Allergy Mild rash Verified 01/02/22 00:46 doxycycline Allergy Mild rash Verified 01/02/22 00:46 psyllium [From Metamucil] AdvReac Intermediate bloating Verified 01/02/22 00:46 meperidine AdvReac Mild Gastrointestinal Verified 01/02/22 00:46 Upset, N/V metformin [From Riomet] AdvReac Mild DIARRHEA Verified 01/02/22 00:46 WITH MORE THAN 1 A DAY morphine AdvReac Mild Gastrointestinal Verified 01/02/22 00:46 Upset,N/V tapentadol [From Nucynta] AdvReac Mild Nausea and Verified 01/02/22 00:46 vomiting egg AdvReac Verified 01/02/22 00:46 Egg Derived AdvReac Verified 01/02/22 00:46 milk AdvReac Verified 01/04/22 16:19 Milk Containing Products AdvReac Verified 01/04/22 16:19 soy AdvReac Verified 01/04/22 16:19 soybean AdvReac Verified 01/04/22 16:19 Home Medications Medication Instructions Recorded Confirmed Type baclofen 10 mg tablet 5 mg PO BID 09/12/20 01/02/22 History cholecalciferol (vitamin D3) 25 25 mcg PO DAILY 09/12/20 01/02/22 History mcg (1,000 unit) capsule conjugated estrogens 0.625 mg/gram 0.625 mg VAGINAL 3XWK 09/12/20 01/02/22 History vaginal cream (Premarin) cyanocobalamin (vitamin B-12) 500 500 mcg PO DAILY 09/12/20 01/02/22 History mcg tablet dofetilide 250 mcg capsule 250 mcg PO BID 09/12/20 01/02/22 History hydrocortisone 2.5 % topical cream 1 applic MO BID PRN 09/12/20 01/02/22 History with perineal applicator (Proctosol HC) meclizine 25 mg tablet 25 mg PO Q8H PRN 09/12/20 01/02/22 History metformin 500 mg tablet,extended 500 mg PO QPM 09/12/20 01/02/22 History release 24 hr multivitamin 1 tab PO DAILY 09/12/20 01/02/22 History potassium chloride 10 mEq 10 meq PO QAM 09/12/20 01/02/22 History tablet,extended release spironolactone 25 mg tablet 12.5 mg PO 3XWK 09/12/20 01/02/22 History torsemide 10 mg tablet 10 mg PO QAM 09/12/20 01/02/22 History acetaminophen 650 mg 650 mg PO UD PRN 09/28/20 01/02/22 History tablet,extended release (Tylenol 8 Hour) diclofenac sodium 2 % topical 1 packet TOPICAL UD PRN 09/28/20 01/02/22 History solution in packet magnesium 200 mg tablet 600 mg PO DAILY 09/28/20 01/02/22 History ondansetron HCl 4 mg tablet 4 mg PO Q8H PRN 09/28/20 01/02/22 History polyethylene glycol 3350 17 gram 17 g PO QAM PRN 09/28/20 01/02/22 History oral powder packet (Miralax) albuterol sulfate 90 mcg/actuation 2 inh INHALATION Q6H PRN #3 inhaler 11/11/20 01/02/22 Rx aerosol inhaler ferrous fumarate-vitamin C 200 mg 1 tab PO DAILY 03/01/21 01/02/22 History (66 mg iron)-125 mg tablet folic acid 1 mg tablet 1 mg PO DAILY 03/01/21 01/02/22 History nebulizers #1 ea 05/11/21 11/08/21 Rx albuterol sulfate 2.5 mg INHALATION Q4H PRN #180 ml 09/27/21 01/02/22 Rx benzonatate 100 mg capsule 100 mg PO TID PRN 11/08/21 01/02/22 History carvedilol 3.125 mg tablet 9.375 mg PO BID #180 tab 11/20/21 01/02/22 Rx levothyroxine 125 mcg tablet 125 mcg PO DAILYBB #30 tab 11/20/21 01/02/22 Rx (Synthroid) mupirocin 2 % topical ointment 1 applic TOPICAL BID PRN 11/28/21 01/02/22 History oxycodone 10 mg tablet 10 mg PO Q6H PRN 3 Days #10 tab 12/07/21 01/02/22 Rx oxycodone 20 mg tablet,crush 20 mg PO BID 01/02/22 01/02/22 History resistant,extended release 12 hr (OxyContin) pantoprazole 40 mg tablet,delayed 40 mg PO DAILY PRN 01/02/22 01/02/22 History release Patient History Medical History Asthma USED RESCUE INHALER LAST WEEKEND Back problem 3 DISCS PUSHING ON SCIATIC NERVE PER PT>CAUSES R LEG NUMBNESS AT TIMES LYING FLAT FOR EXTENDED TIME WILL CAUSE LEGS TO JUMP Chronic anticoagulation Chronic diastolic CHF (congestive heart failure) Chronic low blood pressure Chronic respiratory failure with hypoxia CKD (chronic kidney disease), stage III COPD (chronic obstructive pulmonary disease) Cor pulmonale, chronic Cushingoid side effect of steroids DM type 2 (diabetes mellitus, type 2) Dyslipidemia History of Meniere's disease History of TIA (transient ischemic attack) ? NEVER CONFIRMED (PT DOES NOT THINK SHE HAD TIA) Hx of vertigo Hypothyroidism Impingement syndrome of both shoulders Long COVID ZEYAD (obstructive sleep apnea) WEARS 3-4L CONT. Osteoarthritis Oxygen dependent 3-4L CONT. 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 Brother Stroke Sister Diabetes Sister Diabetes Son Diabetes Social History Smoking Status: Never smoker Second Hand Exposure: No; Hx Alcohol Use: No Hx Substance Use: No Preferred Language: Frisian Communication Ability: Effective Director Talent Required: No Beliefs That Will Affect Care: None marital status: Current Living Situation: Family Current Living Situation Comment: lives with son How many Children do You have: 3 Other Information That Helps Us Care for You: No Feels Safe at Home: Yes Safety Concerns: Feels Safe At This Time Assistive Devices: Oxygen - Continuous Review of Systems Review of Systems: All systems reviewed & are unremarkable except as noted in HPI & below Physical Exam Constitutional: WD/WN, vitals as above + morbidly obese and + cushingoid; not in distress ENMT: Ears: no hearing impairment Neck: trachea midline (short, thick neck) Respiratory: normal respiratory effort Auscultation: + diminished lung sounds and + crackles Cardiovascular: Rate/Rhythm: regular rate and regular rhythm Vessels: posterior tibial pulses present, dorsalis pedis pulses present and radial pulses present; + abnormal peripheral pulses Extremities: normal capillary refill and + edema Gastrointestinal (Abdomen): Inspection/Auscultation: abdomen normal to inspection and normal bowel sounds Percussion/Palpation: abdomen soft; abdomen nontender Musculoskeletal: no cyanosis or clubbing, extremities motor strength 5/5 Skin: no rashes, warm and dry Neurologic: moves all extremities and awake (but falls asleep easily); no focal motor deficits and not confused Psychiatric: Orientation: oriented x 3 Eye Contact: + fair eye contact Affect: + blunted affect Results & Data ([facility]) Vital Signs (Past 12 Hours) Vital Signs Temp Pulse Pulse Resp BP Pulse Ox 01/10/22 07:31 36.6 C 61 15 114/52 L 96 01/10/22 05:28 36.8 C 83 19 121/56 L 91 01/10/22 03:00 72 14 91 01/09/22 23:55 58 L 01/09/22 23:27 36.4 C L 64 16 109/70 96 01/09/22 23:04 70 19 95
[2022-01-10] MEDS ORDERED: ceFAZolin 1000MG 1,000 MG/7.5 ML SYR IV ONE (08:25)
[2022-01-10] MEDS: INSULIN ASPART PER UNIT SC SCH ×4 (08:43→20:08)
--- NOTE | 2022-01-10 09:22 | Nephrology Progress Note ---
Date of Service January 10, 2022 Assessment & Plan Admission and Anticipated Discharge Date Admission Date: January 02, 2022 Subjective Assessment & Plan (1) Acute on chronic renal failure: Plan: after several days of AF w/ RVR and hypotension now w/ ischemic ATN d/t this and cardiorenal syndrome . Creat getting worse and fluid retention getting worse. holding diuretics since 01/03. almost impossible to assess true fluid status in her case. Also BP low But ?? accuracy. Baseline creatinine is somewhat labile but runs generally to high ones. Her creatinine at d/c on 12/25 was 1.4; was 2 on admission and now > 3.74 today. urine output very low now for many days. With such low urine output days she will get into major trouble. No urine even with 100 iv lasix Rec: 1 Matos and accurate urine --Severe oliguria- UO 150 ml. Despite 100 iv lasix 2 Accurate BP needed if possible. 3 No urine with lasix 100 iv.I discussed and she said she will do dialysis. later this AM getting tunnelled cath. Even though creat dont seem that high in the 5's but with uo less than 100 ml for many days she does have lot of fluid retention and has severe ARF and will need dialysis. Dialysis today for 2.5 hrs and take 1 kilo off. NO meds. Subjective Seems more somnolent. On Bipap also at times. Urine low. Massive edema. Review of Systems Review of Systems: All systems reviewed & are unremarkable except as noted in Subjective Physical Exam Constitutional: well developed, well nourished, + obese, cooperative (but dosing off periodically) and + lethargic; no acute distress Eyes: EOM intact bilaterally ENMT: Ears: no external ear abnormality Nose: no external nose abnormality Mouth: + dry oral mucous membranes Neck: no nuchal rigidity Respiratory: normal respiratory effort and + paradoxical thoraco-abdominal movement Auscultation: + diminished lung sounds, + crackles (R base) and + wheezes (R insp) Cardiovascular: Rate/Rhythm: regular rate and + irregularly irregular Extremities: + edema (4+ BLE pretibial and hips/ abd wall) Gastrointestinal (Abdomen): Inspection/Auscultation: normal bowel sounds Percussion/Palpation: abdomen soft; abdomen nontender Musculoskeletal: Extremities: + abnormal strength (needs help to roll) Skin: no rashes, warm and dry Neurologic: frequent myoclonic jerks; fluent speech; drops off to sleep fast Psychiatric: Orientation: oriented x 3 Results & Data ([facility]) Vital Signs (Past 12 Hours) Vital Signs Temp Pulse Pulse Resp BP Pulse Ox 01/10/22 07:31 36.6 C 61 15 114/52 L 96 01/10/22 05:28 36.8 C 83 19 121/56 L 91 01/10/22 03:00 72 14 91 01/09/22 23:55 58 L 01/09/22 23:27 36.4 C L 64 16 109/70 96 01/09/22 23:04 70 19 95
[2022-01-10] MEDS: PANTOprazole 40 MG TAB PO PRN (09:23)
[2022-01-10] MEDS: BACLOFEN 10 MG TAB PO SCH ×2 (09:23→20:10)
[2022-01-10] MEDS: MIDODRINE HCL 2.5 MG TAB PO SCH ×4 (09:23→18:12)
[2022-01-10] MEDS ORDERED: SODIUM CHLORIDE 0.9% 1000ML 1,000 ML IV PRN (11:29)
--- NOTE | 2022-01-10 11:35 | Anesthesiology Consultation ---
Date of Service January 10, 2022 Assessment & Plan (1) Encounter for pre-operative examination: Chart Review Chart Review: Acceptable Risk for Surgery and Patient NOT seen in Pre Admission Testing Consults Requested none History Surgery Operation Date: 01/10/22 10:30 Proposed Procedures p Perm Catheter Insertion - Byron Irby MD Height/Weight Height: 5 ft 5 in Weight: 133.2 kg Allergies Allergy/AdvReac Type Severity Reaction Status Date / Time aspirin Allergy Severe HIVES, SOB Verified 01/02/22 00:45 Iodinated Contrast Media Allergy Severe "CAUSED Verified 01/02/22 00:45 ASTHMA ATTACK" & HIVES ipratropium Allergy Severe SHORTNESS Verified 01/02/22 00:45 OF BREATH metaproterenol [From Alupent] Allergy Severe EYES AND Verified 01/02/22 00:45 FACE SWELLING, SEVERE WHEEZING NSAIDS (Non-Steroidal Allergy Severe Hives Verified 01/02/22 00:45 Anti-Inflamma Penicillins Allergy Severe SOB, HIVES Verified 01/02/22 00:45 sotalol Allergy Severe increased Verified 01/02/22 00:45 breathing problems Sulfa (Sulfonamide Allergy Severe Anaphylaxis Verified 01/02/22 00:45 Antibiotics) tiotropium Allergy Severe SYMPTOMS Verified 01/02/22 00:45 [From Spiriva with GOT WORSE [employer]er] INSTEAD OF BETTER WITH BREATHING arformoterol Allergy Intermediate TACHYCARDIA Verified 01/02/22 00:45 aspartame Allergy Intermediate HIVES, Verified 01/02/22 00:45 ITCHY ciprofloxacin Allergy Intermediate WHEEZING, Verified 01/02/22 00:45 NAUSEA clarithromycin [From Biaxin] Allergy Intermediate Unknown, ? Verified 01/02/22 00:45 WHEEZING , OR NAUSEA ? Fish Containing Products Allergy Intermediate BODY CAN'T Verified 01/02/22 00:45 ABSORB fish derived Allergy Intermediate Unknown Verified 01/02/22 00:45 latex Allergy Intermediate ITCHY/RASH Verified 01/02/22 00:45 nickel Allergy Intermediate RASH & Verified 01/02/22 00:46 BLISTERS pioglitazone [From Actos] Allergy Intermediate RETAINED Verified 01/02/22 00:46 FLUID povidone Allergy Intermediate BLISTER Verified 01/02/22 00:46 WITH TAPE shellfish derived Allergy Intermediate BODY CAN'T Verified 01/02/22 00:46 ABSORB, "SMELL LIKE A FISH" stevioside [From Stevia] Allergy Intermediate Wheezing Verified 01/02/22 00:46 sucralose Allergy Intermediate Wheezing Verified 01/02/22 00:46 [From Splenda (sucralose)] adhesive Allergy Mild BLISTERS Verified 01/02/22 00:46 WITH TAPE apixaban [From Eliquis] Allergy Mild SEE NOTES Verified 01/02/22 00:46 BELOW banana Allergy Mild "FEELS Verified 01/02/22 00:46 LIKE PEACH FUZZ IN MOUTH" chlorhexidine Allergy Mild BLISTERY Verified 01/02/22 00:46 RASH clindamycin Allergy Mild rash Verified 01/02/22 00:46 doxycycline Allergy Mild rash Verified 01/02/22 00:46 psyllium [From Metamucil] AdvReac Intermediate bloating Verified 01/02/22 00:46 meperidine AdvReac Mild Gastrointestinal Verified 01/02/22 00:46 Upset, N/V metformin [From Riomet] AdvReac Mild DIARRHEA Verified 01/02/22 00:46 WITH MORE THAN 1 A DAY morphine AdvReac Mild Gastrointestinal Verified 01/02/22 00:46 Upset,N/V tapentadol [From Nucynta] AdvReac Mild Nausea and Verified 01/02/22 00:46 vomiting egg AdvReac Verified 01/02/22 00:46 Egg Derived AdvReac Verified 01/02/22 00:46 milk AdvReac Verified 01/04/22 16:19 Milk Containing Products AdvReac Verified 01/04/22 16:19 soy AdvReac Verified 01/04/22 16:19 soybean AdvReac Verified 01/04/22 16:19 Medications Home Medications Medication Instructions Recorded Confirmed Last Taken baclofen 10 mg tablet 5 mg PO BID 09/12/20 01/02/22 11/28/21 cholecalciferol (vitamin D3) 25 25 mcg PO DAILY 09/12/20 01/02/22 11/28/21 mcg (1,000 unit) capsule conjugated estrogens 0.625 mg/gram 0.625 mg VAGINAL 3XWK 09/12/20 01/02/22 11/27/21 vaginal cream (Premarin) cyanocobalamin (vitamin B-12) 500 500 mcg PO DAILY 09/12/20 01/02/22 11/28/21 mcg tablet dofetilide 250 mcg capsule 250 mcg PO BID 11/01/02/22 11/28/21 hydrocortisone 2.5 % topical cream 1 applic [place] BID PRN 09/12/20 01/02/22 Unknown with perineal applicator (Proctosol HC) meclizine 25 mg tablet 25 mg PO Q8H PRN 09/12/20 01/02/22 Unknown metformin 500 mg tablet,extended 500 mg PO QPM 09/12/20 01/02/22 11/28/21 release 24 hr multivitamin 1 tab PO DAILY 09/12/20 01/02/22 11/28/21 potassium chloride 10 mEq 10 meq PO QAM 09/12/20 01/02/22 11/28/21 tablet,extended release spironolactone 25 mg tablet 12.5 mg PO 3XWK 09/12/20 01/02/22 11/27/21 torsemide 10 mg tablet 10 mg PO QAM 09/12/20 01/02/22 11/28/21 acetaminophen 650 mg 650 mg PO UD PRN 09/28/20 01/02/22 Unknown tablet,extended release (Tylenol 8 Hour) diclofenac sodium 2 % topical 1 packet TOPICAL UD PRN 09/28/20 01/02/22 Unknown solution in packet magnesium 200 mg tablet 600 mg PO DAILY 09/28/20 01/02/22 11/28/21 ondansetron HCl 4 mg tablet 4 mg PO Q8H PRN 09/28/20 01/02/22 Unknown polyethylene glycol 3350 17 gram 17 g PO QAM PRN 09/28/20 01/02/22 Unknown oral powder packet (Miralax) albuterol sulfate 90 mcg/actuation 2 inh INHALATION Q6H PRN #3 inhaler 11/11/20 01/02/22 Unknown aerosol inhaler ferrous fumarate-vitamin C 200 mg 1 tab PO DAILY 03/01/21 01/02/22 11/28/21 (66 mg iron)-125 mg tablet folic acid 1 mg tablet 1 mg PO DAILY 03/01/21 01/02/22 11/28/21 nebulizers #1 ea 05/11/21 11/08/21 Unknown albuterol sulfate 2.5 mg INHALATION Q4H PRN #180 ml 09/27/21 01/02/22 Unknown benzonatate 100 mg capsule 100 mg PO TID PRN 11/08/21 01/02/22 Unknown carvedilol 3.125 mg tablet 9.375 mg PO BID #180 tab 11/20/21 01/02/22 11/28/21 levothyroxine 125 mcg tablet 125 mcg PO DAILYBB #30 tab 11/20/21 01/02/22 11/28/21 (Synthroid) mupirocin 2 % topical ointment 1 applic TOPICAL BID PRN 11/28/21 01/02/22 Unknown oxycodone 10 mg tablet 10 mg PO Q6H PRN 3 Days #10 tab 12/07/21 01/02/22 Unknown oxycodone 20 mg tablet,crush 20 mg PO BID 01/02/22 01/02/22 Unknown resistant,extended release 12 hr (OxyContin) pantoprazole 40 mg tablet,delayed 40 mg PO DAILY PRN 01/02/22 01/02/22 Unknown release Active Medications Generic Name Dose Route Start Last Admin Trade Name Freq PRN Reason Stop Dose Admin Acetaminophen 650 mg 01/02/22 03:18 01/05/22 01:12 Acetaminophen 325 Mg Tab PO 02/01/22 03:17 650 mg Q4H PRN Administration Pain or Fever Albuterol 2 puffs 01/02/22 11:26 01/06/22 00:23 Albuterol Hfa 8 Gm Inhaler INH 02/01/22 11:59 2 puffs Q4 PRN Administration Wheezing Ascorbic Acid 250 mg 01/02/22 09:00 01/09/22 09:28 Ascorbic Acid 500 Mg Tab PO 02/01/22 08:59 250 mg DAILY YELITZA Administration Baclofen 5 mg 01/02/22 09:00 01/10/22 09:23 Baclofen 10 Mg Tab PO 02/01/22 08:59 Not Given BID YELITZA Carvedilol 12.5 mg 01/04/22 21:00 01/09/22 21:19 Carvedilol 12.5 Mg Tab PO 02/03/22 20:59 Not Given BID YELITZA Cyanocobalamin 500 mcg 01/02/22 09:00 01/09/22 09:28 Cyanocobalamin (B-12) 500 Mcg Tablet PO 02/01/22 08:59 500 mcg DAILY YELITZA Administration Diphenhydramine HCl 25 mg 01/04/22 15:30 01/05/22 01:12 Diphenhydramine Capsule 25 Mg Cap PO 02/03/22 15:29 25 mg DAILY PRN Administration Itching Ferrous Sulfate 325 mg 01/02/22 09:00 01/09/22 09:32 Ferrous Sulfate 325 Mg Tab PO 02/01/22 08:59 325 mg DAILY YELITZA Administration Folic Acid 1 mg 01/02/22 09:00 01/09/22 09:27 Folic Acid 1 Mg Tab PO 02/01/22 08:59 1 mg DAILY YELITZA Administration Promethazine HCl 12.5 mg/ 50.5 mls @ 202 mls/hr 01/02/22 03:18 01/07/22 17:27 Sodium Chloride IV 02/01/22 03:17 Infused Q6H PRN Infusion Nausea And Vomiting Meropenem 500 mg/ Syringe 10 mls @ 2 mls/min 01/09/22 05:00 01/10/22 05:43 IV 01/16/22 04:59 2 mls/min Q24H YELITZA Administration Protocol Insulin Aspart 0 units 01/02/22 03:18 01/10/22 08:43 Insulin Aspart Per Unit SC 02/01/22 03:17 Not Given ACHS YELITZA Levothyroxine Sodium 125 mcg 01/02/22 06:30 01/10/22 05:43 Levothyroxine Sodium 125 Mcg Tablet PO 02/01/22 06:29 125 mcg DAILYBB YELITZA Administration Metoprolol Tartrate 5 mg 01/04/22 15:31 01/04/22 15:57 Metoprolol Tartrate 1 Mg/Ml Vial IV 02/03/22 17:59 5 mg Q6 PRN Administration tachycardia Protocol Midodrine 2.5 mg 01/06/22 12:00 01/10/22 09:33 Midodrine Hcl 2.5 Mg Tab PO 02/05/22 11:59 Not Given TID@0800,1200,1700 YELITZA Miscellaneous 15 - 30 gm 01/02/22 03:18 01/03/22 11:08 Carbohydrates For Hypoglycemia PO 02/01/22 03:17 15 gm UD PRN Administration Hypoglycemia Protocol Multivitamins 1 tab 01/02/22 09:00 01/09/22 09:27 Multivitamin Tab PO 02/01/22 08:59 1 tab DAILY YELITZA Administration Oxycodone HCl 20 mg 01/02/22 09:00 01/09/22 21:18 Oxycodone Hcl 20 Mg Tabcr (Oxycontin) PO 01/16/22 08:59 20 mg BID YELITZA Administration Oxycodone HCl 10 mg 01/02/22 03:18 01/08/22 21:00 Oxycodone Hcl Ir 5 Mg Tab (Immediate Release) PO 01/16/22 03:17 10 mg Q6H PRN Administration Pain Pantoprazole Sodium 40 mg 01/02/22 03:18 01/09/22 09:27 Pantoprazole 40 Mg Tab PO 02/01/22 03:17 40 mg DAILY PRN Administration Abdominal Pain Polyethylene Glycol 17 gm 01/03/22 10:57 01/06/22 19:16 Polyethylene (Miralax) 17 Gm Pack PO 02/02/22 10:56 17 gm DAILY PRN Administration Constipation Torsemide 10 mg 01/02/22 17:00 01/05/22 08:26 Torsemide 10 Mg Tab PO 02/01/22 16:59 Not Given BID17 YELITZA NPO Date Last Intake of Fluids: 01/09/22 Time Last Intake of Fluids: 21:00 Date Last Intake of Solids: 01/09/22 Time Last Intake of Solids: 21:00 Past Medical History Medical History Asthma USED RESCUE INHALER LAST WEEKEND Back problem 3 DISCS PUSHING ON SCIATIC NERVE PER PT>CAUSES R LEG NUMBNESS AT TIMES LYING FLAT FOR EXTENDED TIME WILL CAUSE LEGS TO JUMP Chronic anticoagulation Chronic diastolic CHF (congestive heart failure) Chronic low blood pressure Chronic respiratory failure with hypoxia CKD (chronic kidney disease), stage III COPD (chronic obstructive pulmonary disease) Cor pulmonale, chronic Cushingoid side effect of steroids DM type 2 (diabetes mellitus, type 2) Dyslipidemia History of Meniere's disease History of TIA (transient ischemic attack) ? NEVER CONFIRMED (PT DOES NOT THINK SHE HAD TIA) Hx of vertigo Hypothyroidism Impingement syndrome of both shoulders Long COVID ZEYAD (obstructive sleep apnea) WEARS 3-4L CONT. Osteoarthritis Oxygen dependent 3-4L CONT. NC Paroxysmal atrial fibrillation REASON FOR XARELTO Reversed peristalsis Past Family History Family History Father Lung cancer Asthma Mother Diabetes Heart disease Brother Colon cancer Family history of colonic polyps Daughter No problems noted. Brother Stroke Sister Diabetes Sister Diabetes Son Diabetes Past Surgical History Surgical History Family history of reaction to anesthesia SISTER-LOW BLOOD PRESSURE H/O arthroscopic knee surgery RIGHT History of anesthesia reaction BLOOD PRESSURE DROPPED WITH COLONOSCOPY AND GALLBLADDER SURGERY AND SENSITIVE GAG REFLEX History of appendectomy History of cataract surgery RT/LEFT History of cholecystectomy History of colonoscopy History of hysterectomy Social History Smoking Status: Never smoker Hx Alcohol Use: No Hx Substance Use: No substance use type: prescription drug Physical Exam Vital Signs Last Vital Signs Temp 36.6 C 01/10/22 07:31 Pulse 62 01/10/22 10:09 Resp 15 01/10/22 07:31 BP 114/52 L 01/10/22 07:31 Pulse Ox 96 01/10/22 07:31 Testing Laboratory Results 01/10/22 06:36 01/10/22 06:36 PT 10.6 Seconds (9.0-12.0) 01/01/22 22:22 INR 1.0 (0.9-1.1) 01/01/22 22:22 APTT 24.2 Seconds (21.0-31.0) 01/01/22 22:22 Urine Color Yellow 01/02/22 04:29 Urine Appearance Clear (Clear) 01/02/22 04:29 Urine pH 5.0 (4.5-7.5) 01/02/22 04:29 Ur Specific [place] 1.006 (1.000-1.030) 01/02/22 04:29 Urine Protein Negative (Negative) 01/02/22 04:29 Urine Glucose (UA) Negative (Negative) 01/02/22 04:29 Urine Ketones Negative (Negative) 01/02/22 04:29 Urine Nitrite Positive (Negative) A 01/02/22 04:29 Ur Leukocyte Esterase 1+ (Negative) H 01/02/22 04:29 Urine WBC (Auto) 10-30 /hpf (0-5) H 01/02/22 04:29 Urine RBC (Auto) 0-4 /hpf (0-4) 01/02/22 04:29 U Hyaline Cast (Auto) 1-5 /lpf (0-5) 01/02/22 04:29 U Epithel Cells (Auto) 0-5 /lpf (0-5) 01/02/22 04:29 Urine Bacteria (Auto) 3+ (Negative) H 01/02/22 04:29 01/05/22 16:48 Aerobic Blood Culture - Preliminary Blood No growth in Aerobic bottle after 48 hours. Anaerobic Blood Culture - Final 01/05/22 16:36 Aerobic Blood Culture - Preliminary Blood No growth in Aerobic bottle after 48 hours. Anaerobic Blood Culture - Final 01/02/22 04:29 Urine Culture - Final Urine,Clean Catch Escherichia coli ESBL 01/10/22 01/10/22 11:29 07:17 POC Glucose 101 H 101 H
[2022-01-10] MEDS: SODIUM CHLORIDE 0.9% 500 ML IV SCH ×2 (11:50→16:43)
[2022-01-10] MEDS ORDERED: HEPARIN SOD (PORCINE) 5,000 UNITS/ML VIAL ONE (12:00)
[2022-01-10] MEDS: FOLIC ACID 1 MG TAB PO SCH (12:11)
[2022-01-10] MEDS ORDERED: ePHEDrine sulfate 50 MG/ML AMP IV PRN (12:11)
[2022-01-10] MEDS: FERROUS SULFATE 325 MG TAB PO SCH (12:11)
[2022-01-10] MEDS: carvediloL 12.5 MG TAB PO SCH ×2 (12:11→20:09)
[2022-01-10] MEDS: ASCORBIC ACID 500 MG TAB PO SCH (12:11)
[2022-01-10] MEDS: CYANOCOBALAMIN (B-12) 500 MCG TABLET PO SCH (12:11)
[2022-01-10] MEDS ORDERED: ATROPINE SULFATE 0.1 MG/ML 10ML SYR IV PRN (12:11)
[2022-01-10] MEDS: MULTIVITAMIN TAB PO SCH (12:12)
[2022-01-10] MEDS: oxyCODONE HCL 20 MG TABCR (OxyCONTIN) PO SCH ×2 (12:12→20:08)
[2022-01-10] MEDS ORDERED: LIDOCAINE 1% LOCAL 20 ML VIAL INJ ONE (12:48)
--- NOTE | 2022-01-10 12:50 | Post Operative Brief Note ---
Immediate Post Op Note v1 Date of Surgery January 10, 2022 Pre & Post Diagnosis Operation Date: 01/10/22 10:30 Pre-Op Diagnosis: acute kidney injury Post-Op Diagnosis: acute kidney injury I identified the patient and participated in the time-out.: Yes Procedure Operation Date: 01/10/22 10:30 Actual Procedures p Insertion of Perm Cath, Right Internal Jugular Approach, Ultrasound Localization of Right Internal Jugular Vein, Fluroscopy for Positioning(Right) - Byron Irby MD Surgeon Byron Irby MD Scientific Editor MD Marlene Estimated Blood Loss 5 Findings Consistent with Post-Op Diagnosis Anesthesia Type MAC Complications none Disposition Disposition: Recovery Room
--- NOTE | 2022-01-10 12:58 | Procedure Note ---
Angiogram Post Procedure Fluoroscopy Time (minutes): 0.2 Radiation (mGy): 2 Contrast: 0 cc Post Operative Report Pre & Post Diagnosis Operation Date: 01/10/22 10:30 Pre-Op Diagnosis: acute kidney injury Post-Op Diagnosis: acute kidney injury I identified the patient and participated in the time-out.: Yes Procedure Operation Date: 01/10/22 10:30 Actual Procedures p Insertion of Perm Cath, Right Internal Jugular Approach, Ultrasound Localization of Right Internal Jugular Vein, Fluroscopy for Positioning(Right) - Byron Irby MD Surgeon Byron Irby MD [employer] Care Technician MD Marlene Estimated Blood Loss 5 Findings Consistent with Post-Op Diagnosis Specimens none Anesthesia Type MAC Complications none Disposition Accompanied Patient To Recovery: No Disposition: Recovery Room Indications This is a 76 year old female with kidney failure in need of hemodialysis access. She presents for tunneled line placement. Description of Procedure Patient was taken to the angio suite and placed in the supine position. The right side of the neck and chest wall were prepped and draped in a sterile manner. A team time out was performed. Local anesthesia was then administered to the appropriate areas of the neck and chest wall. Ultrasound was then used to locate the right internal jugular vein. The vein compressed easily, had no filing defects, and was patent. The vein was then punctured under direct ultrasound imaging. A guidewire was then passed centrally under fluoroscopic imaging. A stab wound was then made in the anterior chest wall and a 19 cm permcath was passed from the stab wound on the chest wall to the puncture site on the neck. The puncture site was then dilated till the 14Fr peel away sheath was inserted. The permcath was then inserted through the sheath to a central position in the distal superior vena cava. The peel away sheath was then removed. The catheter was then sutured in place using nylon sutures. The puncture was then closed using a 4-0 Vicryl subcuticular suture. Dermabond was used for a dressing on the puncture site. Both ports aspirated and flushed easily and were then packed with heparin. A sterile dressing was applied to the catheter. The patient left the angio suite in good condition and tolerated the procedure well. Dr. Irby was present and scrubbed for the entirety of the procedure. I attest to the content of the Intraoperative Record and any orders documented therein. Any exceptions are noted below.
--- NOTE | 2022-01-10 13:30 | Anesthesiology Progress Note ---
Date of Service January 10, 2022 Anesthesia Post Procedure Vital Signs Vital Signs: Temp Pulse Pulse Pulse Resp BP BP 01/10/22 13:10 62 18 96/61 L 01/10/22 13:02 36.1 C L 65 14 96/75 L 01/10/22 11:30 36.2 C L 69 9 L 118/80 01/10/22 10:09 62 01/10/22 07:31 36.6 C 61 15 114/52 L 01/10/22 05:28 36.8 C 83 19 121/56 L 01/10/22 03:00 72 14 01/09/22 23:55 58 L 01/09/22 23:27 36.4 C L 64 16 109/70 01/09/22 23:04 70 19 01/09/22 19:55 36.7 C 66 16 100/51 L 01/09/22 15:19 36.7 C 63 15 121/57 L 01/09/22 14:52 57 L Pulse Ox 01/10/22 13:10 99 01/10/22 13:02 98 01/10/22 11:30 98 01/10/22 10:09 01/10/22 07:31 96 01/10/22 05:28 91 01/10/22 03:00 91 01/09/22 23:55 01/09/22 23:27 96 01/09/22 23:04 95 01/09/22 19:55 98 01/09/22 15:19 96 01/09/22 14:52 Pain Intensity Lower Back: Pain Intensity: 8 Transfer of Care Handoff Completed per policy Notes Mental Status: alert / awake / arousable and participated in evaluation Nausea / Vomiting: adequately controlled Pain: adequately controlled Airway Patency, RR, SpO2: stable & adequate BP & HR: stable & adequate Hydration State: stable & adequate Anesthetic Complications: no major complications apparent and Pt Satisfied with anesthetic care Notes: no medications given... monitored during case only due to preexisting somnolence
--- NOTE | 2022-01-10 13:48 | Electrocardiogram Report ---
Test Reason : Blood Pressure : / mmHG Vent. Rate : 060 BPM Atrial Rate : 060 BPM P-R Int : 222 ms QRS Dur : 074 ms QT Int : 454 ms P-R-T Axes : 090 -46 044 degrees QTc Int : 454 ms Sinus rhythm with 1st degree A-V block Left axis deviation Low voltage QRS Incomplete right bundle branch block Abnormal ECG When compared with ECG of 03-JAN-2022 12:09, Sinus rhythm has replaced Atrial fibrillation Vent. rate has decreased BY 71 BPM Nonspecific T wave abnormality, improved in Inferior leads Nonspecific T wave abnormality, improved in Anterolateral leads Confirmed by Nick Epperson ([id number]) on 01/10/2022 1:48:12 PM Referred By: REFERRED SELF Confirmed By:Primitivo Epperson
--- NOTE | 2022-01-10 17:37 | Hospitalist Progress Note ---
Date of Service January 10, 2022 Assessment & Plan (1) History of noncompliance with medical treatment: (2) Congestive heart failure: (3) Leg edema: Plan: Patient is a 76 yr female with H/O DM II, hypothyroidism, hyperlipidemia, COPD, on chronic oxygen baseline 3 liters oxygen, sleep apnea not on CPAP - intolerant as per the patient, paroxysmal atrial fibrillation, cor pulmonale, chronic essential hypertension, morbid obesity, irritable bowel syndrome, stage III c hronic kidney disease, mixed stress and urge incontinence, chronic pain syndrome, TIA. Patient presented 01/01 to our ED with complaint of progressive fluid retention along with worsening shortness of breath, denies fever and aspiration, reports compliance with home medication. Of note, patient was recently discharged from hospital after being treated for respiratory failure secondary to COPD exacerbation secondary to COVID-19 infection to rehab and then transitioned to home 1 week ago [employer] MANAGEMENT [employer]IST. Acute Metabolic Encephalopathy -POA Likely multifactorial: Hypercarbia,Uremia, Hyponatremia H/O COPD and sleep apnea and intolerance to CPAP and/or BiPAP Chronic Oxygen dependency: 3L at rest and 4L with activity at baseline Patient prefers no ventilation BiPAP as needed Dialysis as per Nephrology Consider CT head if needed Titrate Oxygen to keep Sats 88-92% given H/O COPD Acute on chronic heart failure with preserved ejection fraction Possible cardiorenal syndrome Patient reports increasing bilateral lower extremity swelling prior to arrival --11/29 ECHO:Ejection fraction greater than 70%, hyperdynamic left ventricle with normal left ventricle size and normal left ventricular wall thickness. ? Med compliance Appreciate Cardiology, Nephrology Input Pt did not diuresis with IV Lasix . Continue with strict I's and O's, daily weights, fluid restriction Midodrine added for hypotension Volume status to be addressed with dialysis Permanent Catheter for HD placed on 01/10/22 Dialysis as per Nephrology Concern for HCAP UTI / CAUTI : Pt w/ bob at home (per patient after her last discharge), urine Cx +ve for ESBL UTI CXR: Concern for developing fibrosis versus infectious process CTAP and CT chest: Suggestive of post inflammatory fibrosis, urinary bladder wall thickening with perivesicular stranding/correlate with urinalysis. Patient started on ertapenem 01/02-->Meropenem 01/04. 01/04 MRSA negative. Plan to complete 10 day course of antibiotics STACY with CKD Baseline creatinine around 1.3-1.5 Cr 5.26 Appreciate nephrology recommendation Started on Dialysis Sleep apnea CPAP intolerant DM II ISS for now Monitor BGs Hypothyroidism Continue Levothyroxine H/O A. fib Afib RVR: Continue Coreg Not on anticoagulation, Xarelto was stopped in past because of history of hematochezia Continue to monitor Appreciate cardiology input and recommendation COPD Sleep apnea Does not use any CPAP COPD remains stable Patient has declined Incruse Ellipta in the past, continue with home inhalers BiPAP as needed Chronic pain Patient reports multiple joint pains Continue with home medications. Anemia of chronic disease: Baseline hemoglobin 7-8 Monitor CBC Continue with iron supplementation DVT Px: SCDs Re: hx of GIB Code Status Full code Disposition: PT/OT prior to discharge Prognosis is guarded Admission and Anticipated Discharge Date Admission Date: January 02, 2022 Subjective Patient is seen and examined at bedside Had permanent catheter placement today Planned for dialysis today Drowsy during my encounter Reports having back pain, dyspnea Offers no other complaints Review of Systems Review of Systems: All systems reviewed & are unremarkable except as noted in Subjective Physical Exam Physical Exam: Physical Exam: Vitals signs as noted above General Appearance:Morbidly Obese, no apparent distress, ill appearing Head: normocephalic, Atraumatic Eyes: normal inspection, EOMI Neck: supple, Trachea midline Respiratory/Chest: Decreased breath sounds, basal crackles, No accessory muscle use Cardiovascular: S1, S2, No murmur Abdomen/GI:Soft, Non tender, Bowel sounds present Extremities/Musculoskeletal:normal inspection, B/L LE edema Neurologic/Psych:grossly no focal neurological deficits, + Drowsy Skin: normal color, warm Results & Data Results & Data ([facility]) Vital Signs (Past 12 Hours) Vital Signs Temp Pulse Pulse Pulse Resp BP BP 01/10/22 17:15 71 98/57 L 01/10/22 17:00 69 98/61 L 01/10/22 16:45 67 111/62 01/10/22 16:30 66 147/81 H 01/10/22 16:15 66 122/64 01/10/22 16:00 65 101/53 L 01/10/22 15:45 68 100/54 L 01/10/22 15:30 71 95/55 L 01/10/22 15:15 70 87/65 L 01/10/22 15:06 72 98/60 L 01/10/22 15:00 36.5 C 74 01/10/22 14:56 62 01/10/22 14:02 36.1 C L 64 14 101/56 L 01/10/22 13:30 62 14 01/10/22 13:20 63 15 01/10/22 13:10 62 18 01/10/22 13:02 36.1 C L 65 14 01/10/22 11:30 36.2 C L 69 9 L 01/10/22 10:09 62 01/10/22 07:31 36.6 C 61 15 114/52 L BP Pulse Ox 01/10/22 17:15 01/10/22 17:00 01/10/22 16:45 01/10/22 16:30 01/10/22 16:15 01/10/22 16:00 01/10/22 15:45 01/10/22 15:30 01/10/22 15:15 01/10/22 15:06 01/10/22 15:00 01/10/22 14:56 01/10/22 14:02 95 01/10/22 13:30 111/74 99 01/10/22 13:20 103/52 L 97 01/10/22 13:10 96/61 L 99 01/10/22 13:02 96/75 L 98 01/10/22 11:30 118/80 98 01/10/22 10:09 01/10/22 07:31 96 Laboratory Results Short CBC 01/10/22 Range/Units 06:36 WBC 8.16 (4.8-10.8) K/uL Hgb 8.9 L (12.0-16.0) g/dL Hct 30.2 L (37-47) % Plt Count 231 (130-400) K/uL BMP 01/10/22 06:36 Sodium 126 L Potassium 4.9 Chloride 84 L Carbon Dioxide 33 H BUN 55 H Creatinine 5.26 H* D Glucose 87 Calcium 8.7 (1) Congestive heart failure Heart failure chronicity: acute Heart failure type: combined systolic and diastolic Qualified Code(s): I50.41 - Acute combined systolic (congestive) and diastolic (congestive) heart failure
--- NOTE | 2022-01-10 19:02 | Cardiology Progress Note ---
Date of Service January 10, 2022 Assessment & Plan (1) Acute on chronic renal failure: (2) Congestive heart failure: (3) Long COVID: (4) Paroxysmal atrial fibrillation: Plan: 76 year old morbidly obese female, BMI 48 kg/m2 with history of multiple recent admission dating back to presentation on 11/08/21 with COVID-19 pneumonia, with progressively worse symptoms 10 days after initial diagnosis at home. Discharged 11/20/21. Readmitted 11/29/21 to 12/08/21, and admitted again of 01/01/22. Patient longstanding history of heart failure with preserved systolic function, pAF, and intolerance to multiple medications. Now with progressive renal insufficiency, creatinine 1.25 of 12/14/21, 5.26today with oliguriadespite high dose diuretic therapy. EKG performed 01/10/2020 1511: Sinus rhythm at 60 bpm, first-degree AV block, incomplete right bundle branch block, QTC 454 ms. Patient remains in sinus rhythm. As previously noted, dofetilide discontinued, as contraindicated with GFR less than 20 mL/min/m. Carvedilol prescribed, but has not been receiving this on a regular basis due to blood pressure holds. If recurrent atrial fibrillation occurs, amiodarone likely best option, with noted past intolerances to multiple medications. Patient tolerated tunneled dialysis catheter placement today. Nephrology input noted and appreciated with regards to initiation of dialysis. Admission and Anticipated Discharge Date Admission Date: January 02, 2022 Subjective Patient seen in follow-up, no acute complaints, still with diffuse lower extrem ity edema. Physical Exam Constitutional: + ill appearing and + morbidly obese Respiratory: Decreased breath sounds the bases Cardiovascular: Rate/Rhythm: regular rate Heart Sounds: no murmur Extremities: + edema (2+ edema) Results & Data ([facility]) Vital Signs (Past 12 Hours) Vital Signs Temp Pulse Pulse Pulse Resp BP BP 01/10/22 17:41 36.3 C L 71 98/64 L 01/10/22 17:30 70 98/61 L 01/10/22 17:15 71 98/57 L 01/10/22 17:00 69 98/61 L 01/10/22 16:45 67 111/62 01/10/22 16:30 66 147/81 H 01/10/22 16:15 66 122/64 01/10/22 16:00 65 101/53 L 01/10/22 15:45 68 100/54 L 01/10/22 15:30 71 95/55 L 01/10/22 15:15 70 87/65 L 01/10/22 15:06 72 98/60 L 01/10/22 15:00 36.5 C 74 01/10/22 14:56 62 01/10/22 14:02 36.1 C L 64 14 101/56 L 01/10/22 13:30 62 14 01/10/22 13:20 63 15 01/10/22 13:10 62 18 01/10/22 13:02 36.1 C L 65 14 01/10/22 11:30 36.2 C L 69 9 L 01/10/22 10:09 62 01/10/22 07:31 36.6 C 61 15 114/52 L BP Pulse Ox 01/10/22 17:41 01/10/22 17:30 01/10/22 17:15 01/10/22 17:00 01/10/22 16:45 01/10/22 16:30 01/10/22 16:15 01/10/22 16:00 01/10/22 15:45 01/10/22 15:30 01/10/22 15:15 01/10/22 15:06 01/10/22 15:00 01/10/22 14:56 01/10/22 14:02 95 01/10/22 13:30 111/74 99 01/10/22 13:20 103/52 L 97 01/10/22 13:10 96/61 L 99 01/10/22 13:02 96/75 L 98 01/10/22 11:30 118/80 98 01/10/22 10:09 01/10/22 07:31 96 (1) Congestive heart failure Heart failure chronicity: acute Heart failure type: combined systolic and diastolic Qualified Code(s): I50.41 - Acute combined systolic (congestive) and diastolic (congestive) heart failure
[2022-01-10] MEDS ORDERED: MEROPENEM 250 MG in SYRINGE 0 ML IV ONE (22:00)
[2022-01-11] MEDS: LEVOTHYROXINE SODIUM 125 MCG TABLET PO SCH (06:23)
[2022-01-11 07:24] LABS: Hematocrit (blood only) 30.1 % (37-47); Hemoglobin 8.8 g/dL (12.0-16.0); Mean Corpuscular Hemoglobin 25.5 pg (25-34); Mean Corpuscular Hgb Conc 29.2 g/dL (32-36); Mean Corpuscular Volume 87.2 fL (80-100); Mean Platelet Volume 9.2 fL (7.4-10.4); Platelet Count 241 K/uL (130-400); RDW Coefficient of Variation 21.7 % (11.5-14.5); RDW Standard Deviation 69.8 fL (36.4-46.3); Red Blood Count 3.45 M/uL (4.2-5.4); White Blood Count 8.37 K/uL (4.8-10.8)
[2022-01-11 07:29] LABS: HBSAG NON-REACTIVE (NON-REACTIVE); Hepatitis B Core Antibody IgM NON-REACTIVE (NON-REACTIVE); Hepatitis B Surface Ab, Quant <5 mIU/mL (> OR = 10)
[2022-01-11 07:51] LABS: BUN Creatinine Ratio 8.9 (10-20); Calcium 8.4 mg/dl (8.5-10.1); Creatinine Clr Calc Pharmacy 17.9 ml/min; Est GFR (African American) 12.8 ml/min; Potassium 4.7 mmol/L (3.5-5.1)
[2022-01-11] MEDS: INSULIN ASPART PER UNIT SC SCH ×4 (09:23→20:51)
--- NOTE | 2022-01-11 09:27 | Cardiology Progress Note ---
Date of Service January 11, 2022 Assessment & Plan (1) Acute on chronic renal failure: (2) Congestive heart failure: (3) Long COVID: (4) Paroxysmal atrial fibrillation: Plan: 76 year old morbidly obese female, BMI 48 kg/m2 with history of multiple recent admission dating back to presentation on 11/08/21 with COVID-19 pneumonia, with progressively worse symptoms 10 days after initial diagnosis at home. Discharged 11/20/21. Readmitted 11/29/21 to 12/08/21, and admitted again of 01/01/22. Repeat echo 01/10/22 =no pericardial effusion , hyperdynamic LVEF ~70%. Patient longstanding history of heart failure with preserved systolic function, pAF, and intolerance to multiple medications. Now with progressive renal insufficiency oliguria despite high dose diuretic therapy. HD initiated 01/10/22. EKG performed 01/10/2020 1511: Sinus rhythm at 60 bpm, first-degree AV block, incomplete right bundle branch block, QTC 454 ms. Patient remains in sinus rhythm. As previously noted, dofetilide discontinued, as contraindicated with GFR less than 20 mL/min/m. Carvedilol prescribed, but has not been receiving this on a regular basis due to blood pressure holds. If recurrent atrial fibrillation occurs, amiodarone likely best option, with noted past intolerances to multiple medications and low BP. Admission and Anticipated Discharge Date Admission Date: January 02, 2022 Subjective Pt seen in follow up. No acute complaints. Remains is SR in the 70s. Physical Exam Constitutional: + ill appearing and + morbidly obese Respiratory: Auscultation: + diminished lung sounds Cardiovascular: Rate/Rhythm: regular rate Heart Sounds: no murmur Extremities: + edema (2+ LE edema ) Gastrointestinal (Abdomen): normal bowel sounds, soft, nontender, no hepatosplenomegaly Neurologic: lethargic, follows commands. Results & Data ([facility]) Vital Signs (Past 12 Hours) Vital Signs Temp Pulse Pulse Resp BP BP BP 01/11/22 09:00 72 84/56 L 01/11/22 08:40 37 C 66 01/11/22 07:43 36.8 C 74 16 73/56 L 01/11/22 04:13 36.4 C L 67 16 104/63 01/11/22 03:27 65 18 01/10/22 23:19 36.7 C 68 17 92/61 L 01/10/22 23:07 69 01/10/22 22:38 66 17 Pulse Ox 01/11/22 09:00 01/11/22 08:40 01/11/22 07:43 95 01/11/22 04:13 96 01/11/22 03:27 96 01/10/22 23:19 99 01/10/22 23:07 01/10/22 22:38 95 (1) Congestive heart failure Heart failure chronicity: acute Heart failure type: combined systolic and diastolic Qualified Code(s): I50.41 - Acute combined systolic (congestive) and diastolic (congestive) heart failure
[2022-01-11] MEDS: CYANOCOBALAMIN (B-12) 500 MCG TABLET PO SCH (09:33)
[2022-01-11] MEDS: MULTIVITAMIN TAB PO SCH (09:33)
[2022-01-11] MEDS: FOLIC ACID 1 MG TAB PO SCH (09:34)
[2022-01-11] MEDS: ASCORBIC ACID 500 MG TAB PO SCH (09:34)
[2022-01-11] MEDS: carvediloL 12.5 MG TAB PO SCH ×2 (09:34→20:50)
[2022-01-11] MEDS: BACLOFEN 10 MG TAB PO SCH ×2 (09:34→20:53)
[2022-01-11] MEDS: FERROUS SULFATE 325 MG TAB PO SCH (09:35)
[2022-01-11] MEDS: oxyCODONE HCL 20 MG TABCR (OxyCONTIN) PO SCH ×2 (09:43→21:22)
--- NOTE | 2022-01-11 10:16 | Dialysis Progress Note ---
Date of Service January 11, 2022 Assessment & Plan Admission and Anticipated Discharge Date Admission Date: January 02, 2022 Subjective Assessment & Plan (1) Acute on chronic renal failure: Plan: after several days of AF w/ RVR and hypotension now w/ ischemic ATN d/t this and cardiorenal syndrome . Creat getting worse and fluid retention getting worse.Also BP low But ?? accuracy. Baseline creatinine is somewhat labile but runs generally to high ones. Her creatinine at d/c on 12/25 was 1.4; was 2 on admission and peaked at 5.2 and then dialysis urine output very low now for many days. Rec: 1 Matos and accurate urine --Severe oliguria despite high dose iv lasix 2 Accurate BP needed if possible but has been a challange. 3 Even though creat dont seem that high in the 5' but with uo less than 100 ml for many days she does have lot of fluid retention and has severe ARF and will need dialysis. first Dialysis 01/10 and no issues. Will do 3hrs today and take 2 kilo off and then most likely will be on Saturday. 4 Will plan for Discharge/rehab next week. Not sure she really can live in her home at this time. Subjective Seems more somnolent. On Bipap also at times. Urine low. Massive edema. Not able to interact well. No issues with Dialysis other than low BP ? accuracy Review of Systems Review of Systems: All systems reviewed & are unremarkable except as noted in Subjective Physical Exam Constitutional: well developed, well nourished, + obese, cooperative (but dosing off periodically) and + lethargic; no acute distress Eyes: EOM intact bilaterally ENMT: Ears: no external ear abnormality Nose: no external nose abnormality Mouth: + dry oral mucous membranes Neck: no nuchal rigidity Respiratory: normal respiratory effort and + paradoxical thoraco- abdominal movement Auscultation: + diminished lung sounds, + crackles (R base) and + wheezes (R insp) Cardiovascular: Rate/Rhythm: regular rate Extremities: + edema (4+ BLE pretibial and hips/ abd wall) Gastrointestinal (Abdomen): Inspection/Auscultation: normal bowel sounds Percussion/Palpation: abdomen soft; abdomen nontender Musculoskeletal: Extremities: + abnormal strength (needs help to roll) Skin: no rashes, warm and dry Neurologic: frequent myoclonic jerks; fluent speech; drops off to sleep fast Psychiatric: Orientation: oriented x 3 Results & Data ([facility]) Vital Signs (Past 12 Hours) Vital Signs Temp Pulse Pulse Resp BP BP BP 01/11/22 10:00 82 98/82 L 01/11/22 09:30 74 104/50 L 01/11/22 09:00 72 84/56 L 01/11/22 08:40 37 C 66 01/11/22 07:43 36.8 C 74 16 73/56 L 01/11/22 04:13 36.4 C L 67 16 104/63 01/11/22 03:27 65 18 01/10/22 23:19 36.7 C 68 17 92/61 L 01/10/22 23:07 69 01/10/22 22:38 66 17 Pulse Ox 01/11/22 10:00 01/11/22 09:30 01/11/22 09:00 01/11/22 08:40 01/11/22 07:43 95 01/11/22 04:13 96 01/11/22 03:27 96 01/10/22 23:19 99 01/10/22 23:07 01/10/22 22:38 95
[2022-01-11] MEDS: MIDODRINE HCL 2.5 MG TAB PO SCH ×3 (12:21→17:41)
[2022-01-11] MEDS: SODIUM CHLORIDE 0.9% 500 ML IV SCH (13:51)
--- NOTE | 2022-01-11 16:33 | Hospitalist Progress Note ---
Date of Service January 11, 2022 Assessment & Plan (1) History of noncompliance with medical treatment: (2) Congestive heart failure: (3) Leg edema: Plan: Patient is a 76 yr female with H/O DM II, hypothyroidism, hyperlipidemia, COPD, on chronic oxygen baseline 3 liters oxygen, sleep apnea not on CPAP - intolerant as per the patient, paroxysmal atrial fibrillation, cor pulmonale, chronic essential hypertension, morbid obesity, irritable bowel syndrome, stage III c hronic kidney disease, mixed stress and urge incontinence, chronic pain syndrome, TIA. Patient presented 01/01 to our ED with complaint of progressive fluid retention along with worsening shortness of breath, denies fever and aspiration, reports compliance with home medication. 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 Acute Metabolic Encephalopathy -POA Likely multifactorial: Hypercarbia,Uremia, Hyponatremia H/O COPD and sleep apnea and intolerance to CPAP and/or BiPAP Chronic Oxygen dependency: 3L at rest and 4L with activity at baseline Patient prefers no ventilation BiPAP as needed Continue dialysis as per Nephrology Titrate Oxygen to keep Sats 88-92% given H/O COPD check VBG in AM Acute on chronic heart failure with preserved ejection fraction Possible cardiorenal syndrome Patient reports increasing bilateral lower extremity swelling prior to arrival --11/29 ECHO:Ejection fraction greater than 70%, hyperdynamic left ventricle with normal left ventricle size and normal left ventricular wall thickness. ? Med compliance Appreciate Cardiology, Nephrology Input Pt did not diuresis with IV Lasix . Continue with strict I's and O's, daily weights, fluid restriction Midodrine added for hypotension Volume status to be addressed with dialysis Permanent Catheter for HD placed on 01/10/22 Dialysis as per Nephrology Had HD today, Next Dialysis on Saturday Concern for HCAP UTI / CAUTI : Pt w/ bob at home (per patient after her last discharge), urine Cx +ve for ESBL UTI CXR: Concern for developing fibrosis versus infectious process CTAP and CT chest: Suggestive of post inflammatory fibrosis, urinary bladder wall thickening with perivesicular stranding/correlate with urinalysis. Patient started on ertapenem 01/02-->Meropenem 01/04. 01/04 MRSA negative. Plan to complete 10 day course of antibiotics STACY with CKD Baseline creatinine around 1.3-1.5 Cr 5.26>3.8 Appreciate nephrology recommendation on Dialysis Sleep apnea CPAP intolerant DM II ISS for now Monitor BGs Hypothyroidism Continue Levothyroxine H/O A. fib Afib RVR: Continue Coreg Not on anticoagulation, Xarelto was stopped in past because of history of hematochezia Continue to monitor Appreciate cardiology input and recommendation COPD Sleep apnea Does not use any CPAP COPD remains stable Patient has declined Incruse Ellipta in the past, continue with home inhalers BiPAP as needed Chronic pain Patient reports multiple joint pains Continue with home medications. Anemia of chronic disease: Baseline hemoglobin 7-8 Monitor CBC Continue with iron supplementation DVT Px: SCDs Re: hx of GIB Code Status Full code Disposition: PT/OT prior to discharge Prognosis is guarded Admission and Anticipated Discharge Date Admission Date: January 02, 2022 Subjective Patient is seen and examined at bedside Getting hemodialysis during my encounter Discussed with Nephrology today More alert today but still easily becomes drowsy intermittency Reports having back pain Dyspnea better today Review of Systems Review of Systems: All systems reviewed & are unremarkable except as noted in Subjective Physical Exam Physical Exam: Physical Exam: Vitals signs as noted above General Appearance:Morbidly Obese, no apparent distress, ill appearing Head: normocephalic, Atraumatic Eyes: normal inspection, EOMI Neck: supple, Trachea midline Respiratory/Chest: Decreased breath sounds, basal crackles, No accessory muscle use Cardiovascular: S1, S2, No murmur Abdomen/GI:Soft, Non tender, Bowel sounds present Extremities/Musculoskeletal:normal inspection, B/L LE edema Neurologic/Psych:grossly no focal neurological deficits, + Drowsy Skin: normal color, warm Results & Data Results & Data ([facility]) Vital Signs (Past 12 Hours) Vital Signs Temp Pulse Pulse Resp BP BP Pulse Ox 01/11/22 15:32 58 L 01/11/22 15:09 36.8 C 70 20 117/53 L 96 01/11/22 11:52 37 C 71 113/69 01/11/22 11:30 81 103/78 01/11/22 11:00 68 109/68 01/11/22 10:30 69 112/67 01/11/22 10:00 82 98/82 L 01/11/22 09:30 74 104/50 L 01/11/22 09:00 72 84/56 L 01/11/22 08:40 37 C 66 01/11/22 08:00 66 01/11/22 07:43 36.8 C 74 16 73/56 L 95 Laboratory Results Short CBC 01/11/22 Range/Units 06:49 WBC 8.37 (4.8-10.8) K/uL Hgb 8.8 L (12.0-16.0) g/dL Hct 30.1 L (37-47) % Plt Count 241 (130-400) K/uL BMP 01/11/22 06:49 Sodium 131 L Potassium 4.7 Chloride 91 L Carbon Dioxide 32 BUN 34 H D Creatinine 3.80 H D Glucose 82 Calcium 8.4 L (1) Congestive heart failure Heart failure chronicity: acute Heart failure type: combined systolic and diastolic Qualified Code(s): I50.41 - Acute combined systolic (congestive) and diastolic (congestive) heart failure
[2022-01-11] MEDS: MEROPENEM 500 MG in SYRINGE 0 ML IV SCH (20:53)
[2022-01-12] MEDS: LEVOTHYROXINE SODIUM 125 MCG TABLET PO SCH (05:30)
[2022-01-12 06:18] LABS: Hematocrit (blood only) 29.2 % (37-47); Hemoglobin 8.5 g/dL (12.0-16.0); Mean Corpuscular Hemoglobin 25.8 pg (25-34); Mean Corpuscular Hgb Conc 29.1 g/dL (32-36); Mean Corpuscular Volume 88.8 fL (80-100); Mean Platelet Volume 9.2 fL (7.4-10.4); Platelet Count 198 K/uL (130-400); RDW Coefficient of Variation 21.9 % (11.5-14.5); RDW Standard Deviation 71.1 fL (36.4-46.3); Red Blood Count 3.29 M/uL (4.2-5.4); White Blood Count 7.66 K/uL (4.8-10.8)
[2022-01-12 06:19] LABS: Base Excess VBG 1.4 mEq/L; Oxygen Saturation VBG 86.6 %; pH VBG 7.25 (7.36-7.41)
[2022-01-12 06:44] LABS: BUN Creatinine Ratio 6.8 (10-20); Calcium 8.4 mg/dl (8.5-10.1); Creatinine Clr Calc Pharmacy 21.9 ml/min; Est GFR (African American) 16.6 ml/min; Est GFR (Non-African American) 14.3 ml/min; Potassium 4.6 mmol/L (3.5-5.1)
[2022-01-12] MEDS ORDERED: oxyCODONE HCL IR 5 MG TAB (IMMEDIATE RELEASE) PO PRN (08:09)
--- NOTE | 2022-01-12 09:36 | CT Scan Report ---
CT OF THE HEAD WITHOUT CONTRAST CLINICAL HISTORY: Altered mental status. COMPARISON STUDY: Head CT September 09, 2020. CT DOSE: 1544.89 mGycm TECHNIQUE: Helical axial images of the head were obtained without IV contrast. Automated exposure con trol was utilized for the study. A dose lowering technique was utilized adhering to the principles o f ALARA. FINDINGS: Exam is mildly compromised by motion artifact. No acute intracranial hemorrhage, midline sh ift or mass effect is present. Ventricular system is unremarkable. Basal cisterns are patent. There a re no extra axial collections. No findings to suggest acute dural sinus thrombosis or acute territori al infarct. Mild white matter hypodensity suggests small vessel disease. No calvarial fracture is mamie ntified. Small bilateral mastoid effusions are similar to prior exam. Ethmoid sinus mucosal thickenin g has developed. Postoperative findings within the sinuses are present. IMPRESSION: 1. No acute intracranial findings. No change in appearance of the brain. 2. Ethmoid sinus polypoid mucosal thickening. ACT 112: Negative or not required by law. Electronically signed by: Pascual Santoro M.D. 01/12/2022 9:35 AM
--- NOTE | 2022-01-12 10:11 | Nephrology Progress Note ---
Date of Service January 12, 2022 Assessment & Plan Admission and Anticipated Discharge Date Admission Date: January 02, 2022 Subjective Assessment & Plan (1) Acute on chronic renal failure: Plan: after several days of AF w/ RVR and hypotension now w/ ischemic ATN d/t this and cardiorenal syndrome . Creat getting worse and fluid retention getting worse.Also BP low But ?? accuracy. Baseline creatinine is somewhat labile but runs generally to high ones. Her creatinine at d/c on 12/25 was 1.4; was 2 on admission and peaked at 5.2 and then dialysis urine output very low now for many days. Rec: 1 Matos and accurate urine --still Severe oliguria despite high dose iv lasix 2 Accurate BP needed if possible but has been a challange. 3Urine less than 100 ml for many days she does have lot of fluid retention and has severe ARF and started dialysis. first Dialysis 01/10 then 01/11 and no issues. Next HD tomorrow--4hrs and take 3 kilo off. 4 Will plan for Discharge/rehab next week. Not sure she really can live in her home at this time. also patient seems more confused and altered than before. Subjective Seems more somnolent/Confused at times. On Bipap also at times. Urine low. Massive edema. Not able to interact well. No issues with Dialysis other than low BP ? accuracy Review of Systems Review of Systems: All systems reviewed & are unremarkable except as noted in Subjective Physical Exam Constitutional: well developed, well nourished, + obese, cooperative (but dosing off periodically) and + lethargic; no acute distress Eyes: EOM intact bilaterally ENMT: Ears: no external ear abnormality Nose: no external nose abnormality Mouth: + dry oral mucous membranes Neck: no nuchal rigidity Respiratory: normal respiratory effort and + paradoxical thoraco- abdominal movement Auscultation: + diminished lung sounds, + crackles (R base) and + wheezes (R insp) Cardiovascular: Rate/Rhythm: regular rate Extremities: + edema (4+ BLE pretibial and hips/ abd wall) Gastrointestinal (Abdomen): Inspection/Auscultation: normal bowel sounds Percussion/Palpation: abdomen soft; abdomen nontender Musculoskeletal: Extremities: + abnormal strength (needs help to roll) Skin: no rashes, warm and dry Neurologic: frequent myoclonic jerks; fluent speech; drops off to sleep fast Psychiatric: Orientation: oriented x 3 Results & Data ([facility]) Vital Signs (Past 12 Hours) Vital Signs Temp Pulse Pulse Resp BP BP Pulse Ox 01/12/22 09:42 67 20 98 01/12/22 08:20 36.4 C L 71 18 159/107 H 95 01/12/22 04:01 36.4 C L 64 20 148/59 H 96 01/12/22 03:10 69 16 96 01/12/22 00:43 36.4 C L 67 14 121/60 96 01/11/22 22:40 61 18 61 L 01/11/22 22:18 63
[2022-01-12] MEDS: INSULIN ASPART PER UNIT SC SCH ×4 (10:33→20:32)
[2022-01-12] MEDS: oxyCODONE HCL 10 MG TABCR (OxyCONTIN) PO SCH ×2 (10:33→20:33)
[2022-01-12] MEDS: carvediloL 12.5 MG TAB PO SCH ×2 (12:23→20:31)
[2022-01-12] MEDS: MIDODRINE HCL 2.5 MG TAB PO SCH ×3 (12:23→17:34)
[2022-01-12] MEDS: ASCORBIC ACID 500 MG TAB PO SCH (12:26)
[2022-01-12] MEDS: PANTOprazole 40 MG TAB PO PRN (12:26)
[2022-01-12] MEDS: FOLIC ACID 1 MG TAB PO SCH (12:27)
[2022-01-12] MEDS: MULTIVITAMIN TAB PO SCH (12:27)
[2022-01-12] MEDS: CYANOCOBALAMIN (B-12) 500 MCG TABLET PO SCH (12:27)
[2022-01-12] MEDS: BACLOFEN 10 MG TAB PO SCH (12:27)
[2022-01-12] MEDS: FERROUS SULFATE 325 MG TAB PO SCH (12:28)
--- NOTE | 2022-01-12 13:32 | Cardiology Progress Note ---
Date of Service January 12, 2022 Assessment & Plan (1) Acute on chronic renal failure: (2) Congestive heart failure: (3) Long COVID: (4) Paroxysmal atrial fibrillation: Plan: 76 year old morbidly obese female, BMI 48 kg/m2 with history of multiple recent admission dating back to presentation on 11/08/21 with COVID-19 pneumonia, with progressively worse symptoms 10 days after initial diagnosis at home. Discharged 11/20/21. Readmitted 11/29/21 to 12/08/21, and admitted again of 01/01/22. Repeat echo 01/10/22 =no pericardial effusion , hyperdynamic LVEF ~70%. Patient longstanding history of heart failure with preserved systolic function, pAF, and intolerance to multiple medications. Now with progressive renal insufficiency oliguria despite high dose diuretic therapy. HD initiated 01/10/22. EKG performed 01/10/2020 1511: Sinus rhythm at 60 bpm, first-degree AV block, incomplete right bundle branch block, QTC 454 ms. Patient remains in sinus rhythm, brief run of recurrent atrial fibrillation noted morning of 01/12, as previously noted, dofetilide discontinued, as contraindicated with GFR less than 20 mL/min/m. Dofetilide therefore discontinued on 01/09/2022. -We will start amiodarone a.m. of 01/13/2022, having completed 3 days of dofetilide washout. Carvedilol prescribed, but has not been receiving this on a regular basis due to blood pressure holds. Patient with multiple medication intolerances in the past, however given concerns with regards to low blood pressure in past tolerance/ineffectiveness of other medications for atrial fibrillation, amiodarone best option. Prognosis poor. Admission and Anticipated Discharge Date Admission Date: January 02, 2022 Subjective Patient seen in follow-up today. On BiPAP. Lethargic. Predominantly sinus rhythm in the 60s, brief run of tachycardia consistent with with recurrent atrial fibrillation noted this morning. Physical Exam Constitutional: + ill appearing and + morbidly obese Respiratory: normal respiratory effort, lungs clear to auscultation Auscultation: + diminished lung sounds Cardiovascular: Rate/Rhythm: regular rate and regular rhythm Heart Sounds: no murmur Extremities: + edema (2+ LE edema ) Gastrointestinal (Abdomen): normal bowel sounds, soft, nontender, no hepatosplenomegaly Neurologic: PERRL, EOMI, accommodation nl, no face palsy, no dysarthria Results & Data ([facility]) Vital Signs (Past 12 Hours) Vital Signs Temp Pulse Pulse Resp BP BP Pulse Ox 01/12/22 10:53 36.4 C L 59 L 15 133/69 92 01/12/22 09:42 67 20 98 01/12/22 08:20 36.4 C L 71 18 159/107 H 95 01/12/22 07:00 64 01/12/22 04:01 36.4 C L 64 20 148/59 H 96 01/12/22 03:10 69 16 96 (1) Congestive heart failure Heart failure chronicity: acute Heart failure type: combined systolic and diastolic Qualified Code(s): I50.41 - Acute combined systolic (congestive) and diastolic (congestive) heart failure
--- NOTE | 2022-01-12 14:42 | Hospitalist Progress Note ---
Date of Service January 12, 2022 Assessment & Plan (1) History of noncompliance with medical treatment: (2) Congestive heart failure: (3) Leg edema: Plan: Patient is a 76 yr female with H/O DM II, hypothyroidism, hyperlipidemia, COPD, on chronic oxygen baseline 3 liters oxygen, sleep apnea not on CPAP - intolerant as per the patient, paroxysmal atrial fibrillation, cor pulmonale, chronic essential hypertension, morbid obesity, irritable bowel syndrome, stage III c hronic kidney disease, mixed stress and urge incontinence, chronic pain syndrome, TIA. Patient presented 01/01 to our ED with complaint of progressive fluid retention along with worsening shortness of breath, denies fever and aspiration, reports compliance with home medication. Of note, patient was recently discharged from hospital after being treated for respiratory failure secondary to COPD exacerbation secondary to COVID-19 infection to rehab and then transitioned to home 1 week ago [employer]. Acute Metabolic Encephalopathy -POA Likely multifactorial: Hypercarbia,Uremia, Hyponatremia, Medications H/O COPD and sleep apnea and intolerance to CPAP and/or BiPAP Chronic Oxygen dependency: 3L at rest and 4L with activity at baseline Patient prefers no ventilation BiPAP as needed Continue dialysis as per Nephrology Titrate Oxygen to keep Sats 88-92% given H/O COPD Decrease Baclofen to 5mg daily Decrease Oxycodone to 10mg BID--Further decrease as able to minimize excess sedation Monitor any withdrawal Acute on chronic heart failure with preserved ejection fraction Possible cardiorenal syndrome Patient reports increasing bilateral lower extremity swelling prior to arrival --11/29 ECHO:Ejection fraction greater than 70%, hyperdynamic left ventricle with normal left ventricle size and normal left ventricular wall thickness. ? Med compliance Appreciate Cardiology, Nephrology Input Pt did not diuresis with IV Lasix . Continue with strict I's and O's, daily weights, fluid restriction Midodrine added for hypotension Volume status to be addressed with dialysis Permanent Catheter for HD placed on 01/10/22 Dialysis as per Nephrology Plan for dialysis tomorrow Concern for HCAP UTI / CAUTI : Pt w/ bob at home (per patient after her last discharge), urine Cx +ve for ESBL UTI CXR: Concern for developing fibrosis versus infectious process CTAP and CT chest: Suggestive of post inflammatory fibrosis, urinary bladder wall thickening with perivesicular stranding/correlate with urinalysis. Patient started on ertapenem 01/02-->Meropenem 01/04. 01/04 MRSA negative. Plan to complete 10 day course of antibiotics STACY with CKD Baseline creatinine around 1.3-1.5 Cr 5.26>3.8>3.0 Appreciate nephrology recommendation on Dialysis currently Sleep apnea CPAP intolerant DM II ISS for now Monitor BGs Hypothyroidism Continue Levothyroxine H/O A. fib Afib RVR: Dofetilide discontinued Continue Coreg as able Not on anticoagulation, Xarelto was stopped in past because of history of hematochezia Continue to monitor Appreciate cardiology input and recommendation Will be started on Amiodarone tomorrow as per Cardiology Dysphagia Aspiration Precautions Speech Eval completed Pureed diet COPD Sleep apnea Does not use any CPAP COPD remains stable Patient has declined Incruse Ellipta in the past, continue with home inhalers BiPAP as needed Chronic pain Patient reports multiple joint pains Continue with home medications. Anemia of chronic disease: Baseline hemoglobin 7-8 Monitor CBC Continue with iron supplementation DVT Px: SCDs Re: hx of GIB Code Status Full code Disposition: PT/OT prior to discharge Prognosis is guarded Admission and Anticipated Discharge Date Admission Date: January 02, 2022 Subjective Patient is seen and examined at bedside Very lethargic this morning ABG suggestive of hypercarbia Placed on BiPAP Discussed with nephrology today Plan for hemodialysis tomorrow Patient having difficulty with taking medications No new complaints Chronic back pain Review of Systems Review of Systems: All systems reviewed & are unremarkable except as noted in Subjective Physical Exam Physical Exam: Physical Exam: Vitals signs as noted above General Appearance:Morbidly Obese, no apparent distress, ill appearing Head: normocephalic, Atraumatic Eyes: normal inspection, EOMI Neck: supple, Trachea midline Respiratory/Chest: Decreased breath sounds, basal crackles, No accessory muscle use Cardiovascular: S1, S2, No murmur Abdomen/GI:Soft, Non tender, Bowel sounds present Extremities/Musculoskeletal:normal inspection, B/L LE edema Neurologic/Psych:grossly no focal neurological deficits, + Drowsy Skin: normal color, warm Results & Data Results & Data ([facility]) Vital Signs (Past 12 Hours) Vital Signs Temp Pulse Pulse Resp BP BP Pulse Ox 01/12/22 10:53 36.4 C L 59 L 15 133/69 92 01/12/22 09:42 67 20 98 01/12/22 08:20 36.4 C L 71 18 159/107 H 95 01/12/22 07:00 64 01/12/22 04:01 36.4 C L 64 20 148/59 H 96 01/12/22 03:10 69 16 96 Laboratory Results Short CBC 01/12/22 Range/Units 06:06 WBC 7.66 (4.8-10.8) K/uL Hgb 8.5 L (12.0-16.0) g/dL Hct 29.2 L (37-47) % Plt Count 198 (130-400) K/uL BMP 01/12/22 06:06 Sodium 134 L Potassium 4.6 Chloride 98 Carbon Dioxide 29 BUN 21 Creatinine 3.07 H D Glucose 86 Calcium 8.4 L (1) Congestive heart failure Heart failure chronicity: acute Heart failure type: combined systolic and diastolic Qualified Code(s): I50.41 - Acute combined systolic (congestive) and diastolic (congestive) heart failure
[2022-01-12] MEDS: SODIUM CHLORIDE 0.9% 500 ML IV SCH (15:09)
--- NOTE | 2022-01-12 16:57 | Communication Note ---
Date of Service: January 12, 2022 EKG at 60 with first degree AV block. Reduce amiodarone load to 200 mg daily
[2022-01-12] MEDS: MEROPENEM 500 MG in SYRINGE 0 ML IV SCH (20:33)
[2022-01-13] MEDS: LEVOTHYROXINE SODIUM 125 MCG TABLET PO SCH (06:04)
[2022-01-13] MEDS ORDERED: EPOETIN ALFA 10,000 UNITS/ML VIAL IV ONE (07:00)
[2022-01-13] MEDS ORDERED: HEPARIN SOD (PORCINE) 1000 UNIT/ML IV ONE (07:00)
[2022-01-13] MEDS ORDERED: SODIUM CHLORIDE 0.9% 1000ML 1,000 ML IV PRN (07:00)
[2022-01-13] MEDS ORDERED: AMIODARONE 200 MG TAB PO SCH (07:00)
[2022-01-13 07:13] LABS: Base Excess VBG 0.7 mEq/L; Oxygen Saturation VBG 70.8 %; pH VBG 7.19 (7.36-7.41)
[2022-01-13 07:34] LABS: BUN Creatinine Ratio 6.7 (10-20); Calcium 8.1 mg/dl (8.5-10.1); Creatinine Clr Calc Pharmacy 18.9 ml/min; Est GFR (African American) 13.8 ml/min; Est GFR (Non-African American) 11.9 ml/min; Potassium 5.2 mmol/L (3.5-5.1)
[2022-01-13 09:11] LABS: Base Excess ABG 0.4 mEq/L (-9-1.8); HCO3 ABG 29 mmol/L (19-24); Oxygen Saturation ABG 94.6 % (90-95); PCO2 ABG 69 mmHg (35-46); PO2 ABG 87 mmHg (80-95); pH ABG 7.24 (7.35-7.45)
[2022-01-13 09:13] LABS: Allen Test Pos (Pos)
[2022-01-13] MEDS: INSULIN ASPART PER UNIT SC SCH ×4 (10:28→20:14)
[2022-01-13] MEDS: oxyCODONE HCL 10 MG TABCR (OxyCONTIN) PO SCH ×2 (10:29→20:00)
--- NOTE | 2022-01-13 12:12 | Electrocardiogram Report ---
Test Reason : Blood Pressure : / mmHG Vent. Rate : 058 BPM Atrial Rate : 058 BPM P-R Int : 214 ms QRS Dur : 084 ms QT Int : 478 ms P-R-T Axes : 076 000 054 degrees QTc Int : 469 ms Sinus bradycardia with 1st degree A-V block Low voltage QRS Poor R wave progression, consider anterior CO vs. lead placement vs. LVH Abnormal ECG When compared with ECG of 09-JAN-2022 15:11, No significant change was found Confirmed by Jack Fong ([id number]) on 01/13/2022 12:12:09 PM Referred By: REFERRED SELF Confirmed By:Jack Fong
[2022-01-13] MEDS: SODIUM CHLORIDE 0.9% 500 ML IV SCH (13:24)
--- NOTE | 2022-01-13 14:14 | Hospitalist Progress Note ---
Date of Service January 13, 2022 Assessment & Plan (1) History of noncompliance with medical treatment: (2) Congestive heart failure: (3) Leg edema: Plan: Patient is a 76 yr female with H/O DM II, hypothyroidism, hyperlipidemia, COPD, on chronic oxygen baseline 3 liters oxygen, sleep apnea not on CPAP - intolerant as per the patient, paroxysmal atrial fibrillation, cor pulmonale, chronic essential hypertension, morbid obesity, irritable bowel syndrome, stage III c hronic kidney disease, mixed stress and urge incontinence, chronic pain syndrome, TIA. Patient presented 01/01 to our ED with complaint of progressive fluid retention along with worsening shortness of breath, denies fever and aspiration, reports compliance with home medication. Of note, patient was recently discharged from hospital after being treated for respiratory failure secondary to COPD exacerbation secondary to COVID-19 infection to rehab and then transitioned to home 1 week ago [employer]. Acute Metabolic Encephalopathy -POA Likely multifactorial: Hypercarbia,Uremia, Hyponatremia, Medications H/O COPD and sleep apnea and intolerance to CPAP and/or BiPAP Chronic Oxygen dependency: 3L at rest and 4L with activity at baseline Patient prefers no ventilation Continue dialysis as per Nephrology Titrate Oxygen to keep Sats 88-92% given H/O COPD Decrease Baclofen to 5mg daily Decrease Oxycodone to 10mg BID--Hold for excess sedation Monitor any withdrawal Continue BiPAP Patient is on Conditional Code Will need to readdress code status Patient's family understands that patient is critical and has poor prognosis Acute on chronic heart failure with preserved ejection fraction Possible cardiorenal syndrome Patient reports increasing bilateral lower extremity swelling prior to arrival --11/29 ECHO:Ejection fraction greater than 70%, hyperdynamic left ventricle with normal left ventricle size and normal left ventricular wall thickness. ? Med compliance Appreciate Cardiology, Nephrology Input Pt did not diuresis with IV Lasix . Continue with strict I's and O's, daily weights, fluid restriction Midodrine added for hypotension Volume status to be addressed with dialysis Permanent Catheter for HD placed on 01/10/22 Dialysis as per Nephrology Plan for dialysis today Concern for HCAP UTI / CAUTI : Pt w/ bob at home (per patient after her last discharge), urine Cx +ve for ESBL UTI CXR: Concern for developing fibrosis versus infectious process CTAP and CT chest: Suggestive of post inflammatory fibrosis, urinary bladder wall thickening with perivesicular stranding/correlate with urinalysis. Patient started on ertapenem 01/02-->Meropenem 01/04. 01/04 MRSA negative. Will complete antibiotic course tomorrow STACY with CKD Baseline creatinine around 1.3-1.5 Cr 5.26>3.8>3.5 Appreciate nephrology recommendation on Dialysis currently Sleep apnea CPAP intolerant DM II ISS for now Monitor BGs Hypothyroidism Continue Levothyroxine H/O A. fib Afib RVR: Dofetilide discontinued Continue Coreg as able Not on anticoagulation, Xarelto was stopped in past because of history of hematochezia Continue to monitor Appreciate cardiology input and recommendation On Amiodarone 200mg daily Dysphagia Aspiration Precautions Speech Eval completed Pureed diet COPD Sleep apnea Does not use any CPAP COPD remains stable Patient has declined Incruse Ellipta in the past, continue with home inhalers BiPAP as needed Chronic pain Patient reports multiple joint pains Continue with home medications. Anemia of chronic disease: Baseline hemoglobin 7-8 Monitor CBC Continue with iron supplementation DVT Px: SCDs Re: hx of GIB Code Status Full code Disposition: PT/OT prior to discharge Prognosis is guarded Admission and Anticipated Discharge Date Admission Date: January 02, 2022 Subjective Patient is seen and examined at bedside Remains lethargic this morning Patient could have medications this morning Updated patient's Son over the phone Planned for hemodialysis today Poor Oral Intake Narcotics, Baclofen held Unable to obtain much history Review of Systems Review of Systems: All systems reviewed & are unremarkable except as noted in Subjective Physical Exam Physical Exam: Physical Exam: Vitals signs as noted above General Appearance:Morbidly Obese, no apparent distress, ill appearing Head: normocephalic, Atraumatic Eyes: normal inspection, EOMI Neck: supple, Trachea midline Respiratory/Chest: Decreased breath sounds, basal crackles, No accessory muscle use Cardiovascular: S1, S2, No murmur Abdomen/GI:Soft, Non tender, Bowel sounds present Extremities/Musculoskeletal:normal inspection, B/L LE edema Neurologic/Psych:grossly no focal neurological deficits, + Drowsy Skin: normal color, warm Results & Data Results & Data ([facility]) Vital Signs (Past 12 Hours) Vital Signs Temp Pulse Pulse Resp BP BP Pulse Ox 01/13/22 11:23 36.6 C 61 16 90/43 L 98 01/13/22 07:50 36.4 C L 66 20 114/48 L 96 01/13/22 03:06 62 19 97 01/13/22 03:01 36.6 C 64 22 123/62 95 Laboratory Results BMP 01/13/22 07:00 Sodium 135 L Potassium 5.2 H Chloride 101 Carbon Dioxide 30 BUN 24 H Creatinine 3.56 H D Glucose 106 H Calcium 8.1 L (1) Congestive heart failure Heart failure chronicity: acute Heart failure type: combined systolic and diastolic Qualified Code(s): I50.41 - Acute combined systolic (congestive) and diastolic (congestive) heart failure
[2022-01-13] MEDS: AMIODARONE 200 MG TAB PO SCH (14:19)
[2022-01-13] MEDS: ASCORBIC ACID 500 MG TAB PO SCH (14:19)
[2022-01-13] MEDS: MIDODRINE HCL 2.5 MG TAB PO SCH ×3 (14:19→18:11)
[2022-01-13] MEDS: BACLOFEN 10 MG TAB PO SCH (14:19)
[2022-01-13] MEDS: FERROUS SULFATE 325 MG TAB PO SCH (14:20)
[2022-01-13] MEDS: MULTIVITAMIN TAB PO SCH (14:20)
[2022-01-13] MEDS: HEPARIN SOD (PORCINE) 1000 UNIT/ML IV SCH (14:20)
[2022-01-13] MEDS: CYANOCOBALAMIN (B-12) 500 MCG TABLET PO SCH (14:20)
[2022-01-13] MEDS: FOLIC ACID 1 MG TAB PO SCH (14:20)
[2022-01-13] MEDS: carvediloL 12.5 MG TAB PO SCH ×2 (14:20→20:00)
[2022-01-13] MEDS ORDERED: ATROPINE SULFATE 0.1 MG/ML 10ML SYR IV ONE (16:19)
--- NOTE | 2022-01-13 16:33 | Communication Note ---
Date of Service: January 13, 2022 Patient currently unable to make medical decision for herself as unable to have a meaningful conversation due to her mental status. Discussed with patient's son Baylee Fierro who is the POA about patient's condition. Family prefers patient to be DNI/DNR but would like to continue current treatment for now. Family understands that patient is in critical condition and prognosis is poor. Will consider Palliative Care evaluation if patient continues to deteriorate to further address goals of care.
--- NOTE | 2022-01-13 18:28 | Dialysis Progress Note ---
Date of Service January 13, 2022 Assessment & Plan (1) Acute on chronic renal failure: Plan: Oligoanuric dialysis dependent ischemic ATN after several days of AF w/ RVR and hypotension and with pre-existing cardiorenal syndrome. Baseline creatinine is somewhat labile but runs generally to high ones. Her creatinine at d/c on 12/25 was 1.4; was 2 on admission. First day of dialysis January 10. Overall prognosis very poor; family speaks for patient at this time and wishes to continue current level of care Daily basic metabolic panel Next dialysis tentatively for January 15 though cannot rule out treatment tomorrow; likely to need frequent/near daily dialysis until we can improve hemodynamic parameters and volume overload -Continue low-dose Midodrine (2) Electrolyte and fluid disorder: Plan: Profound volume overload\anasarca in the setting of lower blood pressures intermittently as low as the 80s to 90s systolic. Chemistries acceptable for now. added hold parameter to bid torsemide 10 mg dose; this is her OP dose Daily basic metabolic panel cont low sodium to diet orders and tightened further fluid limit 1.5 L daily Strict intake and output to continue >volume status will only worsen if HR and rhythm, BP uncontrolled Admission and Anticipated Discharge Date Admission Date: January 02, 2022 Subjective Seen on dialysis at approximately 1630: Patient on BiPAP and obtunded, unable to provide review of systems. Blood pressure remains soft in the 80s and 90s systolic She did convert to sinus rhythm however and blood pressure improved somewhat later in treatment Review of Systems Review of Systems: Unobtainable due to reduced consciousness Physical Exam Constitutional: well developed, + morbidly obese, + altered mental status and + lethargic; no acute distress Eyes: EOM intact bilaterally ENMT: Ears: no external ear abnormality Nose: no external nose abnormality Mouth: + dry oral mucous membranes Neck: no nuchal rigidity Respiratory: normal respiratory effort and + paradoxical thoraco-abdominal movement Auscultation: + diminished lung sounds Cardiovascular: Rate/Rhythm: regular rate and regular rhythm Extremities: + edema (3+ BLE pretibial and hips/ abd wall) Gastrointestinal (Abdomen): Inspection/Auscultation: normal bowel sounds Percussion/Palpation: abdomen soft; abdomen nontender Musculoskeletal: Extremities: + abnormal strength (Generalized weakness) Skin: no rashes, warm and dry Neurologic: Lethargic, opens eyes and tracks briefly, does not speak or follow commands; no tremor Genitourinary: Matos with minimal urine output Results & Data ([facility]) Vital Signs (Past 12 Hours) Vital Signs Temp Pulse Pulse Resp BP BP Pulse Ox 01/13/22 17:30 66 110/50 L 01/13/22 17:15 64 101/64 01/13/22 17:00 67 103/48 L 01/13/22 16:45 67 88/54 L 01/13/22 16:30 67 112/58 L 01/13/22 16:15 64 98/64 L 01/13/22 16:00 64 83/49 L 01/13/22 15:57 71 01/13/22 15:45 64 85/48 L 01/13/22 15:30 122 H 90/66 L 01/13/22 15:15 122 H 97/70 L 01/13/22 15:00 70 95/53 L 01/13/22 14:46 88 22 95 01/13/22 14:45 88 95/49 L 01/13/22 14:30 88 100/57 L 01/13/22 14:15 64 114/84 01/13/22 14:02 36.4 C L 01/13/22 11:23 36.6 C 61 16 90/43 L 98 01/13/22 08:00 62 01/13/22 07:50 36.4 C L 66 20 114/48 L 96 Laboratory Results 01/12/22 06:06 01/13/22 07:00
[2022-01-13] MEDS: MEROPENEM 500 MG in SYRINGE 0 ML IV SCH (20:05)
[2022-01-13 21:03] LABS: Base Excess ABG 2.7 mEq/L (-9-1.8); HCO3 ABG 31 mmol/L (19-24); Oxygen Saturation ABG 95.7 % (90-95); PCO2 ABG 66 mmHg (35-46); PO2 ABG 86 mmHg (80-95); pH ABG 7.28 (7.35-7.45)
[2022-01-13 21:14] LABS: Allen Test Pos (Pos)
[2022-01-13 21:26] LABS: BUN Creatinine Ratio 5.2 (10-20); Creatinine Clr Calc Pharmacy 38.6 ml/min; Est GFR (African American) 32.9 ml/min; Est GFR (Non-African American) 28.4 ml/min
[2022-01-14 00:32] LABS: Base Excess ABG 3.7 mEq/L (-9-1.8); HCO3 ABG 30 mmol/L (19-24); Oxygen Saturation ABG 93.4 % (90-95); PCO2 ABG 53 mmHg (35-46); PO2 ABG 67 mmHg (80-95); pH ABG 7.37 (7.35-7.45)
[2022-01-14 00:50] LABS: Allen Test Pos (Pos)
[2022-01-14] MEDS: LEVOTHYROXINE SODIUM 125 MCG TABLET PO SCH (06:30)
[2022-01-14 07:30] LABS: BUN Creatinine Ratio 5.9 (10-20); Calcium 8.3 mg/dl (8.5-10.1); Est GFR (African American) 30.6 ml/min; Est GFR (Non-African American) 26.4 ml/min; Potassium 4.3 mmol/L (3.5-5.1)
[2022-01-14 07:44] LABS: Hematocrit (blood only) 30.6 % (37-47); Hemoglobin 8.8 g/dL (12.0-16.0); Mean Corpuscular Hemoglobin 25.6 pg (25-34); Mean Corpuscular Hgb Conc 28.8 g/dL (32-36); Mean Platelet Volume 9.4 fL (7.4-10.4); Platelet Count 189 K/uL (130-400); RDW Coefficient of Variation 22.5 % (11.5-14.5); RDW Standard Deviation 73.5 fL (36.4-46.3); Red Blood Count 3.44 M/uL (4.2-5.4); White Blood Count 7.62 K/uL (4.8-10.8)
[2022-01-14] MEDS: INSULIN ASPART PER UNIT SC SCH ×4 (08:09→20:36)
[2022-01-14] MEDS: AMIODARONE 200 MG TAB PO SCH ×2 (09:14→20:05)
[2022-01-14] MEDS: MIDODRINE HCL 2.5 MG TAB PO SCH ×3 (09:14→18:24)
[2022-01-14] MEDS: BACLOFEN 10 MG TAB PO SCH (09:15)
[2022-01-14] MEDS: carvediloL 12.5 MG TAB PO SCH ×2 (09:16→20:04)
[2022-01-14] MEDS: ASCORBIC ACID 500 MG TAB PO SCH (09:16)
[2022-01-14] MEDS: FERROUS SULFATE 325 MG TAB PO SCH (09:17)
[2022-01-14] MEDS: MULTIVITAMIN TAB PO SCH (09:17)
[2022-01-14] MEDS: FOLIC ACID 1 MG TAB PO SCH (09:17)
[2022-01-14] MEDS: CYANOCOBALAMIN (B-12) 500 MCG TABLET PO SCH (09:17)
[2022-01-14] MEDS: oxyCODONE HCL 10 MG TABCR (OxyCONTIN) PO SCH ×2 (09:18→20:05)
--- NOTE | 2022-01-14 09:28 | Cardiology Progress Note ---
Date of Service January 14, 2022 Assessment & Plan (1) Tachycardia: (2) Paroxysmal atrial fibrillation: (3) Acute on chronic renal failure: (4) Long COVID: (5) Acute on chronic respiratory failure with hypoxia and hypercapnia: (6) Chronic hypotension: Plan: Recommend repeat ECG with any recurrent tachycardia. Telemetry suggest atrial flutter with 2-1 conduction versus paroxysmal atrial tachycardia. Spontaneously converted to sinus rhythm during exam. Currently wearing BiPAP however more alert today per discussion with nursing. She will receive dose of midodrine and amiodarone this morning. Titrate amiodarone to 200 mg twice daily. Patient is not chronically anticoagulated due to history of bleeding. Carvedilol will remain on hold due to hypotension. Hemodialysis today as per nephrology. Admission and Anticipated Discharge Date Admission Date: January 02, 2022 Subjective Patient seen and examined at the bedside. Telemetry revealing narrow complex tachycardia at a rate of approximately 130 bpm. Findings represent atrial flutter with 2-1 conduction versus supraventricular tachycardia. Patient broke to sinus rhythm in the 70s during examination. She is awake on BiPAP. BiPAP applied approximately 24 hours ago due to change in mental status with respiratory acidosis. She is more alert this morning. She did not receive any oral medications yesterday including amiodarone or midodrine. Review of Systems Review of Systems: All systems reviewed & are unremarkable except as noted in Subjective Physical Exam Constitutional: + ill appearing and + morbidly obese Respiratory: normal respiratory effort; no respiratory distress Auscultation: + diminished lung sounds (Bilateral); no rales, no rhonchi and no wheezes Cardiovascular: Rate/Rhythm: regular rate, regular rhythm and + tachycardic Heart Sounds: normal S1 and normal S2; no murmur Extremities: + edema (1+ bilateral pedal and ankle edema) Gastrointestinal (Abdomen): Inspection/Auscultation: abdomen not distended Percussion/Palpation: abdomen soft; abdomen nontender, no guarding and abdomen not rigid Results & Data ([facility]) Vital Signs (Past 12 Hours) Vital Signs Temp Pulse Pulse Pulse Resp BP BP 01/14/22 07:37 36.4 C L 77 22 100/47 L 01/14/22 07:12 76 24 01/14/22 03:39 36.7 C 75 22 147/83 H 01/14/22 03:27 73 18 01/13/22 22:55 36.7 C 73 22 153/59 H 01/13/22 22:30 77 20 01/13/22 22:19 152/64 H 01/13/22 22:18 78 Pulse Ox 01/14/22 07:37 93 01/14/22 07:12 94 01/14/22 03:39 93 01/14/22 03:27 92 01/13/22 22:55 92 01/13/22 22:30 96 01/13/22 22:19 01/13/22 22:18
[2022-01-14] MEDS: SODIUM CHLORIDE 0.9% 500 ML IV SCH (13:48)
--- NOTE | 2022-01-14 13:59 | Nephrology Progress Note ---
Date of Service January 14, 2022 Assessment & Plan (1) Acute on chronic renal failure: Plan: Oligoanuric dialysis dependent ischemic ATN after several days of AF/F, tach ycardia, and hypotension and with pre-existing cardiorenal syndrome. Baseline creatinine is somewhat labile but runs generally to high ones. Her creatinine at d/c on 12/25 was 1.4; was 2 on admission. First day of dialysis January 10. Overall prognosis very poor; family speaks for patient at this time and wishes to continue current level of care Daily basic metabolic panel Next dialysis tentatively for January 15; likely to need frequent/near daily dialysis until we can improve hemodynamic parameters and volume overload -Continue low-dose Midodrine (2) Electrolyte and fluid disorder: Plan: Profound volume overload\anasarca in the setting of lower blood pressures intermittently as low as the 80s to 90s systolic. Chemistries acceptable for now. Daily basic metabolic panel when taking po again, will need low sodium diet and fluid limit 1.2 L daily Strict intake and output to continue >volume status will only worsen if HR and rhythm, BP uncontrolled Admission and Anticipated Discharge Date Admission Date: January 02, 2022 Subjective completing meropenem today; more alert today but still bipap dependent; getting f/u ECGs after flipping repeatedly between NSR and atrial flutter Review of Systems Review of Systems: Other (limited by bipap) Physical Exam Constitutional: well developed, + morbidly obese, + altered mental status and + lethargic (mildly); no acute distress Eyes: EOM intact bilaterally ENMT: Ears: no external ear abnormality Nose: no external nose abnormality Mouth: + dry oral mucous membranes Neck: no nuchal rigidity Respiratory: normal respiratory effort Auscultation: + diminished lung sounds on bipap Cardiovascular: Rate/Rhythm: regular rate and regular rhythm Extremities: + edema (3+ BLE pretibial and hips/ abd wall) Gastrointestinal (Abdomen): Inspection/Auscultation: normal bowel sounds Percussion/Palpation: abdomen soft; abdomen nontender Musculoskeletal: Extremities: + abnormal strength (Generalized weakness) Skin: no rashes, warm and dry Neurologic: miranda, limited speeh on bipap, no tremor Psychiatric: Orientation: alert Genitourinary: bob w/ scant light yellow urine Results & Data ([facility]) Vital Signs (Past 12 Hours) Vital Signs Temp Pulse Pulse Pulse Resp BP BP 01/14/22 11:18 36.8 C 93 H 22 91/46 L 01/14/22 10:55 77 22 01/14/22 07:37 36.4 C L 77 22 100/47 L 01/14/22 07:12 76 24 01/14/22 03:39 36.7 C 75 22 147/83 H 01/14/22 03:27 73 18 Pulse Ox 01/14/22 11:18 93 01/14/22 10:55 95 01/14/22 07:37 93 01/14/22 07:12 94 01/14/22 03:39 93 01/14/22 03:27 92 Laboratory Results 01/14/22 06:25 01/14/22 06:25
--- NOTE | 2022-01-14 14:43 | Hospitalist Progress Note ---
Date of Service January 14, 2022 Assessment & Plan (1) History of noncompliance with medical treatment: (2) Congestive heart failure: (3) Leg edema: Plan: Patient is a 76 yr female with H/O DM II, hypothyroidism, hyperlipidemia, COPD, on chronic oxygen baseline 3 liters oxygen, sleep apnea not on CPAP - intolerant as per the patient, paroxysmal atrial fibrillation, cor pulmonale, chronic essential hypertension, morbid obesity, irritable bowel syndrome, stage III c hronic kidney disease, mixed stress and urge incontinence, chronic pain syndrome, TIA. Patient presented 01/01 to our ED with complaint of progressive fluid retention along with worsening shortness of breath, denies fever and aspiration, reports compliance with home medication. Of note, patient was recently discharged from hospital after being treated for respiratory failure secondary to COPD exacerbation secondary to COVID-19 infection to rehab and then transitioned to home 1 week ago [employer]. Acute Metabolic Encephalopathy -POA Likely multifactorial: Hypercarbia,Uremia, Hyponatremia, Medications H/O COPD and sleep apnea and intolerance to CPAP and/or BiPAP Chronic Oxygen dependency: 3L at rest and 4L with activity at baseline Patient prefers no ventilation Continue dialysis as per Nephrology Titrate Oxygen to keep Sats 88-92% given H/O COPD Decrease Baclofen to 5mg daily Decrease Oxycodone to 10mg BID--Hold for excess sedation Monitor any withdrawal Continue BiPAP Family understands that patient is critical and has poor prognosis More alert, awake today Urgent care consulted to address goals of care Acute on chronic heart failure with preserved ejection fraction Possible cardiorenal syndrome Patient reports increasing bilateral lower extremity swelling prior to arrival --11/29 ECHO:Ejection fraction greater than 70%, hyperdynamic left ventricle with normal left ventricle size and normal left ventricular wall thickness. ? Med compliance Appreciate Cardiology, Nephrology Input Pt did not diuresis with IV Lasix . Continue with strict I's and O's, daily weights, fluid restriction Midodrine added for hypotension Volume status to be addressed with dialysis Permanent Catheter for HD placed on 01/10/22 Dialysis as per Nephrology Plan for dialysis tomorrow Patient still has significant volume overload Concern for HCAP UTI / CAUTI : Pt w/ bob at home (per patient after her last discharge), urine Cx +ve for ESBL UTI CXR: Concern for developing fibrosis versus infectious process CTAP and CT chest: Suggestive of post inflammatory fibrosis, urinary bladder wall thickening with perivesicular stranding/correlate with urinalysis. Patient started on ertapenem 01/02-->Meropenem 01/04. 01/04 MRSA negative. Will complete antibiotic course today STACY with CKD Baseline creatinine around 1.3-1.5 Cr 5.26>3.8>3.5>1.8 Appreciate nephrology recommendation on Dialysis currently Sleep apnea CPAP intolerant DM II ISS for now Monitor BGs Hypothyroidism Continue Levothyroxine H/O A. fib Afib RVR: Dofetilide discontinued Continue Coreg as able Not on anticoagulation, Xarelto was stopped in past because of history of hematochezia Continue to monitor Appreciate cardiology input and recommendation On Amiodarone 200mg daily Coreg currently being held due to low BP Dysphagia Aspiration Precautions Speech Eval completed Pureed diet COPD Sleep apnea Does not use any CPAP COPD remains stable Patient has declined Incruse Ellipta in the past, continue with home inhalers BiPAP as needed Chronic pain Patient reports multiple joint pains Continue with home medications. Anemia of chronic disease: Baseline hemoglobin 7-8 Monitor CBC Continue with iron supplementation DVT Px: SCDs Re: hx of GIB Code Status DNI/DNR: as per my discussion with patient and family Disposition: PT/OT prior to discharge Prognosis is guarded Admission and Anticipated Discharge Date Admission Date: January 02, 2022 Subjective Patient is seen and examined at bedside More alert, awake today Currently on BiPAP Poor oral intake Carvedilol held due to low BP Discussed with nephrology today Review of Systems Review of Systems: All systems reviewed & are unremarkable except as noted in Subjective Physical Exam Physical Exam: Physical Exam: Vitals signs as noted above General Appearance:Morbidly Obese, no apparent distress, ill appearing Head: normocephalic, Atraumatic Eyes: normal inspection, EOMI Neck: supple, Trachea midline Respiratory/Chest: Decreased breath sounds, basal crackles, No accessory muscle use Cardiovascular: S1, S2, No murmur Abdomen/GI:Soft, Non tender, Bowel sounds present Extremities/Musculoskeletal:normal inspection, B/L LE edema Neurologic/Psych:grossly no focal neurological deficits, + Drowsy Skin: normal color, warm Results & Data Results & Data ([facility]) Vital Signs (Past 12 Hours) Vital Signs Temp Pulse Pulse Pulse Resp BP BP 01/14/22 11:18 36.8 C 93 H 22 91/46 L 01/14/22 10:55 77 22 01/14/22 07:37 36.4 C L 77 22 100/47 L 01/14/22 07:12 76 24 01/14/22 03:39 36.7 C 75 22 147/83 H 01/14/22 03:27 73 18 Pulse Ox 01/14/22 11:18 93 01/14/22 10:55 95 01/14/22 07:37 93 01/14/22 07:12 94 01/14/22 03:39 93 01/14/22 03:27 92 Laboratory Results Short CBC 01/14/22 Range/Units 06:25 WBC 7.62 (4.8-10.8) K/uL Hgb 8.8 L (12.0-16.0) g/dL Hct 30.6 L (37-47) % Plt Count 189 (130-400) K/uL BMP 01/13/22 01/14/22 20:37 06:25 Sodium 137 137 Potassium 4.0 D 4.3 Chloride 100 101 Carbon Dioxide 32 29 BUN 9 11 Creatinine 1.74 H D 1.85 H Glucose 82 79 Calcium 8.0 L 8.3 L (1) Congestive heart failure Heart failure chronicity: acute Heart failure type: combined systolic and diastolic Qualified Code(s): I50.41 - Acute combined systolic (congestive) and diastolic (congestive) heart failure
[2022-01-14] MEDS: MEROPENEM 500 MG in SYRINGE 0 ML IV SCH (19:47)
[2022-01-15] MEDS: LEVOTHYROXINE SODIUM 125 MCG TABLET PO SCH ×2 (06:00→06:40)
[2022-01-15 06:56] LABS: BUN Creatinine Ratio 8.5 (10-20); Calcium 8.5 mg/dl (8.5-10.1); Creatinine Clr Calc Pharmacy 32.7 ml/min; Est GFR (African American) 27.6 ml/min; Est GFR (Non-African American) 23.8 ml/min; Potassium 4.1 mmol/L (3.5-5.1)
[2022-01-15] MEDS ORDERED: SODIUM CHLORIDE 0.9% 1000ML 1,000 ML IV PRN (07:26)
[2022-01-15] MEDS ORDERED: HEPARIN SOD (PORCINE) 1000 UNIT/ML IV ONE (07:26)
[2022-01-15] MEDS: ALBUTEROL HFA 8 GM INHALER INH PRN ×2 (07:27→10:53)
[2022-01-15] MEDS ORDERED: IRON SUCROSE 100 MG in SYRINGE 0 ML IV ONE (07:45)
[2022-01-15] MEDS ORDERED: EPOETIN ALFA 20,000 UNITS/ML VIAL IV ONE (08:00)
[2022-01-15] MEDS: INSULIN ASPART PER UNIT SC SCH ×4 (08:26→20:46)
[2022-01-15] MEDS: CYANOCOBALAMIN (B-12) 500 MCG TABLET PO SCH (08:37)
[2022-01-15] MEDS: ASCORBIC ACID 500 MG TAB PO SCH (08:38)
[2022-01-15] MEDS: FOLIC ACID 1 MG TAB PO SCH (08:38)
[2022-01-15] MEDS: BACLOFEN 10 MG TAB PO SCH (08:40)
[2022-01-15] MEDS: MIDODRINE HCL 2.5 MG TAB PO SCH ×3 (08:40→18:31)
[2022-01-15] MEDS: MULTIVITAMIN TAB PO SCH (08:41)
[2022-01-15] MEDS: FERROUS SULFATE 325 MG TAB PO SCH (08:42)
[2022-01-15] MEDS: AMIODARONE 200 MG TAB PO SCH ×2 (08:43→20:49)
--- NOTE | 2022-01-15 09:31 | Cardiology Progress Note ---
Date of Service January 15, 2022 Assessment & Plan (1) Tachycardia: (2) Paroxysmal atrial fibrillation: (3) Acute on chronic renal failure: (4) Long COVID: (5) Acute on chronic respiratory failure with hypoxia and hypercapnia: (6) Chronic hypotension: Plan: Patient continues to have brief non sustained runs of atrial tach vs atrial flutter ranging 120-130 bpm, converting spontaneously to NSR. NSR at time of evaluation this morning. Recommend repeat ECG with any recurrent tachycardia. Continue amiodarone 200 mg BID. Carvedilol has been on hold due to hypotension. If BP allows after dialysis, consider transitioning from carvedilol to oral metoprolol tartrate for ongoing rhythm control. She remains volume overloaded and fluid removal with dialysis recommended, per nephrology. Continue supplemental O2/BIPAP. Case discussed with Dr. Turner. Admission and Anticipated Discharge Date Admission Date: January 02, 2022 Supervising Physician Co-Signing Physician Notes Patient seen and examined the bedside. More alert today. Off BiPAP this morning. Tolerated her a.m. meal. Notes edema which is slowly improving. Scheduled for hemodialysis today. Telemetry reveals sinus rhythm. She received 2 doses of amiodarone since admission. Dofetilide discontinued due to renal insufficiency. Denies chest pain or palpitations. PE: VSS. Gen: NAD, AAO x3. Heart: Regular normal S1S2. distant heart sounds. Lungs: Diminished breath sounds bilateral, no rales, rhonchi, wheeze. Extremities: 1+ bilateral pedal edema. A/P: Agree with above PA-C history, physical exam, assessment and plan. Patient is scheduled for hemodialysis today. Consider transition of carvedilol to metoprolol putting blood pressure assessment postdialysis. Continue amiodarone for rhythm control strategy. Continue oxygen supplementation, BiPAP during sleep. Subjective Patient resting in bed comfortably. Off BIPAP currently. More awake/alert today compared to prior notes. Answering questions appropriately. Denies chest pain. SOB improving. Denies symptoms of palpitations or tachypalpitations. Edema still present. Review of Systems Review of Systems: All systems reviewed & are unremarkable except as noted in HPI & below Physical Exam Constitutional: + ill appearing and + morbidly obese Respiratory: normal respiratory effort, lungs clear to auscultation no respiratory distress Auscultation: + diminished lung sounds (Bilateral); no rales, no rhonchi and no wheezes Cardiovascular: Rate/Rhythm: regular rate and regular rhythm Heart Sounds: normal S1 and normal S2; no murmur Extremities: + edema (1+ bilateral pedal and ankle edema) Gastrointestinal (Abdomen): normal bowel sounds, soft, nontender, no hepatosplenomegaly Inspection/Auscultation: abdomen not distended Percussion/Palpation: abdomen soft; abdomen nontender, no guarding and abdomen not rigid Neurologic: PERRL, EOMI, accommodation nl, no face palsy, no dysarthria Psychiatric: A+Ox3, euthymic affect Results & Data ([facility]) Vital Signs (Past 12 Hours) Vital Signs Temp Pulse Pulse Pulse Resp BP Pulse Ox 01/15/22 07:12 36.4 C L 71 22 110/53 L 91 01/15/22 03:10 36.6 C 74 23 131/75 96 01/15/22 02:32 74 21 94 01/15/22 00:00 120 H 01/14/22 23:29 36.6 C 128 H 24 90/68 L 92 01/14/22 22:07 109 H 20 95 Laboratory Results 01/15/22 01/15/22 01/14/22 Range/Units 07:35 06:07 20:08 Sodium 138 (136-145) mmol/L Potassium 4.1 (3.5-5.1) mmol/L Chloride 102 (98-107) mmol/L Carbon Dioxide 29 (21-32) mmol/L Anion Gap 7 (3-11) BUN 17 (6-23) mg/dl Creatinine 2.00 H (0.6-1.2) mg/dl Est Cr Clr Drug Dosing 32.7 ml/min Est GFR ( Amer) 27.6 ml/min Est GFR (Non-Af Amer) 23.8 ml/min BUN/Creatinine Ratio 8.5 L (10-20) Glucose 81 (70-99(Fasting)) mg/dl POC Glucose 77 72 (70-99) mg/dl Calcium 8.5 (8.5-10.1) mg/dl 01/14/22 01/14/22 Range/Units 16:30 11:43 Sodium (136-145) mmol/L Potassium (3.5-5.1) mmol/L Chloride (98-107) mmol/L Carbon Dioxide (21-32) mmol/L Anion Gap (3-11) BUN (6-23) mg/dl Creatinine (0.6-1.2) mg/dl Est Cr Clr Drug Dosing ml/min Est GFR ( Amer) ml/min Est GFR (Non-Af Amer) ml/min BUN/Creatinine Ratio (10-20) Glucose (70-99(Fasting)) mg/dl POC Glucose 71 90 (70-99) mg/dl Calcium (8.5-10.1) mg/dl Diagnostic Findings Telemetry reviewed: Currently NSR at time of evaluation. Overnight, she had several episodes of non sustained atrial tach vs atrial flutter Medications Administered Current Inpatient Medications Acetaminophen (Acetaminophen 325 Mg Tab) 650 mg PO Q4H PRN PRN Reason: Pain or Fever Stop: 02/01/22 03:17 Last Admin: 01/05/22 01:12 Dose: 650 mg Documented by: Albuterol (Albuterol Hfa 8 Gm Inhaler) 2 puffs INH Q4 PRN PRN Reason: Wheezing Stop: 02/01/22 11:59 Last Admin: 01/15/22 07:27 Dose: 2 puffs Documented by: Amiodarone HCl (Amiodarone 200 Mg Tab) 200 mg PO BID YELITZA Stop: 02/13/22 20:59 Last Admin: 01/15/22 08:43 Dose: 200 mg Documented by: Ascorbic Acid (Ascorbic Acid 500 Mg Tab) 250 mg PO DAILY YELITZA Stop: 02/01/22 08:59 Last Admin: 01/15/22 08:38 Dose: 250 mg Documented by: Baclofen (Baclofen 10 Mg Tab) 5 mg PO QAM YELITZA Stop: 02/12/22 08:59 Last Admin: 01/15/22 08:40 Dose: 5 mg Documented by: Carvedilol (Carvedilol 12.5 Mg Tab) 12.5 mg PO BID YELITZA Stop: 02/03/22 20:59 Last Admin: 01/14/22 20:04 Dose: 12.5 mg Documented by: Cyanocobalamin (Cyanocobalamin (B-12) 500 Mcg Tablet) 500 mcg PO DAILY YELITZA Stop: 02/01/22 08:59 Last Admin: 01/15/22 08:37 Dose: 500 mcg Documented by: Dextrose (Dextrose 50% 50 Ml Syringe) 25 - 50 ml IV UD PRN; Protocol PRN Reason: Hypoglycemia Protocol Stop: 02/01/22 03:17 Diphenhydramine HCl (Diphenhydramine Capsule 25 Mg Cap) 25 mg PO DAILY PRN PRN Reason: Itching Stop: 02/03/22 15:29 Last Admin: 01/05/22 01:12 Dose: 25 mg Documented by: Ferrous Sulfate (Ferrous Sulfate 325 Mg Tab) 325 mg PO DAILY [facility] Stop: 02/01/22 08:59 Last Admin: 01/15/22 08:42 Dose: 325 mg Documented by: Folic Acid (Folic Acid 1 Mg Tab) 1 mg PO DAILY YELITZA Stop: 02/01/22 08:59 Last Admin: 01/15/22 08:38 Dose: 1 mg Documented by: Glucagon (Glucagon For Inj 1 Mg Vial) 1 mg SQ UD PRN; Protocol PRN Reason: Hypoglycemia Protocol Stop: 02/01/22 03:17 Glucose (Glucose 10 Tabs/Tube) 4 - 8 tabs PO UD PRN; Protocol PRN Reason: Hypoglycemia Protocol Stop: 02/01/22 03:17 Glucose (Glucose 40% Gel 15 Gm Tube) 15 - 30 gm PO UD PRN; Protocol PRN Reason: Hypoglycemia Protocol Stop: 02/01/22 03:17 Promethazine HCl 12.5 mg/ (Sodium Chloride) 50.5 mls @ 202 mls/hr IV Q6H PRN PRN Reason: Nausea And Vomiting Stop: 02/01/22 03:17 Last Infusion: 01/07/22 17:27 Dose: Infused Documented by: Sodium Chloride (Nss) 500 mls @ 15 mls/hr IV .Q24H [facility] Stop: 02/09/22 11:59 Last Admin: 01/14/22 13:48 Dose: 15 mls/hr Documented by: Sodium Chloride (Nss 1000ml) 1,000 mls @ 0 mls/hr IV .Q0M PRN PRN Reason: For Hemodialysis Use ONLY Stop: 01/15/22 13:25 Insulin Aspart (Insulin Aspart Per Unit) 0 units SC ACHS [facility] Stop: 02/01/22 03:17 Last Admin: 01/15/22 08:26 Dose: Not Given Documented by: Levothyroxine Sodium (Levothyroxine Sodium 125 Mcg Tablet) 125 mcg PO DAILYBB [facility] Stop: 02/01/22 06:29 Last Admin: 01/15/22 06:40 Dose: Not Given Documented by: Metoprolol Tartrate (Metoprolol Tartrate 1 Mg/Ml Vial) 5 mg IV Q6 PRN; Protocol PRN Reason: tachycardia Stop: 02/03/22 17:59 Last Admin: 01/04/22 15:57 Dose: 5 mg Documented by: Midodrine (Midodrine Hcl 2.5 Mg Tab) 2.5 mg PO TID@0800,1200,1700 YELITZA Stop: 02/05/22 11:59 Last Admin: 01/15/22 08:40 Dose: 2.5 mg Documented by: Miscellaneous (Carbohydrates For Hypoglycemia ) 15 - 30 gm PO UD PRN PRN Reason: Hypoglycemia Protocol Stop: 02/01/22 03:17 Last Admin: 01/03/22 11:08 Dose: 15 gm Documented by: Multivitamins (Multivitamin Tab) 1 tab PO DAILY YELITZA Stop: 02/01/22 08:59 Last Admin: 01/15/22 08:41 Dose: 1 tab Documented by: Oxycodone HCl (Oxycodone Hcl 10 Mg Tabcr (Oxycontin)) 10 mg PO BID [facility] Stop: 01/26/22 08:59 Last Admin: 01/14/22 20:05 Dose: Not Given Documented by: Oxycodone HCl (Oxycodone Hcl Ir 5 Mg Tab (Immediate Release)) 5 mg PO Q8H PRN PRN Reason: Pain Stop: 01/16/22 03:17 Pantoprazole Sodium (Pantoprazole 40 Mg Tab) 40 mg PO DAILY PRN PRN Reason: Abdominal Pain Stop: 02/01/22 03:17 Last Admin: 01/12/22 12:26 Dose: 40 mg Documented by: Polyethylene Glycol (Polyethylene (Miralax) 17 Gm Pack) 17 gm PO DAILY PRN PRN Reason: Constipation Stop: 02/02/22 10:56 Last Admin: 01/06/22 19:16 Dose: 17 gm Documented by:
[2022-01-15] MEDS: oxyCODONE HCL 10 MG TABCR (OxyCONTIN) PO SCH ×2 (10:14→20:16)
--- NOTE | 2022-01-15 10:24 | Nephrology Progress Note ---
Date of Service January 15, 2022 Assessment & Plan (1) Acute on chronic renal failure: Plan: Oligoanuric dialysis dependent ischemic ATN after several days of AF/F, tach ycardia, and hypotension and with pre-existing cardiorenal syndrome. Baseline creatinine is somewhat labile but runs generally to high ones. Her creatinine at d/c on 12/25 was 1.4; was 2 on admission. First day of dialysis January 10. Overall prognosis very poor; family speaks for patient at this time and wishes to continue current level of care Daily basic metabolic panel for dialysis today and follow daily for need; reminded her she may well need frequent/near daily dialysis until we can improve hemodynamic parameters and volume overload > will attempt up to 2.5L UF today >> has tolerated 2.3 L once in past week -Continue low-dose Midodrine (2) Electrolyte and fluid disorder: Plan: Profound volume overload\anasarca in the setting of lower blood pressures intermittently as low as the 80s to 90s systolic. Chemistries acceptable for now. Daily basic metabolic panel when taking po again, will need low sodium diet and fluid limit 1.2 L daily Strict intake and output to continue >volume status will only worsen if HR and rhythm, BP uncontrolled Admission and Anticipated Discharge Date Admission Date: January 02, 2022 Subjective seen on rounds 0730; awaiting swallow study, talking to family on phone; on 5L 02nc; no pain; c/o thick resp secretions; no n/v Review of Systems Review of Systems: All systems reviewed & are unremarkable except as noted in Subjective Physical Exam Constitutional: well developed, + morbidly obese, + frail appearing and + edematous; no acute distress Eyes: EOM intact bilaterally ENMT: Ears: no external ear abnormality Nose: no external nose abnormality Mouth: + dry oral mucous membranes Neck: no nuchal rigidity Respiratory: normal respiratory effort Auscultation: + diminished lung sounds Cardiovascular: Rate/Rhythm: regular rate and regular rhythm Extremities: + edema (3+ BLE pretibial and hips/ abd wall) Gastrointestinal (Abdomen): Inspection/Auscultation: normal bowel sounds Percussion/Palpation: abdomen soft; abdomen nontender Musculoskeletal: Extremities: + abnormal strength (Generalized weakness) Skin: no rashes, warm and dry early skin breakdown/scabbing on heels, on face; near TDC exit site Psychiatric: Orientation: oriented to person and oriented to place Genitourinary: bob w/ scant urine Results & Data ([facility]) Vital Signs (Past 12 Hours) Vital Signs Temp Pulse Pulse Pulse Resp BP Pulse Ox 01/15/22 07:12 36.4 C L 71 22 110/53 L 91 01/15/22 03:10 36.6 C 74 23 131/75 96 01/15/22 02:32 74 21 94 01/15/22 00:00 120 H 01/14/22 23:29 36.6 C 128 H 24 90/68 L 92 Laboratory Results 01/14/22 06:25 01/15/22 06:07
--- NOTE | 2022-01-15 12:00 | Electrocardiogram Report ---
Test Reason : Blood Pressure : / mmHG Vent. Rate : 072 BPM Atrial Rate : 072 BPM P-R Int : 200 ms QRS Dur : 078 ms QT Int : 420 ms P-R-T Axes : 078 -53 060 degrees QTc Int : 459 ms Normal sinus rhythm Indeterminate axis Low voltage QRS Poor R wave progression, consider anterior MN vs. lead placement vs. LVH Abnormal ECG When compared with ECG of 12-JAN-2022 16:31, QRS axis Shifted left Confirmed by Jack Fong ([id number]) on 01/15/2022 11:59:56 AM Referred By: REFERRED SELF Confirmed By:Jack Fong
--- NOTE | 2022-01-15 12:33 | Palliative Care Consultation ---
Date of Consultation January 15, 2022 Assessment & Plan (1) Palliative care encounter: Ms. Lissette Fierro (Peggy) is a 77 year old female who presented to the [facility] with fluid retention, SOB, later diagnosed as respiratory failure. She has a PMH that includes: CHF, CRS, ARF, CKD, COPD (3-4.5 L at home baseline O2 use), DM2, hypothyroidism, paroxysmal AFib, CKD. She was hypercapnic on admission and has been requiring BiPap; however, is currently compensated. She lives at home with her son, Baltazar, but has three adult sons that apparently share medical POA. Palliative Medicine was consulted to discuss overall goals of care. I was able to meet with Shirley who was sitting up in her hospital bed, putting pepper on her pureed lunch. She was AAOx3 and able to hold meaningful conversation with me which is new as of today. She, to this point, has been mostly lethargic. She was able to answer all questions appropriately and I stayed with her while she fed herself her own lunch. She described living with her son, Baylee ([phone]). She states that her sons have installed ramps and an electric recliner. She describes being able to walk with a walker on her own to the bathroom. She states she completes her own bills and financial business, and gets dressed independently. Apparently, Baylee does all of the grocery shopping, and takes her to her appointments. In talking with Shirley regarding her goals of care, I did discuss her code status. She confirmed she would not want to be intubated, nor receive CPR, or cardioversion/shocking in the event of cardiac/respiratory arrest. Pt confirmed DNR/DNI. 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. I did talk about what her goals would be if she would become dependent on Bipap and she indicated that she would not want to be kept alive on Bipap if she were unable to be weaned. She did express being comfortable with continuing hemodialysis at this point in time. Unfortunately, due to the nature of her illness there will likely become a time where she has an additional exacerbation, ad unfortunately, we are unable to cure the underlying issues, confirmed, that at that time, she would want to be kept comfortable and pass away with dignity at the end of her life. I did discuss SNF rehab with the patient and she said that she would be receptive to short term SNF if at specific facilities that she would be receptive to going to. Case management will follow along to arrange. I did reach out to her son Baylee to confirm the above and discuss further.Confirmed on the phone that he does have primary POA for medical decision making. He is in support with all of the above and is also receptive to her going to a SNF for short term rehab. I did set expectation that while I want to remain optimistic, there is a likelihood she may decline again. He is very realistic about the nature of her illness and is embracing her mental orientation for now. He expressed that they have talked before about what she would want done in certain scenarios, and she mentioned that she would not want life prolonging measures taken to keep her alive. POLST would be helpful prior to discharge. Palliative will follow. (2) Generalized weakness: Pt is working with PT/OT. Today, patient did sit at the bedside with OT. (3) Worsening renal function: Last HD on 01/10, due for HD today. Per discussion with patient, ok to continue HD for now. Current creatinine 2.00 Followed by Nephro. (4) Hypercapnia: Resolving as of today. Was on Bipap overnight. CPAP intolerant at home. Currently compensated on ABG. Current CO2 53, this may be her normal. (5) Dysphagia: Currently on pureed diet and tolerated today. She has been without nutrition for past few days due to BiPAP dependence. While I was in the room appeared to have control of eating utensil and no overt signs of aspiration; of course, could have silent aspiration. Was able to swallow oral pills today. 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 Will monitor her progress. (6) Lumbago: Pt with chronic back pain. Pt also has chronic knee and shoulder pain. She chronically takes Oxycontin 10 mg PO BID. The past two doses were held as she was lethargic. Also has Roxicodone 5 mg PO Q8 PRN and she has not utilized any doses over the past 24 hours. History of Present Illness Reason for Consultation: Goals of Care Requesting Physician: Dr. El Attending Physician: Alex El MD History of Present Illness Ms. Lissette Fierro (Peggy) is a 77 year old female who presented to the [facility] with fluid retention, SOB, later diagnosed as respiratory failure. She has a PMH that includes: CHF, CRS, ARF, CKD, COPD (3-4.5 L at home baseline O2 use), DM2, hypothyroidism, paroxysmal AFib, CKD. She was hypercapnic on admission and has been requiring BiPap; however, is currently compensated. She lives at home with her son, Baltazar, but has three adult sons that apparently share medical POA. Palliative Medicine was consulted to discuss overall goals of care. Please see A/P for further details. Thanks for involving Palliative Medicine with this individual. Allergies Allergy/AdvReac Type Severity Reaction Status Date / Time aspirin Allergy Severe HIVES, SOB Verified 01/02/22 00:45 Iodinated Contrast Media Allergy Severe "CAUSED Verified 01/02/22 00:45 ASTHMA ATTACK" & HIVES ipratropium Allergy Severe SHORTNESS Verified 01/02/22 00:45 OF BREATH metaproterenol [From Alupent] Allergy Severe EYES AND Verified 01/02/22 00:45 FACE SWELLING, SEVERE WHEEZING NSAIDS (Non-Steroidal Allergy Severe Hives Verified 01/02/22 00:45 Anti-Inflamma Penicillins Allergy Severe SOB, HIVES Verified 01/02/22 00:45 sotalol Allergy Severe increased Verified 01/02/22 00:45 breathing problems Sulfa (Sulfonamide Allergy Severe Anaphylaxis Verified 01/02/22 00:45 Antibiotics) tiotropium Allergy Severe SYMPTOMS Verified 01/02/22 00:45 [From Spiriva with GOT WORSE HandiHaler] INSTEAD OF BETTER WITH BREATHING arformoterol Allergy Intermediate TACHYCARDIA Verified 01/02/22 00:45 aspartame Allergy Intermediate HIVES, Verified 01/02/22 00:45 ITCHY ciprofloxacin Allergy Intermediate WHEEZING, Verified 01/02/22 00:45 NAUSEA clarithromycin [From Biaxin] Allergy Intermediate Unknown, ? Verified 01/02/22 00:45 WHEEZING , OR NAUSEA ? Fish Containing Products Allergy Intermediate BODY CAN'T Verified 01/02/22 00:45 ABSORB fish derived Allergy Intermediate Unknown Verified 01/02/22 00:45 latex Allergy Intermediate ITCHY/RASH Verified 01/02/22 00:45 nickel Allergy Intermediate RASH & Verified 01/02/22 00:46 BLISTERS pioglitazone [From Actos] Allergy Intermediate RETAINED Verified 01/02/22 00:46 FLUID povidone Allergy Intermediate BLISTER Verified 01/02/22 00:46 WITH TAPE shellfish derived Allergy Intermediate BODY CAN'T Verified 01/02/22 00:46 ABSORB, "SMELL LIKE A FISH" stevioside [From Stevia] Allergy Intermediate Wheezing Verified 01/02/22 00:46 sucralose Allergy Intermediate Wheezing Verified 01/02/22 00:46 [From Splenda (sucralose)] adhesive Allergy Mild BLISTERS Verified 01/02/22 00:46 WITH TAPE apixaban [From Eliquis] Allergy Mild SEE NOTES Verified 01/02/22 00:46 BELOW banana Allergy Mild "FEELS Verified 01/02/22 00:46 LIKE PEACH FUZZ IN MOUTH" chlorhexidine Allergy Mild BLISTERY Verified 01/02/22 00:46 RASH clindamycin Allergy Mild rash Verified 01/02/22 00:46 doxycycline Allergy Mild rash Verified 01/02/22 00:46 psyllium [From Metamucil] AdvReac Intermediate bloating Verified 01/02/22 00:46 meperidine AdvReac Mild Gastrointestinal Verified 01/02/22 00:46 Upset, N/V metformin [From Riomet] AdvReac Mild DIARRHEA Verified 01/02/22 00:46 WITH MORE THAN 1 A DAY morphine AdvReac Mild Gastrointestinal Verified 01/02/22 00:46 Upset,N/V tapentadol [From Nucynta] AdvReac Mild Nausea and Verified 01/02/22 00:46 vomiting egg AdvReac Unknown Unknown Verified 01/13/22 14:14 Egg Derived AdvReac Unknown Unknown Verified 01/13/22 14:14 soy AdvReac Unknown Unknown Verified 01/13/22 14:14 soybean AdvReac Unknown Unknown Verified 01/13/22 14:14 Home Medications Medication Instructions Recorded Confirmed Type baclofen 10 mg tablet 5 mg PO BID 09/12/20 01/02/22 History cholecalciferol (vitamin D3) 25 25 mcg PO DAILY 09/12/20 01/02/22 History mcg (1,000 unit) capsule conjugated estrogens 0.625 mg/gram 0.625 mg VAGINAL 3XWK 09/12/20 01/02/22 History vaginal cream (Premarin) cyanocobalamin (vitamin B-12) 500 500 mcg PO DAILY 09/12/20 01/02/22 History mcg tablet dofetilide 250 mcg capsule 250 mcg PO BID 09/12/20 01/02/22 History hydrocortisone 2.5 % topical cream 1 applic FL BID PRN 09/12/20 01/02/22 History with perineal applicator (Proctosol HC) meclizine 25 mg tablet 25 mg PO Q8H PRN 09/12/20 01/02/22 History metformin 500 mg tablet,extended 500 mg PO QPM 09/12/20 01/02/22 History release 24 hr multivitamin 1 tab PO DAILY 09/12/20 01/02/22 History potassium chloride 10 mEq 10 meq PO QAM 09/12/20 01/02/22 History tablet,extended release spironolactone 25 mg tablet 12.5 mg PO 3XWK 09/12/20 01/02/22 History torsemide 10 mg tablet 10 mg PO QAM 09/12/20 01/02/22 History acetaminophen 650 mg 650 mg PO UD PRN 09/28/20 01/02/22 History tablet,extended release (Tylenol 8 Hour) diclofenac sodium 2 % topical 1 packet TOPICAL UD PRN 09/28/20 01/02/22 History solution in packet magnesium 200 mg tablet 600 mg PO DAILY 09/28/20 01/02/22 History ondansetron HCl 4 mg tablet 4 mg PO Q8H PRN 09/28/20 01/02/22 History polyethylene glycol 3350 17 gram 17 g PO QAM PRN 09/28/20 01/02/22 History oral powder packet (Miralax) ferrous fumarate-vitamin C 200 mg 1 tab PO DAILY 03/01/21 01/02/22 History (66 mg iron)-125 mg tablet folic acid 1 mg tablet 1 mg PO DAILY 03/01/21 01/02/22 History nebulizers #1 ea 05/11/21 11/08/21 Rx albuterol sulfate 2.5 mg INHALATION Q4H PRN #180 ml 09/27/21 01/02/22 Rx benzonatate 100 mg capsule 100 mg PO TID PRN 11/08/21 01/02/22 History carvedilol 3.125 mg tablet 9.375 mg PO BID #180 tab 11/20/21 01/02/22 Rx levothyroxine 125 mcg tablet 125 mcg PO DAILYBB #30 tab 11/20/21 01/02/22 Rx (Synthroid) mupirocin 2 % topical ointment 1 applic TOPICAL BID PRN 11/28/21 01/02/22 History oxycodone 10 mg tablet 10 mg PO Q6H PRN 3 Days #10 tab 12/07/21 01/02/22 Rx oxycodone 20 mg tablet,crush 20 mg PO BID 01/02/22 01/02/22 History resistant,extended release 12 hr (OxyContin) pantoprazole 40 mg tablet,delayed 40 mg PO DAILY PRN 01/02/22 01/02/22 History release albuterol sulfate 90 mcg/actuation 2 inh INHALATION Q6H PRN #3 inhaler 01/10/22 Rx aerosol inhaler Patient History Medical History (Updated 01/15/22 @ 13:43 by ESTELA Madden) Asthma USED RESCUE INHALER LAST WEEKEND Back problem 3 DISCS PUSHING ON SCIATIC NERVE PER PT>CAUSES R LEG NUMBNESS AT TIMES LYING FLAT FOR EXTENDED TIME WILL CAUSE LEGS TO JUMP Chronic anticoagulation Chronic diastolic CHF (congestive heart failure) Chronic low blood pressure Chronic respiratory failure with hypoxia CKD (chronic kidney disease), stage III COPD (chronic obstructive pulmonary disease) Cor pulmonale, chronic Cushingoid side effect of steroids DM type 2 (diabetes mellitus, type 2) Dyslipidemia Dysphagia History of Meniere's disease History of TIA (transient ischemic attack) ? NEVER CONFIRMED (PT DOES NOT THINK SHE HAD TIA) Hx of vertigo Hypercapnia Hypothyroidism Impingement syndrome of both shoulders Long COVID Lumbago ZEYAD (obstructive sleep apnea) WEARS 3-4L CONT. Osteoarthritis Oxygen dependent 3-4L CONT. NC Palliative care encounter Paroxysmal atrial fibrillation REASON FOR XARELTO Reversed peristalsis Surgical History Family history of reaction to anesthesia SISTER-LOW BLOOD PRESSURE H/O arthroscopic knee surgery RIGHT History of anesthesia reaction BLOOD PRESSURE DROPPED WITH COLONOSCOPY AND GALLBLADDER SURGERY AND SENSITIVE GAG REFLEX History of appendectomy History of cataract surgery RT/LEFT History of cholecystectomy History of colonoscopy History of hysterectomy Family History Father Lung cancer Asthma Mother Diabetes Heart disease Brother Colon cancer Family history of colonic polyps Daughter No problems noted. Brother Stroke Sister Diabetes Sister Diabetes Son Diabetes Social History Smoking Status: Never smoker Second Hand Exposure: No; Hx Alcohol Use: No Hx Substance Use: No Preferred Language: Niuean Communication Ability: Effective Supervisor Small Appliance Assembly Required: No Beliefs That Will Affect Care: None marital status: Current Living Situation: Family Current Living Situation Comment: lives with son How many Children do You have: 3 Other Information That Helps Us Care for You: No Feels Safe at Home: Yes Safety Concerns: Feels Safe At This Time Assistive Devices: Oxygen - Continuous Review of Systems Review of Systems: [place] System Assessment Scale: Pain: 1/3 Nausea: 0/3 SOB: 1/3 Tiredness: 1/3 Lack of Appetite: 0/3 Palliative Performance Scale: 50% Physical Exam Constitutional: + ill appearing, + frail appearing and cooperative Neck: normal visual inspection and + short neck Respiratory: + uses accessory muscles (diaphragmatic breathing) Cardiovascular: Rate/Rhythm: regular rate and regular rhythm Heart Sounds: normal S1 and normal S2 Extremities: normal capillary refill Gastrointestinal (Abdomen): Inspection/Auscultation: abdomen normal to inspection Skin: + ecchymosis and + pallor Psychiatric: Orientation: alert, oriented x 3 and cooperative Insight: good insight Judgement: good judgement Results & Data ([facility]) Vital Signs (Past 12 Hours) Vital Signs Temp Pulse Pulse Pulse Resp BP Pulse Ox 01/15/22 11:16 36.7 C 68 22 123/75 92 01/15/22 07:12 36.4 C L 71 22 110/53 L 91 01/15/22 03:10 36.6 C 74 23 131/75 96 01/15/22 02:32 74 21 94 PG Care Time/CCT Total # of Minutes Spent Total Time Spent with Patient: Total time spent is greater than 50% in coordination of care (as documented) at patient's floor/unit and/or counseling patient: 100 minutes Coding Level of Care Code 27217 Initial Inpt Care Lvl 3 Diagnoses Palliative care encounter Z51.5 Generalized weakness R53.1 Worsening renal function N28.9 Hypercapnia R06.89 Dysphagia R13.10 Lumbago M54.50 Time Spent (min) 100
--- NOTE | 2022-01-15 15:49 | Hospitalist Progress Note ---
Date of Service January 15, 2022 Assessment & Plan (1) History of noncompliance with medical treatment: (2) Congestive heart failure: (3) Leg edema: Plan: Patient is a 76 yr female with H/O DM II, hypothyroidism, hyperlipidemia, COPD, on chronic oxygen baseline 3 liters oxygen, sleep apnea not on CPAP - intolerant as per the patient, paroxysmal atrial fibrillation, cor pulmonale, chronic essential hypertension, morbid obesity, irritable bowel syndrome, stage III c hronic kidney disease, mixed stress and urge incontinence, chronic pain syndrome, TIA. Patient presented 01/01 to our ED with complaint of progressive fluid retention along with worsening shortness of breath, denies fever and aspiration, reports compliance with home medication. 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 Acute Metabolic Encephalopathy -POA Likely multifactorial: Hypercarbia,Uremia, Hyponatremia, Medications H/O COPD and sleep apnea and intolerance to CPAP and/or BiPAP Chronic Oxygen dependency: 3L at rest and 4L with activity at baseline Patient prefers no ventilation Continue dialysis as per Nephrology Titrate Oxygen to keep Sats 88-92% given H/O COPD Decrease Baclofen to 5mg daily Decrease Oxycodone to 10mg BID--Hold for excess sedation Monitor any withdrawal Continue BiPAP as needed Family understands that patient is critical and has poor prognosis Appreciate Palliative Care Input Mental status Improved Acute on chronic heart failure with preserved ejection fraction Possible cardiorenal syndrome Patient reports increasing bilateral lower extremity swelling prior to arrival --11/29 ECHO:Ejection fraction greater than 70%, hyperdynamic left ventricle with normal left ventricle size and normal left ventricular wall thickness. ? Med compliance Appreciate Cardiology, Nephrology Input Pt did not diuresis with IV Lasix . Continue with strict I's and O's, daily weights, fluid restriction Midodrine added for hypotension Volume status to be addressed with dialysis Permanent Catheter for HD placed on 01/10/22 Dialysis as per Nephrology Continue fluid restriction Plan for dialysis today Concern for HCAP UTI / CAUTI : Pt w/ bob at home (per patient after her last discharge), urine Cx +ve for ESBL UTI CXR: Concern for developing fibrosis versus infectious process CTAP and CT chest: Suggestive of post inflammatory fibrosis, urinary bladder wall thickening with perivesicular stranding/correlate with urinalysis. Patient started on ertapenem 01/02-->Meropenem 01/04. 01/04 MRSA negative. Completed antibiotic course STACY with CKD Baseline creatinine around 1.3-1.5 Cr 5.26>3.8>3.5>1.8 Appreciate nephrology recommendation on Dialysis currently Sleep apnea CPAP intolerant DM II ISS for now Monitor BGs Hypothyroidism Continue Levothyroxine H/O A. fib Afib RVR: Dofetilide discontinued Continue Coreg as able Not on anticoagulation, Xarelto was stopped in past because of history of hematochezia Continue to monitor Appreciate cardiology input and recommendation On Amiodarone 200mg daily Plan to transition Coreg to Metoprolol if BP tolerates Dysphagia Aspiration Precautions Speech Eval completed Pureed diet COPD Sleep apnea Does not use any CPAP COPD remains stable Patient has declined Incruse Ellipta in the past, continue with home inhalers BiPAP as needed Chronic pain Patient reports multiple joint pains Continue with home meds Anemia of chronic disease: Baseline hemoglobin 7-8 Monitor CBC Continue with iron supplementation Received Epo, Venofer DVT Px: SCDs Re: hx of GIB Code Status DNI/DNR: as per my discussion with patient and family Disposition: PT/OT prior to discharge Prognosis is guarded Admission and Anticipated Discharge Date Admission Date: January 02, 2022 Subjective Patient is seen and examined at bedside States feeling better today Back pain is controlled Having breakfast during my encounter Currently on 5L Oxygen Planned for HD today Denies chest pain, dyspnea, dizziness, nausea, abd pain Review of Systems Review of Systems: All systems reviewed & are unremarkable except as noted in Subjective Physical Exam Physical Exam: Physical Exam: Vitals signs as noted above General Appearance:Morbidly Obese, no apparent distress, ill appearing Head: normocephalic, Atraumatic Eyes: normal inspection, EOMI Neck: supple, Trachea midline Respiratory/Chest: Decreased breath sounds, basal crackles, No accessory muscle use Cardiovascular: S1, S2, No murmur Abdomen/GI:Soft, Non tender, Bowel sounds present Extremities/Musculoskeletal:normal inspection, B/L LE edema Neurologic/Psych:grossly no focal neurological deficits, + Drowsy Skin: normal color, warm Results & Data Results & Data ([facility]) Vital Signs (Past 12 Hours) Vital Signs Temp Pulse Pulse Pulse Resp BP BP 01/15/22 15:00 70 110/65 01/15/22 14:45 70 119/61 01/15/22 14:30 70 106/53 L 01/15/22 14:15 65 106/74 01/15/22 14:00 65 110/67 01/15/22 13:52 65 99/52 L 01/15/22 13:40 36.4 C L 67 01/15/22 11:16 36.7 C 68 22 123/75 01/15/22 07:12 36.4 C L 71 22 110/53 L Pulse Ox 01/15/22 15:00 01/15/22 14:45 01/15/22 14:30 01/15/22 14:15 01/15/22 14:00 01/15/22 13:52 01/15/22 13:40 01/15/22 11:16 92 01/15/22 07:12 91 Laboratory Results BMP 01/15/22 06:07 Sodium 138 Potassium 4.1 Chloride 102 Carbon Dioxide 29 BUN 17 Creatinine 2.00 H Glucose 81 Calcium 8.5 (1) Congestive heart failure Heart failure chronicity: acute Heart failure type: combined systolic and diastolic Qualified Code(s): I50.41 - Acute combined systolic (congestive) and diastolic (congestive) heart failure
[2022-01-15] MEDS: HEPARIN SOD (PORCINE) 1000 UNIT/ML IV SCH (15:53)
[2022-01-16] MEDS ORDERED: ALBUMIN 25% 100 mL 25 GM/100 ML VIAL IV ONE (00:04)
[2022-01-16] MEDS ORDERED: MIDODRINE HCL 2.5 MG TAB PO STA ×2 (00:05→01:29)
[2022-01-16] MEDS ORDERED: METOPROLOL TARTRATE 1 MG/ML VIAL IV STA (00:19)
[2022-01-16 00:42] LABS: Basophils # (auto) 0.01 K/uL (0-0.2); Basophils % (auto) 0.1 %; Eosinophils # (auto) 0.21 K/uL (0-0.5); Eosinophils % (auto) 2.4 %; Hematocrit (blood only) 29.6 % (37-47); Hemoglobin 8.6 g/dL (12.0-16.0); Immature Granulocytes # (auto) 0.05 K/uL (0.00-0.02); Immature Granulocytes % (auto) 0.6 %; Lymphocytes # (auto) 1.39 K/uL (1.2-3.4); Lymphocytes % (auto) 15.7 %; Mean Corpuscular Hemoglobin 25.5 pg (25-34); Mean Corpuscular Hgb Conc 29.1 g/dL (32-36); Mean Corpuscular Volume 87.8 fL (80-100); Mean Platelet Volume 9.4 fL (7.4-10.4); Monocytes # (auto) 1.05 K/uL (0.11-0.59); Monocytes % (auto) 11.9 %; Neutrophils # (auto) 6.13 K/uL (1.4-6.5); Neutrophils % (auto) 69.3 %; Platelet Count 166 K/uL (130-400); RDW Coefficient of Variation 23.2 % (11.5-14.5); RDW Standard Deviation 74.5 fL (36.4-46.3); Red Blood Count 3.37 M/uL (4.2-5.4); White Blood Count 8.84 K/uL (4.8-10.8)
[2022-01-16 01:15] LABS: Anisocytosis Present; Polychromasia 1+
[2022-01-16 01:17] LABS: BUN Creatinine Ratio 6.4 (10-20); Calcium 8.1 mg/dl (8.5-10.1); Creatinine Clr Calc Pharmacy 46.8 ml/min; Est GFR (African American) 42.5 ml/min; Est GFR (Non-African American) 36.7 ml/min; Magnesium 1.8 mg/dl (1.7-2.4); Potassium 4.3 mmol/L (3.5-5.1)
[2022-01-16] MEDS ORDERED: MAGNESIUM SULFATE / D5W 1 GM/100 ML BAG IV ONE (01:29)
[2022-01-16] MEDS ORDERED: AMIODARONE / D5W 150 MG/100 ML BAG IV STA (01:30)
[2022-01-16] MEDS ORDERED: 0.2 MICRON FILTER SET 1 EA IV ONE (01:30)
[2022-01-16] MEDS ORDERED: dexAMETHasone 4 MG in SYRINGE 0 ML IV ONE (02:45)
[2022-01-16] MEDS: LEVOTHYROXINE SODIUM 125 MCG TABLET PO SCH (06:12)
[2022-01-16] MEDS ORDERED: HEPARIN SOD (PORCINE) 1000 UNIT/ML IV ONE (08:58)
[2022-01-16] MEDS ORDERED: SODIUM CHLORIDE 0.9% 1000ML 1,000 ML IV PRN (08:58)
[2022-01-16] MEDS ORDERED: ALBUMIN 25% 12.5 GM/50 ML VIAL IV ONE ×2 (09:00→10:00)
[2022-01-16] MEDS: SODIUM CHLORIDE 0.9% 500 ML IV SCH (09:09)
[2022-01-16] MEDS: INSULIN ASPART PER UNIT SC SCH ×4 (09:10→21:15)
[2022-01-16] MEDS: MIDODRINE HCL 2.5 MG TAB PO SCH ×3 (09:11→17:28)
[2022-01-16] MEDS: ALBUTEROL HFA 8 GM INHALER INH PRN (09:25)
[2022-01-16] MEDS: oxyCODONE HCL 10 MG TABCR (OxyCONTIN) PO SCH ×2 (10:01→21:19)
[2022-01-16] MEDS: ASCORBIC ACID 500 MG TAB PO SCH (10:01)
[2022-01-16] MEDS: FOLIC ACID 1 MG TAB PO SCH (10:01)
[2022-01-16] MEDS: FERROUS SULFATE 325 MG TAB PO SCH (10:01)
[2022-01-16] MEDS: BACLOFEN 10 MG TAB PO SCH (10:02)
[2022-01-16] MEDS: AMIODARONE 200 MG TAB PO SCH ×2 (10:02→21:19)
[2022-01-16] MEDS: MULTIVITAMIN TAB PO SCH (10:02)
[2022-01-16] MEDS: CYANOCOBALAMIN (B-12) 500 MCG TABLET PO SCH (10:03)
--- NOTE | 2022-01-16 12:22 | Palliative Care Progress Note ---
Date of Service January 16, 2022 Assessment & Plan (1) Palliative care encounter: Plan: Followed up with patient today. Patient remains interactive and oriented; however, slightly more groggy due to pain medication administration. Goal is to proceed with short term SNF rehab at [facility]. Patient was transitioned to a DNR yesterday. She does recognize that her condition is unlikely to improve much further, it appears she is quite optimized with her care. I did complete a POLST form, as outlined below. (2) Generalized weakness: Plan: Pt is working with PT/OT. Planned for SNF rehab. (3) Worsening renal function: Plan: Last HD on 01/10, due for HD today. Per discussion with patient, ok to continue HD for now. Current creatinine 2.00 Followed by Nephro. (4) Hypercapnia: Plan: Resolving as of today. Was on Bipap overnight. CPAP intolerant at home. Currently compensated on ABG. Current CO2 53, this may be her normal. (5) Dysphagia: Plan: Currently on pureed diet and tolerated today. She has been without nutrition for past few days due to BiPAP dependence. While I was in the room appeared to have control of eating utensil and no overt signs of aspiration; of course, could have silent aspiration. Was able to swallow oral pills today. Discussed with HOT SAW HELPER yesterday- due to patient appearing optimal today; would avoid any changes to her diet consistency at this time. Will monitor her progress. (6) Lumbago: Plan: Pt with chronic back pain. Pt also has chronic knee and shoulder pain. Also has Roxicodone 5 mg PO Q8 PRN and she has not utilized any doses over the past 24 hours. (7) POLST (Physician Orders for Life-Sustaining Treatment): Plan: POLST completed and original and copy placed on the chart. 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 She was finishing up a call with her son on her cell phone. Pt remains AAOx3, slightly more lethargic than yesterday, but oriented. Plan for SNF placement in [place], prior to returning home with her son. Review of Systems Review of Systems: [place] System Assessment Scale: Pain: 1/3 Nausea: 0/3 SOB: 1/3 Tiredness: 1/3 Lack of Appetite: 0/3 Palliative Performance Scale: 50% Physical Exam Constitutional: + ill appearing, + frail appearing and cooperative Neck: normal visual inspection and + short neck Respiratory: + uses accessory muscles (diaphragmatic breathing) Cardiovascular: Rate/Rhythm: regular rate and regular rhythm Heart Sounds: normal S1 and normal S2 Extremities: normal capillary refill Gastrointestinal (Abdomen): Inspection/Auscultation: abdomen normal to inspection Skin: + ecchymosis and + pallor Psychiatric: Orientation: alert, oriented x 3 and cooperative Insight: good insight Judgement: good judgement Results & Data ([facility]) Vital Signs (Past 12 Hours) Vital Signs Temp Pulse Pulse Resp BP BP BP 01/16/22 12:00 66 110/52 L 01/16/22 11:30 67 114/62 01/16/22 11:05 37.4 C 68 21 114/62 01/16/22 11:00 63 136/59 L 01/16/22 10:50 36.8 C 66 01/16/22 07:17 36.9 C 67 19 92/49 L 01/16/22 01:27 66/39 L 01/16/22 01:02 126 H 110/45 L 01/16/22 01:01 110/45 L 01/16/22 00:32 36.7 C 135 H 18 101/56 L Pulse Ox 01/16/22 12:00 01/16/22 11:30 01/16/22 11:05 97 01/16/22 11:00 01/16/22 10:50 01/16/22 07:17 98 01/16/22 01:27 01/16/22 01:02 01/16/22 01:01 01/16/22 00:32 PG Care Time/CCT Total # of Minutes Spent Total Time Spent with Patient: Total time spent is greater than 50% in coordination of care (as documented) at patient's floor/unit and/or counseling patient: 35 minutes Coding Level of Care Code 50112 Subseq Hosp Care Lvl 3 Diagnoses Palliative care encounter Z51.5 Generalized weakness R53.1 Worsening renal function N28.9 Hypercapnia R06.89 Dysphagia R13.10 Lumbago M54.50 POLST (Physician Orders for Life-Sustaining Treatment) Z78.9 Time Spent (min) 35
--- NOTE | 2022-01-16 12:51 | Cardiology Progress Note ---
Date of Service January 16, 2022 Assessment & Plan (1) Tachycardia: (2) Paroxysmal atrial fibrillation: (3) Acute on chronic renal failure: (4) Long COVID: (5) Acute on chronic respiratory failure with hypoxia and hypercapnia: (6) Chronic hypotension: Plan: Episodes of atrial fibrillation RVR improving. one recurrent episode overnight lasting about 3 hours during sleep. She has been intolerant of CPAP in the past, but likely ZEYAD and respiratory failure contributing. Currently NSR. Continue amiodarone 200 mg BID. Carvedilol has been on hold due to hypotension. Could consider low dose metoprolol if BP remains > 100 with dialysis. She remains volume overloaded and fluid removal with dialysis recommended, per nephrology. Her creatinine has improved as well. Continue supplemental O2/BIPAP. She is not on anticoagulation therapy due to past GI bleeding issues. Case discussed with Dr. Turner. Admission and Anticipated Discharge Date Admission Date: January 02, 2022 Supervising Physician Co-Signing Physician Notes Patient seen and examined the bedside. She is more alert today. Remains hypotensive without symptoms. Denies chest pain or shortness of breath. Remains in sinus rhythm. No recurrent atrial fibrillation. Edema improved per additional 2.5 L removed on dialysis today. PE: VSS. Gen: NAD, AAO x3. Heart: Regular normal S1S2. distant heart sounds. Lungs: Diminished breath sounds bilateral, no rales, rhonchi, wheeze. Extremities: 1+ bilateral pedal edema. A/P: Agree with above PA-C history, physical exam, assessment and plan. Continue to maintain negative fluid balance via hemodialysis as blood pressure tolerates. Oral amiodarone for rhythm control. Supportive care as per internal medicine. BiPAP during sleep. Subjective Patient resting in bed comfortably. No chest pain. SOB improved over the last few days as volume status improves. She is going for dialysis today per nursing staff. No chest pain. Had 3 hours of afib overnight during presumed sleep. Intolerant of CPAP in the past. Currently NSR. Review of Systems Review of Systems: Review of Systems: See HPI for pertinent positives. All other 10 point review of systems are negative. Physical Exam Constitutional: + ill appearing and + morbidly obese Respiratory: normal respiratory effort, lungs clear to auscultation no respiratory distress Auscultation: + diminished lung sounds (Bilateral); no rales, no rhonchi and no wheezes Cardiovascular: Rate/Rhythm: regular rate and regular rhythm Heart Sounds: normal S1 and normal S2; no murmur Extremities: + edema (1+ bilateral pedal and ankle edema) Gastrointestinal (Abdomen): normal bowel sounds, soft, nontender, no hepatosplenomegaly Inspection/Auscultation: abdomen not distended Percussion/Palpation: abdomen soft; abdomen nontender, no guarding and abdomen not rigid Neurologic: PERRL, EOMI, accommodation nl, no face palsy, no dysarthria Psychiatric: A+Ox3, euthymic affect Results & Data ([facility]) Vital Signs (Past 12 Hours) Vital Signs Temp Pulse Pulse Resp BP BP BP 01/16/22 12:30 69 104/63 01/16/22 12:00 66 110/52 L 01/16/22 11:30 67 114/62 01/16/22 11:05 37.4 C 68 21 114/62 01/16/22 11:00 63 136/59 L 01/16/22 10:50 36.8 C 66 01/16/22 07:17 36.9 C 67 19 92/49 L 01/16/22 01:27 66/39 L 01/16/22 01:02 126 H 110/45 L 01/16/22 01:01 110/45 L Pulse Ox 01/16/22 12:30 01/16/22 12:00 01/16/22 11:30 01/16/22 11:05 97 01/16/22 11:00 01/16/22 10:50 01/16/22 07:17 98 01/16/22 01:27 01/16/22 01:02 01/16/22 01:01 Laboratory Results 01/16/22 01/16/22 01/16/22 Range/Units 11:13 07:14 00:27 WBC (4.8-10.8) K/uL RBC (4.2-5.4) M/uL Hgb (12.0-16.0) g/dL Hct (37-47) % MCV (80-100) fL MCH (25-34) pg MCHC (32-36) g/dL RDW Std Deviation (36.4-46.3) fL RDW Coeff of [place] (11.5-14.5) % Plt Count (130-400) K/uL MPV (7.4-10.4) fL Immature Gran % (Auto) % Neut % (Auto) % Lymph % (Auto) % [place] % (Auto) % Eos % (Auto) % Baso % (Auto) % Neut # (Auto) (1.4-6.5) K/uL Lymph # (Auto) (1.2-3.4) K/uL [place] # (Auto) (0.11-0.59) K/uL Eos # (Auto) (0-0.5) K/uL Baso # (Auto) (0-0.2) K/uL Immature Gran # (Auto) (0.00-0.02) K/uL Polychromasia Anisocytosis Sodium (136-145) mmol/L Potassium (3.5-5.1) mmol/L Chloride (98-107) mmol/L Carbon Dioxide (21-32) mmol/L Anion Gap (3-11) BUN (6-23) mg/dl Creatinine (0.6-1.2) mg/dl Est Cr Clr Drug Dosing ml/min Est GFR ( Amer) ml/min Est GFR (Non-Af Amer) ml/min BUN/Creatinine Ratio (10-20) Glucose (70-99(Fasting)) mg/dl POC Glucose 134 H 122 H (70-99) mg/dl Lactate 0.6 (0.4-2.0) mmol/L Calcium (8.5-10.1) mg/dl Magnesium (1.7-2.4) mg/dl 01/16/22 01/16/22 01/15/22 Range/Units 00:27 00:27 20:14 WBC 8.84 (4.8-10.8) K/uL RBC 3.37 L (4.2-5.4) M/uL Hgb 8.6 L (12.0-16.0) g/dL Hct 29.6 L (37-47) % MCV 87.8 (80-100) fL MCH 25.5 (25-34) pg MCHC 29.1 L (32-36) g/dL RDW Std Deviation 74.5 H (36.4-46.3) fL RDW Coeff of [place] 23.2 H (11.5-14.5) % Plt Count 166 (130-400) K/uL MPV 9.4 (7.4-10.4) fL Immature Gran % (Auto) 0.6 % Neut % (Auto) 69.3 % Lymph % (Auto) 15.7 % [place] % (Auto) 11.9 % Eos % (Auto) 2.4 % Baso % (Auto) 0.1 % Neut # (Auto) 6.13 (1.4-6.5) K/uL Lymph # (Auto) 1.39 (1.2-3.4) K/uL [place] # (Auto) 1.05 H (0.11-0.59) K/uL Eos # (Auto) 0.21 (0-0.5) K/uL Baso # (Auto) 0.01 (0-0.2) K/uL Immature Gran # (Auto) 0.05 H (0.00-0.02) K/uL Polychromasia 1+ Anisocytosis Present Sodium 138 (136-145) mmol/L Potassium 4.3 (3.5-5.1) mmol/L Chloride 102 (98-107) mmol/L Carbon Dioxide 31 (21-32) mmol/L Anion Gap 5 (3-11) BUN 9 (6-23) mg/dl Creatinine 1.40 H D (0.6-1.2) mg/dl Est Cr Clr Drug Dosing 46.8 ml/min Est GFR ( Amer) 42.5 ml/min Est GFR (Non-Af Amer) 36.7 ml/min BUN/Creatinine Ratio 6.4 L (10-20) Glucose 95 (70-99(Fasting)) mg/dl POC Glucose 111 H (70-99) mg/dl Lactate (0.4-2.0) mmol/L Calcium 8.1 L (8.5-10.1) mg/dl Magnesium 1.8 (1.7-2.4) mg/dl 01/15/22 Range/Units 18:08 WBC (4.8-10.8) K/uL RBC (4.2-5.4) M/uL Hgb (12.0-16.0) g/dL Hct (37-47) % MCV (80-100) fL MCH (25-34) pg MCHC (32-36) g/dL RDW Std Deviation (36.4-46.3) fL RDW Coeff of [place] (11.5-14.5) % Plt Count (130-400) K/uL MPV (7.4-10.4) fL Immature Gran % (Auto) % Neut % (Auto) % Lymph % (Auto) % [place] % (Auto) % Eos % (Auto) % Baso % (Auto) % Neut # (Auto) (1.4-6.5) K/uL Lymph # (Auto) (1.2-3.4) K/uL [place] # (Auto) (0.11-0.59) K/uL Eos # (Auto) (0-0.5) K/uL Baso # (Auto) (0-0.2) K/uL Immature Gran # (Auto) (0.00-0.02) K/uL Polychromasia Anisocytosis Sodium (136-145) mmol/L Potassium (3.5-5.1) mmol/L Chloride (98-107) mmol/L Carbon Dioxide (21-32) mmol/L Anion Gap (3-11) BUN (6-23) mg/dl Creatinine (0.6-1.2) mg/dl Est Cr Clr Drug Dosing ml/min Est GFR ( Amer) ml/min Est GFR (Non-Af Amer) ml/min BUN/Creatinine Ratio (10-20) Glucose (70-99(Fasting)) mg/dl POC Glucose 79 (70-99) mg/dl Lactate (0.4-2.0) mmol/L Calcium (8.5-10.1) mg/dl Magnesium (1.7-2.4) mg/dl Diagnostic Findings Telemetry reviewed: Episode of afib RVR starting last evening around 23:00 and resolving around 2:00 AM. Currently NSR in the 70's Medications Administered Current Inpatient Medications Acetaminophen (Acetaminophen 325 Mg Tab) 650 mg PO Q4H PRN PRN Reason: Pain or Fever Stop: 02/01/22 03:17 Last Admin: 01/05/22 01:12 Dose: 650 mg Documented by: Albuterol (Albuterol Hfa 8 Gm Inhaler) 2 puffs INH Q4 PRN PRN Reason: Wheezing Stop: 02/01/22 11:59 Last Admin: 01/16/22 09:25 Dose: 2 puffs Documented by: Amiodarone HCl (Amiodarone 200 Mg Tab) 200 mg PO BID YELITZA Stop: 02/13/22 20:59 Last Admin: 01/16/22 10:02 Dose: 200 mg Documented by: Ascorbic Acid (Ascorbic Acid 500 Mg Tab) 250 mg PO DAILY YELITZA Stop: 02/01/22 08:59 Last Admin: 01/16/22 10:01 Dose: 250 mg Documented by: Baclofen (Baclofen 10 Mg Tab) 5 mg PO QAM YELITZA Stop: 02/12/22 08:59 Last Admin: 01/16/22 10:02 Dose: 5 mg Documented by: Carvedilol (Carvedilol 12.5 Mg Tab) 12.5 mg PO BID YELITZA Stop: 02/03/22 20:59 Last Admin: 01/14/22 20:04 Dose: 12.5 mg Documented by: Cyanocobalamin (Cyanocobalamin (B-12) 500 Mcg Tablet) 500 mcg PO DAILY YELITZA Stop: 02/01/22 08:59 Last Admin: 01/16/22 10:03 Dose: 500 mcg Documented by: Dextrose (Dextrose 50% 50 Ml Syringe) 25 - 50 ml IV UD PRN; Protocol PRN Reason: Hypoglycemia Protocol Stop: 02/01/22 03:17 Diphenhydramine HCl (Diphenhydramine Capsule 25 Mg Cap) 25 mg PO DAILY PRN PRN Reason: Itching Stop: 02/03/22 15:29 Last Admin: 01/05/22 01:12 Dose: 25 mg Documented by: Ferrous Sulfate (Ferrous Sulfate 325 Mg Tab) 325 mg PO DAILY YELITZA Stop: 02/01/22 08:59 Last Admin: 01/16/22 10:01 Dose: 325 mg Documented by: Folic Acid (Folic Acid 1 Mg Tab) 1 mg PO DAILY YELITZA Stop: 02/01/22 08:59 Last Admin: 01/16/22 10:01 Dose: 1 mg Documented by: Glucagon (Glucagon For Inj 1 Mg Vial) 1 mg SQ UD PRN; Protocol PRN Reason: Hypoglycemia Protocol Stop: 02/01/22 03:17 Glucose (Glucose 10 Tabs/Tube) 4 - 8 tabs PO UD PRN; Protocol PRN Reason: Hypoglycemia Protocol Stop: 02/01/22 03:17 Glucose (Glucose 40% Gel 15 Gm Tube) 15 - 30 gm PO UD PRN; Protocol PRN Reason: Hypoglycemia Protocol Stop: 02/01/22 03:17 Promethazine HCl 12.5 mg/ (Sodium Chloride) 50.5 mls @ 202 mls/hr IV Q6H PRN PRN Reason: Nausea And Vomiting Stop: 02/01/22 03:17 Last Infusion: 01/07/22 17:27 Dose: Infused Documented by: Sodium Chloride (Nss 1000ml) 1,000 mls @ 0 mls/hr IV .Q0M PRN PRN Reason: For Hemodialysis Use ONLY Stop: 01/16/22 14:57 Insulin Aspart (Insulin Aspart Per Unit) 0 units SC ACHS [facility] Stop: 02/01/22 03:17 Last Admin: 01/16/22 12:21 Dose: Not Given Documented by: Levothyroxine Sodium (Levothyroxine Sodium 125 Mcg Tablet) 125 mcg PO DAILYBB [facility] Stop: 02/01/22 06:29 Last Admin: 01/16/22 06:12 Dose: 125 mcg Documented by: Metoprolol Tartrate (Metoprolol Tartrate 1 Mg/Ml Vial) 5 mg IV Q6 PRN; Protocol PRN Reason: tachycardia Stop: 02/03/22 17:59 Last Admin: 01/04/22 15:57 Dose: 5 mg Documented by: Midodrine (Midodrine Hcl 2.5 Mg Tab) 2.5 mg PO TID@0800,1200,1700 [facility] Stop: 02/05/22 11:59 Last Admin: 01/16/22 12:23 Dose: Not Given Documented by: Miscellaneous (Carbohydrates For Hypoglycemia ) 15 - 30 gm PO UD PRN PRN Reason: Hypoglycemia Protocol Stop: 02/01/22 03:17 Last Admin: 01/03/22 11:08 Dose: 15 gm Documented by: Multivitamins (Multivitamin Tab) 1 tab PO DAILY [facility] Stop: 02/01/22 08:59 Last Admin: 01/16/22 10:02 Dose: 1 tab Documented by: Oxycodone HCl (Oxycodone Hcl 10 Mg Tabcr (Oxycontin)) 10 mg PO BID [facility] Stop: 01/26/22 08:59 Last Admin: 01/16/22 10:01 Dose: 10 mg Documented by: Pantoprazole Sodium (Pantoprazole 40 Mg Tab) 40 mg PO DAILY PRN PRN Reason: Abdominal Pain Stop: 02/01/22 03:17 Last Admin: 01/12/22 12:26 Dose: 40 mg Documented by: Polyethylene Glycol (Polyethylene (Miralax) 17 Gm Pack) 17 gm PO DAILY PRN PRN Reason: Constipation Stop: 02/02/22 10:56 Last Admin: 01/06/22 19:16 Dose: 17 gm Documented by:
[2022-01-16] MEDS: HEPARIN SOD (PORCINE) 1000 UNIT/ML IV SCH ×3 (13:53→16:10)
[2022-01-16] MEDS: ACETAMINOPHEN 325 MG TAB PO PRN (13:55)
--- NOTE | 2022-01-16 15:57 | Dialysis Progress Note ---
Date of Service January 16, 2022 Assessment & Plan (1) Acute on chronic renal failure: Plan: anuric dialysis dependent ischemic ATN after several days of AF/F, tachycardia, and hypotension and with pre-existing cardiorenal syndrome. Baseline creatinine is somewhat labile but runs generally to high ones. Her creatinine at d/c on 12/25 was 1.4; was 2 on admission. First day of dialysis January 10. Overall prognosis very poor; family speaks for patient at this time and wishes to continue current level of care Daily basic metabolic panel for dialysis today and follow daily for need; may well need frequent/near daily dialysis until we can improve hemodynamic parameters and volume overload > will attempt up to 2.5L UF today >> whicdh she tolerated today and yesterday >>approached by medical record technician re multiple food allergies/diet limitations and challenges w/ order sets (no more than one liquid item/tray w/ FR) >> ok for now to lift sodium and fluid limits w/ close observation -Continue low-dose Midodrine (2) Electrolyte and fluid disorder: Plan: Profound volume overload\anasarca in the setting of lower blood pressures intermittently as low as the 80s to 90s systolic. Chemistries acceptable for now. Daily basic metabolic panel when taking po again, will need low sodium diet and fluid limit 1.2 L daily Strict intake and output to continue >volume status will only worsen if HR and rhythm, BP uncontrolled Admission and Anticipated Discharge Date Admission Date: January 02, 2022 Subjective seen on dialysis today at about 1130; more alert still; worried her back pain will trigger a fib; many diet limitatiosn; son at [facility] Review of Systems Review of Systems: All systems reviewed & are unremarkable except as noted in Subjective Physical Exam Constitutional: well developed, + morbidly obese, + frail appearing and + edematous; no acute distress Eyes: EOM intact bilaterally ENMT: Ears: no external ear abnormality Nose: no external nose abnormality Mouth: + dry oral mucous membranes Neck: no nuchal rigidity Respiratory: normal respiratory effort Auscultation: + diminished lung sounds Cardiovascular: Rate/Rhythm: regular rate and regular rhythm Extremities: + edema (3+ BLE pretibial and hips/ abd wall slightly less taut) Gastrointestinal (Abdomen): Inspection/Auscultation: normal bowel sounds Percussion/Palpation: abdomen soft; abdomen nontender Musculoskeletal: Extremities: + abnormal strength (Generalized weakness) Skin: no rashes, warm and dry Neurologic: miranda, fluent speech, no tremor Psychiatric: Orientation: oriented to person and oriented to place Results & Data ([facility]) Vital Signs (Past 12 Hours) Vital Signs Temp Pulse Pulse Resp BP BP Pulse Ox 01/16/22 15:26 36.4 C L 78 18 82/50 L 99 01/16/22 13:02 36.7 C 79 104/58 L 01/16/22 13:00 69 120/74 01/16/22 12:30 69 104/63 01/16/22 12:00 66 110/52 L 01/16/22 11:30 67 114/62 01/16/22 11:05 37.4 C 68 21 114/62 97 01/16/22 11:00 63 136/59 L 01/16/22 10:50 36.8 C 66 01/16/22 07:17 36.9 C 67 19 92/49 L 98 Laboratory Results 01/16/22 00:27 01/16/22 00:27
--- NOTE | 2022-01-16 17:37 | Hospitalist Progress Note ---
Date of Service January 16, 2022 Assessment & Plan (1) History of noncompliance with medical treatment: (2) Congestive heart failure: (3) Leg edema: Plan: Patient is a 76 yr female with H/O DM II, hypothyroidism, hyperlipidemia, COPD, on chronic oxygen baseline 3 liters oxygen, sleep apnea not on CPAP - intolerant as per the patient, paroxysmal atrial fibrillation, cor pulmonale, chronic essential hypertension, morbid obesity, irritable bowel syndrome, stage III c hronic kidney disease, mixed stress and urge incontinence, chronic pain syndrome, TIA. Patient presented 01/01 to our ED with complaint of progressive fluid retention along with worsening shortness of breath, denies fever and aspiration, reports compliance with home medication. Of note, patient was recently discharged from hospital after being treated for respiratory failure secondary to COPD exacerbation secondary to COVID-19 infection to rehab and then transitioned to home 1 week ago [employer]. Acute Metabolic Encephalopathy -POA Likely multifactorial: Hypercarbia,Uremia, Hyponatremia, Medications H/O COPD and sleep apnea and intolerance to CPAP and/or BiPAP Chronic Oxygen dependency: 3L at rest and 4L with activity at baseline Patient prefers no ventilation Continue dialysis as per Nephrology Titrate Oxygen to keep Sats 88-92% given H/O COPD Decrease Baclofen to 5mg daily Decrease Oxycodone to 10mg BID--Hold for excess sedation Monitor any withdrawal BiPAP as needed Family understands that patient is critical and has poor prognosis Appreciate Palliative Care Input Mental status seemed to be back to baseline Acute on chronic heart failure with preserved ejection fraction Possible cardiorenal syndrome Patient reports increasing bilateral lower extremity swelling prior to arrival --11/29 ECHO:Ejection fraction greater than 70%, hyperdynamic left ventricle with normal left ventricle size and normal left ventricular wall thickness. ? Med compliance Appreciate Cardiology, Nephrology Input Pt did not diuresis with IV Lasix . Continue with strict I's and O's, daily weights, fluid restriction Midodrine added for hypotension Volume status to be addressed with dialysis Permanent Catheter for HD placed on 01/10/22 Dialysis as per Nephrology Had dialysis today Received IV albumin for low BP Concern for HCAP UTI / CAUTI : Pt w/ bob at home (per patient after her last discharge), urine Cx +ve for ESBL UTI CXR: Concern for developing fibrosis versus infectious process CTAP and CT chest: Suggestive of post inflammatory fibrosis, urinary bladder wall thickening with perivesicular stranding/correlate with urinalysis. Patient started on ertapenem 01/02-->Meropenem 01/04. 01/04 MRSA negative. Completed antibiotic course STACY with CKD Baseline creatinine around 1.3-1.5 Cr 5.26>3.8>3.5>1.8>1.4 Appreciate nephrology recommendation on Dialysis currently Sleep apnea CPAP intolerant DM II ISS for now Monitor BGs Hypothyroidism Continue Levothyroxine H/O A. fib Afib RVR: Dofetilide discontinued Continue Coreg as able Not on anticoagulation, Xarelto was stopped in past because of history of hematochezia Continue to monitor Appreciate cardiology input and recommendation On Amiodarone 200mg daily Coreg held due to low BP Plan to be started on metoprolol when BP more stable Dysphagia Aspiration Precautions Speech Eval completed Pureed diet COPD Sleep apnea Does not use any CPAP COPD remains stable Patient has declined Incruse Ellipta in the past, continue with home inhalers BiPAP as needed Chronic pain Patient reports multiple joint pains Continue with home meds Anemia of chronic disease: Baseline hemoglobin 7-8 Monitor CBC Continue with iron supplementation Received Epo, Venofer DVT Px: SCDs Re: hx of GIB Code Status DNI/DNR: as per my discussion with patient and family Disposition: PT/OT prior to discharge Prognosis is guarded Admission and Anticipated Discharge Date Admission Date: January 02, 2022 Subjective Patient is seen and examined at bedside Had HD today States feeling tired today Also reports back pain but controlled with medications Blood pressure low today Received IV albumin Denies chest pain, dyspnea, dizziness, nausea, abd pain Currently on 5 L supplemental oxygen Review of Systems Review of Systems: Short CBC 01/16/22 Range/Units 00:27 WBC 8.84 (4.8-10.8) K/uL Hgb 8.6 L (12.0-16.0) g/dL Hct 29.6 L (37-47) % Plt Count 166 (130-400) K/uL BMP 01/16/22 00:27 Sodium 138 Potassium 4.3 Chloride 102 Carbon Dioxide 31 BUN 9 Creatinine 1.40 H D Glucose 95 Calcium 8.1 L Physical Exam Physical Exam: Physical Exam: Vitals signs as noted above General Appearance:Morbidly Obese, no apparent distress, ill appearing Head: normocephalic, Atraumatic Eyes: normal inspection, EOMI Neck: supple, Trachea midline Respiratory/Chest: Decreased breath sounds, basal crackles, No accessory muscle use Cardiovascular: S1, S2, No murmur Abdomen/GI:Soft, Non tender, Bowel sounds present Extremities/Musculoskeletal:normal inspection, B/L LE edema Neurologic/Psych:grossly no focal neurological deficits, + Drowsy Skin: normal color, warm Results & Data Results & Data ([facility]) Vital Signs (Past 12 Hours) Vital Signs Temp Pulse Pulse Resp BP BP Pulse Ox 01/16/22 17:13 81 85/40 L 01/16/22 15:26 36.4 C L 78 18 82/50 L 99 01/16/22 13:02 36.7 C 79 104/58 L 01/16/22 13:00 69 120/74 01/16/22 12:30 69 104/63 01/16/22 12:00 66 110/52 L 01/16/22 11:30 67 114/62 01/16/22 11:05 37.4 C 68 21 114/62 97 01/16/22 11:00 63 136/59 L 01/16/22 10:50 36.8 C 66 01/16/22 07:17 36.9 C 67 19 92/49 L 98 Laboratory Results Short CBC 01/16/22 Range/Units 00:27 WBC 8.84 (4.8-10.8) K/uL Hgb 8.6 L (12.0-16.0) g/dL Hct 29.6 L (37-47) % Plt Count 166 (130-400) K/uL BMP 01/16/22 00:27 Sodium 138 Potassium 4.3 Chloride 102 Carbon Dioxide 31 BUN 9 Creatinine 1.40 H D Glucose 95 Calcium 8.1 L (1) Congestive heart failure Heart failure chronicity: acute Heart failure type: combined systolic and diastolic Qualified Code(s): I50.41 - Acute combined systolic (congestive) and diastolic (congestive) heart failure
[2022-01-17] MEDS: LEVOTHYROXINE SODIUM 125 MCG TABLET PO SCH (05:37)
[2022-01-17 06:45] LABS: Hematocrit (blood only) 28.4 % (37-47); Hemoglobin 8.2 g/dL (12.0-16.0)
[2022-01-17 07:02] LABS: BUN Creatinine Ratio 5.5 (10-20); Calcium 8.5 mg/dl (8.5-10.1); Creatinine Clr Calc Pharmacy 32.4 ml/min; Est GFR (African American) 27.4 ml/min; Est GFR (Non-African American) 23.7 ml/min; Potassium 3.6 mmol/L (3.5-5.1)
[2022-01-17] MEDS ORDERED: SODIUM CHLORIDE 0.9% 1000ML 1,000 ML IV PRN ×2 (07:28→07:35)
[2022-01-17] MEDS ORDERED: ALBUMIN 25% 12.5 GM/50 ML VIAL IV ONE ×2 (08:00→10:00)
[2022-01-17] MEDS ORDERED: IRON SUCROSE 100 MG in SYRINGE 0 ML IV ONE (08:00)
[2022-01-17] MEDS ORDERED: EPOETIN ALFA 20,000 UNITS/ML VIAL IV ONE (08:00)
[2022-01-17] MEDS ORDERED: HEPARIN SOD (PORCINE) 1000 UNIT/ML IV ONE (08:00)
[2022-01-17] MEDS: ALBUTEROL HFA 8 GM INHALER INH PRN ×2 (08:32→22:01)
[2022-01-17] MEDS: BACLOFEN 10 MG TAB PO SCH (08:32)
[2022-01-17] MEDS: MIDODRINE HCL 2.5 MG TAB PO SCH ×3 (08:32→16:55)
[2022-01-17] MEDS: CYANOCOBALAMIN (B-12) 500 MCG TABLET PO SCH (08:33)
[2022-01-17] MEDS: FERROUS SULFATE 325 MG TAB PO SCH ×3 (08:33→12:27)
[2022-01-17] MEDS: ASCORBIC ACID 500 MG TAB PO SCH (08:33)
[2022-01-17] MEDS: AMIODARONE 200 MG TAB PO SCH ×2 (08:34→20:08)
[2022-01-17] MEDS: INSULIN ASPART PER UNIT SC SCH ×4 (08:36→22:09)
[2022-01-17] MEDS: HEPARIN SOD (PORCINE) 1000 UNIT/ML IV SCH ×3 (09:33→10:21)
--- NOTE | 2022-01-17 09:38 | Dialysis Progress Note ---
Date of Service January 17, 2022 Assessment & Plan (1) Acute on chronic renal failure: Plan: anuric dialysis dependent ischemic ATN after several days of AF/F, tachycardia, and hypotension and with pre-existing cardiorenal syndrome. Baseline creatinine is somewhat labile but runs generally to high ones. Her creatinine at d/c on 12/25 was 1.4; was 2 on admission. First day of dialysis January 10. Overall prognosis very poor; family speaks for patient at this time and wishes to continue current level of care Daily basic metabolic panel for dialysis today and follow daily for need; planning frequent/near daily dialysis until we can improve hemodynamic parameters and volume overload > will attempt up to 2L UF today w/ slightly shorter tx given frequent HD >> to lerated 2.5L past 2 txs but >>approached by sales representative facility services re multiple food allergies/diet limitations and challenges w/ order sets (no more than one liquid item/tray w/ FR) >> ok for now to lift sodium and fluid limits w/ close observation >note that with aggressive fluid removal she is barely 1L negative yesterday (UF not included in calc'd net fluid balance) -Continue low-dose Midodrine (2) Electrolyte and fluid disorder: Plan: Profound volume overload\anasarca in the setting of lower blood pressures intermittently as low as the 80s to 90s systolic and . Chemistries acceptable for now. Daily basic metabolic monitoring coordinator for need need low sodium diet and fluid limit 1.2 L daily >> these are deferred for now Strict intake and output to continue >volume status will only worsen if HR and rhythm, BP uncontrolled >> HR has been fairly well controlled >>>she has chronic respiratory failure w/ hypercapnia and hypoxia >> urge teams to continue to work with her/encourage use of cpap or bipap hs Admission and Anticipated Discharge Date Admission Date: January 02, 2022 Subjective down to 3L 02NC today; did not tolerate CPAP ON per pt x 3 tries; no mention of back pain today Review of Systems Review of Systems: All systems reviewed & are unremarkable except as noted in Subjective Physical Exam Constitutional: well developed, + morbidly obese, + frail appearing and + edematous; no acute distress Eyes: EOM intact bilaterally ENMT: Ears: no external ear abnormality Nose: no external nose abnormality Mouth: + dry oral mucous membranes Neck: no nuchal rigidity Respiratory: normal respiratory effort Auscultation: + diminished lung sounds Cardiovascular: Rate/Rhythm: regular rate and regular rhythm Extremities: + edema (3+ BLE pretibial less taut and 3-4+ hips/ dependent) Gastrointestinal (Abdomen): Inspection/Auscultation: normal bowel sounds Percussion/Palpation: abdomen soft; abdomen nontender Musculoskeletal: Extremities: + abnormal strength (Generalized weakness) Skin: no rashes, warm and dry Psychiatric: Orientation: oriented to person and oriented to place Results & Data ([facility]) Vital Signs (Past 12 Hours) Vital Signs Temp Pulse Pulse Resp BP BP Pulse Ox 01/17/22 09:19 76 92/49 L 01/17/22 09:15 76 92/49 L 01/17/22 08:58 36.8 C 70 01/17/22 07:58 79 24 90/53 L 94 01/17/22 03:43 36.8 C 77 18 101/75 100 01/17/22 00:00 69 01/16/22 23:22 37.1 C 77 22 114/67 100 01/16/22 22:00 84 22 96 Laboratory Results 01/17/22 05:59 01/17/22 05:59
--- NOTE | 2022-01-17 12:24 | Hospitalist Progress Note ---
Date of Service January 17, 2022 Assessment & Plan (1) History of noncompliance with medical treatment: (2) Congestive heart failure: (3) Leg edema: Plan: per Dr. El's notes with addendum: Patient is a 76 yr female with H/O DM II, hypothyroidism, hyperlipidemia, COPD, on chronic oxygen baseline 3 liters oxygen, sleep apnea not on CPAP - intolerant as per the patient, paroxysmal atrial fibrillation, cor pulmonale, chronic essential hypertension, morbid obesity, irritable bowel syndrome, stage III chronic kidney disease, mixed stress and urge incontinence, chronic pain syndrome, TIA. Patient presented 01/01 to our ED with complaint of progressive fluid retention along with worsening shortness of breath, denies fever and aspiration, reports compliance with home medication. 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 Acute Metabolic Encephalopathy -POA Likely multifactorial: Hypercarbia,Uremia, Hyponatremia, Medications H/O COPD and sleep apnea and intolerance to CPAP and/or BiPAP Chronic Oxygen dependency: 3L at rest and 4L with activity at baseline Patient prefers no ventilation Continue dialysis as per Nephrology Titrate Oxygen to keep Sats 88-92% given H/O COPD Decrease Baclofen to 5mg daily Decrease Oxycodone to 10mg BID--Hold for excess sedation Monitor any withdrawal BiPAP as needed Family understands that patient is critical and has poor prognosis Appreciate Palliative Care Input Mental status seemed to be back to baseline 01/17 alert, oriented x 3 Acute on chronic heart failure with preserved ejection fraction STACY with CKD Possible cardiorenal syndrome Patient reports increasing bilateral lower extremity swelling prior to arrival --11/29 ECHO:Ejection fraction greater than 70%, hyperdynamic left ventricle with normal left ventricle size and normal left ventricular wall thickness. ? Med compliance Appreciate Cardiology, Nephrology Input Pt did not diuresis with IV Lasix . Continue with strict I's and O's, daily weights, fluid restriction Midodrine added for hypotension Volume status to be addressed with dialysis Permanent Catheter for HD placed on 01/10/22 Dialysis as per Nephrology Had dialysis today Received IV albumin for low BP 01/17 crea 5.2 --> 1.8 to to 2.01 x 3 days now continue HD continue to monitor closely H/O A. fib Afib RVR: Dofetilide discontinued Coreg held due to low BP On Amiodarone 200mg daily Not on anticoagulation, Xarelto was stopped in past because of history of hematochezia Plan to be started on metoprolol when BP more stable Possible HCAP UTI / CAUTI : Pt w/ bob at home (per patient after her last discharge), urine Cx +ve for ESBL UTI CXR: Concern for developing fibrosis versus infectious process CTAP and CT chest: Suggestive of post inflammatory fibrosis, urinary bladder wall thickening with perivesicular stranding/correlate with urinalysis. Patient started on ertapenem 01/02-->Meropenem 01/04. 01/04 MRSA negative. Completed antibiotic course Sleep apnea CPAP intolerant DM II ISS for now Monitor BGs Hypothyroidism Continue Levothyroxine Dysphagia Aspiration Precautions Speech Eval completed Pureed diet COPD Sleep apnea Does not use any CPAP COPD remains stable Patient has declined Incruse Ellipta in the past, continue with home inhalers BiPAP as needed Chronic pain Patient reports multiple joint pains Continue with home meds Anemia of chronic disease: Hg stable around 8 Continue with iron supplementation Received Epo, Venofer DVT Px: SCDs Re: hx of GIB Code Status DNI/DNR: as per my discussion with patient and family Disposition: PT/OT prior to discharge Prognosis is guarded Admission and Anticipated Discharge Date Admission Date: January 02, 2022 Subjective ff up for Encephalopathy, Acute CHF, Acute Kidney Injury, possible Cardiorenal Syndrome etc seen resting in bed, on 3 L NC HD in progress states she feels ok overall breathing is improving no chest pain, palpitations, dizziness no fever/chills, has occasional cough no other symptoms Review of Systems Review of Systems: all noted and negative except for above Physical Exam Physical Exam: General- oriented x 3, not in distress, speaks in sentences with no effort or accessory muscle use Eyes- anicteric Neck- no JVD Lungs- mild rales at the bases, no wheezing Heart- normal rate, regular rhythm; no murmurs Abdomen- normal bowel sounds, nondistended, soft, nontender Extremities-mild lower extremity edema, no calf tenderness Neuro- alert, oriented x 3; no gross focal neurologic deficits Skin- warm & dry Results & Data Results & Data ([facility]) Vital Signs (Past 12 Hours) Vital Signs Temp Pulse Pulse Resp BP BP Pulse Ox 01/17/22 12:10 36.8 C 77 108/70 01/17/22 11:45 75 111/66 01/17/22 11:15 72 115/65 01/17/22 10:54 68 01/17/22 10:45 71 110/71 01/17/22 10:15 73 99/58 L 01/17/22 09:45 68 98/57 L 01/17/22 09:15 76 92/49 L 01/17/22 08:58 36.8 C 70 01/17/22 07:58 79 24 90/53 L 94 01/17/22 03:43 36.8 C 77 18 101/75 100 all noted and reviewed including below (1) Congestive heart failure Heart failure chronicity: acute Heart failure type: combined systolic and diastolic Qualified Code(s): I50.41 - Acute combined systolic (congestive) and diastolic (congestive) heart failure
[2022-01-17] MEDS: oxyCODONE HCL 10 MG TABCR (OxyCONTIN) PO SCH ×2 (12:26→20:04)
[2022-01-17] MEDS: MULTIVITAMIN TAB PO SCH (12:27)
[2022-01-17] MEDS: FOLIC ACID 1 MG TAB PO SCH (12:28)
--- NOTE | 2022-01-17 14:42 | Cardiology Progress Note ---
Date of Service January 17, 2022 Assessment & Plan (1) Tachycardia: (2) Paroxysmal atrial fibrillation: (3) Acute on chronic renal failure: (4) Long COVID: (5) Acute on chronic respiratory failure with hypoxia and hypercapnia: (6) Chronic hypotension: Plan: No recurrent afib overnight or today. Currently NSR. Continue amiodarone 200 mg BID. Carvedilol has been on hold due to hypotension. Could consider low dose metoprolol if BP remains > 100 with dialysis. Use midodrine for hypotensive episodes. ongoing daily dialysis per nephrology with fluid removal. Continue supplemental O2/BIPAP if tolerated. She is not on anticoagulation therapy due to past GI bleeding issues. Case discussed with Dr. Turner. Will follow. Admission and Anticipated Discharge Date Admission Date: January 02, 2022 Supervising Physician Co-Signing Physician Notes Patient seen and examined the bedside. No complaints today rhypotensive without symptoms. Denies chest pain or shortness of breath. Remains in sinus rhythm. No recurrent atrial fibrillation. Edema improved per additional 2.5 L removed on dialysis today. PE: VSS. Gen: NAD, AAO x3. Heart: Regular normal S1S2. distant heart sounds. Lungs: Diminished breath sounds bilateral, no rales, rhonchi, wheeze. Extremities: 1+ bilateral pedal edema. A/P: Agree with above PA-C history, physical exam, assessment and plan. Continue to maintain negative fluid balance via hemodialysis as blood pressure tolerates. Oral amiodarone for rhythm control. Supportive care as per internal medicine. BiPAP during sleep. Subjective Patient resting in bed. Reports SOB is stable. Tried CPAP 2x without success. Reports intolerance. No chest pain. No recurrent afib. Remains markedly edematous. Review of Systems Review of Systems: All systems reviewed & are unremarkable except as noted in HPI & below Physical Exam Constitutional: + ill appearing and + morbidly obese Respiratory: normal respiratory effort, lungs clear to auscultation no respiratory distress Auscultation: + diminished lung sounds (Bilateral); no rales, no rhonchi and no wheezes Cardiovascular: Rate/Rhythm: regular rate and regular rhythm Heart Sounds: normal S1 and normal S2; no murmur Extremities: + edema (1+ bilateral pedal and ankle edema) Gastrointestinal (Abdomen): normal bowel sounds, soft, nontender, no hepatosplenomegaly Inspection/Auscultation: abdomen not distended Percussion/Palpation: abdomen soft; abdomen nontender, no guarding and abdomen not rigid Neurologic: PERRL, EOMI, accommodation nl, no face palsy, no dysarthria Psychiatric: A+Ox3, euthymic affect Results & Data ([facility]) Vital Signs (Past 12 Hours) Vital Signs Temp Pulse Pulse Resp BP BP Pulse Ox 01/17/22 12:10 36.8 C 77 108/70 01/17/22 11:45 75 111/66 01/17/22 11:15 72 115/65 01/17/22 10:54 68 01/17/22 10:45 71 110/71 01/17/22 10:15 73 99/58 L 01/17/22 09:45 68 98/57 L 01/17/22 09:15 76 92/49 L 01/17/22 08:58 36.8 C 70 01/17/22 07:58 79 24 90/53 L 94 01/17/22 03:43 36.8 C 77 18 101/75 100 Laboratory Results 01/17/22 01/17/22 01/17/22 Range/Units 12:14 07:28 05:59 Hgb 8.2 L (12.0-16.0) g/dL Hct 28.4 L (37-47) % Sodium (136-145) mmol/L Potassium (3.5-5.1) mmol/L Chloride (98-107) mmol/L Carbon Dioxide (21-32) mmol/L Anion Gap (3-11) BUN (6-23) mg/dl Creatinine (0.6-1.2) mg/dl Est Cr Clr Drug Dosing ml/min Est GFR ( Amer) ml/min Est GFR (Non-Af Amer) ml/min BUN/Creatinine Ratio (10-20) Glucose (70-99(Fasting)) mg/dl POC Glucose 80 81 (70-99) mg/dl Calcium (8.5-10.1) mg/dl Iron (35-150) mcg/dl Transferrin (200-360) mg/dl Transferrin % Sat (15-50) % 01/17/22 01/16/22 01/16/22 Range/Units 05:59 20:09 16:20 Hgb (12.0-16.0) g/dL Hct (37-47) % Sodium 139 (136-145) mmol/L Potassium 3.6 (3.5-5.1) mmol/L Chloride 104 (98-107) mmol/L Carbon Dioxide 32 (21-32) mmol/L Anion Gap 3 (3-11) BUN 11 (6-23) mg/dl Creatinine 2.01 H D (0.6-1.2) mg/dl Est Cr Clr Drug Dosing 32.4 ml/min Est GFR ( Amer) 27.4 ml/min Est GFR (Non-Af Amer) 23.7 ml/min BUN/Creatinine Ratio 5.5 L (10-20) Glucose 85 (70-99(Fasting)) mg/dl POC Glucose 112 H 170 H (70-99) mg/dl Calcium 8.5 (8.5-10.1) mg/dl Iron 25 L (35-150) mcg/dl Transferrin 131 L (200-360) mg/dl Transferrin % Sat 14 L (15-50) % Diagnostic Findings Telemetry reviewed - NSR with PAC's. No recurrent PAF over the last 24 hours. No pauses or bradycardia. Medications Administered Current Inpatient Medications Acetaminophen (Acetaminophen 325 Mg Tab) 650 mg PO Q4H PRN PRN Reason: Pain or Fever Stop: 02/01/22 03:17 Last Admin: 01/16/22 13:55 Dose: 650 mg Documented by: Albuterol (Albuterol Hfa 8 Gm Inhaler) 2 puffs INH Q4 PRN PRN Reason: Wheezing Stop: 02/01/22 11:59 Last Admin: 01/17/22 08:32 Dose: 2 puffs Documented by: Amiodarone HCl (Amiodarone 200 Mg Tab) 200 mg PO BID [facility] Stop: 02/13/22 20:59 Last Admin: 01/17/22 08:34 Dose: 200 mg Documented by: Ascorbic Acid (Ascorbic Acid 500 Mg Tab) 250 mg PO DAILY YELITZA Stop: 02/01/22 08:59 Last Admin: 01/17/22 08:33 Dose: 250 mg Documented by: Baclofen (Baclofen 10 Mg Tab) 5 mg PO QAM [facility] Stop: 02/12/22 08:59 Last Admin: 01/17/22 08:32 Dose: 5 mg Documented by: Carvedilol (Carvedilol 12.5 Mg Tab) 12.5 mg PO BID YELITZA Stop: 02/03/22 20:59 Last Admin: 01/14/22 20:04 Dose: 12.5 mg Documented by: Cyanocobalamin (Cyanocobalamin (B-12) 500 Mcg Tablet) 500 mcg PO DAILY YELITZA Stop: 02/01/22 08:59 Last Admin: 01/17/22 08:33 Dose: 500 mcg Documented by: Dextrose (Dextrose 50% 50 Ml Syringe) 25 - 50 ml IV UD PRN; Protocol PRN Reason: Hypoglycemia Protocol Stop: 02/01/22 03:17 Diphenhydramine HCl (Diphenhydramine Capsule 25 Mg Cap) 25 mg PO DAILY PRN PRN Reason: Itching Stop: 02/03/22 15:29 Last Admin: 01/05/22 01:12 Dose: 25 mg Documented by: Ferrous Sulfate (Ferrous Sulfate 325 Mg Tab) 325 mg PO DAILY YELITZA Stop: 02/01/22 08:59 Last Admin: 01/17/22 12:27 Dose: 325 mg Documented by: Folic Acid (Folic Acid 1 Mg Tab) 1 mg PO DAILY YELITZA Stop: 02/01/22 08:59 Last Admin: 01/17/22 12:28 Dose: 1 mg Documented by: Glucagon (Glucagon For Inj 1 Mg Vial) 1 mg SQ UD PRN; Protocol PRN Reason: Hypoglycemia Protocol Stop: 02/01/22 03:17 Glucose (Glucose 10 Tabs/Tube) 4 - 8 tabs PO UD PRN; Protocol PRN Reason: Hypoglycemia Protocol Stop: 02/01/22 03:17 Glucose (Glucose 40% Gel 15 Gm Tube) 15 - 30 gm PO UD PRN; Protocol PRN Reason: Hypoglycemia Protocol Stop: 02/01/22 03:17 Promethazine HCl 12.5 mg/ (Sodium Chloride) 50.5 mls @ 202 mls/hr IV Q6H PRN PRN Reason: Nausea And Vomiting Stop: 02/01/22 03:17 Last Infusion: 01/07/22 17:27 Dose: Infused Documented by: Insulin Aspart (Insulin Aspart Per Unit) 0 units SC ACHS YELITZA Stop: 02/01/22 03:17 Last Admin: 01/17/22 12:28 Dose: 1 units Documented by: Levothyroxine Sodium (Levothyroxine Sodium 125 Mcg Tablet) 125 mcg PO DAILYBB [facility] Stop: 02/01/22 06:29 Last Admin: 01/17/22 05:37 Dose: 125 mcg Documented by: Metoprolol Tartrate (Metoprolol Tartrate 1 Mg/Ml Vial) 5 mg IV Q6 PRN; Protocol PRN Reason: tachycardia Stop: 02/03/22 17:59 Last Admin: 01/04/22 15:57 Dose: 5 mg Documented by: Midodrine (Midodrine Hcl 2.5 Mg Tab) 2.5 mg PO TID@0800,1200,1700 [facility] Stop: 02/05/22 11:59 Last Admin: 01/17/22 12:28 Dose: 2.5 mg Documented by: Miscellaneous (Carbohydrates For Hypoglycemia ) 15 - 30 gm PO UD PRN PRN Reason: Hypoglycemia Protocol Stop: 02/01/22 03:17 Last Admin: 01/03/22 11:08 Dose: 15 gm Documented by: Multivitamins (Multivitamin Tab) 1 tab PO DAILY [facility] Stop: 02/01/22 08:59 Last Admin: 01/17/22 12:27 Dose: 1 tab Documented by: Oxycodone HCl (Oxycodone Hcl 10 Mg Tabcr (Oxycontin)) 10 mg PO BID [facility] Stop: 01/26/22 08:59 Last Admin: 01/17/22 12:26 Dose: 10 mg Documented by: Pantoprazole Sodium (Pantoprazole 40 Mg Tab) 40 mg PO DAILY PRN PRN Reason: Abdominal Pain Stop: 02/01/22 03:17 Last Admin: 01/12/22 12:26 Dose: 40 mg Documented by: Polyethylene Glycol (Polyethylene (Miralax) 17 Gm Pack) 17 gm PO DAILY PRN PRN Reason: Constipation Stop: 02/02/22 10:56 Last Admin: 01/06/22 19:16 Dose: 17 gm Documented by:
[2022-01-17] MEDS: diphenhydrAMINE Capsule 25 MG CAP PO PRN (22:33)
[2022-01-18 06:19] LABS: Basophils # (auto) 0.02 K/uL (0-0.2); Basophils % (auto) 0.2 %; Eosinophils # (auto) 0.48 K/uL (0-0.5); Hematocrit (blood only) 27.7 % (37-47); Hemoglobin 8.1 g/dL (12.0-16.0); Immature Granulocytes # (auto) 0.08 K/uL (0.00-0.02); Lymphocytes # (auto) 2.07 K/uL (1.2-3.4); Lymphocytes % (auto) 25.8 %; Mean Corpuscular Hemoglobin 26.3 pg (25-34); Mean Corpuscular Hgb Conc 29.2 g/dL (32-36); Mean Corpuscular Volume 89.9 fL (80-100); Mean Platelet Volume 8.6 fL (7.4-10.4); Monocytes # (auto) 0.88 K/uL (0.11-0.59); Nucleated RBC # (auto) 0.09 K/uL (0-0); Nucleated RBC % (auto) 1.1 %; Platelet Count 176 K/uL (130-400); RDW Standard Deviation 77.6 fL (36.4-46.3); Red Blood Count 3.08 M/uL (4.2-5.4); White Blood Count 8.03 K/uL (4.8-10.8)
[2022-01-18] MEDS: LEVOTHYROXINE SODIUM 125 MCG TABLET PO SCH (06:29)
[2022-01-18 06:36] LABS: BUN Creatinine Ratio 4.4 (10-20); Calcium 8.3 mg/dl (8.5-10.1); Creatinine Clr Calc Pharmacy 35.1 ml/min; Est GFR (African American) 30.9 ml/min; Est GFR (Non-African American) 26.7 ml/min; Magnesium 1.8 mg/dl (1.7-2.4); Potassium 3.7 mmol/L (3.5-5.1)
[2022-01-18 06:58] LABS: Anisocytosis Present
[2022-01-18] MEDS: oxyCODONE HCL 10 MG TABCR (OxyCONTIN) PO SCH (08:12)
[2022-01-18] MEDS: MIDODRINE HCL 2.5 MG TAB PO SCH ×3 (08:12→18:29)
[2022-01-18] MEDS: AMIODARONE 200 MG TAB PO SCH (08:12)
[2022-01-18] MEDS: MULTIVITAMIN TAB PO SCH (08:13)
[2022-01-18] MEDS: BACLOFEN 10 MG TAB PO SCH (08:13)
[2022-01-18] MEDS: PANTOprazole 40 MG TAB PO PRN (08:14)
[2022-01-18] MEDS: CYANOCOBALAMIN (B-12) 500 MCG TABLET PO SCH (08:14)
[2022-01-18] MEDS: FOLIC ACID 1 MG TAB PO SCH (08:14)
[2022-01-18] MEDS: ASCORBIC ACID 500 MG TAB PO SCH (08:14)
[2022-01-18] MEDS: INSULIN ASPART PER UNIT SC SCH ×4 (08:24→21:20)
[2022-01-18] MEDS ORDERED: SODIUM CHLORIDE 0.9% 1000ML 1,000 ML IV PRN (10:12)
[2022-01-18] MEDS ORDERED: HEPARIN SOD (PORCINE) 1000 UNIT/ML IV ONE (10:12)
--- NOTE | 2022-01-18 10:14 | Nephrology Progress Note ---
Date of Service January 18, 2022 Assessment & Plan (1) Acute on chronic renal failure: Plan: oliogoanuric dialysis dependent ischemic ATN after several days of AF/F, tac hycardia, and hypotension and with pre-existing cardiorenal syndrome. Baseline creatinine is somewhat labile but runs generally to high ones. Her creatinine at d/c on 12/25 was 1.4; was 2 on admission. First day of dialysis January 10. Overall prognosis very poor; family speaks for patient at this time and wishes to continue current level of care Daily basic metabolic panel for dialysis today and follow daily for need; planning frequent/near daily dialysis until we can improve hemodynamic parameters and volume overload > will attempt up to 1.5-2L UF today w/ slightly shorter tx given frequent HD >> >>approached by supervisor coin machine re multiple food allergies/diet limitations and challenges w/ order sets (no more than one liquid item/tray w/ FR) >> ok for now to lift sodium and fluid limits w/ close observation >note that with aggressive fluid removal she is barely 1L negative yesterday (UF not included in calc'd net fluid balance) -Continue low-dose Midodrine (2) Electrolyte and fluid disorder: Plan: Profound volume overload\anasarca in the setting of lower blood pressures intermittently as low as the 80s to 90s systolic and . Chemistries acceptable for now. Daily basic metabolic athletic monitor for need need low sodium diet and fluid limit 1.2 L daily >> these are deferred for now Strict intake and output to continue >volume status will only worsen if HR and rhythm, BP uncontrolled >> HR has been fairly well controlled >>>she has chronic respiratory failure w/ hypercapnia and hypoxia >> urge teams to continue to work with her/encourage use of cpap or bipap hs Admission and Anticipated Discharge Date Admission Date: January 02, 2022 Subjective still working at finding best food for her po; down to 3L 02; 100 cc uop; neck still sore Review of Systems Review of Systems: All systems reviewed & are unremarkable except as noted in Subjective Physical Exam Constitutional: well developed, + morbidly obese, + frail appearing and + leandra matous; no acute distress Eyes: EOM intact bilaterally ENMT: Ears: no external ear abnormality Nose: no external nose abnormality Mouth: + dry oral mucous membranes Neck: no nuchal rigidity Respiratory: normal respiratory effort Auscultation: + diminished lung sounds Cardiovascular: Rate/Rhythm: regular rate and regular rhythm Extremities: + edema (3+ BLE pretibial again less taut and 3-4+ hips/ dependent) Gastrointestinal (Abdomen): Inspection/Auscultation: normal bowel sounds Percussion/Palpation: abdomen soft; abdomen nontender Musculoskeletal: Extremities: + abnormal strength (Generalized weakness) Skin: no rashes, warm and dry Psychiatric: Orientation: oriented to person and oriented to place Results & Data ([facility]) Vital Signs (Past 12 Hours) Vital Signs Temp Pulse Pulse Resp BP Pulse Ox 01/18/22 07:19 36.6 C 91 H 20 99/50 L 98 01/18/22 03:00 36.7 C 90 17 93/46 L 97 01/18/22 00:00 88 01/17/22 23:02 36.8 C 91 H 18 96/47 L 97 Laboratory Results 01/18/22 05:54 01/18/22 05:54
[2022-01-18] MEDS ORDERED: ALBUMIN 25% 12.5 GM/50 ML VIAL IV SCH ×2 (10:30→12:00)
[2022-01-18] MEDS ORDERED: IRON SUCROSE 100 MG in SYRINGE 0 ML IV ONE (10:45)
[2022-01-18] MEDS: ACETAMINOPHEN 325 MG TAB PO PRN (12:01)
[2022-01-18] MEDS: diphenhydrAMINE Capsule 25 MG CAP PO PRN (12:01)
[2022-01-18] MEDS: METOPROLOL TARTRATE 1 MG/ML VIAL IV PRN (14:05)
--- NOTE | 2022-01-18 15:00 | Cardiology Progress Note ---
Date of Service January 18, 2022 Assessment & Plan (1) Tachycardia: (2) Paroxysmal atrial fibrillation: (3) Acute on chronic renal failure: (4) Long COVID: (5) Acute on chronic respiratory failure with hypoxia and hypercapnia: (6) Chronic hypotension: Plan: Patient with recurrent afib RVR today, starting around 1:00 PM. Continue amiodarone 200 mg BID. Metoprolol 5 mg IV given by nursing staff to aid with HR's. BP low. Instructed to give metoprolol 5 mg IV. Will follow. Use midodrine for low BP. CPAP strongly encouraged, but patient declines. She is not on anticoagulation therapy due to past GI bleeding issues. Case discussed with Dr. Turner. Will follow. Admission and Anticipated Discharge Date Admission Date: January 02, 2022 Supervising Physician Co-Signing Physician Notes Recurrent atrial fibrillation noted on telemetry beginning approximately 11 AM. Patient remains asymptomatic, however, blood pressure remains borderline hypotensive. Agree with above PA-C history, physical exam, assessment and plan. Mild intravascular volume depletion suspected. Recommend 250 cc normal saline bolus over 1 hour. Discontinue oral amiodarone in favor of IV amiodarone infusion. Supportive care as per internal medicine. BiPAP during sleep. Subjective Patient sleeping. Awakens to voice. Went into afib around 1:00 PM. Contacted by nurse. Instructed to give IV metoprolol as ordered in chart. She denies acute complaints. Will not wear CPAP when sleeping. Denies chest pain or SOB. Edema improved Review of Systems Review of Systems: All systems reviewed & are unremarkable except as noted in HPI & below Physical Exam Constitutional: + ill appearing and + morbidly obese Respiratory: normal respiratory effort, lungs clear to auscultation no respiratory distress Auscultation: + diminished lung sounds (Bilateral); no rales, no rhonchi and no wheezes Cardiovascular: Rate/Rhythm: + tachycardic and + irregularly irregular Heart Sounds: normal S1 and normal S2; no murmur Extremities: + edema (1+ bilateral pedal and ankle edema) Gastrointestinal (Abdomen): normal bowel sounds, soft, nontender, no hepatosplenomegaly Inspection/Auscultation: abdomen not distended Percussion/Palpation: abdomen soft; abdomen nontender, no guarding and abdomen not rigid Neurologic: PERRL, EOMI, accommodation nl, no face palsy, no dysarthria Psychiatric: A+Ox3, euthymic affect Results & Data ([facility]) Vital Signs (Past 12 Hours) Vital Signs Temp Pulse Pulse Pulse Resp BP BP 01/18/22 14:20 130 H 75/52 L 01/18/22 14:10 124 H 84/65 L 01/18/22 14:05 140 H 94/44 L 01/18/22 13:55 142 H 94/44 L 01/18/22 13:37 141 H 82/62 L 01/18/22 13:24 128 H 78/54 L 01/18/22 13:12 130 H 89/53 L 01/18/22 12:46 36.8 C 86 22 104/58 L 01/18/22 12:21 88 01/18/22 07:19 36.6 C 91 H 20 99/50 L 01/18/22 03:00 36.7 C 90 17 93/46 L Pulse Ox 01/18/22 14:20 01/18/22 14:10 01/18/22 14:05 01/18/22 13:55 01/18/22 13:37 01/18/22 13:24 01/18/22 13:12 01/18/22 12:46 94 01/18/22 12:21 01/18/22 07:19 98 01/18/22 03:00 97 Laboratory Results 01/18/22 01/18/22 01/18/22 Range/Units 11:30 07:20 05:54 WBC (4.8-10.8) K/uL RBC (4.2-5.4) M/uL Hgb (12.0-16.0) g/dL Hct (37-47) % MCV (80-100) fL MCH (25-34) pg MCHC (32-36) g/dL RDW Std Deviation (36.4-46.3) fL RDW Coeff of Lawrence (11.5-14.5) % Plt Count (130-400) K/uL MPV (7.4-10.4) fL Immature Gran % (Auto) % Neut % (Auto) % Lymph % (Auto) % Bullitt % (Auto) % Eos % (Auto) % Baso % (Auto) % Neut # (Auto) (1.4-6.5) K/uL Lymph # (Auto) (1.2-3.4) K/uL Bullitt # (Auto) (0.11-0.59) K/uL Eos # (Auto) (0-0.5) K/uL Baso # (Auto) (0-0.2) K/uL Immature Gran # (Auto) (0.00-0.02) K/uL Absolute Nucleated RBC (0-0) K/uL Nucleated RBC % (auto) % Anisocytosis Sodium 136 (136-145) mmol/L Potassium 3.7 (3.5-5.1) mmol/L Chloride 102 (98-107) mmol/L Carbon Dioxide 31 (21-32) mmol/L Anion Gap 3 (3-11) BUN 8 (6-23) mg/dl Creatinine 1.82 H (0.6-1.2) mg/dl Est Cr Clr Drug Dosing 35.1 ml/min Est GFR ( Amer) 30.9 ml/min Est GFR (Non-Af Amer) 26.7 ml/min BUN/Creatinine Ratio 4.4 L (10-20) Glucose 100 H (70-99(Fasting)) mg/dl POC Glucose 106 H 93 (70-99) mg/dl Calcium 8.3 L (8.5-10.1) mg/dl Magnesium 1.8 (1.7-2.4) mg/dl 01/18/22 01/18/22 01/17/22 Range/Units 05:54 04:49 19:55 WBC 8.03 (4.8-10.8) K/uL RBC 3.08 L (4.2-5.4) M/uL Hgb 8.1 L (12.0-16.0) g/dL Hct 27.7 L (37-47) % MCV 89.9 (80-100) fL MCH 26.3 (25-34) pg MCHC 29.2 L (32-36) g/dL RDW Std Deviation 77.6 H (36.4-46.3) fL RDW Coeff of Lawrence 24.0 H (11.5-14.5) % Plt Count 176 (130-400) K/uL MPV 8.6 (7.4-10.4) fL Immature Gran % (Auto) 1.0 % Neut % (Auto) 56.0 % Lymph % (Auto) 25.8 % Bullitt % (Auto) 11.0 % Eos % (Auto) 6.0 % Baso % (Auto) 0.2 % Neut # (Auto) 4.50 (1.4-6.5) K/uL Lymph # (Auto) 2.07 (1.2-3.4) K/uL Bullitt # (Auto) 0.88 H (0.11-0.59) K/uL Eos # (Auto) 0.48 (0-0.5) K/uL Baso # (Auto) 0.02 (0-0.2) K/uL Immature Gran # (Auto) 0.08 H (0.00-0.02) K/uL Absolute Nucleated RBC 0.09 H (0-0) K/uL Nucleated RBC % (auto) 1.1 % Anisocytosis Present Sodium (136-145) mmol/L Potassium (3.5-5.1) mmol/L Chloride (98-107) mmol/L Carbon Dioxide (21-32) mmol/L Anion Gap (3-11) BUN (6-23) mg/dl Creatinine (0.6-1.2) mg/dl Est Cr Clr Drug Dosing ml/min Est GFR ( Amer) ml/min Est GFR (Non-Af Amer) ml/min BUN/Creatinine Ratio (10-20) Glucose (70-99(Fasting)) mg/dl POC Glucose 117 H 138 H (70-99) mg/dl Calcium (8.5-10.1) mg/dl Magnesium (1.7-2.4) mg/dl 01/17/22 Range/Units 16:07 WBC (4.8-10.8) K/uL RBC (4.2-5.4) M/uL Hgb (12.0-16.0) g/dL Hct (37-47) % MCV (80-100) fL MCH (25-34) pg MCHC (32-36) g/dL RDW Std Deviation (36.4-46.3) fL RDW Coeff of Lawrence (11.5-14.5) % Plt Count (130-400) K/uL MPV (7.4-10.4) fL Immature Gran % (Auto) % Neut % (Auto) % Lymph % (Auto) % Bullitt % (Auto) % Eos % (Auto) % Baso % (Auto) % Neut # (Auto) (1.4-6.5) K/uL Lymph # (Auto) (1.2-3.4) K/uL Bullitt # (Auto) (0.11-0.59) K/uL Eos # (Auto) (0-0.5) K/uL Baso # (Auto) (0-0.2) K/uL Immature Gran # (Auto) (0.00-0.02) K/uL Absolute Nucleated RBC (0-0) K/uL Nucleated RBC % (auto) % Anisocytosis Sodium (136-145) mmol/L Potassium (3.5-5.1) mmol/L Chloride (98-107) mmol/L Carbon Dioxide (21-32) mmol/L Anion Gap (3-11) BUN (6-23) mg/dl Creatinine (0.6-1.2) mg/dl Est Cr Clr Drug Dosing ml/min Est GFR ( Amer) ml/min Est GFR (Non-Af Amer) ml/min BUN/Creatinine Ratio (10-20) Glucose (70-99(Fasting)) mg/dl POC Glucose 87 (70-99) mg/dl Calcium (8.5-10.1) mg/dl Magnesium (1.7-2.4) mg/dl Diagnostic Findings Telemetry reviewed: Recurrent afib RVR, starting around 1:00 PM. Medications Administered Current Inpatient Medications Acetaminophen (Acetaminophen 325 Mg Tab) 650 mg PO Q4H PRN PRN Reason: Pain or Fever Stop: 02/01/22 03:17 Last Admin: 01/18/22 12:01 Dose: 650 mg Documented by: Albuterol (Albuterol Hfa 8 Gm Inhaler) 2 puffs INH Q4 PRN PRN Reason: Wheezing Stop: 02/01/22 11:59 Last Admin: 01/17/22 22:01 Dose: 2 puffs Documented by: Amiodarone HCl (Amiodarone 200 Mg Tab) 200 mg PO BID YELITZA Stop: 02/13/22 20:59 Last Admin: 01/18/22 08:12 Dose: 200 mg Documented by: Ascorbic Acid (Ascorbic Acid 500 Mg Tab) 250 mg PO DAILY YELITZA Stop: 02/01/22 08:59 Last Admin: 01/18/22 08:14 Dose: 250 mg Documented by: Baclofen (Baclofen 10 Mg Tab) 5 mg PO QAM YELITZA Stop: 02/12/22 08:59 Last Admin: 01/18/22 08:13 Dose: 5 mg Documented by: Carvedilol (Carvedilol 12.5 Mg Tab) 12.5 mg PO BID YELITZA Stop: 02/03/22 20:59 Last Admin: 01/14/22 20:04 Dose: 12.5 mg Documented by: Cyanocobalamin (Cyanocobalamin (B-12) 500 Mcg Tablet) 500 mcg PO DAILY YELITZA Stop: 02/01/22 08:59 Last Admin: 01/18/22 08:14 Dose: 500 mcg Documented by: Dextrose (Dextrose 50% 50 Ml Syringe) 25 - 50 ml IV UD PRN; Protocol PRN Reason: Hypoglycemia Protocol Stop: 02/01/22 03:17 Diphenhydramine HCl (Diphenhydramine Capsule 25 Mg Cap) 25 mg PO DAILY PRN PRN Reason: Itching Stop: 02/03/22 15:29 Last Admin: 01/18/22 12:01 Dose: 25 mg Documented by: Ferrous Sulfate (Ferrous Sulfate 325 Mg Tab) 325 mg PO DAILY YELITZA Stop: 02/01/22 08:59 Last Admin: 01/17/22 12:27 Dose: 325 mg Documented by: Folic Acid (Folic Acid 1 Mg Tab) 1 mg PO DAILY YELITZA Stop: 02/01/22 08:59 Last Admin: 01/18/22 08:14 Dose: 1 mg Documented by: Glucagon (Glucagon For Inj 1 Mg Vial) 1 mg SQ UD PRN; Protocol PRN Reason: Hypoglycemia Protocol Stop: 02/01/22 03:17 Glucose (Glucose 10 Tabs/Tube) 4 - 8 tabs PO UD PRN; Protocol PRN Reason: Hypoglycemia Protocol Stop: 02/01/22 03:17 Glucose (Glucose 40% Gel 15 Gm Tube) 15 - 30 gm PO UD PRN; Protocol PRN Reason: Hypoglycemia Protocol Stop: 02/01/22 03:17 Promethazine HCl 12.5 mg/ (Sodium Chloride) 50.5 mls @ 202 mls/hr IV Q6H PRN PRN Reason: Nausea And Vomiting Stop: 02/01/22 03:17 Last Infusion: 01/07/22 17:27 Dose: Infused Documented by: Sodium Chloride (Nss 1000ml) 1,000 mls @ 0 mls/hr IV .Q0M PRN PRN Reason: For Hemodialysis Use ONLY Stop: 01/18/22 16:11 Albumin Human (Albumin 25%) 12.5 gm in 50 mls @ 50 mls/hr IV TODAY@1030 [facility] Stop: 01/18/22 16:00 Albumin Human (Albumin 25%) 12.5 gm in 50 mls @ 50 mls/hr IV TODAY@1200 [facility] Stop: 01/18/22 18:00 Insulin Aspart (Insulin Aspart Per Unit) 0 units SC ACHS [facility] Stop: 02/01/22 03:17 Last Admin: 01/18/22 13:04 Dose: Not Given Documented by: Levothyroxine Sodium (Levothyroxine Sodium 125 Mcg Tablet) 125 mcg PO DAILYBB [facility] Stop: 02/01/22 06:29 Last Admin: 01/18/22 06:29 Dose: 125 mcg Documented by: Metoprolol Tartrate (Metoprolol Tartrate 1 Mg/Ml Vial) 5 mg IV Q6 PRN; Protocol PRN Reason: tachycardia Stop: 02/03/22 17:59 Last Admin: 01/18/22 14:05 Dose: 5 mg Documented by: Midodrine (Midodrine Hcl 2.5 Mg Tab) 2.5 mg PO TID@0800,1200,1700 [facility] Stop: 02/05/22 11:59 Last Admin: 01/18/22 13:40 Dose: 2.5 mg Documented by: Miscellaneous (Carbohydrates For Hypoglycemia ) 15 - 30 gm PO UD PRN PRN Reason: Hypoglycemia Protocol Stop: 02/01/22 03:17 Last Admin: 01/03/22 11:08 Dose: 15 gm Documented by: Multivitamins (Multivitamin Tab) 1 tab PO DAILY [facility] Stop: 02/01/22 08:59 Last Admin: 01/18/22 08:13 Dose: 1 tab Documented by: Oxycodone HCl (Oxycodone Hcl 10 Mg Tabcr (Oxycontin)) 10 mg PO BID [facility] Stop: 01/26/22 08:59 Last Admin: 01/18/22 08:12 Dose: 10 mg Documented by: Pantoprazole Sodium (Pantoprazole 40 Mg Tab) 40 mg PO DAILY PRN PRN Reason: Abdominal Pain Stop: 02/01/22 03:17 Last Admin: 01/18/22 08:14 Dose: 40 mg Documented by: Polyethylene Glycol (Polyethylene (Miralax) 17 Gm Pack) 17 gm PO DAILY PRN PRN Reason: Constipation Stop: 02/02/22 10:56 Last Admin: 01/06/22 19:16 Dose: 17 gm Documented by:
--- NOTE | 2022-01-18 15:04 | Communication Note ---
Date of Service: January 18, 2022 VS reviewed; low bp, higher HR; d/t this will defer dialysis today. will reeval in am for treatment
[2022-01-18] MEDS ORDERED: 0.2 MICRON FILTER SET 1 EA IV ONE (17:00)
[2022-01-18] MEDS ORDERED: AMIODARONE IV BOLUS & DRIP IV STA (17:00)
[2022-01-18] MEDS ORDERED: STAT IV Infusion **Titration per Protocol STA (17:00)
[2022-01-18] MEDS ORDERED: AMIODARONE / D5W 150 MG/100 ML BAG IV STA (17:00)
[2022-01-18] MEDS ORDERED: SODIUM CHLORIDE 0.9% 1000ML 250 ML IV ONE (17:02)
[2022-01-18] MEDS ORDERED: AMIODARONE / D5W 360 MG/200 ML BAG IV ONE (17:10)
[2022-01-18] MEDS: HEPARIN SOD (PORCINE) 1000 UNIT/ML IV SCH (17:38)
--- NOTE | 2022-01-18 19:24 | Hospitalist Progress Note ---
Date of Service January 18, 2022 Assessment & Plan (1) History of noncompliance with medical treatment: (2) Congestive heart failure: (3) Leg edema: Plan: per Dr. El's notes with addendum: Patient is a 76 yr female with H/O DM II, hypothyroidism, hyperlipidemia, COPD, on chronic oxygen baseline 3 liters oxygen, sleep apnea not on CPAP - intolerant as per the patient, paroxysmal atrial fibrillation, cor pulmonale, chronic essential hypertension, morbid obesity, irritable bowel syndrome, stage III chronic kidney disease, mixed stress and urge incontinence, chronic pain syndrome, TIA. Patient presented 01/01 to our ED with complaint of progressive fluid retention along with worsening shortness of breath, denies fever and aspiration, reports compliance with home medication. Of note, patient was recently discharged from hospital after being treated for respiratory failure secondary to COPD exacerbation secondary to COVID-19 infection to rehab and then transitioned to home 1 week ago [employer]. Acute Metabolic Encephalopathy -POA Likely multifactorial: Hypercarbia,Uremia, Hyponatremia, Medications H/O COPD and sleep apnea and intolerance to CPAP and/or BiPAP Chronic Oxygen dependency: 3L at rest and 4L with activity at baseline Patient prefers no ventilation Continue dialysis as per Nephrology Titrate Oxygen to keep Sats 88-92% given H/O COPD Decrease Baclofen to 5mg daily Decrease Oxycodone to 10mg BID--Hold for excess sedation Monitor any withdrawal BiPAP as needed Family understands that patient is critical and has poor prognosis Appreciate Palliative Care Input Mental status seemed to be back to baseline 01/18 Patient appears to be on the drowsy side tonight Bipap ordered Acute on chronic heart failure with preserved ejection fraction STACY with CKD Possible cardiorenal syndrome Patient reports increasing bilateral lower extremity swelling prior to arrival --11/29 ECHO:Ejection fraction greater than 70%, hyperdynamic left ventricle with normal left ventricle size and normal left ventricular wall thickness. ? Med compliance Appreciate Cardiology, Nephrology Input Pt did not diuresis with IV Lasix . Continue with strict I's and O's, daily weights, fluid restriction Midodrine added for hypotension Volume status to be addressed with dialysis Permanent Catheter for HD placed on 01/10/22 Dialysis as per Nephrology Had dialysis today Received IV albumin for low BP crea 5.2 --> 1.8 to to 2.01 x 3 day Creatinine still 1.8 today continue HD continue to monitor closely H/O A. fib Afib RVR: Dofetilide discontinued Coreg held due to low BP Heart rate elevated today Amiodarone increased to 200 mg p.o. twice daily Not on anticoagulation, Xarelto was stopped in past because of history of hematochezia Plan to be started on metoprolol when BP more stable Possible HCAP UTI / CAUTI : Pt w/ bob at home (per patient after her last discharge), urine Cx +ve for ESBL UTI CXR: Concern for developing fibrosis versus infectious process CTAP and CT chest: Suggestive of post inflammatory fibrosis, urinary bladder wall thickening with perivesicular stranding/correlate with urinalysis. Patient started on ertapenem 01/02-->Meropenem 01/04. 01/04 MRSA negative. Completed antibiotic course Sleep apnea CPAP intolerant DM II ISS for now Monitor BGs Hypothyroidism Continue Levothyroxine Dysphagia Aspiration Precautions Speech Eval completed Pureed diet COPD Sleep apnea Does not use any CPAP COPD remains stable Patient has declined Incruse Ellipta in the past, continue with home inhalers BiPAP ordered tonight Chronic pain Patient reports multiple joint pains Continue with home meds Anemia of chronic disease: Hg stable around 8 Continue with iron supplementation Received Epo, Venofer DVT Px: SCDs Re: hx of GIB Code Status DNI/DNR: as per my discussion with patient and family Disposition: PT/OT prior to discharge Prognosis is guarded Admission and Anticipated Discharge Date Admission Date: January 02, 2022 Subjective Follow-up for acute renal failure, atrial fibrillation, etc. Seen resting in bed, sleeping but easily awakened, appears drowsy States she feels fine today but feels tired No shortness of breath, chest pain, abdominal pain, nausea vomiting No fevers or chills No other symptoms Review of Systems Review of Systems: all noted and negative except for above Physical Exam Physical Exam: General- oriented x 2, not in distress, speaks in sentences with no effort or accessory muscle use Eyes- anicteric Neck- no JVD Lungs-mild rales at the bases Heart- normal rate, regular rhythm; no murmurs Abdomen- normal bowel sounds, nondistended, soft, nontender Extremities-mild pretibial edema, no calf tenderness Neuro- alert, oriented x 3; no gross focal neurologic deficits Skin- warm & dry Results & Data Results & Data ([facility]) Vital Signs (Past 12 Hours) Vital Signs Temp Pulse Pulse Pulse Resp BP BP 01/18/22 19:19 36.4 C L 138 H 25 H 93/64 L 01/18/22 18:37 139 H 90/61 L 01/18/22 18:19 128 H 28 H 01/18/22 18:17 118 H 85/58 L 01/18/22 15:00 36.8 C 130 H 24 79/59 L 01/18/22 14:20 130 H 75/52 L 01/18/22 14:10 124 H 84/65 L 01/18/22 14:05 140 H 94/44 L 01/18/22 13:55 142 H 94/44 L 01/18/22 13:37 141 H 82/62 L 01/18/22 13:24 128 H 78/54 L 01/18/22 13:12 130 H 89/53 L 01/18/22 12:46 36.8 C 86 22 104/58 L 01/18/22 12:21 88 Pulse Ox 01/18/22 19:19 98 01/18/22 18:37 98 01/18/22 18:19 95 01/18/22 18:17 98 01/18/22 15:00 97 01/18/22 14:20 01/18/22 14:10 01/18/22 14:05 01/18/22 13:55 01/18/22 13:37 01/18/22 13:24 01/18/22 13:12 01/18/22 12:46 94 01/18/22 12:21 (1) Congestive heart failure Heart failure chronicity: acute Heart failure type: combined systolic and diastolic Qualified Code(s): I50.41 - Acute combined systolic (congestive) and diastolic (congestive) heart failure
[2022-01-18] MEDS ORDERED: METOPROLOL TARTRATE 1 MG/ML VIAL IV STA (21:43)
[2022-01-18] MEDS: AMIODARONE / D5W 360 MG/200 ML BAG IV SCH (23:46)
[2022-01-19] MEDS: oxyCODONE HCL 10 MG TABCR (OxyCONTIN) PO SCH ×3 (01:28→22:34)
[2022-01-19] MEDS: METOPROLOL TARTRATE 1 MG/ML VIAL IV PRN (04:17)
[2022-01-19] MEDS: LEVOTHYROXINE SODIUM 125 MCG TABLET PO SCH (05:59)
[2022-01-19] MEDS ORDERED: SODIUM CHLORIDE 0.9% 1000ML 1,000 ML IV PRN (06:55)
[2022-01-19] MEDS ORDERED: HEPARIN SOD (PORCINE) 1000 UNIT/ML IV ONE (06:55)
[2022-01-19] MEDS ORDERED: IRON SUCROSE 100 MG in SYRINGE 0 ML IV ONE (07:30)
[2022-01-19] MEDS ORDERED: ALBUMIN 25% 12.5 GM/50 ML VIAL IV ONE ×2 (07:30→09:00)
[2022-01-19] MEDS ORDERED: EPOETIN ALFA 20,000 UNITS/ML VIAL IV ONE (07:30)
[2022-01-19] MEDS: INSULIN ASPART PER UNIT SC SCH ×4 (08:52→20:44)
[2022-01-19] MEDS: MIDODRINE HCL 2.5 MG TAB PO SCH ×3 (08:53→16:51)
[2022-01-19] MEDS: HEPARIN SOD (PORCINE) 1000 UNIT/ML IV SCH ×3 (09:18→11:17)
[2022-01-19] MEDS: AMIODARONE / D5W 360 MG/200 ML BAG IV SCH (11:00)
--- NOTE | 2022-01-19 11:05 | Cardiology Progress Note ---
Date of Service January 19, 2022 Assessment & Plan (1) Paroxysmal atrial fibrillation: (2) Acute on chronic renal failure: (3) Long COVID: (4) Acute on chronic respiratory failure with hypoxia and hypercapnia: (5) Chronic hypotension: Plan: Patient remains in atrial fibrillation with rapid ventricular response. Mild volume depletion contributing. Case discussed with nephrology who will reduce amount of fluid removal today. Patient has been in persistent atrial fibrillation for more than 24 hours. She is not a candidate for long-term anticoagulation due to history of hematochezia and hematuria. Hemoglobin documented as low as 7.1 g/dL in November. Recommend discontinuation of amiodarone. Will attempt a rate control strategy with beta- daphne therapy. Recommend 25 mg of metoprolol now, then 3 times daily. Metoprolol will be held for a systolic blood pressure less than 90 mmHg. Blood pressure improved. Continue midodrine. CPAP strongly encouraged, but patient declines. Admission and Anticipated Discharge Date Admission Date: January 02, 2022 Subjective Patient seen and examined the bedside. Edema improved today. Denies palpitations or lightheadedness. Currently receiving hemodialysis treatment with plans for 3 L of fluid removal. Gentle IV fluid administered yesterday due to volume depletion and hypotension. She remains in atrial fibrillation since yesterday with average heart rate of approximate 120 bpm. Review of Systems Review of Systems: All systems reviewed & are unremarkable except as noted in Subjective Physical Exam Constitutional: + ill appearing and + morbidly obese Respiratory: normal respiratory effort; no respiratory distress Auscultation: + diminished lung sounds (Bilateral); no rales, no rhonchi and no wheezes Cardiovascular: Rate/Rhythm: regular rate, regular rhythm and + tachycardic Heart Sounds: normal S1 and normal S2; no murmur Extremities: no edema Gastrointestinal (Abdomen): Inspection/Auscultation: abdomen not distended Percussion/Palpation: abdomen soft; abdomen nontender, no guarding and abdomen not rigid Results & Data ([facility]) Vital Signs (Past 12 Hours) Vital Signs Temp Pulse Pulse Pulse Resp BP BP 01/19/22 10:30 113 H 99/58 L 01/19/22 10:00 121 H 96/71 L 01/19/22 09:30 140 H 119/91 01/19/22 09:05 120 H 107/64 01/19/22 08:58 36.9 C 120 H 01/19/22 08:00 119 H 01/19/22 07:30 36.4 C L 119 H 20 96/66 L 01/19/22 04:17 123 H 102/72 01/19/22 04:12 123 H 20 102/72 01/19/22 03:11 36.5 C 125 H 22 98/59 L 01/19/22 01:24 127 H 01/18/22 23:43 130 H 100/67 Pulse Ox 01/19/22 10:30 01/19/22 10:00 01/19/22 09:30 01/19/22 09:05 01/19/22 08:58 01/19/22 08:00 01/19/22 07:30 99 01/19/22 04:17 01/19/22 04:12 95 01/19/22 03:11 96 01/19/22 01:24 01/18/22 23:43
[2022-01-19] MEDS: BACLOFEN 10 MG TAB PO SCH (12:15)
[2022-01-19] MEDS: CYANOCOBALAMIN (B-12) 500 MCG TABLET PO SCH (12:20)
[2022-01-19] MEDS: ASCORBIC ACID 500 MG TAB PO SCH (12:20)
[2022-01-19] MEDS: FERROUS SULFATE 325 MG TAB PO SCH (12:20)
[2022-01-19] MEDS: FOLIC ACID 1 MG TAB PO SCH (12:21)
[2022-01-19] MEDS: MULTIVITAMIN TAB PO SCH (12:21)
[2022-01-19 14:54] LABS: BUN Creatinine Ratio 4.2 (10-20); Calcium 8.7 mg/dl (8.5-10.1); Creatinine Clr Calc Pharmacy 33.5 ml/min; Est GFR (African American) 29.4 ml/min; Est GFR (Non-African American) 25.3 ml/min; Hematocrit (blood only) 31.4 % (37-47); Hemoglobin 9.2 g/dL (12.0-16.0); Magnesium 1.8 mg/dl (1.7-2.4); Mean Corpuscular Hgb Conc 29.3 g/dL (32-36); Mean Corpuscular Volume 88.7 fL (80-100); Mean Platelet Volume 9.1 fL (7.4-10.4); Phosphorus 1.9 mg/dl (2.5-4.9); Platelet Count 145 K/uL (130-400); Platelet Estimate Normal (Normal); Potassium 3.8 mmol/L (3.5-5.1); RDW Coefficient of Variation 24.2 % (11.5-14.5); RDW Standard Deviation 76.6 fL (36.4-46.3); Red Blood Count 3.54 M/uL (4.2-5.4); White Blood Count 10.87 K/uL (4.8-10.8)
[2022-01-19] MEDS ORDERED: METOPROLOL TARTRATE 25 MG TAB PO STA (15:43)
--- NOTE | 2022-01-19 18:04 | Nephrology Progress Note ---
Date of Service January 19, 2022 Assessment & Plan (1) Acute on chronic renal failure: Plan: oliogoanuric dialysis dependent ischemic ATN after several days of AF/F, tach ycardia, and hypotension and with pre-existing cardiorenal syndrome. Baseline creatinine is somewhat labile but runs generally to high ones. Her creatinine at d/c on 12/25 was 1.4; was 2 on admission. First day of dialysis January 10. Overall prognosis very poor; may need to revisit goals of care Daily basic metabolic panel for dialysis today - plan to rest her for but may need Saturday tx if fluid reaccumulates > attemptedup to 3L UF today but started w/ hemodynamic parameters prompting us to cut back >>approached by circular sawyer helper re multiple food allergies/diet limitations and challenges w/ order sets (no more than one liquid item/tray w/ FR) >> for now no sodium and fluid limits w/ close observation -Continue low-dose Midodrine (2) Electrolyte and fluid disorder: Plan: Profound volume overload\anasarca in the setting of lower blood pressures intermittently as low as the 80s to 90s systolic and HR to 130-140s. Chemistries acceptable for now. Daily basic metabolic door paneler for need need low sodium diet and fluid limit 1.2 L daily >> these are deferred for now Strict intake and output to continue >volume status will only worsen if HR and rhythm, BP uncontrolled >> HR more challenging today >>>she has chronic respiratory failure w/ hypercapnia and hypoxia >> urge teams to continue to work with her/encourage use of cpap or bipap hs Admission and Anticipated Discharge Date Admission Date: January 02, 2022 Subjective HD cut short today d/t hemodynamic instability (tachycardia) > she has 1.5L UF; no dialysis yesterday d/t same issue; cardiology following closely; c/o marked low back pain; no sob Review of Systems Review of Systems: All systems reviewed & are unremarkable except as noted in Subjective Physical Exam Constitutional: well developed, + morbidly obese, + frail appearing and + edematous; no acute distress Eyes: EOM intact bilaterally ENMT: Ears: no external ear abnormality Nose: no external nose abnormality Mouth: + dry oral mucous membranes Neck: no nuchal rigidity Respiratory: normal respiratory effort Auscultation: + diminished lung sounds Cardiovascular: Rate/Rhythm: regular rate and regular rhythm Extremities: + edema (2+ BLE pretibial again less taut and 3+ hips/ dependent) Gastrointestinal (Abdomen): Inspection/Auscultation: normal bowel sounds Percussion/Palpation: abdomen soft; abdomen nontender Musculoskeletal: Extremities: + abnormal strength (Generalized weakness) Skin: no rashes, warm and dry Psychiatric: Orientation: oriented to person and oriented to place Results & Data ([facility]) Vital Signs (Past 12 Hours) Vital Signs Temp Pulse Pulse Resp BP BP Pulse Ox 01/19/22 15:00 36.5 C 132 H 16 93/62 L 97 01/19/22 11:51 37 C 136 H 94/52 L 01/19/22 11:30 135 H 108/63 01/19/22 11:00 101 H 102/61 01/19/22 10:30 113 H 99/58 L 01/19/22 10:00 121 H 96/71 L 01/19/22 09:30 140 H 119/91 01/19/22 09:05 120 H 107/64 01/19/22 08:58 36.9 C 120 H 01/19/22 08:00 119 H 01/19/22 07:30 36.4 C L 119 H 20 96/66 L 99 Laboratory Results 01/19/22 13:59 01/19/22 13:59
--- NOTE | 2022-01-19 20:08 | Hospitalist Progress Note ---
Date of Service January 19, 2022 Assessment & Plan (1) History of noncompliance with medical treatment: (2) Congestive heart failure: (3) Leg edema: Plan: per Dr. El's notes with addendum: Patient is a 76 yr female with H/O DM II, hypothyroidism, hyperlipidemia, COPD, on chronic oxygen baseline 3 liters oxygen, sleep apnea not on CPAP - intolerant as per the patient, paroxysmal atrial fibrillation, cor pulmonale, chronic essential hypertension, morbid obesity, irritable bowel syndrome, stage III chronic kidney disease, mixed stress and urge incontinence, chronic pain syndrome, TIA. Patient presented 01/01 to our ED with complaint of progressive fluid retention along with worsening shortness of breath, denies fever and aspiration, reports compliance with home medication. Of note, patient was recently discharged from hospital after being treated for respiratory failure secondary to COPD exacerbation secondary to COVID-19 infection to rehab and then transitioned to home 1 week ago [employer]. Acute Metabolic Encephalopathy -POA Likely multifactorial: Hypercarbia,Uremia, Hyponatremia, Medications H/O COPD and sleep apnea and intolerance to CPAP and/or BiPAP Chronic Oxygen dependency: 3L at rest and 4L with activity at baseline Patient prefers no ventilation Continue dialysis as per Nephrology Titrate Oxygen to keep Sats 88-92% given H/O COPD Decrease Baclofen to 5mg daily Decrease Oxycodone to 10mg BID--Hold for excess sedation Monitor any withdrawal BiPAP as needed Family understands that patient is critical and has poor prognosis Appreciate Palliative Care Input Mental status seemed to be back to baseline 01/19 more alert monitor Acute on chronic heart failure with preserved ejection fraction STACY with CKD Possible cardiorenal syndrome Patient reports increasing bilateral lower extremity swelling prior to arrival --11/29 ECHO:Ejection fraction greater than 70%, hyperdynamic left ventricle with normal left ventricle size and normal left ventricular wall thickness. ? Med compliance Appreciate Cardiology, Nephrology Input Pt did not diuresis with IV Lasix . Continue with strict I's and O's, daily weights, fluid restriction Midodrine added for hypotension Volume status to be addressed with dialysis Permanent Catheter for HD placed on 01/10/22 Dialysis as per Nephrology Had dialysis today Received IV albumin for low BP 01/19 crea 5.2 --> 1.9 continue HD continue to monitor closely H/O A. fib Afib RVR: Dofetilide discontinued Coreg held due to low BP Amiodarone increased to 200 mg p.o. twice daily Not on anticoagulation, Xarelto was stopped in past because of history of hematochezia Plan to be started on metoprolol when BP more stable Possible HCAP UTI / CAUTI : Pt w/ bob at home (per patient after her last discharge), urine Cx +ve for ESBL UTI CXR: Concern for developing fibrosis versus infectious process CTAP and CT chest: Suggestive of post inflammatory fibrosis, urinary bladder wall thickening with perivesicular stranding/correlate with urinalysis. Patient started on ertapenem 01/02-->Meropenem 01/04. 01/04 MRSA negative. Completed antibiotic course Sleep apnea CPAP intolerant DM II ISS for now Monitor BGs Hypothyroidism Continue Levothyroxine Dysphagia Aspiration Precautions Speech Eval completed Pureed diet COPD Sleep apnea Does not use any CPAP COPD remains stable Patient has declined Incruse Ellipta in the past, continue with home inhalers BiPAP ordered tonight Chronic pain Patient reports multiple joint pains Continue with home meds Anemia of chronic disease: Hg stable around 8 Continue with iron supplementation Received Epo, Venofer DVT Px: SCDs Re: hx of GIB Code Status DNI/DNR: as per my discussion with patient and family Disposition: PT/OT prior to discharge Prognosis is guarded Admission and Anticipated Discharge Date Admission Date: January 02, 2022 Subjective delayed entry date of service noted above seen resting in bed, comfortable HD in progress states she feels tired no chest pain, dyspnea, palpitations, dizziness no other new symptoms Review of Systems Review of Systems: all noted and negative except for above Physical Exam Physical Exam: General- oriented x 3, not in distress, speaks in sentences with no effort or accessory muscle use Eyes- anicteric Neck- no JVD Lungs- mild rales at the bases, no wheezing Heart- normal rate, regular rhythm; no murmurs Abdomen- normal bowel sounds, nondistended, soft, nontender Extremities- trace pretibial edema, no calf tenderness Neuro- alert, oriented x 3; no gross focal neurologic deficits Skin- warm & dry Results & Data Results & Data ([facility]) Vital Signs (Past 12 Hours) Vital Signs Temp Pulse Pulse Pulse Resp BP BP 01/19/22 19:21 36.4 C L 120 H 18 105/70 01/19/22 17:00 132 H 90/71 L 01/19/22 15:00 36.5 C 132 H 16 93/62 L 01/19/22 11:51 37 C 136 H 94/52 L 01/19/22 11:30 135 H 108/63 01/19/22 11:00 101 H 102/61 01/19/22 10:30 113 H 99/58 L 01/19/22 10:00 121 H 96/71 L 01/19/22 09:30 140 H 119/91 01/19/22 09:05 120 H 107/64 01/19/22 08:58 36.9 C 120 H Pulse Ox 01/19/22 19:21 98 01/19/22 17:00 01/19/22 15:00 97 01/19/22 11:51 01/19/22 11:30 01/19/22 11:00 01/19/22 10:30 01/19/22 10:00 01/19/22 09:30 01/19/22 09:05 01/19/22 08:58 all noted and reviewed including below (1) Congestive heart failure Heart failure chronicity: acute Heart failure type: combined systolic and diastolic Qualified Code(s): I50.41 - Acute combined systolic (congestive) and diastolic (congestive) heart failure
[2022-01-19] MEDS: METOPROLOL TARTRATE 25 MG TAB PO SCH (20:54)
[2022-01-20] MEDS: ALBUTEROL HFA 8 GM INHALER INH PRN (05:06)
[2022-01-20] MEDS ORDERED: LEVALBUTEROL TARTRATE 15 GM HFA.AER.AD INH PRN (05:21)
[2022-01-20] MEDS ORDERED: DIGOXIN 125 MCG in SYRINGE 9.5 ML IV ONE (05:30)
[2022-01-20 05:55] LABS: Basophils # (auto) 0.01 K/uL (0-0.2); Basophils % (auto) 0.1 %; Eosinophils # (auto) 0.45 K/uL (0-0.5); Eosinophils % (auto) 5.8 %; Hematocrit (blood only) 30.7 % (37-47); Hemoglobin 8.9 g/dL (12.0-16.0); Immature Granulocytes # (auto) 0.05 K/uL (0.00-0.02); Immature Granulocytes % (auto) 0.6 %; Lymphocytes # (auto) 1.77 K/uL (1.2-3.4); Lymphocytes % (auto) 22.6 %; Mean Corpuscular Hemoglobin 26.3 pg (25-34); Mean Corpuscular Volume 90.6 fL (80-100); Mean Platelet Volume 9.1 fL (7.4-10.4); Monocytes # (auto) 0.94 K/uL (0.11-0.59); Neutrophils % (auto) 58.9 %; Nucleated RBC # (auto) 0.04 K/uL (0-0); Nucleated RBC % (auto) 0.6 %; Platelet Count 164 K/uL (130-400); RDW Coefficient of Variation 24.8 % (11.5-14.5); RDW Standard Deviation 77.8 fL (36.4-46.3); Red Blood Count 3.39 M/uL (4.2-5.4); White Blood Count 7.82 K/uL (4.8-10.8)
[2022-01-20] MEDS: LEVOTHYROXINE SODIUM 125 MCG TABLET PO SCH (06:03)
[2022-01-20 06:19] LABS: BUN Creatinine Ratio 4.2 (10-20); Calcium 8.5 mg/dl (8.5-10.1); Creatinine Clr Calc Pharmacy 27.1 ml/min; Est GFR (African American) 22.6 ml/min; Est GFR (Non-African American) 19.5 ml/min; Magnesium 1.7 mg/dl (1.7-2.4); Potassium 3.8 mmol/L (3.5-5.1)
[2022-01-20 06:27] LABS: Basophilic Stippling Occasional; Polychromasia 1+
[2022-01-20] MEDS: INSULIN ASPART PER UNIT SC SCH ×4 (09:15→21:04)
[2022-01-20] MEDS: MULTIVITAMIN TAB PO SCH (09:20)
[2022-01-20] MEDS: oxyCODONE HCL 10 MG TABCR (OxyCONTIN) PO SCH ×2 (09:20→21:22)
[2022-01-20] MEDS: METOPROLOL TARTRATE 25 MG TAB PO SCH ×3 (09:21→22:21)
[2022-01-20] MEDS: FOLIC ACID 1 MG TAB PO SCH (09:21)
[2022-01-20] MEDS: FERROUS SULFATE 325 MG TAB PO SCH (09:21)
[2022-01-20] MEDS: CYANOCOBALAMIN (B-12) 500 MCG TABLET PO SCH (09:22)
[2022-01-20] MEDS: BACLOFEN 10 MG TAB PO SCH (09:22)
[2022-01-20] MEDS: ASCORBIC ACID 500 MG TAB PO SCH (09:23)
[2022-01-20] MEDS: MIDODRINE HCL 2.5 MG TAB PO SCH ×3 (09:24→19:50)
[2022-01-20] MEDS: diphenhydrAMINE Capsule 25 MG CAP PO PRN (10:50)
--- NOTE | 2022-01-20 10:59 | Nephrology Progress Note ---
Date of Service January 20, 2022 Assessment & Plan (1) Acute on chronic renal failure: Plan: oliogoanuric dialysis dependent ischemic ATN after several days of AF/F, tach ycardia, and hypotension and with pre-existing cardiorenal syndrome. Baseline creatinine is somewhat labile but runs generally to high ones. Her creatinine at d/c on 12/25 was 1.4; was 2 on admission. First day of dialysis January 10. Overall prognosis very poor; may need to revisit goals of care. She had dialysis yesterday. -Next dialysis will be Saturday Daily basic metabolic panel -Continue low-dose Midodrine (2) Electrolyte and fluid disorder: Plan: Profound volume overload\anasarca in the setting of lower blood pressures i ntermittently as low as the 80s to 90s systolic and HR to 130-140s. Chemistries acceptable for now. monitor for need need low sodium diet and fluid limit 1.2 L daily Strict intake and output to continue >volume status will only worsen if HR and rhythm, BP uncontrolled Admission and Anticipated Discharge Date Admission Date: January 02, 2022 Subjective Seen in follow-up for renal failure on dialysis. Last dialysis was yesterday. She feels better today. Still short of breath and in pain Review of Systems Review of Systems: All other systems were reviewed and negative except as noted in HPI Physical Exam Physical Exam: General exam: Appears comfortable, no acute distress.On oxygen nasal cannula HEENT: Pupils are equal and reactive to light Neck: No JVD, neck is supple trachea is midline Respiratory system: wheezing bilaterally. Gastrointestinal: Abdomen is soft, non distended, non tender, bowel sounds are present CVS: Regular rate and rhythm. No murmurs, rubs or gallops Musculoskeletal: No joint or muscle tenderness Extremities: Non tender, no edema, peripheral pulses are present Neuro: Oriented, no tremors, no focal neurological deficits Skin: No rashes Results & Data ([facility]) Vital Signs (Past 12 Hours) Vital Signs Temp Pulse Pulse Pulse Resp BP Pulse Ox 01/20/22 07:56 36.6 C 132 H 22 98/66 L 99 01/20/22 05:42 143 H 01/20/22 05:07 17 98 01/20/22 04:15 36.6 C 129 H 18 99/65 L 99 01/19/22 23:06 36.8 C 125 H 18 104/64 99 Laboratory Results 01/20/22 05:19 01/19/22 01/19/22 01/20/22 13:59 13:59 05:19 WBC 10.87 H 7.82 RBC 3.54 L 3.39 L MCV 88.7 90.6 MCH 26.0 26.3 MCHC 29.3 L 29.0 L RDW Std Deviation 76.6 H 77.8 H RDW Coeff of [place] 24.2 H 24.8 H Plt Count 145 164 MPV 9.1 9.1 Phosphorus 1.9 L 01/20/22 05:19 WBC RBC MCV MCH MCHC RDW Std Deviation RDW Coeff of [place] Plt Count MPV Phosphorus 2.0 L
[2022-01-20] MEDS ORDERED: CETIRIZINE HCL 10 MG TABLET PO ONE (11:45)
--- NOTE | 2022-01-20 12:24 | Cardiology Progress Note ---
Date of Service January 20, 2022 Assessment & Plan (1) Acute on chronic renal failure: (2) Long COVID: (3) Acute on chronic respiratory failure with hypoxia and hypercapnia: (4) Chronic hypotension: (5) Atrial fibrillation, chronic: Plan: Unfortunately patient has not been receiving her metoprolol due to low blood pressures. With the low blood pressure and her chronic kidney disease she is not a good candidate for most rate control medications. She is also not a good candidate for digoxin. I increased her midodrine to 5 mg 3 times daily. I am going to restart her amiodarone as her heart rates are quite high with the atrial fibrillation in the hopes of better rate control without dropping her blood pressure or having problems with her chronic kidney disease. Admission and Anticipated Discharge Date Admission Date: January 02, 2022 Subjective The patient is sitting up in bed eating. Review of Systems Review of Systems: Review of Systems: See HPI for pertinent positives. All other 10 point review of systems are negative. Physical Exam Physical Exam: General: no acute distress and stated age Head: normocephalic, no masses, lesions, tenderness or abnormalities Eyes: conjunctiva are pink and non-injected, sclera clear Neck: supple, no adenopathy, no bruits, normal jugular venous pulse, no hepatojugular reflux Chest: normal shape and normal respiratory effort Lungs: clear to auscultation and percussion Cardiac Exam: - irregular rate & rhythm, no murmurs gallops or rubs - normal S1, normal S2 Pulses: 2(+) throughout Abdomen: abdomen soft, non-tender, no abnormal masses and no hepatosplenomegaly Musculoskeletal: no gait disturbance, no joint inflammation, no deforming arthritis Extremities: no edema and no cyanosis Neuro: grossly normal exam Results & Data ([facility]) Vital Signs (Past 12 Hours) Vital Signs Temp Pulse Pulse Pulse Resp BP BP 01/20/22 11:03 36.5 C 115 H 24 78/51 L 01/20/22 07:56 36.6 C 132 H 22 98/66 L 01/20/22 05:42 143 H 01/20/22 05:07 17 01/20/22 04:15 36.6 C 129 H 18 99/65 L Pulse Ox 01/20/22 11:03 97 01/20/22 07:56 99 01/20/22 05:42 01/20/22 05:07 98 01/20/22 04:15 99 Laboratory Results Laboratory Results - last 24 hr 01/19/22 01/19/22 01/19/22 13:59 13:59 16:12 WBC 10.87 H RBC 3.54 L Hgb 9.2 L Hct 31.4 L MCV 88.7 MCH 26.0 MCHC 29.3 L RDW Std Deviation 76.6 H RDW Coeff of [place] 24.2 H Plt Count 145 MPV 9.1 Immature Gran % (Auto) Neut % (Auto) Lymph % (Auto) [place] % (Auto) Eos % (Auto) Baso % (Auto) Neut # (Auto) Lymph # (Auto) [place] # (Auto) Eos # (Auto) Baso # (Auto) Immature Gran # (Auto) Absolute Nucleated RBC Nucleated RBC % (auto) Platelet Estimate Normal Polychromasia Basophilic Stippling Sodium 137 Potassium 3.8 Chloride 103 Carbon Dioxide 27 Anion Gap 7 BUN 8 Creatinine 1.90 H Est Cr Clr Drug Dosing 33.5 Est GFR ( Amer) 29.4 Est GFR (Non-Af Amer) 25.3 BUN/Creatinine Ratio 4.2 L Glucose 101 H POC Glucose 150 H Calcium 8.7 Phosphorus 1.9 L Magnesium 1.8 01/19/22 01/19/22 01/20/22 18:09 20:31 05:19 WBC 7.82 RBC 3.39 L Hgb 8.9 L Hct 30.7 L MCV 90.6 MCH 26.3 MCHC 29.0 L RDW Std Deviation 77.8 H RDW Coeff of [place] 24.8 H Plt Count 164 MPV 9.1 Immature Gran % (Auto) 0.6 Neut % (Auto) 58.9 Lymph % (Auto) 22.6 [place] % (Auto) 12.0 Eos % (Auto) 5.8 Baso % (Auto) 0.1 Neut # (Auto) 4.60 Lymph # (Auto) 1.77 [place] # (Auto) 0.94 H Eos # (Auto) 0.45 Baso # (Auto) 0.01 Immature Gran # (Auto) 0.05 H Absolute Nucleated RBC 0.04 H Nucleated RBC % (auto) 0.6 Platelet Estimate Polychromasia 1+ Basophilic Stippling Occasional Sodium Potassium Chloride Carbon Dioxide Anion Gap BUN Creatinine Est Cr Clr Drug Dosing Est GFR ( Amer) Est GFR (Non-Af Amer) BUN/Creatinine Ratio Glucose POC Glucose 179 H 119 H Calcium Phosphorus Magnesium 01/20/22 01/20/22 01/20/22 05:19 07:58 11:27 WBC RBC Hgb Hct MCV MCH MCHC RDW Std Deviation RDW Coeff of [place] Plt Count MPV Immature Gran % (Auto) Neut % (Auto) Lymph % (Auto) [place] % (Auto) Eos % (Auto) Baso % (Auto) Neut # (Auto) Lymph # (Auto) [place] # (Auto) Eos # (Auto) Baso # (Auto) Immature Gran # (Auto) Absolute Nucleated RBC Nucleated RBC % (auto) Platelet Estimate Polychromasia Basophilic Stippling Sodium 136 Potassium 3.8 Chloride 102 Carbon Dioxide 29 Anion Gap 5 BUN 10 Creatinine 2.36 H D Est Cr Clr Drug Dosing 27.1 Est GFR ( Amer) 22.6 Est GFR (Non-Af Amer) 19.5 BUN/Creatinine Ratio 4.2 L Glucose 89 POC Glucose 91 101 H Calcium 8.5 Phosphorus 2.0 L Magnesium 1.7 Medications Administered Current Inpatient Medications Acetaminophen (Acetaminophen 325 Mg Tab) 650 mg PO Q4H PRN PRN Reason: Pain or Fever Stop: 02/01/22 03:17 Last Admin: 01/18/22 12:01 Dose: 650 mg Documented by: Amiodarone HCl (Amiodarone 200 Mg Tab) 200 mg PO BID [facility] Stop: 02/13/22 20:59 Last Admin: 01/18/22 08:12 Dose: 200 mg Documented by: Amiodarone HCl (Amiodarone 200 Mg Tab) 200 mg PO TIDM [facility] Stop: 02/19/22 16:59 Ascorbic Acid (Ascorbic Acid 500 Mg Tab) 250 mg PO DAILY [facility] Stop: 02/01/22 08:59 Last Admin: 01/20/22 09:23 Dose: 250 mg Documented by: Baclofen (Baclofen 10 Mg Tab) 5 mg PO QAM [facility] Stop: 02/12/22 08:59 Last Admin: 01/20/22 09:22 Dose: 5 mg Documented by: Cyanocobalamin (Cyanocobalamin (B-12) 500 Mcg Tablet) 500 mcg PO DAILY [facility] Stop: 02/01/22 08:59 Last Admin: 01/20/22 09:22 Dose: 500 mcg Documented by: Dextrose (Dextrose 50% 50 Ml Syringe) 25 - 50 ml IV UD PRN; Protocol PRN Reason: Hypoglycemia Protocol Stop: 02/01/22 03:17 Diphenhydramine HCl (Diphenhydramine Capsule 25 Mg Cap) 25 mg PO DAILY PRN PRN Reason: Itching Stop: 02/03/22 15:29 Last Admin: 01/20/22 10:50 Dose: 25 mg Documented by: Ferrous Sulfate (Ferrous Sulfate 325 Mg Tab) 325 mg PO DAILY [facility] Stop: 02/01/22 08:59 Last Admin: 01/20/22 09:21 Dose: 325 mg Documented by: Folic Acid (Folic Acid 1 Mg Tab) 1 mg PO DAILY [facility] Stop: 02/01/22 08:59 Last Admin: 01/20/22 09:21 Dose: 1 mg Documented by: Glucagon (Glucagon For Inj 1 Mg Vial) 1 mg SQ UD PRN; Protocol PRN Reason: Hypoglycemia Protocol Stop: 02/01/22 03:17 Glucose (Glucose 10 Tabs/Tube) 4 - 8 tabs PO UD PRN; Protocol PRN Reason: Hypoglycemia Protocol Stop: 02/01/22 03:17 Glucose (Glucose 40% Gel 15 Gm Tube) 15 - 30 gm PO UD PRN; Protocol PRN Reason: Hypoglycemia Protocol Stop: 02/01/22 03:17 Promethazine HCl 12.5 mg/ (Sodium Chloride) 50.5 mls @ 202 mls/hr IV Q6H PRN PRN Reason: Nausea And Vomiting Stop: 02/01/22 03:17 Last Infusion: 01/07/22 17:27 Dose: Infused Documented by: Insulin Aspart (Insulin Aspart Per Unit) 0 units SC ACHS [facility] Stop: 02/01/22 03:17 Last Admin: 01/20/22 09:15 Dose: 1 units Documented by: Levalbuterol HCl (Levalbuterol Tartrate 15 Gm Hfa.Aer.Ad) 2 puffs INH Q4R PRN PRN Reason: wheezing Stop: 02/19/22 11:26 Levothyroxine Sodium (Levothyroxine Sodium 125 Mcg Tablet) 125 mcg PO DAILYBB [facility] Stop: 02/01/22 06:29 Last Admin: 01/20/22 06:03 Dose: 125 mcg Documented by: Metoprolol Tartrate (Metoprolol Tartrate 1 Mg/Ml Vial) 5 mg IV Q6 PRN; Protocol PRN Reason: tachycardia Stop: 02/03/22 17:59 Last Admin: 01/19/22 04:17 Dose: 5 mg Documented by: Metoprolol Tartrate (Metoprolol Tartrate 25 Mg Tab) 25 mg PO TID [facility] Stop: 02/18/22 20:59 Last Admin: 01/20/22 09:21 Dose: Not Given Documented by: Midodrine (Midodrine Hcl 2.5 Mg Tab) 5 mg PO TID@0800,1200,1700 [facility] Stop: 02/19/22 16:59 Miscellaneous (Carbohydrates For Hypoglycemia ) 15 - 30 gm PO UD PRN PRN Reason: Hypoglycemia Protocol Stop: 02/01/22 03:17 Last Admin: 01/03/22 11:08 Dose: 15 gm Documented by: Multivitamins (Multivitamin Tab) 1 tab PO DAILY [facility] Stop: 02/01/22 08:59 Last Admin: 01/20/22 09:20 Dose: 1 tab Documented by: Oxycodone HCl (Oxycodone Hcl 10 Mg Tabcr (Oxycontin)) 10 mg PO BID [facility] Stop: 01/26/22 08:59 Last Admin: 01/20/22 09:20 Dose: 10 mg Documented by: Pantoprazole Sodium (Pantoprazole 40 Mg Tab) 40 mg PO DAILY PRN PRN Reason: Abdominal Pain Stop: 02/01/22 03:17 Last Admin: 01/18/22 08:14 Dose: 40 mg Documented by: Polyethylene Glycol (Polyethylene (Miralax) 17 Gm Pack) 17 gm PO DAILY PRN PRN Reason: Constipation Stop: 02/02/22 10:56 Last Admin: 01/06/22 19:16 Dose: 17 gm Documented by:
[2022-01-20] MEDS ORDERED: MIDODRINE HCL 2.5 MG TAB PO ONE ×2 (12:30→12:45)
[2022-01-20] MEDS ORDERED: AMIODARONE 200 MG TAB PO ONE (13:00)
[2022-01-20] MEDS: LEVALBUTEROL TARTRATE 15 GM HFA.AER.AD INH PRN (13:00)
--- NOTE | 2022-01-20 13:01 | Hospitalist Progress Note ---
Date of Service January 20, 2022 Assessment & Plan (1) Acute on chronic respiratory failure with hypoxia and hypercapnia: (2) Atrial fibrillation, chronic: (3) Acute on chronic renal failure: (4) Congestive heart failure: Plan: (1) History of noncompliance with medical treatment: (2) Congestive heart failure: (3) Leg edema: Plan: per Dr. El's notes with addendum: Patient is a 76 yr female with H/O DM II, hypothyroidism, hyperlipidemia, COPD, on chronic oxygen baseline 3 liters oxygen, sleep apnea not on CPAP - intolerant as per the patient, paroxysmal atrial fibrillation, cor pulmonale, chronic essential hypertension, morbid obesity, irritable bowel syndrome, stage III chronic kidney disease, mixed stress and urge incontinence, chronic pain syndrome, TIA. Patient presented 01/01 to our ED with complaint of progressive fluid retention along with worsening shortness of breath, denies fever and aspiration, reports compliance with home medication. 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 Acute Metabolic Encephalopathy -POA Likely multifactorial: Hypercarbia,Uremia, Hyponatremia, Medications H/O COPD and sleep apnea and intolerance to CPAP and/or BiPAP Chronic Oxygen dependency: 3L at rest and 4L with activity at baseline Patient prefers no ventilation Continue dialysis as per Nephrology Titrate Oxygen to keep Sats 88-92% given H/O COPD Decrease Baclofen to 5mg daily Decrease Oxycodone to 10mg BID--Hold for excess sedation Monitor any withdrawal BiPAP as needed Family understands that patient is critical and has poor prognosis Appreciate Palliative Care Input Mental status seemed to be back to baseline / awake, alert not tolerating CPAP/Bipap Acute on chronic heart failure with preserved ejection fraction STACY with CKD Possible cardiorenal syndrome Patient reports increasing bilateral lower extremity swelling prior to arrival --11/29 ECHO:Ejection fraction greater than 70%, hyperdynamic left ventricle with normal left ventricle size and normal left ventricular wall thickness. ? Med compliance Appreciate Cardiology, Nephrology Input Pt did not diuresis with IV Lasix . Continue with strict I's and O's, daily weights, fluid restriction Midodrine added for hypotension Volume status to be addressed with dialysis Permanent Catheter for HD placed on 01/10/22 Dialysis as per Nephrology Had dialysis today Received IV albumin for low BP 01/20 crea 5.2 --> 1.8 to to 2.01--> 2.3 continue HD on Sat continue to monitor closely H/O A. fib Afib RVR: Dofetilide discontinued Coreg held due to low BP Not on anticoagulation, Xarelto was stopped in past because of history of hematochezia Heart rate elevated today Amiodarone resumed today Midodrine added Possible HCAP UTI / CAUTI : Pt w/ bob at home (per patient after her last discharge), urine Cx +ve for ESBL UTI CXR: Concern for developing fibrosis versus infectious process CTAP and CT chest: Suggestive of post inflammatory fibrosis, urinary bladder wall thickening with perivesicular stranding/correlate with urinalysis. Patient started on ertapenem 01/02-->Meropenem 01/04. 01/04 MRSA negative. Completed antibiotic course Sleep apnea CPAP intolerant DM II ISS for now Monitor BGs Hypothyroidism Continue Levothyroxine Dysphagia Aspiration Precautions Speech Eval completed Pureed diet COPD Sleep apnea Does not use any CPAP COPD remains stable Patient has declined Incruse Ellipta in the past, continue with home inhalers -- Xopenex inhaler ordered Chronic pain Patient reports multiple joint pains Continue with home meds Anemia of chronic disease: Hg stable around 8 Continue with iron supplementation Received Epo, Venofer DVT Px: SCDs Re: hx of GIB Code Status DNI/DNR: as per my discussion with patient and family Disposition: PT/OT prior to discharge Prognosis is guarded plan of care discussed with patient in detail and at length all questions answered she is understanding, agreeable, comfortable with the plan of care Admission and Anticipated Discharge Date Admission Date: January 02, 2022 Subjective ff up for atrial fibrillation, acute renal failure etc seen resting in bed, not in distress less tired this AM reports itching on her back and some on her chest reports mild wheezing but no lip/tongue swelling, throat swelling no rashes no chest pain, dyspnea, palpitations, dizziness no other symptoms Review of Systems Review of Systems: all noted and negative except for above Physical Exam Physical Exam: General- oriented x 3, not in distress, speaks in sentences with no effort or accessory muscle use Eyes- anicteric Neck- no JVD Lungs- faint wheeze at the bases with mild rales good air entry bilaterally Heart- mild tachy, irregularly irregular rhythm; no murmurs Abdomen- normal bowel sounds, nondistended, soft, nontender Extremities- trace pretibial edema, no calf tenderness Neuro- alert, oriented x 3; no gross focal neurologic deficits Skin- warm & dry Results & Data Results & Data ([facility]) Vital Signs (Past 12 Hours) Vital Signs Temp Pulse Pulse Pulse Resp BP BP 01/20/22 11:03 36.5 C 115 H 24 78/51 L 01/20/22 07:56 36.6 C 132 H 22 98/66 L 01/20/22 05:42 143 H 01/20/22 05:07 17 01/20/22 04:15 36.6 C 129 H 18 99/65 L Pulse Ox 01/20/22 11:03 97 01/20/22 07:56 99 01/20/22 05:42 01/20/22 05:07 98 01/20/22 04:15 99 all noted and reviewed including below (1) Congestive heart failure Heart failure chronicity: acute Heart failure type: combined systolic and diastolic Qualified Code(s): I50.41 - Acute combined systolic (congestive) and diastolic (congestive) heart failure
[2022-01-20] MEDS: AMIODARONE 200 MG TAB PO SCH (16:34)
[2022-01-20] MEDS: ACETAMINOPHEN 325 MG TAB PO PRN (17:15)
[2022-01-20] MEDS: PROMETHAZINE HCL 12.5 MG in SODIUM CHLORIDE 0.9% 50 ML IV PRN (19:54)
[2022-01-20] MEDS ORDERED: METOPROLOL TARTRATE 25 MG TAB PO STA (22:20)
[2022-01-21] MEDS: LEVOTHYROXINE SODIUM 125 MCG TABLET PO SCH (06:20)
[2022-01-21 06:33] LABS: BUN Creatinine Ratio 4.5 (10-20); Calcium 8.4 mg/dl (8.5-10.1); Est GFR (African American) 17.5 ml/min; Est GFR (Non-African American) 15.1 ml/min; Magnesium 1.7 mg/dl (1.7-2.4); Phosphorus 2.1 mg/dl (2.5-4.9); Potassium 3.4 mmol/L (3.5-5.1)
[2022-01-21 06:40] LABS: Hematocrit (blood only) 30.5 % (37-47); Hemoglobin 8.8 g/dL (12.0-16.0); Mean Corpuscular Hgb Conc 28.9 g/dL (32-36); Mean Corpuscular Volume 90.2 fL (80-100); Mean Platelet Volume 9.1 fL (7.4-10.4); Platelet Count 184 K/uL (130-400); RDW Coefficient of Variation 25.2 % (11.5-14.5); RDW Standard Deviation 78.6 fL (36.4-46.3); Red Blood Count 3.38 M/uL (4.2-5.4); White Blood Count 9.49 K/uL (4.8-10.8)
[2022-01-21 06:49] LABS: Anisocytosis Present; Basophils # (auto) 0.03 K/uL (0-0.2); Basophils % (auto) 0.3 %; Eosinophils # (auto) 0.74 K/uL (0-0.5); Eosinophils % (auto) 7.8 %; Immature Granulocytes # (auto) 0.04 K/uL (0.00-0.02); Immature Granulocytes % (auto) 0.4 %; Lymphocytes # (auto) 1.96 K/uL (1.2-3.4); Lymphocytes % (auto) 20.7 %; Monocytes # (auto) 1.07 K/uL (0.11-0.59); Monocytes % (auto) 11.3 %; Neutrophils # (auto) 5.65 K/uL (1.4-6.5); Neutrophils % (auto) 59.5 %; Polychromasia 1+
[2022-01-21] MEDS: INSULIN ASPART PER UNIT SC SCH ×4 (08:42→21:17)
[2022-01-21] MEDS: MIDODRINE HCL 2.5 MG TAB PO SCH ×3 (08:44→16:41)
[2022-01-21] MEDS: BACLOFEN 10 MG TAB PO SCH (08:44)
[2022-01-21] MEDS: AMIODARONE 200 MG TAB PO SCH ×3 (08:44→16:41)
[2022-01-21] MEDS: MULTIVITAMIN TAB PO SCH (08:45)
[2022-01-21] MEDS: FERROUS SULFATE 325 MG TAB PO SCH (08:45)
[2022-01-21] MEDS: METOPROLOL TARTRATE 25 MG TAB PO SCH ×3 (08:45→21:16)
[2022-01-21] MEDS: FOLIC ACID 1 MG TAB PO SCH (08:45)
[2022-01-21] MEDS: CYANOCOBALAMIN (B-12) 500 MCG TABLET PO SCH (08:46)
[2022-01-21] MEDS: ASCORBIC ACID 500 MG TAB PO SCH (08:46)
[2022-01-21] MEDS: diphenhydrAMINE Capsule 25 MG CAP PO PRN (08:48)
[2022-01-21] MEDS ORDERED: DOCUSATE SODIUM/SENNA 50/8.6MG TAB PO PRN (09:40)
[2022-01-21] MEDS: POLYETHYLENE (MIRALAX) 17 GM PACK PO SCH (10:48)
[2022-01-21] MEDS: oxyCODONE HCL 10 MG TABCR (OxyCONTIN) PO SCH ×2 (10:48→21:17)
[2022-01-21] MEDS: PROMETHAZINE HCL 12.5 MG in SODIUM CHLORIDE 0.9% 50 ML IV PRN (10:48)
[2022-01-21] MEDS: LIDOCAINE 5% 1 PATCH TD SCH (10:48)
--- NOTE | 2022-01-21 11:00 | Hospitalist Progress Note ---
Date of Service January 21, 2022 Assessment & Plan (1) Acute on chronic respiratory failure with hypoxia and hypercapnia: (2) Atrial fibrillation, chronic: (3) Acute on chronic renal failure: (4) Congestive heart failure: Plan: (1) History of noncompliance with medical treatment: (2) Congestive heart failure: (3) Leg edema: Plan: per Dr. El's notes with addendum: Patient is a 76 yr female with H/O DM II, hypothyroidism, hyperlipidemia, COPD, on chronic oxygen baseline 3 liters oxygen, sleep apnea not on CPAP - intolerant as per the patient, paroxysmal atrial fibrillation, cor pulmonale, chronic essential hypertension, morbid obesity, irritable bowel syndrome, stage III chronic kidney disease, mixed stress and urge incontinence, chronic pain syndrome, TIA. Patient presented 01/01 to our ED with complaint of progressive fluid retention along with worsening shortness of breath, denies fever and aspiration, reports compliance with home medication. 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 Acute Metabolic Encephalopathy -POA Likely multifactorial: Hypercarbia,Uremia, Hyponatremia, Medications H/O COPD and sleep apnea and intolerance to CPAP and/or BiPAP Chronic Oxygen dependency: 3L at rest and 4L with activity at baseline Patient prefers no ventilation Continue dialysis as per Nephrology Titrate Oxygen to keep Sats 88-92% given H/O COPD Decrease Baclofen to 5mg daily Decrease Oxycodone to 10mg BID--Hold for excess sedation Monitor any withdrawal BiPAP as needed Family understands that patient is critical and has poor prognosis Appreciate Palliative Care Input Mental status seemed to be back to baseline 4/3 awake, alert not tolerating CPAP/Bipap Acute on chronic heart failure with preserved ejection fraction STACY with CKD Possible cardiorenal syndrome Patient reports increasing bilateral lower extremity swelling prior to arrival --11/29 ECHO:Ejection fraction greater than 70%, hyperdynamic left ventricle with normal left ventricle size and normal left ventricular wall thickness. ? Med compliance Appreciate Cardiology, Nephrology Input Pt did not diuresis with IV Lasix . Continue with strict I's and O's, daily weights, fluid restriction Midodrine added for hypotension Volume status to be addressed with dialysis Permanent Catheter for HD placed on 01/10/22 Dialysis as per Nephrology Had dialysis today Received IV albumin for low BP 01/21 crea 5.2 --> 1.8 to to 2.01--> 2.9 continue HD on Sat continue to monitor closely H/O A. fib Afib RVR: Dofetilide discontinued Coreg held due to low BP Not on anticoagulation, Xarelto was stopped in past because of history of hematochezia HR controlled this morning Amiodarone 200mg TID increased Midodrine 5mg TID monitor closely Constipation Miralax and Senokot S Possible HCAP UTI / CAUTI : Pt w/ bob at home (per patient after her last discharge), urine Cx +ve for ESBL UTI CXR: Concern for developing fibrosis versus infectious process CTAP and CT chest: Suggestive of post inflammatory fibrosis, urinary bladder wall thickening with perivesicular stranding/correlate with urinalysis. Patient started on ertapenem 01/02-->Meropenem 01/04. 01/04 MRSA negative. Completed antibiotic course Sleep apnea CPAP intolerant DM II ISS for now Monitor BGs Hypothyroidism Continue Levothyroxine Dysphagia Aspiration Precautions Speech Eval completed Pureed diet COPD Sleep apnea Does not use any CPAP COPD remains stable Patient has declined Incruse Ellipta in the past, continue with home inhalers -- Xopenex inhaler ordered Chronic pain Patient reports multiple joint pains Continue with home meds Anemia of chronic disease: Hg stable around 8 Continue with iron supplementation Received Epo, Venofer DVT Px: SCDs Re: hx of GIB Code Status DNI/DNR: as per my discussion with patient and family Disposition: PT/OT prior to discharge Prognosis is guarded plan of care discussed with patient in detail and at length all questions answered she is understanding, agreeable, comfortable with the plan of care Admission and Anticipated Discharge Date Admission Date: January 02, 2022 Subjective ff up for a fib, acute renal failure, etc seen resting in bed, comfortable states she feels tired this morning did not sleep well last night breathing is better no chest pain, dyspnea, palpitations, dizziness had some vomiting this morning no BM x few days no other symptoms Review of Systems Review of Systems: all noted and negative except for above Physical Exam Physical Exam: General- oriented x 3, not in distress, speaks in sentences with no effort or accessory muscle use Eyes- anicteric Neck- no JVD Lungs- clear breath sounds bilaterally, no rales/wheezes Heart- normal rate, irregularly irregular rhythm; no murmurs Abdomen- normal bowel sounds, nondistended, soft, nontender Extremities- trace pretibial edema, no calf tenderness Neuro- alert, oriented x 3; no gross focal neurologic deficits Skin- warm & dry Results & Data Results & Data ([facility]) Vital Signs (Past 12 Hours) Vital Signs Temp Pulse Pulse Pulse Pulse Resp BP 01/21/22 07:38 36.7 C 114 H 20 118/62 01/21/22 04:47 36.9 C 103 H 24 104/64 01/21/22 01:05 120 H 95/59 L 01/21/22 00:33 131 H 01/20/22 23:44 121 H 19 85/59 L Pulse Ox 01/21/22 07:38 96 01/21/22 04:47 96 01/21/22 01:05 01/21/22 00:33 01/20/22 23:44 all noted and reviewed including below (1) Congestive heart failure Heart failure chronicity: acute Heart failure type: combined systolic and diastolic Qualified Code(s): I50.41 - Acute combined systolic (congestive) and diastolic (congestive) heart failure
--- NOTE | 2022-01-21 11:56 | Nephrology Progress Note ---
Date of Service January 21, 2022 Assessment & Plan (1) Acute on chronic renal failure: Plan: oliogoanuric dialysis dependent ischemic ATN after several days of AF/F, tach ycardia, and hypotension and with pre-existing cardiorenal syndrome. Baseline creatinine is somewhat labile but runs generally to high ones. Her creatinine at d/c on 12/25 was 1.4; was 2 on admission. First day of dialysis January 10. Overall prognosis very poor; may need to revisit goals of care. She had dialysis 01/19/22. -Next dialysis will be Saturday Daily basic metabolic panel -Continue low-dose Midodrine (2) Electrolyte and fluid disorder: Plan: Profound volume overload\anasarca in the setting of lower blood pressures inte rmittently as low as the 80s to 90s systolic and HR to 130-140s. Chemistries acceptable for now. monitor for need need low sodium diet and fluid limit 1.2 L daily Strict intake and output to continue >volume status will only worsen if HR and rhythm, BP uncontrolled Admission and Anticipated Discharge Date Admission Date: January 02, 2022 Subjective Seen for acute renal failure. She complains of shortness of breath. She also chronic pain. Blood pressure intermittently low Review of Systems Review of Systems: All other systems were reviewed and negative except as noted in HPI Physical Exam Physical Exam: General exam: Appears comfortable, no acute distress.On oxygen nasal cannula HEENT: Pupils are equal and reactive to light Neck: No JVD, neck is supple trachea is midline Respiratory system: wheezing bilaterally. Gastrointestinal: Abdomen is soft, non distended, non tender, bowel sounds are present CVS: Regular rate and rhythm. No murmurs, rubs or gallops Musculoskeletal: No joint or muscle tenderness Extremities: Non tender, no edema, peripheral pulses are present Neuro: Oriented, no tremors, no focal neurological deficits Skin: No rashes Results & Data ([facility] [place]) Vital Signs (Past 12 Hours) Vital Signs Temp Pulse Pulse Pulse Pulse Resp BP 01/21/22 11:03 37.1 C 125 H 19 117/47 L 01/21/22 07:38 36.7 C 114 H 20 118/62 01/21/22 04:47 36.9 C 103 H 24 104/64 01/21/22 01:05 120 H 95/59 L 01/21/22 00:33 131 H Pulse Ox 01/21/22 11:03 98 01/21/22 07:38 96 01/21/22 04:47 96 01/21/22 01:05 01/21/22 00:33 Laboratory Results 01/21/22 05:27 01/21/22 01/21/22 05:27 05:27 WBC 9.49 RBC 3.38 L MCV 90.2 MCH 26.0 MCHC 28.9 L RDW Std Deviation 78.6 H RDW Coeff of Lawrence 25.2 H Plt Count 184 MPV 9.1 Phosphorus 2.1 L
[2022-01-21] MEDS ORDERED: METOPROLOL TARTRATE 1 MG/ML VIAL IV STA (12:13)
--- NOTE | 2022-01-21 12:19 | Cardiology Progress Note ---
Date of Service January 21, 2022 Assessment & Plan (1) Acute on chronic renal failure: (2) Long COVID: (3) Acute on chronic respiratory failure with hypoxia and hypercapnia: (4) Chronic hypotension: (5) Atrial fibrillation, chronic: Plan: The patient remains in persistent atrial fibrillation however, her heart rates have improved a little bit with the increased midodrine dosage and improvement in her blood pressure. Nursing staff has been able to give metoprolol orally however, the patient did vomit this morning soon after she received this medication. Going to give the patient a small dose of 2.5 mg of metoprolol IV now. Hopefully by her afternoon dose of metoprolol she will be able to take this medication. My hope is that eventually we can continue the metoprolol and stop the amiodarone. We may have to increase her midodrine further in order to increase the beta-daphne. Admission and Anticipated Discharge Date Admission Date: January 02, 2022 Subjective The patient is resting comfortably. Review of Systems Review of Systems: Review of Systems: See HPI for pertinent positives. All other 10 point review of systems are negative. Physical Exam Physical Exam: General: no acute distress and stated age Head: normocephalic, no masses, lesions, tenderness or abnormalities Eyes: conjunctiva are pink and non-injected, sclera clear Neck: supple, no adenopathy, no bruits, normal jugular venous pulse, no hepatojugular reflux Chest: normal shape and normal respiratory effort Lungs: clear to auscultation and percussion Cardiac Exam: - irregular rate & rhythm, no murmurs gallops or rubs - normal S1, normal S2 Pulses: 2(+) throughout Abdomen: abdomen soft, non-tender, no abnormal masses and no hepatosplenomegaly Musculoskeletal: no gait disturbance, no joint inflammation, no deforming arthritis Extremities: no edema and no cyanosis Neuro: grossly normal exam Results & Data ([facility]) Vital Signs (Past 12 Hours) Vital Signs Temp Pulse Pulse Pulse Pulse Resp BP 01/21/22 11:03 37.1 C 125 H 19 117/47 L 01/21/22 07:38 36.7 C 114 H 20 118/62 01/21/22 04:47 36.9 C 103 H 24 104/64 01/21/22 01:05 120 H 95/59 L 01/21/22 00:33 131 H Pulse Ox 04/03/22 11:03 98 01/21/22 07:38 96 01/21/22 04:47 96 01/21/22 01:05 01/21/22 00:33 Laboratory Results Laboratory Results - last 24 hr 01/20/22 01/20/22 01/21/22 16:28 20:25 05:27 WBC 9.49 RBC 3.38 L Hgb 8.8 L Hct 30.5 L MCV 90.2 MCH 26.0 MCHC 28.9 L RDW Std Deviation 78.6 H RDW Coeff of Lawrence 25.2 H Plt Count 184 MPV 9.1 Immature Gran % (Auto) 0.4 Neut % (Auto) 59.5 Lymph % (Auto) 20.7 Pierce % (Auto) 11.3 Eos % (Auto) 7.8 Baso % (Auto) 0.3 Neut # (Auto) 5.65 Lymph # (Auto) 1.96 Pierce # (Auto) 1.07 H Eos # (Auto) 0.74 H Baso # (Auto) 0.03 Immature Gran # (Auto) 0.04 H Polychromasia 1+ Anisocytosis Present Sodium Potassium Chloride Carbon Dioxide Anion Gap BUN Creatinine Est Cr Clr Drug Dosing Est GFR ( Amer) Est GFR (Non-Af Amer) BUN/Creatinine Ratio Glucose POC Glucose 101 H 108 H Calcium Phosphorus Magnesium 01/21/22 01/21/22 01/21/22 05:27 07:40 10:30 WBC RBC Hgb Hct MCV MCH MCHC RDW Std Deviation RDW Coeff of [place] Plt Count MPV Immature Gran % (Auto) Neut % (Auto) Lymph % (Auto) Pierce % (Auto) Eos % (Auto) Baso % (Auto) Neut # (Auto) Lymph # (Auto) Pierce # (Auto) Eos # (Auto) Baso # (Auto) Immature Gran # (Auto) Polychromasia Anisocytosis Sodium 135 L Potassium 3.4 L Chloride 100 Carbon Dioxide 29 Anion Gap 6 BUN 13 Creatinine 2.91 H D Est Cr Clr Drug Dosing 22.0 Est GFR ( Amer) 17.5 Est GFR (Non-Af Amer) 15.1 BUN/Creatinine Ratio 4.5 L Glucose 101 H POC Glucose 99 137 H Calcium 8.4 L Phosphorus 2.1 L Magnesium 1.7 01/21/22 11:26 WBC RBC Hgb Hct MCV MCH MCHC RDW Std Deviation RDW Coeff of Lawrence Plt Count MPV Immature Gran % (Auto) Neut % (Auto) Lymph % (Auto) Pierce % (Auto) Eos % (Auto) Baso % (Auto) Neut # (Auto) Lymph # (Auto) Pierce # (Auto) Eos # (Auto) Baso # (Auto) Immature Gran # (Auto) Polychromasia Anisocytosis Sodium Potassium Chloride Carbon Dioxide Anion Gap BUN Creatinine Est Cr Clr Drug Dosing Est GFR ( Amer) Est GFR (Non-Af Amer) BUN/Creatinine Ratio Glucose POC Glucose 124 H Calcium Phosphorus Magnesium Medications Administered Current Inpatient Medications Acetaminophen (Acetaminophen 325 Mg Tab) 650 mg PO Q4H PRN PRN Reason: Pain or Fever Stop: 02/01/22 03:17 Last Admin: 01/20/22 17:15 Dose: 650 mg Documented by: Amiodarone HCl (Amiodarone 200 Mg Tab) 200 mg PO TIDM [facility] Stop: 02/19/22 16:59 Last Admin: 01/21/22 11:57 Dose: 200 mg Documented by: Ascorbic Acid (Ascorbic Acid 500 Mg Tab) 250 mg PO DAILY YELITZA Stop: 02/01/22 08:59 Last Admin: 01/21/22 08:46 Dose: 250 mg Documented by: Baclofen (Baclofen 10 Mg Tab) 5 mg PO QAM YELITZA Stop: 02/12/22 08:59 Last Admin: 01/21/22 08:44 Dose: 5 mg Documented by: Cyanocobalamin (Cyanocobalamin (B-12) 500 Mcg Tablet) 500 mcg PO DAILY YELITZA Stop: 02/01/22 08:59 Last Admin: 01/21/22 08:46 Dose: 500 mcg Documented by: Dextrose (Dextrose 50% 50 Ml Syringe) 25 - 50 ml IV UD PRN; Protocol PRN Reason: Hypoglycemia Protocol Stop: 02/01/22 03:17 Diphenhydramine HCl (Diphenhydramine Capsule 25 Mg Cap) 25 mg PO DAILY PRN PRN Reason: Itching Stop: 02/03/22 15:29 Last Admin: 01/21/22 08:48 Dose: 25 mg Documented by: Ferrous Sulfate (Ferrous Sulfate 325 Mg Tab) 325 mg PO DAILY YELITZA Stop: 02/01/22 08:59 Last Admin: 01/21/22 08:45 Dose: 325 mg Documented by: Folic Acid (Folic Acid 1 Mg Tab) 1 mg PO DAILY YELITZA Stop: 02/01/22 08:59 Last Admin: 01/21/22 08:45 Dose: 1 mg Documented by: Glucagon (Glucagon For Inj 1 Mg Vial) 1 mg SQ UD PRN; Protocol PRN Reason: Hypoglycemia Protocol Stop: 02/01/22 03:17 Glucose (Glucose 10 Tabs/Tube) 4 - 8 tabs PO UD PRN; Protocol PRN Reason: Hypoglycemia Protocol Stop: 02/01/22 03:17 Glucose (Glucose 40% Gel 15 Gm Tube) 15 - 30 gm PO UD PRN; Protocol PRN Reason: Hypoglycemia Protocol Stop: 02/01/22 03:17 Heparin Sodium (Porcine) (Heparin Sod (Porcine) 1000 Unit/Ml) 2,000 units IV ONE ONE Stop: 01/22/22 07:01 Heparin Sodium (Porcine) (Heparin Sod (Porcine) 1000 Unit/Ml) 400 units IV Q1H YELITZA Stop: 01/22/22 09:01 Promethazine HCl 12.5 mg/ (Sodium Chloride) 50.5 mls @ 202 mls/hr IV Q6H PRN PRN Reason: Nausea And Vomiting Stop: 02/01/22 03:17 Last Infusion: 01/21/22 11:21 Dose: Infused Documented by: Insulin Aspart (Insulin Aspart Per Unit) 0 units SC ACHS YELITZA Stop: 02/01/22 03:17 Last Admin: 01/21/22 11:57 Dose: Not Given Documented by: Levalbuterol HCl (Levalbuterol Tartrate 15 Gm Hfa.Aer.Ad) 2 puffs INH Q4R PRN PRN Reason: wheezing Stop: 02/19/22 11:26 Last Admin: 01/20/22 13:00 Dose: 2 puffs Documented by: Levothyroxine Sodium (Levothyroxine Sodium 125 Mcg Tablet) 125 mcg PO DAILYBB [facility] Stop: 02/01/22 06:29 Last Admin: 01/21/22 06:20 Dose: 125 mcg Documented by: Lidocaine (Lidocaine 5% 1 Patch) 1 patch TD QAM YELITZA Stop: 02/20/22 09:59 Last Admin: 01/21/22 10:48 Dose: 1 patch Documented by: Metoprolol Tartrate (Metoprolol Tartrate 1 Mg/Ml Vial) 5 mg IV Q6 PRN; Protocol PRN Reason: tachycardia Stop: 02/03/22 17:59 Last Admin: 01/19/22 04:17 Dose: 5 mg Documented by: Metoprolol Tartrate (Metoprolol Tartrate 25 Mg Tab) 25 mg PO TID [facility] Stop: 02/18/22 20:59 Last Admin: 01/21/22 08:45 Dose: 25 mg Documented by: Midodrine (Midodrine Hcl 2.5 Mg Tab) 5 mg PO TID@0800,1200,1700 YELITZA Stop: 02/19/22 16:59 Last Admin: 01/21/22 11:58 Dose: 5 mg Documented by: Miscellaneous (Carbohydrates For Hypoglycemia ) 15 - 30 gm PO UD PRN PRN Reason: Hypoglycemia Protocol Stop: 02/01/22 03:17 Last Admin: 01/03/22 11:08 Dose: 15 gm Documented by: Miscellaneous (Remove Lidoderm Patch) 1 ea N/A DAILY@2100 [facility] Stop: 02/20/22 20:59 Multivitamins (Multivitamin Tab) 1 tab PO DAILY [facility] Stop: 02/01/22 08:59 Last Admin: 01/21/22 08:45 Dose: 1 tab Documented by: Oxycodone HCl (Oxycodone Hcl 10 Mg Tabcr (Oxycontin)) 10 mg PO BID [facility] Stop: 01/26/22 08:59 Last Admin: 01/21/22 10:48 Dose: 10 mg Documented by: Pantoprazole Sodium (Pantoprazole 40 Mg Tab) 40 mg PO DAILY PRN PRN Reason: Abdominal Pain Stop: 02/01/22 03:17 Last Admin: 01/18/22 08:14 Dose: 40 mg Documented by: Polyethylene Glycol (Polyethylene (Miralax) 17 Gm Pack) 17 gm PO DAILY PRN PRN Reason: Constipation Stop: 02/02/22 10:56 Last Admin: 01/06/22 19:16 Dose: 17 gm Documented by: Polyethylene Glycol (Polyethylene (Miralax) 17 Gm Pack) 17 gm PO DAILY [facility] Stop: 02/20/22 09:59 Last Admin: 01/21/22 10:48 Dose: 17 gm Documented by: Senna/Docusate Sodium (Docusate Sodium/Senna 50/8.6mg Tab) 1 tab PO DAILY PRN PRN Reason: constipation Stop: 02/20/22 09:39
[2022-01-22] MEDS: LEVALBUTEROL TARTRATE 15 GM HFA.AER.AD INH PRN ×2 (02:26→19:20)
[2022-01-22] MEDS: LEVOTHYROXINE SODIUM 125 MCG TABLET PO SCH (06:05)
[2022-01-22 06:26] LABS: BUN Creatinine Ratio 4.5 (10-20); Calcium 8.5 mg/dl (8.5-10.1); Creatinine Clr Calc Pharmacy 19.1 ml/min; Est GFR (African American) 14.7 ml/min; Est GFR (Non-African American) 12.7 ml/min; Magnesium 1.7 mg/dl (1.7-2.4); Potassium 3.9 mmol/L (3.5-5.1)
[2022-01-22] MEDS: MIDODRINE HCL 2.5 MG TAB PO SCH ×3 (06:26→16:59)
[2022-01-22] MEDS ORDERED: HEPARIN SOD (PORCINE) 1000 UNIT/ML IV ONE (07:00)
[2022-01-22 07:33] LABS: Hematocrit (blood only) 29.2 % (37-47); Hemoglobin 8.5 g/dL (12.0-16.0); Mean Corpuscular Hemoglobin 26.3 pg (25-34); Mean Corpuscular Hgb Conc 29.1 g/dL (32-36); Mean Corpuscular Volume 90.4 fL (80-100); Mean Platelet Volume 9.3 fL (7.4-10.4); Platelet Count 187 K/uL (130-400); RDW Coefficient of Variation 25.4 % (11.5-14.5); RDW Standard Deviation 80.8 fL (36.4-46.3); Red Blood Count 3.23 M/uL (4.2-5.4); White Blood Count 8.29 K/uL (4.8-10.8)
[2022-01-22 07:45] LABS: ALC (manual) 2.04 K/uL (1.2-3.4); ANC (manual) 4.87 K/uL (1.4-6.5); Anisocytosis Present; Basophils # (manual) 0.15 K/uL (0-0.2); Basophils % (manual) 1.8 %; Eosinophils # (manual) 0.73 K/uL (0-0.5); Eosinophils % (manual) 8.8 %; Lymphocytes # (manual) 2.04 K/uL (1.2-3.4); Lymphocytes % (manual) 24.6 %; Monocytes # (manual) 0.51 K/uL (0.11-0.59); Monocytes % (manual) 6.1 %; Neutrophils # (manual) 4.87 K/uL (1.4-6.5); Neutrophils % (manual) 58.7 %; Polychromasia 1+
--- NOTE | 2022-01-22 08:14 | Nephrology Progress Note ---
Date of Service January 22, 2022 Assessment & Plan Admission and Anticipated Discharge Date Admission Date: January 02, 2022 Subjective Assessment & Plan (1) Acute on chronic renal failure: Plan: olioguric dialysis dependent ischemic ATN after several days of AF/F, tachycardia, and hypotension and with pre-existing cardiorenal syndrome. Baseline creatinine is somewhat labile but runs generally to high ones. Her creatinine at d/c on 12/25 was 1.4; was 2 on admission. First day of dialysis January 10. Overall prognosis very poor; may need to revisit goals of care. She had dialysis 01/19/22. -Next dialysis will be Later today. Daily basic metabolic panel -Continue low-dose Midodrine (2) Electrolyte and fluid disorder: Plan: Profound volume overload\anasarca in the setting of lower blood pressures intermittently as low as the 80s to 90s systolic and HR to 130-140s. However lately volume is much better after 2 weeks of Dialysis. Chemistries acceptable for now. monitor for need need low sodium diet and fluid limit 1.2 L daily Strict intake and output to continue Subjective Seen for acute renal failure. She complains of shortness of breath. She also chronic pain. Blood pressure intermittently low but ?? accurate Review of Systems Review of Systems: All other systems were reviewed and negative except as noted in HPI Physical Exam Physical Exam: General exam: Appears comfortable, no acute distress.On oxygen nasal cannula HEENT: Pupils are equal and reactive to light Neck: No JVD, neck is supple trachea is midline Respiratory system: wheezing bilaterally. Gastrointestinal: Abdomen is soft, non distended, non tender, bowel sounds are present CVS: Regular rate and rhythm. No murmurs, rubs or gallops Musculoskeletal: No joint or muscle tenderness Extremities: Non tender, no edema, peripheral pulses are present Neuro: Oriented, no tremors, no focal neurological deficits Skin: No rashes Results & Data ([facility]) Vital Signs (Past 12 Hours) Vital Signs Temp Pulse Pulse Pulse Resp BP Pulse Ox 01/22/22 07:08 36.9 C 103 H 18 93/60 L 97 01/22/22 03:16 36.5 C 104 H 22 90/48 L 97 01/22/22 00:51 36.5 C 96 H 24 93/61 L 97 01/21/22 23:13 116 H 01/21/22 21:10 114/88
[2022-01-22] MEDS: INSULIN ASPART PER UNIT SC SCH ×4 (08:25→20:59)
[2022-01-22] MEDS: METOPROLOL TARTRATE 25 MG TAB PO SCH (08:26)
[2022-01-22] MEDS: MULTIVITAMIN TAB PO SCH (08:33)
[2022-01-22] MEDS: AMIODARONE 200 MG TAB PO SCH ×3 (08:33→16:58)
[2022-01-22] MEDS: CYANOCOBALAMIN (B-12) 500 MCG TABLET PO SCH (08:33)
[2022-01-22] MEDS: FERROUS SULFATE 325 MG TAB PO SCH (08:33)
[2022-01-22] MEDS: BACLOFEN 10 MG TAB PO SCH (08:33)
[2022-01-22] MEDS: ASCORBIC ACID 500 MG TAB PO SCH (08:33)
[2022-01-22] MEDS: FOLIC ACID 1 MG TAB PO SCH (08:34)
[2022-01-22] MEDS: oxyCODONE HCL 10 MG TABCR (OxyCONTIN) PO SCH ×2 (08:34→21:09)
[2022-01-22] MEDS: LIDOCAINE 5% 1 PATCH TD SCH (08:34)
[2022-01-22] MEDS: POLYETHYLENE (MIRALAX) 17 GM PACK PO SCH (08:35)
[2022-01-22] MEDS ORDERED: LACTULOSE SYRUP 10 GM/15 ML BTL 960 ML PO PRN (10:12)
--- NOTE | 2022-01-22 10:16 | Cardiology Progress Note ---
Date of Service January 22, 2022 Assessment & Plan (1) Acute on chronic renal failure: (2) Long COVID: (3) Acute on chronic respiratory failure with hypoxia and hypercapnia: (4) Chronic hypotension: (5) Atrial fibrillation, chronic: Plan: Persistent atrial fibrillation. Attempt to control rate with beta-daphne therapy and amiodarone for now. Will discuss switching metoprolol tartrate to metoprolol succinate at [address] Law. 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 ? Future candidate for pacemaker implantation followed by AVJ ablation Hypotension. Continue midodrine Acute on chronic respiratory failure with hypoxia and hypercapnia: Congestive heart failure. Volume managed via hemodialysis Acute on chronic renal failure. As per Nephrology Admission and Anticipated Discharge Date Admission Date: January 02, 2022 Supervising Physician Co-Signing Physician Notes Patient was seen and personally examined. Assessment as above. Patient with difficulties with chronic atrial fibrillation rate control currently as in past. Previously reviewed and maintain sinus rhythm with dofetilide though contraindicated in the setting of renal failure. Currently on amiodarone with upward titration of beta-daphne. Calcium channel daphne contraindicated due to low blood pressures. Rates are during driven due to chronic pain issues possible opioid withdrawal with patient receiving significantly lower dosing than using in-home. May optimally require AV junction ablation and pacer insertion though procedure risks formidable Subjective Patient seen and examined during hemodialysis treatment session Chart, medications, and telemetry reviewed. Complaints: Cough productive of mucous. Mild intermittent nausea. Increased heart rates especially with acute on chronic back pain. No chest pain. No PND. No dizziness or near syncope Telemetry: Persistent atrial fibrillation since 01/18/2022 at 15:15 Physical Exam Physical Exam: General: A&Ox3. HENT: Atraumatic. Eyes: PER. Conjunctiva pink, sclera clear. Neck: Very thick. Unable to appreciate for JVD. Heart: Distant heart sounds. Irregularly irregular around 100 bpm. No murmur appreciated. Lungs: Clear to auscultation anteriorly. Abdomen: +BS. Soft. Nontender. No masses or organomegaly. Extremities: Gloves removed, cool, without cyanosis or clubbing. No significant peripheral edema. Limited neurological examination is without focal deficits. Results & Data ([facility]) Vital Signs (Past 12 Hours) Vital Signs Temp Pulse Pulse Pulse Resp BP BP 01/22/22 10:00 121 H 89/55 L 01/22/22 09:30 122 H 74/53 L 01/22/22 09:00 103 H 82/57 L 01/22/22 08:44 36.8 C 101 H 01/22/22 07:08 36.9 C 103 H 18 93/60 L 01/22/22 03:16 36.5 C 104 H 22 90/48 L 01/22/22 00:51 36.5 C 96 H 24 93/61 L 01/21/22 23:13 116 H Pulse Ox 01/22/22 10:00 01/22/22 09:30 01/22/22 09:00 01/22/22 08:44 01/22/22 07:08 97 01/22/22 03:16 97 01/22/22 00:51 97 01/21/22 23:13 Laboratory Results Laboratory Results - last 24 hr 01/21/22 01/21/22 01/21/22 10:30 11:26 16:10 WBC RBC Hgb Hct MCV MCH MCHC RDW Std Deviation RDW Coeff of Lawrence Plt Count MPV Immature Gran % (Auto) Neut % (Auto) Lymph % (Auto) [place] % (Auto) Eos % (Auto) Baso % (Auto) Neut # (Auto) Lymph # (Auto) [place] # (Auto) Eos # (Auto) Baso # (Auto) Immature Gran # (Auto) Absolute Nucleated RBC Nucleated RBC % (auto) Neutrophils % (Manual) Band Neutrophils % Lymphocytes % (Manual) Prolymphocyte % Reactive Lymphs % (Man) Monocytes % (Manual) Eosinophils % (Manual) Basophils % (Manual) Metamyelocytes % (Man) Myelocytes % (Man) Promyelocytes % (Man) Blast Cells % (Manual) Plasma Cell % (Manual) Other Cells % Nucleated RBC % Neutrophils # (Manual) Band Neutrophils # Total Absolute Neuts Lymphocytes # (Manual) Prolymphocyte # Reactive Lymphs # Total Abs Lymphocytes Monocytes # (Manual) Eosinophils # (Manual) Basophils # (Manual) Metamyelocytes # (Man) Myelocytes # (Manual) Promyelocytes # (Man) Blast Cells # (Man) Plasma Cell # (Manual) Other Cells # Nucleated RBCs # (Man) Hypersegmented Neuts Hyposegmented Neuts Hypogranular Neuts Large Granular Lymphs # Lrg Granular Lymphs Hairy Cells Smudge Cells Toxic Granulation Toxic Vacuolation Dohle Bodies Bailee Rods Platelet Estimate Hypogranular Platelets Clumped Platelets Giant Platelets Platelet Satelliting RBC Morphology Polychromasia Hypochromasia Poikilocytosis Basophilic Stippling Anisocytosis Microcytosis Macrocytosis Spherocytes Pappenheimer Bodies Sickle Cells Target Cells Tear Drop Cells Ovalocytes Stomatocytes [place] Bodies Echinocytes Acanthocytes (Spur) Rouleaux RBC Agglutinates Schistocytes RBC Morph Comment Sezary Cell Sodium Potassium Chloride Carbon Dioxide Anion Gap BUN Creatinine Est Cr Clr Drug Dosing Est GFR ( Amer) Est GFR (Non-Af Amer) BUN/Creatinine Ratio Glucose POC Glucose 137 H 124 H 112 H Calcium Phosphorus Magnesium 01/21/22 01/22/22 01/22/22 20:56 05:41 05:41 WBC Cancelled RBC Cancelled Hgb Cancelled Hct Cancelled MCV Cancelled MCH Cancelled MCHC Cancelled RDW Std Deviation Cancelled RDW Coeff of [place] Cancelled Plt Count Cancelled MPV Cancelled Immature Gran % (Auto) Cancelled Neut % (Auto) Cancelled Lymph % (Auto) Cancelled [place] % (Auto) Cancelled Eos % (Auto) Cancelled Baso % (Auto) Cancelled Neut # (Auto) Cancelled Lymph # (Auto) Cancelled [place] # (Auto) Cancelled Eos # (Auto) Cancelled Baso # (Auto) Cancelled Immature Gran # (Auto) Cancelled Absolute Nucleated RBC Cancelled Nucleated RBC % (auto) Cancelled Neutrophils % (Manual) Cancelled Band Neutrophils % Cancelled Lymphocytes % (Manual) Cancelled Prolymphocyte % Cancelled Reactive Lymphs % (Man) Cancelled Monocytes % (Manual) Cancelled Eosinophils % (Manual) Cancelled Basophils % (Manual) Cancelled Metamyelocytes % (Man) Cancelled Myelocytes % (Man) Cancelled Promyelocytes % (Man) Cancelled Blast Cells % (Manual) Cancelled Plasma Cell % (Manual) Cancelled Other Cells % Cancelled Nucleated RBC % Cancelled Neutrophils # (Manual) Cancelled Band Neutrophils # Cancelled Total Absolute Neuts Cancelled Lymphocytes # (Manual) Cancelled Prolymphocyte # Cancelled Reactive Lymphs # Cancelled Total Abs Lymphocytes Cancelled Monocytes # (Manual) Cancelled Eosinophils # (Manual) Cancelled Basophils # (Manual) Cancelled Metamyelocytes # (Man) Cancelled Myelocytes # (Manual) Cancelled Promyelocytes # (Man) Cancelled Blast Cells # (Man) Cancelled Plasma Cell # (Manual) Cancelled Other Cells # Cancelled Nucleated RBCs # (Man) Cancelled Hypersegmented Neuts Cancelled Hyposegmented Neuts Cancelled Hypogranular Neuts Cancelled Large Granular Lymphs Cancelled # Lrg Granular Lymphs Cancelled Hairy Cells Cancelled Smudge Cells Cancelled Toxic Granulation Cancelled Toxic Vacuolation Cancelled Dohle Bodies Cancelled Bailee Rods Cancelled Platelet Estimate Cancelled Hypogranular Platelets Cancelled Clumped Platelets Cancelled Giant Platelets Cancelled Platelet Satelliting Cancelled RBC Morphology Cancelled Polychromasia Cancelled Hypochromasia Cancelled Poikilocytosis Cancelled Basophilic Stippling Cancelled Anisocytosis Cancelled Microcytosis Cancelled Macrocytosis Cancelled Spherocytes Cancelled Pappenheimer Bodies Cancelled Sickle Cells Cancelled Target Cells Cancelled Tear Drop Cells Cancelled Ovalocytes Cancelled Stomatocytes Cancelled [place] Bodies Cancelled Echinocytes Cancelled Acanthocytes (Spur) Cancelled Rouleaux Cancelled RBC Agglutinates Cancelled Schistocytes Cancelled RBC Morph Comment Cancelled Sezary Cell Cancelled Sodium 132 L Potassium 3.9 Chloride 101 Carbon Dioxide 21 Anion Gap 10 BUN 15 Creatinine 3.36 H D Est Cr Clr Drug Dosing 19.1 Est GFR ( Amer) 14.7 Est GFR (Non-Af Amer) 12.7 BUN/Creatinine Ratio 4.5 L Glucose 90 POC Glucose 96 Calcium 8.5 Phosphorus 3.0 Magnesium 1.7 01/22/22 01/22/22 06:28 07:09 WBC 8.29 RBC 3.23 L Hgb 8.5 L Hct 29.2 L MCV 90.4 MCH 26.3 MCHC 29.1 L RDW Std Deviation 80.8 H RDW Coeff of Lawrence 25.4 H Plt Count 187 MPV 9.3 Immature Gran % (Auto) Neut % (Auto) Lymph % (Auto) [place] % (Auto) Eos % (Auto) Baso % (Auto) Neut # (Auto) Lymph # (Auto) [place] # (Auto) Eos # (Auto) Baso # (Auto) Immature Gran # (Auto) Absolute Nucleated RBC Nucleated RBC % (auto) Neutrophils % (Manual) 58.7 Band Neutrophils % Lymphocytes % (Manual) 24.6 Prolymphocyte % Reactive Lymphs % (Man) Monocytes % (Manual) 6.1 Eosinophils % (Manual) 8.8 Basophils % (Manual) 1.8 Metamyelocytes % (Man) Myelocytes % (Man) Promyelocytes % (Man) Blast Cells % (Manual) Plasma Cell % (Manual) Other Cells % Nucleated RBC % Neutrophils # (Manual) 4.87 Band Neutrophils # Total Absolute Neuts 4.87 Lymphocytes # (Manual) 2.04 Prolymphocyte # Reactive Lymphs # Total Abs Lymphocytes 2.04 Monocytes # (Manual) 0.51 Eosinophils # (Manual) 0.73 H Basophils # (Manual) 0.15 Metamyelocytes # (Man) Myelocytes # (Manual) Promyelocytes # (Man) Blast Cells # (Man) Plasma Cell # (Manual) Other Cells # Nucleated RBCs # (Man) Hypersegmented Neuts Hyposegmented Neuts Hypogranular Neuts Large Granular Lymphs # Lrg Granular Lymphs Hairy Cells Smudge Cells Toxic Granulation Toxic Vacuolation Dohle Bodies Bailee Rods Platelet Estimate Hypogranular Platelets Clumped Platelets Giant Platelets Platelet Satelliting RBC Morphology Polychromasia 1+ Hypochromasia Poikilocytosis Basophilic Stippling Anisocytosis Present Microcytosis Macrocytosis Spherocytes Pappenheimer Bodies Sickle Cells Target Cells Tear Drop Cells Ovalocytes Stomatocytes [place] Bodies Echinocytes Acanthocytes (Spur) Rouleaux RBC Agglutinates Schistocytes RBC Morph Comment Sezary Cell Sodium Potassium Chloride Carbon Dioxide Anion Gap BUN Creatinine Est Cr Clr Drug Dosing Est GFR ( Amer) Est GFR (Non-Af Amer) BUN/Creatinine Ratio Glucose POC Glucose 92 Calcium Phosphorus Magnesium
[2022-01-22] MEDS: HEPARIN SOD (PORCINE) 1000 UNIT/ML IV SCH ×2 (15:00→20:56)
--- NOTE | 2022-01-22 16:23 | Hospitalist Progress Note ---
Date of Service January 22, 2022 Assessment & Plan (1) Acute on chronic respiratory failure with hypoxia and hypercapnia: (2) Atrial fibrillation, chronic: (3) Acute on chronic renal failure: (4) Congestive heart failure: Plan: (1) History of noncompliance with medical treatment: (2) Congestive heart failure: (3) Leg edema: Plan: per Dr. El's notes with addendum: Patient is a 76 yr female with H/O DM II, hypothyroidism, hyperlipidemia, COPD, on chronic oxygen baseline 3 liters oxygen, sleep apnea not on CPAP - intolerant as per the patient, paroxysmal atrial fibrillation, cor pulmonale, chronic essential hypertension, morbid obesity, irritable bowel syndrome, stage III chronic kidney disease, mixed stress and urge incontinence, chronic pain syndrome, TIA. Patient presented 01/01 to our ED with complaint of progressive fluid retention along with worsening shortness of breath, denies fever and aspiration, reports compliance with home medication. 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 Acute Metabolic Encephalopathy -POA Likely multifactorial: Hypercarbia,Uremia, Hyponatremia, Medications H/O COPD and sleep apnea and intolerance to CPAP and/or BiPAP Chronic Oxygen dependency: 3L at rest and 4L with activity at baseline Patient prefers no ventilation Continue dialysis as per Nephrology Titrate Oxygen to keep Sats 88-92% given H/O COPD Decrease Baclofen to 5mg daily Decrease Oxycodone to 10mg BID--Hold for excess sedation Monitor any withdrawal BiPAP as needed Family understands that patient is critical and has poor prognosis Appreciate Palliative Care Input Mental status seemed to be back to baseline / awake, alert not tolerating CPAP/Bipap Acute on chronic heart failure with preserved ejection fraction STACY with CKD Possible cardiorenal syndrome Patient reports increasing bilateral lower extremity swelling prior to arrival --11/29 ECHO:Ejection fraction greater than 70%, hyperdynamic left ventricle with normal left ventricle size and normal left ventricular wall thickness. ? Med compliance Appreciate Cardiology, Nephrology Input Pt did not diuresis with IV Lasix . Continue with strict I's and O's, daily weights, fluid restriction Midodrine added for hypotension Volume status to be addressed with dialysis Permanent Catheter for HD placed on 01/10/22 Dialysis as per Nephrology Had dialysis today Received IV albumin for low BP 01/22 crea 5.2 --> 1.8 to to 2.01--> 2.9 continue HD on Sat continue to monitor closely H/O A. fib Afib RVR: Dofetilide discontinued Coreg held due to low BP Not on anticoagulation, Xarelto was stopped in past because of history of hematochezia HR elevated again Metoprolol XL 50mg BID ordered Amiodarone 200mg TID increased Midodrine 5mg TID monitor closely Constipation Miralax and Senokot S Lactulose PRN ordered Possible HCAP UTI / CAUTI : Pt w/ bob at home (per patient after her last discharge), urine Cx +ve for ESBL UTI CXR: Concern for developing fibrosis versus infectious process CTAP and CT chest: Suggestive of post inflammatory fibrosis, urinary bladder wall thickening with perivesicular stranding/correlate with urinalysis. Patient started on ertapenem 01/02-->Meropenem 01/04. 01/04 MRSA negative. Completed antibiotic course Sleep apnea CPAP intolerant DM II ISS for now Monitor BGs Hypothyroidism Continue Levothyroxine Dysphagia Aspiration Precautions Speech Eval completed Pureed diet COPD Sleep apnea Does not use any CPAP COPD remains stable Patient has declined Incruse Ellipta in the past, continue with home inhalers -- Xopenex inhaler ordered Chronic pain Patient reports multiple joint pains Continue with home meds Lidoderm patch, K pad Anemia of chronic disease: Hg stable around 8 Continue with iron supplementation Received Epo, Venofer DVT Px: SCDs Re: hx of GIB Code Status DNI/DNR: as per my discussion with patient and family Disposition: PT/OT prior to discharge Prognosis is guarded plan of care discussed with patient in detail and at length all questions answered she is understanding, agreeable, comfortable with the plan of care Admission and Anticipated Discharge Date Admission Date: January 02, 2022 Subjective ff up for A fib, acute renal failure, etc seen resting in bed, comfortable HD in progress states she feels ok overall, just tired no nausea/vomiting no chest pain, dyspnea, palpitations, dizziness no other symptoms Review of Systems Review of Systems: all noted and negative except for above Physical Exam Physical Exam: General- oriented x 3, not in distress, speaks in sentences with no effort or accessory muscle use Eyes- anicteric Neck- no JVD Lungs- clear breath sounds bilaterally Heart- tachycardic rate, irregularly irregular rhythm; no murmurs Abdomen- normal bowel sounds, nondistended, soft, nontender Extremities- trace pretibial edema, no calf tenderness Neuro- alert, oriented x 3; no gross focal neurologic deficits Skin- warm & dry Results & Data Results & Data ([facility]) Vital Signs (Past 12 Hours) Vital Signs Temp Pulse Pulse Resp BP BP Pulse Ox 01/22/22 15:32 124 H 21 168/110 H 93 01/22/22 12:31 36.7 C 101 H 95/57 L 01/22/22 12:00 110 H 95/65 L 01/22/22 11:30 112 H 109/58 L 01/22/22 11:00 110 H 86/59 L 01/22/22 10:30 115 H 82/47 L 01/22/22 10:00 121 H 89/55 L 01/22/22 09:30 122 H 74/53 L 01/22/22 09:00 103 H 82/57 L 01/22/22 08:44 36.8 C 101 H 01/22/22 07:08 36.9 C 103 H 18 93/60 L 97 all noted and reviewed including below (1) Congestive heart failure Heart failure chronicity: acute Heart failure type: combined systolic and diastolic Qualified Code(s): I50.41 - Acute combined systolic (congestive) and diastolic (congestive) heart failure
[2022-01-22] MEDS: METOPROLOL SUCC 50MG EXT REL TAB PO SCH (21:02)
[2022-01-23] MEDS: LEVOTHYROXINE SODIUM 125 MCG TABLET PO SCH (05:30)
[2022-01-23 07:02] LABS: Basophils # (auto) 0.02 K/uL (0-0.2); Basophils % (auto) 0.3 %; Eosinophils # (auto) 0.55 K/uL (0-0.5); Eosinophils % (auto) 7.6 %; Hematocrit (blood only) 29.8 % (37-47); Hemoglobin 8.7 g/dL (12.0-16.0); Immature Granulocytes # (auto) 0.03 K/uL (0.00-0.02); Immature Granulocytes % (auto) 0.4 %; Lymphocytes # (auto) 1.81 K/uL (1.2-3.4); Mean Corpuscular Hemoglobin 26.7 pg (25-34); Mean Corpuscular Hgb Conc 29.2 g/dL (32-36); Mean Corpuscular Volume 91.4 fL (80-100); Mean Platelet Volume 9.3 fL (7.4-10.4); Monocytes # (auto) 0.83 K/uL (0.11-0.59); Monocytes % (auto) 11.4 %; Neutrophils # (auto) 4.01 K/uL (1.4-6.5); Neutrophils % (auto) 55.3 %; Platelet Count 121 K/uL (130-400); RDW Standard Deviation 84.8 fL (36.4-46.3); Red Blood Count 3.26 M/uL (4.2-5.4); White Blood Count 7.25 K/uL (4.8-10.8)
[2022-01-23 07:23] LABS: BUN Creatinine Ratio 3.1 (10-20); Calcium 8.5 mg/dl (8.5-10.1); Creatinine Clr Calc Pharmacy 22.3 ml/min; Est GFR (African American) 17.7 ml/min; Est GFR (Non-African American) 15.3 ml/min; Magnesium 1.8 mg/dl (1.7-2.4); Potassium 4.2 mmol/L (3.5-5.1)
[2022-01-23 07:54] LABS: Anisocytosis Present; Polychromasia 1+
[2022-01-23] MEDS: INSULIN ASPART PER UNIT SC SCH ×4 (08:17→20:24)
[2022-01-23] MEDS: AMIODARONE 200 MG TAB PO SCH ×3 (08:23→17:17)
[2022-01-23] MEDS: ASCORBIC ACID 500 MG TAB PO SCH (08:23)
[2022-01-23] MEDS: POLYETHYLENE (MIRALAX) 17 GM PACK PO SCH (08:24)
[2022-01-23] MEDS: METOPROLOL SUCC 50MG EXT REL TAB PO SCH ×2 (08:24→20:26)
[2022-01-23] MEDS: oxyCODONE HCL 10 MG TABCR (OxyCONTIN) PO SCH ×2 (08:24→20:26)
[2022-01-23] MEDS: LIDOCAINE 5% 1 PATCH TD SCH (08:24)
[2022-01-23] MEDS: BACLOFEN 10 MG TAB PO SCH (08:24)
[2022-01-23] MEDS: FERROUS SULFATE 325 MG TAB PO SCH (08:24)
[2022-01-23] MEDS: MULTIVITAMIN TAB PO SCH (08:24)
[2022-01-23] MEDS: CYANOCOBALAMIN (B-12) 500 MCG TABLET PO SCH (08:24)
[2022-01-23] MEDS: MIDODRINE HCL 2.5 MG TAB PO SCH ×3 (08:24→17:17)
[2022-01-23] MEDS: FOLIC ACID 1 MG TAB PO SCH (08:25)
--- NOTE | 2022-01-23 09:30 | Cardiology Progress Note ---
Date of Service January 23, 2022 Assessment & Plan (1) Acute on chronic renal failure: (2) Long COVID: (3) Acute on chronic respiratory failure with hypoxia and hypercapnia: (4) Chronic hypotension: (5) Atrial fibrillation, chronic: Plan: Persistent atrial fibrillation. Continue attempts to control rate with beta- daphne therapy and amiodarone for now. Digoxin is not being utilized due to current use of amiodarone and renal dysfunction. Hypotension precludes the use of calcium channel daphne therapy. ? Future pacemaker implantation followed by AVJ ablation. 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 Hypotension. Increase midodrine dosing to 7.5 mg three times per day. Congestive heart failure. Volume managed via hemodialysis Acute on chronic renal failure. As per Nephrology. Admission and Anticipated Discharge Date Admission Date: January 02, 2022 Supervising Physician Co-Signing Physician Notes Patient was seen and personally examined. Assessment as above overall patient appears clinically somewhat improved today more alert. Heart rates running persistently elevated but intervention limited by inability to give medications due to blood pressure. We will continue current therapies as ordered as patient minimally symptomatic Subjective Patient seen and examined. Chart, medications, and telemetry reviewed. Complaints: Nausea without emesis earlier this morning. Stable chronic back pain. No chest pain. No orthopnea or PND. No dizziness or near syncope Telemetry: Persistent atrial fibrillation since 01/18/2022 at 15:15. Heart rates over the past 24 hours have been in the 100 to 130 bpm range. Patient has not received metoprolol succinate (held due to hypotension) Review of Systems Review of Systems: Complete Review of Systems is as stated above, negative, or noncontributory. Physical Exam Physical Exam: General: A&Ox3. HENT: Atraumatic. Eyes: PER. Conjunctiva pink, sclera clear. Neck: Very thick. Unable to appreciate for JVD. Chest: Right subclavian catheter. Heart: Distant heart sounds. Irregularly irregular around 120 bpm. No murmur appreciated. Lungs: Clear to auscultation anteriorly. Abdomen: +BS. Soft. Nontender. No masses or organomegaly. Extremities: Mild pretibial edema. No cyanosis. No clubbing. Limited neurological examination is without focal deficits. Results & Data ([facility]) Vital Signs (Past 12 Hours) Vital Signs Temp Pulse Pulse Pulse Resp BP BP 01/23/22 08:06 36.5 C 117 H 19 92/76 L 01/23/22 03:30 36.6 C 113 H 18 78/52 L 72/57 L 01/23/22 02:51 111 H 01/22/22 23:00 36.8 C 117 H 22 80/58 L Pulse Ox 01/23/22 08:06 94 01/23/22 03:30 96 01/23/22 02:51 01/22/22 23:00 100 Laboratory Results Laboratory Results - last 24 hr 01/22/22 01/22/22 01/22/22 12:37 15:51 20:14 WBC RBC Hgb Hct MCV MCH MCHC RDW Std Deviation RDW Coeff of [place] Plt Count MPV Immature Gran % (Auto) Neut % (Auto) Lymph % (Auto) [place] % (Auto) Eos % (Auto) Baso % (Auto) Neut # (Auto) Lymph # (Auto) [place] # (Auto) Eos # (Auto) Baso # (Auto) Immature Gran # (Auto) Polychromasia Anisocytosis Sodium Potassium Chloride Carbon Dioxide Anion Gap BUN Creatinine Est Cr Clr Drug Dosing Est GFR ( Amer) Est GFR (Non-Af Amer) BUN/Creatinine Ratio Glucose POC Glucose 86 123 H 112 H Calcium Phosphorus Magnesium 01/22/22 01/23/22 01/23/22 23:24 06:11 06:11 WBC 7.25 RBC 3.26 L Hgb 8.7 L Hct 29.8 L MCV 91.4 MCH 26.7 MCHC 29.2 L RDW Std Deviation 84.8 H RDW Coeff of [place] 26.0 H Plt Count 121 L MPV 9.3 Immature Gran % (Auto) 0.4 Neut % (Auto) 55.3 Lymph % (Auto) 25.0 [place] % (Auto) 11.4 Eos % (Auto) 7.6 Baso % (Auto) 0.3 Neut # (Auto) 4.01 Lymph # (Auto) 1.81 Jones # (Auto) 0.83 H Eos # (Auto) 0.55 H Baso # (Auto) 0.02 Immature Gran # (Auto) 0.03 H Polychromasia 1+ Anisocytosis Present Sodium 135 L Potassium 4.2 Chloride 103 Carbon Dioxide 28 Anion Gap 4 BUN 9 Creatinine 2.89 H D Est Cr Clr Drug Dosing 22.3 Est GFR ( Amer) 17.7 Est GFR (Non-Af Amer) 15.3 BUN/Creatinine Ratio 3.1 L Glucose 116 H POC Glucose 96 Calcium 8.5 Phosphorus 3.0 Magnesium 1.8 01/23/22 07:29 WBC RBC Hgb Hct MCV MCH MCHC RDW Std Deviation RDW Coeff of [place] Plt Count MPV Immature Gran % (Auto) Neut % (Auto) Lymph % (Auto) [place] % (Auto) Eos % (Auto) Baso % (Auto) Neut # (Auto) Lymph # (Auto) [place] # (Auto) Eos # (Auto) Baso # (Auto) Immature Gran # (Auto) Polychromasia Anisocytosis Sodium Potassium Chloride Carbon Dioxide Anion Gap BUN Creatinine Est Cr Clr Drug Dosing Est GFR ( Amer) Est GFR (Non-Af Amer) BUN/Creatinine Ratio Glucose POC Glucose 104 H Calcium Phosphorus Magnesium
[2022-01-23] MEDS ORDERED: MIDODRINE HCL 2.5 MG TAB PO ONE (09:45)
--- NOTE | 2022-01-23 10:03 | Nephrology Progress Note ---
Date of Service January 23, 2022 Assessment & Plan Admission and Anticipated Discharge Date Admission Date: January 02, 2022 Subjective Assessment & Plan (1) Acute on chronic renal failure: Plan: oliguric dialysis dependent ischemic ATN after several days of AF/F, tachycardia, and hypotension and with pre-existing cardiorenal syndrome. Baseline creatinine is somewhat labile but runs generally to high ones. Her creatinine at d/c on 12/25 was 1.4; was 2 on admission. First day of dialysis January 10. Overall prognosis very poor; may need to revisit goals of care. She had dialysis 01/22/22. had 1.5 liter removed. -Next dialysis will be tomorrow. Daily basic metabolic panel -Continue low-dose Midodrine. Much less edema now. Subjective Seen for acute renal failure. She complains of shortness of breath. She also chronic pain. Blood pressure intermittently low but ?? accurate Review of Systems Review of Systems: All other systems were reviewed and negative except as noted in HPI Physical Exam Physical Exam: General exam: Appears comfortable, no acute distress.On oxygen nasal cannula HEENT: Pupils are equal and reactive to light Neck: No JVD, neck is supple trachea is midline Respiratory system: wheezing bilaterally. Gastrointestinal: Abdomen is soft, non distended, non tender, bowel sounds are present CVS: Regular rate and rhythm. No murmurs, rubs or gallops Musculoskeletal: No joint or muscle tenderness Extremities: Non tender, no edema, peripheral pulses are present Neuro: Oriented, no tremors, no focal neurological deficits Skin: No rashes Results & Data ([facility]) Vital Signs (Past 12 Hours) Vital Signs Temp Pulse Pulse Pulse Resp BP BP 01/23/22 08:06 36.5 C 117 H 19 92/76 L 01/23/22 03:30 36.6 C 113 H 18 78/52 L 72/57 L 01/23/22 02:51 111 H 01/22/22 23:00 36.8 C 117 H 22 80/58 L Pulse Ox 01/23/22 08:06 94 01/23/22 03:30 96 01/23/22 02:51 01/22/22 23:00 100
[2022-01-23] MEDS ORDERED: MIDODRINE HCL 2.5 MG TAB PO SCH (12:00)
[2022-01-23] MEDS: ACETAMINOPHEN 325 MG TAB PO PRN (14:48)
[2022-01-23] MEDS: diphenhydrAMINE Capsule 25 MG CAP PO PRN (14:48)
--- NOTE | 2022-01-23 17:49 | Hospitalist Progress Note ---
Date of Service January 23, 2022 Assessment & Plan (1) Acute on chronic respiratory failure with hypoxia and hypercapnia: (2) Atrial fibrillation, chronic: (3) Acute on chronic renal failure: (4) Congestive heart failure: Plan: (1) History of noncompliance with medical treatment: (2) Congestive heart failure: (3) Leg edema: Plan: per Dr. El's notes with addendum: Patient is a 76 yr female with H/O DM II, hypothyroidism, hyperlipidemia, COPD, on chronic oxygen baseline 3 liters oxygen, sleep apnea not on CPAP - intolerant as per the patient, paroxysmal atrial fibrillation, cor pulmonale, chronic essential hypertension, morbid obesity, irritable bowel syndrome, stage III chronic kidney disease, mixed stress and urge incontinence, chronic pain syndrome, TIA. Patient presented 01/01 to our ED with complaint of progressive fluid retention along with worsening shortness of breath, denies fever and aspiration, reports compliance with home medication. Of note, patient was recently discharged from hospital after being treated for respiratory failure secondary to COPD exacerbation secondary to COVID-19 infection to rehab and then transitioned to home 1 week ago [employer]. Acute Metabolic Encephalopathy -POA Likely multifactorial: Hypercarbia,Uremia, Hyponatremia, Medications H/O COPD and sleep apnea and intolerance to CPAP and/or BiPAP Chronic Oxygen dependency: 3L at rest and 4L with activity at baseline Patient prefers no ventilation Continue dialysis as per Nephrology Titrate Oxygen to keep Sats 88-92% given H/O COPD Decrease Baclofen to 5mg daily Decrease Oxycodone to 10mg BID--Hold for excess sedation Monitor any withdrawal BiPAP as needed Family understands that patient is critical and has poor prognosis Appreciate Palliative Care Input Mental status seemed to be back to baseline 01/23 somewhat drowsy monitor closely if getting worse, obtain ABG and place on Bipap Acute on chronic heart failure with preserved ejection fraction STACY with CKD Possible cardiorenal syndrome Patient reports increasing bilateral lower extremity swelling prior to arrival --11/29 ECHO:Ejection fraction greater than 70%, hyperdynamic left ventricle with normal left ventricle size and normal left ventricular wall thickness. ? Med compliance Appreciate Cardiology, Nephrology Input Pt did not diuresis with IV Lasix . Continue with strict I's and O's, daily weights, fluid restriction Midodrine added for hypotension Volume status to be addressed with dialysis Permanent Catheter for HD placed on 3/23/22 Dialysis as per Nephrology Had dialysis today Received IV albumin for low BP 01/23 crea 5.2 --> 1.8 to to 2.01--> 2.8 continue HD m/w/f continue to monitor closely H/O A. fib Afib RVR: Dofetilide discontinued Coreg held due to low BP Not on anticoagulation, Xarelto was stopped in past because of history of hematochezia HR elevated again Metoprolol XL 50mg BID ordered Amiodarone 200mg TID increased Midodrine to 7.5mg TID monitor closely Constipation Miralax and Senokot S Lactulose PRN ordered Possible HCAP UTI / CAUTI : Pt w/ bob at home (per patient after her last discharge), urine Cx +ve for ESBL UTI CXR: Concern for developing fibrosis versus infectious process CTAP and CT chest: Suggestive of post inflammatory fibrosis, urinary bladder wall thickening with perivesicular stranding/correlate with urinalysis. Patient started on ertapenem 01/02-->Meropenem 01/04. 01/04 MRSA negative. Completed antibiotic course Sleep apnea CPAP intolerant DM II ISS for now Monitor BGs Hypothyroidism Continue Levothyroxine Dysphagia Aspiration Precautions Speech Eval completed Pureed diet COPD Sleep apnea Does not use any CPAP COPD remains stable Patient has declined Incruse Ellipta in the past, continue with home inhalers -- Xopenex inhaler ordered Chronic pain Patient reports multiple joint pains Continue with home meds Lidoderm patch, K pad Anemia of chronic disease: Hg stable around 8 Continue with iron supplementation Received Epo, Venofer DVT Px: SCDs Re: hx of GIB Code Status DNI/DNR: as per my discussion with patient and family Disposition: PT/OT prior to discharge Prognosis is guarded plan of care discussed with patient in detail and at length all questions answered she is understanding, agreeable, comfortable with the plan of care Admission and Anticipated Discharge Date Admission Date: January 02, 2022 Subjective ff up for acute renal failure, a fib, etc seen resting in bed, sitting up having dinner son at bedside states she feels tired today no chest pain, dyspnea, palpitations no other symptoms Review of Systems Review of Systems: all noted and negative except for above Physical Exam Physical Exam: General- oriented x 3, not in distress, speaks in sentences with no effort or accessory muscle use Eyes- anicteric Neck- no JVD Lungs- clear breath sounds bilaterally, no rales/wheezes Heart- mild tachy, irregularly irregular rhythm; no murmurs Abdomen- normal bowel sounds, nondistended, soft, nontender Extremities- no pretibial edema, no calf tenderness Neuro- alert, oriented x 3; no gross focal neurologic deficits Skin- warm & dry Results & Data Results & Data ([facility]) Vital Signs (Past 12 Hours) Vital Signs Temp Pulse Resp BP Pulse Ox 01/23/22 15:29 36.5 C 114 H 24 90/60 L 92 01/23/22 11:01 36.5 C 112 H 18 85/44 L 98 01/23/22 08:06 36.5 C 117 H 19 92/76 L 94 all noted and reviewed including below (1) Congestive heart failure Heart failure chronicity: acute Heart failure type: combined systolic and diastolic Qualified Code(s): I50.41 - Acute combined systolic (congestive) and diastolic (congestive) heart failure
[2022-01-23] MEDS: HEPARIN SOD (PORCINE) 1000 UNIT/ML IV SCH (20:28)
[2022-01-24] MEDS ORDERED: METOPROLOL TARTRATE 1 MG/ML VIAL IV STA (03:58)
[2022-01-24] MEDS: LEVOTHYROXINE SODIUM 125 MCG TABLET PO SCH (06:24)
[2022-01-24] MEDS ORDERED: HEPARIN SOD (PORCINE) 1000 UNIT/ML IV ONE (07:00)
[2022-01-24] MEDS ORDERED: SODIUM CHLORIDE 0.9% 1000ML 1,000 ML IV PRN (07:00)
[2022-01-24] MEDS ORDERED: EPOETIN ALFA 20,000 UNITS/ML VIAL IV ONE (07:00)
[2022-01-24 07:05] LABS: Hematocrit (blood only) 32.8 % (37-47); Hemoglobin 9.3 g/dL (12.0-16.0); Mean Corpuscular Hemoglobin 26.4 pg (25-34); Mean Corpuscular Hgb Conc 28.4 g/dL (32-36); Mean Corpuscular Volume 93.2 fL (80-100); Mean Platelet Volume 9.1 fL (7.4-10.4); Platelet Count 138 K/uL (130-400); RDW Coefficient of Variation 25.9 % (11.5-14.5); RDW Standard Deviation 88.1 fL (36.4-46.3); Red Blood Count 3.52 M/uL (4.2-5.4); White Blood Count 8.75 K/uL (4.8-10.8)
[2022-01-24 07:21] LABS: Anisocytosis Present; Basophilic Stippling 1+; Basophils # (auto) 0.02 K/uL (0-0.2); Basophils % (auto) 0.2 %; Eosinophils # (auto) 0.59 K/uL (0-0.5); Eosinophils % (auto) 6.7 %; Immature Granulocytes # (auto) 0.03 K/uL (0.00-0.02); Immature Granulocytes % (auto) 0.3 %; Lymphocytes # (auto) 1.68 K/uL (1.2-3.4); Lymphocytes % (auto) 19.2 %; Monocytes # (auto) 1.05 K/uL (0.11-0.59); Neutrophils # (auto) 5.38 K/uL (1.4-6.5); Neutrophils % (auto) 61.6 %; Tear Drop Cells 1+
[2022-01-24] MEDS: METOPROLOL SUCC 50MG EXT REL TAB PO SCH ×4 (07:23→19:42)
[2022-01-24 07:26] LABS: Calcium 8.8 mg/dl (8.5-10.1); Creatinine Clr Calc Pharmacy 17.9 ml/min; Est GFR (African American) 13.5 ml/min; Est GFR (Non-African American) 11.6 ml/min; Magnesium 1.8 mg/dl (1.7-2.4); Phosphorus 3.6 mg/dl (2.5-4.9); Potassium 4.4 mmol/L (3.5-5.1)
[2022-01-24] MEDS: oxyCODONE HCL 10 MG TABCR (OxyCONTIN) PO SCH ×2 (08:35→19:35)
[2022-01-24] MEDS: INSULIN ASPART PER UNIT SC SCH ×4 (08:35→21:06)
[2022-01-24] MEDS: MIDODRINE HCL 2.5 MG TAB PO SCH ×4 (08:36→23:57)
[2022-01-24] MEDS: LIDOCAINE 5% 1 PATCH TD SCH (08:36)
[2022-01-24] MEDS: POLYETHYLENE (MIRALAX) 17 GM PACK PO SCH (08:36)
[2022-01-24] MEDS: ASCORBIC ACID 500 MG TAB PO SCH (08:41)
[2022-01-24] MEDS: MULTIVITAMIN TAB PO SCH (08:41)
[2022-01-24] MEDS: BACLOFEN 10 MG TAB PO SCH (08:42)
[2022-01-24] MEDS: CYANOCOBALAMIN (B-12) 500 MCG TABLET PO SCH (08:42)
[2022-01-24] MEDS: FERROUS SULFATE 325 MG TAB PO SCH (08:42)
[2022-01-24] MEDS: AMIODARONE 200 MG TAB PO SCH ×3 (08:43→17:55)
[2022-01-24] MEDS: FOLIC ACID 1 MG TAB PO SCH (08:43)
--- NOTE | 2022-01-24 10:22 | Cardiology Progress Note ---
Date of Service January 24, 2022 Assessment & Plan (1) Acute on chronic renal failure: (2) Long COVID: (3) Acute on chronic respiratory failure with hypoxia and hypercapnia: (4) Chronic hypotension: (5) Atrial fibrillation, chronic: Plan: Persistent atrial fibrillation with a rapid ventricular response. Check blood pressures via upper arm; give metoprolol succinate. Continue amiodarone for now, discontinuing as heart rate improves with beta-daphne therapy. Reconsider digoxin (125 mcg MWF) when off of amiodarone. ? Future pacemaker implantation followed by AVJ ablation. Risks of group home anticoagulation are felt to be greater than the benefit. Hypotension. Midodrine dosing increased to 7.5 mg three times per day on 01/24/2022. Check blood pressures via upper arm as above, reconsidering further titration of midodrine tomorrow. Congestive heart failure. Volume managed via hemodialysis Renal failure. As per Nephrology. Admission and Anticipated Discharge Date Admission Date: January 02, 2022 Supervising Physician Co-Signing Physician Notes Patient seen and personally examined. Initially sleeping during dialysis. Blood pressure 105/60 despite dialysis. Heart rate still elevated. Agree with assessment as above metoprolol being held but in part due to inaccurate blood pressures. Suspect blood pressure would improve if heart rate could be controlled We will change metoprolol succinate order to 12.5 mg 4 times daily without hold parameters Subjective Patient seen and examined. Chart, medications, and telemetry reviewed. Increased lethargy, currently undergoing hemodialysis Patient has yet to receive metoprolol succinate Blood pressures are being monitored at the forearm due to discomfort with cuff inflation on the upper arm Telemetry: Persistent atrial fibrillation since 01/18/2022 at 15:15. Heart rates 100 to 130 bpm over the last 24 hours. No chest pain. No orthopnea or PND. No dizziness Review of Systems Review of Systems: Complete Review of Systems is as stated above, negative, or noncontributory. Physical Exam Physical Exam: General: A&Ox3. HENT: Atraumatic. Eyes: PER. Conjunctiva pink, sclera clear. Neck: Very thick. Unable to appreciate for JVD. Chest: Right subclavian catheter. Heart: Distant heart sounds. Irregularly irregular around 120 bpm. No murmur appreciated. Lungs: Clear to auscultation anteriorly. Abdomen: +BS. Soft. Nontender. No masses or organomegaly. Extremities: Mild pretibial edema. No cyanosis. No clubbing. Limited neurological examination is without focal deficits. Results & Data ([facility]) Vital Signs (Past 12 Hours) Vital Signs Temp Pulse Pulse Pulse Resp BP BP 01/24/22 09:40 103 H 114/78 01/24/22 09:24 36.8 C 112 H 01/24/22 07:19 36.4 C L 119 H 24 99/72 L 01/24/22 04:15 121 H 101/36 L 01/24/22 04:14 121 H 101/36 L 01/24/22 04:00 36.8 C 132 H 24 104/90 01/23/22 23:00 36.8 C 100 H 18 85/64 L Pulse Ox 01/24/22 09:40 01/24/22 09:24 01/24/22 07:19 94 01/24/22 04:15 01/24/22 04:14 01/24/22 04:00 100 01/23/22 23:00 100
--- NOTE | 2022-01-24 10:32 | Dialysis Progress Note ---
Date of Service January 24, 2022 Assessment & Plan Admission and Anticipated Discharge Date Admission Date: January 02, 2022 Subjective [facility], [id number] Nephrology Progress Note Signed Patient:MAGEN MARTINEZ Admit Date:01/02/22 MR#:[id number] Att Phy:Masood Rushing MD Acct ID:[id number] Vikki Phy:Flex Barr MD Date:1945 Fam Phy: Age:77 Location: Sex:F Room/Bed:[facility] cc: ~ *NOTICE TO RECEIVING DEMOCRAT/AGENCY This information is strictly Confidential and protected under [place] law. [place] law prohibits you from making any further disclosure of this information unless further disclosure is expressly permitted by the written consent of the person to whom it pertains or is authorized by law. A general authorization for the release of medical or other information is not sufficient for this purpose. Hospital accepts no responsibility if the information is made available to any other person, INCLUDING THE PATIENT. Subjective Assessment & Plan (1) Acute on chronic renal failure: Plan: oliguric dialysis dependent ischemic ATN after several days of AF/F, tachycardia, and hypotension and with pre-existing cardiorenal syndrome. Baseline creatinine is somewhat labile but runs generally to high ones. Her creatinine at d/c on 12/25 was 1.4; was 2 on admission. First day of dialysis January 10. Overall prognosis very poor; may need to revisit goals of care. Dialysis today and take 1.5 kilo off on 3 k bath. High dose epo an also use heparin. Daily basic metabolic panel -Continue low-dose Midodrine. Much less edema now. Subjective Seen during dialysis for acute renal failure. She complains of shortness of breath. She also chronic pain. Blood pressure intermittently low but ?? accurate Review of Systems Review of Systems: All other systems were reviewed and negative except as noted in HPI Physical Exam Physical Exam: General exam: Appears comfortable, no acute distress.On oxygen nasal cannula HEENT: Pupils are equal and reactive to light Neck: No JVD, neck is supple trachea is midline Respiratory system: wheezing bilaterally. Gastrointestinal: Abdomen is soft, non distended, non tender, bowel sounds are present CVS: Regular rate and rhythm. No murmurs, rubs or gallops Musculoskeletal: No joint or muscle tenderness Extremities: Non tender, no edema, peripheral pulses are present Neuro: Oriented, no tremors, no focal neurological deficits Skin: No rashes Results & Data ([facility]) Vital Signs (Past 12 Hours) Vital Signs Temp Pulse Pulse Pulse Resp BP BP 01/24/22 09:40 103 H 114/78 01/24/22 09:24 36.8 C 112 H 01/24/22 07:19 36.4 C L 119 H 24 99/72 L 01/24/22 04:15 121 H 101/36 L 01/24/22 04:14 121 H 101/36 L 01/24/22 04:00 36.8 C 132 H 24 104/90 01/23/22 23:00 36.8 C 100 H 18 85/64 L Pulse Ox 01/24/22 09:40 01/24/22 09:24 01/24/22 07:19 94 01/24/22 04:15 01/24/22 04:14 01/24/22 04:00 100 01/23/22 23:00 100
[2022-01-24] MEDS: HEPARIN SOD (PORCINE) 1000 UNIT/ML IV SCH ×2 (10:44→11:43)
--- NOTE | 2022-01-24 18:42 | Hospitalist Progress Note ---
Date of Service January 24, 2022 Assessment & Plan (1) History of noncompliance with medical treatment: (2) Congestive heart failure: (3) Leg edema: Plan: Patient is a 76 yr female with H/O DM II, hypothyroidism, hyperlipidemia, COPD, on chronic oxygen baseline 3 liters oxygen, sleep apnea not on CPAP - intolerant as per the patient, paroxysmal atrial fibrillation, cor pulmonale, chronic essential hypertension, morbid obesity, irritable bowel syndrome, stage III ch ronic kidney disease, mixed stress and urge incontinence, chronic pain syndrome, TIA. Patient presented 01/01 to our ED with complaint of progressive fluid retention along with worsening shortness of breath, denies fever and aspiration, reports compliance with home medication. Of note, patient was recently discharged from hospital after being treated for respiratory failure secondary to COPD exacerbation secondary to COVID-19 infection to rehab and then transitioned to home 1 week ago [employer]. Acute Metabolic Encephalopathy -POA Likely multifactorial: Hypercarbia,Uremia, Hyponatremia, Medications H/O COPD and sleep apnea and intolerance to CPAP and/or BiPAP Chronic Oxygen dependency: 3L at rest and 4L with activity at baseline Patient prefers no ventilation Continue dialysis as per Nephrology Titrate Oxygen to keep Sats 88-92% given H/O COPD Decrease Baclofen to 5mg daily Decrease Oxycodone to 10mg BID--Hold for excess sedation Monitor any withdrawal BiPAP as needed Family understands that patient is critical and has poor prognosis Appreciate Palliative Care Input Intermittently drowsy Currently on baseline supplemental oxygen 3 L Acute on chronic heart failure with preserved ejection fraction Possible cardiorenal syndrome Patient reports increasing bilateral lower extremity swelling prior to arrival --11/29 ECHO:Ejection fraction greater than 70%, hyperdynamic left ventricle with normal left ventricle size and normal left ventricular wall thickness. ? Med compliance Appreciate Cardiology, Nephrology Input Pt did not diuresis with IV Lasix . Continue with strict I's and O's, daily weights, fluid restriction Midodrine added for hypotension Volume status to be addressed with dialysis Permanent Catheter for HD placed on 01/10/22 Dialysis as per Nephrology Currently on dialysis Saturday Volume status slowly improving Concern for HCAP UTI / CAUTI : Pt w/ bob at home (per patient after her last discharge), urine Cx +ve for ESBL UTI CXR: Concern for developing fibrosis versus infectious process CTAP and CT chest: Suggestive of post inflammatory fibrosis, urinary bladder wall thickening with perivesicular stranding/correlate with urinalysis. Patient started on ertapenem 01/02-->Meropenem 01/04. 01/04 MRSA negative. Completed antibiotic course STACY with CKD Baseline creatinine around 1.3-1.5 Cr 5.26>3.8>3.6 Appreciate nephrology recommendation on Dialysis currently Sleep apnea CPAP intolerant DM II ISS for now Monitor BGs Hypothyroidism Continue Levothyroxine H/O A. fib Afib RVR: Dofetilide discontinued Not on anticoagulation, Xarelto was stopped in past because of history of hematochezia Appreciate cardiology input and recommendation Continue amiodarone, metoprolol Also on midodrine Needs follow-up with cardiology upon discharge Dysphagia Aspiration Precautions Speech Eval completed Pureed diet COPD Sleep apnea Does not use any CPAP COPD remains stable Patient has declined Incruse Ellipta in the past, continue with home inhalers BiPAP as needed Chronic pain Patient reports multiple joint pains Continue with home meds Anemia of chronic disease: Baseline hemoglobin 7-8 Monitor CBC Continue with iron supplementation Received Epo, Venofer DVT Px: SCDs Re: hx of GIB Code Status DNI/DNR: as per my discussion with patient and family Disposition: To be determined Admission and Anticipated Discharge Date Admission Date: January 02, 2022 Subjective Patient is seen and examined at bedside Had hemodialysis earlier today Discussed with nephrology today Volume status slowly improving Reports having lower back pain intermittently Tachycardic on monitor Review of Systems Review of Systems: All systems reviewed & are unremarkable except as noted in Subjective Physical Exam Physical Exam: Physical Exam: Vitals signs as noted above General Appearance:Morbidly Obese, no apparent distress, ill appearing Head: normocephalic, Atraumatic Eyes: normal inspection, EOMI Neck: supple, Trachea midline Respiratory/Chest: Decreased breath sounds, basal crackles, No accessory muscle use Cardiovascular: S1, S2, No murmur Abdomen/GI:Soft, Non tender, Bowel sounds present Extremities/Musculoskeletal:normal inspection, B/L LE edema improving Neurologic/Psych:grossly no focal neurological deficits, + Drowsy intermittently Skin: normal color, warm Results & Data Results & Data ([facility]) Vital Signs (Past 12 Hours) Vital Signs Temp Pulse Pulse Resp BP BP Pulse Ox 01/24/22 17:25 122 H 88/57 L 01/24/22 16:00 36.9 C 118 H 18 129/63 97 01/24/22 13:25 90/65 L 01/24/22 12:55 37.0 C 120 H 90/52 L 01/24/22 12:25 123 H 96/67 L 01/24/22 12:10 108 H 101/57 L 01/24/22 11:55 107 H 93/57 L 01/24/22 11:40 108 H 94/54 L 01/24/22 11:25 103 H 105/53 L 01/24/22 11:10 108 H 97/57 L 01/24/22 10:55 111 H 106/56 L 01/24/22 10:40 106 H 104/59 L 01/24/22 10:25 110 H 108/66 01/24/22 10:10 111 H 100/59 L 01/24/22 09:55 119 H 98/65 L 01/24/22 09:40 103 H 114/78 01/24/22 09:24 36.8 C 112 H 01/24/22 07:19 36.4 C L 119 H 24 99/72 L 94 Laboratory Results Short CBC 01/24/22 Range/Units 06:26 WBC 8.75 (4.8-10.8) K/uL Hgb 9.3 L (12.0-16.0) g/dL Hct 32.8 L (37-47) % Plt Count 138 (130-400) K/uL BMP 01/24/22 06:26 Sodium 134 L Potassium 4.4 Chloride 102 Carbon Dioxide 28 BUN 11 Creatinine 3.62 H D Glucose 89 Calcium 8.8 (1) Congestive heart failure Heart failure chronicity: acute Heart failure type: combined systolic and diastolic Qualified Code(s): I50.41 - Acute combined systolic (congestive) and diastolic (congestive) heart failure
[2022-01-24] MEDS ORDERED: ALBUMIN 25% 12.5 GM/50 ML VIAL IV ONE (23:30)
[2022-01-25] MEDS ORDERED: MAGNESIUM SULFATE / D5W 1 GM/100 ML BAG IV ONE (01:08)
[2022-01-25] MEDS: LEVOTHYROXINE SODIUM 125 MCG TABLET PO SCH (06:08)
[2022-01-25 07:46] LABS: BUN Creatinine Ratio 2.6 (10-20); Calcium 8.4 mg/dl (8.5-10.1); Creatinine Clr Calc Pharmacy 20.9 ml/min; Est GFR (African American) 16.1 ml/min; Est GFR (Non-African American) 13.9 ml/min
[2022-01-25] MEDS ORDERED: oxyCODONE HCL 10 MG TABCR (OxyCONTIN) PO PRN (07:46)
[2022-01-25] MEDS ORDERED: METOPROLOL TARTRATE 1 MG/ML VIAL IV PRN (07:48)
--- NOTE | 2022-01-25 09:15 | Cardiology Progress Note ---
Date of Service January 25, 2022 Assessment & Plan (1) Persistent atrial fibrillation: (2) Chronic hypotension: (3) Acute on chronic renal failure: (4) Long COVID: (5) Acute on chronic respiratory failure with hypoxia and hypercapnia: Plan: Persistent atrial fibrillation. Rates improved, receiving low dose metoprolol yesterday without difficulty. Continue metoprolol as prescribed. Wean amiodarone as heart rate improves with utilization of beta-daphne therapy. Reconsider digoxin (125 mcg MWF) when off of amiodarone. ? Future pacemaker implantation followed by AVJ ablation. Risks of penitentiary anticoagulation are felt to be greater than the benefit. Hypotension. Continue Midodrine. Congestive heart failure. Volume managed via hemodialysis Renal failure. As per Nephrology. Admission and Anticipated Discharge Date Admission Date: January 02, 2022 Supervising Physician Co-Signing Physician Notes Patient seen and examined. Notes difficulty swallowing pills and currently refusing. Ultimate goal be to continue low-dose metoprolol and amiodarone for rate control of atrial fibrillation Subjective Patient seen and examined. Chart, medications, and telemetry reviewed. Lethargic. No chest pain, orthopnea, PND, or palpitations. Blood pressures stable, receiving metoprolol x 3 on 01/24/2022 Telemetry: Atrial fibrillation in the 90's. Review of Systems Review of Systems: Complete Review of Systems is as stated above, negative, or noncontributory. Physical Exam Physical Exam: General: A&O to person and place. HENT: Normocephalic. Atraumatic. Eyes: PER. Conjunctiva pink, sclera clear. Neck: Very thick. Unable to appreciate for JVD. Chest: Right subclavian catheter. Heart: Distant heart sounds. Irregularly irregular around 100 bpm. No murmur appreciated. Lungs: Clear to auscultation anteriorly. Abdomen: +BS. Soft. Nontender. No masses or organomegaly. Extremities: Mild edema. No cyanosis. No clubbing. Limited neurological examination is without focal deficits. Results & Data ([facility]) Vital Signs (Past 12 Hours) Vital Signs Temp Pulse Pulse Resp BP BP Pulse Ox 01/25/22 07:02 36.9 C 93 H 20 73/37 L 100 01/25/22 03:29 37.0 C 100 H 22 87/62 L 99 01/25/22 02:52 108 H 97/47 L 01/24/22 23:49 109 H 93/48 L 01/24/22 22:49 118 H 72/50 L 01/24/22 22:36 36.9 C 100 H 18 64/40 L 99 01/24/22 21:18 135 H 85/46 L Laboratory Results Laboratory Results - last 24 hr 01/24/22 01/24/22 01/24/22 11:38 16:34 20:08 Sodium Potassium Chloride Carbon Dioxide Anion Gap BUN Creatinine Est Cr Clr Drug Dosing Est GFR ( Amer) Est GFR (Non-Af Amer) BUN/Creatinine Ratio Glucose POC Glucose 108 H 91 111 H Lactate Calcium 01/25/22 01/25/22 01/25/22 00:14 07:01 07:31 Sodium 137 Potassium 5.0 Chloride 103 Carbon Dioxide 26 Anion Gap 8 BUN 8 Creatinine 3.12 H D Est Cr Clr Drug Dosing 20.9 Est GFR ( Amer) 16.1 Est GFR (Non-Af Amer) 13.9 BUN/Creatinine Ratio 2.6 L Glucose 103 H POC Glucose 110 H Lactate 0.6 Calcium 8.4 L
[2022-01-25] MEDS: INSULIN ASPART PER UNIT SC SCH ×4 (09:24→22:05)
[2022-01-25] MEDS: LIDOCAINE 5% 1 PATCH TD SCH (09:32)
[2022-01-25] MEDS: AMIODARONE 200 MG TAB PO SCH ×3 (09:58→16:41)
[2022-01-25] MEDS: BACLOFEN 10 MG TAB PO SCH (09:58)
[2022-01-25] MEDS: MIDODRINE HCL 2.5 MG TAB PO SCH ×3 (09:58→16:40)
[2022-01-25] MEDS: CYANOCOBALAMIN (B-12) 500 MCG TABLET PO SCH (09:58)
[2022-01-25] MEDS: ASCORBIC ACID 500 MG TAB PO SCH (09:58)
[2022-01-25] MEDS: MULTIVITAMIN TAB PO SCH (09:59)
[2022-01-25] MEDS: METOPROLOL SUCC 50MG EXT REL TAB PO SCH (09:59)
[2022-01-25] MEDS: FERROUS SULFATE 325 MG TAB PO SCH (09:59)
[2022-01-25] MEDS: POLYETHYLENE (MIRALAX) 17 GM PACK PO SCH (09:59)
[2022-01-25] MEDS: FOLIC ACID 1 MG TAB PO SCH (09:59)
[2022-01-25] MEDS: METOPROLOL SUCC 25MG EXT REL TAB PO SCH ×3 (12:36→19:27)
--- NOTE | 2022-01-25 16:10 | Hospitalist Progress Note ---
Date of Service January 25, 2022 Assessment & Plan (1) History of noncompliance with medical treatment: (2) Congestive heart failure: (3) Leg edema: Plan: Patient is a 76 yr female with H/O DM II, hypothyroidism, hyperlipidemia, COPD, on chronic oxygen baseline 3 liters oxygen, sleep apnea not on CPAP - intolerant as per the patient, paroxysmal atrial fibrillation, cor pulmonale, chronic essential hypertension, morbid obesity, irritable bowel syndrome, stage III ch ronic kidney disease, mixed stress and urge incontinence, chronic pain syndrome, TIA. Patient presented 01/01 to our ED with complaint of progressive fluid retention along with worsening shortness of breath, denies fever and aspiration, reports compliance with home medication. 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 Acute Metabolic Encephalopathy -POA Likely multifactorial: Hypercarbia,Uremia, Hyponatremia, Medications H/O COPD and sleep apnea and intolerance to CPAP and/or BiPAP Chronic Oxygen dependency: 3L at rest and 4L with activity at baseline Patient prefers no ventilation Continue dialysis as per Nephrology Titrate Oxygen to keep Sats 88-92% given H/O COPD Decrease Baclofen to 5mg daily Minimize Oxycodone use as able. Hold for excess sedation Monitor any withdrawal BiPAP as needed Family understands that patient is critical and has poor prognosis Appreciate Palliative Care Input Intermittently drowsy Currently on baseline supplemental oxygen 4 L Mental Status better Acute on chronic heart failure with preserved ejection fraction Possible cardiorenal syndrome Patient reports increasing bilateral lower extremity swelling prior to arrival --11/29 ECHO:Ejection fraction greater than 70%, hyperdynamic left ventricle with normal left ventricle size and normal left ventricular wall thickness. ? Med compliance Appreciate Cardiology, Nephrology Input Pt did not diuresis with IV Lasix . Continue with strict I's and O's, daily weights, fluid restriction Midodrine added for hypotension Volume status to be addressed with dialysis Permanent Catheter for HD placed on 01/10/22 Dialysis as per Nephrology Currently on dialysis Saturday Volume status slowly improving Plan for hemodialysis tomorrow Concern for HCAP UTI / CAUTI : Pt w/ bob at home (per patient after her last discharge), urine Cx +ve for ESBL UTI CXR: Concern for developing fibrosis versus infectious process CTAP and CT chest: Suggestive of post inflammatory fibrosis, urinary bladder wall thickening with perivesicular stranding/correlate with urinalysis. Patient started on ertapenem 01/02-->Meropenem 01/04. 01/04 MRSA negative. Completed antibiotic course STACY with CKD Baseline creatinine around 1.3-1.5 Cr 5.26>3.8>3.6>3.1 Appreciate nephrology recommendation on Dialysis currently Sleep apnea CPAP intolerant DM II ISS for now Monitor BGs Hypothyroidism Continue Levothyroxine H/O A. fib Afib RVR: Dofetilide discontinued Not on anticoagulation, Xarelto was stopped in past because of history of hematochezia Appreciate cardiology input and recommendation Continue amiodarone, metoprolol Also on midodrine Needs follow-up with cardiology upon discharge Dysphagia Aspiration Precautions Speech Eval completed Pureed diet COPD Sleep apnea Does not use any CPAP COPD remains stable Patient has declined Incruse Ellipta in the past, continue with home inhalers BiPAP as needed Chronic pain Patient reports multiple joint pains Continue with home meds Anemia of chronic disease: Baseline hemoglobin 7-8 Monitor CBC Continue with iron supplementation Received Epo, Venofer DVT Px: SCDs Re: hx of GIB Code Status DNI/DNR: as per my discussion with patient and family Disposition: To be determined Admission and Anticipated Discharge Date Admission Date: January 02, 2022 Subjective Patient is seen and examined at bedside States feeling tired, has generalized pain Drowsy this morning but later more awake Denies any chest pain, shortness of breath, dizziness Review of Systems Review of Systems: All systems reviewed & are unremarkable except as noted in Subjective Physical Exam Physical Exam: Physical Exam: Vitals signs as noted above General Appearance:Morbidly Obese, no apparent distress, ill appearing Head: normocephalic, Atraumatic Eyes: normal inspection, EOMI Neck: supple, Trachea midline Respiratory/Chest: Decreased breath sounds, basal crackles, No accessory muscle use Cardiovascular: S1, S2, No murmur Abdomen/GI:Soft, Non tender, Bowel sounds present Extremities/Musculoskeletal:normal inspection, B/L LE edema improving Neurologic/Psych:grossly no focal neurological deficits, + Drowsy intermittently Skin: normal color, warm Results & Data Results & Data ([facility]) Vital Signs (Past 12 Hours) Vital Signs Temp Pulse Pulse Resp BP BP Pulse Ox 01/25/22 15:44 110 H 01/25/22 15:29 36.8 C 91 H 18 104/51 L 94 01/25/22 12:30 159/32 H 01/25/22 11:45 36.8 C 84 18 116/50 L 100 01/25/22 10:08 106 H 01/25/22 07:02 36.9 C 93 H 20 73/37 L 100 Laboratory Results [facility] 01/25/22 07:01 Sodium 137 Potassium 5.0 Chloride 103 Carbon Dioxide 26 BUN 8 Creatinine 3.12 H D Glucose 103 H Calcium 8.4 L (1) Congestive heart failure Heart failure chronicity: acute Heart failure type: combined systolic and diastolic Qualified Code(s): I50.41 - Acute combined systolic (congestive) and diastolic (congestive) heart failure
[2022-01-26] MEDS: oxyCODONE HCL IR 5 MG TAB (IMMEDIATE RELEASE) PO PRN (01:18)
[2022-01-26] MEDS: LEVOTHYROXINE SODIUM 125 MCG TABLET PO SCH (06:16)
[2022-01-26 07:02] LABS: Hemoglobin 8.8 g/dL (12.0-16.0); Mean Corpuscular Hemoglobin 26.6 pg (25-34); Mean Corpuscular Hgb Conc 28.4 g/dL (32-36); Mean Corpuscular Volume 93.7 fL (80-100); Mean Platelet Volume 9.3 fL (7.4-10.4); Platelet Count 146 K/uL (130-400); RDW Coefficient of Variation 25.1 % (11.5-14.5); RDW Standard Deviation 85.8 fL (36.4-46.3); Red Blood Count 3.31 M/uL (4.2-5.4); White Blood Count 6.96 K/uL (4.8-10.8)
[2022-01-26 07:25] LABS: BUN Creatinine Ratio 2.7 (10-20); Calcium 8.4 mg/dl (8.5-10.1); Creatinine Clr Calc Pharmacy 17.7 ml/min; Est GFR (African American) 13.1 ml/min; Est GFR (Non-African American) 11.3 ml/min; Potassium 4.1 mmol/L (3.5-5.1)
[2022-01-26] MEDS: AMIODARONE 200 MG TAB PO SCH ×3 (07:38→17:54)
[2022-01-26] MEDS: MIDODRINE HCL 2.5 MG TAB PO SCH ×3 (07:40→17:55)
[2022-01-26] MEDS: ASCORBIC ACID 500 MG TAB PO SCH (07:42)
[2022-01-26] MEDS: BACLOFEN 10 MG TAB PO SCH (07:44)
[2022-01-26] MEDS: CYANOCOBALAMIN (B-12) 500 MCG TABLET PO SCH (07:45)
[2022-01-26] MEDS: FOLIC ACID 1 MG TAB PO SCH (07:47)
[2022-01-26] MEDS: FERROUS SULFATE 325 MG TAB PO SCH (07:47)
[2022-01-26] MEDS: METOPROLOL SUCC 25MG EXT REL TAB PO SCH ×4 (07:49→20:45)
[2022-01-26] MEDS: MULTIVITAMIN TAB PO SCH (07:49)
[2022-01-26] MEDS: POLYETHYLENE (MIRALAX) 17 GM PACK PO SCH (07:52)
[2022-01-26] MEDS: LIDOCAINE 5% 1 PATCH TD SCH (08:02)
[2022-01-26] MEDS: INSULIN ASPART PER UNIT SC SCH ×4 (09:10→20:44)
--- NOTE | 2022-01-26 10:13 | Cardiology Progress Note ---
Date of Service January 26, 2022 Assessment & Plan (1) Persistent atrial fibrillation: (2) Chronic hypotension: (3) Acute on chronic renal failure: (4) Long COVID: (5) Acute on chronic respiratory failure with hypoxia and hypercapnia: Plan: Persistent atrial fibrillation. Rates acceptably controlled on metoprolol and amiodarone. 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 Continue as presently prescribed. Hypotension. Continue Midodrine as prescribed. Congestive heart failure. Volume managed via hemodialysis Renal failure. As per Nephrology. Admission and Anticipated Discharge Date Admission Date: January 02, 2022 Supervising Physician Co-Signing Physician Notes Patient seen and examined telemetry reviewed. Appears somewhat proved today heart rates much better controlled tolerating dialysis at time of examination. Continue current therapies including metoprolol succinate 12.5 g 4 times per day and amiodarone (being used for rate control) Subjective Patient seen and examined. Chart, medications, and telemetry reviewed. Nauseated early today, better now. + Mild palpitations. No chest pain, orthopnea, or PND Heart rates are acceptably controlled on metoprolol and amiodarone. Telemetry: Atrial fibrillation primarily in the 70's to 90's. Review of Systems Review of Systems: Complete Review of Systems is as stated above, negative, or noncontributory. Physical Exam Physical Exam: General: No acute distress HENT: Normocephalic. Atraumatic. Eyes: PER. Conjunctiva pink, sclera clear. Neck: Very thick. Unable to appreciate for JVD. Chest: Right subclavian catheter. Heart: Distant heart sounds. Irregularly irregular around 80 bpm. No murmur appreciated. Lungs: Clear to auscultation anteriorly. Abdomen: +BS. Soft. Nontender. No masses or organomegaly. Matos catheter with minimal output Extremities: Mild edema. No cyanosis. No clubbing. Limited neurological examination is without focal deficits. Results & Data ([facility]) Vital Signs (Past 12 Hours) Vital Signs Temp Pulse Pulse Pulse Pulse Resp BP 01/26/22 09:28 81 01/26/22 09:21 36.5 C 87 01/26/22 07:54 36.4 C L 83 18 90/55 L 01/26/22 06:16 78 82/54 L 01/26/22 02:45 36.6 C 82 22 78/49 L 01/26/22 02:00 87 78/49 L 01/25/22 23:12 36.4 C L 87 23 105/54 L Pulse Ox 01/26/22 09:28 01/26/22 09:21 01/26/22 07:54 95 01/26/22 06:16 99 01/26/22 02:45 97 01/26/22 02:00 94 01/25/22 23:12 91 Laboratory Results Laboratory Results - last 24 hr 01/25/22 01/25/22 01/25/22 11:15 16:33 19:57 WBC RBC Hgb Hct MCV MCH MCHC RDW Std Deviation RDW Coeff of Lawrence Plt Count MPV Sodium Potassium Chloride Carbon Dioxide Anion Gap BUN Creatinine Est Cr Clr Drug Dosing Est GFR ( Amer) Est GFR (Non-Af Amer) BUN/Creatinine Ratio Glucose POC Glucose 101 H 88 126 H Calcium 01/26/22 01/26/22 01/26/22 01:05 06:44 06:44 WBC 6.96 RBC 3.31 L Hgb 8.8 L Hct 31.0 L MCV 93.7 MCH 26.6 MCHC 28.4 L RDW Std Deviation 85.8 H RDW Coeff of Lawrence 25.1 H Plt Count 146 MPV 9.3 Sodium 134 L Potassium 4.1 Chloride 100 Carbon Dioxide 31 Anion Gap 3 BUN 10 Creatinine 3.71 H D Est Cr Clr Drug Dosing 17.7 Est GFR ( Amer) 13.1 Est GFR (Non-Af Amer) 11.3 BUN/Creatinine Ratio 2.7 L Glucose 107 H POC Glucose 90 Calcium 8.4 L 01/26/22 07:04 WBC RBC Hgb Hct MCV MCH MCHC RDW Std Deviation RDW Coeff of Lawrence Plt Count MPV Sodium Potassium Chloride Carbon Dioxide Anion Gap BUN Creatinine Est Cr Clr Drug Dosing Est GFR ( Amer) Est GFR (Non-Af Amer) BUN/Creatinine Ratio Glucose POC Glucose 110 H Calcium
--- NOTE | 2022-01-26 13:16 | Nephrology Progress Note ---
Date of Service January 26, 2022 Assessment & Plan Admission and Anticipated Discharge Date Admission Date: January 02, 2022 Subjective Subjective Assessment & Plan (1) Acute on chronic renal failure: Plan: oliguric dialysis dependent ischemic ATN after several days of AF/F, tachycardia, and hypotension and with pre-existing cardiorenal syndrome. Baseline creatinine is somewhat labile but runs generally to high ones. Her creatinine at d/c on 12/25 was 1.4; was 2 on admission. First day of dialysis January 10. Overall prognosis very poor; may need to revisit goals of care. Dialysis today and take 2 kilo off on 3 k bath. High dose epo an also use heparin. Daily basic metabolic panel -Continue low-dose Midodrine. Still not much urine. She has been bed bound now for 3 weeks. Chances of getting better is low at this time. Subjective Seen during dialysis for acute renal failure. She complains of shortness of breath. She also chronic pain. Blood pressure intermittently low but ?? accurate. NO urine Review of Systems Review of Systems: All other systems were reviewed and negative except as noted in HPI Physical Exam Physical Exam: General exam: Appears comfortable, no acute distress.On oxygen nasal cannula HEENT: Pupils are equal and reactive to light Neck: No JVD, neck is supple trachea is midline Respiratory system: wheezing bilaterally. Gastrointestinal: Abdomen is soft, non distended, non tender, bowel sounds are present CVS: Regular rate and rhythm. No murmurs, rubs or gallops Musculoskeletal: No joint or muscle tenderness Extremities: Non tender, no edema, peripheral pulses are present Neuro: Oriented, no tremors, no focal neurological deficits Skin: No rashes Results & Data ([facility]) Vital Signs (Past 12 Hours) Vital Signs Temp Pulse Pulse Pulse Resp BP BP 01/26/22 12:20 88 96/51 L 01/26/22 12:00 94 H 72/41 L 01/26/22 11:50 96 H 88/49 L 01/26/22 11:40 81 87/49 L 01/26/22 11:30 36.9 C 83 22 83/44 L 01/26/22 11:00 84 77/47 L 01/26/22 10:40 78 69/39 L 01/26/22 10:26 77 79/48 L 01/26/22 10:20 117 H 83/52 L 01/26/22 10:00 90 90/50 L 01/26/22 09:54 91 H 80/40 L 01/26/22 09:45 84 84/39 L 01/26/22 09:35 74 98/59 L 01/26/22 09:28 81 01/26/22 09:21 36.5 C 87 01/26/22 07:54 36.4 C L 83 18 01/26/22 06:16 78 01/26/22 02:45 36.6 C 82 22 01/26/22 02:00 87 BP Pulse Ox 01/26/22 12:20 01/26/22 12:00 01/26/22 11:50 01/26/22 11:40 01/26/22 11:30 98 01/26/22 11:00 01/26/22 10:40 01/26/22 10:26 01/26/22 10:20 01/26/22 10:00 01/26/22 09:54 01/26/22 09:45 01/26/22 09:35 01/26/22 09:28 01/26/22 09:21 01/26/22 07:54 90/55 L 95 01/26/22 06:16 82/54 L 99 01/26/22 02:45 78/49 L 97 01/26/22 02:00 78/49 L 94
--- NOTE | 2022-01-26 17:05 | Hospitalist Progress Note ---
Date of Service January 26, 2022 Assessment & Plan (1) History of noncompliance with medical treatment: (2) Congestive heart failure: (3) Leg edema: Plan: Patient is a 76 yr female with H/O DM II, hypothyroidism, hyperlipidemia, COPD, on chronic oxygen baseline 3 liters oxygen, sleep apnea not on CPAP - intolerant as per the patient, paroxysmal atrial fibrillation, cor pulmonale, chronic essential hypertension, morbid obesity, irritable bowel syndrome, stage III ch ronic kidney disease, mixed stress and urge incontinence, chronic pain syndrome, TIA. Patient presented 01/01 to our ED with complaint of progressive fluid retention along with worsening shortness of breath, denies fever and aspiration, reports compliance with home medication. 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 Acute Metabolic Encephalopathy -POA Likely multifactorial: Hypercarbia,Uremia, Hyponatremia, Medications H/O COPD and sleep apnea and intolerance to CPAP and/or BiPAP Chronic Oxygen dependency: 3L at rest and 4L with activity at baseline Patient prefers no ventilation Continue dialysis as per Nephrology Titrate Oxygen to keep Sats 88-92% given H/O COPD Decrease Baclofen to 5mg daily Minimize Oxycodone use as able. Hold for excess sedation Monitor any withdrawal BiPAP as needed Family understands that patient is critical and has poor prognosis Appreciate Palliative Care Input Intermittently drowsy Continue supplemental oxygen Mental Status about same as yesterday Acute on chronic heart failure with preserved ejection fraction Possible cardiorenal syndrome Patient reports increasing bilateral lower extremity swelling prior to arrival --11/29 ECHO:Ejection fraction greater than 70%, hyperdynamic left ventricle with normal left ventricle size and normal left ventricular wall thickness. ? Med compliance Appreciate Cardiology, Nephrology Input Pt did not diuresis with IV Lasix . Continue with strict I's and O's, daily weights, fluid restriction Midodrine added for hypotension Volume status to be addressed with dialysis Permanent Catheter for HD placed on 01/10/22 Dialysis as per Nephrology Currently on dialysis Saturday Volume status slowly improving Had hemodialysis today Concern for HCAP UTI / CAUTI : Pt w/ bob at home (per patient after her last discharge), urine Cx +ve for ESBL UTI CXR: Concern for developing fibrosis versus infectious process CTAP and CT chest: Suggestive of post inflammatory fibrosis, urinary bladder wall thickening with perivesicular stranding/correlate with urinalysis. Patient started on ertapenem 01/02-->Meropenem 01/04. 01/04 MRSA negative. Completed antibiotic course STACY with CKD Baseline creatinine around 1.3-1.5 Cr 5.26>3.8>3.6>3.1 Appreciate nephrology recommendation on Dialysis currently Sleep apnea CPAP intolerant DM II ISS for now Monitor BGs Hypothyroidism Continue Levothyroxine H/O A. fib Afib RVR: Dofetilide discontinued Not on anticoagulation, Xarelto was stopped in past because of history of hematochezia Appreciate cardiology input and recommendation Continue amiodarone, metoprolol Also on midodrine Needs follow-up with cardiology upon discharge Heart rate better controlled with current meds Dysphagia Aspiration Precautions Speech Eval completed Pureed diet COPD Sleep apnea Does not use any CPAP COPD remains stable Patient has declined Incruse Ellipta in the past, continue with home inhalers BiPAP as needed Chronic pain Patient reports multiple joint pains Continue with home meds Anemia of chronic disease: Baseline hemoglobin 7-8 Monitor CBC Continue with iron supplementation Received Epo, Venofer DVT Px: SCDs Re: hx of GIB Code Status DNI/DNR: as per my discussion with patient and family Disposition: To be determined Admission and Anticipated Discharge Date Admission Date: January 02, 2022 Subjective Patient is seen and examined at bedside Had HD today States having chronic right hip pain Reports intermittent palpitations Discussed with Cardiology today Denies any chest pain, shortness of breath, dizziness No other complaints Review of Systems Review of Systems: All systems reviewed & are unremarkable except as noted in Subjective Physical Exam Physical Exam: Physical Exam: Vitals signs as noted above General Appearance:Morbidly Obese, no apparent distress, ill appearing Head: normocephalic, Atraumatic Eyes: normal inspection, EOMI Neck: supple, Trachea midline Respiratory/Chest: Decreased breath sounds, basal crackles, No accessory muscle use Cardiovascular: S1, S2, No murmur Abdomen/GI:Soft, Non tender, Bowel sounds present Extremities/Musculoskeletal:normal inspection, B/L LE edema improving Neurologic/Psych:grossly no focal neurological deficits, + Drowsy intermittently Skin: normal color, warm Results & Data Results & Data ([facility]) Vital Signs (Past 12 Hours) Vital Signs Temp Pulse Pulse Pulse Pulse Resp BP 01/26/22 16:06 36.9 C 96 H 27 H 01/26/22 15:39 91 H 01/26/22 13:08 37.0 C 95 H 01/26/22 13:00 89 86/60 L 01/26/22 12:50 90 106/49 L 01/26/22 12:40 88 84/38 L 01/26/22 12:20 88 96/51 L 01/26/22 12:00 94 H 72/41 L 01/26/22 11:50 96 H 88/49 L 01/26/22 11:40 81 87/49 L 01/26/22 11:30 36.9 C 83 22 01/26/22 11:00 84 77/47 L 01/26/22 10:40 78 69/39 L 01/26/22 10:26 77 79/48 L 01/26/22 10:20 117 H 83/52 L 01/26/22 10:00 90 90/50 L 01/26/22 09:54 91 H 80/40 L 01/26/22 09:45 84 84/39 L 01/26/22 09:35 74 98/59 L 01/26/22 09:28 81 01/26/22 09:21 36.5 C 87 01/26/22 07:54 36.4 C L 83 18 01/26/22 06:16 78 BP BP Pulse Ox 01/26/22 16:06 97/54 L 99 01/26/22 15:39 01/26/22 13:08 90/48 L 01/26/22 13:00 01/26/22 12:50 01/26/22 12:40 01/26/22 12:20 01/26/22 12:00 01/26/22 11:50 01/26/22 11:40 01/26/22 11:30 83/44 L 98 01/26/22 11:00 01/26/22 10:40 01/26/22 10:26 01/26/22 10:20 01/26/22 10:00 01/26/22 09:54 01/26/22 09:45 01/26/22 09:35 01/26/22 09:28 01/26/22 09:21 01/26/22 07:54 90/55 L 95 01/26/22 06:16 82/54 L 99 Laboratory Results Short CBC 01/26/22 Range/Units 06:44 WBC 6.96 (4.8-10.8) K/uL Hgb 8.8 L (12.0-16.0) g/dL Hct 31.0 L (37-47) % Plt Count 146 (130-400) K/uL BMP 01/26/22 06:44 Sodium 134 L Potassium 4.1 Chloride 100 Carbon Dioxide 31 BUN 10 Creatinine 3.71 H D Glucose 107 H Calcium 8.4 L (1) Congestive heart failure Heart failure chronicity: acute Heart failure type: combined systolic and diastolic Qualified Code(s): I50.41 - Acute combined systolic (congestive) and diastolic (congestive) heart failure
[2022-01-26] MEDS: diphenhydrAMINE Capsule 25 MG CAP PO PRN (19:27)
[2022-01-26] MEDS: LEVALBUTEROL TARTRATE 15 GM HFA.AER.AD INH PRN (20:47)
[2022-01-27] MEDS: LEVOTHYROXINE SODIUM 125 MCG TABLET PO SCH (05:50)
[2022-01-27 07:00] LABS: Magnesium 1.9 mg/dl (1.7-2.4); Potassium 4.1 mmol/L (3.5-5.1)
[2022-01-27] MEDS: INSULIN ASPART PER UNIT SC SCH ×4 (07:53→21:19)
[2022-01-27] MEDS: MIDODRINE HCL 2.5 MG TAB PO SCH ×3 (08:27→16:26)
[2022-01-27] MEDS: AMIODARONE 200 MG TAB PO SCH ×3 (08:29→16:25)
[2022-01-27] MEDS: PANTOprazole 40 MG TAB PO PRN (08:29)
[2022-01-27] MEDS: ASCORBIC ACID 500 MG TAB PO SCH (08:30)
[2022-01-27] MEDS: BACLOFEN 10 MG TAB PO SCH (08:30)
[2022-01-27] MEDS: FOLIC ACID 1 MG TAB PO SCH (08:31)
[2022-01-27] MEDS: FERROUS SULFATE 325 MG TAB PO SCH (08:31)
[2022-01-27] MEDS: MULTIVITAMIN TAB PO SCH (08:31)
[2022-01-27] MEDS: LIDOCAINE 5% 1 PATCH TD SCH (08:32)
[2022-01-27] MEDS: CYANOCOBALAMIN (B-12) 500 MCG TABLET PO SCH (08:32)
[2022-01-27] MEDS: METOPROLOL SUCC 25MG EXT REL TAB PO SCH ×4 (08:33→20:51)
[2022-01-27] MEDS: POLYETHYLENE (MIRALAX) 17 GM PACK PO SCH (08:33)
--- NOTE | 2022-01-27 14:28 | Hospitalist Progress Note ---
Date of Service January 27, 2022 Assessment & Plan (1) History of noncompliance with medical treatment: (2) Congestive heart failure: (3) Leg edema: Plan: Patient is a 76 yr female with H/O DM II, hypothyroidism, hyperlipidemia, COPD, on chronic oxygen baseline 3 liters oxygen, sleep apnea not on CPAP - intolerant as per the patient, paroxysmal atrial fibrillation, cor pulmonale, chronic essential hypertension, morbid obesity, irritable bowel syndrome, stage III ch ronic kidney disease, mixed stress and urge incontinence, chronic pain syndrome, TIA. Patient presented 01/01 to our ED with complaint of progressive fluid retention along with worsening shortness of breath, denies fever and aspiration, reports compliance with home medication. 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 Acute Metabolic Encephalopathy -POA Likely multifactorial: Hypercarbia,Uremia, Hyponatremia, Medications H/O COPD and sleep apnea and intolerance to CPAP and/or BiPAP Chronic Oxygen dependency: 3L at rest and 4L with activity at baseline Patient prefers no ventilation Continue dialysis as per Nephrology Titrate Oxygen to keep Sats 88-92% given H/O COPD Decrease Baclofen to 5mg daily Minimize Oxycodone use as able. Hold for excess sedation Monitor any withdrawal BiPAP as needed Family understands that patient is critical and has poor prognosis Appreciate Palliative Care Input Continue supplemental oxygen Mental Status much improved Acute on chronic heart failure with preserved ejection fraction Possible cardiorenal syndrome Patient reports increasing bilateral lower extremity swelling prior to arrival --11/29 ECHO:Ejection fraction greater than 70%, hyperdynamic left ventricle with normal left ventricle size and normal left ventricular wall thickness. ? Med compliance Appreciate Cardiology, Nephrology Input Pt did not diuresis with IV Lasix . Continue with strict I's and O's, daily weights, fluid restriction Midodrine added for hypotension Volume status to be addressed with dialysis Permanent Catheter for HD placed on 01/10/22 Dialysis as per Nephrology Currently on dialysis Saturday Volume status slowly improving Next hemodialysis on Saturday Concern for HCAP UTI / CAUTI : Pt w/ bob at home (per patient after her last discharge), urine Cx +ve for ESBL UTI CXR: Concern for developing fibrosis versus infectious process CTAP and CT chest: Suggestive of post inflammatory fibrosis, urinary bladder wall thickening with perivesicular stranding/correlate with urinalysis. Patient started on ertapenem 01/02-->Meropenem 01/04. 01/04 MRSA negative. Completed antibiotic course STACY with CKD Baseline creatinine around 1.3-1.5 Cr 5.26>3.8>3.6>3.1 Appreciate nephrology recommendation on Dialysis currently Sleep apnea CPAP intolerant DM II ISS for now Monitor BGs Hypothyroidism Continue Levothyroxine H/O A. fib Afib RVR: Dofetilide discontinued Not on anticoagulation, Xarelto was stopped in past because of history of hematochezia Appreciate cardiology input and recommendation Continue amiodarone, metoprolol Also on midodrine Needs follow-up with cardiology upon discharge Continue current meds Dysphagia Aspiration Precautions Speech Eval completed Pureed diet COPD Sleep apnea Does not use any CPAP COPD remains stable Patient has declined Incruse Ellipta in the past, continue with home inhalers BiPAP as needed Chronic pain Patient reports multiple joint pains Continue with home meds Anemia of chronic disease: Baseline hemoglobin 7-8 Monitor CBC Continue with iron supplementation Received Epo, Venofer DVT Px: SCDs Re: hx of GIB Code Status DNI/DNR: as per my discussion with patient and family Disposition: To be determined Admission and Anticipated Discharge Date Admission Date: January 02, 2022 Subjective Patient is seen and examined at bedside More alert, awake today Feels better today No new complaints Denies any chest pain, shortness of breath, dizziness, nausea, abd pain Back Pain is better Review of Systems Review of Systems: All systems reviewed & are unremarkable except as noted in Subjective Physical Exam Physical Exam: Physical Exam: Vitals signs as noted above General Appearance:Morbidly Obese, no apparent distress, ill appearing Head: normocephalic, Atraumatic Eyes: normal inspection, EOMI Neck: supple, Trachea midline Respiratory/Chest: Decreased breath sounds, basal crackles, No accessory muscle use Cardiovascular: S1, S2, No murmur Abdomen/GI:Soft, Non tender, Bowel sounds present Extremities/Musculoskeletal:normal inspection, B/L LE edema improving Neurologic/Psych:grossly no focal neurological deficits, + Drowsy intermittently Skin: normal color, warm Results & Data Results & Data ([facility]) Vital Signs (Past 12 Hours) Vital Signs Temp Pulse Pulse Pulse Resp BP Pulse Ox 01/27/22 11:14 36.6 C 78 20 84/43 L 96 01/27/22 07:28 100 H 01/27/22 07:08 36.8 C 96 H 18 98/53 L 97 01/27/22 03:53 36.5 C 91 H 24 96/58 L 91 Laboratory Results [facility] 01/27/22 05:40 Potassium 4.1 (1) Congestive heart failure Heart failure chronicity: acute Heart failure type: combined systolic and diastolic Qualified Code(s): I50.41 - Acute combined systolic (congestive) and diastolic (congestive) heart failure
[2022-01-27] MEDS: oxyCODONE HCL IR 5 MG TAB (IMMEDIATE RELEASE) PO PRN (16:23)
[2022-01-28] MEDS: oxyCODONE HCL IR 5 MG TAB (IMMEDIATE RELEASE) PO PRN (00:20)
[2022-01-28] MEDS: LEVOTHYROXINE SODIUM 125 MCG TABLET PO SCH (05:44)
[2022-01-28] MEDS: INSULIN ASPART PER UNIT SC SCH ×4 (07:23→22:09)
[2022-01-28] MEDS: POLYETHYLENE (MIRALAX) 17 GM PACK PO SCH (07:24)
[2022-01-28] MEDS: METOPROLOL SUCC 25MG EXT REL TAB PO SCH ×4 (07:24→21:23)
[2022-01-28] MEDS: AMIODARONE 200 MG TAB PO SCH ×3 (07:40→16:26)
[2022-01-28] MEDS: FOLIC ACID 1 MG TAB PO SCH (07:41)
[2022-01-28] MEDS: ASCORBIC ACID 500 MG TAB PO SCH (07:42)
[2022-01-28] MEDS: PANTOprazole 40 MG TAB PO PRN (07:42)
[2022-01-28] MEDS: FERROUS SULFATE 325 MG TAB PO SCH (07:43)
[2022-01-28] MEDS: BACLOFEN 10 MG TAB PO SCH (07:43)
[2022-01-28] MEDS: CYANOCOBALAMIN (B-12) 500 MCG TABLET PO SCH (07:44)
[2022-01-28] MEDS: MIDODRINE HCL 2.5 MG TAB PO SCH ×3 (07:44→16:26)
[2022-01-28] MEDS: MULTIVITAMIN TAB PO SCH (07:44)
[2022-01-28] MEDS: LIDOCAINE 5% 1 PATCH TD SCH (07:45)
--- NOTE | 2022-01-28 11:13 | Nephrology Progress Note ---
Date of Service January 28, 2022 Assessment & Plan Admission and Anticipated Discharge Date Admission Date: January 02, 2022 Subjective Assessment & Plan (1) Acute on chronic renal failure: Plan: oliguric dialysis dependent ischemic ATN after several days of AF/F, tachycardia, and hypotension and with pre-existing cardiorenal syndrome. Baseline creatinine is somewhat labile but runs generally to high ones. Her creatinine at d/c on 12/25 was 1.4; was 2 on admission. First day of dialysis January 10. Overall prognosis very poor; may need to revisit goals of care. Dialysis today and take 2 kilo off on 3 k bath. High dose epo an also use heparin. Daily basic metabolic panel -Continue low-dose Midodrine. Still not much urine. She has been bed bound now for 3+ weeks. Chances of getting better is low at this time. Dialysis tomorrow--3.5 hrs 3 k bath. take 2-- 2.5 as tolerated Subjective She complains of shortness of breath. She also chronic pain. Blood pressure intermittently low but ?? accurate. NO urine Review of Systems Review of Systems: All other systems were reviewed and negative except as noted in HPI Physical Exam Physical Exam: General exam: Appears comfortable, no acute distress.On oxygen nasal cannula HEENT: Pupils are equal and reactive to light Neck: No JVD, neck is supple trachea is midline Respiratory system: wheezing bilaterally. Gastrointestinal: Abdomen is soft, non distended, non tender, bowel sounds are present CVS: Regular rate and rhythm. No murmurs, rubs or gallops Musculoskeletal: No joint or muscle tenderness Extremities: Non tender, 1+ edema in thighs, peripheral pulses are present Neuro: Oriented, no tremors, no focal neurological deficits Skin: No rashes Results & Data ([facility]) Vital Signs (Past 12 Hours) Vital Signs Temp Pulse Pulse Resp BP BP Pulse Ox 01/28/22 08:00 84 01/28/22 07:31 36.4 C L 87 19 98/55 L 92 01/28/22 04:04 91 H 19 111/78 90
--- NOTE | 2022-01-28 15:34 | Hospitalist Progress Note ---
Date of Service January 28, 2022 Assessment & Plan (1) History of noncompliance with medical treatment: (2) Congestive heart failure: (3) Leg edema: Plan: Patient is a 76 yr female with H/O DM II, hypothyroidism, hyperlipidemia, COPD, on chronic oxygen baseline 3 liters oxygen, sleep apnea not on CPAP - intolerant as per the patient, paroxysmal atrial fibrillation, cor pulmonale, chronic essential hypertension, morbid obesity, irritable bowel syndrome, stage III c hronic kidney disease, mixed stress and urge incontinence, chronic pain syndrome, TIA. Patient presented 01/01 to our ED with complaint of progressive fluid retention along with worsening shortness of breath, denies fever and aspiration, reports compliance with home medication. Of note, patient was recently discharged from hospital after being treated for respiratory failure secondary to COPD exacerbation secondary to COVID-19 infection to rehab and then transitioned to home 1 week ago [employer]. Acute Metabolic Encephalopathy -POA Likely multifactorial: Hypercarbia,Uremia, Hyponatremia, Medications H/O COPD and sleep apnea and intolerance to CPAP and/or BiPAP Chronic Oxygen dependency: 3L at rest and 4L with activity at baseline Patient prefers no ventilation Continue dialysis as per Nephrology Titrate Oxygen to keep Sats 88-92% given H/O COPD Decrease Baclofen to 5mg daily Minimize Narcotic use as able. Hold for excess sedation Monitor any withdrawal BiPAP as needed Family understands that patient is critical and has poor prognosis Appreciate Palliative Care Input Continue supplemental oxygen Mental Status improved Intermittently drowsy Acute on chronic heart failure with preserved ejection fraction Possible cardiorenal syndrome Patient reports increasing bilateral lower extremity swelling prior to arrival --11/29 ECHO:Ejection fraction greater than 70%, hyperdynamic left ventricle with normal left ventricle size and normal left ventricular wall thickness. ? Med compliance Appreciate Cardiology, Nephrology Input Pt did not diuresis with IV Lasix . Continue with strict I's and O's, daily weights, fluid restriction Midodrine added for hypotension Volume status to be addressed with dialysis Permanent Catheter for HD placed on 01/10/22 Dialysis as per Nephrology Currently on dialysis Saturday Volume status slowly improving Plan for hemodialysis tomorrow Concern for HCAP UTI / CAUTI : Pt w/ bob at home (per patient after her last discharge), urine Cx +ve for ESBL UTI CXR: Concern for developing fibrosis versus infectious process CTAP and CT chest: Suggestive of post inflammatory fibrosis, urinary bladder wall thickening with perivesicular stranding/correlate with urinalysis. Patient started on ertapenem 01/02-->Meropenem 01/04. 01/04 MRSA negative. Completed antibiotic course STACY with CKD Baseline creatinine around 1.3-1.5 Cr 5.26>3.8>3.6>3.1 Appreciate nephrology recommendation on Dialysis currently Sleep apnea CPAP intolerant DM II ISS for now Monitor BGs Hypothyroidism Continue Levothyroxine H/O A. fib Afib RVR: Dofetilide discontinued Not on anticoagulation, Xarelto was stopped in past because of history of hematochezia Appreciate cardiology input and recommendation Continue amiodarone, metoprolol Also on midodrine Needs follow-up with cardiology upon discharge Continue current meds Dysphagia Aspiration Precautions Speech Eval completed Pureed diet COPD Sleep apnea Does not use any CPAP COPD remains stable Patient has declined Incruse Ellipta in the past, continue with home inhalers BiPAP as needed Chronic pain Patient reports multiple joint pains Continue with home meds Anemia of chronic disease: Baseline hemoglobin 7-8 Monitor CBC Continue with iron supplementation Received Epo, Venofer DVT Px: SCDs Re: hx of GIB Code Status DNI/DNR: as per my discussion with patient and family Disposition: To be determined Admission and Anticipated Discharge Date Admission Date: January 02, 2022 Subjective Patient is seen and examined at bedside BP low today No new complaints Chronic Back Pain Denies any chest pain, shortness of breath, dizziness, nausea, abd pain Plan for HD tomorrow Review of Systems Review of Systems: All systems reviewed & are unremarkable except as noted in Subjective Physical Exam Physical Exam: Physical Exam: Vitals signs as noted above General Appearance:Morbidly Obese, no apparent distress, ill appearing Head: normocephalic, Atraumatic Eyes: normal inspection, EOMI Neck: supple, Trachea midline Respiratory/Chest: Decreased breath sounds, basal crackles, No accessory muscle use Cardiovascular: S1, S2, No murmur Abdomen/GI:Soft, Non tender, Bowel sounds present Extremities/Musculoskeletal:normal inspection, B/L LE edema improving Neurologic/Psych:grossly no focal neurological deficits, + Drowsy intermittently Skin: normal color, warm Results & Data Results & Data ([facility]) Vital Signs (Past 12 Hours) Vital Signs Temp Pulse Pulse Resp BP BP Pulse Ox 01/28/22 11:23 36.4 C L 82 19 80/43 L 100 01/28/22 08:00 84 01/28/22 07:31 36.4 C L 87 19 98/55 L 92 01/28/22 04:04 91 H 19 111/78 90 (1) Congestive heart failure Heart failure chronicity: acute Heart failure type: combined systolic and diastolic Qualified Code(s): I50.41 - Acute combined systolic (congestive) and diastolic (congestive) heart failure
[2022-01-28] MEDS: ACETAMINOPHEN 325 MG TAB PO PRN (21:23)
[2022-01-29] MEDS: LEVOTHYROXINE SODIUM 125 MCG TABLET PO SCH (06:09)
[2022-01-29] MEDS ORDERED: HEPARIN SOD (PORCINE) 1000 UNIT/ML IV SCH (07:00)
[2022-01-29] MEDS ORDERED: SODIUM CHLORIDE 0.9% 1000ML 1,000 ML IV PRN ×2 (07:00→07:59)
[2022-01-29] MEDS ORDERED: EPOETIN ALFA 20,000 UNITS/ML VIAL IV SCH (07:00)
[2022-01-29 07:13] LABS: Hemoglobin 8.8 g/dL (12.0-16.0); Mean Corpuscular Hemoglobin 26.9 pg (25-34); Mean Corpuscular Hgb Conc 28.4 g/dL (32-36); Mean Corpuscular Volume 94.8 fL (80-100); Mean Platelet Volume 8.5 fL (7.4-10.4); Platelet Count 158 K/uL (130-400); RDW Coefficient of Variation 24.6 % (11.5-14.5); RDW Standard Deviation 86.8 fL (36.4-46.3); Red Blood Count 3.27 M/uL (4.2-5.4); White Blood Count 7.47 K/uL (4.8-10.8)
[2022-01-29 07:25] LABS: Anisocytosis Present; Basophils # (auto) 0.01 K/uL (0-0.2); Basophils % (auto) 0.1 %; Eosinophils # (auto) 0.49 K/uL (0-0.5); Eosinophils % (auto) 6.6 %; Immature Granulocytes # (auto) 0.01 K/uL (0.00-0.02); Immature Granulocytes % (auto) 0.1 %; Lymphocytes # (auto) 1.66 K/uL (1.2-3.4); Lymphocytes % (auto) 22.2 %; Monocytes # (auto) 0.82 K/uL (0.11-0.59); Neutrophils # (auto) 4.48 K/uL (1.4-6.5)
[2022-01-29 07:26] LABS: Albumin Level 2.8 gm/dl (3.4-5.0); BUN Creatinine Ratio 3.8 (10-20); Calcium 8.7 mg/dl (8.5-10.1); Creatinine Clr Calc Pharmacy 16.3 ml/min; Est GFR (African American) 12.2 ml/min; Est GFR (Non-African American) 10.5 ml/min; Phosphorus 3.8 mg/dl (2.5-4.9); Potassium 4.2 mmol/L (3.5-5.1)
[2022-01-29] MEDS: CYANOCOBALAMIN (B-12) 500 MCG TABLET PO SCH (07:35)
[2022-01-29] MEDS: AMIODARONE 200 MG TAB PO SCH ×3 (07:35→16:37)
[2022-01-29] MEDS: FERROUS SULFATE 325 MG TAB PO SCH (07:35)
[2022-01-29] MEDS: MULTIVITAMIN TAB PO SCH (07:35)
[2022-01-29] MEDS: FOLIC ACID 1 MG TAB PO SCH (07:35)
[2022-01-29] MEDS: ACETAMINOPHEN 325 MG TAB PO PRN ×2 (07:35→16:37)
[2022-01-29] MEDS: ASCORBIC ACID 500 MG TAB PO SCH (07:36)
[2022-01-29] MEDS: MIDODRINE HCL 2.5 MG TAB PO SCH ×3 (07:36→16:36)
[2022-01-29] MEDS: LIDOCAINE 5% 1 PATCH TD SCH (07:36)
[2022-01-29] MEDS: INSULIN ASPART PER UNIT SC SCH ×4 (07:38→20:45)
[2022-01-29] MEDS ORDERED: ALBUMIN 25% 12.5 GM/50 ML VIAL IV ONE ×2 (07:59→10:00)
[2022-01-29] MEDS ORDERED: HEPARIN SOD (PORCINE) 1000 UNIT/ML IV ONE (07:59)
[2022-01-29] MEDS: METOPROLOL SUCC 25MG EXT REL TAB PO SCH ×4 (07:59→20:20)
[2022-01-29] MEDS: POLYETHYLENE (MIRALAX) 17 GM PACK PO SCH (08:00)
[2022-01-29] MEDS: BACLOFEN 10 MG TAB PO SCH (08:02)
[2022-01-29] MEDS ORDERED: EPOETIN ALFA 20,000 UNITS/ML VIAL IV ONE (11:00)
[2022-01-29] MEDS: HEPARIN SOD (PORCINE) 1000 UNIT/ML IV SCH ×2 (11:31→11:32)
[2022-01-29] MEDS: diphenhydrAMINE Capsule 25 MG CAP PO PRN (13:21)
--- NOTE | 2022-01-29 14:48 | Hospitalist Progress Note ---
Date of Service January 29, 2022 Assessment & Plan (1) History of noncompliance with medical treatment: (2) Congestive heart failure: (3) Leg edema: Plan: Patient is a 76 yr female with H/O DM II, hypothyroidism, hyperlipidemia, COPD, on chronic oxygen baseline 3 liters oxygen, sleep apnea not on CPAP - intolerant as per the patient, paroxysmal atrial fibrillation, cor pulmonale, chronic essential hypertension, morbid obesity, irritable bowel syndrome, stage III c hronic kidney disease, mixed stress and urge incontinence, chronic pain syndrome, TIA. Patient presented 01/01 to our ED with complaint of progressive fluid retention along with worsening shortness of breath, denies fever and aspiration, reports compliance with home medication. 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 Acute Metabolic Encephalopathy -POA Likely multifactorial: Hypercarbia,Uremia, Hyponatremia, Medications H/O COPD and sleep apnea and intolerance to CPAP and/or BiPAP Chronic Oxygen dependency: 3L at rest and 4L with activity at baseline Continue dialysis as per Nephrology Titrate Oxygen to keep Sats 88-92% given H/O COPD Decrease Baclofen to 5mg daily Minimize Narcotic use as able. Hold for excess sedation Monitor any withdrawal BiPAP as needed Family understands that patient is critical and has poor prognosis Appreciate Palliative Care Input Continue supplemental oxygen Mental Status improved Acute on chronic heart failure with preserved ejection fraction Possible cardiorenal syndrome Patient reports increasing bilateral lower extremity swelling prior to arrival --11/29 ECHO:Ejection fraction greater than 70%, hyperdynamic left ventricle with normal left ventricle size and normal left ventricular wall thickness. ? Med compliance Appreciate Cardiology, Nephrology Input Pt did not diuresis with IV Lasix . Continue with strict I's and O's, daily weights, fluid restriction Midodrine added for hypotension Volume status to be addressed with dialysis Permanent Catheter for HD placed on 01/10/22 Dialysis as per Nephrology Currently on dialysis Saturday Volume status slowly improving Had hemodialysis today Concern for HCAP UTI / CAUTI : Pt w/ bob at home (per patient after her last discharge), urine Cx +ve for ESBL UTI CXR: Concern for developing fibrosis versus infectious process CTAP and CT chest: Suggestive of post inflammatory fibrosis, urinary bladder wall thickening with perivesicular stranding/correlate with urinalysis. Patient started on ertapenem 01/02-->Meropenem 01/04. 01/04 MRSA negative. Completed antibiotic course STACY with CKD Baseline creatinine around 1.3-1.5 Cr 5.26>3.8>3.6>3.9 Appreciate nephrology recommendation on Dialysis currently Sleep apnea CPAP intolerant DM II ISS for now Monitor BGs Hypothyroidism Continue Levothyroxine H/O A. fib Afib RVR: Dofetilide discontinued Not on anticoagulation, Xarelto was stopped in past because of history of hematochezia Appreciate cardiology input and recommendation Continue amiodarone, metoprolol Also on midodrine Needs follow-up with cardiology upon discharge Dysphagia Aspiration Precautions Speech Eval completed Pureed diet COPD Sleep apnea Does not use any CPAP COPD remains stable Patient has declined Incruse Ellipta in the past, continue with home inhalers BiPAP as needed Chronic pain Patient reports multiple joint pains Continue with home meds Anemia of chronic disease: Baseline hemoglobin 7-8 Monitor CBC Continue with iron supplementation Received Epo, Venofer DVT Px: SCDs Re: hx of GIB Code Status DNI/DNR: as per my discussion with patient and family Disposition: To be determined Admission and Anticipated Discharge Date Admission Date: January 02, 2022 Subjective Patient is seen and examined at bedside Had HD during my encounter States feeling better Chronic Back Pain Denies any chest pain, shortness of breath, dizziness, nausea, abd pain Review of Systems Review of Systems: All systems reviewed & are unremarkable except as noted in Subjective Physical Exam Physical Exam: Physical Exam: Vitals signs as noted above General Appearance:Morbidly Obese, no apparent distress, ill appearing Head: normocephalic, Atraumatic Eyes: normal inspection, EOMI Neck: supple, Trachea midline Respiratory/Chest: Decreased breath sounds, basal crackles, No accessory muscle use Cardiovascular: S1, S2, No murmur Abdomen/GI:Soft, Non tender, Bowel sounds present Extremities/Musculoskeletal:normal inspection, B/L LE edema improving Neurologic/Psych:grossly no focal neurological deficits, + Drowsy intermittently Skin: normal color, warm Results & Data Results & Data ([facility]) Vital Signs (Past 12 Hours) Vital Signs Temp Pulse Pulse Pulse Resp BP BP 01/29/22 12:40 65 104/69 01/29/22 12:20 70 105/32 L 01/29/22 12:00 68 90/50 L 01/29/22 11:40 61 92/63 L 01/29/22 11:20 68 111/66 01/29/22 11:00 63 85/49 L 01/29/22 10:40 71 93/43 L 01/29/22 10:20 81 92/47 L 01/29/22 10:08 57 L 76/51 L 01/29/22 10:00 65 88/50 L 01/29/22 09:40 80 80/46 L 01/29/22 09:20 80 88/60 L 01/29/22 09:18 69 98/36 L 01/29/22 09:07 36.5 C 88 01/29/22 03:24 36.5 C 76 19 96/56 L Pulse Ox 01/29/22 12:40 01/29/22 12:20 01/29/22 12:00 01/29/22 11:40 01/29/22 11:20 01/29/22 11:00 01/29/22 10:40 01/29/22 10:20 01/29/22 10:08 01/29/22 10:00 01/29/22 09:40 01/29/22 09:20 01/29/22 09:18 01/29/22 09:07 01/29/22 03:24 99 Laboratory Results Short CBC 01/29/22 Range/Units 06:46 WBC 7.47 (4.8-10.8) K/uL Hgb 8.8 L (12.0-16.0) g/dL Hct 31.0 L (37-47) % Plt Count 158 (130-400) K/uL BMP 01/29/22 06:46 Sodium 136 Potassium 4.2 Chloride 101 Carbon Dioxide 32 BUN 15 Creatinine 3.93 H Glucose 77 Calcium 8.7 Liver Function 01/29/22 Range/Units 06:46 Albumin 2.8 L (3.4-5.0) gm/dl (1) Congestive heart failure Heart failure chronicity: acute Heart failure type: combined systolic and diastolic Qualified Code(s): I50.41 - Acute combined systolic (congestive) and diastolic (congestive) heart failure
--- NOTE | 2022-01-29 20:15 | Nephrology Progress Note ---
Date of Service January 29, 2022 Assessment & Plan (1) Acute on chronic renal failure: Plan: oliogoanuric dialysis dependent ischemic ATN after several days of AF/F, tac hycardia, and hypotension and with pre-existing cardiorenal syndrome. Baseline creatinine is somewhat labile but runs generally to high ones. Her creatinine at d/c on 12/25 was 1.4; was 2 on admission 01/02. First day of dialysis January 10. Overall prognosis very poor; may need to revisit goals of care. -tolerated HD today with 1.7L UF -Next dialysis will be saturday Daily basic metabolic panel -Continue tid Midodrine (2) Electrolyte and fluid disorder: Plan: Profound volume overload\anasarca in the setting of lower blood pressures intermittently as low as the 80s to 90s systolic but HR now 60-70s. Chemistries acceptable for now. monitor for need need low sodium diet and fluid limit 1.2 L daily Strict intake and output to continue -still voluem OL, consider CXR repeat Admission and Anticipated Discharge Date Admission Date: January 02, 2022 Subjective seen on dialysis on rounds thsi am at 0915; tolerating tx well at that time; eager to discuss OP CPAP with me; breathing ok for anitra gonzalez back pain controlled Review of Systems Review of Systems: All systems reviewed & are unremarkable except as noted in Subjective Physical Exam Constitutional: well developed, + morbidly obese, + frail appearing and + edematous (though a bit less than 10 days back); no acute distress Eyes: EOM intact bilaterally ENMT: Ears: no external ear abnormality Nose: no external nose abnormality Mouth: + dry oral mucous membranes Neck: no nuchal rigidity Respiratory: normal respiratory effort Auscultation: + diminished lung soun ds Cardiovascular: Rate/Rhythm: regular rate and regular rhythm Extremities: + edema (1+ BLE pretibial again less taut and 2+ hips/ dependent) Gastrointestinal (Abdomen): Inspection/Auscultation: normal bowel sounds Percussion/Palpation: abdomen soft; abdomen nontender Musculoskeletal: Extremities: + abnormal strength (Generalized weakness) Skin: no rashes, warm and dry Psychiatric: Orientation: oriented to person and oriented to place Results & Data ([facility]) Vital Signs (Past 12 Hours) Vital Signs Temp Pulse Pulse Pulse Pulse Resp BP 01/29/22 19:49 01/29/22 19:48 01/29/22 19:43 36.5 C 84 24 01/29/22 15:47 36.6 C 100 H 19 01/29/22 12:57 36.5 C 67 01/29/22 12:40 65 104/69 01/29/22 12:20 70 105/32 L 01/29/22 12:00 68 90/50 L 01/29/22 11:40 61 92/63 L 01/29/22 11:20 68 111/66 01/29/22 11:00 63 85/49 L 01/29/22 10:40 71 93/43 L 01/29/22 10:20 81 92/47 L 01/29/22 10:08 57 L 76/51 L 01/29/22 10:00 65 88/50 L 01/29/22 09:40 80 80/46 L 01/29/22 09:20 80 88/60 L 01/29/22 09:18 69 98/36 L 01/29/22 09:07 36.5 C 88 BP BP Pulse Ox 01/29/22 19:49 93/48 L 01/29/22 19:48 73/54 L 01/29/22 19:43 94 01/29/22 15:47 83/63 L 99 01/29/22 12:57 97/51 L 01/29/22 12:40 01/29/22 12:20 01/29/22 12:00 01/29/22 11:40 01/29/22 11:20 01/29/22 11:00 01/29/22 10:40 01/29/22 10:20 01/29/22 10:08 01/29/22 10:00 01/29/22 09:40 01/29/22 09:20 01/29/22 09:18 01/29/22 09:07 Laboratory Results 01/29/22 06:46 01/29/22 06:46
[2022-01-29] MEDS: oxyCODONE HCL IR 5 MG TAB (IMMEDIATE RELEASE) PO PRN (20:20)
[2022-01-29] MEDS: LEVALBUTEROL TARTRATE 15 GM HFA.AER.AD INH PRN (21:28)
[2022-01-30] MEDS: LEVOTHYROXINE SODIUM 125 MCG TABLET PO SCH (07:09)
[2022-01-30] MEDS: INSULIN ASPART PER UNIT SC SCH ×4 (07:12→21:27)
[2022-01-30] MEDS: METOPROLOL SUCC 25MG EXT REL TAB PO SCH ×4 (07:12→21:08)
[2022-01-30] MEDS: POLYETHYLENE (MIRALAX) 17 GM PACK PO SCH (07:13)
[2022-01-30] MEDS: CYANOCOBALAMIN (B-12) 500 MCG TABLET PO SCH (08:01)
[2022-01-30] MEDS: AMIODARONE 200 MG TAB PO SCH ×3 (08:01→16:25)
[2022-01-30] MEDS: FERROUS SULFATE 325 MG TAB PO SCH (08:02)
[2022-01-30] MEDS: MIDODRINE HCL 2.5 MG TAB PO SCH ×3 (08:02→16:25)
[2022-01-30] MEDS: ASCORBIC ACID 500 MG TAB PO SCH (08:02)
[2022-01-30] MEDS: FOLIC ACID 1 MG TAB PO SCH (08:03)
[2022-01-30] MEDS: LIDOCAINE 5% 1 PATCH TD SCH (08:03)
[2022-01-30] MEDS: MULTIVITAMIN TAB PO SCH (08:03)
[2022-01-30] MEDS: BACLOFEN 10 MG TAB PO SCH (08:03)
[2022-01-30 08:06] LABS: Hematocrit (blood only) 29.2 % (37-47); Hemoglobin 8.3 g/dL (12.0-16.0); Mean Corpuscular Hemoglobin 26.9 pg (25-34); Mean Corpuscular Hgb Conc 28.4 g/dL (32-36); Mean Corpuscular Volume 94.5 fL (80-100); Mean Platelet Volume 9.2 fL (7.4-10.4); Platelet Count 128 K/uL (130-400); RDW Coefficient of Variation 24.5 % (11.5-14.5); Red Blood Count 3.09 M/uL (4.2-5.4); White Blood Count 6.02 K/uL (4.8-10.8)
[2022-01-30 08:08] LABS: Anisocytosis Present; Basophils # (auto) 0.03 K/uL (0-0.2); Basophils % (auto) 0.5 %; Eosinophils # (auto) 0.39 K/uL (0-0.5); Eosinophils % (auto) 6.5 %; Hypochromasia Present; Immature Granulocytes # (auto) 0.01 K/uL (0.00-0.02); Immature Granulocytes % (auto) 0.2 %; Lymphocytes # (auto) 0.98 K/uL (1.2-3.4); Lymphocytes % (auto) 16.3 %; Monocytes # (auto) 0.64 K/uL (0.11-0.59); Monocytes % (auto) 10.6 %; Neutrophils # (auto) 3.97 K/uL (1.4-6.5); Neutrophils % (auto) 65.9 %
[2022-01-30] MEDS: ACETAMINOPHEN 325 MG TAB PO PRN ×2 (09:45→18:19)
[2022-01-30 10:04] LABS: Albumin Level 2.8 gm/dl (3.4-5.0); BUN Creatinine Ratio 3.5 (10-20); Calcium 8.2 mg/dl (8.5-10.1); Creatinine Clr Calc Pharmacy 22.4 ml/min; Est GFR (African American) 17.9 ml/min; Est GFR (Non-African American) 15.5 ml/min; Phosphorus 2.2 mg/dl (2.5-4.9); Potassium 3.9 mmol/L (3.5-5.1)
[2022-01-30] MEDS: oxyCODONE HCL IR 5 MG TAB (IMMEDIATE RELEASE) PO PRN ×2 (11:22→21:09)
--- NOTE | 2022-01-30 13:07 | Nephrology Progress Note ---
Date of Service January 30, 2022 Assessment & Plan (1) Acute on chronic renal failure: Plan: oliogoanuric dialysis dependent ischemic ATN after several days of AF/F, tac hycardia, and hypotension and with pre-existing cardiorenal syndrome. Baseline creatinine is somewhat labile but runs generally to high ones. Her creatinine at d/c on 12/25 was 1.4; was 2 on admission 01/02. First day of dialysis January 10. Overall prognosis very poor; may need to revisit goals of care. She is aware for now may need LT dialysis and seems to accept this though we are still monitoring for recovery. Awaiting SNF placement in [facility]. >in [facility], would need HD at [facility] under care of Dr Diggs -tolerated HD 01/29 with 1.7L UF -Next dialysis will be saturday -UOP increased some today - hopeful sign Daily basic metabolic panel -Continue tid Midodrine (2) Electrolyte and fluid disorder: Plan: Profound volume overload\anasarca in the setting of lower blood pressures intermittently as low as the 80s to 90s systolic but HR now 60-70s. Chemistries acceptable for now. monitor for need need low sodium diet and fluid limit 1.2 L daily Strict intake and output to continue Admission and Anticipated Discharge Date Admission Date: January 02, 2022 Subjective out of bed to chair today; trying some po; still w/ back pain w/ sitting; tolerated HD yesterday Review of Systems Review of Systems: All systems reviewed & are unremarkable except as noted in Subjective Physical Exam Constitutional: well developed, + morbidly obese, + frail appearing and + edematous (improving); no acute distress Eyes: EOM intact bilaterally ENMT: Ears: no external ear abnormality Nose: no external nose abnormality Mouth: + dry oral mucous membranes Neck: no nuchal rigidity Respiratory: normal respiratory effort Auscultation: + diminished lung sounds Cardiovascular: Rate/Rhythm: regular rate and regular rhythm Extremities: + edema (1+ BLE pretibial again less taut and 1+ hips/ dependent) Gastrointestinal (Abdomen): Inspection/Auscultation: normal bowel sounds Percussion/Palpation: abdomen soft; abdomen nontender Musculoskeletal: Extremities: + abnormal strength (Generalized weakness) Skin: no rashes, warm and dry Psychiatric: Orientation: oriented to person and oriented to place Results & Data ([facility]) Vital Signs (Past 12 Hours) Vital Signs Temp Pulse Pulse Resp BP Pulse Ox 01/30/22 10:59 36.7 C 99 H 19 86/51 L 97 01/30/22 07:24 36.7 C 100 H 18 88/54 L 100 01/30/22 04:34 101 H 90/48 L 01/30/22 03:13 36.9 C 92 H 16 90/55 L 98 Laboratory Results 01/30/22 06:36 01/30/22 06:36
--- NOTE | 2022-01-30 14:52 | Hospitalist Progress Note ---
Date of Service January 30, 2022 Assessment & Plan (1) History of noncompliance with medical treatment: (2) Congestive heart failure: (3) Leg edema: Plan: Patient is a 76 yr female with H/O DM II, hypothyroidism, hyperlipidemia, COPD, on chronic oxygen baseline 3 liters oxygen, sleep apnea not on CPAP - intolerant as per the patient, paroxysmal atrial fibrillation, cor pulmonale, chronic essential hypertension, morbid obesity, irritable bowel syndrome, stage III c hronic kidney disease, mixed stress and urge incontinence, chronic pain syndrome, TIA. Patient presented 01/01 to our ED with complaint of progressive fluid retention along with worsening shortness of breath, denies fever and aspiration, reports compliance with home medication. 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 Acute Metabolic Encephalopathy -POA Likely multifactorial: Hypercarbia,Uremia, Hyponatremia, Medications H/O COPD and sleep apnea and intolerance to CPAP and/or BiPAP Chronic Oxygen dependency: 3L at rest and 4L with activity at baseline Continue dialysis as per Nephrology Titrate Oxygen to keep Sats 88-92% given H/O COPD Decrease Baclofen to 5mg daily Minimize Narcotic use as able. Hold for excess sedation Monitor any withdrawal BiPAP as needed Family understands that patient is critical and has poor prognosis Appreciate Palliative Care Input Continue supplemental oxygen Mental Status improved Check VBG tomorrow Acute on chronic heart failure with preserved ejection fraction Possible cardiorenal syndrome Patient reports increasing bilateral lower extremity swelling prior to arrival --11/29 ECHO:Ejection fraction greater than 70%, hyperdynamic left ventricle with normal left ventricle size and normal left ventricular wall thickness. ? Med compliance Appreciate Cardiology, Nephrology Input Pt did not diuresis with IV Lasix . Continue with strict I's and O's, daily weights, fluid restriction Midodrine added for hypotension Volume status to be addressed with dialysis Permanent Catheter for HD placed on 01/10/22 Dialysis as per Nephrology Currently on dialysis Saturday Volume status slowly improving Planned for hemodialysis tomorrow Concern for HCAP UTI / CAUTI : Pt w/ bob at home (per patient after her last discharge), urine Cx +ve for ESBL UTI CXR: Concern for developing fibrosis versus infectious process CTAP and CT chest: Suggestive of post inflammatory fibrosis, urinary bladder wall thickening with perivesicular stranding/correlate with urinalysis. Patient started on ertapenem 01/02-->Meropenem 01/04. 01/04 MRSA negative. Completed antibiotic course STACY with CKD Baseline creatinine around 1.3-1.5 Cr 5.26>3.8>3.6>3.9 Appreciate nephrology recommendation on Dialysis currently Sleep apnea CPAP intolerant DM II ISS for now Monitor BGs Hypothyroidism Continue Levothyroxine H/O A. fib Afib RVR: Dofetilide discontinued Not on anticoagulation, Xarelto was stopped in past because of history of hematochezia Appreciate cardiology input and recommendation Continue amiodarone, metoprolol Also on midodrine Needs follow-up with cardiology upon discharge Dysphagia Aspiration Precautions Speech Eval completed Pureed diet COPD Sleep apnea Does not use any CPAP COPD remains stable Patient has declined Incruse Ellipta in the past, continue with home inhalers BiPAP as needed Chronic pain Patient reports multiple joint pains Minimize Narcotic use Voltaren Gel PRN Anemia of chronic disease: Baseline hemoglobin 7-8 Monitor CBC Continue with iron supplementation Received Epo, Venofer DVT Px: SCDs Re: hx of GIB Code Status DNI/DNR: as per my discussion with patient and family Disposition: To be determined Admission and Anticipated Discharge Date Admission Date: January 02, 2022 Subjective Patient is seen and examined at bedside Lying in Recliner today Discussed with Nephrology today Reports back pain Plan for HD tomorrow Denies any chest pain, shortness of breath, dizziness, nausea, abd pain No Other complaints Review of Systems Review of Systems: All systems reviewed & are unremarkable except as noted in Subjective Physical Exam Physical Exam: Physical Exam: Vitals signs as noted above General Appearance:Morbidly Obese, no apparent distress, ill appearing Head: normocephalic, Atraumatic Eyes: normal inspection, EOMI Neck: supple, Trachea midline Respiratory/Chest: Decreased breath sounds, basal crackles, No accessory muscle use Cardiovascular: S1, S2, No murmur Abdomen/GI:Soft, Non tender, Bowel sounds present Extremities/Musculoskeletal:normal inspection, B/L LE edema improving Neurologic/Psych:grossly no focal neurological deficits Skin: normal color, warm Results & Data Results & Data ([facility]) Vital Signs (Past 12 Hours) Vital Signs Temp Pulse Pulse Resp BP Pulse Ox 01/30/22 10:59 36.7 C 99 H 19 86/51 L 97 01/30/22 07:24 36.7 C 100 H 18 88/54 L 100 01/30/22 04:34 101 H 90/48 L 01/30/22 03:13 36.9 C 92 H 16 90/55 L 98 Laboratory Results Short CBC 01/30/22 Range/Units 06:36 WBC 6.02 (4.8-10.8) K/uL Hgb 8.3 L (12.0-16.0) g/dL Hct 29.2 L (37-47) % Plt Count 128 L (130-400) K/uL BMP 01/30/22 06:36 Sodium 139 Potassium 3.9 Chloride 104 Carbon Dioxide 31 BUN 10 Creatinine 2.86 H D Glucose 64 L Calcium 8.2 L Liver Function 01/30/22 Range/Units 06:36 Albumin 2.8 L (3.4-5.0) gm/dl (1) Congestive heart failure Heart failure chronicity: acute Heart failure type: combined systolic and diastolic Qualified Code(s): I50.41 - Acute combined systolic (congestive) and diastolic (congestive) heart failure
[2022-01-30] MEDS: DICLOFENAC SOD 1% GEL 100 GM TUBE EXT PRN (21:09)
[2022-01-31] MEDS: LEVOTHYROXINE SODIUM 125 MCG TABLET PO SCH (06:33)
[2022-01-31 07:09] LABS: HCO3 VBG 31 mmol/L; PCO2 VBG 72 mmHg (38-50); PO2 VBG 27 mmHg; pH VBG 7.26 (7.36-7.41)
[2022-01-31 07:10] LABS: Basophils # (auto) 0.01 K/uL (0-0.2); Basophils % (auto) 0.1 %; Eosinophils % (auto) 6.8 %; Hematocrit (blood only) 30.3 % (37-47); Hemoglobin 8.9 g/dL (12.0-16.0); Immature Granulocytes # (auto) 0.01 K/uL (0.00-0.02); Immature Granulocytes % (auto) 0.1 %; Lymphocytes # (auto) 1.52 K/uL (1.2-3.4); Lymphocytes % (auto) 20.6 %; Mean Corpuscular Hemoglobin 27.6 pg (25-34); Mean Corpuscular Hgb Conc 29.4 g/dL (32-36); Mean Corpuscular Volume 93.8 fL (80-100); Monocytes # (auto) 0.73 K/uL (0.11-0.59); Monocytes % (auto) 9.9 %; Neutrophils # (auto) 4.61 K/uL (1.4-6.5); Neutrophils % (auto) 62.5 %; Platelet Count 148 K/uL (130-400); RDW Standard Deviation 82.2 fL (36.4-46.3); Red Blood Count 3.23 M/uL (4.2-5.4); White Blood Count 7.38 K/uL (4.8-10.8)
[2022-01-31 07:14] LABS: Oxygen Saturation VBG < 60.0 %
[2022-01-31 07:25] LABS: Albumin Level 2.7 gm/dl (3.4-5.0); BUN Creatinine Ratio 3.5 (10-20); Calcium 8.3 mg/dl (8.5-10.1); Creatinine Clr Calc Pharmacy 18.9 ml/min; Est GFR (African American) 14.3 ml/min; Est GFR (Non-African American) 12.4 ml/min; Phosphorus 2.4 mg/dl (2.5-4.9); Potassium 3.6 mmol/L (3.5-5.1)
[2022-01-31 07:43] LABS: Anisocytosis Present; Hypochromasia Present; Polychromasia 1+
[2022-01-31] MEDS ORDERED: ALBUMIN 25% 12.5 GM/50 ML VIAL IV ONE ×2 (08:16→10:00)
[2022-01-31] MEDS ORDERED: SODIUM CHLORIDE 0.9% 1000ML 1,000 ML IV PRN (08:16)
[2022-01-31] MEDS ORDERED: HEPARIN SOD (PORCINE) 1000 UNIT/ML IV ONE (08:16)
[2022-01-31] MEDS ORDERED: IRON SUCROSE 100 MG in SYRINGE 0 ML IV ONE (09:00)
[2022-01-31] MEDS: INSULIN ASPART PER UNIT SC SCH ×4 (09:00→22:13)
[2022-01-31] MEDS: AMIODARONE 200 MG TAB PO SCH ×3 (09:06→17:41)
[2022-01-31] MEDS: FERROUS SULFATE 325 MG TAB PO SCH (09:07)
[2022-01-31] MEDS: MIDODRINE HCL 2.5 MG TAB PO SCH ×3 (09:07→17:41)
[2022-01-31] MEDS: ASCORBIC ACID 500 MG TAB PO SCH (09:07)
[2022-01-31] MEDS: CYANOCOBALAMIN (B-12) 500 MCG TABLET PO SCH (09:07)
[2022-01-31] MEDS: BACLOFEN 10 MG TAB PO SCH (09:07)
[2022-01-31] MEDS: FOLIC ACID 1 MG TAB PO SCH (09:07)
[2022-01-31] MEDS: POLYETHYLENE (MIRALAX) 17 GM PACK PO SCH (09:08)
[2022-01-31] MEDS: METOPROLOL SUCC 25MG EXT REL TAB PO SCH ×4 (09:08→20:22)
[2022-01-31] MEDS: LIDOCAINE 5% 1 PATCH TD SCH (09:08)
[2022-01-31] MEDS: MULTIVITAMIN TAB PO SCH (09:08)
[2022-01-31] MEDS ORDERED: EPOETIN ALFA 20,000 UNITS/ML VIAL IV ONE (09:30)
[2022-01-31 09:44] LABS: Iron 26 mcg/dl (35-150); Total Iron Binding Cap Calc 164 mcg/dl (250-450); Transferrin (FE) Percent Satur 16 % (15-50); Unsaturated Iron Binding Cap 138 mcg/dl (155-355)
[2022-01-31] MEDS: HEPARIN SOD (PORCINE) 1000 UNIT/ML IV SCH ×2 (11:33→13:38)
[2022-01-31] MEDS: oxyCODONE HCL IR 5 MG TAB (IMMEDIATE RELEASE) PO PRN (11:58)
--- NOTE | 2022-01-31 12:56 | Hospitalist Progress Note ---
Date of Service January 31, 2022 Assessment & Plan (1) History of noncompliance with medical treatment: (2) Congestive heart failure: (3) Leg edema: Plan: 76 yr female with H/O DM II, hypothyroidism, hyperlipidemia, COPD, on chronic oxygen baseline 3 liters oxygen, sleep apnea not on CPAP - intolerant as per the patient, paroxysmal atrial fibrillation, cor pulmonale, chronic essential hypertension, morbid obesity, irritable bowel syndrome, stage III chronic kidney disease, mixed stress and urge incontinence, chronic pain syndrome, TIA. Patient presented 01/01 to our ED with complaint of progressive fluid retention along with worsening shortness of breath, denies fever and aspiration, reports compliance with home medication. 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 Acute Metabolic Encephalopathy -POA Likely multifactorial: Hypercarbia,Uremia, Hyponatremia, Medications H/O COPD and sleep apnea and intolerance to CPAP and/or BiPAP Chronic Oxygen dependency: 3L at rest and 4L with activity at baseline Continue dialysis as per Nephrology Titrate Oxygen to keep Sats 88-92% given H/O COPD Baclofen was decreased to 5mg daily Minimize Narcotic use as able. Hold for excess sedation Home oxycodone/oxycontin has been titrated down over time to oxycodone 2.5mg bid prn Continue lidocaine patch BiPAP as needed Patient reported she is not tolerant of BIPAP masks. She stated her PCP had recommended [facility] assessing her for nasal mask. Thaddeus will look into this to see if it can be done while inpatient Acute on chronic heart failure with preserved ejection fraction Possible cardiorenal syndrome Patient reports increasing bilateral lower extremity swelling prior to arrival --11/29 ECHO:Ejection fraction greater than 70%, hyperdynamic left ventricle with normal left ventricle size and normal left ventricular wall thickness. ? Med compliance Appreciate Cardiology, Nephrology Input Pt did not diurese with IV Lasix . Continue with strict I's and O's, daily weights, fluid restriction Midodrine was added for hypotension Volume status being addressed with dialysis Permanent Catheter for HD placed on 01/10/22 Currently on dialysis Saturday Will be HD moving forward on dc Concern for HCAP UTI / CAUTI : Pt w/ bob at home (per patient after her last discharge), urine Cx +ve for ESBL UTI CXR: Concern for developing fibrosis versus infectious process CTAP and CT chest: Suggestive of post inflammatory fibrosis, urinary bladder wall thickening with perivesicular stranding/correlate with urinalysis. Patient started on ertapenem 01/02-->Meropenem 01/04. 01/04 MRSA negative. Completed antibiotic course STACY with CKD Baseline creatinine around 1.3-1.5 Cr 5.26>3.8>3.6>3.9>3.44 Appreciate nephrology recommendation on Dialysis currently DM II ISS for now Monitor BGs Hypothyroidism Continue Levothyroxine H/O A. fib Afib RVR: Dofetilide discontinued Not on anticoagulation, Xarelto was stopped in past because of history of hematochezia Appreciate cardiology input and recommendation Continue amiodarone, metoprolol Also on midodrine Needs follow-up with cardiology upon discharge Dysphagia Aspiration Precautions Speech Eval completed Pureed diet COPD Sleep apnea Does not use any CPAP (as above) COPD remains stable Patient has declined Incruse Ellipta in the past, continue with home inhalers Chronic pain Patient reports multiple joint pains Minimize Narcotic use Voltaren Gel PRN Anemia of chronic disease: Baseline hemoglobin 7-8 Monitor CBC Continue with iron supplementation Received Epo, Venofer DVT Px: SCDs Re: hx of GIB Code Status DNI/DNR Disposition: CM working on placement Admission and Anticipated Discharge Date Admission Date: January 02, 2022 Subjective Patient seen and examined. Patient in bed undergoing HD. Reports low back pain which is chronic. Denies any headache, dizziness Denies chest pain, cough, shortness of breath Denies nausea, abdominal pain Physical Exam Constitutional: + well hydrated and + obese; no acute distress Eyes: PERRL, conjunctivae normal, anicteric sclerae ENMT: external ear and nose normal, oropharynx normal Respiratory: normal respiratory effort; no respiratory distress Decreased breath sounds lung bases Cardiovascular: Rate/Rhythm: regular rate and regular rhythm S1 S2 Gastrointestinal (Abdomen): normal bowel sounds, soft, nontender, no hepatosplenomegaly Musculoskeletal: + pedal edema (b/l) Neurologic: PERRL, EOMI, accommodation nl, no face palsy, no dysarthria Psychiatric: A+Ox3, euthymic affect Results & Data Results & Data ([facility]) Vital Signs (Past 12 Hours) Vital Signs Temp Pulse Pulse Pulse Resp BP BP 01/31/22 12:40 97 H 125/63 01/31/22 12:20 105 H 123/81 01/31/22 12:00 102 H 113/96 01/31/22 11:40 106 H 106/82 01/31/22 11:20 93 H 113/77 01/31/22 11:00 106 H 107/80 01/31/22 10:40 106 H 95/67 L 01/31/22 10:24 89 126/72 01/31/22 10:10 36.3 C L 84 01/31/22 07:36 36.7 C 86 22 106/59 L 01/31/22 05:01 36.4 C L 91 H 18 87/42 L Pulse Ox 01/31/22 12:40 01/31/22 12:20 01/31/22 12:00 01/31/22 11:40 01/31/22 11:20 01/31/22 11:00 01/31/22 10:40 01/31/22 10:24 01/31/22 10:10 01/31/22 07:36 97 01/31/22 05:01 96 Laboratory Results Abnormal lab results 01/30/22 01/31/22 01/31/22 Range/Units 19:31 06:36 06:36 RBC 3.23 L (4.2-5.4) M/uL Hgb 8.9 L (12.0-16.0) g/dL Hct 30.3 L (37-47) % MCHC 29.4 L (32-36) g/dL RDW Std Deviation 82.2 H (36.4-46.3) fL RDW Coeff of [place] 24.0 H (11.5-14.5) % [place] # (Auto) 0.73 H (0.11-0.59) K/uL VBG pH (7.36-7.41) VBG pCO2 (38-50) mmHg Creatinine 3.44 H D (0.6-1.2) mg/dl BUN/Creatinine Ratio 3.5 L (10-20) POC Glucose 132 H (70-99) mg/dl Calcium 8.3 L (8.5-10.1) mg/dl Phosphorus 2.4 L (2.5-4.9) mg/dl Iron (35-150) mcg/dl TIBC (250-450) mcg/dl Unsaturated IBC (155-355) mcg/dl Albumin 2.7 L (3.4-5.0) gm/dl 01/31/22 01/31/22 Range/Units 06:36 06:48 RBC (4.2-5.4) M/uL Hgb (12.0-16.0) g/dL Hct (37-47) % MCHC (32-36) g/dL RDW Std Deviation (36.4-46.3) fL RDW Coeff of [place] (11.5-14.5) % [place] # (Auto) (0.11-0.59) K/uL VBG pH 7.26 L (7.36-7.41) VBG pCO2 72 H (38-50) mmHg Creatinine (0.6-1.2) mg/dl BUN/Creatinine Ratio (10-20) POC Glucose (70-99) mg/dl Calcium (8.5-10.1) mg/dl Phosphorus (2.5-4.9) mg/dl Iron 26 L (35-150) mcg/dl TIBC 164 L (250-450) mcg/dl Unsaturated IBC 138 L (155-355) mcg/dl Albumin (3.4-5.0) gm/dl (1) Congestive heart failure Heart failure chronicity: acute Heart failure type: combined systolic and diastolic Qualified Code(s): I50.41 - Acute combined systolic (congestive) and diastolic (congestive) heart failure
--- NOTE | 2022-01-31 16:50 | Nephrology Progress Note ---
Date of Service January 31, 2022 Assessment & Plan (1) Acute on chronic renal failure: Plan: oliogoanuric dialysis dependent ischemic ATN after several days of AF/F, tac hycardia, and hypotension and with pre-existing cardiorenal syndrome. Baseline creatinine is somewhat labile but runs generally to high ones. Her creatinine at d/c on 12/25 was 1.4; was 2 on admission 01/02. First day of dialysis January 10. Overall prognosis very poor; may need to revisit goals of care. She is aware for now may need LT dialysis and seems to accept this though we are still monitoring for recovery. Awaiting SNF placement in [facility]. >in [facility], would need HD at [facility] under care of Dr Diggs -tolerated HD 01/29 with 1.7L UF; also tolerated today -Next dialysis will be saturday as tolerated -UOP increased from yesterday not sustained unfortunately; cont to monitor Daily basic metabolic panel -Continue tid Midodrine (2) Electrolyte and fluid disorder: Plan: Profound volume overload\anasarca in the setting of lower blood pressures intermittently as low as the 80s to 90s systolic but HR now 60-70s. Chemistries acceptable for now. monitor for need need low sodium diet and fluid limit 1.2 L daily Strict intake and output to continue Admission and Anticipated Discharge Date Admission Date: January 02, 2022 Subjective No interval clinical events. Tolerated dialysis today. Back pain okay today. Some recurrent A. fib but heart rate less than 110s Review of Systems Review of Systems: All systems reviewed & are unremarkable except as noted in Subjective Physical Exam Constitutional: well developed, + morbidly obese, + frail appearing and + edematous (improving further); no acute distress Eyes: EOM intact bilaterally ENMT: Ears: no external ear abnormality Nose: no external nose abnormality Mouth: + dry oral mucous membranes Neck: no nuchal rigidity Respiratory: normal respiratory effort Auscultation: + diminished lung sounds Cardiovascular: Rate/Rhythm: regular rate and regular rhythm Extremities: + edema (trace-1+ BLE pretibial again less taut and trace-1+ hips/ dependent) Gastrointestinal (Abdomen): Inspection/Auscultation: normal bowel sounds Percussion/Palpation: abdomen soft; abdomen nontender Musculoskeletal: Extremities: + abnormal strength (Generalized weakness) Skin: no rashes, warm and dry Neurologic: miranda, fluent speech, no tremor Psychiatric: Orientation: oriented to person and oriented to place Genitourinary: bob w/ scant urine Results & Data ([facility]) Vital Signs (Past 12 Hours) Vital Signs Temp Pulse Pulse Pulse Resp BP BP 01/31/22 14:54 36.8 C 96 H 18 95/56 L 01/31/22 13:00 99 H 145/103 H 01/31/22 12:40 97 H 125/63 01/31/22 12:20 105 H 123/81 01/31/22 12:00 102 H 113/96 01/31/22 11:40 106 H 106/82 01/31/22 11:20 93 H 113/77 01/31/22 11:00 106 H 107/80 01/31/22 10:40 106 H 95/67 L 01/31/22 10:24 89 126/72 01/31/22 10:10 36.3 C L 84 01/31/22 07:36 36.7 C 86 22 106/59 L 01/31/22 05:01 36.4 C L 91 H 18 87/42 L Pulse Ox 01/31/22 14:54 90 01/31/22 13:00 01/31/22 12:40 01/31/22 12:20 01/31/22 12:00 01/31/22 11:40 01/31/22 11:20 01/31/22 11:00 01/31/22 10:40 01/31/22 10:24 01/31/22 10:10 01/31/22 07:36 97 01/31/22 05:01 96 Laboratory Results 01/31/22 06:36 01/31/22 06:36
[2022-01-31] MEDS: LEVALBUTEROL TARTRATE 15 GM HFA.AER.AD INH PRN (20:22)
[2022-02-01] MEDS: DICLOFENAC SOD 1% GEL 100 GM TUBE EXT PRN (00:06)
[2022-02-01] MEDS ORDERED: GLUCOSE 40% GEL 15 GM TUBE PO PRN (04:45)
[2022-02-01] MEDS ORDERED: DEXTROSE 50% 50 ML SYRINGE IV PRN (04:45)
[2022-02-01] MEDS ORDERED: CARBOHYDRATES FOR HYPOGLYCEMIA PO PRN (04:45)
[2022-02-01] MEDS ORDERED: GLUCOSE 10 TABS/TUBE PO PRN (04:45)
[2022-02-01] MEDS ORDERED: GLUCAGON FOR INJ 1 MG VIAL IM PRN (04:45)
[2022-02-01 06:26] LABS: HBSAG NON-REACTIVE (NON-REACTIVE)
[2022-02-01] MEDS: LEVOTHYROXINE SODIUM 125 MCG TABLET PO SCH (06:31)
[2022-02-01] MEDS: LIDOCAINE 5% 1 PATCH TD SCH (07:21)
[2022-02-01] MEDS: ASCORBIC ACID 500 MG TAB PO SCH (07:21)
[2022-02-01] MEDS: FOLIC ACID 1 MG TAB PO SCH (07:22)
[2022-02-01] MEDS: FERROUS SULFATE 325 MG TAB PO SCH (07:22)
[2022-02-01] MEDS: MULTIVITAMIN TAB PO SCH (07:22)
[2022-02-01] MEDS: METOPROLOL SUCC 25MG EXT REL TAB PO SCH ×4 (07:22→21:28)
[2022-02-01] MEDS: CYANOCOBALAMIN (B-12) 500 MCG TABLET PO SCH (07:22)
[2022-02-01] MEDS: POLYETHYLENE (MIRALAX) 17 GM PACK PO SCH (07:24)
[2022-02-01] MEDS: BACLOFEN 10 MG TAB PO SCH (07:26)
[2022-02-01] MEDS: oxyCODONE HCL IR 5 MG TAB (IMMEDIATE RELEASE) PO PRN (07:26)
[2022-02-01] MEDS: AMIODARONE 200 MG TAB PO SCH ×3 (08:49→17:04)
[2022-02-01] MEDS: MIDODRINE HCL 2.5 MG TAB PO SCH ×3 (08:50→17:04)
[2022-02-01] MEDS: diphenhydrAMINE Capsule 25 MG CAP PO PRN (08:52)
[2022-02-01 09:10] LABS: Hematocrit (blood only) 31.3 % (37-47); Mean Corpuscular Hgb Conc 28.8 g/dL (32-36); Mean Platelet Volume 9.6 fL (7.4-10.4); Platelet Count 125 K/uL (130-400); RDW Coefficient of Variation 24.4 % (11.5-14.5); RDW Standard Deviation 85.2 fL (36.4-46.3); Red Blood Count 3.33 M/uL (4.2-5.4)
[2022-02-01] MEDS ORDERED: ONDANSETRON 4 MG OD TAB PO PRN (09:26)
[2022-02-01] MEDS ORDERED: ONDANSETRON INJ 2 MG/ML 2 ML VIAL IV ONE (09:26)
[2022-02-01 09:38] LABS: BUN Creatinine Ratio 3.5 (10-20); Calcium 8.2 mg/dl (8.5-10.1); Creatinine Clr Calc Pharmacy 25.7 ml/min; Est GFR (African American) 20.4 ml/min; Est GFR (Non-African American) 17.6 ml/min; Potassium 3.9 mmol/L (3.5-5.1)
--- NOTE | 2022-02-01 10:16 | Hospitalist Progress Note ---
Date of Service February 01, 2022 Assessment & Plan (1) History of noncompliance with medical treatment: (2) Congestive heart failure: (3) Leg edema: Plan: 76 yr female with H/O DM II, hypothyroidism, hyperlipidemia, COPD, on chronic oxygen baseline 3 liters oxygen, sleep apnea not on CPAP - intolerant as per the patient, paroxysmal atrial fibrillation, cor pulmonale, chronic essential hypertension, morbid obesity, irritable bowel syndrome, stage III chronic kidney disease, mixed stress and urge incontinence, chronic pain syndrome, TIA. Patient presented 01/01 to our ED with complaint of progressive fluid retention along with worsening shortness of breath, denies fever and aspiration, reports compliance with home medication. 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 Acute Metabolic Encephalopathy -POA Likely multifactorial: Hypercarbia,Uremia, Hyponatremia, Medications H/O COPD and sleep apnea and intolerance to CPAP and/or BiPAP Chronic Oxygen dependency: 3L at rest and 4L with activity at baseline Continue dialysis as per Nephrology Titrate Oxygen to keep Sats 88-92% given H/O COPD Baclofen was decreased to 5mg daily Minimize Narcotic use as able. Hold for excess sedation Home oxycodone/oxycontin has been titrated down over time to oxycodone 2.5mg bid prn Continue lidocaine patch BiPAP as needed Based on Navigator's discussion with [facility], patient does not have CPAP/BIPAP and only uses oxygen. Will need sleep study outpatient Will get ABG and overnight pulse ox to see if this will qualify patient for loaner BIPAP until able to do sleep study Acute on chronic heart failure with preserved ejection fraction Possible cardiorenal syndrome Patient reports increasing bilateral lower extremity swelling prior to arrival --11/29 ECHO:Ejection fraction greater than 70%, hyperdynamic left ventricle with normal left ventricle size and normal left ventricular wall thickness. ? Med compliance Appreciate Cardiology, Nephrology Input Pt did not diurese with IV Lasix . Continue with strict I's and O's, daily weights, fluid restriction Midodrine was added for hypotension Volume status being addressed with dialysis Permanent Catheter for HD placed on 01/10/22 Currently on dialysis Saturday Will be HD moving forward on dc Concern for HCAP UTI / CAUTI : Pt w/ bob at home (per patient after her last discharge), urine Cx +ve for ESBL UTI CXR: Concern for developing fibrosis versus infectious process CTAP and CT chest: Suggestive of post inflammatory fibrosis, urinary bladder wall thickening with perivesicular stranding/correlate with urinalysis. Patient started on ertapenem 01/02-->Meropenem 01/04. 01/04 MRSA negative. Completed antibiotic course STACY with CKD Baseline creatinine around 1.3-1.5 Cr 5.26>3.8>3.6>3.9>3.44 Appreciate nephrology recommendation Now on HD MWF DM II ISS for now Monitor BGs Hypothyroidism Continue Levothyroxine H/O A. fib Afib RVR: Dofetilide discontinued Not on anticoagulation, Xarelto was stopped in past because of history of hematochezia Appreciate cardiology input and recommendation Continue amiodarone, metoprolol Also on midodrine for persistent hypotension Needs follow-up with cardiology upon discharge Dysphagia Aspiration Precautions Speech Eval completed Pureed diet COPD Sleep apnea Does not use any CPAP (as above) COPD remains stable Patient has declined Incruse Ellipta in the past, continue with home inhalers Chronic pain Patient reports multiple joint pains Minimize Narcotic use Voltaren Gel PRN Anemia of chronic disease: Baseline hemoglobin 7-8 Monitor CBC Continue with iron supplementation Received Epo, Venofer DVT Px: SCDs Re: hx of GIB Code Status DNI/DNR Disposition: CM working on placement Plan to dc on current medications Admission and Anticipated Discharge Date Admission Date: January 02, 2022 Subjective Patient seen and examined. Reports low back pain which is chronic, intermittent is currently controlled Reports nausea this morning Denies any headache, dizziness Denies chest pain, cough, shortness of breath Denies abdominal pain. Last BM was 2 days ago. Passing flatus Physical Exam Constitutional: + well hydrated and + obese; no acute distress chronically ill looking. Eyes: PERRL, conjunctivae normal, anicteric sclerae ENMT: external ear and nose normal, oropharynx normal Respiratory: normal respiratory effort; no respiratory distress Diminished breath sounds Cardiovascular: Rate/Rhythm: regular rate and regular rhythm S1 S2 Gastrointestinal (Abdomen): normal bowel sounds, soft, nontender, no hepatosplenomegaly Musculoskeletal: Pedal edema (improving) Neurologic: PERRL, EOMI, accommodation nl, no face palsy, no dysarthria Psychiatric: A+Ox3, euthymic affect Results & Data Results & Data ([facility]) Vital Signs (Past 12 Hours) Vital Signs Temp Pulse Pulse Resp BP BP Pulse Ox 02/01/22 08:00 107 H 02/01/22 06:58 36.4 C L 101 H 18 75/44 L 98 02/01/22 04:00 36.6 C 115 H 22 89/49 L 97 01/31/22 22:56 36.6 C 100 H 18 94/60 L 96 Laboratory Results Abnormal lab results 01/31/22 01/31/22 02/01/22 Range/Units 16:16 19:36 08:33 RBC 3.33 L (4.2-5.4) M/uL Hgb 9.0 L (12.0-16.0) g/dL Hct 31.3 L (37-47) % MCHC 28.8 L (32-36) g/dL RDW Std Deviation 85.2 H (36.4-46.3) fL RDW Coeff of [place] 24.4 H (11.5-14.5) % Plt Count 125 L (130-400) K/uL Creatinine (0.6-1.2) mg/dl BUN/Creatinine Ratio (10-20) POC Glucose 107 H 128 H (70-99) mg/dl Calcium (8.5-10.1) mg/dl 02/01/22 02/01/22 Range/Units 08:33 11:17 RBC (4.2-5.4) M/uL Hgb (12.0-16.0) g/dL Hct (37-47) % MCHC (32-36) g/dL RDW Std Deviation (36.4-46.3) fL RDW Coeff of [place] (11.5-14.5) % Plt Count (130-400) K/uL Creatinine 2.57 H D (0.6-1.2) mg/dl BUN/Creatinine Ratio 3.5 L (10-20) POC Glucose 120 H (70-99) mg/dl Calcium 8.2 L (8.5-10.1) mg/dl (1) Congestive heart failure Heart failure chronicity: acute Heart failure type: combined systolic and diastolic Qualified Code(s): I50.41 - Acute combined systolic (congestive) and diastolic (congestive) heart failure
[2022-02-01 14:41] LABS: Allen Test Pos (Pos); Base Excess ABG 1.4 mEq/L (-9-1.8); HCO3 ABG 29 mmol/L (19-24); Oxygen Saturation ABG 94.6 % (90-95); PCO2 ABG 62 mmHg (35-46); PO2 ABG 76 mmHg (80-95); pH ABG 7.29 (7.35-7.45)
--- NOTE | 2022-02-01 16:20 | Nephrology Progress Note ---
Date of Service February 01, 2022 Assessment & Plan (1) Acute on chronic renal failure: Plan: oliogoanuric dialysis dependent ischemic ATN after several days of AF/F, tachycardia, and hypotension and with pre-existing cardiorenal syndrome. Baseline creatinine is somewhat labile but runs generally to high ones. Her creatinine at d/c on 12/25 was 1.4; was 2 on admission 01/02. First day of dialysis January 10. Overall renal prognosis very poor; may need to revisit goals of care. She is aware for now may need LT dialysis and seems to accept this though we are still monitoring for recovery. Awaiting SNF placement in [facility]. >in [facility], would need HD at [facility] under care of Dr Diggs -tolerated HD 01/29 with 1.7L UF; also tolerated 01/31 -Next dialysis will be saturday as tolerated if hemodynamics permit -UOP increased from yesterday not sustained unfortunately; cont to monitor Daily basic metabolic panel -Continue tid Midodrine (2) Electrolyte and fluid disorder: Plan: Profound volume overload\anasarca in the setting of lower blood pressures intermittently as low as the 80s to 90s systolic but HR now 80-110s. Chemistries acceptable for now. monitor for need need low sodium diet and fluid limit 1.2 L daily Strict intake and output to continue Admission and Anticipated Discharge Date Admission Date: January 02, 2022 Subjective ongoing low back pain. son at bedside; pt denies n/v, worseingn sob; some lower BP past 36 hrs but not sx Review of Systems Review of Systems: All systems reviewed & are unremarkable except as noted in Subjective Physical Exam Constitutional: well developed, + morbidly obese, + frail appearing and + edematous (improving further though still dependent); no acute distress Eyes: EOM intact bilaterally ENMT: Ears: no external ear abnormality Nose: no external nose abnormality Mouth: + dry oral mucous membranes Neck: no nuchal rigidity Respiratory: normal respiratory effort Auscultation: + diminished lung sounds Cardiovascular: Rate/Rhythm: regular rate and regular rhythm Extremities: + edema (trace BLE pretibial again less taut and 1++ hips/ dependent) Gastrointestinal (Abdomen): Inspection/Auscultation: normal bowel sounds Percussion/Palpation: abdomen soft; abdomen nontender Musculoskeletal: Extremities: + abnormal strength (Generalized weakness) Skin: no rashes, warm and dry Neurologic: intermittently lethargic/doses off; miranda, marked generalized weakness Psychiatric: Orientation: oriented to person and oriented to place Results & Data ([facility]) Vital Signs (Past 12 Hours) Vital Signs Temp Pulse Pulse Resp BP Pulse Ox 02/01/22 15:52 88 02/01/22 15:37 36.4 C L 91 H 19 91/52 L 98 02/01/22 12:07 36.6 C 83 20 65/46 L 96 02/01/22 08:00 107 H 02/01/22 06:58 36.4 C L 101 H 18 75/44 L 98
[2022-02-01] MEDS ORDERED: ACETAMINOPHEN 500 MG TAB PO ONE (17:46)
[2022-02-01] MEDS ORDERED: diphenhydrAMINE Capsule 25 MG CAP PO ONE (21:28)
[2022-02-02] MEDS: oxyCODONE HCL IR 5 MG TAB (IMMEDIATE RELEASE) PO PRN ×2 (02:04→14:15)
[2022-02-02] MEDS: ONDANSETRON INJ 2 MG/ML 2 ML VIAL IV PRN (05:21)
[2022-02-02] MEDS: LEVOTHYROXINE SODIUM 125 MCG TABLET PO SCH (05:49)
[2022-02-02 06:12] LABS: Hematocrit (blood only) 30.4 % (37-47); Hemoglobin 8.7 g/dL (12.0-16.0); Mean Corpuscular Hemoglobin 27.1 pg (25-34); Mean Corpuscular Hgb Conc 28.6 g/dL (32-36); Mean Corpuscular Volume 94.7 fL (80-100); Mean Platelet Volume 9.1 fL (7.4-10.4); Platelet Count 159 K/uL (130-400); RDW Coefficient of Variation 24.5 % (11.5-14.5); RDW Standard Deviation 84.8 fL (36.4-46.3); Red Blood Count 3.21 M/uL (4.2-5.4); White Blood Count 6.85 K/uL (4.8-10.8)
[2022-02-02 06:27] LABS: BUN Creatinine Ratio 4.4 (10-20); Calcium 8.1 mg/dl (8.5-10.1); Creatinine Clr Calc Pharmacy 19.3 ml/min; Est GFR (African American) 14.5 ml/min; Est GFR (Non-African American) 12.5 ml/min; Potassium 3.7 mmol/L (3.5-5.1)
[2022-02-02] MEDS: METOPROLOL SUCC 25MG EXT REL TAB PO SCH ×4 (07:48→20:56)
[2022-02-02] MEDS: diphenhydrAMINE Capsule 25 MG CAP PO PRN (07:48)
[2022-02-02] MEDS: POLYETHYLENE (MIRALAX) 17 GM PACK PO SCH (07:49)
[2022-02-02] MEDS: LIDOCAINE 5% 1 PATCH TD SCH (07:50)
[2022-02-02] MEDS: AMIODARONE 200 MG TAB PO SCH ×3 (07:51→18:09)
[2022-02-02] MEDS: BACLOFEN 10 MG TAB PO SCH (07:51)
[2022-02-02] MEDS: ASCORBIC ACID 500 MG TAB PO SCH (07:52)
[2022-02-02] MEDS: MULTIVITAMIN TAB PO SCH (07:52)
[2022-02-02] MEDS: FOLIC ACID 1 MG TAB PO SCH (07:53)
[2022-02-02] MEDS: MIDODRINE HCL 2.5 MG TAB PO SCH ×3 (07:54→18:09)
[2022-02-02] MEDS: CYANOCOBALAMIN (B-12) 500 MCG TABLET PO SCH (07:55)
[2022-02-02] MEDS: FERROUS SULFATE 325 MG TAB PO SCH (07:55)
--- NOTE | 2022-02-02 12:27 | Hospitalist Progress Note ---
Date of Service February 02, 2022 Assessment & Plan (1) History of noncompliance with medical treatment: (2) Congestive heart failure: (3) Leg edema: Plan: 76 yr female with H/O DM II, hypothyroidism, hyperlipidemia, COPD, on chronic oxygen baseline 3 liters oxygen, sleep apnea not on CPAP - intolerant as per the patient, paroxysmal atrial fibrillation, cor pulmonale, chronic essential hypertension, morbid obesity, irritable bowel syndrome, stage III chronic kidney disease, mixed stress and urge incontinence, chronic pain syndrome, TIA. Patient presented 01/01 to our ED with complaint of progressive fluid retention along with worsening shortness of breath, denies fever and aspiration, reports compliance with home medication. 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 Acute Metabolic Encephalopathy -POA Likely multifactorial: Hypercarbia,Uremia, Hyponatremia, Medications H/O COPD and sleep apnea and intolerance to CPAP and/or BiPAP Chronic Oxygen dependency: 3L at rest and 4L with activity at baseline Continue dialysis as per Nephrology Titrate Oxygen to keep Sats 88-92% given H/O COPD Baclofen was decreased to 5mg daily Minimize Narcotic use as able. Hold for excess sedation Home oxycodone/oxycontin has been titrated down over time to oxycodone 2.5mg bid prn Continue lidocaine patch BiPAP as needed Based on Navigator's discussion with [facility], patient does not have CPAP/BIPAP and only uses oxygen. Will need sleep study outpatient ABG showed hypercarbia. However, nocturnal pulse ox showed desats <88% for 2min 26s. Will follow up with CM and [facility] if patient qualifies for interim BIPAP until Sleep study can be done outpatient Acute on chronic heart failure with preserved ejection fraction Possible cardiorenal syndrome Patient reports increasing bilateral lower extremity swelling prior to arrival --11/29 ECHO:Ejection fraction greater than 70%, hyperdynamic left ventricle with normal left ventricle size and normal left ventricular wall thickness. ? Med compliance Appreciate Cardiology, Nephrology Input Pt did not diurese with IV Lasix . Continue with strict I's and O's, daily weights, fluid restriction Midodrine was added for hypotension Volume status being addressed with dialysis Permanent Catheter for HD placed on 01/10/22 Currently on dialysis [facility] Wednesday Delfino Will be on HD moving forward Concern for HCAP UTI / CAUTI : Pt w/ bob at home (per patient after her last discharge), urine Cx +ve for ESBL UTI CXR: Concern for developing fibrosis versus infectious process CTAP and CT chest: Suggestive of post inflammatory fibrosis, urinary bladder wall thickening with perivesicular stranding/correlate with urinalysis. Patient started on ertapenem 01/02-->Meropenem 01/04. 01/04 MRSA negative. Completed antibiotic course STACY with CKD Baseline creatinine around 1.3-1.5 Cr 5.26>3.8>3.6>3.9>3.44>3.41 Appreciate nephrology recommendation Now on HD MWF DM II ISS for now Monitor BGs Hypothyroidism Continue Levothyroxine H/O A. fib Afib RVR: Dofetilide discontinued Not on anticoagulation, Xarelto was stopped in past because of history of hematochezia Appreciate cardiology input and recommendation Continue amiodarone, metoprolol Also on midodrine for persistent hypotension Needs follow-up with cardiology upon discharge Dysphagia Aspiration Precautions Speech Eval completed Pureed diet COPD Sleep apnea Does not use any CPAP (as above) COPD remains stable Patient has declined Incruse Ellipta in the past, continue with home inhalers Chronic pain Patient reports multiple joint pains Minimize Narcotic use Voltaren Gel PRN Anemia of chronic disease: Baseline hemoglobin 7-8 Monitor CBC Continue with iron supplementation Received Epo, Venofer DVT Px: SCDs Re: hx of GIB Code Status DNI/DNR Disposition: CM working on placement Plan to dc on current medications Pruritic rash likely allergy to diclofenac gel received overnight as patient has allergy to NSAIDS Though patient seemed to have tolerated this before, will dc this for now Benadryl prn Admission and Anticipated Discharge Date Admission Date: January 02, 2022 Subjective Patient seen and examined. Reported pruritic rash overnight Improved with benadryl Reports low back pain is control Had small BM this morning Denies any headache, dizziness Denies chest pain, cough, shortness of breath Denies abdominal pain., nausea or vomiting Physical Exam Constitutional: + well hydrated and + obese; no acute distress Eyes: PERRL, conjunctivae normal, anicteric sclerae ENMT: external ear and nose normal, oropharynx normal Respiratory: normal respiratory effort; no respiratory distress Cardiovascular: Rate/Rhythm: regular rate and regular rhythm S1 S2 Gastrointestinal (Abdomen): normal bowel sounds, soft, nontender, no hepatosp lenomegaly Skin: Erythematous rash over trunk Neurologic: PERRL, EOMI, accommodation nl, no face palsy, no dysarthria Psychiatric: A+Ox3, euthymic affect Results & Data Results & Data ([facility]) Vital Signs (Past 12 Hours) Vital Signs Temp Pulse Pulse Pulse Pulse Resp BP 02/02/22 08:49 87 02/02/22 07:46 36.9 C 88 20 76/49 L 02/02/22 03:44 81 02/02/22 03:27 36.9 C 81 20 74/41 L Pulse Ox Pulse Ox 02/02/22 08:49 02/02/22 07:46 100 02/02/22 03:44 98 02/02/22 03:27 100 Laboratory Results Abnormal lab results 02/01/22 02/01/22 02/02/22 Range/Units 14:12 16:26 05:51 RBC 3.21 L (4.2-5.4) M/uL Hgb 8.7 L (12.0-16.0) g/dL Hct 30.4 L (37-47) % MCHC 28.6 L (32-36) g/dL RDW Std Deviation 84.8 H (36.4-46.3) fL RDW Coeff of Lawrence 24.5 H (11.5-14.5) % ABG pH 7.29 L (7.35-7.45) ABG pCO2 62 H (35-46) mmHg ABG pO2 76 L (80-95) mmHg ABG HCO3 29 H (19-24) mmol/L Creatinine (0.6-1.2) mg/dl BUN/Creatinine Ratio (10-20) POC Glucose 123 H (70-99) mg/dl Calcium (8.5-10.1) mg/dl 02/02/22 02/02/22 Range/Units 05:51 11:21 RBC (4.2-5.4) M/uL Hgb (12.0-16.0) g/dL Hct (37-47) % MCHC (32-36) g/dL RDW Std Deviation (36.4-46.3) fL RDW Coeff of Lawrence (11.5-14.5) % ABG pH (7.35-7.45) ABG pCO2 (35-46) mmHg ABG pO2 (80-95) mmHg ABG HCO3 (19-24) mmol/L Creatinine 3.41 H D (0.6-1.2) mg/dl BUN/Creatinine Ratio 4.4 L (10-20) POC Glucose 112 H (70-99) mg/dl Calcium 8.1 L (8.5-10.1) mg/dl (1) Congestive heart failure Heart failure chronicity: acute Heart failure type: combined systolic and diastolic Qualified Code(s): I50.41 - Acute combined systolic (congestive) and diastolic (congestive) heart failure
--- NOTE | 2022-02-02 19:13 | Nephrology Progress Note ---
Date of Service February 02, 2022 Assessment & Plan (1) Acute on chronic renal failure: Plan: Oliogoanuric dialysis dependent ischemic ATN after several days of AF/F, tac hycardia, and hypotension and with pre-existing cardiorenal syndrome. Baseline creatinine is somewhat labile but runs generally to high ones. Her creatinine at d/c on 12/25 was 1.4; was 2 on admission 01/02. First day of dialysis January 10. Overall renal prognosis very poor; may need to revisit goals of care. She is aware for now may need LT dialysis and seems to accept this though we are still monitoring for recovery. Awaiting SNF placement in [facility]. >in [facility], would need HD at [facility] under care of Dr Diggs -tolerated HD 01/29 with 1.7L UF; also tolerated 01/31 - for Hd Today 2- 2.5 Lit Uf as Bp permits. - nOt much change in UOP Daily basic metabolic panel -Continue tid Midodrine (2) Electrolyte and fluid disorder: Plan: Profound volume overload\anasarca in the setting of lower blood pressures intermittently as low as the 80s to 90s systolic but HR now 80-110s. Chemistries acceptable for now. monitor for need need low sodium diet and fluid limit 1.2 L daily Strict intake and output to continue Admission and Anticipated Discharge Date Admission Date: January 02, 2022 Subjective low back pain is control Denies chest pain, cough, shortness of breath Denies abdominal pain., nausea or vomiting Review of Systems Review of Systems: All other systems were reviewed and negative except as noted in HPI Physical Exam Physical Exam: Constitutional:I + well hydrated a nd + obese; no acu te distress Eyes: PERRL, conjunctiva e normal, anicteri c sclerae ENMT: external ear and n ose normal, oropha rynx normal Respiratory: normal respiratory effort; no respir atory distress Cardiovascular:I Rate/Rhythm: regul ar rate and regula r rhythm S1 S2 Gastrointestinal ( Abdomen): normal bowel sound s, soft, nontender , no hepatosplenom egaly Skin: Erythematous rash over trunk Neurologic: PERRL, EOMI, accom modation nl, no fa ce palsy, no dysar thria Psychiatric: A+Ox3, euthymic af fect Results & Data ([facility]) Vital Signs (Past 12 Hours) Vital Signs Temp Pulse Pulse Pulse Resp BP BP 02/02/22 17:40 109 H 106/52 L 02/02/22 17:20 101 H 81/53 L 02/02/22 17:00 100 H 86/59 L 02/02/22 16:40 102 H 95/52 L 02/02/22 16:20 101 H 84/56 L 02/02/22 16:00 89 80/62 L 02/02/22 15:40 87 98/55 L 02/02/22 15:23 87 97/54 L 02/02/22 15:18 92 H 79/56 L 02/02/22 15:13 88 02/02/22 14:40 37.0 C 86 02/02/22 12:37 37 C 91 H 20 110/41 L 02/02/22 08:49 87 02/02/22 07:46 36.9 C 88 20 BP Pulse Ox 02/02/22 17:40 02/02/22 17:20 02/02/22 17:00 02/02/22 16:40 02/02/22 16:20 02/02/22 16:00 02/02/22 15:40 02/02/22 15:23 02/02/22 15:18 02/02/22 15:13 02/02/22 14:40 02/02/22 12:37 92 02/02/22 08:49 02/02/22 07:46 76/49 L 100 Laboratory Results 02/02/22 05:51 02/02/22 05:51
[2022-02-03] MEDS: LEVOTHYROXINE SODIUM 125 MCG TABLET PO SCH (05:46)
[2022-02-03] MEDS: FOLIC ACID 1 MG TAB PO SCH (07:18)
[2022-02-03] MEDS: METOPROLOL SUCC 25MG EXT REL TAB PO SCH ×4 (07:18→22:42)
[2022-02-03] MEDS: MULTIVITAMIN TAB PO SCH (07:18)
[2022-02-03] MEDS: ASCORBIC ACID 500 MG TAB PO SCH (07:19)
[2022-02-03] MEDS: MIDODRINE HCL 2.5 MG TAB PO SCH ×3 (07:20→16:52)
[2022-02-03] MEDS: CYANOCOBALAMIN (B-12) 500 MCG TABLET PO SCH (07:20)
[2022-02-03] MEDS: BACLOFEN 10 MG TAB PO SCH (07:20)
[2022-02-03] MEDS: FERROUS SULFATE 325 MG TAB PO SCH (07:20)
[2022-02-03] MEDS: AMIODARONE 200 MG TAB PO SCH ×3 (07:21→16:53)
[2022-02-03] MEDS: LIDOCAINE 5% 1 PATCH TD SCH (07:21)
[2022-02-03] MEDS: POLYETHYLENE (MIRALAX) 17 GM PACK PO SCH (07:22)
[2022-02-03 07:28] LABS: BUN Creatinine Ratio 4.7 (10-20); Est GFR (African American) 18.8 ml/min; Est GFR (Non-African American) 16.2 ml/min; Potassium 3.8 mmol/L (3.5-5.1)
--- NOTE | 2022-02-03 09:54 | Hospitalist Progress Note ---
Date of Service February 03, 2022 Assessment & Plan (1) History of noncompliance with medical treatment: (2) Congestive heart failure: (3) Leg edema: Plan: 76 yr female with H/O DM II, hypothyroidism, hyperlipidemia, COPD, on chronic oxygen baseline 3 liters oxygen, sleep apnea not on CPAP - intolerant as per the patient, paroxysmal atrial fibrillation, cor pulmonale, chronic essential hypertension, morbid obesity, irritable bowel syndrome, stage III chronic kidney disease, mixed stress and urge incontinence, chronic pain syndrome, TIA. Patient presented 01/01 to our ED with complaint of progressive fluid retention along with worsening shortness of breath, denies fever and aspiration, reports compliance with home medication. 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 Acute Metabolic Encephalopathy -POA Likely multifactorial: Hypercarbia,Uremia, Hyponatremia, Medications H/O COPD and sleep apnea and intolerance to CPAP and/or BiPAP Chronic Oxygen dependency: 3L at rest and 4L with activity at baseline Continue dialysis as per Nephrology Titrate Oxygen to keep Sats 88-92% given H/O COPD Baclofen was decreased to 5mg daily Minimize Narcotic use as able. Hold for excess sedation Home oxycodone/oxycontin has been titrated down over time to oxycodone 2.5mg bid prn Continue lidocaine patch BiPAP as needed Based on Navigator's discussion with [facility], patient does not have CPAP/BIPAP and only uses oxygen. Will need sleep study outpatient ABG showed hypercarbia. However, nocturnal pulse ox showed desats <88% for 2min 26s. Will follow up with CM and angie on Saturday if patient qualifies for interim BIPAP until Sleep study can be done outpatient Acute on chronic heart failure with preserved ejection fraction Possible cardiorenal syndrome Patient reports increasing bilateral lower extremity swelling prior to arrival --11/29 ECHO:Ejection fraction greater than 70%, hyperdynamic left ventricle with normal left ventricle size and normal left ventricular wall thickness. ? Med compliance Appreciate Cardiology, Nephrology Input Pt did not diurese with IV Lasix . Continue with strict I's and O's, daily weights, fluid restriction Midodrine was added for hypotension Volume status being addressed with dialysis Permanent Catheter for HD placed on 01/10/22 Currently on dialysis Saturday Will be on HD moving forward Concern for HCAP UTI / CAUTI : Pt w/ bob at home (per patient after her last discharge), urine Cx +ve for ESBL UTI CXR: Concern for developing fibrosis versus infectious process CTAP and CT chest: Suggestive of post inflammatory fibrosis, urinary bladder wall thickening with perivesicular stranding/correlate with urinalysis. Patient started on ertapenem 01/02-->Meropenem 01/04. 01/04 MRSA negative. Completed antibiotic course STACY with CKD Baseline creatinine around 1.3-1.5 Cr 5.26>3.8>3.6>3.9>3.44>3.41>4.7 Appreciate nephrology recommendation Now on HD MWF DM II ISS for now Monitor BGs Hypothyroidism Continue Levothyroxine H/O A. fib Afib RVR: Dofetilide discontinued Not on anticoagulation, Xarelto was stopped in past because of history of hematochezia Appreciate cardiology input and recommendation Continue amiodarone, metoprolol Also on midodrine for persistent hypotension Needs follow-up with cardiology upon discharge Dysphagia Aspiration Precautions Speech Eval completed Minced and moist COPD Sleep apnea Does not use any CPAP (as above) COPD remains stable Patient has declined Incruse Ellipta in the past, continue with home inhalers Chronic pain Patient reports multiple joint pains Minimize Narcotic use Anemia of chronic disease: Baseline hemoglobin 7-8 Monitor CBC Continue with iron supplementation Received Epo, Venofer Had Pruritic rash on 02/02/22 likely allergy to diclofenac gel received o vernight as patient has allergy to NSAIDS Though patient seemed to have tolerated this before, this was discontinued Benadryl prn Rash improving DVT Px: SCDs Re: hx of GIB Code Status DNI/DNR Disposition: CM working on placement Plan to dc on current medications Admission and Anticipated Discharge Date Admission Date: January 02, 2022 Subjective Patient seen and examined. Low back pain is controlled Denies any headache, dizziness Denies chest pain, cough, shortness of breath Denies abdominal pain., nausea or vomiting Rash is resolving Physical Exam Constitutional: + well hydrated and + obese; no acute distress Eyes: PERRL, conjunctivae normal, anicteric sclerae ENMT: external ear and nose normal, oropharynx normal Respiratory: normal respiratory effort; no respiratory distress diminished breath sounds Cardiovascular: Rate/Rhythm: regular rate and regular rhythm S1 S2 Gastrointestinal (Abdomen): normal bowel sounds, soft, nontender, no hepatosplenomegaly Skin: Erythematous rash over trunk much improved Neurologic: PERRL, EOMI, accommodation nl, no face palsy, no dysarthria Psychiatric: A+Ox3, euthymic affect Results & Data Results & Data ([facility]) Vital Signs (Past 12 Hours) Vital Signs Temp Pulse Pulse Pulse Resp BP BP 02/03/22 07:57 36.5 C 101 H 24 99/53 L 02/03/22 03:43 36.8 C 122 H 18 86/52 L 02/02/22 22:47 120 H 02/02/22 22:23 36.5 C 100 H 18 86/51 L Pulse Ox 02/03/22 07:57 96 02/03/22 03:43 98 02/02/22 22:47 02/02/22 22:23 99 Laboratory Results Abnormal lab results 02/03/22 02/03/22 Range/Units 06:03 11:25 Creatinine 2.75 H D (0.6-1.2) mg/dl BUN/Creatinine Ratio 4.7 L (10-20) POC Glucose 142 H (70-99) mg/dl Calcium 8.0 L (8.5-10.1) mg/dl (1) Congestive heart failure Heart failure chronicity: acute Heart failure type: combined systolic and diastolic Qualified Code(s): I50.41 - Acute combined systolic (congestive) and diastolic (congestive) heart failure
--- NOTE | 2022-02-03 14:31 | Nephrology Progress Note ---
Date of Service February 03, 2022 Assessment & Plan (1) Acute on chronic renal failure: Plan: Oliogoanuric dialysis dependent ischemic ATN after several days of AF/F, tac hycardia, and hypotension and with pre-existing cardiorenal syndrome. Baseline creatinine is somewhat labile but runs generally to high ones. Her creatinine at d/c on 12/25 was 1.4; was 2 on admission 01/02. First day of dialysis January 10. Overall renal prognosis very poor; may need to revisit goals of care. She is aware for now may need LT dialysis and seems to accept this though we are still monitoring for recovery. Awaiting SNF placement in [facility]. >in [facility], would need HD at [facility] under care of Dr Diggs -tolerated HD 01/29 with 1.7L UF; also tolerated 01/31 - Last Hd on 02/02- 1.2 lit UF - Not much change in UOP Daily basic metabolic panel -Continue tid Midodrine (2) Electrolyte and fluid disorder: Plan: Profound volume overload\anasarca in the setting of lower blood pressures intermittently as low as the 80s to 90s systolic but HR now 80-110s. monitor for need need low sodium diet and fluid limit 1.2 L daily Strict intake and output to continue Admission and Anticipated Discharge Date Admission Date: January 02, 2022 Subjective Sleeping Comfortably. Low back pain is controlled Rash is resolving Review of Systems Review of Systems: All other systems were reviewed and negative except as noted in HPI Physical Exam Physical Exam: Constitutional:I + well hydrated a nd + obese; no acu te distress Eyes: PERRL, conjunctiva e normal, anicteri c sclerae ENMT: external ear and n ose normal, oropha rynx normal Respiratory: normal respiratory effort; no respir atory distress Cardiovascular:I Rate/Rhythm: regul ar rate and regula r rhythm S1 S2 Gastrointestinal ( Abdomen): normal bowel sound s, soft, nontender , no hepatosplenom egaly Skin: Erythematous rash over trunk- resolv ing Neurologic: PERRL, EOMI, accom modation nl, no fa ce palsy, no dysar thria Psychiatric: A+Ox3, euthymic af fect Results & Data ([facility]) Vital Signs (Past 12 Hours) Vital Signs Temp Pulse Pulse Pulse Resp BP BP 02/03/22 11:51 36.6 C 104 H 22 91/52 L 02/03/22 10:32 105 H 02/03/22 07:57 36.5 C 101 H 24 99/53 L 02/03/22 03:43 36.8 C 122 H 18 86/52 L Pulse Ox 02/03/22 11:51 97 02/03/22 10:32 02/03/22 07:57 96 02/03/22 03:43 98 Laboratory Results 02/02/22 05:51 02/03/22 06:03
[2022-02-03] MEDS: oxyCODONE HCL IR 5 MG TAB (IMMEDIATE RELEASE) PO PRN (15:26)
[2022-02-04] MEDS ORDERED: ACETAMINOPHEN 325 MG TAB PO STA (01:02)
[2022-02-04] MEDS ORDERED: SODIUM CHLORIDE 0.9% 500 ML IV SCH (05:45)
[2022-02-04] MEDS: LEVOTHYROXINE SODIUM 125 MCG TABLET PO SCH (06:21)
[2022-02-04] MEDS: METOPROLOL SUCC 25MG EXT REL TAB PO SCH ×4 (06:42→21:00)
[2022-02-04 07:58] LABS: Hematocrit (blood only) 32.3 % (37-47); Hemoglobin 9.2 g/dL (12.0-16.0); Mean Corpuscular Hemoglobin 27.4 pg (25-34); Mean Corpuscular Hgb Conc 28.5 g/dL (32-36); Mean Corpuscular Volume 96.1 fL (80-100); Platelet Count 148 K/uL (130-400); RDW Coefficient of Variation 24.5 % (11.5-14.5); RDW Standard Deviation 86.3 fL (36.4-46.3); Red Blood Count 3.36 M/uL (4.2-5.4); White Blood Count 7.01 K/uL (4.8-10.8)
[2022-02-04 08:16] LABS: Calcium 8.3 mg/dl (8.5-10.1); Creatinine Clr Calc Pharmacy 19.2 ml/min; Est GFR (African American) 14.4 ml/min; Est GFR (Non-African American) 12.5 ml/min; Potassium 4.3 mmol/L (3.5-5.1)
[2022-02-04] MEDS: MIDODRINE HCL 2.5 MG TAB PO SCH ×3 (08:23→17:15)
[2022-02-04] MEDS: FERROUS SULFATE 325 MG TAB PO SCH (08:23)
[2022-02-04] MEDS: MULTIVITAMIN TAB PO SCH (08:23)
[2022-02-04] MEDS: BACLOFEN 10 MG TAB PO SCH (08:23)
[2022-02-04] MEDS: FOLIC ACID 1 MG TAB PO SCH (08:23)
[2022-02-04] MEDS: LIDOCAINE 5% 1 PATCH TD SCH (08:23)
[2022-02-04] MEDS: AMIODARONE 200 MG TAB PO SCH ×4 (08:23→17:03)
[2022-02-04] MEDS: POLYETHYLENE (MIRALAX) 17 GM PACK PO SCH (08:24)
[2022-02-04] MEDS: ASCORBIC ACID 500 MG TAB PO SCH (08:24)
[2022-02-04] MEDS: CYANOCOBALAMIN (B-12) 500 MCG TABLET PO SCH (08:25)
--- NOTE | 2022-02-04 11:16 | Nephrology Progress Note ---
Date of Service February 04, 2022 Assessment & Plan (1) Acute on chronic renal failure: Plan: Oliogoanuric dialysis dependent ischemic ATN after several days of AF/F, tac hycardia, and hypotension and with pre-existing cardiorenal syndrome. Baseline creatinine is somewhat labile but runs generally to high ones. Her creatinine at d/c on 12/25 was 1.4; was 2 on admission 01/02. First day of dialysis January 10. Overall renal prognosis very poor; may need to revisit goals of care. She is aware for now may need LT dialysis and seems to accept this though we are still monitoring for recovery. Awaiting SNF placement in [facility]. >in [facility], would need HD at [facility] under care of Dr Diggs -tolerated HD 01/29 with 1.7L UF; also tolerated 01/31 - Last Hd on 02/02- 1.2 lit UF, next HD onday - Not much change in UOP Daily basic metabolic panel -Continue tid Midodrine (2) Electrolyte and fluid disorder: Plan: Profound volume overload\anasarca in the setting of lower blood pressures intermittently as low as the 80s to 90s systolic but HR now 80-110s. monitor for need need low sodium diet and fluid limit 1.2 L daily Strict intake and output to continue Admission and Anticipated Discharge Date Admission Date: January 02, 2022 Subjective Sleeping Comfortably. Low back pain is controlled Rash is resolving Review of Systems Review of Systems: All other systems were reviewed and negative except as noted in HPI Physical Exam Physical Exam: Constitutional:I + well hydrated a nd + obese; no acu te distress Eyes: PERRL, conjunctiva e normal, anicteri c sclerae ENMT: external ear and n ose normal, oropha rynx normal Respiratory: normal respiratory effort; no respir atory distress Cardiovascular:I Rate/Rhythm: regul ar rate and regula r rhythm S1 S2 EGastrointestinal ( Abdomen): normal bowel sound s, soft, nontender , no hepatosplenom egaly Skin: Erythematous rash over trunk- resolv ing Neurologic: PERRL, EOMI, accom modation nl, no fa ce palsy, no dysar thria Psychiatric: A+Ox3, euthymic af fect Results & Data ([facility]) Vital Signs (Past 12 Hours) Vital Signs Temp Pulse Pulse Resp BP Pulse Ox 02/04/22 08:11 122 H 02/04/22 07:00 36.2 C L 113 H 20 113/44 L 96 02/04/22 03:00 36.7 C 123 H 20 78/52 L 95 02/03/22 23:17 102 H Laboratory Results 02/04/22 07:18 02/04/22 07:18
--- NOTE | 2022-02-04 12:03 | Hospitalist Progress Note ---
Date of Service February 04, 2022 Assessment & Plan (1) History of noncompliance with medical treatment: (2) Congestive heart failure: (3) Leg edema: Plan: 76 yr female with H/O DM II, hypothyroidism, hyperlipidemia, COPD, on chronic oxygen baseline 3 liters oxygen, sleep apnea not on CPAP - intolerant as per the patient, paroxysmal atrial fibrillation, cor pulmonale, chronic essential hypertension, morbid obesity, irritable bowel syndrome, stage III chronic kidney disease, mixed stress and urge incontinence, chronic pain syndrome, TIA. Patient presented 01/01 to our ED with complaint of progressive fluid retention along with worsening shortness of breath, denies fever and aspiration, reports compliance with home medication. Of note, patient was recently discharged from hospital after being treated for respiratory failure secondary to COPD exacerbation secondary to COVID-19 infection to rehab and then transitioned to home 1 week ago [employer]. Acute Metabolic Encephalopathy -POA Likely multifactorial: Hypercarbia,Uremia, Hyponatremia, Medications H/O COPD and sleep apnea and intolerance to CPAP and/or BiPAP Chronic Oxygen dependency: 3L at rest and 4L with activity at baseline Continue dialysis as per Nephrology Titrate Oxygen to keep Sats 88-92% given H/O COPD Baclofen was decreased to 5mg daily Minimize Narcotic use as able. Hold for excess sedation Home oxycodone/oxycontin has been titrated down over time to oxycodone 2.5mg bid prn Continue lidocaine patch BiPAP as needed Based on Navigator's discussion with [facility], patient does not have CPAP/BIPAP and only uses oxygen. Will need sleep study outpatient ABG showed hypercarbia. However, nocturnal pulse ox showed desats <88% for 2min 26s. [facility] if patient qualifies for interim BIPAP until Sleep study can be done outpatient Acute on chronic heart failure with preserved ejection fraction Possible cardiorenal syndrome Patient reports increasing bilateral lower extremity swelling prior to arrival --11/29 ECHO:Ejection fraction greater than 70%, hyperdynamic left ventricle with normal left ventricle size and normal left ventricular wall thickness. ? Med compliance Appreciate Cardiology, Nephrology Input Pt did not diurese with IV Lasix . Continue with strict I's and O's, daily weights, fluid restriction Midodrine was added for hypotension Volume status being addressed with dialysis Permanent Catheter for HD placed on 01/10/22 Currently on dialysis Saturday Will be on HD moving forward Concern for HCAP UTI / CAUTI : Pt w/ bob at home (per patient after her last discharge), urine Cx +ve for ESBL UTI CXR: Concern for developing fibrosis versus infectious process CTAP and CT chest: Suggestive of post inflammatory fibrosis, urinary bladder wall thickening with perivesicular stranding/correlate with urinalysis. Patient started on ertapenem 01/02-->Meropenem 01/04. 01/04 MRSA negative. Completed antibiotic course STACY with CKD Baseline creatinine around 1.3-1.5 Cr 5.26>3.8>3.6>3.9>3.44>3.41>4.7>3.42 Appreciate nephrology recommendation Now on HD MWF DM II ISS for now Monitor BGs Hypothyroidism Continue Levothyroxine H/O A. fib Afib RVR: Dofetilide discontinued Not on anticoagulation, Xarelto was stopped in past because of history of hematochezia Appreciate cardiology input and recommendation Continue amiodarone, metoprolol Also on midodrine for persistent hypotension Needs follow-up with cardiology upon discharge Dysphagia Aspiration Precautions Speech Eval completed Minced and moist COPD Sleep apnea Does not use any CPAP (as above) COPD remains stable Patient has declined Incruse Ellipta in the past, continue with home inhalers Chronic pain Patient reports multiple joint pains Minimize Narcotic use Anemia of chronic disease: Baseline hemoglobin 7-8 Monitor CBC Continue with iron supplementation Received Epo, Venofer Had Pruritic rash on 02/02/22 likely allergy to diclofenac gel received overnight as patient has allergy to NSAIDS Though patient seemed to have tolerated this before, this was discontinued Benadryl prn Rash improving DVT Px: SCDs Re: hx of GIB Code Status DNI/DNR Disposition: CM working on placement Plan to dc on current medications Admission and Anticipated Discharge Date Admission Date: January 02, 2022 Subjective Patient seen and examined. Reports low back pain today Denies any headache, dizziness Denies chest pain, cough, shortness of breath Denies abdominal pain., nausea or vomiting Physical Exam Constitutional: + well hydrated and + obese; no acute distress Eyes: PERRL, conjunctivae normal, anicteric sclerae ENMT: external ear and nose normal, oropharynx normal Respiratory: normal respiratory effort; no respiratory distress diminished breath sounds Cardiovascular: Rate/Rhythm: regular rhythm and + tachycardic S1 S2 Gastrointestinal (Abdomen): normal bowel sounds, soft, nontender, no hepato splenomegaly Skin: rash is resolved Neurologic: PERRL, EOMI, accommodation nl, no face palsy, no dysarthria Psychiatric: A+Ox3, euthymic affect Results & Data Results & Data ([facility]) Vital Signs (Past 12 Hours) Vital Signs Temp Pulse Pulse Resp BP Pulse Ox 02/04/22 08:11 122 H 02/04/22 07:00 36.2 C L 113 H 20 113/44 L 96 02/04/22 03:00 36.7 C 123 H 20 78/52 L 95 Laboratory Results Abnormal lab results 02/03/22 02/03/22 02/04/22 Range/Units 16:30 20:09 07:18 RBC 3.36 L (4.2-5.4) M/uL Hgb 9.2 L (12.0-16.0) g/dL Hct 32.3 L (37-47) % MCHC 28.5 L (32-36) g/dL RDW Std Deviation 86.3 H (36.4-46.3) fL RDW Coeff of Lawrence 24.5 H (11.5-14.5) % Creatinine (0.6-1.2) mg/dl BUN/Creatinine Ratio (10-20) POC Glucose 148 H 124 H (70-99) mg/dl Calcium (8.5-10.1) mg/dl 02/04/22 02/04/22 Range/Units 07:18 11:43 RBC (4.2-5.4) M/uL Hgb (12.0-16.0) g/dL Hct (37-47) % MCHC (32-36) g/dL RDW Std Deviation (36.4-46.3) fL RDW Coeff of [place] (11.5-14.5) % Creatinine 3.42 H D (0.6-1.2) mg/dl BUN/Creatinine Ratio 5.0 L (10-20) POC Glucose 115 H (70-99) mg/dl Calcium 8.3 L (8.5-10.1) mg/dl (1) Congestive heart failure Heart failure chronicity: acute Heart failure type: combined systolic and diastolic Qualified Code(s): I50.41 - Acute combined systolic (congestive) and diastolic (congestive) heart failure
[2022-02-05] MEDS: LEVOTHYROXINE SODIUM 125 MCG TABLET PO SCH (05:50)
[2022-02-05] MEDS ORDERED: SODIUM CHLORIDE 0.9% 1000ML 1,000 ML IV PRN ×2 (07:00→09:39)
[2022-02-05] MEDS: ASCORBIC ACID 500 MG TAB PO SCH (08:03)
[2022-02-05] MEDS: FOLIC ACID 1 MG TAB PO SCH (08:03)
[2022-02-05] MEDS: MULTIVITAMIN TAB PO SCH (08:03)
[2022-02-05] MEDS: CYANOCOBALAMIN (B-12) 500 MCG TABLET PO SCH (08:03)
[2022-02-05] MEDS: AMIODARONE 200 MG TAB PO SCH ×3 (08:04→16:49)
[2022-02-05] MEDS: FERROUS SULFATE 325 MG TAB PO SCH (08:04)
[2022-02-05] MEDS: MIDODRINE HCL 2.5 MG TAB PO SCH ×4 (08:04→16:49)
[2022-02-05] MEDS: LIDOCAINE 5% 1 PATCH TD SCH (08:04)
[2022-02-05] MEDS: METOPROLOL SUCC 25MG EXT REL TAB PO SCH ×4 (08:05→20:56)
[2022-02-05] MEDS: POLYETHYLENE (MIRALAX) 17 GM PACK PO SCH (08:15)
[2022-02-05] MEDS: BACLOFEN 10 MG TAB PO SCH (08:15)
[2022-02-05 08:44] LABS: BUN Creatinine Ratio 5.1 (10-20); Calcium 8.5 mg/dl (8.5-10.1); Creatinine Clr Calc Pharmacy 16.7 ml/min; Est GFR (African American) 12.2 ml/min; Est GFR (Non-African American) 10.5 ml/min; Potassium 4.7 mmol/L (3.5-5.1)
[2022-02-05] MEDS ORDERED: HEPARIN SOD (PORCINE) 1000 UNIT/ML IV ONE (09:49)
--- NOTE | 2022-02-05 10:18 | Nephrology Progress Note ---
Date of Service February 05, 2022 Assessment & Plan Admission and Anticipated Discharge Date Admission Date: January 02, 2022 Subjective Assessment & Plan (1) Acute on chronic renal failure: Plan: Oligoanuric dialysis dependent ischemic ATN after several days of AF/F, tachycardia, and hypotension and with pre-existing cardiorenal syndrome. Baseline creatinine is somewhat labile but runs generally to high ones. Her creatinine at d/c on 12/25 was 1.4; was 2 on admission 01/02. First day of dialysis January 10. Overall renal prognosis very poor; may need to revisit goals of care. She is aware for now may need LT dialysis and seems to accept this though we are still monitoring for recovery. Awaiting SNF placement in [facility]. >in [facility], would need HD at [facility] under care of Dr Diggs Next HD later today - Last Hd on 02/02- 1.2 lit UF, next HD onday - Not much change in UOP Daily basic metabolic panel -Continue tid Midodrine (2) Electrolyte and fluid disorder: Plan: Profound volume overload\anasarca in the setting of lower blood pressures intermittently as low as the 80s to 90s systolic but HR now 80-110s. monitor for need need low sodium diet and fluid limit 1.2 L daily Strict intake and output to continue Subjective Sleeping Comfortably. Low back pain is ?? controlled. BP low but ?? Accuracy. Urine out still very low. Review of Systems Review of Systems: All other systems were reviewed and negative except as noted in HPI Physical Exam Physical Exam: Constitutional:I + well hydrated a nd + obese; no acu te distress Eyes: PERRL, conjunctiva e normal, anicteri c sclerae ENMT: external ear and n ose normal, oropha rynx normal Respiratory: normal respiratory effort; no respir atory distress Cardiovascular:I Rate/Rhythm: regul ar rate and regula r rhythm S1 S2 Gastrointestinal ( Abdomen): normal bowel sound s, soft, nontender , no hepatosplenom egaly Skin: Erythematous rash over trunk- resolv ing Neurologic: PERRL, EOMI, accom modation nl, no fa ce palsy, no dysar thria Psychiatric: A+Ox3, euthymic af fect Results & Data ([facility]) Vital Signs (Past 12 Hours) Vital Signs Temp Pulse Pulse Pulse Resp BP Pulse Ox 02/05/22 07:39 36.3 C L 130 H 18 96/53 L 97 02/05/22 07:23 113 H 02/05/22 03:37 36.5 C 114 H 18 99/58 L 93 02/04/22 23:02 36.6 C 114 H 18 100/66 94
[2022-02-05] MEDS: oxyCODONE HCL IR 5 MG TAB (IMMEDIATE RELEASE) PO PRN ×2 (10:36→19:34)
--- NOTE | 2022-02-05 10:37 | Hospitalist Progress Note ---
Date of Service February 05, 2022 Assessment & Plan (1) History of noncompliance with medical treatment: (2) Congestive heart failure: (3) Leg edema: Plan: 76 yr female with H/O DM II, hypothyroidism, hyperlipidemia, COPD, on chronic oxygen baseline 3 liters oxygen, sleep apnea not on CPAP - intolerant as per the patient, paroxysmal atrial fibrillation, cor pulmonale, chronic essential hypertension, morbid obesity, irritable bowel syndrome, stage III chronic kidney disease, mixed stress and urge incontinence, chronic pain syndrome, TIA. Patient presented 01/01 to our ED with complaint of progressive fluid retention along with worsening shortness of breath, denies fever and aspiration, reports compliance with home medication. Of note, patient was recently discharged from hospital after being treated for respiratory failure secondary to COPD exacerbation secondary to COVID-19 infection to rehab and then transitioned to home 1 week ago [employer]. Acute Metabolic Encephalopathy -POA Likely multifactorial: Hypercarbia,Uremia, Hyponatremia, Medications H/O COPD and sleep apnea and intolerance to CPAP and/or BiPAP Chronic Oxygen dependency: 3L at rest and 4L with activity at baseline Continue dialysis as per Nephrology Titrate Oxygen to keep Sats 88-92% given H/O COPD Baclofen was decreased to 5mg daily Minimize Narcotic use as able. Hold for excess sedation Home oxycodone/oxycontin has been titrated down over time to oxycodone 2.5mg bid prn Continue lidocaine patch Patient reports not tolerant to BIPAP. She has chronic hypercapnia Based on Navigator's discussion with [facility], patient does not have CPAP/BIPAP and only uses oxygen. Will need sleep study outpatient ABG showed hypercarbia. However, nocturnal pulse ox showed desats <88% for 2min 26s. Navigator will follow up with and [facility] today to see if patient qualifies for interim BIPAP until Sleep study can be done outpatient Trial of BIPAP here today if patient agrees Acute on chronic heart failure with preserved ejection fraction Possible cardiorenal syndrome Patient reports increasing bilateral lower extremity swelling prior to arrival --11/29 ECHO:Ejection fraction greater than 70%, hyperdynamic left ventricle with normal left ventricle size and normal left ventricular wall thickness. ? Med compliance Appreciate Cardiology, Nephrology Input Pt did not diurese with IV Lasix . Continue with strict I's and O's, daily weights, fluid restriction Midodrine was added for hypotension Volume status being addressed with dialysis Permanent Catheter for HD placed on 01/10/22 Currently on dialysis Saturday Will be on HD moving forward Concern for HCAP UTI / CAUTI : Pt w/ bob at home (per patient after her last discharge), urine Cx +ve for ESBL UTI CXR: Concern for developing fibrosis versus infectious process CTAP and CT chest: Suggestive of post inflammatory fibrosis, urinary bladder wall thickening with perivesicular stranding/correlate with urinalysis. Patient started on ertapenem 01/02-->Meropenem 01/04. 01/04 MRSA negative. Completed antibiotic course STACY with CKD Baseline creatinine around 1.3-1.5 Cr 5.26>3.8>3.6>3.9>3.44>3.41>4.7>3.42 Appreciate nephrology recommendation Now on HD MWF DM II ISS for now Monitor BGs Hypothyroidism Continue Levothyroxine H/O A. fib Afib RVR: Dofetilide discontinued Not on anticoagulation, Xarelto was stopped in past because of history of hematochezia Appreciate cardiology input and recommendation Continue amiodarone, metoprolol Also on midodrine for persistent hypotension Needs follow-up with cardiology upon discharge Dysphagia Aspiration Precautions Speech Eval completed Minced and moist COPD Sleep apnea Does not use any BIPAP/CPAP (as above) COPD remains stable Patient has declined Incruse Ellipta in the past, continue with home inhalers Chronic pain Patient reports multiple joint pains Minimize Narcotic use Anemia of chronic disease: Baseline hemoglobin 7-8 Monitor CBC Continue with iron supplementation Received Epo, Venofer Had Pruritic rash on 02/02/22 likely allergy to diclofenac gel received overnight as patient has allergy to NSAIDS Though patient seemed to have tolerated this before, this was discontinued Got benadryl Rash resolved DVT Px: SCDs Re: hx of GIB Code Status DNI/DNR Disposition: CM working on placement Plan to dc on current medications Admission and Anticipated Discharge Date Admission Date: January 02, 2022 Subjective Patient seen and examined. Reports low back pain today Denies any headache, dizziness Denies chest pain, cough, shortness of breath Denies abdominal pain, nausea or vomiting Patient occasionally drowsy during my eval Physical Exam Constitutional: + well hydrated and + obese; no acute distress Eyes: PERRL, conjunctivae normal, anicteric sclerae ENMT: external ear and nose normal, oropharynx normal Respiratory: normal respiratory effort; no respiratory distress Cardiovascular: Rate/Rhythm: regular rhythm and + tachycardic S1 S2 Gastrointestinal (Abdomen): normal bowel sounds, soft, nontender, no hepatosplenomegaly Neurologic: PERRL, EOMI, accommodation nl, no face palsy, no dysarthria Psychiatric: A+Ox3, euthymic affect Results & Data Results & Data ([facility]) Vital Signs (Past 12 Hours) Vital Signs Temp Pulse Pulse Pulse Resp BP Pulse Ox 02/05/22 07:39 36.3 C L 130 H 18 96/53 L 97 02/05/22 07:23 113 H 02/05/22 03:37 36.5 C 114 H 18 99/58 L 93 02/04/22 23:02 36.6 C 114 H 18 100/66 94 Laboratory Results Abnormal lab results 02/04/22 02/04/22 02/04/22 Range/Units 11:43 17:11 20:03 Creatinine (0.6-1.2) mg/dl BUN/Creatinine Ratio (10-20) POC Glucose 115 H 116 H 122 H (70-99) mg/dl 02/05/22 02/05/22 Range/Units 08:04 11:31 Creatinine 3.93 H D (0.6-1.2) mg/dl BUN/Creatinine Ratio 5.1 L (10-20) POC Glucose 127 H (70-99) mg/dl (1) Congestive heart failure Heart failure chronicity: acute Heart failure type: combined systolic and diastolic Qualified Code(s): I50.41 - Acute combined systolic (congestive) and diastolic (congestive) heart failure
[2022-02-05] MEDS ORDERED: EPOETIN ALFA 20,000 UNITS/ML VIAL IV ONE (11:00)
[2022-02-06] MEDS: LEVOTHYROXINE SODIUM 125 MCG TABLET PO SCH (05:54)
[2022-02-06] MEDS: POLYETHYLENE (MIRALAX) 17 GM PACK PO SCH (07:31)
[2022-02-06] MEDS: BACLOFEN 10 MG TAB PO SCH (07:31)
[2022-02-06] MEDS: METOPROLOL SUCC 25MG EXT REL TAB PO SCH ×4 (07:31→20:18)
[2022-02-06] MEDS: AMIODARONE 200 MG TAB PO SCH (07:31)
[2022-02-06] MEDS: ONDANSETRON INJ 2 MG/ML 2 ML VIAL IV PRN (07:32)
[2022-02-06] MEDS: MULTIVITAMIN TAB PO SCH (07:33)
[2022-02-06] MEDS: FOLIC ACID 1 MG TAB PO SCH (07:34)
[2022-02-06] MEDS: ASCORBIC ACID 500 MG TAB PO SCH (07:34)
[2022-02-06] MEDS: MIDODRINE HCL 2.5 MG TAB PO SCH ×3 (07:34→16:15)
[2022-02-06] MEDS: CYANOCOBALAMIN (B-12) 500 MCG TABLET PO SCH (07:34)
[2022-02-06] MEDS: FERROUS SULFATE 325 MG TAB PO SCH (07:35)
[2022-02-06] MEDS: LIDOCAINE 5% 1 PATCH TD SCH (07:35)
[2022-02-06 08:49] LABS: Hematocrit (blood only) 31.5 % (37-47); Mean Corpuscular Hemoglobin 27.4 pg (25-34); Mean Corpuscular Hgb Conc 28.6 g/dL (32-36); Mean Platelet Volume 9.8 fL (7.4-10.4); Platelet Count 106 K/uL (130-400); RDW Coefficient of Variation 23.4 % (11.5-14.5); RDW Standard Deviation 82.5 fL (36.4-46.3); Red Blood Count 3.28 M/uL (4.2-5.4); White Blood Count 6.81 K/uL (4.8-10.8)
[2022-02-06 08:53] LABS: BUN Creatinine Ratio 4.1 (10-20); Calcium 8.1 mg/dl (8.5-10.1); Creatinine Clr Calc Pharmacy 20.5 ml/min; Est GFR (African American) 15.7 ml/min; Est GFR (Non-African American) 13.5 ml/min; Potassium 4.3 mmol/L (3.5-5.1)
[2022-02-06] MEDS: MICONAZOLE NITRATE POWDER 43 GM EXT PRN (10:57)
--- NOTE | 2022-02-06 11:57 | Hospitalist Progress Note ---
Date of Service February 06, 2022 Assessment & Plan (1) History of noncompliance with medical treatment: (2) Congestive heart failure: (3) Leg edema: Plan: 76 yr female with H/O DM II, hypothyroidism, hyperlipidemia, COPD, on chronic oxygen baseline 3 liters oxygen, sleep apnea not on CPAP - intolerant as per the patient, paroxysmal atrial fibrillation, cor pulmonale, chronic essential hypertension, morbid obesity, irritable bowel syndrome, stage III chronic kidney disease, mixed stress and urge incontinence, chronic pain syndrome, TIA. Patient presented 01/01 to our ED with complaint of progressive fluid retention along with worsening shortness of breath, denies fever and aspiration, reports compliance with home medication. Of note, patient was recently discharged from hospital after being treated for respiratory failure secondary to COPD exacerbation secondary to COVID-19 infection to rehab and then transitioned to home 1 week ago [employer]ATION[employer]INE[employer]ENTICE. Acute Metabolic Encephalopathy -POA Likely multifactorial: Hypercarbia,Uremia, Hyponatremia, Medications H/O COPD and sleep apnea and intolerance to CPAP and/or BiPAP Chronic Oxygen dependency: 3L at rest and 4L with activity at baseline Continue dialysis as per Nephrology Titrate Oxygen to keep Sats 88-92% given H/O COPD Baclofen was decreased to 5mg daily Minimize Narcotic use as able. Hold for excess sedation Home oxycodone/oxycontin has been titrated down over time to oxycodone 2.5mg bid prn Continue lidocaine patch Patient reports not tolerant to BIPAP. She has chronic hypercapnia Based on Navigator's discussion with [facility], patient does not have CPAP/BIPAP and only uses oxygen. Will need sleep study outpatient ABG showed hypercarbia. However, nocturnal pulse ox showed desats <88% for 2min 26s. Navigator/ALVARO [facility] if patient qualifies for interim BIPAP with nasal mask until Sleep study can be done outpatient Acute on chronic heart failure with preserved ejection fraction Possible cardiorenal syndrome Patient reports increasing bilateral lower extremity swelling prior to arrival --11/29 ECHO:Ejection fraction greater than 70%, hyperdynamic left ventricle with normal left ventricle size and normal left ventricular wall thickness. ? Med compliance Appreciate Cardiology, Nephrology Input Pt did not diurese with IV Lasix . Continue with strict I's and O's, daily weights, fluid restriction Midodrine was added for hypotension Volume status being addressed with dialysis Permanent Catheter for HD placed on 01/10/22 Currently on dialysis Saturday Will be on HD moving forward Concern for HCAP UTI / CAUTI : Pt w/ bob at home (per patient after her last discharge), urine Cx +ve for ESBL UTI CXR: Concern for developing fibrosis versus infectious process CTAP and CT chest: Suggestive of post inflammatory fibrosis, urinary bladder wall thickening with perivesicular stranding/correlate with urinalysis. Patient started on ertapenem 01/02-->Meropenem 01/04. 01/04 MRSA negative. Completed antibiotic course STACY with CKD Baseline creatinine around 1.3-1.5 Cr 5.26>3.8>3.6>3.9>3.44>3.41>4.7>3.42 Appreciate nephrology recommendation Now on HD MWF DM II ISS for now Monitor BGs Hypothyroidism Continue Levothyroxine H/O A. fib Afib RVR Chronic hypotension: Dofetilide discontinued Not on anticoagulation, Xarelto was stopped in past because of history of hematochezia Appreciate cardiology input and recommendation Continue metoprolol Discussed with Assistant Store Leader today, reduce amiodarone to 200mg daily Also on midodrine for persistent hypotension Needs follow-up with cardiology upon discharge Dysphagia Aspiration Precautions Speech Eval completed Minced and moist COPD Sleep apnea Does not use any BIPAP/CPAP (as above) COPD remains stable Patient has declined Incruse Ellipta in the past, continue with home inhalers Chronic pain Patient reports multiple joint pains Minimize Narcotic use Anemia of chronic disease: Baseline hemoglobin 7-8 Monitor CBC Continue with iron supplementation Received Epo, Leonela Had Pruritic rash on 02/02/22 likely allergy to diclofenac gel received overnight as patient has allergy to NSAIDS Though patient seemed to have tolerated this before, this was discontinued Got benadryl Rash resolved DVT Px: SCDs Re: hx of GIB Code Status DNI/DNR Disposition: CM working on placement Plan to dc on current medications Admission and Anticipated Discharge Date Admission Date: January 02, 2022 Subjective Patient seen and examined. Reports low back pain is controlled Denies any headache, dizziness Denies chest pain Reports some occasional cough but no shortness of breath Denies abdominal pain, nausea or vomiting Physical Exam Constitutional: + well hydrated and + obese; no acute distress Eyes: PERRL, conjunctivae normal, anicteric sclerae ENMT: external ear and nose normal, oropharynx normal Respiratory: normal respiratory effort; no respiratory distress Diminished breath sounds Cardiovascular: Rate/Rhythm: + tachycardic and + irregularly irregular S1 S2 Gastrointestinal (Abdomen): normal bowel sounds, soft, nontender, no hepatosplenomegaly Musculoskeletal: pedal edema Neurologic: PERRL, EOMI, accommodation nl, no face palsy, no dysarthria Psychiatric: A+Ox3, euthymic affect Results & Data Results & Data ([facility]) Vital Signs (Past 12 Hours) Vital Signs Temp Pulse Pulse Pulse Resp BP BP 02/06/22 11:18 36.2 C L 119 H 18 94/63 L 02/06/22 08:00 36.9 C 120 H 18 97/66 L 02/06/22 07:08 131 H 02/06/22 03:00 36.9 C 88 20 104/56 L Pulse Ox 02/06/22 11:18 95 02/06/22 08:00 98 02/06/22 07:08 02/06/22 03:00 93 Laboratory Results Abnormal lab results 02/05/22 02/06/22 02/06/22 Range/Units 20:20 07:40 08:06 RBC 3.28 L (4.2-5.4) M/uL Hgb 9.0 L (12.0-16.0) g/dL Hct 31.5 L (37-47) % MCHC 28.6 L (32-36) g/dL RDW Std Deviation 82.5 H (36.4-46.3) fL RDW Coeff of Lawrence 23.4 H (11.5-14.5) % Plt Count 106 L (130-400) K/uL Creatinine (0.6-1.2) mg/dl BUN/Creatinine Ratio (10-20) POC Glucose 123 H 67 L* (70-99) mg/dl Calcium (8.5-10.1) mg/dl 02/06/22 02/06/22 02/06/22 Range/Units 08:06 11:38 12:58 RBC (4.2-5.4) M/uL Hgb (12.0-16.0) g/dL Hct (37-47) % MCHC (32-36) g/dL RDW Std Deviation (36.4-46.3) fL RDW Coeff of [place] (11.5-14.5) % Plt Count (130-400) K/uL Creatinine 3.19 H D (0.6-1.2) mg/dl BUN/Creatinine Ratio 4.1 L (10-20) POC Glucose 107 H 132 H (70-99) mg/dl Calcium 8.1 L (8.5-10.1) mg/dl (1) Congestive heart failure Heart failure chronicity: acute Heart failure type: combined systolic and diastolic Qualified Code(s): I50.41 - Acute combined systolic (congestive) and diastolic (congestive) heart failure
--- NOTE | 2022-02-06 14:31 | Nephrology Progress Note ---
Date of Service February 06, 2022 Assessment & Plan Admission and Anticipated Discharge Date Admission Date: January 02, 2022 Subjective Assessment & Plan (1) Acute on chronic renal failure: Plan: Oligoanuric dialysis dependent ischemic ATN after several days of AF/F, tachycardia, and hypotension and with pre-existing cardiorenal syndrome. Baseline creatinine is somewhat labile but runs generally to high ones. Her creatinine at d/c on 12/25 was 1.4; was 2 on admission 01/02. First day of dialysis January 10. Overall renal prognosis very poor; may need to revisit goals of care. She is aware for now may need LT dialysis and seems to accept this though we are still monitoring for recovery. Awaiting SNF placement in [facility]. >in [facility], would need HD at [facility] under care of Dr Diggs Next HD tomorrow. 3.5 hrs and take 2.5 kilo off - Last Hd on 02/02- 1.2 lit UF, next HD onday - Not much change in UOP Daily basic metabolic panel -Continue tid Midodrine (2) Electrolyte and fluid disorder: Plan: Profound volume overload\anasarca in the setting of lower blood pressures intermittently as low as the 80s to 90s systolic but HR now 80-110s. monitor for need need low sodium diet and fluid limit 1.2 L daily Strict intake and output to continue Subjective Sleeping Comfortably. Low back pain. BP low but ?? Accuracy. Urine out still very low. No major issues with Dialysis yesterday Review of Systems Review of Systems: All other systems were reviewed and negative except as noted in HPI Physical Exam Physical Exam: Constitutional:I + well hydrated a nd + obese; no acu te distress Eyes: PERRL, conjunctiva e normal, anicteri c sclerae ENMT: external ear and n ose normal, oropha rynx normal Respiratory: normal respiratory effort; no respir atory distress Cardiovascular:I Rate/Rhythm: regul ar rate and regula r rhythm S1 S2 Gastrointestinal ( Abdomen): normal bowel sound s, soft, nontender , no hepatosplenom egaly Skin: Erythematous rash over trunk- resolv ing Neurologic: PERRL, EOMI, accom modation nl, no fa ce palsy, no dysar thria Psychiatric: A+Ox3, euthymic af fect Results & Data ([facility]) Vital Signs (Past 12 Hours) Vital Signs Temp Pulse Pulse Pulse Resp BP BP 02/06/22 11:18 36.2 C L 119 H 18 94/63 L 02/06/22 08:00 36.9 C 120 H 18 97/66 L 02/06/22 07:08 131 H 02/06/22 03:00 36.9 C 88 20 104/56 L Pulse Ox 02/06/22 11:18 95 02/06/22 08:00 98 02/06/22 07:08 02/06/22 03:00 93
[2022-02-06] MEDS: oxyCODONE HCL IR 5 MG TAB (IMMEDIATE RELEASE) PO PRN (16:14)
[2022-02-07] MEDS: LEVOTHYROXINE SODIUM 125 MCG TABLET PO SCH (05:54)
[2022-02-07] MEDS ORDERED: EPOETIN ALFA 20,000 UNITS/ML VIAL IV ONE (07:00)
[2022-02-07] MEDS ORDERED: SODIUM CHLORIDE 0.9% 1000ML 1,000 ML IV PRN (07:00)
[2022-02-07] MEDS ORDERED: HEPARIN SOD (PORCINE) 1000 UNIT/ML IV SCH (07:00)
[2022-02-07] MEDS: MIDODRINE HCL 2.5 MG TAB PO SCH ×3 (08:13→16:38)
[2022-02-07] MEDS: AMIODARONE 200 MG TAB PO SCH (08:13)
[2022-02-07] MEDS: ASCORBIC ACID 500 MG TAB PO SCH (08:14)
[2022-02-07] MEDS: CYANOCOBALAMIN (B-12) 500 MCG TABLET PO SCH (08:14)
[2022-02-07] MEDS: LIDOCAINE 5% 1 PATCH TD SCH (08:14)
[2022-02-07] MEDS: FERROUS SULFATE 325 MG TAB PO SCH (08:14)
[2022-02-07] MEDS: METOPROLOL SUCC 25MG EXT REL TAB PO SCH ×4 (08:14→20:33)
[2022-02-07] MEDS: FOLIC ACID 1 MG TAB PO SCH (08:14)
[2022-02-07] MEDS: POLYETHYLENE (MIRALAX) 17 GM PACK PO SCH (08:15)
[2022-02-07] MEDS: MULTIVITAMIN TAB PO SCH (08:15)
[2022-02-07] MEDS: oxyCODONE HCL IR 5 MG TAB (IMMEDIATE RELEASE) PO PRN ×2 (08:23→22:21)
[2022-02-07] MEDS: BACLOFEN 10 MG TAB PO SCH (08:24)
[2022-02-07] MEDS: MICONAZOLE NITRATE POWDER 43 GM EXT PRN (08:24)
[2022-02-07 09:51] LABS: BUN Creatinine Ratio 4.2 (10-20); Creatinine Clr Calc Pharmacy 17.1 ml/min; Est GFR (African American) 12.5 ml/min; Est GFR (Non-African American) 10.8 ml/min; Potassium 4.2 mmol/L (3.5-5.1)
[2022-02-07] MEDS: ONDANSETRON INJ 2 MG/ML 2 ML VIAL IV PRN (10:11)
--- NOTE | 2022-02-07 10:29 | Dialysis Progress Note ---
Date of Service February 07, 2022 Assessment & Plan Admission and Anticipated Discharge Date Admission Date: January 02, 2022 Subjective Subjective Assessment & Plan (1) Acute on chronic renal failure: Plan: Oligoanuric dialysis dependent ischemic ATN after several days of AF/F, tachycardia, and hypotension and with pre-existing cardiorenal syndrome. Baseline creatinine is somewhat labile but runs generally to high ones. Her creatinine at d/c on 12/25 was 1.4; was 2 on admission 01/02. First day of dialysis January 10. Overall renal prognosis very poor; may need to revisit goals of care. She is aware for now may need LT dialysis and seems to accept this though we are still monitoring for recovery ( unlikely) Awaiting SNF placement in [facility]. >in [facility], would need HD at [facility] under care of Dr Diggs HD today--aim for 2 to 2.5 kilo. has lot of edema but BP low making it hard - Not much change in UOP Daily basic metabolic panel -Continue tid Midodrine (2) Electrolyte and fluid disorder: Plan: Profound volume overload\anasarca in the setting of lower blood pressures intermittently as low as the 80s to 90s systolic but HR now 80-110s. monitor for need need low sodium diet and fluid limit 1.2 L daily Strict intake and output to continue Subjective Seen in dialysis. Sleeping Comfortably. Looks weak and sleepy. No bob now. Urine out still very low. No major issues with Dialysis so far Review of Systems D Review of Systems: All other systems were reviewed and negative except as noted in HPI Physical Exam Physical Exam: Constitutional:I + well hydrated a nd + obese; no acu te distress Eyes: PERRL, conjunctiva e normal, anicteri c sclerae ENMT: external ear and n ose normal, oropha rynx normal Respiratory: normal respiratory effort; no respir atory distress Cardiovascular:I Rate/Rhythm: regul ar rate and regula r rhythm S1 S2 Gastrointestinal ( Abdomen): normal bowel sound s, soft, nontender , no hepatosplenom egaly Skin: Erythematous rash over trunk- resolv ing Neurologic: PERRL, EOMI, accom modation nl, no fa ce palsy, no dysar thria Psychiatric: A+Ox3, euthymic af fect Results & Data ([facility]) Vital Signs (Past 12 Hours) Vital Signs Temp Pulse Pulse Pulse Resp BP BP 02/07/22 10:20 90 85/67 L 02/07/22 10:00 127 H 91/61 L 02/07/22 09:40 94 H 84/62 L 02/07/22 09:32 117 H 87/58 L 02/07/22 09:25 36.2 C L 96 H 02/07/22 07:41 36.9 C 123 H 20 90/68 L 02/07/22 07:08 131 H 02/07/22 04:23 36.5 C 112 H 18 02/06/22 23:00 106 H 02/06/22 22:42 36.7 C 102 H 16 91/54 L BP Pulse Ox 02/07/22 10:20 02/07/22 10:00 02/07/22 09:40 02/07/22 09:32 02/07/22 09:25 02/07/22 07:41 98 02/07/22 07:08 02/07/22 04:23 107/68 97 02/06/22 23:00 02/06/22 22:42 97
--- NOTE | 2022-02-07 17:34 | Hospitalist Progress Note ---
Date of Service February 07, 2022 Assessment & Plan (1) History of noncompliance with medical treatment: (2) Congestive heart failure: (3) Leg edema: Plan: Patient is a 76 yr female with H/O DM II, hypothyroidism, hyperlipidemia, COPD, on chronic oxygen baseline 3 liters oxygen, sleep apnea not on CPAP - intolerant as per the patient, paroxysmal atrial fibrillation, cor pulmonale, chronic essential hypertension, morbid obesity, irritable bowel syndrome, stage III c hronic kidney disease, mixed stress and urge incontinence, chronic pain syndrome, TIA. Patient presented 01/01 to our ED with complaint of progressive fluid retention along with worsening shortness of breath, denies fever and aspiration, reports compliance with home medication. Of note, patient was recently discharged from hospital after being treated for respiratory failure secondary to COPD exacerbation secondary to COVID-19 infection to rehab and then transitioned to home 1 week ago [employer]. Acute Metabolic Encephalopathy -POA Likely multifactorial: Hypercarbia,Uremia, Hyponatremia, Medications H/O COPD and sleep apnea and intolerance to CPAP and/or BiPAP Chronic Oxygen dependency: 3L at rest and 4L with activity at baseline Continue dialysis as per Nephrology Titrate Oxygen to keep Sats 88-92% given H/O COPD Decrease Baclofen to 5mg daily Minimize Narcotic use as able. Hold for excess sedation Home oxycodone/OxyContin titrated down to 2.5 mg twice daily as needed Continue lidocaine patch Intolerance to BiPAP. Patient has chronic hypercapnia Patient will need sleep study as outpatient ABG showed hypercarbia but nocturnal oximetry showed desaturation less than 88% for 2 minutes 26 seconds Waiting for rehab placement Acute on chronic heart failure with preserved ejection fraction Possible cardiorenal syndrome Patient reports increasing bilateral lower extremity swelling prior to arrival --11/29 ECHO:Ejection fraction greater than 70%, hyperdynamic left ventricle with normal left ventricle size and normal left ventricular wall thickness. ? Med compliance Appreciate Cardiology, Nephrology Input Pt did not diuresis with IV Lasix . Continue with strict I's and O's, daily weights, fluid restriction Midodrine added for hypotension Volume status to be addressed with dialysis Permanent Catheter for HD placed on 01/10/22 Dialysis as per Nephrology Currently on dialysis Saturday Volume status slowly improving Had hemodialysis today Concern for HCAP UTI / CAUTI : Pt w/ bob at home (per patient after her last discharge), urine Cx +ve for ESBL UTI CXR: Concern for developing fibrosis versus infectious process CTAP and CT chest: Suggestive of post inflammatory fibrosis, urinary bladder wall thickening with perivesicular stranding/correlate with urinalysis. Patient started on ertapenem 01/02-->Meropenem 01/04. 01/04 MRSA negative. Completed antibiotic course STACY with CKD Baseline creatinine around 1.3-1.5 Cr 5.26>3.8>3.6>3.8 Appreciate nephrology recommendation on Dialysis currently Sleep apnea CPAP intolerant DM II ISS for now Monitor BGs Hypothyroidism Continue Levothyroxine H/O A. fib Afib RVR: Dofetilide discontinued Not on anticoagulation, Xarelto was stopped in past because of history of hematochezia Appreciate cardiology input and recommendation Continue amiodarone, metoprolol Also on midodrine for hypotension Needs follow-up with cardiology upon discharge Dysphagia Aspiration Precautions Speech Eval completed Diet as per speech COPD Sleep apnea Does not use any CPAP COPD remains stable Patient has declined Incruse Ellipta in the past, continue with home inhalers BiPAP as needed Chronic pain Patient reports multiple joint pains Minimize Narcotic use Voltaren Gel PRN--DCed due to rash Anemia of chronic disease: Baseline hemoglobin 7-8 Monitor CBC Continue with iron supplementation Received Epo, Venofer DVT Px: SCDs Re: hx of GIB Code Status DNI/DNR: as per my discussion with patient and family Disposition: SNF when arranged Admission and Anticipated Discharge Date Admission Date: January 02, 2022 Subjective Patient is seen and examined at bedside Had hemodialysis this morning during my encounter Lethargic intermittently Tachycardic intermittently on monitor States feeling better today No new complaints Denies any chest pain, shortness of breath Review of Systems Review of Systems: All systems reviewed & are unremarkable except as noted in Subjective Physical Exam Physical Exam: Physical Exam: Vitals signs as noted above General Appearance:Morbidly Obese, no apparent distress, ill appearing Head: normocephalic, Atraumatic Eyes: normal inspection, EOMI Neck: supple, Trachea midline Respiratory/Chest: Decreased breath sounds, basal crackles, No accessory muscle use Cardiovascular: S1, S2, No murmur Abdomen/GI:Soft, Non tender, Bowel sounds present Extremities/Musculoskeletal:normal inspection, B/L LE edema improved Neurologic/Psych:grossly no focal neurological deficits Skin: normal color, warm Results & Data Results & Data ([facility]) Vital Signs (Past 12 Hours) Vital Signs Temp Pulse Pulse Pulse Resp BP BP 02/07/22 16:45 36.4 C L 96 H 18 02/07/22 15:04 123 H 02/07/22 14:46 36.5 C 119 H 20 02/07/22 13:13 36.4 C L 02/07/22 13:00 108 H 104/63 02/07/22 12:40 90 97/40 L 02/07/22 12:20 127 H 102/62 02/07/22 12:00 116 H 94/62 L 02/07/22 11:40 94 H 97/46 L 02/07/22 11:30 113 H 82/56 L 02/07/22 11:20 91 H 78/47 L 02/07/22 11:00 109 H 88/39 L 02/07/22 10:40 92 H 127/55 L 02/07/22 10:20 90 85/67 L 02/07/22 10:00 127 H 91/61 L 02/07/22 09:40 94 H 84/62 L 02/07/22 09:32 117 H 87/58 L 02/07/22 09:25 36.2 C L 96 H 02/07/22 07:41 36.9 C 123 H 20 90/68 L 02/07/22 07:08 131 H BP Pulse Ox 02/07/22 16:45 71/56 L 98 02/07/22 15:04 02/07/22 14:46 87/61 L 100 02/07/22 13:13 94/47 L 02/07/22 13:00 02/07/22 12:40 02/07/22 12:20 02/07/22 12:00 02/07/22 11:40 02/07/22 11:30 02/07/22 11:20 02/07/22 11:00 02/07/22 10:40 02/07/22 10:20 02/07/22 10:00 02/07/22 09:40 02/07/22 09:32 02/07/22 09:25 02/07/22 07:41 98 02/07/22 07:08 Laboratory Results [facility] 02/07/22 08:54 Sodium 139 Potassium 4.2 Chloride 106 Carbon Dioxide 30 BUN 16 Creatinine 3.84 H D Glucose 128 H Calcium 8.0 L (1) Congestive heart failure Heart failure chronicity: acute Heart failure type: combined systolic and diastolic Qualified Code(s): I50.41 - Acute combined systolic (congestive) and diastolic (congestive) heart failure
[2022-02-07] MEDS: HEPARIN SOD (PORCINE) 1000 UNIT/ML IV SCH ×3 (19:10→19:16)
[2022-02-08] MEDS ORDERED: LORATADINE 10 MG TAB PO ONE (03:14)
[2022-02-08] MEDS: LEVOTHYROXINE SODIUM 125 MCG TABLET PO SCH (05:35)
[2022-02-08 07:45] LABS: Hematocrit (blood only) 35.2 % (37-47); Hemoglobin 9.9 g/dL (12.0-16.0); Mean Corpuscular Hemoglobin 27.5 pg (25-34); Mean Corpuscular Hgb Conc 28.1 g/dL (32-36); Mean Corpuscular Volume 97.8 fL (80-100); Mean Platelet Volume 10.1 fL (7.4-10.4); RDW Coefficient of Variation 24.1 % (11.5-14.5); RDW Standard Deviation 85.2 fL (36.4-46.3); White Blood Count 6.91 K/uL (4.8-10.8)
[2022-02-08 07:56] LABS: Platelet Count 96 K/uL (130-400); Platelet Estimate Decreased (Normal)
[2022-02-08 08:09] LABS: BUN Creatinine Ratio 3.6 (10-20); Calcium 7.8 mg/dl (8.5-10.1); Creatinine Clr Calc Pharmacy 22.4 ml/min; Est GFR (African American) 18.4 ml/min; Est GFR (Non-African American) 15.9 ml/min; Magnesium 1.8 mg/dl (1.7-2.4); Potassium 4.4 mmol/L (3.5-5.1)
[2022-02-08] MEDS: FERROUS SULFATE 325 MG TAB PO SCH (08:42)
[2022-02-08] MEDS: CYANOCOBALAMIN (B-12) 500 MCG TABLET PO SCH (08:42)
[2022-02-08] MEDS: ASCORBIC ACID 500 MG TAB PO SCH (08:42)
[2022-02-08] MEDS: MIDODRINE HCL 2.5 MG TAB PO SCH ×3 (08:43→17:19)
[2022-02-08] MEDS: FOLIC ACID 1 MG TAB PO SCH (08:43)
[2022-02-08] MEDS: AMIODARONE 200 MG TAB PO SCH (08:43)
[2022-02-08] MEDS: LIDOCAINE 5% 1 PATCH TD SCH (08:43)
[2022-02-08] MEDS: MULTIVITAMIN TAB PO SCH (08:43)
[2022-02-08] MEDS: METOPROLOL SUCC 25MG EXT REL TAB PO SCH ×4 (08:43→21:02)
[2022-02-08] MEDS: POLYETHYLENE (MIRALAX) 17 GM PACK PO SCH (08:44)
[2022-02-08] MEDS: BACLOFEN 10 MG TAB PO SCH (08:50)
--- NOTE | 2022-02-08 18:04 | Hospitalist Progress Note ---
Date of Service February 08, 2022 Assessment & Plan (1) History of noncompliance with medical treatment: (2) Congestive heart failure: (3) Leg edema: Plan: Patient is a 76 yr female with H/O DM II, hypothyroidism, hyperlipidemia, COPD, on chronic oxygen baseline 3 liters oxygen, sleep apnea not on CPAP - intolerant as per the patient, paroxysmal atrial fibrillation, cor pulmonale, chronic essential hypertension, morbid obesity, irritable bowel syndrome, stage III c hronic kidney disease, mixed stress and urge incontinence, chronic pain syndrome, TIA. Patient presented 01/01 to our ED with complaint of progressive fluid retention along with worsening shortness of breath, denies fever and aspiration, reports compliance with home medication. Of note, patient was recently discharged from hospital after being treated for respiratory failure secondary to COPD exacerbation secondary to COVID-19 infection to rehab and then transitioned to home 1 week ago [employer]. Acute Metabolic Encephalopathy -POA Likely multifactorial: Hypercarbia,Uremia, Hyponatremia, Medications H/O COPD and sleep apnea and intolerance to CPAP and/or BiPAP Chronic Oxygen dependency: 3L at rest and 4L with activity at baseline Continue dialysis as per Nephrology Titrate Oxygen to keep Sats 88-92% given H/O COPD Decrease Baclofen to 5mg daily Minimize Narcotic use as able. Hold for excess sedation Home oxycodone/OxyContin titrated down to 2.5 mg twice daily as needed Continue lidocaine patch Intolerance to BiPAP. Patient has chronic hypercapnia Patient will need sleep study as outpatient ABG showed hypercarbia but nocturnal oximetry showed desaturation less than 88% for 2 minutes 26 seconds Denied by LTAC Waiting for placement Acute on chronic heart failure with preserved ejection fraction Possible cardiorenal syndrome Patient reports increasing bilateral lower extremity swelling prior to arrival --11/29 ECHO:Ejection fraction greater than 70%, hyperdynamic left ventricle with normal left ventricle size and normal left ventricular wall thickness. ? Med compliance Appreciate Cardiology, Nephrology Input Pt did not diuresis with IV Lasix . Continue with strict I's and O's, daily weights, fluid restriction Midodrine added for hypotension Volume status to be addressed with dialysis Permanent Catheter for HD placed on 01/10/22 Dialysis as per Nephrology Currently on dialysis Saturday Volume status slowly improving Next Hemodialysis tomorrow Concern for HCAP UTI / CAUTI : Pt w/ bob at home (per patient after her last discharge), urine Cx +ve for ESBL UTI CXR: Concern for developing fibrosis versus infectious process CTAP and CT chest: Suggestive of post inflammatory fibrosis, urinary bladder wall thickening with perivesicular stranding/correlate with urinalysis. Patient started on ertapenem 01/02-->Meropenem 01/04. 01/04 MRSA negative. Completed antibiotic course STACY with CKD Baseline creatinine around 1.3-1.5 Cr 5.26>3.8>3.6>2.8 Appreciate nephrology recommendation on Dialysis currently Sleep apnea CPAP intolerant DM II ISS for now Monitor BGs Hypothyroidism Continue Levothyroxine H/O A. fib Afib RVR: Dofetilide discontinued Not on anticoagulation, Xarelto was stopped in past because of history of hematochezia Appreciate cardiology input and recommendation Continue amiodarone, metoprolol Also on midodrine for hypotension Needs follow-up with cardiology upon discharge Dysphagia Aspiration Precautions Speech Eval completed Diet as per speech COPD Sleep apnea Does not use any CPAP COPD remains stable Patient has declined Incruse Ellipta in the past, continue with home inhalers BiPAP as needed Chronic pain Patient reports multiple joint pains Minimize Narcotic use Voltaren Gel PRN--DCed due to rash Anemia of chronic disease: Baseline hemoglobin 7-8 Monitor CBC Continue with iron supplementation Received Epo, Venofer DVT Px: SCDs Re: hx of GIB Code Status DNI/DNR: as per my discussion with patient and family Disposition: SNF when arranged Admission and Anticipated Discharge Date Admission Date: January 02, 2022 Subjective Patient is seen and examined at bedside States having and back pain No other complaints Denied for LTAC placement Denies any chest pain, shortness of breath, dizziness Review of Systems Review of Systems: All systems reviewed & are unremarkable except as noted in Subjective Physical Exam Physical Exam: Physical Exam: Vitals signs as noted above General Appearance:Morbidly Obese, no apparent distress, ill appearing Head: normocephalic, Atraumatic Eyes: normal inspection, EOMI Neck: supple, Trachea midline Respiratory/Chest: Decreased breath sounds, basal crackles, No accessory muscle use Cardiovascular: S1, S2, No murmur Abdomen/GI:Soft, Non tender, Bowel sounds present Extremities/Musculoskeletal:normal inspection, B/L LE edema improved Neurologic/Psych:grossly no focal neurological deficits Skin: normal color, warm Results & Data Results & Data ([facility]) Vital Signs (Past 12 Hours) Vital Signs Temp Pulse Pulse Resp BP Pulse Ox 02/08/22 14:28 36.3 C L 102 H 20 94/58 L 98 02/08/22 11:20 36.3 C L 102 H 20 85/57 L 98 02/08/22 07:43 36.1 C L 94 H 18 97/63 L 98 02/08/22 07:08 116 H Laboratory Results Short CBC 02/08/22 Range/Units 07:10 WBC 6.91 (4.8-10.8) K/uL Hgb 9.9 L (12.0-16.0) g/dL Hct 35.2 L (37-47) % Plt Count 96 L (130-400) K/uL BMP 02/08/22 07:10 Sodium 136 Potassium 4.4 Chloride 103 Carbon Dioxide 28 BUN 10 Creatinine 2.80 H D Glucose 109 H Calcium 7.8 L (1) Congestive heart failure Heart failure chronicity: acute Heart failure type: combined systolic and diastolic Qualified Code(s): I50.41 - Acute combined systolic (congestive) and diastolic (congestive) heart failure
[2022-02-08] MEDS: ACETAMINOPHEN 325 MG TAB PO PRN (21:02)
[2022-02-09] MEDS: LEVOTHYROXINE SODIUM 125 MCG TABLET PO SCH (06:11)
[2022-02-09] MEDS ORDERED: SODIUM CHLORIDE 0.9% 1000ML 1,000 ML IV PRN (07:00)
[2022-02-09] MEDS ORDERED: HEPARIN SOD (PORCINE) 1000 UNIT/ML IV SCH (07:00)
[2022-02-09 07:54] LABS: Calcium 7.9 mg/dl (8.5-10.1); Creatinine Clr Calc Pharmacy 17.7 ml/min; Est GFR (Non-African American) 12.1 ml/min; Potassium 4.3 mmol/L (3.5-5.1)
[2022-02-09] MEDS: POLYETHYLENE (MIRALAX) 17 GM PACK PO SCH (08:24)
[2022-02-09] MEDS: METOPROLOL SUCC 25MG EXT REL TAB PO SCH ×4 (08:25→20:35)
[2022-02-09] MEDS: AMIODARONE 200 MG TAB PO SCH (08:25)
[2022-02-09] MEDS: MULTIVITAMIN TAB PO SCH (08:25)
[2022-02-09] MEDS: FERROUS SULFATE 325 MG TAB PO SCH (08:25)
[2022-02-09] MEDS: CYANOCOBALAMIN (B-12) 500 MCG TABLET PO SCH (08:25)
[2022-02-09] MEDS: ASCORBIC ACID 500 MG TAB PO SCH (08:25)
[2022-02-09] MEDS: LIDOCAINE 5% 1 PATCH TD SCH (08:25)
[2022-02-09] MEDS: FOLIC ACID 1 MG TAB PO SCH (08:26)
[2022-02-09] MEDS: MIDODRINE HCL 2.5 MG TAB PO SCH ×3 (08:26→16:57)
[2022-02-09] MEDS: BACLOFEN 10 MG TAB PO SCH (08:26)
--- NOTE | 2022-02-09 09:53 | Dialysis Progress Note ---
Date of Service February 09, 2022 Assessment & Plan Admission and Anticipated Discharge Date Admission Date: January 02, 2022 Subjective Assessment & Plan (1) Acute on chronic renal failure: Plan: Oligoanuric dialysis dependent ischemic ATN after several days of AF/F, tachycardia, and hypotension and with pre-existing cardiorenal syndrome. Baseline creatinine is somewhat labile but runs generally to high ones. Her creatinine at d/c on 12/25 was 1.4; was 2 on admission 01/02. First day of dialysis January 10. Overall renal prognosis very poor; may need to revisit goals of care. She is aware for now may need LT dialysis and seems to accept this though we are still monitoring for recovery ( unlikely) Awaiting SNF placement in [facility]. >in [facility], would need HD at [facility] under care of Dr Diggs HD today--aim for 1.5 to 2 kilo. has lot of edema but BP low making it hard - Not much change in UOP Daily basic metabolic panel -Continue tid Midodrine (2) Electrolyte and fluid disorder: Plan: Profound volume overload\anasarca in the setting of lower blood pressures intermittently as low as the 80s to 90s systolic but HR now 80-110s. monitor for need need low sodium diet and fluid limit 1.2 L daily Strict intake and output to continue Subjective Seen in dialysis. Sleeping Comfortably. Looks weak and sleepy. Urine out still very low. BP is always low and causes problem with UF Review of Systems Review of Systems: All other systems were reviewed and negative except as noted in HPI Physical Exam Physical Exam: Constitutional:I + well hydrated a nd + obese; no acu te distress Eyes: PERRL, conjunctiva e normal, anicteri c sclerae ENMT: external ear and n ose normal, oropha rynx normal Respiratory: normal respiratory effort; no respir atory distress Cardiovascular:I Rate/Rhythm: regul ar rate and regula r rhythm S1 S2 Gastrointestinal ( Abdomen): normal bowel sound s, soft, nontender , no hepatosplenom egaly Skin: Erythematous rash over trunk- resolv ing Neurologic: PERRL, EOMI, accom modation nl, no fa ce palsy, no dysar thria Psychiatric: A+Ox3, euthymic af fect Results & Data ([facility]) Vital Signs (Past 12 Hours) Vital Signs Temp Pulse Pulse Pulse Resp BP Pulse Ox 02/09/22 07:59 36.4 C L 112 H 20 99/63 L 98 02/08/22 23:00 110 H 02/08/22 22:45 36.4 C L 101 H 18 98/61 L 98
[2022-02-09] MEDS: ACETAMINOPHEN 325 MG TAB PO PRN ×2 (11:11→20:36)
[2022-02-09] MEDS ORDERED: traMADol HCL 50 MG TABLET PO ONE (11:22)
[2022-02-09] MEDS: HEPARIN SOD (PORCINE) 1000 UNIT/ML IV SCH ×2 (13:44→13:45)
--- NOTE | 2022-02-09 16:26 | Hospitalist Progress Note ---
Date of Service February 09, 2022 Assessment & Plan (1) History of noncompliance with medical treatment: (2) Congestive heart failure: (3) Leg edema: Plan: Patient is a 76 yr female with H/O DM II, hypothyroidism, hyperlipidemia, COPD, on chronic oxygen baseline 3 liters oxygen, sleep apnea not on CPAP - intolerant as per the patient, paroxysmal atrial fibrillation, cor pulmonale, chronic essential hypertension, morbid obesity, irritable bowel syndrome, stage III c hronic kidney disease, mixed stress and urge incontinence, chronic pain syndrome, TIA. Patient presented 01/01 to our ED with complaint of progressive fluid retention along with worsening shortness of breath, denies fever and aspiration, reports compliance with home medication. 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 Acute Metabolic Encephalopathy -POA Likely multifactorial: Hypercarbia,Uremia, Hyponatremia, Medications H/O COPD and sleep apnea and intolerance to CPAP and/or BiPAP Chronic Oxygen dependency: 3L at rest and 4L with activity at baseline Continue dialysis as per Nephrology Titrate Oxygen to keep Sats 88-92% given H/O COPD Decrease Baclofen to 5mg daily Minimize Narcotic use as able. Hold for excess sedation Home oxycodone/OxyContin titrated down to 2.5 mg twice daily as needed Continue lidocaine patch Intolerance to BiPAP. Patient has chronic hypercapnia Patient will need sleep study as outpatient ABG showed hypercarbia but nocturnal oximetry showed desaturation less than 88% for 2 minutes 26 seconds Denied by LTAC Waiting for placement Acute on chronic heart failure with preserved ejection fraction Possible cardiorenal syndrome Patient reports increasing bilateral lower extremity swelling prior to arrival --11/29 ECHO:Ejection fraction greater than 70%, hyperdynamic left ventricle with normal left ventricle size and normal left ventricular wall thickness. ? Med compliance Appreciate Cardiology, Nephrology Input Pt did not diuresis with IV Lasix . Continue with strict I's and O's, daily weights, fluid restriction Midodrine added for hypotension Volume status to be addressed with dialysis Permanent Catheter for HD placed on 01/10/22 Dialysis as per Nephrology Currently on dialysis Saturday Volume status slowly improving Had Hemodialysis today Concern for HCAP UTI / CAUTI : Pt w/ bob at home (per patient after her last discharge), urine Cx +ve for ESBL UTI CXR: Concern for developing fibrosis versus infectious process CTAP and CT chest: Suggestive of post inflammatory fibrosis, urinary bladder wall thickening with perivesicular stranding/correlate with urinalysis. Patient started on ertapenem 01/02-->Meropenem 01/04. 01/04 MRSA negative. Completed antibiotic course STACY with CKD Baseline creatinine around 1.3-1.5 Cr 5.26>3.8>3.6>2.8 Appreciate nephrology recommendation on Dialysis currently Sleep apnea CPAP intolerant DM II ISS for now Monitor BGs Hypothyroidism Continue Levothyroxine H/O A. fib Afib RVR: Dofetilide discontinued Not on anticoagulation, Xarelto was stopped in past because of history of hematochezia Appreciate cardiology input and recommendation Continue amiodarone, metoprolol Also on midodrine for hypotension Needs follow-up with cardiology upon discharge HR uncontrolled today Dysphagia Aspiration Precautions Speech Eval completed Diet as per speech COPD Sleep apnea Does not use any CPAP COPD remains stable Patient has declined Incruse Ellipta in the past, continue with home inhalers BiPAP as needed Chronic pain Patient reports multiple joint pains Minimize Narcotic use Voltaren Gel PRN--DCed due to rash Anemia of chronic disease: Baseline hemoglobin 7-8 Monitor CBC Continue with iron supplementation Received Epo, Venofer DVT Px: SCDs Re: hx of GIB Code Status DNI/DNR: as per my discussion with patient and family Disposition: SNF when arranged Admission and Anticipated Discharge Date Admission Date: January 02, 2022 Subjective Patient is seen and examined at bedside Having HD during my encounter Reports back pain Also had an episode of vomiting this AM Denies any chest pain, shortness of breath, dizziness Review of Systems Review of Systems: All systems reviewed & are unremarkable except as noted in Subjective Physical Exam Physical Exam: Physical Exam: Vitals signs as noted above General Appearance:Morbidly Obese, no apparent distress, ill appearing Head: normocephalic, Atraumatic Eyes: normal inspection, EOMI Neck: supple, Trachea midline Respiratory/Chest: Decreased breath sounds, basal crackles, No accessory muscle use Cardiovascular: S1, S2, No murmur Abdomen/GI:Soft, Non tender, Bowel sounds present Extremities/Musculoskeletal:normal inspection, B/L LE edema improved Neurologic/Psych:grossly no focal neurological deficits Skin: normal color, warm Results & Data Results & Data ([facility]) Vital Signs (Past 12 Hours) Vital Signs Temp Pulse Pulse Pulse Pulse Resp BP 02/09/22 15:25 122 H 02/09/22 14:49 36.3 C L 111 H 18 02/09/22 13:15 36.7 C 122 H 02/09/22 13:11 95 H 82/56 L 02/09/22 13:00 139 H 88/54 L 02/09/22 12:40 139 H 93/53 L 02/09/22 12:20 139 H 80/48 L 02/09/22 12:18 36.3 C L 81 16 02/09/22 12:00 129 H 74/38 L 02/09/22 11:40 136 H 79/56 L 02/09/22 11:20 81 86/47 L 02/09/22 11:00 135 H 94/52 L 02/09/22 10:40 132 H 87/61 L 02/09/22 10:20 127 H 82/47 L 02/09/22 10:00 103 H 108/69 02/09/22 09:40 83 81/53 L 02/09/22 09:38 117 H 83/57 L 02/09/22 09:28 36.3 C L 83 84 02/09/22 07:59 36.4 C L 112 H 20 BP BP Pulse Ox 02/09/22 15:25 02/09/22 14:49 92/52 L 98 02/09/22 13:15 83/58 L 02/09/22 13:11 02/09/22 13:00 02/09/22 12:40 02/09/22 12:20 02/09/22 12:18 86/47 L 97 02/09/22 12:00 02/09/22 11:40 02/09/22 11:20 02/09/22 11:00 02/09/22 10:40 02/09/22 10:20 02/09/22 10:00 02/09/22 09:40 02/09/22 09:38 02/09/22 09:28 02/09/22 07:59 99/63 L 98 Laboratory Results [facility] 02/09/22 06:39 Sodium 137 Potassium 4.3 Chloride 104 Carbon Dioxide 29 BUN 14 Creatinine 3.50 H D Glucose 77 Calcium 7.9 L (1) Congestive heart failure Heart failure chronicity: acute Heart failure type: combined systolic and diastolic Qualified Code(s): I50.41 - Acute combined systolic (congestive) and diastolic (congestive) heart failure
[2022-02-09] MEDS: ONDANSETRON INJ 2 MG/ML 2 ML VIAL IV PRN ×2 (17:23→20:35)
[2022-02-09] MEDS ORDERED: ACETAMINOPHEN W/CODEINE #3 1 TAB PO ONE (22:32)
[2022-02-10] MEDS: LEVOTHYROXINE SODIUM 125 MCG TABLET PO SCH (05:58)
[2022-02-10 06:18] LABS: Hematocrit (blood only) 32.5 % (37-47); Hemoglobin 9.5 g/dL (12.0-16.0); Mean Corpuscular Hemoglobin 28.4 pg (25-34); Mean Corpuscular Hgb Conc 29.2 g/dL (32-36); Mean Platelet Volume 9.2 fL (7.4-10.4); Platelet Count 108 K/uL (130-400); Red Blood Count 3.35 M/uL (4.2-5.4); White Blood Count 6.12 K/uL (4.8-10.8)
[2022-02-10 06:45] LABS: BUN Creatinine Ratio 3.4 (10-20); Calcium 7.7 mg/dl (8.5-10.1); Creatinine Clr Calc Pharmacy 23.7 ml/min; Est GFR (African American) 19.7 ml/min; Potassium 4.2 mmol/L (3.5-5.1)
[2022-02-10] MEDS: POLYETHYLENE (MIRALAX) 17 GM PACK PO SCH (08:24)
[2022-02-10] MEDS: LIDOCAINE 5% 1 PATCH TD SCH (08:24)
[2022-02-10] MEDS: ACETAMINOPHEN 325 MG TAB PO PRN ×3 (08:24→20:54)
[2022-02-10] MEDS: BACLOFEN 10 MG TAB PO SCH (08:24)
[2022-02-10] MEDS: MIDODRINE HCL 2.5 MG TAB PO SCH ×3 (08:25→16:45)
[2022-02-10] MEDS: AMIODARONE 200 MG TAB PO SCH (08:26)
[2022-02-10] MEDS: METOPROLOL SUCC 25MG EXT REL TAB PO SCH ×4 (08:26→20:54)
[2022-02-10] MEDS: ASCORBIC ACID 500 MG TAB PO SCH (08:27)
[2022-02-10] MEDS: FOLIC ACID 1 MG TAB PO SCH (08:27)
[2022-02-10] MEDS: CYANOCOBALAMIN (B-12) 500 MCG TABLET PO SCH (08:28)
[2022-02-10] MEDS: MULTIVITAMIN TAB PO SCH (08:28)
[2022-02-10] MEDS: FERROUS SULFATE 325 MG TAB PO SCH (09:56)
--- NOTE | 2022-02-10 14:22 | Hospitalist Progress Note ---
Date of Service February 10, 2022 Assessment & Plan (1) History of noncompliance with medical treatment: (2) Congestive heart failure: (3) Leg edema: Plan: Patient is a 76 yr female with H/O DM II, hypothyroidism, hyperlipidemia, COPD, on chronic oxygen baseline 3 liters oxygen, sleep apnea not on CPAP - intolerant as per the patient, paroxysmal atrial fibrillation, cor pulmonale, chronic essential hypertension, morbid obesity, irritable bowel syndrome, stage III c hronic kidney disease, mixed stress and urge incontinence, chronic pain syndrome, TIA. Patient presented 01/01 to our ED with complaint of progressive fluid retention along with worsening shortness of breath, denies fever and aspiration, reports compliance with home medication. 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 Acute Metabolic Encephalopathy -POA Likely multifactorial: Hypercarbia,Uremia, Hyponatremia, Medications H/O COPD and sleep apnea and intolerance to CPAP and/or BiPAP Chronic Oxygen dependency: 3L at rest and 4L with activity at baseline Continue dialysis as per Nephrology Titrate Oxygen to keep Sats 88-92% given H/O COPD Decrease Baclofen to 5mg daily Minimize Narcotic use as able. Hold for excess sedation Home oxycodone/OxyContin titrated down to 2.5 mg twice daily and then discontin ued Continue lidocaine patch Intolerance to BiPAP. Patient has chronic hypercapnia Patient will need sleep study as outpatient ABG showed hypercarbia but nocturnal oximetry showed desaturation less than 88% for 2 minutes 26 seconds Denied by LTAC Waiting for placement Acute on chronic heart failure with preserved ejection fraction Possible cardiorenal syndrome Patient reports increasing bilateral lower extremity swelling prior to arrival --11/29 ECHO:Ejection fraction greater than 70%, hyperdynamic left ventricle with normal left ventricle size and normal left ventricular wall thickness. ? Med compliance Appreciate Cardiology, Nephrology Input Pt did not diuresis with IV Lasix . Continue with strict I's and O's, daily weights, fluid restriction Midodrine added for hypotension Volume status to be addressed with dialysis Permanent Catheter for HD placed on 01/10/22 Dialysis as per Nephrology Currently on dialysis Saturday Volume status slowly improving Hemodialysis as per Nephrology Concern for HCAP UTI / CAUTI : Pt w/ bob at home (per patient after her last discharge), urine Cx +ve for ESBL UTI CXR: Concern for developing fibrosis versus infectious process CTAP and CT chest: Suggestive of post inflammatory fibrosis, urinary bladder wall thickening with perivesicular stranding/correlate with urinalysis. Patient started on ertapenem 01/02-->Meropenem 01/04. 01/04 MRSA negative. Completed antibiotic course STACY with CKD Baseline creatinine around 1.3-1.5 Cr 5.26>3.8>3.6>2.8 Appreciate nephrology recommendation on Dialysis currently Sleep apnea CPAP intolerant DM II ISS for now Monitor BGs Hypothyroidism Continue Levothyroxine H/O A. fib Afib RVR: Dofetilide discontinued Not on anticoagulation, Xarelto was stopped in past because of history of hematochezia Appreciate cardiology input and recommendation Continue amiodarone, metoprolol Also on midodrine for hypotension Needs follow-up with cardiology upon discharge HR still high but asymptomatic Dysphagia Aspiration Precautions Speech Eval completed Diet as per speech COPD Sleep apnea Does not use any CPAP COPD remains stable Patient has declined Incruse Ellipta in the past, continue with home inhalers BiPAP as needed Chronic pain Patient reports multiple joint pains Minimize Narcotic use Voltaren Gel PRN--DCed due to rash Anemia of chronic disease: Baseline hemoglobin 7-8 Monitor CBC Continue with iron supplementation Received Epo, Venofer DVT Px: SCDs Re: hx of GIB Code Status DNI/DNR: as per my discussion with patient and family Disposition: SNF when arranged Admission and Anticipated Discharge Date Admission Date: January 02, 2022 Subjective Patient is seen and examined at bedside States feeling better today BP relatively low but asymptomatic Back pain is better Denies any chest pain, shortness of breath, dizziness Review of Systems Review of Systems: All systems reviewed & are unremarkable except as noted in Subjective Physical Exam Physical Exam: Physical Exam: Vitals signs as noted above General Appearance:Morbidly Obese, no apparent distress, ill appearing Head: normocephalic, Atraumatic Eyes: normal inspection, EOMI Neck: supple, Trachea midline Respiratory/Chest: Decreased breath sounds, CTA, No accessory muscle use Cardiovascular: S1, S2, No murmur Abdomen/GI:Soft, Non tender, Bowel sounds present Extremities/Musculoskeletal:normal inspection, B/L LE edema improved Neurologic/Psych:grossly no focal neurological deficits Skin: normal color, warm Results & Data Results & Data ([facility]) Vital Signs (Past 12 Hours) Vital Signs Temp Pulse Resp BP BP Pulse Ox 02/10/22 12:15 36.5 C 116 H 18 84/49 L 100 02/10/22 06:45 36.3 C L 118 H 18 82/48 L 99 02/10/22 03:11 36.4 C L 113 H 18 78/51 L 99 Laboratory Results Short CBC 02/10/22 Range/Units 05:46 WBC 6.12 (4.8-10.8) K/uL Hgb 9.5 L (12.0-16.0) g/dL Hct 32.5 L (37-47) % Plt Count 108 L (130-400) K/uL BMP 02/10/22 05:46 Sodium 136 Potassium 4.2 Chloride 103 Carbon Dioxide 32 BUN 9 Creatinine 2.64 H D Glucose 83 Calcium 7.7 L (1) Congestive heart failure Heart failure chronicity: acute Heart failure type: combined systolic and diastolic Qualified Code(s): I50.41 - Acute combined systolic (congestive) and diastolic (congestive) heart failure
[2022-02-10] MEDS: ONDANSETRON INJ 2 MG/ML 2 ML VIAL IV PRN (20:54)
[2022-02-11] MEDS: ACETAMINOPHEN 325 MG TAB PO PRN ×2 (05:42→20:19)
[2022-02-11] MEDS: LEVOTHYROXINE SODIUM 125 MCG TABLET PO SCH (05:45)
[2022-02-11] MEDS: ONDANSETRON INJ 2 MG/ML 2 ML VIAL IV PRN ×2 (08:06→23:05)
[2022-02-11] MEDS: BACLOFEN 10 MG TAB PO SCH (09:00)
[2022-02-11] MEDS: METOPROLOL SUCC 25MG EXT REL TAB PO SCH ×4 (10:29→20:54)
[2022-02-11] MEDS: MIDODRINE HCL 2.5 MG TAB PO SCH ×3 (10:30→17:42)
[2022-02-11] MEDS: ASCORBIC ACID 500 MG TAB PO SCH (10:31)
[2022-02-11] MEDS: CYANOCOBALAMIN (B-12) 500 MCG TABLET PO SCH (10:32)
[2022-02-11] MEDS: AMIODARONE 200 MG TAB PO SCH (10:33)
[2022-02-11] MEDS: FERROUS SULFATE 325 MG TAB PO SCH (10:33)
[2022-02-11] MEDS: FOLIC ACID 1 MG TAB PO SCH (10:33)
[2022-02-11] MEDS: LIDOCAINE 5% 1 PATCH TD SCH (10:34)
[2022-02-11] MEDS: MULTIVITAMIN TAB PO SCH (10:36)
--- NOTE | 2022-02-11 15:25 | Hospitalist Progress Note ---
Date of Service February 11, 2022 Assessment & Plan (1) History of noncompliance with medical treatment: (2) Congestive heart failure: (3) Leg edema: Plan: Patient is a 76 yr female with H/O DM II, hypothyroidism, hyperlipidemia, COPD, on chronic oxygen baseline 3 liters oxygen, sleep apnea not on CPAP - intolerant as per the patient, paroxysmal atrial fibrillation, cor pulmonale, chronic essential hypertension, morbid obesity, irritable bowel syndrome, stage III c hronic kidney disease, mixed stress and urge incontinence, chronic pain syndrome, TIA. Patient presented 01/01 to our ED with complaint of progressive fluid retention along with worsening shortness of breath, denies fever and aspiration, reports compliance with home medication. 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 Acute Metabolic Encephalopathy -POA Likely multifactorial: Hypercarbia,Uremia, Hyponatremia, Medications H/O COPD and sleep apnea and intolerance to CPAP and/or BiPAP Chronic Oxygen dependency: 3L at rest and 4L with activity at baseline Continue dialysis as per Nephrology Titrate Oxygen to keep Sats 88-92% given H/O COPD Decrease Baclofen to 5mg daily Minimize Narcotic use as able. Hold for excess sedation Home oxycodone/OxyContin titrated down to 2.5 mg twice daily and then discontin ued Continue lidocaine patch Intolerance to BiPAP. Patient has chronic hypercapnia Patient will need sleep study as outpatient ABG showed hypercarbia but nocturnal oximetry showed desaturation less than 88% for 2 minutes 26 seconds Denied by LTAC Waiting for placement Acute on chronic heart failure with preserved ejection fraction Possible cardiorenal syndrome Patient reports increasing bilateral lower extremity swelling prior to arrival --11/29 ECHO:Ejection fraction greater than 70%, hyperdynamic left ventricle with normal left ventricle size and normal left ventricular wall thickness. ? Med compliance Appreciate Cardiology, Nephrology Input Pt did not diuresis with IV Lasix . Continue with strict I's and O's, daily weights, fluid restriction Midodrine added for hypotension Volume status to be addressed with dialysis Permanent Catheter for HD placed on 01/10/22 Dialysis as per Nephrology Currently on dialysis Saturday Volume status slowly improving Next Hemodialysis tomorrow Concern for HCAP UTI / CAUTI : Pt w/ bob at home (per patient after her last discharge), urine Cx +ve for ESBL UTI CXR: Concern for developing fibrosis versus infectious process CTAP and CT chest: Suggestive of post inflammatory fibrosis, urinary bladder wall thickening with perivesicular stranding/correlate with urinalysis. Patient started on ertapenem 01/02-->Meropenem 01/04. 01/04 MRSA negative. Completed antibiotic course STACY with CKD Baseline creatinine around 1.3-1.5 Cr 5.26>3.8>3.6>2.8 Appreciate nephrology recommendation on Dialysis currently Sleep apnea CPAP intolerant DM II ISS for now Monitor BGs Hypothyroidism Continue Levothyroxine H/O A. fib Afib RVR: Dofetilide discontinued Not on anticoagulation, Xarelto was stopped in past because of history of hematochezia Appreciate cardiology input and recommendation Continue amiodarone, metoprolol Also on midodrine for hypotension Needs follow-up with cardiology upon discharge Intermittently Tachycardic Dysphagia Aspiration Precautions Speech Eval completed Diet as per speech COPD Sleep apnea Does not use any CPAP COPD remains stable Patient has declined Incruse Ellipta in the past, continue with home inhalers BiPAP as needed Chronic pain Patient reports multiple joint pains Minimize Narcotic use Voltaren Gel PRN--Discontinued due to rash Anemia of chronic disease: Baseline hemoglobin 7-8 Monitor CBC Continue with iron supplementation Received Epo, Venofer DVT Px: SCDs Re: hx of GIB Code Status DNI/DNR: as per my discussion with patient and family Disposition: SNF when arranged Admission and Anticipated Discharge Date Admission Date: January 02, 2022 Subjective Patient is seen and examined at bedside " I feel Sleepy today " No new complaints Tachycardic on Monitor Denies any chest pain, shortness of breath, dizziness No complaints Review of Systems Review of Systems: All systems reviewed & are unremarkable except as noted in Subjective Physical Exam Physical Exam: Physical Exam: Vitals signs as noted above General Appearance:Morbidly Obese, no apparent distress, ill appearing Head: normocephalic, Atraumatic Eyes: normal inspection, EOMI Neck: supple, Trachea midline Respiratory/Chest: Decreased breath sounds, CTA, No accessory muscle use Cardiovascular: S1, S2, No murmur, +Tachycardia Abdomen/GI:Soft, Non tender, Bowel sounds present Extremities/Musculoskeletal:normal inspection, B/L LE edema improved Neurologic/Psych:grossly no focal neurological deficits Skin: normal color, warm Results & Data Results & Data ([facility]) Vital Signs (Past 12 Hours) Vital Signs Temp Pulse Pulse Resp BP Pulse Ox 02/11/22 12:22 36.2 C L 124 H 18 109/77 98 02/11/22 07:39 36.1 C L 117 H 20 98/64 L 99 02/11/22 07:00 104 H (1) Congestive heart failure Heart failure chronicity: acute Heart failure type: combined systolic and diastolic Qualified Code(s): I50.41 - Acute combined systolic (congestive) and diastolic (congestive) heart failure
[2022-02-11] MEDS: POLYETHYLENE (MIRALAX) 17 GM PACK PO SCH (17:42)
[2022-02-12] MEDS: MIDODRINE HCL 2.5 MG TAB PO SCH ×3 (00:57→17:42)
[2022-02-12] MEDS: LEVALBUTEROL TARTRATE 15 GM HFA.AER.AD INH PRN (04:16)
[2022-02-12] MEDS: LEVOTHYROXINE SODIUM 125 MCG TABLET PO SCH ×2 (05:55→22:19)
[2022-02-12] MEDS ORDERED: SODIUM CHLORIDE 0.9% 1000ML 1,000 ML IV PRN (08:15)
[2022-02-12 08:28] LABS: Hematocrit (blood only) 33.1 % (37-47); Hemoglobin 9.5 g/dL (12.0-16.0); Mean Corpuscular Hgb Conc 28.7 g/dL (32-36); Mean Corpuscular Volume 97.6 fL (80-100); Mean Platelet Volume 9.2 fL (7.4-10.4); Platelet Count 163 K/uL (130-400); RDW Coefficient of Variation 23.4 % (11.5-14.5); RDW Standard Deviation 83.5 fL (36.4-46.3); Red Blood Count 3.39 M/uL (4.2-5.4); White Blood Count 8.05 K/uL (4.8-10.8)
[2022-02-12 08:41] LABS: Creatinine Clr Calc Pharmacy 16.3 ml/min; Est GFR (African American) 12.8 ml/min; Est GFR (Non-African American) 11.1 ml/min; Potassium 4.7 mmol/L (3.5-5.1)
[2022-02-12] MEDS ORDERED: HEPARIN SOD (PORCINE) 1000 UNIT/ML IV SCH (09:00)
[2022-02-12] MEDS ORDERED: ALBUMIN 25% 12.5 GM/50 ML VIAL IV SCH ×2 (09:00→12:00)
[2022-02-12] MEDS ORDERED: EPOETIN ALFA 10,000 UNITS/ML VIAL IV SCH (09:00)
[2022-02-12] MEDS: ASCORBIC ACID 500 MG TAB PO SCH (09:02)
[2022-02-12] MEDS: AMIODARONE 200 MG TAB PO SCH (09:02)
[2022-02-12] MEDS: MULTIVITAMIN TAB PO SCH (09:02)
[2022-02-12] MEDS: LIDOCAINE 5% 1 PATCH TD SCH (09:02)
[2022-02-12] MEDS: FOLIC ACID 1 MG TAB PO SCH (09:02)
[2022-02-12] MEDS: METOPROLOL SUCC 25MG EXT REL TAB PO SCH ×4 (09:03→22:19)
[2022-02-12] MEDS: FERROUS SULFATE 325 MG TAB PO SCH (09:04)
[2022-02-12] MEDS: CYANOCOBALAMIN (B-12) 500 MCG TABLET PO SCH (09:04)
[2022-02-12] MEDS: POLYETHYLENE (MIRALAX) 17 GM PACK PO SCH (09:13)
[2022-02-12 09:23] LABS: Iron 24 mcg/dl (35-150); Total Iron Binding Cap Calc 125 mcg/dl (250-450); Transferrin (FE) Percent Satur 19 % (15-50); Unsaturated Iron Binding Cap 101 mcg/dl (155-355)
[2022-02-12] MEDS: HEPARIN SOD (PORCINE) 1000 UNIT/ML IV SCH ×3 (10:58→14:45)
[2022-02-12] MEDS ORDERED: IRON SUCROSE 100 MG in SYRINGE 0 ML IV SCH (11:00)
--- NOTE | 2022-02-12 12:03 | Nephrology Progress Note ---
Date of Service February 12, 2022 Assessment & Plan (1) Acute on chronic renal failure: Plan: Anuric dialysis dependent ischemic ATN after several days of AF/F, tachycardia, and significant hypotension on midodrine and using albumin IV to support bp on txs and with pre-existing cardiorenal syndrome. Baseline creatinine is somewhat labile but runs generally to high ones. Her creatinine at d/c on 12/25 was 1.4; was 2 on admission 01/02. First day of dialysis January 10. She is dialysis dependent but very challenging to dialyse; may need to revisit goals of care. >her BP is very challenging >> so far needs dialysis on monitor with midodrine and with albumin > not sure how she will do >if she goes to [facility] in [facility], would need HD at [facility] under care of Dr Diggs -tolerated HD 01/29 with 1.7L UF; also tolerated 01/31 - for HD today, max UF 1.5L as hemodynamics tolerate - UOP not accurate/trackable d/t no bob; however would nto replace bob >> RN will help track where able Daily basic metabolic panel -Continue tid Midodrine >>>challenging placement issues longer term at least at this point it will be very difficult to dialyze her as an outpatient d/t hemodynamics/blood pressures > have asked d/c planning team to find out can we give IV albumin in ltach? can she dialyze on monitor there? Care coordinated w/ Dr El (2) Electrolyte and fluid disorder: Plan: improving volume overload\anasarca in the setting of lower blood pressures intermittently as low as the 70s to 90s systolic but HR now 80-110s. monitor for need need low sodium diet and fluid limit 1.2 L daily; so far diet limitations preclude this and she's done ok Strict intake and output to continu best we can -ordered CXR to assess fluid status Admission and Anticipated Discharge Date Admission Date: January 02, 2022 Subjective no interval events. bp remains quite soft and HR elevated. pt c/o marked back pain. also w/ soem confusion today telling me she's cutting txs Review of Systems Review of Systems: All systems reviewed & are unremarkable except as noted in Subjective Physical Exam Constitutional: well developed, + morbidly obese, + frail appearing and + edematous (improving further though still trace dependent); no acute distress Eyes: EOM intact bilaterally ENMT: Ears: no external ear abnormality Nose: no external nose abnormality Mouth: + dry oral mucous membranes Neck: no nuchal rigidity Respiratory: normal respiratory effort Auscultation: + diminished lung sounds Cardiovascular: Rate/Rhythm: regular rate and regular rhythm Extremities: + edema (trace BLE pretibial again less taut and 1++ hips/ dependent) Gastrointestinal (Abdomen): Inspection/Auscultation: normal bowel sounds Percussion/Palpation: abdomen soft; abdomen nontender Musculoskeletal: Extremities: + abnormal strength (Generalized weakness) Skin: no rashes, warm and dry Psychiatric: Orientation: oriented to person and oriented to place Insight: + limited insight Genitourinary: bob out Results & Data ([facility]) Vital Signs (Past 12 Hours) Vital Signs Temp Pulse Pulse Pulse Resp BP BP 02/12/22 10:40 80 81/54 L 02/12/22 10:20 97 H 75/55 L 02/12/22 10:04 96 H 93/68 L 02/12/22 09:51 36.7 C 114 H 02/12/22 09:23 112 H 18 79/41 L 02/12/22 07:50 36.3 C L 103 H 16 75/48 L 02/12/22 02:48 36.4 C L 100 H 19 83/53 L 02/11/22 23:58 90 Pulse Ox 02/12/22 10:40 02/12/22 10:20 02/12/22 10:04 02/12/22 09:51 02/12/22 09:23 02/12/22 07:50 96 02/12/22 02:48 99 02/11/22 23:58 Laboratory Results 02/12/22 08:02 02/12/22 08:02
[2022-02-12] MEDS: FAMOTIDINE 10 MG TABLET PO SCH ×2 (13:17→22:19)
[2022-02-12] MEDS: ONDANSETRON INJ 2 MG/ML 2 ML VIAL IV PRN (13:17)
--- NOTE | 2022-02-12 15:03 | XRay Report ---
XR chest 1V portable CLINICAL HISTORY: check volume status TECHNIQUE: Single frontal radiograph of the chest was obtained. Comparison: Comparison is made to chest one view 01/01/2022 FINDINGS: Dual lumen catheter on the right terminates in the mid SVC. Cardiomegaly is noted. Prominence and cep halization of the vasculature is seen. No evidence of pleural effusion or pneumothorax. IMPRESSION: Mild pulmonary edema. Previously noted multifocal airspace opacities have improved. ACT 112: Negative or not required by law. Electronically signed by: Chris Nugent M.D. 02/12/2022 3:02 PM
--- NOTE | 2022-02-12 16:39 | Hospitalist Progress Note ---
Date of Service February 12, 2022 Assessment & Plan (1) History of noncompliance with medical treatment: (2) Congestive heart failure: (3) Leg edema: Plan: Patient is a 76 yr female with H/O DM II, hypothyroidism, hyperlipidemia, COPD, on chronic oxygen baseline 3 liters oxygen, sleep apnea not on CPAP - intolerant as per the patient, paroxysmal atrial fibrillation, cor pulmonale, chronic essential hypertension, morbid obesity, irritable bowel syndrome, stage III c hronic kidney disease, mixed stress and urge incontinence, chronic pain syndrome, TIA. Patient presented 01/01 to our ED with complaint of progressive fluid retention along with worsening shortness of breath, denies fever and aspiration, reports compliance with home medication. 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 Acute Metabolic Encephalopathy -POA Likely multifactorial: Hypercarbia,Uremia, Hyponatremia, Medications H/O COPD and sleep apnea and intolerance to CPAP and/or BiPAP Chronic Oxygen dependency: 3L at rest and 4L with activity at baseline Continue dialysis as per Nephrology Titrate Oxygen to keep Sats 88-92% given H/O COPD Baclofen discontinued Avoid Narcotic use Home oxycodone/OxyContin titrated down to 2.5 mg twice daily and then discontinued Continue lidocaine patch Intolerance to BiPAP. Patient has chronic hypercapnia Patient will need sleep study as outpatient ABG showed hypercarbia but nocturnal oximetry showed desaturation less than 88% for 2 minutes 26 seconds Denied by LTAC Waiting for placement Acute on chronic heart failure with preserved ejection fraction Possible cardiorenal syndrome Patient reports increasing bilateral lower extremity swelling prior to arrival --11/29 ECHO:Ejection fraction greater than 70%, hyperdynamic left ventricle with normal left ventricle size and normal left ventricular wall thickness. ? Med compliance Appreciate Cardiology, Nephrology Input Pt did not diuresis with IV Lasix . Continue with strict I's and O's, daily weights, fluid restriction Midodrine added for hypotension Volume status to be addressed with dialysis Permanent Catheter for HD placed on 01/10/22 Dialysis as per Nephrology Currently on dialysis Saturday Had Hemodialuysis today Received IV albumin, EPO and Venofer today Concern for HCAP UTI / CAUTI : Pt w/ bob at home (per patient after her last discharge), urine Cx +ve for ESBL UTI CXR: Concern for developing fibrosis versus infectious process CTAP and CT chest: Suggestive of post inflammatory fibrosis, urinary bladder wall thickening with perivesicular stranding/correlate with urinalysis. Patient started on ertapenem 01/02-->Meropenem 01/04. 01/04 MRSA negative. Completed antibiotic course STACY with CKD Baseline creatinine around 1.3-1.5 Cr 5.26>3.8>3.6>2.8>3.7 Appreciate nephrology recommendation on Dialysis currently Sleep apnea CPAP intolerant DM II ISS for now Monitor BGs Hypothyroidism Continue Levothyroxine H/O A. fib Afib RVR: Dofetilide discontinued Not on anticoagulation, Xarelto was stopped in past because of history of hematochezia Appreciate cardiology input and recommendation Continue amiodarone, metoprolol Also on midodrine for hypotension Needs follow-up with cardiology upon discharge Intermittently Tachycardic Dysphagia Aspiration Precautions Speech Eval completed Diet as per speech COPD Sleep apnea Does not use any CPAP COPD remains stable Patient has declined Incruse Ellipta in the past, continue with home inhalers BiPAP as needed Chronic pain Patient reports multiple joint pains Narcotics discontinued Avoid Narcotic use Voltaren Gel PRN--Discontinued due to rash Anemia of chronic disease: Baseline hemoglobin 7-8 Monitor CBC Continue with iron supplementation Received Epo, Venofer DVT Px: SCDs Re: hx of GIB Code Status DNI/DNR: as per my discussion with patient and family Disposition: SNF when arranged Admission and Anticipated Discharge Date Admission Date: January 02, 2022 Subjective Patient is seen and examined at bedside Had HD today States having heartburn and nausea today Discussed with Nephrology today Denies any chest pain, shortness of breath, dizziness Received IV albumin, EPO and Venofer today Review of Systems Review of Systems: All systems reviewed & are unremarkable except as noted in Subjective Physical Exam Physical Exam: Physical Exam: Vitals signs as noted above General Appearance:Morbidly Obese, no apparent distress, ill appearing Head: normocephalic, Atraumatic Eyes: normal inspection, EOMI Neck: supple, Trachea midline Respiratory/Chest: Decreased breath sounds, CTA, No accessory muscle use Cardiovascular: S1, S2, No murmur, +Tachycardia Abdomen/GI:Soft, Non tender, Bowel sounds present Extremities/Musculoskeletal:normal inspection, B/L LE edema improved Neurologic/Psych:grossly no focal neurological deficits Skin: normal color, warm Results & Data Results & Data ([facility]) Vital Signs (Past 12 Hours) Vital Signs Temp Pulse Pulse Pulse Resp BP BP 02/12/22 16:01 36.5 C 93 H 16 75/45 L 02/12/22 13:39 36.6 C 95 H 90/54 L 02/12/22 13:30 88 87/57 L 02/12/22 13:20 94 H 83/55 L 02/12/22 13:00 86 79/52 L 02/12/22 12:40 87 84/59 L 02/12/22 12:20 89 97/53 L 02/12/22 12:00 93 H 83/52 L 02/12/22 11:40 71 88/57 L 02/12/22 11:20 96 H 76/55 L 02/12/22 11:00 95 H 85/55 L 02/12/22 10:40 80 81/54 L 02/12/22 10:20 97 H 75/55 L 02/12/22 10:04 96 H 93/68 L 02/12/22 09:51 36.7 C 114 H 02/12/22 09:23 112 H 18 79/41 L 02/12/22 07:50 36.3 C L 103 H 16 75/48 L Pulse Ox 02/12/22 16:01 98 02/12/22 13:39 02/12/22 13:30 02/12/22 13:20 02/12/22 13:00 02/12/22 12:40 02/12/22 12:20 02/12/22 12:00 02/12/22 11:40 02/12/22 11:20 02/12/22 11:00 02/12/22 10:40 02/12/22 10:20 02/12/22 10:04 02/12/22 09:51 02/12/22 09:23 02/12/22 07:50 96 Laboratory Results Short CBC 02/12/22 Range/Units 08:02 WBC 8.05 (4.8-10.8) K/uL Hgb 9.5 L (12.0-16.0) g/dL Hct 33.1 L (37-47) % Plt Count 163 (130-400) K/uL BMP 02/12/22 08:02 Sodium 135 L Potassium 4.7 Chloride 101 Carbon Dioxide 30 BUN 15 Creatinine 3.77 H Glucose 103 H Calcium 8.0 L (1) Congestive heart failure Heart failure chronicity: acute Heart failure type: combined systolic and diastolic Qualified Code(s): I50.41 - Acute combined systolic (congestive) and diastolic (congestive) heart failure
[2022-02-12] MEDS: ACETAMINOPHEN 325 MG TAB PO PRN (22:34)
[2022-02-13] MEDS: ACETAMINOPHEN 325 MG TAB PO PRN ×2 (04:54→16:08)
[2022-02-13] MEDS: LIDOCAINE 5% 1 PATCH TD SCH (09:27)
[2022-02-13] MEDS: POLYETHYLENE (MIRALAX) 17 GM PACK PO SCH (09:27)
[2022-02-13] MEDS: FAMOTIDINE 10 MG TABLET PO SCH ×2 (09:28→21:45)
[2022-02-13] MEDS: FOLIC ACID 1 MG TAB PO SCH (09:28)
[2022-02-13] MEDS: CYANOCOBALAMIN (B-12) 500 MCG TABLET PO SCH (09:28)
[2022-02-13] MEDS: MULTIVITAMIN TAB PO SCH (09:28)
[2022-02-13] MEDS: METOPROLOL SUCC 25MG EXT REL TAB PO SCH ×4 (09:28→21:45)
[2022-02-13] MEDS: ASCORBIC ACID 500 MG TAB PO SCH (09:29)
[2022-02-13] MEDS: FERROUS SULFATE 325 MG TAB PO SCH (09:29)
[2022-02-13] MEDS: MIDODRINE HCL 2.5 MG TAB PO SCH (09:30)
[2022-02-13] MEDS: AMIODARONE 200 MG TAB PO SCH (09:30)
[2022-02-13] MEDS: MIDODRINE HCL 10 MG TAB PO SCH ×2 (12:08→16:11)
--- NOTE | 2022-02-13 12:34 | Nephrology Progress Note ---
Date of Service February 13, 2022 Assessment & Plan (1) Acute on chronic renal failure: Plan: Anuric dialysis dependent ischemic ATN after several days of AF/F, tachycardia, and significant hypotension on midodrine and using albumin IV to support bp on txs and with pre-existing cardiorenal syndrome. Baseline creatinine is somewhat labile but runs generally to high ones. Her creatinine at d/c on 12/25 was 1.4; was 2 on admission 01/02. First day of dialysis January 10. She is dialysis dependent but very challenging to dialyse; may need to revisit goals of care. >her BP is very challenging >> so far needs dialysis on monitor with midodrine and with albumin > not sure how she will do >if she goes to in [facility], would need HD at [facility] under care of Dr Diggs - for HD tomorrow, max UF 1.5L as hemodynamics tolerate Daily basic metabolic panel -Continue tid Midodrine >>>challenging placement issues longer term at least at this point it will be very difficult to dialyze her as an outpatient d/t hemodynamics/blood pressures > have asked d/c planning team to find out can we give IV albumin in ltach? can she dialyze on monitor there? >OK to intensify bowel regimen > but avoid fleets; prune juice OK for her (2) Electrolyte and fluid disorder: Plan: improving volume overload\\anasarca in the setting of lower blood pressures intermittently as low as the 70s to 90s systolic but HR now 80-110s. monitor for need need low sodium diet and fluid limit 1.2 L daily; so far diet limitations preclude this and she's done ok Strict intake and output to continu best we can -ordered CXR to assess fluid status 02/12 > shows mild plm edema but overall improved Admission and Anticipated Discharge Date Admission Date: January 02, 2022 Subjective tolerated 1.5L UF yesterday. today c/o ongoing constipation. states "I'm miserable" Review of Systems Review of Systems: All systems reviewed & are unremarkable except as noted in Subjective Physical Exam Constitutional: well developed, + morbidly obese, + frail appearing and + edematous (dependent); no acute distress Eyes: EOM intact bilaterally ENMT: Ears: no external ear abnormality Nose: no external nose abnormality Mouth: + dry oral mucous membranes Neck: no nuchal rigidity Respiratory: normal respiratory effort Auscultation: + diminished lung sounds Cardiovascular: Rate/Rhythm: + irregularly irregular Extremities: + edema (trace BLE pretibial again less taut and 1++ hips/ dependent) Gastrointestinal (Abdomen): Inspection/Auscultation: normal bowel sounds Percussion/Palpation: abdomen soft; abdomen nontender Musculoskeletal: Extremities: + abnormal strength (Generalized weakness) Skin: no rashes, warm and dry Neurologic: tired, miranda, fluent speech but confused slightly Psychiatric: Orientation: oriented to person and oriented to place Insight: + limited insight Results & Data ([facility]) Vital Signs (Past 12 Hours) Vital Signs Temp Pulse Pulse Pulse Resp BP Pulse Ox 02/13/22 10:55 36.4 C L 98 H 20 87/60 L 97 02/13/22 08:02 36.3 C L 95 H 20 75/52 L 97 02/13/22 07:20 107 H 02/13/22 03:13 36.4 C L 103 H 16 77/43 L 99 Laboratory Results 02/12/22 08:02 02/12/22 08:02
--- NOTE | 2022-02-13 17:34 | Hospitalist Progress Note ---
Date of Service February 13, 2022 Assessment & Plan (1) History of noncompliance with medical treatment: (2) Congestive heart failure: (3) Leg edema: Plan: Patient is a 76 yr female with H/O DM II, hypothyroidism, hyperlipidemia, COPD, on chronic oxygen baseline 3 liters oxygen, sleep apnea not on CPAP - intolerant as per the patient, paroxysmal atrial fibrillation, cor pulmonale, chronic essential hypertension, morbid obesity, irritable bowel syndrome, stage III c hronic kidney disease, mixed stress and urge incontinence, chronic pain syndrome, TIA. Patient presented 01/01 to our ED with complaint of progressive fluid retention along with worsening shortness of breath, denies fever and aspiration, reports compliance with home medication. 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 Acute Metabolic Encephalopathy -POA Likely multifactorial: Hypercarbia,Uremia, Hyponatremia, Medications H/O COPD and sleep apnea and intolerance to CPAP and/or BiPAP Chronic Oxygen dependency: 3L at rest and 4L with activity at baseline Continue dialysis as per Nephrology Titrate Oxygen to keep Sats 88-92% given H/O COPD Baclofen discontinued Avoid Narcotic use Home oxycodone/OxyContin titrated down to 2.5 mg twice daily and then discontinued Continue lidocaine patch Intolerance to BiPAP. Patient has chronic hypercapnia Patient will need sleep study as outpatient ABG showed hypercarbia but nocturnal oximetry showed desaturation less than 88% for 2 minutes 26 seconds Denied by LTAC. Patient needs complex management given hemodynamic instability. Will need LTAC placement. Waiting for placement Acute on chronic heart failure with preserved ejection fraction Possible cardiorenal syndrome Patient reports increasing bilateral lower extremity swelling prior to arrival --11/29 ECHO:Ejection fraction greater than 70%, hyperdynamic left ventricle with normal left ventricle size and normal left ventricular wall thickness. ? Med compliance Appreciate Cardiology, Nephrology Input Pt did not diuresis with IV Lasix . Continue with strict I's and O's, daily weights, fluid restriction Midodrine added for hypotension Volume status to be addressed with dialysis Permanent Catheter for HD placed on 01/10/22 Dialysis as per Nephrology Currently on dialysis Saturday Received IV albumin, EPO and Venofer yesterday Increase midodrine to 10 mg 3 times daily given low blood pressure Concern for HCAP UTI / CAUTI : Pt w/ bob at home (per patient after her last discharge), urine Cx +ve for ESBL UTI CXR: Concern for developing fibrosis versus infectious process CTAP and CT chest: Suggestive of post inflammatory fibrosis, urinary bladder wall thickening with perivesicular stranding/correlate with urinalysis. Patient started on ertapenem 01/02-->Meropenem 01/04. 01/04 MRSA negative. Completed antibiotic course STACY with CKD Baseline creatinine around 1.3-1.5 Cr 5.26>3.8>3.6>2.8>3.7 Appreciate nephrology recommendation on Dialysis currently Sleep apnea CPAP intolerant DM II ISS for now Monitor BGs Hypothyroidism Continue Levothyroxine H/O A. fib Afib RVR: Dofetilide discontinued Not on anticoagulation, Xarelto was stopped in past because of history of hematochezia Appreciate cardiology input and recommendation Continue amiodarone, metoprolol Also on midodrine for hypotension Needs follow-up with cardiology upon discharge Intermittently Tachycardic Dysphagia Aspiration Precautions Speech Eval completed Diet as per speech COPD Sleep apnea Does not use any CPAP COPD remains stable Patient has declined Incruse Ellipta in the past, continue with home inhalers BiPAP as needed Chronic pain Patient reports multiple joint pains Narcotics discontinued Avoid Narcotic use Voltaren Gel PRN--Discontinued due to rash Anemia of chronic disease: Baseline hemoglobin 7-8 Monitor CBC Continue with iron supplementation Received Epo, Venofer DVT Px: SCDs Re: hx of GIB Code Status DNI/DNR: as per my discussion with patient and family Disposition: SNF when arranged Admission and Anticipated Discharge Date Admission Date: January 02, 2022 Subjective Patient is seen and examined at bedside States feeling constipated earlier today but had large bowel movement with bowel regimen Blood pressure low today No new complaints Denies any chest pain, shortness of breath, dizziness Denies any back pain today Review of Systems Review of Systems: All systems reviewed & are unremarkable except as noted in Subjective Physical Exam Physical Exam: Physical Exam: Vitals signs as noted above General Appearance:Morbidly Obese, no apparent distress, ill appearing Head: normocephalic, Atraumatic Eyes: normal inspection, EOMI Neck: supple, Trachea midline Respiratory/Chest: Decreased breath sounds, CTA, No accessory muscle use Cardiovascular: S1, S2, No murmur, +Tachycardia Abdomen/GI:Soft, Non tender, Bowel sounds present Extremities/Musculoskeletal:normal inspection, B/L LE edema improved Neurologic/Psych:grossly no focal neurological deficits Skin: normal color, warm Results & Data Results & Data ([facility]) Vital Signs (Past 12 Hours) Vital Signs Temp Pulse Pulse Resp BP Pulse Ox 02/13/22 16:16 36.4 C L 100 H 20 92/60 L 97 02/13/22 14:53 90 02/13/22 10:55 36.4 C L 98 H 20 87/60 L 97 02/13/22 08:02 36.3 C L 95 H 20 75/52 L 97 02/13/22 07:20 107 H (1) Congestive heart failure Heart failure chronicity: acute Heart failure type: combined systolic and diastolic Qualified Code(s): I50.41 - Acute combined systolic (congestive) and diastolic (congestive) heart failure
[2022-02-13] MEDS ORDERED: ACETAMINOPHEN W/CODEINE #3 1 TAB PO ONE (23:58)
[2022-02-14] MEDS: LEVOTHYROXINE SODIUM 125 MCG TABLET PO SCH (05:43)
[2022-02-14] MEDS ORDERED: SODIUM CHLORIDE 0.9% 1000ML 1,000 ML IV PRN (08:06)
[2022-02-14] MEDS ORDERED: HEPARIN SOD (PORCINE) 1000 UNIT/ML IV ONE (08:06)
[2022-02-14] MEDS ORDERED: ALBUMIN 25% 12.5 GM/50 ML VIAL IV ONE (08:06)
[2022-02-14] MEDS ORDERED: EPOETIN ALFA 10,000 UNITS/ML VIAL IV ONE (08:06)
[2022-02-14] MEDS: AMIODARONE 200 MG TAB PO SCH (08:45)
[2022-02-14] MEDS: ASCORBIC ACID 500 MG TAB PO SCH (08:45)
[2022-02-14] MEDS: FOLIC ACID 1 MG TAB PO SCH (08:46)
[2022-02-14] MEDS: METOPROLOL SUCC 25MG EXT REL TAB PO SCH ×5 (08:46→23:06)
[2022-02-14] MEDS: CYANOCOBALAMIN (B-12) 500 MCG TABLET PO SCH (08:46)
[2022-02-14] MEDS: FAMOTIDINE 10 MG TABLET PO SCH ×2 (08:46→20:50)
[2022-02-14] MEDS: FERROUS SULFATE 325 MG TAB PO SCH (08:46)
[2022-02-14] MEDS: LIDOCAINE 5% 1 PATCH TD SCH (08:46)
[2022-02-14] MEDS: MULTIVITAMIN TAB PO SCH (08:46)
[2022-02-14] MEDS: MIDODRINE HCL 10 MG TAB PO SCH ×3 (08:47→16:54)
[2022-02-14] MEDS: POLYETHYLENE (MIRALAX) 17 GM PACK PO SCH (08:47)
[2022-02-14 09:47] LABS: Calcium 8.3 mg/dl (8.5-10.1); Est GFR (African American) 13.4 ml/min; Est GFR (Non-African American) 11.6 ml/min; Potassium 4.1 mmol/L (3.5-5.1)
[2022-02-14 09:58] LABS: Hematocrit (blood only) 34.7 % (37-47); Hemoglobin 9.9 g/dL (12.0-16.0); Mean Corpuscular Hemoglobin 27.8 pg (25-34); Mean Corpuscular Hgb Conc 28.5 g/dL (32-36); Mean Corpuscular Volume 97.5 fL (80-100); Mean Platelet Volume 9.6 fL (7.4-10.4); Platelet Count 168 K/uL (130-400); RDW Coefficient of Variation 22.6 % (11.5-14.5); RDW Standard Deviation 81.5 fL (36.4-46.3); Red Blood Count 3.56 M/uL (4.2-5.4); White Blood Count 8.12 K/uL (4.8-10.8)
[2022-02-14] MEDS: ONDANSETRON INJ 2 MG/ML 2 ML VIAL IV PRN (10:58)
[2022-02-14] MEDS ORDERED: ALBUMIN 25% 12.5 GM/50 ML VIAL IV PRN (11:15)
[2022-02-14] MEDS: HEPARIN SOD (PORCINE) 1000 UNIT/ML IV SCH (11:22)
--- NOTE | 2022-02-14 14:06 | Dialysis Progress Note ---
Date of Service February 14, 2022 Assessment & Plan (1) ESRD (end stage renal disease) on dialysis: Plan: Anuric dialysis dependent ischemic ATN after several days of AF/F, tachycardia, and significant hypotension on midodrine and using albumin IV to support bp on txs and with pre-existing cardiorenal syndrome. Baseline creatinine before this admission was somewhat labile but generally to high ones. Her creatinine was 2 on admission 01/02. First day of dialysis January 10. Tolerated 1.2L UF today with 2 doses of prn albumin >>>She is dialysis dependent, anuric, and now on dialysis with more than a month of treatments but remains very challenging to dialyse d/t overload and hypotension>>changing her dx from STACY to ESRD >needs dialysis on monitor with midodrine and with prn IV albumin > not sure how she will do this as outpatient Daily to q48 hr basic metabolic panel -Continue tid Midodrine on max dose >>>challenging placement issues longer term at least at this point it will be very difficult to dialyze her as an outpatient d/t hemodynamics/blood pressures > have asked d/c planning team to find out can we give IV albumin in LTACH? can she dialyze on monitor there? Care d/w hospitalist and case mgt (2) Electrolyte and fluid disorder: Plan: improving volume overload\\anasarca in the setting of lower blood pressures as low as the 70s to 90s systolic but HR now 90-110s. monitor for need need low sodium diet and fluid limit 1.2 L daily; so far diet limitations preclude this and she's done ok; not getting more than 1.2 L po fluids in Strict intake and output to continue best we can -CXR to assess fluid status 02/12 > shows mild plm edema but overall improved Admission and Anticipated Discharge Date Admission Date: January 02, 2022 Subjective no interval events; seen on dialysis; pt states to me "I got agitated" but can't tell me much past that Review of Systems Review of Systems: All systems reviewed & are unremarkable except as noted in Subjective Physical Exam Constitutional: well developed, + morbidly obese, + frail appearing and + edematous (dependent); no acute distress Eyes: EOM intact bilaterally ENMT: Ears: no external ear abnormality Nose: no external nose abnormality Mouth: + dry oral mucous membranes Neck: no nuchal rigidity Respiratory: normal respiratory effort Auscultation: + diminished lung sounds Cardiovascular: Rate/Rhythm: + irregularly irregular Extremities: + edema (trace BLE pretibial again less taut and 1++ hips/ dependent) Gastrointestinal (Abdomen): Inspection/Auscultation: normal bowel sounds Percussion/Palpation: abdomen soft; abdomen nontender Musculoskeletal: Extremities: + abnormal strength (Generalized weakness) Skin: no rashes, warm and dry Psychiatric: Orientation: oriented to person and oriented to place Insight: + limited insight Results & Data ([facility]) Vital Signs (Past 12 Hours) Vital Signs Temp Pulse Pulse Pulse Pulse Resp BP 02/14/22 12:40 108 H 90/45 L 02/14/22 12:20 87 79/54 L 02/14/22 12:00 104 H 77/43 L 02/14/22 11:40 96 H 74/53 L 02/14/22 11:20 106 H 81/53 L 02/14/22 11:13 36.4 C L 103 H 18 02/14/22 11:00 75 72/45 L 02/14/22 10:40 114 H 81/53 L 02/14/22 10:20 81 76/44 L 02/14/22 10:00 70 73/52 L 02/14/22 09:51 36.3 C L 93 H 02/14/22 08:01 36.6 C 117 H 18 02/14/22 08:00 104 H 02/14/22 02:51 35.7 C L 107 H 18 BP BP Pulse Ox 02/14/22 12:40 02/14/22 12:20 02/14/22 12:00 02/14/22 11:40 02/14/22 11:20 02/14/22 11:13 78/56 L 97 02/14/22 11:00 02/14/22 10:40 02/14/22 10:20 02/14/22 10:00 02/14/22 09:51 02/14/22 08:01 85/46 L 100 02/14/22 08:00 02/14/22 02:51 88/62 L 100
--- NOTE | 2022-02-14 18:36 | Hospitalist Progress Note ---
Date of Service February 14, 2022 delayed entry date of service noted above Assessment & Plan (1) History of noncompliance with medical treatment: (2) Congestive heart failure: (3) Leg edema: Plan: Patient is a 76 yr female with H/O DM II, hypothyroidism, hyperlipidemia, COPD, on chronic oxygen baseline 3 liters oxygen, sleep apnea not on CPAP - intolerant as per the patient, paroxysmal atrial fibrillation, cor pulmonale, chronic essential hypertension, morbid obesity, irritable bowel syndrome, stage III chronic kidney disease, mixed stress and urge incontinence, chronic pain syndrome, TIA. Patient presented 01/01 to our ED with complaint of progressive fluid retention along with worsening shortness of breath, denies fever and aspiration, reports compliance with home medication. 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 Acute Metabolic Encephalopathy -POA Likely multifactorial: Hypercarbia,Uremia, Hyponatremia, Medications H/O COPD and sleep apnea and intolerance to CPAP and/or BiPAP Chronic Oxygen dependency: 3L at rest and 4L with activity at baseline Continue dialysis as per Nephrology Titrate Oxygen to keep Sats 88-92% given H/O COPD Baclofen discontinued Avoid Narcotic use Home oxycodone/OxyContin titrated down to 2.5 mg twice daily and then discontinued Continue lidocaine patch Intolerance to BiPAP. Patient has chronic hypercapnia Patient will need sleep study as outpatient ABG showed hypercarbia but nocturnal oximetry showed desaturation less than 88% for 2 minutes 26 seconds Denied by LTAC. Patient needs complex management given hemodynamic instability. Will need LTAC placement. 02/14 awake , oriented Acute on chronic heart failure with preserved ejection fraction Possible cardiorenal syndrome Patient reports increasing bilateral lower extremity swelling prior to arrival --11/29 ECHO:Ejection fraction greater than 70%, hyperdynamic left ventricle with normal left ventricle size and normal left ventricular wall thickness. ? Med compliance Appreciate Cardiology, Nephrology Input Pt did not diuresis with IV Lasix . Continue with strict I's and O's, daily weights, fluid restriction Midodrine added for hypotension Volume status to be addressed with dialysis Permanent Catheter for HD placed on 01/10/22 Dialysis as per Nephrology Currently on dialysis Saturday Received IV albumin, EPO and Venofer yesterday Increase midodrine to 10 mg 3 times daily given low blood pressure 02/14 BP still tenuous continue Midodrine PRN boluses as needed Concern for HCAP UTI / CAUTI : Pt w/ bob at home (per patient after her last discharge), urine Cx +ve for ESBL UTI CXR: Concern for developing fibrosis versus infectious process CTAP and CT chest: Suggestive of post inflammatory fibrosis, urinary bladder wall thickening with perivesicular stranding/correlate with urinalysis. Patient started on ertapenem 01/02-->Meropenem 01/04. 01/04 MRSA negative. Completed antibiotic course STACY with CKD Baseline creatinine around 1.3-1.5 Cr 5.26>3.8>3.6>2.8>3.7 Appreciate nephrology recommendation on Dialysis currently Sleep apnea CPAP intolerant DM II ISS for now Monitor BGs Hypothyroidism Continue Levothyroxine H/O A. fib Afib RVR: Dofetilide discontinued Not on anticoagulation, Xarelto was stopped in past because of history of hematochezia Appreciate cardiology input and recommendation Continue amiodarone, metoprolol Also on midodrine for hypotension Needs follow-up with cardiology upon discharge Intermittently Tachycardic Dysphagia Aspiration Precautions Speech Eval completed Diet as per speech COPD Sleep apnea Does not use any CPAP COPD remains stable Patient has declined Incruse Ellipta in the past, continue with home inhalers BiPAP as needed Chronic pain Patient reports multiple joint pains Narcotics discontinued Avoid Narcotic use Voltaren Gel PRN--Discontinued due to rash Anemia of chronic disease: Baseline hemoglobin 7-8 Monitor CBC Continue with iron supplementation Received Epo, Venofer DVT Px: SCDs Re: hx of GIB Code Status DNI/DNR: as per my discussion with patient and family Disposition: SNF when arranged Admission and Anticipated Discharge Date Admission Date: January 02, 2022 Subjective ff up for acute renal failure, etc seen resting in bed, comfortable states she feels fine overall just tired no chest pain, dyspnea, palpitations, dizziness no other symptoms Review of Systems Review of Systems: all noted and negative except for above Physical Exam Physical Exam: General- oriented x 3, not in distress, speaks in sentences with no effort or accessory muscle use Eyes- anicteric Neck- no JVD Lungs- mild rales at the bases Heart- normal rate, regular rhythm; no murmurs Abdomen- normal bowel sounds, nondistended, soft, nontender Extremities- mild pretibial edema, no calf tenderness Neuro- alert, oriented x 3; no gross focal neurologic deficits Skin- warm & dry Results & Data Results & Data ([facility]) Vital Signs (Past 12 Hours) Vital Signs Temp Pulse Pulse Pulse Pulse Resp BP 02/14/22 15:54 105 H 02/14/22 15:29 02/14/22 15:01 36.9 C 96 H 16 02/14/22 13:47 36.6 C 117 H 02/14/22 13:43 99 H 81/49 L 02/14/22 13:40 99 H 82/48 L 02/14/22 13:20 116 H 92/28 L 02/14/22 13:00 90 74/46 L 02/14/22 12:40 100 H 90/45 L 02/14/22 12:20 87 79/54 L 02/14/22 12:00 104 H 77/43 L 02/14/22 11:40 96 H 74/53 L 02/14/22 11:20 106 H 81/53 L 02/14/22 11:13 36.4 C L 103 H 18 02/14/22 11:00 75 72/45 L 02/14/22 10:40 114 H 81/53 L 02/14/22 10:20 81 76/44 L 02/14/22 10:00 70 73/52 L 02/14/22 09:51 36.3 C L 93 H 02/14/22 08:01 36.6 C 117 H 18 02/14/22 08:00 104 H BP BP Pulse Ox 02/14/22 15:54 02/14/22 15:29 93/56 L 02/14/22 15:01 67/45 L 97 02/14/22 13:47 84/44 L 02/14/22 13:43 02/14/22 13:40 02/14/22 13:20 02/14/22 13:00 02/14/22 12:40 02/14/22 12:20 02/14/22 12:00 02/14/22 11:40 02/14/22 11:20 02/14/22 11:13 78/56 L 97 02/14/22 11:00 02/14/22 10:40 02/14/22 10:20 02/14/22 10:00 02/14/22 09:51 02/14/22 08:01 85/46 L 100 02/14/22 08:00 all noted and reviewed including below (1) Congestive heart failure Heart failure chronicity: acute Heart failure type: combined systolic and diastolic Qualified Code(s): I50.41 - Acute combined systolic (congestive) and diastolic (congestive) heart failure
[2022-02-14] MEDS: ACETAMINOPHEN 325 MG TAB PO PRN (20:48)
[2022-02-14] MEDS ORDERED: SODIUM CHLORIDE 0.9% 500 ML IV SCH (21:15)
[2022-02-14] MEDS ORDERED: MIDODRINE HCL 10 MG TAB PO STA (23:06)
[2022-02-15 00:42] LABS: Base Excess ABG 1.7 mEq/L (-9-1.8); HCO3 ABG 29 mmol/L (19-24); Oxygen Saturation ABG 96.1 % (90-95); PCO2 ABG 65 mmHg (35-46); PO2 ABG 93 mmHg (80-95); pH ABG 7.27 (7.35-7.45)
[2022-02-15 00:45] LABS: Troponin I High Sensitivity 10.1 pg/ml (0-14)
[2022-02-15 00:50] LABS: Allen Test Pos (Pos); Hematocrit (blood only) 30.6 % (37-47); Hemoglobin 8.8 g/dL (12.0-16.0); Mean Corpuscular Hemoglobin 28.3 pg (25-34); Mean Corpuscular Hgb Conc 28.8 g/dL (32-36); Mean Corpuscular Volume 98.4 fL (80-100); Mean Platelet Volume 9.5 fL (7.4-10.4); Nucleated RBC # (auto) 0.05 K/uL (0-0); Nucleated RBC % (auto) 0.7 %; Platelet Count 162 K/uL (130-400); RDW Coefficient of Variation 22.7 % (11.5-14.5); RDW Standard Deviation 80.8 fL (36.4-46.3); Red Blood Count 3.11 M/uL (4.2-5.4); White Blood Count 6.77 K/uL (4.8-10.8)
[2022-02-15 00:54] LABS: BUN Creatinine Ratio 2.5 (10-20); Calcium 7.9 mg/dl (8.5-10.1); Creatinine Clr Calc Pharmacy 25.6 ml/min; Potassium 3.6 mmol/L (3.5-5.1)
[2022-02-15 01:09] LABS: Anisocytosis Present; Basophils # (auto) 0.04 K/uL (0-0.2); Basophils % (auto) 0.6 %; Eosinophils # (auto) 0.28 K/uL (0-0.5); Eosinophils % (auto) 4.1 %; Hypochromasia Present; Immature Granulocytes # (auto) 0.01 K/uL (0.00-0.02); Immature Granulocytes % (auto) 0.1 %; Lymphocytes # (auto) 1.76 K/uL (1.2-3.4); Monocytes # (auto) 0.86 K/uL (0.11-0.59); Monocytes % (auto) 12.7 %; Neutrophils # (auto) 3.82 K/uL (1.4-6.5); Neutrophils % (auto) 56.5 %; Polychromasia 1+; Target Cells 1+
[2022-02-15] MEDS: ACETAMINOPHEN 325 MG TAB PO PRN ×3 (05:49→21:19)
[2022-02-15] MEDS: LEVOTHYROXINE SODIUM 125 MCG TABLET PO SCH (05:50)
[2022-02-15] MEDS: ONDANSETRON INJ 2 MG/ML 2 ML VIAL IV PRN (05:55)
[2022-02-15] MEDS: ASCORBIC ACID 500 MG TAB PO SCH (08:07)
[2022-02-15] MEDS: FERROUS SULFATE 325 MG TAB PO SCH (08:07)
[2022-02-15] MEDS: AMIODARONE 200 MG TAB PO SCH (08:07)
[2022-02-15] MEDS: MIDODRINE HCL 10 MG TAB PO SCH ×3 (08:07→16:15)
[2022-02-15] MEDS: FOLIC ACID 1 MG TAB PO SCH (08:07)
[2022-02-15] MEDS: METOPROLOL SUCC 25MG EXT REL TAB PO SCH ×4 (08:07→21:19)
[2022-02-15] MEDS: MULTIVITAMIN TAB PO SCH (08:07)
[2022-02-15] MEDS: CYANOCOBALAMIN (B-12) 500 MCG TABLET PO SCH (08:07)
[2022-02-15] MEDS: FAMOTIDINE 10 MG TABLET PO SCH ×2 (08:07→21:23)
[2022-02-15] MEDS: LIDOCAINE 5% 1 PATCH TD SCH (08:08)
[2022-02-15] MEDS: POLYETHYLENE (MIRALAX) 17 GM PACK PO SCH (08:10)
--- NOTE | 2022-02-15 12:07 | Cardiology Progress Note ---
Date of Service February 15, 2022 Assessment & Plan (1) Persistent atrial fibrillation: (2) Chronic hypotension: (3) Acute on chronic renal failure: (4) Long COVID: (5) Acute on chronic respiratory failure with hypoxia and hypercapnia: Plan: Telemetry reviewed, 02/15/2022, atrial fibrillation noted, ventricular rate 110- 120 bpm. Occasional low blood pressures noted. This has been an ongoing issue. This is in part felt to be due to her body habitus and difficulty with obtaining noninvasive blood pressure measurements. Persistent atrial fibrillation. Rates acceptably controlled on metoprolol succinate 12.5 mg 4 times daily, and amiodarone 200 mg daily. Patient has recently missed 2 doses of metoprolol succinate, held for parameters likely due to concerns of low blood pressure. At this time, patient has been in the hospital for 44 days, and I think we have demonstrated that she tolerates her current regimen well and I would recommend continuing it, and I think we can be more aggressive with regards to the hold parameters. I also think would be reasonable to transition her off of telemetry, with thoughts that her rhythm has been stable, and I do not think it is a factor at present. 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 Continue as presently prescribed. Hypotension. Continue Midodrine 10 mg 3 times daily as prescribed. Congestive heart failure. Volume managed via hemodialysis Renal failure. As per Nephrology. Admission and Anticipated Discharge Date Admission Date: January 02, 2022 Subjective Patient seen in cardiac reassessment per the request of Dr. Benítez for the evaluation of atrial fibrillation. Patient supine. Comfortable. She is able to tell me that she is at [facility]. No current shortness of breath. Physical Exam Constitutional: + morbidly obese Respiratory: Mildly reduced breath sounds in the bases Cardiovascular: Rate/Rhythm: + irregularly irregular Extremities: no edema Neurologic: Conversant Results & Data ([facility]) Vital Signs (Past 12 Hours) Vital Signs Temp Pulse Pulse Pulse Pulse Resp BP 02/15/22 11:02 36.8 C 110 H 20 104/73 02/15/22 09:18 110 H 90/61 L 02/15/22 07:53 135 H 02/15/22 07:47 36.7 C 132 H 20 02/15/22 05:57 112 H 79/53 L 02/15/22 04:02 36.5 C 119 H 18 75/41 L 02/15/22 00:08 117 H 72/35 L Pulse Ox 02/15/22 11:02 91 02/15/22 09:18 02/15/22 07:53 02/15/22 07:47 93 02/15/22 05:57 02/15/22 04:02 98 02/15/22 00:08 Laboratory Results Cardiac Enzymes 02/15/22 Range/Units 00:02 Troponin I High Sens 10.1 (0-14) pg/ml CBC 02/15/22 Range/Units 00:02 WBC 6.77 (4.8-10.8) K/uL RBC 3.11 L (4.2-5.4) M/uL Hgb 8.8 L (12.0-16.0) g/dL Hct 30.6 L (37-47) % Plt Count 162 (130-400) K/uL Neut # (Auto) 3.82 (1.4-6.5) K/uL Lymph # (Auto) 1.76 (1.2-3.4) K/uL [place] # (Auto) 0.86 H (0.11-0.59) K/uL Eos # (Auto) 0.28 (0-0.5) K/uL Baso # (Auto) 0.04 (0-0.2) K/uL Comprehensive Metabolic Panel 02/15/22 Range/Units 00:02 Sodium 139 (136-145) mmol/L Potassium 3.6 (3.5-5.1) mmol/L Chloride 105 (98-107) mmol/L Carbon Dioxide 29 (21-32) mmol/L BUN 6 (6-23) mg/dl Creatinine 2.41 H D (0.6-1.2) mg/dl Glucose 90 (70-99(Fasting)) mg/dl Calcium 7.9 L (8.5-10.1) mg/dl Intake and Output 02/14/22 02/15/22 02/15/22 22:59 06:59 14:59 Intake Total 1050 / 1895 0 1895 Balance 1050 / 1895 0 1895 Intake: IV 500 / 600 Sodium Chloride 0.9% 500 ml @ 500 / 500 500 mls/hr IV .Q1H [facility] Rx#: [id number] Oral 550 / 1295 129 Other: Weight 116.3 kg Weight Measurement Method [facility]
--- NOTE | 2022-02-15 17:01 | Hospitalist Progress Note ---
Date of Service February 15, 2022 Assessment & Plan (1) History of noncompliance with medical treatment: (2) Congestive heart failure: (3) Leg edema: Plan: per Dr. El's notes with addendum: Patient is a 76 yr female with H/O DM II, hypothyroidism, hyperlipidemia, COPD, on chronic oxygen baseline 3 liters oxygen, sleep apnea not on CPAP - intolerant as per the patient, paroxysmal atrial fibrillation, cor pulmonale, chronic essential hypertension, morbid obesity, irritable bowel syndrome, stage III chronic kidney disease, mixed stress and urge incontinence, chronic pain syndrome, TIA. Patient presented 01/01 to our ED with complaint of progressive fluid retention along with worsening shortness of breath, denies fever and aspiration, reports compliance with home medication. 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 Acute Metabolic Encephalopathy -POA Likely multifactorial: Hypercarbia,Uremia, Hyponatremia, Medications H/O COPD and sleep apnea and intolerance to CPAP and/or BiPAP Chronic Oxygen dependency: 3L at rest and 4L with activity at baseline Continue dialysis as per Nephrology Titrate Oxygen to keep Sats 88-92% given H/O COPD Baclofen discontinued Avoid Narcotic use Home oxycodone/OxyContin titrated down to 2.5 mg twice daily and then discontinued Continue lidocaine patch Intolerance to BiPAP. Patient has chronic hypercapnia Patient will need sleep study as outpatient ABG showed hypercarbia but nocturnal oximetry showed desaturation less than 88% for 2 minutes 26 seconds Denied by LTAC. Patient needs complex management given hemodynamic instability. Will need LTAC placement. 02/15 oriented x 3 today hypotensive overnight, given IV fluid bolus BP improved monitor closely Acute on chronic heart failure with preserved ejection fraction Possible cardiorenal syndrome Patient reports increasing bilateral lower extremity swelling prior to arrival --11/29 ECHO:Ejection fraction greater than 70%, hyperdynamic left ventricle with normal left ventricle size and normal left ventricular wall thickness. ? Med compliance Appreciate Cardiology, Nephrology Input Pt did not diuresis with IV Lasix . Continue with strict I's and O's, daily weights, fluid restriction Midodrine added for hypotension Volume status to be addressed with dialysis Permanent Catheter for HD placed on 01/10/22 Dialysis as per Nephrology Currently on dialysis Saturday Received IV albumin, EPO and Venofer yesterday Increase midodrine to 10 mg 3 times daily given low blood pressure 02/15 was tachycardic this morning Cardiology re-eval requested Concern for HCAP UTI / CAUTI : Pt w/ bob at home (per patient after her last discharge), urine Cx +ve for ESBL UTI CXR: Concern for developing fibrosis versus infectious process CTAP and CT chest: Suggestive of post inflammatory fibrosis, urinary bladder wall thickening with perivesicular stranding/correlate with urinalysis. Patient started on ertapenem 01/02-->Meropenem 01/04. 01/04 MRSA negative. Completed antibiotic course 02/15 no cough, sputum production STACY with CKD Baseline creatinine around 1.3-1.5 Cr 5.26>3.8>3.6>2.8>3.7 Appreciate nephrology recommendation on Dialysis currently Sleep apnea CPAP intolerant DM II ISS for now Monitor BGs Hypothyroidism Continue Levothyroxine H/O A. 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 Dysphagia Aspiration Precautions Speech Eval completed Diet as per speech COPD Sleep apnea Does not use any CPAP COPD remains stable Patient has declined Incruse Ellipta in the past, continue with home inhalers BiPAP as needed Chronic pain Patient reports multiple joint pains Narcotics discontinued Avoid Narcotic use Voltaren Gel PRN--Discontinued due to rash Anemia of chronic disease: Baseline hemoglobin 7-8 Monitor CBC Continue with iron supplementation Received Epo, Venofer DVT Px: SCDs Re: hx of GIB Code Status DNI/DNR: as per discussion with patient and family Disposition: LTAC Admission and Anticipated Discharge Date Admission Date: January 02, 2022 Subjective ff up for acute renal failure, etc seen resting in bed, not in distress comfortable states she feels ok today no chest pain, dyspnea, palpitations, dizziness appetite poor- ate only 25% of her tray no other symptoms BP on the lower side Review of Systems Review of Systems: all noted and negative except for above Physical Exam Physical Exam: General- oriented x 3, not in distress, speaks in sentences with no effort or accessory muscle use Eyes- anicteric Neck- no JVD Lungs- clear breath sounds bilaterally, no rales/wheezes Heart- normal rate,irregularly irregular rhythm; no murmurs Abdomen- normal bowel sounds, nondistended, soft, nontender Extremities- mild pretibial edema, no calf tenderness Neuro- alert, oriented x 3; no gross focal neurologic deficits Skin- warm & dry Results & Data Results & Data ([facility]) Vital Signs (Past 12 Hours) Vital Signs Temp Pulse Pulse Pulse Resp BP Pulse Ox 02/15/22 15:17 36.7 C 98 H 20 85/60 L 93 02/15/22 11:02 36.8 C 110 H 20 104/73 91 02/15/22 09:18 110 H 90/61 L 02/15/22 07:53 135 H 02/15/22 07:47 36.7 C 132 H 20 93 02/15/22 05:57 112 H 79/53 L all noted and reviewed including below (1) Congestive heart failure Heart failure chronicity: acute Heart failure type: combined systolic and diastolic Qualified Code(s): I50.41 - Acute combined systolic (congestive) and diastolic (congestive) heart failure
[2022-02-15] MEDS ORDERED: SODIUM CHLORIDE 0.9% 1000ML 1,000 ML IV PRN (18:41)
--- NOTE | 2022-02-15 18:42 | Nephrology Progress Note ---
Date of Service February 15, 2022 Assessment & Plan (1) ESRD (end stage renal disease) on dialysis: Plan: Anuric dialysis dependent ischemic ATN after several days of AF/F, tachycardia, and significant hypotension on midodrine and using albumin IV to support bp on txs and with pre-existing cardiorenal syndrome. Baseline creatinine before this admission was somewhat labile but generally to high ones. Her creatinine was 2 on admission 01/02. First day of dialysis January 10. Tolerated 1.2L UF yesterday with 2 doses of prn albumin; but needed IVF overnight >>>She is dialysis dependent, anuric, and now on dialysis with more than a month of treatments but remains very challenging to dialyse d/t overload and hypotension/tachycardia >>changing her dx from STACY to ESRD >needs dialysis with max dose midodrine and with prn IV albumin > not sure how she will do this as outpatient; prefer dialysis on monitor Daily to q48 hr basic metabolic panel -Continue tid Midodrine on max dose >>will for now reduce UF goals >>>challenging placement issues longer term at least at this point it will be very difficult to dialyze her as an outpatient d/t hemodynamics/blood pressures > have asked d/c planning team to find out can we give IV albumin in LTACH? can she dialyze on monitor there? Care d/w hospitalist (2) Electrolyte and fluid disorder: Plan: plateau'd volume overload\anasarca in the setting of lower blood pressures as low as the 70s to 90s systolic and HR now 90-110s. some improvement in BP today w/ more ivf monitor for need for low sodium diet and fluid limit 1.2 L daily; so far diet limitations preclude this and she's done ok; not getting more than 1.2 L po fluids in Strict intake and output to continue best we can -CXR to assess fluid status 02/12 > shows mild plm edema but overall improved Admission and Anticipated Discharge Date Admission Date: January 02, 2022 Subjective needed 750 mL ivf overnight d/t lower bp; also was somnolent at times; seen on pm rounds; cardiology came back to evaluate pt given hypotension and to reeval BB dose which they say is ok Review of Systems Review of Systems: All systems reviewed & are unremarkable except as noted in Subjective Physical Exam Constitutional: well developed, + morbidly obese, + frail appearing and + edematous (dependent); no acute distress Eyes: EOM intact bilaterally ENMT: Ears: no external ear abnormality Nose: no external nose abnormality Mouth: + dry oral mucous membranes Neck: no nuchal rigidity Respiratory: normal respiratory effort Auscultation: + diminished lung sounds Cardiovascular: Rate/Rhythm: + irregularly irregular Extremities: + edema (trace BLE pretibial and 2+ hips/ dependent) Gastrointestinal (Abdomen): Inspection/Auscultation: normal bowel sounds Percussion/Palpation: abdomen soft; abdomen nontender Musculoskeletal: Extremities: + abnormal strength (Generalized weakness) Skin: no rashes, warm and dry Psychiatric: Orientation: oriented to person and oriented to place Insight: + limited insight Results & Data ([facility]) Vital Signs (Past 12 Hours) Vital Signs Temp Pulse Pulse Resp BP Pulse Ox 02/15/22 17:39 106 H 02/15/22 15:17 36.7 C 98 H 20 85/60 L 93 02/15/22 11:02 36.8 C 110 H 20 104/73 91 02/15/22 09:18 110 H 90/61 L 02/15/22 07:53 135 H 02/15/22 07:47 36.7 C 132 H 20 93 Laboratory Results 02/15/22 00:02 02/15/22 00:02
[2022-02-16] MEDS: LEVOTHYROXINE SODIUM 125 MCG TABLET PO SCH (06:25)
[2022-02-16] MEDS ORDERED: SODIUM CHLORIDE 0.9% 1000ML 1,000 ML IV PRN (07:00)
[2022-02-16] MEDS ORDERED: EPOETIN ALFA 10,000 UNITS/ML VIAL IV SCH (07:00)
[2022-02-16] MEDS ORDERED: HEPARIN SOD (PORCINE) 1000 UNIT/ML IV ONE (07:00)
[2022-02-16] MEDS: FAMOTIDINE 10 MG TABLET PO SCH ×2 (08:20→20:10)
[2022-02-16] MEDS: LIDOCAINE 5% 1 PATCH TD SCH (08:20)
[2022-02-16] MEDS: AMIODARONE 200 MG TAB PO SCH (08:20)
[2022-02-16] MEDS: MIDODRINE HCL 10 MG TAB PO SCH ×3 (08:20→17:17)
[2022-02-16] MEDS: METOPROLOL SUCC 25MG EXT REL TAB PO SCH ×5 (08:21→23:45)
[2022-02-16] MEDS: ACETAMINOPHEN 325 MG TAB PO PRN (08:22)
[2022-02-16] MEDS: HEPARIN SOD (PORCINE) 1000 UNIT/ML IV SCH (09:19)
--- NOTE | 2022-02-16 10:20 | Nephrology Progress Note ---
Date of Service February 16, 2022 Assessment & Plan (1) ESRD (end stage renal disease) on dialysis: Plan: Anuric dialysis dependent ischemic ATN after several days of AF/F, tachycardia, and significant hypotension on midodrine and using albumin IV to support bp on txs and with pre-existing cardiorenal syndrome. Baseline creatinine before this admission was somewhat labile but generally to high ones. Her creatinine was 2 on admission 01/02. First day of dialysis January 10. >>>She is dialysis dependent, anuric, and now on dialysis with more than a month of treatments but remains very challenging to dialyse d/t overload and hypotension/tachycardia >>changed her dx from STACY to ESRD >needs dialysis with max dose midodrine and with prn IV albumin > not sure how she will do this as outpatient; prefer dialysis on monitor Daily to q48 hr basic metabolic panel -Continue tid Midodrine on max dose >>will for now reduce UF goals >>>challenging placement issues longer term at least at this point it will be very difficult to dialyze her as an outpatient d/t hemodynamics/blood pressures > have asked d/c planning team to find out can we give IV albumin in LTACH? can she dialyze on monitor there? - HD TODAY (2) Electrolyte and fluid disorder: Plan: plateau'd volume overload\anasarca in the setting of lower blood pressures as low as the 70s to 90s systolic and HR now 90-110s. some improvement in BP today w/ more ivf monitor for need for low sodium diet and fluid limit 1.2 L daily; so far diet limitations preclude this and she's done ok; not getting more than 1.2 L po fluids in Strict intake and output to continue best we can Admission and Anticipated Discharge Date Admission Date: January 02, 2022 Subjective Seen and examined on dialysis Somlonent but arousable In mild respiratory distress. bilateral pedal edema 2+ Review of Systems Review of Systems: All other systems were reviewed and negative except as noted in HPI Physical Exam Physical Exam: Constitutional:I + well hydrated a nd + obese; no acu te distress Eyes: PERRL, conjunctiva e normal, anicteri c sclerae ENMT: external ear and n ose normal, oropha rynx normal Respiratory: normal respiratory effort; no respir atory distress Cardiovascular:I Rate/Rhythm: regul ar rate and regula r rhythm S1 S2 Gastrointestinal ( Abdomen): normal bowel sound s, soft, nontender , no hepatosplenom egaly Skin: Erythematous rash over trunk- resolv ing Neurologic: PERRL, EOMI, accom modation nl, no fa ce palsy, no dysar thria Psychiatric: A+Ox3, euthymic af fect Results & Data ([facility]) Vital Signs (Past 12 Hours) Vital Signs Temp Pulse Pulse Pulse Pulse Resp BP 02/16/22 09:50 89 96/50 L 02/16/22 09:20 94 H 130/87 02/16/22 09:02 36.8 C 98 H 02/16/22 07:55 104 H 02/16/22 07:00 36.4 C L 125 H 22 02/16/22 06:29 117 H 24 02/16/22 06:14 129 H 02/16/22 04:16 36.5 C 117 H 20 02/15/22 23:00 36.4 C L 108 H 20 BP Pulse Ox 02/16/22 09:50 02/16/22 09:20 02/16/22 09:02 02/16/22 07:55 02/16/22 07:00 72/51 L 93 02/16/22 06:29 77/54 L 02/16/22 06:14 02/16/22 04:16 77/44 L 99 02/15/22 23:00 83/47 L 96 Laboratory Results 02/15/22 00:02 02/15/22 00:02
[2022-02-16] MEDS: ASCORBIC ACID 500 MG TAB PO SCH (12:43)
[2022-02-16] MEDS: FOLIC ACID 1 MG TAB PO SCH (12:43)
[2022-02-16] MEDS: CYANOCOBALAMIN (B-12) 500 MCG TABLET PO SCH (12:43)
[2022-02-16] MEDS: FERROUS SULFATE 325 MG TAB PO SCH (12:43)
[2022-02-16] MEDS: POLYETHYLENE (MIRALAX) 17 GM PACK PO SCH (12:44)
[2022-02-16] MEDS: MULTIVITAMIN TAB PO SCH (12:44)
[2022-02-16] MEDS ORDERED: SODIUM CHLORIDE 0.9% 1000ML 250 ML IV ONE ×2 (12:56→14:30)
[2022-02-16] MEDS ORDERED: SODIUM CHLORIDE 0.9% 250 ML IV STA (13:43)
[2022-02-16] MEDS ORDERED: Nursing to Pharmacy Communication SCH ×2 (13:45→14:30)
--- NOTE | 2022-02-16 16:22 | Cardiology Progress Note ---
Date of Service February 16, 2022 Assessment & Plan (1) Persistent atrial fibrillation: (2) Chronic hypotension: (3) Acute on chronic renal failure: (4) Long COVID: (5) Acute on chronic respiratory failure with hypoxia and hypercapnia: Plan: Telemetry reviewed, 02/15/2022, atrial fibrillation noted, ventricular rate 110- 120 bpm. Occasional low blood pressures noted. This has been an ongoing issue. This is in part felt to be due to her body habitus and difficulty with obtaining noninvasive blood pressure measurements. Persistent atrial fibrillation. Rates acceptably controlled on metoprolol succinate 12.5 mg 4 times daily, and amiodarone 200 mg daily. Has missed the last 5 doses of metoprolol. At this time, patient has been in the hospital for 45 days, and I think we have demonstrated that she tolerates her current regimen well and I would recommend continuing it, and I think we can be more aggressive with regards to the hold parameters. I also think would be reasonable to transition her off of telemetry, with thoughts that her rhythm has been stable, and I do not think it is a factor at present. Risks of long-term anticoagulation are felt to be greater than the benefit. Continue as presently prescribed. Hypotension. Continue Midodrine 10 mg 3 times daily as prescribed. Congestive heart failure. Volume managed via hemodialysis Renal failure. As per Nephrology. Admission and Anticipated Discharge Date Admission Date: January 02, 2022 Subjective Patient seen in follow-up. Lying supine. No distress. Atrial fibrillation 112 bpm noted on the monitor. Physical Exam Physical Exam: Temp Pulse Resp BP Pulse Ox 36.7 C 126 H 22 90/50 L 93 02/16/22 15:00 02/16/22 14:32 02/16/22 15:00 02/16/22 14:49 02/16/22 07:00 Constitutional: + ill appearing and + morbidly obese Respiratory: normal respiratory effort, lungs clear to auscultation Auscultation: + diminished lung sounds Cardiovascular: Rate/Rhythm: regular rate, regular rhythm and + irregularly irregular Heart Sounds: no murmur Extremities: no edema Gastrointestinal (Abdomen): normal bowel sounds, soft, nontender, no hepatosplenomegaly Neurologic: PERRL, EOMI, accommodation nl, no face palsy, no dysarthria
--- NOTE | 2022-02-16 18:52 | Hospitalist Progress Note ---
Date of Service February 16, 2022 Assessment & Plan (1) History of noncompliance with medical treatment: (2) Congestive heart failure: (3) Leg edema: Plan: per Dr. El's notes with addendum: Patient is a 76 yr female with H/O DM II, hypothyroidism, hyperlipidemia, COPD, on chronic oxygen baseline 3 liters oxygen, sleep apnea not on CPAP - intolerant as per the patient, paroxysmal atrial fibrillation, cor pulmonale, chronic essential hypertension, morbid obesity, irritable bowel syndrome, stage III chronic kidney disease, mixed stress and urge incontinence, chronic pain syndrome, TIA. Patient presented 01/01 to our ED with complaint of progressive fluid retention along with worsening shortness of breath, denies fever and aspiration, reports compliance with home medication. Of note, patient was recently discharged from hospital after being treated for respiratory failure secondary to COPD exacerbation secondary to COVID-19 infection to rehab and then transitioned to home 1 week ago [employer]. Acute Metabolic Encephalopathy -POA Likely multifactorial: Hypercarbia,Uremia, Hyponatremia, Medications H/O COPD and sleep apnea and intolerance to CPAP and/or BiPAP Chronic Oxygen dependency: 3L at rest and 4L with activity at baseline Continue dialysis as per Nephrology Titrate Oxygen to keep Sats 88-92% given H/O COPD Baclofen discontinued Avoid Narcotic use Home oxycodone/OxyContin titrated down to 2.5 mg twice daily and then discontinued Continue lidocaine patch Intolerance to BiPAP. Patient has chronic hypercapnia Patient will need sleep study as outpatient ABG showed hypercarbia but nocturnal oximetry showed desaturation less than 88% for 2 minutes 26 seconds Denied by LTAC. Patient needs complex management given hemodynamic instability. Will need LTAC placement. 02/16 oriented x 3 today hypotensive after HD today, given IV fluid bolus total of 750cc, BP improved monitor closely Acute on chronic heart failure with preserved ejection fraction Possible cardiorenal syndrome Patient reports increasing bilateral lower extremity swelling prior to arrival --11/29 ECHO:Ejection fraction greater than 70%, hyperdynamic left ventricle with normal left ventricle size and normal left ventricular wall thickness. ? Med compliance Appreciate Cardiology, Nephrology Input Pt did not diuresis with IV Lasix . Continue with strict I's and O's, daily weights, fluid restriction Midodrine added for hypotension Volume status to be addressed with dialysis Permanent Catheter for HD placed on 01/10/22 Dialysis as per Nephrology Currently on dialysis Saturday Received IV albumin, EPO and Venofer yesterday Increase midodrine to 10 mg 3 times daily given low blood pressure 02/16 continue Midodrine, Metoprolol monitor closely Concern for HCAP UTI / CAUTI : Pt w/ bob at home (per patient after her last discharge), urine Cx +ve for ESBL UTI CXR: Concern for developing fibrosis versus infectious process CTAP and CT chest: Suggestive of post inflammatory fibrosis, urinary bladder wall thickening with perivesicular stranding/correlate with urinalysis. Patient started on ertapenem 01/02-->Meropenem 01/04. 01/04 MRSA negative. Completed antibiotic course 02/16 no cough, sputum production STACY with CKD Baseline creatinine around 1.3-1.5 Cr 5.26>3.8>3.6>2.8>3.7 Appreciate nephrology recommendation on Dialysis currently Sleep apnea CPAP intolerant DM II ISS for now Monitor BGs Hypothyroidism Continue Levothyroxine H/O A. fib Afib RVR: Dofetilide discontinued Not on anticoagulation, Xarelto was stopped in past because of history of hematochezia Appreciate cardiology input and recommendation Continue amiodarone, metoprolol Also on midodrine for hypotension Needs follow-up with cardiology upon discharge Intermittently Tachycardic 02/16 Cardiology recommending to continue present regimen Dysphagia Aspiration Precautions Speech Eval completed Diet as per speech COPD Sleep apnea Does not use any CPAP COPD remains stable Patient has declined Incruse Ellipta in the past, continue with home inhalers BiPAP as needed Chronic pain Patient reports multiple joint pains Narcotics discontinued Avoid Narcotic use Voltaren Gel PRN--Discontinued due to rash Anemia of chronic disease: Baseline hemoglobin 7-8 Monitor CBC Continue with iron supplementation Received Epo, Venofer DVT Px: SCDs Re: hx of GIB Code Status DNI/DNR: as per discussion with patient and family Disposition: LTAC Admission and Anticipated Discharge Date Admission Date: January 02, 2022 Subjective ff up for acute renal failure, etc seen resting in bed, comfortable BP low after HD, given NSS 2500cc x 3 alert, conversant states she feels ok just tired having late lunch no chest pain, dyspnea, palpitations, dizziness no other symptoms Review of Systems Review of Systems: all noted and negative except for above Physical Exam Physical Exam: General- oriented x 3, not in distress, speaks in sentences with no effort or accessory muscle use Eyes- anicteric Neck- no JVD Lungs- clear BS bilaterally, no rales/wheezing Heart- normal rate, irregularly irregular rhythm; no murmurs Abdomen- normal bowel sounds, nondistended, soft, nontender Extremities- no pretibial edema, no calf tenderness Neuro- alert, oriented x 3; no gross focal neurologic deficits Skin- warm & dry Results & Data Results & Data ([facility]) Vital Signs (Past 12 Hours) Vital Signs Temp Pulse Pulse Pulse Resp BP BP 02/16/22 15:00 36.7 C 22 02/16/22 14:49 90/50 L 02/16/22 14:32 126 H 02/16/22 14:15 70/40 L 02/16/22 13:22 68/50 L 02/16/22 12:56 02/16/22 12:39 55/36 L 02/16/22 12:20 98 H 86/38 L 02/16/22 11:50 96 H 92/48 L 02/16/22 11:20 97 H 96/57 L 02/16/22 10:50 86 90/41 L 02/16/22 10:20 95 H 98/46 L 02/16/22 09:50 89 96/50 L 02/16/22 09:20 94 H 130/87 02/16/22 09:02 36.8 C 98 H 02/16/22 07:55 104 H 02/16/22 07:00 36.4 C L 125 H 22 BP Pulse Ox 02/16/22 15:00 02/16/22 14:49 02/16/22 14:32 02/16/22 14:15 68/47 L 02/16/22 13:22 02/16/22 12:56 72/58 L 02/16/22 12:39 69/38 L 02/16/22 12:20 02/16/22 11:50 02/16/22 11:20 02/16/22 10:50 02/16/22 10:20 02/16/22 09:50 02/16/22 09:20 02/16/22 09:02 02/16/22 07:55 02/16/22 07:00 72/51 L 93 all noted and reviewed including below (1) Congestive heart failure Heart failure chronicity: acute Heart failure type: combined systolic and diastolic Qualified Code(s): I50.41 - Acute combined systolic (congestive) and diastolic (congestive) heart failure
[2022-02-16] MEDS ORDERED: SODIUM CHLORIDE 0.9% 500 ML IV SCH (23:30)
[2022-02-17] MEDS: LEVALBUTEROL TARTRATE 15 GM HFA.AER.AD INH PRN (03:56)
[2022-02-17 04:35] LABS: HBSAG NON-REACTIVE (NON-REACTIVE)
[2022-02-17] MEDS: LEVOTHYROXINE SODIUM 125 MCG TABLET PO SCH (06:08)
[2022-02-17] MEDS: ASCORBIC ACID 500 MG TAB PO SCH (08:41)
[2022-02-17] MEDS: AMIODARONE 200 MG TAB PO SCH (08:41)
[2022-02-17] MEDS: MIDODRINE HCL 10 MG TAB PO SCH ×3 (08:41→16:05)
[2022-02-17] MEDS: FERROUS SULFATE 325 MG TAB PO SCH (08:42)
[2022-02-17] MEDS: FOLIC ACID 1 MG TAB PO SCH (08:42)
[2022-02-17] MEDS: FAMOTIDINE 10 MG TABLET PO SCH ×2 (08:42→20:20)
[2022-02-17] MEDS: CYANOCOBALAMIN (B-12) 500 MCG TABLET PO SCH (08:42)
[2022-02-17] MEDS: METOPROLOL SUCC 25MG EXT REL TAB PO SCH ×4 (08:42→20:21)
[2022-02-17] MEDS: POLYETHYLENE (MIRALAX) 17 GM PACK PO SCH (08:43)
[2022-02-17] MEDS: LIDOCAINE 5% 1 PATCH TD SCH (08:43)
[2022-02-17] MEDS: MULTIVITAMIN TAB PO SCH (08:43)
--- NOTE | 2022-02-17 10:44 | Nephrology Progress Note ---
Date of Service February 17, 2022 Assessment & Plan (1) ESRD (end stage renal disease) on dialysis: Plan: Anuric dialysis dependent ischemic ATN after several days of AF/F, tachycardia, and significant hypotension on midodrine and using albumin IV to support bp on txs and with pre-existing cardiorenal syndrome. Baseline creatinine before this admission was somewhat labile but generally to high ones. Her creatinine was 2 on admission 01/02. First day of dialysis January 10. >>>She is dialysis dependent, anuric, and now on dialysis with more than a month of treatments but remains very challenging to dialyse d/t overload and hypotension/tachycardia >>changed her dx from STACY to ESRD >needs dialysis with max dose midodrine and with prn IV albumin > not sure how she will do this as outpatient; prefer dialysis on monitor Daily to q48 hr basic metabolic panel -Continue tid Midodrine on max dose >>will for now reduce UF goals > Patient had dialysis yesterday. No indication for dialysis today. Next dialysis will be Saturday (2) Electrolyte and fluid disorder: Plan: plateau'd volume overload\anasarca in the setting of lower blood pressures as low as the 70s to 90s systolic and HR now 90-110s. some improvement in BP today w/ more ivf monitor for need for low sodium diet and fluid limit 1.2 L daily; so far diet limitations preclude this and she's done ok; not getting more than 1.2 L po fluids in Strict intake and output to continue best we can Admission and Anticipated Discharge Date Admission Date: January 02, 2022 Subjective Seen in follow-up for ESRD. She was dialyzed yesterday. No shortness of breath. Main complaint is weakness. Review of Systems Review of Systems: All other systems were reviewed and negative except as noted in HPI Physical Exam Physical Exam: General exam: Appears comfortable, no acute distress HEENT: Pupils are equal and reactive to light Neck: No JVD, neck is supple trachea is midline Respiratory system: Clear breath sounds bilaterally. Gastrointestinal: Abdomen is soft, non distended, non tender, bowel sounds are present CVS: Regular rate and rhythm. No murmurs, rubs or gallops Musculoskeletal: No joint or muscle tenderness Extremities: Non tender, no edema, peripheral pulses are present Neuro: Oriented, no tremors, no focal neurological deficits Skin: No rashes Results & Data ([facility]) Vital Signs (Past 12 Hours) Vital Signs Temp Pulse Pulse Pulse Pulse Resp BP 02/17/22 08:14 130 H 02/17/22 08:09 88/58 L 02/17/22 07:42 36.5 C 130 H 22 02/17/22 03:56 128 H 20 02/17/22 02:53 36.8 C 135 H 16 02/16/22 23:28 122 H 02/16/22 22:47 36.3 C L 130 H 26 H BP Pulse Ox 02/17/22 08:14 02/17/22 08:09 02/17/22 07:42 68/48 L 97 02/17/22 03:56 97 02/17/22 02:53 76/53 L 96 02/16/22 23:28 02/16/22 22:47 74/50 L 95 Laboratory Results 02/15/22 00:02
--- NOTE | 2022-02-17 14:15 | Hospitalist Progress Note ---
Date of Service February 17, 2022 Assessment & Plan (1) History of noncompliance with medical treatment: (2) Congestive heart failure: (3) Leg edema: Plan: per Dr. El's notes with addendum: Patient is a 76 yr female with H/O DM II, hypothyroidism, hyperlipidemia, COPD, on chronic oxygen baseline 3 liters oxygen, sleep apnea not on CPAP - intolerant as per the patient, paroxysmal atrial fibrillation, cor pulmonale, chronic essential hypertension, morbid obesity, irritable bowel syndrome, stage III chronic kidney disease, mixed stress and urge incontinence, chronic pain syndrome, TIA. Patient presented 01/01 to our ED with complaint of progressive fluid retention along with worsening shortness of breath, denies fever and aspiration, reports compliance with home medication. Of note, patient was recently discharged from hospital after being treated for respiratory failure secondary to COPD exacerbation secondary to COVID-19 infection to rehab and then transitioned to home 1 week ago [employer]. Acute Metabolic Encephalopathy -POA Likely multifactorial: Hypercarbia,Uremia, Hyponatremia, Medications H/O COPD and sleep apnea and intolerance to CPAP and/or BiPAP Chronic Oxygen dependency: 3L at rest and 4L with activity at baseline Continue dialysis as per Nephrology Titrate Oxygen to keep Sats 88-92% given H/O COPD Baclofen discontinued Avoid Narcotic use Home oxycodone/OxyContin titrated down to 2.5 mg twice daily and then discontinued Continue lidocaine patch Intolerance to BiPAP. Patient has chronic hypercapnia Patient will need sleep study as outpatient ABG showed hypercarbia but nocturnal oximetry showed desaturation less than 88% for 2 minutes 26 seconds Denied by LTAC. Patient needs complex management given hemodynamic instability. Will need LTAC placement. 02/17 oriented x 3 today BP stable this afternoon monitor closely Acute on chronic heart failure with preserved ejection fraction Possible cardiorenal syndrome Patient reports increasing bilateral lower extremity swelling prior to arrival --11/29 ECHO:Ejection fraction greater than 70%, hyperdynamic left ventricle with normal left ventricle size and normal left ventricular wall thickness. ? Med compliance Appreciate Cardiology, Nephrology Input Pt did not diuresis with IV Lasix . Continue with strict I's and O's, daily weights, fluid restriction Midodrine added for hypotension Volume status to be addressed with dialysis Permanent Catheter for HD placed on 01/10/22 Dialysis as per Nephrology Currently on dialysis Saturday Received IV albumin, EPO and Venofer yesterday Increase midodrine to 10 mg 3 times daily given low blood pressure 02/17 continue Midodrine, Metoprolol monitor closely Concern for HCAP UTI / CAUTI : Pt w/ bob at home (per patient after her last discharge), urine Cx +ve for ESBL UTI CXR: Concern for developing fibrosis versus infectious process CTAP and CT chest: Suggestive of post inflammatory fibrosis, urinary bladder wall thickening with perivesicular stranding/correlate with urinalysis. Patient started on ertapenem 01/02-->Meropenem 01/04. 01/04 MRSA negative. Completed antibiotic course 02/17 no cough, sputum production STACY with CKD Baseline creatinine around 1.3-1.5 Cr 5.26>3.8>3.6>2.8>3.7 Appreciate nephrology recommendation on Dialysis currently Sleep apnea CPAP intolerant DM II ISS for now Monitor BGs Hypothyroidism Continue Levothyroxine H/O A. fib Afib RVR: Dofetilide discontinued Not on anticoagulation, Xarelto was stopped in past because of history of hematochezia Appreciate cardiology input and recommendation Continue amiodarone, metoprolol Also on midodrine for hypotension Needs follow-up with cardiology upon discharge Intermittently Tachycardic 02/17 Cardiology recommending to continue present regimen Dysphagia Aspiration Precautions Speech Eval completed Diet as per speech COPD Sleep apnea Does not use any CPAP COPD remains stable Patient has declined Incruse Ellipta in the past, continue with home inhalers BiPAP as needed Chronic pain Patient reports multiple joint pains Narcotics discontinued Avoid Narcotic use Voltaren Gel PRN--Discontinued due to rash Anemia of chronic disease: Baseline hemoglobin 7-8 Monitor CBC Continue with iron supplementation Received Epo, Venofer DVT Px: SCDs Re: hx of GIB Code Status DNI/DNR: as per discussion with patient and family Disposition: LTAC Admission and Anticipated Discharge Date Admission Date: January 02, 2022 Subjective Follow-up for acute renal failure, etc. Seen sitting up in bed, comfortable, not distressed States that she feels fine overall no chest pain, dyspnea, palpitations, dizziness No other new symptoms Review of Systems Review of Systems: all noted and negative except for above Physical Exam Physical Exam: General- oriented x 3, not in distress, speaks in sentences with no effort or accessory muscle use Eyes- anicteric Neck- no JVD Lungs- clear BS BL, no rales/wheezes Heart- normal rate, regular rhythm; no murmurs Abdomen- normal bowel sounds, nondistended, soft, no tenderness Extremities- no pretibial edema, no calf tenderness Small area of ecchymosis on the left heel Neuro- alert, oriented x 3; no gross focal neurologic deficits Skin- warm & dry Results & Data Results & Data ([facility]) Vital Signs (Past 12 Hours) Vital Signs Temp Pulse Pulse Pulse Pulse Resp BP 02/17/22 13:03 36.7 C 130 H 18 110/87 02/17/22 10:45 84/56 L 02/17/22 08:14 130 H 02/17/22 08:09 88/58 L 02/17/22 07:42 36.5 C 130 H 22 02/17/22 03:56 128 H 20 02/17/22 02:53 36.8 C 135 H 16 BP Pulse Ox 02/17/22 13:03 97 02/17/22 10:45 02/17/22 08:14 02/17/22 08:09 02/17/22 07:42 68/48 L 97 02/17/22 03:56 97 02/17/22 02:53 76/53 L 96 all noted and reviewed including below (1) Congestive heart failure Heart failure chronicity: acute Heart failure type: combined systolic and diastolic Qualified Code(s): I50.41 - Acute combined systolic (congestive) and diastolic (congestive) heart failure
[2022-02-17] MEDS: ACETAMINOPHEN 325 MG TAB PO PRN ×2 (15:23→23:41)
[2022-02-18] MEDS: MULTIVITAMIN TAB PO SCH (07:32)
[2022-02-18] MEDS: METOPROLOL SUCC 25MG EXT REL TAB PO SCH ×4 (07:33→22:03)
[2022-02-18] MEDS: AMIODARONE 200 MG TAB PO SCH (07:33)
[2022-02-18] MEDS: FOLIC ACID 1 MG TAB PO SCH (07:33)
[2022-02-18] MEDS: ASCORBIC ACID 500 MG TAB PO SCH (07:33)
[2022-02-18] MEDS: FERROUS SULFATE 325 MG TAB PO SCH (07:33)
[2022-02-18] MEDS: FAMOTIDINE 10 MG TABLET PO SCH ×2 (07:33→22:02)
[2022-02-18] MEDS: LEVOTHYROXINE SODIUM 125 MCG TABLET PO SCH (07:34)
[2022-02-18] MEDS: CYANOCOBALAMIN (B-12) 500 MCG TABLET PO SCH (07:35)
[2022-02-18] MEDS: MIDODRINE HCL 10 MG TAB PO SCH ×3 (07:35→15:28)
[2022-02-18] MEDS: LIDOCAINE 5% 1 PATCH TD SCH (08:29)
[2022-02-18] MEDS: POLYETHYLENE (MIRALAX) 17 GM PACK PO SCH (08:29)
--- NOTE | 2022-02-18 09:49 | Nephrology Progress Note ---
Date of Service February 18, 2022 Assessment & Plan (1) ESRD (end stage renal disease) on dialysis: Plan: Anuric dialysis dependent ischemic ATN after several days of AF/F, tachycardia, and significant hypotension on midodrine and using albumin IV to support bp on txs and with pre-existing cardiorenal syndrome. Baseline creatinine before this admission was somewhat labile but generally to high ones. Her creatinine was 2 on admission 01/02. First day of dialysis January 10. >>>She is dialysis dependent, anuric, and now on dialysis with more than a month of treatments but remains very challenging to dialyse d/t overload and hypotension/tachycardia >>changed her dx from STACY to ESRD >needs dialysis with max dose midodrine and with prn IV albumin > not sure how she will do this as outpatient; prefer dialysis on monitor Daily to q48 hr basic metabolic panel -Continue tid Midodrine on max dose >>will for now reduce UF goals > Patient had dialysis Saturday. No indication for dialysis today. Next dialysis will be Saturday (2) Electrolyte and fluid disorder: Plan: plateau'd volume overload\anasarca in the setting of lower blood pressures as low as the 70s to 90s systolic and HR now 90-110s. some improvement in BP today w/ more ivf monitor for need for low sodium diet and fluid limit 1.2 L daily; so far diet limitations preclude this and she's done ok; not getting more than 1.2 L po flui ds in Strict intake and output to continue best we can Admission and Anticipated Discharge Date Admission Date: January 02, 2022 Subjective Seen in follow-up for acute renal failure on dialysis. Main complaint is weakness. She denies shortness of breath. Last dialysis was on Saturday Review of Systems Review of Systems: All other systems were reviewed and negative except as note d in HPI Physical Exam Physical Exam: General exam: Appears comfortable, no acute distress. On oxygen nasal cannula HEENT: Pupils are equal and reactive to light Neck: No JVD, neck is supple trachea is midline Respiratory system: Clear breath sounds bilaterally. Gastrointestinal: Abdomen is soft, non distended, non tender, bowel sounds are present CVS: Regular rate and rhythm. No murmurs, rubs or gallops Musculoskeletal: No joint or muscle tenderness Extremities: Non tender, no edema, peripheral pulses are present Neuro: Oriented, no tremors, no focal neurological deficits Skin: No rashes Results & Data ([facility]) Vital Signs (Past 12 Hours) Vital Signs Temp Pulse Pulse Pulse Resp BP Pulse Ox 02/18/22 07:00 36.4 C L 113 H 18 81/55 L 98 02/18/22 02:39 36.4 C L 123 H 18 78/52 L 96 02/17/22 23:48 119 H 02/17/22 22:17 36.4 C L 126 H 18 73/48 L 98 Laboratory Results 02/15/22 00:02
--- NOTE | 2022-02-18 17:02 | Hospitalist Progress Note ---
Date of Service February 18, 2022 Assessment & Plan (1) History of noncompliance with medical treatment: (2) Congestive heart failure: (3) Leg edema: Plan: per Dr. El's notes with addendum: Patient is a 76 yr female with H/O DM II, hypothyroidism, hyperlipidemia, COPD, on chronic oxygen baseline 3 liters oxygen, sleep apnea not on CPAP - intolerant as per the patient, paroxysmal atrial fibrillation, cor pulmonale, chronic essential hypertension, morbid obesity, irritable bowel syndrome, stage III chronic kidney disease, mixed stress and urge incontinence, chronic pain syndrome, TIA. Patient presented 01/01 to our ED with complaint of progressive fluid retention along with worsening shortness of breath, denies fever and aspiration, reports compliance with home medication. 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 Acute Metabolic Encephalopathy -POA Likely multifactorial: Hypercarbia,Uremia, Hyponatremia, Medications H/O COPD and sleep apnea and intolerance to CPAP and/or BiPAP Chronic Oxygen dependency: 3L at rest and 4L with activity at baseline Continue dialysis as per Nephrology Titrate Oxygen to keep Sats 88-92% given H/O COPD Baclofen discontinued Avoid Narcotic use Home oxycodone/OxyContin titrated down to 2.5 mg twice daily and then discontinued Continue lidocaine patch Intolerance to BiPAP. Patient has chronic hypercapnia Patient will need sleep study as outpatient ABG showed hypercarbia but nocturnal oximetry showed desaturation less than 88% for 2 minutes 26 seconds Denied by LTAC. Patient needs complex management given hemodynamic instability. Will need LTAC placement. 02/18 oriented x 3 today BP syst 80s this afternoon, asymptomatic monitor closely Acute on chronic heart failure with preserved ejection fraction Possible cardiorenal syndrome Patient reports increasing bilateral lower extremity swelling prior to arrival --11/29 ECHO:Ejection fraction greater than 70%, hyperdynamic left ventricle with normal left ventricle size and normal left ventricular wall thickness. ? Med compliance Appreciate Cardiology, Nephrology Input Pt did not diuresis with IV Lasix . Continue with strict I's and O's, daily weights, fluid restriction Midodrine added for hypotension Volume status to be addressed with dialysis Permanent Catheter for HD placed on 01/10/22 Dialysis as per Nephrology Currently on dialysis Saturday Received IV albumin, EPO and Venofer yesterday Increase midodrine to 10 mg 3 times daily given low blood pressure 02/18 continue Midodrine, Metoprolol monitor closely Concern for HCAP UTI / CAUTI : Pt w/ bob at home (per patient after her last discharge), urine Cx +ve for ESBL UTI CXR: Concern for developing fibrosis versus infectious process CTAP and CT chest: Suggestive of post inflammatory fibrosis, urinary bladder wall thickening with perivesicular stranding/correlate with urinalysis. Patient started on ertapenem 01/02-->Meropenem 01/04. 01/04 MRSA negative. Completed antibiotic course 02/18 no cough, sputum production STACY with CKD Baseline creatinine around 1.3-1.5 Cr 5.26>3.8>3.6>2.8>3.7 Appreciate nephrology recommendation on Dialysis currently Sleep apnea CPAP intolerant DM II ISS for now Monitor BGs Hypothyroidism Continue Levothyroxine H/O A. fib Afib RVR: Dofetilide discontinued Not on anticoagulation, Xarelto was stopped in past because of history of hematochezia Appreciate cardiology input and recommendation Continue amiodarone, metoprolol Also on midodrine for hypotension Needs follow-up with cardiology upon discharge Intermittently Tachycardic 02/18 Cardiology recommending to continue present regimen Dysphagia Aspiration Precautions Speech Eval completed Diet as per speech COPD Sleep apnea Does not use any CPAP COPD remains stable Patient has declined Incruse Ellipta in the past, continue with home inhalers BiPAP as needed Chronic pain Patient reports multiple joint pains Narcotics discontinued Avoid Narcotic use Voltaren Gel PRN--Discontinued due to rash Anemia of chronic disease: Baseline hemoglobin 7-8 Monitor CBC Continue with iron supplementation Received Epo, Venofer DVT Px: SCDs Re: hx of GIB Code Status DNI/DNR: as per discussion with patient and family Disposition: LTAC Admission and Anticipated Discharge Date Admission Date: January 02, 2022 Subjective ff up for acute renal failure, etc seen resting in bed, comfortable states she feels better today eating ok no chest pain, dyspnea, palpitations, dizziness no other symptoms Review of Systems Review of Systems: all noted and negative except for above Physical Exam Physical Exam: General- oriented x 3, not in distress, speaks in sentences with no effort or accessory muscle use Eyes- anicteric Neck- no JVD Lungs- clear breath sounds BL Heart- normal rate, regular rhythm; no murmurs Abdomen- normal bowel sounds, nondistended, soft, nontender Extremities- mild lower ext edema, no calf tenderness Neuro- alert, oriented x 3; no gross focal neurologic deficits Skin- warm & dry Results & Data Results & Data ([facility]) Vital Signs (Past 12 Hours) Vital Signs Temp Pulse Pulse Resp BP Pulse Ox 02/18/22 15:08 63 02/18/22 15:00 36.5 C 119 H 22 84/52 L 96 02/18/22 11:00 36.3 C L 124 H 20 72/42 L 93 02/18/22 07:00 36.4 C L 113 H 18 81/55 L 98 all noted and reviewed including below (1) Congestive heart failure Heart failure chronicity: acute Heart failure type: combined systolic and diastolic Qualified Code(s): I50.41 - Acute combined systolic (congestive) and diastolic (congestive) heart failure
[2022-02-19] MEDS: ACETAMINOPHEN 325 MG TAB PO PRN (00:01)
[2022-02-19] MEDS: ONDANSETRON INJ 2 MG/ML 2 ML VIAL IV PRN (04:40)
[2022-02-19] MEDS: LEVOTHYROXINE SODIUM 125 MCG TABLET PO SCH (06:15)
[2022-02-19] MEDS: MIDODRINE HCL 10 MG TAB PO SCH ×3 (08:02→18:14)
[2022-02-19] MEDS: ASCORBIC ACID 500 MG TAB PO SCH (08:02)
[2022-02-19] MEDS: CYANOCOBALAMIN (B-12) 500 MCG TABLET PO SCH (08:03)
[2022-02-19] MEDS: FOLIC ACID 1 MG TAB PO SCH (08:04)
[2022-02-19] MEDS: FERROUS SULFATE 325 MG TAB PO SCH (08:04)
[2022-02-19] MEDS: MULTIVITAMIN TAB PO SCH (08:04)
[2022-02-19] MEDS: FAMOTIDINE 10 MG TABLET PO SCH ×2 (08:04→22:00)
--- NOTE | 2022-02-19 10:59 | Dialysis Progress Note ---
Date of Service February 19, 2022 Assessment & Plan Admission and Anticipated Discharge Date Admission Date: January 02, 2022 Subjective Assessment & Plan (1) ESRD (end stage renal disease) on dialysis: Plan: Anuric dialysis dependent ischemic ATN after several days of AF/F, tachycardia, and significant hypotension on midodrine and using albumin IV to support bp on txs and with pre-existing cardiorenal syndrome. Baseline creatinine before this admission was somewhat labile but generally to high ones. Her creatinine was 2 on admission 01/02. First day of dialysis January 10. Tolerated 1.2L UF today with 2 doses of prn albumin >>>She is dialysis dependent, anuric, and now on dialysis with more than a month of treatments but remains very challenging to dialyse d/t overload and hypotension>>changing her dx from STACY to ESRD >needs dialysis on monitor with midodrine and with prn IV albumin > not sure how she will do this as outpatient Daily to q48 hr basic metabolic panel -Continue tid Midodrine on max dose challenging placement issues longer term at least at this point it will be very difficult to dialyze her as an outpatient d/t hemodynamics/blood pressures Care d/w hospitalist. We may have to get palliative med involved also as i am afraid she will never be able to get out of hospital. . Subjective no interval events; seen on dialysis . BP low as always and has Massive edema. Unable to get her discharged. Review of Systems Review of Systems: All systems reviewed & are unremarkable except as noted in Subjective Physical Exam Constitutional: well developed, + morbidly obese, + frail appearing and + edematous (dependent); no acute distress Eyes: EOM intact bilaterally ENMT: Ears: no external ear abnormality Nose: no external nose abnormality Mouth: + dry oral mucous membranes Neck: no nuchal rigidity Respiratory: normal respiratory effort Auscultation: + diminished lung sounds Cardiovascular: Rate/Rhythm: + irregularly irregular Extremities: + edema (trace BLE pretibial again less taut and 1++ hips/ dependent) Gastrointestinal (Abdomen): Inspection/Auscultation: normal bowel sounds Percussion/Palpation: abdomen soft; abdomen nontender Musculoskeletal: Extremities: + abnormal strength (Generalized weakness) Skin: no rashes, warm and dry Psychiatric: Orientation: oriented to person and oriented to place Insight: + limited insight Results & Data ([facility]) Vital Signs (Past 12 Hours) Vital Signs Temp Pulse Pulse Pulse Resp BP BP 02/19/22 10:30 99 H 96/64 L 02/19/22 10:00 90 96/75 L 02/19/22 09:30 115 H 137/79 02/19/22 09:02 36.8 C 120 H 02/19/22 08:14 36.0 C L 129 H 20 89/61 L 02/19/22 07:37 121 H 02/19/22 02:50 36.3 C L 118 H 22 99/70 L 02/18/22 23:00 36.5 C 108 H 20 70/39 L Pulse Ox 02/19/22 10:30 02/19/22 10:00 02/19/22 09:30 02/19/22 09:02 02/19/22 08:14 95 02/19/22 07:37 02/19/22 02:50 97 02/18/22 23:00 91
[2022-02-19] MEDS: METOPROLOL SUCC 25MG EXT REL TAB PO SCH ×4 (13:53→22:00)
[2022-02-19] MEDS: LIDOCAINE 5% 1 PATCH TD SCH (13:53)
[2022-02-19] MEDS ORDERED: SODIUM CHLORIDE 0.9% 1000ML 250 ML IV ONE (14:25)
[2022-02-19] MEDS: AMIODARONE 200 MG TAB PO SCH (14:42)
[2022-02-19] MEDS: POLYETHYLENE (MIRALAX) 17 GM PACK PO SCH (14:42)
[2022-02-19 15:20] LABS: Base Excess ABG 1.2 mEq/L (-9-1.8); HCO3 ABG 31 mmol/L (19-24); Oxygen Saturation ABG 95.8 % (90-95); PCO2 ABG 81 mmHg (35-46); PO2 ABG 96 mmHg (80-95)
[2022-02-19 15:21] LABS: Allen Test Pos (Pos)
--- NOTE | 2022-02-19 17:32 | Hospitalist Progress Note ---
Date of Service February 19, 2022 Assessment & Plan (1) History of noncompliance with medical treatment: (2) Congestive heart failure: (3) Leg edema: Plan: per Dr. El's notes with addendum: Patient is a 76 yr female with H/O DM II, hypothyroidism, hyperlipidemia, COPD, on chronic oxygen baseline 3 liters oxygen, sleep apnea not on CPAP - intolerant as per the patient, paroxysmal atrial fibrillation, cor pulmonale, chronic essential hypertension, morbid obesity, irritable bowel syndrome, stage III chronic kidney disease, mixed stress and urge incontinence, chronic pain syndrome, TIA. Patient presented 01/01 to our ED with complaint of progressive fluid retention along with worsening shortness of breath, denies fever and aspiration, reports compliance with home medication. 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 Acute Metabolic Encephalopathy -POA Likely multifactorial: Hypercarbia,Uremia, Hyponatremia, Medications H/O COPD and sleep apnea and intolerance to CPAP and/or BiPAP Chronic Oxygen dependency: 3L at rest and 4L with activity at baseline Continue dialysis as per Nephrology Titrate Oxygen to keep Sats 88-92% given H/O COPD Baclofen discontinued Avoid Narcotic use Home oxycodone/OxyContin titrated down to 2.5 mg twice daily and then discontinued Continue lidocaine patch Intolerance to BiPAP. Patient has chronic hypercapnia Patient will need sleep study as outpatient ABG showed hypercarbia but nocturnal oximetry showed desaturation less than 88% for 2 minutes 26 seconds Denied by LTAC. Patient needs complex management given hemodynamic instability. Will need LTAC placement. 5/2 oriented x 2 today but drowsy Declining BiPAP even if medically necessary Monitor closely Given to 50 IV normal saline bolus BP improving Acute on chronic heart failure with preserved ejection fraction Possible cardiorenal syndrome Patient reports increasing bilateral lower extremity swelling prior to arrival --11/29 ECHO:Ejection fraction greater than 70%, hyperdynamic left ventricle with normal left ventricle size and normal left ventricular wall thickness. ? Med compliance Appreciate Cardiology, Nephrology Input Pt did not diuresis with IV Lasix . Continue with strict I's and O's, daily weights, fluid restriction Midodrine added for hypotension Volume status to be addressed with dialysis Permanent Catheter for HD placed on 01/10/22 Dialysis as per Nephrology Currently on dialysis Saturday Received IV albumin, EPO and Venofer yesterday Increase midodrine to 10 mg 3 times daily given low blood pressure 02/19 continue Midodrine, Metoprolol monitor closely Concern for HCAP UTI / CAUTI : Pt w/ bob at home (per patient after her last discharge), urine Cx +ve for ESBL UTI CXR: Concern for developing fibrosis versus infectious process CTAP and CT chest: Suggestive of post inflammatory fibrosis, urinary bladder wall thickening with perivesicular stranding/correlate with urinalysis. Patient started on ertapenem 01/02-->Meropenem 01/04. 01/04 MRSA negative. Completed antibiotic course 02/18 no cough, sputum production STACY with CKD Baseline creatinine around 1.3-1.5 Cr 5.26>3.8>3.6>2.8>3.7 Appreciate nephrology recommendation on Dialysis currently Sleep apnea CPAP intolerant DM II ISS for now Monitor BGs Hypothyroidism Continue Levothyroxine H/O A. fib Afib RVR: Dofetilide discontinued Not on anticoagulation, Xarelto was stopped in past because of history of hematochezia Appreciate cardiology input and recommendation Continue amiodarone, metoprolol Also on midodrine for hypotension Needs follow-up with cardiology upon discharge Intermittently Tachycardic 02/19 Cardiology recommending to continue present regimen Dysphagia Aspiration Precautions Speech Eval completed Diet as per speech COPD Sleep apnea Does not use any CPAP COPD remains stable Patient has declined Incruse Ellipta in the past, continue with home inhalers BiPAP as needed Chronic pain Patient reports multiple joint pains Narcotics discontinued Avoid Narcotic use Voltaren Gel PRN--Discontinued due to rash Anemia of chronic disease: Baseline hemoglobin 7-8 Monitor CBC Continue with iron supplementation Received Epo, Venofer DVT Px: SCDs Re: hx of GIB Code Status DNI/DNR: as per discussion with patient and family Disposition: LTAC Admission and Anticipated Discharge Date Admission Date: January 02, 2022 Subjective ff up for acute renal failure, etc seen during HD weak, somewhat confused denies shortness of breath, chest pain BP low in the afternoon, also drowsy ABG done Ph 7.2, CO2 80 BiPAP ordered 250 cc IV bolus ordered Patient did not tolerate BiPAP after 7 minutes, removed to BiPAP re-evaluated at bedside Patient is weak, trying to talk, also repositioning her nasal cannula Patient's son Gilberto at the bedside Patient very adamant on not using the BiPAP at all, even if she is lethargic Discussed case, current status, plan of care with patient's son Gilberto at the bedside in detail Made aware of patient's tenuous status this evening He respects his mother's wish of not using the BiPAP tonight even if medically necessary Made aware that patient prognosis is guarded Confirmed DNR/DNI status Review of Systems Review of Systems: all noted and negative except for above Physical Exam Physical Exam: General- oriented x 2, not in distress, speaks in sentences with no effort or accessory muscle use Weak Eyes- anicteric Neck- no JVD Lungs- clear breath sounds bilaterally, no rales/wheezes Heart- normal rate, regular rhythm; no murmurs Abdomen- normal bowel sounds, nondistended, soft, nontender Extremities- (+) pretibial edema, no calf tenderness Neuro-drowsy, oriented x 2; no gross focal neurologic deficits Skin- warm & dry Results & Data Results & Data ([facility]) Vital Signs (Past 12 Hours) Vital Signs Temp Pulse Pulse Pulse Resp BP BP 02/19/22 17:16 95/79 L 02/19/22 16:31 138 H 02/19/22 15:10 36.1 C L 133 H 16 02/19/22 13:51 36.6 C 127 H 32 H 02/19/22 12:33 36.8 C 98 H 02/19/22 12:00 98 H 96/62 L 02/19/22 11:30 98 H 86/62 L 02/19/22 11:00 122 H 113/60 02/19/22 10:30 99 H 96/64 L 02/19/22 10:00 90 96/75 L 02/19/22 09:30 115 H 137/79 02/19/22 09:02 36.8 C 120 H 02/19/22 08:14 36.0 C L 129 H 20 02/19/22 07:37 121 H BP Pulse Ox 02/19/22 17:16 83/60 L 02/19/22 16:31 02/19/22 15:10 70/54 L 98 02/19/22 13:51 75/50 L 02/19/22 12:33 92/62 L 02/19/22 12:00 02/19/22 11:30 02/19/22 11:00 02/19/22 10:30 02/19/22 10:00 02/19/22 09:30 02/19/22 09:02 02/19/22 08:14 89/61 L 95 02/19/22 07:37 all noted and reviewed including below (1) Congestive heart failure Heart failure chronicity: acute Heart failure type: combined systolic and diastolic Qualified Code(s): I50.41 - Acute combined systolic (congestive) and diastolic (congestive) heart failure
[2022-02-19 19:05] LABS: Oxygen Saturation VBG 67.4 %; pH VBG 7.2 (7.36-7.41)
[2022-02-20] MEDS: LEVOTHYROXINE SODIUM 125 MCG TABLET PO SCH (06:25)
[2022-02-20] MEDS: LIDOCAINE 5% 1 PATCH TD SCH (09:18)
[2022-02-20] MEDS: ASCORBIC ACID 500 MG TAB PO SCH (09:19)
[2022-02-20] MEDS: POLYETHYLENE (MIRALAX) 17 GM PACK PO SCH (09:19)
[2022-02-20] MEDS: FERROUS SULFATE 325 MG TAB PO SCH (09:20)
[2022-02-20] MEDS: AMIODARONE 200 MG TAB PO SCH (09:20)
[2022-02-20] MEDS: FOLIC ACID 1 MG TAB PO SCH (09:21)
[2022-02-20] MEDS: FAMOTIDINE 10 MG TABLET PO SCH ×2 (09:21→22:10)
[2022-02-20] MEDS: MIDODRINE HCL 10 MG TAB PO SCH ×3 (09:21→17:05)
[2022-02-20] MEDS: MULTIVITAMIN TAB PO SCH (09:22)
[2022-02-20] MEDS: METOPROLOL SUCC 25MG EXT REL TAB PO SCH ×4 (09:22→21:06)
[2022-02-20] MEDS: CYANOCOBALAMIN (B-12) 500 MCG TABLET PO SCH (09:22)
--- NOTE | 2022-02-20 09:29 | Nephrology Progress Note ---
Date of Service February 20, 2022 Assessment & Plan Admission and Anticipated Discharge Date Admission Date: January 02, 2022 Subjective Assessment & Plan (1) ESRD (end stage renal disease) on dialysis: Plan: Anuric dialysis dependent ischemic ATN after several days of AF/F, tachycardia, and significant hypotension on midodrine and using albumin IV to support bp on txs and with pre-existing cardiorenal syndrome. Baseline creatinine before this admission was somewhat labile but generally to high ones. Her creatinine was 2 on admission 01/02. First day of dialysis January 10. Tolerated 1.2L UF today with 2 doses of prn albumin She is dialysis dependent, anuric, and now on dialysis with more than 1 month of treatments but remains very challenging to dialyse d/t overload and hypotension Given her low BP, bed bound status with morbid obesity and severe weakness impossible to dialyze outpt units. -Continue tid Midodrine on max dose Care d/w hospitalist. We may have to get palliative med involved more as i am afraid she will never be able to get out of hospital. Subjective no interval events; Sheis weak . BP low as always and has Massive edema. Unable to get her discharged. Review of Systems Review of Systems: All systems reviewed & are unremarkable except as noted in Subjective Physical Exam Constitutional: well developed, + morbidly obese, + frail appearing and + edematous (dependent); no acute distress Eyes: EOM intact bilaterally ENMT: Ears: no external ear abnormality Nose: no external nose abnormality Mouth: + dry oral mucous membranes Neck: no nuchal rigidity Respiratory: normal respiratory effort Auscultation: + diminished lung sounds Cardiovascular:L Rate/Rhythm: + irregularly irregular Extremities: + edema (trace BLE pretibial again less taut and 1++ hips/ dependent) Gastrointestinal (Abdomen): Inspection/Auscultation: normal bowel sounds Percussion/Palpation: abdomen soft; abdomen nontender Musculoskeletal: Extremities: + abnormal strength (Generalized weakness) Skin: no rashes, warm and dry Psychiatric: Orientation: oriented to person and oriented to place Insight: + limited insight Results & Data ([facility]) Vital Signs (Past 12 Hours) Vital Signs Temp Pulse Pulse Pulse Pulse Pulse Resp 02/20/22 07:27 123 H 02/20/22 07:00 36.1 C L 112 H 20 02/20/22 03:23 36.4 C L 123 H 02/20/22 00:00 113 H 02/19/22 22:55 36.5 C 127 H 30 H 02/19/22 21:28 131 H 28 H BP BP Pulse Ox 02/20/22 07:27 02/20/22 07:00 85/58 L 93 02/20/22 03:23 115/77 92 02/20/22 00:00 02/19/22 22:55 83/53 L 97 02/19/22 21:28 79/53 L
--- NOTE | 2022-02-20 10:03 | Palliative Care Progress Note ---
Date of Service February 20, 2022 Assessment & Plan (1) Palliative care encounter: Plan: Pt has been followed peripherally by palliative up to this point as she wished to pursue aggressive treatment measures. Pt has been receiving HD x 1 month, continues to be anuric. [facility]; however, pt continues to be more lethargic and less tolerant of HD. When I entered the room, the patient was quite lethargic; able to open her eyes and answer a few simple yes/no questions; however, not necessarily reliably or with meaningful conversation. She had an ABG done yesterday and Bipap was attempted for hypercapnia; however, the patient refused such. I was able to reach out to her son, Baltazar at [phone] and we talked at length. Dr. Rushing spoke with him last evening as well regarding her overall decline. When I spoke with Baltazar on the phone, he had spoken to his other two brothers and all agreed that she was declining and they are considering assisting her with the decision to discontinue hemodialysis. We talked about this more in depth and he plans to come in earlier this afternoon to discuss a full transition to comfort measures. Palliative will follow. (2) Generalized weakness: Plan: Pt is working with PT/OT. (3) Worsening renal function: Plan: Last HD on 02/18 Current creatinine 2.41 Followed by Nephrology who supports a palliative transition. (4) Hypercapnia: Plan: Worsening. Bipap was attempted last evening, but the patient did not tolerate. Currently compensated on ABG. Current CO2 53, this may be her normal. (5) Dysphagia: Plan: Was able to swallow oral pills today crushed in applesauce. Will monitor her progress. (6) Lumbago: Plan: Pt with chronic back pain. Pt also has chronic knee and shoulder pain. Also has Roxicodone 5 mg PO Q8 PRN and she has not utilized any doses over the past 24 hours. (7) POLST (Physician Orders for Life-Sustaining Treatment): Plan: POLST completed and original and copy placed on the chart. 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 Pt has been receiving HD x 1 month, continues to be anuric. [facility]; however, pt continues to be more lethargic and less tolerant of HD. See A/P for further details. Review of Systems Review of Systems: Unobtainable due to cognitive status and Unobtainable due to reduced consciousness Physical Exam Constitutional: + acute distress, + ill appearing, + obese and + frail appearing ENMT: Mouth: + dry oral mucous membranes Respiratory: + labored breathing, + uses accessory muscles and + cough Auscultation: + diminished lung sounds and + crackles Cardiovascular: Rate/Rhythm: + tachycardic Heart Sounds: normal S1, normal S2 and + murmur Extremities: normal capillary refill and + pedal edema Gastrointestinal (Abdomen): Inspection/Auscultation: + significant pannus Skin: + skin tightening, + ecchymosis and + pallor Psychiatric: Orientation: alert and oriented to person Insight: + poor insight Judgement: + poor judgement Results & Data ([facility]) Vital Signs (Past 12 Hours) Vital Signs Temp Pulse Pulse Pulse Pulse Resp BP 02/20/22 07:27 123 H 02/20/22 07:00 36.1 C L 112 H 20 02/20/22 03:23 36.4 C L 123 H 02/20/22 00:00 113 H 02/19/22 22:55 36.5 C 127 H 30 H 83/53 L BP Pulse Ox 02/20/22 07:27 02/20/22 07:00 85/58 L 93 02/20/22 03:23 115/77 92 02/20/22 00:00 02/19/22 22:55 97 PG Care Time/CCT Total # of Minutes Spent Total Time Spent with Patient: Total time spent is greater than 50% in coordination of care (as documented) at patient's floor/unit and/or counseling patient: 35 minutes Coding Level of Care Code 54886 Subseq Hosp Care Lvl 3 Diagnoses Palliative care encounter Z51.5 Generalized weakness R53.1 Worsening renal function N28.9 Hypercapnia R06.89 Dysphagia R13.10 Lumbago M54.50 POLST (Physician Orders for Life-Sustaining Treatment) Z78.9 Time Spent (min) 35
--- NOTE | 2022-02-20 16:34 | Hospitalist Progress Note ---
Date of Service February 20, 2022 Assessment & Plan (1) History of noncompliance with medical treatment: (2) Congestive heart failure: (3) Leg edema: Plan: per Dr. El's notes with addendum: Patient is a 76 yr female with H/O DM II, hypothyroidism, hyperlipidemia, COPD, on chronic oxygen baseline 3 liters oxygen, sleep apnea not on CPAP - intolerant as per the patient, paroxysmal atrial fibrillation, cor pulmonale, chronic essential hypertension, morbid obesity, irritable bowel syndrome, stage III chronic kidney disease, mixed stress and urge incontinence, chronic pain syndrome, TIA. Patient presented 01/01 to our ED with complaint of progressive fluid retention along with worsening shortness of breath, denies fever and aspiration, reports compliance with home medication. Of note, patient was recently discharged from hospital after being treated for respiratory failure secondary to COPD exacerbation secondary to COVID-19 infection to rehab and then transitioned to home 1 week ago [employer]. Acute Metabolic Encephalopathy -POA Likely multifactorial: Hypercarbia,Uremia, Hyponatremia, Medications H/O COPD and sleep apnea and intolerance to CPAP and/or BiPAP Chronic Oxygen dependency: 3L at rest and 4L with activity at baseline Continue dialysis as per Nephrology Titrate Oxygen to keep Sats 88-92% given H/O COPD Baclofen discontinued Avoid Narcotic use Home oxycodone/OxyContin titrated down to 2.5 mg twice daily and then discontinued Continue lidocaine patch Intolerance to BiPAP. Patient has chronic hypercapnia Patient will need sleep study as outpatient ABG showed hypercarbia but nocturnal oximetry showed desaturation less than 88% for 2 minutes 26 seconds Denied by LTAC. Patient needs complex management given hemodynamic instability. Will need LTAC placement. 5/2 oriented x 2 today but drowsy Declining BiPAP even if medically necessary Monitor closely Given to 50 IV normal saline bolus 5/3 very drowsy not following commands Palliative care re-evaluation done [employer] have discussed with patient's son Gilberto he is leaning towards comfort measures, but would like his brother to see their mother first also Acute on chronic heart failure with preserved ejection fraction Possible cardiorenal syndrome Patient reports increasing bilateral lower extremity swelling prior to arrival --11/29 ECHO:Ejection fraction greater than 70%, hyperdynamic left ventricle with normal left ventricle size and normal left ventricular wall thickness. ? Med compliance Appreciate Cardiology, Nephrology Input Pt did not diuresis with IV Lasix . Continue with strict I's and O's, daily weights, fluid restriction Midodrine added for hypotension Volume status to be addressed with dialysis Permanent Catheter for HD placed on 01/10/22 Dialysis as per Nephrology Currently on dialysis Saturday Received IV albumin, EPO and Venofer yesterday Increase midodrine to 10 mg 3 times daily given low blood pressure 02/20 continue Midodrine, Metoprolol monitor closely Concern for HCAP UTI / CAUTI : Pt w/ bob at home (per patient after her last discharge), urine Cx +ve for ESBL UTI CXR: Concern for developing fibrosis versus infectious process CTAP and CT chest: Suggestive of post inflammatory fibrosis, urinary bladder wall thickening with perivesicular stranding/correlate with urinalysis. Patient started on ertapenem 01/02-->Meropenem 01/04. 01/04 MRSA negative. Completed antibiotic course 02/20 no cough, sputum production STACY with CKD Baseline creatinine around 1.3-1.5 Cr 5.26>3.8>3.6>2.8>3.7 Appreciate nephrology recommendation on Dialysis currently Sleep apnea CPAP intolerant DM II ISS for now Monitor BGs Hypothyroidism Continue Levothyroxine H/O A. fib Afib RVR: Dofetilide discontinued Not on anticoagulation, Xarelto was stopped in past because of history of hematochezia Appreciate cardiology input and recommendation Continue amiodarone, metoprolol Also on midodrine for hypotension Needs follow-up with cardiology upon discharge Intermittently Tachycardic 02/20 Cardiology recommending to continue present regimen Dysphagia Aspiration Precautions Speech Eval completed Diet as per speech COPD Sleep apnea Does not use any CPAP COPD remains stable Patient has declined Incruse Ellipta in the past, continue with home inhalers BiPAP as needed Chronic pain Patient reports multiple joint pains Narcotics discontinued Avoid Narcotic use Voltaren Gel PRN--Discontinued due to rash Anemia of chronic disease: Baseline hemoglobin 7-8 Monitor CBC Continue with iron supplementation Received Epo, Venofer DVT Px: SCDs Re: hx of GIB Code Status DNI/DNR: as per discussion with patient and family Disposition: LTAC Admission and Anticipated Discharge Date Admission Date: January 02, 2022 Subjective ff up for acute renal failure, etc seen resting in bed, not in distress very drowsy tries to open eyes to verbal commands then goes back to sleep no signs of pain Review of Systems Review of Systems: all noted and negative except for above Physical Exam Physical Exam: General- drowsy, very weak, breathing with no effort or accessory muscle use Eyes- anicteric Neck- no JVD Lungs- clear BS BL, no rales Heart- normal rate, regular rhythm; no murmurs Abdomen- normal bowel sounds, nondistended, soft, nontender Extremities- mild pretibial edema, no calf tenderness Neuro- drowsy, oriented x 3; no gross focal neurologic deficits Skin- warm & dry Results & Data Results & Data ([facility]) Vital Signs (Past 12 Hours) Vital Signs Temp Pulse Pulse Pulse Resp BP Pulse Ox 02/20/22 15:31 86/54 L 02/20/22 15:27 36.2 C L 91 H 22 73/53 L 95 02/20/22 14:50 115 H 02/20/22 12:03 36.5 C 112 H 22 92/56 L 94 02/20/22 07:27 123 H 02/20/22 07:00 36.1 C L 112 H 20 85/58 L 93 all noted and reviewed including below (1) Congestive heart failure Heart failure chronicity: acute Heart failure type: combined systolic and diastolic Qualified Code(s): I50.41 - Acute combined systolic (congestive) and diastolic (congestive) heart failure
[2022-02-20] MEDS ORDERED: SODIUM CHLORIDE 0.9% 1000ML 500 ML IV ONE ×2 (20:54→22:36)
[2022-02-20 21:52] LABS: Base Excess ABG 0.7 mEq/L (-9-1.8); HCO3 ABG 30 mmol/L (19-24); Oxygen Saturation ABG 91.9 % (90-95); PCO2 ABG 81 mmHg (35-46); PO2 ABG 65 mmHg (80-95)
[2022-02-20 22:10] LABS: Allen Test Pos (Pos); pH ABG 7.19 (7.35-7.45)
--- NOTE | 2022-02-20 22:58 | Communication Note ---
Date of Service: February 20, 2022 Contacted by nurse because of hypotension and request to hold metoprolol despite tachycardia. Patient is on hemodialysis and has been recently in and out of the hospital for various issues, this most recent admission was for fluid overload and worsening renal function. She has been admitted since 01/02. Palliative has been peripherally involved in her care to help with goals of care, which is still somewhat uncertain. Patient has received a 500cc bolus of NSS and her BP went from 55/33, HR 114 to 68/63, HR 114. She is lethargic and can follow instructions but is unable to verbalize much outside of "[place]" and "[place]" She cannot keep her eyes open and pupils are round and equal bilaterally She is morbidly obese and generally weak. Pulmonary auscultation is very difficult give her body habitus Abdomen is soft, NTND Extremities are edematous including 1-2+ in bilateral legs to thighs. A CXR reveals pleural effusions and increased pulmonary congestion. ABG reveals 7.19/81/65 on 4L O2, peripheral pulse ox is reading 95% Contacted son by phone SonBaltazar said he was able to feed her something today Then, he said he had been talking with her about coming off dialysis. Pt said she is so tired. Sounded to him like she said to him, "just let me ." She had requested a nasal BIPAP which is not available. He is very uncertain about how to proceed and is waiting on family input I explained that she is in a critical status and that her BP will require pressors. Son gave me the permission to proceed with trying this overnight. I consulted ICU provider circulation sales representative. Spoke with RT and will again try BIPAP although she has voiced concerns to staff and family in the past about panicking. She was unable to tolerate BIPAP Transferred to ICU and placed on Levophed. Carli Meek, DO
[2022-02-20] MEDS ORDERED: NOREPINEPHRINE/D5W 8 MG/508 ML BAG IV SCH (23:45)
[2022-02-20] MEDS ORDERED: STAT IV Infusion **Titration per Protocol STA (23:51)
--- NOTE | 2022-02-20 23:52 | Critical Care Consultation ---
Date of Consultation February 20, 2022 Assessment & Plan (1) Admitted to intensive care unit: Reason Critically Ill: 77-year-old female with acute on chronic hypoxemic respiratory failure with hypercapnia with worsening respiratory distress with associated pulmonary edema as well as associated profound hypotension requiring close NEURO - * Somnolence: * Multifactorial in the setting of profound hypotension, hypercapnia, respiratory distress, hypoxia, etc. * Is able to answer some simple questions yes/no appropriately. Has difficulty with communicating secondary to respiratory distress. CARDIAC/VASCULAR - * Hypotension: * Acute on chronic in the end-stage renal disease patient. * Currently on midodrine 10 mg 3 times daily. * Acutely worsening hypotension requiring vasopressor support. Family was consulted prior to administration of vasopressors given patient's CODE STATUS. Family consents to pressors for now until they can all arrive. * Monitor on telemetry. RESPIRATORY - * Acute on chronic hypoxemic respiratory failure with hypercapnia, ZEYAD, COPD, OHS: * Patient with pulmonary edema on chest x-ray. Increasing O2 requirement. Persistent respiratory acidosis. Patient refuses use of BiPAP. She understands that if she does not use BiPAP, there is a good chance that she could . Patient refuses intubation. At this point, we will continue with nasal cannula and treat her respiratory distress symptoms as they arise. GI/NUTRITION - * Continue current diet. RENAL/LYTES - * ESRD on HD: * Patient has been hemodialysis dependent throughout hospitalization. Unfortunately, there has been difficulty removing volume as she becomes extremely hypotensive and they are unable to complete her hemodialysis treatments. During recent notes, nephrology has discussed with family discontinuing dialysis treatments as the patient has not tolerated them. There was discussion with nephrology as well as palliative care. Family is still deciding whether to discontinue dialysis treatments. - * Essentially anuric ENDO - * DMII * BSGs per unit protocol. ISS --> gtt per unit policy. HEME - * Anemia of chronic disease ID - * Patient's presentation more consistent with underlying decline in disease pathology versus acute infection. No fevers. Will check lactate. LINES/IV ACCESS - * PIVs x1 * RIGHT-sided chest a port. DVT PROPHYLAXIS - * SCDs CODE STATUS - * Patient is formally listed as a DNR/DNI on her chart. I did discuss with the patient as she was lucid initially and she is adamant that she would not want intubated. Additionally, no chest compressions or other heroic measures. I did discuss this with the patient's POA, Baltazar. He confirms that his mother is a DNR/DNI. We did discuss that her blood pressure has been extremely low and the conversation of pressors had been broached. While he does agree that this would be a more aggressive treatment, he does wish to be able to be with his mother bedside. Per his request, we will start low-dose Levophed and transferred the patient to the ICU until he was able to be with his mother bedside. * After family was present at bedside, had an extensive conversation with the patient's son and the patient. We did discuss that unfortunately, the patient is not tolerating hemodialysis secondary to ongoing hypotension despite 3 times daily doses of midodrine. Previous conversations to discontinue hemodialysis had been discussed. I was able to review a note that was written by palliative care on 01/15 which beautifully outlined the patient's wishes. Unfortunately, the patient has worsening pulmonary edema. She would benefit from CPAP which she adamantly declines. Additionally, given the pulmonary e momo and an uric state, she will require hemodialysis to remove volume. Unfortunately, to get her through hemodialysis, she required high-dose vasopressors which I am uncertain is consistent with the patient's goals of care at this time. At this point, I did discuss transitioning to comfort care with the patient and son. They would wish for family to be able to see her at least 1 last time. We will continue with low-dose pressors at this point. I would advise from discontinuing further aggressive measures at this point. We will continue to reassess family wishes, however at this point, there is very little that we have to offer other than supporting the patient's blood pressure as she has failed and/or would not wish to undergo the offered treatments. I have personally spent 45 minutes of critical care time in the direct management of this patient. This is a life/limb threatening event. This includes time spent evaluating patient, direct bedside care, chart review, placing orde rs, interpretation of diagnostic studies, discussion with consultants, patient, and family members, as well as other required patient management activities. This time is exclusive of all separately billable procedures, and teaching time and separate from and in addition to any other critical care service time. Thank you for allowing us to participate in the care of this patient. Please refer to my attending physician's documentation for any further recommendations. (2) Acute on chronic respiratory failure with hypoxia and hypercapnia: (3) ESRD (end stage renal disease) on dialysis: (4) COPD (chronic obstructive pulmonary disease): (5) ZEYAD (obstructive sleep apnea): History of Present Illness Attending Physician: Masood Rushing MD History of Present Illness Patient is a 77-year-old female with an extensive past medical history who has recently been hospitalized in this institution for the past several weeks. The patient is now dialysis dependent, but unfortunately she has been having issues with hypotension which has limited the amount of volume that can be taken off with her dialysis treatments. Additionally, the patient has past medical history of COPD requiring chronic oxygen therapy as well as obstructive sleep apnea and likely obesity hypoventilation syndrome. The patient refuses to wear BiPAP which has complicated her course as well. Unfortunately, over the last few days, the patient's mental status has declined and she has been persistently hypotensive at times. She has remained acidotic secondary to respiratory causes and CO2 retention. Unfortunately, throughout the night, the patient developed profound hypotension with systolic blood pressures in the 50s. Her mentation started to decline as well. She received IV fluid resuscitation. Her breathing continued to worsen. She refused BiPAP. ICU was consulted for evaluation for pressor use. Upon evaluation in the medical floor, the patient is alert, but difficult to understand. She is having some respiratory distress. She is unable to provide significant history of present illness. Allergies Allergy/AdvReac Type Severity Reaction Status Date / Time aspirin Allergy Severe HIVES, SOB Verified 01/02/22 00:45 Iodinated Contrast Media Allergy Severe "CAUSED Verified 01/02/22 00:45 ASTHMA ATTACK" & HIVES ipratropium Allergy Severe SHORTNESS Verified 01/02/22 00:45 OF BREATH metaproterenol [From Alupent] Allergy Severe EYES AND Verified 01/02/22 00:45 FACE SWELLING, SEVERE WHEEZING NSAIDS (Non-Steroidal Allergy Severe Hives Verified 01/02/22 00:45 Anti-Inflamma Penicillins Allergy Severe SOB, HIVES Verified 01/02/22 00:45 sotalol Allergy Severe increased Verified 01/02/22 00:45 breathing problems Sulfa (Sulfonamide Allergy Severe Anaphylaxis Verified 01/02/22 00:45 Antibiotics) tiotropium Allergy Severe SYMPTOMS Verified 01/02/22 00:45 [From Spiriva with GOT [employer]SE [employer]] INSTEAD OF BETTER WITH BREATHING arformoterol Allergy Intermediate TACHYCARDIA Verified 01/02/22 00:45 aspartame Allergy Intermediate HIVES, Verified 01/02/22 00:45 ITCHY ciprofloxacin Allergy Intermediate WHEEZING, Verified 01/02/22 00:45 NAUSEA clarithromycin [From Biaxin] Allergy Intermediate Unknown, ? Verified 01/02/22 00:45 WHEEZING , OR NAUSEA ? Fish Containing Products Allergy Intermediate BODY CAN'T Verified 01/02/22 00:45 ABSORB fish derived Allergy Intermediate Unknown Verified 01/02/22 00:45 latex Allergy Intermediate ITCHY/RASH Verified 01/02/22 00:45 nickel Allergy Intermediate RASH & Verified 01/02/22 00:46 BLISTERS pioglitazone [From Actos] Allergy Intermediate RETAINED Verified 01/02/22 00:46 FLUID povidone Allergy Intermediate BLISTER Verified 01/02/22 00:46 WITH TAPE shellfish derived Allergy Intermediate BODY CAN'T Verified 01/02/22 00:46 ABSORB, "SMELL LIKE A FISH" sucralose Allergy Intermediate Wheezing Verified 01/02/22 00:46 [From Splenda (sucralose)] adhesive Allergy Mild BLISTERS Verified 01/02/22 00:46 WITH TAPE apixaban [From Eliquis] Allergy Mild SEE NOTES Verified 01/02/22 00:46 BELOW banana Allergy Mild "FEELS Verified 01/02/22 00:46 LIKE PEACH FUZZ IN MOUTH" chlorhexidine Allergy Mild BLISTERY Verified 01/02/22 00:46 RASH clindamycin Allergy Mild rash Verified 01/02/22 00:46 doxycycline Allergy Mild rash Verified 01/02/22 00:46 psyllium [From Metamucil] AdvReac Intermediate bloating Verified 01/02/22 00:46 meperidine AdvReac Mild Gastrointestinal Verified 01/02/22 00:46 Upset, N/V metformin [From Riomet] AdvReac Mild DIARRHEA Verified 01/02/22 00:46 WITH MORE THAN 1 A DAY morphine AdvReac Mild Gastrointestinal Verified 01/02/22 00:46 Upset,N/V tapentadol [From Nucynta] AdvReac Mild Nausea and Verified 01/02/22 00:46 vomiting egg AdvReac Unknown Unknown Verified 01/13/22 14:14 Egg Derived AdvReac Unknown Unknown Verified 01/13/22 14:14 soy AdvReac Unknown Unknown Verified 01/13/22 14:14 soybean AdvReac Unknown Unknown Verified 01/13/22 14:14 stevioside [From Stevia] AdvReac Unknown Unknown Verified 01/23/22 10:51 Home Medications Medication Instructions Recorded Confirmed Type baclofen 10 mg tablet 5 mg PO BID 09/12/20 01/02/22 History cholecalciferol (vitamin D3) 25 25 mcg PO DAILY 09/12/20 01/02/22 History mcg (1,000 unit) capsule conjugated estrogens 0.625 mg/gram 0.625 mg VAGINAL 3XWK 09/12/20 01/02/22 History vaginal cream (Premarin) cyanocobalamin (vitamin B-12) 500 500 mcg PO DAILY 09/12/20 01/02/22 History mcg tablet dofetilide 250 mcg capsule 250 mcg PO BID 09/12/20 01/02/22 History hydrocortisone 2.5 % topical cream 1 applic [place] BID PRN 09/12/20 01/02/22 History with perineal applicator (Proctosol HC) meclizine 25 mg tablet 25 mg PO Q8H PRN 09/12/20 01/02/22 History metformin 500 mg tablet,extended 500 mg PO QPM 09/12/20 01/02/22 History release 24 hr multivitamin 1 tab PO DAILY 09/12/20 01/02/22 History potassium chloride 10 mEq 10 meq PO QAM 09/12/20 01/02/22 History tablet,extended release spironolactone 25 mg tablet 12.5 mg PO 3XWK 09/12/20 01/02/22 History torsemide 10 mg tablet 10 mg PO QAM 09/12/20 01/02/22 History acetaminophen 650 mg 650 mg PO UD PRN 09/28/20 01/02/22 History tablet,extended release (Tylenol 8 Hour) diclofenac sodium 2 % topical 1 packet TOPICAL UD PRN 09/28/20 01/02/22 History solution in packet magnesium 200 mg tablet 600 mg PO DAILY 09/28/20 01/02/22 History ondansetron HCl 4 mg tablet 4 mg PO Q8H PRN 09/28/20 01/02/22 History polyethylene glycol 3350 17 gram 17 g PO QAM PRN 09/28/20 01/02/22 History oral powder packet (Miralax) ferrous fumarate-vitamin C 200 mg 1 tab PO DAILY 03/01/21 01/02/22 History (66 mg iron)-125 mg tablet folic acid 1 mg tablet 1 mg PO DAILY 03/01/21 01/02/22 History nebulizers #1 ea 05/11/21 11/08/21 Rx albuterol sulfate 2.5 mg INHALATION Q4H PRN #180 ml 09/27/21 01/02/22 Rx benzonatate 100 mg capsule 100 mg PO TID PRN 11/08/21 01/02/22 History carvedilol 3.125 mg tablet 9.375 mg PO BID #180 tab 11/20/21 01/02/22 Rx levothyroxine 125 mcg tablet 125 mcg PO DAILYBB #30 tab 11/20/21 01/02/22 Rx (Synthroid) mupirocin 2 % topical ointment 1 applic TOPICAL BID PRN 11/28/21 01/02/22 History oxycodone 10 mg tablet 10 mg PO Q6H PRN 3 Days #10 tab 12/07/21 01/02/22 Rx oxycodone 20 mg tablet,crush 20 mg PO BID 01/02/22 01/02/22 History resistant,extended release 12 hr (OxyContin) pantoprazole 40 mg tablet,delayed 40 mg PO DAILY PRN 01/02/22 01/02/22 History release albuterol sulfate 90 mcg/actuation 2 inh INHALATION Q6H PRN #3 inhaler 01/10/22 Rx aerosol inhaler Patient History Medical History Asthma USED RESCUE INHALER LAST WEEKEND Back problem 3 DISCS PUSHING ON SCIATIC NERVE PER PT>CAUSES R LEG NUMBNESS AT TIMES LYING FLAT FOR EXTENDED TIME WILL CAUSE LEGS TO JUMP Chronic anticoagulation Chronic diastolic CHF (congestive heart failure) Chronic low blood pressure Chronic respiratory failure with hypoxia COPD (chronic obstructive pulmonary disease) Cor pulmonale, chronic Cushingoid side effect of steroids DM type 2 (diabetes mellitus, type 2) Dyslipidemia Dysphagia ESRD (end stage renal disease) on dialysis History of Meniere's disease History of TIA (transient ischemic attack) ? NEVER CONFIRMED (PT DOES NOT THINK SHE HAD TIA) Hx of vertigo Hypercapnia Hypothyroidism Impingement syndrome of both shoulders Long COVID Lumbago ZEYAD (obstructive sleep apnea) WEARS 3-4L CONT. Osteoarthritis Oxygen dependent 3-4L CONT. NC Palliative care encounter Paroxysmal atrial fibrillation REASON FOR XARELTO POLST (Physician Orders for Life-Sustaining Treatment) Reversed peristalsis Surgical History Family history of reaction to anesthesia SISTER-LOW BLOOD PRESSURE H/O arthroscopic knee surgery RIGHT History of anesthesia reaction BLOOD PRESSURE DROPPED WITH COLONOSCOPY AND GALLBLADDER SURGERY AND SENSITIVE GAG REFLEX History of appendectomy History of cataract surgery RT/LEFT History of cholecystectomy History of colonoscopy History of hysterectomy Family History Father Lung cancer Asthma Mother Diabetes Heart disease Brother Colon cancer Family history of colonic polyps Daughter No problems noted. 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 GENERAL - 77-year-old female appearing her stated age who is in moderate respiratory distress. HEAD - NC/AT. EYES - PERRL with EOMI bilaterally. Sclera anicteric. EARS - No deformities of external structures noted on gross examination bilaterally. NOSE - Midline and without cyanosis. MOUTH/OROPHARYNX - Without perioral cyanosis. NECK - Neck with FROM. LUNGS - Tachypneic. Coarse breath sounds noted throughout all lung solorzano. CARDIAC - RRR with S1/S2. No murmur, rubs, or gallops appreciated. No reproducible tenderness to palpation appreciated over the anterior chest wall. ABDOMEN - Abdominal contour obese without pulsations or visible masses. BS normoactive all four quadrants. No tenderness, palpable masses, hepatosplenomegaly, or ascites noted. EXTREMITIES - No clubbing or peripheral cyanosis. Moderate diffuse edema of the upper and lower extremities bilaterally. +2/5 radial pulses palpated throughout. NEUROLOGIC - Somnolent. Awakens and tries to answer questions. Nods head yes/no appropriately. Results & Data Results & Data ([facility]) Vital Signs (Past 12 Hours) Vital Signs Temp Pulse Pulse Pulse Pulse Resp BP 02/20/22 23:32 114 H 86/61 L 02/20/22 22:18 36.5 C 114 H 02/20/22 20:29 02/20/22 19:57 36.5 C 112 H 16 02/20/22 15:31 02/20/22 15:27 36.2 C L 91 H 22 02/20/22 14:50 115 H 02/20/22 12:03 36.5 C 112 H 22 BP Pulse Ox 02/20/22 23:32 02/20/22 22:18 55/33 L 02/20/22 20:29 70/50 L 02/20/22 19:57 52/34 L 98 02/20/22 15:31 86/54 L 02/20/22 15:27 73/53 L 95 02/20/22 14:50 02/20/22 12:03 92/56 L 94 Coding Level of Care Code Critical Care 1st 30-74 mins Diagnoses Admitted to intensive care unit Z78.9 Acute on chronic respiratory failure with hypoxia and hypercapnia J96.21; J96.22 ESRD (end stage renal disease) on dialysis N18.6; Z99.2 COPD (chronic obstructive pulmonary disease) J44.9 COPD type: unspecified COPD ZEYAD (obstructive sleep apnea) G47.33 Time Spent (min) 45 (1) COPD (chronic obstructive pulmonary disease) COPD type: unspecified COPD Qualified Code(s): J44.9 - Chronic obstructive pulmonary disease, unspecified
[2022-02-21] MEDS ORDERED: ICU PROTOCOL FOR HYPERGLYCEMIA PRN (00:05)
[2022-02-21 05:07] LABS: iSTAT Allen Test Pass; iSTAT Arterial Blood Gas HCO3 31 meg/L (19-24); iSTAT Arterial Blood Gas pCO2 98 mmHg (35-46); iSTAT Arterial Blood Gas pH 7.11 (7.35-7.45); iSTAT Arterial Blood Gas pO2 103 mmHg (80-95); iSTAT Carbon Dioxide 34 mmol/L (24-31); iSTAT Site R Radial
[2022-02-21] MEDS: LEVOTHYROXINE SODIUM 125 MCG TABLET PO SCH (05:51)
[2022-02-21 06:16] LABS: Hematocrit (blood only) 36.8 % (37-47); Hemoglobin 9.9 g/dL (12.0-16.0); Mean Corpuscular Hemoglobin 28.2 pg (25-34); Mean Corpuscular Hgb Conc 26.9 g/dL (32-36); Mean Corpuscular Volume 104.8 fL (80-100); Mean Platelet Volume 9.2 fL (7.4-10.4); Nucleated RBC # (auto) 0.04 K/uL (0-0); Nucleated RBC % (auto) 0.5 %; Platelet Count 229 K/uL (130-400); RDW Standard Deviation 84.4 fL (36.4-46.3); Red Blood Count 3.51 M/uL (4.2-5.4); White Blood Count 8.79 K/uL (4.8-10.8)
[2022-02-21 06:17] LABS: BUN Creatinine Ratio 2.4 (10-20); Calcium 8.4 mg/dl (8.5-10.1); Creatinine Clr Calc Pharmacy 14.4 ml/min; Est GFR (African American) 11.1 ml/min; Est GFR (Non-African American) 9.6 ml/min; Magnesium 1.8 mg/dl (1.7-2.4); Phosphorus 4.2 mg/dl (2.5-4.9)
[2022-02-21 06:27] LABS: Basophilic Stippling 1+; Hypochromasia Present
[2022-02-21 06:28] LABS: Basophils % (auto) 0.2 %; Eosinophils % (auto) 4.2 %; Immature Granulocytes % (auto) 0.7 %; Lymphocytes % (auto) 13.4 %; Monocytes % (auto) 12.1 %; Neutrophils % (auto) 69.4 %
[2022-02-21 06:31] LABS: Basophils # (auto) 0.02 K/uL (0-0.2); Eosinophils # (auto) 0.37 K/uL (0-0.5); Immature Granulocytes # (auto) 0.06 K/uL (0.00-0.02); Lymphocytes # (auto) 1.18 K/uL (1.2-3.4); Monocytes # (auto) 1.06 K/uL (0.11-0.59)
--- NOTE | 2022-02-21 07:01 | XRay Report ---
XR chest 1V portable HISTORY: 77 years-old Female lethargic acute weakness COMPARISON: Chest radiograph 02/12/2022, chest CT 01/02/2022. TECHNIQUE: Portable AP view of the chest FINDINGS: The cardiac silhouette is enlarged. Emphysema. The patient is rotated towards the right. Dual lumen r ight IJ hemodialysis catheter is noted with distal tip in the expected location of the mid SVC. Right perihilar and suprahilar opacities are noted. No pneumothorax. Pulmonary vascular congestion with in terstitial coarsening. Right greater than left layering pleural effusions with bibasilar consolidatio n. IMPRESSION: 1. Cardiomegaly with suggested pulmonary edema. 2. Right greater than left layering pleural effusions with right perihilar and bibasilar consolidatio n. 3. Emphysema with fibrotic changes are again noted. ACT 112: Negative or not required by law. The above report was generated using voice recognition software. It may contain grammatical, syntax o r spelling errors. Electronically signed by: Jong Sommers M.D. 02/21/2022 6:59 AM
--- NOTE | 2022-02-21 09:17 | Communication Note ---
Date of Service: February 21, 2022 Patient with increased lethargy and hypotension occurred overnight. The overnight hospitalist contacted the patients son, Baltazar, who agreed to ICU transfer for inotropic support. I was able to contact the patients son, Baltazar, through the SHERIFF who arranged the conference call. Him and his brother, Malachi, were able to visit with her in the middle of the night. They do recognize that her overall condition is grave with no real signs of meaningful recovery. His other brother is currently traveling in from [place], arriving around 1700 today. The goal is to remain on pressors with no further escalation of care in the event of further decline, including discontinuation of hemodialysis with no further attempts. Should the patient decline int he meantime, we will transition to comfort focused care. The family wishes to avoid Morphine, so we will ensure she receives Dilaudid for any pain/air hunger, which is appropriate since she has renal failure. Dilaudid will avoid opioid toxicity as well. Total time spent 35 minutes of > 50% of that time spent holding a family meeting and conference call, along with discussing care plan with IDT. Palliative will follow.
[2022-02-21] MEDS: AMIODARONE 200 MG TAB PO SCH (09:28)
[2022-02-21] MEDS: MIDODRINE HCL 10 MG TAB PO SCH (09:28)
[2022-02-21] MEDS: CYANOCOBALAMIN (B-12) 500 MCG TABLET PO SCH (09:29)
[2022-02-21] MEDS: FAMOTIDINE 10 MG TABLET PO SCH (09:29)
[2022-02-21] MEDS: METOPROLOL SUCC 25MG EXT REL TAB PO SCH (09:29)
[2022-02-21] MEDS ORDERED: HYDROmorphone INJ 0.5 MG/0.5 ML SYR IV PRN ×2 (09:29→19:56)
--- NOTE | 2022-02-21 09:37 | XRay Report ---
XR chest 1V portable CLINICAL HISTORY: f/u COMPARISON STUDY: Chest CT January 02, 2022. Chest radiograph February 20, 2022. FINDINGS: Dual lumen right internal jugular central line is in place. A small to moderate right pleur al effusion has increased in size. There may be a trace left pleural effusion. No pneumothorax. Cardi omegaly is unchanged. Interstitial thickening has progressed. Right lung airspace opacities have prog ressed. IMPRESSION: 1. Progression of suspected pulmonary edema. Increase in right lung airspace opacities which could re flect alveolar edema or superimposed pneumonia. 2. Increase in size of a small to moderate right pleural effusion. ACT 112: Negative or not required by law. Electronically signed by: Pascual Santoro M.D. 02/21/2022 9:35 AM
--- NOTE | 2022-02-21 10:12 | Nephrology Progress Note ---
Date of Service February 21, 2022 Assessment & Plan Admission and Anticipated Discharge Date Admission Date: January 02, 2022 Subjective Assessment & Plan (1) ESRD (end stage renal disease) on dialysis: Plan: Anuric dialysis dependent ischemic ATN. She is dialysis dependent, anuric, and now very sick--terminal. Palliative med note reviewed. Now Comfort care. No Dialysis. Subjective Declined even more. Now in ICU. Also comfort care now. Review of Systems Review of Systems: All systems reviewed & are unremarkable except as noted in Subjective Physical Exam Constitutional: well developed, + morbidly obese, + frail appearing and + edematous (dependent); no acute distress Eyes: EOM intact bilaterally ENMT: Ears: no external ear abnormality Nose: no external nose abnormality Mouth: + dry oral mucous membranes Neck: no nuchal rigidity Respiratory: normal respiratory effort Auscultation: + diminished lung sounds Cardiovascular: Rate/Rhythm: + irregularly irregular Extremities: + edema (trace BLE pretibial again less taut and 1++ hips/ dependent) Gastrointestinal (Abdomen): Inspection/Auscultation: normal bowel sounds Percussion/Palpation: abdomen soft; abdomen nontender Musculoskeletal: Extremities: + abnormal strength (Generalized weakness) Skin: no rashes, warm and dry Psychiatric: Orientation: oriented to person and oriented to place Insight: + limited insight Results & Data ([facility]) Vital Signs (Past 12 Hours) Vital Signs Temp Pulse Pulse Pulse Resp BP BP 02/21/22 09:00 101/72 02/21/22 08:59 118 H 29 H 02/21/22 08:45 126 H 30 H 103/74 02/21/22 08:30 124 H 25 H 95/73 L 02/21/22 08:15 121 H 26 H 100/66 02/21/22 08:10 115 H 30 H 02/21/22 08:00 123 H 28 H 109/72 02/21/22 07:45 118 H 21 108/75 02/21/22 07:30 120 H 30 H 103/75 02/21/22 07:15 116 H 23 106/70 02/21/22 07:00 108 H 32 H 02/21/22 06:45 107 H 33 H 86/65 L 02/21/22 06:30 115 H 32 H 111/69 02/21/22 06:15 111 H 29 H 110/69 02/21/22 06:00 109 H 33 H 110/61 02/21/22 05:46 116 H 28 H 105/62 02/21/22 05:30 110 H 22 80/49 L 02/21/22 05:15 111 H 30 H 75/55 L 02/21/22 05:00 105 H 21 91/53 L 02/21/22 04:50 109 H 18 02/21/22 04:46 121 H 28 H 96/55 L 02/21/22 04:30 114 H 28 H 90/58 L 02/21/22 04:15 119 H 30 H 92/60 L 02/21/22 04:00 36.6 C 111 H 33 H 83/58 L 02/21/22 03:45 116 H 18 90/57 L 02/21/22 03:30 118 H 23 83/58 L 02/21/22 03:15 112 H 41 H 88/59 L 02/21/22 03:00 121 H 35 H 92/60 L 02/21/22 02:45 121 H 27 H 105/58 L 02/21/22 02:30 112 H 28 H 89/59 L 02/21/22 02:15 121 H 45 H 98/59 L 02/21/22 02:00 102 H 24 83/64 L 02/21/22 01:45 123 H 26 H 80/59 L 02/21/22 01:30 124 H 37 H 104/62 02/21/22 01:15 114 H 26 H 90/60 L 02/21/22 01:00 117 H 28 H 86/64 L 02/21/22 00:45 122 H 38 H 88/56 L 02/21/22 00:30 109 H 26 H 02/21/22 00:17 36.6 C 114 H 35 H 70/50 L 02/21/22 00:05 111 H 02/21/22 00:00 122 H 28 H 02/20/22 23:32 114 H 86/61 L 02/20/22 22:18 36.5 C 114 H BP Pulse Ox 02/21/22 09:00 02/21/22 08:59 96 02/21/22 08:45 96 02/21/22 08:30 99 02/21/22 08:15 94 02/21/22 08:10 97 02/21/22 08:00 95 05/04/22 07:45 97 02/21/22 07:30 100 02/21/22 07:15 02/21/22 07:00 93 02/21/22 06:45 93 02/21/22 06:30 94 02/21/22 06:15 95 02/21/22 06:00 95 02/21/22 05:46 96 02/21/22 05:30 97 02/21/22 05:15 93 02/21/22 05:00 98 02/21/22 04:50 96 02/21/22 04:46 98 02/21/22 04:30 97 02/21/22 04:15 97 02/21/22 04:00 96 02/21/22 03:45 94 02/21/22 03:30 96 02/21/22 03:15 97 02/21/22 03:00 96 02/21/22 02:45 94 02/21/22 02:30 94 02/21/22 02:15 94 02/21/22 02:00 95 02/21/22 01:45 02/21/22 01:30 95 02/21/22 01:15 93 02/21/22 01:00 94 02/21/22 00:45 98 02/21/22 00:30 97 02/21/22 00:17 98 02/21/22 00:05 02/21/22 00:00 02/20/22 23:32 02/20/22 22:18 55/33 L
[2022-02-21] MEDS ORDERED: LORazepam 2 MG/1 ML VIAL IV PRN (12:48)
[2022-02-21] MEDS ORDERED: GLYCOPYRROLATE 0.2 MG/ML VIAL IV PRN (12:48)
--- NOTE | 2022-02-21 13:06 | Critical Care Progress Note ---
Date of Service February 21, 2022 Assessment & Plan (1) Admitted to intensive care unit: Plan: Reason Critically Ill: 77-year-old female with acute on chronic hypoxemic respiratory failure with hypercapnia with worsening respiratory distress with associated pulmonary edema as well as associated profound hypotension requiring close NEURO - * Somnolence: * Transitioning to comfort care CARDIAC/VASCULAR - * Hypotension: * Acute on chronic in the end-stage renal disease patient. * Currently on midodrine 10 mg 3 times daily. * Acutely worsening hypotension requiring vasopressor support. Family was consulted prior to administration of vasopressors given patient's CODE S TATUS. Family consents to pressors for now until they can all arrive. * Monitor on telemetry. RESPIRATORY - * Acute on chronic hypoxemic respiratory failure with hypercapnia, ZEYAD, COPD, OHS: * Discontinued BiPAP GI/NUTRITION - * Continue current diet for comfort RENAL/LYTES - * ESRD on HD: * Discontinuing dialysis - * Essentially anuric ENDO - * DMII * BSGs per unit protocol. ISS --> gtt per unit policy. HEME - * Anemia of chronic disease LINES/IV ACCESS - * PIVs x1 * RIGHT-sided chest a port. DVT PROPHYLAXIS - * SCDs CODE STATUS - * DNR/DNI, maximum therapy achieved, will transition to comfort care when additional family arrives at bedside. -Patient appears to be actively dying (2) Acute on chronic respiratory failure with hypoxia and hypercapnia: (3) ESRD (end stage renal disease) on dialysis: (4) COPD (chronic obstructive pulmonary disease): (5) ZEYAD (obstructive sleep apnea): Admission and Anticipated Discharge Date Admission Date: January 02, 2022 Subjective Patient is somnolent, after discussion with palliative care we are at maximum therapeutic intervention continuing current treatment plan until additional family can arrive at bedside and then will transition to comfort Review of Systems Review of Systems: Unobtainable due to reduced consciousness Physical Exam Physical Exam: General: Somnolent Skin: Cool Head: Atraumatic Ears, nose, mouth and throat: airway patent Cardiovascular: Increased capillary refill Respiratory: Snoring respirations Gastrointestinal: Non distended Musculoskeletal: No deformity Results & Data Results & Data ([facility]) Vital Signs (Past 12 Hours) Vital Signs Temp Pulse Pulse Resp BP Pulse Ox 02/21/22 10:30 120 H 28 H 105/67 92 02/21/22 10:15 114 H 20 104/73 58 L 02/21/22 10:00 122 H 31 H 88 L 02/21/22 09:45 111 H 25 H 110/88 84 L 02/21/22 09:30 120 H 34 H 120/82 96 02/21/22 09:15 123 H 31 H 113/77 99 02/21/22 09:00 115 H 25 H 101/72 97 02/21/22 08:59 118 H 29 H 96 02/21/22 08:45 126 H 30 H 103/74 96 02/21/22 08:30 124 H 25 H 95/73 L 99 02/21/22 08:15 121 H 26 H 100/66 94 02/21/22 08:10 115 H 30 H 97 02/21/22 08:00 123 H 28 H 109/72 95 02/21/22 07:45 118 H 21 108/75 97 02/21/22 07:30 120 H 30 H 103/75 100 02/21/22 07:15 116 H 23 106/70 02/21/22 07:00 108 H 32 H 93 02/21/22 06:45 107 H 33 H 86/65 L 93 02/21/22 06:30 115 H 32 H 111/69 94 02/21/22 06:15 111 H 29 H 110/69 95 02/21/22 06:00 109 H 33 H 110/61 95 02/21/22 05:46 116 H 28 H 105/62 96 02/21/22 05:30 110 H 22 80/49 L 97 02/21/22 05:15 111 H 30 H 75/55 L 93 02/21/22 05:00 105 H 21 91/53 L 98 02/21/22 04:50 109 H 18 96 02/21/22 04:46 121 H 28 H 96/55 L 98 02/21/22 04:30 114 H 28 H 90/58 L 97 02/21/22 04:15 119 H 30 H 92/60 L 97 02/21/22 04:00 36.6 C 111 H 33 H 83/58 L 96 02/21/22 03:45 116 H 18 90/57 L 94 02/21/22 03:30 118 H 23 83/58 L 96 02/21/22 03:15 112 H 41 H 88/59 L 97 02/21/22 03:00 121 H 35 H 92/60 L 96 02/21/22 02:45 121 H 27 H 105/58 L 94 02/21/22 02:30 112 H 28 H 89/59 L 94 02/21/22 02:15 121 H 45 H 98/59 L 94 02/21/22 02:00 102 H 24 83/64 L 95 02/21/22 01:45 123 H 26 H 80/59 L 02/21/22 01:30 124 H 37 H 104/62 95 02/21/22 01:15 114 H 26 H 90/60 L 93 Coding Level of Care Code 31210 Subseq Hosp Care Lvl 3 Diagnoses Admitted to intensive care unit Z78.9 Acute on chronic respiratory failure with hypoxia and hypercapnia J96.21; J96 .22 ESRD (end stage renal disease) on dialysis N18.6; Z99.2 COPD (chronic obstructive pulmonary disease) J44.9 COPD type: unspecified COPD ZEYAD (obstructive sleep apnea) G47.33 (1) COPD (chronic obstructive pulmonary disease) COPD type: unspecified COPD Qualified Code(s): J44.9 - Chronic obstructive pulmonary disease, unspecified
--- NOTE | 2022-02-21 15:35 | Hospitalist Progress Note ---
Date of Service February 21, 2022 Assessment & Plan (1) History of noncompliance with medical treatment: (2) Congestive heart failure: (3) Leg edema: Plan: Patient is a 76 yr female with H/O DM II, hypothyroidism, hyperlipidemia, COPD, on chronic oxygen baseline 3 liters oxygen, sleep apnea not on CPAP - intolerant as per the patient, paroxysmal atrial fibrillation, cor pulmonale, chronic essential hypertension, morbid obesity, irritable bowel syndrome, stage III chr onic kidney disease, mixed stress and urge incontinence, chronic pain syndrome, TIA. Patient presented 01/01 to our ED with complaint of progressive fluid retention along with worsening shortness of breath, denies fever and aspiration, reports compliance with home medication. 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 Acute Metabolic Encephalopathy -POA Likely multifactorial: Hypercarbia,Uremia, Hyponatremia, Medications H/O COPD and sleep apnea and intolerance to CPAP and/or BiPAP Chronic Oxygen dependency: 3L at rest and 4L with activity at baseline Acute on chronic heart failure with preserved ejection fraction Possible cardiorenal syndrome Concern for HCAP UTI / CAUTI : Pt w/ bob at home (per patient after her last discharge), urine Cx +ve for ESBL UTI STACY with CKD Sleep apnea CPAP intolerant DM II Hypothyroidism Afib RVR: Dysphagia COPD Sleep apnea Chronic pain Anemia of chronic disease: Patient deteriorated despite aggressive management Dialysis discontinue Appreciate palliative care input Family understands and agrees with current management Currently on comfort measures only Plan transfer out of ICU as able Code Status DNI/DNR Admission and Anticipated Discharge Date Admission Date: January 02, 2022 Subjective Patient is seen and examined at bedside Currently transition to comfort measures Discussed with palliative care today Patient lethargic during my encounter Unable to provide much history Family updated by Palliative Care Review of Systems Review of Systems: Unobtainable due to reduced consciousness Physical Exam Physical Exam: Physical Exam: Vitals signs as noted above General Appearance:Morbidly Obese, no apparent distress, ill appearing, Lethar gic Head: normocephalic, Atraumatic Eyes: normal inspection, EOMI Neck: supple, Trachea midline Respiratory/Chest: Decreased breath sounds, CTA, No accessory muscle use Cardiovascular: Irregularly Irregular, No murmur, +Tachycardia Abdomen/GI:Soft, Non tender, Bowel sounds present Extremities/Musculoskeletal:normal inspection, B/L LE edema Neurologic/Psych:grossly no focal neurological deficits, Lethargic Skin: normal color, warm Results & Data Results & Data ([facility]) Vital Signs (Past 12 Hours) Vital Signs Temp Pulse Pulse Resp BP Pulse Ox 02/21/22 15:00 118 H 22 94 02/21/22 14:34 120 H 31 H 102/70 96 02/21/22 14:00 116 H 27 H 96 02/21/22 13:00 107 H 30 H 100 02/21/22 12:00 108 H 25 H 98 02/21/22 11:15 101 H 29 H 113/61 95 02/21/22 11:00 120 H 28 H 115/70 95 02/21/22 10:45 115 H 26 H 103/65 95 02/21/22 10:30 120 H 28 H 105/67 92 02/21/22 10:15 114 H 20 104/73 58 L 02/21/22 10:00 122 H 31 H 88 L 02/21/22 09:45 111 H 25 H 110/88 84 L 02/21/22 09:30 120 H 34 H 120/82 96 02/21/22 09:15 123 H 31 H 113/77 99 02/21/22 09:00 115 H 25 H 101/72 97 02/21/22 08:59 118 H 29 H 96 02/21/22 08:45 126 H 30 H 103/74 96 02/21/22 08:30 124 H 25 H 95/73 L 99 02/21/22 08:15 121 H 26 H 100/66 94 02/21/22 08:10 115 H 30 H 97 02/21/22 08:00 123 H 28 H 109/72 95 02/21/22 07:45 118 H 21 108/75 97 02/21/22 07:30 120 H 30 H 103/75 100 02/21/22 07:15 116 H 23 106/70 02/21/22 07:00 108 H 32 H 93 02/21/22 06:45 107 H 33 H 86/65 L 93 02/21/22 06:30 115 H 32 H 111/69 94 02/21/22 06:15 111 H 29 H 110/69 95 02/21/22 06:00 109 H 33 H 110/61 95 02/21/22 05:46 116 H 28 H 105/62 96 02/21/22 05:30 110 H 22 80/49 L 97 02/21/22 05:15 111 H 30 H 75/55 L 93 02/21/22 05:00 105 H 21 91/53 L 98 02/21/22 04:50 109 H 18 96 02/21/22 04:46 121 H 28 H 96/55 L 98 02/21/22 04:30 114 H 28 H 90/58 L 97 02/21/22 04:15 119 H 30 H 92/60 L 97 02/21/22 04:00 36.6 C 111 H 33 H 83/58 L 96 02/21/22 03:45 116 H 18 90/57 L 94 Laboratory Results Short CBC 02/21/22 Range/Units 05:18 WBC 8.79 (4.8-10.8) K/uL Hgb 9.9 L (12.0-16.0) g/dL Hct 36.8 L (37-47) % Plt Count 229 (130-400) K/uL BMP 02/21/22 02/21/22 02/21/22 05:18 06:53 08:16 Sodium 138 Potassium TNP 3.9 Chloride 103 Carbon Dioxide 31 BUN 10 Creatinine 4.25 H Glucose 153 H Calcium 8.4 L (1) Congestive heart failure Heart failure chronicity: acute Heart failure type: combined systolic and diastolic Qualified Code(s): I50.41 - Acute combined systolic (congestive) and diastolic (congestive) heart failure
[2022-02-21] MEDS: HYDROmorphone INJ 1 MG/ML SYRINGE IV PRN ×4 (20:52→21:49)
[2022-02-21] MEDS: LORazepam 2 MG/1 ML VIAL IV PRN ×3 (20:52→21:48)
--- NOTE | 2022-02-21 22:12 | Death Pronouncement Note ---
Date of Service February 21, 2022 Pronouncement Note Admission Date Admission Date: January 02, 2022 Date and Time of Date of : 02/21/22 Time of : 22:02 PCOD Preliminary cause of : Respiratory failure Contributing Factors (1) History of noncompliance with medical treatment: (2) Congestive heart failure: (3) Leg edema: Hospital Course Hospital Course: Patient admitted to this institution on 01/02 with worsening peripheral edema and renal failure. Eventually, throughout her stay, the patient required placement of permacath for dialysis. She is essentially been dialysis dependent throughout her stay. Unfortunately, she has become increasingly hypotensive and dialysis treatments have been ineffective as they have been unable to remove amounts of volume to help with her symptoms. 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 Decision was made to place the patient on Levophed briefly until family come in for end-of-life decisions. Family made decision to proceed with comfort measures only. Patient at 2202. Additional Data Confirmation of : no pulse, no respirations, no heart sounds and pupils fixed and dilated Family: at bedside Attending/PCP notified?: No Attending physician: Alex El MD Was code activated?: No Autopsy requested?: No train examiner notified?: No Organ bank notified?: Yes Advance directives: No Coding Level of Care Code D/C DAY MANAGEMENT <30 MINS Diagnoses History of noncompliance with medical treatment Z91.19 Congestive heart failure I50.41 Heart failure chronicity: acute Heart failure type: combined systolic and diastolic Leg edema R60.0 Time Spent (min) 25
--- NOTE | 2022-02-22 07:35 | Discharge Summary ---
Date of Service February 22, 2022 Admission HPI Per Admitting Provider History obtained from patient and records. Medical history significant for chronic respiratory failure secondary to COPD on home O2, chronic diastolic heart failure, EF 70% 2021, cor pulmonale as per records, ZEYAD (CPAP intolerance), HTN, PAF not on anticoagulation secondary to L GIB, TIA, DM2 on oral medications , chronic pain on narcotics, CRI (baseline creatinine 1.3-1.5 ), chronic anemia (baseline hemoglobin 7-8), recurrent cystitis/cystocele, hx ESBL UTI, history of pancreatitis as per records, Hypothyroidism, IBS, constipation predominant. Monthly admissions since October 2021. Recent confinement last month for respiratory failure secondary to COPD exacerbation secondary to COVID-19 infection. Patient discharged to rehab facility and transitioned to home last week. As per patient, she was not fully well following discharge from the hospital last month. Still with shortness of breath, abdominal distention and leg swelling. Achy abdominal pain going to the back. At home, patient noted progressive fluid retention along with worsening shortness of breath. Junky cough symptoms, denies aspiration. No fever, no chills. No chest pain. Patient compliant with home medications. No OTC NSAID intake. IV Lasix administered at the ER. 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 Admission Exam Per Admitting Provider Physical Exam Physical Exam: GENERAL: Morbidly obese, cushingoid, no respiratory distress SKIN: Pallor, warm HEENT: Pale palpebral conjunctivae, no ptosis, dry buccal mucosa, nasal cannula in place NECK : Supple, short neck, no tenderness CHEST : Decreased breath sounds, no tenderness HEART : Irregular, no obvious murmurs ABDOMEN: Marked distention, nontender EXTREMITIES : Bilateral LE swelling, no LE tenderness, no other conspicuous deformities noted NEUROLOGIC : Coherent, no facial asymmetry, no other gross focality Principal Diagnosis Acute Metabolic Encephalopathy Likely multifactorial: Hypercarbia,Uremia, Hyponatremia, Medications H/O COPD and sleep apnea and intolerance to CPAP and/or BiPAP Chronic Oxygen dependency: 3L at rest and 4L with activity at baseline Acute on chronic heart failure with preserved ejection fraction Possible cardiorenal syndrome Concern for HCAP UTI / CAUTI : Pt w/ bob at home (per patient after her last discharge), urine Cx +ve for ESBL UTI STACY with CKD Sleep apnea CPAP intolerant DM II Hypothyroidism Afib RVR: Dysphagia COPD Sleep apnea Chronic pain Anemia of chronic disease Discharge Data Allergies Allergy/AdvReac Type Severity Reaction Status Date / Time aspirin Allergy Severe HIVES, SOB Verified 01/02/22 00:45 Iodinated Contrast Media Allergy Severe "CAUSED Verified 01/02/22 00:45 ASTHMA ATTACK" & HIVES ipratropium Allergy Severe SHORTNESS Verified 01/02/22 00:45 OF BREATH metaproterenol [From Alupent] Allergy Severe EYES AND Verified 01/02/22 00:45 FACE SWELLING, SEVERE WHEEZING NSAIDS (Non-Steroidal Allergy Severe Hives Verified 01/02/22 00:45 Anti-Inflamma Penicillins Allergy Severe SOB, HIVES Verified 01/02/22 00:45 sotalol Allergy Severe increased Verified 01/02/22 00:45 breathing problems Sulfa (Sulfonamide Allergy Severe Anaphylaxis Verified 01/02/22 00:45 Antibiotics) tiotropium Allergy Severe SYMPTOMS Verified 01/02/22 00:45 [From Spiriva with GOT WORSE HandiHaler] INSTEAD OF BETTER WITH BREATHING arformoterol Allergy Intermediate TACHYCARDIA Verified 01/02/22 00:45 aspartame Allergy Intermediate HIVES, Verified 01/02/22 00:45 ITCHY ciprofloxacin Allergy Intermediate WHEEZING, Verified 01/02/22 00:45 NAUSEA clarithromycin [From Biaxin] Allergy Intermediate Unknown, ? Verified 01/02/22 00:45 WHEEZING , OR NAUSEA ? Fish Containing Products Allergy Intermediate BODY CAN'T Verified 01/02/22 00:45 ABSORB fish derived Allergy Intermediate Unknown Verified 01/02/22 00:45 latex Allergy Intermediate ITCHY/RASH Verified 01/02/22 00:45 nickel Allergy Intermediate RASH & Verified 01/02/22 00:46 BLISTERS pioglitazone [From Actos] Allergy Intermediate RETAINED Verified 01/02/22 00:46 FLUID povidone Allergy Intermediate BLISTER Verified 01/02/22 00:46 WITH TAPE shellfish derived Allergy Intermediate BODY CAN'T Verified 01/02/22 00:46 ABSORB, "SMELL LIKE A FISH" sucralose Allergy Intermediate Wheezing Verified 01/02/22 00:46 [From Splenda (sucralose)] adhesive Allergy Mild BLISTERS Verified 01/02/22 00:46 WITH TAPE apixaban [From Eliquis] Allergy Mild SEE NOTES Verified 01/02/22 00:46 BELOW banana Allergy Mild "FEELS Verified 01/02/22 00:46 LIKE PEACH FUZZ IN MOUTH" chlorhexidine Allergy Mild BLISTERY Verified 01/02/22 00:46 RASH clindamycin Allergy Mild rash Verified 01/02/22 00:46 doxycycline Allergy Mild rash Verified 01/02/22 00:46 psyllium [From Metamucil] AdvReac Intermediate bloating Verified 01/02/22 00:46 meperidine AdvReac Mild Gastrointestinal Verified 01/02/22 00:46 Upset, N/V metformin [From Riomet] AdvReac Mild DIARRHEA Verified 01/02/22 00:46 WITH MORE THAN 1 A DAY morphine AdvReac Mild Gastrointestinal Verified 01/02/22 00:46 Upset,N/V tapentadol [From Nucynta] AdvReac Mild Nausea and Verified 01/02/22 00:46 vomiting egg AdvReac Unknown Unknown Verified 01/13/22 14:14 Egg Derived AdvReac Unknown Unknown Verified 01/13/22 14:14 soy AdvReac Unknown Unknown Verified 01/13/22 14:14 soybean AdvReac Unknown Unknown Verified 01/13/22 14:14 stevioside [From Stevia] AdvReac Unknown Unknown Verified 01/23/22 10:51 Consultations 01/02/22 00:34 ED Decision to Admit Stat 01/02/22 03:18 Consult Cardiology Routine Consult Nephrology Routine 01/09/22 09:28 Consult Vascular Surgery Routine 01/14/22 14:15 Consult Palliative Care Routine 02/20/22 23:18 Consult Raw Shellfish Preparer Stat Procedures Performed Operation Date: 01/10/22 10:30 Actual Procedures p Insertion of Perm Cath, Right Internal Jugular Approach, Ultrasound Localization of Right Internal Jugular Vein, Fluroscopy for Positioning(Right) - Byron Irby MD Ordered Studies 01/02/22 01:26 CT abd pelvis wo con Urgent 01/02/22 01:28 CT chest diagnostic wo con Urgent 01/10/22 07:09 EV cvc insrt tunnel wo prt/equipment analyst Routine 01/10/22 07:10 US EV guide vascular access Routine 01/12/22 08:06 CT head/brain wo con Urgent Hospital Course (1) History of noncompliance with medical treatment: (2) Congestive heart failure: (3) Leg edema: Patient is a 76 yr female with H/O DM II, hypothyroidism, hyperlipidemia, COPD, on chronic oxygen baseline 3 liters oxygen, sleep apnea not on CPAP - intolerant as per the patient, paroxysmal atrial fibrillation, cor pulmonale, chronic essential hypertension, morbid obesity, irritable bowel syndrome, stage III chronic kidney disease, mixed stress and urge incontinence, chronic pain syndrome, TIA. Patient presented 01/01 to our ED with complaint of progressive fluid retention along with worsening shortness of breath, denies fever and aspiration, reports compliance with home medication. 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 Acute Metabolic Encephalopathy -POA Likely multifactorial: Hypercarbia,Uremia, Hyponatremia, Medications H/O COPD and sleep apnea and intolerance to CPAP and/or BiPAP Chronic Oxygen dependency: 3L at rest and 4L with activity at baseline Acute on chronic heart failure with preserved ejection fraction Possible cardiorenal syndrome Concern for HCAP UTI / CAUTI : Pt w/ bob at home (per patient after her last discharge), urine Cx +ve for ESBL UTI STACY with CKD Sleep apnea CPAP intolerant DM II Hypothyroidism Afib RVR: Dysphagia COPD Sleep apnea Chronic pain Anemia of chronic disease: Patient deteriorated despite aggressive management Dialysis discontinue Appreciate palliative care input Family understands and agrees with current management Currently on comfort measures only Code Status DNI/DNR Patient while on comfort measures Date and Time of Date of : 02/21/22 Time of : 22:02 Total Time Total Time Spent Total Time Spent (In Minutes): 55 minutes Discharge Plan Discharge Items Patient Disposition: Discharge Diagnosis: Acute Metabolic Encephalopathy Likely multifactorial: Hypercarbia,Uremia, Hyponatremia, Medications H/O COPD and sleep apnea and intolerance to CPAP and/or BiPAP Chronic Oxygen dependency: 3L at rest and 4L with activity at baseline Acute on chronic heart failure with preserved ejection fraction Possible cardiorenal syndrome Concern for HCAP UTI / CAUTI : Pt w/ bob at home (per patient after her last discharge), urine Cx +ve for ESBL UTI STACY with CKD Sleep apnea CPAP intolerant DM II Hypothyroidism Afib RVR: Dysphagia COPD Sleep apnea Chronic pain Anemia of chronic disease Other Date/Time: 02/21/22 22:02
== END 2022-02-21 23:59 | disposition expired | DRG 291 ==
LOC: ED 21:47 → SUATTDRO 01-02 01:32 → 2E 01-02 01:32 → 2W 02-03 14:50 → 1E 02-21 00:05
DX: Z91.02 Food additives allergy status; Z91.041 Radiographic dye allergy status; Z79.899 Other long term (current) drug therapy; Z91.19 Patient's noncompliance with other medical treatment and regimen; Z99.81 Dependence on supplemental oxygen; Z91.013 Allergy to seafood; G89.29 Other chronic pain; Z87.440 Personal history of urinary (tract) infections; E66.2 Morbid (severe) obesity with alveolar hypoventilation; E87.1 Hypo-osmolality and hyponatremia; Z91.012 Allergy to eggs; I48.92 Unspecified atrial flutter; N17.9 Acute kidney failure, unspecified; Z79.84 Long term (current) use of oral hypoglycemic drugs; T50.905A Adverse effect of unspecified drugs, medicaments and biological substances, initial encounter; Z88.8 Allergy status to other drugs, medicaments and biological substances; G93.41 Metabolic encephalopathy; D63.8 Anemia in other chronic diseases classified elsewhere; Z83.3 Family history of diabetes mellitus; Z66 Do not resuscitate; Z88.0 Allergy status to penicillin; Z88.6 Allergy status to analgesic agent; E11.22 Type 2 diabetes mellitus with diabetic chronic kidney disease; G92.8 Other toxic encephalopathy; I50.33 Acute on chronic diastolic (congestive) heart failure; Z88.2 Allergy status to sulfonamides; Z91.018 Allergy to other foods; B96.20 Unspecified Escherichia coli [E. coli] as the cause of diseases classified elsewhere; Z82.5 Family history of asthma and other chronic lower respiratory diseases; U09.9 Post COVID-19 condition, unspecified; I95.9 Hypotension, unspecified; Z88.5 Allergy status to narcotic agent; Z79.890 Hormone replacement therapy; Z91.048 Other nonmedicinal substance allergy status; I13.2 Hypertensive heart and chronic kidney disease with heart failure and with stage 5 chronic kidney disease, or end stage renal disease; J44.0 Chronic obstructive pulmonary disease with (acute) lower respiratory infection; E03.9 Hypothyroidism, unspecified; R13.10 Dysphagia, unspecified; J96.22 Acute and chronic respiratory failure with hypercapnia; Y84.6 Urinary catheterization as the cause of abnormal reaction of the patient, or of later complication, without mention of misadventure at the time of the procedure; N17.0 Acute kidney failure with tubular necrosis; Z86.73 Personal history of transient ischemic attack (TIA), and cerebral infarction without residual deficits; Z88.1 Allergy status to other antibiotic agents; N18.6 End stage renal disease; T83.511A Infection and inflammatory reaction due to indwelling urethral catheter, initial encounter; E87.2 Acidosis; I27.81 Cor pulmonale (chronic); J18.9 Pneumonia, unspecified organism; Z95.5 Presence of coronary angioplasty implant and graft; N18.30 Chronic kidney disease, stage 3 unspecified; N39.0 Urinary tract infection, site not specified; Z91.040 Latex allergy status; I48.0 Paroxysmal atrial fibrillation; Z68.42 Body mass index [BMI] 45.0-49.9, adult; J96.21 Acute and chronic respiratory failure with hypoxia